=== PATIENT | female | born 1940 | race Caucasian/White ===

== ENCOUNTER → 2016-10-24 | Outpatient (CLI) | payer OTHER ==
[~2016-10-24] MED LIST: AMIO200T4 PO; CEPH500C2 PO; CIPR1TAB11 PO; CLBPO15 TOP; CLOP1TAB15 PO; ENOX30IN4 SQ; FURO-85 PO; GARL400T4 PO; HMLI7525 SC; LABE100T23 PO; LABE300T PO; LEVO50TA6 PO; MAGN400T6 PO; MULT-506 PO; OMEG10007 PO; POTA20TA16 PO; SNTONWC TOP; TRMO115 TOP; VITA400C15 PO; VNTHFA/IN INH; XRL10 PO; ZNTT/150 PO
[2016-10-24 10:42] LABS: BASO % 0.7 %; BASO ABS # 0.05 K/uL (0-0.2); COMPLETE YES; HEMATOCRIT 42.2 % (37-47); IG% 0.1 %; LYMPH % 25.4 %; LYMPH ABS # 1.91 K/uL (1.2-3.4); MEAN CELL VOLUME 96.6 fL (80-100); MEAN CORPUSCULAR HEMOGLOBIN 32.3 pg (25-34); MEAN CORPUSCULAR HGB CONC 33.4 g/dl (32-36); MONO % 7.3 %; NEUT % 61.5 %; PLATELET COUNT 238 K/uL (130-400); RED BLOOD COUNT 4.37 M/uL (4.2-5.4); WHITE BLOOD COUNT 7.53 K/uL (4.8-10.8)
[2016-10-24 10:55] LABS: ALT/SGPT 28 U/L (12-78); BLOOD UREA NITROGEN 26 mg/dl (7-18); BUN/CREATININE RATIO 16.5 (10-20); CALCIUM 8.8 mg/dl (8.5-10.1); CARBON DIOXIDE 30 mmol/L (21-32); CHLORIDE 104 mmol/L (98-107); GLUCOSE 153 mg/dl (70-99); POTASSIUM 4.5 mmol/L (3.5-5.1); SODIUM 140 mmol/L (136-145)
[2016-10-24 11:06] LABS: ALB/GLOB RATIO 1.1 (0.9-2); ALKALINE PHOSPHATASE 112 U/L (45-117); AST/SGOT 10 U/L (15-37); CHOLESTEROL 354 mg/dl (0-200); CHOLESTEROL/HDL RATIO 5.3; HDL CHOLESTEROL 67 mg/dl; LDL CHOLESTEROL CALCULATED 257 mg/dl; TRIGLYCERIDES 148 mg/dl (0-150); VERY LOW DENSITY LIPOPROT CALC 30 mg/dl
[2016-10-24 11:38] LABS: ESTIMATED AVERAGE GLUCOSE 146 mg/dl; HA1C FLAG Normal (Normal)
== END | disposition home or self-care (01) ==
LOC: C.LAB1850 09:40
PROVIDERS: ATTEND Internal Medicine
DX: Z00.00 Encounter for general adult medical examination without abnormal findings (principal); I10 Essential (primary) hypertension; E11.9 Type 2 diabetes mellitus without complications; E78.5 Hyperlipidemia, unspecified; E03.9 Hypothyroidism, unspecified; I42.9 Cardiomyopathy, unspecified; R00.1 Bradycardia, unspecified

== ENCOUNTER → 2017-05-08 | Outpatient (CLI) | payer OTHER ==
[2017-05-08 12:58] LABS: ALT/SGPT 25 U/L (12-78); AST/SGOT 14 U/L (15-37); BLOOD UREA NITROGEN 30 mg/dl (7-18); BUN/CREATININE RATIO 17.6 (10-20); CALCIUM 8.9 mg/dl (8.5-10.1); CARBON DIOXIDE 28 mmol/L (21-32); CHLORIDE 108 mmol/L (98-107); GLUCOSE 95 mg/dl (70-99); POTASSIUM 4.4 mmol/L (3.5-5.1); SODIUM 143 mmol/L (136-145)
[2017-05-08 13:06] LABS: ESTIMATED AVERAGE GLUCOSE 157 mg/dl; HA1C FLAG Normal (Normal)
[2017-05-08 13:09] LABS: ALB/GLOB RATIO 0.9 (0.9-2); ALKALINE PHOSPHATASE 97 U/L (45-117); CHOLESTEROL 297 mg/dl (0-200); CHOLESTEROL/HDL RATIO 6.2; HDL CHOLESTEROL 48 mg/dl; LDL CHOLESTEROL CALCULATED 214 mg/dl; TRIGLYCERIDES 176 mg/dl (0-150); VERY LOW DENSITY LIPOPROT CALC 35 mg/dl
[2017-05-08 13:11] LABS: BASO % 0.4 %; BASO ABS # 0.03 K/uL (0-0.2); COMPLETE YES; EOS % 3.5 %; HEMATOCRIT 41.5 % (37-47); IG% 0.1 %; LYMPH % 24.9 %; LYMPH ABS # 1.87 K/uL (1.2-3.4); MEAN CELL VOLUME 99.8 fL (80-100); MEAN CORPUSCULAR HEMOGLOBIN 32.2 pg (25-34); MEAN CORPUSCULAR HGB CONC 32.3 g/dl (32-36); MEAN PLATELET VOLUME 10.9 fL (7.4-10.4); MONO % 7.4 %; NEUT % 63.7 %; PLATELET COUNT 261 K/uL (130-400); RED BLOOD COUNT 4.16 M/uL (4.2-5.4); WHITE BLOOD COUNT 7.52 K/uL (4.8-10.8)
== END | disposition home or self-care (01) ==
LOC: C.LABPBG 07:44
PROVIDERS: ATTEND Internal Medicine
DX: E78.5 Hyperlipidemia, unspecified (principal); I42.9 Cardiomyopathy, unspecified; E03.9 Hypothyroidism, unspecified; N18.2 Chronic kidney disease, stage 2 (mild); E11.9 Type 2 diabetes mellitus without complications

== ENCOUNTER → 2017-05-19 | Day surgery (SDC) | payer OTHER ==
[2017-05-17 08:17] VITALS: BMI 41.0
[~2017-05-19] VITALS: Ht 162.6 cm; Wt 109.1 kg
[2017-05-19] VITALS (8 sets, daily range): BP systolic 107–158; BP diastolic 64–88; PULSE 68–84; TEMP 36.5–37.4; O2SAT 92–97; Ht 162.6 cm; Wt 109.1 kg
[~2017-05-19] MED LIST changes: +CEFAZOLIN 2000 MG/60 ML D5W 60 ML IV SCH; -ENOX30IN4 SQ; +FENTANYL CITRATE INJ 50 MCG/1 ML 2 ML VIAL ONE; +HEPARIN SOD (PORCINE) 1000 UNIT/ML 10 ML VIAL ONE; +IODIXANOL (VISIPAQUE) 270 MG/ML 150ML FLUSH ONE; -LABE300T PO; +LIDOCAINE HCL 1% 20 ML VIAL INJ ONE; +MIDAZOLAM HCL 1 MG/ML 2ML VIAL ONE; +SODIUM BICARBONATE IV SCH; +SODIUM CHLORIDE 0.9% 1000ML 1,000 ML IV SCH; +WATER IV SCH; +[UNRECOGNIZED DRUG - OTHER] IV SCH
--- NOTE | 2017-05-19 07:14 | History and Physical ---
History & Physical Date of Service May 19, 2017. History & Physical CC: Severe right lower extremity claudication HPI: Mrs. Barry states that while ambulating, she develops a very tight sensation in her right calf, which causes her to be unable to take another step. She states that this occurs after walking approximately 1 aisle at the grocery store and that it occurred walking into my office from the parking lot. She says she is unable to walk even an entire block before having to stop and rest her leg. She denies any tissue loss or rest pain. She denies any symptoms in her left leg. Additionally, when using her left arm above her head , such as to style her hair, she has noticed a severe tiredness which comes on in her left arm. If her arm is down and she is utilizing it, it does not appear to be as significant of a problem; but the patient is right-handed, which means that she uses her left arm for very few things. She denies any symptoms of cerebrovascular insufficiency. She also denies any symptoms of transient ischemic attack, including unilateral vision changes or transient blindness. She also denies any unilateral weakness, numbness or tingling in her extremities. She denies any facial droop or difficulty or inability to speak or swallow. She denies any history of previous stroke and denies any history of vascular surgery in the past. She does admit to some bilateral lower extremity edema and vein problems as well. She had undergone bilateral CEA's earlier this year Imaging performed prior to today's appointment at the [facility] did demonstrate a significant stenosis of her right distal SFA with a right RYLIE of 0.58 in comparison to her left leg, which was 0.84. Patient denies headaches, fevers, chills, dizziness, chest pain, shortness of breath, abdominal pain, nausea, vomiting, diarrhea, constipation, dysuria, hematuria, rest pain or ulceration. HER ALLERGIES INCLUDE DIABETIC TABS, LIPITOR AND MORPHINE. Her home medications are reconciled in the chart and include the following: Amiodarone, fish oil, garlic, Humalog, labetalol, magnesium oxide, multivitamins , Plavix, potassium chloride, vitamin E and Xarelto. Her past medical history is positive for diabetes mellitus, hypercholesterolemia , coronary artery disease, superficial thrombophlebitis, atrial flutter, peripheral vascular disease, aortic valve disorder, cardiomyopathy, chronic kidney disease stage II, peripheral neuropathy, gastroesophageal reflux, hypertension, low-back pain, mitral regurgitation, PVCs, congestive heart failure. Her past surgical history is positive for appendectomy, cataract surgery, section, cholecystectomy, hysterectomy, oophorectomy bilateral, and cardiac catheterization as well as electrical cardioversion. Her family history is positive for diabetes and heart disease in her mother and rectal cancer in her brother. Her social history is negative for tobacco, alcohol or drug use. Her review of systems is negative for fatigue, fever, sweats, weight loss. She does admit exercise intolerance due to her right leg discomfort. She denies vision changes or photophobia, ear pain, sinus problems or sore throat, cough, shortness of breath, hemoptysis, chest pain, palpitations or syncope. She does admit mild bilateral lower extremity edema. She denies abdominal pain, nausea, vomiting, diarrhea or constipation, muscle weakness, headaches, dizziness, numbness or seizures. On physical examination, her vital signs today were as follows: A blood pressure of 104/78 in the left arm, 142/68 in the right arm, heart rate of 60, oxygen saturation of 98% on room air. Patient is 66 inches tall and weighs 105 kg. Constitutional: A healthy-appearing, well-nourished, well-developed elderly female in no acute distress. She ambulates without assistance and is active, alert and oriented x4 with normal recent and remote memory. Her head is normocephalic and atraumatic. EOMI. ENMT: No hearing loss, rhinorrhea or pharyngeal erythema. Her neck is supple and nontender with a midline trachea without masses or crepitus. Her lung exam demonstrates no dyspnea. Lungs are clear to auscultation bilaterally, although are somewhat decreased throughout. Her cardiovascular exam demonstrates a nondisplaced apical impulse with a regular rate and rhythm with a systolic ejection murmur. Her peripheral pulses are full and equal in all extremities unless otherwise noted. Specifically, they are normal in her right brachial, radial, ulnar and her bilateral femoral. Her left brachial is +1. Her left radial is +1 and her ulnar is nonpalpable on the left. She does have brisk capillary refill in her upper extremities, full, equal strength and no sign of distal ischemia. Her lower extremities demonstrate nonpalpable DP pulses. She has a faint +1 PT on the right and a +2 PT on the left. She has brisk capillary refill to both feet and no sign of distal ischemia at this time. Her abdomen is soft and nontender with normoactive bowel sounds in all 4 quadrants without guarding or rebound. There is no flank or CVA tenderness. I am unable to appreciate any pulsatile mass. Patient does demonstrate bilateral carotid bruits with no abdominal or femoral bruits noted. Musculoskeletal exam demonstrates normal tone and strength for age. Her bilateral upper extremities demonstrate no cyanosis, edema, clubbing, varicosities or ulcers. Her bilateral lower extremities do demonstrate +1 edema. She has multiple varicosities. There is no erythema from her cord or warmth noted. There are no ulcerations. Neurologically, she has briskly intact cranial nerves and grossly intact sensation. ASSESSMENT: 1. Peripheral arterial disease with claudication of the right leg. 2. 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 PLAN: Patient is admitted for a right lower extremity arteriogram with possible intervention. I have discussed the risks options and benefits of the procedure with the patient. The patient understands the risks options and benefits and agrees to the procedure.
--- NOTE | 2017-05-19 07:15 | Procedure Note ---
Pre-Mod Sedation Assessment General Date of Moderate Sedation: May 19, 2017. Pre-Sedation Airway Assessment Oral Cavity: Dentures Smoking Status: Never Smoker Mallampati Classification: Class I ASA Classification: Class III Notes The planned sedation has been discussed with the patient and consent obtained. I have identified the patient, determined the appropriateness of sedation and have assessed the patient immediately prior to the procedure. All medicine(s) and interventions are by my order.
--- NOTE | 2017-05-19 08:38 | [facility] Post Operative Brief Note ---
Immediate Operative Summary Operative Date May 19, 2017. Pre-Operative Diagnosis Malfunctioning right upper arm fistula Post-Operative Diagnosis Same Procedure(s) Performed Right upper arm fistulogram SENIOR SCRUM MASTER peripheral venous Moderate conscious sedation (5887 - 5684) Surgeon Bhavana House Mother Surgeon(s) none Estimated Blood Loss 3cc Findings Good thrill, no residual stenosis Specimens none Anesthesia Local with sedation Complication(s) None Disposition
[2017-05-19 08:44] LABS: BUN/CREATININE RATIO 14.6 (10-20); CREATININE 1.6 mg/dl (0.60-1.20)
--- NOTE | 2017-05-19 10:14 | [facility] Post Operative Brief Note ---
Immediate Operative Summary Operative Date May 19, 2017. Pre-Operative Diagnosis Malfunctioning right upper arm fistula Post-Operative Diagnosis Same Procedure(s) Performed Right upper arm fistulogram MOTORIZED [place] peripheral venous Moderate conscious sedation (5607 - 5841) Surgeon Bhavana Chip Tester Surgeon(s) none Estimated Blood Loss 3cc Findings ant tib artery occluded on right Specimens none Anesthesia Local Complication(s) None Disposition
--- NOTE | 2017-05-19 10:17 | Discharge Instructions ---
Discharge Instructions Date of Service May 19, 2017. Visit Reason for Visit: Rle Peripheral Artery Disease W/Claudication Discharge Discharge Diagnosis / Problem: Severe right leg claudication Discharge Goals Goal(s): Diagnostic testing Activity Recommendations Activity Limitations: per Instructions/Follow-up section Anesthesia . Post Anesthesia Instructions: If you have had General Anesthesia or IV Sedation: * Do not drive today. * Resume driving when surgeon permits. * Do not make important decisions or sign legal documents today. * Call surgeon for: 1. Temperature elevations greater than 101 degrees F. 2. Uncontrollable pain. 3. Excessive bleeding. 4. Persistent nausea and vomiting. 5. Medication intolerance (nausea, vomiting or rash). * For nausea and vomiting use only clear liquids such as: tea, soda, bouillon until nausea subsides, then gradually increase diet as tolerated. * If you have any concerns or questions, call your surgeon's office. If physician is unavailable and it is an emergency, call 911 or go to the nearest emergency room. . Instructions / Follow-Up Instructions / Follow-Up Call [phone] to schedule a follow up appointment if one not already scheduled. SPECIAL CARE INSTRUCTIONS: Medications: * Continue to take your medications as directed. If you have been given a prescription for Plavix, please fill it immediately and take as directed. Incision Care: * Your puncture site may have some bruising and minor swelling for about one week. * You will have a small dressing covering your puncture site. You may remove the dressing after 24 hours and shower. You may let the warm soapy water run over it, but be sure to dry the puncture site well and keep it dry. * DO NOT IMMERSE THE INCISION IN A TUB/POOL/etc. UNTIL HEALED. * Puncture sites should be kept covered with a band-aid until it begins to heal. Restrictions: * Depending on whether you leg or arm was punctured to access the arteries, you will be required to lay flat, hold your arm still, or both, for about 4 hours after the procedure to prevent bleeding. * Limit your activity for the first 48 hours. You may walk and go up and down steps. Avoid excessive bending or movement at the puncture site. Possible Complications: * Excessive Swelling - after blood flow is improved you may notice increased swelling in the lower legs. This is a normal response. This usually depends on the amount of blockages in the leg, how long they have been there prior to your procedure and how much blood flow was restored. Elevating your legs will help to improve this. Please notify our office ([phone] ) if the swelling does not go away after lying in bed overnight. * Infection/Drainage/Bleeding - Drainage or bleeding from the puncture site should be minimal. If you have excessive bleeding or drainage, call our office ([phone]) right away. * Pain - You may experience some mild pain or soreness at your puncture site. If your pain does not improve, please contact our office ([phone]). Call your doctor and seek emergent treatment if you develop: * Temperature above 101 degrees * Any fever or chills * Any redness or purulent drainage from the puncture site * Any new dusky/blue colored toes or feet with coolness or sharp or aching pain. SKIN IRRITATION: * You may experience some redness and/or swelling in the area where radiation was administered. If any skin irritation occurs, please contact your family physician. FOLLOW UP VISIT: Keep any scheduled doctor appointments. Diet Recommendations Recommended Home Diet: resume previous diet Procedures Procedures Performed: Right Lower Extremity Angiogram, Mechanical Closure Left Femoral Artery Pending Studies Studies pending at discharge: no Medical Emergencies . Who to Call and When: Medical Emergencies: If at any time you feel your situation is an emergency, please call 911 immediately. . Non-Emergent Contact Non-Emergency issues call your: Surgeon . . "Provider Documentation" section prepared by Anthony Bateman. .
--- NOTE | 2017-05-19 10:28 | [facility] Operative Report ---
Operative Report Operative Date May 19, 2017. Pre-Operative Diagnosis right lower extremity claudication Post-Operative Diagnosis same Procedure(s) Performed Right Lower Extremity Angiogram, Mechanical Closure Left Femoral Artery Surgeon Dr. Bateman Database Specialist Surgeon(s) none Estimated Blood Loss 5 ml Findings right ant tibial artery occlusion Specimens none Anesthesia Local Complication(s) None Disposition Indications This is a 76-year-old white female who has significant claudication of her right lower extremity at 100 feet. She had noninvasive testing which showed indices of 0.58 of the right lower extremity. Arteriography and possible intervention was recommended. She understood the risks options and benefits and agreed to go ahead with this procedure. Description of Procedure The patient was taken to the angiogram suite and placed n the supine position. The groins were then prepped and draped in a sterile manner. Local anesthetic was administered to the left groin. A percutaneous puncture was made of the left common femoral artery. An 035 wire was inserted followed by a 5 [place] sheath. Using a rim catheter and an .035 Glidewire the right iliac system was cannulated from left side. The rim catheter was passed down to the external iliac artery origin. Hand injections were then performed of the right lower extremity. These showed the external iliac, common femoral, profunda femoral, and superficial femoral arteries to be patent. There is very mild atherosclerotic changes throughout with no significant narrowing. The superficial femoral artery and popliteal artery were patent in their entirety again with some mild atherosclerotic changes but no significant narrowing. 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 The peroneal and posterior tibial arteries were patent with the posterior tibial artery filling the foot directly and the peroneal artery filling the foot via collaterals. I cannot see any reconstitution of the anterior tibial artery on the right side. No significant lesions were noted to undergo any intervention at this time. The rim catheter was then pulled back and advanced into the aorta. Aortogram and an iliac angio was performed. This showed again the aorta and bilateral common iliac arteries to be patent with mild atherosclerotic changes. The catheter was then removed. Hand injection was done through the sheath on the left side showing the puncture to be anterior on the common femoral artery. A star closure device was then used to close the puncture site on the left side. Adequate hemostasis was noted. Sterile dressings were applied and the puncture and the patient left the angiogram suite in good condition and tolerated the procedure well. I attest to the content of the Intraoperative Record and any orders documented therein. Any exceptions are noted below.
== END | disposition home or self-care (01) ==
LOC: C.ACU 07:03
PROVIDERS: ATTEND Surgery Vascular Surgery
DX: I73.9 Peripheral vascular disease, unspecified (principal); I13.0 Hypertensive heart and chronic kidney disease with heart failure and stage 1 through stage 4 chronic kidney disease, or unspecified chronic kidney disease; E11.9 Type 2 diabetes mellitus without complications; E78.00 Pure hypercholesterolemia, unspecified; I25.10 Atherosclerotic heart disease of native coronary artery without angina pectoris; E11.51 Type 2 diabetes mellitus with diabetic peripheral angiopathy without gangrene; N18.2 Chronic kidney disease, stage 2 (mild); I12.9 Hypertensive chronic kidney disease with stage 1 through stage 4 chronic kidney disease, or unspecified chronic kidney disease; K21.9 Gastro-esophageal reflux disease without esophagitis; I50.9 Heart failure, unspecified; Z79.899 Other long term (current) drug therapy; Z79.4 Long term (current) use of insulin; Z79.02 Long term (current) use of antithrombotics/antiplatelets

== ENCOUNTER 2017-10-10 02:56 | Inpatient (IN) | payer OTHER ==
[~2017-10-10] VITALS: Ht 165.1 cm; Wt 110.1 kg
[2017-10-10] VITALS (7 sets, daily range): BP systolic 110–172; BP diastolic 72–100; PULSE 68–82; TEMP 36.5–37.2; O2SAT 94–97; Ht 165.1 cm; Wt 110.1 kg
[~2017-10-10 02:56] MED LIST changes: -CEFAZOLIN 2000 MG/60 ML D5W 60 ML IV SCH; -CLBPO15 TOP; -FENTANYL CITRATE INJ 50 MCG/1 ML 2 ML VIAL ONE; -HEPARIN SOD (PORCINE) 1000 UNIT/ML 10 ML VIAL ONE; -HMLI7525 SC; -IODIXANOL (VISIPAQUE) 270 MG/ML 150ML FLUSH ONE; -LABE100T23 PO; +LABE100T3 PO; -LEVO50TA6 PO; -LIDOCAINE HCL 1% 20 ML VIAL INJ ONE; -MAGN400T6 PO; -MIDAZOLAM HCL 1 MG/ML 2ML VIAL ONE; -MULT-506 PO; -OMEG10007 PO; -POTA20TA16 PO; -SNTONWC TOP; -SODIUM BICARBONATE IV SCH; -SODIUM CHLORIDE 0.9% 1000ML 1,000 ML IV SCH; -TRMO115 TOP; -VNTHFA/IN INH; -WATER IV SCH; -ZNTT/150 PO; -[UNRECOGNIZED DRUG - OTHER] IV SCH
[2017-10-10] MEDS ORDERED: FUROSEMIDE 40 MG/4 ML VIAL IV STA (03:16)
--- NOTE | 2017-10-10 03:16 | EMERGENCY ROOM VISIT NOTE ---
History Report prepared by Liliam: Santhosh Chacon Under the Supervision of: Dr. Dorina Lacey D.O. First contact with patient: 02:58 Chief Complaint: CHEST PAIN Stated Complaint: CHEST PAIN History of Present Illness The patient is a 77 year old female who presents to the Emergency Room with complaints of sharp chest pain that began 3 hours ago. She rates her pain an 8/ 10 in severity. She has a past medical history of bronchitis that occurred a couple weeks ago and resolved. The patient went to sleep last night about 6 hours ago. She suddenly began to have this chest pain with shortness of breath. Her pain is radiating down her left arm. She is not normally on oxygen at home and she was hypoxic on arrival on room air at 80% per nursing staff. On 4L of oxygen, her saturation kaiser to the 90's. She notes that she was completely at baseline prior to going to bed. She is on Lasix and Xarelto and has been taking them normally without missing any doses. She denies any abnormal swelling to her extremities. Source of History: patient Onset: 3 hours ago Position: chest Symptom Intensity: 8/10 Quality: sharp Timing: constant Associated Symptoms: + SOB Note: Her pain is radiating down her left arm. She denies any abnormal swelling in her extremities. Review of Systems See HPI for pertinent positives & negatives. A total of 10 systems reviewed and were otherwise negative. Past Medical & Surgical Medical Problems: (1) Acute kidney failure (2) Atrial flutter (3) Carotid stenosis, bilateral (4) Carotid stenosis, right (5) Cellulitis (6) Congestive heart failure (7) Coronary artery disease (8) Diabetes (9) H/O acute myocardial infarction (10) HTN (hypertension) (11) L1 vertebral fracture Family History FH: myocardial infarction MOTHER Social History Smoking Status: Never Smoker Alcohol Use: none Drug Use: none Marital Status: Housing Status: lives alone Occupation Status: retired Current/Historical Medications Scheduled Amiodarone HCl (Amiodarone HCl), 200 MG PO QPM Clopidogrel Bisulfate (Clopidogrel), 75 MG PO QPM Collagenase (Santyl), 1 APPLN TOP UD Fish Oil ([place]-3), 1 CAP PO QPM Furosemide (Furosemide), 20 MG PO QAM Garlic (Garlic), 1,000 MG PO QAM Insulin Lispro 75/25 (Humalog Mix 75/25), 1 DOSE SC AMPM Labetalol HCl (Labetalol HCl), 75 MG PO QPM Levothyroxine Sodium (Levothyroxine Sodium), 50 MCG PO QAM Magnesium Oxide (Mag-Ox), 400 MG PO QPM Potassium Ext Rel (Klor-Con), 20 MEQ PO QAM Rivaroxaban (Xarelto), 15 MG PO QAM Vitamin E (Vitamin E 400 Iu), 400 INTER.UNIT PO QAM Scheduled PRN Albuterol Hfa (Ventolin Hfa), 2 PUFFS INH Q6H PRN for Bronchitis Episodes Ranitidine (Zantac), 150 MG PO BID PRN for Heartburn Triamcinolone Acet (Triamcinolone Acetonide), 1 APPLN TOP BID PRN for Rash Allergies Coded Allergies: Adhesives (Verified Allergy, Unknown, REDNESS AND IRRITATION FROM PAIN PATCH, TAPE, 05/19/17) Latex (Verified Allergy, Unknown, SEE COMMENT, 05/19/17) PT QUESTIONS ALLERGY TO LATEX DUE TO ADHESIVES ALLERGY Morphine (Verified Allergy, Unknown, swelling nausea vomiting, 05/19/17) Olmesartan (Verified Allergy, Unknown, UNKNOWN, 05/19/17) Aspirin (Verified Adverse Reaction, Mild, GI SYMPTOMS, 05/19/17) HX BLEEDING ULCER-STOMACH IRRITATION WITH ASPIRIN Ezetimibe (Verified Adverse Reaction, Mild, MUSCLE ACHES, 05/19/17) PER PATIENT Lisinopril (Verified Adverse Reaction, Unknown, LIGHTHEADED AND DIZZY, 05/19) Pioglitazone (Verified Adverse Reaction, Unknown, DIARRHEA NAUSEA, 05/19/17) Statins (Verified Adverse Reaction, Unknown, myalgias and weakness, 05/19/17 ) Physical Exam Vital Signs Date Time Temp Pulse Resp B/P (MAP) Pulse Ox O2 Delivery O2 Flow Rate FiO2 10/10/17 04:35 88 18 147/71 93 Nasal Cannula 4.0 10/10/17 03:32 75 20 196/88 95 Nasal Cannula 4.0 10/10/17 03:15 86 10/10/17 03:06 93 Nasal Cannula 4.0 10/10/17 03:06 93 Nasal Cannula 4.0 10/10/17 03:06 36.8 100 24 196/88 93 Nasal Cannula 4.0 Physical Exam General: Appears to be in respiratory distress with audible rales. HEENT: Head - normocephalic and atraumatic Pupils are equal, round, and reactive to light. Extraocular eye muscles are intact, and sclera are anicteric. Nose - moist nasal mucosa without discharge. Mouth - moist buccal mucosa. Oropharynx is nonerythematous and there is no tonsillar exudate or edema noted. Neck: Supple; no JVD, nuchal rigidity, cervical lymphadenopathy. Heart: Regular rate and rhythm. There is a normal S1 and S2 with no murmurs, clicks, or gallops appreciated. Lungs: Rales and wheezing throughout all lung humphries. Abdomen: Soft, completely nontender, nondistended, with good bowel sounds. There are no palpable pulsatile masses or hepatosplenomegaly. There is no guarding, rigidity, or rebound noted. Extremities: No evidence of cyanosis or clubbing. Trace pedal edema bilaterally. There are easily palpable peripheral pulses. Skin: warm and dry with good turgor and no rashes. Medical Decision & Procedures ER Provider Diagnostic Interpretation: Radiology results as stated below per me: CHEST X-RAY 1 VIEW: Moderate pulmonary edema, cardiomegaly, no infiltrates Laboratory Results 10/10/17 02:50 Red Blood Count 4.25, Mean Corpuscular Volume 99.1, Mean Corpuscular Hemoglobin 33.4, Mean Corpuscular Hemoglobin Concent 33.7, Mean Platelet Volume 11.4, Neutrophils (%) (Auto) 55.3, Lymphocytes (%) (Auto) 31.0, Monocytes (%) (Auto) 8.9, Eosinophils (%) (Auto) 4.1, Basophils (%) (Auto) 0.4, Neutrophils # (Auto) 6.14, Lymphocytes # (Auto) 3.43, Monocytes # (Auto) 0.99, Eosinophils # (Auto) 0.45, Basophils # (Auto) 0.04 10/10/17 02:50 Test 10/10/17 02:50 White Blood Count 11.08 K/uL (4.8-10.8) Red Blood Count 4.25 M/uL (4.2-5.4) Hemoglobin 14.2 g/dL (12.0-16.0) Hematocrit 42.1 % (37-47) Mean Corpuscular Volume 99.1 fL (80-100) Mean Corpuscular Hemoglobin 33.4 pg (25-34) Mean Corpuscular Hemoglobin Concent 33.7 g/dl (32-36) Platelet Count 261 K/uL (130-400) Mean Platelet Volume 11.4 fL (7.4-10.4) Neutrophils (%) (Auto) 55.3 % Lymphocytes (%) (Auto) 31.0 % Monocytes (%) (Auto) 8.9 % Eosinophils (%) (Auto) 4.1 % Basophils (%) (Auto) 0.4 % Neutrophils # (Auto) 6.14 K/uL (1.4-6.5) Lymphocytes # (Auto) 3.43 K/uL (1.2-3.4) Monocytes # (Auto) 0.99 K/uL (0.11-0.59) Eosinophils # (Auto) 0.45 K/uL (0-0.5) Basophils # (Auto) 0.04 K/uL (0-0.2) RDW Standard Deviation 46.3 fL (36.4-46.3) RDW Coefficient of Variation 12.8 % (11.5-14.5) Immature Granulocyte % (Auto) 0.3 % Immature Granulocyte # (Auto) 0.03 K/uL (0.00-0.02) Anion Gap 6.0 mmol/L (3-11) Est Creatinine Clear Calc Drug Dose 33.7 ml/min Estimated GFR () 35.1 Estimated GFR (Non- 30.3 BUN/Creatinine Ratio 18.7 (10-20) Calcium Level 8.7 mg/dl (8.5-10.1) Total Bilirubin 0.2 mg/dl (0.2-1) Aspartate Amino Transf (AST/SGOT) 16 U/L (15-37) Alanine Aminotransferase (ALT/SGPT) 26 U/L (12-78) Alkaline Phosphatase 115 U/L (45-117) Total Creatine Kinase 138 U/L (26-192) Creatine Kinase MB 2.4 ng/ml (0.5-3.6) Creatine Kinase MB Ratio 1.7 (0-3.0) Pro-B-Type Natriuretic Peptide 726 pg/ml (0-1800) Total Protein 7.4 gm/dl (6.4-8.2) Albumin 3.2 gm/dl (3.4-5.0) Globulin 4.2 gm/dl (2.5-4.0) Albumin/Globulin Ratio 0.8 (0.9-2) Thyroid Stimulating Hormone (TSH) 8.430 uIu/ml (0.300-4.500) Chemistry Specimen Hemolysis Laboratory results per my review. Medications Administered Medications (Trade) Dose Ordered Sig/Sedrick Route Start Time Stop Time Status Last Admin Dose Admin Furosemide (Lasix Inj) 40 mg NOW STAT IV 10/10/17 03:16 10/10/17 03:17 DC 10/10/17 03:26 40 MG Procedure Furosemide 40 mg IV ECG Indication: chest pain Rate (beats per minute): 96 Rhythm: normal sinus Findings: LBBB, T-wave inversion (Deep in I and aVL), no ectopy Comparison ECG Date: 17 Aug 2016 Change: T-wave inversions are new compared to old. ED Course 0258: Past medical records reviewed. The patient was evaluated in room B9. A complete history and physical exam was performed. The patient was hypoxic upon arrival here in the emergency department. She was placed on supplemental oxygen. A twelve-lead EKG was obtained as described above. Laboratory studies were drawn. A portable chest x-ray was obtained. 0316: Ordered Lasix Inj 40 mg IV 0328: The patient's chest pain is now gone and she is feeling better. 0438: Upon reevaluation, I discussed findings and results with the patient. She verbalized agreement of the treatment plan. I spoke with Dr. Harmon with Dr. Dan of the [facility]. The patient will be evaluated for further management and care. 0509: The patient informed the hospitalist that she is now having back pain. We will get a CT of her chest to rule out an aortic dissection. Medical Decision The patient is a 77 year old female who presents to the ED with chest pain. Differential diagnosis includes CHF, bronchitis, flash pulmonary edema, pneumonia, aortic dissection, and cardiac ischemia. Laboratory Results: White blood cell count 11, normal H&H, BUN 30, creatinine 1.6 which is baseline , glucose 204, LFTs normal, BNP 726, negative cardiac enzymes This is a 77-year-old female patient who presents to the emergency department after a sudden onset of shortness of breath with audible rales. The patient then developed chest discomfort. EMS was called. Upon their arrival, the patient O2 saturations in the 80s. She was placed on supplemental oxygen. The patient remained hypoxic here in the emergency department. On physical exam, she had significant Rales and chest x-ray confirmed pulmonary edema. Patient was given IV Lasix. I suggested that we place topical nitroglycerin but the patient described severe side effects from previous episodes of using nitroglycerin and declined this med. The patient's vitals remained stable. I discussed the case with the [facility] hospitalist group and they will evaluate for further management. Medication Reconcilliation Current Medication List: was personally reviewed by me Blood Pressure Screening Patient's blood pressure: Elevated blood pressure Addressed as an inpatient Consults Time Called: [phone] Consulting Physician: Dr. Harmon with Dr. Sy CANSECO Returned Call: [phone] Discussed the patient's case. The patient will be evaluated for further management. Impression Primary Impression: Pulmonary edema Additional Impressions: Hypoxia Chest pain Critical Care I have personally spent greater than 30 minutes of critical care time in the direct management of this patient. This includes bedside care, interpretation of diagnostic studies, and testing, discussion with consultants, patient, and family members, and other required patient management activities. This 30 minutes is in excess of all separately billable procedures. Scribe Attestation The scribe's documentation has been prepared under my direction and personally reviewed by me in its entirety. I confirm that the note above accurately reflects all work, treatment, procedures, and medical decision making performed by me. Departure Information Dispostion Being Evaluated By Hospitalist Referrals Boby Reddy M.D. (PCP) Patient Instructions My [facility] Problem Qualifiers Primary Impression: Pulmonary edema Chronicity: acute Qualified Codes: J81.0 - Acute pulmonary edema Additional Impressions: Chest pain Chest pain type: precordial pain Qualified Codes: R07.2 - Precordial pain
[2017-10-10 03:17] LABS: BASO % 0.4 %; BASO ABS # 0.04 K/uL (0-0.2); EOS % 4.1 %; EOS ABS # 0.45 K/uL (0-0.5); HEMATOCRIT 42.1 % (37-47); HEMOGLOBIN 14.2 g/dL (12.0-16.0); IG# 0.03 K/uL (0.00-0.02); LYMPH ABS # 3.43 K/uL (1.2-3.4); MEAN CELL VOLUME 99.1 fL (80-100); MEAN CORPUSCULAR HEMOGLOBIN 33.4 pg (25-34); MEAN CORPUSCULAR HGB CONC 33.7 g/dl (32-36); MEAN PLATELET VOLUME 11.4 fL (7.4-10.4); MONO % 8.9 %; MONO ABS # 0.99 K/uL (0.11-0.59); NEUT % 55.3 %; NEUT ABS # 6.14 K/uL (1.4-6.5); PLATELET COUNT 261 K/uL (130-400); RED CELL DISTRIBUTION WIDTH CV 12.8 % (11.5-14.5); RED CELL DISTRIBUTION WIDTH SD 46.3 fL (36.4-46.3); WHITE BLOOD COUNT 11.08 K/uL (4.8-10.8)
[2017-10-10] MEDS ORDERED: CRD200 PO (03:23)
[2017-10-10] MEDS ORDERED: XRL15 PO (03:23)
[2017-10-10] MEDS ORDERED: LBT300 PO (03:23)
[2017-10-10] MEDS ORDERED: LSX20 PO (03:23)
[2017-10-10] MEDS ORDERED: PLV75 PO (03:23)
[2017-10-10] MEDS ORDERED: GARL10007 PO (03:30)
[2017-10-10] MEDS ORDERED: VITA400C3 PO (03:30)
[2017-10-10 03:39] LABS: ALBUMIN 3.2 gm/dl (3.4-5.0); ALKALINE PHOSPHATASE 115 U/L (45-117); ALT/SGPT 26 U/L (12-78); AST/SGOT 16 U/L (15-37); BLOOD UREA NITROGEN 30 mg/dl (7-18); CALCIUM 8.7 mg/dl (8.5-10.1); CARBON DIOXIDE 24 mmol/L (21-32); CKMB 2.4 ng/ml (0.5-3.6); CREATININE 1.61 mg/dl (0.60-1.20); GLUCOSE 204 mg/dl (70-99); POTASSIUM 3.9 mmol/L (3.5-5.1); SODIUM 137 mmol/L (136-145); TOTAL PROTEIN 7.4 gm/dl (6.4-8.2)
[2017-10-10] MEDS ORDERED: ALBUTEROL HFA 8 GM INHALER INH PRN (05:00)
[2017-10-10] MEDS ORDERED: POLYETHYLENE (MIRALAX) 17 GM PACK PO PRN (05:00)
[2017-10-10] MEDS ORDERED: MAGNESIUM HYDROXIDE SUSP 30 ML UDC PO PRN (05:00)
[2017-10-10] MEDS ORDERED: ACETAMINOPHEN 325 MG TAB PO PRN (05:00)
[2017-10-10] MEDS ORDERED: ALUMINUM/MAGNESIUM/SIMETH (MAALOX MAX) 30 ML UDC PO PRN (05:00)
[2017-10-10] MEDS ORDERED: ONDANSETRON INJ 2 MG/ML 2 ML VIAL IV PRN (05:00)
[2017-10-10] MEDS ORDERED: NITROGLYCERIN 0.4 MG SL PER TAB CHARGE SL PRN (05:00)
[2017-10-10] MEDS ORDERED: RANITIDINE HCL 150 MG TAB PO PRN (05:00)
[2017-10-10] MEDS ORDERED: OPTIRAY 320 IV PRN (05:15)
[2017-10-10] MEDS ORDERED: HMLI7525 SC (05:23)
--- NOTE | 2017-10-10 05:42 | History and Physical ---
History & Physical Date & Time of Service: Oct 10, 2017 at 05:15 Chief Complaint: Chest Pain Primary Care Physician: Boby Reddy M.D. History of Present Illness Source: patient, hospital records The patient is a 77 y/o F who presents with sharp left sided chest pain that began a few hours ago. She says she was trying to use the rest room and felt this pain. She characterizes the pain as sharp and rates it as an 8/10. She was able to sleep for a while and then woke up with sudden shortness of breath. She reports that her pain now radiates under her left shoulder blade. She does not use oxygen at home but was hypoxic when als arrived at about 80%. The pain has improved since being in the ED She reports having a leaky aortic valve Has a history of PAF, for which she is on Xarelto Denies calf tenderness. Denies smoking/ alcohol. Past Medical/Surgical History Medical Problems: (1) Acute kidney failure Status: Resolved (2) Congestive heart failure Status: Resolved (3) Coronary artery disease Status: Chronic (4) Diabetes Status: Chronic (5) H/O acute myocardial infarction Status: Resolved (6) HTN (hypertension) Status: Chronic (7) L1 vertebral fracture Status: Resolved Family History FH: myocardial infarction MOTHER Social History Smoking Status: Never Smoker Smokeless Tobacco Use: No Alcohol Use: none Drug Use: none Marital Status: Occupational Status: retired Immunizations History of Influenza Vaccine: Unknown History of Tetanus Vaccine?: Unknown History of Pneumococcal: Unknown History of Hepatitis B Vaccine: Unknown Multi-Drug Resistant Organisms History of MDRO: No Allergies Coded Allergies: Adhesives (Verified Allergy, Unknown, REDNESS AND IRRITATION FROM PAIN PATCH, TAPE, 05/19/17) Latex (Verified Allergy, Unknown, SEE COMMENT, 05/19/17) PT QUESTIONS ALLERGY TO LATEX DUE TO ADHESIVES ALLERGY Morphine (Verified Allergy, Unknown, swelling nausea vomiting, 05/19/17) Olmesartan (Verified Allergy, Unknown, UNKNOWN, 05/19/17) Aspirin (Verified Adverse Reaction, Mild, GI SYMPTOMS, 05/19/17) HX BLEEDING ULCER-STOMACH IRRITATION WITH ASPIRIN Ezetimibe (Verified Adverse Reaction, Mild, MUSCLE ACHES, 05/19/17) PER PATIENT Lisinopril (Verified Adverse Reaction, Unknown, LIGHTHEADED AND DIZZY, 05/19) Pioglitazone (Verified Adverse Reaction, Unknown, DIARRHEA NAUSEA, 05/19/17) Statins (Verified Adverse Reaction, Unknown, myalgias and weakness, 05/19/17 ) Home Medications Scheduled Amiodarone HCl (Amiodarone HCl), 200 MG PO QPM Clopidogrel Bisulfate (Clopidogrel), 75 MG PO QPM Collagenase (Santyl), 1 APPLN TOP UD Fish Oil ([place]-3), 1 CAP PO QPM Furosemide (Furosemide), 20 MG PO QAM Garlic (Garlic), 1,000 MG PO QAM Insulin Lispro 75/25 (Humalog Mix 75/25), 1 DOSE SC AMPM Labetalol HCl (Labetalol HCl), 75 MG PO QPM Levothyroxine Sodium (Levothyroxine Sodium), 50 MCG PO QAM Magnesium Oxide (Mag-Ox), 400 MG PO QPM Potassium Ext Rel (Klor-Con), 20 MEQ PO QAM Rivaroxaban (Xarelto), 15 MG PO QAM Vitamin E (Vitamin E 400 Iu), 400 INTER.UNIT PO QAM Scheduled PRN Albuterol Hfa (Ventolin Hfa), 2 PUFFS INH Q6H PRN for Bronchitis Episodes Ranitidine (Zantac), 150 MG PO BID PRN for Heartburn Triamcinolone Acet (Triamcinolone Acetonide), 1 APPLN TOP BID PRN for Rash Review of Systems Constitutional: No fever, No chills Eyes: No worsening of vision ENT: No hearing loss Respiratory: + shortness of breath, + dyspnea on exertion, + dyspnea at rest Cardiovascular: + chest pain, No edema, No palpitations Abdomen: No pain, No nausea, No vomiting Genitourinary - Female: No dysuria, No urinary frequency, No urinary urgency Physical Exam Vital Signs Date Time Temp Pulse Resp B/P (MAP) Pulse Ox O2 Delivery O2 Flow Rate FiO2 10/10/17 04:35 88 18 147/71 93 Nasal Cannula 4.0 10/10/17 03:32 75 20 196/88 95 Nasal Cannula 4.0 10/10/17 03:15 86 10/10/17 03:06 93 Nasal Cannula 4.0 10/10/17 03:06 93 Nasal Cannula 4.0 10/10/17 03:06 36.8 100 24 196/88 93 Nasal Cannula 4.0 General Appearance: no apparent distress Eyes: PERRL, EOMI ENT: hearing grossly normal Neck: supple Respiratory/Chest: no accessory muscle use, + decreased breath sounds, + rales Cardiovascular: regular rate, rhythm, no edema Abdomen/GI: normal bowel sounds, non tender, soft Extremities/Musculoskelatal: no pedal edema Neurologic/Psych: respiratory therapy instructor II-XII nml as tested, no motor/sensory deficits, alert, oriented x 3 Diagnostics Laboratory Results Results Past 24 Hours Test 10/10/17 02:50 Range/Units White Blood Count 11.08 4.8-10.8 K/uL Red Blood Count 4.25 4.2-5.4 M/uL Hemoglobin 14.2 12.0-16.0 g/dL Hematocrit 42.1 37-47 % Mean Corpuscular Volume 99.1 80-100 fL Mean Corpuscular Hemoglobin 33.4 25-34 pg Mean Corpuscular Hemoglobin Concent 33.7 32-36 g/dl Platelet Count 261 130-400 K/uL Mean Platelet Volume 11.4 7.4-10.4 fL Neutrophils (%) (Auto) 55.3 % Lymphocytes (%) (Auto) 31.0 % Monocytes (%) (Auto) 8.9 % Eosinophils (%) (Auto) 4.1 % Basophils (%) (Auto) 0.4 % Neutrophils # (Auto) 6.14 1.4-6.5 K/uL Lymphocytes # (Auto) 3.43 1.2-3.4 K/uL Monocytes # (Auto) 0.99 0.11-0.59 K/uL Eosinophils # (Auto) 0.45 0-0.5 K/uL Basophils # (Auto) 0.04 0-0.2 K/uL RDW Standard Deviation 46.3 36.4-46.3 fL RDW Coefficient of Variation 12.8 11.5-14.5 % Immature Granulocyte % (Auto) 0.3 % Immature Granulocyte # (Auto) 0.03 0.00-0.02 K/uL Sodium Level 137 136-145 mmol/L Potassium Level 3.9 3.5-5.1 mmol/L Chloride Level 107 98-107 mmol/L Carbon Dioxide Level 24 21-32 mmol/L Anion Gap 6.0 3-11 mmol/L Blood Urea Nitrogen 30 7-18 mg/dl Creatinine 1.61 0.60-1.20 mg/dl Est Creatinine Clear Calc Drug Dose 33.7 ml/min Estimated GFR () 35.1 Estimated GFR (Non- 30.3 BUN/Creatinine Ratio 18.7 10-20 Random Glucose 204 70-99 mg/dl Calcium Level 8.7 8.5-10.1 mg/dl Total Bilirubin 0.2 0.2-1 mg/dl Aspartate Amino Transf (AST/SGOT) 16 15-37 U/L Alanine Aminotransferase (ALT/SGPT) 26 12-78 U/L Alkaline Phosphatase 115 45-117 U/L Total Creatine Kinase 138 26-192 U/L Creatine Kinase MB 2.4 0.5-3.6 ng/ml Creatine Kinase MB Ratio 1.7 0-3.0 Troponin I < 0.015 0-0.045 ng/ml Pro-B-Type Natriuretic Peptide 726 0-1800 pg/ml Total Protein 7.4 6.4-8.2 gm/dl Albumin 3.2 3.4-5.0 gm/dl Globulin 4.2 2.5-4.0 gm/dl Albumin/Globulin Ratio 0.8 0.9-2 Chemistry Specimen Hemolysis Impression Assessment and Plan This is a 77 y/o F who presents with Chest pain, shortness of breath likely 2/2 CHF exacerbation CHF exacerbation/ Chest pain Echo Lasix 40 mg iv daily AM daily weights I/O Cardio consult Serial Troponin CT chest - due to radiating pain to the back h/o CAD- continue Plavix PAF Continue amiodarone, Xarelto DM 2 Lantus 15 units ISS Accuchecks Hypothyroidism Continue Levothyroxine Check TSH 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 Assessment and Plan: Precordial chest pain/CHF exacerbation/CAD/paroxysmal atrial fibrillation-- The patient will be admitted to telemetry for serial cardiac enzymes, cardiac rhythm monitoring and a 2-D echocardiogram with Dopplers. Already given Lasix in the ED, and will continue Lasix 40 mg IV every morning. Order CT of chest for now without contrast, due to resolution of anterior chest pain but persistence of back pain Continue Plavix, Xarelto, labetalol, potassium and mag oxide Diabetes mellitus-- Continue Humalog mix 75/[address] on Accu-Cheks before meals and at bedtime with NovoLog coverage per scale Hypothyroidism-- Continue levothyroxine sodium 50 g every morning Level of Care Telemetry Advanced Directives Existing Advance Directive: No Existing Living Will: No Existing Power of Charging Crane Operator: No Resuscitation Status FULL RESUSCITATION VTE Prophylaxis VTE Risk Assessment Done? Y/N: Yes Risk Level: Moderate Given or contraindicated: SCD's Social Service Consult None Apply
--- NOTE | 2017-10-10 06:10 | NUR ---
A: PT RECEIVED INTO ROOM S244. PT AMBULATED FROM LITER TO BED WITH MINIMAL ASSISTANCE. GOWN CHANGED, MONITOR APPLIED, VITAL SIGNS OBTAINED. ADMISSION PACKET, CODE WORD, AND FALL AGREEMENT COMPLETED. PT ORIENTED TO ROOM, CALL WRIGHT SYSTEM, HOSPITAL ENVIRONMENT AND UNIT. PT VERBALIZES UNDERSTANDING. CALL WRIGHT WITHIN REACH, CARE CONTINUED BY PRIMARY RN. FAMILY AT BEDSIDE.
[2017-10-10] MEDS ORDERED: GLUCOSE 40% GEL 15 GM TUBE PO PRN (06:30)
[2017-10-10] MEDS ORDERED: GLUCOSE 10 TABS/TUBE PO PRN (06:30)
[2017-10-10] MEDS ORDERED: GLUCAGON FOR INJ 1 MG VIAL SQ PRN (06:30)
[2017-10-10] MEDS ORDERED: DEXTROSE 50% 50 ML SYR IV PRN (06:30)
--- NOTE | 2017-10-10 06:47 | DIAGNOSTIC IMAGING REPORT ---
CHEST ONE VIEW PORTABLE CLINICAL HISTORY: hypoxia dyspnea COMPARISON STUDY: 07/22/2016 FINDINGS: Prominent pulmonary vasculature. Mild cardiomegaly. Diaphragms smooth. IMPRESSION: Congestive heart failure. The above report was generated using voice recognition software. It may contain grammatical, syntax or spelling errors. Electronically signed by: Kyle Villarreal M.D. 10/10/2017 6:46 AM Dictated Date/Time: 10/10/2017 6:45 AM
[2017-10-10] MEDS: LEVOTHYROXINE 50 MCG TAB PO SCH (07:06)
--- NOTE | 2017-10-10 07:22 | DIAGNOSTIC IMAGING REPORT ---
(CHEST) THORAX WITHOUT CT DOSE: 526.67 mGy.cm HISTORY: Atypical chest pain radiating to back TECHNIQUE: Multiaxial CT images of the chest were performed without contrast. A dose lowering technique was utilized adhering to the principles of ALARA. COMPARISON: Chest CT 04/04/2016. FINDINGS: Normal caliber thoracic aorta. Evaluation for an aortic dissection is essentially nondiagnostic due to the lack of intravenous contrast. No pericardial effusion. The heart is borderline enlarged. Small pleural effusions. Subcentimeter mediastinal and hilar lymph nodes do not meet CT criteria for pathologic involvement. Cholecystectomy. The visualized unenhanced liver, spleen, and adrenal glands are unremarkable. No fractures within the visualized osseous structures. No pneumothorax. The central airways are patent. Diffuse interlobular septal thickening with groundglass airspace opacities. IMPRESSION: 1. Diffuse interlobular septal thickening, scattered groundglass airspace opacities, and small bilateral pleural effusions. This is consistent with pulmonary edema. 2. Normal caliber thoracic aorta. 3. Cholecystectomy. Electronically signed by: Sid Rodriguez M.D. 10/10/2017 7:21 AM Dictated Date/Time: 10/10/2017 7:16 AM
[2017-10-10] MEDS ORDERED: SNTONWC TOP (08:08)
[2017-10-10] MEDS ORDERED: TRMO115 TOP (08:08)
[2017-10-10] MEDS ORDERED: VNTHFA/IN INH (08:08)
[2017-10-10] MEDS ORDERED: NURSING VERBAL MED ORDER ONE ×2 (08:45→17:15)
[2017-10-10] MEDS ORDERED: HYDROmorphone INJ 0.5 MG/0.5 ML SYR ONE (08:48)
[2017-10-10] MEDS ORDERED: RIVAROXABAN TAB 15 MG TAB PO SCH (09:00)
--- NOTE | 2017-10-10 09:00 | NUR ---
C/o 4-5 left sided chest pain without radiation. child monitor without ectopy. EKG obtained. Pt declined Nitroglycerine tablet at this time and states "I thought the top of my head would blow off last time". Spoke with Dr Ren regarding pain medication. Order received for IV Dilaudid.
[2017-10-10] MEDS: POTASSIUM CHLORIDE 20 MEQ TABCR PO SCH (09:06)
[2017-10-10] MEDS: INSULIN ASPART 100 UNITS/ML 3 ML PEN SC SCH ×4 (09:10→20:24)
[2017-10-10] MEDS: INSULIN GLARGINE SOLOSTAR 100 UNITS/ML 3 ML PEN SC SCH (09:11)
--- NOTE | 2017-10-10 09:30 | NUR ---
Pt states some relief of chest pain and now rates 3/10 on scale. Declines further pain mediation at this time.
[2017-10-10] MEDS ORDERED: RANI150T85 PO (10:31)
[2017-10-10] MEDS ORDERED: POTA-639 PO (10:31)
--- NOTE | 2017-10-10 11:25 | CARDIOLOGY CONSULTATION ---
DATE OF CONSULTATION: 10/10/2017 DATE OF CONSULTATION: 10/10/2017 CONSULTATION REQUESTED BY: Dr. Ren. REASON FOR CONSULTATION: Heart failure, chest pain. PRIMARY TOPSTITCHER ZIGZAG: Dr. Irizarry. HISTORY OF PRESENT ILLNESS: Mrs. Barry is a very pleasant 77-year-old woman with a complex past medical history including moderate to severe coronary artery disease, moderate nonsevere valvular heart disease, atrial flutter on amiodarone anticoagulation and peripheral artery disease who was admitted last night in the setting of acute onset of chest pain and shortness of breath. The patient is followed by Dr. Irizarry in the outpatient setting. She was last seen by him back in May of this year. The patient states that over the last several months she has noticed a gradual decline and her exercise tolerance due to shortness of breath. Now can walk only around her home before becomes short of breath. However, was in her usual state of health until approximately 3 days prior to admission when he developed what she thought was the flu. She endorsed generalized fatigue with some upper respiratory symptoms. With this she reported decreased appetite. She states she ate only minimal food for the and then last night while in bed approximately around midnight was awoken up with acute shortness of breath while lying flat. Following shortness of breath symptoms progressed to include substernal chest pain as well as some symptoms radiating down her left arm. Symptoms persisted until she received pain medications in the Emergency Department. She was noted on presentation to have pulmonary edema on chest x-ray and received one dose of IV Lasix with adequate diuresis of more than 1300 out since Lasix. She has had continued intermittent chest pain for which she has required continued pain medication since. Her initial troponin was negative. Her EKG showed a previously noted left bundle branch block with sinus tachycardia. PAST MEDICAL HISTORY: 1. Coronary artery disease -- prior heart catheterization in 2014 showed 50-75% ostial RCA stenosis, 50% ostial circumflex stenosis and mild LAD disease. 2. Valvular heart disease, moderate mitral regurgitation, status post SHAUNA in 2014. Also underwent right heart catheterization in April 2015, which showed mild to moderate pulmonary hypertension with PA pressure of 40/20, mean of 32, wedge of 18 and preserved cardiac output/index. 3. Mild presumed nonischemic LV dysfunction. LVEF 45%. 4. Chronic left bundle branch block. 5. Atrial flutter status post prior admission requiring cardioversion in January of 2016. 6. Cerebral vascular disease status post bilateral carotid endarterectomy, most recently right carotid in August 2016. 7. Lower extremity peripheral artery disease followed by Dr. Bateman status post lower extremity angiogram in May 2017 showing mild to moderate SFA/popliteal disease on the right with an occluded anterior tibial and 2-vessel distal runoff. 8. Hypertension. 9. Dyslipidemia. 10. Hypothyroidism. 11. Chronic kidney disease. 12. History of left lower extremity venous ulceration. 13. History of superficial thrombophlebitis. FAMILY HISTORY: No family history of premature coronary disease or sudden cardiac . SOCIAL HISTORY: She lives alone. She is . Denies any active tobacco or significant alcohol use. MEDICATIONS: Include albuterol inhaler, amiodarone 200 mg daily, Plavix 75 mg daily, fish oil, furosemide 20 mg daily, insulin lispro 75/25, labetalol 75 mg q.p.m., levothyroxine, magnesium oxide, potassium, ranitidine, Xarelto 15 mg, triamcinolone cream and vitamin D. REVIEW OF SYSTEMS: A 10-point review of systems completed and otherwise negative unless stated in HPI. PHYSICAL EXAMINATION: VITAL SIGNS: Temperature 36.6, pulse 82, blood pressure 113/75. She is satting 96% on 4 liters. GENERAL: The patient appears comfortable in no acute distress. HEAD, EYES, EARS, NOSE, AND THROAT: Sclera anicteric. Oropharynx is clear. Mucous membranes are moist. NECK: Supple. She has JV extension up to approximately 8 or 9. LUNGS: Have decreased breath sounds at the bases bilaterally. CARDIAC: She is regular. She has a 2-3/6 systolic ejection murmur heard best at the right upper sternal border. ABDOMEN: Soft, nontender, obese. Positive bowel sounds. EXTREMITIES: Warm. She has trace lower extremity edema. She has varicosities and signs of chronic venous insufficiency. She has diminished DP pulses bilaterally. She has 2+ radial pulses bilaterally. NEUROLOGIC: Nonfocal. PSYCHIATRIC: Alert and appropriate. LABORATORY DATA: White blood cell count 11, hemoglobin 14.2, platelets of 261. Sodium 137, potassium of 3.9, BUN 30, creatinine 1.6, random glucose of 204. Initial troponin was negative at 0.015, CK-MB negative at 2.4. ProBNP borderline elevated at 726. Her TSH was elevated at 8.43. EKG showed sinus rhythm with old left bundle branch block. Telemetry reviewed showed no arrhythmias. IMAGING: Chest x-ray showed prominent pulmonary vasculature with mild cardiomegaly consistent with heart failure. Chest CT showed intralobar septal thickening, scattered ground-glass opacities and bilateral small effusions consistent with pulmonary edema. IMPRESSION AND PLAN: 1. Acute decompensated heart failure. 2. Chest pain. 3. History of mild left ventricular dysfunction. 4. Nonsevere valvular heart disease with moderate mitral regurgitation, mild to moderate aortic stenosis and mild to moderate pulmonary hypertension. 5. Atrial flutter on anticoagulation and amiodarone 6. Peripheral artery disease status post bilateral carotid endarterectomies. 7. Hypertension. 8. Chronic kidney disease. 9. Diabetes. 10. Hypothyroidism. Mrs. Barry is here with acute onset of shortness of breath followed by intermittent chest pain starting last night. Her initial cardiac enzymes and EKG have been negative for ischemia. She had pulmonary congestion on initial imaging and new oxygen requirment consistent with acute decompensated heart failure. Etiology of acute exacerbation unclear at this time. She did endorse some initial viral symptoms recently and possible increased recent salt intake. However, with patient's known significant vascular disease, will continue to rule out worsened CAD and/or progression of her valvular heart disease. GOING FORWARD: -- Plan to continue to monitor on telemetry. Cycle cardiac enzymes. -- Repeat transthoracic echocardiogram today. -- May need further ischemic evaluation at some point. -- Continue IV diuresis. Would give additional 40 mg of Lasix today. -- Continue home amiodarone and labetalol. -- Has already received her Xarelto today. May hold pending further evaluation today. -- Continue home clopidogrel. Please contact with any questions. FRANCISCA
[2017-10-10] MEDS ORDERED: MAGN400T6 PO (11:30)
[2017-10-10] MEDS ORDERED: LEVO50TA6 PO (11:39)
[2017-10-10 11:55] LABS: HEMOGLOBIN A1C 7.3 % (4.5-5.6)
[2017-10-10] MEDS: HYDROmorphone INJ 0.5 MG/0.5 ML SYR IV PRN ×2 (12:05→15:00)
--- NOTE | 2017-10-10 12:05 | NUR ---
Pt continues to c/o chest pain to left side of chest and now states it is around to back. Dilaudid dose given. Oxygen saturation 95% on 2L.
--- NOTE | 2017-10-10 12:30 | NUR ---
Reassessment of pt. Continues to c/o chest pain now 5/10 and left hand is numb. Pt declined further pain medication at this time. radiation monitor continues to show NSR with 1st deg heart block. VS stable.
[2017-10-10] MEDS ORDERED: OMEG10007 PO (13:35)
--- NOTE | 2017-10-10 13:50 | NUR ---
Dr Ren in to see pt at bedside. IV Fentanyl given. Repeat EKG complete. Pt resting in bed.
[2017-10-10] MEDS: FENTANYL CITRATE INJ 50 MCG/1 ML 2 ML VIAL IV PRN ×4 (13:52→23:28)
--- NOTE | 2017-10-10 14:01 | Hospitalist Progress Note ---
Hospitalist Progress Note Date of Service Oct 10, 2017. Subjective Pt evaluation today including: conversation w/ patient, conversation w/ solutions delivery consultant (Plastics Scientist) Pt has persisted with CP since it started last night at midnight. Waxing and waning today with pain meds. Fentanyl brought it down to a 3/10, then it came back. Dilaudid here helped a little but then she developed worsening chest pain and left hand numbness after lunch, wonders if it is from the Dilaudid. No SOB, no abd pain. Has some occasional stabbing pains in right side of head. Chest pressure is substernal, wraps around her rib cage, with some radiation to left shoulder and with left hand numbness. Discussed case with Cardiology. Will attempt to get her CP-free and if cannot, will take her to can labeler today. All Other Systems: Reviewed and Negative Objective Vital Signs Date Time Temp Pulse Resp B/P (MAP) Pulse Ox O2 Delivery O2 Flow Rate FiO2 10/10/17 12:05 95 Nasal Cannula 2.0 10/10/17 12:00 Nasal Cannula 4.0 10/10/17 11:44 36.5 68 19 110/72 (85) 97 Nasal Cannula 4.0 10/10/17 08:00 Nasal Cannula 4.0 10/10/17 07:26 36.6 82 19 113/75 (88) 96 Nasal Cannula 4.0 10/10/17 06:10 36.5 78 18 172/100 96 Room Air 10/10/17 04:35 88 18 147/71 93 Nasal Cannula 4.0 10/10/17 03:32 75 20 196/88 95 Nasal Cannula 4.0 10/10/17 03:15 86 10/10/17 03:06 93 Nasal Cannula 4.0 10/10/17 03:06 93 Nasal Cannula 4.0 10/10/17 03:06 36.8 100 24 196/88 93 Nasal Cannula 4.0 Physical Exam General Appearance: WD/WN, no apparent distress Eyes: normal inspection, sclerae normal ENT: hearing grossly normal Neck: trachea midline Respiratory/Chest: no respiratory distress, no accessory muscle use, + crackles (mild at bases bilat) Cardiovascular: regular rate, rhythm, no edema, + systolic murmur (2/6 at left sternal border) Abdomen: normal bowel sounds, non tender, soft, no organomegaly, no pulsatile mass Extremities: non-tender, normal inspection, no pedal edema, no calf tenderness Neurologic/Psychiatric: alert, normal mood/affect, oriented x 3 Skin: normal color, warm/dry, no rash Laboratory Results Last 24 Hours Test 10/10/17 02:50 10/10/17 09:03 10/10/17 10:31 10/10/17 11:14 White Blood Count 11.08 K/uL Red Blood Count 4.25 M/uL Hemoglobin 14.2 g/dL Hematocrit 42.1 % Mean Corpuscular Volume 99.1 fL Mean Corpuscular Hemoglobin 33.4 pg Mean Corpuscular Hemoglobin Concent 33.7 g/dl Platelet Count 261 K/uL Mean Platelet Volume 11.4 fL Neutrophils (%) (Auto) 55.3 % Lymphocytes (%) (Auto) 31.0 % Monocytes (%) (Auto) 8.9 % Eosinophils (%) (Auto) 4.1 % Basophils (%) (Auto) 0.4 % Neutrophils # (Auto) 6.14 K/uL Lymphocytes # (Auto) 3.43 K/uL Monocytes # (Auto) 0.99 K/uL Eosinophils # (Auto) 0.45 K/uL Basophils # (Auto) 0.04 K/uL RDW Standard Deviation 46.3 fL RDW Coefficient of Variation 12.8 % Immature Granulocyte % (Auto) 0.3 % Immature Granulocyte # (Auto) 0.03 K/uL Sodium Level 137 mmol/L Potassium Level 3.9 mmol/L Chloride Level 107 mmol/L Carbon Dioxide Level 24 mmol/L Anion Gap 6.0 mmol/L Blood Urea Nitrogen 30 mg/dl Creatinine 1.61 mg/dl Est Creatinine Clear Calc Drug Dose 33.7 ml/min Estimated GFR () 35.1 Estimated GFR (Non- 30.3 BUN/Creatinine Ratio 18.7 Random Glucose 204 mg/dl Calcium Level 8.7 mg/dl Total Bilirubin 0.2 mg/dl Aspartate Amino Transf (AST/SGOT) 16 U/L Alanine Aminotransferase (ALT/SGPT) 26 U/L Alkaline Phosphatase 115 U/L Total Creatine Kinase 138 U/L Creatine Kinase MB 2.4 ng/ml Creatine Kinase MB Ratio 1.7 Troponin I < 0.015 ng/ml 0.119 ng/ml Pro-B-Type Natriuretic Peptide 726 pg/ml Total Protein 7.4 gm/dl Albumin 3.2 gm/dl Globulin 4.2 gm/dl Albumin/Globulin Ratio 0.8 Thyroid Stimulating Hormone (TSH) 8.430 uIu/ml Chemistry Specimen Hemolysis Bedside Glucose 245 mg/dl 132 mg/dl Estimated Average Glucose 163 mg/dl Hemoglobin A1c 7.3 % Assessment and Plan This is a 77 y/o female with a h/o CAD, Chronic systolic CHF and ischemic CM, Pulm HTN, LISBETH, chronic LBBB, PAF, PAD, DMII, hypothyroidism, CKD stage III, who presents with Chest pain, shortness of breath secondary to acute on chronic systolic CHF. Chest Pain/CAD/Chronic systolic CHF and ischemic CM/Pulm HTN/LISBETH/Chronic LBBB/ PAD- with ongoing CP. Troponin now elevated on second set to 0.119. Has known underlying CAD. Cannot tolerate NTG and declines, morphine makes her sick. Dilaudid not helping. SOB improving with IV lasix/diuresis. CT Chest noncontrast without obvious cause but not good for dissection study. BPs stable -Will try Fentanyl now -check Echo-called for it to be done now -continue Lasix 40 mg iv daily AM -continue Palvix-is not on ASA due to h/o PUD -continue labetalol -is intolerant to statins -daily weights, I/O -Cardio consult appreciated -f/u Serial Troponin -if CP not improving, will take to can labeler today, keep NPO PAF-resolved after DCCV in 2016. 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
--- NOTE | 2017-10-10 14:30 | NUR ---
Pt states chest pain unrelieved after IV Fentanyl but declined need for further pain medication. States "I just don't want to take too much". Remains NSR with 1st deg heart block.
--- NOTE | 2017-10-10 15:00 | NUR ---
Dr Bateman in to see pt. IV dilaudid given. Pt states chest pain is not as bad but continues to rate pain 7/10 and radiates around to back. Pt NPO for possible clinical laboratory science professor today. Awaiting ECHO to be done.
--- NOTE | 2017-10-10 15:30 | NUR ---
ECHO at bedside.
--- NOTE | 2017-10-10 16:45 | NUR ---
Dr Bateman in to see pt and family at bedside. Plan for cath tomorrow. Will hold Xarelto in am. Pt to be NPO after midnight.
--- NOTE | 2017-10-10 16:51 | ECHOCARDIOGRAM REPORT ---
*NOTICE TO RECEIVING REPUBLICAN AGENCY This information is strictly Confidential and protected under [place] law. [place] law prohibits you from making any further disclosure of this information unless further disclosure is expressly permitted by the written consent of the person to whom it pertains or is authorized by law. A general authorization for the release of medical or other information is not sufficient for this purpose. Hospital accepts no responsibility if the information is made available to any other person, INCLUDING THE PATIENT. Interpretation Summary * Name: ERIC ROLDAN Study Date: 10/10/2017 03:06 PM BP: 110/72 mmHg * Patient Location: C.2T\S\S244\S\1 HR: 68 * : 1940 (M/d/) Gender: Female Height: 65 in * Age: 77 yrs Ethnicity: CA Weight: 239 lb * Ordering Physician: Ivy Harmon * Referring Physician: Self, Referred * Performed By: Farzaneh Darling RDCS * * Reason For Study: Chest pain * BSA: 2.1 m2 * -- Conclusions -- * 1. Normal LV size and wall thickness. * 2. Mild to moderate LV dsyfunction. LVEF 40-45%. Moderate inferolateral, inferior hypokinesis. Abnormal septal motion consistent with conduction abnormality. * 3. Normal RV size and function. * 4. Grade II diastolic dysfunction. * 5. Moderate mitral regurgitation. * 6. Mild to moderate aortic stenosis (PV 2.9, MG 21) * 7. Borderline PH. Est PASP 35-40 mmHg. Est RA 3 mmHg. * 8. Compared with prior study on 02/04/2016: No significant changes. Procedure Details * A complete two-dimensional transthoracic echocardiogram was performed (2D, M-mode, Doppler and color flow Doppler). Left Ventricle * The left ventricle is grossly normal size. * There is normal left ventricular wall thickness. * Ejection Fraction = 40-45%. * Moderate inferolateral, inferior hypokinesis. Abnormal septal motion consistent with conduction abnormality. Right Ventricle * The right ventricle is grossly normal size. * The right ventricular systolic function is normal as assessed by tricuspid annular plane systolic excursion (TAPSE) (normal >1.5 cm). Atria * Borderline left atrial enlargement. * Right atrial size is normal. * No ASD detected; PFO is not assessed. Mitral Valve * The mitral valve is grossly normal. * There is no mitral valve stenosis. * There is moderate mitral regurgitation. Tricuspid Valve * There is mild tricuspid regurgitation. Aortic Valve * Mild to moderate valvular aortic stenosis. * There is no significant aortic regurgitation. Pulmonic Valve * The pulmonary valve is inadequately visualized, but the Doppler data is adequate for interpretation. * Pulmonic stenosis is absent. * There is no significant pulmonary regurgitation. Great Vessels * The aortic root and proximal ascending aorta are normal sized. * Normal inferior vena cava size and collapsability with sniff indicates a normal right atrial pressure of 3 mmHg Left Ventricular Diastolic Function * Diastolic dysfunction, Grade II (pseudonormalization pattern). MMode 2D Measurements and Calculations IVSd 0.82 cm LVIDd 5.4 cm LVIDs 4.3 cm LVPWd 0.86 cm IVS/LVPW 0.96 FS 20.9 % EDV(Teich) 143.2 ml ESV(Teich) 83.0 ml EF(Teich) 42.0 % EDV(cubed) 160.1 ml ESV(cubed) 79.4 ml EF(cubed) 50.4 % LV mass(C)d 166.8 grams LV mass(C)dI 78.2 grams/m\S\2 SV(Teich) 60.2 ml SI(Teich) 28.2 ml/m\S\2 SV(cubed) 80.7 ml SI(cubed) 37.8 ml/m\S\2 Ao root diam 2.6 cm Ao root area 5.2 cm\S\2 LA dimension 3.9 cm asc Aorta Diam 3.0 cm LA/Ao 1.5 LVOT diam 1.9 cm LVOT area 2.7 cm\S\2 LVAd ap4 29.0 cm\S\2 LVLd ap4 8.2 cm EDV(MOD-sp4) 84.3 ml EDV(sp4-el) 87.4 ml LVAs ap4 22.0 cm\S\2 LVLs ap4 7.9 cm ESV(MOD-sp4) 51.4 ml ESV(sp4-el) 52.1 ml EF(MOD-sp4) 39.0 % EF(sp4-el) 40.4 % LVAd ap2 28.2 cm\S\2 LVLd ap2 8.9 cm EDV(MOD-sp2) 74.9 ml EDV(sp2-el) 76.0 ml LVAs ap2 20.1 cm\S\2 LVLs ap2 8.1 cm ESV(MOD-sp2) 43.4 ml ESV(sp2-el) 42.0 ml EF(MOD-sp2) 42.0 % EF(sp2-el) 44.7 % LVLd %diff 8.0 % EDV(MOD-bp) 82.8 ml LVLs %diff 3.2 % ESV(MOD-bp) 47.1 ml EF(MOD-bp) 43.2 % SV(MOD-sp4) 32.9 ml SI(MOD-sp4) 15.4 ml/m\S\2 SV(MOD-sp2) 31.5 ml SI(MOD-sp2) 14.7 ml/m\S\2 SV(MOD-bp) 35.8 ml SI(MOD-bp) 16.8 ml/m\S\2 SV(sp4-el) 35.3 ml SI(sp4-el) 16.5 ml/m\S\2 SV(sp2-el) 34.0 ml SI(sp2-el) 15.9 ml/m\S\2 Doppler Measurements and Calculations MV E max chanel 135.8 cm/sec MV A max chanel 95.1 cm/sec MV E/A 1.4 MV dec time 0.24 sec Ao V2 max 281.0 cm/sec Ao max PG 31.6 mmHg Ao max PG (full) 26.9 mmHg Ao V2 mean 205.3 cm/sec Ao mean PG 19.0 mmHg Ao V2 VTI 61.1 cm DESIRE(V,A) 1.1 cm\S\2 DESIRE(V,D) 1.1 cm\S\2 LV V1 max PG 4.8 mmHg LV V1 max 109.1 cm/sec MR max chanel 537.2 cm/sec MR max PG 115.5 mmHg MR mean chanel 426.8 cm/sec MR mean PG 81.6 mmHg MR VTI 199.9 cm SV(Ao) 316.6 ml SI(Ao) 148.4 ml/m\S\2 PA V2 max 95.0 cm/sec PA max PG 3.6 mmHg PA acc slope 911.8 cm/sec\S\2 PA acc time 0.07 sec TR max chanel 302.9 cm/sec PA pr(Accel) 45.7 mmHg
[2017-10-10] MEDS: AMIODARONE 200 MG TAB PO SCH (20:25)
--- NOTE | 2017-10-10 20:25 | NUR ---
A: Patient awake and resting in bed - still complaining of 5/10 left sided chest pain but states "it's not that bad." Requesting to go in bathroom and get washed up. States she does get short of breath with exertion. Aware she is for a catheterization tomorrow and verbalized understanding. SR 70 - 80s on tele. Call strong within reach. Will frequently monitor patient.
[2017-10-10] MEDS: LABETALOL HCL 300 MG TAB PO SCH (20:26)
[2017-10-10] MEDS: MAGNESIUM OXIDE 400 MG TAB PO SCH (20:26)
[2017-10-10] MEDS: CLOPIDOGREL BISULFATE 75 MG TAB PO SCH (20:26)
--- NOTE | 2017-10-10 23:25 | NUR ---
A: Patient awake and resting in bed - still has left sided chest pain radiating to shoulder blade, rates it a 6/10. Lab recently here and giovanny troponin. EKG obtained. Updated Dr Harmon. See EMAR. Aware she is NPO after midnight. Call strong within reach. Will monitor patient.
--- NOTE | 2017-10-10 23:45 | NUR ---
Troponin 0.0963 - Dr Harmon notified. No new orders, will monitor patient.
[2017-10-11] VITALS (16 sets, daily range): BP systolic 90–136; BP diastolic 55–77; PULSE 64–98; TEMP 36.5–37.1; O2SAT 91–97
--- NOTE | 2017-10-11 04:00 | NUR ---
A: Patient assisted to and from bathroom. Rates her chest pain at 3/10 and is refusing any medication at this time. NPO for cardiac cath today. SR 60s on tele. Call strong within reach. Will monitor patient.
[2017-10-11 05:08] LABS: CALCIUM 8.5 mg/dl (8.5-10.1); CREATININE 1.53 mg/dl (0.60-1.20); POTASSIUM 4.4 mmol/L (3.5-5.1)
[2017-10-11] MEDS: LEVOTHYROXINE 50 MCG TAB PO SCH (05:29)
[2017-10-11] MEDS: INSULIN ASPART 100 UNITS/ML 3 ML PEN SC SCH ×4 (07:00→21:00)
--- NOTE | 2017-10-11 08:16 | Cardiology Follow-Up ---
Subjective Subjective Date of Service: Oct 11, 2017. Pt evaluation today including: conversation w/ patient, physical exam, chart review, lab review, review of studies, review of inpatient medication list Additional Details: Still with intermittent pain overnight requiring fentanyl. Somewhat less pain this AM. Denies dyspnea. Negative 2.2 L yesterday. Tele reviewed -- no events Problem List Medical Problems: (1) Atrial flutter with rapid ventricular response Status: Acute (2) Cardiac ischemia Status: Acute (3) Chest pain Status: Acute (4) Chest pain Status: Acute (5) Failure of outpatient treatment Status: Acute (6) Hypoxia Status: Acute (7) Pneumonia Status: Acute (8) Pulmonary edema Status: Acute Review of Systems Constitutional: No fever Eyes: No worsening of vision ENT: No hearing loss Respiratory: + shortness of breath, No cough Cardiac: + chest pain Abdomen: No pain, No nausea Psychiatric: No depression symptoms Heme: No abnormal bleeding/bruising Endo: + fatigue Skin: No rash Objective Vital Signs Last Vital Signs Documentation Date Time Temp Pulse Resp B/P (MAP) Pulse Ox O2 Delivery O2 Flow Rate FiO2 10/11/17 04:00 Nasal Cannula 2.0 10/11/17 03:44 36.5 70 19 120/70 (87) 96 Physical Exam: General Appearance: no apparent distress ENT: hearing grossly normal Neck: trachea midline Respiratory/Chest: no respiratory distress, no accessory muscle use, + decreased breath sounds (at bases bilaterally) Cardiovascular: regular rate, rhythm, no edema, + systolic murmur (2/6 at right sternal border) Abdomen: normal bowel sounds, non tender, soft Extremities: no pedal edema, no calf tenderness Neurologic/Psychiatric: alert, normal mood/affect, oriented x 3 Skin: normal color, warm/dry, no rash Assessment and Plan 1. NSTEMI 2. Prior known moderate multivessel CAD 3. Acute heart failure 4. Atrial flutter 5. Chronic LBBB 6. PAD 7. CKD 8. DM 9. Mod MR/Mild to moderate Still with intermittent chest pain overnight but minimal troponin elevation has peaked and LV function not significantly changed on Echo. On exam today well perfused, with minimal residual congestion. -- Plan for coronary angiography via right radial artery later today. -- Keep NPO, xarelto and lasix held this AM. -- Continue current clopidogrel -- Further recommendations pending findings of cardiac cath. Medications: Current Inpatient Medications Medications (Trade) Dose Ordered Sig/Sedrick Route Start Time Stop Time Status Last Admin Dose Admin Acetaminophen (Tylenol Tab) 650 mg Q4H PRN PO 10/10/17 05:00 11/09/17 04:59 Al Hydrox/Mg Hydrox/Simethicone (Maalox Max Susp) 15 ml Q4H PRN PO 10/10/17 05:00 11/09/17 04:59 Magnesium Hydroxide (Milk Of Magnesia Susp) 30 ml Q12H PRN PO 10/10/17 05:00 11/09/17 04:59 Ondansetron HCl (Zofran Inj) 4 mg Q6H PRN IV 10/10/17 05:00 11/09/17 04:59 Nitroglycerin (Nitrostat Tab) 0.4 mg UD PRN SL 10/10/17 05:00 11/09/17 04:59 Polyethylene (Miralax Powder Packet) 17 gm DAILY PRN PO 10/10/17 05:00 11/09/17 04:59 Albuterol (Ventolin Hfa Inhaler) 2 puffs Q6H PRN INH 10/10/17 05:00 11/09/17 04:59 Amiodarone HCl (Cordarone Tab) 200 mg QPM PO 10/10/17 21:00 11/09/17 20:59 10/10/17 20:25 200 MG Clopidogrel Bisulfate (plAVix TAB) 75 mg QPM PO 10/10/17 21:00 11/09/17 20:59 10/10/17 20:26 75 MG Labetalol HCl (Normodyne Tab) 75 mg QPM PO 10/10/17 21:00 11/09/17 20:59 10/10/17 20:26 75 MG Levothyroxine Sodium (Synthroid Tab) 50 mcg DAILYBB PO 10/10/17 06:00 11/09/17 05:59 10/10/17 07:06 50 MCG Magnesium Oxide (Mag-Ox Tab) 400 mg QPM PO 10/10/17 21:00 11/09/17 20:59 10/10/17 20:26 400 MG Potassium Chloride (Klor-Con Tab) 20 meq QAM PO 10/10/17 09:00 11/09/17 08:59 10/10/17 09:06 20 MEQ Ranitidine HCl (zANTac TAB) 150 mg BID PRN PO 10/10/17 05:00 11/09/17 04:59 Insulin Aspart (novoLOG ASPART) SLIDING SCALE G... ACHS SC 10/10/17 07:00 11/09/17 06:59 10/10/17 09:10 4 UNITS Insulin Glargine (Lantus Solostar Pen) 15 units QAM SC 10/10/17 09:00 11/09/17 08:59 10/10/17 09:11 15 UNITS Ioversol (Optiray 320) 100 ml UD PRN IV 10/10/17 05:15 10/14/17 05:14 Glucose (Glucose 40% Gel) 15-30 GRAMS 15 GRAMS... UD PRN PO 10/10/17 06:30 11/09/17 06:29 Glucose (Glucose Chew Tab) 4-8 Tablets 4 Tabl... UD PRN PO 10/10/17 06:30 11/09/17 06:29 Dextrose (Dextrose 50% 50ML Syringe) 25-50ML OF 50% DW IV FOR... UD PRN IV 10/10/17 06:30 11/09/17 06:29 Glucagon (Glucagon Inj) 1 mg UD PRN SQ 10/10/17 06:30 11/09/17 06:29 Hydromorphone HCl (Dilaudid Inj) 0.25 mg Q30M PRN IV 10/10/17 09:15 10/24/17 09:14 10/10/17 15:00 0.25 MG Fentanyl Citrate (Fentanyl Inj) 25 mcg Q2H PRN IV 10/10/17 13:45 10/24/17 13:44 10/10/17 23:28 25 MCG Lab Results: 10/11/17 04:34 Test 10/10/17 10:31 10/11/17 04:34 10/11/17 06:13 Estimated Average Glucose 163 mg/dl Hemoglobin A1c 7.3 % (4.5-5.6) Anion Gap 4.0 mmol/L (3-11) Est Creatinine Clear Calc Drug Dose 37.1 ml/min Estimated GFR () 37.4 Estimated GFR (Non- 32.2 BUN/Creatinine Ratio 16.8 (10-20) Calcium Level 8.5 mg/dl (8.5-10.1) Troponin I 0.076 ng/ml (0-0.045) Bedside Glucose 135 mg/dl (70-90)
[2017-10-11] MEDS: FENTANYL CITRATE INJ 50 MCG/1 ML 2 ML VIAL IV PRN (08:29)
--- NOTE | 2017-10-11 08:30 | NUR ---
A: Pt alert and oriented x4. Vss. Complaints of midsternal chest pain, given prn fentanyl, relief stated. Pt stated that when she woke up pain was okay, after MD left her pain increased. Normal sinus with first degree block and IVCD on monitor. Denies shortness of breath or radiation of pain. Up with minimal assist. Saline locked. Call strong within reach. Encouraged to ring for assistance. Will continue to monitor.
[2017-10-11] MEDS ORDERED: NURSING VERBAL MED ORDER ONE (08:45)
[2017-10-11] MEDS: POTASSIUM CHLORIDE 20 MEQ TABCR PO SCH (09:00)
[2017-10-11] MEDS ORDERED: FUROSEMIDE INJ 40 MG in SYRINGE 0 ML IV SCH (09:00)
[2017-10-11] MEDS ORDERED: INSULIN GLARGINE SOLOSTAR 100 UNITS/ML 3 ML PEN SC ONE (09:00)
--- NOTE | 2017-10-11 10:00 | NUR ---
Case management note. Social service consult for discharge planning. Spoke with pt. Pt a&o. Pt lives alone. Pt lives in a 1 story house. Pt does not use any assistive devices. Pt does not have home oxygen. Pt is independent with adl's. Pt does not have home health. Pt drives. Explained role of child welfare caseworker. Pt denies any discharge needs. Pt plans to return home at discharge. Recommend PT/OT evals to ensure pt is at baseline level of functioning prior to discharge. Case management to follow with pt.
--- NOTE | 2017-10-11 12:15 | NUR ---
A: Pt resting in bed. Family at bedside. Pt for cardiac cath this afternoon. No complaints at this time. Remains normal sinus with first degree block and IVCD on monitor. Call strong within reach. Encouraged to ring for assistance. Will continue to monitor.
--- NOTE | 2017-10-11 13:10 | NUR ---
A: Pt rang, requested to have blood sugar checked, stated she felt like it was low. BSG 117. At this time concrete plant laborer staff in room to take patient.
[2017-10-11] MEDS ORDERED: NITROGLYCERIN/D5W 100MCG/ML 20ML SYR ONE (13:26)
[2017-10-11] MEDS ORDERED: HEPARIN SOD (PORCINE) 1000 UNIT/ML 10 ML VIAL ONE (13:26)
[2017-10-11] MEDS ORDERED: NiCARDipine HCL INJ 2.5 MG/ML 10 ML AMP ONE (13:26)
[2017-10-11] MEDS ORDERED: MIDAZOLAM HCL 1 MG/ML 2ML VIAL ONE (13:26)
--- NOTE | 2017-10-11 14:30 | NUR ---
A: Pt arrived back to room at this time. Family at bedside. No complaints. TR band to right wrist, no bleeding noted. May start removing air at 1500 per labor relations teacher staff.
[2017-10-11] MEDS ORDERED: SODIUM CHLORIDE 0.9% 1000ML 1,000 ML IV SCH (15:00)
--- NOTE | 2017-10-11 15:03 | Post Sedation Assessment ---
Post Sedation Assessment General Date of Sedation Oct 11, 2017. Vital Signs: Vital Signs Past 12 Hours Date Time Temp Pulse Resp B/P (MAP) Pulse Ox O2 Delivery O2 Flow Rate FiO2 10/11/17 14:30 71 18 100/59 (73) 91 Nasal Cannula 2.0 10/11/17 14:25 85 16 125/70 (88) 98 Room Air 10/11/17 14:10 85 16 145/75 (98) 98 Room Air 10/11/17 12:15 Nasal Cannula 2.0 10/11/17 10:46 36.7 66 20 136/77 (96) 95 Nasal Cannula 2.0 10/11/17 08:30 Nasal Cannula 2.0 10/11/17 07:12 37.1 71 20 107/68 (81) 97 Nasal Cannula 2.5 10/11/17 04:00 Nasal Cannula 2.0 10/11/17 03:44 36.5 70 19 120/70 (87) 96 Nasal Cannula 3.0 Post Procedure Recovery Score Activity: (2) Moves 4 extremities * Respiration: (2) Deep breath/cough Circulation: (2) +/-20% PreAnes Value Consciousness: (2) Fully Awake Oxygen Saturation: (2) > 92% On Room Air Post Anesthesia Score: 10 Discharge Sedation Level of Care: Fast Track Phase II Post Sedation Plan On clinical assessment, the patient appears to have tolerated the sedation without complications. Patient is recovering as anticipated. Patient will continue to be monitored by nursing and may be discharged when sedation discharge criteria are met per below protocol. Upon Completions of procedure and additional 15 minutes continue every 5 minute vital signs and the P.A.R. score; then discharge to a Phase I or Fast Track to Phase II per the following guidelines: * Discharge Patient to appropriate Phase II area if PAR is 8 or greater or return to pre- procedure baseline. The post - procedure orders will be as directed. * If PAR score is less than 8 or not return to pre-procedure baseline then patient will follow Phase I monitoring till PAR is reached for Phase II. The Phase I may be done in procedure room or may call to secure a Phase I area. * If naloxone or flumazenil are used for reversal, hold in Phase I for an additional 60 -120 minutes before discharge to Phase II. Please call the Sedation Physician to re-evaluate and complete post-note for discharge to Phase II area. Do NOT discharge from procedure sedation or Phase 1 until post- sedation evaluation note is complete by procedure /sedation MD Sedation Discharge Instructions to be given to the patient at discharge to home.
--- NOTE | 2017-10-11 15:03 | Pre Sedation Assessment ---
Pre Sedation Assessment General Date of Sedation: Oct 11, 2017. Vital Signs Past 12 Hours Date Time Temp Pulse Resp B/P (MAP) Pulse Ox O2 Delivery O2 Flow Rate FiO2 10/11/17 14:30 71 18 100/59 (73) 91 Nasal Cannula 2.0 10/11/17 14:25 85 16 125/70 (88) 98 Room Air 10/11/17 14:10 85 16 145/75 (98) 98 Room Air 10/11/17 12:15 Nasal Cannula 2.0 10/11/17 10:46 36.7 66 20 136/77 (96) 95 Nasal Cannula 2.0 10/11/17 08:30 Nasal Cannula 2.0 10/11/17 07:12 37.1 71 20 107/68 (81) 97 Nasal Cannula 2.5 10/11/17 04:00 Nasal Cannula 2.0 10/11/17 03:44 36.5 70 19 120/70 (87) 96 Nasal Cannula 3.0 Review Cardiovascular: regular rate, rhythm, no edema Lungs: chest non-tender, lungs clear Pre-Sedation Airway Assessment Smoking Status: Never Smoker Hx of Sleep Apnea: No Hx of difficult intubation: No Short Thick Neck: No Thyro-mental Distance: > 3 Finger Breadths Oral Cavity: Dentures Mallampati Classification: Class II ASA Classification: Class II NPO Status Date of Last Intake of Fluids: Oct 10, 2017 Time of Last Intake of Fluids: 1899 Date of Last Intake of Solids: Oct 10, 2017 Time of Last Intake of Solids: 1899 Procedure Planning Contraindications for Sedation: None Current Medications Reviewed: Yes Notes The planned sedation has been discussed with the patient. Informed Consent was obtained. I have identified the patient, determined the appropriateness of sedation and have assessed the patient immediately prior to the procedure. All medicine(s) and interventions are by my order.
--- NOTE | 2017-10-11 15:43 | Cardiac Catheterization ---
Procedure Note Procedure Date Oct 11, 2017. 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 Small 2nd diagonal with 99% proximal stenosis. Circumflex - Ostial 30-40% stenosis, diffuse 20% proximal disease. High OM1 20 % ostial stenosis. RCA - Dominant, 40-50% calcified ostium; 20% distal disease; Luminal irregularities in R-PDA, PLB. LVEDP - 17 Arterial Closure: TR Band Summary: 1. Moderate to severe multivessel coronary artery disease - Sequential 60-70% mid LAD lesions; Small 2nd diagonal with 99% proximal stenosis (likely culprit; too small for intervention) - 40-50% ostial RCA - 30-40% ostial circumflex 2. Mildly elevated intracardiac filling pressures Recommendations: Suspect small 2nd diagonal likely culprit for patients mild troponin elevation - -> vessel to small for intervention and recommend medical management. Moderate to severe LAD disease potentially flow limiting -- for now recommend optimizing antianginal regimen. If limiting exertional symptoms going forward will consider FFR +/- PCI Continued diuresis Continued ASCVD risk factor modification Hemodynamics Rest Ao: 133/59/89 Final Ao: 148/57/89 LV: 175/17 Recommendations Medical therapy and/or Counseling Specimens None Radiation Exposure (mGy) 1007 Contrast (mls) 65 Fluids (cc crystalloids) 40 Drains None Anesthesia Moderate Procedural Complication(s) None Disposition Lottery Sales Clerk Holding/Recovery ACC Data Cardiac Status Clinical evaluation leading to the procedure CAD Presntation: Non STEMI Anginal Classification: CCS III Heart Failure: Yes, NYHA Class: CCS IV Cardiogenic Shock w/in 24Hrs: No Cardiac Arrest w/in 24Hrs: No Imaging studies past 6 months: Yes Stress studies past 6 months: No Closure Device Percutaneous Entry Location: Radial Closure Device: Radial Band Recommendations: Medical therapy and/or Counseling Intraprocedure Events Significant Dissection: No Perforation: No
--- NOTE | 2017-10-11 16:00 | NUR ---
A; A&O x4, bilateral clear lungs on 2L NC, denied pain, IV infusing, NSR with 1-degree block, right wrist TR band intact with no weeping
--- NOTE | 2017-10-11 20:00 | NUR ---
A; assessment completed refer to EMR
[2017-10-11] MEDS: LABETALOL HCL 300 MG TAB PO SCH (21:00)
--- NOTE | 2017-10-11 21:04 | Hospitalist Progress Note ---
Hospitalist Progress Note Date of Service Oct 11, 2017. Subjective Pt evaluation today including: conversation w/ patient, conversation w/ hematology oncology consultant (cardiology) Patient continues to have mild substernal chest pain that is improved with fentanyl. She went for cardiac catheterization later today and after that I discussed the case with cake puncher. She did have some significant disease in a small diagonal that he thinks was the culprit of her pain. She will have medical management at this point with attempts to lessen her anginal symptoms. Patient otherwise has no complaints today. All Other Systems: Reviewed and Negative Objective Vital Signs Date Time Temp Pulse Resp B/P (MAP) Pulse Ox O2 Delivery O2 Flow Rate FiO2 10/11/17 20:15 68 105/61 (76) 97 Humidified Oxygen 2.0 10/11/17 19:15 98 93/55 (68) 10/11/17 18:15 73 93/55 (68) 10/11/17 17:15 67 95/56 (69) 10/11/17 16:15 67 95/56 (69) 10/11/17 16:00 91 Nasal Cannula 2.0 Humidified Oxygen 10/11/17 15:45 64 98/59 (72) 10/11/17 15:15 76 107/66 (80) 10/11/17 15:00 65 95/59 (71) 10/11/17 14:30 71 18 100/59 (73) 91 Nasal Cannula 2.0 10/11/17 14:25 85 16 125/70 (88) 98 Room Air 10/11/17 14:10 85 16 145/75 (98) 98 Room Air 10/11/17 12:15 Nasal Cannula 2.0 10/11/17 10:46 36.7 66 20 136/77 (96) 95 Nasal Cannula 2.0 10/11/17 08:30 Nasal Cannula 2.0 10/11/17 07:12 37.1 71 20 107/68 (81) 97 Nasal Cannula 2.5 10/11/17 04:00 Nasal Cannula 2.0 10/11/17 03:44 36.5 70 19 120/70 (87) 96 Nasal Cannula 3.0 10/10/17 23:42 37.2 75 18 148/77 (100) 95 Room Air 10/10/17 23:25 Nasal Cannula 2.0 Physical Exam General Appearance: WD/WN, no apparent distress Eyes: normal inspection, sclerae normal ENT: hearing grossly normal Neck: trachea midline Respiratory/Chest: lungs clear, normal breath sounds, no respiratory distress, no accessory muscle use Cardiovascular: regular rate, rhythm, no edema, no gallop, no murmur Abdomen: normal bowel sounds, non tender, soft Extremities: non-tender, normal inspection, no pedal edema, no calf tenderness Neurologic/Psychiatric: alert, normal mood/affect, oriented x 3 Skin: normal color, warm/dry, no rash Laboratory Results Last 24 Hours Test 10/10/17 22:50 10/11/17 04:34 10/11/17 06:13 10/11/17 11:51 Troponin I 0.093 ng/ml 0.076 ng/ml Sodium Level 138 mmol/L Potassium Level 4.4 mmol/L Chloride Level 105 mmol/L Carbon Dioxide Level 29 mmol/L Anion Gap 4.0 mmol/L Blood Urea Nitrogen 26 mg/dl Creatinine 1.53 mg/dl Est Creatinine Clear Calc Drug Dose 37.1 ml/min Estimated GFR () 37.4 Estimated GFR (Non- 32.2 BUN/Creatinine Ratio 16.8 Random Glucose 132 mg/dl Calcium Level 8.5 mg/dl Bedside Glucose 135 mg/dl 136 mg/dl Test 10/11/17 13:13 10/11/17 16:33 Bedside Glucose 117 mg/dl 147 mg/dl Assessment and Plan This is a 77 y/o female with a h/o CAD, Chronic systolic CHF and ischemic CM, Pulm HTN, LISBETH, chronic LBBB, PAF, PAD, DMII, hypothyroidism, CKD stage III, who presents with Chest pain, shortness of breath secondary to acute on chronic systolic CHF. Chest Pain/CAD/acute on Chronic combined systolic and diastolic CHF/ischemic CM/ Pulm HTN/LISBETH/Chronic LBBB/PAD//MR- with persistent CP. Troponin became elevated on second set to 0.119 and then trended downward to 0.076 today. Has known underlying CAD. Cannot tolerate NTG and declines, morphine makes her sick. Dilaudid not helping. Fentanyl helped somewhat but the pain never went away. SOB improving with IV lasix/diuresis. CT Chest noncontrast without obvious cause but not good for dissection study. BPs stable ECHO: * 1. Normal LV size and wall thickness. * 2. Mild to moderate LV dsyfunction. LVEF 40-45%. Moderate inferolateral, inferior hypokinesis. Abnormal septal motion consistent with conduction abnormality. * 3. Normal RV size and function. * 4. Grade II diastolic dysfunction. * 5. Moderate mitral regurgitation. * 6. Mild to moderate aortic stenosis (PV 2.9, MG 21) * 7. Borderline PH. Est PASP 35-40 mmHg. Est RA 3 mmHg. * 8. Compared with prior study on 02/04/2016: No significant changes Cardiac catheterization on 10/11 showed: "Summary: 1. Moderate to severe multivessel coronary artery disease - Sequential 60-70% mid LAD lesions; Small 2nd diagonal with 99% proximal stenosis (likely culprit; too small for intervention) - 40-50% ostial RCA - 30-40% ostial circumflex 2. Mildly elevated intracardiac filling pressures Recommendations: Suspect small 2nd diagonal likely culprit for patients mild troponin elevation - -> vessel to small for intervention and recommend medical management. Moderate to severe LAD disease potentially flow limiting -- for now recommend optimizing antianginal regimen. If limiting exertional symptoms going forward will consider FFR +/- PCI Continued diuresis Continued ASCVD risk factor modification" -Receiving small amount of fluid now status post catheterization, but then cardiology recommends to continue Lasix by mouth in the morning -start amlodipine for antianginal effect-low dose due to low blood pressures and can titrate up as needed -continue Plavix-is not on ASA due to h/o PUD -continue labetalol -is intolerant to statins -daily weights, I/O -Cardio consult appreciated -Okay to restart Xarelto tomorrow PAF-resolved after DCCV in 2015. 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
[2017-10-11] MEDS: AMIODARONE 200 MG TAB PO SCH (21:06)
[2017-10-11] MEDS: MAGNESIUM OXIDE 400 MG TAB PO SCH (21:06)
[2017-10-11] MEDS: CLOPIDOGREL BISULFATE 75 MG TAB PO SCH (21:06)
--- NOTE | 2017-10-12 | NUR ---
A. Patient assessed, resting in bed. She is AAOx4, pleasant and cooperative. She is denying any new or changing chest pain, SOB or dizziness. Refusing any pain medication. NSR with HR in 60s. BP 90/58, lower while sleeping. She reports this is baseline for her and it is normal for her to drop in 80s systolic while resting. She was reminded not to get up on own and to notify staff of any dizziness. Vitals otherwise stable. Tolerating diet. Voiding in toilet with supervision. IV intact and patent. Right wrist cath site WNL. Call strong within reach.
--- NOTE | 2017-10-12 04:00 | NUR ---
A. Patient reassessed, resting in bed. No changes at this time. She states she has been sleeping well throughout the night. VSS. NSR with HR in 60s. Repositioning on own. Ambulated to toilet. IV intact. She was reminded to use call strong if needing anything.
[2017-10-12 04:41] VITALS: BP 110/64; PULSE 76; TEMP 36.4; O2SAT 92
[2017-10-12] MEDS: LEVOTHYROXINE 50 MCG TAB PO SCH (06:08)
[2017-10-12 07:20] VITALS: BP 95/56; PULSE 74; TEMP 36.6; O2SAT 92
[2017-10-12] MEDS: INSULIN ASPART 100 UNITS/ML 3 ML PEN SC SCH ×3 (07:36→16:15)
[2017-10-12 08:08] LABS: BASO % 0.2 %; BASO ABS # 0.02 K/uL (0-0.2); EOS % 3.3 %; HEMATOCRIT 38.3 % (37-47); HEMOGLOBIN 12.5 g/dL (12.0-16.0); IG# 0.02 K/uL (0.00-0.02); LYMPH % 17.6 %; LYMPH ABS # 1.61 K/uL (1.2-3.4); MEAN CELL VOLUME 99.2 fL (80-100); MEAN CORPUSCULAR HEMOGLOBIN 32.4 pg (25-34); MEAN CORPUSCULAR HGB CONC 32.6 g/dl (32-36); MEAN PLATELET VOLUME 10.4 fL (7.4-10.4); MONO % 8.1 %; MONO ABS # 0.74 K/uL (0.11-0.59); NEUT % 70.6 %; NEUT ABS # 6.45 K/uL (1.4-6.5); PLATELET COUNT 215 K/uL (130-400); RED CELL DISTRIBUTION WIDTH CV 12.9 % (11.5-14.5); RED CELL DISTRIBUTION WIDTH SD 46.3 fL (36.4-46.3); WHITE BLOOD COUNT 9.14 K/uL (4.8-10.8)
--- NOTE | 2017-10-12 08:30 | NUR ---
A: Pt resting in bed upon assess. States she is having chest pain but it is "not as bad as it has been". Is comfortable with pain rating and denies need for medication. Normal sinus with first degree block and IVCD on monitor. Saline locked. Minimal assist. Call strong within reach. Encouraged to ring for assistance. Will continue to monitor.
[2017-10-12 08:37] LABS: CALCIUM 8.5 mg/dl (8.5-10.1); CREATININE 1.11 mg/dl (0.60-1.20); POTASSIUM 4.2 mmol/L (3.5-5.1)
--- NOTE | 2017-10-12 08:38 | NUR ---
OT screen received and completed this date. EMR and nursing notes reviewed. Case management requesting OT/PT evaluations when medically stable
[2017-10-12] MEDS ORDERED: RIVAROXABAN TAB 15 MG TAB PO SCH (09:00)
[2017-10-12] MEDS ORDERED: FUROSEMIDE 20 MG TAB PO SCH (09:00)
[2017-10-12] MEDS ORDERED: AMLODIPINE BESYLATE 5 MG TAB PO SCH (09:00)
[2017-10-12] MEDS: POTASSIUM CHLORIDE 20 MEQ TABCR PO SCH (09:01)
[2017-10-12 09:02] VITALS: BP 112/69; PULSE 80
--- NOTE | 2017-10-12 09:02 | NUR ---
PT screen requested, EMR reviewed. According to case management notes, Pt lives alone. Pt lives in a 1 story house. Pt does not use any assistive devices. Pt does not have home oxygen. Pt is independent with ADLs at baseline. Pt drives. Pt plans to return home at discharge. Recommend PT eval to ensure pt is at baseline level of functioning prior to discharge
[2017-10-12] MEDS: INSULIN GLARGINE SOLOSTAR 100 UNITS/ML 3 ML PEN SC SCH (09:05)
--- NOTE | 2017-10-12 09:23 | Cardiology Follow-Up ---
Subjective Subjective Date of Service: Oct 12, 2017. Pt evaluation today including: conversation w/ patient, physical exam, chart review, lab review, review of studies, review of inpatient medication list Additional Details: Feeling well. "I am ready to go home." Minimal residual chest pain. Still with some shortness of breath with walking around her room. Telemetry reviewed--no events Problem List Medical Problems: (1) Atrial flutter with rapid ventricular response Status: Acute (2) Cardiac ischemia Status: Acute (3) Chest pain Status: Acute (4) Chest pain Status: Acute (5) Failure of outpatient treatment Status: Acute (6) Hypoxia Status: Acute (7) Pneumonia Status: Acute (8) Pulmonary edema Status: Acute Review of Systems Constitutional: No fever Eyes: No worsening of vision ENT: No hearing loss Respiratory: + shortness of breath, No cough Cardiac: + chest pain Abdomen: No pain, No nausea Psychiatric: No depression symptoms Heme: No abnormal bleeding/bruising Endo: + fatigue Skin: No rash Objective Vital Signs Last Vital Signs Documentation Date Time Temp Pulse Resp B/P (MAP) Pulse Ox O2 Delivery O2 Flow Rate FiO2 10/12/17 09:02 80 112/69 (83) 10/12/17 08:30 Room Air 10/12/17 07:20 36.6 20 92 10/11/17 20:39 2.0 Physical Exam: General Appearance: no apparent distress ENT: hearing grossly normal Neck: no JVD, trachea midline Respiratory/Chest: lungs clear, normal breath sounds, no respiratory distress Cardiovascular: regular rate, rhythm, no edema, no gallop, + systolic murmur (2 /6 systolic ejection murmur at right upper sternal border) Abdomen: normal bowel sounds, non tender, soft Extremities: non-tender, normal inspection, no calf tenderness, + pertinent finding (Trace bilateral lower extremity edema) Neurologic/Psychiatric: alert, normal mood/affect, oriented x 3 Skin: normal color, warm/dry, no rash, + pertinent finding (Right radial artery access site-pulse intact, no ecchymosis/hematoma, distal sensation intact ) Assessment and Plan 1. NSTEMI 2. Moderate to severe multivessel coronary artery disease 3. Acute heart failure 4. Atrial flutter 5. Chronic LBBB 6. PAD 7. CKD 8. DM 9. Mod MR/Mild to moderate Post cardiac catheterization yesterday--culprit for mild troponin elevation likely very small 2nd diagonal--vessel too small for intervention Also found to have moderate to severe diffuse mid LAD disease--for now plan to medically manage Based on anatomy, fact that troponin has peaked do not feel that patient's minimal residual rest chest pain is secondary to ongoing coronary ischemia. --from a cardiac standpoint okay for discharge today --can resume prior Xarelto; continue current amiodarone --continue home beta-estephania --continue current clopidogrel --on discharge increase Lasix from 20-40 mg daily--repeat BMP in 1 week --will attempt to optimize antianginal regimen--borderline blood pressure today- -will consider adding low-dose amlodipine versus Ranexa as an outpatient. --if persistent exertional symptoms as an outpatient will consider repeat cardiac catheterization with FFR and possible PCI to LAD --follow-up with Cardiology, Dr. Irizarry in 2-3 weeks. Medications: Current Inpatient Medications Medications (Trade) Dose Ordered Sig/Sedrick Route Start Time Stop Time Status Last Admin Dose Admin Acetaminophen (Tylenol Tab) 650 mg Q4H PRN PO 10/10/17 05:00 11/09/17 04:59 10/11/17 21:24 650 MG Al Hydrox/Mg Hydrox/Simethicone (Maalox Max Susp) 15 ml Q4H PRN PO 10/10/17 05:00 11/09/17 04:59 Magnesium Hydroxide (Milk Of Magnesia Susp) 30 ml Q12H PRN PO 10/10/17 05:00 11/09/17 04:59 Ondansetron HCl (Zofran Inj) 4 mg Q6H PRN IV 10/10/17 05:00 11/09/17 04:59 Nitroglycerin (Nitrostat Tab) 0.4 mg UD PRN SL 10/10/17 05:00 11/09/17 04:59 Polyethylene (Miralax Powder Packet) 17 gm DAILY PRN PO 10/10/17 05:00 11/09/17 04:59 Albuterol (Ventolin Hfa Inhaler) 2 puffs Q6H PRN INH 10/10/17 05:00 11/09/17 04:59 Amiodarone HCl (Cordarone Tab) 200 mg QPM PO 10/10/17 21:00 11/09/17 20:59 10/11/17 21:06 200 MG Clopidogrel Bisulfate (plAVix TAB) 75 mg QPM PO 10/10/17 21:00 11/09/17 20:59 10/11/17 21:06 75 MG Labetalol HCl (Normodyne Tab) 75 mg QPM PO 10/10/17 21:00 11/09/17 20:59 10/10/17 20:26 75 MG Levothyroxine Sodium (Synthroid Tab) 50 mcg DAILYBB PO 10/10/17 06:00 11/09/17 05:59 10/12/17 06:08 50 MCG Magnesium Oxide (Mag-Ox Tab) 400 mg QPM PO 10/10/17 21:00 11/09/17 20:59 10/11/17 21:06 400 MG Potassium Chloride (Klor-Con Tab) 20 meq QAM PO 10/10/17 09:00 11/09/17 08:59 10/12/17 09:01 20 MEQ Ranitidine HCl (zANTac TAB) 150 mg BID PRN PO 10/10/17 05:00 11/09/17 04:59 Insulin Aspart (novoLOG ASPART) SLIDING SCALE G... ACHS SC 10/10/17 07:00 11/09/17 06:59 10/10/17 09:10 4 UNITS Insulin Glargine (Lantus Solostar Pen) 15 units QAM SC 10/10/17 09:00 11/09/17 08:59 Future hold 10/12/17 09:05 15 UNITS Ioversol (Optiray 320) 100 ml UD PRN IV 10/10/17 05:15 10/14/17 05:14 Glucose (Glucose 40% Gel) 15-30 GRAMS 15 GRAMS... UD PRN PO 10/10/17 06:30 11/09/17 06:29 Glucose (Glucose Chew Tab) 4-8 Tablets 4 Tabl... UD PRN PO 10/10/17 06:30 11/09/17 06:29 Dextrose (Dextrose 50% 50ML Syringe) 25-50ML OF 50% DW IV FOR... UD PRN IV 10/10/17 06:30 11/09/17 06:29 Glucagon (Glucagon Inj) 1 mg UD PRN SQ 10/10/17 06:30 11/09/17 06:29 Hydromorphone HCl (Dilaudid Inj) 0.25 mg Q30M PRN IV 10/10/17 09:15 10/24/17 09:14 10/10/17 15:00 0.25 MG Fentanyl Citrate (Fentanyl Inj) 25 mcg Q2H PRN IV 10/10/17 13:45 10/24/17 13:44 10/11/17 08:29 25 MCG Amlodipine Besylate (Norvasc Tab) 2.5 mg QAM PO 10/12/17 09:00 11/11/17 08:59 10/12/17 09:01 2.5 MG Rivaroxaban (Xarelto Tab) 15 mg DAILY PO 10/12/17 09:00 11/11/17 08:59 10/12/17 09:01 15 MG Furosemide (Lasix Tab) 20 mg QAM PO 10/12/17 09:00 11/11/17 08:59 10/12/17 09:01 20 MG Lab Results: 10/12/17 07:53 Red Blood Count 3.86, Mean Corpuscular Volume 99.2, Mean Corpuscular Hemoglobin 32.4, Mean Corpuscular Hemoglobin Concent 32.6, Mean Platelet Volume 10.4, Neutrophils (%) (Auto) 70.6, Lymphocytes (%) (Auto) 17.6, Monocytes (%) (Auto) 8.1, Eosinophils (%) (Auto) 3.3, Basophils (%) (Auto) 0.2, Neutrophils # (Auto) 6.45, Lymphocytes # (Auto) 1.61, Monocytes # (Auto) 0.74, Eosinophils # (Auto) 0.30, Basophils # (Auto) 0.02 10/12/17 07:53 Test 10/12/17 06:50 10/12/17 07:53 Bedside Glucose 138 mg/dl (70-90) White Blood Count 9.14 K/uL (4.8-10.8) Red Blood Count 3.86 M/uL (4.2-5.4) Hemoglobin 12.5 g/dL (12.0-16.0) Hematocrit 38.3 % (37-47) Mean Corpuscular Volume 99.2 fL (80-100) Mean Corpuscular Hemoglobin 32.4 pg (25-34) Mean Corpuscular Hemoglobin Concent 32.6 g/dl (32-36) Platelet Count 215 K/uL (130-400) Mean Platelet Volume 10.4 fL (7.4-10.4) Neutrophils (%) (Auto) 70.6 % Lymphocytes (%) (Auto) 17.6 % Monocytes (%) (Auto) 8.1 % Eosinophils (%) (Auto) 3.3 % Basophils (%) (Auto) 0.2 % Neutrophils # (Auto) 6.45 K/uL (1.4-6.5) Lymphocytes # (Auto) 1.61 K/uL (1.2-3.4) Monocytes # (Auto) 0.74 K/uL (0.11-0.59) Eosinophils # (Auto) 0.30 K/uL (0-0.5) Basophils # (Auto) 0.02 K/uL (0-0.2) RDW Standard Deviation 46.3 fL (36.4-46.3) RDW Coefficient of Variation 12.9 % (11.5-14.5) Immature Granulocyte % (Auto) 0.2 % Immature Granulocyte # (Auto) 0.02 K/uL (0.00-0.02) Anion Gap 6.0 mmol/L (3-11) Est Creatinine Clear Calc Drug Dose 51.6 ml/min Estimated GFR () 55.1 Estimated GFR (Non- 47.5 BUN/Creatinine Ratio 19.0 (10-20) Calcium Level 8.5 mg/dl (8.5-10.1) Magnesium Level 2.3 mg/dl (1.8-2.4)
[2017-10-12 10:53] VITALS: BP 107/66; PULSE 70; TEMP 36.6; O2SAT 92
--- NOTE | 2017-10-12 12:20 | NUR ---
A: Pt sitting at edge of bed eating lunch. Denies complaints. No changes to assessment. Call strong within reach. Encouraged to ring for assistance. Will continue to monitor.
[2017-10-12] MEDS ORDERED: AMLO2.5T PO (15:20)
[2017-10-12] MEDS ORDERED: FRS/40 PO (15:20)
--- NOTE | 2017-10-12 15:25 | Discharge Instructions ---
Discharge Instructions Date of Service Oct 12, 2017. Admission Reason for Admission: Chest Pain, Hypoxia, Pulmonary Edema Discharge Discharge Diagnosis / Problem: NSTEMI,Acute on chronic CHF Discharge Goals Goal(s): Improve disease control, Diagnostic testing, Therapeutic intervention Activity Recommendations Activity Limitations: as noted below Exercise/Sports Limitations: rest today, until after follow-up appointment Shower/Bathe: no limitations . Instructions / Follow-Up Instructions / Follow-Up You were admitted with chest pain and found to have a mild heart attack. You had a cardiac catheterization which showed some blockages of the coronary arteries that at this time were not amenable to being fixed with a procedure. Dr. Bateman of Cardiology would like to medically manage you with medications for your chest pain. You were started on a new medication called amlodipine that helps with chest pain, but also lowers blood pressure. You were also increased on your lasix from 20mg to 40mg once daily. Please follow up with Dr. Irizarry in 2-3 weeks. Please also follow up with your family doctor in 1-2 weeks. Home Care: * Take your medications exactly as directed. Don't skip doses. * Remember that recovery after a heart attack takes time. Plan to rest for at lease 4-8 weeks while you recover. Then return to normal activity when your doctor says it's okay. * Ask your doctor about joining a heart rehabilitation program. * Tell your doctor if you are feeling depressed. Feelings of sadness are common after a heart attack, but it is important that you speak to someone if you are feeling overwhelmed by these feelings. * If you are having chest pain, call 911 for an ambulance. Do NOT drive yourself to the hospital. * Ask your family members to learn CPR. * Learn to take your own blood pressure and pulse. Keep a record of your results. Ask your doctor when you should seek emergency medical attention. He or she will tell you which blood pressure reading is dangerous. Lifestyle Changes: * Maintain a healthy weight. Get help to lose any extra pounds. * Cut back on salt. * Limit canned, dried, packaged, and fast foods. * Don't add salt to your food. * Season foods with herbs instead of salt when you cook. * Break the smoking habit. Enroll in a stop-smoking program to improve your chances of success. * Limit fatty foods. * Ask your doctor about having your lipid levels checked regularly. * Build up your activity according to your doctor's recommendation. * Ask your doctor when it's okay to resume sexual activity. * Try to manage stress. Follow Up: It is important for you to keep your follow up appointments with your medical provider. Current Hospital Diet Patient's current hospital diet: AHA Diet (Heart Healthy) Discharge Diet Recommended Diet: AHA Diet (Heart Healthy), Diabetes Type 2 Diet Fluid Restriction: 1800 ml (7 cups) Procedures Procedures Performed: Cardiac catheterization ECHO Chest xray Chest CT Pending Studies Studies pending at discharge: no Laboratory Results Last 24 Hours Test 10/11/17 16:33 10/11/17 21:01 10/12/17 06:50 10/12/17 07:53 Bedside Glucose 147 mg/dl 142 mg/dl 138 mg/dl White Blood Count 9.14 K/uL Red Blood Count 3.86 M/uL Hemoglobin 12.5 g/dL Hematocrit 38.3 % Mean Corpuscular Volume 99.2 fL Mean Corpuscular Hemoglobin 32.4 pg Mean Corpuscular Hemoglobin Concent 32.6 g/dl Platelet Count 215 K/uL Mean Platelet Volume 10.4 fL Neutrophils (%) (Auto) 70.6 % Lymphocytes (%) (Auto) 17.6 % Monocytes (%) (Auto) 8.1 % Eosinophils (%) (Auto) 3.3 % Basophils (%) (Auto) 0.2 % Neutrophils # (Auto) 6.45 K/uL Lymphocytes # (Auto) 1.61 K/uL Monocytes # (Auto) 0.74 K/uL Eosinophils # (Auto) 0.30 K/uL Basophils # (Auto) 0.02 K/uL RDW Standard Deviation 46.3 fL RDW Coefficient of Variation 12.9 % Immature Granulocyte % (Auto) 0.2 % Immature Granulocyte # (Auto) 0.02 K/uL Sodium Level 138 mmol/L Potassium Level 4.2 mmol/L Chloride Level 106 mmol/L Carbon Dioxide Level 26 mmol/L Anion Gap 6.0 mmol/L Blood Urea Nitrogen 21 mg/dl Creatinine 1.11 mg/dl Est Creatinine Clear Calc Drug Dose 51.6 ml/min Estimated GFR () 55.1 Estimated GFR (Non- 47.5 BUN/Creatinine Ratio 19.0 Random Glucose 138 mg/dl Calcium Level 8.5 mg/dl Magnesium Level 2.3 mg/dl Test 10/12/17 11:18 10/12/17 11:19 Bedside Glucose 250 mg/dl 265 mg/dl Hemoglobin A1c Test 10/10/17 10:31 Range/Units Estimated Average Glucose 163 mg/dl Hemoglobin A1c 7.3 H 4.5-5.6 % Medical Emergencies . Who to Call and When: Medical Emergencies: If at any time you feel your situation is an emergency, please call 911 immediately. Call 911 immediately or go to your nearest Emergency Room if you experience any of the following: Warning Signs and Symptoms of a Heart Attack * Chest pain that is not relieved by medication * Shortness of breath . Non-Emergent Contact Non-Emergency issues call your: Primary Care Provider, Teacher Instrumental Call Non-Emergent contact if: your pain is not controlled, your pain is worsening, your pain is unusual for you, your pain is concerning you, you have any medication questions . . "Provider Documentation" section prepared by Deanna Ren. . AMI Core Measures Reason no ASA as I/P: Drug Allergy Reason no ASA at D/C: Drug Allergy Reason no statin as I/P: Drug intolerance Reason no statin at D/C: Drug intolerance VTE Core Measure Inpt VTE Proph given/why not?: Other Anticoagulation (Xarelto), SCD's
[2017-10-12 15:57] VITALS: BP 107/66; PULSE 70; TEMP 36.6; O2SAT 92
--- NOTE | 2017-10-12 16:45 | NUR ---
A: Discharge instructions reviewed with patient, she verbalized an understanding and had no further questions, saline lock removed with catheter tip intact, cardiac rn removed, patient dressed self, ate her supper, volunteer to lobby via wheelchair
--- NOTE | 2017-10-13 08:27 | Discharge Summary ---
Discharge Summary Date of Service Oct 12, 2017. 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 Pulm HTN LISBETH Chronic LBBB PAF PAD DMII, controlled, on long-term insulin Hypothyroidism CKD stage III Mild to moderate Moderate MR Long-term anticoagulation Immunizations: Have You Had Influenza Vaccine: Unknown History of Tetanus Vaccine?: Unknown History of Pneumococcal: Unknown History of Hepatitis B Vaccine: Unknown Procedures: Cardiac catheterization: Summary of Findings Indication: NSTEMI Access: 6Fr slender right radial artery Catheters: [place] Findings: LM - Calcified distally with 20% stenosis LAD - Moderate caliber vessel, calcified proximally with 20-30% diffuse disease ; 2 sequential mid segment 60-70% lesions; distal luminal irregularities as wraps around apex. Small 2nd diagonal with 99% proximal stenosis. Circumflex - Ostial 30-40% stenosis, diffuse 20% proximal disease. High OM1 20 % ostial stenosis. RCA - Dominant, 40-50% calcified ostium; 20% distal disease; Luminal irregularities in R-PDA, PLB. LVEDP - 17 Arterial Closure: TR Band Summary: 1. Moderate to severe multivessel coronary artery disease - Sequential 60-70% mid LAD lesions; Small 2nd diagonal with 99% proximal stenosis (likely culprit; too small for intervention) - 40-50% ostial RCA - 30-40% ostial circumflex 2. Mildly elevated intracardiac filling pressures Chest xray Chest CT ECHO Consultations: Cardiology Medication Reconciliation New Medications: Furosemide (Lasix) 40 Mg Tab 40 MG PO QAM for 30 Days, #30 TAB Amlodipine Besylate (Norvasc) 2.5 Mg Tab 1 TAB PO DAILY for 30 Days, #30 TAB 0 Refills Continued Medications: Albuterol Hfa (Ventolin Hfa) 200 Puffs/94570 Mcg Aers 2 PUFFS INH Q6H PRN for Bronchitis Episodes, INHALER Amiodarone HCl (Amiodarone HCl) 200 Mg Tab 200 MG PO QPM Clopidogrel Bisulfate (Clopidogrel) 75 Mg Tab 75 MG PO QPM Collagenase (Santyl) 250 Unit/Gm Oin 1 APPLN TOP UD APPLY DIRECTED TO ULCER ON LEFT LEG Fish Oil ([place]-3) 1 Ea Cap 1 CAP PO QPM, CAP Garlic (Garlic) 1,000 Mg Cap 1000 MG PO QAM Insulin Lispro 75/25 (Humalog Mix 75/25) 100 Units/ Inj 1 DOSE SC AMPM, VIAL COVERAGE DIRECTED BY SLIDING SCALE, ADMINISTER BEFORE BREAKFAST AND EVENING MEALS Labetalol HCl (Labetalol HCl) 300 Mg Tab 75 MG PO QPM TAKE 1/4 TABLET (75 MG) DIRECTED Levothyroxine Sodium (Levothyroxine Sodium) 50 Mcg Tab 50 MCG PO QAM, TAB Magnesium Oxide (Mag-Ox) 400 Mg Tab 400 MG PO QPM Potassium Ext Rel (Klor-Con) 20 Meq Tabcr 20 MEQ PO QAM, TAB Ranitidine (Zantac) 150 Mg Tab 150 MG PO BID PRN for Heartburn, TAB Rivaroxaban (Xarelto) 15 Mg Tab 15 MG PO QAM Triamcinolone Acet (Triamcinolone Acetonide) Unknown Strength Oint 1 APPLN TOP BID PRN for Rash, TUBE APPLY AND RUB IN A SMALL FILM TO AFFECTED AREA(S) DIRECTED Vitamin E (Vitamin E 400 Iu) 400 Unit Cap 400 INTER.UNIT PO QAM, CAP Discontinued Medications: Furosemide (Furosemide) 20 Mg Tab 20 MG PO QAM Discharge Exam Pt reports still having some mild substernal CP but not like before. Some mild GOMEZ but no SOB at rest. Discussed case with Cardiology caren. Tele showed some sinus pauses, not second degree AV block as tele monitor thought. Physical Exam General Appearance: WD/WN, no apparent distress Eyes: normal inspection, sclerae normal ENT: hearing grossly normal Neck: trachea midline Respiratory/Chest: lungs clear, normal breath sounds, no respiratory distress, no accessory muscle use Cardiovascular: regular rate, rhythm, no edema, no gallop, 2/6 BARRY at RUSB Abdomen: normal bowel sounds, non tender, soft Extremities: non-tender, normal inspection, no pedal edema, no calf tenderness Neurologic/Psychiatric: alert, normal mood/affect, oriented x 3 Skin: normal color, warm/dry, no rash Review of Systems: Constitutional: No fever Eyes: No problem reported ENT: No problem reported Respiratory: + dyspnea on exertion Cardiovascular: + chest pain Abdomen: No pain, No nausea Musculoskeletal: No problem reported Genitourinary - Female: No problem reported Neurologic: No problem reported Psychiatric: No problem reported Endocrine: No problem reported Hematologic / Lymphatic: No problem reported Integumentary: No problem reported Hospital Course This is a 77 y/o female with a h/o CAD, Chronic systolic CHF and ischemic CM, Pulm HTN, LISBETH, chronic LBBB, PAF, PAD, DMII, hypothyroidism, CKD stage III, who presents with Chest pain, shortness of breath secondary to acute on chronic systolic CHF. Chest Pain/CAD/acute on Chronic combined systolic and diastolic CHF/ischemic CM/ Pulm HTN/LISBETH/Chronic LBBB/PAD//MR- with persistent CP. Troponin became elevated on second set to 0.119 and then trended downward to 0.076 today. Has known underlying CAD. Cannot tolerate NTG and declines, morphine makes her sick. Dilaudid not helping. Fentanyl helped somewhat but the pain never went away. Chest pain improved on the day of discharge but still mildly present SOB improving with IV lasix/diuresis. CT Chest noncontrast without obvious cause but not good for dissection study. BPs stable ECHO: * 1. Normal LV size and wall thickness. * 2. Mild to moderate LV dsyfunction. LVEF 40-45%. Moderate inferolateral, inferior hypokinesis. Abnormal septal motion consistent with conduction abnormality. * 3. Normal RV size and function. * 4. Grade II diastolic dysfunction. * 5. Moderate mitral regurgitation. * 6. Mild to moderate aortic stenosis (PV 2.9, MG 21) * 7. Borderline PH. Est PASP 35-40 mmHg. Est RA 3 mmHg. * 8. Compared with prior study on 02/04/2016: No significant changes Cardiac catheterization on 10/11 showed: "Summary: 1. Moderate to severe multivessel coronary artery disease - Sequential 60-70% mid LAD lesions; Small 2nd diagonal with 99% proximal stenosis (likely culprit; too small for intervention) - 40-50% ostial RCA - 30-40% ostial circumflex 2. Mildly elevated intracardiac filling pressures Recommendations: Suspect small 2nd diagonal likely culprit for patients mild troponin elevation - -> vessel to small for intervention and recommend medical management. Moderate to severe LAD disease potentially flow limiting -- for now recommend optimizing antianginal regimen. If limiting exertional symptoms going forward will consider FFR +/- PCI Continued diuresis Continued ASCVD risk factor modification" -started amlodipine for antianginal effect-low dose due to low blood pressures and can titrate up as needed -continue Plavix-is not on ASA due to h/o PUD -continue labetalol -is intolerant to statins -Cardio consult appreciated -Okay to restart Xarelto -Consider adding on Ranexa as an outpatient -Increasing Lasix to 40 mg daily on discharge -May need repeat cardiac cath with intervention of the LAD if pain persists -Follow up with cardiology in 1-2 weeks PAF-resolved after DCCV in 2016. 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 NSTEMI 2. Moderate to severe multivessel coronary artery disease 3. Acute heart failure 4. Atrial flutter 5. Chronic LBBB 6. PAD 7. CKD 8. DM 9. Mod MR/Mild to moderate Total Time Spent: Greater than 30 minutes This includes examination of the patient, discharge planning, medication reconciliation, and communication with other providers. Discharge Instructions Please refer to the electronic Patient Visit Report (Discharge Instructions) for additional information. Follow-Up With cardiology in 1-2 weeks PCP within 1-2 weeks Additional Copies To Petey Bateman MD; Pro,Boby Montague M.D.
[2017-11-04] MEDS ORDERED: ASPI-320 PO (10:41)
[2017-11-04] MEDS ORDERED: APIX1TAB3 PO (10:41)
[2017-11-04] MEDS ORDERED: NTRSLP4 SL (10:41)
[2017-11-04] MEDS ORDERED: NRV5 PO (10:41)
[2018-01-19] MEDS ORDERED: LEVO75TA5 PO (10:35)
[2018-01-19] MEDS ORDERED: FRS/40 PO (10:35)
[2018-01-19] MEDS ORDERED: APIX1TAB3 PO (10:35)
[2018-01-19] MEDS ORDERED: VITA400C3 PO (10:35)
[2018-01-19] MEDS ORDERED: AMIO200T4 PO (10:35)
[2018-01-19] MEDS ORDERED: LABETALOL PO (10:35)
[2018-01-19] MEDS ORDERED: CLOP1TAB15 PO (10:35)
[2018-01-19] MEDS ORDERED: GARLTAB3 PO (10:35)
[2018-01-19] MEDS ORDERED: MULT-506 PO (10:35)
[2018-01-19] MEDS ORDERED: NVLG SC (10:35)
[2018-01-19] MEDS ORDERED: AMLO5TAB3 PO (10:35)
[2018-01-19] MEDS ORDERED: VNTHFA/IN INH (10:35)
[2018-01-19] MEDS ORDERED: RANI150T85 PO (10:40)
== END 2017-10-12 17:07 | disposition home or self-care (01) | DRG 280 ==
LOC: EDBD 02:56 → C.EDB 02:57 → C.2T 05:02 → ENRESERV 05:33
PROVIDERS: ADMIT Hospitalist; ATTEND Family Medicine
PROC: B211YZZ Fluoroscopy of Multiple Coronary Arteries using Other Contrast (ICD-10-PCS; principal; 2017-10-11 13:30)
PROC: 4A023N7 Measurement of Cardiac Sampling and Pressure, Left Heart, Percutaneous Approach (ICD-10-PCS; principal; 2017-10-11 13:30)
DX: I21.4 Non-ST elevation (NSTEMI) myocardial infarction (principal); I50.43 Acute on chronic combined systolic (congestive) and diastolic (congestive) heart failure; I48.92 Unspecified atrial flutter; I48.0 Paroxysmal atrial fibrillation; N18.3 Chronic kidney disease, stage 3 (moderate); E11.22 Type 2 diabetes mellitus with diabetic chronic kidney disease; E03.9 Hypothyroidism, unspecified; I44.7 Left bundle-branch block, unspecified; Z79.01 Long term (current) use of anticoagulants; Z79.4 Long term (current) use of insulin; Z79.899 Other long term (current) drug therapy; Z88.6 Allergy status to analgesic agent; Z91.040 Latex allergy status

== ENCOUNTER → 2017-10-31 | Outpatient (CLI) | payer OTHER ==
[~2017-10-31] MED LIST changes: -AMIO200T4 PO; +AMLO2.5T PO; -CEPH500C2 PO; -CIPR1TAB11 PO; -CLOP1TAB15 PO; +CRD200 PO; +FRS/40 PO; -FURO-85 PO; +GARL10007 PO; -GARL400T4 PO; +HMLI7525 SC; -LABE100T3 PO; +LBT300 PO; +LEVO50TA6 PO; +MAGN400T6 PO; +OMEG10007 PO; +PLV75 PO; +POTA20TA16 PO; +SNTONWC TOP; +TRMO115 TOP; -VITA400C15 PO; +VITA400C3 PO; +VNTHFA/IN INH; -XRL10 PO; +XRL15 PO; +ZNTT/150 PO
[2017-10-31 14:52] LABS: INR 1.2 (0.9-1.1); PTT PATIENT 32.7 SECONDS (21.0-31.0)
[2017-10-31 15:02] LABS: BLOOD UREA NITROGEN 24 mg/dl (7-18); CALCIUM 9.2 mg/dl (8.5-10.1); CARBON DIOXIDE 31 mmol/L (21-32); CREATININE 1.55 mg/dl (0.60-1.20); GLUCOSE 112 mg/dl (70-99); POTASSIUM 4.4 mmol/L (3.5-5.1); SODIUM 138 mmol/L (136-145)
== END | disposition home or self-care (01) ==
LOC: C.LAB1850 13:11
PROVIDERS: ATTEND Physician Assistant
DX: E78.5 Hyperlipidemia, unspecified (principal); R06.00 Dyspnea, unspecified; I48.92 Unspecified atrial flutter; I42.9 Cardiomyopathy, unspecified; I35.9 Nonrheumatic aortic valve disorder, unspecified; I65.29 Occlusion and stenosis of unspecified carotid artery; R00.1 Bradycardia, unspecified; I25.119 Atherosclerotic heart disease of native coronary artery with unspecified angina pectoris

== ENCOUNTER 2017-11-03 06:51 | Observation (INO) | payer OTHER ==
[~2017-11-03] VITALS: Ht 165.1 cm; Wt 111.7 kg
[2017-11-03] VITALS (25 sets, daily range): BP systolic 53–129; BP diastolic 44–75; PULSE 61–74; TEMP 36.5–36.8; O2SAT 87–97; Ht 165.1 cm; Wt 111.7 kg
[2017-11-03] MEDS ORDERED: MIDAZOLAM HCL 1 MG/ML 2ML VIAL ONE ×2 (07:46→09:29)
[2017-11-03] MEDS ORDERED: HEPARIN SOD (PORCINE) 1000 UNIT/ML 10 ML VIAL ONE ×2 (07:47→09:25)
[2017-11-03] MEDS ORDERED: NITROGLYCERIN/D5W 100MCG/ML 20ML SYR ONE (07:47)
[2017-11-03] MEDS ORDERED: FENTANYL CITRATE INJ 50 MCG/1 ML 2 ML VIAL ONE (07:47)
[2017-11-03] MEDS ORDERED: NiCARDipine HCL INJ 2.5 MG/ML 10 ML AMP ONE (07:47)
--- NOTE | 2017-11-03 08:07 | History & Physical Bridge Note ---
H&P Re-Evaluation Bridge Note: I have examined the patient, reviewed the History & Physical and in the interval since the performance of the History & Physical I have noted the following changes of clinical significance: No changes noted
--- NOTE | 2017-11-03 08:08 | Pre Sedation Assessment ---
Pre Sedation Assessment General Date of Sedation: Nov 03, 2017. Vital Signs Past 12 Hours Date Time Temp Pulse Resp B/P (MAP) Pulse Ox O2 Delivery O2 Flow Rate FiO2 11/03/17 07:13 36.5 72 18 129/75 (93) 95 Room Air Review Cardiovascular: regular rate, rhythm, no edema Lungs: chest non-tender, lungs clear Pre-Sedation Airway Assessment Smoking Status: Never Smoker Hx of Sleep Apnea: No Hx of difficult intubation: No Short Thick Neck: No Thyro-mental Distance: > 3 Finger Breadths Oral Cavity: Dentures Mallampati Classification: Class III ASA Classification: Class III NPO Status Date of Last Intake of Fluids: Nov 02, 2017 Date of Last Intake of Solids: Nov 02, 2017 Procedure Planning Contraindications for Sedation: None Current Medications Reviewed: Yes Notes The planned sedation has been discussed with the patient. Informed Consent was obtained. I have identified the patient, determined the appropriateness of sedation and have assessed the patient immediately prior to the procedure. All medicine(s) and interventions are by my order.
[2017-11-03] MEDS: CLOPIDOGREL BISULFATE 300 MG TAB PO ONE ×2 (09:50→09:55)
[2017-11-03] MEDS ORDERED: GLUCOSE 40% GEL 15 GM TUBE PO PRN (10:00)
[2017-11-03] MEDS ORDERED: ACETAMINOPHEN 325 MG TAB PO PRN (10:00)
[2017-11-03] MEDS ORDERED: NITROGLYCERIN 0.4 MG SL PER TAB CHARGE SL PRN (10:00)
[2017-11-03] MEDS ORDERED: ONDANSETRON INJ 2 MG/ML 2 ML VIAL IV PRN (10:00)
[2017-11-03] MEDS ORDERED: DEXTROSE 50% 50 ML SYR IV PRN (10:00)
[2017-11-03] MEDS ORDERED: GLUCAGON FOR INJ 1 MG VIAL SQ PRN (10:00)
[2017-11-03] MEDS ORDERED: ALBUTEROL HFA 8 GM INHALER INH PRN (10:00)
[2017-11-03] MEDS ORDERED: RANITIDINE HCL 150 MG TAB PO PRN (10:00)
[2017-11-03] MEDS ORDERED: SODIUM CHLORIDE 0.9% 1000ML 1,000 ML IV SCH (10:00)
[2017-11-03] MEDS ORDERED: GLUCOSE 10 TABS/TUBE PO PRN (10:00)
--- NOTE | 2017-11-03 10:12 | Post Sedation Assessment ---
Post Sedation Assessment General Date of Sedation Nov 03, 2017. Vital Signs: Vital Signs Past 12 Hours Date Time Temp Pulse Resp B/P (MAP) Pulse Ox O2 Delivery O2 Flow Rate FiO2 11/03/17 07:13 36.5 72 18 129/75 (93) 95 Room Air Post Procedure Recovery Score Activity: (2) Moves 4 extremities * Respiration: (2) Deep breath/cough Circulation: (2) +/-20% PreAnes Value Consciousness: (2) Fully Awake Oxygen Saturation: (1) O2 needed for >90% Post Anesthesia Score: 9 Discharge Sedation Level of Care: Fast Track Phase II Post Sedation Plan On clinical assessment, the patient appears to have tolerated the sedation without complications. Patient is recovering as anticipated. Patient will continue to be monitored by nursing and may be discharged when sedation discharge criteria are met per below protocol. Upon Completions of procedure and additional 15 minutes continue every 5 minute vital signs and the P.A.R. score; then discharge to a Phase I or Fast Track to Phase II per the following guidelines: * Discharge Patient to appropriate Phase II area if PAR is 8 or greater or return to pre- procedure baseline. The post - procedure orders will be as directed. * If PAR score is less than 8 or not return to pre-procedure baseline then patient will follow Phase I monitoring till PAR is reached for Phase II. The Phase I may be done in procedure room or may call to secure a Phase I area. * If naloxone or flumazenil are used for reversal, hold in Phase I for an additional 60 -120 minutes before discharge to Phase II. Please call the Sedation Physician to re-evaluate and complete post-note for discharge to Phase II area. Do NOT discharge from procedure sedation or Phase 1 until post- sedation evaluation note is complete by procedure /sedation MD Sedation Discharge Instructions to be given to the patient at discharge to home.
[2017-11-03] MEDS ORDERED: IV FLUIDS COMPLETED PRN (10:45)
--- NOTE | 2017-11-03 12:18 | Cardiac Catheterization ---
Procedure Note Procedure Date Nov 03, 2017. Pre-Procedure Diagnosis Angina AUC Score 7 Post-Procedure Diagnosis Severe CAD, Successful PCI Procedure(s) Performed Coronary Angiography, Drug Eluting Stent, Fractional Flow [place] Tool Analyst Fransico Can Carrier(s) Hans Estimated Blood Loss 15 Medication(s) Fentanyl, Heparin, Nicardipine, Nitroglycerin, Versed, Lidocaine 1% Summary of Findings Indication: CCS class III symptoms on maximal medical therapy. Access: 6Fr slender right radial artery Catheters: JR4 guide; EBU 3.5 guide Findings: LM - 20% ostial stenosis with intermittent catheter dampening. Distal segment calcified with 20% stenosis at bifurcation. LAD - Moderate caliber vessel, 40-50% ostial stenosis, calcified proximally with 30% diffuse disease; 2 sequential mid segment 70% lesions; distal luminal irregularities as wraps around apex. Small 2nd diagonal with 99% proximal stenosis. Circumflex - Ostial 40-50% stenosis, diffuse 20% proximal disease. High OM1 30- 40% ostial stenosis. RCA - Dominant, 40-50% calcified ostium; 20% distal disease; Luminal irregularities in R-PDA, PLB. FFR Ostial RCA - JR4 guide; FFR wire placed into mid RCA -- 0.93 FFR Ostial circumflex - EBU 3.5 guide; FFR wire placed into mid circumflex -- 0.89 FFR mid LAD - EBU 3.5 guide; FFR wire placed distal LAD -- 0.59 -- PCI LAD-- Antithrombotic therapy: Heparin, Clopidogrel Procedure: LM cannulated with EBU 3.5 guide BMW wire placed into 2nd diagonal Prowater wire placed across mid LAD lesions into distal LAD Proximal 2nd diagonal lesion gently dilated with 2.0 compliant balloon Mid LAD predilated with 2.0 compliant balloon Dilated lesion stented with 3.0 x 26 Shahid NATY Stent post-dilated with 3.0 noncompliant balloon IC vasodilators administered for spasm Post procedure VIJAYA 3 flow, stent well expanded with minimal residual stenosis and no apparent cardiac complications. Arterial Closure: TR Band Summary: 1. Severe single vessel coronary artery disease - Sequential mid LAD 70% lesions --> iFR 0.59 2. Moderate to severe multivessel disease - 40-50% ostial RCA (iFR 0.93) - 40-50% ostial circumflex (iFR 0.89) - 40-50% ostial LAD 3. 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 Consult cardiac Rehab If refractory angina in the future consider CABG with borderline ostial circumflex/LAD disease and moderate valvular heart disease Hemodynamics Rest Ao: 168/63/105 Final Ao: 159/48/93 LV: -- Recommendations PCI without planned CABG Specimens None Radiation Exposure (mGy) 4858 Contrast (mls) 210 Visi Fluids (cc crystalloids) 280 NSS Drains None Anesthesia Moderate Procedural Complication(s) None Disposition PCU ACC Data Cardiac Status Clinical evaluation leading to the procedure CAD Presntation: Stable angina Anginal Classification: CCS III Heart Failure: No, NYHA Class: CCS I Cardiogenic Shock w/in 24Hrs: No Cardiac Arrest w/in 24Hrs: No Imaging studies past 6 months: Yes Stress studies past 6 months: No Diagnostic Status: Elective Closure Device Percutaneous Entry Location: Radial Closure Device: Radial Band Recommendations: PCI without planned CABG PCI Indication: Angina despite med therapy Lesion Segment Name: mid LAD Culprit Artery: Yes Stenosis Prior to Rx (%): 70 Chronic Total Occlusion: No IVUS: No FFR: Yes (iFR 0.59) Pre-Procedure VIJAYA Flow: 3 Previously Treated Lesion: No Lesion Complexity: Non-High/Non-C Lesion Length (mm): 20 Thrombus Present: No Bifurcation Lesion: No Guidewire Across Lesion: Yes Guidewire: Stenosis Post-Procedure (%): 0 Post-Procedure VIJAYA Flow: 3 Device(s) Deployed: Yes Intraprocedure Events Significant Dissection: No Perforation: No
[2017-11-03] MEDS: INSULIN ASPART 100 UNITS/ML 3 ML PEN SC SCH ×2 (17:29→21:00)
[2017-11-03] MEDS: INSULIN LISPRO 75% / 25% SC SCH (17:30)
[2017-11-03] MEDS ORDERED: AMIODARONE 200 MG TAB PO SCH (21:00)
[2017-11-03] MEDS ORDERED: LABETALOL HCL 100 MG TAB PO SCH (21:00)
[2017-11-03] MEDS ORDERED: MAGNESIUM OXIDE 400 MG TAB PO SCH (21:00)
[2017-11-04 04:00] VITALS: BP 121/60; PULSE 77; TEMP 36.6; O2SAT 96
[2017-11-04 05:54] LABS: BASO % 0.4 %; BASO ABS # 0.03 K/uL (0-0.2); EOS % 3.8 %; EOS ABS # 0.32 K/uL (0-0.5); HEMATOCRIT 38.7 % (37-47); HEMOGLOBIN 12.8 g/dL (12.0-16.0); IG# 0.02 K/uL (0.00-0.02); LYMPH % 23.7 %; LYMPH ABS # 2.02 K/uL (1.2-3.4); MEAN CELL VOLUME 99.5 fL (80-100); MEAN CORPUSCULAR HEMOGLOBIN 32.9 pg (25-34); MEAN CORPUSCULAR HGB CONC 33.1 g/dl (32-36); MEAN PLATELET VOLUME 11.3 fL (7.4-10.4); MONO % 9.6 %; MONO ABS # 0.82 K/uL (0.11-0.59); NEUT % 62.3 %; NEUT ABS # 5.32 K/uL (1.4-6.5); PLATELET COUNT 221 K/uL (130-400); RED CELL DISTRIBUTION WIDTH CV 12.9 % (11.5-14.5); RED CELL DISTRIBUTION WIDTH SD 46.7 fL (36.4-46.3); WHITE BLOOD COUNT 8.53 K/uL (4.8-10.8)
[2017-11-04 06:37] LABS: CALCIUM 8.8 mg/dl (8.5-10.1); CREATININE 1.23 mg/dl (0.60-1.20); POTASSIUM 4.2 mmol/L (3.5-5.1)
[2017-11-04 07:50] VITALS: PULSE 70
[2017-11-04 08:00] VITALS: BP_SYST 144; BP_SYST 84; BP_DIAS 46; BP_DIAS 63; PULSE 77; TEMP 36.6; O2SAT 94
[2017-11-04] MEDS: INSULIN ASPART 100 UNITS/ML 3 ML PEN SC SCH ×2 (08:01→11:00)
[2017-11-04] MEDS: INSULIN LISPRO 75% / 25% SC SCH (08:02)
[2017-11-04] MEDS ORDERED: APIXABAN 2.5 MG TAB PO SCH (09:00)
[2017-11-04] MEDS ORDERED: FUROSEMIDE 40 MG TAB PO SCH (09:00)
[2017-11-04] MEDS ORDERED: AMLODIPINE BESYLATE 5 MG TAB PO SCH ×2 (09:00)
[2017-11-04] MEDS ORDERED: LEVOTHYROXINE 50 MCG TAB PO SCH (09:00)
[2017-11-04] MEDS ORDERED: NTRSLP4 SL (10:41)
[2017-11-04] MEDS ORDERED: NRV5 PO (10:41)
[2017-11-04] MEDS ORDERED: ASPEC81 PO (10:41)
[2017-11-04] MEDS ORDERED: APIX1TAB3 PO (10:41)
--- NOTE | 2017-11-04 10:44 | Discharge Instructions ---
Discharge Instructions Procedure Procedure Date: Nov 04, 2017. Reason for Visit: Coronary Artery Disease, Status Post Coronary... Discharge Discharge Date: Nov 04, 2017. Discharge Diagnosis: Coronary artery disease post coronary stenting Last Recorded Wt (Kilograms): 111.700 Anesthesia Post Anesthesia Instructions: Instructions Activity Recommendations: limitations as noted below Recommended Home Diet: low sodium, low cholesterol Allergies: Coded Allergies: Adhesives (Verified Allergy, Unknown, REDNESS AND IRRITATION FROM PAIN PATCH, TAPE, 05/19/17) Latex (Verified Allergy, Unknown, SEE COMMENT, 05/19/17) PT QUESTIONS ALLERGY TO LATEX DUE TO ADHESIVES ALLERGY Morphine (Verified Allergy, Unknown, swelling nausea vomiting, 05/19/17) Olmesartan (Verified Allergy, Unknown, UNKNOWN, 05/19/17) Aspirin (Verified Adverse Reaction, Mild, GI SYMPTOMS, 05/19/17) HX BLEEDING ULCER-STOMACH IRRITATION WITH ASPIRIN Ezetimibe (Verified Adverse Reaction, Mild, MUSCLE ACHES, 05/19/17) PER PATIENT Lisinopril (Verified Adverse Reaction, Unknown, LIGHTHEADED AND DIZZY, 05/19) Pioglitazone (Verified Adverse Reaction, Unknown, DIARRHEA NAUSEA, 05/19/17) Statins (Verified Adverse Reaction, Unknown, myalgias and weakness, 05/19/17 ) Follow Up Additional Instructions: ACTIVITY RECOMMENDATIONS: Excess manipulation of the wrist should be avoided for the next 24-48 hours. * No lifting over 2 pounds (approximately a 1/2 gallon of milk) with the utilized arm for 24 hours. * No strenuous activity such as bowling or tennis for 3 days. * Keep the site of the procedure covered with a bandage for 24 hours. *You may shower the day after the procedure. Do not take a tub bath or submerge the puncture site in water for the next 3 days. *Do not operate any motorized equipment for 3 days. SPECIAL CARE INSTRUCTIONS: The site may be slightly bruised and sore following your procedure. Should any of the following occur, contact the Dr. who performed your procedure. 1. Redness/inflammation, swelling, chills, or fever, or colored drainage at procedure site within 3-7 days after your procedure. 2. Coldness, discoloration, ongoing numbness, severe pain, or swelling. Expect mild tingling of hand and tenderness at the puncture site for up to three days. If this persists beyond three days, or other symptoms develop, notify the Dr. who performed your procedure. BLEEDING: If the procedure site on your wrist begins to bleed, do not panic 1. Place 1 or 2 fingers firmly just slightly above the insertion site to stop the bleeding. You may be able to feel your pulse as you hold pressure. 2. Lift your finger after 5 minutes to see if the bleeding has stopped. 3. Once the bleeding has stopped, gently wipe the wrist area clean with a bandage. * If the bleeding from your wrist does not stop after 10 minutes, or if there is a large amount of bleeding or spurting, call 911 (do not drive yourself to the hospital). SKIN IRRITATION: * You may experience some redness and/or swelling in the area where radiation was administered. If any skin irritation occurs, please contact your family physician. FOLLOW UP VISIT: Keep any scheduled doctor appointments. Follow-up with: Dr. Irizarry 11/17/2017 1:15 pm Quyen Norman Recommendations: Call your doctor if: * Temperature above 101 degrees * Pain not relieved by pain medicine ordered * There is increased drainage or redness from any incision * You have any unanswered questions or concerns. Your Doctors Instructions noted above were prepared by provider Pascual Bateman. Patient Signature Section: Patient Instructions Signature Page Ban Barry Patient (or Guardian) Signature/Date: I have read and understand the instructions given to me by my caregivers. Caregiver/RN/Doctor Signature/Date: The above-named patient and/or guardian has received patient instructions on this date. + Original Patient Signature Page (only) stays with chart. Please make copy for patient.
--- NOTE | 2017-11-04 11:01 | Discharge Summary ---
Discharge Summary Date of Service Nov 04, 2017. Discharge Summary Admission Date: Nov 03, 2017 at 10:11 Discharge Date: Nov 04, 2017 Discharge Disposition: Home Principal Diagnosis: Coronary Artery Disease Immunizations: Have You Had Influenza Vaccine: Unknown History of Tetanus Vaccine?: Unknown History of Pneumococcal: Unknown History of Hepatitis B Vaccine: Unknown Procedures: 1. Cardiac catheterization via right radial artery 2. iFR of ostial circumflex, ostial RCA, mid LAD 3. PCI with drug-eluting stent to mid LAD Medication Reconciliation New Medications: Aspirin (Aspirin EC Low Dose) 81 Mg Ectab 1 TAB PO DAILY for 30 Days, #30 TAB 1 Refill Amlodipine Besylate (Amlodipine Besylate) 5 Mg Tab 5 MG PO DAILY for 30 Days, #30 TAB 3 Refills Apixaban (Eliquis) 5 Mg Tab 5 MG PO BID for 30 Days, #60 TAB Nitroglycerin (Nitrostat) 0.4 Mg/1 Tab Subl 0.4 MG SL UD PRN for Chest Pain for 30 Days, #30 TAB 3 Refills Continued Medications: Albuterol Hfa (Ventolin Hfa) 200 Puffs/21837 Mcg Aers 2 PUFFS INH Q6H PRN for Bronchitis Episodes, INHALER Amiodarone HCl (Amiodarone HCl) 200 Mg Tab 200 MG PO QPM Clopidogrel Bisulfate (Clopidogrel) 75 Mg Tab 75 MG PO QPM Collagenase (Santyl) 250 Unit/Gm Oin 1 APPLN TOP UD APPLY DIRECTED TO ULCER ON LEFT LEG Fish Oil ([place]-3) 1 Ea Cap 1 CAP PO QPM, CAP Furosemide (Lasix) 40 Mg Tab 40 MG PO QAM for 30 Days, #30 TAB Garlic (Garlic) 1,000 Mg Cap 1000 MG PO QAM Insulin Lispro 75/25 (Humalog Mix 75/25) 100 Units/ Inj 1 DOSE SC AMPM, VIAL COVERAGE DIRECTED BY SLIDING SCALE, ADMINISTER BEFORE BREAKFAST AND EVENING MEALS Labetalol HCl (Labetalol HCl) 300 Mg Tab 75 MG PO QPM TAKE 1/4 TABLET (75 MG) DIRECTED Levothyroxine Sodium (Levothyroxine Sodium) 50 Mcg Tab 50 MCG PO QAM, TAB Magnesium Oxide (Mag-Ox) 400 Mg Tab 400 MG PO QPM Potassium Ext Rel (Klor-Con) 20 Meq Tabcr 20 MEQ PO QAM, TAB Ranitidine (Zantac) 150 Mg Tab 150 MG PO BID PRN for Heartburn, TAB Triamcinolone Acet (Triamcinolone Acetonide) Unknown Strength Oint 1 APPLN TOP BID PRN for Rash, TUBE APPLY AND RUB IN A SMALL FILM TO AFFECTED AREA(S) DIRECTED Vitamin E (Vitamin E 400 Iu) 400 Unit Cap 400 INTER.UNIT PO QAM, CAP Discontinued Medications: Amlodipine Besylate (Norvasc) 2.5 Mg Tab 1 TAB PO DAILY for 30 Days, #30 TAB 0 Refills Rivaroxaban (Xarelto) 15 Mg Tab 15 MG PO QAM Discharge Exam General: Comfortable, no acute distress Eyes: Sclerae anicteric, extraocular movements intact HENT: Oropharynx clear mucous membranes moist Neck: Supple, no lymphadenopathy, no thyromegaly. Lungs: Clear to auscultation bilaterally, no rhonchi or wheezes Cardiac: Regular rate and rhythm, 3/6 systolic ejection murmur heard best at the right upper sternal border. No JVD. No peripheral edema. Extremities well perfused. 40 mmHg blood pressure difference between right and left arm. Right radial artery since access site with no ecchymosis/hematoma, intact distal pulses and sensation Abdomen: Soft, nontender, nondistended positive bowel sounds. No hepatosplenomegaly Musculoskeletal: Normal gait. No joint deformities Skin: No rashes or lesions. Neuro: Cranial nerves 2-12 grossly intact, remainder exam nonfocal Psych: Alert orient x3, normal affect and mood Hospital Course Mrs. Barry this is a pleasant 77-year-old woman with a history of multivessel coronary artery disease, cardiomyopathy EF 40-45 percent, moderate mitral regurgitation, [id number] aortic stenosis, paroxysmal atrial fibrillation , peripheral arterial disease including carotid artery disease status post left CEA and type 2 diabetes who was admitted for observation after PCI to mid LAD. Patient's primary outpatient post exchange manager is Dr. Irizarry. She has had longstanding known moderate CAD. More recently last month she presented with acute onset of chest pain in the setting of NSTEMI. She underwent repeat cardiac catheterization which showed continued moderate disease involving the ostium of her RCA, circumflex and ostial/proximal LAD. She was also noted to have moderate to severe mid LAD disease and a small 2nd diagonal with a subtotal occlusion which was thought to be the likely culprit of her symptoms. She was discharged home on increased amlodipine and increased Lasix for elevated intracardiac filling pressures. She returned for follow-up this week and endorsed limiting chest discomfort, shortness of breath while walking across her home, CCS class 3 symptoms despite 2 antianginals. Decision was made to return to catheter finisher and inspector to assess LAD and moderate ostial RCA/circumflex disease. Repeat cardiac catheterization with IFR was remarkable for nonsignificant ostial RCA lesion (0.93), borderline ostial circumflex lesion (0.89) and hemodynamically significant mid LAD lesions (0.59). PCI of mid-LAD was undertaken with placement of a 3.0 x 26 millimeter Shahid NATY. Also had POBA to small 2nd diagonal. Procedure was uncomplicated and she was admitted to telemetry service post intervention for further monitoring. Overnight she was chest pain-free, still endorses some mild shortness of breath with exertion. Telemetry was remarkable for brief episodes of junctional bradycardia to the 40s but otherwise was electrically stable. Repeat a.m. labs unremarkable and no access site complications on hospital day discharge. Going forward patient to be continued on home apixaban, clopidogrel. Was started on aspirin 81 milligrams and will plan to continue triple therapy for the next month at which time we will drop aspirin. She was continued on current antianginal regimen with labetalol and amlodipine 5 milligrams. If in the future, if patient has refractory angina despite maximal medical therapy consideration would need to be given to possible bypass surgery in the setting of moderate to severe multivessel ostial disease. Patient will follow up with Dr. Irizarry in 2 weeks. Total Time Spent: Less than 30 minutes This includes examination of the patient, discharge planning, medication reconciliation, and communication with other providers. Discharge Instructions Please refer to the electronic Patient Visit Report (Discharge Instructions) for additional information. Follow-Up Dr. Irizarry in 2 weeks
[2017-11-04 12:00] VITALS: BP 108/58; PULSE 70; O2SAT 94
[2017-11-04 12:13] VITALS: BP 108/58; PULSE 70; TEMP 36.6; O2SAT 94
[2017-11-04] MEDS ORDERED: RIVAROXABAN TAB 15 MG TAB PO SCH (16:30)
[2017-11-04] MEDS ORDERED: CLOPIDOGREL BISULFATE 75 MG TAB PO SCH (21:00)
== END 2017-11-04 13:15 | disposition home or self-care (01) ==
LOC: C.CATH 06:51 → ENRESERV 09:53 → C.MSICU 10:11
PROVIDERS: ADMIT Internal Medicine Interventional Cardiology; ATTEND Internal Medicine Interventional Cardiology
DX: I25.119 Atherosclerotic heart disease of native coronary artery with unspecified angina pectoris (principal); I48.92 Unspecified atrial flutter; I34.0 Nonrheumatic mitral (valve) insufficiency; I50.20 Unspecified systolic (congestive) heart failure; I11.0 Hypertensive heart disease with heart failure; E78.5 Hyperlipidemia, unspecified; I35.9 Nonrheumatic aortic valve disorder, unspecified; Z79.82 Long term (current) use of aspirin; Z79.4 Long term (current) use of insulin; Z79.899 Other long term (current) drug therapy; Z79.01 Long term (current) use of anticoagulants

== ENCOUNTER → 2018-01-23 | Outpatient (CLI) | payer OTHER ==
[~2018-01-23] MED LIST changes: +AMIO200T4 PO; +AMLO-110 PO; -AMLO2.5T PO; +APIX1TAB3 PO; +CLOP1TAB15 PO; -CRD200 PO; -GARL10007 PO; +GARLTAB3 PO; -HMLI7525 SC; +LABETALOL PO; -LBT300 PO; -LEVO50TA6 PO; +LEVO75TA5 PO; +MULT-506 PO; +NVLG SC; -OMEG10007 PO; -PLV75 PO; +POTA-639 PO; -POTA20TA16 PO; +RANI150T85 PO; -SNTONWC TOP; -TRMO115 TOP; -XRL15 PO; -ZNTT/150 PO
[2018-01-23 12:59] LABS: HEMATOCRIT 41.4 % (37-47); HEMOGLOBIN 13.4 g/dL (12.0-16.0); MEAN CORPUSCULAR HEMOGLOBIN 32.1 pg (25-34); MEAN CORPUSCULAR HGB CONC 32.4 g/dl (32-36); MEAN PLATELET VOLUME 11.5 fL (7.4-10.4); PLATELET COUNT 263 K/uL (130-400); RED CELL DISTRIBUTION WIDTH CV 12.8 % (11.5-14.5); RED CELL DISTRIBUTION WIDTH SD 46.5 fL (36.4-46.3); WHITE BLOOD COUNT 7.37 K/uL (4.8-10.8)
[2018-01-23 13:20] LABS: HEMOGLOBIN A1C 6.7 % (4.5-5.6)
[2018-01-23 13:26] LABS: ALBUMIN 3.5 gm/dl (3.4-5.0); ALT/SGPT 25 U/L (12-78); AST/SGOT 17 U/L (15-37); BLOOD UREA NITROGEN 29 mg/dl (7-18); CALCIUM 8.6 mg/dl (8.5-10.1); CARBON DIOXIDE 28 mmol/L (21-32); CREATININE 1.69 mg/dl (0.60-1.20); GLUCOSE 145 mg/dl (70-99); POTASSIUM 4.1 mmol/L (3.5-5.1); SODIUM 140 mmol/L (136-145)
[2018-01-23 13:36] LABS: ALKALINE PHOSPHATASE 109 U/L (45-117)
== END | disposition home or self-care (01) ==
LOC: C.LABPBG 08:07
PROVIDERS: ATTEND Internal Medicine
DX: E11.9 Type 2 diabetes mellitus without complications (principal); I48.92 Unspecified atrial flutter; N18.2 Chronic kidney disease, stage 2 (mild)

== ENCOUNTER → 2018-01-24 | Day surgery (SDC) | payer OTHER ==
[2018-01-19 10:36] VITALS: Ht 165.1 cm; Wt 109.1 kg
[~2018-01-24] VITALS: Ht 165.1 cm; Wt 109.1 kg
[~2018-01-24] MED LIST changes: +BUPIVACAINE 0.25% 2.5MG/ML PF 10 ML VIAL ONE; +IOPAMIDOL INJ 61% 15 ML VIAL ONE; +LIDOCAINE HCL 1% MPF 5 ML VIAL ONE
--- NOTE | 2018-01-24 14:51 | [facility] Post Operative Brief Note ---
Immediate Operative Summary Operative Date Jan 24, 2018. Pre-Operative Diagnosis Low back pain Post-Operative Diagnosis Right sacroilitis Procedure(s) Performed Right sacroiliac joint injection Surgeon Dr. Zazueta [employer] Surgeon(s) NA Estimated Blood Loss None Findings Consistent with Post-Op Diagnosis Specimens NA Drains None Complication(s) none Disposition Disposition:
--- NOTE | 2018-01-24 14:52 | Discharge Instructions ---
Discharge Instructions Date of Service Jan 24, 2018. Visit Reason for Visit: Sacroiliitis Discharge Discharge Diagnosis / Problem: low back pain Discharge Goals Goal(s): Decrease discomfort, Improve function Activity Recommendations Activity Limitations: resume your previous activity Anesthesia . Post Anesthesia Instructions: If you have had General Anesthesia or IV Sedation: * Do not drive today. * Resume driving when surgeon permits. * Do not make important decisions or sign legal documents today. * Call surgeon for: 1. Temperature elevations greater than 101 degrees F. 2. Uncontrollable pain. 3. Excessive bleeding. 4. Persistent nausea and vomiting. 5. Medication intolerance (nausea, vomiting or rash). * For nausea and vomiting use only clear liquids such as: tea, soda, bouillon until nausea subsides, then gradually increase diet as tolerated. * If you have any concerns or questions, call your surgeon's office. If physician is unavailable and it is an emergency, call 911 or go to the nearest emergency room. . Diet Recommendations Recommended Home Diet: resume previous diet Procedures Procedures Performed: Right sacroiliac joint injection Pending Studies Studies pending at discharge: no Medical Emergencies . Who to Call and When: Medical Emergencies: If at any time you feel your situation is an emergency, please call 911 immediately. . Non-Emergent Contact Non-Emergency issues call your: Specialist . . "Provider Documentation" section prepared by Gregory Zazueta. .
[2018-01-24 14:53] VITALS: TEMP 37.4
[2018-01-24 15:16] VITALS: BP 123/82; PULSE 66; O2SAT 95
--- NOTE | 2018-01-24 15:49 | OPERATIVE REPORT ---
DATE OF OPERATION: 01/24/2018 PREOPERATIVE DIAGNOSIS: Right sacroiliitis. POSTOPERATIVE DIAGNOSIS: Right sacroiliitis. PROCEDURE: Right sacroiliac joint injection under fluoroscopic guidance. INDICATIONS: Patient is a 77-year-old white female who was evaluated recently in the office. She is known to have a L1 vertebral fracture, but she has localizing pain in the right sacroiliac joint. This was uncomfortable related to the trauma she sustained. She presents today for an SI joint injection to provide her with relief. PHYSICAL EXAMINATION: Pleasant female seated comfortably. She is point tender to palpation of her right SI joint, sciatic notch was nontender. She had no issues with extension but gets some discomfort in a partially flexed position, moving back towards neutral. She has a positive Nallely maneuver and positive sacral compression maneuver on the right. CONSENT: Verbal and written consent was obtained from the patient. Risks and benefits were reviewed. Risks include but are not limited to abscess and allergic reaction. Patient wishes to proceed. DESCRIPTION OF PROCEDURE: Patient was taken back to the special procedures room of [facility]. She was maintained in a prone position. Backside was cleansed with Betadine x3 and a dry sterile dressing was applied. Fluoroscope was used to identify the right sacroiliac joint. The overlying skin was anesthetized with 4 mL of lidocaine 1% with a 25-gauge 1-1/2 inch needle. A 25-gauge 3-1/2 inch spinal needle was then directed down towards the SI joint under fluoroscopic guidance and it showed to be entering the joint. Isovue-300 contrast confirmed intraarticular placement. She then underwent injection after negative aspiration of 40 mg of Depo-Medrol, 1.5 mL of bupivacaine 0.25%, 40 mg of Depo-Medrol. Injection was well tolerated. DISPOSITION: 1. Patient is taken out into the discharge recovery area where she will be discharged home once discharge criteria have been met. 2. Follow up in the [facility] office in 4 weeks' time. I attest to the content of the Intraoperative Record and any orders documented therein. Any exception s are noted below.
== END | disposition home or self-care (01) ==
LOC: X.SURG 13:33
PROVIDERS: ATTEND Physical Medicine & Rehabilitation
DX: M46.1 Sacroiliitis, not elsewhere classified (principal); E11.9 Type 2 diabetes mellitus without complications; N28.9 Disorder of kidney and ureter, unspecified; Z79.02 Long term (current) use of antithrombotics/antiplatelets; Z79.01 Long term (current) use of anticoagulants; Z79.899 Other long term (current) drug therapy; Z86.2 Personal history of diseases of the blood and blood-forming organs and certain disorders involving the immune mechanism; Z83.3 Family history of diabetes mellitus; Z82.49 Family history of ischemic heart disease and other diseases of the circulatory system; Z80.0 Family history of malignant neoplasm of digestive organs

== ENCOUNTER 2018-05-07 12:04 | Inpatient (IN) | payer OTHER ==
[~2018-05-07] VITALS: Ht 165.1 cm; Wt 105.1 kg
[~2018-05-07 12:04] MED LIST changes: -ASPI81TA28 PO; -GARL1TAB8 PO; -HYDR1OIN EXT; -ISOS30TA3 PO; -LABE100T3 PO; -SNTONWC TP; -TRMCR130WC TP; -VITA1TAB4 PO
[2018-05-07] MEDS ORDERED: ISOS30TA3 PO (12:53)
[2018-05-07] MEDS ORDERED: GARL1TAB8 PO (12:53)
[2018-05-07] MEDS ORDERED: TRMCR130WC TP (12:53)
[2018-05-07] MEDS ORDERED: VITA1TAB4 PO (12:53)
[2018-05-07] MEDS ORDERED: SNTONWC TP (12:53)
[2018-05-07] MEDS ORDERED: ASPI81TA28 PO (12:53)
[2018-05-07] MEDS ORDERED: LABE100T3 PO (12:53)
--- NOTE | 2018-05-07 13:16 | DIAGNOSTIC IMAGING REPORT ---
CHEST ONE VIEW PORTABLE CLINICAL HISTORY: Chest pain. Respiratory difficulty. COMPARISON STUDY: Chest radiograph and chest CT October 10, 2017. FINDINGS: There is no pneumothorax. Small bilateral pleural effusions are noted. Interstitial thickening favors pulmonary edema. There are mild hazy bibasilar opacities. Cardiomegaly is unchanged. IMPRESSION: Findings suggestive of mild interstitial pulmonary edema with small bilateral pleural effusions. Electronically signed by: Cali Jacobo M.D. 05/07/2018 1:15 PM Dictated Date/Time: 05/07/2018 1:14 PM
[2018-05-07 13:26] LABS: BASO % 0.3 %; BASO ABS # 0.03 K/uL (0-0.2); EOS % 2.3 %; EOS ABS # 0.21 K/uL (0-0.5); HEMATOCRIT 43.6 % (37-47); HEMOGLOBIN 14.1 g/dL (12.0-16.0); IG# 0.01 K/uL (0.00-0.02); LYMPH % 21.3 %; LYMPH ABS # 1.97 K/uL (1.2-3.4); MEAN CORPUSCULAR HEMOGLOBIN 32.3 pg (25-34); MEAN CORPUSCULAR HGB CONC 32.3 g/dl (32-36); MEAN PLATELET VOLUME 10.9 fL (7.4-10.4); MONO % 7.1 %; MONO ABS # 0.66 K/uL (0.11-0.59); NEUT % 68.9 %; NEUT ABS # 6.36 K/uL (1.4-6.5); PLATELET COUNT 253 K/uL (130-400); RED CELL DISTRIBUTION WIDTH SD 47.3 fL (36.4-46.3); WHITE BLOOD COUNT 9.24 K/uL (4.8-10.8)
[2018-05-07 13:47] LABS: BLOOD UREA NITROGEN 31 mg/dl (7-18); CALCIUM 8.9 mg/dl (8.5-10.1); CARBON DIOXIDE 25 mmol/L (21-32); CKMB 1.6 ng/ml (0.5-3.6); CREATININE 1.62 mg/dl (0.60-1.20); GLUCOSE 155 mg/dl (70-99); POTASSIUM 4.1 mmol/L (3.5-5.1); SODIUM 137 mmol/L (136-145)
[2018-05-07] MEDS ORDERED: FUROSEMIDE 40 MG/4 ML VIAL IV STA (15:01)
[2018-05-07] MEDS ORDERED: MAGNESIUM HYDROXIDE SUSP 30 ML UDC PO PRN (16:30)
[2018-05-07] MEDS ORDERED: RANITIDINE HCL 150 MG TAB PO PRN (16:30)
[2018-05-07] MEDS ORDERED: TRIAMCINOLONE ACET 0.1% CR 15 GM TUBE EXT PRN (16:30)
[2018-05-07] MEDS ORDERED: ONDANSETRON INJ 2 MG/ML 2 ML VIAL IV PRN (16:30)
[2018-05-07] MEDS ORDERED: ALBUTEROL HFA 8 GM INHALER INH PRN (16:30)
[2018-05-07] MEDS ORDERED: COLLAGENASE OINT 30 GM TUBE EXT PRN (16:30)
--- NOTE | 2018-05-07 16:54 | History and Physical ---
History & Physical Date & Time of Service: May 07, 2018 at 16:36 Chief Complaint: Breathing Problems Primary Care Physician: Boby Reddy M.D. History of Present Illness Source: patient 77 y/o F c/o worsening SOB. Pt states this has been going on for the last 2 weeks. She started with SOB with heavier exertion like stairs and it has progressed to issues with even short distances now. She states that when she first lies down for bed, she can fall asleep for about 1 hour, but then wakes SOB and has to move to the recliner. She does not have SOB sitting. She was being seen in radiology for an MRI for back pain assessment when she started to have SOB with lying for this. She was sent to PCP (Dr. Reddy), who sent her to the ED for further eval. Pt takes lasix 40mg QAM and denies missing any doses. Pt feels improved, but was still SOB ambulating to the bathroom. Pt lives alone. Pt states she does feel her aflutter from time to time and if it is prolonged, she gets very "wiped out". She does not feel that she has had more episodes of this over the last few weeks, but cannot say for sure. Pt notes that she had a large "goose egg" on her R knee s/p trauma recently. It caused some R LE swelling and pain, but it has mostly resolved. She does note some slight R LE swelling still at times, including today. She does not have ongoing pain to this region. Pt notes abd cramping that comes and goes for the last few months. She can eat without issue. No n/v/c/d. It is not tied with her SOB. Pt denies fever. Past Medical/Surgical History Medical Problems: (1) Acute kidney failure (2) Atrial flutter (3) Atrial flutter with rapid ventricular response (4) Bronchitis (5) Cardiac ischemia (6) Carotid stenosis, bilateral (7) Carotid stenosis, right (8) Cellulitis (9) Chest pain (10) Chest pain (11) CHF (congestive heart failure) (12) Congestive heart failure (13) Constipation (14) Coronary artery disease (15) Diabetes (16) Failure of outpatient treatment (17) H/O acute myocardial infarction (18) HTN (hypertension) (19) Hypoxia (20) L1 vertebral fracture (21) Pneumonia (22) Pulmonary edema Surgical Problems: (1) Status post coronary artery stent placement Hypothyroid PA 2000, 2016, s/p stent Family History Family history was reviewed; no changes noted. Mother: PA Daughter: hx of cardiac stent Social History Smoking Status: Never Smoker Alcohol Use: none Drug Use: none Marital Status: Housing status: lives alone Occupational Status: retired Immunizations History of Influenza Vaccine: Unknown History of Tetanus Vaccine?: Unknown History of Pneumococcal: Unknown History of Hepatitis B Vaccine: Unknown Allergies Coded Allergies: Adhesives (Verified Allergy, Unknown, REDNESS AND IRRITATION FROM PAIN PATCH, TAPE, 01/24/18) Latex (Verified Allergy, Unknown, ALLERGIC TO LATEX TAPE/RASH/ITCHING, 09/02) PT QUESTIONS ALLERGY TO LATEX DUE TO ADHESIVES ALLERGY Morphine (Verified Allergy, Unknown, swelling nausea vomiting, 01/24/18) Olmesartan (Verified Allergy, Unknown, UNKNOWN, 01/24/18) Aspirin (Verified Adverse Reaction, Mild, GI SYMPTOMS, 01/24/18) HX BLEEDING ULCER-STOMACH IRRITATION WITH ASPIRIN Ezetimibe (Verified Adverse Reaction, Mild, MUSCLE ACHES, 01/24/18) PER PATIENT Lisinopril (Verified Adverse Reaction, Unknown, LIGHTHEADED AND DIZZY, 09/02) Pioglitazone (Verified Adverse Reaction, Unknown, DIARRHEA NAUSEA, 01/24/18 ) Statins (Verified Adverse Reaction, Unknown, myalgias and weakness, ) Home Medications Scheduled Amiodarone Hcl (Cordarone), 200 MG PO QPM Amlodipine (Norvasc), 5 MG PO QAM Apixaban (Eliquis), 5 MG PO BID Aspirin (Aspirin Ec), 81 MG PO QPM Clopidogrel (Plavix), 75 MG PO QPM Furosemide (Lasix), 40 MG PO QAM Garlic (Garlic), 1 TAB PO DAILY Insulin Aspart (Novolog), 1 DOSE SC DIRECTED BID Isosorbide Mononitrate Ext Rel (Imdur Ext Rel), 30 MG PO QAM Labetalol Hcl (Labetalol Hcl), 75 MG PO QPM Levothyroxine Sodium (Levothyroxine Sodium), 1 TAB PO QAM Magnesium Oxide (Mag-Ox), 400 MG PO QPM Multivitamin (Multivitamin), 1 TAB PO QAM Potassium Ext Rel (Klor-Con), 20 MEQ PO QAM Vitamin E (Vitamin E), 400 UNITS PO QAM Scheduled PRN Albuterol Hfa (Ventolin Hfa), 2-4 PUFFS INH Q6H PRN for Shortness of Breath Collagenase (Santyl), 1 APPLN TP UD PRN for LEG ULCER Ranitidine (Zantac), 150 MG PO DAILY PRN for Indigestion Triamcinolone Acet (Aristocort 0.1%), 1 APPLN TP UD PRN for RASH Review of Systems Pertinent positives and negatives reviewed in HPI--all others negative Physical Exam Vital Signs Date Time Temp Pulse Resp B/P (MAP) Pulse Ox O2 Delivery O2 Flow Rate FiO2 05/07/18 15:45 89 20 161/107 96 05/07/18 14:38 76 05/07/18 14:25 69 24 144/93 92 Room Air 05/07/18 12:12 36.4 78 22 161/77 96 Room Air General Appearance: WD/WN, no apparent distress Head: normocephalic, atraumatic Eyes: normal inspection, sclerae normal Respiratory/Chest: no respiratory distress, + crackles (bases, scant) Cardiovascular: regular rate, rhythm, normal peripheral pulses Abdomen/GI: non tender, soft Extremities/Musculoskelatal: no calf tenderness, + pedal edema (R sided, 1+ pitting) Neurologic/Psych: alert, normal mood/affect, oriented x 3 Skin: normal color, warm/dry Diagnostics Laboratory Results Results Past 24 Hours Test 05/07/18 13:13 05/07/18 14:39 Range/Units White Blood Count 9.24 4.8-10.8 K/uL Red Blood Count 4.36 4.2-5.4 M/uL Hemoglobin 14.1 12.0-16.0 g/dL Hematocrit 43.6 37-47 % Mean Corpuscular Volume 100.0 80-100 fL Mean Corpuscular Hemoglobin 32.3 25-34 pg Mean Corpuscular Hemoglobin Concent 32.3 32-36 g/dl Platelet Count 253 130-400 K/uL Mean Platelet Volume 10.9 7.4-10.4 fL Neutrophils (%) (Auto) 68.9 % Lymphocytes (%) (Auto) 21.3 % Monocytes (%) (Auto) 7.1 % Eosinophils (%) (Auto) 2.3 % Basophils (%) (Auto) 0.3 % Neutrophils # (Auto) 6.36 1.4-6.5 K/uL Lymphocytes # (Auto) 1.97 1.2-3.4 K/uL Monocytes # (Auto) 0.66 0.11-0.59 K/uL Eosinophils # (Auto) 0.21 0-0.5 K/uL Basophils # (Auto) 0.03 0-0.2 K/uL RDW Standard Deviation 47.3 36.4-46.3 fL RDW Coefficient of Variation 13.0 11.5-14.5 % Immature Granulocyte % (Auto) 0.1 % Immature Granulocyte # (Auto) 0.01 0.00-0.02 K/uL Prothrombin Time 10.3 9.0-12.0 SECONDS Prothromb Time International Ratio 1.0 0.9-1.1 Sodium Level 137 136-145 mmol/L Potassium Level 4.1 3.5-5.1 mmol/L Chloride Level 104 98-107 mmol/L Carbon Dioxide Level 25 21-32 mmol/L Anion Gap 8.0 3-11 mmol/L Blood Urea Nitrogen 31 7-18 mg/dl Creatinine 1.62 0.60-1.20 mg/dl Est Creatinine Clear Calc Drug Dose 35.3 ml/min Estimated GFR () 34.9 Estimated GFR (Non- 30.1 BUN/Creatinine Ratio 19.4 10-20 Random Glucose 155 70-99 mg/dl Calcium Level 8.9 8.5-10.1 mg/dl Total Creatine Kinase 120 26-192 U/L Creatine Kinase MB 1.6 0.5-3.6 ng/ml Creatine Kinase MB Ratio 1.3 0-3.0 Troponin I < 0.015 0-0.045 ng/ml Pro-B-Type Natriuretic Peptide 1355 0-1800 pg/ml Bedside Glucose 134 70-90 mg/dl Diagnostic Radiology CXR: sm b/l pleural effusions EKG LBBB, seen prior Impression Assessment and Plan 77 y/o F who was admitted on 05/07 with CHF exacerbation CHF exacerbation: acute on chronic diastolic, uncertain as to exacerbating factor, compliant with home meds Seen by PCP today and sent to the ED for eval after becoming SOB with MRI CXR noted for pleural effusions, LE swelling noted ECHO 09/2017 with EF 40-45% and areas of hypokinesis, repeat pending Given lasix 40mg IV in the ED, will hold on further and reassess in AM given some improvement but with elevated cr Trop neg x1, serials pending BNP elevated EKG with LBBB, seen prior Follows with Dr. Bateman if needed ARF: baseline cr is 1.1-1.5 Monitor with increased lasix Aflutter: stable, monitor If worsening, could be reason for CHF exacerbation Continue eliquis Hx of PA: stent placed 10/2017 Was told to d/c aspirin due to GI issues Continue with plavix HTN: continue home meds DM: SSI PRN A1c pending Hypothyroid: continue home meds Other: Full code DM AHA diet Eliquis will cover for DVT proph Resuscitation Status VTE Prophylaxis Will order VTE Prophylaxis: Yes
--- NOTE | 2018-05-07 17:16 | EMERGENCY ROOM VISIT NOTE ---
History Report prepared by Liliam: Skylar Marshall Under the Supervision of: Dr. Yvan Hawthorne D.O. First contact with patient: 12:49 Chief Complaint: RESPIRATORY PROBLEMS Stated Complaint: BREATHING PROBLEMS Nursing Triage Summary: triage note; pt reports she has been short of breath x 1 week. pt reports shortness of breath increases with exertion. pt reports continued back pain and that she had an mri of her back today "dr subramanian ordered it and is supposed to take care of my back." History of Present Illness The patient is a 77 year old female who presents to the Emergency Room with complaints of worsening respiratory problems starting 2 weeks ago. The patient states that she has been getting exertional shortness of breath. She states that it is worse with lying flat. She reports that when she does she can hear her chest rattling. She states that she was here to have an MRI done and became short of breath so they told her to go to her PCP. She states that she went to Dr. Reddy's office and they sent her here. The patient complains of a dry cough. She notes that it started 3 days ago. The patient denies weight gain, chest pain , burning with urination, pain with urination, nausea, vomiting, diarrhea, and abdominal pain. She notes that she takes Plavix and Eliquis. Source of History: patient Onset: 2 weeks ago Quality: other (respiraotry problems) Timing: worsening Modifying Factors (Worsening): exertion, other (lying flat) Associated Symptoms: + cough, No chest pain, No nausea, No vomiting, No abdominal pain, No diarrhea, No urinary symptoms Note: The patient denies weight gain recently. Review of Systems See HPI for pertinent positives & negatives. A total of 10 systems reviewed and were otherwise negative. Past Medical & Surgical Medical Problems: (1) Acute kidney failure (2) Atrial flutter (3) Carotid stenosis, bilateral (4) Carotid stenosis, right (5) Cellulitis (6) CHF (congestive heart failure) (7) Congestive heart failure (8) Coronary artery disease (9) Diabetes (10) H/O acute myocardial infarction (11) HTN (hypertension) (12) L1 vertebral fracture Surgical Problems: (1) Status post coronary artery stent placement Family History FH: myocardial infarction MOTHER Social History Smoking Status: Never Smoker Alcohol Use: none Drug Use: none Marital Status: Housing Status: lives alone Occupation Status: retired Current/Historical Medications Scheduled Amiodarone Hcl (Cordarone), 200 MG PO QPM Amlodipine (Norvasc), 5 MG PO QAM Apixaban (Eliquis), 5 MG PO BID Aspirin (Aspirin Ec), 81 MG PO QPM Clopidogrel (Plavix), 75 MG PO QPM Furosemide (Lasix), 40 MG PO QAM Garlic (Garlic), 1 TAB PO DAILY Insulin Aspart (Novolog), 1 DOSE SC DIRECTED BID Isosorbide Mononitrate Ext Rel (Imdur Ext Rel), 30 MG PO QAM Labetalol Hcl (Labetalol Hcl), 75 MG PO QPM Levothyroxine Sodium (Levothyroxine Sodium), 1 TAB PO QAM Magnesium Oxide (Mag-Ox), 400 MG PO QPM Multivitamin (Multivitamin), 1 TAB PO QAM Potassium Ext Rel (Klor-Con), 20 MEQ PO QAM Vitamin E (Vitamin E), 400 UNITS PO QAM Scheduled PRN Albuterol Hfa (Ventolin Hfa), 2-4 PUFFS INH Q6H PRN for Shortness of Breath Collagenase (Santyl), 1 APPLN TP UD PRN for LEG ULCER Ranitidine (Zantac), 150 MG PO DAILY PRN for Indigestion Triamcinolone Acet (Aristocort 0.1%), 1 APPLN TP UD PRN for RASH Allergies Coded Allergies: Adhesives (Verified Allergy, Unknown, REDNESS AND IRRITATION FROM PAIN PATCH, TAPE, 01/24/18) Latex (Verified Allergy, Unknown, ALLERGIC TO LATEX TAPE/RASH/ITCHING, 09/02) PT QUESTIONS ALLERGY TO LATEX DUE TO ADHESIVES ALLERGY Morphine (Verified Allergy, Unknown, swelling nausea vomiting, 01/24/18) Olmesartan (Verified Allergy, Unknown, UNKNOWN, 01/24/18) Aspirin (Verified Adverse Reaction, Mild, GI SYMPTOMS, 01/24/18) HX BLEEDING ULCER-STOMACH IRRITATION WITH ASPIRIN Ezetimibe (Verified Adverse Reaction, Mild, MUSCLE ACHES, 01/24/18) PER PATIENT Lisinopril (Verified Adverse Reaction, Unknown, LIGHTHEADED AND DIZZY, 09/02) Pioglitazone (Verified Adverse Reaction, Unknown, DIARRHEA NAUSEA, 01/24/18 ) Statins (Verified Adverse Reaction, Unknown, myalgias and weakness, ) Physical Exam Vital Signs Date Time Temp Pulse Resp B/P (MAP) Pulse Ox O2 Delivery O2 Flow Rate FiO2 05/07/18 15:45 89 20 161/107 96 05/07/18 14:38 76 05/07/18 14:25 69 24 144/93 92 Room Air 05/07/18 12:12 36.4 78 22 161/77 96 Room Air Physical Exam GENERAL: Sitting up in bed, no acute distress, nontoxic, talking in full sentences EYE EXAM: normal conjunctiva. OROPHARYNX: no exudate, no erythema, lips, buccal mucosa, and tongue normal and mucous membranes are moist NECK: supple, no nuchal rigidity, no adenopathy, non-tender, positive JVD LUNGS: Crackles in bilateral lungs. Normal chest wall mechanics HEART: no murmurs, S1 normal and S2 normal ABDOMEN: abdomen soft, non-tender, normo-active bowel sounds, no masses, no rebound or guarding. BACK: Back is symmetrical on inspection and there is no deformity, no midline tenderness, no CVA tenderness. SKIN: no rashes and no bruising UPPER EXTREMITIES: upper extremities are grossly normal. LOWER EXTREMITIES: No pitting edema. NEURO EXAM: Normal sensorium, cranial nerves II-XII grossly intact, normal speech, no gross weakness of arms, no gross weakness of legs. Medical Decision & Procedures ER Provider Diagnostic Interpretation: Radiology results as stated below per my review and the radiologist's interpretation: CHEST ONE VIEW PORTABLE CLINICAL HISTORY: Chest pain. Respiratory difficulty. COMPARISON STUDY: Chest radiograph and chest CT October 10, 2017. FINDINGS: There is no pneumothorax. Small bilateral pleural effusions are noted. Interstitial thickening favors pulmonary edema. There are mild hazy bibasilar opacities. Cardiomegaly is unchanged. IMPRESSION: Findings suggestive of mild interstitial pulmonary edema with small bilateral pleural effusions. Electronically signed by: Cali Jacobo M.D. 05/07/2018 1:15 PM Dictated Date/Time: 05/07/2018 1:14 PM Laboratory Results 05/07/18 13:13 Red Blood Count 4.36, Mean Corpuscular Volume 100.0, Mean Corpuscular Hemoglobin 32.3, Mean Corpuscular Hemoglobin Concent 32.3, Mean Platelet Volume 10.9, Neutrophils (%) (Auto) 68.9, Lymphocytes (%) (Auto) 21.3, Monocytes (%) ( Auto) 7.1, Eosinophils (%) (Auto) 2.3, Basophils (%) (Auto) 0.3, Neutrophils # ( Auto) 6.36, Lymphocytes # (Auto) 1.97, Monocytes # (Auto) 0.66, Eosinophils # ( Auto) 0.21, Basophils # (Auto) 0.03 05/07/18 13:13 Test 05/07/18 13:13 05/07/18 14:39 White Blood Count 9.24 K/uL (4.8-10.8) Red Blood Count 4.36 M/uL (4.2-5.4) Hemoglobin 14.1 g/dL (12.0-16.0) Hematocrit 43.6 % (37-47) Mean Corpuscular Volume 100.0 fL (80-100) Mean Corpuscular Hemoglobin 32.3 pg (25-34) Mean Corpuscular Hemoglobin Concent 32.3 g/dl (32-36) Platelet Count 253 K/uL (130-400) Mean Platelet Volume 10.9 fL (7.4-10.4) Neutrophils (%) (Auto) 68.9 % Lymphocytes (%) (Auto) 21.3 % Monocytes (%) (Auto) 7.1 % Eosinophils (%) (Auto) 2.3 % Basophils (%) (Auto) 0.3 % Neutrophils # (Auto) 6.36 K/uL (1.4-6.5) Lymphocytes # (Auto) 1.97 K/uL (1.2-3.4) Monocytes # (Auto) 0.66 K/uL (0.11-0.59) Eosinophils # (Auto) 0.21 K/uL (0-0.5) Basophils # (Auto) 0.03 K/uL (0-0.2) RDW Standard Deviation 47.3 fL (36.4-46.3) RDW Coefficient of Variation 13.0 % (11.5-14.5) Immature Granulocyte % (Auto) 0.1 % Immature Granulocyte # (Auto) 0.01 K/uL (0.00-0.02) Prothrombin Time 10.3 SECONDS (9.0-12.0) Prothromb Time International Ratio 1.0 (0.9-1.1) Anion Gap 8.0 mmol/L (3-11) Est Creatinine Clear Calc Drug Dose 35.3 ml/min Estimated GFR () 34.9 Estimated GFR (Non- 30.1 BUN/Creatinine Ratio 19.4 (10-20) Calcium Level 8.9 mg/dl (8.5-10.1) Total Creatine Kinase 120 U/L (26-192) Creatine Kinase MB 1.6 ng/ml (0.5-3.6) Creatine Kinase MB Ratio 1.3 (0-3.0) Troponin I < 0.015 ng/ml (0-0.045) Pro-B-Type Natriuretic Peptide 1355 pg/ml (0-1800) Bedside Glucose 134 mg/dl (70-90) Laboratory results per my review. Medications Administered Medications (Trade) Dose Ordered Sig/Sedrick Route Start Time Stop Time Status Last Admin Dose Admin Furosemide (Lasix Inj) 40 mg NOW STAT IV 05/07/18 15:01 05/07/18 15:02 DC 05/07/18 15:40 40 MG ECG Per My Interpretation Indication: SOB/dyspnea Rate (beats per minute): 71 Rhythm: sinus rhythm Findings: LBBB, other (no PVCs) Comparison ECG Date: 11/03/2017 Change: no significant change ED Course ED COURSE: Vital signs were reviewed and showed situational hypertension. The patients medical record was reviewed The above diagnostic studies were performed and reviewed. ED treatments and interventions as stated above. 1254: The patient was evaluated in room B10. A complete history and physical examination was performed. 1259: I reviewed EMR records at this time. She had a cardiac catheterization on 11/03/2017. She had severe CAD, LAD 70% stenosis, RCA 50% stenosis, Circumflex 50 % stenosis, Osteo LAD 50% stenosis and had one stent placed. 1448: I reevaluated the patient and she is going to do an ambulatory trial. 1511: Upon reevaluation, the patient is resting comfortably. I discussed my findings with the patient and she understands and agrees with the treatment plan. Based on the patients age, coexisting illnesses, exam and lab findings the decision to treat as an inpatient was made. The patient remained stable while under my care. The patient will be evaluated for further management. 1501: Ordered Lasix Inj 40 mg IV. 1514: I reviewed the patient's case with Dr. Jax CANSECO Hospitalist. She will evaluate the patient for further management. Medical Decision Differential diagnoses includes but is not limited to pneumonia, bronchitis, COPD/Asthma exacerbation, pneumothorax, pulmonary embolism, congestive heart failure, acute coronary syndrome. Patient is a 69-year-old female who presents the ER with past medical history of severe CAD with stents and history of systolic CHF with an EF of 40% along with ischemic cardiomyopathy. Patient has 2 recent cath in the past 6 months. She is on 40 mg of Lasix daily. She has had a 10 pound weight gain in the past week. She has significant dyspnea on exertion. Vitals are stable. CBC along with BMP shows a creatinine 1.6. BSG was slightly elevated at 155. Troponin was negative. BNP was slightly elevated. Chest x-ray confirms bilateral pleural effusions. She does have JVD on exam. EKG shows no significant acute changes. I discussed my findings with cardiology and was going to have her follow-up as an outpatient. She did ambulate and was significantly dyspneic and unable to have a conversation. She does live alone and is really unable to move around. At this time he felt was prudent to observe her overnight. Discussed with internal medicine. She was given 40 mg IV Lasix. Medication Reconcilliation Current Medication List: was personally reviewed by me Blood Pressure Screening Patient's blood pressure: Elevated blood pressure Blood pressure disposition: Elevated BP felt to be situational Consults Time Called: 1511 Consulting Physician: Dr. Jax CANSECO Hospitalist Returned Call: 1514 I reviewed the patient's case with Dr. Jax CANSECO Hospitalist. She will evaluate the patient for further management. Impression Primary Impression: CHF (congestive heart failure) Additional Impressions: Dyspnea on exertion Pleural effusion Scribe Attestation The scribe's documentation has been prepared under my direction and personally reviewed by me in its entirety. I confirm that the note above accurately reflects all work, treatment, procedures, and medical decision making performed by me. Departure Information Dispostion Being Evaluated By Hospitalist Referrals Boby Reddy M.D. (PCP) Patient Instructions My [facility] Problem Qualifiers Primary Impression: CHF (congestive heart failure) Heart failure type: unspecified Heart failure chronicity: unspecified Qualified Codes: I50.9 - Heart failure, unspecified
[2018-05-07 18:19] VITALS: BP 174/93; PULSE 82; TEMP 36.5; O2SAT 93; Ht 165.1 cm; Wt 105.1 kg
[2018-05-07] MEDS ORDERED: DEXTROSE 50% 50 ML SYR IV PRN (18:30)
[2018-05-07] MEDS ORDERED: GLUCOSE 40% GEL 15 GM TUBE PO PRN (18:30)
[2018-05-07] MEDS ORDERED: GLUCOSE 10 TABS/TUBE PO PRN (18:30)
[2018-05-07] MEDS ORDERED: CARBOHYDRATES FOR HYPOGLYCEMIA PO PRN (18:30)
[2018-05-07] MEDS ORDERED: GLUCAGON FOR INJ 1 MG VIAL IM PRN (18:30)
[2018-05-07 20:15] VITALS: O2SAT 93
[2018-05-07] MEDS: CLOPIDOGREL BISULFATE 75 MG TAB PO SCH (20:33)
[2018-05-07] MEDS: LABETALOL HCL 100 MG TAB PO SCH (20:33)
[2018-05-07] MEDS: AMIODARONE 200 MG TAB PO SCH (20:34)
[2018-05-07] MEDS: ACETAMINOPHEN 325 MG TAB PO PRN (20:34)
[2018-05-07] MEDS: APIXABAN 5 MG TAB PO SCH (20:34)
[2018-05-07] MEDS: MAGNESIUM OXIDE 400 MG TAB PO SCH (20:34)
[2018-05-07] MEDS: INSULIN ASPART 100 UNITS/ML 3 ML PEN SC SCH (20:40)
[2018-05-07 23:19] VITALS: BP 158/84; PULSE 89; TEMP 36.8; O2SAT 94
[2018-05-07 23:28] VITALS: BP 112/56; PULSE 65; TEMP 36.4; O2SAT 98
[2018-05-08] VITALS (8 sets, daily range): BP systolic 96–141; BP diastolic 53–79; PULSE 65–72; TEMP 36.6–36.8; O2SAT 91–95
[2018-05-08 05:42] LABS: BLOOD UREA NITROGEN 32 mg/dl (7-18); CALCIUM 8.7 mg/dl (8.5-10.1); CARBON DIOXIDE 31 mmol/L (21-32); CHOLESTEROL 254 mg/dl (0-200); CREATININE 1.84 mg/dl (0.60-1.20); GLUCOSE 121 mg/dl (70-99); LDL CHOLESTEROL CALCULATED 171 mg/dl; POTASSIUM 4.4 mmol/L (3.5-5.1); SODIUM 140 mmol/L (136-145)
[2018-05-08] MEDS: LEVOTHYROXINE 75 MCG TAB PO SCH (06:13)
[2018-05-08 06:24] LABS: HEMOGLOBIN A1C 6.3 % (4.5-5.6)
[2018-05-08] MEDS: ISOSORBIDE MONONITRATE 30 MG TABCR PO SCH (07:56)
[2018-05-08] MEDS: MULTIVITAMIN TAB PO SCH (07:57)
[2018-05-08] MEDS: TOCOPHERYL, DL-ALPHA 400 INTER.UNIT CAP PO SCH (07:57)
[2018-05-08] MEDS: APIXABAN 5 MG TAB PO SCH ×2 (07:58→21:56)
[2018-05-08] MEDS: FUROSEMIDE 40 MG TAB PO SCH (07:58)
[2018-05-08] MEDS: AMLODIPINE BESYLATE 5 MG TAB PO SCH (07:58)
[2018-05-08] MEDS: POTASSIUM CHLORIDE 20 MEQ TABCR PO SCH (07:58)
[2018-05-08] MEDS: INSULIN ASPART 100 UNITS/ML 3 ML PEN SC SCH ×4 (08:01→20:52)
[2018-05-08] MEDS ORDERED: GARLIC PO SCH (09:00)
--- NOTE | 2018-05-08 10:04 | Clinical Documentation Query ---
QUERY 1 OF [address] STARK, In your clinical opinion is this patient being managed for: (x ) Chronic kidney disease, stage 3 ( ) Not Agree ( ) Other explanation of clinical findings (No explanation is considered a No Response) ( ) Unable to determine ( ) Need to Discuss (Phone CDS or qliq) (No discussion is considered a No Response) The medical record reflects the following clinical findings, treatment, and risk factors. Clinical Indicators: 77 yo female presenting with acute on chronic diastolic CHF and TRACY. Review of historical GFR revealed range of 30.3-42 Treatment: monitor PRP, treat comorbid conditions Risk Factors: age, HTN, chronic diastolic CHF, DM, A flutter QUERY 2 OF 2 In your clinical opinion is this patient being managed for: ( x ) Acute on chronic combined systolic and diastolic CHF ( ) Not Agree ( ) Other explanation of clinical findings (No explanation is considered a No Response) ( ) Unable to determine ( ) Need to Discuss (Phone CDS or qliq) (No discussion is considered a No Response) The medical record reflects the following clinical findings, treatment, and risk factors. Clinical Indicators: ECHO 09/2017 with EF 40-45% and grade II diastolic dysfunction. H/P indicates acute on chronic diastolic CHF. Treatment: repeat ECHO pending, chronic meds include cordarone, norvasc, lasix, imdur, labetalol Risk Factors: age, HTN, A flutter, DM, CAD Please clarify and document your clinical opinion in the progress notes and discharge summary. Terms such as "probable", "suspected", "likely", "questionable", "possible", or "still to be ruled out" are acceptable. IF IN AGREEMENT, YOU MUST DOCUMENT ABOVE DIAGNOSTIC STATEMENT IN DAILY PROGRESS NOTES AND DISCHARGE SUMMARY. This document is not part of the patient's record. Thank You, Lisa Bateman, RN [phone]
--- NOTE | 2018-05-08 11:15 | ECHOCARDIOGRAM REPORT ---
*NOTICE TO RECEIVING DEMOCRAT AGENCY This information is strictly Confidential and protected under [place] law. [place] law prohibits you from making any further disclosure of this information unless further disclosure is expressly permitted by the written consent of the person to whom it pertains or is authorized by law. A general authorization for the release of medical or other information is not sufficient for this purpose. Hospital accepts no responsibility if the information is made available to any other person, INCLUDING THE PATIENT. Interpretation Summary * Name: ERIC ROLDAN Study Date: 05/08/2018 09:00 AM BP: 116/53 mmHg * Patient Location: C.2T\S\S232\S\1 HR: 68 * : 1940 (M/d/yy) Gender: Female Height: 65 in * Age: 77 yrs Ethnicity: [place] Weight: 242 lb * Ordering Physician: Roz Ulrich * Referring Physician: Self, Referred * Performed By: Yadira Phillip RCS * * Reason For Study: CHF * BSA: 2.1 m2 * -- Conclusions -- * 1. Normal LV size, mild concentric LVH. * 2. LVEF 45-50%. Inferior wall hypokinesis. Abnormal septal motion consistent with conduction delay. * 3. Normal RV size and function. * 4. Mild to moderate mitral regurgitation. * 5. Mild aortic stenosis. * 6. Grade II diastolic dysfunction. * 7. Borderline pulmonary hypertension. Est PASP 35-40 mmHg. Normal CVP. * 8. Compared with prior study on 10/10/2017: No significant changes. Procedure Details * A complete two-dimensional transthoracic echocardiogram was performed (2D, M-mode, Doppler and color flow Doppler). Left Ventricle * The left ventricle is grossly normal size. * There is mild concentric left ventricular hypertrophy. * Ejection Fraction = 45-50%. * Septal motion is consistent with conduction abnormality. * There is severe inferior wall hypokinesis. Right Ventricle * The right ventricle is grossly normal size. * The right ventricular systolic function is normal as assessed by tricuspid annular plane systolic excursion (TAPSE) (normal >1.5 cm). Atria * The left atrium is mildly dilated. * Right atrium is small. Mitral Valve * The mitral valve is grossly normal. * No significant mitral valve stenosis. * There is mild to moderate mitral regurgitation. Tricuspid Valve * There is trace tricuspid regurgitation. * Right ventricular systolic pressure is elevated at 30-40mmHg. Aortic Valve * The aortic valve is trileaflet. * Mild valvular aortic stenosis. * There is no significant aortic regurgitation. Pulmonic Valve * The pulmonary valve is inadequately visualized, but the Doppler data is adequate for interpretation. * Pulmonic stenosis is absent. * There is no significant pulmonary regurgitation. Great Vessels * The aortic root and proximal ascending aorta are normal sized. Pericardium/Pleural * There is no pericardial effusion. Great Vessels * Normal inferior vena cava size and collapsability with sniff indicates a normal right atrial pressure of 3 mmHg * PASP 35-40mmHg. Left Ventricular Diastolic Function * Diastolic dysfunction, Grade II (pseudonormalization pattern). MMode 2D Measurements and Calculations IVSd 1.5 cm IVSs 1.6 cm LVIDd 4.3 cm LVIDs 3.7 cm LVPWd 1.2 cm LVPWs 1.5 cm IVS/LVPW 1.2 FS 12.7 % EDV(Teich) 81.9 ml ESV(Teich) 59.4 ml EF(Teich) 27.5 % EDV(cubed) 78.1 ml ESV(cubed) 52.0 ml EF(cubed) 33.4 % % IVS thick 7.6 % % LVPW thick 27.8 % LV mass(C)d 211.2 grams LV mass(C)dI 98.5 grams/m\S\2 LV mass(C)s 221.3 grams LV mass(C)sI 103.2 grams/m\S\2 SV(Teich) 22.5 ml SI(Teich) 10.5 ml/m\S\2 SV(cubed) 26.1 ml SI(cubed) 12.2 ml/m\S\2 Ao root diam 3.0 cm Ao root area 7.2 cm\S\2 LVOT diam 2.0 cm LVOT area 3.0 cm\S\2 LVAd ap4 36.3 cm\S\2 LVLd ap4 8.7 cm EDV(MOD-sp4) 120.6 ml EDV(sp4-el) 128.1 ml LVAs ap4 21.3 cm\S\2 LVLs ap4 7.0 cm ESV(MOD-sp4) 53.5 ml ESV(sp4-el) 54.7 ml EF(MOD-sp4) 55.6 % EF(sp4-el) 57.3 % LVAd ap2 39.8 cm\S\2 LVLd ap2 9.0 cm EDV(MOD-sp2) 143.9 ml EDV(sp2-el) 149.8 ml LVAs ap2 24.7 cm\S\2 LVLs ap2 7.7 cm ESV(MOD-sp2) 65.7 ml ESV(sp2-el) 67.7 ml EF(MOD-sp2) 54.3 % EF(sp2-el) 54.8 % LVLd %diff 2.9 % EDV(MOD-bp) 133.1 ml LVLs %diff 8.4 % ESV(MOD-bp) 62.0 ml EF(MOD-bp) 53.5 % SV(MOD-sp4) 67.1 ml SI(MOD-sp4) 31.3 ml/m\S\2 SV(MOD-sp2) 78.2 ml SI(MOD-sp2) 36.5 ml/m\S\2 SV(MOD-bp) 71.2 ml SI(MOD-bp) 33.2 ml/m\S\2 SV(sp4-el) 73.4 ml SI(sp4-el) 34.2 ml/m\S\2 SV(sp2-el) 82.0 ml SI(sp2-el) 38.2 ml/m\S\2 Doppler Measurements and Calculations MV E max chanel 107.8 cm/sec MV A max chanel 97.1 cm/sec MV E/A 1.1 MV P1/2t max chanel 134.6 cm/sec MV P1/2t 74.1 msec MVA(P1/2t) 3.0 cm\S\2 MV dec slope 532.0 cm/sec\S\2 MV dec time 0.18 sec Ao V2 max 183.2 cm/sec Ao max PG 15.2 mmHg Ao max PG (full) 11.1 mmHg Ao V2 mean 195.2 cm/sec Ao mean PG 16.5 mmHg Ao mean PG (full) 14.7 mmHg Ao V2 VTI 62.4 cm DESIRE(I,A) 0.97 cm\S\2 DESIRE(I,D) 0.97 cm\S\2 DESIRE(V,A) 1.6 cm\S\2 DESIRE(V,D) 1.6 cm\S\2 LV V1 max PG 4.1 mmHg LV V1 mean PG 1.8 mmHg LV V1 max 100.6 cm/sec LV V1 mean 63.7 cm/sec LV V1 VTI 20.4 cm MR max chanel 547.4 cm/sec MR max PG 119.9 mmHg SV(Ao) 447.0 ml SI(Ao) 208.4 ml/m\S\2 SV(LVOT) 60.8 ml SI(LVOT) 28.3 ml/m\S\2 PA V2 max 96.6 cm/sec PA max PG 3.7 mmHg TR max chanel 300.2 cm/sec
--- NOTE | 2018-05-08 14:44 | DIAGNOSTIC IMAGING REPORT ---
BILATERAL LOWER EXTREMITY VENOUS DOPPLER CLINICAL HISTORY: Varicose veins, h/o DVT, dyspnea; evaluate for acute DVT. COMPARISON STUDY: Bilateral lower extremity venous Doppler January 25, 2016. TECHNIQUE: Sonography of the deep venous system of the bilateral lower extremities was performed. Compression and augmentation were evaluated. FINDINGS: The bilateral common femoral, superficial femoral and popliteal veins were compressible. Augmentation was normal. Flow was shown within the deep calf vessels. IMPRESSION: No evidence of deep venous thrombus within the bilateral lower extremities. Electronically signed by: Cali Jacobo M.D. 05/08/2018 2:42 PM Dictated Date/Time: 05/08/2018 2:41 PM
--- NOTE | 2018-05-08 16:07 | CARDIOLOGY CONSULTATION ---
DATE OF CONSULTATION: 05/08/2018 PERTINENT HISTORY: Mrs. Barry is a 77-year-old white female admitted yesterday in mildly decompensated congestive failure. This consultation was ordered to assist in her management. Of note, the patient is typically followed by Dr. Irizarry in the outpatient setting. The patient claims she was in her usual state of health until approximately 2 weeks ago when she began to note progressive exertional dyspnea. Just prior to presentation, the patient explains that she could not even walk across her bedroom without becoming short of breath. She was also noting progressive orthopnea and had to sleep in a reclining chair for the last week. The patient went for an MRI of her lumbar spine on the day of presentation. She became short of breath when supine during that study. She was sent to the Emergency Room and noted to be in mildly decompensated congestive failure. She received intravenous Lasix and improved. The patient explains that she is still short of breath when walking across her hospital room. She does not experience exertional angina pectoris. She further denies syncope, presyncope, PND, orthopnea, palpitations, lower extremity edema, and claudication. The patient did have a cardiac catheterization performed in 09/2017 because of a chest pain syndrome. She was found to have a culprit 99% stenosis of a second diagonal branch which was too small for an intervention. She is also noted to have a 20% left main, 60% to 70% sequential stenoses in the mid LAD, 40% to 50% ostial RCA, and 35% ostial LCX stenosis. The patient had placement of a drug-eluting stent in the mid LAD in 10/2017 because of refractory angina. Currently, patient resting comfortably in bed without complaints. PAST MEDICAL HISTORY: 1. Coronary artery disease - see above. 2. Remote inferior NM - 2000. 3. Ischemic cardiomyopathy - 45% to 50%. 4. Chronic combined CHF. 5. Paroxysmal atrial flutter 6. Mild aortic stenosis. 7. Ccnw-qx-wewzvepp mitral regurgitation. 8. Chronic left bundle branch block. 9. Diabetes mellitus. 10. Chronic renal failure. 11. Hypothyroidism. 12. L1 vertebral fracture. 13. Bilateral carotid endarterectomies. 14. Peripheral vascular disease - [id number]-[id number] disease in the right SFA and a 100% right anterior tibial stenosis - 05/2017. MEDICATIONS: 1. Amiodarone 200 mg daily. 2. Norvasc 5 mg per day. 3. Lasix 40 mg per day. 4. Potassium 20 mEq per day. 5. Imdur 30 mg daily. 6. Eliquis 5 mg b.i.d. 7. Labetalol 75 mg daily. 8. Plavix 75 mg daily. 9. Magnesium oxide 400 mg daily. 10. Synthroid 0.075 mg daily. ALLERGIES: Please see list. SOCIAL HISTORY: The patient is a and lives alone. Does not use tobacco or alcohol. FAMILY HISTORY: No early coronary artery disease. REVIEW OF SYSTEMS: A 10-point review of systems was completed and negative except for that described above. PHYSICAL EXAMINATION: GENERAL: This is a mildly obese white female seated in the chair without complaints. VITAL SIGNS: Blood pressure is 100/60 with a regular pulse 72. Respiratory rate is 16. The patient is afebrile at 36.7 degrees Celsius. Saturations 93% on room air. HEENT: Negative. NECK: Supple with full carotid upstrokes. Quiet bruits noted bilaterally. Jugular venous pressure is flat at 90 degrees. A well-healed scar bilaterally. No thyromegaly. CARDIOVASCULAR: Reveals a regular rhythm with normal S1 and S2. A 2/6 basal systolic ejection murmur is noted. No S3. LUNGS: Clear without rales, rhonchi, or wheezes. ABDOMEN: Soft, nontender without bruits. EXTREMITIES: Reveal intact radial artery pulse bilaterally. Trace pretibial edema is noted. DATA: CBC notes hemoglobin 14.1, hematocrit 43.6, white count 9.24, platelet count 253,000. Electrolytes note a sodium of 140, potassium 4.4, chloride 104, bicarbonate 31, BUN 32, creatinine 1.84, glucose 121. Three separate troponin I levels are undetectable at less than 0.015. LDL cholesterol is elevated at 171 with an HDL of 50. BNP is 1355. Echocardiogram notes mildly depressed systolic function with ejection fraction 45% to 50%. There is an inferior wall motion abnormality and evidence of cgzj-uf-szrrccgl mitral regurgitation and mild aortic stenosis. EKG notes sinus rhythm with a complete left bundle branch block. Chest x-ray notes mild CHF. IMPRESSION: Mrs. Barry was admitted with mildly decompensated congestive failure. She seems improved at this time and not hypervolemic. Case was discussed in detail with Dr. Rodriguez. We have decided to proceed with an ischemic workup to rule out coronary disease as a cause of her profound exertional dyspnea. As she has a wall motion abnormality identified, we will proceed with nuclear stress testing. PLAN: 1. Continue usual cardiac medications. 2. Lexiscan stress test tomorrow. 3. Further recommendations pending other clinical course.
--- NOTE | 2018-05-08 17:04 | Progress Note ---
Subjective Date of Service: May 08, 2018. Subjective Pt evaluation today including: conversation w/ patient, physical exam, chart review, lab review, review of studies (echo, dopplers of legs), conversation w/ event management consultant (cardiology), review of inpatient medication list Pain: no chest pain, but has had lower costal chest tightness PO Intake: normal Voiding: no voiding problems tele with mild sinus pauses and ?junctional beats no sustained dysrhythmia patient's dyspnea is improved following diuresis overnight however she still is very short of breath with minimal activities including walking to the bathroom she has had these symptoms for 2+ weeks about 1 month ago she noted worsening fatigue the dyspnea reminds her of her NSTEMI in 09/2017 which led to heart cath and stent to the LAD denies recent travel or illness reports a remote h/o DVT 40 years ago and superficial phlebitis in the past as well denies any recent, significant weight gain Problem List Medical Problems: (1) Atrial flutter with rapid ventricular response Status: Acute (2) Cardiac ischemia Status: Acute (3) Chest pain Status: Acute (4) Chest pain Status: Acute (5) Dyspnea on exertion Status: Acute (6) Failure of outpatient treatment Status: Acute (7) Hypoxia Status: Acute (8) Pleural effusion Status: Acute (9) Pneumonia Status: Acute (10) Pulmonary edema Status: Acute Review of Systems Constitutional: No fever Respiratory: No cough Cardiac: + orthopnea, No chest pain, No edema Abdomen: No pain Objective Vital Signs Date Time Temp Pulse Resp B/P (MAP) Pulse Ox O2 Delivery O2 Flow Rate FiO2 05/08/18 12:00 36.7 72 16 96/68 (77) 93 Room Air 05/08/18 08:30 Room Air 05/08/18 06:34 36.7 67 18 141/71 (94) 93 Room Air 05/08/18 04:15 94 Room Air 05/08/18 04:10 36.8 69 20 116/53 (74) 95 Room Air 05/07/18 23:28 36.4 65 22 112/56 (74) 98 Room Air 05/07/18 20:15 93 Room Air 05/07/18 18:19 36.5 82 21 174/93 93 Room Air 05/07/18 17:48 74 20 142/95 96 05/07/18 17:43 74 20 142/95 96 Room Air 05/07/18 15:45 89 20 161/107 96 05/07/18 14:38 76 05/07/18 14:25 69 24 144/93 92 Room Air Physical Exam General Appearance: no apparent distress, + obese ENT: pharynx normal Neck: no JVD Respiratory/Chest: lungs clear, no respiratory distress, no accessory muscle use, + decreased breath sounds (scant, bases only) Cardiovascular: regular rate, rhythm, no gallop, + systolic murmur (2/6 RUSB) Abdomen: normal bowel sounds, non tender, soft, no organomegaly Extremities: no pedal edema, + pertinent finding (varicose veins especially left leg) Neurologic/Psychiatric: alert, oriented x 3 Laboratory Results Last 24 Hours Test 05/07/18 13:13 05/07/18 14:39 05/07/18 20:20 05/07/18 22:27 White Blood Count 9.24 K/uL Red Blood Count 4.36 M/uL Hemoglobin 14.1 g/dL Hematocrit 43.6 % Mean Corpuscular Volume 100.0 fL Mean Corpuscular Hemoglobin 32.3 pg Mean Corpuscular Hemoglobin Concent 32.3 g/dl Platelet Count 253 K/uL Mean Platelet Volume 10.9 fL Neutrophils (%) (Auto) 68.9 % Lymphocytes (%) (Auto) 21.3 % Monocytes (%) (Auto) 7.1 % Eosinophils (%) (Auto) 2.3 % Basophils (%) (Auto) 0.3 % Neutrophils # (Auto) 6.36 K/uL Lymphocytes # (Auto) 1.97 K/uL Monocytes # (Auto) 0.66 K/uL Eosinophils # (Auto) 0.21 K/uL Basophils # (Auto) 0.03 K/uL RDW Standard Deviation 47.3 fL RDW Coefficient of Variation 13.0 % Immature Granulocyte % (Auto) 0.1 % Immature Granulocyte # (Auto) 0.01 K/uL Prothrombin Time 10.3 SECONDS Prothromb Time International Ratio 1.0 Sodium Level 137 mmol/L Potassium Level 4.1 mmol/L Chloride Level 104 mmol/L Carbon Dioxide Level 25 mmol/L Anion Gap 8.0 mmol/L Blood Urea Nitrogen 31 mg/dl Creatinine 1.62 mg/dl Est Creatinine Clear Calc Drug Dose 35.3 ml/min Estimated GFR () 34.9 Estimated GFR (Non- 30.1 BUN/Creatinine Ratio 19.4 Random Glucose 155 mg/dl Calcium Level 8.9 mg/dl Total Creatine Kinase 120 U/L Creatine Kinase MB 1.6 ng/ml Creatine Kinase MB Ratio 1.3 Troponin I < 0.015 ng/ml < 0.015 ng/ml Pro-B-Type Natriuretic Peptide 1355 pg/ml Bedside Glucose 134 mg/dl 167 mg/dl Test 05/08/18 04:33 05/08/18 06:59 05/08/18 11:48 Sodium Level 140 mmol/L Potassium Level 4.4 mmol/L Chloride Level 104 mmol/L Carbon Dioxide Level 31 mmol/L Anion Gap 5.0 mmol/L Blood Urea Nitrogen 32 mg/dl Creatinine 1.84 mg/dl Est Creatinine Clear Calc Drug Dose 31.1 ml/min Estimated GFR () 29.9 Estimated GFR (Non- 25.8 BUN/Creatinine Ratio 17.2 Random Glucose 121 mg/dl Estimated Average Glucose 134 mg/dl Hemoglobin A1c 6.3 % Calcium Level 8.7 mg/dl Troponin I < 0.015 ng/ml Triglycerides Level 166 mg/dl Cholesterol Level 254 mg/dl HDL Cholesterol 50 mg/dl LDL Cholesterol, Calculated 171 mg/dl VLDL Cholesterol, Calculated 33 mg/dl Cholesterol/HDL Ratio 5.1 Bedside Glucose 142 mg/dl 95 mg/dl Assessment and Plan 77yo female - 1. severe dyspnea especially with exertion - no evidence of ACS/acute MD. Despite diuresis overnight for her acute/chronic CHF she remains dyspneic. I am concerned that some of her dyspnea could be ischemic in nature (she reports that during her 09/2017 NSTEMI she was quite dyspneic), due to VTE, or some other process. She does not appear volume overloaded today. I spoke with Dr. Benitez who will consult. Likely will need stress test tomorrow. In meantime will check dopplers of legs - r/o DVT. There have been cases of failed eliquis and development of VTE. Consider V/Q scan (renal function at this time too borderline for CTA). 2. acute/chronic systolic/diastolic CHF - improved clinically and appears euvolemic today. Creatinine kaiser overnight as well. No further IV lasix. Continue usual cardiac meds including PO lasix. 3. CKD stage 3 - baseline creatinine appears to be about 1.6. Minimal acute kidney injury from diuresis. BMP am. 4. CAD with prior stent to LAD 10/01 - cardiac cath report from [address] Benitez consulted and in light of symptoms, echo findings, etc will proceed with lexiscan nuclear stress test in am. NPO after MN for this. Cont BB, plavix, imdur. Not statin candidate - cannot tolerate them. 5. hypothyroidism - TSH 01/2018 wnl; continue synthroid as is. 6. h/o a. flutter - has remained in NSR during this stay thus far. Continue amiodarone. Continue eliquis. 7. morbid obesity with BMI 39 8. T2DM - controlled with novolog correction/carb coverage. 9. DVT proph - eliquis. 10. FEN - NPO after MN tonight; lyes stable; check bmp/mag in am. Continued [facility] stay due to: other (need for stress test) Discharge planning: home
[2018-05-08] MEDS: LABETALOL HCL 100 MG TAB PO SCH (21:56)
[2018-05-08] MEDS: AMIODARONE 200 MG TAB PO SCH (21:56)
[2018-05-08] MEDS: MAGNESIUM OXIDE 400 MG TAB PO SCH (21:57)
[2018-05-08] MEDS: CLOPIDOGREL BISULFATE 75 MG TAB PO SCH (21:58)
[2018-05-08] MEDS: ACETAMINOPHEN 325 MG TAB PO PRN (22:02)
[2018-05-09] VITALS (18 sets, daily range): BP systolic 92–122; BP diastolic 58–73; PULSE 63–78; TEMP 36.4–37; O2SAT 90–95
[2018-05-09] MEDS: LEVOTHYROXINE 75 MCG TAB PO SCH (06:02)
[2018-05-09 06:33] LABS: CALCIUM 8.4 mg/dl (8.5-10.1); CREATININE 1.91 mg/dl (0.60-1.20); POTASSIUM 4.7 mmol/L (3.5-5.1)
[2018-05-09] MEDS: INSULIN ASPART 100 UNITS/ML 3 ML PEN SC SCH ×4 (07:00→20:54)
[2018-05-09] MEDS: ISOSORBIDE MONONITRATE 30 MG TABCR PO SCH (07:26)
[2018-05-09] MEDS: AMLODIPINE BESYLATE 5 MG TAB PO SCH (07:27)
[2018-05-09] MEDS: FUROSEMIDE 40 MG TAB PO SCH (07:27)
[2018-05-09] MEDS: TOCOPHERYL, DL-ALPHA 400 INTER.UNIT CAP PO SCH (07:27)
[2018-05-09] MEDS: APIXABAN 5 MG TAB PO SCH ×2 (07:27→20:55)
[2018-05-09] MEDS: MULTIVITAMIN TAB PO SCH (07:27)
[2018-05-09] MEDS: POTASSIUM CHLORIDE 20 MEQ TABCR PO SCH (07:28)
[2018-05-09] MEDS ORDERED: REGADENOSON 0.4 MG/5 ML SYR ONE (11:31)
[2018-05-09] MEDS ORDERED: NITROGLYCERIN 0.4 MG SL PER TAB CHARGE ONE ×2 (13:20→13:28)
[2018-05-09] MEDS ORDERED: NITROGLYCERIN 2% OINTMENT 30GM TUBE EXT ONE (13:45)
[2018-05-09] MEDS ORDERED: NURSING VERBAL MED ORDER ONE (14:00)
[2018-05-09] MEDS ORDERED: FENTANYL CITRATE INJ 50 MCG/1 ML 2 ML VIAL ONE (15:10)
[2018-05-09] MEDS ORDERED: MIDAZOLAM HCL 1 MG/ML 2ML VIAL ONE (15:10)
[2018-05-09] MEDS ORDERED: NiCARDipine HCL INJ 2.5 MG/ML 10 ML AMP ONE (15:11)
[2018-05-09] MEDS ORDERED: HEPARIN SOD (PORCINE) 1000 UNIT/ML 10 ML VIAL ONE (15:11)
[2018-05-09] MEDS ORDERED: NITROGLYCERIN/D5W 100MCG/ML 20ML SYR ONE (15:13)
--- NOTE | 2018-05-09 15:29 | CARDIOLOGY PROGRESS NOTE ---
DATE: 05/09/2018 SUBJECTIVE: Mrs. Barry was seen immediately after her Lexiscan stress test. She was complaining of nausea and severe jaw discomfort. She received 2 sublingual nitroglycerin and 1 dose of intravenous metoprolol. For approximately 30 minutes, her symptoms resolved. We have discussed her abnormal Lexiscan study suggesting anterior wall ischemia and the need for cardiac catheterization. This was discussed with Dr. Bateman, who plans to proceed with a diagnostic cardiac catheterization later this afternoon. Patient is seen with Dr. Rodriguez. OBJECTIVE: VITAL SIGNS: Blood pressure 110/68, with a regular pulse of 76, respiratory rate is 18, the patient is afebrile at 36.5 degrees Celsius, saturation is 95% on room air. NECK: Supple, with full carotid upstrokes. No carotid bruits. Jugular venous pressure is flat at 90 degrees. There is no thyromegaly. CARDIOVASCULAR: Exam reveals a regular rhythm, with normal S1 and S2. A 2/6 crescendo-decrescendo systolic murmur heard loudest at the base. RESPIRATORY: Lungs are clear without rales, rhonchi, or wheezing. GASTROINTESTINAL: Abdomen is soft, nontender, without bruits. VASCULAR: Extremities reveal intact radial artery pulse bilaterally. Trace pretibial edema is noted. DATA: Electrolytes noted sodium 140, potassium 4.7, chloride 105, bicarbonate 31, BUN 37, creatinine 1.9, and a glucose of 125. EKG notes sinus rhythm, with complete left bundle-branch block. This is unchanged from a prior tracing. publications sales representative is benign. Lexiscan stress test notes anterior wall reversible defect consistent with ischemia. IMPRESSION AND PLAN: 1. Acute coronary syndrome, as above. Patient will be taken to the cardiac catheterization laboratory within the next hour by Dr. Bateman. She is now symptom free. 2. Known coronary artery disease. Patient had a mid LAD drug-eluting stent placed in October 2017. Cardiac catheterization in September 2018 noted a 20% left main, 40%-50% ostial right coronary, and 35% ostial left circumflex stenosis. 3. Remote inferior wall myocardial infarction in 2000. 4. Ischemic cardiomyopathy, ejection fraction of 45%-50%. 5. Chronic combined congestive heart failure, compensated at this time. 6. Paroxysmal atrial flutter, sinus rhythm on amiodarone. 7. Mild aortic stenosis. 8. Mild to moderate mitral regurgitation. 9. Chronic left bundle-branch block. 10. Diabetes mellitus. 11. Chronic renal failure. 12. Bilateral carotid endarterectomies. 13. Peripheral vascular disease.
[2018-05-09] MEDS ORDERED: ADENOSINE IV SOLN 3 MG/ML 20 ML VIAL ONE (15:49)
--- NOTE | 2018-05-09 16:50 | Pre Sedation Assessment ---
Pre Sedation Assessment General Date of Sedation: May 09, 2018. Vital Signs Past 12 Hours Date Time Temp Pulse Resp B/P (MAP) Pulse Ox O2 Delivery O2 Flow Rate FiO2 05/09/18 16:21 76 16 103/61 (75) 97 Room Air 05/09/18 16:18 76 16 115/68 (84) 96 Room Air 05/09/18 16:13 76 14 127/72 (90) 96 Room Air 05/09/18 14:10 37.0 76 18 122/64 (83) 95 Room Air 05/09/18 13:00 76 18 109/68 (82) 95 Room Air 05/09/18 08:00 94 Room Air 05/09/18 07:34 36.5 76 19 118/70 (86) 94 Room Air Review Cardiovascular: regular rate, rhythm, no edema Lungs: chest non-tender, lungs clear Pre-Sedation Airway Assessment Smoking Status: Never Smoker Hx of Sleep Apnea: No Short Thick Neck: No Oral Cavity: Dentures Mallampati Classification: Class II ASA Classification: Class I NPO Status Date of Last Intake of Fluids: May 09, 2018 Time of Last Intake of Fluids: 1200 Date of Last Intake of Solids: May 08, 2018 Time of Last Intake of Solids: 1700 Procedure Planning Contraindications for Sedation: None Current Medications Reviewed: Yes Notes The planned sedation has been discussed with the patient. Informed Consent was obtained. I have identified the patient, determined the appropriateness of sedation and have assessed the patient immediately prior to the procedure. All medicine(s) and interventions are by my order.
--- NOTE | 2018-05-09 16:51 | Post Sedation Assessment ---
Post Sedation Assessment General Date of Sedation May 09, 2018. Vital Signs: Vital Signs Past 12 Hours Date Time Temp Pulse Resp B/P (MAP) Pulse Ox O2 Delivery O2 Flow Rate FiO2 05/09/18 16:21 76 16 103/61 (75) 97 Room Air 05/09/18 16:18 76 16 115/68 (84) 96 Room Air 05/09/18 16:13 76 14 127/72 (90) 96 Room Air 05/09/18 14:10 37.0 76 18 122/64 (83) 95 Room Air 05/09/18 13:00 76 18 109/68 (82) 95 Room Air 05/09/18 08:00 94 Room Air 05/09/18 07:34 36.5 76 19 118/70 (86) 94 Room Air Post Procedure Recovery Score Activity: (2) Moves 4 extremities * Respiration: (2) Deep breath/cough Circulation: (2) +/-20% PreAnes Value Consciousness: (2) Fully Awake Oxygen Saturation: (2) > 92% On Room Air Post Anesthesia Score: 10 Discharge Sedation Level of Care: Fast Track Phase II Post Sedation Plan On clinical assessment, the patient appears to have tolerated the sedation without complications. Patient is recovering as anticipated. Patient will continue to be monitored by nursing and may be discharged when sedation discharge criteria are met per below protocol. Upon Completions of procedure and additional 15 minutes continue every 5 minute vital signs and the P.A.R. score; then discharge to a Phase I or Fast Track to Phase II per the following guidelines: * Discharge Patient to appropriate Phase II area if PAR is 8 or greater or return to pre- procedure baseline. The post - procedure orders will be as directed. * If PAR score is less than 8 or not return to pre-procedure baseline then patient will follow Phase I monitoring till PAR is reached for Phase II. The Phase I may be done in procedure room or may call to secure a Phase I area. * If naloxone or flumazenil are used for reversal, hold in Phase I for an additional 60 -120 minutes before discharge to Phase II. Please call the Sedation Physician to re-evaluate and complete post-note for discharge to Phase II area. Do NOT discharge from procedure sedation or Phase 1 until post- sedation evaluation note is complete by procedure /sedation MD Sedation Discharge Instructions to be given to the patient at discharge to home.
--- NOTE | 2018-05-09 17:06 | Cardiac Catheterization ---
Procedure Note Procedure Date May 09, 2018. Pre-Procedure Diagnosis Positive Stress Test AUC Score 7 Post-Procedure Diagnosis Moderate CAD Procedure(s) Performed Coronary Angiography, Left Heart Cath Food Products Tester [place] [facility] Specialist(s) [place] Estimated Blood Loss 10 Medication(s) Fentanyl, Heparin, Nicardipine, Nitroglycerin, Versed, Lidocaine 1% Summary of Findings Indication: Positive stress test; suspected ACS Access: 6Fr right radial artery Catheters: [place] Findings: LM - 20% ostial stenosis without catheter dampening. Distal segment calcified with 20% stenosis at bifurcation. LAD - Moderate caliber vessel, 40-50% ostial stenosis, calcified proximally with 30% diffuse disease; widely patent mid segment stent without significant ISR: -- Small 2nd diagonal sub-totally occluded proximally with TIMI1 flow Circumflex - Ostial 40-50% stenosis, diffuse 20% proximal disease. High OM1 40- 50% ostial stenosis. RCA - Dominant, 50-60% calcified ostium; 20% distal disease; Luminal irregularities in R-PDA, PLB. LVEDP - 22 Arterial Closure: TR Band Summary: 1. Moderate non-obstructive coronary artery disease in major epicardial vessels - Mid LAD stent widely patent - 2nd diagonal subtotally occluded -- worse from 10/2017 2. Elevated intracardiac filling pressure Recommendations: Maximize antianginal therapy. 2nd diagonal too small for intervention. Continued ASCVD risk factor modification Titrate antihypertensives, diuretics in setting of elevated LVEDP. Hemodynamics Rest Ao: 136/60/90 Final Ao: 147/58/90 LV: 171/22 Recommendations Medical therapy and/or Counseling Specimens None Radiation Exposure (mGy) 1262 Contrast (mls) 50 Visi Fluids (cc crystalloids) 45 NSS Drains none Anesthesia moderate Procedural Complication(s) None Disposition PCU [facility] Data Cardiac Status Clinical evaluation leading to the procedure CAD Presntation: Unstable angina, Positive Stress Test Anginal Classification: CCS IV Heart Failure: No, NYHA Class: CCS I Cardiogenic Shock w/in 24Hrs: No Cardiac Arrest w/in 24Hrs: No Imaging studies past 6 months: Yes Stress studies past 6 months: Yes Stress Testing w/SPECT MPI: Yes - Positive, Risk/Extent of Ischemia (High) Closure Device Percutaneous Entry Location: Radial Closure Device: Radial Band Recommendations: Medical therapy and/or Counseling Intraprocedure Events Significant Dissection: No Perforation: No
[2018-05-09] MEDS ORDERED: SODIUM CHLORIDE 0.9% 1000ML 1,000 ML IV SCH (17:15)
--- NOTE | 2018-05-09 19:58 | MYOCARDIAL PERFUSION SCAN ---
ONE-DAY NUCLEAR MEDICINE TECHNETIUM-99M CARDIOLITE MYOCARDIAL PERFUSION SCAN CLINICAL HISTORY: The patient has known coronary artery disease having a drug-eluting stent placed in the mid LAD back in October of this year. She presents with profound exertional dyspnea. COMPARISON: None. TECHNIQUE: For the stress portion of the study, 31.9 mCi of Technetium 99 m Cardiolite IV was injected at 11:35 a.m. on 05/09/2018. Thirty minutes following the injection, imaging of the heart was performed in multiple projection. For the rest portion of the study, 10.75 mCi of Technetium 99 m Cardiolite was injected IV at 9:40 a.m. One hour following the injection, imaging of the heart was performed in the same projections. For the stress portion of the study, 0.4 mg of Lexiscan was injected intravenously as per protocol. The patient did not experience chest pain, but did note some dyspnea with infusion. She was given 60 mg of intravenous caffeine with complete resolution of her symptoms. Baseline EKG notes sinus rhythm with a complete left bundle branch block pattern. No changes over this baseline abnormality. Following the study, the patient was hemodynamically stable without complaints. FINDINGS: The short axis, vertical long axis, and horizontal long axis images were reviewed in detail. There is a moderate-sized perfusion defect present at stress, which notes normal perfusion at rest involving the mid and distal anterior wall. All other amato demonstrate normal perfusion at both stress and rest. This is consistent with coronary ischemia in the anterior distribution. The left ventricle demonstrates mildly reduced systolic performance with an ejection fraction of 41%. There is a small area of hypokinesis involving the distal anterior wall. Other amato function normally. CONCLUSIONS: 1. Scintigraphic evidence of mid and distal anterior wall ischemia. 2. No Lexiscan-induced chest pain. 3. No Lexiscan-induced EKG changes over the baseline abnormality. 4. Mildly reduced left ventricular ejection fraction of 41% with an anterior wall motion abnormality.
[2018-05-09] MEDS: MAGNESIUM OXIDE 400 MG TAB PO SCH (20:55)
[2018-05-09] MEDS: LABETALOL HCL 100 MG TAB PO SCH (20:56)
[2018-05-09] MEDS: CLOPIDOGREL BISULFATE 75 MG TAB PO SCH (20:57)
[2018-05-09] MEDS: AMIODARONE 200 MG TAB PO SCH (20:58)
[2018-05-09] MEDS: ACETAMINOPHEN 325 MG TAB PO PRN (21:08)
[2018-05-10] VITALS (9 sets, daily range): BP systolic 106–138; BP diastolic 58–74; PULSE 63–71; TEMP 36.5–36.8; O2SAT 92–94
--- NOTE | 2018-05-10 05:16 | Progress Note ---
Subjective Date of Service: May 09, 2018. Subjective Pt evaluation today including: conversation w/ patient, conversation w/ family (son by phone), physical exam, chart review, lab review, review of studies ( stress test, EKG, cardiac cath), conversation w/ agriculture consultant (cardiology - multiple), review of inpatient medication list Pain: jaw pain, abd pain PO Intake: npo Voiding: no voiding problems I saw the patient post stress test Pt had reported that shortly after the stress test she developed fairly significant jaw pain, abdominal discomfort, nausea, headache, and "didn't feel right" repeat EKG was unchanged (chronic LBBB) I administered SL nitro x 1 with improvement in jaw pain another SL nitro was then administered w/ resolution of most of the symptoms Dr. Benitez from cardiology was informed of her symptoms He quickly assessed her at bedside and then obtained her stress test results which appeared to show an area of ischemia in the anterior wall Dr. Bateman was then asked to perform cardiac cath which subsequently occurred a short time later this showed LAD stent patency and moderate, nonobstructive CAD in her other major vessels an ostial lesion was worse than previous cath no stents were placed and medical management was recommended tele remained normal overnight and throughout the events of the afternoon Problem List Medical Problems: (1) Atrial flutter with rapid ventricular response Status: Acute (2) Cardiac ischemia Status: Acute (3) Chest pain Status: Acute (4) Chest pain Status: Acute (5) Dyspnea on exertion Status: Acute (6) Failure of outpatient treatment Status: Acute (7) Hypoxia Status: Acute (8) Pleural effusion Status: Acute (9) Pneumonia Status: Acute (10) Pulmonary edema Status: Acute Review of Systems Constitutional: No fever Respiratory: No cough Cardiac: No chest pain, No orthopnea, No PND, No edema Abdomen: + see HPI, + pain, + nausea, No vomiting Objective Vital Signs Date Time Temp Pulse Resp B/P (MAP) Pulse Ox O2 Delivery O2 Flow Rate FiO2 05/09/18 14:10 37.0 76 18 122/64 (83) 95 Room Air 05/09/18 13:00 76 18 109/68 (82) 95 Room Air 05/09/18 08:00 94 Room Air 05/09/18 07:34 36.5 76 19 118/70 (86) 94 Room Air 05/09/18 02:52 36.5 70 17 121/64 (83) 95 Room Air 05/09/18 00:01 Room Air 05/08/18 23:22 36.7 65 17 126/72 (90) 91 Room Air 05/08/18 19:58 36.6 70 16 130/70 (90) 92 Room Air 05/08/18 16:00 94 Room Air 05/08/18 15:35 36.7 72 20 126/79 (95) 94 Room Air Physical Exam General Appearance: + mild distress (very uncomfortable appearing) ENT: pharynx normal Neck: no JVD Respiratory/Chest: lungs clear, no respiratory distress, no accessory muscle use Cardiovascular: regular rate, rhythm, no gallop, no JVD, + systolic murmur (2/ 6 RUSB) Abdomen: normal bowel sounds, non tender, soft, no organomegaly Extremities: no pedal edema Neurologic/Psychiatric: alert, oriented x 3 Laboratory Results Last 24 Hours Test 05/08/18 16:12 05/08/18 20:00 05/09/18 05:38 05/09/18 07:21 Bedside Glucose 119 mg/dl 107 mg/dl 133 mg/dl Sodium Level 140 mmol/L Potassium Level 4.7 mmol/L Chloride Level 105 mmol/L Carbon Dioxide Level 31 mmol/L Anion Gap 4.0 mmol/L Blood Urea Nitrogen 37 mg/dl Creatinine 1.91 mg/dl Est Creatinine Clear Calc Drug Dose 29.5 ml/min Estimated GFR () 28.6 Estimated GFR (Non- 24.7 BUN/Creatinine Ratio 19.1 Random Glucose 125 mg/dl Calcium Level 8.4 mg/dl Magnesium Level 2.6 mg/dl Test 05/09/18 12:54 Bedside Glucose 227 mg/dl Assessment and Plan 77yo female - 1. severe exertional dyspnea - no evidence of ACS/acute CA given the negative serial troponins within the first 24 hrs of admission. From CHF standpoint she appears compensated and thus ongoing CHF unlikely the cause of her symptoms. Stress test was positive and she had numerous anginal-equivalent symptoms post- stress test today. Taken to confectionery laboratory manager by Dr. Bateman - see full report. No stents deployed; medical management recommended. Re-eval in am. 2. acute/chronic systolic/diastolic CHF - improved clinically and again appears euvolemic today. Continue BB Continue lasix 3. CKD stage 3 - baseline creatinine appears to be about 1.6. Mild acute kidney injury from diuresis. BMP am. 4. CAD with prior stent to LAD 11/02 - s/p cath today - see discussion above. Cont BB, plavix, imdur. Consider low-dose (5mg crestor) statin if she will consider. Lipids quite elevated. 5. hypothyroidism - TSH 01/2018 wnl; continue synthroid as is. 6. h/o a. flutter - has remained in NSR during this stay thus far. Continue amiodarone. Continue eliquis. 7. morbid obesity with BMI 39 8. T2DM - controlled with novolog correction/carb coverage. 9. DVT proph - eliquis. 10. FEN - resume diet post-cath, BMP in am. Continued [facility] stay due to: other (+stress test, cardiac cath, etc) Discharge planning: home
[2018-05-10] MEDS: LEVOTHYROXINE 75 MCG TAB PO SCH (05:18)
[2018-05-10 06:14] LABS: HEMATOCRIT 38.6 % (37-47); HEMOGLOBIN 12.9 g/dL (12.0-16.0); MEAN CELL VOLUME 99.2 fL (80-100); MEAN CORPUSCULAR HEMOGLOBIN 33.2 pg (25-34); MEAN CORPUSCULAR HGB CONC 33.4 g/dl (32-36); MEAN PLATELET VOLUME 10.8 fL (7.4-10.4); PLATELET COUNT 204 K/uL (130-400); RED CELL DISTRIBUTION WIDTH CV 12.9 % (11.5-14.5); RED CELL DISTRIBUTION WIDTH SD 46.5 fL (36.4-46.3)
[2018-05-10 06:41] LABS: CALCIUM 8.4 mg/dl (8.5-10.1); CREATININE 1.79 mg/dl (0.60-1.20)
[2018-05-10] MEDS: ISOSORBIDE MONONITRATE 30 MG TABCR PO SCH (08:04)
[2018-05-10] MEDS: MULTIVITAMIN TAB PO SCH (08:04)
[2018-05-10] MEDS: POTASSIUM CHLORIDE 20 MEQ TABCR PO SCH (08:05)
[2018-05-10] MEDS: AMLODIPINE BESYLATE 5 MG TAB PO SCH (08:05)
[2018-05-10] MEDS: APIXABAN 5 MG TAB PO SCH ×2 (08:06→21:36)
[2018-05-10] MEDS: FUROSEMIDE 40 MG TAB PO SCH (08:06)
[2018-05-10] MEDS: TOCOPHERYL, DL-ALPHA 400 INTER.UNIT CAP PO SCH (08:06)
[2018-05-10] MEDS: INSULIN ASPART 100 UNITS/ML 3 ML PEN SC SCH ×4 (08:12→21:00)
--- NOTE | 2018-05-10 09:34 | CARDIOLOGY PROGRESS NOTE ---
DATE: 05/10/2018 SUBJECTIVE: Mrs. Barry is resting comfortably at bedside chair without complaints of chest pain. Still notes dyspnea with minimal physical activity. Results of her cardiac catheterization reviewed in detail. OBJECTIVE: VITAL SIGNS: Blood pressure is 137/74, with a regular pulse of 63, respiratory rate is 20, the patient is afebrile at 36.5 degrees Celsius, saturation is 93% on room air. NECK: Supple, with full carotid upstrokes. A quiet transmitted murmur noted bilaterally. Jugular venous pressure is flat at 90 degrees. There is no thyromegaly. CARDIOVASCULAR: Exam reveals a regular rhythm, with normal S1 and S2. A 2/6 crescendo-decrescendo systolic murmur is heard loudest at the base. No S3. RESPIRATORY: Lungs are clear without rales, rhonchi, or wheezes. GASTROINTESTINAL: Abdomen is soft and nontender, without bruits. VASCULAR: Extremities reveal intact radial artery pulses bilaterally. There is no peripheral edema. LABORATORY DATA: CBC notes hemoglobin of 12.9, hematocrit 38.6, white count 5.9, platelet count 204,000. Electrolytes note sodium of 139, potassium 4.0, chloride 105, bicarbonate 28, BUN 36, creatinine 1.79, glucose 131. spring tacker is benign. IMPRESSION AND PLAN: 1. Exertional dyspnea. Fortunately, this is not related to coronary ischemia. It may be reasonable to consider more aggressive diuresis. 2. Coronary artery disease. Cardiac catheterization yesterday noted a widely patent left anterior descending stent. Moderate obstructive disease, unchanged from catheterization done in October. 3. Remote inferior wall myocardial infarction, 2000. 4. Ischemic cardiomyopathy, ejection fraction of 45%-50%. 5. Combined chronic congestive heart failure, as above, may consider more aggressive diuresis. 6. Paroxysmal atrial flutter, remains in sinus rhythm on amiodarone. 7. Mild aortic stenosis. 8. Mild to moderate mitral regurgitation. 9. Left bundle-branch block. 10. Diabetes mellitus. 11. Chronic renal failure. 12. Bilateral carotid endarterectomies. 13. Peripheral vascular disease. MTDD
[2018-05-10] MEDS ORDERED: FUROSEMIDE INJ 40 MG in SYRINGE 0 ML IV ONE (15:15)
[2018-05-10] MEDS: MAGNESIUM OXIDE 400 MG TAB PO SCH (21:36)
[2018-05-10] MEDS: LABETALOL HCL 100 MG TAB PO SCH (21:37)
[2018-05-10] MEDS: CLOPIDOGREL BISULFATE 75 MG TAB PO SCH (21:38)
[2018-05-10] MEDS: AMIODARONE 200 MG TAB PO SCH (21:38)
[2018-05-11 04:17] VITALS: BP 98/60; PULSE 65; TEMP 36.8; O2SAT 91
[2018-05-11] MEDS: LEVOTHYROXINE 75 MCG TAB PO SCH (06:28)
[2018-05-11 08:00] VITALS: BP 98/55; PULSE 69; TEMP 36.6; O2SAT 93
--- NOTE | 2018-05-11 08:03 | Progress Note ---
Subjective Date of Service: May 10, 2018. Subjective Pt evaluation today including: conversation w/ patient, physical exam, chart review, lab review, conversation w/ systems development consultant (cardiology - multiple discussions), review of inpatient medication list Pain: none PO Intake: normal Voiding: no voiding problems tele with sinus pauses and escape beats/escape rhythm this AM she had a run of pauses at about 0945 and patient was symptomatic from it she had palpitations and felt "off" still with marked GOMEZ albeit may be modestly better she is still 8 pounds above dry weight no chest pain also mentions she had a tick bite 5 weeks ago - it was engorged when she removed it; it was on for 24+ hours Problem List Medical Problems: (1) Atrial flutter with rapid ventricular response Status: Acute (2) Cardiac ischemia Status: Acute (3) Chest pain Status: Acute (4) Chest pain Status: Acute (5) Dyspnea on exertion Status: Acute (6) Failure of outpatient treatment Status: Acute (7) Hypoxia Status: Acute (8) Pleural effusion Status: Acute (9) Pneumonia Status: Acute (10) Pulmonary edema Status: Acute Review of Systems Constitutional: No fever Respiratory: No cough Cardiac: + orthopnea, No chest pain, No PND, No edema Abdomen: No pain Objective Vital Signs Date Time Temp Pulse Resp B/P (MAP) Pulse Ox O2 Delivery O2 Flow Rate FiO2 05/10/18 19:57 36.6 71 16 106/69 (81) 94 Room Air 05/10/18 16:00 94 Room Air 05/10/18 15:32 36.8 67 18 138/73 (94) 94 Room Air 05/10/18 12:11 93 Room Air 05/10/18 10:50 36.5 63 20 122/69 (86) 94 Room Air 05/10/18 08:19 93 Room Air 05/10/18 07:35 36.5 63 20 137/74 (95) 93 Room Air 05/10/18 04:18 36.7 66 18 137/73 (94) 92 Room Air 05/09/18 23:59 Room Air 05/09/18 23:28 36.5 68 18 109/58 (75) 92 Room Air 05/09/18 20:58 71 96/59 (71) 05/09/18 20:15 67 102/65 (77) Physical Exam General Appearance: no apparent distress, + obese ENT: pharynx normal Neck: no JVD Respiratory/Chest: lungs clear, no respiratory distress, no accessory muscle use Cardiovascular: regular rate, rhythm, no gallop, + systolic murmur (2/6 RUSB) Abdomen: normal bowel sounds, non tender, soft, no organomegaly Extremities: no pedal edema Neurologic/Psychiatric: alert, oriented x 3 Laboratory Results Last 24 Hours Test 05/09/18 20:16 05/10/18 05:42 05/10/18 07:33 05/10/18 10:48 Bedside Glucose 208 mg/dl 160 mg/dl 157 mg/dl White Blood Count 5.90 K/uL Red Blood Count 3.89 M/uL Hemoglobin 12.9 g/dL Hematocrit 38.6 % Mean Corpuscular Volume 99.2 fL Mean Corpuscular Hemoglobin 33.2 pg Mean Corpuscular Hemoglobin Concent 33.4 g/dl RDW Standard Deviation 46.5 fL RDW Coefficient of Variation 12.9 % Platelet Count 204 K/uL Mean Platelet Volume 10.8 fL Sodium Level 139 mmol/L Potassium Level 4.0 mmol/L Chloride Level 105 mmol/L Carbon Dioxide Level 28 mmol/L Anion Gap 7.0 mmol/L Blood Urea Nitrogen 36 mg/dl Creatinine 1.79 mg/dl Est Creatinine Clear Calc Drug Dose 31.4 ml/min Estimated GFR () 30.9 Estimated GFR (Non- 26.7 BUN/Creatinine Ratio 19.9 Random Glucose 131 mg/dl Calcium Level 8.4 mg/dl Test 05/10/18 15:42 05/10/18 16:31 Lyme Disease IgG Antibody NEG Lyme Disease IgM Antibody NEG Bedside Glucose 151 mg/dl Assessment and Plan 77yo female - 1. severe exertional dyspnea - no evidence of ACS/acute PR given the negative serial troponins within the first 24 hrs of admission. Stress test was positive and she had numerous anginal-equivalent symptoms post- stress test today. s/p cath by Dr. Bateman - No stents deployed; medical management recommended. Continues with significant exertional dyspnea - despite lack of lung findings to suggest edema and lack of JVD she reports she is 8 pounds above dry weight. Thus, her symptoms may be from ongoing CHF - see below. Could she have ILD from amiodarone?? Consider high res chest CT. 2. acute/chronic systolic/diastolic CHF - lasix 40mg IV x 1 this afternoon. Continue BB 3. CKD stage 3 - baseline creatinine appears to be about 1.6. Mild acute kidney injury from diuresis. Creatinine improved. Resume IV diuresis and continue until back to dry weight and symptoms are better. BMP am. 4. CAD with prior stent to LAD 11/02 - s/p cath - see discussion above. Cont BB, plavix, imdur. Consider low-dose (5mg crestor) statin if she will consider. Lipids quite elevated. 5. hypothyroidism - TSH 01/2018 wnl; continue synthroid as is. 6. h/o a. flutter - remains on amiodarone. Continue eliquis. Now having sinus pauses and escape beats/rhythm. EP to see. I discussed this issue with Dr. Benitez today. 7. morbid obesity with BMI 38.7 8. T2DM - controlled with novolog correction/carb coverage. 9. DVT proph - eliquis. 10. FEN - BMP/mag in am. Eating well. 11. tick bite - r/o lyme's - check lyme's titers. Continued [facility] stay due to: other (needs diuresis, sinus pauses/tele issues) Discharge planning: home
[2018-05-11] MEDS: INSULIN ASPART 100 UNITS/ML 3 ML PEN SC SCH ×4 (08:04→20:42)
[2018-05-11] MEDS: POTASSIUM CHLORIDE 20 MEQ TABCR PO SCH (08:06)
[2018-05-11] MEDS: MULTIVITAMIN TAB PO SCH (08:06)
[2018-05-11] MEDS: APIXABAN 5 MG TAB PO SCH (08:07)
[2018-05-11] MEDS: FUROSEMIDE 40 MG TAB PO SCH (08:07)
[2018-05-11] MEDS: AMLODIPINE BESYLATE 5 MG TAB PO SCH (08:07)
[2018-05-11] MEDS: ISOSORBIDE MONONITRATE 30 MG TABCR PO SCH (08:08)
[2018-05-11] MEDS: TOCOPHERYL, DL-ALPHA 400 INTER.UNIT CAP PO SCH (08:08)
[2018-05-11 10:13] LABS: CALCIUM 8.7 mg/dl (8.5-10.1); CREATININE 1.96 mg/dl (0.60-1.20); POTASSIUM 4.1 mmol/L (3.5-5.1)
--- NOTE | 2018-05-11 10:18 | DIAGNOSTIC IMAGING REPORT ---
(CHEST) THORAX WITHOUT CT DOSE: 485.76 mGy.cm HISTORY: Dyspnea severe GOMEZ; on chronic amiodarone; eval for ILD/pneumonitis TECHNIQUE: Multiaxial CT images of the chest were performed without contrast. A dose lowering technique was utilized adhering to the principles of ALARA. COMPARISON: 10/10/2017 FINDINGS: Small bilateral pleural effusions slightly increased in volume from the prior study on the right. It is stable on the left. Interstitial changes and peribronchial changes described previously are improved. Lungs at this time are considered generally clear. Minimal parenchymal prominence both lung bases although also improved from the prior study. Mild stable cardiomegaly. No significant mediastinal or hilar adenopathy. Moderate stable atherosclerotic change thoracic aorta. IMPRESSION: 1. Improved exam. 2. Improved bilateral parenchymal interstitial and peribronchial change of the lungs now essentially clear. 3. Small bilateral pleural effusions with the right effusion slightly increased in point from the prior study. The above report was generated using voice recognition software. It may contain grammatical, syntax or spelling errors. Electronically signed by: Kyle Villarreal M.D. 05/11/2018 10:16 AM Dictated Date/Time: 05/11/2018 10:02 AM
--- NOTE | 2018-05-11 11:31 | CARDIOLOGY PROGRESS NOTE ---
DATE: 05/11/2018 SUBJECTIVE: Ms. Barry is resting comfortably in the bedside chair without complaints of chest pain. Her dyspnea has dramatically improved since her diuretic dose was increased. We have reviewed the events of yesterday when she was presyncopal at the time of her profound bradycardia. OBJECTIVE: VITAL SIGNS: Blood pressure is 100/55 with a regular pulse of 70, respiratory rate is 18. The patient is afebrile at 36.6 degrees Celsius. Saturation is 93% on room air. NECK: Supple with full carotid upstrokes. A transmitted murmur is noted bilaterally. Jugular venous pressure is flat at 90 degrees. There is no thyromegaly. CARDIOVASCULAR: Reveals a regular rhythm with normal S1, S2. A 2/6 crescendo decrescendo systolic murmurs heard loudest at the base. S2 is audible at the apex. LUNGS: Clear without rales, rhonchi, or wheezes. ABDOMEN: Soft and nontender without bruits. EXTREMITIES: Reveal intact radial artery pulse bilaterally. Trace pretibial edema is noted. DATA: Electrolytes note a sodium of 136, potassium 4.1, chloride 102, bicarbonate 25, BUN 34, creatinine 1.96, and a glucose of 243. clinical services manager yesterday following my rounds noted an abrupt and profound junctional bradycardia. Reviewed in person with Dr. Alvarez. IMPRESSION AND PLAN: 1. Presumed sick sinus syndrome - case discussed with Dr. Alvarez. He will see her in consultation later today and decide whether permanent pacemaking is indicated. 2. Exertional dyspnea - dramatically improved since diuretic regimen increased. May leave on the elevated dose until seen in followup. 3. Coronary artery disease - cardiac catheterization revealed a patent stent and moderate obstructive disease, unchanged from 10/2017. 4. Remote inferior wall myocardia infraction - 2000. 5. Ischemic cardiomyopathy - ejection fraction of 45-50%. 6. Combined chronic congestive heart failure - improved on increased diuretics. 7. Paroxysmal atrial flutter - remains in sinus rhythm on amiodarone. 8. Mild aortic stenosis. 9. [id number] mitral regurgitation. 10. Left bundle branch block. 11. Diabetes mellitus.
[2018-05-11 11:59] VITALS: BP 98/61; PULSE 65; TEMP 36.7; O2SAT 94
[2018-05-11 15:32] VITALS: BP 92/58; PULSE 65; TEMP 36.5; O2SAT 93
--- NOTE | 2018-05-11 16:13 | Cardiology Consultation ---
Cardiology Consultation Date of Consultation: May 11, 2018. Requesting Physician: Dr. Benitez Reason for Consultation: Dramatic bradycardia Pt evaluation today including: conversation w/ patient, physical exam, lab review, review of studies, review of inpatient medication list, conversation w/ attending History of Present Illness This is a very pleasant 77-year-old woman who has a history of hyperlipidemia, moderate aortic stenosis, left ventricular dysfunction, coronary artery disease. Her coronary anatomy was evaluated in October 2017 when she had chest discomfort and she had an LAD stent. She did have disease in other vessels but nothing requiring intervention. She continued to have severe dyspnea on exertion (although no anginal chest discomfort which had occurred prior to the stent) and underwent a nuclear stress test on May 07, 2018. That suggested ischemia therefore catheterization was done on May 09, 2018, coronary anatomy however was stable and no intervention was indicated. Echocardiography on May 08, 2018 showed normal left ventricular size with mild left ventricular hypertrophy and a left ventricular ejection fraction 45-50%. The cause of her dyspnea on exertion was therefore not fully understood. She does have a history of atrial arrhythmias including presentation in atrial flutter with a rapid ventricular response on February 01, 2016 which required cardioversion. She was started on amiodarone at that time and anticoagulated with Xarelto, the Xarelto is been replaced with Eliquis and the amiodarone continues at 200 mg daily. This has controlled her atrial arrhythmia. She has however had a history of intermittent brief episodes of fatigue and near syncope but not syncope. Most of the time these are relatively brief but sometimes they can last minutes and she feels that she is "fading away". This had not been identified until this admission when it did correlate with a period of bradycardia. She does have long-standing left bundle branch block but is never had AV block identified. At the time of my evaluation she was feeling well, she was not having 1 of her spells although she did this morning. Chest discomfort but still has dyspnea on exertion with ambulation and stable. Past Medical/Surgical History (1) L1 vertebral fracture (2) Acute kidney failure (3) Diabetes (4) H/O acute myocardial infarction (5) Coronary artery disease (6) Status post coronary artery stent placement Family History FH: myocardial infarction MOTHER Social History Smoking Status: Never Smoker History of Alcohol Use: No Review of Systems Constitutional: No fever, No weight loss, No weakness Respiratory: No cough Cardiac: + see HPI, + problem reported (Pre-syncope), No chest pain, No PND, No edema Abdomen: No pain, No nausea, No vomiting, No diarrhea, No GI bleeding Female : No problem reported Neurologic: No paralysis, No weakness, No numbness/tingling, No balance problems Heme: No abnormal bleeding/bruising, No clotting problems Endo: No fatigue Skin: No problem reported All Other Systems: Reviewed and Negative Allergies Coded Allergies: Adhesives (Verified Allergy, Unknown, REDNESS AND IRRITATION FROM PAIN PATCH, TAPE, 01/24/18) Latex (Verified Allergy, Unknown, ALLERGIC TO LATEX TAPE/RASH/ITCHING, 09/02) PT QUESTIONS ALLERGY TO LATEX DUE TO ADHESIVES ALLERGY Morphine (Verified Allergy, Unknown, swelling nausea vomiting, 01/24/18) Olmesartan (Verified Allergy, Unknown, UNKNOWN, 01/24/18) Aspirin (Verified Adverse Reaction, Mild, GI SYMPTOMS, 01/24/18) HX BLEEDING ULCER-STOMACH IRRITATION WITH ASPIRIN Ezetimibe (Verified Adverse Reaction, Mild, MUSCLE ACHES, 01/24/18) PER PATIENT Lisinopril (Verified Adverse Reaction, Unknown, LIGHTHEADED AND DIZZY, 09/02) Pioglitazone (Verified Adverse Reaction, Unknown, DIARRHEA NAUSEA, 01/24/18 ) Statins (Verified Adverse Reaction, Unknown, myalgias and weakness, ) Medications Current Inpatient Medications Medications (Trade) Dose Ordered Sig/Sedrick Route Start Time Stop Time Status Last Admin Dose Admin Acetaminophen (Tylenol Tab) 650 mg Q4H PRN PO 05/07/18 16:30 06/06/18 16:29 05/09/18 21:08 650 MG Magnesium Hydroxide (Milk Of Magnesia Susp) 30 ml Q12H PRN PO 05/07/18 16:30 06/06/18 16:29 Ondansetron HCl (Zofran Inj) 4 mg Q6H PRN IV 05/07/18 16:30 06/06/18 16:29 Albuterol (Ventolin Hfa Inhaler) 2 puffs Q6H PRN INH 05/07/18 16:30 06/06/18 16:29 Amiodarone HCl (Cordarone Tab) 200 mg QPM PO 05/07/18 21:00 06/06/18 20:59 05/10/18 21:38 200 MG Amlodipine Besylate (Norvasc Tab) 5 mg QAM PO 05/08/18 09:00 06/07/18 08:59 05/11/18 08:07 5 MG Apixaban (Eliquis) 5 mg BID PO 05/07/18 21:00 06/06/18 20:59 05/11/18 08:07 5 MG Clopidogrel Bisulfate (plAVix TAB) 75 mg QPM PO 05/07/18 21:00 06/06/18 20:59 05/10/18 21:38 75 MG Collagenase (Santyl Oint) 1 appln DAILY PRN EXT 05/07/18 16:30 06/06/18 16:29 Furosemide (Lasix Tab) 40 mg QAM PO 05/08/18 09:00 06/07/18 08:59 05/11/18 08:07 40 MG Isosorbide Mononitrate (Imdur Ext Rel Tab) 30 mg QAM PO 05/08/18 09:00 06/07/18 08:59 05/11/18 08:08 30 MG Labetalol HCl (Normodyne Tab) 75 mg QPM PO 05/07/18 21:00 06/06/18 20:59 05/10/18 21:37 75 MG Levothyroxine Sodium (Synthroid Tab) 75 mcg DAILYBB PO 05/08/18 06:00 06/07/18 06:59 05/11/18 06:28 75 MCG Magnesium Oxide (Mag-Ox Tab) 400 mg QPM PO 05/07/18 21:00 06/06/18 20:59 05/10/18 21:36 400 MG Multivitamins (Multivitamin Tab) 1 tab QAM PO 05/08/18 09:00 06/07/18 08:59 05/11/18 08:06 1 TAB Potassium Chloride (Klor-Con Tab) 20 meq QAM PO 05/08/18 09:00 06/07/18 08:59 05/11/18 08:06 20 MEQ Ranitidine HCl (zANTac TAB) 150 mg DAILY PRN PO 05/07/18 16:30 06/06/18 16:29 Triamcinolone Acetonide (Kenalog 0.1% Cream) 1 appln UD PRN EXT 05/07/18 16:30 06/06/18 16:29 st-Ihfyo-Ehjutpvfav Acetate (Vitamin E Cap) 400 interunit QAM PO 05/08/18 09:00 06/07/18 08:59 05/11/18 08:08 400 INTERUNIT Insulin Aspart (novoLOG ASPART) SLIDING SCALE G... ACHS SC 05/07/18 21:00 06/06/18 20:59 05/11/18 12:11 5 UNITS Glucose (Glucose 40% Gel) 15-30 GRAMS 15 GRAMS... UD PRN PO 05/07/18 18:30 06/06/18 18:29 Glucose (Glucose Chew Tab) 4-8 Tablets 4 Tabl... UD PRN PO 05/07/18 18:30 06/06/18 18:29 Dextrose (Dextrose 50% 50ML Syringe) 25-50ML 25ML FOR ... UD PRN IV 05/07/18 18:30 06/06/18 18:29 Glucagon (Glucagon Inj) 1 mg UD PRN IM 05/07/18 18:30 06/06/18 18:29 Carbohydrates (Carbohydrates For Hypoglycemia) 15-30 GRAMS 15 grams if BSG 54-69... UD PRN PO 05/07/18 18:30 06/06/18 18:29 Physical Exam Vital Signs Past 12 Hours Date Time Temp Pulse Resp B/P (MAP) Pulse Ox O2 Delivery O2 Flow Rate FiO2 05/11/18 15:32 36.5 65 18 92/58 (69) 93 05/11/18 11:59 36.7 65 19 98/61 (73) 94 Room Air 05/11/18 08:00 Room Air 05/11/18 08:00 36.6 69 19 98/55 (69) 93 Room Air 05/11/18 04:17 36.8 65 18 98/60 (73) 91 Room Air Constitutional: General Apperance: heathly-appearing Level of Distress: NAD Psychiatric: Mental Status: active & alert Head: normocephalic Eyes: EOM: EOMI ENMT: normal ENT inspection, hearing grossly normal Neck: supple, no masses Lungs: Respiratory effort: no dyspnea, good air movement Auscultation: breath sounds normal, no wheezing Cardiovascular: Heart Auscultation: RRR, no murmurs, no rubs, no gallops Peripheral Pulses: Bruits: none appreciated Abdomen: Bowel Sounds: normal Inspection & Palpation: soft, no tenderness, guarding & rebound, no masses Musculoskeletal: normal strength (5/5 throughout) Extremities: no edema Neurologic: Cranial Nerves: grossly intact Sensation: grossly intact Data Laboratory Results: Last 24 Hours Test 05/10/18 15:42 05/10/18 16:31 05/10/18 20:44 05/11/18 07:18 Lyme Disease IgG Antibody NEG Lyme Disease IgM Antibody NEG Bedside Glucose 151 mg/dl 129 mg/dl 138 mg/dl Test 05/11/18 08:47 05/11/18 11:07 Sodium Level 136 mmol/L Potassium Level 4.1 mmol/L Chloride Level 102 mmol/L Carbon Dioxide Level 25 mmol/L Anion Gap 8.0 mmol/L Blood Urea Nitrogen 34 mg/dl Creatinine 1.96 mg/dl Est Creatinine Clear Calc Drug Dose 28.5 ml/min Estimated GFR () 27.7 Estimated GFR (Non- 23.9 BUN/Creatinine Ratio 17.4 Random Glucose 243 mg/dl Calcium Level 8.7 mg/dl Magnesium Level 2.4 mg/dl Bedside Glucose 139 mg/dl EKG: SR, LBBB Telemetry reviewed: SR with periods of junctional bradycardia Assessment & Plan 1. Presyncope: Her symptoms of presyncope correlate with periods of bradycardia which appears to be sinus arrest with a junctional escape rhythm and retrograde atrial activity. This is all consistent with sick sinus syndrome. 2. Junctional bradycardia: This seems to be an escape rhythm related to sudden sinus arrest, the sinus arrest may be due in part to amiodarone therapy but she had difficult to control atrial flutter which ultimately required cardioversion due to inability to control heart rate. That has not been a problem on amiodarone, but probably would be if amiodarone were discontinued. We are therefore planning on continuing amiodarone and therefore will need a pacemaker to control her rhythm. 3. Dyspnea on exertion: I do not think this is heart rate related, we would use a rate responsive pacemaker so it is conceivable that that would help but I would not expect so. 4. Ischemic heart disease: Coronary disease stable based on catheterization this admission. Her left ventricular ejection fraction is quite well preserved and she is not a candidate for an ICD. 5. Left bundle-branch block: She does have left bundle branch block, however without a low EF she is not a candidate for a biventricular device. She is interested in going home and having pacemaker placement as an outpatient. She would like to proceed. I will plan on pacemaker implantation Monday if possible, and we will hold her anticoagulant in the meantime. Thank you for allowing me to participate in her care.
[2018-05-11 19:32] VITALS: BP 110/71; PULSE 65; TEMP 36.6; O2SAT 95
[2018-05-11] MEDS: AMIODARONE 200 MG TAB PO SCH (20:39)
[2018-05-11] MEDS: CLOPIDOGREL BISULFATE 75 MG TAB PO SCH (20:40)
[2018-05-11] MEDS: MAGNESIUM OXIDE 400 MG TAB PO SCH (20:40)
--- NOTE | 2018-05-11 23:39 | Progress Note ---
Subjective Date of Service: May 11, 2018. Subjective Pt evaluation today including: conversation w/ patient, conversation w/ family (son at bedside), physical exam, chart review, lab review, review of studies ( CT chest), conversation w/ regional sales consultant (cardiology), review of inpatient medication list Pain: none PO Intake: normal Voiding: no voiding problems tele with transient bradycardia this am no symptoms with this she overall has less dyspnea walked the hallways - o2 sats stayed in the mid 90s no chest pain good energy Problem List Medical Problems: (1) Atrial flutter with rapid ventricular response Status: Acute (2) Cardiac ischemia Status: Acute (3) Chest pain Status: Acute (4) Chest pain Status: Acute (5) Dyspnea on exertion Status: Acute (6) Failure of outpatient treatment Status: Acute (7) Hypoxia Status: Acute (8) Pleural effusion Status: Acute (9) Pneumonia Status: Acute (10) Pulmonary edema Status: Acute Review of Systems Constitutional: No fever Respiratory: No cough, No sputum Cardiac: No chest pain, No orthopnea, No PND, No edema Abdomen: No pain Objective Vital Signs Date Time Temp Pulse Resp B/P (MAP) Pulse Ox O2 Delivery O2 Flow Rate FiO2 05/11/18 19:32 36.6 65 18 110/71 (84) 95 05/11/18 15:32 36.5 65 18 92/58 (69) 93 05/11/18 11:59 36.7 65 19 98/61 (73) 94 Room Air 05/11/18 08:00 Room Air 05/11/18 08:00 36.6 69 19 98/55 (69) 93 Room Air 05/11/18 04:17 36.8 65 18 98/60 (73) 91 Room Air 05/11/18 00:01 Room Air 05/10/18 23:55 36.8 70 18 108/58 (75) 94 Room Air Physical Exam General Appearance: no apparent distress, + obese ENT: pharynx normal Neck: no JVD Respiratory/Chest: lungs clear, no respiratory distress, no accessory muscle use Cardiovascular: regular rate, rhythm, no gallop, + systolic murmur (2/6 RUSB) Abdomen: normal bowel sounds, non tender, soft, no organomegaly Extremities: no pedal edema Neurologic/Psychiatric: alert, oriented x 3 Laboratory Results Last 24 Hours Test 05/11/18 07:18 05/11/18 08:47 05/11/18 11:07 05/11/18 16:00 Bedside Glucose 138 mg/dl 139 mg/dl 114 mg/dl Sodium Level 136 mmol/L Potassium Level 4.1 mmol/L Chloride Level 102 mmol/L Carbon Dioxide Level 25 mmol/L Anion Gap 8.0 mmol/L Blood Urea Nitrogen 34 mg/dl Creatinine 1.96 mg/dl Est Creatinine Clear Calc Drug Dose 28.5 ml/min Estimated GFR () 27.7 Estimated GFR (Non- 23.9 BUN/Creatinine Ratio 17.4 Random Glucose 243 mg/dl Calcium Level 8.7 mg/dl Magnesium Level 2.4 mg/dl Test 05/11/18 20:04 Bedside Glucose 158 mg/dl Assessment and Plan 77yo female - 1. severe exertional dyspnea - no evidence of ACS/acute ME this admission. Stress test was positive and she had numerous anginal-equivalent symptoms post- stress test. s/p cath by Dr. Bateman - No stents deployed; medical management recommended. See his report. CT chest w/o ILD from amiodarone. No pneumonia or other findings on CT. I am presuming that any residual dyspnea was likely due to #1. Her low-normal BP and rise in creatinine overnight would argue she is euvolemic or even dry. No further IV diuresis. 2. acute/chronic systolic/diastolic CHF - resolved. Continue BB and lasix. 3. CKD stage 3 - baseline creatinine appears to be about 1.6. Mild acute kidney injury from diuresis. No further IV lasix. BMP am. 4. CAD with prior stent to LAD 11/02 - s/p cath this admission - see discussion in #1 above. Cont BB, plavix, imdur. Consider low-dose (5mg crestor) statin if she will consider. Lipids quite elevated. 5. hypothyroidism - TSH 01/2018 wnl; continue synthroid as is. 6. h/o a. flutter - remains on amiodarone. Now having sinus pauses and escape beats/rhythm. She is symptomatic from these (she describes them as "spells"). Dr. Alvarez has seen and recommends pacemaker placement for sick sinus syndrome. HOLD labetalol. HOLD eliquis. 7. morbid obesity with BMI 38.7 8. T2DM - controlled with novolog correction/carb coverage. 9. DVT proph - holding eliquis in preparation for pacer placement on Monday. 10. FEN - eating fine, electrolytes wnl. BMP am. 11. tick bite - lyme's titers negative. 12. sick sinus syndrome - pacemaker placement on Monday. NPO after MN Monday evening. Hold eliquis. Hold beta estephania. Dr Alvarez and I were planning on d/c home today with pacemaker placement on Monday. However, in light of frequency of her spells (from the pauses, etc), her low- normal BP, and her creatinine rise I elected to hold off on d/c. son updated at bedside Continued [facility] stay due to: other (needs pacemaker on Monday) Discharge planning: home
[2018-05-12 00:07] VITALS: BP 112/67; PULSE 69; TEMP 36.6; O2SAT 95
[2018-05-12 03:02] VITALS: BP 111/54; PULSE 68; TEMP 36.9; O2SAT 92
[2018-05-12] MEDS: LEVOTHYROXINE 75 MCG TAB PO SCH (05:43)
[2018-05-12 06:49] LABS: CALCIUM 8.6 mg/dl (8.5-10.1); CREATININE 1.57 mg/dl (0.60-1.20); POTASSIUM 4.2 mmol/L (3.5-5.1)
[2018-05-12 08:00] VITALS: BP 111/77; PULSE 68; TEMP 36.6; O2SAT 92; O2SAT 93
[2018-05-12] MEDS: ISOSORBIDE MONONITRATE 30 MG TABCR PO SCH (08:14)
[2018-05-12] MEDS: FUROSEMIDE 40 MG TAB PO SCH (08:15)
[2018-05-12] MEDS: POTASSIUM CHLORIDE 20 MEQ TABCR PO SCH (08:15)
[2018-05-12] MEDS: AMLODIPINE BESYLATE 5 MG TAB PO SCH (08:15)
[2018-05-12] MEDS: MULTIVITAMIN TAB PO SCH (08:18)
[2018-05-12] MEDS: INSULIN ASPART 100 UNITS/ML 3 ML PEN SC SCH ×4 (08:18→20:47)
[2018-05-12] MEDS: TOCOPHERYL, DL-ALPHA 400 INTER.UNIT CAP PO SCH (08:19)
--- NOTE | 2018-05-12 09:39 | CARDIOLOGY PROGRESS NOTE ---
DATE: 05/12/2018 SUBJECTIVE: Mrs. Barry is resting comfortably in the bedside chair without complaints of chest pain, dyspnea, palpitations, or presyncope. The need for permanent pacemaker was again reviewed with the patient. OBJECTIVE: VITAL SIGNS: Blood pressure is 111/77 with a regular pulse of 68. Respiratory rate is 18. The patient is afebrile at 36.6 degrees Celsius. Saturations 92% on room air. NECK: Supple with full carotid upstrokes. A quiet transmitted murmur is noted bilaterally. No jugular venous distention. CARDIOVASCULAR: Reveals a regular rhythm with a 2/6 crescendo decrescendo systolic murmur heard loudest at the base. S2 is audible at the apex. LUNGS: Clear without rales, rhonchi, or wheeze. ABDOMEN: Obese without bruits. EXTREMITIES: Reveal intact radial artery pulses bilaterally. There is no peripheral edema. LABORATORY DATA: Electrolytes note a sodium of 140, potassium 4.2, chloride 106, bicarbonate 20, BUN 33, creatinine 1.57, glucose 126. bus monitor is benign. IMPRESSION AND PLAN: 1. Sick sinus syndrome - appreciate Dr. Alvarez's consultation. Will likely proceed with a permanent pacemaker on Monday. Melis currently on hold. 2. Acute on chronic combined congestive heart failure - the patient dramatically improved with increased diuretics. 3. Coronary artery disease - cardiac catheterization earlier in this hospitalization noted a patent LAD stent and moderate obstructive disease which was unchanged from a catheterization done in October 2017. 4. Remote inferior wall myocardial infarction - 2000. 5. Mild ischemic cardiomyopathy - ejection fraction of 45-50%. 6. Paroxysmal atrial flutter - remains in sinus rhythm on amiodarone. 7. Mild aortic stenosis. 8. Imel-le-dunqrmth mitral regurgitation. 9. Left bundle-branch block. 10. Diabetes mellitus.
[2018-05-12 12:08] VITALS: BP 113/71; PULSE 85; TEMP 36.6; O2SAT 92
--- NOTE | 2018-05-12 14:43 | Hospitalist Progress Note ---
Hospitalist Progress Note Date of Service May 12, 2018. Subjective Pt evaluation today including: conversation w/ patient Patient had an episode of feeling very lightheaded this morning while she was sitting in the chair and had asked RN to put her back in the bed. This correlated with her heart rate being in the 40s. Review of telemetry shows multiple episodes of bradycardia with the lowest at 32 where it appears to be sinus arrest with junctional bradycardia and retrograde atrial activity as per previous cardiology notations. She denies any chest pain. Denies shortness of breath. She says it took her about 45 minutes to recover from feeling fatigued after the episode this morning. She is tolerating p.o. without nausea or vomiting. She is moving her bowels and making urine. All Other Systems: Reviewed and Negative Objective Vital Signs Date Time Temp Pulse Resp B/P (MAP) Pulse Ox O2 Delivery O2 Flow Rate FiO2 05/12/18 12:08 36.6 85 18 113/71 (85) 92 Room Air 05/12/18 08:00 36.6 68 17 111/77 (88) 93 Room Air 05/12/18 08:00 92 Room Air 05/12/18 03:02 36.9 68 17 111/54 (73) 92 Room Air 05/12/18 00:07 36.6 69 18 112/67 (82) 95 Room Air 05/11/18 20:42 Room Air 05/11/18 19:32 36.6 65 18 110/71 (84) 95 05/11/18 15:32 36.5 65 18 92/58 (69) 93 Physical Exam General Appearance: WD/WN, no apparent distress, + obese Eyes: normal inspection, sclerae normal ENT: hearing grossly normal Neck: trachea midline Respiratory/Chest: normal breath sounds, no respiratory distress, no accessory muscle use, + decreased breath sounds (At the bases bilaterally) Cardiovascular: regular rate, rhythm, + systolic murmur (3/6 RUSB), + pertinent finding (Trace pitting edema the right leg) Abdomen: normal bowel sounds, non tender, soft Extremities: no calf tenderness Neurologic/Psychiatric: alert, normal mood/affect, oriented x 3 Skin: normal color, warm/dry, no rash Laboratory Results Last 24 Hours Test 05/11/18 16:00 05/11/18 20:04 05/12/18 05:40 05/12/18 07:42 Bedside Glucose 114 mg/dl 158 mg/dl 162 mg/dl Sodium Level 140 mmol/L Potassium Level 4.2 mmol/L Chloride Level 106 mmol/L Carbon Dioxide Level 28 mmol/L Anion Gap 7.0 mmol/L Blood Urea Nitrogen 33 mg/dl Creatinine 1.57 mg/dl Est Creatinine Clear Calc Drug Dose 35.6 ml/min Estimated GFR () 36.2 Estimated GFR (Non- 31.3 BUN/Creatinine Ratio 20.9 Random Glucose 126 mg/dl Calcium Level 8.6 mg/dl Test 05/12/18 11:17 Bedside Glucose 162 mg/dl Assessment and Plan This patient is a 77yo female here with- Severe exertional dyspnea/CAD-with no evidence of ACS/acute PA this admission. Nuclear stress test was positive and she had numerous anginal-equivalent symptoms post-stress test. s/p cath by Dr. Bateman -with moderate CAD with widely patent mid LAD stent but with second diagonal subtotally occluded and worse from 10/2017-no stents deployed; medical management recommended to include maximizing antianginal therapy and continued ASCVD risk factor modification, titrate antihypertensives and diuretics in the setting of elevated LVEDP. CT chest w/o ILD from amiodarone. No pneumonia or other findings on CT. Her low-normal BP and rise in creatinine with IV diuretics would argue she is euvolemic or even dry. No further IV diuresis and is now on p.o. Lasix. Sick sinus syndrome -with continued intermittent sinus arrest with junctional escape rhythm and retrograde atrial activity seen on telemetry, that correlates with her symptoms of lightheadedness and fatigue from which she takes her 45 minutes to recover. She had a tick bite about 5 weeks ago but Lyme titer here is negative. -Planning for permanent pacemaker placement on Monday. - NPO after MN Monday evening. -Continue to hold eliquis. -Continue to hold beta estephania. -Appreciate cardiology consultation -Continue amiodarone Acute/chronic combined systolic/diastolic CHF - resolved with IV diuresis. EF here is 45-50%, with grade 2 diastolic dysfunction Continue BB once pacer placed and continues on Lasix. -Is allergic to HERMELINDO inhibitors and ARB's CKD stage 3 - baseline creatinine appears to be about 1.6. Mild acute kidney injury from diuresis. Now resolved and creatinine back to baseline No further IV lasix. Follow BMP -Renally dose medications -Avoid nephrotoxins CAD with prior stent to LAD 11/02 - s/p cath this admission - see discussion above. -Cont BB once pacemaker placed, continue antianginal with amlodipine and Loza. -Continue Plavix as she is allergic to aspirin -Consider low-dose (5mg crestor) statin if she will consider. Lipids quite elevated. Hypothyroidism - TSH 01/2018 wnl; continue synthroid as is. H/o paroxysmal atrial flutter remains on amiodarone and has been presumably in a sinus rhythm since 2015 when she had a cardioversion. Now having sinus pauses and escape beats/rhythm. She is symptomatic from these (she describes them as "spells"). Dr. Alvarez has seen and recommends pacemaker placement for sick sinus syndrome. HOLD labetalol. HOLD eliquis for procedure on Monday. Morbid obesity with BMI 38.7-recommend weight loss T2DM - controlled with novolog correction/carb coverage. Hemoglobin A1c is 6.3 % and well-controlled DVT proph - holding eliquis in preparation for pacer placement on Monday. Disposition-remain on telemetry
[2018-05-12 19:18] VITALS: BP 94/60; PULSE 68; TEMP 36.6; O2SAT 94
[2018-05-12] MEDS: MAGNESIUM OXIDE 400 MG TAB PO SCH (20:50)
[2018-05-12] MEDS: AMIODARONE 200 MG TAB PO SCH (20:50)
[2018-05-12] MEDS ORDERED: HEPARIN IV LOW DOSE NO BOLUS STA (22:34)
[2018-05-12] MEDS ORDERED: HEPARIN 25,000 UNIT/500ML D5W 500 ML IV SCH (23:00)
[2018-05-12 23:33] LABS: BASO % 0.3 %; BASO ABS # 0.02 K/uL (0-0.2); EOS % 3.1 %; EOS ABS # 0.24 K/uL (0-0.5); HEMATOCRIT 38.3 % (37-47); HEMOGLOBIN 12.6 g/dL (12.0-16.0); IG# 0.01 K/uL (0.00-0.02); LYMPH % 27.9 %; LYMPH ABS # 2.18 K/uL (1.2-3.4); MEAN CELL VOLUME 99.5 fL (80-100); MEAN CORPUSCULAR HEMOGLOBIN 32.7 pg (25-34); MEAN PLATELET VOLUME 10.9 fL (7.4-10.4); MONO % 11.8 %; MONO ABS # 0.92 K/uL (0.11-0.59); NEUT % 56.8 %; NEUT ABS # 4.45 K/uL (1.4-6.5); PLATELET COUNT 208 K/uL (130-400); RED CELL DISTRIBUTION WIDTH CV 12.9 % (11.5-14.5); RED CELL DISTRIBUTION WIDTH SD 46.6 fL (36.4-46.3); WHITE BLOOD COUNT 7.82 K/uL (4.8-10.8)
[2018-05-13] VITALS (7 sets, daily range): BP systolic 93–110; BP diastolic 35–70; PULSE 20–70; TEMP 36.6–36.9; O2SAT 91–96
[2018-05-13] LABS: PTT PATIENT 25.7 SECONDS (21.0-31.0)
[2018-05-13 00:05] LABS: MEAN CORPUSCULAR HGB CONC 32.9 g/dl (32-36)
[2018-05-13] MEDS: LEVOTHYROXINE 75 MCG TAB PO SCH (06:08)
[2018-05-13 06:51] LABS: PTT PATIENT 35.6 SECONDS (21.0-31.0)
[2018-05-13 07:05] LABS: CALCIUM 8.6 mg/dl (8.5-10.1); CREATININE 1.66 mg/dl (0.60-1.20); POTASSIUM 4.1 mmol/L (3.5-5.1)
[2018-05-13 07:12] LABS: BASO % 0.5 %; BASO ABS # 0.03 K/uL (0-0.2); EOS % 3.7 %; EOS ABS # 0.24 K/uL (0-0.5); IG# 0.01 K/uL (0.00-0.02); LYMPH % 26.5 %; LYMPH ABS # 1.72 K/uL (1.2-3.4); MEAN CORPUSCULAR HEMOGLOBIN 32.5 pg (25-34); MEAN CORPUSCULAR HGB CONC 32.5 g/dl (32-36); MEAN PLATELET VOLUME 11.3 fL (7.4-10.4); MONO % 9.9 %; MONO ABS # 0.64 K/uL (0.11-0.59); NEUT % 59.2 %; NEUT ABS # 3.84 K/uL (1.4-6.5); PLATELET COUNT 236 K/uL (130-400); RED CELL DISTRIBUTION WIDTH CV 12.8 % (11.5-14.5); RED CELL DISTRIBUTION WIDTH SD 46.7 fL (36.4-46.3); WHITE BLOOD COUNT 6.48 K/uL (4.8-10.8)
[2018-05-13] MEDS: MULTIVITAMIN TAB PO SCH (07:47)
[2018-05-13] MEDS: ISOSORBIDE MONONITRATE 30 MG TABCR PO SCH (07:48)
[2018-05-13] MEDS: TOCOPHERYL, DL-ALPHA 400 INTER.UNIT CAP PO SCH (07:48)
[2018-05-13] MEDS: AMLODIPINE BESYLATE 5 MG TAB PO SCH (07:48)
[2018-05-13] MEDS: POTASSIUM CHLORIDE 20 MEQ TABCR PO SCH (07:48)
[2018-05-13] MEDS: FUROSEMIDE 40 MG TAB PO SCH (07:49)
[2018-05-13] MEDS: INSULIN ASPART 100 UNITS/ML 3 ML PEN SC SCH ×4 (07:53→20:38)
--- NOTE | 2018-05-13 09:54 | Hospitalist Progress Note ---
Hospitalist Progress Note Date of Service May 13, 2018. Subjective Pt evaluation today including: conversation w/ patient, conversation w/ art consultant (Cardiology) At the time I saw her, she is currently having an episode of her fuzziness feeling in the head, not lightheaded, but felt very fatigued-this corresponded with episodes of sinus arrest with junctional bradycardia on telemetry that were recurring. Denied chest pain. Otherwise doing well. All Other Systems: Reviewed and Negative Objective Vital Signs Date Time Temp Pulse Resp B/P (MAP) Pulse Ox O2 Delivery O2 Flow Rate FiO2 05/13/18 08:00 92 Room Air 05/13/18 04:01 36.8 59 16 110/64 (79) 92 Room Air 05/13/18 00:21 36.6 63 18 97/35 (55) 96 Room Air 05/12/18 19:55 Room Air 05/12/18 19:18 36.6 68 18 94/60 (71) 94 Room Air 05/12/18 12:08 36.6 85 18 113/71 (85) 92 Room Air Physical Exam General Appearance: WD/WN, no apparent distress Eyes: normal inspection, EOMI, sclerae normal ENT: hearing grossly normal Neck: trachea midline Respiratory/Chest: lungs clear, normal breath sounds, no respiratory distress, no accessory muscle use Cardiovascular: regular rate, rhythm, no edema, + systolic murmur Abdomen: normal bowel sounds, non tender, soft, no organomegaly Extremities: normal inspection, no pedal edema, no calf tenderness Neurologic/Psychiatric: alert, normal mood/affect, oriented x 3 Skin: normal color, warm/dry, no rash Laboratory Results Last 24 Hours Test 05/12/18 11:17 05/12/18 16:17 05/12/18 20:40 05/12/18 23:18 Bedside Glucose 162 mg/dl 138 mg/dl 134 mg/dl White Blood Count 7.82 K/uL Red Blood Count 3.85 M/uL Hemoglobin 12.6 g/dL Hematocrit 38.3 % Mean Corpuscular Volume 99.5 fL Mean Corpuscular Hemoglobin 32.7 pg Mean Corpuscular Hemoglobin Concent 32.9 g/dl Platelet Count 208 K/uL Mean Platelet Volume 10.9 fL Neutrophils (%) (Auto) 56.8 % Lymphocytes (%) (Auto) 27.9 % Monocytes (%) (Auto) 11.8 % Eosinophils (%) (Auto) 3.1 % Basophils (%) (Auto) 0.3 % Neutrophils # (Auto) 4.45 K/uL Lymphocytes # (Auto) 2.18 K/uL Monocytes # (Auto) 0.92 K/uL Eosinophils # (Auto) 0.24 K/uL Basophils # (Auto) 0.02 K/uL RDW Standard Deviation 46.6 fL RDW Coefficient of Variation 12.9 % Immature Granulocyte % (Auto) 0.1 % Immature Granulocyte # (Auto) 0.01 K/uL Prothrombin Time 10.7 SECONDS Prothromb Time International Ratio 1.0 Activated Partial Thromboplast Time 25.7 SECONDS Partial Thromboplastin Ratio 1.0 Test 05/13/18 06:01 05/13/18 07:23 White Blood Count 6.48 K/uL Red Blood Count 4.00 M/uL Hemoglobin 13.0 g/dL Hematocrit 40.0 % Mean Corpuscular Volume 100.0 fL Mean Corpuscular Hemoglobin 32.5 pg Mean Corpuscular Hemoglobin Concent 32.5 g/dl Platelet Count 236 K/uL Mean Platelet Volume 11.3 fL Neutrophils (%) (Auto) 59.2 % Lymphocytes (%) (Auto) 26.5 % Monocytes (%) (Auto) 9.9 % Eosinophils (%) (Auto) 3.7 % Basophils (%) (Auto) 0.5 % Neutrophils # (Auto) 3.84 K/uL Lymphocytes # (Auto) 1.72 K/uL Monocytes # (Auto) 0.64 K/uL Eosinophils # (Auto) 0.24 K/uL Basophils # (Auto) 0.03 K/uL RDW Standard Deviation 46.7 fL RDW Coefficient of Variation 12.8 % Immature Granulocyte % (Auto) 0.2 % Immature Granulocyte # (Auto) 0.01 K/uL Activated Partial Thromboplast Time 35.6 SECONDS Partial Thromboplastin Ratio 1.4 Sodium Level 141 mmol/L Potassium Level 4.1 mmol/L Chloride Level 104 mmol/L Carbon Dioxide Level 29 mmol/L Anion Gap 7.0 mmol/L Blood Urea Nitrogen 29 mg/dl Creatinine 1.66 mg/dl Est Creatinine Clear Calc Drug Dose 33.8 ml/min Estimated GFR () 33.9 Estimated GFR (Non- 29.2 BUN/Creatinine Ratio 17.6 Random Glucose 151 mg/dl Calcium Level 8.6 mg/dl Magnesium Level 2.5 mg/dl Bedside Glucose 149 mg/dl Assessment and Plan This patient is a 77yo female here with- Severe exertional dyspnea/CAD-with no evidence of ACS/acute ND this admission. Nuclear stress test was positive and she had numerous anginal-equivalent symptoms post-stress test. s/p cath by Dr. Bateman -with moderate CAD with widely patent mid LAD stent but with second diagonal subtotally occluded and worse from 10/2017-no stents deployed; medical management recommended to include maximizing antianginal therapy and continued ASCVD risk factor modification, titrate antihypertensives and diuretics in the setting of elevated LVEDP. CT chest w/o ILD from amiodarone. No pneumonia or other findings on CT. Her low-normal BP and rise in creatinine with IV diuretics would argue she is euvolemic or even dry. No further IV diuresis and is now on p.o. Lasix. Sick sinus syndrome -with continued intermittent sinus arrest with junctional escape rhythm and retrograde atrial activity seen on telemetry, that correlates with her symptoms of lightheadedness and fatigue from which she takes her 45 minutes to recover. She had a tick bite about 5 weeks ago but Lyme titer here is negative. -Planning for permanent pacemaker placement on Monday. - NPO after MN Monday evening. -Continue to hold eliquis. -Continue to hold beta estephania. -Hold Plavix -Appreciate cardiology consultation -Continue amiodarone Acute/chronic combined systolic/diastolic CHF - resolved with IV diuresis. EF here is 45-50%, with grade 2 diastolic dysfunction Continue BB once pacer placed and continues on Lasix. -Is allergic to HERMELINDO inhibitors and ARB's CKD stage 3 - baseline creatinine appears to be about 1.6. Mild acute kidney injury from diuresis. Now resolved and creatinine back to baseline at 1.66 No further IV lasix. Follow BMP -Renally dose medications -Avoid nephrotoxins CAD with prior stent to LAD 11/02 - s/p cath this admission - see discussion above. -Cont BB once pacemaker placed, continue antianginal with amlodipine and Imdur -Continue Plavix after procedure as she is allergic to aspirin -Consider low-dose (5mg crestor) statin if she will consider. Lipids quite elevated. Hypothyroidism - TSH 01/2018 wnl; continue synthroid as is. H/o paroxysmal atrial flutter remains on amiodarone and has been presumably in a sinus rhythm since 2016 when she had a cardioversion. Now having sinus pauses and escape beats/rhythm. She is symptomatic from these (she describes them as "spells"). Dr. Alvarez has seen and recommends pacemaker placement for sick sinus syndrome. HOLD labetalol. HOLD eliquis for procedure on Monday. Morbid obesity with BMI 38.7-recommend weight loss T2DM - controlled with novolog correction/carb coverage. Hemoglobin A1c is 6.3 % and well-controlled DVT proph - holding eliquis in preparation for pacer placement on Monday. Disposition-remain on telemetry
[2018-05-13] MEDS ORDERED: NURSING VERBAL MED ORDER ONE (10:00)
--- NOTE | 2018-05-13 10:48 | CARDIOLOGY PROGRESS NOTE ---
DATE: 05/13/2018 SUBJECTIVE: Mrs. Barry is resting comfortably in the bedside chair. She has had several episodes of her symptomatic junctional bradycardia. She had a 45-minute episode yesterday and a brief episode while being seen this morning. OBJECTIVE: VITAL SIGNS: Blood pressure is 110/64, with a regular pulse of 60, respiratory rate is 16, the patient is afebrile at 36.8 degrees Celsius, saturation is 92% on room air. NECK: Supple, with full carotid upstrokes. A transmitted murmur is noted bilaterally. Jugular venous pressure is flat at 90 degrees. There is no thyromegaly. CARDIOVASCULAR: Exam reveals a regular rhythm, with normal S1 and S2. A 2/6 crescendo-decrescendo systolic murmur is heard loudest at the base. S2 is audible at the apex. RESPIRATORY: Lungs are clear without rales, rhonchi, or wheezes. GASTROINTESTINAL: Abdomen is soft and nontender, without bruits. VASCULAR: Extremities reveal intact radial artery pulses bilaterally. There is no peripheral edema. LABORATORY DATA: CBC notes hemoglobin of 13.0, hematocrit 40.0, white count 6.4, platelet count 236,000. Electrolytes note a sodium of 141, potassium 4.1, chloride 104, bicarbonate 29, BUN 29, creatinine 1.66, glucose 151. teletypesetter monitor notes several episodes of her sinus bradycardia. No atrial fibrillation or flutter. IMPRESSION AND PLAN: 1. Sick sinus syndrome. Patient will have permanent pacemaker tomorrow. Plavix was held, and she was placed on heparin drip. Will discontinue heparin drip as she has demonstrated no atrial dysrhythmia. 2. Acute on chronic combined congestive heart failure. Patient now compensated. 3. Coronary artery disease. Cardiac catheterization last week noted patent left anterior descending stent and moderate obstructive disease, unchanged from the catheterization done in October 2017. 4. Remote inferior wall myocardial infarction, 2001. 5. Mild ischemic cardiomyopathy, ejection fraction of 45%-50%. 6. Paroxysmal atrial flutter, remains in sinus rhythm on amiodarone. Eliquis currently on hold. 7. Mild aortic stenosis. 8. Mild to moderate mitral regurgitation. 9. Left bundle-branch block. 10. Diabetes mellitus.
[2018-05-13] MEDS: MAGNESIUM OXIDE 400 MG TAB PO SCH (20:38)
[2018-05-13] MEDS: AMIODARONE 200 MG TAB PO SCH (20:38)
[2018-05-14 03:48] VITALS: BP 96/61; PULSE 68; TEMP 36.6; O2SAT 94
[2018-05-14] MEDS: LEVOTHYROXINE 75 MCG TAB PO SCH (05:44)
[2018-05-14 06:54] LABS: CALCIUM 8.7 mg/dl (8.5-10.1); CREATININE 1.76 mg/dl (0.60-1.20); POTASSIUM 4.3 mmol/L (3.5-5.1)
[2018-05-14 07:00] VITALS: BP 98/63; PULSE 65; TEMP 36.6; O2SAT 94
[2018-05-14] MEDS: INSULIN ASPART 100 UNITS/ML 3 ML PEN SC SCH ×4 (07:59→20:43)
[2018-05-14] MEDS: AMLODIPINE BESYLATE 5 MG TAB PO SCH (08:17)
[2018-05-14] MEDS: TOCOPHERYL, DL-ALPHA 400 INTER.UNIT CAP PO SCH (08:17)
[2018-05-14] MEDS: ISOSORBIDE MONONITRATE 30 MG TABCR PO SCH (08:17)
[2018-05-14] MEDS: POTASSIUM CHLORIDE 20 MEQ TABCR PO SCH (08:17)
[2018-05-14] MEDS: FUROSEMIDE 40 MG TAB PO SCH (08:18)
[2018-05-14] MEDS: MULTIVITAMIN TAB PO SCH (08:19)
[2018-05-14] MEDS ORDERED: LACTATED RINGER'S 1000ML 1,000 ML IV ONE (09:05)
--- NOTE | 2018-05-14 09:14 | Cardiology Follow-Up ---
Subjective Date of Service: May 14, 2018. Pt evaluation today including: conversation w/ patient, physical exam, lab review, review of studies, review of inpatient medication list History of Present Illness This is a very pleasant 77-year-old woman who has a history of hyperlipidemia, moderate aortic stenosis, left ventricular dysfunction, coronary artery disease. Her coronary anatomy was evaluated in October 2017 when she had chest discomfort and she had an LAD stent. She did have disease in other vessels but nothing requiring intervention. She continued to have severe dyspnea on exertion (although no anginal chest discomfort which had occurred prior to the stent) and underwent a nuclear stress test on May 07, 2018. That suggested ischemia therefore catheterization was done on May 09, 2018, coronary anatomy however was stable and no intervention was indicated. Echocardiography on May 08, 2018 showed normal left ventricular size with mild left ventricular hypertrophy and a left ventricular ejection fraction 45-50%. The cause of her dyspnea on exertion was therefore not fully understood. She does have a history of atrial arrhythmias including presentation in atrial flutter with a rapid ventricular response on February 01, 2016 which required cardioversion. She was started on amiodarone at that time and anticoagulated with Xarelto, the Xarelto is been replaced with Eliquis and the amiodarone continues at 200 mg daily. This has controlled her atrial arrhythmia. She has however had a history of intermittent brief episodes of fatigue and near syncope but not syncope. Most of the time these are relatively brief but sometimes they can last minutes and she feels that she is "fading away". This had not been identified until this admission when it did correlate with a period of bradycardia. She does have long-standing left bundle branch block but is never had AV block identified. At the time of my evaluation she was feeling well, she was not having 1 of her spells although she did this morning. Chest discomfort but still has dyspnea on exertion with ambulation and stable. Social History Smoking Status: Never Smoker History of Alcohol Use: No Review of Systems Respiratory: No cough Cardiac: + see HPI, + problem reported (Pre-syncope), No chest pain, No PND, No edema Medications Cardiovascular: Item Value Date Time Amlodipine 5 mg 05/08/18 0900 Besylate QAM/PO 05/14/18 0817 (Norvasc Tab) Furosemide 40 mg 05/08/18 0900 (Lasix Tab) QAM/PO 05/14/18 0818 Isosorbide 30 mg 05/08/18 0900 Mononitrate QAM/PO 05/14/18 0817 (Imdur Ext Rel Tab) Potassium Chloride 20 meq 05/08/18 0900 (Klor-Con Tab) QAM/PO 05/14/18 0817 Amiodarone HCl 200 mg 05/07/18 2100 (Cordarone Tab) QPM/PO 05/13/182037 Magnesium Oxide 400 mg 05/07/18 2100 (Mag-Ox Tab) QPM/PO 05/13/182037 Objective Vital Signs Past 12 Hours Date Time Temp Pulse Resp B/P (MAP) Pulse Ox O2 Delivery O2 Flow Rate FiO2 05/14/18 07:00 36.6 65 18 98/63 (75) 94 Room Air 05/14/18 03:48 36.6 68 18 96/61 (73) 94 Room Air 05/13/18 23:57 36.9 70 20 94/56 (69) 94 Room Air Last Recorded Weight-Kilograms: 105.700 Physical Exam Constitutional: General Apperance: heathly-appearing Level of Distress: NAD Lungs: Respiratory effort: no dyspnea, good air movement Auscultation: breath sounds normal, no wheezing Cardiovascular: Heart Auscultation: RRR, no murmurs, no rubs, no gallops Peripheral Pulses: Bruits: none appreciated Extremities: no edema Data Laboratory Results: Last 24 Hours Test 05/13/18 11:32 05/13/18 16:08 05/13/18 20:17 05/14/18 05:38 Bedside Glucose 176 mg/dl 101 mg/dl 114 mg/dl Sodium Level 139 mmol/L Potassium Level 4.3 mmol/L Chloride Level 105 mmol/L Carbon Dioxide Level 27 mmol/L Anion Gap 7.0 mmol/L Blood Urea Nitrogen 28 mg/dl Creatinine 1.76 mg/dl Est Creatinine Clear Calc Drug Dose 31.8 ml/min Estimated GFR () 31.6 Estimated GFR (Non- 27.2 BUN/Creatinine Ratio 15.7 Random Glucose 130 mg/dl Calcium Level 8.7 mg/dl Magnesium Level 2.5 mg/dl Test 05/14/18 07:16 Bedside Glucose 160 mg/dl Telemetry reviewed: Sinus rhythm with periods of junctional bradycardia Assessment and Plan 1. Presyncope: She has continued to have symptomatic bradycardia. Her symptoms of presyncope correlate with periods of bradycardia which appears to be sinus arrest with a junctional escape rhythm and retrograde atrial activity. This is all consistent with sick sinus syndrome. 2. Junctional bradycardia: This seems to be an escape rhythm related to sudden sinus arrest, the sinus arrest may be due in part to amiodarone therapy but she had difficult to control atrial flutter which ultimately required cardioversion due to inability to control heart rate. That has not been a problem on amiodarone, but probably would be if amiodarone were discontinued. We are therefore planning on continuing amiodarone and therefore will need a pacemaker to control her rhythm. 3. Dyspnea on exertion: I do not think this is heart rate related, we would use a rate responsive pacemaker so it is conceivable that that would help but I would not expect so. 4. Ischemic heart disease: Coronary disease stable based on catheterization this admission. Her left ventricular ejection fraction is quite well preserved and she is not a candidate for an ICD. 5. Left bundle-branch block: She does have left bundle branch block, however without a low EF she is not a candidate for a biventricular device. She is scheduled for pacemaker implantation this morning. I discussed the indications, procedure, risks and alternatives with her as well as the risks of sedation. She understands and agrees to proceed. Consent for pacemaker implantation and sedation obtained. Thank you for allowing me to participate in her care.
--- NOTE | 2018-05-14 09:16 | Pre Sedation Assessment ---
Pre Sedation Assessment General Date of Sedation: May 14, 2018. Vital Signs Past 12 Hours Date Time Temp Pulse Resp B/P (MAP) Pulse Ox O2 Delivery O2 Flow Rate FiO2 05/14/18 08:00 Room Air 05/14/18 07:00 36.6 65 18 98/63 (75) 94 Room Air 05/14/18 03:48 36.6 68 18 96/61 (73) 94 Room Air 05/13/18 23:57 36.9 70 20 94/56 (69) 94 Room Air Review Cardiovascular: regular rate, rhythm, no edema Lungs: chest non-tender, lungs clear Pre-Sedation Airway Assessment Smoking Status: Never Smoker Hx of Sleep Apnea: No Short Thick Neck: No Thyro-mental Distance: > 3 Finger Breadths Oral Cavity: Dentures Mallampati Classification: Class II ASA Classification: Class II NPO Status Date of Last Intake of Fluids: May 13, 2018 Time of Last Intake of Fluids: 1200 Date of Last Intake of Solids: May 13, 2018 Time of Last Intake of Solids: 1700 Procedure Planning Contraindications for Sedation: None Current Medications Reviewed: Yes Notes The planned sedation has been discussed with the patient. Informed Consent was obtained. I have identified the patient, determined the appropriateness of sedation and have assessed the patient immediately prior to the procedure. All medicine(s) and interventions are by my order.
[2018-05-14] MEDS ORDERED: CEFAZOLIN SOD 2000MG/15 ML IV PUSH IV SCH (09:30)
[2018-05-14] MEDS ORDERED: MIDAZOLAM HCL 5 MG/ML 1 ML VIAL ONE (09:48)
[2018-05-14] MEDS ORDERED: FENTANYL CITRATE INJ 50 MCG/1 ML 2 ML VIAL ONE (09:48)
[2018-05-14] MEDS ORDERED: CEFAZOLIN SOD 1 GM VIAL ONE (09:56)
--- NOTE | 2018-05-14 11:29 | [facility] Operative Report ---
Operative Report Operative Date May 14, 2018. Pre-Operative Diagnosis Symptomatic sinus bradycardia Post-Operative Diagnosis Same Procedure(s) Performed Dual-chamber pacemaker implantation Surgeon Dr. Alvarez Marker Assembler Surgeon(s) None Estimated Blood Loss 30 cc Findings Good lead position, good measurements Specimens None Anesthesia Local with sedation Complication(s) None Disposition PCU Description of Procedure After obtaining informed consent for the procedure, the patient was brought to the laboratory and prepped and draped in the standard sterile manner. The left prepectoral region was anesthetized with 1% lidocaine local anesthetic and left axillary venipuncture was performed by percutaneous technique and a guidewire placed through the left subclavian vein into the superior vena cava. The area was further infiltrated with 1% lidocaine local anesthetic and a 5 cm incision was made parallel to the left clavicle and 2 cm below it and carried down to the anterior pectoralis fascia. A pacemaker pocket was formed by blunt dissection anterior to the pectoralis fascia and a bacitracin-soaked sponge (50, 000 units in 50 cc normal saline solution) was placed in the pocket. A 9 [place] Med[employer]onic long lead introducer was placed over the guidewire into the left subclavian vein, the dilator and guidewire were removed and a bipolar active fixation steroid tipped ventricular lead was advanced through the introducer into the superior vena cava. A guidewire was placed through the introducer and the introducer was stripped from the lead and guidewire. An 8 [place] Med[employer]onic lead introducer was placed over the guidewire into the left subclavian vein, the dilator and guidewire were removed and a bipolar active fixation steroid tipped atrial lead was advanced through the introducer into the superior vena cava. A guidewire was placed back through the introducer and the introducer was stripped from the lead and guidewire. Using a curved stylette the ventricular lead was advanced through the right ventricular outflow tract into the pulmonary artery and then using a straight stylette was positioned in the right ventricular apex. The screw was extended fixing the lead in position. Pacing and sensing thresholds were evaluated in bipolar configuration and are recorded on the implant data sheet. Using a curved stylette the atrial lead was positioned in the region of the atrial appendage and the screw extended fixing the lead in position. Pacing and sensing thresholds were evaluated in bipolar configuration and are recorded on the implant data sheet. Once the leads were in position they were attached to the anterior pectoralis fascia using 2 sutures of 2-0 silk around each lead collar. The bacitracin- soaked sponge was removed from the pocket, hemostasis was obtained, the pacemaker was attached to the leads and placed in the pocket with the leads coiled beneath it. The incision was closed with a running double subcutaneous closure of 3-0 Vicryl absorbable suture, followed by running subcuticular skin closure of 4-0 Vicryl absorbable suture. Bacitracin ointment was placed on the incision and a pressure dressing applied. I attest to the content of the Intraoperative Record and any orders documented therein. Any exceptions are noted below.
--- NOTE | 2018-05-14 11:29 | Post Sedation Assessment ---
Post Sedation Assessment General Date of Sedation May 14, 2018. Vital Signs: Vital Signs Past 12 Hours Date Time Temp Pulse Resp B/P (MAP) Pulse Ox O2 Delivery O2 Flow Rate FiO2 05/14/18 11:12 66 16 103/66 (78) 98 Mask 10 05/14/18 08:00 Room Air 05/14/18 07:00 36.6 65 18 98/63 (75) 94 Room Air 05/14/18 03:48 36.6 68 18 96/61 (73) 94 Room Air 05/13/18 23:57 36.9 70 20 94/56 (69) 94 Room Air Post Procedure Recovery Score Activity: (2) Moves 4 extremities * Respiration: (2) Deep breath/cough Circulation: (2) +/-20% PreAnes Value Consciousness: (2) Fully Awake Oxygen Saturation: (2) > 92% On Room Air Post Anesthesia Score: 10 Discharge Sedation Level of Care: Fast Track Phase II Post Sedation Plan On clinical assessment, the patient appears to have tolerated the sedation without complications. Patient is recovering as anticipated. Patient will continue to be monitored by nursing and may be discharged when sedation discharge criteria are met per below protocol. Upon Completions of procedure and additional 15 minutes continue every 5 minute vital signs and the P.A.R. score; then discharge to a Phase I or Fast Track to Phase II per the following guidelines: * Discharge Patient to appropriate Phase II area if PAR is 8 or greater or return to pre- procedure baseline. The post - procedure orders will be as directed. * If PAR score is less than 8 or not return to pre-procedure baseline then patient will follow Phase I monitoring till PAR is reached for Phase II. The Phase I may be done in procedure room or may call to secure a Phase I area. * If naloxone or flumazenil are used for reversal, hold in Phase I for an additional 60 -120 minutes before discharge to Phase II. Please call the Sedation Physician to re-evaluate and complete post-note for discharge to Phase II area. Do NOT discharge from procedure sedation or Phase 1 until post- sedation evaluation note is complete by procedure /sedation MD Sedation Discharge Instructions to be given to the patient at discharge to home.
[2018-05-14] MEDS ORDERED: KETOROLAC TROMETHAMINE 10 MG TAB PO PRN (11:30)
[2018-05-14] MEDS ORDERED: ACETAMINOPHEN 325 MG TAB PO PRN (11:30)
[2018-05-14 12:00] VITALS: BP 108/62; PULSE 63; PULSE 65; TEMP 36.6; O2SAT 95
[2018-05-14 15:09] VITALS: BP 106/72; PULSE 70; TEMP 36.6; O2SAT 95
--- NOTE | 2018-05-14 18:24 | Hospitalist Progress Note ---
Hospitalist Progress Note Date of Service May 14, 2018. Subjective Pt evaluation today including: conversation w/ patient, conversation w/ otm consultant (Cardiology) Pt had PPM today, doing well. Tele with no bradycardia overnight. She has some soreness at the site of PPM. Also having redness and itching at right wrist cath site and other places on body where had adhesive tape. No SOB, no CP All Other Systems: Reviewed and Negative Objective Vital Signs Date Time Temp Pulse Resp B/P (MAP) Pulse Ox O2 Delivery O2 Flow Rate FiO2 05/14/18 15:09 36.6 70 20 106/72 (83) 95 Room Air 05/14/18 12:00 36.6 63 16 108/62 (77) 95 Room Air 65 05/14/18 11:27 63 16 108/62 (77) 95 Room Air 05/14/18 11:12 66 16 103/66 (78) 98 Mask 10 05/14/18 08:00 Room Air 05/14/18 07:00 36.6 65 18 98/63 (75) 94 Room Air 05/14/18 03:48 36.6 68 18 96/61 (73) 94 Room Air 05/13/18 23:57 36.9 70 20 94/56 (69) 94 Room Air 05/13/18 20:42 Room Air 05/13/18 19:31 36.8 68 20 97/59 (72) 91 Room Air Physical Exam General Appearance: WD/WN, no apparent distress Eyes: normal inspection, sclerae normal ENT: hearing grossly normal Neck: trachea midline Respiratory/Chest: lungs clear, normal breath sounds, no respiratory distress, no accessory muscle use Cardiovascular: regular rate, rhythm, no edema, + systolic murmur Abdomen: normal bowel sounds, non tender, soft Extremities: no pedal edema, no calf tenderness Neurologic/Psychiatric: alert, normal mood/affect, oriented x 3 Skin: normal color, warm/dry, no rash, + pertinent finding (left anterior chest wall with dressing in place and c/d/i; right ventral radial wrist with mild erythema and edema, no pulsating mass, some mild excoriation, erythema area about 3 cm in diameter; anterior chest wall with several areas of erythema in square patches where previous adhesive tape was) Laboratory Results Last 24 Hours Test 05/13/18 20:17 05/14/18 05:38 05/14/18 07:16 05/14/18 11:42 Bedside Glucose 114 mg/dl 160 mg/dl 152 mg/dl Sodium Level 139 mmol/L Potassium Level 4.3 mmol/L Chloride Level 105 mmol/L Carbon Dioxide Level 27 mmol/L Anion Gap 7.0 mmol/L Blood Urea Nitrogen 28 mg/dl Creatinine 1.76 mg/dl Est Creatinine Clear Calc Drug Dose 31.8 ml/min Estimated GFR () 31.6 Estimated GFR (Non- 27.2 BUN/Creatinine Ratio 15.7 Random Glucose 130 mg/dl Calcium Level 8.7 mg/dl Magnesium Level 2.5 mg/dl Test 05/14/18 16:23 Bedside Glucose 134 mg/dl Assessment and Plan This patient is a 77yo female here with- Severe exertional dyspnea/CAD-with no evidence of ACS/acute ME this admission. Nuclear stress test was positive and she had numerous anginal-equivalent symptoms post-stress test. s/p cath by Dr. Bateman -with moderate CAD with widely patent mid LAD stent but with second diagonal subtotally occluded and worse from 10/2017-no stents deployed; medical management recommended to include maximizing antianginal therapy and continued ASCVD risk factor modification, titrate antihypertensives and diuretics in the setting of elevated LVEDP. CT chest w/o ILD from amiodarone. No pneumonia or other findings on CT. No further IV diuresis and is now on p.o. Lasix. Remains euvolemic Sick sinus syndrome -with continued intermittent sinus arrest with junctional escape rhythm and retrograde atrial activity seen on telemetry, that correlates with her symptoms of lightheadedness and fatigue from which she takes her 45 minutes to recover. She had a tick bite about 5 weeks ago but Lyme titer here is negative. -had permanent pacemaker placement today -Continue to hold eliquis. -should restart beta estephania soon-but would recommend switching to Toprol XL given systolic CHF -restart Plavix -Appreciate cardiology consultation -Continue amiodarone to prevent Afib/flutter Acute/chronic combined systolic/diastolic CHF - resolved with IV diuresis. EF here is 45-50%, with grade 2 diastolic dysfunction Continue beta estephania possibly tomorrow now that pacer placed -continues on Lasix. -Is allergic to HERMELINDO inhibitors and ARB's Contact dermatitis-likely due to adhesives -benadryl and topical HC cream ordered CKD stage 3 - baseline creatinine appears to be about 1.6. Mild acute kidney injury from diuresis. Now resolved and creatinine back to around baseline at 1.76 No further IV lasix. Follow BMP -Renally dose medications -Avoid nephrotoxins CAD with prior stent to LAD 11/02 - s/p cath this admission - see discussion above. -restart beta estephania soon now that pacemaker placed, continue antianginal with amlodipine and Imdur -Continue Plavix as she is allergic to aspirin -Consider low-dose (5mg crestor) statin if she will consider. Lipids quite elevated. Hypothyroidism - TSH 01/2018 wnl; continue synthroid as is. H/o paroxysmal atrial flutter remains on amiodarone and has been presumably in a sinus rhythm since 2016 when she had a cardioversion. Was having frequent sinus pauses and escape beats/rhythm. She is symptomatic from these (she describes them as "spells"). Dr. Alvarez has seen and recommends pacemaker placement for sick sinus syndrome. -continue to hold Eliquis given recent pacer placement Morbid obesity with BMI 38.7-recommend weight loss T2DM - controlled with novolog correction/carb coverage. Hemoglobin A1c is 6.3 % and well-controlled DVT proph - holding eliquis , SCDs Disposition-remain on telemetry
[2018-05-14 18:49] VITALS: BP 93/57; PULSE 70; TEMP 36.7; O2SAT 95
[2018-05-14] MEDS: MAGNESIUM OXIDE 400 MG TAB PO SCH (20:36)
[2018-05-14] MEDS: AMIODARONE 200 MG TAB PO SCH (20:36)
[2018-05-14] MEDS ORDERED: NURSING VERBAL MED ORDER ONE (21:15)
[2018-05-14 23:50] VITALS: BP 111/68; PULSE 73; TEMP 36.8; O2SAT 93
[2018-05-15] MEDS: HYDROCORTISONE 1% CR 30 GM TUBE EXT SCH ×2 (00:32→08:48)
[2018-05-15 04:00] VITALS: BP 94/61; PULSE 73; TEMP 36.8; O2SAT 92
[2018-05-15] MEDS: LEVOTHYROXINE 75 MCG TAB PO SCH (05:40)
[2018-05-15 06:29] LABS: BASO % 0.2 %; BASO ABS # 0.02 K/uL (0-0.2); EOS % 4.2 %; EOS ABS # 0.34 K/uL (0-0.5); HEMATOCRIT 42.4 % (37-47); HEMOGLOBIN 13.9 g/dL (12.0-16.0); IG# 0.02 K/uL (0.00-0.02); LYMPH % 14.2 %; LYMPH ABS # 1.14 K/uL (1.2-3.4); MEAN CELL VOLUME 99.5 fL (80-100); MEAN CORPUSCULAR HEMOGLOBIN 32.6 pg (25-34); MEAN CORPUSCULAR HGB CONC 32.8 g/dl (32-36); MEAN PLATELET VOLUME 11.4 fL (7.4-10.4); MONO % 9.6 %; MONO ABS # 0.77 K/uL (0.11-0.59); NEUT % 71.6 %; NEUT ABS # 5.76 K/uL (1.4-6.5); PLATELET COUNT 210 K/uL (130-400); RED CELL DISTRIBUTION WIDTH CV 12.9 % (11.5-14.5); RED CELL DISTRIBUTION WIDTH SD 46.7 fL (36.4-46.3); WHITE BLOOD COUNT 8.05 K/uL (4.8-10.8)
--- NOTE | 2018-05-15 06:43 | DIAGNOSTIC IMAGING REPORT ---
CHEST 2 VIEWS ROUTINE CLINICAL HISTORY: EXACT TIME ORDERED Evaluate for pneumothorax and lead placement COMPARISON STUDY: 05/07/2018 FINDINGS: Bipolar cardiac pacemaker in good position. No evidence pneumothorax. Lungs are clear. IMPRESSION: Good pacemaker placement. No evidence of pneumothorax. The above report was generated using voice recognition software. It may contain grammatical, syntax or spelling errors. Electronically signed by: Kyle Villarreal M.D. 05/15/2018 6:41 AM Dictated Date/Time: 05/15/2018 6:38 AM
[2018-05-15 06:59] LABS: CALCIUM 8.4 mg/dl (8.5-10.1); CREATININE 1.76 mg/dl (0.60-1.20)
[2018-05-15 07:53] VITALS: BP 100/68; PULSE 73; TEMP 36.7; O2SAT 94
[2018-05-15] MEDS: AMLODIPINE BESYLATE 5 MG TAB PO SCH (08:49)
[2018-05-15] MEDS: POTASSIUM CHLORIDE 20 MEQ TABCR PO SCH (08:49)
[2018-05-15] MEDS: MULTIVITAMIN TAB PO SCH (08:49)
[2018-05-15] MEDS: TOCOPHERYL, DL-ALPHA 400 INTER.UNIT CAP PO SCH (08:49)
[2018-05-15] MEDS: FUROSEMIDE 40 MG TAB PO SCH (08:49)
[2018-05-15] MEDS: ISOSORBIDE MONONITRATE 30 MG TABCR PO SCH (08:49)
[2018-05-15] MEDS: INSULIN ASPART 100 UNITS/ML 3 ML PEN SC SCH ×2 (08:52→12:04)
[2018-05-15] MEDS ORDERED: CLOPIDOGREL BISULFATE 75 MG TAB PO SCH (09:00)
--- NOTE | 2018-05-15 09:18 | Cardiology Follow-Up ---
Subjective Date of Service: May 15, 2018. Pt evaluation today including: conversation w/ patient, physical exam, lab review, review of studies, review of inpatient medication list History of Present Illness This is a very pleasant 77-year-old woman who has a history of hyperlipidemia, moderate aortic stenosis, left ventricular dysfunction, coronary artery disease. Her coronary anatomy was evaluated in October 2017 when she had chest discomfort and she had an LAD stent. She did have disease in other vessels but nothing requiring intervention. She continued to have severe dyspnea on exertion (although no anginal chest discomfort which had occurred prior to the stent) and underwent a nuclear stress test on May 07, 2018. That suggested ischemia therefore catheterization was done on May 09, 2018, coronary anatomy however was stable and no intervention was indicated. Echocardiography on May 08, 2018 showed normal left ventricular size with mild left ventricular hypertrophy and a left ventricular ejection fraction 45-50%. The cause of her dyspnea on exertion was therefore not fully understood. She does have a history of atrial arrhythmias including presentation in atrial flutter with a rapid ventricular response on February 01, 2016 which required cardioversion. She was started on amiodarone at that time and anticoagulated with Xarelto, the Xarelto is been replaced with Eliquis and the amiodarone continues at 200 mg daily. This has controlled her atrial arrhythmia. She has however had a history of intermittent brief episodes of fatigue and near syncope but not syncope. Most of the time these are relatively brief but sometimes they can last minutes and she feels that she is "fading away". This had not been identified until this admission when it did correlate with a period of bradycardia. She does have long-standing left bundle branch block but is never had AV block identified. We therefore implanted a dual-chamber pacemaker yesterday. Today she feels well, she has no significant incisional discomfort although it is a little bit tender. She has had no further "fading away" episodes. Social History Smoking Status: Never Smoker History of Alcohol Use: No Review of Systems Respiratory: No cough Cardiac: + see HPI, No chest pain, No PND, No edema Medications Cardiovascular: Item Value Date Time Clopidogrel 75 mg 05/15/18 0900 Bisulfate QAM/PO 05/15/18 0850 (plAVix TAB) Amlodipine 5 mg 05/08/18 0900 Besylate QAM/PO 05/15/18 0849 (Norvasc Tab) Furosemide 40 mg 7/24/18 0900 (Lasix Tab) QAM/PO 05/15/18 0849 Isosorbide 30 mg 05/08/18 0900 Mononitrate QAM/PO 05/15/18 0849 (Imdur Ext Rel Tab) Potassium Chloride 20 meq 05/08/18 0900 (Klor-Con Tab) QAM/PO 05/15/18 0849 Amiodarone HCl 200 mg 05/07/18 2100 (Cordarone Tab) QPM/PO 05/14/182035 Objective Vital Signs Past 12 Hours Date Time Temp Pulse Resp B/P (MAP) Pulse Ox O2 Delivery O2 Flow Rate FiO2 05/15/18 07:53 36.7 73 16 100/68 (79) 94 Room Air 05/15/18 04:00 36.8 73 20 94/61 (72) 92 Room Air 05/14/18 23:50 36.8 73 18 111/68 (82) 93 Room Air Last Recorded Weight-Kilograms: 105.100 Physical Exam Constitutional: General Apperance: heathly-appearing Level of Distress: NAD Lungs: Respiratory effort: no dyspnea, good air movement Auscultation: breath sounds normal, no wheezing Cardiovascular: Heart Auscultation: RRR, no murmurs, no rubs, no gallops Peripheral Pulses: Bruits: none appreciated Extremities: no edema The incision is clean and dry, no significant bleeding Data Laboratory Results: Last 24 Hours Test 05/14/18 11:42 05/14/18 16:23 05/14/18 20:12 05/15/18 05:37 Bedside Glucose 152 mg/dl 134 mg/dl 121 mg/dl White Blood Count 8.05 K/uL Red Blood Count 4.26 M/uL Hemoglobin 13.9 g/dL Hematocrit 42.4 % Mean Corpuscular Volume 99.5 fL Mean Corpuscular Hemoglobin 32.6 pg Mean Corpuscular Hemoglobin Concent 32.8 g/dl Platelet Count 210 K/uL Mean Platelet Volume 11.4 fL Neutrophils (%) (Auto) 71.6 % Lymphocytes (%) (Auto) 14.2 % Monocytes (%) (Auto) 9.6 % Eosinophils (%) (Auto) 4.2 % Basophils (%) (Auto) 0.2 % Neutrophils # (Auto) 5.76 K/uL Lymphocytes # (Auto) 1.14 K/uL Monocytes # (Auto) 0.77 K/uL Eosinophils # (Auto) 0.34 K/uL Basophils # (Auto) 0.02 K/uL RDW Standard Deviation 46.7 fL RDW Coefficient of Variation 12.9 % Immature Granulocyte % (Auto) 0.2 % Immature Granulocyte # (Auto) 0.02 K/uL Sodium Level 138 mmol/L Potassium Level 4.0 mmol/L Chloride Level 104 mmol/L Carbon Dioxide Level 25 mmol/L Anion Gap 9.0 mmol/L Blood Urea Nitrogen 28 mg/dl Creatinine 1.76 mg/dl Est Creatinine Clear Calc Drug Dose 31.7 ml/min Estimated GFR () 31.6 Estimated GFR (Non- 27.2 BUN/Creatinine Ratio 15.6 Random Glucose 125 mg/dl Calcium Level 8.4 mg/dl Magnesium Level 2.3 mg/dl Test 05/15/18 07:19 Bedside Glucose 145 mg/dl Imaging: Chest x-ray shows good lead position, no pneumothorax EKG: Sinus rhythm with intermittent atrial pacing, left bundle branch block Telemetry reviewed: Normal dual-chamber pacemaker function Pacemaker: Excellent pacing and sensing characteristics. Assessment and Plan 1. Presyncope: This appears to be due to junctional bradycardia, following pacemaker implantation yesterday she has had no further episodes. 2. Junctional bradycardia: This seems to be an escape rhythm related to sudden sinus arrest, the sinus arrest may be due in part to amiodarone therapy but she had difficult to control atrial flutter which ultimately required cardioversion due to inability to control heart rate. That has not been a problem on amiodarone, but probably would be if amiodarone were discontinued. The pacemaker should control this rhythm. 3. Dyspnea on exertion: I do not think this is heart rate related, we would use a rate responsive pacemaker so it is conceivable that that would help but I would not expect so. 4. Ischemic heart disease: Coronary disease stable based on catheterization this admission. Her left ventricular ejection fraction is quite well preserved and she was not a candidate for an ICD. 5. Left bundle-branch block: She does have left bundle branch block, however without a low EF she is not a candidate for a biventricular device. She will pace the ventricle if needed, so far she has not. 6. Pacemaker: Her pacemaker is working very well, she has no significant discomfort and the site looks good. Her x-ray shows good lead position and no pneumothorax. She is stable for discharge. I will arrange follow-up in 2 days in our office. She has not had any further atrial fibrillation, we do need to restart Eliquis but I would recommend not starting it today, but starting her usual dose tomorrow morning. Thank you for allowing me to participate in her care.
--- NOTE | 2018-05-15 09:22 | Discharge Instructions ---
Discharge Instructions Date of Service May 15, 2018. Admission Reason for Admission: Junctional bradycardia Discharge Discharge Diagnosis / Problem: Pacemaker implantation Discharge Goals Goal(s): Improve disease control Activity Recommendations Activity Limitations: per Instructions/Follow-up section . Instructions / Follow-Up Instructions / Follow-Up ACTIVITY RECOMMENDATIONS: * Do not raise affected arm over head for 2 weeks. SPECIAL CARE INSTRUCTIONS: * If bleeding occurs, apply direct pressure to area for 5 minutes. * Call your doctor if you have severe pain, fever, drainage or bleeding at site. * Keep dressing on and dry for 48 hours then remove. * Keep any scheduled doctor's appointment. * Implant Card - hand held device with website information given. SKIN IRRITATION: * You may experience some redness and/or swelling in the area where radiation was administered. If any skin irritation occurs, please contact your family physician. FOLLOW UP VISIT: Dr. Alvarez Monday05/17/2018 1:45 PM. Current Hospital Diet Patient's current hospital diet: Diabetes Type 2 Diet Discharge Diet Recommended Diet: N/A Pending Studies Studies pending at discharge: no Laboratory Results Hemoglobin A1c Test 05/08/18 04:33 Range/Units Estimated Average Glucose 134 mg/dl Hemoglobin A1c 6.3 H 4.5-5.6 % Lipid Panel Test 05/08/18 04:33 Range/Units Triglycerides Level 166 H 0-150 mg/dl Cholesterol Level 254 H 0-200 mg/dl HDL Cholesterol 50 mg/dl Cholesterol/HDL Ratio 5.1 LDL Cholesterol, Calculated 171 mg/dl Medical Emergencies . Who to Call and When: Medical Emergencies: If at any time you feel your situation is an emergency, please call 911 immediately. . Non-Emergent Contact Non-Emergency issues call your: Primary Care Provider . . "Provider Documentation" section prepared by Davion Alvarez. .
[2018-05-15 11:51] VITALS: BP 96/68; PULSE 77; TEMP 36.7; O2SAT 95
[2018-05-15] MEDS ORDERED: HYDR1OIN EXT (12:20)
[2018-05-15] MEDS ORDERED: APIX1TAB3 PO (12:20)
--- NOTE | 2018-05-15 12:26 | Discharge Summary ---
Discharge Summary Date of Service May 15, 2018. Discharge Summary Admission Date: May 07, 2018 at 16:36 Discharge Date: May 15, 2018 Discharge Disposition: Home Principal Diagnosis: Dyspnea, severe CAD, acute/chronic combined systolic/ diastolic CHF,SSS Problems/Secondary Diagnoses: This patient is a 77yo female here with- Severe exertional dyspnea/CAD-with no evidence of ACS/acute SC this admission. Nuclear stress test was positive and she had numerous anginal-equivalent symptoms post-stress test. s/p cath by Dr. Bateman -with moderate CAD with widely patent mid LAD stent but with second diagonal subtotally occluded and worse from 10/2017-no stents deployed; medical management recommended to include maximizing antianginal therapy and continued ASCVD risk factor modification, titrate antihypertensives and diuretics in the setting of elevated LVEDP. CT chest w/o ILD from amiodarone. No pneumonia or other findings on CT. No further IV diuresis and is now on p.o. Lasix. Remains euvolemic Sick sinus syndrome -with continued intermittent sinus arrest with junctional escape rhythm and retrograde atrial activity seen on telemetry, that correlates with her symptoms of lightheadedness and fatigue from which she takes her 45 minutes to recover. She had a tick bite about 5 weeks ago but Lyme titer here is negative. -had permanent pacemaker placement today -Continue to hold eliquis. -should restart beta estephania soon-but would recommend switching to Toprol XL given systolic CHF -restart Plavix -Appreciate cardiology consultation -Continue amiodarone to prevent Afib/flutter Acute/chronic combined systolic/diastolic CHF - resolved with IV diuresis. EF here is 45-50%, with grade 2 diastolic dysfunction Continue beta estephania possibly tomorrow now that pacer placed -continues on Lasix. -Is allergic to HERMELINDO inhibitors and ARB's Contact dermatitis-likely due to adhesives -benadryl and topical HC cream ordered CKD stage 3 - baseline creatinine appears to be about 1.6. Mild acute kidney injury from diuresis. Now resolved and creatinine back to around baseline at 1.76 No further IV lasix. Follow BMP -Renally dose medications -Avoid nephrotoxins CAD with prior stent to LAD 11/02 - s/p cath this admission - see discussion above. -restart beta estephania soon now that pacemaker placed, continue antianginal with amlodipine and Imdur -Continue Plavix as she is allergic to aspirin -Consider low-dose (5mg crestor) statin if she will consider. Lipids quite elevated. Hypothyroidism - TSH 01/2018 wnl; continue synthroid as is. H/o paroxysmal atrial flutter remains on amiodarone and has been presumably in a sinus rhythm since 2015 when she had a cardioversion. Was having frequent sinus pauses and escape beats/rhythm. She is symptomatic from these (she describes them as "spells"). Dr. Alvarez has seen and recommends pacemaker placement for sick sinus syndrome. -continue to hold Eliquis given recent pacer placement Morbid obesity with BMI 38.7-recommend weight loss T2DM - controlled with novolog correction/carb coverage. Hemoglobin A1c is 6.3 % and well-controlled Contact dermatitis-secondary to adhesives DVT proph - holding eliquis , SCDs Disposition-remain on telemetry Immunizations: Have You Had Influenza Vaccine: Unknown History of Tetanus Vaccine?: Unknown History of Pneumococcal: Unknown History of Hepatitis B Vaccine: Unknown Procedures: Nuclear medicine cardiac stress test Cardiac catheterization Echocardiogram Permanent pacemaker placement CT chest Chest x-rays Venous Doppler lower extremities Consultations: Cardiology Medication Reconciliation New Medications: Hydrocortisone (Topical) (Hydrocortisone) 1 % Oin 1 APPLN EXT BID for 7 Days, #1 TUBE please give tube from hospital, apply to affected itchy areas of skin Changed Medications: Apixaban (Eliquis) 5 Mg Tab 5 MG PO BID for 30 Days (Medication details modified) DO NOT RESTART UNTIL THE MORNING OF 05/16/18 Continued Medications: Albuterol Hfa (Ventolin Hfa) 200 Puffs/48654 Mcg Aers 2-4 PUFFS INH Q6H PRN for Shortness of Breath, INHALER Amiodarone Hcl (Cordarone) 200 Mg Tab 200 MG PO QPM Amlodipine (Norvasc) 5 Mg Tab 5 MG PO QAM Aspirin (Aspirin Ec) 81 Mg Tab 81 MG PO QPM Clopidogrel (Plavix) 75 Mg Tab 75 MG PO QPM Collagenase (Santyl) 250 Unit/Gm Oin 1 APPLN TP UD PRN for LEG ULCER Furosemide (Lasix) 40 Mg Tab 40 MG PO QAM, TAB Garlic (Garlic) Unknown Strength Tab 1 TAB PO DAILY Insulin Aspart (Novolog) 100 Units/Ml Inj 1 DOSE SC DIRECTED BID PER SLIDING SCALE Labetalol Hcl (Labetalol Hcl) 100 Mg Tab 75 MG PO QPM Levothyroxine Sodium (Levothyroxine Sodium) 75 Mcg Tab 1 TAB PO QAM, TAB Magnesium Oxide (Mag-Ox) 400 Mg Tab 400 MG PO QPM Multivitamin (Multivitamin) Tab 1 TAB PO QAM, TAB Potassium Ext Rel (Klor-Con) 20 Meq Tabcr 20 MEQ PO QAM, TAB Ranitidine (Zantac) 150 Mg Tab 150 MG PO DAILY PRN for Indigestion, TAB Triamcinolone Acet (Aristocort 0.1%) 90 Appln/30 Gm Cr 1 APPLN TP UD PRN for RASH Vitamin E (Vitamin E) 400 Unit Tab 400 UNITS PO QAM Discontinued Medications: Isosorbide Mononitrate Ext Rel (Imdur Ext Rel) 30 Mg Ertab 30 MG PO QAM Discharge Exam Patient feeling very well. No further episodes of lightheadedness or foggy feeling in her head. Telemetry with normal sinus rhythm and first-degree AV block, bundle branch block, and occasional atrial pacing. Pacemaker is functioning normally as per cardiology. Denies shortness of breath. She is ambulating without difficulty. She has some minimal pain at the site of the pacemaker placement. She still has some residual itching at the site of her cardiac catheterization in the right wrist and on her chest where adhesive tape had been placed previously. She is ready for discharge to home. Physical Exam General Appearance: WD/WN, no apparent distress Eyes: normal inspection, sclerae normal ENT: hearing grossly normal Neck: trachea midline Respiratory/Chest: lungs clear, normal breath sounds, no respiratory distress, no accessory muscle use Cardiovascular: regular rate, rhythm, no edema, + systolic murmur Abdomen: normal bowel sounds, non tender, soft Extremities: no pedal edema, no calf tenderness Neurologic/Psychiatric: alert, normal mood/affect, oriented x 3 Skin: normal color, warm/dry, no rash, + pertinent finding (left anterior chest wall with dressing in place and c/d/i; right ventral radial wrist with mild erythema and edema, no pulsating mass, some mild excoriation, erythema area about 2 cm in diameter and decreased from previous; anterior chest wall with several areas of erythema in square patches where previous adhesive tape was) Review of Systems: Constitutional: No fever, No chills Eyes: No problem reported ENT: No problem reported Respiratory: No shortness of breath Cardiovascular: No chest pain Abdomen: No pain Musculoskeletal: No problem reported Genitourinary - Female: No problem reported Neurologic: No problem reported Psychiatric: No problem reported Endocrine: No problem reported Hematologic / Lymphatic: No problem reported Integumentary: No problem reported Hospital Course This patient is a 77yo female here with- Severe exertional dyspnea/CAD-with no evidence of ACS/acute SC this admission. Nuclear stress test was positive and she had numerous anginal-equivalent symptoms post-stress test. s/p cath by Dr. Bateman -with moderate CAD with widely patent mid LAD stent but with second diagonal subtotally occluded and worse from 10/2017-no stents deployed; medical management recommended to include maximizing antianginal therapy and continued ASCVD risk factor modification, titrate antihypertensives and diuretics in the setting of elevated LVEDP. CT chest w/o ILD from amiodarone. No pneumonia or other findings on CT. No further IV diuresis and is now on p.o. Lasix. Remains euvolemic Sick sinus syndrome -with continued intermittent sinus arrest with junctional escape rhythm and retrograde atrial activity seen on telemetry, that correlates with her symptoms of lightheadedness and fatigue from which she takes her 45 minutes to recover. She had a tick bite about 5 weeks ago but Lyme titer here is negative. -had permanent pacemaker placement today -Continue to hold eliquis. -should restart beta estephania soon-but would recommend switching to Toprol XL given systolic CHF -restart Plavix -Appreciate cardiology consultation -Continue amiodarone to prevent Afib/flutter Acute/chronic combined systolic/diastolic CHF - resolved with IV diuresis. EF here is 45-50%, with grade 2 diastolic dysfunction Continue beta estephania possibly tomorrow now that pacer placed -continues on Lasix. -Is allergic to HERMELINDO inhibitors and ARB's Contact dermatitis-likely due to adhesives -benadryl and topical HC cream ordered CKD stage 3 - baseline creatinine appears to be about 1.6. Mild acute kidney injury from diuresis. Now resolved and creatinine back to around baseline at 1.76 No further IV lasix. Follow BMP -Renally dose medications -Avoid nephrotoxins CAD with prior stent to LAD 11/02 - s/p cath this admission - see discussion above. -restart beta estephania soon now that pacemaker placed, continue antianginal with amlodipine and Imdur -Continue Plavix as she is allergic to aspirin -Consider low-dose (5mg crestor) statin if she will consider. Lipids quite elevated. Hypothyroidism - TSH 01/2018 wnl; continue synthroid as is. H/o paroxysmal atrial flutter remains on amiodarone and has been presumably in a sinus rhythm since 2016 when she had a cardioversion. Was having frequent sinus pauses and escape beats/rhythm. She is symptomatic from these (she describes them as "spells"). Dr. Alvarez has seen and recommends pacemaker placement for sick sinus syndrome. -continue to hold Eliquis given recent pacer placement Morbid obesity with BMI 38.7-recommend weight loss T2DM - controlled with novolog correction/carb coverage. Hemoglobin A1c is 6.3 % and well-controlled DVT proph - holding eliquis , SCDs Disposition-remain on telemetry Total Time Spent: Greater than 30 minutes This includes examination of the patient, discharge planning, medication reconciliation, and communication with other providers. Discharge Instructions Please refer to the electronic Patient Visit Report (Discharge Instructions) for additional information. Follow-Up With cardiology in 2 days With PCP within 1-2 weeks Additional Copies To Davion Alvarez M.D.; Boby Reddy M.D.; Lei Irizarry M.D.
[2018-05-15 12:50] VITALS: BP 96/68; PULSE 77; TEMP 36.7; O2SAT 95
== END 2018-05-15 13:15 | disposition home or self-care (01) | DRG 242 ==
LOC: C.EDB 12:05 → C.2T 16:36 → ENRESERV 16:45
PROVIDERS: ADMIT Family Medicine; ATTEND Family Medicine
PROC: 4A023N7 Measurement of Cardiac Sampling and Pressure, Left Heart, Percutaneous Approach (ICD-10-PCS; 2018-05-09)
PROC: B211YZZ Fluoroscopy of Multiple Coronary Arteries using Other Contrast (ICD-10-PCS; 2018-05-09)
PROC: 02HK3JZ Insertion of Pacemaker Lead into Right Ventricle, Percutaneous Approach (ICD-10-PCS; principal; 2018-05-14 10:00)
PROC: 0JH636Z Insertion of Pacemaker, Dual Chamber into Chest Subcutaneous Tissue and Fascia, Percutaneous Approach (ICD-10-PCS; principal; 2018-05-14 10:00)
PROC: 02H63JZ Insertion of Pacemaker Lead into Right Atrium, Percutaneous Approach (ICD-10-PCS; principal; 2018-05-14 10:00)
DX: I49.5 Sick sinus syndrome (principal); I50.43 Acute on chronic combined systolic (congestive) and diastolic (congestive) heart failure; I13.0 Hypertensive heart and chronic kidney disease with heart failure and stage 1 through stage 4 chronic kidney disease, or unspecified chronic kidney disease; N17.9 Acute kidney failure, unspecified; I48.92 Unspecified atrial flutter; Z68.41 Body mass index [BMI] 40.0-44.9, adult; E11.22 Type 2 diabetes mellitus with diabetic chronic kidney disease; E11.51 Type 2 diabetes mellitus with diabetic peripheral angiopathy without gangrene; N18.3 Chronic kidney disease, stage 3 (moderate); I25.5 Ischemic cardiomyopathy; I25.10 Atherosclerotic heart disease of native coronary artery without angina pectoris; I44.7 Left bundle-branch block, unspecified; L23.1 Allergic contact dermatitis due to adhesives; E03.9 Hypothyroidism, unspecified; E66.01 Morbid (severe) obesity due to excess calories; I25.2 Old myocardial infarction; Z95.5 Presence of coronary angioplasty implant and graft; Z79.01 Long term (current) use of anticoagulants; Z79.02 Long term (current) use of antithrombotics/antiplatelets; Z79.4 Long term (current) use of insulin; Z79.82 Long term (current) use of aspirin; Z79.899 Other long term (current) drug therapy; Z91.040 Latex allergy status; Z91.048 Other nonmedicinal substance allergy status; Z88.5 Allergy status to narcotic agent; Z88.6 Allergy status to analgesic agent; Z88.8 Allergy status to other drugs, medicaments and biological substances; Z82.49 Family history of ischemic heart disease and other diseases of the circulatory system

== ENCOUNTER → 2018-05-07 | Outpatient (CLI) | payer OTHER ==
[~2018-05-07] MED LIST changes: -AMLO-110 PO; +AMLO5TAB3 PO; +ASPI81TA28 PO; -BUPIVACAINE 0.25% 2.5MG/ML PF 10 ML VIAL ONE; +GARL1TAB8 PO; +HYDR1OIN EXT; -IOPAMIDOL INJ 61% 15 ML VIAL ONE; +ISOS30TA3 PO; +LABE100T3 PO; -LIDOCAINE HCL 1% MPF 5 ML VIAL ONE; +SNTONWC TP; +TRMCR130WC TP; +VITA1TAB4 PO
--- NOTE | 2018-05-07 12:39 | DIAGNOSTIC IMAGING REPORT ---
MRI OF THE LUMBAR SPINE WITHOUT CONTRAST CLINICAL HISTORY: Right L5 radiculopathy with foot drop. COMPARISON STUDY: Lumbar spine MRI April 20, [address] December 26, 2013. TECHNIQUE: Utilizing a 1.5 Joi magnet and dedicated coil, multiplanar, multiecho imaging of the lumbar spine was performed without IV contrast. FINDINGS: For purposes of numbering on this exam, the L5-S1 disc space is assigned to axial image 2729. There is an old moderate L1 compression fracture with 60% loss of vertebral body height anteriorly. There is no retropulsion at this level. Note is made of moderate marrow edema within the right inferior aspect of the T12 vertebral body with minimal prevertebral edema. There is no retropulsion. There is mild loss of height of the right aspect of T12. No intracanalicular mass or fluid collection is present. Conus terminates at the L1 level. Paravertebral soft tissues are unremarkable. Note is made of a tiny central disc protrusion at T12-L1. L1-2: The central canal and neural foramen are patent. L2-3: The central canal and neural foramen are patent. L3-4: Central canal and neural foramen are patent. There is moderate facet arthrosis. L4-5: Central canal and neural foramen are patent. There is moderate facet arthrosis. L5-S1: There is mild disc space narrowing with disc bulge and facet arthrosis. Central canal is patent. There is mild bilateral neural foraminal stenosis. IMPRESSION: 1. Moderate marrow edema with minimal prevertebral edema along the right aspect of the inferior endplate of T12 with mild loss of vertebral body height. This could reflect an acute compression fracture or acute Schmorl's nodes. No retropulsion. 2. Old moderate L1 compression fracture. 3. Mild multilevel degenerative disc disease. Patent central canal. 4. Moderate multilevel facet arthrosis. Mild bilateral neural foraminal stenosis at L5-S1. Electronically signed by: Cali Jacobo M.D. 05/07/2018 12:38 PM Dictated Date/Time: 05/07/2018 12:28 PM
== END | disposition home or self-care (01) ==
LOC: C.MRI 10:32
PROVIDERS: ATTEND Physical Medicine & Rehabilitation
DX: M79.604 Pain in right leg (principal); M21.371 Foot drop, right foot; M54.5 Low back pain

== ENCOUNTER → 2018-05-23 | Outpatient (CLI) | payer OTHER ==
[~2018-05-23] MED LIST changes: +ASPI81TA28 PO; +GARL1TAB8 PO; -GARLTAB3 PO; +HYDR1OIN EXT; +LABE100T3 PO; -LABETALOL PO; +SNTONWC TP; +TRMCR130WC TP; +VITA1TAB4 PO; -VITA400C3 PO
[2018-05-23 15:11] LABS: BLOOD UREA NITROGEN 30 mg/dl (7-18); CALCIUM 9.1 mg/dl (8.5-10.1); CARBON DIOXIDE 29 mmol/L (21-32); CREATININE 1.87 mg/dl (0.60-1.20); GLUCOSE 128 mg/dl (70-99); POTASSIUM 3.9 mmol/L (3.5-5.1); SODIUM 140 mmol/L (136-145)
== END | disposition home or self-care (01) ==
LOC: C.LAB1850 13:36
PROVIDERS: ATTEND Physician Assistant
DX: E03.9 Hypothyroidism, unspecified (principal)

== ENCOUNTER 2018-10-14 00:23 | Inpatient (IN) ==
[2018-10-14] MEDS ORDERED: fentaNYL citrate 100 MCG/2 ML VIAL IV STA (00:57)
[2018-10-14] MEDS ORDERED: ALBUMIN 25% 50 ML IV ONE (03:53)
--- NOTE | 2018-10-14 03:56 | History & Physical Report ---
Date of Service October 14, 2018 Assessment & Plan (1) Left sided chest pain: 78-year-old female was admitted on 14 October 2018 for chest pain. Chest pain: Patient notes CP at rest and additional SOB with exertion. PMH known multivessel CAD and s/p NATY to mid-LAD in October 2017. Here symptoms greatly improved with fentanyl (given due to intolerance to morphine and sublingual nitroglycerin). She took extra doses of her imdur yesterday as well. Afebrile, not tachycardic (though on multiple cardiac meds and PMH bradycardia & s/p pacemaker placement), and borderline hypotension without overt symptoms (e.g. dizziness, lightheadedness). pCXR without evidence of volume overload or acute infiltrate (formal rads read pending). Initial TnI negative. EKG NSR 94 with known LBBB. - Will trend EKG and TnI in near-term. - Due to concerns for developing NSTEMI, will start heparin bolus and drip. - Fentanyl PRN has been helping with chest pain, however unfortunately it cannot be given outside the ICU. --- Discussed the same with the patient. We will prescribe low-dose Dilaudid IV as a trial. If no noted hives/swelling, perhaps can be increased in dosage as needed for chest pain. - Will provide IVF and a single-dose of albumin for the relative hypotension. - Consulted cardiology. Chronic medical issues: - CAD: As discussed above as well. On home Plavix. Has allergy to ASA. - Systolic congestive heart failure / Cardiomyopathy: Echocardiogram in April 2018 noted EF 45-50%, inferior wall hypokinesis (see full report). At home is on Lasix 80 mg PO BID, imdur, labetalol. Held those acutely here due to hypotension. - Paroxysmal atrial flutter: Held home labetalol. On home amiodarone. Also on home KCl 20 mEq PO q AM as well as on mag oxide. --- Held home apixaban while on heparin. - CKD stage III: Admit Cr 2.03, similar to prior. - Diabetes type 2: Last HbA1c in Jul 2018 was 6.4. Will monitor glucose here. - Hypothyroidism: On home synthroid. - GERD: Rarely symptomatic per patient. On home ranitidine. - Hypertension: At home is on labetalol, imdur, amlodipine. Held those acutely here due to hypotension. - Hyperlipidemia: Has allergies to statins. - Moderate MR, mild-moderate . Code status: Full code. Did briefly discuss options so that she can clarify wishes in the future. Diet: DM2, heart healthy. DVT prophy: Heparin as noted above. PT/OT: Deferred. Disbo: Admit to telemetry. , lives home alone with family support nearby. (2) CAD (coronary artery disease): (3) Congestive heart failure: (4) Cardiomyopathy: (5) Atrial flutter: (6) CKD (chronic kidney disease), stage III: (7) DM II (diabetes mellitus, type II), controlled: (8) Hypothyroidism: (9) GERD (gastroesophageal reflux disease): (10) HTN (hypertension): (11) HLD (hyperlipidemia): History of Present Illness Primary Care Provider: Boby Reddy MD 78-year-old female presents via EMS for intermittent chest pain that began about 1 week ago. Initially she says the pain was in her left upper chest and would occur 1-2 times a day for 5-10-minute intervals, self resolving. However , in the past 2 days the severity and duration of pain has been progressively worsening. On day prior to admit (30Dec) she says she woke around 7 AM with the chest pain. She had some acute exacerbations around noon, 4 PM, and again around 10 PM which prompted her call for EMS. She describes it as an intense pain in her left mid chest that radiates into her jaw and left arm. She says she took three of her imdur pills (instead of just the one daily pill) which may have helped. She notes intolerance to morphine (hives) and nitroglycerin ( severe headache). She denies any baseline shortness of breath but does say it was worse with movement recently. She recalls issues with increased fluid retention but says this has resolved on her higher dose of Lasix 80 mg twice a day as well as her watching her salt intake. In the emergency room, patient says that her chest pain has nearly completely resolved after single dose of fentanyl. She denies any shortness of breath or other acute symptoms/concerns outside of some mild worrying about her heart. Allergies Allergy/AdvReac Type Severity Reaction Status Date / Time adhesive Allergy Unknown REDNESS Verified 10/14/18 02:01 AND IRRITATION FROM PAIN PATCH, TAPE latex Allergy Unknown ALLERGIC Verified 10/14/18 02:01 TO LATEX TAPE/RASH/ITCHING morphine Allergy Unknown swelling Verified 10/14/18 02:01 nausea vomiting olmesartan Allergy Unknown UNKNOWN Verified 10/14/18 02:01 exenatide [From [place]] Allergy Unknown Verified 10/14/18 02:01 glyburide Allergy Unknown Verified 10/14/18 02:01 metformin Allergy Unknown Verified 10/14/18 02:01 sitagliptin [From Januvia] Allergy Unknown Verified 10/14/18 02:01 aspirin AdvReac Mild GI SYMPTOMS Verified 10/14/18 02:01 ezetimibe AdvReac Mild MUSCLE Verified 10/14/18 02:01 ACHES lisinopril AdvReac Unknown LIGHTHEADED Verified 10/14/18 02:01 AND DIZZY pioglitazone AdvReac Unknown DIARRHEA Verified 10/14/18 02:01 NAUSEA [id number]-Gfm Reductase AdvReac Unknown myalgias Verified 10/14/18 02:01 Inhibitor and weakness Home Medications Home Medications Medication Instructions Recorded Confirmed Type amiodarone 200 mg PO QPM 06/17/18 10/14/18 History amlodipine 5 mg PO QAM 06/17/18 10/14/18 History apixaban [Eliquis] 5 mg PO BID 06/17/18 10/14/18 History clopidogrel [Plavix] 75 mg PO QPM 06/17/18 10/14/18 History garlic 1 tab PO QAM 06/17/18 10/14/18 History insulin asp prt-insulin aspart 0 units SUBCUT AMPM 06/17/18 10/14/18 History [Novolog Mix 70-30 U-100 Insuln] levothyroxine 75 mcg PO QAM 06/17/18 10/14/18 History magnesium oxide 400 mg PO QPM 06/17/18 10/14/18 History multivitamin [Multiple Vitamins] 1 tab PO DAILY 06/17/18 10/14/18 History potassium chloride 20 meq PO QAM 06/17/18 10/14/18 History ranitidine HCl 150 mg PO DAILY PRN 06/17/18 10/14/18 History triamcinolone acetonide 1 applic TOPICAL BID PRN 06/17/18 10/14/18 History vitamin E 400 unit PO QAM 06/17/18 10/14/18 History albuterol sulfate [Ventolin HFA] 2 puff INHALATION QID PRN 10/14/18 10/14/18 History furosemide 80 mg PO AMPM 10/14/18 10/14/18 History isosorbide mononitrate 30 mg PO QAM 10/14/18 10/14/18 History labetalol 75 mg PO QPM 10/14/18 10/14/18 History Past Med/Surg History Medical History Left bundle branch block Hypothyroid CKD (chronic kidney disease), stage III DM II (diabetes mellitus, type II), controlled Bilateral carotid artery stenosis Congestive heart failure 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 Atrial flutter Morbid obesity HLD (hyperlipidemia) HTN (hypertension) Surgical History Pacemaker Presence of stent in LAD coronary artery Family History Other Pacemaker Social History Current Living Situation: Alone Feels Safe at Home: Yes Smoking Status: Never smoker Second Hand Exposure: No Hx Alcohol Use: No Hx Substance Use: No Beliefs That Will Affect Care: None Preferred Language: Polish Review of Systems Constitutional: Denies fevers, chills, focal weakness Eyes: Denies any visual loss or diplopia ENT: Denies any ear/nose/throat pain or difficulty speaking or swallowing Respiratory: Denies any dyspnea, cough, hemoptysis Cardiovascular: See HPI. Gastrointestinal: Denies any abdominal pain, nausea/vomiting/diarrhea Musculoskeletal: Denies any acute extremity pains, myalgias, or focal weakness Skin: Denies any known acute rashes or lesions Neuro: Denies any headache, acute focal weakness or numbness, or difficulties with speech or swallow. Psych: Denies any recent depression or anxiety Physical Exam 2 Vital Signs (Past 24 Hours): Last Vital Signs Temp 36.6 C 10/14/18 00:32 Pulse 66 10/14/18 02:40 Resp 18 10/14/18 02:40 BP 93/51 L 10/14/18 02:40 Pulse Ox 94 10/14/18 02:40 Physical Exam: GENERAL: Awake, alert, well-appearing, in no distress HENT: Normocephalic, atraumatic. Oropharynx unremarkable. EYES: Normal conjunctiva. Sclera non-icteric. NECK: Inspection normal. Non-tender. Supple and full ROM. No nuchal rigidity. CARDIAC: +S1S2 RRR, 2/6 systolic murmurs. Left upper chest pacemaker in place. RESPIRATORY: Clear to auscultation. No wheezes or rales. Normal respiratory effort. GI: +BS, soft, non-distended. No tenderness to palpation. No rebound or guarding. No appreciable masses. EXTREMITIES: No pedal edema or calf tenderness. Moving all extremities naturally and easily. NEURO: No gross neuro deficits. Lines: PIV. Results & Data Laboratory Results 10/14/18 10/14/18 10/14/18 Range/Units 00:30 00:30 00:30 WBC 8.40 (4.8-10.8) K/uL RBC 3.77 L (4.2-5.4) M/uL Hgb 12.5 (12.0-16.0) g/dL Hct 38.0 (37-47) % MCV 100.8 H (80-100) fL MCH 33.2 (25-34) pg MCHC 32.9 (32-36) g/dL RDW Std Deviation 48.0 H (36.4-46.3) fL RDW Coeff of Manuela 13.3 (11.5-14.5) % Plt Count 270 (130-400) K/uL MPV 10.8 H (7.4-10.4) fL Immature Gran % (Auto) 0.1 % Neut % (Auto) 52.8 % Lymph % (Auto) 34.6 % [place] % (Auto) 9.9 % Eos % (Auto) 2.4 % Baso % (Auto) 0.2 % Immature Gran # (Auto) 0.01 (0.00-0.02) K/uL Neut # (Auto) 4.43 (1.4-6.5) K/uL Lymph # (Auto) 2.91 (1.2-3.4) K/uL [place] # (Auto) 0.83 H (0.11-0.59) K/uL Eos # (Auto) 0.20 (0-0.5) K/uL Baso # (Auto) 0.02 (0-0.2) K/uL PT 10.4 (9.0-12.0) Seconds INR 1.0 (0.9-1.1) APTT 26.7 (21.0-31.0) Seconds PTT Ratio 1.0 Sodium 139 (136-145) mmol/L Potassium 4.0 (3.5-5.1) mmol/L Chloride 100 (98-107) mmol/L Carbon Dioxide 32 (21-32) mmol/L Anion Gap 7.0 (3-11) BUN 34 H (7-18) mg/dl Creatinine 2.03 H (0.6-1.2) mg/dl Est Cr Clr Drug Dosing 26.5 ml/min Est GFR ( Amer) 26.4 Est GFR (Non-Af Amer) 22.7 BUN/Creatinine Ratio 16.8 (10-20) Glucose 128 H (70-99) mg/dl Calcium 8.7 (8.5-10.1) mg/dl Total Bilirubin 0.3 (0.1-1) mg/dl AST 16 (15-37) U/L ALT 27 (12-78) U/L Alkaline Phosphatase 104 (45-117) U/L Troponin I 0.036 (0-0.045) ng/ml Total Protein 7.2 (6.4-8.2) gm/dl Albumin 3.2 L (3.4-5.0) gm/dl Globulin 4.0 (2.5-4.0) gm/dl Albumin/Globulin Ratio 0.8 L (0.9-2) Code Status & VTE Plan Code Status Full code VTE Prophylaxis Plan VTE Prophylaxis will be ordered: Yes Supervising Physician Co-Signing Physician Notes Attending addendum: I have physically seen this patient, have supervised the medical residents activities, and agree with the H&P unless as otherwise noted. Assessment and Plan: Unstable angina/multivessel CAD/status post NATY to mid LAD lesion in October 2017/status post follow-up cardiac cath 04/2018/ atrial flutter/CHF-- The patient will be admitted to telemetry for serial cardiac enzymes, serial EKG's, cardiac rhythm monitoring and a 2-D echocardiogram with Dopplers. Continue clopidogrel 75 mg p.o. daily, amiodarone 200 mg daily, and amlodipine 5 mg p.o. every morning. For now, hold furosemide, potassium and magnesium until after any possible procedure. Gentle hydration with IV fluids to further optimize kidney function. Patient reports that she is unable to take nitroglycerin, however, she is on isosorbide mononitrate every morning, which for now will be held until clarified. Start heparin drip with bolus per protocol at 5:30AM, when her Eliquis dosing has worn off. Hold Eliquis. Of note, patient's blood pressure in the right arm is significantly higher than the left, and all blood pressure should be taken from the right arm. Remainder of orders and notations as noted. Resident Activity Tracking Resident Involvement: Resident Care Provided Care Provided: Adult Hospital Medicine
[2018-10-14] MEDS ORDERED: ALBUTEROL HFA 8 GM INHALER INH PRN (05:28)
[2018-10-14] MEDS ORDERED: HEPARIN IV BOLUS 3,000 UNITS in SYRINGE 0 ML IV ONE (05:44)
[2018-10-14] MEDS: HEPARIN STANDARD DEXTROSE 25,000 UNITS/500 ML IV SCH (06:02)
[2018-10-14] MEDS: SODIUM CHLORIDE 0.9% 1000ML 1,000 ML IV SCH ×2 (06:02→15:16)
--- NOTE | 2018-10-14 06:11 | XRay Report ---
XR chest 1V portable HISTORY: 78 years-old Female Chest Pain acute atypical chest pain COMPARISON: Chest radiographs 09/24/2018, CT chest 05/11/2018 TECHNIQUE: Portable AP view of the chest FINDINGS: Cardiac silhouette is mildly enlarged, unchanged. Left subclavian pacer appears stable. Trace right p leural effusion. Chronic interstitial coarsening of the mid and lower lung zones compatible with subp leural reticulation seen on comparison chest CT. No overt pulmonary edema. Calcification the thoracic aortic arch. No pneumothorax. Subsegmental basilar opacities. Degenerative changes of the shoulders and spine. IMPRESSION: 1. Mild cardiomegaly without overt pulmonary edema. 2. Trace right pleural effusion. 3. Chronic interstitial coarsening with subsegmental bibasilar atelectasis. The above report was generated using voice recognition software. It may contain grammatical, syntax o r spelling errors. Electronically signed by: Valentino Lerner M.D. 10/14/2018 6:10 AM
[2018-10-14] MEDS: HYDROmorphone INJ 0.5 MG/0.5 ML SYR IV PRN ×3 (06:23→19:10)
[2018-10-14] MEDS: LEVOTHYROXINE SODIUM 75 MCG TABLET PO SCH (06:38)
[2018-10-14] MEDS: AMLODIPINE BESYLATE 5 MG TAB PO SCH (07:44)
[2018-10-14] MEDS: MULTIVITAMIN TAB PO SCH (07:44)
[2018-10-14] MEDS: TOCOPHERYL, DL-ALPHA 400 UNITS CAP PO SCH (07:44)
[2018-10-14] MEDS: POTASSIUM CHLORIDE 20 MEQ TABCR PO SCH (07:44)
--- NOTE | 2018-10-14 08:01 | Emergency Department Note ---
Entered by Jaye Ansari acting as a scribe for History of Present Illness General Chief complaint: Chest Pain Time Seen by Provider: 10/14/18 00:33 Source: patient Mode of arrival: ambulatory Limitations: no limitations History of Present Illness Provider complaint: chest pain Onset (ago): day(s) (few) Location: chest Radiation: other (jaw, arm) Pain Consistency: + intermittent Maximum Pain Intensity: 8 Quality: + other (chest pain) Associated symptoms: + nausea/vomiting and + shortness of breath The patient is a 78 year old female who presents to the Emergency Room with complaints of intermittent chest pain beginning a few days ago. She reports when the chest pain began, she experienced the pain for about 10 minutes at a time, twice a day. The patient states her pain has been increasing in severity and duration over the past 2 days. She reports current chest pain beginning over an hour ago, which radiates into her arm and jaw. The patient reports she experiences shortness of breath and nausea with the chest pain. She notes her current symptoms do not feel similar to her two previous heart attacks. The patient reports a history of catheterization and stent placement 1 year ago, and states she had a pacemaker placed 6 months ago. The patient sees Dr. 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 Reddy as her PCP. Home Medications Home Medications Medication Instructions Recorded Confirmed Type amiodarone 200 mg PO QPM 06/17/18 10/14/18 History amlodipine 5 mg PO QAM 06/17/18 10/14/18 History apixaban [Eliquis] 5 mg PO BID 06/17/18 10/14/18 History clopidogrel [Plavix] 75 mg PO QPM 06/17/18 10/14/18 History garlic 1 tab PO QAM 06/17/18 10/14/18 History insulin asp prt-insulin aspart 0 units SUBCUT AMPM 06/17/18 10/14/18 History [Novolog Mix 70-30 U-100 Insuln] levothyroxine 75 mcg PO QAM 06/17/18 10/14/18 History magnesium oxide 400 mg PO QPM 06/17/18 10/14/18 History multivitamin [Multiple Vitamins] 1 tab PO DAILY 06/17/18 10/14/18 History potassium chloride 20 meq PO QAM 06/17/18 10/14/18 History ranitidine HCl 150 mg PO DAILY PRN 06/17/18 10/14/18 History triamcinolone acetonide 1 applic TOPICAL BID PRN 06/17/18 10/14/18 History vitamin E 400 unit PO QAM 06/17/18 10/14/18 History albuterol sulfate [Ventolin HFA] 2 puff INHALATION QID PRN 10/14/18 10/14/18 History furosemide 80 mg PO AMPM 10/14/18 10/14/18 History isosorbide mononitrate 30 mg PO QAM 10/14/18 10/14/18 History labetalol 75 mg PO QPM 10/14/18 10/14/18 History Allergies Allergy/AdvReac Type Severity Reaction Status Date / Time adhesive Allergy Unknown REDNESS Verified 10/14/18 02:01 AND IRRITATION FROM PAIN PATCH, TAPE latex Allergy Unknown ALLERGIC Verified 10/14/18 02:01 TO LATEX TAPE/RASH/ITCHING morphine Allergy Unknown swelling Verified 10/14/18 02:01 nausea vomiting olmesartan Allergy Unknown UNKNOWN Verified 10/14/18 02:01 exenatide [From [place]] Allergy Unknown Verified 10/14/18 02:01 glyburide Allergy Unknown Verified 10/14/18 02:01 metformin Allergy Unknown Verified 10/14/18 02:01 sitagliptin [From Januvia] Allergy Unknown Verified 10/14/18 02:01 aspirin AdvReac Mild GI SYMPTOMS Verified 10/14/18 02:01 ezetimibe AdvReac Mild MUSCLE Verified 10/14/18 02:01 ACHES lisinopril AdvReac Unknown LIGHTHEADED Verified 10/14/18 02:01 AND DIZZY pioglitazone AdvReac Unknown DIARRHEA Verified 10/14/18 02:01 NAUSEA [id number]-Tcs Reductase AdvReac Unknown myalgias Verified 10/14/18 02:01 Inhibitor and weakness Past Med/Surg History Medical History Left bundle branch block Hypothyroid CKD (chronic kidney disease), stage III DM II (diabetes mellitus, type II), controlled Bilateral carotid artery stenosis Congestive heart failure 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 and A total of 10 systems reviewed and were otherwise negative Physical Exam Vital Signs Vital Signs - 24 hr 10/14/18 00:32 10/14/18 01:00 10/14/18 01:08 Temperature 36.6 C Temperature Source Oral Sepsis Recent Fever Within 48 Hours No Sepsis Action Taken by Nursing No Action Required Pulse Rate 90 75 Pulse Rate [Right Finger] 74 Pulse Rhythm Regular Pulse Rhythm [Right Finger] Regular Pulse Strength [Right Finger] Normal Respiratory Rate 18 18 14 Respiratory Effort / Characteristics Non-Labored Non-Labored Respiratory Depth Normal Normal Respiratory Pattern Regular Regular Blood Pressure 111/78 Blood Pressure [Right Arm] 101/57 L Blood Pressure Mean 89 Blood Pressure Mean [Right Arm] 71 Blood Pressure Position Lying Blood Pressure Position [Right Arm] Lying Pulse Oximetry 98 96 99 Oxygen Delivery Method Room Air Nasal Cannula Nasal Cannula Oxygen Flow Rate 3 3 10/14/18 01:27 10/14/18 01:47 10/14/18 01:50 Temperature Temperature Source Sepsis Recent Fever Within 48 Hours Sepsis Action Taken by Nursing Pulse Rate Pulse Rate [Right Finger] 71 69 65 Pulse Rhythm Pulse Rhythm [Right Finger] Regular Regular Regular Pulse Strength [Right Finger] Normal Normal Respiratory Rate 95 H 16 Respiratory Effort / Characteristics Non-Labored Non-Labored Respiratory Depth Normal Normal Respiratory Pattern Regular Regular Blood Pressure Blood Pressure [Right Arm] 92/56 L 98/62 L Blood Pressure Mean Blood Pressure Mean [Right Arm] 68 74 Blood Pressure Position Blood Pressure Position [Right Arm] Lying Lying Pulse Oximetry 95 98 Oxygen Delivery Method Nasal Cannula Oxygen Flow Rate 3 10/14/18 02:40 10/14/18 03:40 10/14/18 04:32 Temperature Temperature Source Sepsis Recent Fever Within 48 Hours Sepsis Action Taken by Nursing Pulse Rate 65 Pulse Rate [Right Finger] 66 66 Pulse Rhythm Pulse Rhythm [Right Finger] Regular Regular Pulse Strength [Right Finger] Normal Normal Respiratory Rate 18 16 18 Respiratory Effort / Characteristics Non-Labored Non-Labored Respiratory Depth Normal Normal Respiratory Pattern Regular Regular Blood Pressure 145/79 H Blood Pressure [Right Arm] 93/51 L 144/66 H Blood Pressure Mean Blood Pressure Mean [Right Arm] 65 92 Blood Pressure Position Blood Pressure Position [Right Arm] Lying Lying Pulse Oximetry 94 97 97 Oxygen Delivery Method Nasal Cannula Nasal Cannula Nasal Cannula Oxygen Flow Rate 3 3 3 10/14/18 05:00 10/14/18 07:30 Temperature 36.5 C 36.7 C Temperature Source Oral Oral Sepsis Recent Fever Within 48 Hours Sepsis Action Taken by Nursing Pulse Rate Pulse Rate [Right Finger] 78 65 Pulse Rhythm Pulse Rhythm [Right Finger] Pulse Strength [Right Finger] Respiratory Rate 22 16 Respiratory Effort / Characteristics Non-Labored Spontaneous Respiratory Depth Normal Respiratory Pattern Regular Blood Pressure Blood Pressure [Right Arm] 154/81 H 146/72 H Blood Pressure Mean Blood Pressure Mean [Right Arm] 105 96 Blood Pressure Position Blood Pressure Position [Right Arm] Pulse Oximetry 98 96 Oxygen Delivery Method Nasal Cannula Nasal Cannula Oxygen Flow Rate 3 2 HEENT: Head - normocephalic and atraumatic Pupils are equal, round, and reactive to light. Extraocular eye muscles are intact, and sclera are anicteric. Nose - moist nasal mucosa without discharge. Mouth - moist buccal mucosa. Oropharynx is nonerythematous and there is no tonsillar exudate or edema noted. Neck: Supple; no JVD, nuchal rigidity, cervical lymphadenopathy, or auscultated bruits. Heart: Regular rate and rhythm. 5/6 systolic ejection murmur, heard best over the tricuspid valve. Lungs: Clear to auscultation bilaterally with no wheezes, rales, or rhonchi. Abdomen: Soft, completely nontender, nondistended, with good bowel sounds. There are no palpable pulsatile masses or hepatosplenomegaly. There is no guarding, rigidity, or rebound noted. Extremities: No evidence of cyanosis, clubbing, or edema. There are easily palpable peripheral pulses. Skin: warm and dry with good turgor and no rashes. Course 0040: Patient was evaluated in room A3. A complete history and physical examination was performed. IV lock was established. A 12-lead EKG was obtained as described above. A portable chest x-ray obtained. The patient was observed on the heating repair technician and pulse oximeter. 0056: I reviewed the patient�s cardiac catheterization report from 11/03/17, and she did receive Fentanyl. At that time the patient had stent placed in the LAD, and was noted to have moderate multi-vessel disease in the RCA and circumflex, 40-55%. 0058: Ordered Fentanyl Citrate 50 mcg IV. 0149: Upon reevaluation, the patient's pain has improved. I discussed test results. They verbalized agreement with the treatment plan. The patient states she also had a cardiac catheterization performed in April prior to her stent placement. 0154: I reviewed the patient�s cardiac catheterization report from 05/09/18, at that time the patient had worsening coronary artery disease compared to her October catheterization. 0206: I reviewed the patient's case with Dr. Dan, [facility] hospitalist. He will evaluate the patient for further management. Consultations Consultation #1: I reviewed the patient's case with Dr. Dan, [facility] hospitalist. He will evaluate the patient for further management. Time: 02:06 Administered Medications Amlodipine Besylate (Norvasc) 5 mg PO QAM [facility] Stop: 11/13/18 08:59 Last Admin: 10/14/18 07:44 Dose: 5 mg Hydromorphone HCl (Dilaudid) 0.5 mg IV Q4H PRN PRN Reason: Pain Stop: 10/28/18 03:52 Last Admin: 10/14/18 06:23 Dose: 0.5 mg Sodium Chloride (Nss 1000ml) 1,000 mls @ 100 mls/hr IV .Q10H ANDREW Stop: 11/13/18 03:59 Last Admin: 10/14/18 06:02 Dose: 100 mls/hr Heparin Sodium/Dextrose (Heparin Sodium/Dextrose) 25,000 units in 500 mls @ 26 mls/hr IV .[id number] [facility]; Protocol Stop: 11/13/18 05:45 Last Titration: 10/14/18 07:15 Dose: 1,300 units/hr, 26 mls/hr Admin: 10/14/18 06:02 Dose: 1,300 units/hr, 26 mls/hr Levothyroxine Sodium (Synthroid) 75 mcg PO DAILYBB [facility] Stop: 11/13/18 06:29 Last Admin: 10/14/18 06:38 Dose: 75 mcg Multivitamins (Multivitamin) 1 tab PO DAILY ANDREW Stop: 11/13/18 08:59 Last Admin: 10/14/18 07:44 Dose: 1 tab Potassium Chloride (Klor-Con M20) 20 meq PO QAM ANDREW Stop: 11/13/18 08:59 Last Admin: 10/14/18 07:44 Dose: 20 meq Vitamin E (Vitamin E) 400 units PO QAM ANDREW Stop: 11/13/18 08:59 Last Admin: 10/14/18 07:44 Dose: 400 units Discontinued Medications Fentanyl Citrate (Fentanyl Citrate) 50 mcg IV NOW STA Stop: 10/14/18 00:58 Last Admin: 10/14/18 01:07 Dose: 50 mcg Heparin Sodium/Dextrose () 1 ea N/A NOW STA; Protocol Stop: 10/14/18 03:59 Last Admin: 10/14/18 06:03 Dose: Not Given Albumin Human (Albumin 25%) 50 mls @ 50 mls/hr IV ONE ONE Stop: 10/14/18 04:52 Last Admin: 10/14/18 05:38 Dose: Not Given Heparin Sodium (Porcine) 3,000 (units/ Syringe) 3 mls @ 10 mls/min IV NOW ONE Stop: 10/14/18 05:45 Last Admin: 10/14/18 06:03 Dose: 10 mls/min Medical Decision Making Differential Diagnosis Etiologies considered include GERD, unstable angina, NSTEMI, aortic dissection. Medical Records Attestation: I reviewed the patient's medical records. Home Medications Current Medication List: was personally reviewed by me Laboratory Data Attestation: I reviewed the patient's lab results. Result diagrams: 10/14/18 00:30 10/14/18 00:30 Lab Results 10/14/18 10/14/18 10/14/18 Range/Units 00:30 00:30 00:30 WBC 8.40 (4.8-10.8) K/uL RBC 3.77 L (4.2-5.4) M/uL Hgb 12.5 (12.0-16.0) g/dL Hct 38.0 (37-47) % MCV 100.8 H (80-100) fL MCH 33.2 (25-34) pg MCHC 32.9 (32-36) g/dL RDW Std Deviation 48.0 H (36.4-46.3) fL RDW Coeff of Manuela 13.3 (11.5-14.5) % Plt Count 270 (130-400) K/uL MPV 10.8 H (7.4-10.4) fL Immature Gran % (Auto) 0.1 % Neut % (Auto) 52.8 % Lymph % (Auto) 34.6 % [place] % (Auto) 9.9 % Eos % (Auto) 2.4 % Baso % (Auto) 0.2 % Immature Gran # (Auto) 0.01 (0.00-0.02) K/uL Neut # (Auto) 4.43 (1.4-6.5) K/uL Lymph # (Auto) 2.91 (1.2-3.4) K/uL [place] # (Auto) 0.83 H (0.11-0.59) K/uL Eos # (Auto) 0.20 (0-0.5) K/uL Baso # (Auto) 0.02 (0-0.2) K/uL PT 10.4 (9.0-12.0) Seconds INR 1.0 (0.9-1.1) APTT 26.7 (21.0-31.0) Seconds PTT Ratio 1.0 Sodium 139 (136-145) mmol/L Potassium 4.0 (3.5-5.1) mmol/L Chloride 100 (98-107) mmol/L Carbon Dioxide 32 (21-32) mmol/L Anion Gap 7.0 (3-11) BUN 34 H (7-18) mg/dl Creatinine 2.03 H (0.6-1.2) mg/dl Est Cr Clr Drug Dosing 26.5 ml/min Est GFR ( Amer) 26.4 Est GFR (Non-Af Amer) 22.7 BUN/Creatinine Ratio 16.8 (10-20) Glucose 128 H (70-99) mg/dl Calcium 8.7 (8.5-10.1) mg/dl Magnesium (1.8-2.4) mg/dl Total Bilirubin 0.3 (0.1-1) mg/dl AST 16 (15-37) U/L ALT 27 (12-78) U/L Alkaline Phosphatase 104 (45-117) U/L Troponin I 0.036 (0-0.045) ng/ml Total Protein 7.2 (6.4-8.2) gm/dl Albumin 3.2 L (3.4-5.0) gm/dl Globulin 4.0 (2.5-4.0) gm/dl Albumin/Globulin Ratio 0.8 L (0.9-2) 10/14/18 Range/Units 04:14 WBC (4.8-10.8) K/uL RBC (4.2-5.4) M/uL Hgb (12.0-16.0) g/dL Hct (37-47) % MCV (80-100) fL MCH (25-34) pg MCHC (32-36) g/dL RDW Std Deviation (36.4-46.3) fL RDW Coeff of Manuela (11.5-14.5) % Plt Count (130-400) K/uL MPV (7.4-10.4) fL Immature Gran % (Auto) % Neut % (Auto) % Lymph % (Auto) % [place] % (Auto) % Eos % (Auto) % Baso % (Auto) % Immature Gran # (Auto) (0.00-0.02) K/uL Neut # (Auto) (1.4-6.5) K/uL Lymph # (Auto) (1.2-3.4) K/uL [place] # (Auto) (0.11-0.59) K/uL Eos # (Auto) (0-0.5) K/uL Baso # (Auto) (0-0.2) K/uL PT (9.0-12.0) Seconds INR (0.9-1.1) APTT (21.0-31.0) Seconds PTT Ratio Sodium (136-145) mmol/L Potassium (3.5-5.1) mmol/L Chloride (98-107) mmol/L Carbon Dioxide (21-32) mmol/L Anion Gap (3-11) BUN (7-18) mg/dl Creatinine (0.6-1.2) mg/dl Est Cr Clr Drug Dosing ml/min Est GFR ( Amer) Est GFR (Non-Af Amer) BUN/Creatinine Ratio (10-20) Glucose (70-99) mg/dl Calcium (8.5-10.1) mg/dl Magnesium 2.2 (1.8-2.4) mg/dl Total Bilirubin (0.1-1) mg/dl AST (15-37) U/L ALT (12-78) U/L Alkaline Phosphatase (45-117) U/L Troponin I 0.033 (0-0.045) ng/ml Total Protein (6.4-8.2) gm/dl Albumin (3.4-5.0) gm/dl Globulin (2.5-4.0) gm/dl Albumin/Globulin Ratio (0.9-2) ECG Data Attestation: I personally reviewed and interpreted this ECG as follows: Indication: chest pain Rate (beats per minute): 94 Rhythm: normal sinus Findings: + LBBB; no PAC, no PVC, no ST depression and no ST elevation Comparison ECG Date: from (06/17/18) Change: no significant change Blood Pressure Blood Pressure Findings: Low blood pressure Blood Pressure Disposition: further management by hospitalist MDM Narrative The patient is a 78 year old female who presents to the Emergency Room with complaints of intermittent chest pain beginning a few days ago. The patient's chest discomfort seems to radiate up into her left shoulder, jaw and left arm. It is exacerbated by exercise and relieved with rest. The patient has a known history of moderate coronary artery disease. I am concerned for cardiac ischemia. The patient's chest discomfort was relieved with fentanyl. She does not tolerate aspirin or nitroglycerin. I discussed the case with the [facility] Hospitalist and she will require further inpatient care and evaluation by cardiology. Impression & Plan Left sided chest pain Discharge Plan Visit Data *Final* Discharge Date/Time: 10/14/18 04:32 Chief Complaint: Chest Pain ED Provider: Dorina Lacey Discharge Problem: Left sided chest pain Patient Disposition: Being Evaluated by Hospitalist Discharge Instructions Interventions: ED Discharge Assessment Last Done: 10/14/18 04:32 The scribe's documentation has been prepared under my direction and personally reviewed by me in its entirety. I confirm that the note above accurately reflects all work, treatment, procedures, and medical decision making performed by me.
[2018-10-14] MEDS ORDERED: GARLIC PO SCH (09:00)
--- NOTE | 2018-10-14 10:41 | Cardiology Consultation ---
Date of Consultation October 14, 2018 Assessment & Plan (1) Chest pain: She describes chest pain which is very typical in its character, and in the setting of known coronary disease this is worrisome. On the other hand the duration with negative enzymes X4 makes it unlikely that the symptoms are due to coronary artery disease. She seems to respond better to pain medications then to heparin or nitroglycerin. (2) CAD (coronary artery disease): She has long-standing known coronary artery disease. She has had intervention at times, however she has had a number of catheterizations without obstructive disease. I think her symptoms have always been difficult to figure out and her chest discomfort (despite the typical character of it) may not be due to coronary artery disease. (3) Cardiomyopathy: She has a long-standing cardiomyopathy, presumably ischemic in etiology, with mild left ventricular dysfunction. That does not seem to have changed. Currently she does not seem to be on a beta-estephania, at home she is on labetalol. Her blood pressure is elevated currently but was low on admission. She probably should be on a beta-estephania over the long run, I am not sure why labetalol was used. (4) Congestive heart failure: She has a history of congestive heart failure, she has never had severe left ventricular dysfunction but has had a mild cardiomyopathy presumably ischemic in etiology. At the moment she does not appear to be in overt congestive heart failure, the chest x-ray does not suggested and her exam does not suggest it. I would not diurese with her creatinine where it is but I would not give her excess fluid either. (5) Pacemaker: Her pacemaker was implanted in April of this year, it was checked in the office in May but not since. She does have home monitoring set up so I do not suspect a problem, however we should interrogate at this visit. I will arrange that for tomorrow but there is no evidence of malfunction. History of Present Illness Reason for Consultation: Chest pain, pacemaker Attending Physician: Tesfaye Rodriguez History of Present Illness This is a 78-year-old woman who has a history of carotid disease as well as coronary artery disease dating back at least to identification 2000. At that time she did not have severe disease, and repeat catheterization 2004 did not show significant change. In 2009 she had ischemia identified and mildly reduced left ventricular function and she also had mild valvular aortic stenosis around that time and was well as moderate mitral regurgitation. Cardiac catheterization on April 22, 2015 showed left ventricular ejection fraction 45-50% with progressive disease but not to the point where intervention was required. Unfortunately she has been intolerant to statins which have been tried multiple times. She then presented on February 01, 2016 in atrial flutter with a rapid ventricular response and underwent urgent cardioversion on February 01. She was started on amiodarone and was maintained on Xarelto which she was already on for deep vein thrombosis. Xarelto has been replaced with Eliquis. She had progressive carotid disease as well as an occluded proximal left subclavian artery and therefore had left carotid endarterectomy on May 18, 2016. She did present to the hospital on October 10, 2017 with chest discomfort rating down her left arm and slight troponin elevation as well as CHF, with ongoing chest discomfort she did undergo catheterization October 11, 2017 where she had diffuse disease including a small second LAD diagonal with 99% proximal stenosis, however intervention was not performed. Her ejection fraction was 40-45% at the time by echocardiography. Her aortic valve area by echo was 1.1 cm�. She continued to have angina and was admitted November 03, 2017 for LAD intervention with stents placed in the mid LAD and the second diagonal. She presented again with congestive heart failure May 07, 2018 with no change in her ejection fraction. She had an abnormal stress test and therefore catheterization was performed again May 09, 2018 with diffuse nonobstructive coronary disease identified. She was treated medically. She developed intermittent fatigue and near syncope, the symptoms correlated with sinus bradycardia and therefore a dual-chamber pacemaker was implanted on May 14, 2018. She was seen in our office in May where her pacemaker is functioning well and her symptoms seem to have improved, however I do not believe she has been seen for pacemaker evaluation since. She now presents with intermittent chest discomfort for several days, it has been increasing in frequency and duration. The chest discomfort is in her chest with radiation to her left arm and jaw. She does get shortness of breath and nausea with the discomfort. She has left bundle branch block therefore her electrocardiogram cannot be evaluated for ischemia, her troponin is negative x3. She has chronic kidney disease, her creatinine is about the same now, around 2. Allergies Allergy/AdvReac Type Severity Reaction Status Date / Time adhesive Allergy Unknown REDNESS Verified 10/14/18 02:01 AND IRRITATION FROM PAIN PATCH, TAPE latex Allergy Unknown ALLERGIC Verified 10/14/18 02:01 TO LATEX TAPE/RASH/ITCHING morphine Allergy Unknown swelling Verified 10/14/18 02:01 nausea vomiting olmesartan Allergy Unknown UNKNOWN Verified 10/14/18 02:01 exenatide [From Byetta] Allergy Unknown Verified 10/14/18 02:01 glyburide Allergy Unknown Verified 10/14/18 02:01 metformin Allergy Unknown Verified 10/14/18 02:01 sitagliptin [From Januvia] Allergy Unknown Verified 10/14/18 02:01 aspirin AdvReac Mild GI SYMPTOMS Verified 10/14/18 02:01 ezetimibe AdvReac Mild MUSCLE Verified 10/14/18 02:01 ACHES lisinopril AdvReac Unknown LIGHTHEADED Verified 10/14/18 02:01 AND DIZZY pioglitazone AdvReac Unknown DIARRHEA Verified 10/14/18 02:01 NAUSEA Fosnsii-Kfa-Fxz Reductase AdvReac Unknown myalgias Verified 10/14/18 02:01 Inhibitor and weakness Home Medications Home Medications Medication Instructions Recorded Confirmed Type amiodarone 200 mg PO QPM 06/17/18 10/14/18 History amlodipine 5 mg PO QAM 06/17/18 10/14/18 History apixaban [Eliquis] 5 mg PO BID 06/17/18 10/14/18 History clopidogrel [Plavix] 75 mg PO QPM 06/17/18 10/14/18 History garlic 1 tab PO QAM 06/17/18 10/14/18 History insulin asp prt-insulin aspart 0 units SUBCUT AMPM 06/17/18 10/14/18 History [Novolog Mix 70-30 U-100 Insuln] levothyroxine 75 mcg PO QAM 06/17/18 10/14/18 History magnesium oxide 400 mg PO QPM 06/17/18 10/14/18 History multivitamin [Multiple Vitamins] 1 tab PO DAILY 06/17/18 10/14/18 History potassium chloride 20 meq PO QAM 06/17/18 10/14/18 History ranitidine HCl 150 mg PO DAILY PRN 06/17/18 10/14/18 History triamcinolone acetonide 1 applic TOPICAL BID PRN 06/17/18 10/14/18 History vitamin E 400 unit PO QAM 06/17/18 10/14/18 History albuterol sulfate [Ventolin HFA] 2 puff INHALATION QID PRN 10/14/18 10/14/18 History furosemide 80 mg PO AMPM 10/14/18 10/14/18 History isosorbide mononitrate 30 mg PO QAM 10/14/18 10/14/18 History labetalol 75 mg PO QPM 10/14/18 10/14/18 History Patient History Medical History Left bundle branch block Hypothyroid CKD (chronic kidney disease), stage III DM II (diabetes mellitus, type II), controlled Bilateral carotid artery stenosis Congestive heart failure 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 No clear exertional symptoms, no excessive dyspnea on exertion. No orthopnea or PND or peripheral edema. Nausea but no overt vomiting, no bleeding, no black bowel movements. No neurologic complaints such as TIA or stroke symptoms. Other systems negative. Physical Exam 2 Vital Signs (Past 24 Hours): Last Vital Signs Temp 36.7 C 10/14/18 07:30 Pulse 65 10/14/18 08:38 Resp 16 10/14/18 07:30 BP 146/72 H 10/14/18 07:30 Pulse Ox 96 10/14/18 07:30 Physical Exam: Constitutional: Alert, cooperative and in moderate distress. HEENT: Unremarkable Neck: No jugular venous distention, carotid pulses are normal and equal bilaterally without bruits. Pulmonary: Clear to auscultation bilaterally. Cardiac: Regular rhythm with a grade 2/6 crescendo decrescendo murmur at the base, no gallop or rub. Abdomen: Soft, nontender with normal bowel sounds. Extremities: No edema. Distal pulses intact. Neurologic: No focal findings. Gait was not tested. Skin: No rash, ecchymoses or petechiae. Results & Data Diagnostic Findings Electrocardiography: She has had several electrocardiograms which show sinus rhythm with left bundle branch block. Perhaps some minor ST-T abnormalities but this is not easily interpreted in view of left bundle branch block. Telemetry: Sinus rhythm, occasional atrial pacing. Echocardiography: Reviewed at bedside, full report to follow. Her ejection fraction appears to be about the same, she has wall motion abnormalities and an abnormal from her left bundle branch block so no wall motion abnormalities are called to discern but there is nothing obvious. Valve abnormalities also seems similar (aortic stenosis and mitral regurgitation).
--- NOTE | 2018-10-14 10:47 | Hospitalist Progress Note ---
Date of Service October 14, 2018 Assessment & Plan (1) Chest pain: Features of her pain description and history are concerning for ischemic pain. However, the pain has been present quite frequently for 2+ days and despite such her troponins are negative. urgent echo performed today showed stable findings relative to previous echo with no change in her wall motion. She had no response to GI cocktail but her symptoms didn't fit with a pure GI issue any way. She takes chronic eliquis making VTE unlikely. Many of her symptoms do not fit with with aortic dissection. Plan - continue heparin infusion, standard dose, for now. repeat troponin at 12noon, then again at 6pm. await official echo report. consider chest CT. give mucomyst 600mg BID x 4 doses and cont gentle hydration in the event she needs an urgent cath and in light of her CKD stage 3. I have d/w Dr. Alvarez on 2 occasions her plan of care and I appreciate his input. Present on Admission?: Yes (2) CAD (coronary artery disease): s/p cath in April 2018 with patent LAD stent and nonobstructive CAD otherwise. high-risk cath candidate due to elevated Creatinine/CKD. (3) Left bundle branch block: chronic. (4) Hypothyroidism: TSH 1 month ago was compensated. Cont synthroid as is. (5) CKD (chronic kidney disease), stage III: creatinine has been about 2 for the last 3 months. BMP in am. (6) DM II (diabetes mellitus, type II), controlled: check BSGs ac/hs. novolog sliding scale. low threshold for lantus. (7) Pacemaker: interrogation requested by Dr. Alvarez. (8) HTN (hypertension): controlled. cont home meds. (9) HLD (hyperlipidemia): she is statin intolerant. (10) Morbid obesity: BMI 36 (11) Atrial flutter: h/o / paroxysmal pacemaker in place takes eliquis chronically; now on heparin infusion (12) Chronic combined systolic and diastolic CHF (congestive heart failure): currently compensated. lasix was held overnight due to hypotension. receiving IV fluids cautiously in the event she needs heart cath. watch volume status carefully. cont BB not HERMELINDO/ARB candidate due to CKD (13) DVT prophylaxis: heparin infusion son updated at bedside Subjective patient continues to have episodes of chest discomfort. left-sided in location. describes it as a "burning" and stabbing sensation. at is peak it is 9/10; lowest pain intensity 6/10. some radiation of pain to the left scapula as well as left arm/left shoulder. occasional jaw pain. mild nausea at times and mild dyspnea at times. doesn't endorse frequent heartburn symptoms. denies abdominal pain. pain is different in some ways in comparison to prior heart attack pain. denies recent travel. denies noncompliance with eliquis at home. Constitutional: no fever and no chills Respiratory: no cough Cardiovascular: as per Subjective / HPI, + chest pain, + chest pain at rest, + radiating jaw, neck or arm pain and + dyspnea; no orthopnea, no paroxysmal nocturnal dyspnea and no palpitations Gastrointestinal: no abdominal pain Physical Exam 2 Vital Signs (Past 24 Hours): Last Vital Signs Temp 36.7 C 10/14/18 07:30 Pulse 65 10/14/18 08:38 Resp 16 10/14/18 07:30 BP 146/72 H 10/14/18 07:30 Pulse Ox 96 10/14/18 07:30 Constitutional: well developed, well nourished and + obese; no acute distress and not ill appearing ENMT: external ear and nose normal, oropharynx normal Respiratory: normal respiratory effort, lungs clear to auscultation Cardiovascular: Rate/Rhythm: regular rate and regular rhythm Heart Sounds: normal S1, normal S2 and + murmur (2/6 LLSB) Vessels: posterior tibial pulses present and dorsalis pedis pulses present; no JVD Extremities: no edema Gastrointestinal (Abdomen): Percussion/Palpation: + abdomen tender (high epigastric region to palpation; no chest wall tenderness to palpation ) Musculoskeletal: no cyanosis or clubbing, extremities motor strength 5/5 Psychiatric: A+Ox3, euthymic affect Results & Data Laboratory Results Laboratory Results - last 24 hr 10/14/18 10/14/18 10/14/18 00:30 00:30 00:30 WBC 8.40 RBC 3.77 L Hgb 12.5 Hct 38.0 MCV 100.8 H MCH 33.2 MCHC 32.9 RDW Std Deviation 48.0 H RDW Coeff of Manuela 13.3 Plt Count 270 MPV 10.8 H Immature Gran % (Auto) 0.1 Neut % (Auto) 52.8 Lymph % (Auto) 34.6 [place] % (Auto) 9.9 Eos % (Auto) 2.4 Baso % (Auto) 0.2 Immature Gran # (Auto) 0.01 Neut # (Auto) 4.43 Lymph # (Auto) 2.91 [place] # (Auto) 0.83 H Eos # (Auto) 0.20 Baso # (Auto) 0.02 PT 10.4 INR 1.0 APTT 26.7 PTT Ratio 1.0 Sodium 139 Potassium 4.0 Chloride 100 Carbon Dioxide 32 Anion Gap 7.0 BUN 34 H Creatinine 2.03 H Est Cr Clr Drug Dosing 26.5 Est GFR ( Amer) 26.4 Est GFR (Non-Af Amer) 22.7 BUN/Creatinine Ratio 16.8 Glucose 128 H Calcium 8.7 Magnesium Total Bilirubin 0.3 AST 16 ALT 27 Alkaline Phosphatase 104 Troponin I 0.036 Total Protein 7.2 Albumin 3.2 L Globulin 4.0 Albumin/Globulin Ratio 0.8 L 10/14/18 10/14/18 10/14/18 04:14 09:03 11:50 WBC RBC Hgb Hct MCV MCH MCHC RDW Std Deviation RDW Coeff of Manuela Plt Count MPV Immature Gran % (Auto) Neut % (Auto) Lymph % (Auto) [place] % (Auto) Eos % (Auto) Baso % (Auto) Immature Gran # (Auto) Neut # (Auto) Lymph # (Auto) [place] # (Auto) Eos # (Auto) Baso # (Auto) PT INR APTT 65.5 H* PTT Ratio 2.5 Sodium Potassium Chloride Carbon Dioxide Anion Gap BUN Creatinine Est Cr Clr Drug Dosing Est GFR ( Amer) Est GFR (Non-Af Amer) BUN/Creatinine Ratio Glucose Calcium Magnesium 2.2 Total Bilirubin AST ALT Alkaline Phosphatase Troponin I 0.033 0.037 Total Protein Albumin Globulin Albumin/Globulin Ratio 10/14/18 11:50 WBC RBC Hgb Hct MCV MCH MCHC RDW Std Deviation RDW Coeff of Manuela Plt Count MPV Immature Gran % (Auto) Neut % (Auto) Lymph % (Auto) [place] % (Auto) Eos % (Auto) Baso % (Auto) Immature Gran # (Auto) Neut # (Auto) Lymph # (Auto) [place] # (Auto) Eos # (Auto) Baso # (Auto) PT INR APTT PTT Ratio Sodium Potassium Chloride Carbon Dioxide Anion Gap BUN Creatinine Est Cr Clr Drug Dosing Est GFR ( Amer) Est GFR (Non-Af Amer) BUN/Creatinine Ratio Glucose Calcium Magnesium Total Bilirubin AST ALT Alkaline Phosphatase Troponin I 0.032 Total Protein Albumin Globulin Albumin/Globulin Ratio Diagnostic Findings EKG - LBBB _ (1) Chest pain Chest pain type: unspecified Qualified Code(s): R07.9 - Chest pain, unspecified (2) CAD (coronary artery disease) Coronary Disease-Associated Artery/Lesion type: [place] artery [place] vs. transplanted heart: [place] heart Associated angina: with unspecified angina Qualified Code(s): I25.119 - Atherosclerotic heart disease of [place] coronary artery with unspecified angina pectoris (3) Hypothyroidism Hypothyroidism type: acquired Qualified Code(s): E03.9 - Hypothyroidism, unspecified (4) DM II (diabetes mellitus, type II), controlled Diabetes mellitus structural designer insulin use: with structural designer use Diabetes mellitus complication detail: with nephropathy Diabetes mellitus complication status: with kidney complications Qualified Code(s): E11.21 - Type 2 diabetes mellitus with diabetic nephropathy; Z79.4 - retirement (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 (5) HTN (hypertension) Hypertension type: essential hypertension Qualified Code(s): I10 - Essential (primary) hypertension (6) HLD (hyperlipidemia) Hyperlipidemia type: mixed hyperlipidemia Qualified Code(s): E78.2 - Mixed hyperlipidemia (7) Atrial flutter Atrial flutter type: unspecified Qualified Code(s): I48.92 - Unspecified atrial flutter
[2018-10-14] MEDS ORDERED: ALUMINUM/MAGNESIUM SUSP 18 ML, LIDOCAINE HCL VISCOUS 2% 6 ML, BARCODE IDENTIFIER 1 EA PO ONE (11:04)
[2018-10-14] MEDS ORDERED: DEXTROSE 50% 50 ML SYRINGE IV PRN (13:43)
[2018-10-14] MEDS ORDERED: GLUCOSE 40% GEL 15 GM TUBE PO PRN (13:43)
[2018-10-14] MEDS ORDERED: CARBOHYDRATES FOR HYPOGLYCEMIA PO PRN (13:43)
[2018-10-14] MEDS ORDERED: GLUCOSE 10 TABS/TUBE PO PRN (13:43)
[2018-10-14] MEDS ORDERED: GLUCAGON FOR INJ 1 MG VIAL IM PRN (13:43)
[2018-10-14] MEDS: ACETYLCYSTEINE 600 MG CAP PO SCH ×2 (13:47→20:25)
--- NOTE | 2018-10-14 14:29 | CT Scan Report ---
CT chest wo con CT DOSE: 424.28 mGy.cm CLINICAL HISTORY: 78 years-old Female with ongoing chest pain, eval intrathoracic pathology. Acute c hest pain with shortness of breath TECHNIQUE: Multiaxial CT images of the chest were performed without contrast. A dose lowering techni que was utilized adhering to the principles of ALARA. COMPARISON: Chest radiograph of same day, CT chest 05/11/2018. FINDINGS: Heterogeneous appearance of the thyroid without dominant nodule. Mild multichamber cardiac enlargemen t without pericardial effusion. Coronary arterial calcifications are noted. No thoracic aortic aneury sm. Moderate calcification about the thoracic aortic arch. The main pulmonary artery measures 3.2 cm transversely. Left subclavian pacer is noted with leads overlying the right atrium and right ventricl e. No adenopathy identified. Small right and trace left pleural effusions. Subpleural reticulation, probably within the mid to low er lung zones redemonstrated. Scattered calcified granulomata of the lungs. No pneumothorax. Mild bilateral intralobular septal thickening. Minimal dependent subsegmental ground glass and consolidative opacities suggest atelectasis. Central airways appear patent. No significant bronchiectasis or any calming. Thickening of the bronchovascular bundles. Hyperattenuating focus noted about the distal esophageal lumen, 7 mm possibly reflecting a pill. Smal l sliding-type hiatal hernia. No acute process the imaged upper abdomen. Soft tissues are within norm al limits. Degenerative changes of the shoulders and spine. Multilevel spondylitic spurring. IMPRESSION: 1. Cardiomegaly with mild pulmonary edema, trace left and small right pleural effusions. 2. Dependent bibasilar consolidative and groundglass opacities suggest atelectasis. 3. Unchanged bilateral subpleural reticulation compatible with fibrosis. 4. Prior granulomatous disease. Electronically signed by: Valentino Lerner M.D. 10/14/2018 2:28 PM
[2018-10-14] MEDS ORDERED: FUROSEMIDE 40 MG TAB PO ONE (15:21)
--- NOTE | 2018-10-14 15:35 | History & Physical Bridge Note ---
Date of Service October 14, 2018 History & Physical Bridge Note Update from earlier today - echo (verbal report) with unchanged wall motion; official reading to be available tomorrow. troponin at noon again was negative. patient had no relief of symptoms with GI cocktail. CT chest with fibrosis and possible mild pulmonary edema but no large masses, pneumonia, etc. Incidental note of a pill in the distal esophagus during the CT. Patient had taken her mucomyst capsule about [address] (I would have anticipated that the pill would be in the stomach by the time of the CT, however, unless the pill was in the hiatal hernia). I spoke with Dr. Alvarez once more - no plans for "code heart alert" unless she had worsening symptoms or other objective findings to suggest acute coronary syndrome. I checked on the patient at ~315pm -- she reports ongoing chest discomfort but "not as bad." She had nausea/emesis after getting back from CT --- likely from the mucomyst. She is off fluids and off oxygen. Denies dyspnea. Like earlier in the day she appeared comfortable. I discussed with her the test results (echo, troponin, CT chest, etc). plan - recheck troponin (final check) at 1800 tonight. check sed rate/crp but doubt pericarditis. place on IV ppi in the event this is GI-related pain. NPO after mn tonight in the event she needs a procedure tomorrow. Consider GI consultation if cardiology feels this is not cardiac chest pain. As precautionary measure will keep her on the heparin infusion. I have ordered mucomyst x 4 doses in the event she needs a dye load in the next 24 hours for heart cath. family at bedside updated. Tesfaye Rodriguez MD
[2018-10-14] MEDS: PANTOprazole 40 MG in SYRINGE 0 ML IV SCH (15:48)
[2018-10-14] MEDS: INSULIN ASPART 100 UNITS/ML 3 ML PEN SC SCH ×2 (17:01→20:27)
[2018-10-14] MEDS: ONDANSETRON INJ 2 MG/ML 2 ML VIAL IV PRN (19:16)
[2018-10-14] MEDS: AMIODARONE 200 MG TAB PO SCH (20:25)
[2018-10-14] MEDS: MAGNESIUM OXIDE 400 MG TAB PO SCH (20:26)
[2018-10-14] MEDS: CLOPIDOGREL BISULFATE 75 MG TAB PO SCH (20:27)
[2018-10-15] MEDS ORDERED: Nursing to Pharmacy Communication ONE (00:38)
[2018-10-15] MEDS: HEPARIN STANDARD DEXTROSE 25,000 UNITS/500 ML IV SCH (02:00)
[2018-10-15] MEDS: LEVOTHYROXINE SODIUM 75 MCG TABLET PO SCH (05:43)
[2018-10-15] MEDS: INSULIN ASPART 100 UNITS/ML 3 ML PEN SC SCH ×3 (05:44→16:43)
[2018-10-15] MEDS: ONDANSETRON INJ 2 MG/ML 2 ML VIAL IV PRN (06:00)
[2018-10-15] MEDS: AMLODIPINE BESYLATE 5 MG TAB PO SCH (08:30)
[2018-10-15] MEDS: MULTIVITAMIN TAB PO SCH (08:30)
[2018-10-15] MEDS: TOCOPHERYL, DL-ALPHA 400 UNITS CAP PO SCH (08:30)
[2018-10-15] MEDS: POTASSIUM CHLORIDE 20 MEQ TABCR PO SCH (08:30)
[2018-10-15] MEDS: ACETYLCYSTEINE 600 MG CAP PO SCH ×2 (08:34→20:19)
[2018-10-15] MEDS: HYDROmorphone INJ 0.5 MG/0.5 ML SYR IV PRN (09:10)
--- NOTE | 2018-10-15 09:11 | Cardiology Progress Note ---
Date of Service October 15, 2018 Assessment & Plan (1) Chest pain: She describes chest pain which is very typical in its character, and in the setting of known coronary disease this is worrisome. On the other hand the duration with negative enzymes X5 makes it unlikely that the symptoms are due to coronary artery disease. She seems to respond better to pain medications then to heparin or nitroglycerin. As far as I am concerned her heparin could be stopped. (2) CAD (coronary artery disease): She has long-standing known coronary artery disease. She has had intervention at times, however she has had a number of catheterizations without obstructive disease. I think her symptoms have always been difficult to figure out and her chest discomfort (despite the typical character of it) does not appear to be due to coronary artery disease. (3) Cardiomyopathy: She has a long-standing cardiomyopathy, presumably ischemic in etiology, with mild left ventricular dysfunction. That does not seem to have changed. Currently she does not seem to be on a beta-estephania, at home she is on labetalol which is not typically used for cardiomyopathy. Her blood pressure is acceptable although sometimes high currently but was low on admission. She probably should be on a beta-estephania over the long run, I am not sure why labetalol was used. If there is no contraindication I would recommend using carvedilol over the long run. (4) Congestive heart failure: She has a history of congestive heart failure, she has never had severe left ventricular dysfunction but has had a mild cardiomyopathy presumably ischemic in etiology. At the moment she does not appear to be in overt congestive heart failure, the chest x-ray does not suggested and her exam does not suggest it. I would not diurese with her creatinine where it is but I would not give her additional fluid either. (5) Pacemaker: Her pacemaker was implanted in April of this year, it was checked here this morning and is working very well as noted above. Battery voltage is excellent, she is pacing most of the time. (6) Atrial flutter: She has a history of atrial flutter and was on Eliquis prior to admission for that (as well as her history of DVT), and should remain on it. Pacemaker interrogation shows only 20 minutes of atrial flutter with a controlled ventricular response is May of this year, that occurred on October 08. She is on amiodarone and that appears to be reasonably successful trolling her rhythm and rate and I would continue the current dose. Subjective She continued to have chest discomfort during the night, intermittently but for the most part it occurred throughout the night. She also had nausea and did vomit. No shortness of breath. Physical Exam 2 Vital Signs (Past 24 Hours): Last Vital Signs Temp 37.0 C 10/15/18 07:32 Pulse 63 10/15/18 07:32 Resp 20 10/15/18 07:32 BP 134/60 10/15/18 07:32 Pulse Ox 96 10/15/18 07:32 Physical Exam: Constitutional: Alert, cooperative and in no distress. Pulmonary: Clear to auscultation bilaterally. Cardiac: Regular rhythm with a grade 2/6 crescendo decrescendo murmur at the base, a grade 3/6 holosystolic murmur at the apex, no gallop or rub. Abdomen: Soft, nontender with normal bowel sounds. Extremities: No edema. Skin: No rash, ecchymoses or petechiae. Results & Data Diagnostic Findings Telemetry: Atrial pacing in sinus rhythm with intact AV conduction ECG this morning: Left bundle branch block, sinus rhythm this morning, no change from prior Pacemaker: Evaluation of her pacemaker this morning shows excellent pacing and sensing characteristics in both leads, predominantly atrial paced (68% of the time) with an appropriate heart rate distribution. Occasional atrial fibrillation, since last interrogation June 11, 2018 she has had only 20 minutes of atrial fibrillation (on October 08) with a controlled heart rate. Excellent battery voltage. _ (1) CAD (coronary artery disease) Associated angina: with unspecified angina Coronary Disease-Associated Artery /Lesion type: resighini artery [place] vs. transplanted heart: resighini heart Qualified Code(s): I25.119 - Atherosclerotic heart disease of resighini coronary artery with unspecified angina pectoris (2) Chest pain Chest pain type: unspecified Ischemic chest pain type: Qualified Code(s): R07.9 - Chest pain, unspecified
[2018-10-15] MEDS: PANTOprazole 40 MG in SYRINGE 0 ML IV SCH (10:05)
--- NOTE | 2018-10-15 13:28 | Gastrointestinal Consultation ---
Date of Consultation October 15, 2018 Assessment & Plan (1) Chest pain: non cardiac per cardiology. Continue PPI. Discussed with patient recommend EGD vs UGI. With holiday could do EGD today but not until Oct 17 as inpt and third option is outpt. Stopped Heparin just now so told patient the anticoagulation may limit therapeutics but ok to do diagnostic EGD since she has been NPO after MN. Explained procedure and risks which include but not limited to med reaction, bleeding, perforation, aspiration. She would like to proceed with EGD today. hx of GERD--EGD as above dysphagia---EGD as above. anticoagulation--Elliquis as outpt held, IV heparin currently. History of Present Illness Reason for Consultation: atypical chest pain Attending Physician: Bhanu Rueda History of Present Illness cc chest pain HPI Pt with hx of multivessel CAD s/p stenting, DVT and flutter on Elliquis presented to hospital with low chest vs epigastric pain and shortness of breath. Pain burning and sharp. Cardiology saw patient and thought pain was non cardiac. She takes Ranitidine prn for epigastric pain at home. She states current pain episode started about 10/09/18 and occurred for 5 minutes at a time then resolved but became more frequent and intense so came to ER and was admitted. CBC and LFTs were normal. CXR cardiomegaly, Chest CT pill in esophagus and small HH. She has occoasional dysphagia symtpoms. No scopes in EMR. Allergies Allergy/AdvReac Type Severity Reaction Status Date / Time adhesive Allergy Unknown REDNESS Verified 10/14/18 02:01 AND IRRITATION FROM PAIN PATCH, TAPE latex Allergy Unknown ALLERGIC Verified 10/14/18 02:01 TO LATEX TAPE/RASH/ITCHING morphine Allergy Unknown swelling Verified 10/14/18 02:01 nausea vomiting olmesartan Allergy Unknown UNKNOWN Verified 10/14/18 02:01 exenatide [From Byetta] Allergy Unknown Verified 10/14/18 02:01 glyburide Allergy Unknown Verified 10/14/18 02:01 metformin Allergy Unknown Verified 10/14/18 02:01 sitagliptin [From Januvia] Allergy Unknown Verified 10/14/18 02:01 aspirin AdvReac Mild GI SYMPTOMS Verified 10/14/18 02:01 ezetimibe AdvReac Mild MUSCLE Verified 10/14/18 02:01 ACHES lisinopril AdvReac Unknown LIGHTHEADED Verified 10/14/18 02:01 AND DIZZY pioglitazone AdvReac Unknown DIARRHEA Verified 10/14/18 02:01 NAUSEA Arsxsnq-Tyt-Jon Reductase AdvReac Unknown myalgias Verified 10/14/18 02:01 Inhibitor and weakness Home Medications Home Medications Medication Instructions Recorded Confirmed Type amiodarone 200 mg PO QPM 06/17/18 10/14/18 History amlodipine 5 mg PO QAM 06/17/18 10/14/18 History apixaban [Eliquis] 5 mg PO BID 06/17/18 10/14/18 History clopidogrel [Plavix] 75 mg PO QPM 06/17/18 10/14/18 History garlic 1 tab PO QAM 06/17/18 10/14/18 History insulin asp prt-insulin aspart 0 units SUBCUT AMPM 06/17/18 10/14/18 History [Novolog Mix 70-30 U-100 Insuln] levothyroxine 75 mcg PO QAM 06/17/18 10/14/18 History magnesium oxide 400 mg PO QPM 06/17/18 10/14/18 History multivitamin [Multiple Vitamins] 1 tab PO DAILY 06/17/18 10/14/18 History potassium chloride 20 meq PO QAM 06/17/18 10/14/18 History ranitidine HCl 150 mg PO DAILY PRN 06/17/18 10/14/18 History triamcinolone acetonide 1 applic TOPICAL BID PRN 06/17/18 10/14/18 History vitamin E 400 unit PO QAM 06/17/18 10/14/18 History albuterol sulfate [Ventolin HFA] 2 puff INHALATION QID PRN 10/14/18 10/14/18 History furosemide 80 mg PO AMPM 10/14/18 10/14/18 History isosorbide mononitrate 30 mg PO QAM 10/14/18 10/14/18 History labetalol 75 mg PO QPM 10/14/18 10/14/18 History Patient History Medical History Left bundle branch block Hypothyroid CKD (chronic kidney disease), stage III DM II (diabetes mellitus, type II), controlled Bilateral carotid artery stenosis Congestive heart failure 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 Physical Exam 2 Vital Signs (Past 24 Hours): Last Vital Signs Temp 36.7 C 10/15/18 11:02 Pulse 65 10/15/18 11:02 Resp 20 10/15/18 11:02 BP 114/68 10/15/18 11:02 Pulse Ox 94 10/15/18 11:02 Constitutional: WD/WN, vitals as above Eyes: PERRL, conjunctivae normal, anicteric sclerae ENMT: external ear and nose normal, oropharynx normal Neck: normal visual inspection and trachea midline Respiratory: normal respiratory effort, lungs clear to auscultation Cardiovascular: Heart Sounds: no murmur Gastrointestinal (Abdomen): normal bowel sounds, soft, nontender, no hepatosplenomegaly Skin: warm and dry Neurologic: PERRL, EOMI, accommodation nl, no face palsy, no dysarthria Psychiatric: A+Ox3, euthymic affect _ (1) Chest pain Chest pain type: unspecified Ischemic chest pain type: Qualified Code(s): R07.9 - Chest pain, unspecified
[2018-10-15] MEDS ORDERED: PROPOFOL IV EMULSION 10 MG/ML 20 ML VIAL IV ONE (13:35)
[2018-10-15] MEDS ORDERED: LIDOCAINE HCL 2% 2 ML VIAL/AMP(20MG/ML) INFIL ONE (13:35)
--- NOTE | 2018-10-15 13:49 | Anesthesiology Consultation ---
Date of Service October 15, 2018 Assessment & Plan (1) Encounter for pre-operative examination: Chart Review Chart Review: Acceptable Risk for Surgery and Patient NOT seen in Pre Admission Testing Consults Requested cardiac Cardiology eval 10/15/2018: (1) Chest pain: She describes chest pain which is very typical in its character, and in the setting of known coronary disease this is worrisome. On the other hand the duration with negative enzymes X5 makes it unlikely that the symptoms are due to coronary artery disease. She seems to respond better to pain medications then to heparin or nitroglycerin. As far as I am concerned her heparin could be stopped. (2) CAD (coronary artery disease): She has long-standing known coronary artery disease. She has had intervention at times, however she has had a number of catheterizations without obstructive disease. I think her symptoms have always been difficult to figure out and her chest discomfort (despite the typical character of it) does not appear to be due to coronary artery disease. (3) Cardiomyopathy: She has a long-standing cardiomyopathy, presumably ischemic in etiology, with mild left ventricular dysfunction. That does not seem to have changed. Currently she does not seem to be on a beta-venice, at home she is on labetalol which is not typically used for cardiomyopathy. Her blood pressure is acceptable although sometimes high currently but was low on admission. She probably should be on a beta-venice over the long run, I am not sure why labetalol was used. If there is no contraindication I would recommend using carvedilol over the long run. (4) Congestive heart failure: She has a history of congestive heart failure, she has never had severe left ventricular dysfunction but has had a mild cardiomyopathy presumably ischemic in etiology. At the moment she does not appear to be in overt congestive heart failure, the chest x-ray does not suggested and her exam does not suggest it. I would not diurese with her creatinine where it is but I would not give her additional fluid either. (5) Pacemaker: Her pacemaker was implanted in April of this year, it was checked here this morning and is working very well as noted above. Battery voltage is excellent, she is pacing most of the time. (6) Atrial flutter: She has a history of atrial flutter and was on Eliquis prior to admission for that (as well as her history of DVT), and should remain on it. Pacemaker interrogation shows only 20 minutes of atrial flutter with a controlled ventricular response is May of this year, that occurred on October 08. She is on amiodarone and that appears to be reasonably successful trolling her rhythm and rate and I would continue the current dose. History Surgery Operation Date: 10/15/18 08:25 Proposed Procedures p Esophagogastroduodenoscopy Dr Ennis - Aurelio Ennis Height/Weight Height: 5 ft 5 in Weight: 98.4 kg Allergies Allergy/AdvReac Type Severity Reaction Status Date / Time adhesive Allergy Unknown REDNESS Verified 10/14/18 02:01 AND IRRITATION FROM PAIN PATCH, TAPE latex Allergy Unknown ALLERGIC Verified 10/14/18 02:01 TO LATEX TAPE/RASH/ITCHING morphine Allergy Unknown swelling Verified 10/14/18 02:01 nausea vomiting olmesartan Allergy Unknown UNKNOWN Verified 10/14/18 02:01 exenatide [From Byetta] Allergy Unknown Verified 10/14/18 02:01 glyburide Allergy Unknown Verified 10/14/18 02:01 metformin Allergy Unknown Verified 10/14/18 02:01 sitagliptin [From Januvia] Allergy Unknown Verified 10/14/18 02:01 aspirin AdvReac Mild GI SYMPTOMS Verified 10/14/18 02:01 ezetimibe AdvReac Mild MUSCLE Verified 10/14/18 02:01 ACHES lisinopril AdvReac Unknown LIGHTHEADED Verified 10/14/18 02:01 AND DIZZY pioglitazone AdvReac Unknown DIARRHEA Verified 10/14/18 02:01 NAUSEA Ieyhftj-Yoo-Bna Reductase AdvReac Unknown myalgias Verified 10/14/18 02:01 Inhibitor and weakness Medications Home Medications Medication Instructions Recorded Confirmed Last Taken amiodarone 200 mg PO QPM 06/17/18 10/14/18 10/13/18 amlodipine 5 mg PO QAM 06/17/18 10/14/18 10/13/18 apixaban [Eliquis] 5 mg PO BID 06/17/18 10/14/18 10/13/18 clopidogrel [Plavix] 75 mg PO QPM 06/17/18 10/14/18 10/13/18 garlic 1 tab PO QAM 06/17/18 10/14/18 10/13/18 insulin asp prt-insulin aspart 0 units SUBCUT AMPM 06/17/18 10/14/18 Unknown [Novolog Mix 70-30 U-100 Insuln] levothyroxine 75 mcg PO QAM 06/17/18 10/14/18 10/13/18 magnesium oxide 400 mg PO QPM 06/17/18 10/14/18 10/13/18 multivitamin [Multiple Vitamins] 1 tab PO DAILY 06/17/18 10/14/18 10/13/18 potassium chloride 20 meq PO QAM 06/17/18 10/14/18 10/13/18 ranitidine HCl 150 mg PO DAILY PRN 06/17/18 10/14/18 Unknown triamcinolone acetonide 1 applic TOPICAL BID PRN 06/17/18 10/14/18 Unknown vitamin E 400 unit PO QAM 06/17/18 10/14/18 10/13/18 albuterol sulfate [Ventolin HFA] 2 puff INHALATION QID PRN 10/14/18 10/14/18 Unknown furosemide 80 mg PO AMPM 10/14/18 10/14/18 10/13/18 isosorbide mononitrate 30 mg PO QAM 10/14/18 10/14/18 10/13/18 labetalol 75 mg PO QPM 10/14/18 10/14/18 10/13/18 Active Medications Generic Name Dose Route Start Last Admin Trade Name Freq PRN Reason Stop Dose Admin Acetylcysteine 600 mg 10/14/18 13:05 10/15/18 08:34 Mucomyst PO 10/15/18 21:01 Not Given BID ANDREW Amiodarone HCl 200 mg 10/14/18 21:00 10/14/18 20:25 Cordarone PO 11/13/18 20:59 200 mg QPM ANDREW Administration Amlodipine Besylate 5 mg 10/14/18 09:00 10/15/18 08:30 Norvasc PO 11/13/18 08:59 5 mg QAM ANDREW Administration Clopidogrel Bisulfate 75 mg 10/14/18 21:00 10/14/18 20:27 Plavix PO 11/13/18 20:59 75 mg QPM ANDREW Administration Hydromorphone HCl 0.5 mg 10/14/18 03:53 10/15/18 09:10 Dilaudid IV 10/28/18 03:52 0.5 mg Q4H PRN Administration Pain Heparin Sodium/Dextrose 25,000 units in 500 mls @ 26 mls/hr 10/14/18 05:46 06:41 Heparin Sodium/Dextrose IV 11/13/18 05:45 1,300 units/hr .[id number] ANDREW 26 mls/hr Titration Protocol 1,300 UNITS/HR Pantoprazole Sodium 40 mg/ 10 mls @ 5 mls/min 10/14/18 15:25 10/15/18 10:05 Syringe IV 11/13/18 15:24 5 mls/min DAILY@1100 ANDREW Administration Insulin Aspart 0 units 10/15/18 06:00 10/15/18 11:59 Novolog Flexpen SC 11/14/18 05:59 1 units Q6 ANDREW Administration Levothyroxine Sodium 75 mcg 10/14/18 06:30 10/15/18 05:43 Synthroid PO 11/13/18 06:29 75 mcg DAILYBB ANDREW Administration Magnesium Oxide 400 mg 10/14/18 21:00 10/14/18 20:26 Mag-Ox PO 11/13/18 20:59 400 mg QPM ANDREW Administration Multivitamins 1 tab 10/14/18 09:00 10/15/18 08:30 Multivitamin PO 11/13/18 08:59 1 tab DAILY ANDREW Administration Ondansetron HCl 4 mg 10/14/18 03:53 10/15/18 06:00 Zofran IV 11/13/18 03:52 4 mg Q6H PRN Administration Nausea Potassium Chloride 20 meq 10/14/18 09:00 10/15/18 08:30 Klor-Con M20 PO 11/13/18 08:59 20 meq QAM ANDREW Administration Ranitidine HCl 150 mg 10/14/18 05:28 10/14/18 20:24 Zantac PO 11/13/18 05:27 150 mg DAILY PRN Administration Gi Upset Vitamin E 400 units 10/14/18 09:00 10/15/18 08:30 Vitamin E PO 11/13/18 08:59 400 units QAM ANDREW Administration Beta [place] Beta [place] Taken Within 24 Hours: Yes Past Medical History Medical History Left bundle branch block Hypothyroid CKD (chronic kidney disease), stage III DM II (diabetes mellitus, type II), controlled Bilateral carotid artery stenosis Congestive heart failure 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 Atrial flutter Morbid obesity HLD (hyperlipidemia) HTN (hypertension) Past Family History Family History Other Pacemaker Past Surgical History Surgical History Pacemaker Presence of stent in LAD coronary artery Past Anesthesia History No Hx of Anesthesia Complications History of PONV No Motion Sickness Screening History of Motion Sickness: No Social History Smoking Status: Never smoker Hx Alcohol Use: No Hx Substance Use: No Exercise / Class Metabolic Activity III < 4 Walking/Shop/Light housework Physical Exam Vital Signs Last Vital Signs Temp 36.7 C 10/15/18 11:02 Pulse 65 10/15/18 11:02 Resp 20 10/15/18 11:02 BP 114/68 10/15/18 11:02 Pulse Ox 94 10/15/18 11:02 Testing Electrocardiogram Date: 10/14/18 Findings: + NSR @ (76) Normal sinus rhythm Left bundle branch block Abnormal ECG When compared with ECG of 14-OCT-2018 12:19, (unconfirmed) Sinus rhythm has replaced Electronic ventricular pacemaker Confirmed by Petey Sanchez ([id number]) on 10/15/2018 11:41:17 AM Chest X-Ray Date: 10/14/18 FINDINGS: Cardiac silhouette is mildly enlarged, unchanged. Left subclavian pacer appears stable. Trace right pleural effusion. Chronic interstitial coarsening of the mid and lower lung zones compatible with subpleural reticulation seen on comparison chest CT. No overt pulmonary edema. Calcification the thoracic aortic arch. No pneumothorax. Subsegmental basilar opacities. Degenerative changes of the shoulders and spine. IMPRESSION: 1. Mild cardiomegaly without overt pulmonary edema. 2. Trace right pleural effusion. 3. Chronic interstitial coarsening with subsegmental bibasilar atelectasis. Echocardiogram Date: 10/15/18 EF: 40-45% positive RWMA. Mild . Laboratory Results 10/15/18 06:08 10/15/18 06:08 PT 10.4 Seconds (9.0-12.0) 10/14/18 00:30 INR 1.0 (0.9-1.1) 10/14/18 00:30 APTT 68.3 Seconds (21.0-31.0) H* 10/15/18 06:08 10/15/18 10/15/18 10/15/18 11:57 05:44 02:15 POC Glucose 181 H 108 H 126 H
--- NOTE | 2018-10-15 14:27 | Anesthesiology Progress Note ---
Date of Service October 15, 2018 Anesthesia Post Procedure Vital Signs Vital Signs: Temp Pulse Resp BP Pulse Ox 10/15/18 13:55 36.8 C 89 23 129/87 97 10/15/18 11:02 36.7 C 65 20 114/68 94 10/15/18 07:32 37.0 C 63 20 134/60 96 10/15/18 04:06 36.7 C 66 18 103/58 L 96 10/14/18 23:25 36.9 C 63 18 120/63 95 10/14/18 21:36 91 10/14/18 19:48 36.6 C 78 90 10/14/18 19:06 88 155/85 H 10/14/18 16:04 37.1 C 74 18 136/86 91 Pain Intensity Medial Chest: Pain Intensity: 7 Notes Mental Status: alert / awake / arousable and participated in evaluation Patient Amnestic to Procedure: Yes Nausea / Vomiting: adequately controlled Pain: adequately controlled Airway Patency, RR, SpO2: stable & adequate BP & HR: stable & adequate Hydration State: stable & adequate Anesthetic Complications: no major complications apparent and Pt Satisfied with anesthetic care Notes: Patient awake. Conversant. No issues or complications.
--- NOTE | 2018-10-15 14:34 | GI REPORT ---
Patient Name: Ban Barry Procedure Date: 10/15/2018 2:15 PM Date of : 1940 Admit Type: Inpatient Age: 78 Gender: Female Attending MD: Aurelio Ennis MD Procedure: Upper GI endoscopy Providers: Aurelio Ennis MD Referring MD: Bhanu Rueda M.d. Indications: Epigastric abdominal pain, Chest pain (non cardiac) Medicines: Monitored Anesthesia Care Complications: No immediate complications. Estimated blood loss: None. Estimated Blood Loss: Estimated blood loss: none. Procedure: Pre-Anesthesia Assessment: - Patient identification and proposed procedure were verified prior to the procedure by the physician, the nurse and the home attendant. The procedure was verified in the procedure room. After obtaining informed consent, the endoscope was passed under direct vision. Throughout the procedure, the patient's blood pressure, pulse, and oxygen saturations were monitored continuously. The Scope was introduced through the mouth, and advanced to the second part of duodenum. The upper GI endoscopy was accomplished without difficulty. The patient tolerated the procedure well. Procedure and risks explained to patient which include but not limited to medication reaction, bleeding, perforation, aspiration , and missed lesions. Judicious gas insufflation was used and gas removal done on the way out. The lumen was always visualized when advancing the scope. Prep was good. Washes and suctioning used as needed to get good visualization of the mucosa. Retroflexion to look at the fundus and cardia of the stomach and GE junction was done. Findings: The Z-line was irregular and was found 39 cm from the incisors. Abnormal motility was noted in the esophagus. There is spasticity of the esophageal body. A 1 cm hiatal hernia was present. Patchy moderate inflammation characterized by congestion (edema) and erythema was found in the entire examined stomach. The examined duodenum was normal. The exam was otherwise without abnormality. No path done because of IV heparin use. Impression: - Z-line irregular, 39 cm from the incisors. - Abnormal esophageal motility, suspicious for esophageal spasm. - 1 cm hiatal hernia. - Gastritis. - Normal examined duodenum. - The examination was otherwise normal. - No specimens collected. Recommendation: - Return patient to [facility] for ongoing care. - Esophageal spasm might be cause of chest pain but would do biliary workup starting with u/s RUQ. PPI bid for possible GERD induce spasm. Stool for H.pylori Ag. Aurelio Ennis M.D. Aurelio Ennis MD 10/15/2018 2:34:32 PM This report has been signed electronically. Note Initiated On: 10/15/2018 2:15 PM Number of Addenda: 0 I attest to the content of the Intraoperative Record and orders documented therein, exceptions below {[id number]}
--- NOTE | 2018-10-15 14:44 | Post Operative Brief Note ---
Immediate Post Op Note v1 Date of Surgery October 15, 2018 Pre & Post Diagnosis Operation Date: 10/15/18 08:25 Pre-Op Diagnosis: Atypical Chest Pain Post-Op Diagnosis: Gastritis Hiatal Hernia esophageal spasm Post op no complaints. Esophageal spasm may or may not explain chest pain. PPI bid in case of gerd induced spasm and to treat gastritis. Check stool for H.pylori. She is s/p pema but will check u/s of abdomen tomorrow to look for biliary pathology as sourc Procedure Operation Date: 10/15/18 08:25 Actual Procedures p Esophagogastroduodenoscopy - Aurelio Ennis Surgeon Aurelio Ennis [employer] Tee Perkins Estimated Blood Loss 0 Findings Consistent with Post-Op Diagnosis
[2018-10-15] MEDS: AMIODARONE 200 MG TAB PO SCH (20:17)
[2018-10-15] MEDS: APIXABAN 2.5 MG TAB PO SCH (20:17)
[2018-10-15] MEDS: CLOPIDOGREL BISULFATE 75 MG TAB PO SCH (20:19)
[2018-10-15] MEDS: PANTOprazole 40 MG TAB PO SCH (20:19)
[2018-10-15] MEDS: MAGNESIUM OXIDE 400 MG TAB PO SCH (20:20)
--- NOTE | 2018-10-15 23:36 | Hospitalist Progress Note ---
Date of Service October 15, 2018 Assessment & Plan (1) Chest pain: Patient continues to present with chest pain, she has H/O of RA. Her pain does appear to be ischemic, but her troponins are negative and repeat caths have been negative. Cardiology does not believe this to be cardiac in nature. Also doubts this to be pleuritc as she does not have typical features of pleurtic chest pain. Echo performed showed stable findings relative to previous echo with no change in her wall motion. Consulted GI for possible upper endoscopy given her likelihood that this may be esophageal spasm She takes chronic eliquis making VTE unlikely. Many of her symptoms do not fit with with aortic dissection. Plan - continue heparin infusion, standard dose, for now. But will hold for likely procedure D/W GI who will perform Upper GI today. Cardio does not believe patient warrrants a cath. (2) CAD (coronary artery disease): s/p cath in April 2018 with patent LAD stent and nonobstructive CAD otherwise. high-risk cath candidate due to elevated Creatinine/CKD. will monitor. Trops are negative (3) Left bundle branch block: chronic. (4) Hypothyroidism: TSH 1 month ago was compensated. Cont synthroid as is. (5) CKD (chronic kidney disease), stage III: creatinine has been about 2 for the last 3 months. BMP in am. (6) DM II (diabetes mellitus, type II), controlled: check BSGs ac/hs. novolog sliding scale. low threshold for lantus. (7) Pacemaker: interrogation requested by Dr. Alvarez. (8) HTN (hypertension): controlled. cont home meds. (9) HLD (hyperlipidemia): she is statin intolerant. (10) Morbid obesity: BMI 36 (11) Atrial flutter: h/o / paroxysmal pacemaker in place takes eliquis chronically; now on heparin infusion (12) Chronic combined systolic and diastolic CHF (congestive heart failure): currently compensated. watch volume status carefully. cont BB not HERMELINDO/ARB candidate due to CKD (13) DVT prophylaxis: heparin infusion Subjective Patient is a 78 yo female, she reports that she continues to have anterior, slightly to the left midsternum chest pain that is specific to the lower third OF THE CHEST. pATIENT CAN PINPOINT the pain. Patient reports that the pain is not pleuritic in nature, does not worsen with cough, or with change in position. She continues to reports feeling short of breath however.. denies recent travel. denies noncompliance with eliquis at home. Cardiovascular: as per Subjective / HPI, + chest pain, + chest pain at rest, + radiating jaw, neck or arm pain and + dyspnea; no orthopnea, no paroxysmal nocturnal dyspnea and no palpitations Physical Exam 2 Vital Signs (Past 24 Hours): Last Vital Signs Temp 36.7 C 10/15/18 19:15 Pulse 74 10/15/18 19:15 Resp 18 10/15/18 19:15 BP 135/70 10/15/18 19:15 Pulse Ox 95 10/15/18 19:15 Physical Exam: Constitutional: well developed, well nourished and + obese ; no acute distress and not ill appearing ENMT: external ear and nose normal, oropharynx normal Respiratory: normal respiratory effort, lungs clear to auscultation Cardiovascular: Rate/Rhythm: regular rate and regular rhythm Heart Sounds: normal S1, normal S2 and + murmur (2/6 LLSB) Vessels: posterior tibial pulses present and dorsalis pedis pulses present; no JVD Extremities: no edema Gastrointestinal (Abdomen): Percussion/Palpation: + abdomen tender (high epigastric region to palpation; no chest wall tenderness to palpation ) Musculoskeletal: no cyanosis or clubbing, extremities motor strength 5/5 Psychiatric: A+Ox3, euthymic affect _ (1) CAD (coronary artery disease) Associated angina: with unspecified angina Coronary Disease-Associated Artery /Lesion type: [place] artery [place] vs. transplanted heart: [place] heart Qualified Code(s): I25.119 - Atherosclerotic heart disease of [place] coronary artery with unspecified angina pectoris (2) Atrial flutter Atrial flutter type: unspecified Qualified Code(s): I48.92 - Unspecified atrial flutter (3) HLD (hyperlipidemia) Hyperlipidemia type: mixed hyperlipidemia Qualified Code(s): E78.2 - Mixed hyperlipidemia (4) Hypothyroidism Hypothyroidism type: acquired Qualified Code(s): E03.9 - Hypothyroidism, unspecified (5) DM II (diabetes mellitus, type II), controlled Chronic kidney disease stage: Diabetes mellitus complication detail: with nephropathy Diabetes mellitus complication status: with kidney complications 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
[2018-10-16] MEDS: INSULIN ASPART 100 UNITS/ML 3 ML PEN SC SCH ×5 (00:02→21:37)
[2018-10-16] MEDS: HYDROmorphone INJ 0.5 MG/0.5 ML SYR IV PRN ×2 (01:01→23:41)
[2018-10-16] MEDS: ONDANSETRON INJ 2 MG/ML 2 ML VIAL IV PRN ×2 (01:39→23:41)
[2018-10-16] MEDS: LEVOTHYROXINE SODIUM 75 MCG TABLET PO SCH (05:45)
--- NOTE | 2018-10-16 09:18 | Ultrasound Report ---
US abdomen complete CLINICAL HISTORY: Epigastric pain. COMPARISON STUDY: CT of the abdomen and pelvis December 26, 2013. FINDINGS: No hepatic lesions are identified although sensitivity is mildly diminished on this exam. T here is no biliary ductal dilatation status post cholecystectomy. The pancreatic body is normal. The head and tail are slightly obscured. Bilateral pleural effusions are incidentally noted. Size of the spleen is normal. Caliber of the abdominal aorta is normal. There is no hydronephrosis. Moderate keyana l cortical thinning is noted. IMPRESSION: 1. No significant abnormality within the abdomen by sonography. 2. Partially obscured pancreas. 3. Bilateral pleural effusions. Electronically signed by: Cali Jacobo M.D. 10/16/2018 9:17 AM
[2018-10-16] MEDS: AMLODIPINE BESYLATE 5 MG TAB PO SCH (09:47)
[2018-10-16] MEDS: POTASSIUM CHLORIDE 20 MEQ TABCR PO SCH (09:47)
[2018-10-16] MEDS: MULTIVITAMIN TAB PO SCH (09:47)
[2018-10-16] MEDS: PANTOprazole 40 MG TAB PO SCH ×2 (09:48→19:24)
[2018-10-16] MEDS: APIXABAN 2.5 MG TAB PO SCH ×2 (09:48→19:24)
[2018-10-16] MEDS: TOCOPHERYL, DL-ALPHA 400 UNITS CAP PO SCH (09:48)
[2018-10-16] MEDS ORDERED: ALUMINUM/MAGNESIUM SUSP 30 ML UDC PO PRN (16:08)
--- NOTE | 2018-10-16 16:08 | Gastroenterology Progress Note ---
Date of Service October 16, 2018 Assessment & Plan (1) Chest pain: non cardiac per cardiology. May be from esophageal spasm. U/S abdomen neg for biliary pathology esophageal spasm on EGD--continue PPI bid in case reflux causing it. When she has attack of pain I would like her to request antacids which I mentioned to her and will order it for prn. I want to see if pain improved with antacids. mild to mod gastritis--PPI as above. Stool for h.pylori Ag pending hx of GERD-- dysphagia---no evidence of stricture on EGD anticoagulation--Elliquis as outpt held, IV heparin currently. Subjective cc f/u chest pain HPI Pt states she vomited her supper last evening. She also had attack of chest pain last night at 0200 requiring pain meds.. She states tolerated breakfast and lunch and manageble chest discomfort today. Respiratory: no dyspnea Physical Exam 2 Vital Signs (Past 24 Hours): Last Vital Signs Temp 36.8 C 10/16/18 11:02 Pulse 69 10/16/18 11:02 Resp 18 10/16/18 11:02 BP 105/61 10/16/18 11:02 Pulse Ox 96 10/16/18 11:02 Constitutional: WD/WN, vitals as above Respiratory: normal respiratory effort, lungs clear to auscultation Cardiovascular: Heart Sounds: no murmur Gastrointestinal (Abdomen): normal bowel sounds, soft, nontender, no hepatosplenomegaly Psychiatric: A+Ox3, euthymic affect _ (1) Chest pain Chest pain type: unspecified Ischemic chest pain type: Qualified Code(s): R07.9 - Chest pain, unspecified
[2018-10-16] MEDS ORDERED: INSULIN ASPART 100 UNITS/ML 3 ML PEN SC SCH (16:30)
[2018-10-16] MEDS ORDERED: FUROSEMIDE 80 MG TAB PO SCH (17:00)
[2018-10-16] MEDS: CLOPIDOGREL BISULFATE 75 MG TAB PO SCH (19:24)
[2018-10-16] MEDS: AMIODARONE 200 MG TAB PO SCH (19:24)
[2018-10-16] MEDS: MAGNESIUM OXIDE 400 MG TAB PO SCH (19:25)
--- NOTE | 2018-10-16 21:35 | Hospitalist Progress Note ---
Date of Service October 16, 2018 Assessment & Plan (1) Chest pain: Patient continues to present with chest pain, she has H/O of RA. Her pain does appear to be ischemic, but her troponins are negative and repeat caths have been negative. Cardiology does not believe this to be cardiac in nature. Also doubts this to be pleuritc as she does not have typical features of pleurtic chest pain. Echo performed showed stable findings relative to previous echo with no change in her wall motion. On 10/15, consulted GI for possible upper endoscopy given her likelihood that this may be esophageal spasm. Showed signs of gastritis, which may explain possible esophageal spasm. She takes chronic eliquis making VTE unlikely. Many of her symptoms do not fit with with aortic dissection. Plan - Heparin was stopped for EGD. After EGD resumed eliquis, Cardio does not believe patient warrrants a cath at this time. Especially as patient is improving clinically. (2) CAD (coronary artery disease): s/p cath in April 2018 with patent LAD stent and nonobstructive CAD otherwise. high-risk cath candidate due to elevated Creatinine/CKD. will monitor. Trops are negative 5x negative. (3) Left bundle branch block: chronic. (4) Hypothyroidism: TSH 1 month ago was compensated. Cont synthroid as is. (5) CKD (chronic kidney disease), stage III: creatinine has been about 2 for the last 3 months. creatinine at 1.9 (6) DM II (diabetes mellitus, type II), controlled: check BSGs ac/hs. novolog sliding scale. low threshold for lantus. (7) Pacemaker: interrogation requested by Dr. Alvarez. This was completed on 10/17 (8) HTN (hypertension): controlled. cont home meds. (9) HLD (hyperlipidemia): she is statin intolerant. (10) Morbid obesity: BMI 36 (11) Atrial flutter: h/o / paroxysmal pacemaker in place takes eliquis chronically; resumed on 10/15 after EGD (12) Chronic combined systolic and diastolic CHF (congestive heart failure): currently compensated. watch volume status carefully. cont BB not HERMELINDO/ARB candidate due to CKD (13) DVT prophylaxis: Eliquis Subjective Patient is a 78 yo female, she reports that she continues to have anterior, slightly to the left midsternum chest pain that is specific to the lower third OF THE CHEST. Patient reports feeling better today. She states her pain has improved. It is not as severe as it was yesterday. denies recent travel. denies noncompliance with eliquis at home. Constitutional: no sweats and no malaise Eyes: no eye pain and no loss of peripheral vision Ear, Nose, Mouth, Throat: no ear pain and no tinnitus Respiratory: no pain on inspiration, no pain with cough, no stopping breathing during sleep and no wheezing Cardiovascular: as per Subjective / HPI, + chest pain, + chest pain at rest, + radiating jaw, neck or arm pain and + dyspnea; no orthopnea, no paroxysmal nocturnal dyspnea and no palpitations Gastrointestinal: no bloating, no nausea and no hematemesis Musculoskeletal: no radicular pain and no deformity Integumentary: no rash Neurologic: no falls and no paralysis Psychiatric: no hopelessness Endocrine: no polydipsia Physical Exam 2 Vital Signs (Past 24 Hours): Last Vital Signs Temp 37.1 C 10/16/18 20:00 Pulse 76 10/16/18 20:00 Resp 18 10/16/18 20:00 BP 117/69 10/16/18 20:00 Pulse Ox 92 10/16/18 20:00 Physical Exam: Constitutional: well developed, well nourished and + obese ; no acute distress and not ill appearing ENMT: external ear and nose normal, oropharynx normal Respiratory: normal respiratory effort, lungs clear to auscultation Cardiovascular: Rate/Rhythm: regular rate and regular rhythm Heart Sounds: normal S1, normal S2 and + murmur (2/6 LLSB) Vessels: posterior tibial pulses present and dorsalis pedis pulses present; no JVD Extremities: no edema Gastrointestinal (Abdomen): Percussion/Palpation: + abdomen tender (high epigastric region to palpation; no chest wall tenderness to palpation ) Musculoskeletal: no cyanosis or clubbing, extremities motor strength 5/5 Psychiatric: A+Ox3, euthymic affect _ (1) CAD (coronary artery disease) Associated angina: with unspecified angina Coronary Disease-Associated Artery /Lesion type: [place] artery [place] vs. transplanted heart: [place] heart Qualified Code(s): I25.119 - Atherosclerotic heart disease of [place] coronary artery with unspecified angina pectoris (2) Atrial flutter Atrial flutter type: unspecified Qualified Code(s): I48.92 - Unspecified atrial flutter (3) HLD (hyperlipidemia) Hyperlipidemia type: mixed hyperlipidemia Qualified Code(s): E78.2 - Mixed hyperlipidemia (4) Hypothyroidism Hypothyroidism type: acquired Qualified Code(s): E03.9 - Hypothyroidism, unspecified (5) DM II (diabetes mellitus, type II), controlled Chronic kidney disease stage: Diabetes mellitus complication detail: with nephropathy Diabetes mellitus complication status: with kidney complications Diabetes mellitus 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
--- NOTE | 2018-10-17 01:03 | Progress Note ---
Date of Service October 17, 2018 1:29 am Received text page at 1217 saying the patient has chest pain. Discussed the case further with patient's nurse.... - This evening, patient has received half a milligram of Dilaudid as well as Maalox without relief thus far. - EKG shows NSR with a known left bundle branch block. - Nurse says that although the patient was not complaining of shortness of breath, a check of her vitals noted a pulse ox of 75% on room air with good waveform. This improved to 94% on 4 L nasal cannula. Brief chart review: I recall admitting her on 14 October. Follow-up cardiology note mentions her extensive cardiac history but they do not believe her chest pain is related to cardiac disease. GI was consulted she underwent an EGD which was suggestive of esophageal spasm, however it does not seem that her pain is entirely related to spasm. Saw patient at bedside: She is complaining of left-sided crushing chest pain that is radiating down into her left arm. She denies any shortness of breath. Exam: Patient appears uncomfortable but not in overt distress. +S1S2 RRR, 2/6 BARRY. Clear to auscultation throughout. A/P: - Heart rate and blood pressure are stable. EKG is nondiagnostic given the known LBBB. - No apparent improvement with antacid or the dose of Dilaudid which helped yesterday. - The drop in room SpO2 along with acute pain is concerning for PE. Will obtain a CTA of the chest. - Her creatinine remains elevated at 1.9. Will provide a 1 L normal saline bolus following her CTA. - We will check another troponin now. - As for pain, will try a combination of another dose of Dilaudid as well as a single dose of sublingual nitroglycerin. - Discussed case with Dr. Wright who agrees with this above plan. Valentino Lagos MD PGY2 overnight call Physical Exam 2 Vital Signs (Past 24 Hours): Last Vital Signs Temp 37.1 C 10/16/18 23:13 Pulse 99 H 10/17/18 00:21 Resp 22 10/17/18 00:21 BP 153/87 H 10/17/18 00:21 Pulse Ox 94 10/17/18 00:32
[2018-10-17] MEDS ORDERED: HYDROmorphone INJ 0.5 MG/0.5 ML SYR IV STA ×2 (01:08→02:51)
[2018-10-17] MEDS ORDERED: NITROGLYCERIN SL 0.4 MG/TAB TAB SL STA (01:08)
[2018-10-17] MEDS ORDERED: NITROGLYCERIN SL 0.4 MG/TAB TAB ONE (01:10)
[2018-10-17] MEDS ORDERED: SODIUM CHLORIDE 0.9% 1000ML 1,000 ML IV SCH (01:15)
[2018-10-17] MEDS ORDERED: OPTIRAY 320 125ml IV PRN (01:54)
[2018-10-17] MEDS ORDERED: METOPROLOL TARTRATE 1 MG/ML VIAL IV PRN (02:47)
[2018-10-17] MEDS ORDERED: NITROGLYCERIN 2% OINTMENT 30GM TUBE EXT ONE (02:51)
[2018-10-17] MEDS ORDERED: METOPROLOL TARTRATE 1 MG/ML VIAL IV ONE (02:55)
[2018-10-17] MEDS ORDERED: NITROGLYCERIN 2% OINTMENT 30GM TUBE ONE (02:56)
[2018-10-17] MEDS ORDERED: ALUMINUM/MAGNESIUM SUSP 18 ML, LIDOCAINE HCL VISCOUS 2% 6 ML, BARCODE IDENTIFIER 1 EA PO ONE (03:30)
[2018-10-17] MEDS: NITROGLYCERIN/D5W 100MCG/ML 250 ML IV SCH ×2 (03:45→21:45)
[2018-10-17] MEDS ORDERED: FUROSEMIDE 40 MG in SYRINGE 0 ML IV ONE (03:45)
--- NOTE | 2018-10-17 04:45 | Cardiology Progress Note ---
Date of Service October 17, 2018 Assessment & Plan (1) Chest pain: By the patient's report the symptoms are similar but more severe than that which she experienced leading up to her admission. This is certainly concerning for cardiac ischemia especially in the setting of known coronary disease. She did have elevated biomarkers. This could be explained by an element of hypoxia which was documented at the time of her complaint. However, she could also have an acute coronary syndrome. Her left bundle branch block at baseline precludes use of the EKG for diagnostic purposes. She is also known to have regional wall motion abnormalities and an abnormal echocardiogram at baseline. Think we will need to base any additional evaluation on her symptoms. She does appear to have had relief of her symptoms currently with a nitroglycerin infusion. With continued elevation of her biomarkers, she will likely need some evaluation of her coronaries. I have asked him to hold her Eliquis which is due a couple of hours in order to facilitate angiography later today if necessary. We can start her on heparin infusion around that time. We will need to continue to monitor symptoms over the next few hours and with recurrence consider more urgent evaluation. (2) CAD (coronary artery disease): No elevation in her biomarkers at the time of her most recent catheterization in April of 2018. (3) Cardiomyopathy: She has a long-standing cardiomyopathy, presumably ischemic in etiology, with mild left ventricular dysfunction. That does not seem to have changed. Beta-estephania had been held leading up to her admission. She was administered some metoprolol this evening and should be started on scheduled carvedilol or metoprolol succinate.. (4) Congestive heart failure: She did not report overt dyspnea associated with her symptoms this evening. However, she was noted to be hypoxic and started on supplemental oxygen. She does have pleural effusions and is scheduled for pulmonary evaluation later this morning. She was given an extra dose of furosemide this evening and She will continue on her scheduled throw some I would (5) Pacemaker: Her pacemaker was implanted in April of this year, it was checked here this morning and is working very well as noted above. Battery voltage is excellent, she is pacing most of the time. (6) Atrial flutter: She has a history of atrial flutter and was on Eliquis prior to admission for that (as well as her history of DVT), and should remain on it. Pacemaker interrogation shows only 20 minutes of atrial flutter with a controlled ventricular response is May of this year, that occurred on October 08. She is on amiodarone and that appears to be reasonably successful trolling her rhythm and rate and I would continue the current dose. (7) Aortic stenosis, mild: She has a known history of aortic stenosis which has been variably characterizes mild or moderate. This is not appear to have changed appreciably on her current echocardiogram and is not responsible for her current symptoms. Present on Admission?: Yes Subjective I was called to evaluate this patient with persistent symptoms of chest and arm discomfort. Seems that the patient was initially admitted with similar symptoms at relatively intermittent in nature. Evaluation this hospital included serial cardiac biomarkers which were normal and a recent EGD suggestive of esophageal spasm. According to the patient, she began to experience symptoms of discomfort around 9 p.m.. She notified the nursing staff around midnight. At that time she was also noted to be hypoxic. Her symptoms involved a sense of fairly localized left pectoral discomfort which occasionally radiated to the left arm. She described this as an aching sensation. She also describes symptoms radiating up into the neck. She states the symptoms were similar to those she experienced prior to presentation, but this was more severe. She was initially administered some antacid and narcotic without relief. An EKG revealed her chronic left bundle branch block. Due to the persistent nature of her symptoms she was subsequently administered intravenous beta-estephania and topical nitroglycerin. She continued to have symptoms and was started on a nitroglycerin infusion. At the time my evaluation the patient states that her symptoms have resolved with the infusion. She appears to be feeling much better at this time. Physical Exam 2 Vital Signs (Past 24 Hours): Last Vital Signs Temp 36.5 C 10/17/18 02:47 Pulse 71 10/17/18 04:33 Resp 18 10/17/18 04:26 BP 112/71 10/17/18 04:33 Pulse Ox 90 10/17/18 04:33 Physical Exam: She is alert and oriented x3. She appeared comfortable. Mood affect appear normal. She answered all questions appropriately. HEENT: Sclerae are anicteric. Pupils are equal and reactive to light and accommodation. Extraocular movements were intact. Neuro: Cranial nerves intact Lungs: Apices were clear. No expiratory wheezing. Cardiac: The rhythm was regular. S1 and S2 were normal. Crescendo systolic murmur appreciated. Abdomen: The abdomen was soft and nontender. Extremities: Patient has bilateral radial pulses with the right being more prominent than the left. There is no evidence cyanosis or clubbing. There was no evidence of significant peripheral edema bilaterally. Results & Data Laboratory Results Abnormal Lab Results 10/16/18 10/16/18 10/16/18 05:41 08:47 08:47 WBC 8.24 RBC 3.79 L Hgb 12.8 Hct 38.9 MCV 102.6 H MCH 33.8 MCHC 32.9 RDW Std Deviation 51.3 H RDW Coeff of Manuela 13.8 Plt Count 264 MPV 10.6 H Immature Gran % (Auto) Neut % (Auto) Lymph % (Auto) [place] % (Auto) Eos % (Auto) Baso % (Auto) Immature Gran # (Auto) Neut # (Auto) Lymph # (Auto) [place] # (Auto) Eos # (Auto) Baso # (Auto) Sodium 138 Potassium 4.2 Chloride 102 Carbon Dioxide 31 Anion Gap 6.0 BUN 25 H Creatinine 1.94 H D Est Cr Clr Drug Dosing 27.2 Est GFR ( Amer) 27.8 Est GFR (Non-Af Amer) 24.0 BUN/Creatinine Ratio 12.6 Glucose 132 H POC Glucose 165 H Calcium 9.1 Total Bilirubin 0.6 AST 30 ALT 32 Alkaline Phosphatase 146 H Troponin I Total Protein 7.0 Albumin 3.0 L Globulin 4.0 Albumin/Globulin Ratio 0.8 L Specimen Hemolysis 10/16/18 10/16/18 10/16/18 10:21 16:27 21:08 WBC RBC Hgb Hct MCV MCH MCHC RDW Std Deviation RDW Coeff of Manuela Plt Count MPV Immature Gran % (Auto) Neut % (Auto) Lymph % (Auto) [place] % (Auto) Eos % (Auto) Baso % (Auto) Immature Gran # (Auto) Neut # (Auto) Lymph # (Auto) [place] # (Auto) Eos # (Auto) Baso # (Auto) Sodium Potassium Chloride Carbon Dioxide Anion Gap BUN Creatinine Est Cr Clr Drug Dosing Est GFR ( Amer) Est GFR (Non-Af Amer) BUN/Creatinine Ratio Glucose POC Glucose 121 H 135 H 172 H Calcium Total Bilirubin AST ALT Alkaline Phosphatase Troponin I Total Protein Albumin Globulin Albumin/Globulin Ratio Specimen Hemolysis 10/17/18 10/17/18 01:17 03:58 WBC 11.33 H RBC 3.75 L Hgb 12.5 Hct 38.5 MCV 102.7 H MCH 33.3 MCHC 32.5 RDW Std Deviation 51.4 H RDW Coeff of Manuela 13.7 Plt Count 277 MPV 10.8 H Immature Gran % (Auto) 0.3 Neut % (Auto) 79.8 Lymph % (Auto) 11.2 [place] % (Auto) 7.6 Eos % (Auto) 0.9 Baso % (Auto) 0.2 Immature Gran # (Auto) 0.03 H Neut # (Auto) 9.05 H Lymph # (Auto) 1.27 [place] # (Auto) 0.86 H Eos # (Auto) 0.10 Baso # (Auto) 0.02 Sodium Potassium Chloride Carbon Dioxide Anion Gap BUN Creatinine Est Cr Clr Drug Dosing Est GFR ( Amer) Est GFR (Non-Af Amer) BUN/Creatinine Ratio Glucose POC Glucose Calcium Total Bilirubin AST ALT Alkaline Phosphatase Troponin I 0.829 H* Total Protein Albumin Globulin Albumin/Globulin Ratio Specimen Hemolysis Diagnostic Findings Patient underwent CT pulmonary embolus protocol which did not demonstrate any evidence acute pulmonary embolus. She was noted to have bilateral pleural effusions. No evidence of aortic dissection on the images obtained. ECG Indication: chest pain Rhythm: normal sinus Findings: + LBBB Change: no significant change _ (1) Chest pain Chest pain type: unspecified Ischemic chest pain type: Qualified Code(s): R07.9 - Chest pain, unspecified (2) CAD (coronary artery disease) Coronary Disease-Associated Artery/Lesion type: [place] artery [place] vs. transplanted heart: [place] heart Associated angina: with unspecified angina Qualified Code(s): I25.119 - Atherosclerotic heart disease of [place] coronary artery with unspecified angina pectoris
[2018-10-17] MEDS ORDERED: ICU PROTOCOL FOR HYPERGLYCEMIA PRN (05:29)
[2018-10-17] MEDS ORDERED: HEPARIN STANDARD DEXTROSE 25,000 UNITS/500 ML IV SCH (06:22)
[2018-10-17] MEDS ORDERED: HEPARIN IV BOLUS 6,000 UNITS in SYRINGE 0 ML IV ONE (06:22)
[2018-10-17] MEDS ORDERED: ALBUMIN 25% 50 ML with FUROSEMIDE 40 MG IV ONE (06:30)
[2018-10-17] MEDS: LEVOTHYROXINE SODIUM 75 MCG TABLET PO SCH (06:44)
--- NOTE | 2018-10-17 06:58 | Critical Care Consultation ---
Date of Consultation October 17, 2018 Assessment & Plan (1) Admitted to intensive care unit: Reason Critically Ill: 78-year-old female with worsening chest pain concerning for anginal equivalent in the patient with previous history of coronary artery disease. Requiring nitroglycerin drip as well as heparin drip. Acute pulmonary edema with significant pleural effusions and compressive atelectasis. NEURO - * CAM ICU: NEGATIVE * Pain control: Fentanyl PRN CARDIAC/VASCULAR - * Actue STEMI w/ anginal equivalent: * Elevated troponin - will continue to trend. * Initially treated w/ BB, GI cocktail, and SL nitro. * Now requiring Nitro gtt. * Trop continues to climb --> agree with Heparin gtt. * Review of images shows c/o acute pulmonary edema w/ moderate bilateral pleural effusions: * Patient had apparently not been on her regularly scheduled Lasix (80mg BID) since admission on 10/13. * Received one 80mg dose last evening followed by one, 40mg dose this AM. * Will add an additional 40mg IV as well as dose of albumin. * Patient will likely benefit from thoracentesis. * Monitor on telemetry. RESPIRATORY - * Hypoxia: * Apparently this only started this evening. * No respiratory distress at this time. * CT consistent w/ moderate pulmonary edema w/ significant pleural effusions. * Will diurese. * Will add CPAP for slight PPV. * Patient would likely benefit from thoracentesis. GI/NUTRITION - * Keep NPO until decided on need for interventions today. * Heart healthy diet otherwise. * Prophylaxis: Protonix RENAL/LYTES - * CKDIII * Hold IVR at this point while volume overloaded. * Can tolerate PO intake after. - * Carlton in place - Strict I&Os. ENDO - * DMII: * BSGs per unit protocol. ISS --> gtt per unit policy. * Hypothyroidism: * Continue home Levothyroxine dosing. HEME - * Stable H&H: * Will trend on the patient on Eloquis/Plavix and now Heparin gtt. * Heparin gtt. ID - * No c/o infections at this point. LINES/IV ACCESS - * PIVs x2 * Carlton DVT PROPHYLAXIS - * Heparin gtt * SCDs I have personally spent 60 minutes of critical care time in the direct management of this patient. This is a life/limb threatening event. This includes time spent evaluating patient, direct bedside care, chart review, placing orders, interpretation of diagnostic studies, discussion with consultants, patient, and family members, as well as other required patient management activities. This time is exclusive of all separately billable procedures, and teaching time and separate from and in addition to any other critical care service time. Thank you for allowing us to participate in the care of this patient. Please refer to my attending physician's documentation for any further recommendations. The patient was seen, examined independently, agree with assessment and plan of my colleagues at [facility]. This is 78-year-old female with history of extensive cardiac disease, including CHF, coronary artery disease, status post stent placement a year ago, history of A. fib, has been maintained on Eliquis, history of a pacemaker in place, presented to the hospital with abdominal pain and chest pain, the patient was evaluated for esophageal spasm, the patient was started on PPI twice daily, the patient underwent upper GI which showed esophageal spasm. However the patient continued to have chest pain, and she did have also elevation in her troponin. The patient was admitted to the ICU for further management, was found to be in pulmonary edema, a chest CT was done for ruling out PE, the patient did have in fact bilateral pleural effusion as well as pulmonary vascular congestion. The patient was taken to the [facility] and underwent a PCI with Dr. Sanchez and Dr. Bateman, underwent NATY to LAD, the patient had a right radial approach. When I saw the patient, she did not like to stay on the BiPAP, we took her off the BiPAP and she stayed on the nasal cannula oxygen her O2 sat was 92% and she was much more comfortable. The patient did not have any chest pain at the moment, her symptoms resolved, no shortness of breath, no abdominal pain, no nausea or vomiting, no pain at her right wrist area. Her past medical history was reviewed extensively, the patient is non-smoker in the past, and her family history also significant for coronary artery disease in both parents. Her physical exam revealed elderly female does not appear to be in distress, S1- S2 regular rate and rhythm, she is not A. fib, lungs with distant breath sounds bilaterally, abdomen is benign, she has edema in the periphery. Right radial area with minimal blood tracing, there is no induration or hematoma. Her labs were reviewed as well which showed elevated troponin from earlier. The rest of her labs otherwise were unremarkable. CAT scan of the chest which I reviewed personally showed bilateral pleural effusion and groundglass opacities consistent with pulmonary vascular congestion and CHF. Impression: 1. Coronary artery disease status post PCI, with non-ST elevation LA NATY to the LAD. 2. CHF with bilateral pleural effusion and pulmonary vascular congestion responding to Lasix IV, her urine output was 2 L after the second dose of IV Lasix. 3. History of A. fib, pacemaker in place, has been maintained on Eliquis. 4. Diabetes. 5. History of CHF, ejection fraction is 45%. Plan: 1. Continue with diuresis with Lasix 80 mg IV every 12 hours. 2. Continue with antiplatelet therapy post PCI. 3. Appreciate Dr. Sanchez and Dr. Bateman input. 4. I will continue with PPI as part of her treatment for esophageal spasm. 5. The patient came off the nitro drip. 6. If the pleural fluid continue to persist and become refractory to diuresis, it can be tapped. 7. The patient is off the heparin drip and started on antiplatelet therapy. 8. I will discuss with cardiology to start Eliquis as well. 9. We will monitor in the ICU. 10. Oral intake. 11. We will use nasal cannula for oxygenation, we can use also OptiFlow if needed. Patient could not tolerate positive pressure ventilation. 12. Discussed with cardiology, with the staff at the bedside. Critical care time spent with the patient was 45 minutes. (2) NSTEMI (non-ST elevated myocardial infarction): (3) Anginal equivalent: (4) Aortic stenosis, mild: (5) Acute pulmonary edema with congestive heart failure: (6) CAD (coronary artery disease): (7) Left bundle branch block: (8) Hypothyroid: (9) CKD (chronic kidney disease), stage III: (10) Pleural effusion due to CHF (congestive heart failure): History of Present Illness Attending Physician: Bhanu Rueda Patient is a 78-year-old female with a significant past medical history of coronary artery disease status post PTCI with NATY x1 in October 2016. 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 The patient has a pacemaker for tachybradycardia syndrome as well. She was admitted to this facility on 10/13 for persistent LEFT-sided chest discomfort. Initially, her troponins have been negative. She had been evaluated from a GI standpoint and there was concern for esophageal spasm. She was placed on PPIs with minimal relief of symptoms. This evening, the patient reports a changing in her chest pain. She reports that it is more localized to the LEFT-sided chest with radiation to the left- sided arm. She reports the pain was unbearable earlier this evening. She did receive 1 sublingual nitroglycerin which she reports relieved her pain completely for a few minutes. She reports that since that time she has had continued pain which is not been relieved with other interventions. The patient was started on a nitroglycerin drip and it was felt best for transfer to the ICU for titration of nitroglycerin drip. On presentation to the ICU, the patient is awake, alert, and oriented. She complains of 3/10 chest discomfort to the left-sided chest. The pain is not reproducible. She reports that her pain is not pleuritic. She has no nausea or vomiting. She reports some difficulty with deep inspiration. She denies any shortness of breath, however. Patient denies any headaches, dizziness, lightheadedness, nausea, vomiting, abdominal discomfort, or peripheral edema. Allergies Allergy/AdvReac Type Severity Reaction Status Date / Time adhesive Allergy Unknown REDNESS Verified 10/14/18 02:01 AND IRRITATION FROM PAIN PATCH, TAPE latex Allergy Unknown ALLERGIC Verified 10/14/18 02:01 TO LATEX TAPE/RASH/ITCHING morphine Allergy Unknown swelling Verified 10/14/18 02:01 nausea vomiting olmesartan Allergy Unknown UNKNOWN Verified 10/14/18 02:01 exenatide [From Byetta] Allergy Unknown Verified 10/14/18 02:01 glyburide Allergy Unknown Verified 10/14/18 02:01 metformin Allergy Unknown Verified 10/14/18 02:01 sitagliptin [From Januvia] Allergy Unknown Verified 10/14/18 02:01 aspirin AdvReac Mild GI SYMPTOMS Verified 10/14/18 02:01 ezetimibe AdvReac Mild MUSCLE Verified 10/14/18 02:01 ACHES lisinopril AdvReac Unknown LIGHTHEADED Verified 10/14/18 02:01 AND DIZZY pioglitazone AdvReac Unknown DIARRHEA Verified 10/14/18 02:01 NAUSEA Niuzusr-Bqs-Ktr Reductase AdvReac Unknown myalgias Verified 10/14/18 02:01 Inhibitor and weakness Home Medications Home Medications Medication Instructions Recorded Confirmed Type amiodarone 200 mg PO QPM 06/17/18 10/14/18 History amlodipine 5 mg PO QAM 06/17/18 10/14/18 History apixaban [Eliquis] 5 mg PO BID 06/17/18 10/14/18 History clopidogrel [Plavix] 75 mg PO QPM 06/17/18 10/14/18 History garlic 1 tab PO QAM 06/17/18 10/14/18 History insulin asp prt-insulin aspart 0 units SUBCUT AMPM 06/17/18 10/14/18 History [Novolog Mix 70-30 U-100 Insuln] levothyroxine 75 mcg PO QAM 06/17/18 10/14/18 History magnesium oxide 400 mg PO QPM 06/17/18 10/14/18 History multivitamin [Multiple Vitamins] 1 tab PO DAILY 06/17/18 10/14/18 History potassium chloride 20 meq PO QAM 06/17/18 10/14/18 History ranitidine HCl 150 mg PO DAILY PRN 06/17/18 10/14/18 History triamcinolone acetonide 1 applic TOPICAL BID PRN 06/17/18 10/14/18 History vitamin E 400 unit PO QAM 06/17/18 10/14/18 History albuterol sulfate [Ventolin HFA] 2 puff INHALATION QID PRN 10/14/18 10/14/18 History furosemide 80 mg PO AMPM 10/14/18 10/14/18 History isosorbide mononitrate 30 mg PO QAM 10/14/18 10/14/18 History labetalol 75 mg PO QPM 10/14/18 10/14/18 History Patient History Medical History Left bundle branch block Hypothyroid CKD (chronic kidney disease), stage III DM II (diabetes mellitus, type II), controlled Bilateral carotid artery stenosis Congestive heart failure 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 Atrial flutter Morbid obesity HLD (hyperlipidemia) HTN (hypertension) Surgical History Pacemaker Presence of stent in LAD coronary artery Family History Other Pacemaker Social History Current Living Situation: Alone Other Information That Helps Us Care for You: No Feels Safe at Home: Yes Safety Concerns: Feels Safe At This Time Smoking Status: Never smoker Second Hand Exposure: No Hx Alcohol Use: No Hx Substance Use: No Beliefs That Will Affect Care: None Communication Ability: Effective Review of Systems A complete 10 point review of systems was reviewed with the patient with pertinent positives and negatives as per history of present illness. All else were negative. Physical Exam 2 Vital Signs (Past 24 Hours): Last Vital Signs Temp 36.6 C 10/17/18 05:00 Pulse 77 10/17/18 06:01 Resp 18 10/17/18 06:01 BP 125/69 10/17/18 06:01 Pulse Ox 93 10/17/18 06:01 Physical Exam: VITAL SIGNS - Vital signs and nursing notes were reviewed. GENERAL - 78-year-old female appearing her stated age who is in no acute distress. Communicates well with provider and answers questions appropriately. HEAD - NC/AT. EYES - PERRL with EOMI bilaterally. Sclera anicteric. Palpebral conjunctiva pink and moist with no injection noted. EARS - No deformities of external structures noted on gross examination bilaterally. NOSE - Midline and without cyanosis. No epistaxis or purulent drainage noted. Septum midline without deviation or septal hematoma noted. MOUTH/OROPHARYNX - Without perioral cyanosis. Buccal mucosa pink and moist and without leukoplakia. NECK - Neck with FROM. Supple to palpation. LUNGS - Chest wall symmetric without accessory muscle use, intercostals retractions, or central cyanosis. Normal vesicular breath sounds CTA B/L. Coarse breath sounds bilaterally. CARDIAC - RRR with S1/S2. No murmur, rubs, or gallops appreciated. No reproducible tenderness to palpation appreciated over the anterior chest wall. ABDOMEN - Abdominal contour obese without pulsations or visible masses. BS normoactive all four quadrants. No tenderness, palpable masses, hepatosplenomegaly, or ascites noted. EXTREMITIES - No clubbing or peripheral cyanosis. No pretibial edema present. +3 /5 radial and dorsalis pedis pulses palpated throughout. +5/5 strength noted in UE/LE bilaterally. NEUROLOGIC - Cranial nerves II through XII grossly intact. Sensory intact to light touch throughout. PSYCH - A&Ox3 and cooperates fully with examiner. Pt is very pleasant and interacts well with examiner. Results & Data Diagnostic Findings Radiology imaging and reports were reviewed by myself. Radiologist's interpretation per [facility] are as follows: CTA CHEST: Large right and moderate left pleural effusions with atelectasis. Interstital and alveolar pulmonary edema. Peribronchial thickening No PE. Reflux of contrast to the IVC and hepatic veins indicates right heart dysfunction. Cardiomegaly without pericardial effusion. _ (1) CAD (coronary artery disease) Associated angina: with unspecified angina Coronary Disease-Associated Artery /Lesion type: [place] artery [place] vs. transplanted heart: [place] heart Qualified Code(s): I25.119 - Atherosclerotic heart disease of [place] coronary artery with unspecified angina pectoris
--- NOTE | 2018-10-17 07:37 | CT Scan Report ---
CT angio chest PE protocol CLINICAL HISTORY: 78 years-old Female presenting with chest pain, clinical concern for pulmonary embo cary. TECHNIQUE: Multidetector CT angiography of the chest was performed after administration of intravenou s contrast. 3-D volumetric and/or maximum intensity projection (MIP) images were subsequently reconst ructed for review. IV contrast: 93 mL of Optiray 320. A dose lowering technique was used consistent w ith the principles of ALARA (as low as reasonably achievable). COMPARISON: Noncontrast CT chest from 10/14/2018. CT DOSE (mGy.cm): The estimated cumulative dose is 349.02 mGy.cm. FINDINGS: [facility] topogram: Left subclavian pacer with leads to the right atrium and right ventricular apex. Nume wang overlying external leads. Mild cardiomegaly with pulmonary vascular prominence. Cholecystectomy clips. Pulmonary vasculature: The study is adequate for assessment of the pulmonary vascular tree. No filling defect within the pul monary arteries to suggest embolus. Main pulmonary artery top normal in size. No flattening of the in terventricular septum. No intracardiac filling defect. Reflux of contrast into the IVC and hepatic ve ins. This likely indicates elevated right heart pressure. Remaining chest: On soft tissue windows, normal thyroid and thoracic inlet. No axillary, supraclavicular, hilar, or me diastinal lymphadenopathy. Atherosclerosis of the aorta. Multichamber enlargement of the heart. Coron [place] artery and aortic valve calcification. Moderate right and hyxvd-ao-migejrpo left pleural effusion s, which are simple appearing. Upper abdomen normal. On lung windows, no pneumothorax. Central airways patent. Extensive bronchial wall thickening. Pulmon [place] arteries are mildly enlarged relative to adjacent bronchi. Pronounced smooth interlobular septal thickening. Extensive volume loss and dependent consolidation in the lower lobes consistent with pass brian atelectasis. Additionally extensive diffuse patchy groundglass opacities most severe in the left lung but affecting all 5 lobes. On bone windows, degenerative changes of the spine. IMPRESSION: 1. No evidence of pulmonary embolus. 2. Findings consistent with significant interval worsening of pulmonary edema in the setting of card iomegaly and worsening bilateral pleural effusions. Electronically signed by: Kin Vail M.D. 10/17/2018 7:36 AM
--- NOTE | 2018-10-17 08:13 | Anesthesiology Progress Note ---
Date of Service October 17, 2018 Anesthesia Post Procedure Vital Signs Vital Signs: Temp Pulse Pulse Resp BP BP BP 10/17/18 06:01 77 18 125/69 10/17/18 05:00 36.6 C 69 18 143/74 H 10/17/18 04:46 66 120/69 10/17/18 04:41 62 124/70 10/17/18 04:33 71 112/71 10/17/18 04:26 69 18 109/67 10/17/18 04:22 78 124/68 10/17/18 04:14 80 16 124/68 10/17/18 04:09 74 17 128/60 10/17/18 04:06 72 117/69 10/17/18 04:00 73 18 121/71 10/17/18 03:57 72 128/75 10/17/18 03:55 71 17 132/79 10/17/18 03:53 75 132/67 10/17/18 03:51 132/76 10/17/18 03:29 139/86 10/17/18 03:21 77 20 144/81 H 10/17/18 03:18 132/78 10/17/18 03:14 75 146/78 H 10/17/18 03:08 146/78 H 10/17/18 03:02 89 158/87 H 10/17/18 02:47 36.5 C 100 H 24 173/96 H 10/17/18 00:32 10/17/18 00:21 99 H 22 153/87 H 10/16/18 23:13 37.1 C 84 18 134/71 10/16/18 20:00 37.1 C 76 18 117/69 10/16/18 15:40 36.9 C 71 20 112/60 10/16/18 11:02 36.8 C 69 18 105/61 Pulse Ox 10/17/18 06:01 93 10/17/18 05:00 95 10/17/18 04:46 90 10/17/18 04:41 10/17/18 04:33 90 10/17/18 04:26 91 10/17/18 04:22 10/17/18 04:14 91 10/17/18 04:09 90 10/17/18 04:06 10/17/18 04:00 10/17/18 03:57 10/17/18 03:55 91 10/17/18 03:53 10/17/18 03:51 10/17/18 03:29 10/17/18 03:21 91 10/17/18 03:18 91 10/17/18 03:14 10/17/18 03:08 10/17/18 03:02 91 10/17/18 02:47 90 10/17/18 00:32 94 10/17/18 00:21 75 L 10/16/18 23:13 90 10/16/18 20:00 92 10/16/18 15:40 91 10/16/18 11:02 96 Pain Intensity Medial Chest: Pain Intensity: 4 Notes Mental Status: alert / awake / arousable Patient Amnestic to Procedure: Yes Nausea / Vomiting: adequately controlled Pain: adequately controlled Airway Patency, RR, SpO2: stable & adequate BP & HR: stable & adequate Hydration State: stable & adequate Anesthetic Complications: no major complications apparent and Pt Satisfied with anesthetic care
[2018-10-17] MEDS: AMLODIPINE BESYLATE 5 MG TAB PO SCH (09:02)
[2018-10-17] MEDS: MULTIVITAMIN TAB PO SCH (09:02)
[2018-10-17] MEDS: TOCOPHERYL, DL-ALPHA 400 UNITS CAP PO SCH (09:02)
[2018-10-17] MEDS: INSULIN ASPART 100 UNITS/ML 3 ML PEN SC SCH ×4 (09:07→21:11)
[2018-10-17] MEDS: POTASSIUM CHLORIDE 20 MEQ TABCR PO SCH (09:07)
[2018-10-17] MEDS: PANTOprazole 40 MG TAB PO SCH ×2 (09:08→18:09)
[2018-10-17] MEDS: FUROSEMIDE 80 MG in SYRINGE 0 ML IV SCH ×2 (09:09→21:20)
--- NOTE | 2018-10-17 09:17 | Pre Anesthesia Assessment ---
Date of Service October 17, 2018 Pre Sedation Assessment Vital Signs Temp Pulse Pulse Resp BP BP BP 10/17/18 08:01 36.5 C 70 17 141/73 H 10/17/18 07:31 66 14 134/58 L 10/17/18 07:16 65 15 132/60 10/17/18 07:01 65 11 L 149/78 H 10/17/18 06:01 77 18 125/69 10/17/18 05:00 36.6 C 69 18 143/74 H 10/17/18 04:46 66 120/69 10/17/18 04:41 62 124/70 10/17/18 04:33 71 112/71 10/17/18 04:26 69 18 109/67 10/17/18 04:22 78 124/68 10/17/18 04:14 80 16 124/68 10/17/18 04:09 74 17 128/60 10/17/18 04:06 72 117/69 10/17/18 04:00 73 18 121/71 10/17/18 03:57 72 128/75 10/17/18 03:55 71 17 132/79 10/17/18 03:53 75 132/67 10/17/18 03:51 132/76 10/17/18 03:29 139/86 10/17/18 03:21 77 20 144/81 H 10/17/18 03:18 132/78 10/17/18 03:14 75 146/78 H 10/17/18 03:08 146/78 H 10/17/18 03:02 89 158/87 H 10/17/18 02:47 36.5 C 100 H 24 173/96 H 10/17/18 00:32 10/17/18 00:21 99 H 22 153/87 H 10/16/18 23:13 37.1 C 84 18 134/71 10/16/18 20:00 37.1 C 76 18 117/69 10/16/18 15:40 36.9 C 71 20 112/60 10/16/18 11:02 36.8 C 69 18 105/61 Pulse Ox 10/17/18 08:01 93 10/17/18 07:31 89 L 10/17/18 07:16 88 L 10/17/18 07:01 92 10/17/18 06:01 93 10/17/18 05:00 95 10/17/18 04:46 90 10/17/18 04:41 10/17/18 04:33 90 10/17/18 04:26 91 10/17/18 04:22 10/17/18 04:14 91 10/17/18 04:09 90 10/17/18 04:06 10/17/18 04:00 10/17/18 03:57 10/17/18 03:55 91 10/17/18 03:53 10/17/18 03:51 10/17/18 03:29 10/17/18 03:21 91 10/17/18 03:18 91 10/17/18 03:14 10/17/18 03:08 10/17/18 03:02 91 10/17/18 02:47 90 10/17/18 00:32 94 10/17/18 00:21 75 L 10/16/18 23:13 90 10/16/18 20:00 92 10/16/18 15:40 91 10/16/18 11:02 96 Cardiovascular + regular rate and + regular rhythm + murmur Respiratory + respiratory effort normal Pre-Sedation Airway Assessment Smoking Status: Never smoker Hx Sleep Apnea: No Hx Difficult Intubation: No Short, Thick Neck: No Thyromental Distance: < 3.5 Finger Breadths Mallampati Class: III ASA: ASA3 Procedure Planning Contraindications for Sedation: none Current Medications Reviewed: Yes Notes The planned sedation has been discussed with the patient. Informed Consent was obtained. I have identified the patient, determined the appropriateness of sedation and have assessed the patient immediately prior to the procedure. All medicine(s) and interventions are by my order.
[2018-10-17] MEDS ORDERED: MIDAZOLAM HCL 1 MG/ML 2ML VIAL ONE (10:15)
[2018-10-17] MEDS ORDERED: HEPARIN (PORCINE) 1000 UNIT/ML 10 ML (CATH LAB USE ONLY) ONE (10:15)
[2018-10-17] MEDS ORDERED: fentaNYL citrate 100 MCG/2 ML VIAL ONE (10:15)
[2018-10-17] MEDS ORDERED: NITROGLYCERIN/D5W 100MCG/ML 20ML SYR ONE (10:15)
[2018-10-17] MEDS ORDERED: NiCARDipine HCL INJ 2.5 MG/ML 10 ML AMP ONE (10:15)
--- NOTE | 2018-10-17 11:40 | Cardiac Catheterization ---
Date of Service October 17, 2018 Cardiac Cath Report Cardiac Cath Report Procedure performed: Left heart catheterization, selective coronary angiography Staff cloth classer: Petey Sanchez MD Indication: The patient is a 78-year-old woman with a history of coronary disease having previously undergone Mcneal intervention to the LAD. She presented not in any Medical Center with persistent symptoms of chest discomfort and elevated cardiac biomarkers. Procedure in detail: The patient was informed of the risks benefits and alternatives to the intended procedure, he understood such and wished to proceed. She was taken to the cardiac catheterization suite in a fasting state. Conscious sedation was administered per protocol and the patient was monitored electrocardiographically throughout today's procedure. The right wrist area was prepped and draped in usual sterile fashion. This area was anesthetized using subcutaneous administration of a lidocaine solution. The right radial artery was then accessed using Seldinger technique, and a arterial sheath was placed at this site over a guidewire. The sheath was used to facilitate passage of the cardiac catheter for coronary angiography and left heart catheterization. Coronary angiogram was then obtained in multiple orthogonal views prior to removal of the catheter. At the conclusion of the procedure the sheath was removed and hemostasis was achieved at the access site using manual pressure. The patient tolerated procedure well, there were no immediate complications. Equipment used: 5 [place] 4, 5 Spanish angled pigtail Findings: Opening aortic pressure: 120/45 mmHg Closing aortic pressure: 128/53 mmHg Left ventricular pressure: 141 over 12 mmHg Left ventricular end-diastolic pressure: 25 mmHg Coronary angiography: The left main was normal in size and caliber with some tapering at its distal portion. The estimated stenosis was 40%. It trifurcated into an LAD a small ramus intermedius and a circumflex branch Left anterior descending: Left anterior descending was a large transapical vessel. It had a subtotal occlusion in its proximal portion just before the previously stented area. The stent appeared widely patent. There was a single diagonal branch distal to the stent with proximal 40% ostial stenosis. Left circumflex: Left circumflex artery was a nondominant vessel. It he had some luminal irregularities in its proximal portion with an estimated 40% stenosis at maximum. It produced several obtuse marginal branches without obstructive disease Ramus intermedius: Ramus intermedius was a medium-sized vessel it had approximately 70% stenosis at its ostium Right coronary artery: The right coronary artery was a dominant vessel. It had approximately 50% ostial stenosis. There were luminal irregularities throughout the remainder of the vessel without discrete stenoses. Impression: Acute coronary syndrome involving the proximal left anterior descending Nonobstructive disease involving the left anterior descending, left circumflex and right coronary artery Unchanged stenosis involving the proximal ramus intermedius Mild aortic stenosis Elevated left ventricular end-diastolic pressure.
[2018-10-17] MEDS ORDERED: FUROSEMIDE 40 MG/4 ML VIAL IV ONE (11:41)
[2018-10-17] MEDS ORDERED: CLOPIDOGREL BISULFATE 300 MG TAB ONE (12:11)
--- NOTE | 2018-10-17 12:15 | Post Anesthesia Assessment ---
Date of Service October 17, 2018 Post Sedation Assessment Vital Signs Temp Pulse Pulse Resp BP BP BP 10/17/18 09:40 79 18 127/63 10/17/18 09:02 75 20 141/78 H 10/17/18 08:31 64 15 119/60 10/17/18 08:01 36.5 C 70 17 141/73 H 10/17/18 07:31 66 14 134/58 L 10/17/18 07:16 65 15 132/60 10/17/18 07:01 65 11 L 149/78 H 10/17/18 06:01 77 18 125/69 10/17/18 05:00 36.6 C 69 18 143/74 H 10/17/18 04:46 66 120/69 10/17/18 04:41 62 124/70 10/17/18 04:33 71 112/71 10/17/18 04:26 69 18 109/67 10/17/18 04:22 78 124/68 10/17/18 04:14 80 16 124/68 10/17/18 04:09 74 17 128/60 10/17/18 04:06 72 117/69 10/17/18 04:00 73 18 121/71 10/17/18 03:57 72 128/75 10/17/18 03:55 71 17 132/79 10/17/18 03:53 75 132/67 10/17/18 03:51 132/76 10/17/18 03:29 139/86 10/17/18 03:21 77 20 144/81 H 10/17/18 03:18 132/78 10/17/18 03:14 75 146/78 H 10/17/18 03:08 146/78 H 10/17/18 03:02 89 158/87 H 10/17/18 02:47 36.5 C 100 H 24 173/96 H 10/17/18 00:32 10/17/18 00:21 99 H 22 153/87 H 10/16/18 23:13 37.1 C 84 18 134/71 10/16/18 20:00 37.1 C 76 18 117/69 10/16/18 15:40 36.9 C 71 20 112/60 Pulse Ox 10/17/18 09:40 94 10/17/18 09:02 93 10/17/18 08:31 91 10/17/18 08:01 93 10/17/18 07:31 89 L 10/17/18 07:16 88 L 10/17/18 07:01 92 10/17/18 06:01 93 10/17/18 05:00 95 10/17/18 04:46 90 10/17/18 04:41 10/17/18 04:33 90 10/17/18 04:26 91 10/17/18 04:22 10/17/18 04:14 91 10/17/18 04:09 90 10/17/18 04:06 10/17/18 04:00 10/17/18 03:57 10/17/18 03:55 91 10/17/18 03:53 10/17/18 03:51 10/17/18 03:29 10/17/18 03:21 91 10/17/18 03:18 91 10/17/18 03:14 10/17/18 03:08 10/17/18 03:02 91 10/17/18 02:47 90 10/17/18 00:32 94 10/17/18 00:21 75 L 10/16/18 23:13 90 10/16/18 20:00 92 10/16/18 15:40 91 Recovery Score Activity: Moves 4 extremities Respiration: Deep Breath/Cough Circulation: +/-20% PreAnes Value Consciousness: Fully Awake Oxygen Saturation: O2 needed for >90% Post Anesthesia Score: 9 Discharge Sedation Level of Care: Fast Track Phase II Post Sedation Plan On clinical assessment, the patient appears to have tolerated the sedation without complications. Patient is recovering as anticipated. Patient will continue to be monitored by nursing and may be discharged when sedation discharge criteria are met per below protocol. Upon Completions of procedure and additional 15 minutes continue every 5 minute vital signs and the P.A.R. score; then discharge to a Phase I or Fast Track to Phase II per the following guidelines: * Discharge Patient to appropriate Phase II area if PAR is 8 or greater or return to pre- procedure baseline. The post - procedure orders will be as directed. * If PAR score is less than 8 or not return to pre-procedure baseline then patient will follow Phase I monitoring till PAR is reached for Phase II. The Phase I may be done in procedure room or may call to secure a Phase I area. * �If naloxone or flumazenil are used for reversal, hold in Phase I for continued monitoring from when last reversal dose was given for a minimum of 60 minutes or longer pending the nurse and/or physician discretion of patient condition before discharge to Phase II.� Please call the Sedation Physician to re-evaluate and complete post-note for discharge to Phase II area. Do NOT discharge from procedure sedation or Phase 1 until post- sedation evaluation note is complete by procedure /sedation MD Sedation Discharge Instructions to be given to the patient at discharge to home.
--- NOTE | 2018-10-17 12:27 | Cardiac Catheterization ---
Cardiac Cath Procedure Full Procedure Date October 17, 2018 Pre-Procedure Diagnosis Pre-Procedure Diagnosis: Non STEMI AUC Score AUC Score: 8 Post-Procedure Diagnosis Post-Procedure Diagnosis: Severe CAD and Successful PCI Procedure(s) Performed Procedure(s) Performed: Coronary Angiography, Drug Eluting Stent and IVUS Store Merchandiser Pascual Bateman MD Clinical Transplant Coordinator(s) Snehal Estimated Blood Loss Estimated Blood Loss: 15 Medication(s) Medication(s): Clopidogrel, Fentanyl, Heparin, Nitroglycerin and Versed Summary of Findings Indication: High risk NSTEMI Access: 6 [place] right radial artery Catheters: EBU 3.5 guide Findings: For full details of patient's coronary angiography please cath report dictated by Dr. Sanchez. Briefly, patient found to have multi vessel disease including a severe 80-90 % stenosis involving the mid LAD. Decision to proceed with PCI. LVEDP -23 -- PCI -- Antithrombotic therapy: Heparin, clopidogrel Procedure: Left main cannulated with EBU 3.5 Processing Specialist 50 wire passed across lesion into distal vessel Proximal to mid LAD lesion predilated with 2.0 compliant balloon IVUS revealed a moderate amount of thrombus in the proximal aspect of the stent with moderately calcified diffuse disease extending back almost to ostium Dilated lesion stented with 3.0 x 22 resolute drug-eluting stent IVUS confirmed well-expanded, well opposed stent with no edge dissection Stent post-dilated with 3.0 noncompliant balloon IC vasodilators administered for spasm Post procedure VIJAYA 3 flow, stent well expanded with minimal residual stenosis and no apparent cardiac complications. Procedure complicated by hypoxia with O2 sats down to 70s requiring nonrebreather and IV Lasix 40 mg x1 Arterial Closure: TR band Summary: 1. Successful PCI of proximal to mid LAD with single drug-eluting stent which overlapped the proximal aspect of prior mid LAD stent (3.0 x 22 mm resolute). 2. 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 Continue gentle diuresis Continue statin, and ASCVD risk factor modification Consult cardiac Rehab Hemodynamics Rest Ao:: 128/53/80 Final Ao: 119/52/79 LV: -- Recommendations Recommendations: PCI without planned CABG Specimens Specimens: None Radiation Exposure (mGy) 3213 Contrast (mls) 85 Fluids (cc crystalloids) Fluids (cc crystalloids): 100 Drains Drains: None Anesthesia Moderate Procedural Complication(s) None Disposition ICU ACC Data: Protocol Manager Cardiac Status Clinical evaluation leading to the procedure CAD Presenation: Non STEMI Anginal Classification: CCS IV Heart Failure: NYHA Class: CCS IV Cardiogenic Shock within 24 Hours: No Cardiac Arrest within 24 Hours: No Imaging Studies Past 6 Months: Yes Stress Studies Past 6 Months: No Diagnostic Physicians Name: Pascual Bateman MD Status: Elective Closure Device Percutaneous Entry Location: Radial Closure Device: Radial Band Recommendations: PCI without planned CABG PCI Indication: PCI for high risk Non-PILI Lesion Segment Name: Proximal to mid LAD Culprit Artery: Yes Stenosis Prior to Rx (%): 80-90 Chronic Total Occlusion: No IVUS: Yes FFR: No Pre-Procedure VIJAYA Flow: 3 Previously Treated Lesion: No Lesion Complexity: Non-High/Non-C Lesion Length (mm): 18 Thrombus Present: Yes Bifurcation Lesion: Yes Guidewire Across Lesion: Stenosis Post-Procedure (%): 0 Post-Procedure VIJAYA Flow : 3 Devices(s) Deployed: Yes Yes Intraprocedure Events Significant Disection: No Perforation: No
--- NOTE | 2018-10-17 14:50 | Gastroenterology Progress Note ---
Date of Service October 17, 2018 Assessment & Plan (1) Chest pain: may have been cardiac all along and not obvious, chest pain resolved post stenting. --further per cardiology esophageal spasm on EGD--continue PPI bid in case reflux causing it. mild to mod gastritis--PPI as above. Stool for h.pylori Ag pending hx of GERD-- dysphagia---no evidence of stricture on EGD elevated alk phos, AST--can be from passive congestion of liver--would recommend following Since chest pain seems cardiac at present will sign off. Please call for further question. Subjective cc f/u chest pain HPI Per nursing patient had a good day yesterday and was tolerating po well. Then last pm per nurse and patient crushing chest pain with radiation to left arm. Troponins elevated. She went to slab stripper today and had stent placed for high grade occulsion. Chest pain resolved post stent. Physical Exam 2 Vital Signs (Past 24 Hours): Last Vital Signs Temp 36.4 C L 10/17/18 12:32 Pulse 64 10/17/18 13:16 Resp 20 10/17/18 13:16 BP 97/43 L 10/17/18 13:16 Pulse Ox 91 10/17/18 13:16 Constitutional: WD/WN, vitals as above Respiratory: normal respiratory effort, lungs clear to auscultation Cardiovascular: Heart Sounds: no murmur Gastrointestinal (Abdomen): normal bowel sounds, soft, nontender, no hepatosplenomegaly Psychiatric: A+Ox3, euthymic affect _ (1) Chest pain Chest pain type: unspecified Ischemic chest pain type: Qualified Code(s): R07.9 - Chest pain, unspecified
[2018-10-17] MEDS: ONDANSETRON INJ 2 MG/ML 2 ML VIAL IV PRN (18:09)
[2018-10-17] MEDS: MAGNESIUM OXIDE 400 MG TAB PO SCH (21:20)
[2018-10-17] MEDS: CLOPIDOGREL BISULFATE 75 MG TAB PO SCH (21:20)
[2018-10-17] MEDS: AMIODARONE 200 MG TAB PO SCH (21:49)
--- NOTE | 2018-10-17 23:34 | Hospitalist Progress Note ---
Date of Service October 17, 2018 Assessment & Plan (1) Pleural effusion due to CHF (congestive heart failure): As noted below (2) Acute pulmonary edema with congestive heart failure: As noted below (3) NSTEMI (non-ST elevated myocardial infarction): Patient was diagnosed with a NSTEMI. Placed on NATY from cardio cath. Please refer to cath report. Patient was loaded with plavix. will cont. plavix 75 mg PO daily with apixaban, (4) Chest pain: Patient continues to present with chest pain, she has H/O of RA. Patient is now in ICU. Diagnosed with NSTEMI and treated with NATY. Please read above (5) CAD (coronary artery disease): s/p cath in April 2018 with patent LAD stent and nonobstructive CAD otherwise. high-risk cath candidate due to elevated Creatinine/CKD. will monitor. Trops are negative 5x negative. However, patient developed NSTEMI on evening of 10/16 going into 10/17. (6) Acute on chronic combined systolic and diastolic CHF (congestive heart failure): Patient was found to be in acute pulmonary edema with signifcant plueral effusion. Patient is currently receiving lasix IV Will monitor Is and Os (7) Left bundle branch block: chronic. (8) Hypothyroidism: TSH 1 month ago was compensated. Cont synthroid as is. (9) CKD (chronic kidney disease), stage III: creatinine has been about 2 for the last 3 months. creatinine at 1.79 on 10/17 (10) DM II (diabetes mellitus, type II), controlled: check BSGs ac/hs. novolog sliding scale. low threshold for lantus. (11) Pacemaker: interrogation requested by Dr. Alvarez. This was completed. (12) HTN (hypertension): controlled. cont home meds. (13) HLD (hyperlipidemia): she is statin intolerant. (14) Morbid obesity: BMI 36 (15) Atrial flutter: h/o / paroxysmal pacemaker in place takes eliquis chronically; resumed on 10/15 after EGD (16) Chronic combined systolic and diastolic CHF (congestive heart failure): currently compensated. watch volume status carefully. cont BB not HERMELINDO/ARB candidate due to CKD (17) DVT prophylaxis: Shruthi spent 35 minutes in management of patient. Subjective Patient is a 78 yo female is now in the ICU. Patient had an eventful day, overnight, her chest pain worsened. Troponin was repeated, which was elevated. Patient appeared to have a NSTEMI. Cardio was called, plan for cath was done. Patient underwent cath with NATY. At time of exam, patient reports feeling signifcantly better. Patient reports her chest pain has improved. Cardiovascular: as per Subjective / HPI, + chest pain, + chest pain at rest, + radiating jaw, neck or arm pain and + dyspnea; no orthopnea, no paroxysmal nocturnal dyspnea and no palpitations Physical Exam 2 Vital Signs (Past 24 Hours): Last Vital Signs Temp 36.8 C 10/17/18 16:02 Pulse 76 10/17/18 20:00 Resp 19 10/17/18 16:02 BP 92/57 L 10/17/18 16:02 Pulse Ox 95 10/17/18 16:02 Physical Exam: Constitutional: well developed, well nourished and + obese ; no acute distress. ENMT: external ear and nose normal, oropharynx normal Respiratory: normal respiratory effort, lungs clear to auscultation Cardiovascular: Rate/Rhythm: regular rate and regular rhythm Heart Sounds: normal S1, normal S2 and + murmur (2/6 LLSB) Vessels: posterior tibial pulses present and dorsalis pedis pulses present; no JVD Extremities: no edema Gastrointestinal (Abdomen): Percussion/Palpation: + abdomen tender (high epigastric region to palpation; no chest wall tenderness to palpation ) Musculoskeletal: no cyanosis or clubbing, extremities motor strength 5/5 Psychiatric: A+Ox3, euthymic affect _ (1) CAD (coronary artery disease) Associated angina: with unspecified angina Coronary Disease-Associated Artery /Lesion type: ione artery [place] vs. transplanted heart: ione heart Qualified Code(s): I25.119 - Atherosclerotic heart disease of ione coronary artery with unspecified angina pectoris (2) Atrial flutter Atrial flutter type: unspecified Qualified Code(s): I48.92 - Unspecified atrial flutter (3) HLD (hyperlipidemia) Hyperlipidemia type: mixed hyperlipidemia Qualified Code(s): E78.2 - Mixed hyperlipidemia (4) Hypothyroidism Hypothyroidism type: acquired Qualified Code(s): E03.9 - Hypothyroidism, unspecified (5) DM II (diabetes mellitus, type II), controlled Chronic kidney disease stage: Diabetes mellitus complication detail: with nephropathy Diabetes mellitus complication status: with kidney complications Diabetes mellitus retirement insulin use: with retirement use Diabetes mellitus macular edema: Diabetic retinopathy severity: Laterality: Proliferative retinopathy type: Qualified Code(s): E11.21 - Type 2 diabetes mellitus with diabetic nephropathy; Z79.4 - MCC (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 (6) Chest pain Chest pain type: unspecified Ischemic chest pain type: Qualified Code(s): R07.9 - Chest pain, unspecified (7) HTN (hypertension) Hypertension type: essential hypertension Qualified Code(s): I10 - Essential (primary) hypertension
[2018-10-18] MEDS: LEVOTHYROXINE SODIUM 75 MCG TABLET PO SCH (06:25)
[2018-10-18] MEDS: TOCOPHERYL, DL-ALPHA 400 UNITS CAP PO SCH (07:59)
[2018-10-18] MEDS: AMLODIPINE BESYLATE 5 MG TAB PO SCH (07:59)
[2018-10-18] MEDS: PANTOprazole 40 MG TAB PO SCH ×2 (07:59→20:51)
[2018-10-18] MEDS: INSULIN ASPART 100 UNITS/ML 3 ML PEN SC SCH ×4 (07:59→20:52)
[2018-10-18] MEDS: MULTIVITAMIN TAB PO SCH (07:59)
[2018-10-18] MEDS: FUROSEMIDE 80 MG in SYRINGE 0 ML IV SCH ×2 (08:01→20:50)
[2018-10-18] MEDS: POTASSIUM CHLORIDE 20 MEQ TABCR PO SCH (08:01)
--- NOTE | 2018-10-18 08:57 | XRay Report ---
XR chest 1V portable CLINICAL HISTORY: pleural effusion COMPARISON STUDY: Chest CT April 16, 2019. FINDINGS: Dual-lead left subclavian pacemaker is in place. Moderate cardiomegaly is noted. There is n o pneumothorax. Moderate right and small left pleural effusions persist. Pulmonary edema has slightly improved since CT of October 17, 2018. Bibasilar opacities are again noted. IMPRESSION: 1. Persistent moderate right and small left pleural effusions and associated bibasilar opacities. 2. Pulmonary edema, slightly improved since prior chest CT. Electronically signed by: Cali Jacobo M.D. 10/18/2018 8:55 AM
--- NOTE | 2018-10-18 10:03 | Cardiology Progress Note ---
Date of Service October 18, 2018 Assessment & Plan (1) NSTEMI (non-ST elevated myocardial infarction): At the time of her initial presentation she had typical sounding chest discomfort with a prolonged duration and negative cardiac enzymes. With continued symptoms over the last several days she had positive enzymes and an increasing pattern, including a higher level following catheterization and intervention (troponin 4.7 at 4:30 AM today). This is surprising elevated following intervention of a non-occluded vessel. Perhaps she has some small vessel disease causing her discomfort and now her enzyme rise although it is hard to put the whole picture together. It will be interesting to see what happens to her troponin now although it may not get us closer to a definitive answer. (2) Chest pain: Her chest pain was typical in character, we cannot read her electrocardiogram, therefore it was difficult to determine the cause. Her catheterization suggested significant LAD disease, although I am not sure that would explain rest angina although with the elevated enzymes it certainly had to be done and intervention appeared to be indicated. She did have some discomfort following the procedure, but this morning feels well. If she has no further chest discomfort we will have to attribute it to coronary artery disease despite the lack of enzymes initially. Other possibilities however include small vessel disease with a small infarction now with resolution of her discomfort, or esophageal spasm with improvement with therapy of her gastritis. (3) Chronic combined systolic and diastolic CHF (congestive heart failure): She appears to have developed an element of congestive heart failure with hypoxia, she seems to have had progressive bilateral pleural effusions this admission despite the fact that she has lost a significant amount of weight this admission. Her creatinine is elevated but is not higher now, she probably will need some diuresis although once again is difficult to understand how she developed congestive heart failure having lost about 3 kg over 4 days. Perhaps her initial weights are incorrect. (4) Left bundle branch block: She has a permanent left bundle branch block, that has not changed during her hospitalization and does interfere with interpretation of her electrocardiogram for ischemia. (5) Atrial flutter: She has had no significant atrial fibrillation or flutter recently, only about 20 minutes on and none since. Over the long run however she will need to remain on coagulation. (6) Anticoagulant long-term use: She does have a history of paroxysmal atrial fibrillation although recently she has not had a lot of it, but she should be on long-term anticoagulation. She is on Eliquis, her weight would suggest a 5 mg twice daily dose, her age of [age] years old is 1 year under a 2.5 mg twice daily dose and her creatinine would suggest a 2.5 mg twice daily dose. She is now on clopidogrel and will need to remain on that, she is not on aspirin. Serious consideration should be given to reducing her Eliquis to 2.5 mg twice a day since she has borderline indication for the higher dose and an increased risk of bleeding on her platelet inhibitor, although she was on that as an outpatient as well. Subjective Events of yesterday reviewed, she did undergo cardiac catheterization and had an 80-90% LAD stenosis which was successfully dilated and stented. She reports not having any chest discomfort this morning and feeling well. On closer questioning however she reports having discomfort after the procedure yesterday , and last evening, but none since then. She has not been active, she has remained in bed primarily. She has no other complaints such as shortness of breath, etc. Physical Exam 2 Vital Signs (Past 24 Hours): Last Vital Signs Temp 36.8 C 10/18/18 08:02 Pulse 80 10/18/18 08:02 Resp 16 10/18/18 08:02 BP 155/73 H 10/18/18 08:02 Pulse Ox 93 10/18/18 08:02 Physical Exam: Constitutional: Alert, cooperative and in no distress. Pulmonary: Clear to auscultation bilaterally. Cardiac: Regular rhythm with a grade 2/6 crescendo decrescendo murmur at the base, a grade 3/6 holosystolic murmur at the apex, no gallop or rub. Abdomen: Soft, nontender with normal bowel sounds. Extremities: No edema. Skin: No rash, ecchymoses or petechiae. The right wrist catheterization site is bandaged and not swollen. Results & Data Diagnostic Findings Telemetry monitoring shows sinus rhythm with intact AV conduction and an IVCD pattern. _ (1) Chest pain Chest pain type: unspecified Ischemic chest pain type: Qualified Code(s): R07.9 - Chest pain, unspecified (2) Atrial flutter Atrial flutter type: unspecified Qualified Code(s): I48.92 - Unspecified atrial flutter
--- NOTE | 2018-10-18 15:59 | XRay Report ---
XR chest 1V portable CLINICAL HISTORY: S/P B/L thoracentesis - R/O PNX dyspnea COMPARISON STUDY: 10/18/2018 8:35 AM FINDINGS: And diminished bilateral pleural effusions postthoracentesis. No evidence for postprocedura l pneumothorax. IMPRESSION: No evidence of pneumothorax post bilateral thoracentesis. The above report was generated using voice recognition software. It may contain grammatical, syntax or spelling errors. Electronically signed by: Kyle Villarreal M.D. 10/18/2018 3:57 PM
--- NOTE | 2018-10-18 19:18 | Critical Care Progress Note ---
Date of Service October 18, 2018 Assessment & Plan (1) Pleural effusion due to CHF (congestive heart failure): Impression: 1. Coronary artery disease status post PCI, NATY to LAD. 2. CHF with bilateral pleural effusion. Status post thoracentesis bilaterally. 3. A. fib, pacemaker in place, rate controlled. 4. Diabetes. 5. Cardiomyopathy with EF of 45%. 6. Esophageal spasm. Plan: 1. Continue with diuresis. 2. Antiplatelet therapy per cardiology. 3. Appreciate Dr. Mary Bateman input. 4. Thoracentesis was done bilaterally, 1150 mL removed from the right side and 650 mL removed from the left side, transudate. Most likely related to her CHF. 5. Continue PPI per GI. 6. Wean oxygen off, the patient felt better after thoracentesis. 7. Continue with Eliquis as she was on it before. 8. Oral intake. 9. Disposition plan per cardiology and principal team. Discussed with the staff on rounds and details, critical care time spent with the patient was 35 minutes excluding procedure time. Subjective The patient remains having shortness of breath, requiring 10 L of oxygen via facemask, she denies any cough, her O2 saturation seems like to drop off the oxygen significantly. The patient is not aware of it. She continues to have edema in the periphery, no abdominal pain no nausea or vomiting, tolerating oral intake, no melena or hematochezia Physical Exam 2 Vital Signs (Past 24 Hours): Last Vital Signs Temp 36.6 C 10/18/18 18:00 Pulse 78 10/18/18 18:00 Resp 25 H 10/18/18 18:00 BP 116/52 L 10/18/18 18:00 Pulse Ox 95 10/18/18 18:00 Physical Exam: Vital signs are stable, S1-S2 regular rate and rhythm, lungs are clear with damage breath sounds at the bases, abdomen is benign, she remains in A. fib, edema in the periphery noted. Results & Data Laboratory Results Her labs also were reviewed personally. Diagnostic Findings Chest x-ray and ultrasound was done at the bedside, the ultrasound showed bilateral pleural effusion.
--- NOTE | 2018-10-18 19:33 | Procedure Note ---
Procedure Note Date of Service October 18, 2018 Note Thoracentesis was done at the bedside, bilaterally, consent obtained from the patient, risk and benefit explained the details, the patient agreed to the procedure. Under ultrasound guidance, noted the pleural fluid on the right side, under strict sterile field, the skin was prepped with chlorhexidine, at the level of the eighth intercostal space posteriorly, the skin was injected with 10 mL of 1 % lidocaine, using scalpel and Seldinger technique, a catheter was inserted into the pleural cavity, total of 1150 mL of dark yellow fluid was removed. The catheter was removed and pressure was applied at the insertion site for 2 minutes. Covered that with Band-Aid. Ultrasound guidance was used also for the left pleural effusion, under strict sterile field, after changing all the gloves and all the dressing, at the level of the fifth intercostal space posteriorly, noted the pleural fluid, skin was prepped with chlorhexidine, and the skin was injected with 10 mL of 1% lidocaine , using a scalpel and the catheter, introduced to the left pleural cavity, total amount of 650 mL of dark yellow fluid was removed, the catheter after that was removed, pressure was applied at the insertion site, no immediate complication was noted. Chest x-ray was reviewed, reduction in the pleural effusion bilaterally, no pneumothorax. The patient tolerated the procedure very well, fluid analysis revealed transudate pleural effusion.
[2018-10-18] MEDS ORDERED: TRAMADOL HCL 50 MG TABLET PO PRN (20:09)
[2018-10-18] MEDS: AMIODARONE 200 MG TAB PO SCH (20:49)
[2018-10-18] MEDS: CLOPIDOGREL BISULFATE 75 MG TAB PO SCH (20:51)
--- NOTE | 2018-10-18 21:31 | Hospitalist Progress Note ---
Date of Service October 18, 2018 Assessment & Plan (1) Acute pulmonary edema with congestive heart failure: As noted below (2) Acute on chronic combined systolic and diastolic CHF (congestive heart failure): Patient was found to be in acute pulmonary edema with signifcant plueral effusion. Patient is currently receiving lasix IV Will monitor Is and Os Patient continues to require oxygen via nasal cannula. DW director export, will consider tapping fluid from lung. (3) NSTEMI (non-ST elevated myocardial infarction): Patient was diagnosed with a NSTEMI. Placed on NATY from cardio cath. Please refer to cath report. Patient was loaded with plavix. will cont. plavix 75 mg PO daily with apixaban, (4) Pleural effusion due to CHF (congestive heart failure): As noted above (5) Chest pain: Patient continues to present with chest pain, she has H/O of RA. Patient is now in ICU. Diagnosed with NSTEMI and treated with NATY. Please read below (6) CAD (coronary artery disease): s/p cath in April 2018 with patent LAD stent and nonobstructive CAD otherwise. Patient had intially 5x tropoinin negative, but with continued chest pain. Her chest pain worsened and her trop increased. However, patient developed NSTEMI on evening of 10/16 going into 10/17. Patient had cath with NATY. Patient will be on plavix and lowered dose of eliquis. Decreased eliquis to 2.5 mg PO BID, due to age, creatinine. (7) Left bundle branch block: chronic. (8) Hypothyroidism: TSH 1 month ago was compensated. Cont synthroid as is. (9) CKD (chronic kidney disease), stage III: creatinine has been about 2 for the last 3 months. creatinine at 1.75 on 10/18 (10) DM II (diabetes mellitus, type II), controlled: check BSGs ac/hs. novolog sliding scale. low threshold for lantus. (11) Pacemaker: interrogation requested by Dr. Alvarez. This was completed. (12) HTN (hypertension): controlled. cont home meds. (13) HLD (hyperlipidemia): she is statin intolerant. (14) Morbid obesity: BMI 36 (15) Atrial flutter: h/o / paroxysmal pacemaker in place takes eliquis chronically; resumed on 12/31 after EGD Now on lower dose after today / (16) Chronic combined systolic and diastolic CHF (congestive heart failure): currently compensated. watch volume status carefully. cont BB not HERMELINDO/ARB candidate due to CKD (17) DVT prophylaxis: Shruthi spent 35 minutes in management of patient. Subjective Patient is a 78 yo female reports having no pain today. Cardiovascular: as per Subjective / HPI, + chest pain, + chest pain at rest, + radiating jaw, neck or arm pain and + dyspnea; no orthopnea, no paroxysmal nocturnal dyspnea and no palpitations Physical Exam 2 Vital Signs (Past 24 Hours): Last Vital Signs Temp 36.6 C 10/18/18 18:00 Pulse 78 10/18/18 18:00 Resp 25 H 10/18/18 18:00 BP 116/52 L 10/18/18 18:00 Pulse Ox 95 10/18/18 18:00 Physical Exam: Constitutional: well developed, well nourished and + obese ; no acute distress. ENMT: external ear and nose normal, oropharynx normal Respiratory: normal respiratory effort, lungs clear to auscultation Cardiovascular: Rate/Rhythm: regular rate and regular rhythm Heart Sounds: normal S1, normal S2 and + murmur (2/6 LLSB) Vessels: posterior tibial pulses present and dorsalis pedis pulses present; no JVD Extremities: no edema Gastrointestinal (Abdomen): Percussion/Palpation: + abdomen tender (high epigastric region to palpation; no chest wall tenderness to palpation ) Musculoskeletal: no cyanosis or clubbing, extremities motor strength 5/5 Psychiatric: A+Ox3, euthymic affect _ (1) CAD (coronary artery disease) Associated angina: with unspecified angina Coronary Disease-Associated Artery /Lesion type: [place] artery [place] vs. transplanted heart: [place] heart Qualified Code(s): I25.119 - Atherosclerotic heart disease of [place] coronary artery with unspecified angina pectoris (2) Atrial flutter Atrial flutter type: unspecified Qualified Code(s): I48.92 - Unspecified atrial flutter (3) HLD (hyperlipidemia) Hyperlipidemia type: mixed hyperlipidemia Qualified Code(s): E78.2 - Mixed hyperlipidemia (4) Hypothyroidism Hypothyroidism type: acquired Qualified Code(s): E03.9 - Hypothyroidism, unspecified (5) DM II (diabetes mellitus, type II), controlled Chronic kidney disease stage: Diabetes mellitus complication detail: with nephropathy Diabetes mellitus complication status: with kidney complications Diabetes mellitus termite treater helper insulin use: with half-way use Diabetes mellitus macular edema: Diabetic retinopathy severity: Laterality: Proliferative retinopathy type: Qualified Code(s): E11.21 - Type 2 diabetes mellitus with diabetic nephropathy; Z79.4 - [facility] (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 (6) Chest pain Chest pain type: unspecified Ischemic chest pain type: Qualified Code(s): R07.9 - Chest pain, unspecified (7) HTN (hypertension) Hypertension type: essential hypertension Qualified Code(s): I10 - Essential (primary) hypertension
[2018-10-18] MEDS: MAGNESIUM OXIDE 400 MG TAB PO SCH (21:43)
[2018-10-19] MEDS: HYDROmorphone INJ 0.5 MG/0.5 ML SYR IV PRN (04:47)
[2018-10-19] MEDS: ONDANSETRON INJ 2 MG/ML 2 ML VIAL IV PRN (04:47)
[2018-10-19] MEDS ORDERED: ACETAMINOPHEN 325 MG TAB PO PRN (05:43)
[2018-10-19] MEDS: LEVOTHYROXINE SODIUM 75 MCG TABLET PO SCH (05:58)
[2018-10-19] MEDS: MULTIVITAMIN TAB PO SCH (07:54)
[2018-10-19] MEDS: POTASSIUM CHLORIDE 20 MEQ TABCR PO SCH (07:54)
[2018-10-19] MEDS: AMLODIPINE BESYLATE 5 MG TAB PO SCH (07:54)
[2018-10-19] MEDS: PANTOprazole 40 MG TAB PO SCH ×2 (07:54→21:03)
[2018-10-19] MEDS: TOCOPHERYL, DL-ALPHA 400 UNITS CAP PO SCH (07:54)
[2018-10-19] MEDS: FUROSEMIDE 80 MG in SYRINGE 0 ML IV SCH ×2 (07:54→21:00)
[2018-10-19] MEDS: INSULIN ASPART 100 UNITS/ML 3 ML PEN SC SCH ×4 (07:55→21:02)
[2018-10-19] MEDS: APIXABAN 2.5 MG TAB PO SCH ×2 (08:33→21:01)
--- NOTE | 2018-10-19 09:14 | XRay Report ---
XR chest 1V portable HISTORY: 78 years-old Female follow up chest pain acute atypical chest pain COMPARISON: Chest radiograph October 18, 2017, CTA chest October 17, 2017 TECHNIQUE: Portable AP view of the chest FINDINGS: Cardiac silhouette is enlarged, unchanged. Stable positioning of left subclavian pacer. Calcification the thoracic aortic arch. Mild pulmonary vascular congestion without pneumothorax. Small bilateral p leural effusions with bibasilar opacities, slightly increased from comparison. Degenerative changes o f the shoulders and spine. IMPRESSION: 1. Cardiomegaly with mild pulmonary vascular congestion. 2. Small pleural effusions with subsegmental bibasilar opacities suggestive of atelectasis. The above report was generated using voice recognition software. It may contain grammatical, syntax o r spelling errors. Electronically signed by: Valentino Lerner M.D. 10/19/2018 9:12 AM
[2018-10-19] MEDS: INSULIN GLARGINE SOLOSTAR 100 UNITS/ML 3 ML PEN SC SCH (09:48)
[2018-10-19] MEDS ORDERED: dilTIAZem HCl 5 MG/ML 5 ML VIAL IV STA (11:34)
--- NOTE | 2018-10-19 12:15 | Cardiology Progress Note ---
Date of Service October 19, 2018 Assessment & Plan (1) NSTEMI (non-ST elevated myocardial infarction): At the time of her initial presentation this admission she had typical sounding chest discomfort with a prolonged duration and negative cardiac enzymes. With continued symptoms over the last several days she had positive enzymes and an increasing pattern, including a higher level following catheterization and intervention (troponin 4.7 at 4:30 AM yesterday) which has been gradually decreasing. This is surprising elevated following intervention of a non-occluded vessel. Perhaps she has some small vessel disease causing her discomfort and now her enzyme rise although it is hard to put the whole picture together. Currently she is having no further chest discomfort. (2) Chest pain: Her chest pain was typical in character, we cannot read her electrocardiogram due to her conduction abnormality, therefore it was difficult to determine the cause. Her catheterization suggested significant LAD disease, although I am not sure that would explain rest angina on presentation and negative enzymes although with the elevated enzymes subsequently it certainly had to be done and intervention appeared to be indicated. She did have some discomfort following the procedure, but since shortly after intervention has felt well. If she has no further chest discomfort we will have to attribute it to coronary artery disease despite the lack of enzymes initially. Other possibilities however include small vessel disease with a small infarction now with resolution of her discomfort, or esophageal spasm with improvement with therapy of her gastritis. (3) Chronic combined systolic and diastolic CHF (congestive heart failure): She appears to have developed an element of congestive heart failure with hypoxia, she had progressive bilateral pleural effusions this admission despite the fact that she has lost a significant amount of weight this admission. She did have a long tap performed and feels better. Her creatinine is elevated but is not higher now, she probably will need some diuresis although once again is difficult to understand how she developed congestive heart failure having lost about 3 kg over 4 days. Perhaps her initial weights are incorrect. (4) Left bundle branch block: She has a permanent left bundle branch block, that has not changed during her hospitalization and does interfere with interpretation of her electrocardiogram for ischemia. (5) Atrial flutter: She has not had a lot of difficulty with atrial fibrillation or flutter recently, only about 20 minutes on day and now several episodes since yesterday, currently in what appears to be atrial flutter with 2-1 AV conduction. I am going to start her on diltiazem despite her blood pressure being borderline. Based on her history is likely she will convert spontaneously to sinus rhythm and I would continue amiodarone orally which she has been on. Over the long run she will need to remain on coagulation. (6) Anticoagulant long-term use: She does have a history of paroxysmal atrial fibrillation although recently she has not had a lot of it, but she should be on long-term anticoagulation. She is on Eliquis, her weight would suggest a 5 mg twice daily dose, her age of [age] years old is 1 year under a 2.5 mg twice daily dose and her creatinine would suggest a 2.5 mg twice daily dose. She is now on clopidogrel and will need to remain on that, she is not on aspirin. I agree with reducing her Eliquis to 2.5 mg twice a day since she has borderline indication for the higher dose and an increased risk of bleeding on her platelet inhibitor, although she was on that as an outpatient as well. Subjective Today she seems to be feeling better, she is not having any further chest discomfort, her breathing is improved following tapping her lung. She is aware of her rapid heart rate now which occurred during the night, but she does not have discomfort with it. Physical Exam 2 Vital Signs (Past 24 Hours): Last Vital Signs Temp 36.6 C 10/19/18 08:00 Pulse 113 H 10/19/18 10:01 Resp 22 10/19/18 10:01 BP 96/67 L 10/19/18 10:01 Pulse Ox 92 10/19/18 10:01 Physical Exam: Constitutional: Alert, cooperative and in no distress. Pulmonary: Clear to auscultation bilaterally. Cardiac: Regular rapid rhythm with no murmur, gallop or rub. Abdomen: Soft, nontender with normal bowel sounds. Extremities: No edema. Skin: No rash, ecchymoses or petechiae. Results & Data Diagnostic Findings Telemetry: Since yesterday she has had several episodes of rapid heart rate, currently she has been in tachycardia since during the night. It started out somewhat irregular and I suspect it is atrial flutter. Electrocardiogram: Her electrocardiogram today shows her intrinsic wide-complex rhythm at a rate of 115 bpm, this appears to be atrial flutter with 2-1 AV conduction. _ (1) Chest pain Chest pain type: unspecified Ischemic chest pain type: Qualified Code(s): R07.9 - Chest pain, unspecified (2) Atrial flutter Atrial flutter type: unspecified Qualified Code(s): I48.92 - Unspecified atrial flutter
[2018-10-19] MEDS: dilTIAZem HCl 125 MG in DEXTROSE 5% 100 ML IV SCH ×2 (12:29→22:09)
--- NOTE | 2018-10-19 17:58 | Critical Care Progress Note ---
Date of Service October 19, 2018 Assessment & Plan (1) Pleural effusion due to CHF (congestive heart failure): Impression: 1. Coronary artery disease status post PCI, NATY to LAD. 2. CHF with bilateral pleural effusion. Status post thoracentesis bilaterally. 3. A. fib, pacemaker in place, rate controlled. 4. Diabetes. 5. Cardiomyopathy with EF of 45%. 6. Esophageal spasm. Plan: 1. Continue with diuresis. 2. Antiplatelet therapy per cardiology. 3. Appreciate Dr. Mary Bateman input. 4. No need for additional thoracentesis, recurrence of pleural effusion was noted, still small. Patient O2 saturation has improved and she is on room air with 95%. 5. Continue PPI per GI. 6. Wean oxygen off, the patient felt better after thoracentesis. 7. Continue with Eliquis as she was on it before. Dose was adjusted to renal function. 8. Oral intake. 9. Ambulate the patient. 10. Discontinue aspirin as the patient has allergy listed to it. 11. Discussed with Dr. Zambrano, appreciate his input, patient will be started on diltiazem drip. 12. Disposition plan to telemetry, discussed with Dr. Miller, appreciate his acceptance. Discussed with the staff on rounds and details, critical care time spent with the patient was 35 minutes excluding procedure time. Subjective Improving clinically, no shortness of breath, chest pain has resolved, minimal headache in the morning. Otherwise she is asymptomatic. Ambulatory around the ICU. No shortness of breath. She has been on room air. Physical Exam 2 Vital Signs (Past 24 Hours): Last Vital Signs Temp 36.6 C 10/19/18 16:02 Pulse 118 H 10/19/18 16:09 Resp 21 10/19/18 16:09 BP 109/68 10/19/18 16:09 Pulse Ox 93 10/19/18 16:09 Physical Exam: The patient started to have tachycardia, thought to be related to a flutter, blood pressure has been maintained, O2 saturation 95% on room air. S1-S2 regular rate and rhythm, lungs are clear, abdomen is benign, edema in the periphery noted. Neurologically she is intact. Results & Data Laboratory Results Labs were reviewed, unremarkable. Diagnostic Findings Chest x-ray showed recurrence of bilateral pleural effusion, cardiomegaly. Pacemaker in place.
[2018-10-19] MEDS: AMIODARONE 200 MG TAB PO SCH (21:00)
[2018-10-19] MEDS: CLOPIDOGREL BISULFATE 75 MG TAB PO SCH (21:02)
[2018-10-19] MEDS: MAGNESIUM OXIDE 400 MG TAB PO SCH (21:10)
--- NOTE | 2018-10-19 22:54 | Hospitalist Progress Note ---
Date of Service October 19, 2018 Assessment & Plan (1) Acute pulmonary edema with congestive heart failure: As noted below (2) Acute on chronic combined systolic and diastolic CHF (congestive heart failure): Patient was found to be in acute pulmonary edema with signifcant plueral effusion. Patient had thoracocenthesis on 10/18. Total amount of 650 mL of dark yellow fluid was removed Patient is currently receiving lasix IV 80 mg IV BID. This began on 10/17 Will monitor Is and Os Patient continues to require oxygen via nasal cannula. 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 (3) NSTEMI (non-ST elevated myocardial infarction): Patient was diagnosed with a NSTEMI. Placed on NATY from cardio cath. Please refer to cath report. Patient was loaded with plavix. will cont. plavix 75 mg PO daily with apixaban, (4) Pleural effusion due to CHF (congestive heart failure): As noted above (5) Chest pain: Patient continues to present with chest pain, she has H/O of RA. Patient is now in ICU. Diagnosed with NSTEMI and treated with NATY. Please read below (6) CAD (coronary artery disease): s/p cath in April 2018 with patent LAD stent and nonobstructive CAD otherwise. Patient had intially 5x tropoinin negative, but with continued chest pain. Her chest pain worsened and her trop increased. However, patient developed NSTEMI on evening of 10/16 going into 10/17. Patient had cath with NATY. Patient will be on plavix and lowered dose of eliquis. Decreased eliquis to 2.5 mg PO BID, due to age, creatinine. (7) Left bundle branch block: chronic. (8) Hypothyroidism: TSH 1 month ago was compensated. Cont synthroid as is. (9) CKD (chronic kidney disease), stage III: creatinine has been about 2 for the last 3 months. creatinine at 1.8 on 10/19 (10) DM II (diabetes mellitus, type II), controlled: check BSGs ac/hs. novolog sliding scale. low threshold for lantus. (11) Pacemaker: interrogation requested by Dr. Alvarez. This was completed. (12) HTN (hypertension): controlled. cont home meds. (13) HLD (hyperlipidemia): she is statin intolerant. (14) Morbid obesity: BMI 36 (15) Atrial flutter: h/o / paroxysmal Patient is currently tachycardic. Placed patient cardizem drip. HR remains at 120. May consider DIG. Will continue to monitor pacemaker in place takes shruthi chronically; resumed on 10/15 after EGD (16) Chronic combined systolic and diastolic CHF (congestive heart failure): currently compensated. watch volume status carefully. cont BB not HERMELINDO/ARB candidate due to CKD (17) DVT prophylaxis: Shruthi spent 35 minutes in management of patient. Subjective Patient is a 78 yo female reports having no pain today. Her heart rate has been elavetd this afternoon as per nursing staff. She has been on cardizem drip. Despite elevated HR, she denies any sensation of palpitation. Cardiovascular: as per Subjective / HPI, + chest pain, + chest pain at rest, + radiating jaw, neck or arm pain and + dyspnea; no orthopnea, no paroxysmal nocturnal dyspnea and no palpitations Physical Exam 2 Vital Signs (Past 24 Hours): Last Vital Signs Temp 36.6 C 10/19/18 16:02 Pulse 121 H 10/19/18 20:01 Resp 18 10/19/18 20:01 BP 100/75 10/19/18 20:01 Pulse Ox 90 10/19/18 20:01 Physical Exam: Constitutional: well developed, well nourished and + obese ; no acute distress. ENMT: external ear and nose normal, oropharynx normal Respiratory: normal respiratory effort, lungs clear to auscultation Cardiovascular: tachycardic, Heart Sounds: normal S1, normal S2 and + murmur (2/6 LLSB) no JVD Extremities: no edema Gastrointestinal (Abdomen): Percussion/Palpation: + abdomen tender (high epigastric region to palpation; no chest wall tenderness to palpation ) Musculoskeletal: no cyanosis or clubbing, extremities motor strength 5/5 Psychiatric: A+Ox3, euthymic affect _ (1) Chest pain Chest pain type: unspecified Ischemic chest pain type: Qualified Code(s): R07.9 - Chest pain, unspecified (2) CAD (coronary artery disease) Coronary Disease-Associated Artery/Lesion type: [place] artery [place] vs. transplanted heart: [place] heart Associated angina: with unspecified angina Qualified Code(s): I25.119 - Atherosclerotic heart disease of [place] coronary artery with unspecified angina pectoris (3) Hypothyroidism Hypothyroidism type: acquired Qualified Code(s): E03.9 - Hypothyroidism, unspecified (4) DM II (diabetes mellitus, type II), controlled Diabetes mellitus manager terminal insulin use: with chcf use Diabetes mellitus complication status: with kidney complications Diabetes mellitus complication detail: with nephropathy Diabetic retinopathy severity: Proliferative retinopathy type: Diabetes mellitus macular edema: Laterality : Chronic kidney disease stage: Qualified Code(s): E11.21 - Type 2 diabetes mellitus with diabetic nephropathy; Z79.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
[2018-10-20] MEDS: LEVOTHYROXINE SODIUM 75 MCG TABLET PO SCH (06:12)
[2018-10-20] MEDS: MULTIVITAMIN TAB PO SCH (07:40)
[2018-10-20] MEDS: PANTOprazole 40 MG TAB PO SCH ×2 (07:40→19:56)
[2018-10-20] MEDS: APIXABAN 2.5 MG TAB PO SCH ×2 (07:41→19:55)
[2018-10-20] MEDS: TOCOPHERYL, DL-ALPHA 400 UNITS CAP PO SCH (07:41)
[2018-10-20] MEDS: INSULIN GLARGINE SOLOSTAR 100 UNITS/ML 3 ML PEN SC SCH (07:42)
[2018-10-20] MEDS: POTASSIUM CHLORIDE 20 MEQ TABCR PO SCH (07:44)
[2018-10-20] MEDS: INSULIN ASPART 100 UNITS/ML 3 ML PEN SC SCH ×4 (07:47→20:43)
[2018-10-20] MEDS: FUROSEMIDE 80 MG in SYRINGE 0 ML IV SCH ×2 (07:54→20:43)
[2018-10-20] MEDS: dilTIAZem HCl 125 MG in DEXTROSE 5% 100 ML IV SCH ×2 (10:37→19:34)
--- NOTE | 2018-10-20 11:30 | Cardiology Progress Note ---
Date of Service October 20, 2018 Assessment & Plan (1) Atrial flutter: She still demonstrates atrial flutter with 2-1 conduction despite intravenous diltiazem. Suggest the addition of intravenous followed by oral digoxin. (2) NSTEMI (non-ST elevated myocardial infarction): The patient underwent deployment of a drug-eluting stent in the mid LAD just distal to her prior stent which was widely patent. She also demonstrated 40% left main, 40% proximal LCX, 70% ramus intermedius, and a 50% ostial, dominant RCA stenosis. Continue medical management. (3) Chronic combined systolic and diastolic CHF (congestive heart failure): She appears compensated at this time, however, continues to developed pleural effusions. (4) Left bundle branch block: Stable. (5) Anticoagulant long-term use: She continues to tolerate low-dose Eliquis without difficulty. Subjective The patient is resting comfortably in bed without complaints of chest pain or dyspnea. She does note palpitations with her atrial flutter. Physical Exam 2 Vital Signs (Past 24 Hours): Last Vital Signs Temp 36.5 C 10/20/18 07:30 Pulse 123 H 10/20/18 11:01 Resp 12 10/20/18 11:01 BP 106/64 10/20/18 11:01 Pulse Ox 90 10/20/18 11:01 Physical Exam: In general this is a well-developed well-nourished white female no acute distress. HEENT exam is negative. Neck is supple with mildly delayed carotid upstrokes. No obvious bruits. Jugular venous pressure is flat at 90 degrees. No thyromegaly. Cardiovascular exam reveals an elevated heart rate with a 2/6 basal systolic ejection murmur. Lungs are clear without rales, rhonchi or wheezes. Abdomen is soft without bruits. Extremities reveal intact radial artery pulses bilaterally. Trace pretibial edema is noted. Results & Data Laboratory Results Laboratory Results - last 24 hr 10/19/18 10/19/18 10/20/18 16:10 20:58 04:37 WBC 9.19 RBC 3.78 L Hgb 12.4 Hct 37.6 MCV 99.5 MCH 32.8 MCHC 33.0 RDW Std Deviation 48.6 H RDW Coeff of Manuela 13.5 Plt Count 297 MPV 11.1 H Immature Gran % (Auto) 0.2 Neut % (Auto) 69.6 Lymph % (Auto) 16.4 [place] % (Auto) 10.2 Eos % (Auto) 3.4 Baso % (Auto) 0.2 Immature Gran # (Auto) 0.02 Neut # (Auto) 6.39 Lymph # (Auto) 1.51 [place] # (Auto) 0.94 H Eos # (Auto) 0.31 Baso # (Auto) 0.02 Sodium Potassium Chloride Carbon Dioxide Anion Gap BUN Creatinine Est Cr Clr Drug Dosing Est GFR ( Amer) Est GFR (Non-Af Amer) BUN/Creatinine Ratio Glucose POC Glucose 137 H 131 H Calcium Phosphorus Magnesium Total Bilirubin Direct Bilirubin AST ALT Alkaline Phosphatase Total Protein Albumin 10/20/18 10/20/18 10/20/18 04:37 07:17 11:13 WBC RBC Hgb Hct MCV MCH MCHC RDW Std Deviation RDW Coeff of Manuela Plt Count MPV Immature Gran % (Auto) Neut % (Auto) Lymph % (Auto) [place] % (Auto) Eos % (Auto) Baso % (Auto) Immature Gran # (Auto) Neut # (Auto) Lymph # (Auto) [place] # (Auto) Eos # (Auto) Baso # (Auto) Sodium 136 Potassium 3.4 L Chloride 98 Carbon Dioxide 32 Anion Gap 6.0 BUN 33 H Creatinine 1.90 H Est Cr Clr Drug Dosing 27.7 Est GFR ( Amer) 28.6 Est GFR (Non-Af Amer) 24.6 BUN/Creatinine Ratio 17.5 Glucose 133 H POC Glucose 151 H 142 H Calcium 8.6 Phosphorus 3.7 Magnesium 2.2 Total Bilirubin 0.3 Direct Bilirubin < 0.1 AST 17 ALT 25 Alkaline Phosphatase 112 Total Protein 6.6 Albumin 2.6 L Diagnostic Findings child monitor notes atrial flutter with 2-1 conduction. _ (1) Atrial flutter Atrial flutter type: unspecified Qualified Code(s): I48.92 - Unspecified atrial flutter
[2018-10-20] MEDS: DIGOXIN 250 MCG in SYRINGE 9 ML IV SCH ×2 (12:14→16:05)
--- NOTE | 2018-10-20 19:23 | Critical Care Progress Note ---
Date of Service October 20, 2018 Assessment & Plan (1) Pleural effusion due to CHF (congestive heart failure): Impression: 1. Coronary artery disease status post PCI, NATY to LAD. 2. CHF with bilateral pleural effusion. Status post thoracentesis bilaterally. 3. A. fib, pacemaker in place, rate controlled. 4. Diabetes. 5. Cardiomyopathy with EF of 45%. 6. Esophageal spasm. Plan: 1. Continue with diuresis. Lasix 80 mg IV every 12 hours. 2. Antiplatelet therapy per cardiology. 3. Discussed with Dr. Benitez, appreciate his input. 4. No need for additional thoracentesis, continue with diuresis, pleural fluid are transudate. 5. Continue PPI. 6. Oxygen supply as needed. 7. Eliquis 2.5 mg p.o. twice daily. 8. Oral intake. 9. Ambulate the patient. 10. Discontinue aspirin as the patient has allergy listed to it. 11. Discussed with the patient in details, all her questions been answered. 12. Disposition of the patient to telemetry floor. Discussed with the staff on rounds and details, critical care time spent with the patient was 35 minutes excluding procedure time. Subjective The patient started to have increasing shortness of breath again, she is concerned about the recurrence of her pleural effusion, she required oxygen early in the morning, her appetite remains borderline. Denies any chest pain at the moment. She did not require oxygen at sedentary position. Review of system otherwise was unremarkable. She continued to have leg edema. Her rate has been better controlled with Cardizem drip. She is in and out a flutter. Physical Exam 2 Vital Signs (Past 24 Hours): Last Vital Signs Temp 36.5 C 10/20/18 12:00 Pulse 86 10/20/18 18:02 Resp 28 H 10/20/18 18:02 BP 115/55 L 10/20/18 18:02 Pulse Ox 94 10/20/18 18:02 Physical Exam: Variable heart rate, up to 120, appears to be in a flutter. When she is bradycardic she is paced properly. No JVP, S1-S2 regular rate and rhythm, decreased breath sounds at the bases, abdomen is benign, edema in the periphery. Neurologically she is intact. Results & Data Laboratory Results Labs were reviewed and are acceptable. Diagnostic Findings Chest x-ray showed development of small bilateral pleural effusion, cardiomegaly , pacemaker wires are in place.
[2018-10-20] MEDS: AMIODARONE 200 MG TAB PO SCH (19:55)
[2018-10-20] MEDS: CLOPIDOGREL BISULFATE 75 MG TAB PO SCH (19:56)
[2018-10-20] MEDS: MAGNESIUM OXIDE 400 MG TAB PO SCH (20:43)
--- NOTE | 2018-10-20 21:36 | Hospitalist Progress Note ---
Date of Service October 20, 2018 Assessment & Plan (1) Acute pulmonary edema with congestive heart failure: As noted below (2) Acute on chronic combined systolic and diastolic CHF (congestive heart failure): Patient was found to be in acute pulmonary edema with signifcant plueral effusion. Patient had thoracocenthesis on 10/18. Total amount of 650 mL of dark yellow fluid was removed Patient is currently receiving lasix IV 80 mg IV BID. (10/20) This began on 10/17 Will monitor Is and Os Patient continues to require oxygen via nasal cannula. 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 (3) NSTEMI (non-ST elevated myocardial infarction): Patient was diagnosed with a NSTEMI. Placed on NATY from cardio cath. Please refer to cath report. Patient was loaded with plavix. will cont. plavix 75 mg PO daily with apixaban, (4) Pleural effusion due to CHF (congestive heart failure): As noted above (5) Chest pain: Patient continues to present with chest pain, she has H/O of RA. Patient is now in ICU. Diagnosed with NSTEMI and treated with NATY. Please read below (6) CAD (coronary artery disease): s/p cath in April 2018 with patent LAD stent and nonobstructive CAD otherwise. Patient had intially 5x tropoinin negative, but with continued chest pain. Her chest pain worsened and her trop increased. However, patient developed NSTEMI on evening of 10/16 going into 10/17. Patient had cath with NATY. Patient will be on plavix and lowered dose of eliquis. Decreased eliquis to 2.5 mg PO BID, due to age, creatinine. (7) Left bundle branch block: chronic. (8) Hypothyroidism: TSH 1 month ago was compensated. Cont synthroid as is. (9) CKD (chronic kidney disease), stage III: creatinine has been about 2 for the last 3 months. creatinine at 1.9 on 10/20 (10) DM II (diabetes mellitus, type II), controlled: check BSGs ac/hs. novolog sliding scale. low threshold for lantus. (11) Pacemaker: interrogation requested by Dr. Alvarez. This was completed. (12) HTN (hypertension): controlled. cont home meds. (13) HLD (hyperlipidemia): she is statin intolerant. (14) Morbid obesity: BMI 36 (15) Atrial flutter: h/o / paroxysmal Patient is currently tachycardic. Placed patient cardizem drip. HR is now better contorlled. May place on dig and wheen on drip in AM. Will continue to monitor pacemaker in place takes eliquis chronically; resumed on 10/15 after EGD (16) Chronic combined systolic and diastolic CHF (congestive heart failure): currently compensated. watch volume status carefully. cont BB not HERMELINDO/ARB candidate due to CKD (17) DVT prophylaxis: Jeanniemableclay spent 35 minutes in management of patient. Subjective Patient is a 78 yo female reports having no pain today. Patient denies any discomfort, chest pain, palpitations. Her HR has improved. Cardiovascular: as per Subjective / HPI, + chest pain, + chest pain at rest, + radiating jaw, neck or arm pain and + dyspnea; no orthopnea, no paroxysmal nocturnal dyspnea and no palpitations Physical Exam 2 Vital Signs (Past 24 Hours): Last Vital Signs Temp 36.5 C 10/20/18 12:00 Pulse 72 10/20/18 20:00 Resp 28 H 10/20/18 18:02 BP 115/55 L 10/20/18 18:02 Pulse Ox 94 10/20/18 18:02 Physical Exam: Constitutional: well developed, well nourished and + obese ; no acute distress. ENMT: external ear and nose normal, oropharynx normal Respiratory: normal respiratory effort, lungs clear to auscultation Cardiovascular: irregular, but rate controlled, Heart Sounds: normal S1, normal S2 and + murmur (2/6 LLSB) no JVD Extremities: no edema Gastrointestinal (Abdomen): Percussion/Palpation: + abdomen tender (high epigastric region to palpation; no chest wall tenderness to palpation ) Musculoskeletal: no cyanosis or clubbing, extremities motor strength 5/5 Psychiatric: A+Ox3, euthymic affect _ (1) CAD (coronary artery disease) Associated angina: with unspecified angina Coronary Disease-Associated Artery /Lesion type: [place] artery [place] vs. transplanted heart: [place] heart Qualified Code(s): I25.119 - Atherosclerotic heart disease of [place] coronary artery with unspecified angina pectoris (2) Atrial flutter Atrial flutter type: unspecified Qualified Code(s): I48.92 - Unspecified atrial flutter (3) HLD (hyperlipidemia) Hyperlipidemia type: mixed hyperlipidemia Qualified Code(s): E78.2 - Mixed hyperlipidemia (4) Hypothyroidism Hypothyroidism type: acquired Qualified Code(s): E03.9 - Hypothyroidism, unspecified (5) DM II (diabetes mellitus, type II), controlled Chronic kidney disease stage: Diabetes mellitus complication detail: with nephropathy Diabetes mellitus complication status: with kidney complications Diabetes mellitus open shank coverer insulin use: with open shank coverer use Diabetes mellitus macular edema: Diabetic retinopathy severity: Laterality: Proliferative retinopathy type: Qualified Code(s): E11.21 - Type 2 diabetes mellitus with diabetic nephropathy; Z79.4 - mailing clerk (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 (6) Chest pain Chest pain type: unspecified Ischemic chest pain type: Qualified Code(s): R07.9 - Chest pain, unspecified (7) HTN (hypertension) Hypertension type: essential hypertension Qualified Code(s): I10 - Essential (primary) hypertension
[2018-10-21] MEDS: dilTIAZem HCl 125 MG in DEXTROSE 5% 100 ML IV SCH ×3 (03:01→19:50)
[2018-10-21] MEDS ORDERED: DIGOXIN 125 MCG in SYRINGE 9.5 ML IV SCH (04:00)
[2018-10-21] MEDS: LEVOTHYROXINE SODIUM 75 MCG TABLET PO SCH (06:18)
[2018-10-21] MEDS: MULTIVITAMIN TAB PO SCH (07:50)
[2018-10-21] MEDS: APIXABAN 2.5 MG TAB PO SCH ×2 (07:50→20:09)
[2018-10-21] MEDS: PANTOprazole 40 MG TAB PO SCH ×2 (07:50→20:09)
[2018-10-21] MEDS: TOCOPHERYL, DL-ALPHA 400 UNITS CAP PO SCH (07:51)
[2018-10-21] MEDS: INSULIN GLARGINE SOLOSTAR 100 UNITS/ML 3 ML PEN SC SCH (07:52)
[2018-10-21] MEDS: INSULIN ASPART 100 UNITS/ML 3 ML PEN SC SCH ×4 (07:56→20:07)
[2018-10-21] MEDS: POTASSIUM CHLORIDE 20 MEQ TABCR PO SCH (08:00)
[2018-10-21] MEDS: FUROSEMIDE 80 MG in SYRINGE 0 ML IV SCH ×2 (09:46→20:08)
[2018-10-21] MEDS: POLYETHYLENE (MIRALAX) 17 GM PACK PO PRN (11:19)
--- NOTE | 2018-10-21 12:29 | Cardiology Progress Note ---
Date of Service October 21, 2018 Assessment & Plan (1) Atrial flutter: She still demonstrates atrial flutter but rate now well controlled with the addition of digoxin. Her diltiazem drip is being weaned today. Would place her on an oral preparation of diltiazem. (2) NSTEMI (non-ST elevated myocardial infarction): The patient underwent deployment of a drug-eluting stent in the mid LAD just distal to her prior stent (which was widely patent). She also demonstrated 40% left main, 40% proximal LCX, 70% ramus intermedius, and a 50% ostial, dominant RCA stenosis. Continue medical management. (3) Chronic combined systolic and diastolic CHF (congestive heart failure): She appears compensated at this time. (4) Left bundle branch block: Stable. (5) Anticoagulant long-term use: She continues to tolerate low-dose Eliquis without hemorrhagic side effects. Subjective The patient is resting comfortably in bed without complaints of chest pain, dyspnea, or palpitations. She has greatly improved over yesterday. Physical Exam 2 Vital Signs (Past 24 Hours): Last Vital Signs Temp 36.7 C 10/21/18 08:00 Pulse 61 10/21/18 08:02 Resp 16 10/21/18 08:02 BP 115/46 L 10/21/18 08:02 Pulse Ox 96 10/21/18 08:02 Physical Exam: In general is well-developed well-nourished elderly white female lying supine in bed without complaints. HEENT exam is negative. Neck is supple with full carotid upstrokes. No carotid bruits. Jugular venous pressure is flat at 90 degrees. There is no thyromegaly. Cardiovascular exam reveals a regular rhythm with a 1/6 basal systolic ejection murmur. No S3. Lungs are clear without rales, rhonchi, or wheezes.. Abdomen is soft without bruits. Extremities reveal intact radial pulses bilaterally. Trace pretibial edema is noted. Results & Data Laboratory Results Laboratory Results - last 24 hr 10/20/18 10/20/18 10/21/18 15:59 19:52 04:51 WBC RBC Hgb Hct MCV MCH MCHC RDW Std Deviation RDW Coeff of Manuela Plt Count MPV Immature Gran % (Auto) Neut % (Auto) Lymph % (Auto) [place] % (Auto) Eos % (Auto) Baso % (Auto) Immature Gran # (Auto) Neut # (Auto) Lymph # (Auto) [place] # (Auto) Eos # (Auto) Baso # (Auto) Sodium Potassium Chloride Carbon Dioxide Anion Gap BUN Creatinine Est Cr Clr Drug Dosing Est GFR ( Amer) Est GFR (Non-Af Amer) BUN/Creatinine Ratio Glucose POC Glucose 156 H 138 H Calcium Total Bilirubin 0.3 Direct Bilirubin < 0.1 AST 14 L ALT 22 Alkaline Phosphatase 108 Total Protein 6.2 L Albumin 2.5 L 10/21/18 10/21/18 10/21/18 07:25 09:21 09:21 WBC 8.33 RBC 3.41 L Hgb 11.3 L Hct 34.4 L MCV 100.9 H MCH 33.1 MCHC 32.8 RDW Std Deviation 49.0 H RDW Coeff of Manuela 13.4 Plt Count 300 MPV 10.9 H Immature Gran % (Auto) 0.2 Neut % (Auto) 74.0 Lymph % (Auto) 13.8 [place] % (Auto) 7.8 Eos % (Auto) 4.0 Baso % (Auto) 0.2 Immature Gran # (Auto) 0.02 Neut # (Auto) 6.16 Lymph # (Auto) 1.15 L [place] # (Auto) 0.65 H Eos # (Auto) 0.33 Baso # (Auto) 0.02 Sodium 136 Potassium 3.8 Chloride 98 Carbon Dioxide 31 Anion Gap 8.0 BUN 39 H Creatinine 2.31 H D Est Cr Clr Drug Dosing 22.9 Est GFR ( Amer) 22.6 Est GFR (Non-Af Amer) 19.5 BUN/Creatinine Ratio 17.0 Glucose 216 H POC Glucose 143 H Calcium 8.5 Total Bilirubin Direct Bilirubin AST ALT Alkaline Phosphatase Total Protein Albumin 10/21/18 11:16 WBC RBC Hgb Hct MCV MCH MCHC RDW Std Deviation RDW Coeff of Manuela Plt Count MPV Immature Gran % (Auto) Neut % (Auto) Lymph % (Auto) [place] % (Auto) Eos % (Auto) Baso % (Auto) Immature Gran # (Auto) Neut # (Auto) Lymph # (Auto) [place] # (Auto) Eos # (Auto) Baso # (Auto) Sodium Potassium Chloride Carbon Dioxide Anion Gap BUN Creatinine Est Cr Clr Drug Dosing Est GFR ( Amer) Est GFR (Non-Af Amer) BUN/Creatinine Ratio Glucose POC Glucose 137 H Calcium Total Bilirubin Direct Bilirubin AST ALT Alkaline Phosphatase Total Protein Albumin Diagnostic Findings case monitor notes atrial flutter with a controlled ventricular response. _ (1) Atrial flutter Atrial flutter type: unspecified Qualified Code(s): I48.92 - Unspecified atrial flutter
--- NOTE | 2018-10-21 12:35 | Pulmonology Progress Note ---
Date of Service October 21, 2018 Assessment & Plan (1) Pleural effusion due to CHF (congestive heart failure): Impression: 1. Coronary artery disease status post PCI, NATY to LAD. 2. CHF with bilateral pleural effusion. Status post thoracentesis bilaterally. 3. A. fib, pacemaker in place, rate controlled. 4. Diabetes. 5. Cardiomyopathy with EF of 45%. 6. Esophageal spasm. Plan: 1. Continue Lasix 80 mg IV every 12 hours. 2. Antiplatelet therapy per cardiology. 3. Transfer to telemetry once bed is available. 4. No need for additional thoracentesis. 5. Continue PPI. 6. Oxygen supply as needed. She may need it available at home as well. 7. Eliquis 2.5 mg p.o. twice daily. 8. Oral intake. 9. Ambulate the patient. 10. Discontinue aspirin as the patient has allergy listed to it. 11. Start diltiazem extended release 240 mg p.o. daily. 12. Wean Cardizem drip to off. Discussed with the staff on rounds and details, critical care time spent with the patient was 35 minutes excluding procedure time. We will follow as needed. Subjective The patient is feeling better, she did not have any events overnight, no shortness of breath, no chest pain, she is on 2 L of oxygen, her O2 sat has been maintained, heart rate is better controlled with digoxin, denies any increased swelling in her lower extremities, no abdominal pain, no change in bowel movements or urine habits. Tolerating her pills. Physical Exam 2 Vital Signs (Past 24 Hours): Last Vital Signs Temp 36.7 C 10/21/18 08:00 Pulse 61 10/21/18 08:02 Resp 16 10/21/18 08:02 BP 115/46 L 10/21/18 08:02 Pulse Ox 96 10/21/18 08:02 Physical Exam: Appears comfortable, vital signs are stable, heart rate 62, remains in a flutter, well controlled, blood pressure 93/62 with a map of 70, respiratory rate of 20, O2 saturation 94% on 2 L nasal cannula, no JVP, no stridor, S1-S2, regular rate and rhythm, pacemaker in place, lungs with minimal crackles and diminished breath sounds at the bases, abdomen is benign, trace edema in the periphery. Neurologically she is intact. Results & Data Laboratory Results Labs were reviewed personally. Diagnostic Findings Chest x-ray showed small recurrence of pleural effusion bilaterally, cardiomegaly, pacemaker in place.
[2018-10-21] MEDS: dilTIAZem HCL 180 MG CAPCR PO SCH (14:16)
[2018-10-21] MEDS: AMIODARONE 200 MG TAB PO SCH (20:09)
[2018-10-21] MEDS: CLOPIDOGREL BISULFATE 75 MG TAB PO SCH (20:09)
[2018-10-21] MEDS: MAGNESIUM OXIDE 400 MG TAB PO SCH (20:45)
--- NOTE | 2018-10-21 21:33 | Hospitalist Progress Note ---
Date of Service October 21, 2018 Assessment & Plan (1) Acute pulmonary edema with congestive heart failure: As noted below (2) Acute on chronic combined systolic and diastolic CHF (congestive heart failure): Patient was found to be in acute pulmonary edema with signifcant plueral effusion. Patient had thoracocenthesis on 10/18. Total amount of 650 mL of dark yellow fluid was removed Patient is currently receiving lasix IV 80 mg IV BID. 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 Will switch patient to PO lasix in AM. (3) NSTEMI (non-ST elevated myocardial infarction): Patient was diagnosed with a NSTEMI. Placed on NATY from cardio cath. Please refer to cath report. Patient was loaded with plavix. will cont. plavix 75 mg PO daily with apixaban, (4) Pleural effusion due to CHF (congestive heart failure): As noted above (5) Chest pain: Patient continues to present with chest pain, she has H/O of RA. Patient is now in ICU. Diagnosed with NSTEMI and treated with NATY. Please read below (6) CAD (coronary artery disease): s/p cath in April 2018 with patent LAD stent and nonobstructive CAD otherwise. Patient had intially 5x tropoinin negative, but with continued chest pain. Her chest pain worsened and her trop increased. However, patient developed NSTEMI on evening of 10/16 going into 10/17. Patient had cath with NATY. Patient will be on plavix and lowered dose of eliquis. Decreased eliquis to 2.5 mg PO BID, due to age, creatinine. (7) Left bundle branch block: chronic. (8) Hypothyroidism: TSH 1 month ago was compensated. Cont synthroid as is. (9) CKD (chronic kidney disease), stage III: creatinine has been about 2 for the last 3 months. creatinine at 2 on 10/21 (10) DM II (diabetes mellitus, type II), controlled: check BSGs ac/hs. novolog sliding scale. low threshold for lantus. (11) Pacemaker: interrogation requested by Dr. Alvarez. This was completed. (12) HTN (hypertension): controlled. cont home meds. (13) HLD (hyperlipidemia): she is statin intolerant. (14) Morbid obesity: BMI 36 (15) Atrial flutter: h/o / paroxysmal Patient is currently tachycardic. Patient being wheened off card drip today, and switch to PO. HR is now better contorlled. Added dig, rate is better controlled. Will continue to monitor pacemaker in place takes eliquis chronically; resumed on 10/15 after EGD (16) Chronic combined systolic and diastolic CHF (congestive heart failure): currently compensated. watch volume status carefully. cont BB not HERMELINDO/ARB candidate due to CKD (17) DVT prophylaxis: Melis spent 35 minutes in management of patient. Subjective Patient reports feeling well. No complaints Cardiovascular: as per Subjective / HPI, + chest pain, + chest pain at rest, + radiating jaw, neck or arm pain and + dyspnea; no orthopnea, no paroxysmal nocturnal dyspnea and no palpitations Physical Exam 2 Vital Signs (Past 24 Hours): Last Vital Signs Temp 36.8 C 10/21/18 16:01 Pulse 63 10/21/18 17:01 Resp 23 10/21/18 17:01 BP 115/56 L 10/21/18 17:01 Pulse Ox 92 10/21/18 17:01 Physical Exam: Constitutional: well developed, well nourished and + obese ; no acute distress. ENMT: external ear and nose normal, oropharynx normal Respiratory: normal respiratory effort, lungs clear to auscultation Cardiovascular: irregular, but rate controlled, Heart Sounds: normal S1, normal S2 and + murmur (2/6 LLSB) no JVD Extremities: no edema Gastrointestinal (Abdomen): Percussion/Palpation: + abdomen tender (high epigastric region to palpation; no chest wall tenderness to palpation ) Musculoskeletal: no cyanosis or clubbing, extremities motor strength 5/5 Psychiatric: A+Ox3, euthymic affect _ (1) Chest pain Chest pain type: unspecified Ischemic chest pain type: Qualified Code(s): R07.9 - Chest pain, unspecified (2) CAD (coronary artery disease) Coronary Disease-Associated Artery/Lesion type: [place] artery [place] vs. transplanted heart: [place] heart Associated angina: with unspecified angina Qualified Code(s): I25.119 - Atherosclerotic heart disease of [place] coronary artery with unspecified angina pectoris (3) Hypothyroidism Hypothyroidism type: acquired Qualified Code(s): E03.9 - Hypothyroidism, unspecified (4) DM II (diabetes mellitus, type II), controlled Diabetes mellitus termite helper insulin use: with custodial use Diabetes mellitus complication status: with kidney complications Diabetes mellitus complication detail: with nephropathy Diabetic retinopathy severity: Proliferative retinopathy type: Diabetes mellitus macular edema: Laterality : Chronic kidney disease stage: Qualified Code(s): E11.21 - Type 2 diabetes mellitus with diabetic nephropathy; Z79.4 - halfway (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 (5) HTN (hypertension) Hypertension type: essential hypertension Qualified Code(s): I10 - Essential (primary) hypertension (6) HLD (hyperlipidemia) Hyperlipidemia type: mixed hyperlipidemia Qualified Code(s): E78.2 - Mixed hyperlipidemia (7) Atrial flutter Atrial flutter type: unspecified Qualified Code(s): I48.92 - Unspecified atrial flutter
[2018-10-22] MEDS: LEVOTHYROXINE SODIUM 75 MCG TABLET PO SCH (06:33)
[2018-10-22] MEDS: INSULIN ASPART 100 UNITS/ML 3 ML PEN SC SCH ×4 (08:34→20:48)
[2018-10-22] MEDS: TOCOPHERYL, DL-ALPHA 400 UNITS CAP PO SCH (08:35)
[2018-10-22] MEDS: PANTOprazole 40 MG TAB PO SCH ×2 (08:35→20:47)
[2018-10-22] MEDS: MULTIVITAMIN TAB PO SCH (08:35)
[2018-10-22] MEDS: dilTIAZem HCL 180 MG CAPCR PO SCH (08:35)
[2018-10-22] MEDS: INSULIN GLARGINE SOLOSTAR 100 UNITS/ML 3 ML PEN SC SCH (08:36)
[2018-10-22] MEDS: APIXABAN 2.5 MG TAB PO SCH ×2 (08:36→20:47)
[2018-10-22] MEDS: dilTIAZem HCl 125 MG in DEXTROSE 5% 100 ML IV SCH (08:40)
[2018-10-22] MEDS: FUROSEMIDE 80 MG in SYRINGE 0 ML IV SCH (09:08)
[2018-10-22] MEDS: POTASSIUM CHLORIDE 20 MEQ TABCR PO SCH (09:09)
--- NOTE | 2018-10-22 12:44 | Hospitalist Progress Note ---
Date of Service October 22, 2018 Assessment & Plan (1) Acute on chronic combined systolic and diastolic CHF (congestive heart failure): Patient was found to be in acute pulmonary edema with signifcant plueral effusion. Patient had bilateral thoracenthesis on 10/18 with right side having 1.1L and left side having 650 mL of dark yellow fluid removed. Feeling much better. - Continue Lasix PO BID - PT/OT today (2) NSTEMI (non-ST elevated myocardial infarction): Patient had continual chest pain on admission. Initially had negative troponins, but then patient was diagnosed with a NSTEMI with peak trop 4.8 on . On 10/17, had a drug-eluting stent placed to the mid-LAD. - On Plavix 75mg PO daily. No aspirin due to allergy. - Continue apixaban 2.5mg PO BID (3) Pleural effusion due to CHF (congestive heart failure): As noted above (4) Left bundle branch block: Chronic. No inpatient needs. (5) Hypothyroidism: TSH 1 month ago was compensated. - Continued home Synthroid 75 mcg. (6) CKD (chronic kidney disease), stage III: Creatinine has been 1.8-1.9 for the last 3 months. - Up to 2.3 on 10/22 - Reduced Lasix as above (7) DM II (diabetes mellitus, type II), controlled: A1c was 6.4% in 07/2018. - Lantus and sliding scale per glycemic management (8) HTN (hypertension): BP well-controlled and stable on current medications. (~110-120/60). - Continue home meds (9) HLD (hyperlipidemia): She is statin intolerant. - Continue Plavix and apixiban as above for CAD (10) Atrial flutter: History of paroxysmal afib/flutter. Initially needed to be on diltiazem gtt. - Curently in normal rate - Continue current meds (11) DVT prophylaxis: Shruthi Subjective Reports feeling more "herself." Overall, doing well. Reports no fevers/chills, chest pain, shortness of breath, abdominal pain, nausea, or vomiting. Physical Exam 2 Vital Signs (Past 24 Hours): Last Vital Signs Temp 36.8 C 10/21/18 16:01 Pulse 61 10/22/18 04:01 Resp 16 10/22/18 04:01 BP 106/55 L 10/22/18 04:01 Pulse Ox 95 10/22/18 04:01 Constitutional: well developed, well nourished and + obese; no acute distress and not ill appearing ENMT: external ear and nose normal, oropharynx normal Respiratory: normal respiratory effort, lungs clear to auscultation Cardiovascular: Rate/Rhythm: regular rate and regular rhythm Heart Sounds: normal S1, normal S2 and + murmur (2/6 LLSB) Vessels: posterior tibial pulses present and dorsalis pedis pulses present; no JVD Extremities: no edema Gastrointestinal (Abdomen): normal bowel sounds, soft, nontender, no hepatosplenomegaly Musculoskeletal: no cyanosis or clubbing, extremities motor strength 5/5 Psychiatric: A+Ox3, euthymic affect _ (1) Hypothyroidism Hypothyroidism type: acquired Qualified Code(s): E03.9 - Hypothyroidism, unspecified (2) DM II (diabetes mellitus, type II), controlled Diabetes mellitus nursing home insulin use: with ad terminal makeup operator use Diabetes mellitus complication status: with kidney complications Diabetes mellitus complication detail: with nephropathy Diabetic retinopathy severity: Proliferative retinopathy type: Diabetes mellitus macular edema: Laterality : Chronic kidney disease stage: Qualified Code(s): E11.21 - Type 2 diabetes mellitus with diabetic nephropathy; Z79.4 - intermodal customer service (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 (4) HLD (hyperlipidemia) Hyperlipidemia type: mixed hyperlipidemia Qualified Code(s): E78.2 - Mixed hyperlipidemia (5) Atrial flutter Atrial flutter type: unspecified Qualified Code(s): I48.92 - Unspecified atrial flutter
[2018-10-22] MEDS ORDERED: Nursing to Pharmacy Communication ONE (14:28)
[2018-10-22] MEDS ORDERED: DIGOXIN 0.125 MG TAB PO SCH (16:00)
[2018-10-22] MEDS: FUROSEMIDE 40 MG TAB PO SCH (18:44)
[2018-10-22] MEDS: AMIODARONE 200 MG TAB PO SCH (20:46)
[2018-10-22] MEDS: CLOPIDOGREL BISULFATE 75 MG TAB PO SCH (20:47)
[2018-10-22] MEDS: MAGNESIUM OXIDE 400 MG TAB PO SCH (20:47)
[2018-10-22] MEDS: POLYETHYLENE (MIRALAX) 17 GM PACK PO PRN (21:35)
[2018-10-23] MEDS: LEVOTHYROXINE SODIUM 75 MCG TABLET PO SCH (06:11)
[2018-10-23] MEDS: PANTOprazole 40 MG TAB PO SCH (07:46)
[2018-10-23] MEDS: MULTIVITAMIN TAB PO SCH (08:35)
[2018-10-23] MEDS: FUROSEMIDE 40 MG TAB PO SCH (08:35)
[2018-10-23] MEDS: APIXABAN 2.5 MG TAB PO SCH (08:35)
[2018-10-23] MEDS: dilTIAZem HCL 180 MG CAPCR PO SCH (08:35)
[2018-10-23] MEDS: POTASSIUM CHLORIDE 20 MEQ TABCR PO SCH (08:35)
[2018-10-23] MEDS: TOCOPHERYL, DL-ALPHA 400 UNITS CAP PO SCH (08:35)
[2018-10-23] MEDS: INSULIN ASPART 100 UNITS/ML 3 ML PEN SC SCH (08:39)
[2018-10-23] MEDS: INSULIN GLARGINE SOLOSTAR 100 UNITS/ML 3 ML PEN SC SCH (08:40)
--- NOTE | 2018-10-23 15:05 | Discharge Summary ---
Date of Service October 23, 2018 Admission HPI Per Admitting Provider 78-year-old female presents via EMS for intermittent chest pain that began about 1 week ago. Initially she says the pain was in her left upper chest and would occur 1-2 times a day for 5-10-minute intervals, self resolving. However , in the past 2 days the severity and duration of pain has been progressively worsening. On day prior to admit (30Dec) she says she woke around 7 AM with the chest pain. She had some acute exacerbations around noon, 4 PM, and again around 10 PM which prompted her call for EMS. She describes it as an intense pain in her left mid chest that radiates into her jaw and left arm. She says she took three of her imdur pills (instead of just the one daily pill) which may have helped. She notes intolerance to morphine (hives) and nitroglycerin ( severe headache). She denies any baseline shortness of breath but does say it was worse with movement recently. She recalls issues with increased fluid retention but says this has resolved on her higher dose of Lasix 80 mg twice a day as well as her watching her salt intake. In the emergency room, patient says that her chest pain has nearly completely resolved after single dose of fentanyl. She denies any shortness of breath or other acute symptoms/concerns outside of some mild worrying about her heart. Principal Diagnosis NSTEMI Discharge Exam Constitutional well developed, well nourished and + obese; no acute distress and not ill appearing ENMT external ear and nose normal, oropharynx normal Respiratory normal respiratory effort, lungs clear to auscultation Cardiovascular Rate/Rhythm: regular rate and regular rhythm Heart Sounds: normal S1, normal S2 and + murmur (2/6 LLSB) Vessels: posterior tibial pulses present and dorsalis pedis pulses present; no JVD Extremities: no edema Gastrointestinal (Abdomen) normal bowel sounds, soft, nontender, no hepatosplenomegaly Musculoskeletal no cyanosis or clubbing, extremities motor strength 5/5 Psychiatric A+Ox3, euthymic affect Discharge Data Allergies Allergy/AdvReac Type Severity Reaction Status Date / Time adhesive Allergy Unknown REDNESS Verified 10/14/18 02:01 AND IRRITATION FROM PAIN PATCH, TAPE latex Allergy Unknown ALLERGIC Verified 10/14/18 02:01 TO LATEX TAPE/RASH/ITCHING morphine Allergy Unknown swelling Verified 10/14/18 02:01 nausea vomiting olmesartan Allergy Unknown UNKNOWN Verified 10/14/18 02:01 exenatide [From Byetta] Allergy Unknown Verified 10/14/18 02:01 glyburide Allergy Unknown Verified 10/14/18 02:01 metformin Allergy Unknown Verified 10/14/18 02:01 sitagliptin [From Januvia] Allergy Unknown Verified 10/14/18 02:01 aspirin AdvReac Mild GI SYMPTOMS Verified 10/14/18 02:01 ezetimibe AdvReac Mild MUSCLE Verified 10/14/18 02:01 ACHES lisinopril AdvReac Unknown LIGHTHEADED Verified 10/14/18 02:01 AND DIZZY pioglitazone AdvReac Unknown DIARRHEA Verified 10/14/18 02:01 NAUSEA [id number]-[id number] Reductase AdvReac Unknown myalgias Verified 10/14/18 02:01 Inhibitor and weakness Consultations 10/17/18 03:27 Consult Clean Rice Grader And Reel Tender Routine 10/17/18 05:29 Consult Case Management - Discharge Planning Routine 10/14/18 01:50 ED Decision to Admit Stat 10/14/18 05:28 Consult Cardiology Routine 10/15/18 09:51 Consult Gastroenterology Routine Procedures Performed Operation Date: 10/15/18 08:25 Actual Procedures p Esophagogastroduodenoscopy - Aurelio Ennis Operation Date: 10/17/18 09:30 Actual Procedures s Cineradiography w/Routine Exam(Not Applicable) - Pascual Bateman MD p Cath, Left with Cors and Vent(Not Applicable) - Pascual Sanchez MD s Drug Eluting Stent SGl Vessel(Not Applicable) - Pascual Bateman MD s IVUS Coronary Single Vessel - Pascual Bateman MD Ordered Studies 10/16/18 08:38 US abdomen complete Routine 10/17/18 01:08 CT angio chest PE protocol Urgent 10/17/18 09:01 CL Cath Imgs for PACS use only Routine 10/17/18 15:22 CL IVUS Coronary Single Vessel Routine 10/14/18 12:58 CT chest wo con Urgent Hospital Course (1) Acute on chronic combined systolic and diastolic CHF (congestive heart failure): Patient was found to be in acute pulmonary edema with signifcant plueral effusion. Patient had bilateral thoracenthesis on 10/18 with right side having 1.1L and left side having 650 mL of dark yellow fluid removed. Feeling much better. - Continued her Lasix PO BID - On discharge, she was doing well, walking around the room and doing her full toileting without assistance. Discharged home. (2) NSTEMI (non-ST elevated myocardial infarction): Patient had continual chest pain on admission. Initially had negative troponins, but then patient was diagnosed with a NSTEMI with peak trop 4.8 on . On 10/17, had a drug-eluting stent placed to the mid-LAD. - On Plavix 75mg PO daily. No aspirin due to allergy. - Continued apixaban 2.5mg PO BID - Will follow up with outpatient cardiology (3) Pleural effusion due to CHF (congestive heart failure): As noted above (4) Left bundle branch block: Chronic. No inpatient needs. (5) Hypothyroidism: TSH 1 month ago was compensated. - Continued home Synthroid 75 mcg. (6) CKD (chronic kidney disease), stage III: Creatinine has been 1.8-1.9 for the last 3 months. - Up to 2.3 on 10/22, but improved to 2.2 on 10/23. - Reduced Lasix as above - Will need BMP with PCP or cardiology office at next visit. (7) DM II (diabetes mellitus, type II), controlled: A1c was 6.4% in 07/2018. - Lantus and sliding scale per glycemic management (8) HTN (hypertension): BP well-controlled and stable on current medications. (~110-120/60). - Continued meds - Held amlodipine and labetalol in favor of diltiazem and digoxin (9) HLD (hyperlipidemia): She is statin intolerant. - Continue Plavix and apixiban as above for CAD (10) Atrial flutter: History of paroxysmal afib/flutter. Initially needed to be on diltiazem gtt. - Curently in normal rate - Continue current meds - diltiazem and dogoxin (11) Esophageal spasm: EGD done due to chest pain. Spasm noted on EGD on 10/15. Started on PPI in case spasm was related to GERD. Discharged on PPI. Total Time Total Time Spent Total Time Spent (In Minutes): 45 Total Time Includes: Examination of the Patient, Discharge Planning and Medication Reconciliation Discharge Plan Discharge Items Patient Disposition: Home - Self-Care Reason For Visit: ACS Discharge Diagnosis: Pulmonary edema and heart attack Discharge Goals: Decrease discomfort and Improve function Activity: Resume your previous activity Non-emergency contact: Primary Care Provider and Cruise Staff Member Call non-emergency contact if: you have any medication questions, your symptoms worsen and your pain is unusual for you Follow-up/Referrals: Teto Pena PA-C [Physician] - 11/05/18 2:30 pm (Please, follow up at [facility] Cardiology Office with Teto Pena PA-C on MondayNovember 05 at 2:30 pm. *This office is located in [address] of The [facility] - big building next to this hospital. If you need to change this appointment, call the office at [phone].) Boby Reddy MD [Primary Care Provider] - 10/29/18 10:00 am (Please, follow up at Dr. Reddy's office w/ his refinery operator assistant, Antonia Gerber PA-C, on MondayOctober 29 at 10:00 am. *If you need to change this appointment, call the office at [phone].) Diet: Heart Healthy Addtl Provider Instructions: Ms. Barry, You were admitted to the hospital with chest pain that was likely from a blockage in your heart. You had a stent done which improved your chest pain. We are keeping you on your Plavix to help keep the stent open. We also lowered your Eliquis to a half-dose to help prevent any bleeding. These will help keep your heart healthy. Your heart went into a rhythm called "atrial flutter" which can cause fast heart rates. We started you on two medications to prevent your heart rate from going very fast. One is called digoxin and one is called diltiazem. These are each once a day medications. Please stop taking your amlodipine and labetalol as they could make your blood pressure go too low with the new medications. The new medications have been sent to your pharmacy. Please come back to the hospital with any concerning symptoms such as further chest pain, shortness of breath, dizziness, lightheadedness, or any other concerns. Prescriptions: New diltiazem HCl 180 mg Capsule,Extended Release 24hr 180 mg PO QAM Qty: 30 RF: 0 pantoprazole 40 mg Tablet,Delayed Release (Dr/Ec) 40 mg PO DAILY Qty: 30 RF: 0 digoxin 125 mcg Tablet 0.125 mg PO DAILY@1600 Qty: 30 RF: 0 Continue amiodarone 200 mg Tablet 200 mg PO QPM RF: 0 clopidogrel [Plavix] 75 mg Tablet 75 mg PO QPM RF: 0 multivitamin [Multiple Vitamins] Tablet 1 tab PO DAILY RF: 0 levothyroxine 75 mcg Tablet 75 mcg PO QAM RF: 0 garlic Tablet 1 tab PO QAM RF: 0 potassium chloride 20 mEq Tablet Extended Release 20 meq PO QAM RF: 0 magnesium oxide 400 mg Capsule 400 mg PO QPM RF: 0 vitamin E 400 unit Capsule 400 unit PO QAM RF: 0 triamcinolone acetonide 0.1 % Cream 1 applic Topical BID PRN (Reason: Rash) RF: 0 insulin asp prt-insulin aspart [Novolog Mix 70-30 U-100 Insuln] 100 unit/mL ( 70-30) Solution subcut AMPM RF: 0 isosorbide mononitrate 30 mg tablet extended release 24 hr 30 mg PO QAM RF: 0 albuterol sulfate 90 mcg/actuation HFA aerosol inhaler 2 puff Inhalation QID PRN (Reason: Shortness Of Breath Or Wheezing) RF: 0 Changed furosemide 80 mg tablet 40 mg PO AMPM Qty: 0 RF: 0 apixaban [Eliquis] 5 mg Tablet 2.5 mg PO BID Qty: 0 RF: 0 Discontinued amlodipine 5 mg Tablet 5 mg PO QAM RF: 0 ranitidine HCl 150 mg Tablet 150 mg PO DAILY PRN (Reason: Gi Upset) RF: 0 labetalol 300 mg tablet 75 mg PO QPM RF: 0 Visit Report Forms: My [facility] Stand-Alone Forms: My [facility] Discharge Orders: Discharge Order (Routine); Ordered 10/23/18 Ordered By: Gabe Guzman Admission Data Admit Date/Time: 10/14/18 03:46 Attending Provider: Gabe Guzman Admit Provider: Valentino Lagos Primary Care Provider: Boby Reddy Other Providers: Fracisco Dan ; Davion Alvarez ; Mason Davidson ; Cullen Salazar Service: Medical Other Interventions: Discharge Summary Assessment (RN) Last Done: 10/23/18 12:07 DC Date/Time DO NOT enter until pt leaves facility: 10/23/18 12:59
== END 2018-10-23 12:59 | disposition home or self-care (01) | DRG 246 ==
LOC: ED 00:23 → 2S 03:46 → SUATTDRO 03:46 → 2S 04:32 → 1E 10-17 04:02 → 3N 10-22 17:04
DX: Z79.01 Long term (current) use of anticoagulants; I25.5 Ischemic cardiomyopathy; Z82.49 Family history of ischemic heart disease and other diseases of the circulatory system; I50.43 Acute on chronic combined systolic (congestive) and diastolic (congestive) heart failure; K22.4 Dyskinesia of esophagus; E66.01 Morbid (severe) obesity due to excess calories; E78.2 Mixed hyperlipidemia; Z88.5 Allergy status to narcotic agent; Z68.36 Body mass index [BMI] 36.0-36.9, adult; Z79.02 Long term (current) use of antithrombotics/antiplatelets; I13.0 Hypertensive heart and chronic kidney disease with heart failure and stage 1 through stage 4 chronic kidney disease, or unspecified chronic kidney disease; Z88.6 Allergy status to analgesic agent; E11.22 Type 2 diabetes mellitus with diabetic chronic kidney disease; E03.9 Hypothyroidism, unspecified; I48.0 Paroxysmal atrial fibrillation; I21.4 Non-ST elevation (NSTEMI) myocardial infarction; T82.855A Stenosis of coronary artery stent, initial encounter; I24.8 Other forms of acute ischemic heart disease; I48.92 Unspecified atrial flutter; N18.3 Chronic kidney disease, stage 3 (moderate); I27.20 Pulmonary hypertension, unspecified; Z79.899 Other long term (current) drug therapy; Z79.4 Long term (current) use of insulin; K21.9 Gastro-esophageal reflux disease without esophagitis; Z86.718 Personal history of other venous thrombosis and embolism; Z95.5 Presence of coronary angioplasty implant and graft; R74.8 Abnormal levels of other serum enzymes; Z95.0 Presence of cardiac pacemaker; Z88.8 Allergy status to other drugs, medicaments and biological substances; I95.9 Hypotension, unspecified; Z91.048 Other nonmedicinal substance allergy status; I08.0 Rheumatic disorders of both mitral and aortic valves; J96.01 Acute respiratory failure with hypoxia; I44.7 Left bundle-branch block, unspecified; K44.9 Diaphragmatic hernia without obstruction or gangrene; Z91.040 Latex allergy status; K29.70 Gastritis, unspecified, without bleeding

== ENCOUNTER 2018-11-14 06:10 | Inpatient (IN) ==
[2018-11-14] MEDS ORDERED: FUROSEMIDE 40 MG/4 ML VIAL IV STA ×2 (06:26→08:41)
--- NOTE | 2018-11-14 06:26 | Emergency Department Note ---
ED Provider Note Name: Ban Barry Age: 78 yr old Female Arrives Via: EMS Informant: EMS (pt too Short of Breath to give history) CC: Shortness of breath HPI: 78 female arrives for evaluation of shortness of breath. Patient with long history of CHF who arrives from home after worsening SHOB this evening. Assocaited with left chest pain. CP improving with CPAP en route. No other medications prior to arrival. Nothing makes better nor worse. Further information not obtained secondary to difficulty with patient breathing Per hospital chart patient with recent admission for CHF with NSTEMI. She has history of Afib. Is on Apixaban, plavix. Allergic to aspirin. She required diuresis and thoracentesis at that time. ROS: See above HPI for pertinent positives & negatives. Full ROS unable to obtain secondary to respiratory issue. Past Medical History: CHF, NSTEMI, Pleural effusions, Hypothyroid, LBBB, CKD, DMII, HTN, HLD, AFlutter Past Surgical History: Pacemaker Family History: Unable to obtain Social History: Unable to obtain Home Medications: Diltiazem, pantoprazole, digoxin, amiodarone, plavix, levothyroxine, Kchlor, garlic, magnesium, vit e, imdur, albuterol hfa, furosemid , apixaban Allergies Unknown due to shob Physical: Vitals: BP 141/128, P 107, R 26, T 36.5, O2 93% on BIPAP Exam: GENERAL: Patient is very unwell appearing and in severe distress. EYES: No scleral icterus, unremarkable pupils. ENT: Mucous membranes moist, no nasal congestion. NECK: No masses appreciated, no meningismus, trachea is midline. RESPIRATORY: Diffusely wet lung sounds with severe respitory distress CARDIOVASCULAR: Tachy. No murmurs, rubs, gallops appreciated. GASTROINTESTINAL: Abdomen soft, non-tender, no peritonitis. Bowel sounds positive. No masses appreciated. BACK: No midline tenderness, no CVA tenderness EXTREMITIES: Normal motion all extremities, no cyanosis, 2+ edema bilateral legs. NEUROLOGIC: Alert and oriented, no acute motor or sensory deficits, no focal weakness, cranial nerves grossly intact. SKIN: No rash, no jaundice, no diaphoresis. ED Course: Prior Medical Record, Triage/Nursing Notes, Medications, Allergies reviewed by Me Vital Signs: reviewed and remarkable for HTN, Tachy Labs: Reviewed and remarkable for [] Interventions: IV lock, Bipap, Lasix 40mg IV, Fentanyl 25mcg IV, Zofran 4mg IV Imaging: X ray results are stated below per my interpretation: Chest: 1 view: Diffuse pulm edema with bilateral effusions and pacer left upper chest. Unable to see old CXR for comparison EKG: Per My Interpretation: Sinus tach at 101 with 1st av block and no extopy nor ischemia. LBBB. EKG similar to 09/2018. Consults: Dr Rueda at 7:20a accepts for evaluation. Reassessments/Times: Multiple times from arrival to admission Blood pressure: [Elevated - Referred to Hospitalist - Ary to be Situation. Disposition: Admit to hospitalist Prescriptions: none Differentials: CHF, Pulm edema, acs, dissection, pneumothorax, renal failure, infection amongst other pathologies. Medical Decision Making: Unwell 78 yr old female arrives in acute respiratory failure with pulm edema by examination. Confirmed with CXR. Bipap started on arrival as CPAP by EMS. She was given early 40mg IV lasix. She was given small dose fentanyl as continued chest pain which in past has improved with fentanyl as well, along with dose of zofran for this. EKG with LBBB similar to previous EKGs. She is appearing much improved with BiPAP. Hospitalist consulted for further management. I do not feel this is PE given she is on anticoagulation and has other clear cause of symptoms. Impression: Pulmonary Edema Acute Respiratory Failure Critical Care Time: I have personally spent greater than 30 minutes of critical care time in the direct management of this patient. Pulmonary edema with acute respiratory failure on BiPAP. This was a life/limb threatening event. This includes time spent evaluating patient, direct bedside care, chart review, placing orders, interpretation of diagnostic studies, discussion with consultants, patient, and family members, as well as other required patient management activities. This 30 minutes is in excess of all separately billable procedures. 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 Atrial flutter Morbid obesity HLD (hyperlipidemia) HTN (hypertension) Surgical History Pacemaker Presence of stent in LAD coronary artery Family History Other Pacemaker Social History Current Living Situation: Alone Other Information That Helps Us Care for You: No Feels Safe at Home: Yes Safety Concerns: Feels Safe At This Time Smoking Status: Never smoker Second Hand Exposure: No Hx Alcohol Use: No Hx Substance Use: No Beliefs That Will Affect Care: None Preferred Language: German Communication Ability: Effective Results & Data Vital Signs Vital Signs - 24 hr 11/14/18 06:21 11/14/18 06:28 11/14/18 06:29 Temperature 35.9 C L Temperature Source Axillary Sepsis Recent Fever Within 48 Hours No Sepsis Action Taken by Nursing No Action Required Pulse Rate 99 H 107 H Pulse Rate [Apical] Pulse Rate [Bilateral Apical] Pulse Rhythm Irregular Pulse Rhythm [Bilateral Apical] Respiratory Rate 24 26 H Respiratory Effort / Characteristics Labored Respiratory Depth Deep Respiratory Pattern Rapid/Deep Blood Pressure 141/128 H Blood Pressure [Left Arm] Blood Pressure [Right Arm] Blood Pressure Mean 132 Blood Pressure Mean [Left Arm] Blood Pressure Mean [Right Arm] Blood Pressure Position [Left Arm] Blood Pressure Position [Right Arm] Pulse Oximetry 93 93 93 Oxygen Delivery Method BiPAP BiPAP BiPAP Oxygen Flow Rate Fraction of Inspired Oxygen 50 SaO2/FiO2 Ratio 11/14/18 06:31 11/14/18 06:49 11/14/18 06:51 Temperature 36.5 C Temperature Source Oral Sepsis Recent Fever Within 48 Hours Sepsis Action Taken by Nursing Pulse Rate 95 H Pulse Rate [Apical] Pulse Rate [Bilateral Apical] 92 H Pulse Rhythm Pulse Rhythm [Bilateral Apical] Regular Respiratory Rate 22 Respiratory Effort / Characteristics Labored Respiratory Depth Deep Respiratory Pattern Blood Pressure 93/87 L Blood Pressure [Left Arm] 93/87 L Blood Pressure [Right Arm] Blood Pressure Mean 89 Blood Pressure Mean [Left Arm] 89 Blood Pressure Mean [Right Arm] Blood Pressure Position [Left Arm] Blood Pressure Position [Right Arm] Pulse Oximetry 89 L 94 Oxygen Delivery Method BiPAP Oxygen Flow Rate Fraction of Inspired Oxygen SaO2/FiO2 Ratio 11/14/18 07:01 11/14/18 07:08 11/14/18 07:45 Temperature Temperature Source Sepsis Recent Fever Within 48 Hours Sepsis Action Taken by Nursing Pulse Rate 83 81 Pulse Rate [Apical] Pulse Rate [Bilateral Apical] 85 Pulse Rhythm Pulse Rhythm [Bilateral Apical] Respiratory Rate 22 Respiratory Effort / Characteristics Respiratory Depth Respiratory Pattern Blood Pressure Blood Pressure [Left Arm] 176/104 H Blood Pressure [Right Arm] Blood Pressure Mean 99 Blood Pressure Mean [Left Arm] 128 Blood Pressure Mean [Right Arm] Blood Pressure Position [Left Arm] Blood Pressure Position [Right Arm] Pulse Oximetry 94 92 95 Oxygen Delivery Method BiPAP Oxygen Flow Rate Fraction of Inspired Oxygen SaO2/FiO2 Ratio 11/14/18 08:05 11/14/18 08:32 11/14/18 08:46 Temperature Temperature Source Sepsis Recent Fever Within 48 Hours Sepsis Action Taken by Nursing Pulse Rate 76 82 Pulse Rate [Apical] Pulse Rate [Bilateral Apical] Pulse Rhythm Pulse Rhythm [Bilateral Apical] Respiratory Rate Respiratory Effort / Characteristics Short of Breath SOB on Exertion Respiratory Depth Deep Respiratory Pattern Blood Pressure 158/119 H 144/77 H Blood Pressure [Left Arm] Blood Pressure [Right Arm] Blood Pressure Mean 132 99 Blood Pressure Mean [Left Arm] Blood Pressure Mean [Right Arm] Blood Pressure Position [Left Arm] Blood Pressure Position [Right Arm] Pulse Oximetry 97 96 Oxygen Delivery Method BiPAP Oxygen Flow Rate Fraction of Inspired Oxygen SaO2/FiO2 Ratio 11/14/18 08:48 11/14/18 08:50 11/14/18 08:52 Temperature Temperature Source Sepsis Recent Fever Within 48 Hours Sepsis Action Taken by Nursing Pulse Rate 83 Pulse Rate [Apical] Pulse Rate [Bilateral Apical] 84 Pulse Rhythm Pulse Rhythm [Bilateral Apical] Respiratory Rate 16 Respiratory Effort / Characteristics Respiratory Depth Respiratory Pattern Blood Pressure 144/77 H Blood Pressure [Left Arm] 144/77 H Blood Pressure [Right Arm] Blood Pressure Mean 99 Blood Pressure Mean [Left Arm] 99 Blood Pressure Mean [Right Arm] Blood Pressure Position [Left Arm] Blood Pressure Position [Right Arm] Pulse Oximetry 93 93 96 Oxygen Delivery Method BiPAP Oxygen Flow Rate Fraction of Inspired Oxygen SaO2/FiO2 Ratio 11/14/18 09:30 11/14/18 10:05 11/14/18 10:20 Temperature 36.5 C Temperature Source Oral Sepsis Recent Fever Within 48 Hours Sepsis Action Taken by Nursing Pulse Rate 84 97 H 86 Pulse Rate [Apical] Pulse Rate [Bilateral Apical] 84 Pulse Rhythm Pulse Rhythm [Bilateral Apical] Irregular Respiratory Rate 18 14 22 Respiratory Effort / Characteristics Spontaneous Labored Labored Respiratory Depth Normal Shallow Respiratory Pattern Regular Regular Blood Pressure 143/95 H Blood Pressure [Left Arm] Blood Pressure [Right Arm] 118/90 Blood Pressure Mean Blood Pressure Mean [Left Arm] Blood Pressure Mean [Right Arm] 99 Blood Pressure Position [Left Arm] Blood Pressure Position [Right Arm] Sitting Pulse Oximetry 94 95 97 Oxygen Delivery Method BiPAP BiPAP Oxygen Flow Rate 12 Fraction of Inspired Oxygen 50 50 SaO2/FiO2 Ratio 194 11/14/18 11:00 11/14/18 12:00 11/14/18 13:00 Temperature 36.6 C Temperature Source Oral Sepsis Recent Fever Within 48 Hours Sepsis Action Taken by Nursing Pulse Rate Pulse Rate [Apical] 81 Pulse Rate [Bilateral Apical] 75 75 Pulse Rhythm Pulse Rhythm [Bilateral Apical] Respiratory Rate 20 22 Respiratory Effort / Characteristics Non-Labored Respiratory Depth Normal Respiratory Pattern Regular Blood Pressure Blood Pressure [Left Arm] 149/87 H Blood Pressure [Right Arm] 151/84 H 123/71 Blood Pressure Mean Blood Pressure Mean [Left Arm] 107 Blood Pressure Mean [Right Arm] 106 88 Blood Pressure Position [Left Arm] Sitting Blood Pressure Position [Right Arm] Pulse Oximetry 98 96 96 Oxygen Delivery Method BiPAP BiPAP BiPAP Oxygen Flow Rate Fraction of Inspired Oxygen 50 50 SaO2/FiO2 Ratio 196 192 11/14/18 14:00 11/14/18 15:00 Temperature 36.5 C Temperature Source Oral Sepsis Recent Fever Within 48 Hours Sepsis Action Taken by Nursing Pulse Rate Pulse Rate [Apical] 83 83 Pulse Rate [Bilateral Apical] Pulse Rhythm Pulse Rhythm [Bilateral Apical] Respiratory Rate 20 Respiratory Effort / Characteristics Non-Labored Respiratory Depth Normal Respiratory Pattern Regular Blood Pressure Blood Pressure [Left Arm] 148/89 H 139/83 Blood Pressure [Right Arm] Blood Pressure Mean Blood Pressure Mean [Left Arm] 108 101 Blood Pressure Mean [Right Arm] Blood Pressure Position [Left Arm] Lying Lying Blood Pressure Position [Right Arm] Pulse Oximetry 97 98 Oxygen Delivery Method BiPAP BiPAP Oxygen Flow Rate Fraction of Inspired Oxygen 50 SaO2/FiO2 Ratio 194 Laboratory Data Result diagrams: 11/14/18 06:25 11/14/18 06:25 Lab Results 11/14/18 11/14/18 11/14/18 Range/Units 06:25 06:25 06:25 WBC 13.91 H (4.8-10.8) K/uL RBC 4.03 L (4.2-5.4) M/uL Hgb 13.4 (12.0-16.0) g/dL Hct 41.3 (37-47) % MCV 102.5 H (80-100) fL MCH 33.3 (25-34) pg MCHC 32.4 (32-36) g/dL RDW Std Deviation 55.2 H (36.4-46.3) fL RDW Coeff of Manuela 14.9 H (11.5-14.5) % Plt Count 305 (130-400) K/uL MPV 11.2 H (7.4-10.4) fL Immature Gran % (Auto) 0.2 % Neut % (Auto) 63.1 % Lymph % (Auto) 25.5 % Ashley % (Auto) 8.5 % Eos % (Auto) 2.3 % Baso % (Auto) 0.4 % Immature Gran # (Auto) 0.03 H (0.00-0.02) K/uL Neut # (Auto) 8.78 H (1.4-6.5) K/uL Lymph # (Auto) 3.55 H (1.2-3.4) K/uL Ashley # (Auto) 1.18 H (0.11-0.59) K/uL Eos # (Auto) 0.32 (0-0.5) K/uL Baso # (Auto) 0.05 (0-0.2) K/uL PT 10.6 (9.0-12.0) Seconds INR 1.1 (0.9-1.1) ABG pH (7.35-7.45) ABG pCO2 (35-46) mmHg ABG pO2 (80-95) mm/Hg ABG HCO3 (19-24) mmol/L ABG O2 Saturation (90-95) % ABG Base Excess (-9-1.8) mEq/L Alexander Test (Pos) Barometric Pressure mm/Hg Oxygen Given Sodium 136 (136-145) mmol/L Potassium 3.7 (3.5-5.1) mmol/L Chloride 100 (98-107) mmol/L Carbon Dioxide 30 (21-32) mmol/L Anion Gap 6.0 (3-11) BUN 26 H (7-18) mg/dl Creatinine 2.16 H (0.6-1.2) mg/dl Est Cr Clr Drug Dosing 25.3 ml/min Est GFR ( Amer) 24.5 Est GFR (Non-Af Amer) 21.1 BUN/Creatinine Ratio 12.1 (10-20) Glucose 228 H (70-99) mg/dl POC Glucose (70-99) Lactate (0.4-2.0) mmol/L Calcium 9.1 (8.5-10.1) mg/dl Magnesium 2.7 H (1.8-2.4) mg/dl Total Bilirubin 0.6 (0.2-1) mg/dl Direct Bilirubin 0.1 (0-0.2) mg/dl AST 43 H (15-37) U/L ALT 50 (12-78) U/L Alkaline Phosphatase 168 H (45-117) U/L Troponin I 0.061 H* (0-0.045) ng/ml NT-Pro-B Natriuret Pep 2920 H (0-1800) pg/ml Total Protein 8.1 (6.4-8.2) gm/dl Albumin 3.8 (3.4-5.0) gm/dl Nasal Screen MRSA (PCR) (Negative) Digoxin (0.8-2.0) ng/ml 11/14/18 11/14/18 11/14/18 Range/Units 06:25 06:25 06:42 WBC (4.8-10.8) K/uL RBC (4.2-5.4) M/uL Hgb (12.0-16.0) g/dL Hct (37-47) % MCV (80-100) fL MCH (25-34) pg MCHC (32-36) g/dL RDW Std Deviation (36.4-46.3) fL RDW Coeff of Manuela (11.5-14.5) % Plt Count (130-400) K/uL MPV (7.4-10.4) fL Immature Gran % (Auto) % Neut % (Auto) % Lymph % (Auto) % Ashley % (Auto) % Eos % (Auto) % Baso % (Auto) % Immature Gran # (Auto) (0.00-0.02) K/uL Neut # (Auto) (1.4-6.5) K/uL Lymph # (Auto) (1.2-3.4) K/uL Ashley # (Auto) (0.11-0.59) K/uL Eos # (Auto) (0-0.5) K/uL Baso # (Auto) (0-0.2) K/uL PT (9.0-12.0) Seconds INR (0.9-1.1) ABG pH 7.39 (7.35-7.45) ABG pCO2 50 H (35-46) mmHg ABG pO2 62 L (80-95) mm/Hg ABG HCO3 30 H (19-24) mmol/L ABG O2 Saturation 90.7 (90-95) % ABG Base Excess 3.7 H (-9-1.8) mEq/L Alexander Test Pos (Pos) Barometric Pressure 726.3 mm/Hg Oxygen Given 50% Sodium (136-145) mmol/L Potassium (3.5-5.1) mmol/L Chloride (98-107) mmol/L Carbon Dioxide (21-32) mmol/L Anion Gap (3-11) BUN (7-18) mg/dl Creatinine (0.6-1.2) mg/dl Est Cr Clr Drug Dosing ml/min Est GFR ( Amer) Est GFR (Non-Af Amer) BUN/Creatinine Ratio (10-20) Glucose (70-99) mg/dl POC Glucose (70-99) Lactate 1.5 (0.4-2.0) mmol/L Calcium (8.5-10.1) mg/dl Magnesium (1.8-2.4) mg/dl Total Bilirubin (0.2-1) mg/dl Direct Bilirubin (0-0.2) mg/dl AST (15-37) U/L ALT (12-78) U/L Alkaline Phosphatase (45-117) U/L Troponin I (0-0.045) ng/ml NT-Pro-B Natriuret Pep (0-1800) pg/ml Total Protein (6.4-8.2) gm/dl Albumin (3.4-5.0) gm/dl Nasal Screen MRSA (PCR) (Negative) Digoxin 1.0 (0.8-2.0) ng/ml 11/14/18 11/14/18 Range/Units 10:00 12:08 WBC (4.8-10.8) K/uL RBC (4.2-5.4) M/uL Hgb (12.0-16.0) g/dL Hct (37-47) % MCV (80-100) fL MCH (25-34) pg MCHC (32-36) g/dL RDW Std Deviation (36.4-46.3) fL RDW Coeff of Manuela (11.5-14.5) % Plt Count (130-400) K/uL MPV (7.4-10.4) fL Immature Gran % (Auto) % Neut % (Auto) % Lymph % (Auto) % Ashley % (Auto) % Eos % (Auto) % Baso % (Auto) % Immature Gran # (Auto) (0.00-0.02) K/uL Neut # (Auto) (1.4-6.5) K/uL Lymph # (Auto) (1.2-3.4) K/uL Ashley # (Auto) (0.11-0.59) K/uL Eos # (Auto) (0-0.5) K/uL Baso # (Auto) (0-0.2) K/uL PT (9.0-12.0) Seconds INR (0.9-1.1) ABG pH (7.35-7.45) ABG pCO2 (35-46) mmHg ABG pO2 (80-95) mm/Hg ABG HCO3 (19-24) mmol/L ABG O2 Saturation (90-95) % ABG Base Excess (-9-1.8) mEq/L Alexander Test (Pos) Barometric Pressure mm/Hg Oxygen Given Sodium (136-145) mmol/L Potassium (3.5-5.1) mmol/L Chloride (98-107) mmol/L Carbon Dioxide (21-32) mmol/L Anion Gap (3-11) BUN (7-18) mg/dl Creatinine (0.6-1.2) mg/dl Est Cr Clr Drug Dosing ml/min Est GFR ( Amer) Est GFR (Non-Af Amer) BUN/Creatinine Ratio (10-20) Glucose (70-99) mg/dl POC Glucose 231 H (70-99) Lactate (0.4-2.0) mmol/L Calcium (8.5-10.1) mg/dl Magnesium (1.8-2.4) mg/dl Total Bilirubin (0.2-1) mg/dl Direct Bilirubin (0-0.2) mg/dl AST (15-37) U/L ALT (12-78) U/L Alkaline Phosphatase (45-117) U/L Troponin I (0-0.045) ng/ml NT-Pro-B Natriuret Pep (0-1800) pg/ml Total Protein (6.4-8.2) gm/dl Albumin (3.4-5.0) gm/dl Nasal Screen MRSA (PCR) Negative (Negative) Digoxin (0.8-2.0) ng/ml Administered Medications Apixaban (Eliquis) 5 mg PO BID [facility] Stop: 12/14/18 08:59 Last Admin: 11/14/18 10:37 Dose: 5 mg Pantoprazole Sodium 40 mg/ (Syringe) 10 mls @ 5 mls/min IV DAILY@1100 [facility] Stop: 12/14/18 10:59 Last Admin: 11/14/18 10:37 Dose: 5 mls/min Insulin Aspart (Novolog Flexpen) 0 units SC Q6 [facility] Stop: 12/14/18 11:59 Last Admin: 11/14/18 12:45 Dose: 3 units Discontinued Medications Apixaban (Eliquis) 2.5 mg PO BID [facility] Stop: 12/14/18 08:59 Last Admin: 11/14/18 10:50 Dose: Not Given Fentanyl Citrate (Fentanyl Citrate) 25 mcg IV NOW STA Stop: 11/14/18 06:37 Last Admin: 11/14/18 06:42 Dose: 25 mcg Furosemide (Lasix) 40 mg IV NOW STA Stop: 11/14/18 06:27 Last Admin: 11/14/18 06:31 Dose: 40 mg Furosemide (Lasix) 40 mg IV NOW STA Stop: 11/14/18 08:42 Last Admin: 11/14/18 12:45 Dose: 40 mg Hydromorphone HCl (Dilaudid) 0.5 mg IV NOW STA Stop: 11/14/18 15:15 Last Admin: 11/14/18 15:19 Dose: 0.5 mg Hydromorphone HCl (Dilaudid) Confirm Administered Dose 0.5 mg .ROUTE .STK-MED ONE Stop: 11/14/18 15:17 Last Admin: 11/14/18 15:18 Dose: Not Given Insulin Glargine (Lantus Solostar Pen) 10 units SC NOW ONE; Protocol Stop: 11/14/18 11:46 Last Admin: 11/14/18 12:21 Dose: 10 units Nitroglycerin (Nitrostat) Confirm Administered Dose 0.4 mg .ROUTE .STK-MED ONE Stop: 11/14/18 08:34 Last Admin: 11/14/18 08:34 Dose: 0.4 mg Ondansetron HCl (Zofran) 4 mg IV NOW STA Stop: 11/14/18 06:46 Last Admin: 11/14/18 06:48 Dose: 4 mg Ondansetron HCl (Zofran) Confirm Administered Dose 4 mg .ROUTE .STK-MED ONE Stop: 11/14/18 06:47 Last Admin: 11/14/18 06:48 Dose: Not Given Discharge Plan Visit Data *Final* Discharge Date/Time: 11/14/18 09:30 Chief Complaint: Respiratory Distress ED Provider: Darek Canales Discharge Problem: Pulmonary edema, Acute respiratory failure Patient Disposition: Admitted As Inpatient Discharge Instructions Interventions: ED Discharge Assessment Last Done: 11/14/18 09:30
[2018-11-14] MEDS ORDERED: fentaNYL citrate 100 MCG/2 ML VIAL IV STA (06:36)
[2018-11-14 06:44] LABS: Basophils # (auto) 0.05 K/uL (0-0.2); Basophils % (auto) 0.4 %; Eosinophils # (auto) 0.32 K/uL (0-0.5); Eosinophils % (auto) 2.3 %; Hematocrit (blood only) 41.3 % (37-47); Hemoglobin 13.4 g/dL (12.0-16.0); Immature Granulocytes # (auto) 0.03 K/uL (0.00-0.02); Immature Granulocytes % (auto) 0.2 %; Lymphocytes # (auto) 3.55 K/uL (1.2-3.4); Lymphocytes % (auto) 25.5 %; Mean Corpuscular Hgb Conc 32.4 g/dL (32-36); Mean Corpuscular Volume 102.5 fL (80-100); Mean Platelet Volume 11.2 fL (7.4-10.4); Monocytes # (auto) 1.18 K/uL (0.11-0.59); Monocytes % (auto) 8.5 %; Neutrophils # (auto) 8.78 K/uL (1.4-6.5); Neutrophils % (auto) 63.1 %; Platelet Count 305 K/uL (130-400); RDW Coefficient of Variation 14.9 % (11.5-14.5); RDW Standard Deviation 55.2 fL (36.4-46.3); Red Blood Count 4.03 M/uL (4.2-5.4); White Blood Count 13.91 K/uL (4.8-10.8)
[2018-11-14] MEDS ORDERED: ONDANSETRON INJ 2 MG/ML 2 ML VIAL IV STA (06:45)
[2018-11-14] MEDS ORDERED: ONDANSETRON INJ 2 MG/ML 2 ML VIAL ONE (06:46)
[2018-11-14 06:58] LABS: Albumin Level 3.8 gm/dl (3.4-5.0); BUN Creatinine Ratio 12.1 (10-20); Bilirubin Direct 0.1 mg/dl (0-0.2); Calcium 9.1 mg/dl (8.5-10.1); Creatinine Clr Calc Pharmacy 25.3 ml/min; Est GFR (African American) 24.5; Est GFR (Non-African American) 21.1; Magnesium 2.7 mg/dl (1.8-2.4); Potassium 3.7 mmol/L (3.5-5.1)
[2018-11-14 06:58] LABS: HCO3 ABG 30 mmol/L (19-24); Oxygen Saturation ABG 90.7 % (90-95); PCO2 ABG 50 mmHg (35-46); PO2 ABG 62 mm/Hg (80-95); pH ABG 7.39 (7.35-7.45)
--- NOTE | 2018-11-14 06:58 | XRay Report ---
XR chest 1V portable CLINICAL HISTORY: 78 years-old Female presenting with Resp Failure. TECHNIQUE: Portable upright AP view of the chest was obtained. COMPARISON: None. FINDINGS: Left subclavian pacer with leads to the right atrium and right ventricular apex. Atherosclerosis of t he aortic arch. Cardiac silhouette enlarged. Pulmonary vascular prominence. Bronchial wall thickening evident. Perihilar and bibasilar opacity with poor aeration of the right lung base. Moderate right a nd trace left pleural effusions. No pneumothorax. Degenerative changes of the thoracic spine. Upper a bdomen normal. IMPRESSION: 1. Cardiomegaly with volume overload/congestive change and moderate pulmonary edema. 2. Moderate right and trace left pleural effusions. Electronically signed by: Kin Vail M.D. 11/14/2018 6:56 AM
[2018-11-14 07:00] LABS: Allen Test Pos (Pos)
[2018-11-14 07:08] LABS: Bilirubin,Total 0.6 mg/dl (0.2-1); INR 1.1 (0.9-1.1); Prothrombin Time 10.6 Seconds (9.0-12.0); Total Protein 8.1 gm/dl (6.4-8.2); Troponin I 0.061 ng/ml (0-0.045)
[2018-11-14] MEDS ORDERED: NITROGLYCERIN SL 0.4 MG/TAB TAB ONE (08:33)
[2018-11-14] MEDS ORDERED: ICU PROTOCOL FOR HYPERGLYCEMIA PRN (08:46)
[2018-11-14] MEDS ORDERED: APIXABAN 5 MG TABLET PO SCH ×2 (09:00→21:00)
--- NOTE | 2018-11-14 09:20 | History & Physical Report ---
Date of Service November 14, 2018 Assessment & Plan (1) Acute respiratory failure with hypoxia: Patient is to be admitted to the Intensive care unit. Patient currently is in respiratory failure and requires continuous BiPAP. Ashlie recevied 40 mg of IV lasix int he ED. Will order an additional amount of IV lasix. Will hold beta estephania, dig and lacho inhibitor in this acute phase of her CHF. Patietnt also has pleural effusion Will see if patient improves with diuretics, if not may need tapped. 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 - CAD: On home Plavix. Has allergy to ASA. - Paroxysmal atrial flutter: Held betablocker On home amiodarone. --- Held home apixaban while on heparin. - CKD stage III: Admit Cr 2.03, similar to prior. - Diabetes type 2: Last HbA1c in Jul 2018 was 6.4. Will monitor glucose here. - Hypothyroidism: On home synthroid. - GERD: Rarely symptomatic per patient. On home ranitidine. - Hypertension: held meds due to acute systolic heart failure - Hyperlipidemia: Has allergies to statins. - Moderate MR, mild-moderate . Spent 40 minutes in critical care time. From 8:50 to 9:30 Spent 60 minutes in management of patient. (2) Pulmonary edema: (3) Acute on chronic combined systolic and diastolic CHF (congestive heart failure): (4) Pleural effusion due to CHF (congestive heart failure): (5) DM II (diabetes mellitus, type II), controlled: (6) CKD (chronic kidney disease), stage III: (7) HTN (hypertension): History of Present Illness Chief Complaint: SOB upon exertion Primary Care Provider: Boby Reddy MD 7Ms. Jhonny is a 78-year-old female with a past medical history significant for coronary artery disease s/p NATY to mid LAD 10/2017 and NATY prox to mid LAD 10/17, ischemic cardiomyopathy (EF 45-50%), chronic combined CHF, paroxysmal atrial flutter, mild aortic stenosis, mild to moderate mitral regurgitation, diabetes mellitus, CKD, hypothyroidism, carotid artery stenosis s/p bilateral carotid endarterectomies, peripheral arterial disease (mild-moderate disease in right SFA and 100% right anterior tibial stenosis in 05/2017), and symptomatic sinus bradycardia s/p dual-chamber pacemaker implantation 05/14/2018. On her previous admission, she presented to [facility] on 10/14/2018 with intermittent chest discomfort radiating to her left arm and jaw for several days. The discomfort was increasing in frequency and duration. Her initial troponins were negative. She was admitted for further evaluation, and had recurrent discomfort during her hospitalization requiring nitro infusion. Troponins bumped with a peak of 4.78. Cardiac catheterization on 10/17/2018 showed the following results: 1. Left main: Distal 40%. 2. Left anterior descending: Subtotal occlusion in its proximal portion just before the previously stented area. The stent appeared widely patent. Single diagonal branch distal to the stent with proximal 40% ostial stenosis. 3. Left circumflex: Proximal 40% stenosis at maximum. 4. Ramus intermedius: 70% stenosis at its ostium 5. Right coronary artery: 50% ostial stenosis. She underwent successful PCI of proximal to mid LAD with single drug-eluting stent which overlapped the proximal aspect of prior mid LAD stent (3.0 x 22 mm resolute). She was placed on Plavix in addition to Eliquis (she has ASA allergy) . Eliquis dose was reduced during admission given CKD. She developed atrial flutter with 2-1 AV conduction during admission requiring infusion of IV diltiazem and digoxin. The medications were converted to PO upon discharge and amlodipine as well as labetalol were stopped. Patient was also found to have acute pulmonary edema with significant pleural effusion and underwent bilateral thoracentesis during admission. She was deemed stable for discharge 10/23/2018. She was seen for hospital follow-up on 10/31/2018. At that time, she reported aching chest discomfort in association with palpitations since hospital discharge. She self-discontinued her Diltiazem, and her symptoms resolved. She was subsequently initiated on carvedilol 3.125 mg BID. Her Eliquis dose was increased back up to 5 mg BID given the fact that she is <80 years old and her weight is >60 kg. A digoxin level was also checked, which was elevated at 1.4, therefore, her dose was decreased to M/W/F dosing. [facility] where she complained of chest pain, shortness of breath, and palpitations. She states that she has noted a constant left sided chest discomfort and left forearm pain. Yesterday, the discomfort worsened, especially when she was up ambulating. She also began noting shortness of breath, which was present at rest and worsened with exertion. She always sleeps with the head of her bed elevated at night, but she noted that she would become short of breath throughout the night Patient also reports palpitations where she can feel her heart beating fast at times and then a pause. Her heart rate was elevated in the 110s when checking at home yesterday and BP was elevated in the 150s/100s. She reports that she has restarted her labetalol despite being on coreg. She reports some mild orthostatic lightheadedness, but she denies syncope or presyncope. He denies abnormal bleeding such as melena, hematochezia, or hematuria. She denies fevers. The Caridologist stated to continue her meds and started verapmil in hopes of controlling her symptoms and heart rate. She was to see DR. Irizarry this Monday but was advised to come to the hospital if her sympotms worsened, which they did. She states now that her SOB is at rest even when sitting up. Allergies Allergy/AdvReac Type Severity Reaction Status Date / Time adhesive Allergy Unknown REDNESS Verified 11/14/18 08:09 AND IRRITATION FROM PAIN PATCH, TAPE dulaglutide [From Trulicity] Allergy Unknown Unknown Verified 11/14/18 08:09 glipizide Allergy Unknown Unknown Verified 11/14/18 08:09 latex Allergy Unknown ALLERGIC Verified 11/14/18 08:09 TO LATEX TAPE/RASH/ITCHING morphine Allergy Unknown swelling Verified 11/14/18 08:09 nausea vomiting olmesartan Allergy Unknown UNKNOWN Verified 11/14/18 08:09 exenatide [From Byetta] Allergy Unknown Verified 11/14/18 08:09 glyburide Allergy Unknown Verified 11/14/18 08:09 metformin Allergy Unknown Verified 11/14/18 08:09 sitagliptin [From Januvia] Allergy Unknown Verified 11/14/18 08:09 aspirin AdvReac Mild GI SYMPTOMS Verified 11/14/18 08:09 ezetimibe AdvReac Mild MUSCLE Verified 11/14/18 08:09 ACHES lisinopril AdvReac Unknown LIGHTHEADED Verified 11/14/18 08:09 AND DIZZY pioglitazone AdvReac Unknown DIARRHEA Verified 11/14/18 08:09 NAUSEA Ewnnffk-Lhd-Oue Reductase AdvReac Unknown myalgias Verified 11/14/18 08:09 Inhibitor and weakness statins Allergy Unknown Unknown Uncoded 11/14/18 08:09 Home Medications Home Medications Medication Instructions Recorded Confirmed Type amiodarone 200 mg PO QPM 06/17/18 10/14/18 History clopidogrel [Plavix] 75 mg PO QPM 06/17/18 10/14/18 History garlic 1 tab PO QAM 06/17/18 10/14/18 History insulin asp prt-insulin aspart 0 units SUBCUT AMPM 06/17/18 10/14/18 History [Novolog Mix 70-30 U-100 Insuln] levothyroxine 75 mcg PO QAM 06/17/18 10/14/18 History magnesium oxide 400 mg PO QPM 06/17/18 10/14/18 History multivitamin [Multiple Vitamins] 1 tab PO DAILY 06/17/18 10/14/18 History potassium chloride 20 meq PO QAM 06/17/18 10/14/18 History triamcinolone acetonide 1 applic TOPICAL BID PRN 06/17/18 10/14/18 History vitamin E 400 unit PO QAM 06/17/18 10/14/18 History albuterol sulfate 2 puff INHALATION QID PRN 10/14/18 10/14/18 History isosorbide mononitrate 30 mg PO QAM 10/14/18 10/14/18 History apixaban [Eliquis] 2.5 mg PO BID #0 tab 10/23/18 10/14/18 Rx digoxin 0.125 mg PO DAILY@1600 #30 tab 10/23/18 Rx diltiazem HCl 180 mg PO QAM #30 cap 10/23/18 Rx furosemide 40 mg PO AMPM #0 tab 10/23/18 10/14/18 Rx pantoprazole 40 mg PO DAILY #30 tab 10/23/18 Rx albuterol sulfate 2 puff INHALATION Q6H PRN 11/14/18 11/14/18 History amiodarone 200 mg PO QPM 11/14/18 11/14/18 History apixaban [Eliquis] 5 mg PO BID 11/14/18 11/14/18 History carvedilol 3.125 mg PO BID 11/14/18 11/14/18 History clopidogrel [Plavix] 75 mg PO QPM 11/14/18 11/14/18 History collagenase clostridium histo. 1 applic TOPICAL DAILY PRN 11/14/18 11/14/18 History [Santyl] digoxin 0.125 mg PO 3XWK 11/14/18 11/14/18 History furosemide [Lasix] 40 mg PO BID 11/14/18 11/14/18 History garlic 1,000 mg PO QAM 11/14/18 11/14/18 History insulin asp prt-insulin aspart 1 sliding scale dose SUBCUT AMPM 11/14/18 History [Novolog Mix 70-30 U-100 Insuln] isosorbide mononitrate 30 mg PO QAM 11/14/18 11/14/18 History labetalol 75 mg PO QPM 11/14/18 11/14/18 History levothyroxine 75 mcg PO DAILY 11/14/18 11/14/18 History magnesium oxide 400 mg PO QPM 11/14/18 11/14/18 History multivitamin [Multiple Vitamins] 1 tab PO DAILY 11/14/18 11/14/18 History potassium chloride 20 meq PO DAILY 11/14/18 11/14/18 History triamcinolone acetonide 1 applic TOPICAL DAILY PRN 11/14/18 11/14/18 History verapamil 120 mg PO PM 11/14/18 11/14/18 History vitamin E 400 unit PO DAILY 11/14/18 11/14/18 History Past Med/Surg History Medical History GERD (gastroesophageal reflux disease) Hypothyroidism Left bundle branch block Hypothyroid CKD (chronic kidney disease), stage III DM II (diabetes mellitus, type II), controlled Bilateral carotid artery stenosis Congestive heart failure 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 Atrial flutter Morbid obesity HLD (hyperlipidemia) HTN (hypertension) Surgical History Pacemaker Presence of stent in LAD coronary artery Family History Other Pacemaker Social History Current Living Situation: Alone Other Information That Helps Us Care for You: No Feels Safe at Home: Yes Safety Concerns: Feels Safe At This Time Smoking Status: Never smoker Second Hand Exposure: No Hx Alcohol Use: No Hx Substance Use: No Beliefs That Will Affect Care: None Communication Ability: Effective Review of Systems Constitutional: no fever, no sweats and no body aches Eyes: no diplopia and no discharge Ear, Nose, Mouth, Throat: no ear pain and no tinnitus Respiratory: + cough, + chest congestion, + dyspnea on exertion and + wheezing Cardiovascular: + chest pain at rest, + dyspnea, + dyspnea at rest, + palpitations and + edema Musculoskeletal: no back pain Neurologic: no gait abnormality, no falls and no paralysis Psychiatric: no hopelessness Endocrine: + fatigue Hematologic / Lymphatic: no easy bleeding Physical Exam 2 Vital Signs (Past 24 Hours): Last Vital Signs Temp 36.5 C 11/14/18 06:31 Pulse 83 11/14/18 08:52 Resp 16 11/14/18 08:50 BP 144/77 H 11/14/18 08:50 Pulse Ox 96 11/14/18 08:52 Physical Exam: GENERAL: Awake, alert, well-appearing, in moderate distress on continuous BiPAP. HENT: Normocephalic, atraumatic. Oropharynx unremarkable. EYES: Normal conjunctiva. Sclera non-icteric. NECK: Inspection normal. Non-tender. Supple and full ROM. No nuchal rigidity. CARDIAC: +S1S2 RRR, 2/6 systolic murmurs. Left upper chest pacemaker in place. RESPIRATORY: decreased breath sounds with rales up to 2/3 of right lung and rales in lower third of left lung. GI: +BS, soft, non-distended. No tenderness to palpation. No rebound or guarding. No appreciable masses. EXTREMITIES: No pedal edema or calf tenderness. Moving all extremities naturally and easily. NEURO: No gross neuro deficits. Code Status & VTE Plan Code Status full code Critical Care Time 40 minutes Critical Care Time: Yes Total Critical Care Time: 40 _ (1) Pulmonary edema Chronicity: acute Qualified Code(s): J81.0 - Acute pulmonary edema (2) DM II (diabetes mellitus, type II), controlled Chronic kidney disease stage: Diabetes mellitus complication detail: with nephropathy Diabetes mellitus complication status: with kidney complications Diabetes mellitus snf insulin use: with paving contractor use Diabetes mellitus macular edema: Diabetic retinopathy severity: Laterality: Proliferative retinopathy type: Qualified Code(s): E11.21 - Type 2 diabetes mellitus with diabetic nephropathy; 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
[2018-11-14] MEDS ORDERED: PHARMACY GLYCEMIC MGMT CONSULT PRN (09:36)
[2018-11-14] MEDS: APIXABAN 5 MG TABLET PO SCH ×2 (10:37→21:25)
[2018-11-14] MEDS: PANTOprazole 40 MG in SYRINGE 0 ML IV SCH (10:37)
--- NOTE | 2018-11-14 11:37 | Cardiology Consultation ---
Date of Consultation November 14, 2018 Assessment & Plan (1) Acute respiratory failure with hypoxia: The patient presented with evidence of pulmonary edema. She has an effusion as well. Her weight is up and she has an element of renal dysfunction. She did respond to BiPAP. She did receive a dose of diuretic and her diuresis should continue in order to affect improvement in her symptoms and pulmonary congestion. Based on her response to therapy she may need to have her effusion drained. We will need to monitor her electrolytes and renal function closely. At the time of discharge will need to decide on a diuretic regimen. Perhaps she would do better with bumetanide or torsemide. The etiology of her decompensation is unclear. She was in atrial flutter since discharge. However, her ventricular rates appear to have been adequately controlled. She does not report dietary indiscretion. There was some changing of her medical therapy on an outpatient basis. It is unclear if that resulted in worsening LV function or edema. I do not believe she has had an intercede and acute coronary event. This is not supported by her serum studies. Present on Admission?: Yes (2) Aortic stenosis, mild: This appears to be stable. No significant change on her echocardiogram performed today. Not playing a role in her decompensation. Present on Admission?: Yes (3) Cardiomyopathy: This is felt to be of an ischemic etiology. Patient has been maintained on labetalol and was recently started on carvedilol. She will only require 1 agent moving forward. I think continuation of her carvedilol would be most beneficial. She is not on an Sudhir inhibitor ARB due to a history of intolerance and renal dysfunction. She is on isosorbide as an outpatient and we could entertain the possibility of adding hydralazine or an alpha antagonist. Present on Admission?: Yes (4) Left bundle branch block: Chronic. Her echocardiogram did suggest an element of dyssynchrony involving the septum which could be related to her conduction abnormality. For continued symptoms associated with her cardiomyopathy, an upgrade to a biventricular device could be considered. Present on Admission?: Yes (5) Atrial flutter: She is currently in a sinus rhythm. Most of the time she appeared to have been in atrial flutter. Overall ventricular rates appear to be adequately controlled. I did activate some of her device therapies today in the hopes that this would prevent additional episodes of atrial flutter. She is on amiodarone. She was recently started on verapamil in the hopes of achieving adequate rate control since she discontinued diltiazem on her own. She will continue anticoagulation with Eliquis. This appears to be dosed correctly. Present on Admission?: No (6) Pacemaker: Normally functioning dual-chamber permanent pacemaker. Atrial therapies activated today. Present on Admission?: Yes (7) Coronary artery disease: Patient recently underwent percutaneous intervention to the LAD. She has not had any recurrence of her index symptoms noticed at her last admission. However, she does have epigastric and precordial chest discomfort. This appears to be more pleuritic in nature. Certainly worse with deep inspiration and improved with leaning forward. I suppose it is possible that she has an element of pericarditis. Her biomarkers appear to be trending downward. She did have an elevation at the time of her last admission. Given the severe nature an extended duration of her symptoms last evening I would have expected some elevation in these markers currently if she had had recurrent coronary insufficiency. She will continue on Eliquis and Plavix. Also on beta- blockade. She has a known intolerance to statin therapy. (8) Valvular heart disease: She has what appears to be severe mitral regurgitation. Undoubtedly this compromises her overall cardiac function. However, given her degree of LV systolic dysfunction she does not appear to be a good candidate for an intervention. She has mild aortic stenosis which appears to be stable. History of Present Illness Reason for Consultation: CHF Requesting Physician: Marybeth Attending Physician: Bhanu Rueda History of Present Illness Patient is a 78-year-old woman with a history of an ischemic cardiomyopathy and associated coronary artery disease who was recently discharged from [facility] after an acute coronary syndrome and evidence of congestive heart failure. During that admission the patient is also noted to have atrial flutter. Since discharge the patient has been struggling with some element of dyspnea. This appeared to be fairly mild earlier in the week but over the past day became much more severe. Patient had difficulty performing even minor activity without becoming severely dyspneic. Last night she also experienced significant epigastric discomfort and eructation. This symptom was distinct from the discomfort she had during her prior admission. At that time she had more left upper chest and arm discomfort. This discomfort is more localized to the epigastric region but does generalize into the precordium. This chest discomfort appears to be less intense with leaning forward and more intense with deep inspiration. The patient could not lie flat to sleep. She presented to [facility] this morning was felt to have pulmonary edema and placed on BiPAP. She was given a diuretic dose and since admission has felt mildly better. Generally speaking the patient is able perform mild activity without dyspnea. For the past week she claims to have gained 4 pounds. She did not report any increase in her lower extremity edema. She has made several medication changes since discharge. She did discontinue diltiazem. She was started on carvedilol and may have continued her labetalol as well. She also increased her diuretic dose to Lasix 80 milligrams twice daily. Allergies Allergy/AdvReac Type Severity Reaction Status Date / Time adhesive Allergy Unknown REDNESS Verified 11/14/18 08:09 AND IRRITATION FROM PAIN PATCH, TAPE dulaglutide [From Trulicity] Allergy Unknown Unknown Verified 11/14/18 08:09 glipizide Allergy Unknown Unknown Verified 11/14/18 08:09 latex Allergy Unknown ALLERGIC Verified 11/14/18 08:09 TO LATEX TAPE/RASH/ITCHING morphine Allergy Unknown swelling Verified 11/14/18 08:09 nausea vomiting olmesartan Allergy Unknown UNKNOWN Verified 11/14/18 08:09 exenatide [From Byetta] Allergy Unknown Verified 11/14/18 08:09 glyburide Allergy Unknown Verified 11/14/18 08:09 metformin Allergy Unknown Verified 11/14/18 08:09 sitagliptin [From Januvia] Allergy Unknown Verified 11/14/18 08:09 aspirin AdvReac Mild GI SYMPTOMS Verified 11/14/18 08:09 ezetimibe AdvReac Mild MUSCLE Verified 11/14/18 08:09 ACHES lisinopril AdvReac Unknown LIGHTHEADED Verified 11/14/18 08:09 AND DIZZY pioglitazone AdvReac Unknown DIARRHEA Verified 11/14/18 08:09 NAUSEA T[place]zi-Okk-Wis Reductase AdvReac Unknown myalgias Verified 11/14/18 08:09 Inhibitor and weakness statins Allergy Unknown Unknown Uncoded 11/14/18 08:09 Home Medications Home Medications Medication Instructions Recorded Confirmed Type amiodarone 200 mg PO QPM 06/17/18 10/14/18 History clopidogrel [Plavix] 75 mg PO QPM 06/17/18 10/14/18 History garlic 1 tab PO QAM 06/17/18 10/14/18 History insulin asp prt-insulin aspart 0 units SUBCUT AMPM 06/17/18 10/14/18 History [Novolog Mix 70-30 U-100 Insuln] levothyroxine 75 mcg PO QAM 06/17/18 10/14/18 History magnesium oxide 400 mg PO QPM 06/17/18 10/14/18 History multivitamin [Multiple Vitamins] 1 tab PO DAILY 06/17/18 10/14/18 History potassium chloride 20 meq PO QAM 06/17/18 10/14/18 History triamcinolone acetonide 1 applic TOPICAL BID PRN 06/17/18 10/14/18 History vitamin E 400 unit PO QAM 06/17/18 10/14/18 History albuterol sulfate 2 puff INHALATION QID PRN 10/14/18 10/14/18 History isosorbide mononitrate 30 mg PO QAM 10/14/18 10/14/18 History apixaban [Eliquis] 2.5 mg PO BID #0 tab 10/23/18 10/14/18 Rx digoxin 0.125 mg PO DAILY@1600 #30 tab 10/23/18 Rx diltiazem HCl 180 mg PO QAM #30 cap 10/23/18 Rx furosemide 40 mg PO AMPM #0 tab 10/23/18 10/14/18 Rx pantoprazole 40 mg PO DAILY #30 tab 10/23/18 Rx albuterol sulfate 2 puff INHALATION Q6H PRN 11/14/18 11/14/18 History amiodarone 200 mg PO QPM 11/14/18 11/14/18 History apixaban [Eliquis] 5 mg PO BID 11/14/18 11/14/18 History carvedilol 3.125 mg PO BID 11/14/18 11/14/18 History clopidogrel [Plavix] 75 mg PO QPM 11/14/18 11/14/18 History collagenase clostridium histo. 1 applic TOPICAL DAILY PRN 11/14/18 11/14/18 History [Santyl] digoxin 0.125 mg PO 3XWK 11/14/18 11/14/18 History furosemide [Lasix] 40 mg PO BID 11/14/18 11/14/18 History garlic 1,000 mg PO QAM 11/14/18 11/14/18 History insulin asp prt-insulin aspart 1 sliding scale dose SUBCUT AMPM 11/14/18 History [Novolog Mix 70-30 U-100 Insuln] isosorbide mononitrate 30 mg PO QAM 11/14/18 11/14/18 History labetalol 75 mg PO QPM 11/14/18 11/14/18 History levothyroxine 75 mcg PO DAILY 11/14/18 11/14/18 History magnesium oxide 400 mg PO QPM 11/14/18 11/14/18 History multivitamin [Multiple Vitamins] 1 tab PO DAILY 11/14/18 11/14/18 History potassium chloride 20 meq PO DAILY 11/14/18 11/14/18 History triamcinolone acetonide 1 applic TOPICAL DAILY PRN 11/14/18 11/14/18 History verapamil 120 mg PO PM 11/14/18 11/14/18 History vitamin E 400 unit PO DAILY 11/14/18 11/14/18 History Patient History Medical History GERD (gastroesophageal reflux disease) Hypothyroidism Left bundle branch block Hypothyroid CKD (chronic kidney disease), stage III DM II (diabetes mellitus, type II), controlled Bilateral carotid artery stenosis Congestive heart failure 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 Pertinent positives known history present illness. Patient not report any subjective fevers or chills. No coughing. No lower extremity edema. No dietary indiscretion. She did have some mild dizziness when getting up rapidly. No presyncope or syncope. Physical Exam 2 Vital Signs (Past 24 Hours): Last Vital Signs Temp 36.5 C 11/14/18 10:20 Pulse 84 11/14/18 10:20 Resp 22 11/14/18 10:20 BP 118/90 11/14/18 10:20 Pulse Ox 97 11/14/18 10:20 Physical Exam: She is alert and oriented x3. Mood affect appear normal. She answered all questions appropriately. Using BiPAP. Speaking in full sentences. HEENT: Sclerae are anicteric. Pupils are equal and reactive to light and accommodation. Extraocular movements were intact. Neuro: Cranial nerves intact Neck: Examination of the submandibular region did not reveal any significant lymphadenopathy. Carotids are palpable bilaterally and free of bruits on auscultation. The thyroid was not enlarged. Lungs: Reduced excursion. Crackles throughout all lung humphries. No expiratory wheezing. Cardiac: The rhythm was regular. S1 and S2 were normal. There are no murmurs on examination. The PMI was not markedly displaced on palpation. Abdomen: The abdomen was soft and nontender. Extremities: Patient has bilateral radial pulses that are equal in intensity. There is no evidence cyanosis or clubbing. There was no evidence of significant peripheral edema bilaterally. Skin: There are no rashes noted on examination today. Results & Data Laboratory Results Abnormal Lab Results 11/14/18 11/14/18 11/14/18 06:25 06:25 06:25 WBC 13.91 H RBC 4.03 L Hgb 13.4 Hct 41.3 MCV 102.5 H MCH 33.3 MCHC 32.4 RDW Std Deviation 55.2 H RDW Coeff of Manuela 14.9 H Plt Count 305 MPV 11.2 H Immature Gran % (Auto) 0.2 Neut % (Auto) 63.1 Lymph % (Auto) 25.5 Sebastian % (Auto) 8.5 Eos % (Auto) 2.3 Baso % (Auto) 0.4 Immature Gran # (Auto) 0.03 H Neut # (Auto) 8.78 H Lymph # (Auto) 3.55 H Sebastian # (Auto) 1.18 H Eos # (Auto) 0.32 Baso # (Auto) 0.05 PT 10.6 INR 1.1 ABG pH ABG pCO2 ABG pO2 ABG HCO3 ABG O2 Saturation ABG Base Excess Alexander Test Barometric Pressure Oxygen Given Sodium 136 Potassium 3.7 Chloride 100 Carbon Dioxide 30 Anion Gap 6.0 BUN 26 H Creatinine 2.16 H Est Cr Clr Drug Dosing 25.3 Est GFR ( Amer) 24.5 Est GFR (Non-Af Amer) 21.1 BUN/Creatinine Ratio 12.1 Glucose 228 H Lactate Calcium 9.1 Magnesium 2.7 H Total Bilirubin 0.6 Direct Bilirubin 0.1 AST 43 H ALT 50 Alkaline Phosphatase 168 H Troponin I 0.061 H* NT-Pro-B Natriuret Pep 2920 H Total Protein 8.1 Albumin 3.8 Digoxin 11/14/18 11/14/18 11/14/18 06:25 06:25 06:42 WBC RBC Hgb Hct MCV MCH MCHC RDW Std Deviation RDW Coeff of Manuela Plt Count MPV Immature Gran % (Auto) Neut % (Auto) Lymph % (Auto) Sebastian % (Auto) Eos % (Auto) Baso % (Auto) Immature Gran # (Auto) Neut # (Auto) Lymph # (Auto) Sebastian # (Auto) Eos # (Auto) Baso # (Auto) PT INR ABG pH 7.39 ABG pCO2 50 H ABG pO2 62 L ABG HCO3 30 H ABG O2 Saturation 90.7 ABG Base Excess 3.7 H Alexander Test Pos Barometric Pressure 726.3 Oxygen Given 50% Sodium Potassium Chloride Carbon Dioxide Anion Gap BUN Creatinine Est Cr Clr Drug Dosing Est GFR ( Amer) Est GFR (Non-Af Amer) BUN/Creatinine Ratio Glucose Lactate 1.5 Calcium Magnesium Total Bilirubin Direct Bilirubin AST ALT Alkaline Phosphatase Troponin I NT-Pro-B Natriuret Pep Total Protein Albumin Digoxin 1.0 Diagnostic Findings Chest x-ray obtained at the time admission suggested pulmonary edema I performed a complete device interrogation of her dual-chamber [employer] pacemaker. Normal function. She appears to be mostly in atrial flutter but converted sometime last evening and is currently in a sinus rhythm. Overall rate control during atrial flutter appears to have been adequate. An echocardiogram performed this morning reveals moderate to severely reduced LV systolic function, slightly worse than that noted during her last admission. She has severe mitral regurgitation and mild aortic stenosis. ECG Additional Comments: Sinus rhythm with left bundle branch block _ (1) Atrial flutter Atrial flutter type: unspecified Qualified Code(s): I48.92 - Unspecified atrial flutter
[2018-11-14] MEDS ORDERED: INSULIN GLARGINE SOLOSTAR 100 UNITS/ML 3 ML PEN SC ONE ×3 (11:45→21:00)
[2018-11-14] MEDS: INSULIN ASPART 100 UNITS/ML 3 ML PEN SC SCH ×2 (12:45→16:56)
--- NOTE | 2018-11-14 14:26 | Pharmacy Report ---
Glycemic Control Consultation - Date of Service November 14, 2018 - Scope Scope: Glycemic Pharmacist consulted by Dr Rueda on 11/14 for glycemic control and to write orders per [facility] inpatient glycemic control protocol - Objective Weight: 103.873 kg Accuchecks BSG (last 24hrs): 11/14/18 11/14/18 06:25 12:08 Glucose 228 H POC Glucose 231 H Laboratory Data (last 24hrs): 11/14/18 06:25 Potassium 3.7 Carbon Dioxide 30 Anion Gap 6.0 Creatinine 2.16 H Est Cr Clr Drug Dosing 25.3 - Recent Pertinent Medications Outpatient Anti-diabetic Regimen: Novolog 70/30: 10-25 units BIDM * A1c = pending * 6.4% in 08/02 Risk Factors for Insulin Resistance: - Assessment & Plan Assessment & Plan: ASSESSMENT: * Patient is a 78 yo F with recent admission to the hospital at the beginning of October, presents today for CHF exacerbation * Patient's home regimen consists of a scale 70/30 varying between 10-25 units, typically like to avoid use of 70/30 due to risk of hypoglycemia, therefore will convert to lantus/novolog basal/bolus * Previously good control with 15 units in the AM, CF/CR of 30/10 at previous admission * Patient's BSG elevated on admission, 231- will give 10 units of lantus x 1- patient is NPO PLAN FOR INPATIENT GLYCEMIC CONTROL: * Basal insulin * Lantus 10 units x 1 * Scale for evening for additional 5 units if BSG >200 * Bolus insulin * NovoLog per scale ACHS or Q6hrs while NPO * Goal Range: Low 120 mg/dL - High 160 mg/dL * Correction Factor: 30 mg/dL/unit * Nutritional / Prandial insulin per carb ratio of 1 unit per 10 grams CHO consumed * Please note that the plan above was derived based on current level of insulin resistance and hospital stress. These recommendations are appropriate for inpatient admission only. Plan of care upon discharge will need to be reassessed to avoid potential outpatient hypo/hyperglycemia. Thank you.
[2018-11-14] MEDS ORDERED: HYDROmorphone INJ 0.5 MG/0.5 ML SYR IV STA (15:14)
[2018-11-14] MEDS ORDERED: HYDROmorphone INJ 0.5 MG/0.5 ML SYR ONE (15:16)
[2018-11-14] MEDS ORDERED: FUROSEMIDE 80 MG in SYRINGE 0 ML IV ONE (16:25)
[2018-11-14] MEDS ORDERED: FUROSEMIDE 100 MG in DEXTROSE 5% 90 ML IV SCH (16:30)
--- NOTE | 2018-11-14 17:20 | Critical Care Consultation ---
Date of Consultation November 14, 2018 Assessment & Plan (1) Pulmonary edema: 78-year-old female was admitted on 14 November 2018 for chest pain, shortness of breath, and palpitations. LEATHER LACER: CAM-ICU negative. No acute issues. Pulm: SOB and evidence of moderate pulmonary edema + moderate pleural effusions on CXR, symptomatically responding to BiPAP and two doses of lasix. CVS: Acute on chronic combined systolic and diastolic CHF. echo notes moderate-severe LV systolic function (slightly worse than echo), EF of 25-30%, and valvular disease. Has underlying ischemic cardiomyopathy and bradycardia (with pacemaker). See cardiology notes. Considering upgrade to biventricular device. May have been in atrial flutter (PMH same) on admit, though is presently in NSR, and is on amiodarone. Recently started on verapamil since patient stopped diltiazem on her own. As inpatient, on plavix. Question of some pericarditis given positional nature of symptoms. Admit TnI 0.061. Has chronic LBBB. PMH HTN and HLD as well. - Cards: May improve with bumetanide or torsemide. Should continue coreg. Avoiding HERMELINDO-I / ARB due to renal issues and intolerance. Consider adding hydralazine or alpha-antagonist. Consider continuing verapamil. Has known intolerance to statins. ID: Afebrile, WBC 14, lactate negative, nasal MRSA negative. BCx sent. Endo: PMH hypothyroidism, on Synthroid. PMH DM2. HbA1c was 6.4 in . On ICU hyperglycemic protocol. Renal/Lytes: PMH CKD stage III. Admit Cr 2.16, around her baseline. Electrolytes okay. GI: PMH esophageal spasm seen on 15Oct2018 EGD. On protonix. NPO on admit. Heme: Admit Hb 13.4. No known acute issues. DVT prophy: Eliquis for atrial flutter. Lines: PIV. Code status: Full code. PT/OT: Deferred. Disposition: Critically ill. Admitted to ICU. (2) Pleural effusion: (3) Acute on chronic combined systolic and diastolic CHF (congestive heart failure): (4) Valvular heart disease: (5) Atrial flutter: (6) Left bundle branch block: (7) HTN (hypertension): (8) HLD (hyperlipidemia): (9) Hypothyroid: (10) CKD (chronic kidney disease), stage III: (11) Esophageal spasm: Supervising Physician Co-Signing Physician Notes Dr. Lagos was resident physician during care of patient. I separately evaluated patient for [place] portions of the history and the exam. I was present during the critical portion of medical decision making, and I discussed the case with the resident. I generally agree with the findings and plan. Patient improved with noninvasive mechanical ventilation, aggressive diuresis. Patient was discussed on bedside rounds with multidisciplinary team. I have personally spent 35 minutes of critical care time in the direct management of this patient. This is a life/limb threatening event. This includes time spent evaluating patient, direct bedside care, chart review, placing orders, interpretation of diagnostic studies, discussion with consultants, patient, and/or family members regarding treatment decisions, as well as other required patient management activities. This time is exclusive of all separately billable procedures, and teaching time and separate from and in addition to any other critical care service time. History of Present Illness Attending Physician: Bhanu Rueda History of Present Illness 78-year-old female presents for chest pain, shortness of breath, and palpitations for about a week, worsening over the past 48-72 hours. Symptoms are primarily epigastric, not radiating into the chest or arm, and worsen with exertion. She thinks she is gained about four pounds in the past week despite self increasing her Lasix 40 mg twice daily to 80 mg twice daily. She says she feels a bit better after being on BiPAP and given a diuretic. No other acute concerns. Of note, the patient has known CAD and cardiomyopathy, undergoing a heart catheterization on with associated PCI and NATY that overlapped the previous stent (see related report). She has been on Coreg, Eliquis, and her digoxin was changed to MWF dosing. Patient took herself off of diltiazem. Allergies Allergy/AdvReac Type Severity Reaction Status Date / Time adhesive Allergy Unknown REDNESS Verified 11/14/18 08:09 AND IRRITATION FROM PAIN PATCH, TAPE dulaglutide [From Trulicity] Allergy Unknown Unknown Verified 11/14/18 08:09 glipizide Allergy Unknown Unknown Verified 11/14/18 08:09 latex Allergy Unknown ALLERGIC Verified 11/14/18 08:09 TO LATEX TAPE/RASH/ITCHING morphine Allergy Unknown swelling Verified 11/14/18 08:09 nausea vomiting olmesartan Allergy Unknown UNKNOWN Verified 11/14/18 08:09 exenatide [From Byetta] Allergy Unknown Verified 11/14/18 08:09 glyburide Allergy Unknown Verified 11/14/18 08:09 metformin Allergy Unknown Verified 11/14/18 08:09 sitagliptin [From Januvia] Allergy Unknown Verified 11/14/18 08:09 aspirin AdvReac Mild GI SYMPTOMS Verified 11/14/18 08:09 ezetimibe AdvReac Mild MUSCLE Verified 11/14/18 08:09 ACHES lisinopril AdvReac Unknown LIGHTHEADED Verified 11/14/18 08:09 AND DIZZY pioglitazone AdvReac Unknown DIARRHEA Verified 11/14/18 08:09 NAUSEA [id number] Reductase AdvReac Unknown myalgias Verified 11/14/18 08:09 Inhibitor and weakness statins Allergy Unknown Unknown Uncoded 11/14/18 08:09 Home Medications Home Medications Medication Instructions Recorded Confirmed Type amiodarone 200 mg PO QPM 06/17/18 10/14/18 History clopidogrel [Plavix] 75 mg PO QPM 06/17/18 10/14/18 History garlic 1 tab PO QAM 06/17/18 10/14/18 History insulin asp prt-insulin aspart 0 units SUBCUT AMPM 06/17/18 10/14/18 History [Novolog Mix 70-30 U-100 Insuln] levothyroxine 75 mcg PO QAM 06/17/18 10/14/18 History magnesium oxide 400 mg PO QPM 06/17/18 10/14/18 History multivitamin [Multiple Vitamins] 1 tab PO DAILY 06/17/18 10/14/18 History potassium chloride 20 meq PO QAM 06/17/18 10/14/18 History triamcinolone acetonide 1 applic TOPICAL BID PRN 06/17/18 10/14/18 History vitamin E 400 unit PO QAM 06/17/18 10/14/18 History albuterol sulfate 2 puff INHALATION QID PRN 10/14/18 10/14/18 History isosorbide mononitrate 30 mg PO QAM 10/14/18 10/14/18 History apixaban [Eliquis] 2.5 mg PO BID #0 tab 10/23/18 10/14/18 Rx digoxin 0.125 mg PO DAILY@1600 #30 tab 10/23/18 Rx diltiazem HCl 180 mg PO QAM #30 cap 10/23/18 Rx furosemide 40 mg PO AMPM #0 tab 10/23/18 10/14/18 Rx pantoprazole 40 mg PO DAILY #30 tab 10/23/18 Rx albuterol sulfate 2 puff INHALATION Q6H PRN 11/14/18 11/14/18 History amiodarone 200 mg PO QPM 11/14/18 11/14/18 History apixaban [Eliquis] 5 mg PO BID 11/14/18 11/14/18 History carvedilol 3.125 mg PO BID 11/14/18 11/14/18 History clopidogrel [Plavix] 75 mg PO QPM 11/14/18 11/14/18 History collagenase clostridium histo. 1 applic TOPICAL DAILY PRN 11/14/18 11/14/18 History [Santyl] digoxin 0.125 mg PO 3XWK 11/14/18 11/14/18 History furosemide [Lasix] 40 mg PO BID 11/14/18 11/14/18 History garlic 1,000 mg PO QAM 11/14/18 11/14/18 History insulin asp prt-insulin aspart 1 sliding scale dose SUBCUT AMPM 11/14/18 History [Novolog Mix 70-30 U-100 Insuln] isosorbide mononitrate 30 mg PO QAM 11/14/18 11/14/18 History labetalol 75 mg PO QPM 11/14/18 11/14/18 History levothyroxine 75 mcg PO DAILY 11/14/18 11/14/18 History magnesium oxide 400 mg PO QPM 11/14/18 11/14/18 History multivitamin [Multiple Vitamins] 1 tab PO DAILY 11/14/18 11/14/18 History potassium chloride 20 meq PO DAILY 11/14/18 11/14/18 History triamcinolone acetonide 1 applic TOPICAL DAILY PRN 11/14/18 11/14/18 History verapamil 120 mg PO PM 11/14/18 11/14/18 History vitamin E 400 unit PO DAILY 11/14/18 11/14/18 History Patient History Medical History GERD (gastroesophageal reflux disease) Hypothyroidism Left bundle branch block Hypothyroid CKD (chronic kidney disease), stage III DM II (diabetes mellitus, type II), controlled Bilateral carotid artery stenosis Congestive heart failure 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 Atrial flutter Morbid obesity HLD (hyperlipidemia) HTN (hypertension) Surgical History Pacemaker Presence of stent in LAD coronary artery Family History Other Pacemaker Social History Current Living Situation: Alone Other Information That Helps Us Care for You: No Feels Safe at Home: Yes Safety Concerns: Feels Safe At This Time Smoking Status: Never smoker Second Hand Exposure: No Hx Alcohol Use: No Hx Substance Use: No Beliefs That Will Affect Care: None Communication Ability: Effective Review of Systems Constitutional: Denies fevers, chills, focal weakness Eyes: Denies any visual loss or diplopia ENT: Denies any ear/nose/throat pain or difficulty speaking or swallowing Respiratory: See HPI Cardiovascular: See HPI Gastrointestinal: Denies any abdominal pain, nausea/vomiting/diarrhea Musculoskeletal: Denies any acute extremity pains, myalgias, or focal weakness Skin: Denies any known acute rashes or lesions Neuro: Denies any headache, acute focal weakness or numbness, or difficulties with speech or swallow. Psych: Denies any recent depression or anxiety Physical Exam 2 Vital Signs (Past 24 Hours): Last Vital Signs Temp 36.5 C 11/14/18 16:00 Pulse 79 11/14/18 16:40 Resp 20 11/14/18 16:40 BP 149/77 H 11/14/18 16:00 Pulse Ox 94 11/14/18 16:40 Physical Exam: General Appearance: Awake, alert & oriented, comfortable in general on BiPAP, NAD. CV: +S1S2 RRR, no murmur. Pulm: Minimal breath sounds at bilateral bases. On BiPAP. Abdomen: +BS, soft, non-tender, non-distended. Extremities: No pedal edema or calf tenderness. Moving all extremities naturally and easily. Neuro: No gross neuro deficits. Results & Data Laboratory Results 11/14/18 11/14/18 11/14/18 Range/Units 16:26 12:08 10:00 WBC (4.8-10.8) K/uL RBC (4.2-5.4) M/uL Hgb (12.0-16.0) g/dL Hct (37-47) % MCV (80-100) fL MCH (25-34) pg MCHC (32-36) g/dL RDW Std Deviation (36.4-46.3) fL RDW Coeff of Manuela (11.5-14.5) % Plt Count (130-400) K/uL MPV (7.4-10.4) fL Immature Gran % (Auto) % Neut % (Auto) % Lymph % (Auto) % Caswell % (Auto) % Eos % (Auto) % Baso % (Auto) % Immature Gran # (Auto) (0.00-0.02) K/uL Neut # (Auto) (1.4-6.5) K/uL Lymph # (Auto) (1.2-3.4) K/uL Caswell # (Auto) (0.11-0.59) K/uL Eos # (Auto) (0-0.5) K/uL Baso # (Auto) (0-0.2) K/uL PT (9.0-12.0) Seconds INR (0.9-1.1) ABG pH (7.35-7.45) ABG pCO2 (35-46) mmHg ABG pO2 (80-95) mm/Hg ABG HCO3 (19-24) mmol/L ABG O2 Saturation (90-95) % ABG Base Excess (-9-1.8) mEq/L Alexander Test (Pos) Barometric Pressure mm/Hg Oxygen Given Sodium (136-145) mmol/L Potassium (3.5-5.1) mmol/L Chloride (98-107) mmol/L Carbon Dioxide (21-32) mmol/L Anion Gap (3-11) BUN (7-18) mg/dl Creatinine (0.6-1.2) mg/dl Est Cr Clr Drug Dosing ml/min Est GFR ( Amer) Est GFR (Non-Af Amer) BUN/Creatinine Ratio (10-20) Glucose (70-99) mg/dl POC Glucose 148 H 231 H (70-99) Lactate (0.4-2.0) mmol/L Calcium (8.5-10.1) mg/dl Magnesium (1.8-2.4) mg/dl Total Bilirubin (0.2-1) mg/dl Direct Bilirubin (0-0.2) mg/dl AST (15-37) U/L ALT (12-78) U/L Alkaline Phosphatase (45-117) U/L Troponin I (0-0.045) ng/ml NT-Pro-B Natriuret Pep (0-1800) pg/ml Total Protein (6.4-8.2) gm/dl Albumin (3.4-5.0) gm/dl Nasal Screen MRSA (PCR) Negative (Negative) Digoxin (0.8-2.0) ng/ml 11/14/18 11/14/18 11/14/18 Range/Units 06:42 06:25 06:25 WBC (4.8-10.8) K/uL RBC (4.2-5.4) M/uL Hgb (12.0-16.0) g/dL Hct (37-47) % MCV (80-100) fL MCH (25-34) pg MCHC (32-36) g/dL RDW Std Deviation (36.4-46.3) fL RDW Coeff of Manuela (11.5-14.5) % Plt Count (130-400) K/uL MPV (7.4-10.4) fL Immature Gran % (Auto) % Neut % (Auto) % Lymph % (Auto) % [place] % (Auto) % Eos % (Auto) % Baso % (Auto) % Immature Gran # (Auto) (0.00-0.02) K/uL Neut # (Auto) (1.4-6.5) K/uL Lymph # (Auto) (1.2-3.4) K/uL Caswell # (Auto) (0.11-0.59) K/uL Eos # (Auto) (0-0.5) K/uL Baso # (Auto) (0-0.2) K/uL PT (9.0-12.0) Seconds INR (0.9-1.1) ABG pH 7.39 (7.35-7.45) ABG pCO2 50 H (35-46) mmHg ABG pO2 62 L (80-95) mm/Hg ABG HCO3 30 H (19-24) mmol/L ABG O2 Saturation 90.7 (90-95) % ABG Base Excess 3.7 H (-9-1.8) mEq/L Alexander Test Pos (Pos) Barometric Pressure 726.3 mm/Hg Oxygen Given 50% Sodium (136-145) mmol/L Potassium (3.5-5.1) mmol/L Chloride (98-107) mmol/L Carbon Dioxide (21-32) mmol/L Anion Gap (3-11) BUN (7-18) mg/dl Creatinine (0.6-1.2) mg/dl Est Cr Clr Drug Dosing ml/min Est GFR ( Amer) Est GFR (Non-Af Amer) BUN/Creatinine Ratio (10-20) Glucose (70-99) mg/dl POC Glucose (70-99) Lactate 1.5 (0.4-2.0) mmol/L Calcium (8.5-10.1) mg/dl Magnesium (1.8-2.4) mg/dl Total Bilirubin (0.2-1) mg/dl Direct Bilirubin (0-0.2) mg/dl AST (15-37) U/L ALT (12-78) U/L Alkaline Phosphatase (45-117) U/L Troponin I (0-0.045) ng/ml NT-Pro-B Natriuret Pep (0-1800) pg/ml Total Protein (6.4-8.2) gm/dl Albumin (3.4-5.0) gm/dl Nasal Screen MRSA (PCR) (Negative) Digoxin 1.0 (0.8-2.0) ng/ml 11/14/18 11/14/18 11/14/18 Range/Units 06:25 06:25 06:25 WBC 13.91 H (4.8-10.8) K/uL RBC 4.03 L (4.2-5.4) M/uL Hgb 13.4 (12.0-16.0) g/dL Hct 41.3 (37-47) % MCV 102.5 H (80-100) fL MCH 33.3 (25-34) pg MCHC 32.4 (32-36) g/dL RDW Std Deviation 55.2 H (36.4-46.3) fL RDW Coeff of Manuela 14.9 H (11.5-14.5) % Plt Count 305 (130-400) K/uL MPV 11.2 H (7.4-10.4) fL Immature Gran % (Auto) 0.2 % Neut % (Auto) 63.1 % Lymph % (Auto) 25.5 % [place] % (Auto) 8.5 % Eos % (Auto) 2.3 % Baso % (Auto) 0.4 % Immature Gran # (Auto) 0.03 H (0.00-0.02) K/uL Neut # (Auto) 8.78 H (1.4-6.5) K/uL Lymph # (Auto) 3.55 H (1.2-3.4) K/uL Caswell # (Auto) 1.18 H (0.11-0.59) K/uL Eos # (Auto) 0.32 (0-0.5) K/uL Baso # (Auto) 0.05 (0-0.2) K/uL PT 10.6 (9.0-12.0) Seconds INR 1.1 (0.9-1.1) ABG pH (7.35-7.45) ABG pCO2 (35-46) mmHg ABG pO2 (80-95) mm/Hg ABG HCO3 (19-24) mmol/L ABG O2 Saturation (90-95) % ABG Base Excess (-9-1.8) mEq/L Alexander Test (Pos) Barometric Pressure mm/Hg Oxygen Given Sodium 136 (136-145) mmol/L Potassium 3.7 (3.5-5.1) mmol/L Chloride 100 (98-107) mmol/L Carbon Dioxide 30 (21-32) mmol/L Anion Gap 6.0 (3-11) BUN 26 H (7-18) mg/dl Creatinine 2.16 H (0.6-1.2) mg/dl Est Cr Clr Drug Dosing 25.3 ml/min Est GFR ( Amer) 24.5 Est GFR (Non-Af Amer) 21.1 BUN/Creatinine Ratio 12.1 (10-20) Glucose 228 H (70-99) mg/dl POC Glucose (70-99) Lactate (0.4-2.0) mmol/L Calcium 9.1 (8.5-10.1) mg/dl Magnesium 2.7 H (1.8-2.4) mg/dl Total Bilirubin 0.6 (0.2-1) mg/dl Direct Bilirubin 0.1 (0-0.2) mg/dl AST 43 H (15-37) U/L ALT 50 (12-78) U/L Alkaline Phosphatase 168 H (45-117) U/L Troponin I 0.061 H* (0-0.045) ng/ml NT-Pro-B Natriuret Pep 2920 H (0-1800) pg/ml Total Protein 8.1 (6.4-8.2) gm/dl Albumin 3.8 (3.4-5.0) gm/dl Nasal Screen MRSA (PCR) (Negative) Digoxin (0.8-2.0) ng/ml Medications Administered Current Inpatient Medications Amiodarone HCl (Cordarone) 200 mg PO QPM ANDREW Stop: 12/14/18 20:59 Apixaban (Eliquis) 5 mg PO BID ANDREW Stop: 12/14/18 08:59 Last Admin: 11/14/18 10:37 Dose: 5 mg Clopidogrel Bisulfate (Plavix) 75 mg PO QPM ANDREW Stop: 12/14/18 20:59 Pantoprazole Sodium 40 mg/ (Syringe) 10 mls @ 5 mls/min IV DAILY@1100 ANDREW Stop: 12/14/18 10:59 Last Admin: 11/14/18 10:37 Dose: 5 mls/min Furosemide 100 mg/ Dextrose 100 mls @ 1 mls/hr IV .Q24H ANDREW Stop: 12/14/18 16:29 Last Admin: 11/14/18 16:23 Dose: 1 mg/hr, 1 mls/hr Insulin Aspart (Novolog Flexpen) 0 units SC Q6 ANDREW Stop: 12/14/18 11:59 Last Admin: 11/14/18 16:56 Dose: Not Given Insulin Glargine (Lantus Solostar Pen) 0 units SC HS ONE; Protocol Stop: 11/14/18 21:01 Levothyroxine Sodium (Synthroid) 75 mcg PO DAILYBB ANDREW Stop: 12/15/18 06:29 Miscellaneous ([facility] Protocol For Hyperglycemia) 1 ea N/A PRN PRN; Protocol PRN Reason: Hyperglycemia Protocol Stop: 11/16/18 08:45 Miscellaneous Information (Consult Glycemic Management Pharmacy) 1 ea N/A UD PRN PRN Reason: Consult Stop: 12/14/18 09:35 Nitroglycerin (Nitro-Bid 2%) 1 inch EXT Q6H [facility] Stop: 12/14/18 17:59 Resident Activity Tracking Resident Involvement: Resident Care Provided Care Provided: Adult [facility] Medicine _ (1) Atrial flutter Atrial flutter type: unspecified Qualified Code(s): I48.92 - Unspecified atrial flutter (2) HLD (hyperlipidemia) Hyperlipidemia type: mixed hyperlipidemia Qualified Code(s): E78.2 - Mixed hyperlipidemia (3) Pulmonary edema Chronicity: acute Qualified Code(s): J81.0 - Acute pulmonary edema
[2018-11-14] MEDS: NITROGLYCERIN 2% OINTMENT 30GM TUBE EXT SCH (17:34)
[2018-11-14] MEDS: AMIODARONE 200 MG TAB PO SCH (21:24)
[2018-11-14] MEDS: CLOPIDOGREL BISULFATE 75 MG TAB PO SCH (21:26)
[2018-11-14] MEDS: ONDANSETRON INJ 2 MG/ML 2 ML VIAL IV PRN (21:58)
[2018-11-15] MEDS: INSULIN ASPART 100 UNITS/ML 3 ML PEN SC SCH ×5 (01:50→21:12)
[2018-11-15] MEDS: NITROGLYCERIN 2% OINTMENT 30GM TUBE EXT SCH ×4 (01:55→18:14)
[2018-11-15] MEDS: ONDANSETRON INJ 2 MG/ML 2 ML VIAL IV PRN (03:06)
[2018-11-15 04:46] LABS: Basophils # (auto) 0.02 K/uL (0-0.2); Basophils % (auto) 0.2 %; Eosinophils # (auto) 0.17 K/uL (0-0.5); Eosinophils % (auto) 1.8 %; Hematocrit (blood only) 34.8 % (37-47); Hemoglobin 11.2 g/dL (12.0-16.0); Immature Granulocytes # (auto) 0.03 K/uL (0.00-0.02); Immature Granulocytes % (auto) 0.3 %; Lymphocytes # (auto) 1.68 K/uL (1.2-3.4); Lymphocytes % (auto) 17.6 %; Mean Corpuscular Hgb Conc 32.2 g/dL (32-36); Mean Platelet Volume 10.7 fL (7.4-10.4); Monocytes # (auto) 1.18 K/uL (0.11-0.59); Monocytes % (auto) 12.4 %; Neutrophils # (auto) 6.45 K/uL (1.4-6.5); Neutrophils % (auto) 67.7 %; Platelet Count 245 K/uL (130-400); RDW Coefficient of Variation 15.1 % (11.5-14.5); Red Blood Count 3.38 M/uL (4.2-5.4); White Blood Count 9.53 K/uL (4.8-10.8)
[2018-11-15 05:09] LABS: BUN Creatinine Ratio 15.8 (10-20); Calcium 8.6 mg/dl (8.5-10.1); Creatinine Clr Calc Pharmacy 28.3 ml/min; Est GFR (Non-African American) 24.2; Magnesium 2.6 mg/dl (1.8-2.4); Potassium 3.6 mmol/L (3.5-5.1)
[2018-11-15 05:21] LABS: Phosphorus 3.6 mg/dl (2.5-4.9); Troponin I 0.35 ng/ml (0-0.045)
[2018-11-15] MEDS: LEVOTHYROXINE SODIUM 75 MCG TABLET PO SCH (06:22)
--- NOTE | 2018-11-15 07:16 | XRay Report ---
XR chest 1V portable CLINICAL HISTORY: f/u dyspnea COMPARISON STUDY: 11/14/2018 FINDINGS: Small bilateral pleural effusions slightly increased in volume from the prior study. Improv ed prominence of pulmonary vasculature. Mild stable cardiomegaly. IMPRESSION: Mild congestive heart failure slightly improved from the prior exam. Small bilateral ple ural effusions slightly increased in volume. The above report was generated using voice recognition software. It may contain grammatical, syntax or spelling errors. Electronically signed by: Kyle Villarreal M.D. 11/15/2018 7:15 AM
--- NOTE | 2018-11-15 08:26 | Critical Care Progress Note ---
Date of Service November 15, 2018 Assessment & Plan (1) Pulmonary edema: 78-year-old female was admitted on 14 November 2018 for chest pain, shortness of breath, and palpitations. 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 No acute issues. Providing Tylenol IV as needed for mild pain. Pulm: SOB and evidence of moderate pulmonary edema + moderate pleural effusions on CXR, symptomatically responding to BiPAP and lasix. Small improvement on repeat CXR. Currently on NC oxygen with SpO2 in low 90s. CVS: Acute on chronic combined systolic and diastolic CHF. echo notes moderate-severe LV systolic function (slightly worse than echo), EF of 25-30%, and valvular disease. Has underlying ischemic cardiomyopathy and bradycardia (with pacemaker). See cardiology notes. Considering upgrade to biventricular device. May have been in atrial flutter (PMH same) on admit, though is presently in NSR, and is on amiodarone. Recently started on verapamil since patient stopped diltiazem on her own. As inpatient, on plavix. Question of some pericarditis given positional nature of symptoms. Admit TnI 0.061, up to 0.35. Has chronic LBBB. PMH HTN and HLD as well. - Increasing lasix drip to 3 mg/hr. Start imdur. ID: Afebrile, WBC normalized, lactate negative, nasal MRSA negative. BCx pending. Endo: PMH hypothyroidism, on Synthroid. PMH DM2. HbA1c was 6.4 in . On ICU hyperglycemic protocol. Renal/Lytes: PMH CKD stage III. Admit Cr 2.16, now 1.93, around her baseline. Electrolytes okay. Hard to assess her urine output as she misses the collection hat. - Starting scheduled KCl twice daily. GI: PMH esophageal spasm seen on [id number] EGD. On protonix. Has had some nausea. Abdomen remains soft and non-tender. -Started Compazine and Zofran. Starting her healthy diet. Heme: Admit Hb 13.4, down to 11.2. No known acute issues. DVT prophy: Eliquis for atrial flutter. Lines: PIV. Code status: Full code. PT/OT: Deferred. Disposition: Admitted to ICU. Possible downgrade to telemetry in the next 24 hours. (2) Pleural effusion: (3) Acute on chronic combined systolic and diastolic CHF (congestive heart failure): (4) Valvular heart disease: (5) Atrial flutter: (6) Left bundle branch block: (7) HTN (hypertension): (8) HLD (hyperlipidemia): (9) Hypothyroid: (10) CKD (chronic kidney disease), stage III: (11) Esophageal spasm: Supervising Physician Co-Signing Physician Notes Dr. Lagos was resident physician during care of patient. I separately evaluated patient for [place] portions of the history and the exam. I was present during the critical portion of medical decision making, and I discussed the case with the resident. I generally agree with the findings and plan. Continued aggressive diuresis. Increase Lasix infusion due to improving creatinine adding potassium supplementation. There has been difficulty of tracking I's and O's due to missing hat when urinating therefore will check BMP this afternoon Can progress diet. Possible downgrade to telemetry Patient was discussed on bedside rounds with multidisciplinary team. Subjective Found patient sitting in her bedside chair. She is noted some episodes of nausea overnight, somewhat improved with Zofran. She continues to note her epigastric pain over the past couple of days but says that it has not yet radiated into her chest or arm as on her previous admission. Otherwise she says her breathing feels a bit improved, including on nasal cannula oxygen. She denies any particular acute concerns. Physical Exam 2 Vital Signs (Past 24 Hours): Last Vital Signs Temp 37 C 11/14/18 22:00 Pulse 72 11/15/18 06:00 Resp 16 11/15/18 06:00 BP 146/86 H 11/15/18 06:00 Pulse Ox 95 11/15/18 06:00 Physical Exam: General Appearance: Awake, alert & oriented, comfortable in general, NAD. CV: +S1S2 RRR, no murmur. Pulm: Improved but decreased breath sounds at bilateral bases. On NC oxygen. Abdomen: +BS, soft, non-tender, non-distended. Extremities: No pedal edema or calf tenderness. Moving all extremities naturally and easily. Neuro: No gross neuro deficits. Results & Data Laboratory Results 11/15/18 11/15/18 11/15/18 Range/Units 06:18 04:20 04:20 WBC 9.53 (4.8-10.8) K/uL RBC 3.38 L (4.2-5.4) M/uL Hgb 11.2 L (12.0-16.0) g/dL Hct 34.8 L (37-47) % MCV 103.0 H (80-100) fL MCH 33.1 (25-34) pg MCHC 32.2 (32-36) g/dL RDW Std Deviation 57.0 H (36.4-46.3) fL RDW Coeff of Manuela 15.1 H (11.5-14.5) % Plt Count 245 (130-400) K/uL MPV 10.7 H (7.4-10.4) fL Immature Gran % (Auto) 0.3 % Neut % (Auto) 67.7 % Lymph % (Auto) 17.6 % Wells % (Auto) 12.4 % Eos % (Auto) 1.8 % Baso % (Auto) 0.2 % Immature Gran # (Auto) 0.03 H (0.00-0.02) K/uL Neut # (Auto) 6.45 (1.4-6.5) K/uL Lymph # (Auto) 1.68 (1.2-3.4) K/uL Wells # (Auto) 1.18 H (0.11-0.59) K/uL Eos # (Auto) 0.17 (0-0.5) K/uL Baso # (Auto) 0.02 (0-0.2) K/uL Sodium 137 (136-145) mmol/L Potassium 3.6 (3.5-5.1) mmol/L Chloride 99 (98-107) mmol/L Carbon Dioxide 32 (21-32) mmol/L Anion Gap 6.0 (3-11) BUN 31 H (7-18) mg/dl Creatinine 1.93 H (0.6-1.2) mg/dl Est Cr Clr Drug Dosing 28.3 ml/min Est GFR ( Amer) 28.0 Est GFR (Non-Af Amer) 24.2 BUN/Creatinine Ratio 15.8 (10-20) Glucose 159 H (70-99) mg/dl POC Glucose 148 H (70-99) Calcium 8.6 (8.5-10.1) mg/dl Phosphorus 3.6 (2.5-4.9) mg/dl Magnesium 2.6 H (1.8-2.4) mg/dl Troponin I 0.350 H* (0-0.045) ng/ml Nasal Screen MRSA (PCR) (Negative) 11/15/18 11/14/18 11/14/18 Range/Units 01:27 21:21 16:26 WBC (4.8-10.8) K/uL RBC (4.2-5.4) M/uL Hgb (12.0-16.0) g/dL Hct (37-47) % MCV (80-100) fL MCH (25-34) pg MCHC (32-36) g/dL RDW Std Deviation (36.4-46.3) fL RDW Coeff of Manuela (11.5-14.5) % Plt Count (130-400) K/uL MPV (7.4-10.4) fL Immature Gran % (Auto) % Neut % (Auto) % Lymph % (Auto) % Wells % (Auto) % Eos % (Auto) % Baso % (Auto) % Immature Gran # (Auto) (0.00-0.02) K/uL Neut # (Auto) (1.4-6.5) K/uL Lymph # (Auto) (1.2-3.4) K/uL Wells # (Auto) (0.11-0.59) K/uL Eos # (Auto) (0-0.5) K/uL Baso # (Auto) (0-0.2) K/uL Sodium (136-145) mmol/L Potassium (3.5-5.1) mmol/L Chloride (98-107) mmol/L Carbon Dioxide (21-32) mmol/L Anion Gap (3-11) BUN (7-18) mg/dl Creatinine (0.6-1.2) mg/dl Est Cr Clr Drug Dosing ml/min Est GFR ( Amer) Est GFR (Non-Af Amer) BUN/Creatinine Ratio (10-20) Glucose (70-99) mg/dl POC Glucose 143 H 160 H 148 H (70-99) Calcium (8.5-10.1) mg/dl Phosphorus (2.5-4.9) mg/dl Magnesium (1.8-2.4) mg/dl Troponin I (0-0.045) ng/ml Nasal Screen MRSA (PCR) (Negative) 11/14/18 11/14/18 Range/Units 12:08 10:00 WBC (4.8-10.8) K/uL RBC (4.2-5.4) M/uL Hgb (12.0-16.0) g/dL Hct (37-47) % MCV (80-100) fL MCH (25-34) pg MCHC (32-36) g/dL RDW Std Deviation (36.4-46.3) fL RDW Coeff of Manuela (11.5-14.5) % Plt Count (130-400) K/uL MPV (7.4-10.4) fL Immature Gran % (Auto) % Neut % (Auto) % Lymph % (Auto) % Wells % (Auto) % Eos % (Auto) % Baso % (Auto) % Immature Gran # (Auto) (0.00-0.02) K/uL Neut # (Auto) (1.4-6.5) K/uL Lymph # (Auto) (1.2-3.4) K/uL Wells # (Auto) (0.11-0.59) K/uL Eos # (Auto) (0-0.5) K/uL Baso # (Auto) (0-0.2) K/uL Sodium (136-145) mmol/L Potassium (3.5-5.1) mmol/L Chloride (98-107) mmol/L Carbon Dioxide (21-32) mmol/L Anion Gap (3-11) BUN (7-18) mg/dl Creatinine (0.6-1.2) mg/dl Est Cr Clr Drug Dosing ml/min Est GFR ( Amer) Est GFR (Non-Af Amer) BUN/Creatinine Ratio (10-20) Glucose (70-99) mg/dl POC Glucose 231 H (70-99) Calcium (8.5-10.1) mg/dl Phosphorus (2.5-4.9) mg/dl Magnesium (1.8-2.4) mg/dl Troponin I (0-0.045) ng/ml Nasal Screen MRSA (PCR) Negative (Negative) Medications Administered Current Inpatient Medications Amiodarone HCl (Cordarone) 200 mg PO QPM [facility] Stop: 12/14/18 20:59 Last Admin: 11/14/18 21:24 Dose: 200 mg Apixaban (Eliquis) 5 mg PO BID [facility] Stop: 12/14/18 08:59 Last Admin: 11/14/18 21:25 Dose: 5 mg Clopidogrel Bisulfate (Plavix) 75 mg PO QPM [facility] Stop: 12/14/18 20:59 Last Admin: 11/14/18 21:26 Dose: 75 mg Pantoprazole Sodium 40 mg/ (Syringe) 10 mls @ 5 mls/min IV DAILY@1100 [facility] Stop: 12/14/18 10:59 Last Admin: 11/14/18 10:37 Dose: 5 mls/min Furosemide 100 mg/ Dextrose 100 mls @ 4 mls/hr IV .Q24H [facility] Stop: 12/14/18 16:29 Last Admin: 11/14/18 16:23 Dose: 1 mg/hr, 1 mls/hr Acetaminophen (Ofirmev) 1,000 mg in 100 mls @ 400 mls/hr IV Q8H [facility] Stop: 12/15/18 08:29 Last Admin: 11/15/18 08:53 Dose: 400 mls/hr Prochlorperazine 10 mg/ (Syringe) 10 mls @ 5 mls/min IV Q6 PRN PRN Reason: Nausea And Vomiting Stop: 12/15/18 08:26 Last Admin: 11/15/18 09:17 Dose: 5 mls/min Insulin Aspart (Novolog Flexpen) 0 units SC Q6 [facility] Stop: 12/14/18 11:59 Last Admin: 11/15/18 06:21 Dose: Not Given Insulin Glargine (Lantus Solostar Pen) 5 units SC QAM [facility] Stop: 12/15/18 08:59 Isosorbide Mononitrate (Imdur Extended Rel) 30 mg PO QAM [facility] Stop: 12/15/18 08:59 Levothyroxine Sodium (Synthroid) 75 mcg PO DAILYBB [facility] Stop: 12/15/18 06:29 Last Admin: 11/15/18 06:22 Dose: 75 mcg Miscellaneous (Icu Protocol For Hyperglycemia) 1 ea N/A PRN PRN; Protocol PRN Reason: Hyperglycemia Protocol Stop: 11/16/18 08:45 Miscellaneous Information (Consult Glycemic Management Pharmacy) 1 ea N/A UD PRN PRN Reason: Consult Stop: 12/14/18 09:35 Nitroglycerin (Nitro-Bid 2%) 1 inch EXT Q6H [facility] Stop: 12/14/18 17:59 Last Admin: 11/15/18 06:21 Dose: 1 inch Ondansetron HCl (Zofran) 4 mg IV Q8H PRN PRN Reason: Nausea Stop: 12/14/18 21:22 Potassium Chloride (Klor-Con M20) 40 meq PO BID [facility] Stop: 12/15/18 08:59 Resident Activity Tracking Resident Involvement: Resident Care Provided Care Provided: Adult [facility] Medicine _ (1) Atrial flutter Atrial flutter type: unspecified Qualified Code(s): I48.92 - Unspecified atrial flutter (2) HLD (hyperlipidemia) Hyperlipidemia type: mixed hyperlipidemia Qualified Code(s): E78.2 - Mixed hyperlipidemia (3) Pulmonary edema Chronicity: acute Qualified Code(s): J81.0 - Acute pulmonary edema
[2018-11-15] MEDS ORDERED: ONDANSETRON INJ 2 MG/ML 2 ML VIAL IV PRN (08:30)
[2018-11-15] MEDS ORDERED: ACETAMINOPHEN 1,000 MG/100 ML VIAL IV SCH (08:30)
[2018-11-15] MEDS ORDERED: INSULIN GLARGINE SOLOSTAR 100 UNITS/ML 3 ML PEN SC SCH (09:00)
[2018-11-15] MEDS: PROCHLORPERAZINE 10 MG in SYRINGE 8 ML IV PRN (09:17)
[2018-11-15] MEDS ORDERED: ACETAMINOPHEN 1,000 MG/100 ML VIAL IV PRN (09:30)
[2018-11-15] MEDS: APIXABAN 5 MG TABLET PO SCH ×2 (09:43→21:07)
[2018-11-15] MEDS: ISOSORBIDE MONO EXTENDED REL 30 MG TABCR PO SCH (09:43)
[2018-11-15] MEDS: PANTOprazole 40 MG in SYRINGE 0 ML IV SCH (09:44)
[2018-11-15] MEDS: POTASSIUM CHLORIDE 20 MEQ TABCR PO SCH ×2 (09:44→21:11)
--- NOTE | 2018-11-15 14:09 | Pharmacy Report ---
Pharmacy Glycemic Short Note 2 - Date of Service November 15, 2018 - Glycemic Short BSG Results (Last 24 hours): 11/14/18 11/14/18 11/15/18 16:26 21:21 01:27 Glucose POC Glucose 148 H 160 H 143 H 11/15/18 11/15/18 11/15/18 04:20 06:18 11:26 Glucose 159 H POC Glucose 148 H 194 H OUTPATIENT ANTIDIABETIC REGIMEN: * Novolog 70-30 10-25 units BIDM ASSESSMENT: * Patient received 13 units of insulin yesterday- 10 units of lantus, 3 units of correctional * Patient ordered diet this AM but nauseous, uncertain of PO intake amount, will scale lantus for this evening PLAN FOR INPATIENT GLYCEMIC CONTROL: * Hold outpatient oral diabetes medications * Basal insulin * Lantus 5 units this AM, scale for PM * 5 units BSG <140 * 10 units BSG 140 or greater * Bolus insulin * NovoLog per scale ACHS or Q6hrs while NPO * Goal Range: Low 120 mg/dL - High 160 mg/dL * Correction Factor: 30 mg/dL/unit * Nutritional / Prandial insulin per carb ratio of 1 unit per 10 grams CHO consumed
[2018-11-15] MEDS ORDERED: TRAMADOL HCL 50 MG TABLET PO STA (14:49)
[2018-11-15 16:17] LABS: BUN Creatinine Ratio 16.1 (10-20); Calcium 8.3 mg/dl (8.5-10.1); Creatinine Clr Calc Pharmacy 27.4 ml/min; Est GFR (Non-African American) 23.3; Potassium 3.9 mmol/L (3.5-5.1)
[2018-11-15] MEDS: BUMETANIDE 2 MG in SYRINGE 0 ML IV SCH (16:36)
--- NOTE | 2018-11-15 17:15 | Cardiology Progress Note ---
Date of Service November 15, 2018 Assessment & Plan (1) Acute on chronic combined systolic and diastolic CHF (congestive heart failure): She presents now with congestive heart failure and a weight gain consistent with fluid retention. Whether this is simply dietary or whether it is related to worsening of her left ventricular function is not clear. In any case we should diurese and try to eliminate the excess fluid which should improve her respiratory status. (2) NSTEMI (non-ST elevated myocardial infarction): She did have slight troponin elevation on arrival which did increase somewhat but only to 0.35. This is more consistent with demand ischemia in the setting of renal insufficiency than an acute coronary event although I would draw at least one more troponin to follow the trend. (3) Cardiomyopathy: Her left ventricular function appears worse on the admission echocardiogram than on her last one which was felt to represent an ejection fraction about 45%. Now it is significant less than that. It may be due to her acute presentation, however we probably need to maximize her heart failure medications and we may want to consider upgrading her to a biventricular ICD if left ventricular dysfunction continues. I would not do that at this point however. (4) Left bundle branch block: She has left bundle branch block, that could contribute to dyssynchrony and contribute to left ventricular dysfunction however the decline has been quite recent and the left bundle branch block probably does not completely explain her presentation were left ventricular dysfunction. (5) Anticoagulant long-term use: She is on Eliquis, given her weight and age she should be on the 5 mg twice daily dose according to guidelines. I would continue her current dose. Subjective This is a 78-year-old woman with a complex medical history which includes coronary artery disease, a historically mild cardiomyopathy, mild aortic stenosis, mild to moderate mitral regurgitation, hypertension, chronic kidney disease, hyperlipidemia for which she is intolerant to statins, paroxysmal atrial flutter for which she is on amiodarone, peripheral vascular disease including carotid stenosis, diabetes mellitus and bradycardia for which she had a dual-chamber pacemaker implanted on May 15, 2018. She was hospitalized and required mid LAD stent placement on October 17, 2018, other vessels had disease but not severe disease. She was also noted to be in atrial flutter. She remained in atrial flutter after October 31, 2018 office visit, her Eliquis had been reduced during her prior hospitalization but based on guidelines since she should have been on the higher dose therefore it was increased to 5 mg twice daily at that time. Carvedilol was also added. She was seen acutely in the office on November 12, 2018 when she presented with complaints of chest discomfort and shortness of breath. She did have a rapid ventricular response to her atrial arrhythmia and it was decided to try to control her heart rate and wait until she is properly anticoagulated before performing cardioversion. She continued to have difficulty with shortness of breath and then presented to the emergency room with GI symptoms on November 14, 2018. She was found to have gained weight and appeared to be in pulmonary edema. Her troponin was slightly elevated on admission and increased somewhat on today's measurement, but only to 0.35. Her kidney function appears to be relatively stable with a creatinine of around 2. Today she is feeling somewhat better after diuresis. She is not sure why she has gained weight, she did notice that her weight was increasing and tried to cut back on her diet but continued to gain weight. Today she is not having chest discomfort. Physical Exam 2 Vital Signs (Past 24 Hours): Last Vital Signs Temp 36.5 C 11/15/18 16:00 Pulse 74 11/15/18 17:00 Resp 19 11/15/18 17:00 BP 128/54 L 11/15/18 17:00 Pulse Ox 92 11/15/18 17:00 Physical Exam: Constitutional: Alert, cooperative and in no distress. Pulmonary: Basilar crackles on auscultation bilaterally. Cardiac: Irregular rhythm with no murmur, gallop or rub. Abdomen: Soft, nontender with normal bowel sounds. Extremities: +1 bilateral pretibial edema. Skin: No rash, ecchymoses or petechiae. Results & Data Diagnostic Findings Telemetry: Atrial fibrillation/flutter with a relatively well-controlled heart rate Echocardiogram done yesterday suggests worsening left ventricular function with ejection fraction of 25-30%, mild aortic stenosis and severe mitral regurgitation. An electrocardiogram on arrival demonstrates underlying atrial flutter with left bundle branch block and a heart rate of 101 bpm
[2018-11-15] MEDS ORDERED: INSULIN GLARGINE SOLOSTAR 100 UNITS/ML 3 ML PEN SC ONE (21:00)
[2018-11-15] MEDS: AMIODARONE 200 MG TAB PO SCH (21:06)
[2018-11-15] MEDS: CLOPIDOGREL BISULFATE 75 MG TAB PO SCH (21:06)
--- NOTE | 2018-11-15 22:35 | Hospitalist Progress Note ---
Date of Service November 15, 2018 Assessment & Plan (1) Acute respiratory failure with hypoxia: Patient is to be admitted to the Intensive care unit. Will remain in the ICU for today Patient respiratory status has improved with diuretics. Will cotninue on diuretics. Patient no longer requires continuoius BIPAP. Patient is now tolerating nasal cannula. Patient will receive bumex. Will continue to holdcbeta estephania, dig and lacho inhibitor in this acute phase of her CHF. 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 - CAD: On home Plavix. Has allergy to ASA. - Paroxysmal atrial flutter: Held betablocker On home amiodarone. --- Held home apixaban while on heparin. - CKD stage III: Admit Cr improved from 2.16 to 1.9, will continue to monitor. - Diabetes type 2: Last HbA1c in Jul 2018 was 6.4. Will monitor glucose here. - Hypothyroidism: On home synthroid. - GERD: Rarely symptomatic per patient. On home ranitidine. - Hypertension: held meds due to acute systolic heart failure - Hyperlipidemia: Has allergies to statins. - Moderate MR, mild-moderate . Spent 35 minutes in management of patient. (2) Pulmonary edema: (3) Acute respiratory failure: Subjective Patient reports feeling improvement in regards to her breathing. Patient is now on nasal cannula. Patient reports she is tolerating nasal cannula at this time. She continues to have epigastric pain, she states that this is unrelated to her chest pain.She reports her chest pain has improved. Respiratory: + cough, + chest congestion, + dyspnea on exertion and + wheezing Cardiovascular: + chest pain at rest, + dyspnea, + dyspnea at rest, + palpitations and + edema Endocrine: + fatigue Physical Exam 2 Vital Signs (Past 24 Hours): Last Vital Signs Temp 36.5 C 11/15/18 16:00 Pulse 66 11/15/18 19:00 Resp 18 11/15/18 19:00 BP 134/57 L 11/15/18 19:00 Pulse Ox 90 11/15/18 19:00 Physical Exam: GENERAL: Awake, alert, well-appearing, now on nasal cannula HENT: Normocephalic, atraumatic. Oropharynx unremarkable. EYES: Normal conjunctiva. Sclera non-icteric. NECK: Inspection normal. Non-tender. Supple and full ROM. No nuchal rigidity. CARDIAC: +S1S2 RRR, 2/6 systolic murmurs. Left upper chest pacemaker in place. RESPIRATORY: decreased breath sounds decreased rales. GI: +BS, soft, non-distended. No tenderness to palpation. No rebound or guarding. No appreciable masses. EXTREMITIES: No pedal edema or calf tenderness. Moving all extremities naturally and easily. NEURO: No gross neuro deficits. _ (1) Pulmonary edema Chronicity: acute Qualified Code(s): J81.0 - Acute pulmonary edema (2) Acute respiratory failure Respiratory failure complication: hypoxia Qualified Code(s): J96.01 - Acute respiratory failure with hypoxia
[2018-11-16] MEDS: ACETAMINOPHEN 65 ML IV SCH ×2 (01:24→06:40)
[2018-11-16] MEDS: NITROGLYCERIN 2% OINTMENT 30GM TUBE EXT SCH ×2 (01:24→06:39)
[2018-11-16] MEDS: PROCHLORPERAZINE 10 MG in SYRINGE 8 ML IV PRN (02:45)
[2018-11-16] MEDS ORDERED: ALUMINUM/MAGNESIUM SUSP 72 ML, LIDOCAINE HCL VISCOUS 2% 24 ML, BARCODE IDENTIFIER 1 EA PO PRN (02:57)
[2018-11-16 06:12] LABS: Estimated Average Glucose 131 mg/dl; Hemoglobin A1C 6.2 % (4.5-5.6)
[2018-11-16] MEDS: LEVOTHYROXINE SODIUM 75 MCG TABLET PO SCH (06:40)
--- NOTE | 2018-11-16 06:46 | XRay Report ---
XR chest 1V portable CLINICAL HISTORY: Difficult chest pain COMPARISON STUDY: 11/15/2018 FINDINGS: The heart remains enlarged. There is a left subclavian dual-chamber central venous pacemake r present. There is radiographic evidence of congestive failure and interstitial pulmonary edema. The re are bilateral pleural effusions with associated basilar opacities likely representing compressive atelectasis.[ IMPRESSION: Congestive failure with mild interstitial edema. Cardiomegaly, bilateral pleural effusion s, and basilar opacities likely representing compressive atelectasis Electronically signed by: Dino Mcgee M.D. 11/16/2018 6:45 AM
[2018-11-16] MEDS: APIXABAN 5 MG TABLET PO SCH ×2 (08:12→21:29)
[2018-11-16] MEDS: ISOSORBIDE MONO EXTENDED REL 30 MG TABCR PO SCH (08:12)
[2018-11-16] MEDS: BUMETANIDE 2 MG in SYRINGE 0 ML IV SCH (08:13)
[2018-11-16] MEDS: INSULIN ASPART 100 UNITS/ML 3 ML PEN SC SCH ×4 (08:15→21:27)
--- NOTE | 2018-11-16 08:15 | Critical Care Progress Note ---
Date of Service November 16, 2018 Assessment & Plan (1) Acute on chronic combined systolic and diastolic CHF (congestive heart failure): 78-year-old female was admitted on 14 November 2018 for chest pain, shortness of breath, and palpitations. 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 No acute issues. Providing scheduled Tylenol IV for mild pain. Pulm: Mild interstitial pulmonary edema and bilateral pleural effusions, with slight improvement, on most recent CXR. Currently on NC oxygen with SpO2 in low 90s. CVS: Acute on chronic combined systolic and diastolic CHF. echo notes moderate-severe LV systolic function (slightly worse than echo), EF of 25-30%, and valvular disease. Has underlying ischemic cardiomyopathy and bradycardia (with pacemaker). See cardiology notes. Considering upgrade to biventricular device. Perhaps atrial flutter (PMH same) on admit, though presently in NSR, on amiodarone PO. On plavix. Admit TnI 0.061, trended to 0.122. Has chronic LBBB. PMH HTN and HLD as well. On imdur and scheduled bumex. - Stopping NTG paste. ID: Afebrile, WBC normalized, lactate negative, nasal MRSA negative. BCx NGTD. Endo: PMH hypothyroidism, on Synthroid. PMH DM2. HbA1c 6.2. On ICU hyperglycemic protocol. Renal/Lytes: PMH CKD stage III. Admit Cr 2.16, currently stable around her baseline. Electrolytes okay. - On KCl daily and bumex BID. GI: PMH esophageal spasm seen on [id number] EGD. On protonix. Has had some nausea. Abdomen remains soft and non-tender. Has Compazine and Zofran as needed. Heart healthy, DM diet. Heme: Admit Hb 13.4, stable around 11s. No known acute issues. DVT prophy: Eliquis for atrial flutter. Lines: PIV. Code status: Full code. PT/OT: Ordered. Disposition: Admitted to ICU. Possible downgrade to telemetry in the next 24 hours. (2) Pulmonary edema: (3) Pleural effusion: (4) Valvular heart disease: (5) Cardiomyopathy: (6) Pacemaker: (7) Atrial flutter: (8) Left bundle branch block: (9) HTN (hypertension): (10) HLD (hyperlipidemia): (11) Hypothyroidism: (12) DM II (diabetes mellitus, type II), controlled: (13) CKD (chronic kidney disease), stage III: (14) Esophageal spasm: (15) Anemia: Supervising Physician Co-Signing Physician Notes Dr. Lagos was resident physician during care of patient. I separately evaluated patient for [place] portions of the history and the exam. I was present during the critical portion of medical decision making, and I discussed the case with the resident. I generally agree with the findings and plan. Decreased Bumex to twice daily, once a day potassium supplementation Stable for downgrade to telemetry Patient was discussed on bedside rounds with multidisciplinary team. Subjective Patient says overnight she had a little bit of difficulty breathing. This is since improved. She says her epigastric discomfort is not yet resolved but also has improved since admission. Also says has a mild headache, possibly related to the NTG paste. Otherwise she denies any particular acute concerns. Physical Exam 2 Vital Signs (Past 24 Hours): Last Vital Signs Temp 36.4 C L 11/16/18 04:01 Pulse 69 11/16/18 07:01 Resp 22 11/16/18 07:01 BP 153/66 H 11/16/18 07:01 Pulse Ox 93 11/16/18 07:01 Physical Exam: General Appearance: Awake, alert & oriented, comfortable in general, NAD. CV: +S1S2 RRR, no murmur. Pulm: Improved but decreased breath sounds at bilateral bases. On NC oxygen. Abdomen: +BS, soft, non-tender, non-distended. Extremities: No pedal edema or calf tenderness. Moving all extremities naturally and easily. Neuro: No gross neuro deficits. Results & Data Laboratory Results 11/16/18 11/16/18 11/16/18 Range/Units 08:37 08:37 07:52 WBC 9.16 (4.8-10.8) K/uL RBC 3.37 L (4.2-5.4) M/uL Hgb 11.1 L (12.0-16.0) g/dL Hct 34.8 L (37-47) % MCV 103.3 H (80-100) fL MCH 32.9 (25-34) pg MCHC 31.9 L (32-36) g/dL RDW Std Deviation 56.2 H (36.4-46.3) fL RDW Coeff of Manuela 14.9 H (11.5-14.5) % Plt Count 237 (130-400) K/uL MPV 10.9 H (7.4-10.4) fL Immature Gran % (Auto) 0.2 % Neut % (Auto) 71.8 % Lymph % (Auto) 15.8 % [place] % (Auto) 9.7 % Eos % (Auto) 2.3 % Baso % (Auto) 0.2 % Immature Gran # (Auto) 0.02 (0.00-0.02) K/uL Neut # (Auto) 6.57 H (1.4-6.5) K/uL Lymph # (Auto) 1.45 (1.2-3.4) K/uL [place] # (Auto) 0.89 H (0.11-0.59) K/uL Eos # (Auto) 0.21 (0-0.5) K/uL Baso # (Auto) 0.02 (0-0.2) K/uL Sodium 137 (136-145) mmol/L Potassium 4.3 (3.5-5.1) mmol/L Chloride 100 (98-107) mmol/L Carbon Dioxide 31 (21-32) mmol/L Anion Gap 5.0 (3-11) BUN 33 H (7-18) mg/dl Creatinine 2.04 H (0.6-1.2) mg/dl Est Cr Clr Drug Dosing 26.7 ml/min Est GFR ( Amer) 26.2 Est GFR (Non-Af Amer) 22.6 BUN/Creatinine Ratio 16.4 (10-20) Glucose 180 H (70-99) mg/dl POC Glucose 166 H (70-99) Estimat Average Glucose mg/dl Hemoglobin A1c (4.5-5.6) % Calcium 8.6 (8.5-10.1) mg/dl Phosphorus 3.6 (2.5-4.9) mg/dl Magnesium 2.5 H (1.8-2.4) mg/dl Troponin I (0-0.045) ng/ml 11/16/18 11/16/18 11/15/18 Range/Units 04:07 04:07 20:38 WBC (4.8-10.8) K/uL RBC (4.2-5.4) M/uL Hgb (12.0-16.0) g/dL Hct (37-47) % MCV (80-100) fL MCH (25-34) pg MCHC (32-36) g/dL RDW Std Deviation (36.4-46.3) fL RDW Coeff of Manuela (11.5-14.5) % Plt Count (130-400) K/uL MPV (7.4-10.4) fL Immature Gran % (Auto) % Neut % (Auto) % Lymph % (Auto) % [place] % (Auto) % Eos % (Auto) % Baso % (Auto) % Immature Gran # (Auto) (0.00-0.02) K/uL Neut # (Auto) (1.4-6.5) K/uL Lymph # (Auto) (1.2-3.4) K/uL [place] # (Auto) (0.11-0.59) K/uL Eos # (Auto) (0-0.5) K/uL Baso # (Auto) (0-0.2) K/uL Sodium (136-145) mmol/L Potassium (3.5-5.1) mmol/L Chloride (98-107) mmol/L Carbon Dioxide (21-32) mmol/L Anion Gap (3-11) BUN (7-18) mg/dl Creatinine (0.6-1.2) mg/dl Est Cr Clr Drug Dosing ml/min Est GFR ( Amer) Est GFR (Non-Af Amer) BUN/Creatinine Ratio (10-20) Glucose (70-99) mg/dl POC Glucose 142 H (70-99) Estimat Average Glucose 131 mg/dl Hemoglobin A1c 6.2 H (4.5-5.6) % Calcium (8.5-10.1) mg/dl Phosphorus (2.5-4.9) mg/dl Magnesium (1.8-2.4) mg/dl Troponin I 0.122 H* (0-0.045) ng/ml 11/15/18 11/15/18 11/15/18 Range/Units 16:34 15:53 11:26 WBC (4.8-10.8) K/uL RBC (4.2-5.4) M/uL Hgb (12.0-16.0) g/dL Hct (37-47) % MCV (80-100) fL MCH (25-34) pg MCHC (32-36) g/dL RDW Std Deviation (36.4-46.3) fL RDW Coeff of Manuela (11.5-14.5) % Plt Count (130-400) K/uL MPV (7.4-10.4) fL Immature Gran % (Auto) % Neut % (Auto) % Lymph % (Auto) % [place] % (Auto) % Eos % (Auto) % Baso % (Auto) % Immature Gran # (Auto) (0.00-0.02) K/uL Neut # (Auto) (1.4-6.5) K/uL Lymph # (Auto) (1.2-3.4) K/uL [place] # (Auto) (0.11-0.59) K/uL Eos # (Auto) (0-0.5) K/uL Baso # (Auto) (0-0.2) K/uL Sodium 137 (136-145) mmol/L Potassium 3.9 (3.5-5.1) mmol/L Chloride 99 (98-107) mmol/L Carbon Dioxide 31 (21-32) mmol/L Anion Gap 7.0 (3-11) BUN 32 H (7-18) mg/dl Creatinine 1.99 H (0.6-1.2) mg/dl Est Cr Clr Drug Dosing 27.4 ml/min Est GFR ( Amer) 27.0 Est GFR (Non-Af Amer) 23.3 BUN/Creatinine Ratio 16.1 (10-20) Glucose 94 (70-99) mg/dl POC Glucose 95 194 H (70-99) Estimat Average Glucose mg/dl Hemoglobin A1c (4.5-5.6) % Calcium 8.3 L (8.5-10.1) mg/dl Phosphorus (2.5-4.9) mg/dl Magnesium (1.8-2.4) mg/dl Troponin I (0-0.045) ng/ml Medications Administered Current Inpatient Medications Amiodarone HCl (Cordarone) 200 mg PO QPM ANDREW Stop: 12/14/18 20:59 Last Admin: 11/15/18 21:06 Dose: 200 mg Apixaban (Eliquis) 5 mg PO BID [facility] Stop: 12/14/18 08:59 Last Admin: 11/16/18 08:12 Dose: 5 mg Clopidogrel Bisulfate (Plavix) 75 mg PO QPM [facility] Stop: 12/14/18 20:59 Last Admin: 11/15/18 21:06 Dose: 75 mg Pantoprazole Sodium 40 mg/ (Syringe) 10 mls @ 5 mls/min IV DAILY@1100 [facility] Stop: 12/14/18 10:59 Last Admin: 11/16/18 11:11 Dose: 5 mls/min Prochlorperazine 10 mg/ (Syringe) 10 mls @ 5 mls/min IV Q6 PRN PRN Reason: Nausea And Vomiting Stop: 12/15/18 08:26 Last Admin: 11/16/18 02:45 Dose: 5 mls/min Acetaminophen (Ofirmev) 65 mls @ 200 mls/hr IV Q6H [facility] Stop: 12/16/18 00:59 Last Infusion: 11/16/18 07:11 Dose: Infused Bumetanide 2 mg/ Syringe 8 mls @ 4 mls/min IV BID [facility] Stop: 12/16/18 16:59 Insulin Aspart (Novolog Flexpen) 0 units SC ACHS [facility] Stop: 12/14/18 11:59 Last Admin: 11/16/18 08:15 Dose: 4 units Insulin Glargine (Lantus Solostar Pen) 7 units SC QAM [facility] Stop: 12/16/18 08:59 Last Admin: 11/16/18 08:17 Dose: 7 units Isosorbide Mononitrate (Imdur Extended Rel) 30 mg PO QAM [facility] Stop: 12/15/18 08:59 Last Admin: 11/16/18 08:12 Dose: 30 mg Levothyroxine Sodium (Synthroid) 75 mcg PO DAILYBB [facility] Stop: 12/15/18 06:29 Last Admin: 11/16/18 06:40 Dose: 75 mcg Metolazone (Zaroxolyn) 5 mg PO ONCE [facility] Stop: 12/16/18 10:14 Miscellaneous Information (Consult Glycemic Management Pharmacy) 1 ea N/A UD PRN PRN Reason: Consult Stop: 12/14/18 09:35 Ondansetron HCl (Zofran) 4 mg IV Q8H PRN PRN Reason: Nausea Stop: 12/14/18 21:22 Potassium Chloride (Klor-Con M20) 40 meq PO QAM ANDREW Stop: 12/17/18 08:59 Resident Activity Tracking Resident Involvement: Resident Care Provided Care Provided: [facility] Medicine _ (1) Atrial flutter Atrial flutter type: unspecified Qualified Code(s): I48.92 - Unspecified atrial flutter (2) HLD (hyperlipidemia) Hyperlipidemia type: mixed hyperlipidemia Qualified Code(s): E78.2 - Mixed hyperlipidemia (3) Hypothyroidism Hypothyroidism type: acquired Qualified Code(s): E03.9 - Hypothyroidism, unspecified (4) Pulmonary edema Chronicity: acute Qualified Code(s): J81.0 - Acute pulmonary edema (5) DM II (diabetes mellitus, type II), controlled Chronic kidney disease stage: Diabetes mellitus complication detail: with nephropathy Diabetes mellitus complication status: with kidney complications 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
--- NOTE | 2018-11-16 08:44 | XRay Report ---
XR chest 1V portable CLINICAL HISTORY: hypoxia COMPARISON STUDY: 11/16/2018 FINDINGS: The heart remains enlarged. There is radiographic evidence of congestive failure/fluid over load. There are moderate bilateral pleural effusions. There are associated basilar airspace opacities , likely representing compressive atelectasis. There is a left subclavian dual-chamber central venous pacemaker.[ IMPRESSION: Congestive failure/fluid overload with slight improvement in the interstitial edema. Pers istent cardiomegaly, and moderate bilateral pleural effusions. Basilar opacities, likely representing compressive atelectasis Electronically signed by: Dino Mcgee M.D. 11/16/2018 8:43 AM
[2018-11-16 08:49] LABS: Basophils # (auto) 0.02 K/uL (0-0.2); Basophils % (auto) 0.2 %; Eosinophils # (auto) 0.21 K/uL (0-0.5); Eosinophils % (auto) 2.3 %; Hematocrit (blood only) 34.8 % (37-47); Hemoglobin 11.1 g/dL (12.0-16.0); Immature Granulocytes # (auto) 0.02 K/uL (0.00-0.02); Immature Granulocytes % (auto) 0.2 %; Lymphocytes # (auto) 1.45 K/uL (1.2-3.4); Lymphocytes % (auto) 15.8 %; Mean Corpuscular Volume 103.3 fL (80-100); Mean Platelet Volume 10.9 fL (7.4-10.4); Monocytes # (auto) 0.89 K/uL (0.11-0.59); Monocytes % (auto) 9.7 %; Neutrophils # (auto) 6.57 K/uL (1.4-6.5); Neutrophils % (auto) 71.8 %; Platelet Count 237 K/uL (130-400); RDW Coefficient of Variation 14.9 % (11.5-14.5); RDW Standard Deviation 56.2 fL (36.4-46.3); Red Blood Count 3.37 M/uL (4.2-5.4); White Blood Count 9.16 K/uL (4.8-10.8)
[2018-11-16 08:57] LABS: Mean Corpuscular Hgb Conc 31.9 g/dL (32-36)
[2018-11-16] MEDS ORDERED: INSULIN GLARGINE SOLOSTAR 100 UNITS/ML 3 ML PEN SC SCH (09:00)
[2018-11-16 09:05] LABS: BUN Creatinine Ratio 16.4 (10-20); Calcium 8.6 mg/dl (8.5-10.1); Creatinine Clr Calc Pharmacy 26.7 ml/min; Est GFR (African American) 26.2; Est GFR (Non-African American) 22.6; Magnesium 2.5 mg/dl (1.8-2.4); Phosphorus 3.6 mg/dl (2.5-4.9); Potassium 4.3 mmol/L (3.5-5.1)
--- NOTE | 2018-11-16 09:44 | Cardiology Progress Note ---
Date of Service November 16, 2018 Assessment & Plan (1) Acute on chronic combined systolic and diastolic CHF (congestive heart failure): She noted increased shortness of breath last evening, and continues to note mild shortness of breath sitting upright this morning. She has diuresed about 1.5 L thus far. Continue IV Bumex BID. Will give a dose of metolazone 5 mg 30 minutes prior to her afternoon Bumex dose for additional diuresis. Monitor I's and O's closely. Daily weights. Low sodium diet, <2,000 mg daily. (2) NSTEMI (non-ST elevated myocardial infarction): Her troponin was slightly elevated this admission with a peak of 0.35. It has since trended downward. The elevation is likely secondary to demand ischemia in the setting of renal insufficiency and acute CHF. Her presentation is not consistent with an ACS. (3) Cardiomyopathy: Her LV EF appears to have worsened compared to her last study in September 2018. Her LV EF is now 25-30%. Her heart failure medications will need to be optimized once she is stable from a CHF standpoint. IF her EF remains reduced, she may be a candidate for a biventricular device. (4) Atrial flutter: She is currently atrial-paced. Continue amiodarone. Continue Eliquis for thromboembolic prophylaxis. Her Eliquis is dosed appropriately. Patient was discussed with Dr. Sanchez. Supervising Physician Co-Signing Physician Notes Still having some dyspnea. Will attempt to increase diuresis. Still in sinus rhythm. Monitor renal function and electrolytes. Subjective The patient states that last evening, after getting up to use the restroom, she became acutely short of breath and noted chest tightness. Her oxygen was increased from 3 to 5 L. Repeat CXR and ECG were performed. The CXR showed congestive failure with slight improvement in interstitial edema, moderate bilateral pleural effusions, and basilar opacities. ECG showed atrial-paced rhythm with prolonged AV conduction and LBBB. She states that her breathing gradually improved, but she had to sleep in her chair the rest of the night so that she was sitting completely upright. She continues to feel mildly short of breath at this time with some slight chest tightness. She states that she has not been eating or drinking much. She denies palpitations. She notes some orthostatic lightheadedness. Physical Exam 2 Vital Signs (Past 24 Hours): Last Vital Signs Temp 36.6 C 11/16/18 08:00 Pulse 67 11/16/18 09:00 Resp 17 11/16/18 09:00 BP 125/59 L 11/16/18 09:00 Pulse Ox 92 11/16/18 09:00 Constitutional: Alert, oriented, in no acute distress HEENT: Head is atraumatic and normocephalic. EOMs intact. Sclera anicteric. Face is symmetric. No perioral cyanosis. Mucous membranes moist. Neck: Supple, JVD noted 1/[address] to the angle of the mandible at 90 degrees , +HJR Pulmonary: Normal respiratory effort, decreased breath sounds bilateral lower lung humphries with some crackles Cardiac: Regular rate and rhythm, normal S1 and S2, no gallops, no rubs, 3/6 basal systolic murmur, 2/6 apical holosystolic murmur Extremities: Trace pretibial edema bilaterally. No clubbing or cyanosis. Pulses intact Abdomen: Normal bowel sounds, soft, non-tender, no abdominal mass palpated Skin: Normal skin color, turgor, and pigmentation, no rash, no skin lesions Neurological: Oriented to person, place, and time Results & Data Laboratory Results Laboratory Results WBC 9.16 K/uL (4.8-10.8) 11/16/18 08:37 RBC 3.37 M/uL (4.2-5.4) L 11/16/18 08:37 Hgb 11.1 g/dL (12.0-16.0) L 11/16/18 08:37 Hct 34.8 % (37-47) L 11/16/18 08:37 MCV 103.3 fL (80-100) H 11/16/18 08:37 MCH 32.9 pg (25-34) 11/16/18 08:37 MCHC 31.9 g/dL (32-36) L 11/16/18 08:37 RDW Std Deviation 56.2 fL (36.4-46.3) H 11/16/18 08:37 RDW Coeff of Manuela 14.9 % (11.5-14.5) H 11/16/18 08:37 Plt Count 237 K/uL (130-400) 11/16/18 08:37 MPV 10.9 fL (7.4-10.4) H 11/16/18 08:37 Immature Gran % (Auto) 0.2 % 11/16/18 08:37 Neut % (Auto) 71.8 % 11/16/18 08:37 Lymph % (Auto) 15.8 % 11/16/18 08:37 [place] % (Auto) 9.7 % 11/16/18 08:37 Eos % (Auto) 2.3 % 11/16/18 08:37 Baso % (Auto) 0.2 % 11/16/18 08:37 Immature Gran # (Auto) 0.02 K/uL (0.00-0.02) 11/16/18 08:37 Neut # (Auto) 6.57 K/uL (1.4-6.5) H 11/16/18 08:37 Lymph # (Auto) 1.45 K/uL (1.2-3.4) 11/16/18 08:37 [place] # (Auto) 0.89 K/uL (0.11-0.59) H 11/16/18 08:37 Eos # (Auto) 0.21 K/uL (0-0.5) 11/16/18 08:37 Baso # (Auto) 0.02 K/uL (0-0.2) 11/16/18 08:37 PT 10.6 Seconds (9.0-12.0) 11/14/18 06:25 INR 1.1 (0.9-1.1) 11/14/18 06:25 ABG pH 7.39 (7.35-7.45) 11/14/18 06:42 ABG pCO2 50 mmHg (35-46) H 11/14/18 06:42 ABG pO2 62 mm/Hg (80-95) L 11/14/18 06:42 ABG HCO3 30 mmol/L (19-24) H 11/14/18 06:42 ABG O2 Saturation 90.7 % (90-95) 11/14/18 06:42 ABG Base Excess 3.7 mEq/L (-9-1.8) H 11/14/18 06:42 Alexander Test Pos (Pos) 11/14/18 06:42 Barometric Pressure 726.3 mm/Hg 11/14/18 06:42 Oxygen Given 50% 11/14/18 06:42 Sodium 137 mmol/L (136-145) 11/16/18 08:37 Potassium 4.3 mmol/L (3.5-5.1) 11/16/18 08:37 Chloride 100 mmol/L (98-107) 11/16/18 08:37 Carbon Dioxide 31 mmol/L (21-32) 11/16/18 08:37 Anion Gap 5.0 (3-11) 11/16/18 08:37 BUN 33 mg/dl (7-18) H 11/16/18 08:37 Creatinine 2.04 mg/dl (0.6-1.2) H 11/16/18 08:37 Est Cr Clr Drug Dosing 26.7 ml/min 11/16/18 08:37 Est GFR ( Amer) 26.2 11/16/18 08:37 Est GFR (Non-Af Amer) 22.6 11/16/18 08:37 BUN/Creatinine Ratio 16.4 (10-20) 11/16/18 08:37 Glucose 180 mg/dl (70-99) H 11/16/18 08:37 POC Glucose 166 (70-99) H 11/16/18 07:52 Estimat Average Glucose 131 mg/dl 11/16/18 04:07 Hemoglobin A1c 6.2 % (4.5-5.6) H 11/16/18 04:07 Lactate 1.5 mmol/L (0.4-2.0) 11/14/18 06:25 Calcium 8.6 mg/dl (8.5-10.1) 11/16/18 08:37 Phosphorus 3.6 mg/dl (2.5-4.9) 11/16/18 08:37 Magnesium 2.5 mg/dl (1.8-2.4) H 11/16/18 08:37 Total Bilirubin 0.6 mg/dl (0.2-1) 11/14/18 06:25 Direct Bilirubin 0.1 mg/dl (0-0.2) 11/14/18 06:25 AST 43 U/L (15-37) H 11/14/18 06:25 ALT 50 U/L (12-78) 11/14/18 06:25 Alkaline Phosphatase 168 U/L (45-117) H 11/14/18 06:25 Troponin I 0.122 ng/ml (0-0.045) H* 11/16/18 04:07 NT-Pro-B Natriuret Pep 2920 pg/ml (0-1800) H 11/14/18 06:25 Total Protein 8.1 gm/dl (6.4-8.2) 11/14/18 06:25 Albumin 3.8 gm/dl (3.4-5.0) 11/14/18 06:25 Nasal Screen MRSA (PCR) Negative (Negative) 11/14/18 10:00 Digoxin 1.0 ng/ml (0.8-2.0) 11/14/18 06:25 _ (1) Atrial flutter Atrial flutter type: unspecified Qualified Code(s): I48.92 - Unspecified atrial flutter
[2018-11-16] MEDS: PANTOprazole 40 MG in SYRINGE 0 ML IV SCH (11:11)
[2018-11-16] MEDS: POTASSIUM CHLORIDE 20 MEQ TABCR PO SCH (11:12)
[2018-11-16] MEDS ORDERED: ACETAMINOPHEN 65 ML IV PRN (11:51)
[2018-11-16] MEDS ORDERED: metOLazone 5 MG TABLET PO ONE (16:30)
[2018-11-16] MEDS ORDERED: BUMETANIDE 2 MG in SYRINGE 0 ML IV SCH (17:00)
[2018-11-16] MEDS: INSULIN GLARGINE SOLOSTAR 100 UNITS/ML 3 ML PEN SC SCH (21:29)
[2018-11-16] MEDS: AMIODARONE 200 MG TAB PO SCH (21:29)
[2018-11-16] MEDS: CLOPIDOGREL BISULFATE 75 MG TAB PO SCH (21:30)
[2018-11-17] MEDS ORDERED: ACETAMINOPHEN 325 MG TAB PO PRN (00:42)
[2018-11-17] MEDS ORDERED: ACETAMINOPHEN 325 MG TAB ONE (01:11)
[2018-11-17] MEDS: LEVOTHYROXINE SODIUM 75 MCG TABLET PO SCH ×2 (06:41→07:44)
[2018-11-17] MEDS: INSULIN ASPART 100 UNITS/ML 3 ML PEN SC SCH ×4 (08:50→21:38)
[2018-11-17] MEDS: APIXABAN 5 MG TABLET PO SCH ×2 (08:50→21:36)
[2018-11-17] MEDS: POTASSIUM CHLORIDE 20 MEQ TABCR PO SCH (08:51)
[2018-11-17] MEDS: ISOSORBIDE MONO EXTENDED REL 30 MG TABCR PO SCH (08:51)
[2018-11-17] MEDS: INSULIN GLARGINE SOLOSTAR 100 UNITS/ML 3 ML PEN SC SCH ×2 (08:51→21:37)
--- NOTE | 2018-11-17 08:54 | Cardiology Progress Note ---
Date of Service November 17, 2018 Assessment & Plan (1) Acute on chronic combined systolic and diastolic CHF (congestive heart failure): From a symptomatic standpoint, she has improved but still remains hypervolemic. Recommend increasing Bumex to 3 mg IV twice daily. Diuril 250 mg IV x1 now. Strict I&Os. Daily weights. Low-sodium diet. Would try to achieve at least 1 L negative fluid balance today. (2) Aortic stenosis, mild: Non severe. Continue to monitor. (3) Cardiomyopathy: LV systolic function was reported as significantly reduced. Would resume carvedilol at home dose and titrate as tolerated. Consideration for biventricular ICD. She follows with EP. She has not tolerated Sudhir inhibitors or ARBs. (4) Coronary artery disease: She has prior PCI within her LAD. No angina. Continue anti-platelet therapy. Resume home dose of beta-estephania. She has not tolerated statin therapy. (5) Atrial flutter: History of paroxysmal atrial flutter. On amiodarone. Pacemaker in place for symptomatic sinus bradycardia in the past. On anticoagulation therapy for stroke risk reduction. (6) Mitral regurgitation: Mitral regurgitation reported as severe. This could be secondary to hypervolemia but also, severe mitral regurgitation could contribute to her CHF and reduced LV systolic function as well as elevated pulmonary pressures. Would recommend repeating echo when euvolemic, to re-evaluate mitral regurgitation. (7) Pulmonary hypertension: Elevated RVSP may be secondary to her CHF exacerbation/left heart failure. Would recommend repeating echocardiogram once euvolemic, which could be done as an outpatient. If RVSP remains elevated and mitral regurgitation remains severe, could then consider addressing her mitral valve surgically. Disposition: Continue diuresis as above. Subjective Her breathing is better but not back to baseline. She still has orthopnea. She has dyspnea with exertion. She denies chest pain, syncope, near-syncope, palpitations, or bleeding. Review of systems: As above. Physical Exam 2 Vital Signs (Past 24 Hours): Last Vital Signs Temp 37.0 C 11/17/18 08:26 Pulse 88 11/17/18 08:26 Resp 18 11/17/18 08:26 BP 138/69 11/17/18 08:26 Pulse Ox 96 11/17/18 08:26 Intake & Output 11/15/18 11/16/18 11/17/18 11/18/18 06:59 06:59 06:59 06:59 Intake Total 0 / 0 1261.134 / 1261.13 4 1005 / 1005 Output Total 1600 / 1600 1425 / 1425 1050 / 1050 Balance -1600 / -1600 -163.866 / -163.86 6 -45 / -45 Weight 103.873 kg 99.9 kg Physical Exam: Gen.: No acute distress. Alert and oriented. HEENT: Anicteric sclera. Neck: JVD prison to the mandible with head elevated approximately 45. Cardiac: Regular. Normal S1-S2. 3/6 holosystolic murmur. No rubs, or gallops. Pulmonary: Decreased breath sounds at the bases but otherwise clear to auscultation bilaterally without wheezes, rales, or rhonchi. Abdomen: Soft, nontender, nondistended, with normoactive bowel sounds. No bruits noted. Extremities: Trace bilateral lower extremity pitting edema. No cyanosis. Psychiatric: Affect appears appropriate. Results & Data Laboratory Results Laboratory Results - last 24 hr 11/16/18 11/16/18 11/16/18 08:37 08:37 11:14 MCHC 31.9 L Sodium 137 Potassium 4.3 Chloride 100 Carbon Dioxide 31 Anion Gap 5.0 BUN 33 H Creatinine 2.04 H Est Cr Clr Drug Dosing 26.7 Est GFR ( Amer) 26.2 Est GFR (Non-Af Amer) 22.6 BUN/Creatinine Ratio 16.4 Glucose 180 H POC Glucose 141 H Calcium 8.6 Phosphorus 3.6 Magnesium 2.5 H 11/16/18 11/16/18 11/17/18 15:58 21:20 07:42 MCHC Sodium Potassium Chloride Carbon Dioxide Anion Gap BUN Creatinine Est Cr Clr Drug Dosing Est GFR ( Amer) Est GFR (Non-Af Amer) BUN/Creatinine Ratio Glucose POC Glucose 142 H 125 H 112 H Calcium Phosphorus Magnesium Diagnostic Findings Telemetry personally reviewed: Paced. Echo report reviewed: Echo 11/14/2018: Grossly normal LV size with severely reduced systolic function. EF 25-30%. Septal dyskinesis. Moderate anterior hypokinesis with mild global hypokinesis of the remaining segments. Mild LVH. Severe MR. Mild . RVSP greater than 60. Medications Administered Current Inpatient Medications Acetaminophen (Tylenol) 650 mg PO Q4H PRN PRN Reason: Pain or Fever Stop: 12/17/18 00:41 Amiodarone HCl (Cordarone) 200 mg PO QPM [facility] Stop: 12/14/18 20:59 Last Admin: 11/16/18 21:29 Dose: 200 mg Apixaban (Eliquis) 5 mg PO BID [facility] Stop: 12/14/18 08:59 Last Admin: 11/16/18 21:29 Dose: 5 mg Clopidogrel Bisulfate (Plavix) 75 mg PO QPM [facility] Stop: 12/14/18 20:59 Last Admin: 11/16/18 21:30 Dose: 75 mg Pantoprazole Sodium 40 mg/ (Syringe) 10 mls @ 5 mls/min IV DAILY@1100 [facility] Stop: 12/14/18 10:59 Last Admin: 11/16/18 11:11 Dose: 5 mls/min Prochlorperazine 10 mg/ (Syringe) 10 mls @ 5 mls/min IV Q6 PRN PRN Reason: Nausea And Vomiting Stop: 12/15/18 08:26 Last Admin: 11/16/18 02:45 Dose: 5 mls/min Acetaminophen (Ofirmev) 65 mls @ 200 mls/hr IV Q6H PRN PRN Reason: Pain Stop: 12/16/18 00:59 Chlorothiazide Sodium 250 mg/ (Dextrose) 59 mls @ 200 mls/hr IV NOW ONE Stop: 11/17/18 09:17 Bumetanide 3 mg/ Syringe 12 mls @ 4 mls/min IV BID@0900,1700 ON [facility] Stop: 12/17/18 09:29 Insulin Aspart (Novolog Flexpen) 0 units SC ACHS [facility] Stop: 12/14/18 11:59 Last Admin: 11/16/18 21:27 Dose: Not Given Insulin Glargine (Lantus Solostar Pen) 7 units SC BID [facility] Stop: 12/16/18 20:59 Last Admin: 11/16/18 21:29 Dose: 7 units Isosorbide Mononitrate (Imdur Extended Rel) 30 mg PO QAM [facility] Stop: 12/15/18 08:59 Last Admin: 11/16/18 08:12 Dose: 30 mg Levothyroxine Sodium (Synthroid) 75 mcg PO DAILYBB [facility] Stop: 12/15/18 06:29 Last Admin: 11/17/18 07:44 Dose: 75 mcg Miscellaneous Information (Consult Glycemic Management Pharmacy) 1 ea N/A UD PRN PRN Reason: Consult Stop: 12/14/18 09:35 Ondansetron HCl (Zofran) 4 mg IV Q8H PRN PRN Reason: Nausea Stop: 12/14/18 21:22 Potassium Chloride (Klor-Con M20) 40 meq PO QAM ANDREW Stop: 12/17/18 08:59 _ (1) Atrial flutter Atrial flutter type: unspecified Qualified Code(s): I48.92 - Unspecified atrial flutter
[2018-11-17] MEDS ORDERED: CHLOROTHIAZIDE SODIUM 250 MG in DEXTROSE 5% 50 ML IV ONE (09:00)
--- NOTE | 2018-11-17 09:15 | Pharmacy Report ---
Pharmacy Glycemic Short Note 2 - Date of Service November 17, 2018 - Glycemic Short BSG Results (Last 24 hours): 11/16/18 11/16/18 11/16/18 11:14 15:58 21:20 POC Glucose 141 H 142 H 125 H 11/17/18 07:42 POC Glucose 112 H OUTPATIENT ANTIDIABETIC REGIMEN: * Novolog 70-30 10-25 units BIDM * Outpatient regimen is premixed basal/prandial insulin * Pre-mixed insulin is difficult to titrate since it is already in a fixed distribution of basal:prandial insulin. Continuing pre-mixed insulin for admission typically lead to hypoglycemia d/t changing PO status but rapid acting insulin is unable to be held. * Home regimen will be held for admission per pharmacy consult. Will utilize recommended regimen of SQ basal bolus insulin regimen with Lantus + NovoLog (CF+ CR) ASSESSMENT: * Patient has been receiving ~25 units of insulin per day with adequate control * 14 units of basal insulin with Lantus * 10-11 units of prandial insulin with NovoLog * AM fasting BSG is in goal range at 112 mg/dl. Trending downwards from 166mg/ dl yesterday - basal dose decrease may be necessary if downward trend continues. However, current insulin dosing is significantly less than outpatient dosing. will re-evaluate this afternoon and titrate as needed. * Post-prandial BSGs in goal range. No changes needed to CF/CR PLAN FOR INPATIENT GLYCEMIC CONTROL: * Hold outpatient pre-mixed insulin * Basal insulin * Lantus 7 units SQ BID * Bolus insulin * NovoLog per scale ACHS or Q6hrs while NPO * Goal Range: Low 120 mg/dL - High 160 mg/dL * Correction Factor: 20 mg/dL/unit * Nutritional / Prandial insulin per carb ratio of 1 unit per 10 grams CHO consumed
[2018-11-17 09:35] LABS: Hematocrit (blood only) 36.3 % (37-47); Hemoglobin 11.8 g/dL (12.0-16.0); Mean Corpuscular Hgb Conc 32.5 g/dL (32-36); Mean Corpuscular Volume 102.3 fL (80-100); Mean Platelet Volume 10.8 fL (7.4-10.4); Platelet Count 268 K/uL (130-400); RDW Coefficient of Variation 14.5 % (11.5-14.5); Red Blood Count 3.55 M/uL (4.2-5.4); White Blood Count 8.22 K/uL (4.8-10.8)
[2018-11-17 10:04] LABS: BUN Creatinine Ratio 16.8 (10-20); Calcium 8.9 mg/dl (8.5-10.1); Creatinine Clr Calc Pharmacy 29.7 ml/min; Est GFR (African American) 30.5; Est GFR (Non-African American) 26.3; Magnesium 2.3 mg/dl (1.8-2.4); Phosphorus 3.8 mg/dl (2.5-4.9); Potassium 3.5 mmol/L (3.5-5.1)
[2018-11-17] MEDS: CARVEDILOL 3.125 MG TAB PO SCH ×2 (10:11→21:37)
[2018-11-17] MEDS: BUMETANIDE 3 MG in SYRINGE 0 ML IV SCH ×2 (11:48→16:30)
[2018-11-17] MEDS: PANTOprazole 40 MG in SYRINGE 0 ML IV SCH (11:48)
[2018-11-17] MEDS ORDERED: CARBOHYDRATES FOR HYPOGLYCEMIA PO PRN (15:24)
[2018-11-17] MEDS ORDERED: GLUCOSE 10 TABS/TUBE PO PRN (15:29)
[2018-11-17] MEDS ORDERED: GLUCOSE 40% GEL 15 GM TUBE PO PRN (15:29)
[2018-11-17] MEDS ORDERED: DEXTROSE 50% 50 ML SYRINGE IV PRN (15:29)
[2018-11-17] MEDS ORDERED: GLUCAGON FOR INJ 1 MG VIAL IM PRN (15:29)
--- NOTE | 2018-11-17 16:23 | Hospitalist Progress Note ---
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 Echo shows EF of 25%. May need implantable defibrillator. Patient was admitted to the Intensive care unit. As patient has continously improved, will transfer patient out of the ICU. Patient respiratory status has improved with diuretics. Will continue to diurese, patient remains on Bumex . Patient lost 1.7 liters over past 24 hours. Patient is still tolerating nasal cannula. Will continue to hold beta estephania, dig and lacho inhibitor in this acute phase of her CHF. D/W wincher. D/W learning consultant. - CAD: On home Plavix. Has allergy to ASA. - Paroxysmal atrial flutter: Held betablocker On home amiodarone. - CKD stage III: Admit Cr improved from 2.16 to 2.04 (slightly worse than yesterday:1.9), will continue to monitor. - Diabetes type 2: Last HbA1c in Jul 2018 was 6.4. Will monitor glucose here. - Hypothyroidism: On home synthroid. - GERD: Rarely symptomatic per patient. On home ranitidine. - Hypertension: held meds due to acute systolic heart failure - Hyperlipidemia: Has allergies to statins. - Moderate MR, mild-moderate . Spent 35 minutes in management. (2) Pulmonary edema: (3) Acute on chronic combined systolic and diastolic CHF (congestive heart failure): Subjective Patient reports feeling improvement in regards to her breathing. Patient continues to tolerate nasal canula. She denies any abdominal pain chest pain, nausea, vomiting today. Patient however reports that when she ambulated to the rest room she had shortness of breath on exertion accompanied by chest tightness. This subsided at rest. Respiratory: + cough, + chest congestion, + dyspnea on exertion and + wheezing Cardiovascular: + chest pain at rest, + dyspnea, + dyspnea at rest, + palpitations and + edema Endocrine: + fatigue Physical Exam 2 Vital Signs (Past 24 Hours): Last Vital Signs Temp 36.8 C 11/16/18 12:00 Pulse 67 11/16/18 12:00 Resp 19 11/16/18 12:00 BP 137/57 11/16/18 12:00 Pulse Ox 88 11/16/18 12:00 Physical Exam: GENERAL: Awake, alert, well-appearing, now on nasal cannula HEENT: Normocephalic, atraumatic. Oropharynx unremarkable. EYES: Normal conjunctiva. Sclera non-icteric. NECK: Inspection normal. Non-tender. Supple and full ROM. No nuchal rigidity. CARDIAC: +S1S2 RRR, 2/6 systolic murmurs. Left upper chest pacemaker in place. RESPIRATORY: decreased breath sounds decreased rales. GI: +BS, soft, non-distended. No tenderness to palpation. No rebound or guarding. No appreciable masses. EXTREMITIES: No pedal edema or calf tenderness. Moving all extremities naturally and easily. NEURO: No gross neuro deficits. _ (1) Pulmonary edema Chronicity: acute Qualified Code(s): J81.0 - Acute pulmonary edema
[2018-11-17] MEDS: CLOPIDOGREL BISULFATE 75 MG TAB PO SCH (21:36)
[2018-11-17] MEDS: AMIODARONE 200 MG TAB PO SCH (21:37)
[2018-11-18] MEDS: LEVOTHYROXINE SODIUM 75 MCG TABLET PO SCH (06:13)
[2018-11-18] MEDS: POTASSIUM CHLORIDE 20 MEQ TABCR PO SCH (08:22)
[2018-11-18] MEDS: CARVEDILOL 3.125 MG TAB PO SCH ×2 (08:22→21:42)
[2018-11-18] MEDS: ISOSORBIDE MONO EXTENDED REL 30 MG TABCR PO SCH (08:23)
[2018-11-18] MEDS: APIXABAN 5 MG TABLET PO SCH ×2 (08:23→21:42)
[2018-11-18] MEDS: INSULIN GLARGINE SOLOSTAR 100 UNITS/ML 3 ML PEN SC SCH ×2 (08:24→21:42)
[2018-11-18] MEDS: INSULIN ASPART 100 UNITS/ML 3 ML PEN SC SCH ×4 (08:26→21:43)
[2018-11-18] MEDS: BUMETANIDE 3 MG in SYRINGE 0 ML IV SCH ×2 (08:28→17:05)
--- NOTE | 2018-11-18 08:49 | Hospitalist Progress Note ---
Date of Service November 17, 2018 Assessment & Plan (1) Acute on chronic combined systolic and diastolic CHF (congestive heart failure): Echo shows EF of 25%. May need implantable defibrillator. Patient was admitted to the Intensive care unit. As patient has continously improved, transferred Patient respiratory status has improved with diuretics. Will continue to diurese, patient remains on Bumex. Will now be on 3mg BID. Patient is about 2 liters negative today. Patient is still tolerating nasal cannula. Patient on Imdur, beta estephania. Dig and lacho inhibitor are on hold for now. D/W orthopaedic surgeon. - CAD: On home Plavix. Has allergy to ASA. - Paroxysmal atrial flutter: Restarted betablocker. Rate controlled On home amiodarone. - CKD stage III: Admit Cr improved from 2.16 to 1.8 will continue to monitor. - Diabetes type 2: Last HbA1c in Jul 2018 was 6.4. Will monitor glucose here. - Hypothyroidism: On home synthroid. - GERD: Rarely symptomatic per patient. On home ranitidine. - Hypertension: held meds due to acute systolic heart failure - Hyperlipidemia: Has allergies to statins. - Severe MR, mild-moderate . Mitral regurgitation: Appreciate cardio input. Would recommend repeating echo when euvolemic, to re-evaluate mitral regurgitation. - Pulmonary hypertension: Appreciate input from cardio. Elevated RVSP may be secondary to her CHF exacerbation/left heart failure. Would recommend repeating echocardiogram once euvolemic, which could be done as an outpatient. If RVSP remains elevated and mitral regurgitation remains severe, could then consider addressing her mitral valve surgically. Spent 25 minutes in management. Present on Admission?: Yes Subjective Patient reports feeling improvement in regards to her breathing. Family is at bedside and are updated. Patient reports feeling better today. Patient reports no SOB at rest today. She did reports some SOB on exertion but it is better today. Respiratory: + cough, + chest congestion, + dyspnea on exertion and + wheezing Cardiovascular: + chest pain at rest, + dyspnea, + dyspnea at rest, + palpitations and + edema Endocrine: + fatigue Physical Exam 2 Vital Signs (Past 24 Hours): Last Vital Signs Temp 37 C 11/17/18 11:40 Pulse 88 11/17/18 11:40 Resp 20 11/17/18 11:40 BP 121/69 11/17/18 11:40 Pulse Ox 96 11/17/18 11:40 Physical Exam: GENERAL: Awake, alert, well-appearing, now on nasal cannula HEENT: Normocephalic, atraumatic. Oropharynx unremarkable. EYES: Normal conjunctiva. Sclera non-icteric. NECK: Inspection normal. Non-tender. Supple and full ROM. No nuchal rigidity. CARDIAC: +S1S2 RRR, 2/6 systolic murmurs. Left upper chest pacemaker in place. RESPIRATORY: decreased breath sounds decreased rales. GI: +BS, soft, non-distended. No tenderness to palpation. No rebound or guarding. No appreciable masses. EXTREMITIES: . Moving all extremities naturally and easily. NEURO: No gross neuro deficits.
--- NOTE | 2018-11-18 10:00 | Hospitalist Progress Note ---
Date of Service November 18, 2018 Assessment & Plan (1) Acute on chronic combined systolic and diastolic CHF (congestive heart failure): (1) Acute on chronic combined systolic and diastolic CHF (congestive heart failure): Echo shows EF of 25%. May need implantable defibrillator. Patient was admitted to the Intensive care unit. As patient has continously improved, transferred Patient respiratory status has improved with diuretics. Will continue to diurese, patient remains on Bumex. Will now be on 3mg BID. Patient is about 3 liters negative today. Patient is still tolerating nasal cannula. Patient on Imdur, beta estephania. Dig and lacho inhibitor are on hold for now. D/W parks and recreation worker. - CAD: On home Plavix. Has allergy to ASA. - Paroxysmal atrial flutter: Restarted betablocker. Rate controlled On home amiodarone. - CKD stage III: Admit Cr improved from 2.16 to 1.8. Stable for 2/3. will continue to monitor. - Diabetes type 2: Last HbA1c in Jul 2018 was 6.4. Will monitor glucose here. - Hypothyroidism: On home synthroid. - GERD: Rarely symptomatic per patient. On home ranitidine. - Hypertension: held meds due to acute systolic heart failure. now on imdur. and coreg - Hyperlipidemia: Has allergies to statins. - Severe MR, mild-moderate . Mitral regurgitation: Appreciate cardio input. Would recommend repeating echo when euvolemic, to re-evaluate mitral regurgitation. - Pulmonary hypertension: Appreciate input from cardio. Elevated RVSP may be secondary to her CHF exacerbation/left heart failure. Would recommend repeating echocardiogram once euvolemic, which could be done as an outpatient. If RVSP remains elevated and mitral regurgitation remains severe, could then consider addressing her mitral valve surgically. Spent 25 minutes in management. Subjective 78 yo female reports being off room air since overnight. Patient states she is no longer short of breath or having chest pain or abdominal pain. Patient reports her shortness of breath on exertion has also improved. She is able to ambulate 3 and a half laps from her bed to her bathroom without shortness of breath. By the end of the 4th lap, she developed SOB. Physical Exam 2 Vital Signs (Past 24 Hours): Last Vital Signs Temp 36.7 C 11/18/18 06:56 Pulse 63 11/18/18 06:56 Resp 19 11/18/18 06:56 BP 135/64 11/18/18 06:56 Pulse Ox 93 11/18/18 06:56 Physical Exam: GENERAL: Awake, alert, well-appearing, on room air. HEENT: Normocephalic, atraumatic. Oropharynx unremarkable. EYES: Normal conjunctiva. Sclera non-icteric. NECK: Inspection normal. Non-tender. Supple and full ROM. No nuchal rigidity. CARDIAC: +S1S2 RRR, 2/6 systolic murmurs. Left upper chest pacemaker in place. RESPIRATORY: clear breath sounds. GI: +BS, soft, non-distended. No tenderness to palpation. No rebound or guarding. No appreciable masses. EXTREMITIES: Mild pedal edema. Moving all extremities naturally and easily. NEURO: No gross neuro deficits.
--- NOTE | 2018-11-18 11:39 | Pharmacy Report ---
Pharmacy Glycemic Short Note 2 - Date of Service November 18, 2018 - Glycemic Short BSG Results (Last 24 hours): 11/17/18 11/17/18 11/17/18 11:22 15:21 15:41 POC Glucose 164 H 66 L* 86 11/17/18 11/17/18 11/18/18 20:07 23:18 07:36 POC Glucose 188 H 129 H 134 H OUTPATIENT ANTIDIABETIC REGIMEN: * Novolog 70-30 10-25 units BIDM * Outpatient regimen is premixed basal/prandial insulin * Pre-mixed insulin is difficult to titrate since it is already in a fixed distribution of basal:prandial insulin. Continuing pre-mixed insulin for admission typically lead to hypoglycemia d/t changing PO status but rapid acting insulin is unable to be held. * Home regimen will be held for admission per pharmacy consult. Will utilize recommended regimen of SQ basal bolus insulin regimen with Lantus + NovoLog (CF+ CR) ASSESSMENT: * Patient has been receiving ~25 units of insulin per day with near-adequate control * 14 units of basal insulin with Lantus * 10-11 units of prandial insulin with NovoLog * AM fasting BSG is in goal range at 134 mg/dl. No changes need to basal insulin * Pt with LOW BSG yesterday prior to dinner. Most likely secondary to too much CHO coverage. Will loosen CF/CR PLAN FOR INPATIENT GLYCEMIC CONTROL: * Hold outpatient pre-mixed insulin * Basal insulin * Lantus 7 units SQ BID * Bolus insulin: loosen parameters * NovoLog per scale ACHS or Q6hrs while NPO * Goal Range: Low 120 mg/dL - High 160 mg/dL * Correction Factor: 40 mg/dL/unit * Nutritional / Prandial insulin per carb ratio of 1 unit per 13 grams CHO consumed
[2018-11-18] MEDS: PANTOprazole 40 MG in SYRINGE 0 ML IV SCH (12:42)
[2018-11-18] MEDS: DOCUSATE SODIUM/SENNA 50/8.6MG TAB PO SCH (13:48)
--- NOTE | 2018-11-18 14:13 | Cardiology Progress Note ---
Date of Service November 18, 2018 Assessment & Plan (1) Acute on chronic combined systolic and diastolic CHF (congestive heart failure): She diuresed while yesterday with increased Bumex and a dose of Diuril. She admits that her diuresis has slowed down. Continue Bumex 3 mg IV twice daily. Given other dose of Diuril 250 mg IV today. She still appears euvolemic. Strict I&Os. Daily weights. Low-sodium diet. Would try to achieve at least 1 L negative fluid balance today. (2) Aortic stenosis, mild: Non severe. Continue to monitor. (3) Cardiomyopathy: LV systolic function was reported as significantly reduced. Continue carvedilol 3.125 mg twice daily which was restarted yesterday. Titrate over time. Consideration for biventricular ICD. She follows with EP. She has not tolerated Sudhir inhibitors or ARBs. (4) Coronary artery disease: She has prior PCI within her LAD. She continues to deny angina despite exertion. Continue anti-platelet therapy. Continue beta-estephania. She has not tolerated statin therapy. (5) Atrial flutter: History of paroxysmal atrial flutter. On amiodarone. Pacemaker in place for symptomatic sinus bradycardia in the past. On anticoagulation therapy for stroke risk reduction. (6) Mitral regurgitation: Mitral regurgitation reported as severe. This could be secondary to hypervolemia but also, severe mitral regurgitation could contribute to her CHF and reduced LV systolic function as well as elevated pulmonary pressures. Would recommend repeating echo when euvolemic, to re-evaluate mitral regurgitation, which can be done as an outpatient. (7) Pulmonary hypertension: Elevated RVSP may be secondary to her CHF exacerbation/left heart failure. Would recommend repeating echocardiogram once euvolemic, which could be done as an outpatient. If RVSP remains elevated and mitral regurgitation remains severe, could then consider addressing her mitral valve surgically. Disposition: Dr. Alvarez will resume her cardiology care tomorrow. Recommend heart failure transitional program upon discharge. Subjective Her breathing has improved. She has less shortness of breath but still remains orthoptic at night. She was able to ambulate around the nursing station in the hallway. She had to stop once due to dyspnea but admits that she has improved significantly. She denies chest pain, syncope, near-syncope, palpitations, or bleeding. She is constipated. Review of systems: As above. Physical Exam 2 Vital Signs (Past 24 Hours): Last Vital Signs Temp 36.9 C 11/18/18 11:55 Pulse 88 11/18/18 11:55 Resp 18 11/18/18 11:55 BP 118/60 11/18/18 11:55 Pulse Ox 96 11/18/18 11:55 Intake & Output 11/16/18 11/17/18 11/18/18 11/19/18 06:59 06:59 06:59 06:59 Intake Total 1261.134 / 1261.13 4 1005 / 1005 1159 / 1159 Output Total 1425 / 1425 1050 / 1050 3700 / 3700 Balance -163.866 / -163.86 6 -45 / -45 -2541 / -2541 Weight 99.9 kg 98.1 kg Physical Exam: Gen.: No acute distress. Alert and oriented. HEENT: Anicteric sclera. Neck: No appreciable JVD. Cardiac: Regular. Normal S1-S2. 3/6 holosystolic murmur. No rubs, or gallops. Pulmonary: Decreased breath sounds at the bases but otherwise clear to auscultation bilaterally without wheezes, rales, or rhonchi. Abdomen: Soft, nontender, nondistended, with normoactive bowel sounds. No bruits noted. Extremities: 1+ bilateral lower extremity edema. No cyanosis. Psychiatric: Affect appears appropriate. Results & Data Laboratory Results Laboratory Results - last 24 hr 11/17/18 11/17/18 11/17/18 15:21 15:41 20:07 POC Glucose 66 L* 86 188 H 11/17/18 11/18/18 23:18 07:36 POC Glucose 129 H 134 H Diagnostic Findings Telemetry personally reviewed: Atrial paced. Medications Administered Current Inpatient Medications Acetaminophen (Tylenol) 650 mg PO Q4H PRN PRN Reason: Pain or Fever Stop: 12/17/18 00:41 Amiodarone HCl (Cordarone) 200 mg PO QPM [facility] Stop: 12/14/18 20:59 Last Admin: 11/17/18 21:37 Dose: 200 mg Apixaban (Eliquis) 5 mg PO BID [facility] Stop: 12/14/18 08:59 Last Admin: 11/18/18 08:23 Dose: 5 mg Carvedilol (Coreg) 3.125 mg PO BID [facility] Stop: 12/17/18 09:29 Last Admin: 11/18/18 08:22 Dose: 3.125 mg Clopidogrel Bisulfate (Plavix) 75 mg PO QPM [facility] Stop: 12/14/18 20:59 Last Admin: 11/17/18 21:36 Dose: 75 mg Dextrose (Dextrose 50%) 25 - 50 ml IV UD PRN; Protocol PRN Reason: Hypoglycemia Protocol Stop: 12/17/18 15:28 Glucagon (Glucagen) 1 mg IM UD PRN; Protocol PRN Reason: Hypoglycemia Protocol Stop: 12/17/18 15:28 Glucose (Glucose 40%) 15 - 30 gm PO UD PRN; Protocol PRN Reason: Hypoglycemia Protocol Stop: 12/17/18 15:28 Glucose (Dex4 Glucose) 4 - 8 tabs PO UD PRN; Protocol PRN Reason: Hypoglycemia Protocol Stop: 12/17/18 15:28 Pantoprazole Sodium 40 mg/ (Syringe) 10 mls @ 5 mls/min IV DAILY@1100 [facility] Stop: 12/14/18 10:59 Last Admin: 11/18/18 12:42 Dose: 5 mls/min Prochlorperazine 10 mg/ (Syringe) 10 mls @ 5 mls/min IV Q6 PRN PRN Reason: Nausea And Vomiting Stop: 12/15/18 08:26 Last Admin: 11/16/18 02:45 Dose: 5 mls/min Acetaminophen (Ofirmev) 65 mls @ 200 mls/hr IV Q6H PRN PRN Reason: Pain Stop: 12/16/18 00:59 Bumetanide 3 mg/ Syringe 12 mls @ 4 mls/min IV BID@0900,1700 [facility] Stop: 12/17/18 09:29 Last Admin: 11/18/18 08:28 Dose: 4 mls/min Chlorothiazide Sodium 250 mg/ (Dextrose) 59 mls @ 200 mls/hr IV TODAY@1630 [facility] Stop: 11/18/18 16:47 Insulin Aspart (Novolog Flexpen) 0 units SC ACHS [facility] Stop: 12/14/18 11:59 Last Admin: 11/18/18 12:43 Dose: 5 units Insulin Glargine (Lantus Solostar Pen) 7 units SC BID [facility] Stop: 12/16/18 20:59 Last Admin: 11/18/18 08:24 Dose: 7 units Isosorbide Mononitrate (Imdur Extended Rel) 30 mg PO QAM [facility] Stop: 12/15/18 08:59 Last Admin: 11/18/18 08:23 Dose: 30 mg Levothyroxine Sodium (Synthroid) 75 mcg PO DAILYBB [facility] Stop: 12/15/18 06:29 Last Admin: 11/18/18 06:13 Dose: 75 mcg Miscellaneous (Carbohydrates For Hypoglycemia) 15 gm PO ONCE PRN PRN Reason: Hypoglycemia Treatment Stop: 12/17/18 15:23 Last Admin: 11/17/18 15:25 Dose: 15 gm Miscellaneous Information (Consult Glycemic Management Pharmacy) 1 ea N/A UD PRN PRN Reason: Consult Stop: 12/14/18 09:35 Ondansetron HCl (Zofran) 4 mg IV Q8H PRN PRN Reason: Nausea Stop: 12/14/18 21:22 Potassium Chloride (Klor-Con M20) 40 meq PO [facility] Stop: 12/17/18 08:59 Last Admin: 11/18/18 08:22 Dose: 40 meq Senna/Docusate Sodium (Senokot S) [facility] [place] Stop: 12/18/18 12:59 Last Admin: 11/18/18 13:48 Dose: 1 tab _ (1) Atrial flutter Atrial flutter type: unspecified Qualified Code(s): I48.92 - Unspecified atrial flutter
[2018-11-18 14:58] LABS: Calcium 8.9 mg/dl (8.5-10.1); Creatinine Clr Calc Pharmacy 28.4 ml/min; Est GFR (African American) 29.3; Est GFR (Non-African American) 25.3; Potassium 3.5 mmol/L (3.5-5.1)
[2018-11-18] MEDS ORDERED: CHLOROTHIAZIDE SODIUM 250 MG in DEXTROSE 5% 50 ML IV ONE (16:30)
[2018-11-18] MEDS: CLOPIDOGREL BISULFATE 75 MG TAB PO SCH (21:42)
[2018-11-18] MEDS: AMIODARONE 200 MG TAB PO SCH (21:42)
[2018-11-19] MEDS: LEVOTHYROXINE SODIUM 75 MCG TABLET PO SCH (06:26)
[2018-11-19 06:35] LABS: BUN Creatinine Ratio 18.1 (10-20); Calcium 8.8 mg/dl (8.5-10.1); Creatinine Clr Calc Pharmacy 28.7 ml/min; Est GFR (African American) 29.7; Est GFR (Non-African American) 25.6; Potassium 3.2 mmol/L (3.5-5.1)
[2018-11-19] MEDS: DOCUSATE SODIUM/SENNA 50/8.6MG TAB PO SCH (07:52)
[2018-11-19] MEDS: APIXABAN 5 MG TABLET PO SCH ×2 (07:53→21:00)
[2018-11-19] MEDS: POTASSIUM CHLORIDE 20 MEQ TABCR PO SCH ×2 (07:53→21:01)
[2018-11-19] MEDS: ISOSORBIDE MONO EXTENDED REL 30 MG TABCR PO SCH (07:58)
[2018-11-19] MEDS: CARVEDILOL 3.125 MG TAB PO SCH ×2 (07:59→21:00)
[2018-11-19] MEDS: BUMETANIDE 3 MG in SYRINGE 0 ML IV SCH ×2 (08:04→17:19)
[2018-11-19] MEDS: INSULIN GLARGINE SOLOSTAR 100 UNITS/ML 3 ML PEN SC SCH ×2 (08:07→20:58)
[2018-11-19] MEDS: INSULIN ASPART 100 UNITS/ML 3 ML PEN SC SCH ×4 (08:08→20:55)
[2018-11-19] MEDS: PANTOprazole 40 MG in SYRINGE 0 ML IV SCH (11:34)
--- NOTE | 2018-11-19 12:35 | Hospitalist Progress Note ---
Date of Service November 19, 2018 Assessment & Plan (1) Acute respiratory failure with hypoxia: due to acute heart failure resolved at this time, breathing well on room air (2) Acute on chronic combined systolic and diastolic CHF (congestive heart failure): diuresing very well on Bumex 3mg IV BID receiving Diuril over the weekend but not needed today maintaining a negative fluid balance, Cr holding at 1.8 will reassess tomorrow, likely ready for discharge tomorrow will have close follow up with the heart failure clinic, talked with PA today (3) Pulmonary edema: resolving quickly with aggressive diuresis (4) Pleural effusion: using Bumex for diuresis (5) Anemia: stable (6) GERD (gastroesophageal reflux disease): no current symptoms (7) Hypothyroidism: continue Synthroid (8) CKD (chronic kidney disease), stage III: cr stable at 1.8 on Bumex repeat tomorrow (9) DM II (diabetes mellitus, type II), controlled: diabetic diet, monitor for hypoglycemia, no episodes (10) Hypokalemia: K is 3.2, will increase oral supplementation Subjective patient feeling a lot better, breathing easier, not requiring oxygen still with some edema in legs and she is responding well to Bumex, urinating a lot today reviewed labs, Cr is stable at 1.8 and K is 3.4 appreciate notes from cardiology, reviewed labs since the time of admission discussed with patient that we want her to be euvolemic prior to discharge, she agrees negative 1.5 L fluid balance today, Bumex still working well Review of Systems All systems reviewed & are unremarkable except as noted in HPI & below Respiratory: + dyspnea on exertion Cardiovascular: + edema; no chest pain Gastrointestinal: + constipation Physical Exam 2 Vital Signs (Past 24 Hours): Last Vital Signs Temp 36.6 C 11/19/18 11:48 Pulse 71 11/19/18 11:48 Resp 19 11/19/18 11:48 BP 132/64 11/19/18 11:48 Pulse Ox 91 11/19/18 11:48 Constitutional: WD/WN, vitals as above Eyes: PERRL, conjunctivae normal, anicteric sclerae ENMT: external ear and nose normal, oropharynx normal Neck: trachea midline, no thyromegaly Respiratory: normal respiratory effort, lungs clear to auscultation Cardiovascular: Rate/Rhythm: regular rate and regular rhythm Heart Sounds: normal S1 and normal S2; no murmur Extremities: + edema (1+, some pitting) Gastrointestinal (Abdomen): normal bowel sounds, soft, nontender, no hepatosplenomegaly Musculoskeletal: no cyanosis or clubbing, extremities motor strength 5/5 Skin: no rashes, warm and dry Neurologic: patellar DTR's 2+ bilat, sensation intact and PERRL, EOMI, accommodation nl, no face palsy, no dysarthria Psychiatric: A+Ox3, euthymic affect Lymphatic: no cervical or axillary lymphadenopathy Results & Data Laboratory Results Laboratory Results - last 24 hr 11/18/18 11/18/18 11/18/18 11:25 14:30 16:25 Sodium 134 L Potassium 3.5 Chloride 97 L Carbon Dioxide 34 H Anion Gap 3.0 BUN 32 H Creatinine 1.86 H Est Cr Clr Drug Dosing 28.4 Est GFR ( Amer) 29.3 Est GFR (Non-Af Amer) 25.3 BUN/Creatinine Ratio 17.0 Glucose 215 H POC Glucose 205 H 198 H Calcium 8.9 11/18/18 11/19/18 11/19/18 20:20 05:29 07:33 Sodium 138 Potassium 3.2 L Chloride 98 Carbon Dioxide 37 H Anion Gap 3.0 BUN 33 H Creatinine 1.84 H Est Cr Clr Drug Dosing 28.7 Est GFR ( Amer) 29.7 Est GFR (Non-Af Amer) 25.6 BUN/Creatinine Ratio 18.1 Glucose 95 POC Glucose 153 H 128 H Calcium 8.8 11/19/18 11:08 Sodium Potassium Chloride Carbon Dioxide Anion Gap BUN Creatinine Est Cr Clr Drug Dosing Est GFR ( Amer) Est GFR (Non-Af Amer) BUN/Creatinine Ratio Glucose POC Glucose 120 H Calcium Medications Administered Current Inpatient Medications Acetaminophen (Tylenol) 650 mg PO Q4H PRN PRN Reason: Pain or Fever Stop: 12/17/18 00:41 Amiodarone HCl (Cordarone) 200 mg PO QPM [facility] Stop: 12/14/18 20:59 Last Admin: 11/18/18 21:42 Dose: 200 mg Apixaban (Eliquis) 5 mg PO BID [facility] Stop: 12/14/18 08:59 Last Admin: 11/19/18 07:53 Dose: 5 mg Carvedilol (Coreg) 3.125 mg PO BID [facility] Stop: 12/17/18 09:29 Last Admin: 11/19/18 07:59 Dose: 3.125 mg Clopidogrel Bisulfate (Plavix) 75 mg PO QPM [facility] Stop: 12/14/18 20:59 Last Admin: 11/18/18 21:42 Dose: 75 mg Dextrose (Dextrose 50%) 25 - 50 ml IV UD PRN; Protocol PRN Reason: Hypoglycemia Protocol Stop: 12/17/18 15:28 Glucagon (Glucagen) 1 mg IM UD PRN; Protocol PRN Reason: Hypoglycemia Protocol Stop: 12/17/18 15:28 Glucose (Glucose 40%) 15 - 30 gm PO UD PRN; Protocol PRN Reason: Hypoglycemia Protocol Stop: 12/17/18 15:28 Glucose (Dex4 Glucose) 4 - 8 tabs PO UD PRN; Protocol PRN Reason: Hypoglycemia Protocol Stop: 12/17/18 15:28 Pantoprazole Sodium 40 mg/ (Syringe) 10 mls @ 5 mls/min IV DAILY@1100 [facility] Stop: 12/14/18 10:59 Last Admin: 11/19/18 11:34 Dose: 5 mls/min Prochlorperazine 10 mg/ (Syringe) 10 mls @ 5 mls/min IV Q6 PRN PRN Reason: Nausea And Vomiting Stop: 12/15/18 08:26 Last Admin: 11/16/18 02:45 Dose: 5 mls/min Acetaminophen (Ofirmev) 65 mls @ 200 mls/hr IV Q6H PRN PRN Reason: Pain Stop: 12/16/18 00:59 Bumetanide 3 mg/ Syringe 12 mls @ 4 mls/min IV BID@0900,1700 [facility] Stop: 12/17/18 09:29 Last Admin: 11/19/18 08:04 Dose: 4 mls/min Insulin Aspart (Novolog Flexpen) 0 units SC ACHS [facility] Stop: 12/14/18 11:59 Last Admin: 11/19/18 12:08 Dose: 3 units Insulin Glargine (Lantus Solostar Pen) 6 units SC BID [facility] Stop: 12/19/18 08:59 Last Admin: 11/19/18 08:07 Dose: 6 units Isosorbide Mononitrate (Imdur Extended Rel) 30 mg PO QAM [facility] Stop: 12/15/18 08:59 Last Admin: 11/19/18 07:58 Dose: 30 mg Levothyroxine Sodium (Synthroid) 75 mcg PO DAILYBB [facility] Stop: 12/15/18 06:29 Last Admin: 11/19/18 06:26 Dose: 75 mcg Miscellaneous (Carbohydrates For Hypoglycemia) 15 gm PO ONCE PRN PRN Reason: Hypoglycemia Treatment Stop: 12/17/18 15:23 Last Admin: 11/17/18 15:25 Dose: 15 gm Miscellaneous Information (Consult Glycemic Management Pharmacy) 1 ea N/A UD PRN PRN Reason: Consult Stop: 12/14/18 09:35 Ondansetron HCl (Zofran) 4 mg IV Q8H PRN PRN Reason: Nausea Stop: 12/14/18 21:22 Potassium Chloride (Klor-Con M20) 40 meq PO BID [facility] Stop: 12/19/18 20:59 Senna/Docusate Sodium (Senokot S) 1 tab PO QAM [facility] Stop: 12/18/18 12:59 Last Admin: 11/19/18 07:52 Dose: 1 tab _ (1) Pulmonary edema Chronicity: acute Qualified Code(s): J81.0 - Acute pulmonary edema (2) Hypothyroidism Hypothyroidism type: acquired Qualified Code(s): E03.9 - Hypothyroidism, unspecified (3) DM II (diabetes mellitus, type II), controlled Diabetes mellitus buttermaker continuous churn insulin use: with usp use Diabetes mellitus complication status: with kidney complications Diabetes mellitus complication detail: with nephropathy Diabetic retinopathy severity: Proliferative retinopathy type: Diabetes mellitus macular edema: Laterality : Chronic kidney disease stage: Qualified Code(s): E11.21 - Type 2 diabetes mellitus with diabetic nephropathy; Z79.4 - terminal gauger (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
--- NOTE | 2018-11-19 16:43 | Cardiology Progress Note ---
Date of Service November 19, 2018 Assessment & Plan (1) Acute on chronic combined systolic and diastolic CHF (congestive heart failure): She has been diuresing well and has lost somewhere around 7 kilograms since admission. I believe she is approaching a you hydrated state but would continue to diurese at the moment watching for increasing creatinine. (2) Cardiomyopathy: Her left ventricular function this admission has declined, the cause is not clear. It may be due to her presentation with heart failure in which case it may reversed fairly quickly, if it is related to her left bundle branch block or ongoing cardiomyopathy we may need to consider biventricular ICD implantation. I would try to titrate her heart failure medications over time. Currently she is only on low-dose carvedilol but is not been able to tolerate HERMELINDO inhibition with her renal insufficiency. (3) CKD (chronic kidney disease), stage III: She has chronic kidney disease with a creatinine close to 2, her creatinine has not worsened with diuresis and I would continue diuresis until it trends upward slightly or at least plateaus. Physical Exam 2 Vital Signs (Past 24 Hours): Last Vital Signs Temp 36.6 C 11/19/18 15:18 Pulse 77 11/19/18 15:18 Resp 19 11/19/18 15:18 BP 135/65 11/19/18 15:18 Pulse Ox 90 11/19/18 15:18
[2018-11-19] MEDS: AMIODARONE 200 MG TAB PO SCH (20:59)
[2018-11-19] MEDS: CLOPIDOGREL BISULFATE 75 MG TAB PO SCH (21:01)
[2018-11-20] MEDS: LEVOTHYROXINE SODIUM 75 MCG TABLET PO SCH (05:23)
[2018-11-20 07:12] LABS: BUN Creatinine Ratio 16.8 (10-20); Calcium 8.6 mg/dl (8.5-10.1); Creatinine Clr Calc Pharmacy 26.8 ml/min; Est GFR (African American) 27.7; Est GFR (Non-African American) 23.9; Potassium 3.5 mmol/L (3.5-5.1)
[2018-11-20] MEDS: CARVEDILOL 3.125 MG TAB PO SCH ×2 (07:57→20:30)
[2018-11-20] MEDS: POTASSIUM CHLORIDE 20 MEQ TABCR PO SCH ×2 (07:57→20:31)
[2018-11-20] MEDS: DOCUSATE SODIUM/SENNA 50/8.6MG TAB PO SCH (07:57)
[2018-11-20] MEDS: ISOSORBIDE MONO EXTENDED REL 30 MG TABCR PO SCH (07:57)
[2018-11-20] MEDS: APIXABAN 5 MG TABLET PO SCH ×2 (07:57→20:30)
[2018-11-20] MEDS: BUMETANIDE 3 MG in SYRINGE 0 ML IV SCH (07:58)
[2018-11-20] MEDS: INSULIN ASPART 100 UNITS/ML 3 ML PEN SC SCH ×4 (07:59→20:32)
[2018-11-20] MEDS: INSULIN GLARGINE SOLOSTAR 100 UNITS/ML 3 ML PEN SC SCH ×2 (08:48→20:32)
--- NOTE | 2018-11-20 09:04 | Cardiology Progress Note ---
Date of Service November 20, 2018 Assessment & Plan (1) Acute on chronic combined systolic and diastolic CHF (congestive heart failure): She has been diuresing well and has lost somewhere around 7 kilograms since admission. Her creatinine has bumped up slightly today and I suspect she is euhydrated, I would not continue diuresis further. Although she is complaining of an increase in her shortness of breath her I's and O's have been negative as has her weight since yesterday. (2) Cardiomyopathy: Her left ventricular function this admission had declined, the cause is not clear. It may be due to her presentation with heart failure in which case it may reverse fairly quickly, if it is related to her left bundle branch block or ongoing cardiomyopathy we may need to consider biventricular ICD implantation. I would try to titrate her heart failure medications over time. Currently she is only on low-dose carvedilol but is not been able to tolerate HERMELINDO inhibition with her renal insufficiency. I would like to repeat her echocardiogram is a limited study to see whether her left ventricular function has improved now that her heart failure is under control. (3) CKD (chronic kidney disease), stage III: Her creatinine has been increasing with diuresis until this morning when it bumped up slightly, I suspect this indicates that she has no more fluid to lose. Subjective She tells me that she was feeling better yesterday in terms of walking, now today walking to the bathroom she felt a little more short of breath. Not have orthopnea or PND. Physical Exam Vital Signs (Past 24 Hours): Last Vital Signs Temp 36.9 C 11/20/18 07:29 Pulse 63 11/20/18 07:29 Resp 19 11/20/18 07:29 BP 133/62 11/20/18 07:29 Pulse Ox 92 11/20/18 07:29 Physical Exam: Constitutional: Alert, cooperative and in no distress. Pulmonary: Clear to auscultation bilaterally. Cardiac: Regular rhythm with grade 3/6 crescendo decrescendo murmur at the base, no gallop or rub. Abdomen: Soft, nontender with normal bowel sounds. Extremities: No edema. Skin: No rash, ecchymoses or petechiae. Results & Data Diagnostic Findings Telemetry:
--- NOTE | 2018-11-20 09:56 | Hospitalist Progress Note ---
Date of Service November 20, 2018 Assessment & Plan (1) Acute respiratory failure with hypoxia: (1) Acute respiratory failure with hypoxia: due to acute heart failure resolved at this time, breathing well on room air for a few days (2) Acute on chronic combined systolic and diastolic CHF (congestive heart failure): diuresed very well on Bumex 3mg IV BID, down 7kg received Diuril over the weekend but not needed any further maintaining a negative fluid balance, Cr up slightly at 1.9 will reassess tomorrow, likely ready for discharge tomorrow will have close follow up with the heart failure clinic, talked with PA today repeat limited echo today to assess LV function to see if it was a transient decline in function (3) Pulmonary edema: resolved quickly with aggressive diuresis (4) Pleural effusion: using Bumex for diuresis (5) Anemia: stable (6) GERD (gastroesophageal reflux disease): no current symptoms (7) Hypothyroidism: continue Synthroid 8) CKD (chronic kidney disease), stage III: cr stable at 1.8 on Bumex repeat tomorrow (9) DM II (diabetes mellitus, type II), controlled: diabetic diet, monitor for hypoglycemia, no episodes (10) Hypokalemia: K is 3.6, will continue oral supplementation transfer to medical floor today, likely home tomorrow AM, check labs in the AM Subjective patient feeling well, breathing improved, walking around the RN station Cr up slightly to 1.9 today, hold on further IV Bumex eating well no other complaints discussed going home tomorrow, she agrees discussed with Dr. Alvarez, he is going to check a limited echo to reassess her LV function Review of Systems All systems reviewed & are unremarkable except as noted in HPI & below Physical Exam 2 Vital Signs (Past 24 Hours): Last Vital Signs Temp 36.9 C 11/20/18 07:29 Pulse 112 H 11/20/18 08:00 Resp 19 11/20/18 07:29 BP 133/62 11/20/18 07:29 Pulse Ox 92 11/20/18 07:29 Constitutional: WD/WN, vitals as above Eyes: PERRL, conjunctivae normal, anicteric sclerae ENMT: external ear and nose normal, oropharynx normal Neck: trachea midline, no thyromegaly Respiratory: normal respiratory effort, lungs clear to auscultation Cardiovascular: Rate/Rhythm: regular rate and regular rhythm Heart Sounds: normal S1 and normal S2; no murmur Extremities: no edema Gastrointestinal (Abdomen): normal bowel sounds, soft, nontender, no hepatosplenomegaly Musculoskeletal: no cyanosis or clubbing, extremities motor strength 5/5 Skin: no rashes, warm and dry Neurologic: patellar DTR's 2+ bilat, sensation intact and PERRL, EOMI, accommodation nl, no face palsy, no dysarthria Psychiatric: A+Ox3, euthymic affect Lymphatic: no cervical or axillary lymphadenopathy Results & Data Laboratory Results Laboratory Results - last 24 hr 11/19/18 11/19/18 11/19/18 11:08 16:16 20:07 Sodium Potassium Chloride Carbon Dioxide Anion Gap BUN Creatinine Est Cr Clr Drug Dosing Est GFR ( Amer) Est GFR (Non-Af Amer) BUN/Creatinine Ratio Glucose POC Glucose 120 H 114 H 220 H Calcium 11/20/18 11/20/18 05:51 07:17 Sodium 140 Potassium 3.5 Chloride 99 Carbon Dioxide 33 H Anion Gap 8.0 BUN 33 H Creatinine 1.95 H Est Cr Clr Drug Dosing 26.8 Est GFR ( Amer) 27.7 Est GFR (Non-Af Amer) 23.9 BUN/Creatinine Ratio 16.8 Glucose 87 POC Glucose 95 Calcium 8.6 Medications Administered Current Inpatient Medications Acetaminophen (Tylenol) 650 mg PO Q4H PRN PRN Reason: Pain or Fever Stop: 12/17/18 00:41 Amiodarone HCl (Cordarone) 200 mg PO QPM [facility] Stop: 12/14/18 20:59 Last Admin: 11/19/18 20:59 Dose: 200 mg Apixaban (Eliquis) 5 mg PO BID [facility] Stop: 12/14/18 08:59 Last Admin: 11/20/18 07:57 Dose: 5 mg Carvedilol (Coreg) 3.125 mg PO BID [facility] Stop: 12/17/18 09:29 Last Admin: 11/20/18 07:57 Dose: 3.125 mg Clopidogrel Bisulfate (Plavix) 75 mg PO QPM [facility] Stop: 12/14/18 20:59 Last Admin: 11/19/18 21:01 Dose: 75 mg Dextrose (Dextrose 50%) 25 - 50 ml IV UD PRN; Protocol PRN Reason: Hypoglycemia Protocol Stop: 12/17/18 15:28 Glucagon (Glucagen) 1 mg IM UD PRN; Protocol PRN Reason: Hypoglycemia Protocol Stop: 12/17/18 15:28 Glucose (Glucose 40%) 15 - 30 gm PO UD PRN; Protocol PRN Reason: Hypoglycemia Protocol Stop: 12/17/18 15:28 Glucose (Dex4 Glucose) 4 - 8 tabs PO UD PRN; Protocol PRN Reason: Hypoglycemia Protocol Stop: 12/17/18 15:28 Pantoprazole Sodium 40 mg/ (Syringe) 10 mls @ 5 mls/min IV DAILY@1100 [facility] Stop: 12/14/18 10:59 Last Admin: 11/19/18 11:34 Dose: 5 mls/min Prochlorperazine 10 mg/ (Syringe) 10 mls @ 5 mls/min IV Q6 PRN PRN Reason: Nausea And Vomiting Stop: 12/15/18 08:26 Last Admin: 11/16/18 02:45 Dose: 5 mls/min Acetaminophen (Ofirmev) 65 mls @ 200 mls/hr IV Q6H PRN PRN Reason: Pain Stop: 12/16/18 00:59 Bumetanide 3 mg/ Syringe 12 mls @ 4 mls/min IV BID@0900,1700 [facility] Stop: 12/17/18 09:29 Last Admin: 11/20/18 07:58 Dose: 4 mls/min Insulin Aspart (Novolog Flexpen) 0 units SC ACHS [facility] Stop: 12/14/18 11:59 Last Admin: 11/20/18 07:59 Dose: 4 units Insulin Glargine (Lantus Solostar Pen) 6 units SC BID [facility] Stop: 12/19/18 08:59 Last Admin: 11/20/18 08:48 Dose: 6 units Isosorbide Mononitrate (Imdur Extended Rel) 30 mg PO QAM [facility] Stop: 12/15/18 08:59 Last Admin: 11/20/18 07:57 Dose: 30 mg Levothyroxine Sodium (Synthroid) 75 mcg PO DAILYBB [facility] Stop: 12/15/18 06:29 Last Admin: 11/20/18 05:23 Dose: 75 mcg Miscellaneous (Carbohydrates For Hypoglycemia) 15 gm PO ONCE PRN PRN Reason: Hypoglycemia Treatment Stop: 12/17/18 15:23 Last Admin: 11/17/18 15:25 Dose: 15 gm Miscellaneous Information (Consult Glycemic Management Pharmacy) 1 ea N/A UD PRN PRN Reason: Consult Stop: 12/14/18 09:35 Ondansetron HCl (Zofran) 4 mg IV Q8H PRN PRN Reason: Nausea Stop: 12/14/18 21:22 Potassium Chloride (Klor-Con M20) 40 meq PO BID [facility] Stop: 12/19/18 20:59 Last Admin: 11/20/18 07:57 Dose: 40 meq Senna/Docusate Sodium (Senokot S) 1 tab PO QAM [facility] Stop: 12/18/18 12:59 Last Admin: 11/20/18 07:57 Dose: 1 tab
[2018-11-20] MEDS: PANTOprazole 40 MG in SYRINGE 0 ML IV SCH (12:06)
--- NOTE | 2018-11-20 13:43 | Pharmacy Report ---
Glycemic Control Progress Note - Date of Service November 20, 2018 - Scope Glycemic Pharmacist consulted for glycemic control to write orders per [facility] inpatient glycemic control protocol. - Objective Accuchecks BSG(last 24 hours):: 11/19/18 11/19/18 11/20/18 16:16 20:07 05:51 Glucose 87 POC Glucose 114 H 220 H 11/20/18 11/20/18 07:17 11:45 Glucose POC Glucose 95 150 H HbA1c:: Hemoglobin A1c 6.2 % (4.5-5.6) H 11/16/18 04:07 - Recent Pertinent Medications The patient is currently receiving: * Basal insulin: Lantus 6 units every 12 hours * Correctional Insulin: Novolog Correction per scale ACHS Goal Range: Low 120 mg/dL - High 150 mg/dL Correction Factor: 40 mg/dL/unit * Prandial insulin: Per carb ratio of 1 unit per 12 grams CHO consumed * Oral Agents: - Outpatient Anti-Diabetic Meds Novolog 70/30 10-25 units BIDM - Assessment & Plan ASSESSMENT: * See progress note from 11/17/18 for more background info, in short: * Pt receiving SQ basal bolus insulin regimen for hyperglycemia secondary to baseline DM (outpatient regimen on hold). * Patient is currently receiving an average of 30 units of insulin per day * 12 units of basal insulin * 28 units of prandial/correctional insulin * BSGs ranging 114 - 220 mg/dl over the past 24hrs (only ONE blood sugar out of range yesterday- all except one below 130 mg/dL) * Changes needed to insulin regimen: * AM Fasting BSG = 95 mg/dl. This is slightly below goal range for patient based on inpatient targets and co-morbidities. This may be secondary to over- correction at night. Continue currently basal regimen as patient's blood sugar trendin up. * Post-prandial BSGs are in range therefore no changes needed to CF/CR. * Total daily dose = ~30 units. * Additional notes / comments: PLAN FOR INPATIENT GLYCEMIC CONTROL: * Continuing Lantus 6 units SQ BID * Continuing correction factor 40 mg/dl/unit * Continuing carb ratio of 1 unit per 12 grams CHO consumed * Continuing goal range to Low 120 mg/dL - High 150 mg/dL RECOMMENDATIONS FOR DISCHARGE: * Patient's HbA1C well controlled can continue home regimen as long as she does not have hypoglycemia. * Please note that the plan above was derived based on current level of insulin resistance and hospital stress. These recommendations are appropriate for inpatient admission only. Plan of care upon discharge will need to be reassessed to avoid potential outpatient hypo/hyperglycemia. Thank you.
[2018-11-20] MEDS: AMIODARONE 200 MG TAB PO SCH (20:31)
[2018-11-20] MEDS: CLOPIDOGREL BISULFATE 75 MG TAB PO SCH (21:23)
[2018-11-21] MEDS: LEVOTHYROXINE SODIUM 75 MCG TABLET PO SCH (06:05)
[2018-11-21 08:14] LABS: BUN Creatinine Ratio 18.2 (10-20); Creatinine Clr Calc Pharmacy 28.8 ml/min; Est GFR (African American) 30.1; Potassium 3.7 mmol/L (3.5-5.1)
[2018-11-21] MEDS: APIXABAN 5 MG TABLET PO SCH (08:41)
[2018-11-21] MEDS: ISOSORBIDE MONO EXTENDED REL 30 MG TABCR PO SCH (08:41)
[2018-11-21] MEDS: CARVEDILOL 3.125 MG TAB PO SCH (08:41)
[2018-11-21] MEDS: POTASSIUM CHLORIDE 20 MEQ TABCR PO SCH (08:42)
[2018-11-21] MEDS: DOCUSATE SODIUM/SENNA 50/8.6MG TAB PO SCH (08:43)
[2018-11-21] MEDS: INSULIN GLARGINE SOLOSTAR 100 UNITS/ML 3 ML PEN SC SCH (08:44)
[2018-11-21] MEDS: INSULIN ASPART 100 UNITS/ML 3 ML PEN SC SCH (08:45)
[2018-11-21] MEDS ORDERED: BUMETANIDE 1 MG TAB PO SCH (09:00)
--- NOTE | 2018-11-21 14:38 | Discharge Summary ---
Date of Service November 21, 2018 Admission HPI Per Admitting Provider 7Ms. Jhonny is a 78-year-old female with a past medical history significant for coronary artery disease s/p NATY to mid LAD 10/2017 and NATY prox to mid LAD 10/17, ischemic cardiomyopathy (EF 45-50%), chronic combined CHF, paroxysmal atrial flutter, mild aortic stenosis, mild to moderate mitral regurgitation, diabetes mellitus, CKD, hypothyroidism, carotid artery stenosis s/p bilateral carotid endarterectomies, peripheral arterial disease (mild-moderate disease in right SFA and 100% right anterior tibial stenosis in 05/2017), and symptomatic sinus bradycardia s/p dual-chamber pacemaker implantation 05/14/2018. On her previous admission, she presented to [facility] on 10/14/2018 with intermittent chest discomfort radiating to her left arm and jaw for several days. The discomfort was increasing in frequency and duration. Her initial troponins were negative. She was admitted for further evaluation, and had recurrent discomfort during her hospitalization requiring nitro infusion. Troponins bumped with a peak of 4.78. Cardiac catheterization on 10/17/2018 showed the following results: 1. Left main: Distal 40%. 2. Left anterior descending: Subtotal occlusion in its proximal portion just before the previously stented area. The stent appeared widely patent. Single diagonal branch distal to the stent with proximal 40% ostial stenosis. 3. Left circumflex: Proximal 40% stenosis at maximum. 4. Ramus intermedius: 70% stenosis at its ostium 5. Right coronary artery: 50% ostial stenosis. She underwent successful PCI of proximal to mid LAD with single drug-eluting stent which overlapped the proximal aspect of prior mid LAD stent (3.0 x 22 mm resolute). She was placed on Plavix in addition to Eliquis (she has ASA allergy) . Eliquis dose was reduced during admission given CKD. She developed atrial flutter with 2-1 AV conduction during admission requiring infusion of IV diltiazem and digoxin. The medications were converted to PO upon discharge and amlodipine as well as labetalol were stopped. Patient was also found to have acute pulmonary edema with significant pleural effusion and underwent bilateral thoracentesis during admission. She was deemed stable for discharge 10/23/2018. She was seen for hospital follow-up on 10/31/2018. At that time, she reported aching chest discomfort in association with palpitations since hospital discharge. She self-discontinued her Diltiazem, and her symptoms resolved. She was subsequently initiated on carvedilol 3.125 mg BID. Her Eliquis dose was increased back up to 5 mg BID given the fact that she is <80 years old and her weight is >60 kg. A digoxin level was also checked, which was elevated at 1.4, therefore, her dose was decreased to M/W/F dosing. Patient then presented on 11/12 to the [facility], where she complained of chest pain, shortness of breath, and palpitations. She states that she has noted a constant left sided chest discomfort and left forearm pain. Yesterday, the discomfort worsened, especially when she was up ambulating. She also began noting shortness of breath, which was present at rest and worsened with exertion. She always sleeps with the head of her bed elevated at night, but she noted that she would become short of breath throughout the night Patient also reports palpitations where she can feel her heart beating fast at times and then a pause. Her heart rate was elevated in the 110s when checking at home yesterday and BP was elevated in the 150s/100s. She reports that she has restarted her labetalol despite being on coreg. She reports some mild orthostatic lightheadedness, but she denies syncope or presyncope. He denies abnormal bleeding such as melena, hematochezia, or hematuria. She denies fevers. The Caridologist stated to continue her meds and started verapmil in hopes of controlling her symptoms and heart rate. She was to see DR. Irizarry this Monday but was advised to come to the hospital if her sympotms worsened, which they did. She states now that her SOB is at rest even when sitting up. Admission Exam Per Admitting Provider GENERAL: Awake, alert, well-appearing, in moderate distress on continuous BiPAP. HENT: Normocephalic, atraumatic. Oropharynx unremarkable. EYES: Normal conjunctiva. Sclera non-icteric. NECK: Inspection normal. Non-tender. Supple and full ROM. No nuchal rigidity. CARDIAC: +S1S2 RRR, 2/6 systolic murmurs. Left upper chest pacemaker in place. RESPIRATORY: decreased breath sounds with rales up to 2/3 of right lung and rales in lower third of left lung. GI: +BS, soft, non-distended. No tenderness to palpation. No rebound or guarding. No appreciable masses. EXTREMITIES: No pedal edema or calf tenderness. Moving all extremities naturally and easily. NEURO: No gross neuro deficits. Principal Diagnosis Acute on chronic systolic heart failure Discharge Exam Constitutional WD/WN, vitals as above Eyes PERRL, conjunctivae normal, anicteric sclerae ENMT external ear and nose normal, oropharynx normal Neck trachea midline, no thyromegaly Respiratory normal respiratory effort, lungs clear to auscultation Cardiovascular Rate/Rhythm: regular rate and regular rhythm Heart Sounds: normal S1 and normal S2; no murmur Extremities: no edema Gastrointestinal (Abdomen) normal bowel sounds, soft, nontender, no hepatosplenomegaly Musculoskeletal no cyanosis or clubbing, extremities motor strength 5/5 Skin no rashes, warm and dry Neurologic patellar DTR's 2+ bilat, sensation intact and PERRL, EOMI, accommodation nl, no face palsy, no dysarthria Psychiatric A+Ox3, euthymic affect Lymphatic no cervical or axillary lymphadenopathy Discharge Data Allergies Allergy/AdvReac Type Severity Reaction Status Date / Time adhesive Allergy Unknown REDNESS Verified 11/14/18 08:09 AND IRRITATION FROM PAIN PATCH, TAPE dulaglutide [From Trulicity] Allergy Unknown Unknown Verified 11/14/18 08:09 glipizide Allergy Unknown Unknown Verified 11/14/18 08:09 latex Allergy Unknown ALLERGIC Verified 11/14/18 08:09 TO LATEX TAPE/RASH/ITCHING morphine Allergy Unknown swelling Verified 11/14/18 08:09 nausea vomiting olmesartan Allergy Unknown UNKNOWN Verified 11/14/18 08:09 exenatide [From Byetta] Allergy Unknown Verified 11/14/18 08:09 glyburide Allergy Unknown Verified 11/14/18 08:09 metformin Allergy Unknown Verified 11/14/18 08:09 sitagliptin [From Januvia] Allergy Unknown Verified 11/14/18 08:09 aspirin AdvReac Mild GI SYMPTOMS Verified 11/14/18 08:09 ezetimibe AdvReac Mild MUSCLE Verified 11/14/18 08:09 ACHES lisinopril AdvReac Unknown LIGHTHEADED Verified 11/14/18 08:09 AND DIZZY pioglitazone AdvReac Unknown DIARRHEA Verified 11/14/18 08:09 NAUSEA Liaolgf-Xar-Enq Reductase AdvReac Unknown myalgias Verified 11/14/18 08:09 Inhibitor and weakness statins Allergy Unknown Unknown Uncoded 11/14/18 08:09 Consultations 11/14/18 07:22 ED Decision to Admit Stat 11/14/18 08:43 Consult Cardiology Stat 11/14/18 08:46 Consult Case Management - Discharge Planning Routine 11/14/18 08:47 Consult Spot Welder Routine Hospital Course (1) Acute on chronic combined systolic and diastolic CHF (congestive heart failure): (1) Acute respiratory failure with hypoxia: due to acute heart failure resolved at this time, breathing well on room air for a few days (2) Acute on chronic combined systolic and diastolic CHF (congestive heart failure): diuresed very well on Bumex 3mg IV BID, down 7kg, negative 6 liters for admission received Diuril over the weekend but not needed any further maintaining a negative fluid balance, Cr at baseline of 1.8 will have close follow up with the heart failure clinic, talked with PA today discharge on Bumex 1mg BID continue Coreg 3.125mg BID stop Verapamil and Labetalol, did not receive these medications the entire admission and HR and BP controlled repeat limited echo on 11/20 showed that EF returned to 45% (3) Pulmonary edema: resolved quickly with aggressive diuresis (4) Pleural effusion: using Bumex for diuresis (5) Anemia: stable (6) GERD (gastroesophageal reflux disease): no current symptoms (7) Hypothyroidism: continue Synthroid 8) CKD (chronic kidney disease), stage III: cr stable at 1.8 on Bumex (9) DM II (diabetes mellitus, type II), controlled: diabetic diet, monitor for hypoglycemia, no episodes (10) Hypokalemia: resolved with PO supplementation (11) Atrial fibrillation rates controlled on Amiodarone, Digoxin, Coreg anticoagulated on Eliquis (2) Acute respiratory failure: (3) Anemia: (4) Pulmonary hypertension: (5) Hypokalemia: (6) Pleural effusion: Total Time Total Time Spent Total Time Spent (In Minutes): 40 minutes Total Time Includes: Examination of the Patient, Discharge Planning, Medication Reconciliation and Communication With Other Providers (Dr. Alvarez) Discharge Plan Discharge Items Patient Disposition: Home - Self-Care Reason For Visit: ACUTE HEART FAILURE Discharge Diagnosis: Acute systolic heart failure Condition: Good Discharge Goals: Improve disease control and Improve function Activity: Resume your previous activity Non-emergency contact: Primary Care Provider and Hand Flesher Call non-emergency contact if: you have any medication questions, your symptoms worsen and you have a fever Follow-up/Referrals: Boby Reddy MD [Primary Care Provider] - 11/26/18 1:00 pm (Please, follow up at Dr. Reddy's office with his anesthesia assistant, Antonia Gerber PA-C, on MondayNovember 26 at 1:00 pm. *If you need to change this appointment, call the office at [phone].) Diet: Carb Consistent or DM2 and Heart Healthy Fluids: 2000ml (8 cups) Addtl Provider Instructions: Medications: - BUMEX: replaces the Lasix that your were taking, you will be on 1mg twice a day - POTASSSIUM: dose increased from 20mEq daily to twice a day - VERAPAMIL and LABETALOL: stop these medications you have not been receiving these medications your entire visit and your blood pressure and heart rate have been well controlled want to limit number of medications you are taking and there currently is not indication for these Acute systolic heart failure: treated with IV diuretics, removed 6 liters of fluid initial echocardiogram showed that the heart was weaker, EF down from previous echo however, repeat echocardiogram yesterday showed that EF was back to 45% will treat with Bumex, Coreg most important way to monitor treatment is to weigh yourself DAILY step on scale every morning, record weight, if it goes up by 2-3 lbs then contact wire setter or PCP follow a fluid restriction of 2000mL a day (this includes all fluids that you drink) follow a low salt diet follow up with the heart failure clinic within one week FOLLOW UP - Dr. Reddy on 11/26 - Heart Failure clinic within one week, they will contact you for appointment Call 911 and go to the Emergency Room if: * You have tightness or pain in your chest that does not go away with rest or Nitroglycerin * You are very short of breath even with rest Call your doctor if any of the following symptoms or problems start or get worse: * Shortness of breath or difficulty breathing * Wake up at night short of breath * Chest pain * Cough * Swelling of your hands, fee, or legs * More fatigued or tired with your normal activity * Palpitations - sudden fast heart beats WEIGHT * Weigh yourself every morning after using the bathroom. * Use the same scale. * Wear the same amount of clothing. * Write your weight down on your chart. * Call your doctor if you gain more than 2-3 pounds in 1-2 days. MEDICATIONS * Use this discharge instruction sheet for instructions. * Take your medications at the time your doctor ordered. * Do not skip a dose of your medicines. * If you miss a dose of medicine, take as soon as possible, but DO NOT DOUBLE A DOSE. * Read your medicine information when you get home. * Know all of the side effects of your medicine. * Call your doctor's office if you have any side effects. * Be sure all of your doctors know what medicine and herbs you take (including cold, flu, and herbal medicine). * Pain Medicine: If you do not get relief from your pain, please call your doctor for help. Take the following with you to your follow-up doctor appointments: * Weight Chart * Medication List * List of questions Do not drink excessive alcohol, beer or wine. Prescriptions: New bumetanide 1 mg Tablet 1 mg PO BID17 30 Days Qty: 60 RF: 2 Continue amiodarone 200 mg Tablet 200 mg PO QPM RF: 0 clopidogrel [Plavix] 75 mg Tablet 75 mg PO QPM RF: 0 digoxin 125 mcg Tablet 0.125 mg PO 3XWK RF: 0 albuterol sulfate 90 mcg/actuation Hfa Aerosol Inhaler 2 puff INHALATION Q6H PRN (Reason: Shortness Of Breath Or Wheezing) RF: 0 apixaban [Eliquis] 5 mg Tablet 5 mg PO BID RF: 0 multivitamin [Multiple Vitamins] Tablet 1 tab PO DAILY RF: 0 isosorbide mononitrate 30 mg Tablet Extended Release 24 Hr 30 mg PO QAM RF: 0 carvedilol 3.125 mg Tablet 3.125 mg PO BID RF: 0 levothyroxine 75 mcg Tablet 75 mcg PO DAILY RF: 0 garlic 1,000 mg Capsule 1,000 mg PO QAM RF: 0 vitamin E 400 unit Capsule 400 unit PO DAILY RF: 0 insulin asp prt-insulin aspart [Novolog Mix 70-30 U-100 Insuln] 100 unit/mL ( 70-30) Solution 1 sliding scale dose SUBCUT AMPM RF: 0 magnesium oxide 400 mg Capsule 400 mg PO QPM RF: 0 triamcinolone acetonide 0.1 % Cream 1 applic TOPICAL DAILY PRN (Reason: Skin Irritation) RF: 0 collagenase clostridium histo. [Santyl] 250 unit/gram Ointment 1 applic TOPICAL DAILY PRN (Reason: Unknown) RF: 0 Changed potassium chloride 20 mEq Tablet Extended Release 20 meq PO BID 30 Days Qty: 60 RF: 2 Discontinued verapamil 120 mg Tablet Extended Release 120 mg PO PM RF: 0 furosemide [Lasix] 40 mg Tablet 40 mg PO BID RF: 0 labetalol 75 mg PO QPM RF: 0 Stand-Alone Forms: [facility] Discharge Orders: Discharge Order (Routine); Ordered 11/21/18 Ordered By: Gato Lopez Admission Data Admit Date/Time: 11/14/18 08:47 Attending Provider: Gato Lopez Admit Provider: Bhanu Rueda Primary Care Provider: Boby Reddy Other Providers: Bhanu Rueda ; Pascual Sanchez ; Aurelio Easton Service: Medical Other Interventions: Discharge Summary Assessment (RN) Last Done: 11/21/18 10:38 DC Date/Time DO NOT enter until pt leaves facility: 11/21/18 11:47
== END 2018-11-21 11:47 | disposition home or self-care (01) | DRG 291 ==
LOC: EDSEX → MERGE 06:10 → ED 06:10 → SUATTDRO 08:47 → 1E 08:47 → 2S 11-16 18:54 → 4E 11-20 11:33

== ENCOUNTER 2019-06-12 08:17 | Observation (INO) ==
[2019-06-12] MEDS ORDERED: MIDAZOLAM HCL 1 MG/ML 2ML VIAL ONE (09:13)
[2019-06-12] MEDS ORDERED: NITROGLYCERIN/D5W 100MCG/ML 20ML SYR ONE (09:13)
[2019-06-12] MEDS ORDERED: HEPARIN (PORCINE) 1000 UNIT/ML 10 ML (CATH LAB USE ONLY) ONE (09:13)
[2019-06-12] MEDS ORDERED: fentaNYL citrate 100 MCG/2 ML VIAL ONE (09:13)
[2019-06-12] MEDS ORDERED: NiCARDipine HCL INJ 2.5 MG/ML 10 ML AMP ONE (09:13)
--- NOTE | 2019-06-12 09:19 | Pre Anesthesia Assessment ---
Date of Service June 12, 2019 Pre Sedation Assessment Vital Signs Temp Pulse Resp BP Pulse Ox 06/12/19 08:42 97.7 F 90 18 168/77 H 94 Cardiovascular RRR, no murmur, no edema Respiratory normal respiratory effort, lungs clear to auscultation Pre-Sedation Airway Assessment Smoking Status: Never smoker Hx Sleep Apnea: No Hx Difficult Intubation: No Short, Thick Neck: No Thyromental Distance: > or= 3.5 Finger Breadths Oral Cavity: + Dentures Mallampati Class: III ASA: ASA3 NPO Status Date of Last Intake of Fluids: 06/11/19 Time of Last Intake of Fluids: 20:00 Date of Last Intake of Solid Food: 06/11/19 Time of Last Intake of Solid Foods: 20:00 Procedure Planning Contraindications for Sedation: none Current Medications Reviewed: Yes Notes The planned sedation has been discussed with the patient. Informed Consent was obtained. I have identified the patient, determined the appropriateness of sedation and have assessed the patient immediately prior to the procedure. All medicine(s) and interventions are by my order.
--- NOTE | 2019-06-12 09:20 | History & Physical Bridge Note ---
Date of Service June 12, 2019 History & Physical Bridge Note I have examined the patient, reviewed the History & Physical and in the interval since the performance of the History & Physical I have noted the following changes of clinical significance: no changes noted
[2019-06-12] MEDS ORDERED: FUROSEMIDE 40 MG/4 ML VIAL IV ONE (10:19)
[2019-06-12] MEDS ORDERED: CLOPIDOGREL BISULFATE 300 MG TAB ONE (10:26)
[2019-06-12] MEDS ORDERED: NITROGLYCERIN 2% OINTMENT 30GM TUBE ONE (10:27)
--- NOTE | 2019-06-12 10:37 | Post Anesthesia Assessment ---
Date of Service June 12, 2019 Post Sedation Assessment Vital Signs Temp Pulse Resp BP Pulse Ox 06/12/19 08:42 97.7 F 90 18 168/77 H 94 Recovery Score Activity: Moves 4 extremities Respiration: Deep Breath/Cough Circulation: +/-20% PreAnes Value Consciousness: Fully Awake Oxygen Saturation: O2 needed for >90% Discharge Sedation Level of Care: Fast Track Phase II Post Sedation Plan On clinical assessment, the patient appears to have tolerated the sedation without complications. Patient is recovering as anticipated. Patient will continue to be monitored by nursing and may be discharged when sedation discharge criteria are met per below protocol. Upon Completions of procedure and additional 15 minutes continue every 5 minute vital signs and the P.A.R. score; then discharge to a Phase I or Fast Track to Phase II per the following guidelines: * Discharge Patient to appropriate Phase II area if PAR is 8 or greater or return to pre- procedure baseline. The post - procedure orders will be as directed. * If PAR score is less than 8 or not return to pre-procedure baseline then patient will follow Phase I monitoring till PAR is reached for Phase II. The Phase I may be done in procedure room or may call to secure a Phase I area. * If naloxone or flumazenil are used for reversal, hold in Phase I for continued monitoring from when last reversal dose was given for a minimum of 60 minutes or longer pending the nurse and/or physician discretion of patient condition before discharge to Phase II. Please call the Sedation Physician to re-evaluate and complete post-note for discharge to Phase II area. Do NOT discharge from procedure sedation or Phase 1 until post- sedation evaluation note is complete by procedure /sedation MD Sedation Discharge Instructions to be given to the patient at discharge to home.
--- NOTE | 2019-06-12 10:39 | Cardiac Catheterization ---
[facility] Data: Yardmaster Cardiac Status Clinical evaluation leading to the procedure CAD Presenation: Unstable angina Anginal Classification: CCS III Heart Failure: No Cardiogenic Shock within 24 Hours: No Cardiac Arrest within 24 Hours: No Imaging Studies Past 6 Months: No Stress Studies Past 6 Months: No Diagnostic Physicians Name: Petey Bateman MD Status: Elective Closure Device Percutaneous Entry Location: Radial Closure Device: Radial Band Recommendations: PCI without planned CABG PCI Indication: Unstable Angina Lesion Segment Name: mid circumflex Culprit Artery: Yes Stenosis Prior to Rx (%): 80-90 Chronic Total Occlusion: No IVUS: No FFR: No Pre-Procedure VIJAYA Flow: 3 Previously Treated Lesion: No Lesion Complexity: Non-High/Non-C Lesion Length (mm): 12 Thrombus Present: No Bifurcation Lesion: No Guidewire Across Lesion: Stenosis Post-Procedure (%): 0 Post-Procedure VIJAYA Flow: 3 Devices(s) Deployed: Yes Yes Intraprocedure Events Significant Disection: No Perforation: No Cardiac Cath Procedure Full Procedure Date June 12, 2019 Pre-Procedure Diagnosis Pre-Procedure Diagnosis: Angina AUC Score AUC Score: 8 Post-Procedure Diagnosis Post-Procedure Diagnosis: Severe CAD and Successful PCI Procedure(s) Performed Procedure(s) Performed: Coronary Angiography and Drug Eluting Stent Yardmaster Petey Bateman MD Global Project Manager(s) Snehal Estimated Blood Loss Estimated Blood Loss: 15 Medication(s) Medication(s): Clopidogrel, Fentanyl, Heparin, Lidocaine 1%, Nicardipine, Nitroglycerin and Versed Medication(s): furosemide Summary of Findings Indication: Accelerating angina Access: 6Fr right radial artery Catheters: [place], pigtail; EBU 3.5 guide Findings: LM - 30% ostial stenosis LAD - Moderate caliber vessel, widely patent proximal to mid LAD stents. Small 2nd diagonal subtotally occluded. Circumflex - 50% ostial stenosis, 20-30% diffuse proximal disease, 80-90% focal mid segment stenosis at take-off of small OM2. High OM1 40% proximal disease. RCA - Dominant, 50-60% calcified ostium, 20% distal disease. LVEDP 29 -- PCI mid circumflex -- LM cannulated with EBU 3.5 guide (mild waveform dampening with catheter engagemeent). Materials Specialist 50 wire navigated into distal circumflex. Mid circumflex dilated with 2.5 compliant balloon. Mid circumflex stented with 2.75 x 18 Shahid NATY Stent post-dilated with 2.75 NC balloon. IC vasodilators administered for spasm. Post procedure VIJAYA 3 flow in circumflex with no apparent edge dissection. Small OM2 with ostial disease but VIJAYA 3 flow Patient developed chest pain and shortness of breath towards end of procedure. Repeat LVEDP 30 Given IV lasix 40x1, nitropaste placed. Summary: 1. New severe mid circumflex 80% stenosis 2. Moderate multivessel non-obstructive CAD -30% ostial LM - 50% ostial circumflex - 50% ostial RCA - Widely patent LAD stents 3. Elevated LVEDP - 29. 4. Successful PCI of mid circumflex with single NATY (2.75 x 18 Shahid). Recommendations: Admit to PCU for observation Diuresis for elevated filling pressures Antianginal therapy for severe small vessel disease Reloaded with clopidogrel 300mg in cemetery laborer, continue DAPT with ASA/Clopidogrel indefinitely. Hemodynamics Rest Ao:: 146/57/89 Final Ao: 157/61/97 LV: 29 Recommendations Recommendations: PCI without planned CABG Specimens Specimens: None Radiation Exposure (mGy) 2912 Contrast (mls) 130 Fluids (cc crystalloids) Fluids (cc crystalloids): 100 Drains Drains: none Anesthesia moderate Procedural Complication(s) None Disposition PCU
[2019-06-12] MEDS ORDERED: ONDANSETRON INJ 2 MG/ML 2 ML VIAL IV PRN ×2 (11:05→11:07)
[2019-06-12] MEDS ORDERED: ACETAMINOPHEN 325 MG TAB PO PRN (11:05)
[2019-06-12] MEDS ORDERED: ONDANSETRON INJ 2 MG/ML 2 ML VIAL ONE (11:09)
[2019-06-12] MEDS ORDERED: ALBUTEROL HFA 8 GM INHALER INH PRN (11:09)
[2019-06-12] MEDS ORDERED: GLUCOSE 40% GEL 15 GM TUBE PO PRN (11:20)
[2019-06-12] MEDS ORDERED: DEXTROSE 50% 50 ML SYRINGE IV PRN (11:20)
[2019-06-12] MEDS ORDERED: CARBOHYDRATES FOR HYPOGLYCEMIA PO PRN (11:20)
[2019-06-12] MEDS ORDERED: GLUCAGON FOR INJ 1 MG VIAL SQ PRN (11:20)
[2019-06-12] MEDS ORDERED: GLUCOSE 10 TABS/TUBE PO PRN (11:20)
[2019-06-12] MEDS ORDERED: PHARMACY GLYCEMIC MGMT CONSULT SCH (11:55)
[2019-06-12] MEDS ORDERED: INSULIN GLARGINE SOLOSTAR 100 UNITS/ML 3 ML PEN SC ONE (12:00)
--- NOTE | 2019-06-12 12:01 | Pharmacy Report ---
Pharmacy Glycemic Short Note 2 - Date of Service June 12, 2019 - Glycemic Short BSG Results (Last 24 hours): 06/12/19 11:25 POC Glucose 186 H OUTPATIENT ANTIDIABETIC REGIMEN (per patient interview): * Novolog 70/30 mix per scale; 15-30 units with breakfast (usually 15 units) + 25-30 units with dinner * A1c = 6.6% 04/30/19 ASSESSMENT: * Reasonably well controlled type 2 diabetic admitted for unstable angina, now s/p CC with stenting of LCX * Patient uses ~40-50 units of insulin per day on average * Will utilize a basal / bolus SQ regimen today based upon her out-pt regimen. * Will give a single dose of Lantus at this time, as this will make it easier to transition to split mixed regimen tomorrow should she be ready for discharge. * Patient states she did not take any of her 70/30 insulin this AM as she was not permitted to eat and her BSG was in the 110's range PLAN FOR INPATIENT GLYCEMIC CONTROL: * Hold 70/30 insulin at this time * Basal insulin * Lantus 20 units SQ x 1 now * Bolus insulin * NovoLog per scale ACHS or Q6hrs while NPO * Goal Range: Low 110 mg/dL - High 140 mg/dL * Correction Factor: 30 mg/dL/unit * Nutritional / Prandial insulin per carb ratio of 1 unit per 10 grams CHO consumed PLAN FOR DISCHARGE: * resume home dosage of 70/30 insulin if she is not experiencing frequent hypoglycemia.
[2019-06-12] MEDS: INSULIN ASPART 100 UNITS/ML 3 ML PEN SC SCH ×3 (13:12→21:00)
[2019-06-12] MEDS: BUMETANIDE 1 MG TAB PO SCH (17:56)
[2019-06-12] MEDS: CARVEDILOL 6.25 MG TAB PO SCH (20:34)
[2019-06-12] MEDS ORDERED: CLOPIDOGREL BISULFATE 75 MG TAB PO SCH (21:00)
[2019-06-12] MEDS ORDERED: AMIODARONE 200 MG TAB PO SCH (21:00)
[2019-06-12] MEDS ORDERED: MAGNESIUM OXIDE 400 MG TAB PO SCH (21:00)
[2019-06-12] MEDS ORDERED: TRAZODONE HCL 50 MG TAB PO SCH (21:00)
[2019-06-13 06:20] LABS: Basophils # (auto) 0.03 K/uL (0-0.2); Basophils % (auto) 0.3 %; Eosinophils # (auto) 0.32 K/uL (0-0.5); Eosinophils % (auto) 3.4 %; Hematocrit (blood only) 38.6 % (37-47); Hemoglobin 12.7 g/dL (12.0-16.0); Immature Granulocytes # (auto) 0.02 K/uL (0.00-0.02); Immature Granulocytes % (auto) 0.2 %; Lymphocytes # (auto) 1.87 K/uL (1.2-3.4); Lymphocytes % (auto) 20.2 %; Mean Corpuscular Hgb Conc 32.9 g/dL (32-36); Mean Corpuscular Volume 100.3 fL (80-100); Mean Platelet Volume 10.9 fL (7.4-10.4); Monocytes # (auto) 0.82 K/uL (0.11-0.59); Monocytes % (auto) 8.8 %; Neutrophils # (auto) 6.22 K/uL (1.4-6.5); Neutrophils % (auto) 67.1 %; Platelet Count 218 K/uL (130-400); RDW Coefficient of Variation 13.2 % (11.5-14.5); RDW Standard Deviation 48.1 fL (36.4-46.3); Red Blood Count 3.85 M/uL (4.2-5.4); White Blood Count 9.28 K/uL (4.8-10.8)
[2019-06-13] MEDS ORDERED: LEVOTHYROXINE SODIUM 75 MCG TABLET PO SCH (06:30)
[2019-06-13 06:48] LABS: Creatinine Clr Calc Pharmacy 28.3 ml/min; Est GFR (African American) 29.5; Est GFR (Non-African American) 25.4
[2019-06-13] MEDS: BUMETANIDE 1 MG TAB PO SCH (08:02)
[2019-06-13] MEDS: CARVEDILOL 6.25 MG TAB PO SCH (08:02)
[2019-06-13] MEDS: INSULIN ASPART 100 UNITS/ML 3 ML PEN SC SCH (08:03)
[2019-06-13] MEDS ORDERED: ASPIRIN 81 MG ECTAB PO SCH (09:00)
[2019-06-13] MEDS ORDERED: ISOSORBIDE MONO EXTENDED REL 30 MG TABCR PO SCH (09:00)
[2019-06-13] MEDS ORDERED: MULTIVITAMIN TAB PO SCH (09:00)
[2019-06-13] MEDS ORDERED: APIXABAN 5 MG TABLET PO SCH (09:00)
[2019-06-13] MEDS ORDERED: PANTOprazole 40 MG TAB PO SCH (09:00)
[2019-06-14] MEDS ORDERED: DIGOXIN 0.125 MG TAB PO SCH (09:00)
--- NOTE | 2019-06-14 20:22 | Discharge Summary ---
Date of Service June 14, 2019 Admission HPI Per Admitting Provider Ms. Barry is a very pleasant 78 year old female with a history of CAD post prior multiple stents to her LAD most recently in 10/2018, chronic diastolic heart failure, sinus bradycardia post D-PPP, PAF who was referred for cardiac catheterization in the setting of progressive angina. Specialty Data Cardiology Cardiac catheterization/PCI: 1. New severe mid circumflex 80% stenosis 2. Moderate multivessel non-obstructive CAD -30% ostial LM - 50% ostial circumflex - 50% ostial RCA - Widely patent LAD stents 3. Elevated LVEDP - 29. 4. Successful PCI of mid circumflex with single NATY (2.75 x 18 Shahid). Discharge Data Consultations 06/12/19 11:08 Consult Cardiac Rehabilitation Routine Procedures Performed Operation Date: 06/12/19 09:30 Actual Procedures p Cath, Left with Cors and Vent - Pascual Bateman MD s Cineradiography w/Routine Exam - Pascual Bateman MD s Drug Eluting Stent SGl Vessel - Pascual Bateman MD Hospital Course (1) Coronary artery disease: Cardiac catheterization revealed new severe mid circumflex disease treated with a single drug-eluting stent. Procedure complicated by chest pain, dyspnea/hypoxia. LVEDP post procedure 30 mmHg and responded to topical nitrates and IV lasix. Admitted for observation post procedure. Negative 1500 over h ospitalization. Telemetry unremarkable. Stable post procedure labs. No access site complication. No recurrent chest pain. Breathing comfortably on RA at discharge. Discharged on triple therapy with aspirin, clopidogrel and eliquis. Plan to stop ASA in 1 week. Continue home bumex 1 mg BID. Follow-up with Dr. Irizarry in 2 weeks. Discharge Instructions Home Medications digoxin 0.125 mg PO 3XWK 11/14/18 [History Confirmed 06/12/19] amiodarone 200 mg tablet 200 mg PO QPM #90 tab 04/01/19 [Rx Confirmed 06/12/19] apixaban 5 mg tablet 5 mg PO BID #120 tab 04/01/19 [Rx Confirmed 06/12/19] garlic 1,000 mg capsule 1,000 mg PO QAM #30 cap 04/01/19 [Rx Confirmed 06/12/19] magnesium 400 mg (as magnesium oxide) capsule 400 mg PO QPM #90 cap 04/01/19 [Rx Confirmed 06/12/19] vitamin E 400 unit capsule 400 unit PO DAILY #90 cap 04/01/19 [Rx Confirmed 06/12/19] pantoprazole 40 mg tablet,delayed release 40 mg PO DAILY #30 tab 05/10/19 [Rx Confirmed 06/12/19] blood sugar diagnostic strips 1 strip MISCELLANEOUS TID #100 ea 05/13/19 [Rx Confirmed 06/11/19] bumetanide 1 mg tablet 1 mg PO BID #90 tab 05/19/19 [History Confirmed 06/12/19] multivitamin tablet 1 tab PO DAILY 05/19/19 [History Confirmed 06/12/19] potassium chloride ER 20 mEq tablet,extended release 20 meq PO BID tab 05/19/19 [History Confirmed 06/12/19] clopidogrel 75 mg tablet 75 mg PO QPM #90 tab 05/21/19 [Rx Confirmed 06/12/19] levothyroxine 75 mcg tablet 75 mcg PO DAILY #90 tab 05/21/19 [Rx Confirmed 06/12/19] insulin aspar prt-insulin aspart 100 unit/mL (70-30) subcutaneous soln 50 units SUBCUT AMPM #30 ml 06/05/19 [Rx Confirmed 06/12/19] carvedilol 6.25 mg tablet 6.25 mg PO BID #60 tab 06/06/19 [History Confirmed 06/12/19] cholecalciferol (vitamin D3) 1,000 unit capsule 1,000 units PO DAILY 06/06/19 [History Confirmed 06/12/19] isosorbide mononitrate ER 30 mg tablet,extended release 24 hr 30 mg PO QAM #10 tab 06/06/19 [Rx Confirmed 06/12/19] trazodone 50 mg tablet 50 mg PO DAILY 06/06/19 [History Confirmed 06/12/19] albuterol sulfate HFA 90 mcg/actuation aerosol inhaler 2 puff INHALATION Q6H PRN #8 gm 06/11/19 [Rx Confirmed 06/12/19] aspirin [Ecotrin Low Strength] 81 mg PO QAM #30 tab 06/13/19 [Rx]
== END 2019-06-13 12:41 | disposition home or self-care (01) ==
LOC: 2S 08:17 → CC 08:17
DX: I25.5 Ischemic cardiomyopathy; I25.110 Atherosclerotic heart disease of native coronary artery with unstable angina pectoris; Z79.4 Long term (current) use of insulin; Z79.899 Other long term (current) drug therapy; Z91.040 Latex allergy status; Z79.82 Long term (current) use of aspirin; Z88.8 Allergy status to other drugs, medicaments and biological substances; Z88.5 Allergy status to narcotic agent; I50.42 Chronic combined systolic (congestive) and diastolic (congestive) heart failure; I48.0 Paroxysmal atrial fibrillation

== ENCOUNTER 2019-10-03 08:41 | Inpatient (IN) ==
[2019-10-03] MEDS ORDERED: NITROGLYCERIN 2% OINTMENT 30GM TUBE EXT STA (09:21)
[2019-10-03] MEDS ORDERED: ASPIRIN CHEW 324 MG PO STA (09:22)
[2019-10-03] MEDS ORDERED: NITROGLYCERIN 2% OINTMENT 30GM TUBE ONE (09:23)
--- NOTE | 2019-10-03 09:44 | XRay Report ---
XR chest 1V portable CLINICAL HISTORY: Shortness of breath. COMPARISON STUDY: Chest radiograph June 05, 2019. FINDINGS: A left subclavian pacemaker is in place. There is no pneumothorax. Small right and trace le ft pleural effusions are noted. Pulmonary edema has developed since prior exam. There are bibasilar o pacities. Widening of the right paratracheal stripe is unchanged and due to normal vessels. IMPRESSION: 1. Interval development of pulmonary edema. 2. Small right and trace left pleural effusions with bibasilar opacities. ACT 112: Negative or not required by law. Electronically signed by: Cali Jacobo M.D. 10/03/2019 9:43 AM
[2019-10-03] MEDS ORDERED: BUMETANIDE 1 MG in SYRINGE 0 ML IV STA (09:45)
[2019-10-03] MEDS ORDERED: HYDROmorphone INJ 0.5 MG/0.5 ML SYR IV STA (09:55)
[2019-10-03] MEDS ORDERED: ONDANSETRON INJ 2 MG/ML 2 ML VIAL IV STA (09:55)
[2019-10-03 10:00] LABS: Basophils # (auto) 0.04 K/uL (0-0.2); Basophils % (auto) 0.4 %; Eosinophils # (auto) 0.25 K/uL (0-0.5); Eosinophils % (auto) 2.3 %; Hematocrit (blood only) 43.3 % (37-47); Hemoglobin 14.3 g/dL (12.0-16.0); Immature Granulocytes # (auto) 0.02 K/uL (0.00-0.02); Immature Granulocytes % (auto) 0.2 %; Lymphocytes # (auto) 1.44 K/uL (1.2-3.4); Mean Corpuscular Hemoglobin 33.7 pg (25-34); Mean Corpuscular Volume 102.1 fL (80-100); Mean Platelet Volume 10.4 fL (7.4-10.4); Monocytes # (auto) 0.72 K/uL (0.11-0.59); Monocytes % (auto) 6.5 %; Neutrophils # (auto) 8.64 K/uL (1.4-6.5); Neutrophils % (auto) 77.6 %; Platelet Count 319 K/uL (130-400); RDW Coefficient of Variation 13.5 % (11.5-14.5); RDW Standard Deviation 50.4 fL (36.4-46.3); Red Blood Count 4.24 M/uL (4.2-5.4); White Blood Count 11.11 K/uL (4.8-10.8)
[2019-10-03 10:17] LABS: Partial Thromboplastin Ratio 0.9; Partial Thromboplastin Time 24.8 Seconds (21.0-31.0); Prothrombin Time 10.5 Seconds (9.0-12.0)
[2019-10-03 10:23] LABS: Alanine Aminotransferase 27 U/L (12-78); Albumin Level 3.3 gm/dl (3.4-5.0); Aspartate Aminotransferase 22 U/L (15-37); BUN Creatinine Ratio 15.5 (10-20); Blood Urea Nitrogen 29 mg/dl (7-18); Calcium 8.8 mg/dl (8.5-10.1); Carbon Dioxide 27 mmol/L (21-32); Chloride 103 mmol/L (98-107); Creatinine Clr Calc Pharmacy 27.6 ml/min; Est GFR (African American) 29.1; Est GFR (Non-African American) 25.1; Glucose 231 mg/dl (70-99); Magnesium 2.2 mg/dl (1.8-2.4); Potassium 4.2 mmol/L (3.5-5.1); Sodium 135 mmol/L (136-145)
[2019-10-03 10:28] LABS: Albumin Globulin Ratio 0.7 (0.9-2); Alkaline Phosphatase 121 U/L (45-117); Bilirubin,Total 0.5 mg/dl (0.2-1); Globulin 4.4 gm/dl (2.5-4.0); NT Pro B Type Natriuretic Pept 3048 pg/ml (0-1800); Total Protein 7.7 gm/dl (6.4-8.2); Troponin I < 0.015 ng/ml (0-0.045)
[2019-10-03] MEDS ORDERED: HydrALAZINE HCL 20 MG/ML VIAL IV STA (10:41)
[2019-10-03] MEDS ORDERED: NITROGLYCERIN SL 0.4 MG/TAB TAB SL PRN (11:09)
[2019-10-03] MEDS ORDERED: GLUCOSE 40% GEL 15 GM TUBE PO PRN (11:09)
[2019-10-03] MEDS ORDERED: CARBOHYDRATES FOR HYPOGLYCEMIA PO PRN (11:09)
[2019-10-03] MEDS ORDERED: GLUCAGON FOR INJ 1 MG VIAL SQ PRN (11:09)
[2019-10-03] MEDS ORDERED: DEXTROSE 50% 50 ML SYRINGE IV PRN (11:09)
[2019-10-03] MEDS ORDERED: MAGNESIUM HYDROXIDE SUSP 30 ML UDC PO PRN (11:09)
[2019-10-03] MEDS ORDERED: ALUMINUM/MAGNESIUM SUSP 30 ML UDC PO PRN (11:09)
[2019-10-03] MEDS ORDERED: ACETAMINOPHEN 325 MG TAB PO PRN (11:09)
[2019-10-03] MEDS ORDERED: POLYETHYLENE (MIRALAX) 17 GM PACK PO PRN (11:09)
[2019-10-03] MEDS ORDERED: ONDANSETRON INJ 2 MG/ML 2 ML VIAL IV PRN (11:09)
[2019-10-03] MEDS ORDERED: MoRPHine SULFATE 2 MG/ML CARP IV PRN (11:09)
[2019-10-03] MEDS ORDERED: GLUCOSE 10 TABS/TUBE PO PRN (11:09)
[2019-10-03] MEDS ORDERED: PHARMACY GLYCEMIC MGMT CONSULT PRN (11:22)
--- NOTE | 2019-10-03 11:57 | History & Physical Report ---
Date of Service October 03, 2019 Assessment & Plan (1) Acute congestive heart failure: Admit to PCU on telemetry Vital signs every 4 hours Strict in and out Daily weight Continue Bumex 1 mg IV BID Monitor BNP(part of BNP elevation is due to poor clearance related to CKD stage III) Monitor chest pain-unstable angina Troponin every 6 hours x3 with EKG Continue Nitropaste for chest pain and hypertension. Continue home medicine; amiodarone 200 mg p.o. every afternoon, apixaban 2.5 mg p.o. twice daily carvedilol 9.375 mg twice daily, clopidogrel 75 mg p.o. every afternoon, digoxin 0.125 mg 3 times a week, garlic 1000 mg capsule p.o. every morning, magnesium oxide 400 mg p.o. every afternoon, multivitamins p.o. daily, ranolazine 1000 mg p.o. twice daily. Daily labs, and replenish electrolytes. Consult cardiology DVT prophylaxis the apixaban for atrial flutter as well for DVTs Patient is full code Present on Admission?: Yes (2) Acute respiratory failure: Likely due to volume overload and pulmonary edema. Patient is now on BiPAP, responding very well, her O2 sats are 95% and flow rate of 30 L/min Continue BiPAP/CPAP per protocol as needed. Patient is not on oxygen at home per history. Present on Admission?: Yes (3) Unstable angina: Consult cardiology. Will discuss further on. Patient had recent TTE on September 12, 2019 which showed left atrium moderately dilated, moderate to severe valvular aortic stenosis, moderate to severe left ventricular systolic dysfunction. Borderline left ventricular dilatation, moderate left atrial dilatation, moderate to severe aortic stenosis. Trace aortic regurgitation. Moderate mitral regurgitation. Moderate tricuspid regurgitation. Moderately elevated right ventricular systolic pressures pressure. Patient has diastolic congestive heart failure. Continue nitroglycerin paste as needed for chest pain. Monitor blood pressure every 4 hours Present on Admission?: Yes (4) GERD (gastroesophageal reflux disease): Continue home dose of pantoprazole 40 mg p.o. daily as needed. Hold if worsening kidney function. Present on Admission?: Yes (5) Hypothyroidism: TSH pending. Continue for now levothyroxine 75 MCG's p.o. daily. Present on Admission?: Yes (6) CKD (chronic kidney disease), stage III: Appears to worsening .patient creatinine is in the range of 1.63-1.86 with a GFR of 18.2-15.5. Plan to consult nephrology. Will be that patient would benefit from temporary hemodialysis. Probably her symptoms of uncontrolled blood pressure , failing kidneys volume overload resulted as unstable angina Present on Admission?: Yes (7) DM II (diabetes mellitus, type II), controlled: Readjust home dose insulin to two thirds of what patient takes at home. Otherwise glycemic control per pharmacy. Accu-Cheks before meals and at bedtime. Last hemoglobin A1c was 6.4 on August 27. Repeat A1c and lipid panel. Present on Admission?: Yes (8) Atrial flutter: As already discussed Present on Admission?: Yes (9) Morbid obesity: Patient advised to try to reduce her weight at least 10 pounds. Recommended healthy lifestyle and proper diet. Present on Admission?: Yes (10) HLD (hyperlipidemia): Lipid panel pending. Patient has a lots of allergies among other things is statins and ezetimibe. Will defer to cardiology. Possibly they can order Repatha. Present on Admission?: Yes (11) HTN (hypertension): As already discussed continue home medicine. Hydralazine 10 mg IV as needed for blood pressure elevated above 160/90 Present on Admission?: Yes (12) CAD (coronary artery disease): Continue home medicine: Amiodarone 200 mg p.o. every afternoon, carvedilol 9.375 p.o. twice daily, clopidogrel 75 mg p.o. every afternoon, digoxin 0.125 mg p.o. 3 times a week, magnesium 400 mg p.o. every afternoon, potassium chloride 20 mg p.o. twice daily, ranolazine 1000 mg p.o. twice daily, consider Repatha if patient has elevated lipid panel. 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 Patient denies fever, chills, abdominal pain, syncope, near syncope, hematemesis, hematuria, melena, nausea, vomiting. Patient has a longstanding history of cardiac ischemia in 2009 with mildly reduced left ventricular function and also mild valvular aortic disease as well moderate mitral regurgitation. Patient had cardiac catheterization on April 22, 2015 showing a left ventricular ejection fraction of 45 to 50% with progressive disease but no other intervention was required at that time. In January 2016 patient underwent urgent cardioversion for atrial flutter with RVR and she was started on amiodarone and continued on Xarelto for which she was placed for DVT. Later his Xarelto was replaced with Eliquis. Patient has unstable angina and in October 2017 she has intervention for ALD and stents placed in the mid LAD. Patient was also admitted for acute congestive heart failure in April 2018 and stress test was done and abnormal and catheterization thereafter showed diffuse nonobstructive coronary disease. Patient was continued to be treated medically. Patient has a dual-chamber pacemaker implanted on April 2018 and she has longstanding left bundle branch block for the past 4 years but she did not meet criteria for a biventricular pacing nor ICD implantation. In the ER patient was started on 3 inch Nitropaste and given hydralazine 10 mg IV x2 for elevated blood pressure. Bumex was given 1 mg x 1 IV. For shortness of breath patient was placed BiPAP. Labs are reviewed: WBC is 11.11, hemoglobin 14.3, hematocrit 43.3 platelets 319, PT 10.5, INR 1, APTT 24.8, sodium 135, potassium 4.2, BUN 29, creatinine 1.86, GFR 25.1, glucose 231, hemoglobin A1c 6.4 dated August 27, 2019, troponin -0 0.015, BNP 3048, TSH pending. Chest x-ray is reviewed and showed small right and trace left pleural effusion with bibasilar opacities. Pacemaker is in place. There is no pneumothorax. Pulmonary edema has developed since prior exam. Widening of the right paratracheal stripe is unchanged due to normal vessels. EKG significant for atrial paced rhythm and longstanding left bundle branch block QT 416. Decision was made to admit patient to [facility] on telemetry for evaluation of the chest pain/unstable angina and acute congestive heart failure with volume overload. Allergies Allergy/AdvReac Type Severity Reaction Status Date / Time adhesive Allergy Unknown REDNESS Verified 10/03/19 10:54 AND IRRITATION FROM PAIN PATCH, TAPE dulaglutide [From Trulicity] Allergy Unknown Unknown Verified 10/03/19 10:54 glipizide Allergy Unknown Unknown Verified 10/03/19 10:54 latex Allergy Unknown ALLERGIC Verified 10/03/19 10:54 TO LATEX TAPE/RASH/ITCHING morphine Allergy Unknown swelling Verified 10/03/19 10:54 nausea vomiting olmesartan Allergy Unknown UNKNOWN Verified 10/03/19 10:54 exenatide [From Byetta] Allergy Unknown Verified 10/03/19 10:54 glyburide Allergy Unknown Verified 10/03/19 10:54 metformin Allergy Unknown Verified 10/03/19 10:54 sitagliptin [From Januvia] Allergy Unknown Verified 10/03/19 10:54 aspirin AdvReac Mild GI SYMPTOMS Verified 09/27/19 10:04 ezetimibe AdvReac Mild MUSCLE Verified 09/27/19 10:04 ACHES lisinopril AdvReac Unknown LIGHTHEADED Verified 10/03/19 10:54 AND DIZZY pioglitazone AdvReac Unknown DIARRHEA Verified 10/03/19 10:54 NAUSEA Zkkeupx-Yey-Tgc Reductase AdvReac Unknown myalgias Verified 10/03/19 10:54 Inhibitor and weakness benzonatate AdvReac confusion Verified 09/27/19 10:04 [From Giovanni Brennan] statins Allergy Unknown Unknown Uncoded 10/03/19 10:54 Home Medications Home Medications Medication Instructions Recorded Confirmed Type digoxin 0.125 mg PO 3XWK 11/14/18 10/03/19 History amiodarone 200 mg tablet 200 mg PO QPM #90 tab 04/01/19 10/03/19 Rx garlic 1,000 mg capsule 1,000 mg PO QAM #30 cap 04/01/19 10/03/19 Rx magnesium oxide 400 mg (as 400 mg PO QPM #90 cap 04/01/19 10/03/19 Rx magnesium oxide) capsule vitamin E 400 unit capsule 400 unit PO DAILY #90 cap 04/01/19 10/03/19 Rx multivitamin 1 tab PO DAILY 05/19/19 10/03/19 History potassium chloride 20 mEq 20 meq PO BID tab 05/19/19 10/03/19 History tablet,extended release levothyroxine 75 mcg tablet 75 mcg PO DAILY #90 tab 05/21/19 10/03/19 Rx cholecalciferol (vitamin D3) 25 1,000 units PO DAILY 06/06/19 10/03/19 History mcg (1,000 unit) capsule trazodone 50 mg tablet 50 mg PO DAILY 06/06/19 10/03/19 History albuterol sulfate 90 mcg/actuation 2 puff INHALATION Q6H PRN #8 gm 06/11/19 10/03/19 Rx aerosol inhaler clopidogrel 75 mg tablet 75 mg PO QPM #90 tab 06/20/19 10/03/19 Rx apixaban 2.5 mg tablet 2.5 mg PO BID 08/26/19 10/03/19 History carvedilol 6.25 mg tablet 9.375 mg PO BID #90 tab 08/26/19 10/03/19 Rx bumetanide 1 mg tablet 1 mg PO BID #90 tab 09/09/19 10/03/19 Rx ranolazine 1,000 mg 1,000 mg PO BID #180 tab 09/27/19 10/03/19 Rx tablet,extended release,12 hr blood sugar diagnostic 1 strip MISCELLANEOUS TID #100 ea 09/30/19 Rx insulin aspar prt-insulin aspart 50 units SUBCUT AMPM #30 ml 09/30/19 10/03/19 Rx 100 unit/mL (70-30) subcutaneous soln insulin syringe-needle U-100 0.3 See Rx Instructions .ROUTE 09/30/19 Rx mL 31 gauge x 02/28" .COMPLEX #100 unspecified pantoprazole 40 mg PO DAILY PRN 10/03/19 10/03/19 History Past Med/Surg History Medical History Angina pectoris (Acute) Atrial flutter Bilateral carotid artery stenosis CKD (chronic kidney disease), stage III DM II (diabetes mellitus, type II), controlled GERD (gastroesophageal reflux disease) HLD (hyperlipidemia) HTN (hypertension) Hypothyroid Hypothyroidism Left bundle branch block Morbid obesity Occlusion and stenosis of unspecified carotid artery (Acute) PAD (peripheral artery disease) (Acute) Postmenopausal status (Acute) Spondylosis (Acute) Surgical History Pacemaker Presence of stent in LAD coronary artery Family History Daughter Coronary heart disease Mother Diabetes Family history of hypercholesterolemia Brother Colorectal cancer Other Pacemaker Social History Preferred Language: Malian Communication Ability: Effective 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 Beliefs That Will Affect Care: None Current Living Situation: Alone Other Information That Helps Us Care for You: No Feels Safe at Home: Yes Safety Concerns: Feels Safe At This Time Smoking Status: Never smoker Do You Dip or Chew Tobacco: No ; Second Hand Exposure: No ; Tobacco Cessation Education Requested by Patient: No Hx Alcohol Use: No Hx Substance Use: No Seatbelt Use: always Review of Systems Review of Systems: All systems reviewed & are unremarkable except as noted in HPI & below Physical Exam Constitutional: WD/WN, vitals as above well developed, + acute distress, + ill appearing and + morbidly obese Eyes: PERRL, conjunctivae normal, anicteric sclerae ENMT: external ear and nose normal, oropharynx normal Neck: trachea midline, no thyromegaly Respiratory: + respiratory distress and + labored breathing Auscultation: + crackles and + wheezes Cardiovascular: Rate/Rhythm: + irregularly irregular Heart Sounds: normal S1 and normal S2 Palpation: normal PMI, + palpable S3 and + palpable S4 Vessels: + JVD and dorsalis pedis pulses present Extremities: normal capillary refill, + pedal edema and + edema Gastrointestinal (Abdomen): normal bowel sounds, soft, nontender, no hepatosplenomegaly Musculoskeletal: no cyanosis or clubbing, extremities motor strength 5/5 Skin: no rashes, warm and dry Neurologic: patellar DTR's 2+ bilat, sensation intact Psychiatric: A+Ox3, euthymic affect Lymphatic: no cervical or axillary lymphadenopathy Results & Data Vital Signs (Past 12 Hours) Vital Signs Temp Pulse Resp BP Pulse Ox 10/03/19 10:00 71 25 H 204/101 H 98 10/03/19 09:49 71 21 196/112 H 97 10/03/19 09:31 78 29 H 194/113 H 97 10/03/19 09:16 82 20 194/112 H 97 10/03/19 09:06 98 10/03/19 09:01 81 26 H 210/125 H 98 10/03/19 08:58 36.7 C 84 26 H 238/135 H 98 10/03/19 08:52 85 25 H 238/135 H 97 10/03/19 08:44 84 24 98 Code Status & VTE Plan Code Status Full code discussed with patient VTE Prophylaxis Plan VTE Prophylaxis will be ordered: Yes PG Care Time/CCT Total # of Minutes Spent Total Time Spent with Patient: Total time spent is greater than 50% in coordination of care (as documented) at patient's floor/unit and/or counseling patient: (1) Acute respiratory failure Respiratory failure complication: hypoxia Qualified Code(s): J96.01 - Acute respiratory failure with hypoxia (2) Hypothyroidism Hypothyroidism type: acquired Qualified Code(s): E03.9 - Hypothyroidism, unspecified (3) DM II (diabetes mellitus, type II), controlled Diabetes mellitus penitentiary insulin use: with penitentiary use Diabetes mellitus complication status: with kidney complications Diabetes mellitus complication detail: with nephropathy Qualified Code(s): E11.21 - Type 2 diabetes mellitus with diabetic nephropathy; 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
[2019-10-03] MEDS ORDERED: ALBUT/IPRATROP 3MG/0.5MG NEB 3 ML VIAL NEB PRN (12:46)
[2019-10-03] MEDS ORDERED: HydrALAZINE HCL 20 MG/ML VIAL IV PRN (12:46)
[2019-10-03] MEDS ORDERED: ALBUTEROL HFA 8 GM INHALER INH PRN (12:46)
[2019-10-03] MEDS: INSULIN ASPART 100 UNITS/ML 3 ML PEN SC SCH ×3 (13:35→21:23)
--- NOTE | 2019-10-03 14:46 | Emergency Department Note ---
Entered by Jose Segovia acting as a scribe for History of Present Illness General Chief complaint: Shortness of Breath/Dyspnea Time Seen by Provider: 10/03/19 09:11 Source: patient History of Present Illness Provider complaint: Shortness of breath Onset (ago): week(s) 1 Location: chest Severity: similar to prior episodes Pain Consistency: + constant and + other (Worsening) Maximum Pain Intensity: 5 Current Pain Intensity: 5 Relieved By: + none Associated symptoms: + chest pain and + shortness of breath; no fever/chills The patient is an 79 year old female who presents to the Emergency Room with complaints of constant shortness of breath that started slightly over a week ago but became acutely worse in the past 24 hours. The patient also has chest pain that she rates a 5/10, per the nurse. The patient states that she was supposed to have a cardiac cath done yesterday but it was cancelled due to insurance reasons. The patient reports that the cath was scheduled by Dr. Iriazrry after the patient had an echo done with him that showed a potential blockage. The patient was put on CPAP by EMS and received 1 inch of Nitro paste with only minimal relief. The patient states she took a double dose of her diuretic this morning because she has noticed a recent weight gain but she has not taken her blood p ressure medication. Home Medications Home Medications Medication Instructions Recorded Confirmed Type digoxin 0.125 mg PO 3XWK 11/14/18 10/03/19 History amiodarone 200 mg tablet 200 mg PO QPM #90 tab 04/01/19 10/03/19 Rx garlic 1,000 mg capsule 1,000 mg PO QAM #30 cap 04/01/19 10/03/19 Rx magnesium oxide 400 mg (as 400 mg PO QPM #90 cap 04/01/19 10/03/19 Rx magnesium oxide) capsule vitamin E 400 unit capsule 400 unit PO DAILY #90 cap 04/01/19 10/03/19 Rx multivitamin 1 tab PO DAILY 05/19/19 10/03/19 History potassium chloride 20 mEq 20 meq PO BID tab 05/19/19 10/03/19 History tablet,extended release levothyroxine 75 mcg tablet 75 mcg PO DAILY #90 tab 05/21/19 10/03/19 Rx cholecalciferol (vitamin D3) 25 1,000 units PO DAILY 06/06/19 10/03/19 History mcg (1,000 unit) capsule trazodone 50 mg tablet 50 mg PO DAILY 06/06/19 10/03/19 History albuterol sulfate 90 mcg/actuation 2 puff INHALATION Q6H PRN #8 gm 06/11/19 10/03/19 Rx aerosol inhaler clopidogrel 75 mg tablet 75 mg PO QPM #90 tab 06/20/19 10/03/19 Rx apixaban 2.5 mg tablet 2.5 mg PO BID 08/26/19 10/03/19 History carvedilol 6.25 mg tablet 9.375 mg PO BID #90 tab 08/26/19 10/03/19 Rx bumetanide 1 mg tablet 1 mg PO BID #90 tab 09/09/19 10/03/19 Rx ranolazine 1,000 mg 1,000 mg PO BID #180 tab 09/27/19 10/03/19 Rx tablet,extended release,12 hr blood sugar diagnostic 1 strip MISCELLANEOUS TID #100 ea 09/30/19 Rx insulin aspar prt-insulin aspart 50 units SUBCUT AMPM #30 ml 09/30/19 10/03/19 Rx 100 unit/mL (70-30) subcutaneous soln insulin syringe-needle U-100 0.3 See Rx Instructions .ROUTE 09/30/19 Rx mL 31 gauge x 02/28" .COMPLEX #100 unspecified pantoprazole 40 mg PO DAILY PRN 10/03/19 10/03/19 History Allergies Allergy/AdvReac Type Severity Reaction Status Date / Time adhesive Allergy Unknown REDNESS Verified 10/03/19 10:54 AND IRRITATION FROM PAIN PATCH, TAPE dulaglutide [From Trulicity] Allergy Unknown Unknown Verified 10/03/19 10:54 glipizide Allergy Unknown Unknown Verified 10/03/19 10:54 latex Allergy Unknown ALLERGIC Verified 10/03/19 10:54 TO LATEX TAPE/RASH/ITCHING morphine Allergy Unknown swelling Verified 10/03/19 10:54 nausea vomiting olmesartan Allergy Unknown UNKNOWN Verified 10/03/19 10:54 exenatide [From Byetta] Allergy Unknown Verified 10/03/19 10:54 glyburide Allergy Unknown Verified 10/03/19 10:54 metformin Allergy Unknown Verified 10/03/19 10:54 sitagliptin [From Januvia] Allergy Unknown Verified 10/03/19 10:54 aspirin AdvReac Mild GI SYMPTOMS Verified 09/27/19 10:04 ezetimibe AdvReac Mild MUSCLE Verified 09/27/19 10:04 ACHES lisinopril AdvReac Unknown LIGHTHEADED Verified 10/03/19 10:54 AND DIZZY pioglitazone AdvReac Unknown DIARRHEA Verified 10/03/19 10:54 NAUSEA Mumrjkj-Jqt-Zkj Reductase AdvReac Unknown myalgias Verified 10/03/19 10:54 Inhibitor and weakness benzonatate AdvReac confusion Verified 09/27/19 10:04 [From Giovanni Brennan] statins Allergy Unknown Unknown Uncoded 10/03/19 10:54 Past Med/Surg History Medical History Angina pectoris (Acute) Atrial flutter Bilateral carotid artery stenosis CKD (chronic kidney disease), stage III DM II (diabetes mellitus, type II), controlled GERD (gastroesophageal reflux disease) HLD (hyperlipidemia) HTN (hypertension) Hypothyroid Hypothyroidism Left bundle branch block Morbid obesity Occlusion and stenosis of unspecified carotid artery (Acute) PAD (peripheral artery disease) (Acute) Postmenopausal status (Acute) Spondylosis (Acute) Surgical History Pacemaker Presence of stent in LAD coronary artery Family History Daughter Coronary heart disease Mother Diabetes Family history of hypercholesterolemia Brother Colorectal cancer Other Pacemaker Social History Preferred Language: Sami Communication Ability: Effective Waste Minimization Technician Required: No Beliefs That Will Affect Care: None Current Living Situation: Alone Feels Safe at Home: Yes Smoking Status: Never smoker Second Hand Exposure: No ; Hx Alcohol Use: No Hx Substance Use: No Seatbelt Use: always Review of Systems See HPI for pertinent positives & negatives. and A total of 10 systems reviewed and were otherwise negative Physical Exam Vital Signs Vital Signs - 24 hr 10/03/19 08:44 10/03/19 08:52 10/03/19 08:58 Temperature 36.7 C Temperature Source Oral Pulse Rate 84 85 84 Pulse Rate from SpO2 Sensor 85 Pulse Rhythm Regular Pulse Strength Normal Respiratory Rate 24 25 H 26 H Respiratory Effort / Characteristics Spontaneous Short of Breath Respiratory Depth Shallow Respiratory Pattern Tachypnea Blood Pressure 238/135 H 238/135 H Blood Pressure Mean 143 169 Blood Pressure Position Sitting Pulse Oximetry 98 97 98 Oxygen Delivery Method Nasal CPAP Nasal CPAP Oxygen Flow Rate 30 30 Fraction of Inspired Oxygen 30 Sepsis Recent Fever Within 48 Hours No Sepsis Action Taken by Nursing No Action Required 10/03/19 09:01 10/03/19 09:06 10/03/19 09:16 Temperature Temperature Source Pulse Rate 81 82 Pulse Rate from SpO2 Sensor 81 82 Pulse Rhythm Pulse Strength Respiratory Rate 26 H 20 Respiratory Effort / Characteristics Respiratory Depth Respiratory Pattern Blood Pressure 210/125 H 194/112 H Blood Pressure Mean 156 117 Blood Pressure Position Pulse Oximetry 98 98 97 Oxygen Delivery Method Nasal CPAP Oxygen Flow Rate 30 30 Fraction of Inspired Oxygen Sepsis Recent Fever Within 48 Hours Sepsis Action Taken by Nursing 10/03/19 09:31 10/03/19 09:49 10/03/19 10:00 Temperature Temperature Source Pulse Rate 78 71 71 Pulse Rate from SpO2 Sensor 78 71 71 Pulse Rhythm Pulse Strength Respiratory Rate 29 H 21 25 H Respiratory Effort / Characteristics Respiratory Depth Respiratory Pattern Blood Pressure 194/113 H 196/112 H 204/101 H Blood Pressure Mean 145 120 153 Blood Pressure Position Pulse Oximetry 97 97 98 Oxygen Delivery Method CPAP CPAP Oxygen Flow Rate 30 30 30 Fraction of Inspired Oxygen Sepsis Recent Fever Within 48 Hours Sepsis Action Taken by Nursing 10/03/19 10:15 10/03/19 10:16 10/03/19 10:30 Temperature Temperature Source Pulse Rate 82 78 70 Pulse Rate from SpO2 Sensor 85 78 70 Pulse Rhythm Pulse Strength Respiratory Rate 24 22 19 Respiratory Effort / Characteristics Respiratory Depth Respiratory Pattern Blood Pressure 175/119 H Blood Pressure Mean 128 Blood Pressure Position Pulse Oximetry 90 96 Oxygen Delivery Method Oxygen Flow Rate Fraction of Inspired Oxygen Sepsis Recent Fever Within 48 Hours Sepsis Action Taken by Nursing 10/03/19 10:31 10/03/19 10:45 10/03/19 10:46 Temperature Temperature Source Pulse Rate 73 68 70 Pulse Rate from SpO2 Sensor 72 73 69 Pulse Rhythm Pulse Strength Respiratory Rate 18 23 21 Respiratory Effort / Characteristics Respiratory Depth Respiratory Pattern Blood Pressure 198/113 H 181/119 H Blood Pressure Mean 131 127 Blood Pressure Position Pulse Oximetry 96 95 96 Oxygen Delivery Method Oxygen Flow Rate Fraction of Inspired Oxygen Sepsis Recent Fever Within 48 Hours Sepsis Action Taken by Nursing 10/03/19 11:00 10/03/19 11:01 Temperature Temperature Source Pulse Rate 67 67 Pulse Rate from SpO2 Sensor 67 68 Pulse Rhythm Pulse Strength Respiratory Rate 17 16 Respiratory Effort / Characteristics Respiratory Depth Respiratory Pattern Blood Pressure 189/132 H Blood Pressure Mean 148 Blood Pressure Position Pulse Oximetry 94 95 Oxygen Delivery Method Oxygen Flow Rate Fraction of Inspired Oxygen Sepsis Recent Fever Within 48 Hours Sepsis Action Taken by Nursing GENERAL: Patient is in mild distress on BiPAP. HEENT: No acute trauma, normocephalic atraumatic, mucous membranes moist, no nasal congestion, no scleral icterus. NECK: No stridor, no adenopathy, no meningismus, trachea is midline. LUNGS: Crackles at the bilateral bases. No wheezing. No significant respiratory distress. Breath sounds equal. HEART: Unable to hear cardiac tones secondary to the BiPAP machine. ABDOMEN: Soft, nontender, bowel sounds positive, no hernias, no peritonitis. EXTREMITIES: No cyanosis, full range of motion of all the joints without pain or difficulty, no signs for acute trauma. NEUROLOGIC: Oriented x 3, no acute motor or sensory deficits, no focal weakness. SKIN: No rash, no jaundice, no diaphoresis. Course Course 0916: Past medical records reviewed. The patient was evaluated in room B02, and a complete history and physical examination were performed. 0955: I reevaluated the patient and she is complaining of more chest pain that is reproducible upon reexamination. I ordered a repeat EKG and cardiology has been paged. 1011: I spoke to Dr. Kim Barron Cardiology about the patient's case. He is going to come evaluated the patient. He also stated that he is not in favor of sending the patient to the [facility] unless it is an acute NH given. 1046: I reevaluated the patient and she is resting comfortably. I also updated her on test results. 1050: I spoke to Dr. Silke Barron [facility] Hospitalist about the patient's case. She agreed to accept the patient for further evaluation. 1135: I updated Dr. Alvarez on the patient's case and discussed her plan further. Consultations Consultation #1: I spoke to Dr. Kim Barron Cardiology about the patient's case. He is going to come evaluated the patient. He also stated that he is not in favor of sending the patient to the [facility] unless it is an acute NH. Time: 10:11 Consultation #2: I spoke to [facility]. [facility] about the patient's case. She agreed to accept the patient for further evaluation. Time: 10:50 Administered Medications Insulin Aspart (Novolog Flexpen) 0 units [facility]; Protocol Stop: 11/02/19 12:44 Last Admin: 10/03/19 13:35 Dose: 2 units Documented by: [id number] Cosigned by: [id number] Discontinued Medications Aspirin (Aspirin) 324 mg PO NOW STA Stop: 10/03/19 09:23 Last Admin: 10/03/19 09:40 Dose: Not Given Documented by: [id number] Hydralazine HCl (Hydralazine Hcl) 10 mg IV NOW STA Stop: 10/03/19 10:42 Last Admin: 10/03/19 10:47 Dose: 10 mg Documented by: [id number] Hydromorphone HCl (Dilaudid) 0.5 mg IV NOW STA Stop: 10/03/19 09:56 Last Admin: 10/03/19 10:01 Dose: 0.5 mg Documented by: [id number] Bumetanide 1 mg/ Syringe 4 mls @ 4 mls/min IV NOW STA Stop: 10/03/19 09:46 Last Admin: 10/03/19 10:22 Dose: 4 mls/min Documented by: [id number] Nitroglycerin (Nitro-Bid 2%) 3 inch EXT NOW STA Stop: 10/03/19 09:22 Last Admin: 10/03/19 09:28 Dose: Not Given Documented by: [id number] Nitroglycerin (Nitro-Bid 2%) Confirm Administered Dose 54 inch .ROUTE .STK-MED ONE Stop: 10/03/19 09:24 Last Admin: 10/03/19 09:27 Dose: 3 inch Documented by: [id number] Ondansetron HCl (Zofran) 4 mg IV NOW STA Stop: 10/03/19 09:56 Last Admin: 10/03/19 10:01 Dose: 4 mg Documented by: [id number] Critical Care Time Critical Care Time: Yes Total Critical Care Time: 38 I have personally spent greater than 38 minutes of critical care time in the direct management of this patient. This includes bedside care, interpretation of diagnostic studies, and testing, discussion with consultants, patient, and family members, and other required patient management activities. This 38 minutes is in excess of all separately billable procedures. Medical Decision Making Differential Diagnosis Differential Diagnosis includes: CHF, NH, cardiac ischemia, anemia, pneumonia, e lectrolyte imbalance, renal failure, and bronchitis, amongst others. Medical Records Attestation: I reviewed the patient's medical records. Home Medications Current Medication List: was personally reviewed by me Laboratory Data Attestation: I reviewed the patient's lab results. Result diagrams: 10/03/19 09:34 10/03/19 09:34 Lab Results 10/03/19 10/03/19 10/03/19 Range/Units 09:34 09:34 09:34 WBC 11.11 H (4.8-10.8) K/uL RBC 4.24 (4.2-5.4) M/uL Hgb 14.3 (12.0-16.0) g/dL Hct 43.3 (37-47) % MCV 102.1 H (80-100) fL MCH 33.7 (25-34) pg MCHC 33.0 (32-36) g/dL RDW Std Deviation 50.4 H (36.4-46.3) fL RDW Coeff of Maunela 13.5 (11.5-14.5) % Plt Count 319 (130-400) K/uL MPV 10.4 (7.4-10.4) fL Immature Gran % (Auto) 0.2 % Neut % (Auto) 77.6 % Lymph % (Auto) 13.0 % Sumner % (Auto) 6.5 % Eos % (Auto) 2.3 % Baso % (Auto) 0.4 % Immature Gran # (Auto) 0.02 (0.00-0.02) K/uL Neut # (Auto) 8.64 H (1.4-6.5) K/uL Lymph # (Auto) 1.44 (1.2-3.4) K/uL Sumner # (Auto) 0.72 H (0.11-0.59) K/uL Eos # (Auto) 0.25 (0-0.5) K/uL Baso # (Auto) 0.04 (0-0.2) K/uL PT 10.5 (9.0-12.0) Seconds INR 1.0 (0.9-1.1) APTT 24.8 (21.0-31.0) Seconds PTT Ratio 0.9 Sodium 135 L (136-145) mmol/L Potassium 4.2 (3.5-5.1) mmol/L Chloride 103 (98-107) mmol/L Carbon Dioxide 27 (21-32) mmol/L Anion Gap 5.0 (3-11) BUN 29 H (7-18) mg/dl Creatinine 1.86 H (0.6-1.2) mg/dl Est Cr Clr Drug Dosing 27.6 ml/min Est GFR ( Amer) 29.1 Est GFR (Non-Af Amer) 25.1 BUN/Creatinine Ratio 15.5 (10-20) Glucose 231 H (70-99) mg/dl Calcium 8.8 (8.5-10.1) mg/dl Magnesium 2.2 (1.8-2.4) mg/dl Total Bilirubin 0.5 (0.2-1) mg/dl AST 22 (15-37) U/L ALT 27 (12-78) U/L Alkaline Phosphatase 121 H (45-117) U/L Troponin I < 0.015 (0-0.045) ng/ml NT-Pro-B Natriuret Pep 3048 H (0-1800) pg/ml Total Protein 7.7 (6.4-8.2) gm/dl Albumin 3.3 L (3.4-5.0) gm/dl Globulin 4.4 H (2.5-4.0) gm/dl Albumin/Globulin Ratio 0.7 L (0.9-2) Digoxin (0.8-2.0) ng/ml 10/03/19 Range/Units 09:34 WBC (4.8-10.8) K/uL RBC (4.2-5.4) M/uL Hgb (12.0-16.0) g/dL Hct (37-47) % MCV (80-100) fL MCH (25-34) pg MCHC (32-36) g/dL RDW Std Deviation (36.4-46.3) fL RDW Coeff of Manuela (11.5-14.5) % Plt Count (130-400) K/uL MPV (7.4-10.4) fL Immature Gran % (Auto) % Neut % (Auto) % Lymph % (Auto) % Sumner % (Auto) % Eos % (Auto) % Baso % (Auto) % Immature Gran # (Auto) (0.00-0.02) K/uL Neut # (Auto) (1.4-6.5) K/uL Lymph # (Auto) (1.2-3.4) K/uL Sumner # (Auto) (0.11-0.59) K/uL Eos # (Auto) (0-0.5) K/uL Baso # (Auto) (0-0.2) K/uL PT (9.0-12.0) Seconds INR (0.9-1.1) APTT (21.0-31.0) Seconds PTT Ratio Sodium (136-145) mmol/L Potassium (3.5-5.1) mmol/L Chloride (98-107) mmol/L Carbon Dioxide (21-32) mmol/L Anion Gap (3-11) BUN (7-18) mg/dl Creatinine (0.6-1.2) mg/dl Est Cr Clr Drug Dosing ml/min Est GFR ( Amer) Est GFR (Non-Af Amer) BUN/Creatinine Ratio (10-20) Glucose (70-99) mg/dl Calcium (8.5-10.1) mg/dl Magnesium (1.8-2.4) mg/dl Total Bilirubin (0.2-1) mg/dl AST (15-37) U/L ALT (12-78) U/L Alkaline Phosphatase (45-117) U/L Troponin I (0-0.045) ng/ml NT-Pro-B Natriuret Pep (0-1800) pg/ml Total Protein (6.4-8.2) gm/dl Albumin (3.4-5.0) gm/dl Globulin (2.5-4.0) gm/dl Albumin/Globulin Ratio (0.9-2) Digoxin 1.2 (0.8-2.0) ng/ml Imaging Data Radiologist's Impression: Radiology results as stated below per my review and the radiologist's interpretation: XR chest 1V portable CLINICAL HISTORY: Shortness of breath. COMPARISON STUDY: Chest radiograph June 05, 2019. FINDINGS: A left subclavian pacemaker is in place. There is no pneumothorax. Small right and trace left pleural effusions are noted. Pulmonary edema has developed since prior exam. There are bibasilar opacities. Widening of the right paratracheal stripe is unchanged and due to normal vessels. IMPRESSION: 1. Interval development of pulmonary edema. 2. Small right and trace left pleural effusions with bibasilar opacities. ACT 112: Negative or not required by law. Electronically signed by: Cali Jacobo M.D. 10/03/2019 9:43 AM ECG Data Attestation: I personally reviewed and interpreted this ECG as follows: Indication: + SOB/dyspnea Rate (beats per minute): 86 Rhythm: + other (Atrial paced) ECG Intervals/blocks: + Left bundle branch block ECG Findings: + Other (QTC of 497); no PVCs Comparison ECG Date: from (June 12, 2019) Change: no significant change Additional Comments: REPEAT EKG Atrial Paced rhythm, rate of 71bpm, LBBB noted, no concerning ST elevation, no PVCs, QTC of 465. Blood Pressure Blood Pressure Findings: Elevated blood pressure Blood Pressure Disposition: further management by hospitalist [facility] Narrative There is a mild leukocytosis, this could be consistent with infection or the stress of her presentation. No worrisome anemia. No coagulopathy. Renal panel testing shows a creatinine of 1.86, this is about baseline for the patient. No worrisome liver enzyme elevation. BNP is elevated consistent with fluid overload. Chest film does show CHF, no pneumonia. EKG shows an atrial pacemaker with a left bundle branch block, no evidence for acute NH. Cardiac enzyme testing x1 is not consistent with acute cardiac injury. Digoxin level is therapeutic at 1.2. The patient was maintained on BiPAP given the heart failure and dyspnea. She did well with this machine. She was given a dose of IV Bumex, 1 mg. She was given 3 inches of nitroglycerin paste. She received a dose of 10 mg of IV hydralazine. She received IV Dilaudid for pain, IV Zofran for nausea. She was ordered for aspirin but refused this medication as it causes GI upset. I did speak with cardiology. They did not feel the patient required an emergent cardiac catheterization. The patient is to be hospitalized and diuresed. I did speak to case management, I talked to the patient at length. The on-call hospitalist has been consulted. Of note, the patient had a few EKGs while here in the ED, the EKGs remained unchanged during her stay. No acute ischemic findings by EKG. Impression & Plan CHF (congestive heart failure), Hypertension, SOB (shortness of breath), Chest pain, precordial Discharge Plan Visit Data *Final* Discharge Date/Time: 10/03/19 11:54 Chief Complaint: Shortness of Breath/Dyspnea ED Provider: Marcus Huerta Discharge Problem: CHF (congestive heart failure), Hypertension, SOB (shortness of breath), Chest pain, precordial Patient Disposition: Admitted As Inpatient Discharge Instructions Interventions: ED Discharge Assessment Last Done: 10/03/19 11:54 Discharge Problem: CHF (congestive heart failure) Qualifiers: Heart failure type: unspecified Heart failure chronicity: acute Qualified Code(s): I50.9 - Heart failure, unspecified Hypertension Qualifiers: Hypertension type: unspecified Qualified Code(s): I10 - Essential (primary) hypertension The scribe's documentation has been prepared under my direction and personally reviewed by me in its entirety. I confirm that the note above accurately reflects all work, treatment, procedures, and medical decision making performed by me.
--- NOTE | 2019-10-03 15:37 | Pharmacy Report ---
Pharmacy Glycemic Short Note 2 - Date of Service October 03, 2019 - Glycemic Short BSG Results (Last 24 hours): 10/03/19 10/03/19 09:34 13:34 Glucose 231 H POC Glucose 182 H OUTPATIENT ANTIDIABETIC REGIMEN: * 70/30 20 units AM, 30 units PM * A1c 6.4% 08/27/19 ASSESSMENT: * Patient admitted with acute CHF + chest pain * Patient did not have her morning dose of 70/30, BSG was 231 on admission, but down to 182 at lunch * Will utilize NPH + novolog for inpatient regimen, NPH scale with dinner * Novolog parameters based on outpatient dose and weight based are the same CF/CR /, however on past admission patient did well with looser CR- therefore will start with 09/08 * NPH dose scaled up to ~70% of home dose PLAN FOR INPATIENT GLYCEMIC CONTROL: * Hold outpatient oral diabetes medications * Basal insulin * NPH 10 units BSG <140, 15 units BSG 140 mg/dL or greater * Bolus insulin * NovoLog per scale ACHS or Q6hrs while NPO * Goal Range: Low 110 mg/dL - High 150 mg/dL * Correction Factor: 25 mg/dL/unit * Nutritional / Prandial insulin per carb ratio of 1 unit per 10 grams CHO consumed
[2019-10-03] MEDS: BUMETANIDE 1 MG in SYRINGE 0 ML IV SCH (17:52)
[2019-10-03] MEDS: HumuLIN N 10 ML VIAL SC SCH (17:55)
--- NOTE | 2019-10-03 18:47 | Nephrology Consultation ---
Date of Consultation October 03, 2019 Assessment & Plan (1) Acute on chronic combined systolic and diastolic CHF (congestive heart failure): Ongoing evaluation for acute coronary syndrome. Tolerating allergy consultation reviewed. Symptoms improving. Accelerated hypertension responding to current therapy. Presentation complicated by notable valvular heart disease including moderate to severe aortic stenosis. She appears to have adequate urine output in response to IV Bumex 1 milligram which was provided in the emergency department. Input and output would be accurately documented. Daily weights will be monitored. Patient's medications are appropriate for kidney dyfunction (2) CKD (chronic kidney disease), stage III: Creatinine appears to be relatively stable at baseline. This will be closely monitored. She has not had significant proteinuria by history. Her electrolytes are acceptable. She is nonoliguric. The staging classification of chronic kidney disease was reviewed. We discussed acute kidney injury. We discussed appropriate risk factor modification. We discussed the risks associated with acute kidney injury. Patient expressed understanding. There is certainly no indication for renal replacement therapies at this time. Close perspective monitoring will be provided. History of Present Illness Reason for Consultation: CKD Requesting Physician: Ariel Edouard MD Attending Physician: Ariel Edouard MD History of Present Illness Ban Barry is an 79-year-old female with CKD III. Ban states that she has never been previously evaluated by a hospice admitting clerk. Baseline creatinine has been approximately 1.6-1.8 mg/dL. Urine sediment benign. Prior renal imaging includes a renal artery duplex obtained in 2018. There is no evidence of renal artery stenosis. There was moderate left cortical scarring present. The left kidney measured 7.6 centimeters in the right kidney 9.8 centimeters. The patient's medical history is notable for extensive coronary artery disease, paroxysmal atrial flutter anticoagulated with apixaban, morbid obesity, hyperlipidemia, hypertension, chronic systolic congestive heart failure, mitral regurgitation, moderate to severe aortic stenosis, and diabetes mellitus type 2. She presented to the ER today with dyspnea and chest pain. Evaluation notable for acute on chronic congestive heart failure. The patient had accelerated hypertension on admission. She was told that coronary angiography will be planned for tomorrow. Blood pressure is improving. She is non-oliguric and symptoms of chest pain has resolved at this time. Allergies Allergy/AdvReac Type Severity Reaction Status Date / Time adhesive Allergy Unknown REDNESS Verified 10/03/19 10:54 AND IRRITATION FROM PAIN PATCH, TAPE dulaglutide [From Trulicity] Allergy Unknown Unknown Verified 10/03/19 10:54 glipizide Allergy Unknown Unknown Verified 10/03/19 10:54 latex Allergy Unknown ALLERGIC Verified 10/03/19 10:54 TO LATEX TAPE/RASH/ITCHING morphine Allergy Unknown swelling Verified 10/03/19 10:54 nausea vomiting olmesartan Allergy Unknown UNKNOWN Verified 10/03/19 10:54 exenatide [From Byetta] Allergy Unknown Verified 10/03/19 10:54 glyburide Allergy Unknown Verified 10/03/19 10:54 metformin Allergy Unknown Verified 10/03/19 10:54 sitagliptin [From Januvia] Allergy Unknown Verified 10/03/19 10:54 aspirin AdvReac Mild GI SYMPTOMS Verified 09/27/19 10:04 ezetimibe AdvReac Mild MUSCLE Verified 09/27/19 10:04 ACHES lisinopril AdvReac Unknown LIGHTHEADED Verified 10/03/19 10:54 AND DIZZY pioglitazone AdvReac Unknown DIARRHEA Verified 10/03/19 10:54 NAUSEA Vytbubc-Tjn-Ecc Reductase AdvReac Unknown myalgias Verified 10/03/19 10:54 Inhibitor and weakness benzonatate AdvReac confusion Verified 09/27/19 10:04 [From Giovanni Brennan] statins Allergy Unknown Unknown Uncoded 10/03/19 10:54 Home Medications Home Medications Medication Instructions Recorded Confirmed Type digoxin 0.125 mg PO [id number] 11/14/18 10/03/19 History amiodarone 200 mg tablet 200 mg PO QPM #90 tab 04/01/19 10/03/19 Rx garlic 1,000 mg capsule 1,000 mg PO QAM #30 cap 04/01/19 10/03/19 Rx magnesium oxide 400 mg (as 400 mg PO QPM #90 cap 04/01/19 10/03/19 Rx magnesium oxide) capsule vitamin E 400 unit capsule 400 unit PO DAILY #90 cap 04/01/19 10/03/19 Rx multivitamin 1 tab PO DAILY 05/19/19 10/03/19 History potassium chloride 20 mEq 20 meq PO BID tab 05/19/19 10/03/19 History tablet,extended release levothyroxine 75 mcg tablet 75 mcg PO DAILY #90 tab 05/21/19 10/03/19 Rx cholecalciferol (vitamin D3) 25 1,000 units PO DAILY 06/06/19 10/03/19 History mcg (1,000 unit) capsule trazodone 50 mg tablet 50 mg PO DAILY 06/06/19 10/03/19 History albuterol sulfate 90 mcg/actuation 2 puff INHALATION Q6H PRN #8 gm 06/11/19 10/03/19 Rx aerosol inhaler clopidogrel 75 mg tablet 75 mg PO QPM #90 tab 06/20/19 10/03/19 Rx apixaban 2.5 mg tablet 2.5 mg PO BID 08/26/19 10/03/19 History carvedilol 6.25 mg tablet 9.375 mg PO BID #90 tab 08/26/19 10/03/19 Rx bumetanide 1 mg tablet 1 mg PO BID #90 tab 09/09/19 10/03/19 Rx ranolazine 1,000 mg 1,000 mg PO BID #180 tab 09/27/19 10/03/19 Rx tablet,extended release,12 hr blood sugar diagnostic 1 strip MISCELLANEOUS TID #100 ea 09/30/19 Rx insulin aspar prt-insulin aspart 50 units SUBCUT AMPM #30 ml 09/30/19 10/03/19 Rx 100 unit/mL (70-30) subcutaneous soln insulin syringe-needle U-100 0.3 See Rx Instructions .ROUTE 09/30/19 Rx mL 31 gauge x 02/28" .COMPLEX #100 unspecified pantoprazole 40 mg PO DAILY PRN 10/03/19 10/03/19 History Patient History Medical History Angina pectoris (Acute) Atrial flutter Bilateral carotid artery stenosis CKD (chronic kidney disease), stage III DM II (diabetes mellitus, type II), controlled GERD (gastroesophageal reflux disease) HLD (hyperlipidemia) HTN (hypertension) Hypothyroid Hypothyroidism Left bundle branch block Morbid obesity Occlusion and stenosis of unspecified carotid artery (Acute) PAD (peripheral artery disease) (Acute) Postmenopausal status (Acute) Spondylosis (Acute) Surgical History Pacemaker Presence of stent in LAD coronary artery Family History Daughter Coronary heart disease Mother Diabetes Family history of hypercholesterolemia Brother Colorectal cancer Other Pacemaker Social History Preferred Language: Croatian Communication Ability: Effective Medical Aide Required: No Beliefs That Will Affect Care: None Current Living Situation: Alone Feels Safe at Home: Yes Smoking Status: Never smoker Second Hand Exposure: No ; Hx Alcohol Use: No Hx Substance Use: No Seatbelt Use: always Review of Systems Review of Systems: All systems reviewed & are unremarkable except as noted in HPI & below Physical Exam Constitutional: + obese and + frail appearing; no acute distress Eyes: + anicteric sclerae; no corneal abnormality ENMT: Mouth: no oral mucosal abnormality and oral mucous membranes not dry Neck: normal visual inspection and trachea midline Respiratory: normal respiratory effort Auscultation: lungs clear to auscultation bilaterally and + rales Cardiovascular: Rate/Rhythm: regular rate Heart Sounds: normal S1 and normal S2 Vessels: + JVD Extremities: + edema Gastrointestinal (Abdomen): Percussion/Palpation: abdomen soft; abdomen nontender Musculoskeletal: Extremities: no cyanosis and no clubbing Skin: normal turgor; no lesions Neurologic: Motor/Sensory: no tremor and no asterixis Psychiatric: Orientation: alert and oriented x 3 Results & Data Vital Signs (Past 12 Hours) Vital Signs Temp Pulse Pulse Resp BP BP Pulse Ox 10/03/19 15:55 36.6 C 66 18 152/86 H 95 10/03/19 15:49 36.5 C 66 20 162/89 H 94 10/03/19 12:07 36.6 C 69 20 165/84 H 96 10/03/19 12:06 81 22 95 10/03/19 11:46 64 17 188/83 H 95 10/03/19 11:34 66 20 96 10/03/19 11:30 63 16 169/93 H 93 10/03/19 11:15 66 23 164/103 H 95 10/03/19 11:01 67 16 95 10/03/19 11:00 67 17 189/132 H 94 10/03/19 10:46 70 21 96 10/03/19 10:45 68 23 181/119 H 95 10/03/19 10:31 73 18 198/113 H 96 10/03/19 10:30 70 19 10/03/19 10:16 78 22 175/119 H 96 10/03/19 10:15 82 24 90 10/03/19 10:00 71 25 H 204/101 H 98 10/03/19 09:49 71 21 196/112 H 97 10/03/19 09:31 78 29 H 194/113 H 97 10/03/19 09:16 82 20 194/112 H 97 10/03/19 09:06 98 10/03/19 09:01 81 26 H 210/125 H 98 10/03/19 08:58 36.7 C 84 26 H 238/135 H 98 10/03/19 08:52 85 25 H 238/135 H 97 10/03/19 08:44 84 24 98 Laboratory Results Laboratory Results - last 24 hr 10/03/19 10/03/19 10/03/19 09:34 09:34 09:34 WBC 11.11 H RBC 4.24 Hgb 14.3 Hct 43.3 MCV 102.1 H MCH 33.7 MCHC 33.0 RDW Std Deviation 50.4 H RDW Coeff of Manuela 13.5 Plt Count 319 MPV 10.4 Immature Gran % (Auto) 0.2 Neut % (Auto) 77.6 Lymph % (Auto) 13.0 Scott % (Auto) 6.5 Eos % (Auto) 2.3 Baso % (Auto) 0.4 Immature Gran # (Auto) 0.02 Neut # (Auto) 8.64 H Lymph # (Auto) 1.44 Scott # (Auto) 0.72 H Eos # (Auto) 0.25 Baso # (Auto) 0.04 PT 10.5 INR 1.0 APTT 24.8 PTT Ratio 0.9 Sodium 135 L Potassium 4.2 Chloride 103 Carbon Dioxide 27 Anion Gap 5.0 BUN 29 H Creatinine 1.86 H Est Cr Clr Drug Dosing 27.6 Est GFR ( Amer) 29.1 Est GFR (Non-Af Amer) 25.1 BUN/Creatinine Ratio 15.5 Glucose 231 H POC Glucose Calcium 8.8 Magnesium 2.2 Total Bilirubin 0.5 AST 22 ALT 27 Alkaline Phosphatase 121 H Troponin I < 0.015 NT-Pro-B Natriuret Pep 3048 H Total Protein 7.7 Albumin 3.3 L Globulin 4.4 H Albumin/Globulin Ratio 0.7 L Procalcitonin Digoxin 10/03/19 10/03/19 10/03/19 09:34 13:34 14:16 WBC RBC Hgb Hct MCV MCH MCHC RDW Std Deviation RDW Coeff of Manuela Plt Count MPV Immature Gran % (Auto) Neut % (Auto) Lymph % (Auto) [place] % (Auto) Eos % (Auto) Baso % (Auto) Immature Gran # (Auto) Neut # (Auto) Lymph # (Auto) [place] # (Auto) Eos # (Auto) Baso # (Auto) PT INR APTT PTT Ratio Sodium Potassium Chloride Carbon Dioxide Anion Gap BUN Creatinine Est Cr Clr Drug Dosing Est GFR ( Amer) Est GFR (Non-Af Amer) BUN/Creatinine Ratio Glucose POC Glucose 182 H Calcium Magnesium Total Bilirubin AST ALT Alkaline Phosphatase Troponin I NT-Pro-B Natriuret Pep Total Protein Albumin Globulin Albumin/Globulin Ratio Procalcitonin < 0.05 Digoxin 1.2 10/03/19 10/03/19 16:20 16:34 WBC RBC Hgb Hct MCV MCH MCHC RDW Std Deviation RDW Coeff of Manuela Plt Count MPV Immature Gran % (Auto) Neut % (Auto) Lymph % (Auto) [place] % (Auto) Eos % (Auto) Baso % (Auto) Immature Gran # (Auto) Neut # (Auto) Lymph # (Auto) [place] # (Auto) Eos # (Auto) Baso # (Auto) PT INR APTT PTT Ratio Sodium Potassium Chloride Carbon Dioxide Anion Gap BUN Creatinine Est Cr Clr Drug Dosing Est GFR ( Amer) Est GFR (Non-Af Amer) BUN/Creatinine Ratio Glucose POC Glucose 157 H Calcium Magnesium Total Bilirubin AST ALT Alkaline Phosphatase Troponin I 0.055 H* NT-Pro-B Natriuret Pep Total Protein Albumin Globulin Albumin/Globulin Ratio Procalcitonin Digoxin PG Care Time/CCT Total # of Minutes Spent Total Time Spent with Patient: Total time spent is greater than 50% in coordination of care (as documented) at patient's floor/unit and/or counseling patient:
[2019-10-03] MEDS ORDERED: TRAZODONE HCL 50 MG TAB PO SCH (21:00)
[2019-10-03] MEDS ORDERED: CLOPIDOGREL BISULFATE 75 MG TAB PO SCH (21:00)
[2019-10-03] MEDS ORDERED: MAGNESIUM OXIDE 400 MG TAB PO SCH (21:00)
[2019-10-03] MEDS ORDERED: AMIODARONE 200 MG TAB PO SCH (21:00)
[2019-10-03] MEDS: RANOLAZINE 500 MG ER TAB PO SCH (21:16)
[2019-10-03] MEDS: POTASSIUM CHLORIDE 20 MEQ TABCR PO SCH (21:16)
[2019-10-03] MEDS: carvediloL 6.25 MG TAB PO SCH (21:17)
[2019-10-03] MEDS: APIXABAN 2.5 MG TAB PO SCH (21:18)
[2019-10-04] MEDS ORDERED: LEVOTHYROXINE SODIUM 75 MCG TABLET PO SCH (06:30)
[2019-10-04] MEDS: APIXABAN 2.5 MG TAB PO SCH ×2 (06:51→11:31)
[2019-10-04 07:13] LABS: Basophils # (auto) 0.03 K/uL (0-0.2); Basophils % (auto) 0.4 %; Eosinophils # (auto) 0.21 K/uL (0-0.5); Eosinophils % (auto) 2.6 %; Hemoglobin 12.6 g/dL (12.0-16.0); Immature Granulocytes # (auto) 0.01 K/uL (0.00-0.02); Immature Granulocytes % (auto) 0.1 %; Lymphocytes % (auto) 20.2 %; Mean Corpuscular Hemoglobin 33.1 pg (25-34); Mean Corpuscular Hgb Conc 32.3 g/dL (32-36); Mean Corpuscular Volume 102.4 fL (80-100); Mean Platelet Volume 10.2 fL (7.4-10.4); Monocytes # (auto) 0.83 K/uL (0.11-0.59); Monocytes % (auto) 10.5 %; Neutrophils # (auto) 5.26 K/uL (1.4-6.5); Neutrophils % (auto) 66.2 %; Platelet Count 249 K/uL (130-400); RDW Coefficient of Variation 13.5 % (11.5-14.5); RDW Standard Deviation 50.6 fL (36.4-46.3); Red Blood Count 3.81 M/uL (4.2-5.4); White Blood Count 7.94 K/uL (4.8-10.8)
[2019-10-04 07:22] LABS: Estimated Average Glucose 143 mg/dl; Hemoglobin A1C 6.6 % (4.5-5.6)
[2019-10-04] MEDS: carvediloL 6.25 MG TAB PO SCH (07:25)
[2019-10-04] MEDS: POTASSIUM CHLORIDE 20 MEQ TABCR PO SCH (07:27)
[2019-10-04] MEDS: RANOLAZINE 500 MG ER TAB PO SCH (07:27)
[2019-10-04] MEDS: HumuLIN N 10 ML VIAL SC SCH ×2 (07:30→18:18)
[2019-10-04] MEDS: BUMETANIDE 1 MG in SYRINGE 0 ML IV SCH ×2 (07:30→16:58)
[2019-10-04] MEDS: INSULIN ASPART 100 UNITS/ML 3 ML PEN SC SCH ×3 (07:33→18:16)
[2019-10-04 07:45] LABS: Albumin Level 2.8 gm/dl (3.4-5.0); BUN Creatinine Ratio 17.5 (10-20); Calcium 8.8 mg/dl (8.5-10.1); Creatinine Clr Calc Pharmacy 31.2 ml/min; Est GFR (African American) 34.4; Est GFR (Non-African American) 29.7; Potassium 3.9 mmol/L (3.5-5.1)
--- NOTE | 2019-10-04 07:55 | Pharmacy Report ---
Pharmacy Glycemic Short Note 2 - Date of Service October 04, 2019 - Glycemic Short BSG Results (Last 24 hours): 10/03/19 10/03/19 10/03/19 09:34 13:34 16:20 Glucose 231 H POC Glucose 182 H 157 H 10/03/19 10/04/19 21:22 06:52 Glucose 80 POC Glucose 158 H OUTPATIENT ANTIDIABETIC REGIMEN: * 70/30 20 units AM, 30 units PM * A1c 6.4% 08/27/19 ASSESSMENT: 10/04 * Fasting BSG 80-110 this AM with 15 units NPH on board * Pt is NPO this AM; will greatly scale back NPH dose this AM and reevaluate needs this afternoon if diet resumes * Current Novolog CF and CR are reasonable starting doses, but will scale back correction factor dose based upon prior admission data where it appeared she was prone to overcorrection 10/03 * Patient admitted with acute CHF + chest pain * Patient did not have her morning dose of 70/30, BSG was 231 on admission, but down to 182 at lunch * Will utilize NPH + novolog for inpatient regimen, NPH scale with dinner * Novolog parameters based on outpatient dose and weight based are the same CF/CR /, however on past admission patient did well with looser CR- therefore will start with / * NPH dose scaled up to ~70% of home dose PLAN FOR INPATIENT GLYCEMIC CONTROL: * Hold outpatient oral diabetes medications * Basal insulin * NPH 3 units BSG <140, 6 units BSG 140 mg/dL or greater ---> reevaluate this afternoon * Bolus insulin * NovoLog per scale ACHS or Q6hrs while NPO * Goal Range: Low 110 mg/dL - High 150 mg/dL * Correction Factor: 40 mg/dL/unit * Nutritional / Prandial insulin per carb ratio of 1 unit per 10 grams CHO consumed
[2019-10-04 07:58] LABS: Albumin Globulin Ratio 0.8 (0.9-2); Bilirubin,Total 0.4 mg/dl (0.2-1); Globulin 3.6 gm/dl (2.5-4.0); Thyroid Stimulating Hormone 3.68 uIu/ml (0.300-4.500); Total Protein 6.4 gm/dl (6.4-8.2)
[2019-10-04] MEDS ORDERED: NON-FORMULARY MEDICATION (Garlic 1,000 MG) PO SCH (09:00)
[2019-10-04] MEDS ORDERED: PANTOprazole 40 MG TAB PO SCH (09:00)
[2019-10-04] MEDS ORDERED: CHOLECALCIFEROL 1,000 UNITS TAB PO SCH (09:00)
[2019-10-04] MEDS ORDERED: MULTIVITAMIN TAB PO SCH (09:00)
[2019-10-04] MEDS ORDERED: TRAZODONE HCL 50 MG TAB PO SCH (09:00)
[2019-10-04] MEDS ORDERED: TOCOPHERYL, DL-ALPHA 400 UNITS CAP PO SCH (09:00)
--- NOTE | 2019-10-04 10:18 | Nephrology Progress Note ---
Date of Service October 04, 2019 Assessment & Plan (1) Acute on chronic combined systolic and diastolic CHF (congestive heart failure): Good urine output in response to IV Bumex yesterday. Remains on Bumex 1 mg IV BID. Continue to document I/O's as well as daily weight. (2) CKD (chronic kidney disease), stage III: Creatinine stable. Electrolytes normal. Volume status improving. BP acceptable. Good urine output. Medications are appropriate for kidney function. Repeat metabolic profile tomorrow AM. Subjective No acute events overnight. Ban feels reasonably well this morning. GOMEZ persists. She denies significant orthopnea. No chest pain this AM. No fever or chills. Review of Systems Review of Systems: All systems reviewed & are unremarkable except as noted in HPI & below Physical Exam Constitutional: + obese and + frail appearing; no acute distress Eyes: + anicteric sclerae; no corneal abnormality ENMT: Mouth: no oral mucosal abnormality and oral mucous membranes not dry Neck: normal visual inspection and trachea midline Respiratory: normal respiratory effort Auscultation: lungs clear to auscultation bilaterally and + rales Cardiovascular: Rate/Rhythm: regular rate Heart Sounds: normal S1 and normal S2 Vessels: + JVD Extremities: + edema Gastrointestinal (Abdomen): Percussion/Palpation: abdomen soft; abdomen nontender Musculoskeletal: Extremities: no cyanosis and no clubbing Skin: normal turgor; no lesions Neurologic: Motor/Sensory: no tremor and no asterixis Psychiatric: Orientation: alert and oriented x 3 Results & Data Vital Signs (Past 12 Hours) Vital Signs Temp Pulse Resp BP Pulse Ox Pulse Ox 10/04/19 08:54 95 10/04/19 07:45 36.8 C 76 16 129/63 95 10/04/19 03:32 36.7 C 61 16 119/65 93 10/03/19 23:09 37.0 C 64 16 127/72 94 Laboratory Results Laboratory Results - last 24 hr 10/03/19 10/03/19 10/03/19 09:34 09:34 13:34 WBC RBC Hgb Hct MCV MCH MCHC RDW Std Deviation RDW Coeff of Manuela Plt Count MPV Immature Gran % (Auto) Neut % (Auto) Lymph % (Auto) [place] % (Auto) Eos % (Auto) Baso % (Auto) Immature Gran # (Auto) Neut # (Auto) Lymph # (Auto) [place] # (Auto) Eos # (Auto) Baso # (Auto) Sodium 135 L Potassium 4.2 Chloride 103 Carbon Dioxide 27 Anion Gap 5.0 BUN 29 H Creatinine 1.86 H Est Cr Clr Drug Dosing 27.6 Est GFR ( Amer) 29.1 Est GFR (Non-Af Amer) 25.1 BUN/Creatinine Ratio 15.5 Glucose 231 H POC Glucose 182 H Estimat Average Glucose Hemoglobin A1c Calcium 8.8 Magnesium 2.2 Total Bilirubin 0.5 AST 22 ALT 27 Alkaline Phosphatase 121 H Troponin I < 0.015 NT-Pro-B Natriuret Pep 3048 H Total Protein 7.7 Albumin 3.3 L Globulin 4.4 H Albumin/Globulin Ratio 0.7 L Triglycerides Cholesterol LDL Cholesterol, Calc VLDL Cholesterol, Calc HDL Cholesterol Cholesterol/HDL Ratio Procalcitonin TSH Digoxin 1.2 10/03/19 10/03/19 10/03/19 14:16 16:20 16:34 WBC RBC Hgb Hct MCV MCH MCHC RDW Std Deviation RDW Coeff of Manuela Plt Count MPV Immature Gran % (Auto) Neut % (Auto) Lymph % (Auto) [place] % (Auto) Eos % (Auto) Baso % (Auto) Immature Gran # (Auto) Neut # (Auto) Lymph # (Auto) [place] # (Auto) Eos # (Auto) Baso # (Auto) Sodium Potassium Chloride Carbon Dioxide Anion Gap BUN Creatinine Est Cr Clr Drug Dosing Est GFR ( Amer) Est GFR (Non-Af Amer) BUN/Creatinine Ratio Glucose POC Glucose 157 H Estimat Average Glucose Hemoglobin A1c Calcium Magnesium Total Bilirubin AST ALT Alkaline Phosphatase Troponin I 0.055 H* NT-Pro-B Natriuret Pep Total Protein Albumin Globulin Albumin/Globulin Ratio Triglycerides Cholesterol LDL Cholesterol, Calc VLDL Cholesterol, Calc HDL Cholesterol Cholesterol/HDL Ratio Procalcitonin < 0.05 TSH Digoxin 10/03/19 10/04/19 10/04/19 21:22 06:52 06:52 WBC 7.94 RBC 3.81 L Hgb 12.6 Hct 39.0 MCV 102.4 H MCH 33.1 MCHC 32.3 RDW Std Deviation 50.6 H RDW Coeff of Manuela 13.5 Plt Count 249 MPV 10.2 Immature Gran % (Auto) 0.1 Neut % (Auto) 66.2 Lymph % (Auto) 20.2 [place] % (Auto) 10.5 Eos % (Auto) 2.6 Baso % (Auto) 0.4 Immature Gran # (Auto) 0.01 Neut # (Auto) 5.26 Lymph # (Auto) 1.60 [place] # (Auto) 0.83 H Eos # (Auto) 0.21 Baso # (Auto) 0.03 Sodium 139 Potassium 3.9 Chloride 103 Carbon Dioxide 34 H Anion Gap 2.0 L BUN 28 H Creatinine 1.62 H Est Cr Clr Drug Dosing 31.2 Est GFR ( Amer) 34.4 Est GFR (Non-Af Amer) 29.7 BUN/Creatinine Ratio 17.5 Glucose 80 POC Glucose 158 H Estimat Average Glucose Hemoglobin A1c Calcium 8.8 Magnesium Total Bilirubin 0.4 AST 16 ALT 24 Alkaline Phosphatase 112 Troponin I NT-Pro-B Natriuret Pep 4459 H Total Protein 6.4 Albumin 2.8 L Globulin 3.6 Albumin/Globulin Ratio 0.8 L Triglycerides 154 H Cholesterol 290 H LDL Cholesterol, Calc 210 VLDL Cholesterol, Calc 31 HDL Cholesterol 49 Cholesterol/HDL Ratio 6 Procalcitonin TSH 3.680 Digoxin 10/04/19 06:52 WBC RBC Hgb Hct MCV MCH MCHC RDW Std Deviation RDW Coeff of Manuela Plt Count MPV Immature Gran % (Auto) Neut % (Auto) Lymph % (Auto) [place] % (Auto) Eos % (Auto) Baso % (Auto) Immature Gran # (Auto) Neut # (Auto) Lymph # (Auto) [place] # (Auto) Eos # (Auto) Baso # (Auto) Sodium Potassium Chloride Carbon Dioxide Anion Gap BUN Creatinine Est Cr Clr Drug Dosing Est GFR ( Amer) Est GFR (Non-Af Amer) BUN/Creatinine Ratio Glucose POC Glucose Estimat Average Glucose 143 Hemoglobin A1c 6.6 H Calcium Magnesium Total Bilirubin AST ALT Alkaline Phosphatase Troponin I NT-Pro-B Natriuret Pep Total Protein Albumin Globulin Albumin/Globulin Ratio Triglycerides Cholesterol LDL Cholesterol, Calc VLDL Cholesterol, Calc HDL Cholesterol Cholesterol/HDL Ratio Procalcitonin TSH Digoxin PG Care Time/CCT Total # of Minutes Spent Total Time Spent with Patient: Total time spent is greater than 50% in traffic coordinator rdination of care (as documented) at patient's floor/unit and/or counseling patient:
--- NOTE | 2019-10-04 10:41 | Cardiology Progress Note ---
Date of Service October 04, 2019 Assessment & Plan (1) CHF (congestive heart failure): Her congestive heart failure is improved, I believe she can lay supine for the catheterization today. She has diuresed reasonably well and her kidney function has improved. (2) Chest pain, precordial: She still has had some of her chest discomfort, currently she is not having any but last evening she did. The cause remains unclear, catheterization is planned for today. (3) Cardiomyopathy: She continues to have a cardiomyopathy, on limited echo today her ejection fraction is interpreted as 40 to 45%, similar to a year ago but more than what we obtained in the office recently. It does not seem that worsening ejection fraction has contributed to her current presentation. Subjective She is feeling better today, she has not been very active but has been out of bed somewhat such as to get weighed and has not been very short of breath. She can lay supine in bed. Physical Exam Physical Exam: Constitutional: Alert, cooperative and in mild to moderate distress. HEENT: Unremarkable Neck: No jugular venous distention, carotid pulses are normal and equal bilaterally without bruits. Pulmonary: Decreased breath sounds and rales bilaterally at the bases on auscultation. Cardiac: Regular rhythm with a grade 2/6 crescendo decrescendo murmur at the base, a soft holosystolic murmur at the apex, no gallop or rub. Abdomen: Soft, nontender with normal bowel sounds. Extremities: No edema. Distal pulses intact. Neurologic: No focal findings. Gait was not tested. Skin: No rash, ecchymoses or petechiae. Results & Data Vital Signs (Past 12 Hours) Vital Signs Temp Pulse Resp BP Pulse Ox Pulse Ox 10/04/19 08:54 95 10/04/19 07:45 36.8 C 76 16 129/63 95 10/04/19 03:32 36.7 C 61 16 119/65 93 10/03/19 23:09 37.0 C 64 16 127/72 94 PG Care Time/CCT Total # of Minutes Spent Total Time Spent with Patient: Total time spent is greater than 50% in coordination of care (as documented) at patient's floor/unit and/or counseling patient: (1) CHF (congestive heart failure) Heart failure chronicity: acute Heart failure type: unspecified Qualified Code(s): I50.9 - Heart failure, unspecified
[2019-10-04] MEDS ORDERED: HEPARIN (PORCINE) 1000 UNIT/ML 10 ML (CATH LAB USE ONLY) ONE (11:35)
[2019-10-04] MEDS ORDERED: NiCARDipine HCL INJ 2.5 MG/ML 10 ML AMP ONE (11:35)
[2019-10-04] MEDS ORDERED: fentaNYL citrate 100 MCG/2 ML VIAL ONE (11:36)
[2019-10-04] MEDS ORDERED: MIDAZOLAM HCL 1 MG/ML 2ML VIAL ONE (11:37)
[2019-10-04] MEDS ORDERED: NITROGLYCERIN/D5W 100MCG/ML 20ML SYR ONE (11:37)
[2019-10-04 13:10] LABS: iSTAT Venous Carbon Dioxide 35 mEq/l (24-31)
[2019-10-04 13:10] LABS: iSTAT Arterial Blood Gas HCO3 32 meg/L (19-24); iSTAT Arterial Blood Gas pCO2 50 mmHg (35-46); iSTAT Arterial Blood Gas pH 7.41 (7.35-7.45); iSTAT Arterial Blood Gas pO2 52 mmHg (80-95); iSTAT Carbon Dioxide 33 mEq/l (24-31)
--- NOTE | 2019-10-04 13:45 | Post Anesthesia Assessment ---
Date of Service October 04, 2019 Post Sedation Assessment Vital Signs Temp Pulse Resp BP Pulse Ox Pulse Ox 10/04/19 13:40 60 18 111/67 98 10/04/19 12:00 98.6 F 70 20 110/62 96 10/04/19 08:54 95 10/04/19 07:45 98.2 F 76 16 129/63 95 10/04/19 03:32 98.1 F 61 16 119/65 93 10/03/19 23:09 98.6 F 64 16 127/72 94 10/03/19 19:26 98.6 F 63 20 152/67 H 95 10/03/19 15:55 97.9 F 66 18 152/86 H 95 10/03/19 15:49 97.7 F 66 20 162/89 H 94 Recovery Score Activity: Moves 4 extremities Respiration: Deep Breath/Cough Circulation: +/-20% PreAnes Value Consciousness: Fully Awake Oxygen Saturation: O2 needed for >90% Discharge Sedation Level of Care: Fast Track Phase II Post Sedation Plan On clinical assessment, the patient appears to have tolerated the sedation without complications. Patient is recovering as anticipated. Patient will continue to be monitored by nursing and may be discharged when sedation discharge criteria are met per below protocol. Upon Completions of procedure up to 15 minutes continue every 5 minute vital signs and the P.A.R. score; then discharge to a Phase I or Fast Track to Phase II per the following guidelines: * Discharge Patient to appropriate Phase II area if PAR is 8 or greater or return to pre- procedure baseline. The post - procedure orders will be as directed. * If PAR score is less than 8 or not return to pre-procedure baseline then patient will follow Phase I monitoring till PAR is reached for Phase II. The Phase I may be done in procedure room or may call to secure a Phase I area. * If naloxone or flumazenil are used for reversal, hold in Phase I for continued monitoring from when last reversal dose was given for a minimum of 60 minutes or longer pending the nurse and/or physician discretion of patient condition before discharge to Phase II. Please call the Sedation Physician to re-evaluate and complete post-note for discharge to Phase II area. Do NOT discharge from procedure sedation or Phase 1 until post- sedation evaluation note is complete by procedure /sedation MD Sedation Discharge Instructions to be given to the patient at discharge to home.
--- NOTE | 2019-10-04 13:45 | Pre Anesthesia Assessment ---
Date of Service October 04, 2019 Pre Sedation Assessment Vital Signs Temp Pulse Resp BP Pulse Ox Pulse Ox 10/04/19 13:40 60 18 111/67 98 10/04/19 12:00 98.6 F 70 20 110/62 96 10/04/19 08:54 95 10/04/19 07:45 98.2 F 76 16 129/63 95 10/04/19 03:32 98.1 F 61 16 119/65 93 10/03/19 23:09 98.6 F 64 16 127/72 94 10/03/19 19:26 98.6 F 63 20 152/67 H 95 10/03/19 15:55 97.9 F 66 18 152/86 H 95 10/03/19 15:49 97.7 F 66 20 162/89 H 94 Cardiovascular RRR, no murmur, no edema Respiratory normal respiratory effort, lungs clear to auscultation Pre-Sedation Airway Assessment Smoking Status: Never smoker Hx Sleep Apnea: No Hx Difficult Intubation: No Short, Thick Neck: No Thyromental Distance: > or= 3.5 Finger Breadths Oral Cavity: + Dentures Mallampati Class: II ASA: ASA3 NPO Status Date of Last Intake of Fluids: 10/03/19 Time of Last Intake of Fluids: 20:00 Date of Last Intake of Solid Food: 10/03/19 Time of Last Intake of Solid Foods: 20:00 Procedure Planning Contraindications for Sedation: none Current Medications Reviewed: Yes Notes The planned sedation has been discussed with the patient. Informed Consent was obtained. I have identified the patient, determined the appropriateness of sedation and have assessed the patient immediately prior to the procedure. All medicine(s) and interventions are by my order.
--- NOTE | 2019-10-04 14:02 | Cardiac Catheterization ---
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 Cardiac Status Clinical evaluation leading to the procedure CAD Presenation: Non STEMI and Unstable angina Anginal Classification: CCS IV Heart Failure: No Cardiogenic Shock within 24 Hours: No Cardiac Arrest within 24 Hours: No Imaging Studies Past 6 Months: Yes Stress Studies Past 6 Months: No Diagnostic Physicians Name: Petey Bateman MD Status: Elective Closure Device Percutaneous Entry Location: Radial Closure Device: Radial Band Recommendations: CABG and Valve Replacement Intraprocedure Events Significant Disection: No Perforation: No Cardiac Cath Procedure Full Procedure Date October 04, 2019 Pre-Procedure Diagnosis Pre-Procedure Diagnosis: Non STEMI, CHF and Cardiomyopathy AUC Score AUC Score: 8 Post-Procedure Diagnosis Post-Procedure Diagnosis: Severe CAD, Elevated Intracardiac Pressures and Cardiothoracic Finding (Moderate to severe aortic stenosis) Procedure(s) Performed Procedure(s) Performed: Coronary Angiography, Left Heart Cath, Right Heart Cath and IVUS Sales Operations Analyst Petey Bateman MD Church Warden(s) Rajni Estimated Blood Loss Estimated Blood Loss: 15 Medication(s) Medication(s): Fentanyl, Heparin, Lidocaine 1%, Nicardipine, Nitroglycerin and Versed Summary of Findings Indication: Heart failure, accelerating angina, mildly elevated troponin Access: 6 Fr slender right radial artery, 7 Fr right common femoral vein Catheters: [place], [place], IKari 3.5 guide, 7 Fr [place] Findings: LM -50 to 60% ostial stenosis with waveform dampening with catheter engagement. 30% distal at bifurcation LAD -30% proximal disease prior to mid LAD stents which are widely patent with minimal in-stent restenosis. Distal luminal irregularities as wraps around apex Circumflex -medium caliber, 70 to 80% proximal stenosis just after takeoff of high OM1, mid segment stent widely patent and OM 2 without significant disease. OM1 with 60-70 % proximal disease RCA -dominant, medium caliber, 70 to 80% ostial stenosis (waveform dampening with guide engagement), 30 to 40% proximal disease, mid to distal luminal regularities RA 6 RV 53/9 PA 58/19 (35) PAWP 22 LV 26 PaSat 57% AoSat 86% Thermo CO/CI 4.2/2.1 Aortic valve mean gradient 25.7 Aortic valve area 0.97 cm, index 0.49 IVUS of left main, ostial RCA -- Left main cannulated with Ikari 3.5 guide (waveform dampening with catheter engagement). BMW wire placed into mid LAD [place] IVUS pullback revealed patent mid LAD stent, severe ostial stenosis of left main (MLA 5.4 mm). Catheter, wire removed and no apparent coronary complications RCA cannulated with Ikari 3.5 guide (waveform dampening with catheter engagement). BMW wire placed into mid RCA [place] IVUS pullback revealed moderate proximal RCA disease with severe ostial disease (MLA 2.8 mm). No apparent coronary complications following catheter, wire removal Arterial Closure: TR band, Mynx 2 7 Fr right common femoral vein Summary: 1. Severe multivessel coronary artery disease -50 to 60% ostial left main (waveform dampening with engagement, MLA 5.4 mm by IVUS) 70 to 80% ostial RCA (MLA 2.8 mm2 by IVUS). 80% proximal circumflex at bifurcation with OM1 with a 60 to 70% proximal stenosis 2. Moderate to severe aortic stenosis (mean gradient 25 mmHg, DESIRE 0.97) 3. Elevated left and right-sided filling pressures 4. Moderate pulmonary hypertension Recommendations: Further evaluation for CABG and AVR Continue diuresis. Hemodynamics Rest Ao:: 136/50/85 Final Ao: 157/56/95 LV: 171/20 Recommendations Recommendations: CABG and Valve Replacement Specimens Specimens: None Radiation Exposure (mGy) 3076 Contrast (mls) 100 Drains Drains: None Anesthesia Moderate Procedural Complication(s) None Disposition PCU I attest to the content of the Intraoperative Record and any orders documented therein. Any exceptions are noted below. [facility] Card Cath Procedure Codes Cardiac Catheterization Procedure 1: Cardiovascular Cath Procedures: 59231 Coronaries & LHC (+/-LV) & RHC Therapeutic Services & Ancillary Proc Procedure 1: Cardiovascular Tx and Anc Procedures: 31047 IV Ultrasound (Coronary or Graft) Procedure 2: Cardiovascular Tx and Anc Procedures: 03147 IV Ultrasound Ea addl vessel Moderate Sedation Procedure 1: Sedation/Anesthesia: 65962 Mod Sedation by the same physician;Init15 Min Child Age 5 & Up Procedure 2: Sedation/Anesthesia: 79838 Mod Sedation by the same physician; Ea [id number] Minutes PG Care Time/CCT Total # of Minutes Spent Total Time Spent with Patient: Total time spent is greater than 50% in coordination of care (as documented) at patient's floor/unit and/or counseling patient:
[2019-10-04] MEDS ORDERED: DIGOXIN 0.125 MG TAB PO SCH (16:00)
[2019-10-04] MEDS ORDERED: Heparin IV Low Dose *NO* Bolus IV SCH (17:32)
[2019-10-04] MEDS ORDERED: HEPARIN SODIUM/DEXTROSE 25,000 UNITS/500 ML BAG IV SCH (17:45)
--- NOTE | 2019-10-08 07:30 | Discharge Summary ---
Date of Service October 04, 2019 Admission HPI Per Admitting Provider Patient is a 79 years old female with past medical history of paroxysmal atrial flutter on apixaban, coronary artery disease, morbid obesity, hyperlipidemia, hypertension, with pacemaker placed by Dr. 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 Patient denies fever, chills, abdominal pain, syncope, near syncope, hematemesis, hematuria, melena, nausea, vomiting. Patient has a longstanding history of cardiac ischemia in 2009 with mildly reduced left ventricular function and also mild valvular aortic disease as well moderate mitral regurgitation. Patient had cardiac catheterization on April 22, 2015 showing a left ventricular ejection fraction of 45 to 50% with progressive disease but no other intervention was required at that time. In January 2016 patient underwent urgent cardioversion for atrial flutter with RVR and she was started on amiodarone and continued on Xarelto for which she was placed for DVT. Later his Xarelto was replaced with Eliquis. Patient has unstable angina and in October 2017 she has intervention for ALD and stents placed in the mid LAD. Patient was also admitted for acute congestive heart failure in April 2018 and stress test was done and abnormal and catheterization thereafter showed diffuse nonobstructive coronary disease. Patient was continued to be treated medically. Patient has a dual-chamber pacemaker implanted on April 2018 and she has longstanding left bundle branch block for the past 4 years but she did not meet criteria for a biventricular pacing nor ICD implantation. In the ER patient was started on 3 inch Nitropaste and given hydralazine 10 mg IV x2 for elevated bl ood pressure. Bumex was given 1 mg x 1 IV. For shortness of breath patient was placed BiPAP. Labs are reviewed: WBC is 11.11, hemoglobin 14.3, hematocrit 43.3 platelets 319, PT 10.5, INR 1, APTT 24.8, sodium 135, potassium 4.2, BUN 29, creatinine 1.86, GFR 25.1, glucose 231, hemoglobin A1c 6.4 dated August 27, 2019, troponin -0 0.015, BNP 3048, TSH pending. Chest x-ray is reviewed and showed small right and trace left pleural effusion with bibasilar opacities. Pacemaker is in place. There is no pneumothorax. Pulmonary edema has developed since prior exam. Widening of the right paratracheal stripe is unchanged due to normal vessels. EKG significant for atrial paced rhythm and longstanding left bundle branch block QT 416. Decision was made to admit patient to PCU on telemetry for evaluation of the chest pain/unstable angina and acute congestive heart failure with volume overload. Principal Diagnosis Severe multivessel coronary artery disease Discharge Exam Constitutional: WD/WN, vitals as above well developed, + acute distress, + ill appearing and + morbidly obese Eyes: PERRL, conjunctivae normal, anicteric sclerae ENMT: external ear and nose normal, oropharynx normal Neck: trachea midline, no thyromegaly Respiratory: + respiratory distress and + labored breathing Auscultation: + crackles and + wheezes Cardiovascular: Rate/Rhythm: + irregularly irregular Heart Sounds: normal S1 and normal S2 Palpation: normal PMI, + palpable S3 and + palpable S4 Vessels: + JVD and dorsalis pedis pulses present Extremities: normal capillary refill, + pedal edema and + edema Gastrointestinal (Abdomen): normal bowel sounds, soft, nontender, no hepatosplenomegaly Musculoskeletal: no cyanosis or clubbing, extremities motor strength 5/5 Skin: no rashes, warm and dry Neurologic: patellar DTR's 2+ bilat, sensation intact Psychiatric: A+Ox3, euthymic affect Lymphatic: no cervical or axillary lymphadenopathy Discharge Data Allergies Allergy/AdvReac Type Severity Reaction Status Date / Time adhesive Allergy Unknown REDNESS Verified 10/03/19 10:54 AND IRRITATION FROM PAIN PATCH, TAPE dulaglutide [From Trulicity] Allergy Unknown Unknown Verified 10/03/19 10:54 glipizide Allergy Unknown Unknown Verified 10/03/19 10:54 latex Allergy Unknown ALLERGIC Verified 10/03/19 10:54 TO LATEX TAPE/RASH/ITCHING morphine Allergy Unknown swelling Verified 10/03/19 10:54 nausea vomiting olmesartan Allergy Unknown UNKNOWN Verified 10/03/19 10:54 exenatide [From [place]etta] Allergy Unknown Verified 10/03/19 10:54 glyburide Allergy Unknown Verified 10/03/19 10:54 metformin Allergy Unknown Verified 10/03/19 10:54 sitagliptin [From Januvia] Allergy Unknown Verified 10/03/19 10:54 aspirin AdvReac Mild GI SYMPTOMS Verified 09/27/19 10:04 ezetimibe AdvReac Mild MUSCLE Verified 09/27/19 10:04 ACHES lisinopril AdvReac Unknown LIGHTHEADED Verified 10/03/19 10:54 AND DIZZY pioglitazone AdvReac Unknown DIARRHEA Verified 10/03/19 10:54 NAUSEA Cyljiuc-Uoi-Qml Reductase AdvReac Unknown myalgias Verified 10/03/19 10:54 Inhibitor and weakness benzonatate AdvReac confusion Verified 09/27/19 10:04 [From Giovanni Brennan] statins Allergy Unknown Unknown Uncoded 10/03/19 10:54 Consultations 10/03/19 10:49 ED Decision to Admit Stat 10/03/19 11:09 Consult Cardiology Routine 10/03/19 11:13 Consult Case Management - Discharge Planning Routine 10/03/19 13:32 Consult Nephrology Routine Procedures Performed Operation Date: 10/04/19 12:00 Actual Procedures s Cineradiography w/Routine Exam - Pascual Bateman MD p Cath, Right and Left Heart - Pascual Bateman MD s IVUS Coronary Single Vessel - Pascual Bateman MD s IVUS Coronary each ADDL Vessel - Pascual Bateman MD Ordered Studies 10/04/19 11:54 CL Cath Imgs for PACS use only Routine 10/04/19 15:05 CL IVUS Coronary Single Vessel Stat Hospital Course (1) Acute congestive heart failure: Admitted to PCU on telemetry Vital signs every 4 hours Strict in and out Daily weight Continue Bumex 1 mg IV BID Monitor BNP(part of BNP elevation is due to poor clearance related to CKD stage III) Monitor chest pain-unstable angina Troponin every 6 hours x3 with EKG Continue Nitropaste for chest pain and hypertension. Continue home medicine; amiodarone 200 mg p.o. every afternoon, apixaban 2.5 mg p.o. twice daily carvedilol 9.375 mg twice daily, clopidogrel 75 mg p.o. every afternoon, digoxin 0.125 mg 3 times a week, garlic 1000 mg capsule p.o. every morning, magnesium oxide 400 mg p.o. every afternoon, multivitamins p.o. daily, ranolazine 1000 mg p.o. twice daily. Daily labs, and replenish electrolytes. Consult cardiology On day 2: patient had severe multivessel disease on cardiac cath. Patient will be transferred to [facility] for possible CABG and AVR.. Report below is in Bold. Family and patient were updated. DVT prophylaxis the apixaban for atrial flutter as well for DVTs Patient is full code (2) Acute respiratory failure: Likely due to volume overload and pulmonary edema. Patient is now on BiPAP, responding very well, her O2 sats are 95% and flow rate of 30 L/min Continue BiPAP/CPAP per protocol as needed. Patient is not on oxygen at home per history. (3) Unstable angina: Consult cardiology. Patient had recent TTE on September 12, 2019 which showed left atrium moderately dilated, moderate to severe valvular aortic stenosis, moderate to severe left ventricular systolic dysfunction. Borderline left ventricular dilatation, moderate left atrial dilatation, moderate to severe aortic stenosis. Trace aortic regurgitation. Moderate mitral regurgitation. Moderate tricuspid regurgitation. Moderately elevated right ventricular systolic pressures pressure. Patient has diastolic congestive heart failure. Continue nitroglycerin paste as needed for chest pain. Monitor blood pressure every 4 hours On day 2 of hospital stay: Summary: 1. Severe multivessel coronary artery disease -50 to 60% ostial left main (waveform dampening with engagement, MLA 5.4 mm by IVUS) 70 to 80% ostial RCA (MLA 2.8 mm2 by IVUS). 80% proximal circumflex at bifurcation with OM1 with a 60 to 70% proximal stenosis 2. Moderate to severe aortic stenosis (mean gradient 25 mmHg, DESIRE 0.97) 3. Elevated left and right-sided filling pressures 4. Moderate pulmonary hypertension (4) GERD (gastroesophageal reflux disease): Continue home dose of pantoprazole 40 mg p.o. daily as needed. Hold if worsening kidney function. (5) Hypothyroidism: TSH pending. Continue for now levothyroxine 75 MCG's p.o. daily. (6) CKD (chronic kidney disease), stage III: Appears to worsening .patient creatinine is in the range of 1.63-1.86 with a GFR of 18.2-15.5. Plan to consult nephrology. Will be that patient would benefit from temporary hemodialysis. Probably her symptoms of uncontrolled blood pressure , failing kidneys volume overload resulted as unstable angina (7) DM II (diabetes mellitus, type II), controlled: Readjust home dose insulin to two thirds of what patient takes at home. Otherwise glycemic control per pharmacy. Accu-Cheks before meals and at bedtime. Last hemoglobin A1c was 6.4 on August 27. Repeat A1c and lipid panel. (8) Atrial flutter: As already discussed (9) Morbid obesity: Patient advised to try to reduce her weight at least 10 pounds. Recommended healthy lifestyle and proper diet. (10) HLD (hyperlipidemia): Lipid panel pending. Patient has a lots of allergies among other things is statins and ezetimibe. Will defer to cardiology. Possibly they can order Repatha. (11) HTN (hypertension): As already discussed continue home medicine. Hydralazine 10 mg IV as needed for blood pressure elevated above 160/90 (12) CAD (coronary artery disease): Continue home medicine: Amiodarone 200 mg p.o. every afternoon, carvedilol 9.375 p.o. twice daily, clopidogrel 75 mg p.o. every afternoon, digoxin 0.125 mg p.o. 3 times a week, magnesium 400 mg p.o. every afternoon, potassium chloride 20 mg p.o. twice daily, ranolazine 1000 mg p.o. twice daily, consider Repatha if patient has elevated lipid panel. Total Time Total Time Spent Total Time Spent (In Minutes): 32 Total Time Includes: Examination of the Patient, Discharge Planning and Medication Reconciliation Discharge Plan Discharge Items Patient Disposition: Transfer Acute Care Hospital Reason For Visit: SOB Discharge Diagnosis: Ruy multi-vessel coronary artery disease Activity: Resume your previous activity Non-emergency contact: Primary Care Provider Call non-emergency contact if: you have any medication questions Follow-up/Referrals: ProBoby MD [Primary Care Provider] - Diet: Carb Consistent or DM2 and Heart Healthy Addtl Attending Provider Instructions: You radu be transferred to tertiary center for CABG. Pending Studies at Discharge: No Stand-Alone Forms: My [facility] Skilled Items Patient informed of condition?: Yes DNR: No Discharge Level of Care: Other Communicable Disease: No Discharge Prognosis: Stable Lines: Peripheral IV Urinary Catheter: No Medications and DC Order Prescriptions: New digoxin 125 mcg (0.125 mg) Tablet 0.125 mg PO MoTuFr@1600 Qty: 0 RF: 0 Continued bumetanide 1 mg tablet 1 mg PO BID Qty: 90 RF: 3 insulin syringe-needle U-100 0.3 mL 31 gauge x 5/16" syringe See Rx Instructions .ROUTE .COMPLEX Qty: 100 RF: 9 Novolog Mix 70-30 U-100 Insuln 100 unit/mL (70-30) solution 50 units SUBCUT AMPM Qty: 30 RF: 5 OneTouch Verio strip 1 strip miscellaneous TID Qty: 100 RF: 3 amiodarone 200 mg tablet 200 mg PO QPM Qty: 90 RF: 0 garlic 1,000 mg capsule 1,000 mg PO QAM Qty: 30 RF: 0 magnesium oxide 400 mg magnesium capsule 400 mg PO QPM Qty: 90 RF: 0 vitamin E 400 unit capsule 400 unit PO DAILY Qty: 90 RF: 0 albuterol sulfate 90 mcg/actuation HFA aerosol inhaler 2 puff INHALATION Q6H PRN (Reason: Shortness Of Breath Or Wheezing) Qty: 8 RF: 1 clopidogrel [Plavix] 75 mg tablet 75 mg PO QPM Qty: 90 RF: 3 Eliquis 2.5 mg tablet 2.5 mg PO BID RF: 0 carvedilol 6.25 mg tablet 9.375 mg PO BID Qty: 90 RF: 11 potassium chloride 20 mEq tablet extended release 20 meq PO BID RF: 0 levothyroxine 75 mcg tablet 75 mcg PO DAILY Qty: 90 RF: 3 trazodone 50 mg tablet 50 mg PO DAILY RF: 0 cholecalciferol (vitamin D3) 1,000 unit capsule 1,000 units PO DAILY RF: 0 ranolazine 1,000 mg tablet extended release 12 hr 1,000 mg PO BID Qty: 180 RF: 3 multivitamin [Multiple Vitamins] tablet 1 tab PO DAILY RF: 0 pantoprazole 40 mg tablet,delayed release (DR/EC) 40 mg PO DAILY PRN (Reason: Stomach Upset) RF: 0 Discontinued digoxin 125 mcg Tablet 0.125 mg PO 3XWK RF: 0 Discharge Orders: Discharge Order (Routine); Ordered 10/04/19 Ordered By: Bhanu Rueda Admission Data Admit Date/Time: 10/03/19 11:09 Attending Provider: Bhanu Rueda Admit Provider: Ariel Edouard Primary Care Provider: Boby Reddy Other Providers: Ariel Edouard ; Davion Alvarez ; Yao Atkins Other Interventions: Discharge Summary Assessment (RN) Last Done: 10/04/19 18:06 DC Date/Time DO NOT enter until pt leaves facility: 10/04/19 19:31
== END 2019-10-04 19:31 | disposition short-term general hospital (02) | DRG 286 ==
LOC: ED 08:41 → 2S 11:09 → SUATTDRO 11:09 → 2S 11:54

== ENCOUNTER 2019-12-18 07:53 | Observation (INO) ==
[2019-12-18] MEDS ORDERED: HEPARIN (PORCINE) 1000 UNIT/ML 10 ML (CATH LAB USE ONLY) ONE (08:43)
[2019-12-18] MEDS ORDERED: MIDAZOLAM HCL 1 MG/ML 2ML VIAL ONE ×2 (08:43→11:17)
[2019-12-18] MEDS ORDERED: fentaNYL citrate 100 MCG/2 ML VIAL ONE (08:43)
[2019-12-18] MEDS ORDERED: NiCARDipine HCL INJ 2.5 MG/ML 10 ML AMP ONE (08:43)
[2019-12-18] MEDS ORDERED: NITROGLYCERIN/D5W 100MCG/ML 20ML SYR ONE (08:44)
--- NOTE | 2019-12-18 09:39 | History & Physical Bridge Note ---
Date of Service December 18, 2019 History & Physical Bridge Note I have examined the patient, reviewed the History & Physical and in the interval since the performance of the History & Physical I have noted the following changes of clinical significance: no changes noted
--- NOTE | 2019-12-18 09:40 | Pre Anesthesia Assessment ---
Date of Service December 18, 2019 Pre Sedation Assessment Vital Signs Temp Pulse Resp BP Pulse Ox 12/18/19 08:35 97.9 F 72 20 137/78 97 Cardiovascular RRR, no murmur, no edema Respiratory normal respiratory effort, lungs clear to auscultation Pre-Sedation Airway Assessment Smoking Status: Never smoker Hx Sleep Apnea: No Hx Difficult Intubation: No Short, Thick Neck: No Thyromental Distance: > or= 3.5 Finger Breadths Oral Cavity: + WNL Mallampati Class: III ASA: ASA2 NPO Status Date of Last Intake of Fluids: 12/18/19 Time of Last Intake of Fluids: 05:00 Date of Last Intake of Solid Food: 12/17/19 Time of Last Intake of Solid Foods: 21:00 Procedure Planning Contraindications for Sedation: none Current Medications Reviewed: Yes Notes The planned sedation has been discussed with the patient. Informed Consent was obtained. I have identified the patient, determined the appropriateness of sedation and have assessed the patient immediately prior to the procedure. All medicine(s) and interventions are by my order.
[2019-12-18] MEDS ORDERED: ATROPINE SULFATE 0.1 MG/ML 10ML SYR IV ONE (11:16)
[2019-12-18] MEDS ORDERED: TICAGRELOR 90 MG TAB PO ONE ×2 (12:03→12:04)
[2019-12-18] MEDS ORDERED: NITROGLYCERIN SL 0.4 MG/TAB TAB SL PRN (12:29)
[2019-12-18] MEDS ORDERED: ONDANSETRON INJ 2 MG/ML 2 ML VIAL IV PRN (12:29)
[2019-12-18] MEDS ORDERED: ACETAMINOPHEN 325 MG TAB PO PRN (12:29)
--- NOTE | 2019-12-18 12:29 | Post Anesthesia Assessment ---
Date of Service December 18, 2019 Post Sedation Assessment Vital Signs Temp Pulse Resp BP Pulse Ox 12/18/19 12:20 63 20 138/70 98 12/18/19 12:15 63 20 144/83 H 98 12/18/19 08:35 97.9 F 72 20 137/78 97 Recovery Score Activity: Moves 4 extremities Respiration: Deep Breath/Cough Circulation: +/-20% PreAnes Value Consciousness: Fully Awake Oxygen Saturation: > 92% On Room Air Post Anesthesia Score: 10 Discharge Sedation Level of Care: Fast Track Phase II Post Sedation Plan On clinical assessment, the patient appears to have tolerated the sedation without complications. Patient is recovering as anticipated. Patient will continue to be monitored by nursing and may be discharged when sedation discharge criteria are met per below protocol. Upon Completions of procedure up to 15 minutes continue every 5 minute vital signs and the P.A.R. score; then discharge to a Phase I or Fast Track to Phase II per the following guidelines: * Discharge Patient to appropriate Phase II area if PAR is 8 or greater or return to pre- procedure baseline. The post - procedure orders will be as directed. * If PAR score is less than 8 or not return to pre-procedure baseline then patient will follow Phase I monitoring till PAR is reached for Phase II. The Phase I may be done in procedure room or may call to secure a Phase I area. * If naloxone or flumazenil are used for reversal, hold in Phase I for continued monitoring from when last reversal dose was given for a minimum of 60 minutes or longer pending the nurse and/or physician discretion of patient condition before discharge to Phase II. Please call the Sedation Physician to re-evaluate and complete post-note for discharge to Phase II area. Do NOT discharge from procedure sedation or Phase 1 until post- sedation evalua tion note is complete by procedure /sedation MD Sedation Discharge Instructions to be given to the patient at discharge to home.
[2019-12-18] MEDS ORDERED: PANTOprazole 40 MG TAB PO PRN (12:31)
[2019-12-18] MEDS ORDERED: TRAZODONE HCL 50 MG TAB PO PRN (12:31)
[2019-12-18] MEDS ORDERED: ALBUTEROL HFA 8 GM INHALER INH PRN (12:31)
[2019-12-18] MEDS ORDERED: CARBOHYDRATES FOR HYPOGLYCEMIA PO PRN (12:38)
[2019-12-18] MEDS ORDERED: GLUCOSE 40% GEL 15 GM TUBE PO PRN (12:38)
[2019-12-18] MEDS ORDERED: GLUCAGON FOR INJ 1 MG VIAL SQ PRN (12:38)
[2019-12-18] MEDS ORDERED: DEXTROSE 50% 50 ML SYRINGE IV PRN (12:38)
[2019-12-18] MEDS ORDERED: GLUCOSE 10 TABS/TUBE PO PRN (12:38)
[2019-12-18] MEDS ORDERED: INSULIN 70% ASPART PROTAMINE/30% ASPART SQ SCH (12:45)
--- NOTE | 2019-12-18 12:49 | Cardiac Catheterization ---
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 Cardiac Status Clinical evaluation leading to the procedure CAD Presenation: Unstable angina Anginal Classification: CCS III Heart Failure: No Cardiogenic Shock within 24 Hours: No Cardiac Arrest within 24 Hours: No Imaging Studies Past 6 Months: Yes Stress Studies Past 6 Months: No Diagnostic Physicians Name: Petey Bateman MD Status: Elective Closure Device Percutaneous Entry Location: Ulnar Closure Device: Radial Band Recommendations: PCI without planned CABG PCI Indication: Unstable Angina Lesion Segment Name: Ostial RCA Culprit Artery: Yes Stenosis Prior to Rx (%): 70-80 Chronic Total Occlusion: No IVUS: No FFR: No Pre-Procedure VIJAYA Flow: 3 Previously Treated Lesion: No Lesion Complexity: Non-High/Non-C Lesion Length (mm): 12 Thrombus Present: No Bifurcation Lesion: Yes Guidewire Across Lesion: Stenosis Post-Procedure (%): 0 Post-Procedure VIJAYA Flow: 3 Devices(s) Deployed: Yes Yes Intraprocedure Events Significant Disection: No Perforation: No Cardiac Cath Procedure Full Procedure Date December 18, 2019 Pre-Procedure Diagnosis Pre-Procedure Diagnosis: Angina AUC Score AUC Score: 8 Post-Procedure Diagnosis Post-Procedure Diagnosis: Severe CAD and Successful PCI Procedure(s) Performed Procedure(s) Performed: Coronary Angiography, Ultrasound Guided Vascular Access and IVUS Service Girl Petey Bateman MD Tobacco Prizer(s) Naseem Estimated Blood Loss Estimated Blood Loss: 15 Medication(s) Medication(s): Fentanyl, Heparin, Lidocaine 1%, Nicardipine and Nitroglycerin Summary of Findings Indication: Accelerating angina Access: 6 Fr slender right ulnar artery under ultrasound guidance Catheters: Diagnostic JL 3.5, JR4. 5 Fr JR4 guide, 6 Fr JL 3.5 guide Findings: LM -50 to 60% ostial stenosis with waveform dampening with catheter engagement. 20-30% distal at bifurcation LAD -30% proximal disease prior to mid LAD stents which are widely patent with minimal in-stent restenosis. Distal luminal irregularities as wraps around apex Circumflex -medium caliber, ostial stent hazy and narrowed compared to mid segment stent, mid segment stent widely patent and OM 2 without significant disease. OM1 with 60-70 % proximal disease RCA -dominant, medium caliber, 70 to 80% ostial stenosis (waveform dampening with guide engagement), 30 to 40% proximal disease, mid to distal luminal regularities PCI RCA cannulated with 5 Fr JR4 guide BMW wire placed into distal RCA Ostial/proximal RCA dilated with 2.5 balloon Ostial to proximal RCA stented with 3.0 x 15 mm Xience Jewell drug-eluting stent Stent postdilated with 3.0 NC balloon to high atmospheres Post procedure stent well expanded with no apparent coronary complications. IVUS of left main/circumflex stents Left main cannulated with 6 Fr JL 3.5 guide BMW wire placed into distal circumflex IVUS pullback from mid circumflex through left main. Mid circumflex stent well apposed and well-expanded. Proximal circumflex stent extends back to ostium, appears underexpanded with circumferential calcium, no intraluminal stenosis. Minimal mid/distal left main disease. Severe stenosis limited to ostium. Summary: 1. Severe multivessel coronary artery disease 70 to 80% ostial RCA 50% ostial left main Patent proximal/mid circumflex stents (proximal circumflex stent underexpanded). 2. Successful PCI of ostial RCA with single drug-eluting stent (3.0 x 15 mm Xience Jewell). Recommendations: Continue dual therapy with ticagrelor, Eliquis Maximize antianginal therapy Reconsult cardiac rehab If recurrent anginal symptoms in the future consider higher risk intervention to ostial left main, ostial circumflex. Hemodynamics Rest Ao:: 174/68/100 Final Ao: 188/72/117 LV: Recommendations Recommendations: PCI without planned CABG Specimens Specimens: None Radiation Exposure (mGy) 3436 Contrast (mls) 100 Fluids (cc crystalloids) Fluids (cc crystalloids): 125 Drains Drains: None Anesthesia Moderate Procedural Complication(s) None Disposition PCU I attest to the content of the Intraoperative Record and any orders documented therein. Any exceptions are noted below. [employer] Card Cath Procedure Codes Cardiac Catheterization Procedure 1: Cardiovascular Cath Procedures: 31336 Coronaries Therapeutic Services & Ancillary Proc Procedure 1: Cardiovascular Tx and Anc Procedures: 20726 IV Ultrasound (Coronary or Graft) Moderate Sedation Procedure 1: Sedation/Anesthesia: 46888 Mod Sedation by the same physician;Init15 Min Child Age 5 & Up Procedure 2: Sedation/Anesthesia: 09627 Mod Sedation by the same physician; Ea [id number] Minutes Stenting Procedure 1: Cardiovascular Stent Procedures: 84696 Perc transcatheter placement of intracoronary stent(s), with ang PG Care Time/CCT Total # of Minutes Spent Total Time Spent with Patient: Total time spent is greater than 50% in coordination of care (as documented) at patient's floor/unit and/or counseling patient:
[2019-12-18] MEDS ORDERED: PHARMACY GLYCEMIC MGMT CONSULT PRN (14:01)
[2019-12-18] MEDS ORDERED: SODIUM CHLORIDE 0.9% 1000ML 1,000 ML IV SCH (15:00)
[2019-12-18] MEDS: ASPIRIN 81 MG ECTAB PO SCH (15:48)
[2019-12-18] MEDS ORDERED: INSULIN HUMAN NPH SC ONE (16:30)
[2019-12-18] MEDS: INSULIN ASPART 100 UNITS/ML 3 ML PEN SC SCH ×2 (17:17→20:30)
[2019-12-18] MEDS: BUMETANIDE 1 MG TAB PO SCH (17:21)
[2019-12-18] MEDS: RANOLAZINE 500 MG ER TAB PO SCH (20:36)
[2019-12-18] MEDS ORDERED: MAGNESIUM OXIDE 400 MG TAB PO SCH (21:00)
[2019-12-18] MEDS ORDERED: AMIODARONE 200 MG TAB PO SCH (21:00)
[2019-12-18] MEDS: carvediloL 6.25 MG TAB PO SCH (21:10)
[2019-12-18] MEDS: TICAGRELOR 90 MG TAB PO SCH (21:37)
[2019-12-19 06:27] LABS: Basophils # (auto) 0.04 K/uL (0-0.2); Basophils % (auto) 0.5 %; Eosinophils # (auto) 0.28 K/uL (0-0.5); Eosinophils % (auto) 3.8 %; Hematocrit (blood only) 34.1 % (37-47); Hemoglobin 10.9 g/dL (12.0-16.0); Immature Granulocytes # (auto) 0.01 K/uL (0.00-0.02); Immature Granulocytes % (auto) 0.1 %; Lymphocytes # (auto) 1.65 K/uL (1.2-3.4); Lymphocytes % (auto) 22.5 %; Mean Corpuscular Hemoglobin 32.7 pg (25-34); Mean Corpuscular Volume 102.4 fL (80-100); Mean Platelet Volume 10.4 fL (7.4-10.4); Monocytes # (auto) 0.86 K/uL (0.11-0.59); Monocytes % (auto) 11.7 %; Neutrophils # (auto) 4.49 K/uL (1.4-6.5); Neutrophils % (auto) 61.4 %; Platelet Count 259 K/uL (130-400); RDW Standard Deviation 49.1 fL (36.4-46.3); Red Blood Count 3.33 M/uL (4.2-5.4); White Blood Count 7.33 K/uL (4.8-10.8)
[2019-12-19 06:29] LABS: Estimated Average Glucose 134 mg/dl; Hemoglobin A1C 6.3 % (4.5-5.6)
[2019-12-19] MEDS ORDERED: LEVOTHYROXINE SODIUM 75 MCG TABLET PO SCH (06:30)
[2019-12-19 06:53] LABS: BUN Creatinine Ratio 14.9 (10-20); Calcium 8.8 mg/dl (8.5-10.1); Creatinine Clr Calc Pharmacy 29.2 ml/min; Est GFR (African American) 34.6; Est GFR (Non-African American) 29.9; Potassium 4.3 mmol/L (3.5-5.1)
[2019-12-19] MEDS ORDERED: INSULIN HUMAN NPH SC ONE (08:00)
[2019-12-19] MEDS: TICAGRELOR 90 MG TAB PO SCH (08:12)
[2019-12-19] MEDS: RANOLAZINE 500 MG ER TAB PO SCH (08:12)
[2019-12-19] MEDS: ASPIRIN 81 MG ECTAB PO SCH (08:12)
[2019-12-19] MEDS: carvediloL 6.25 MG TAB PO SCH (08:13)
[2019-12-19] MEDS: INSULIN ASPART 100 UNITS/ML 3 ML PEN SC SCH ×2 (08:16→11:55)
--- NOTE | 2019-12-19 08:57 | Discharge Summary ---
Date of Service December 19, 2019 Admission HPI Per Admitting Provider Ms. Barry is a very pleasant 79-year-old woman with a history of multivessel coronary artery disease post PCI with stenting to LAD and circumflex, severe aortic stenosis post TAVR, ischemic cardiomyopathy/chronic systolic heart failure, paroxysmal atrial fibrillation, peripheral arterial disease, hypertension, dyslipidemia referred for cardiac catheterization in the setting of progressive accelerating angina. Specialty Data Cardiology 1. Severe multivessel coronary artery disease 70 to 80% ostial RCA 50% ostial left main Patent proximal/mid circumflex stents (proximal circumflex stent underexpanded). 2. Successful PCI of ostial RCA with single drug-eluting stent (3.0 x 15 mm Xience Jewell). Discharge Data Consultations 12/18/19 12:31 Consult Cardiac Rehabilitation Routine Procedures Performed Operation Date: 12/18/19 09:30 Actual Procedures s Cineradiography w/Routine Exam - Pascual Bateman MD p Drug Eluting Stent SGl Vessel - Pascual Bateman MD s IVUS Coronary Single Vessel - Pascual Bateman MD s Cath, Left with Cors and Vent - Pascual Bateman MD Hospital Course (1) CAD (coronary artery disease): Patient underwent cardiac catheterization via right ulnar artery. Was again noted to have severe ostial RCA stenosis with waveform dampening with ca theter engagement. Also noted to have ostial left main disease. Previously noted ostial circumflex disease stented in the interim. Stent appeared undersized, hazy but showed no significant intraluminal stenosis on IVUS. Underwent PCI of ostial RCA with a single drug-eluting stent. Post procedure developed access site hematoma requiring prolonged compression. Admitted to telemetry service for overnight observation. No arrhythmia noted on monitor. Post procedure labs stable. Had no recurrent chest pain and states was able to walk the halls without prior chest pain although still with some shortness of breath. Endorsed mild numbness in her first and second digits on her right hand slowly improving overnight. Patient discharged home on hospital day 2. She will follow-up with cardiology in 2 weeks. Continue dual therapy with Eliquis, ticagrelor. Recommend cardiac rehab. If persistent anginal symptoms would consider intervention to ostial left main, undersized circumflex stent. In the setting of severe LV dysfunction, dyssynchrony may also be a candidate for NIGHT WORKER-D. Discharge Instructions Home Medications garlic 1,000 mg capsule 1,000 mg PO QAM #30 cap 04/01/19 [Rx Confirmed 12/18/19] magnesium oxide 400 mg PO QPM #90 cap 04/01/19 [Rx Confirmed 12/18/19] vitamin E 400 unit capsule 400 unit PO DAILY #90 cap 04/01/19 [Rx Confirmed 12/18/19] multivitamin 1 tab PO DAILY 05/19/19 [History Confirmed 12/18/19] potassium chloride 20 mEq tablet,extended release 20 meq PO BID tab 05/19/19 [History Confirmed 12/18/19] cholecalciferol (vitamin D3) 25 mcg (1,000 unit) capsule 1,000 units PO DAILY 06/06/19 [History Confirmed 12/18/19] trazodone 50 mg tablet 50 mg PO DAILY 06/06/19 [History Confirmed 12/18/19] albuterol sulfate 90 mcg/actuation aerosol inhaler 2 puff INHALATION Q6H PRN #8 gm 06/11/19 [Rx Confirmed 12/18/19] bumetanide 1 mg tablet 1 mg PO BID #90 tab 09/09/19 [Rx Confirmed 12/18/19] ranolazine 1,000 mg tablet,extended release,12 hr 1,000 mg PO BID #180 tab 09/27/19 [Rx Confirmed 12/18/19] insulin aspar prt-insulin aspart 100 unit/mL (70-30) subcutaneous soln 50 units SUBCUT AMPM #30 ml 09/30/19 [Rx Confirmed 12/18/19] insulin syringe-needle U-100 0.3 mL 31 gauge x 02/28" See Rx Instructions .ROUTE .COMPLEX #100 unspecified 09/30/19 [Rx Confirmed 12/18/19] pantoprazole 40 mg PO DAILY PRN 10/03/19 [History Confirmed 12/18/19] digoxin 0.125 mg PO MoTuFr@1600 #0 tab 10/04/19 [Rx Confirmed 12/18/19] apixaban 2.5 mg tablet 2.5 mg PO BID #60 tab 10/18/19 [Rx Confirmed 12/18/19] blood sugar diagnostic 1 strip MISCELLANEOUS TID #100 ea 11/06/19 [Rx Confirmed 12/13/19] levothyroxine 75 mcg tablet 75 mcg PO DAILY #90 tab 12/09/19 [Rx Confirmed 12/18/19] ticagrelor 90 mg tablet 90 mg PO BID 12/11/19 [History Confirmed 12/18/19] carvedilol 12.5 mg tablet 12.5 mg PO QPM tab 12/13/19 [History Confirmed 12/18/19] carvedilol 6.25 mg tablet 9.375 mg PO BID #90 tab 12/13/19 [Rx Confirmed 12/18/19] ondansetron HCl 8 mg tablet 8 mg PO Q8H #30 tab 12/13/19 [Rx Confirmed 12/18/19] amiodarone 200 mg tablet 200 mg PO QPM #90 tab 12/16/19 [Rx Confirmed 12/18/19] Coding Level of Care Code 91344 OBS Care - Discharge Diagnoses CAD (coronary artery disease) I25.10
[2019-12-19] MEDS ORDERED: APIXABAN 2.5 MG TAB PO SCH (09:00)
[2019-12-19] MEDS ORDERED: MULTIVITAMIN TAB PO SCH (09:00)
[2019-12-19] MEDS ORDERED: TOCOPHERYL, DL-ALPHA 400 UNITS CAP PO SCH (09:00)
[2019-12-19] MEDS ORDERED: CHOLECALCIFEROL 1,000 UNITS 25 MCG TAB PO SCH (09:00)
[2019-12-19] MEDS: BUMETANIDE 1 MG TAB PO SCH (09:24)
--- NOTE | 2019-12-19 17:31 | Electrocardiogram Report ---
Test Reason : Blood Pressure : / mmHG Vent. Rate : 065 BPM Atrial Rate : 065 BPM P-R Int : 248 ms QRS Dur : 156 ms QT Int : 452 ms P-R-T Axes : 000 012 159 degrees QTc Int : 470 ms Atrial-paced rhythm with prolonged AV conduction Left bundle branch block Abnormal ECG When compared with ECG of 04-OCT-2019 07:46, T wave inversion no longer evident in Lateral leads Confirmed by Donnell Deleon ([id number]) on 12/19/2019 5:30:59 PM Referred By: Zuri Marshall Confirmed By:Donnell Deleon
[2019-12-20] MEDS ORDERED: DIGOXIN 0.125 MG TAB PO SCH (16:00)
== END 2019-12-19 15:24 | disposition home or self-care (01) ==
LOC: CC 07:53 → 2S 07:53
PROC: CLB.CCO (2019-12-18 09:30)

== ENCOUNTER 2020-01-10 06:49 | Observation (INO) ==
[2020-01-10] MEDS ORDERED: MIDAZOLAM HCL 1 MG/ML 2ML VIAL ONE ×2 (07:49→08:57)
[2020-01-10] MEDS ORDERED: HEPARIN (PORCINE) 1000 UNIT/ML 10 ML (CATH LAB USE ONLY) ONE (07:49)
[2020-01-10] MEDS ORDERED: fentaNYL citrate 100 MCG/2 ML VIAL ONE ×2 (07:49→09:20)
[2020-01-10] MEDS ORDERED: NiCARDipine HCL INJ 2.5 MG/ML 10 ML AMP ONE (07:49)
[2020-01-10] MEDS ORDERED: NITROGLYCERIN/D5W 100MCG/ML 20ML SYR ONE (07:50)
[2020-01-10] MEDS ORDERED: TICAGRELOR 90 MG TAB PO ONE (07:56)
--- NOTE | 2020-01-10 08:06 | History & Physical Bridge Note ---
Date of Service January 10, 2020 History & Physical Bridge Note I have examined the patient, reviewed the History & Physical and in the interval since the performance of the History & Physical I have noted the following changes of clinical significance: no changes noted
--- NOTE | 2020-01-10 08:06 | Pre Anesthesia Assessment ---
Date of Service January 10, 2020 Pre Sedation Assessment Vital Signs Temp Pulse Resp BP Pulse Ox 01/10/20 07:06 98.1 F 91 H 18 149/81 H 94 Cardiovascular RRR, no murmur, no edema Respiratory normal respiratory effort, lungs clear to auscultation Pre-Sedation Airway Assessment Smoking Status: Never smoker Hx Sleep Apnea: No Hx Difficult Intubation: No Short, Thick Neck: No Thyromental Distance: > or= 3.5 Finger Breadths Oral Cavity: + Dentures Mallampati Class: III ASA: ASA3 NPO Status Date of Last Intake of Fluids: 01/09/20 Time of Last Intake of Fluids: 18:30 Date of Last Intake of Solid Food: 01/09/20 Time of Last Intake of Solid Foods: 18:30 Procedure Planning Contraindications for Sedation: none Current Medications Reviewed: Yes Notes The planned sedation has been discussed with the patient. Informed Consent was obtained. I have identified the patient, determined the appropriateness of sedation and have assessed the patient immediately prior to the procedure. All medicine(s) and interventions are by my order.
[2020-01-10] MEDS ORDERED: NOREPINEPHRINE BITARTRATE 1 MG/ML 4 ML VIAL (CATH LAB USE ONLY) ONE (09:06)
[2020-01-10] MEDS ORDERED: HydrALAZINE HCL 20 MG/ML VIAL ONE (09:51)
[2020-01-10] MEDS ORDERED: FUROSEMIDE 40 MG/4 ML VIAL IV ONE (10:18)
[2020-01-10] MEDS ORDERED: ACETAMINOPHEN 325 MG TAB PO PRN (10:46)
[2020-01-10] MEDS ORDERED: ONDANSETRON INJ 2 MG/ML 2 ML VIAL IV PRN (10:46)
[2020-01-10] MEDS ORDERED: INSULIN 70% ASPART PROTAMINE/30% ASPART SQ SCH (11:00)
[2020-01-10] MEDS ORDERED: PANTOprazole 40 MG TAB PO PRN (11:00)
[2020-01-10] MEDS ORDERED: ALBUTEROL HFA 8 GM INHALER INH PRN (11:00)
[2020-01-10] MEDS ORDERED: TRAZODONE HCL 50 MG TAB PO PRN (11:00)
[2020-01-10] MEDS ORDERED: CARBOHYDRATES FOR HYPOGLYCEMIA PO PRN (11:02)
[2020-01-10] MEDS ORDERED: DEXTROSE 50% 50 ML SYRINGE IV PRN (11:02)
[2020-01-10] MEDS ORDERED: GLUCOSE 10 TABS/TUBE PO PRN (11:02)
[2020-01-10] MEDS ORDERED: GLUCOSE 40% GEL 15 GM TUBE PO PRN (11:02)
[2020-01-10] MEDS ORDERED: GLUCAGON FOR INJ 1 MG VIAL SQ PRN (11:02)
--- NOTE | 2020-01-10 11:07 | Post Anesthesia Assessment ---
Date of Service January 10, 2020 Post Sedation Assessment Vital Signs Temp Pulse Resp BP Pulse Ox 01/10/20 10:55 65 20 142/61 H 96 01/10/20 10:40 67 22 152/59 H 95 01/10/20 10:25 68 22 155/53 H 94 01/10/20 10:10 69 22 156/86 H 93 01/10/20 07:06 98.1 F 91 H 18 149/81 H 94 Recovery Score Activity: Moves 4 extremities Respiration: Deep Breath/Cough Circulation: +/-20% PreAnes Value Consciousness: Fully Awake Oxygen Saturation: O2 needed for >90% Post Anesthesia Score: 9 Discharge Sedation Level of Care: Fast Track Phase II Post Sedation Plan On clinical assessment, the patient appears to have tolerated the sedation without complications. Patient is recovering as anticipated. Patient will continue to be monitored by nursing and may be discharged when sed ation discharge criteria are met per below protocol. Upon Completions of procedure up to 15 minutes continue every 5 minute vital signs and the P.A.R. score; then discharge to a Phase I or Fast Track to Phase II per the following guidelines: * Discharge Patient to appropriate Phase II area if PAR is 8 or greater or return to pre- procedure baseline. The post - procedure orders will be as directed. * If PAR score is less than 8 or not return to pre-procedure baseline then patient will follow Phase I monitoring till PAR is reached for Phase II. The Phase I may be done in procedure room or may call to secure a Phase I area. * If naloxone or flumazenil are used for reversal, hold in Phase I for continued monitoring from when last reversal dose was given for a minimum of 60 minutes or longer pending the nurse and/or physician discretion of patient condition before discharge to Phase II. Please call the Sedation Physician to re-evaluate and complete post-note for discharge to Phase II area. Do NOT discharge from procedure sedation or Phase 1 until post- sedation evaluation note is complete by procedure /sedation MD Sedation Discharge Instructions to be given to the patient at discharge to home.
--- NOTE | 2020-01-10 11:08 | Cardiac Catheterization ---
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: Educational Administrator Cardiac Status Clinical evaluation leading to the procedure CAD Presenation: Unstable angina Anginal Classification: CCS IV Heart Failure: No Cardiogenic Shock within 24 Hours: No Cardiac Arrest within 24 Hours: No Imaging Studies Past 6 Months: Yes Stress Studies Past 6 Months: No Diagnostic Physicians Name: Petey Bateman MD Status: Elective Closure Device Percutaneous Entry Location: Femoral Closure Device: StarClose Recommendations: PCI without planned CABG PCI Indication: Angina despite med therapy and Unstable Angina Lesion Segment Name: Ostial left main Culprit Artery: Yes Stenosis Prior to Rx (%): 70 Chronic Total Occlusion: No IVUS: Yes FFR: No Pre-Procedure VIJAYA Flow: 3 Previously Treated Lesion: No Lesion Complexity: High/C Lesion Length (mm): 8 Thrombus Present: No Bifurcation Lesion: Yes Guidewire Across Lesion: Stenosis Post-Procedure (%): 0 Post-Procedure VIJAYA Flow: 3 Devices(s) Deployed: Yes Yes Intraprocedure Events Significant Disection: No Perforation: No Cardiac Cath Procedure Full Procedure Date January 10, 2020 Pre-Procedure Diagnosis Pre-Procedure Diagnosis: Acute Coronary Syndrome AUC Score AUC Score: 8 Post-Procedure Diagnosis Post-Procedure Diagnosis: Severe CAD and Successful PCI Procedure(s) Performed Procedure(s) Performed: Coronary Angiography, Drug Eluting Stent, Ultrasound Guided Vascular Access and IVUS Insurance Agency Manager Petey Bateman MD Provider Network Mgr(s) Naseem Estimated Blood Loss Estimated Blood Loss: 15 Medication(s) Medication(s): Fentanyl, Heparin, Lidocaine 1%, Nicardipine, Nitroglycerin and Versed Medication(s): Ticagrelor Summary of Findings Indication: Accelerating angina Access: 6 Fr slender left ulnar artery, 6 Fr left common femoral artery Catheters: Diagnostic JR4, JL 3.5 guide Findings: LM -70 % ostial stenosis with waveform dampening with catheter engagement. 20- 30% distal at bifurcation LAD -30% proximal disease prior to mid LAD stents which are widely patent with minimal in-stent restenosis. Distal luminal irregularities as wraps around apex Circumflex -medium caliber, ostial stent hazy and narrowed compared to mid segment stent, mid segment stent widely patent and OM 2 without significant disease. OM1 with 60-70 % proximal disease RCA -dominant, medium caliber, ostial stent widely patent, mid to distal luminal regularities -- PCI -- Antithrombotic therapy: Heparin, ticagrelor Procedure: Left main cannulated with JL 3.5 guide. Catheter waveform dampening with engagement. BMW wire placed into distal circumflex Pro-water wire wire passed into distal LAD [employer] Product Consultant 50 wire placed into high OM1 Proximal circumflex stent postdilated with 3.25 NC Ostium of OM1 through stent struts dilated with 2.5 balloon Ostial left main dilated with 2.5 balloon Dilated left main lesion stented with 4.0 x 12 mm Xience Jewell drug-eluting stent Stent post-dilated with 4.0 noncompliant balloon Post stenting IVUS assessment showed mild residual stenosis at ostium of circumflex. Left main stent well apposed, well-expanded with only minimal residual stenosis at ostium. No catheter waveform dampening with engagement Post procedure angiography revealed VIJAYA 3 flow, stents well expanded with minimal residual stenosis and no apparent cardiac complications. Arterial Closure: TR band to left ulnar artery, Star close to left common femoral artery Summary: 1. Severe ostial left main stenosis 2. Moderate residual ostial circumflex, OM1 disease 3. Widely patent ostial RCA, LAD and mid circumflex stents 4. Successful PCI of ostial left main with single drug-eluting stent (4.0 x 12 mm Xience Jewell). 5. Post dilation of proximal circumflex stent with 3.25 NC 6. Angioplasty of ostial OM1 through stent struts with 2.5 balloon Recommendations: To PCU for continued monitoring Triple therapy with aspirin, ticagrelor, Eliquis for 1 week. Then dual therapy with ticagrelor, Eliquis likely indefinitely. Continue statin, and ASCVD risk factor modification Hemodynamics Rest Ao:: 165/61/100 Final Ao: 177/70/114 LV: -- Recommendations Recommendations: PCI without planned CABG Specimens Specimens: None Radiation Exposure (mGy) 3081 Contrast (mls) 125 Fluids (cc crystalloids) Fluids (cc crystalloids): 380 Drains Drains: None Anesthesia Moderate Procedural Complication(s) None Disposition PCU I attest to the content of the Intraoperative Record and any orders documented therein. Any exceptions are noted below. [employer] Card Cath Procedure Codes Cardiac Catheterization Procedure 1: Cardiovascular Cath Procedures: 83114 Coronaries Therapeutic Services & Ancillary Proc Procedure 1: Cardiovascular Tx and Anc Procedures: 86221 IV Ultrasound (Coronary or Graft) Procedure 2: Cardiovascular Tx and Anc Procedures: 92488 Ultrasonic Guidance Vascular Access Procedure 3: Cardiovascular Tx and Anc Procedures: 70726 Ultrasonic Guidance Vascular Access Moderate Sedation Procedure 1: Sedation/Anesthesia: 76049 Mod Sedation by the same physician;Init15 Min Child Age 5 & Up Procedure 2: Sedation/Anesthesia: 23381 Mod Sedation by the same physician; Ea [id number] Minutes Angioplasty Procedure 1: Cardiovascular Angioplasty Procedures: 17266 PTCA; ea addl branch of a major cor art RC LC LD Stenting Procedure 1: Cardiovascular Stent Procedures: 12287 Perc transcatheter placement of intracoronary stent(s), with ang PG Care Time/CCT Total # of Minutes Spent Total Time Spent with Patient: Total time spent is greater than 50% in coordination of care (as documented) at patient's floor/unit and/or counseling patient:
[2020-01-10] MEDS ORDERED: ONDANSETRON INJ 2 MG/ML 2 ML VIAL ONE (11:54)
[2020-01-10] MEDS ORDERED: PHARMACY GLYCEMIC MGMT CONSULT SCH (12:02)
--- NOTE | 2020-01-10 14:06 | Pharmacy Report ---
Glycemic Control Consultation - Date of Service January 10, 2020 - Scope Scope: Glycemic Pharmacist consulted for glycemic control and to write orders per [facility] inpatient glycemic control protocol. - Objective Weight: 88.904 kg Accuchecks BSG (last 24hrs): 01/10/20 11:56 POC Glucose 187 H - Recent Pertinent Medications Outpatient Anti-diabetic Regimen: * Novolog 70/30: 20 units SQ AM + 30 units SQ PM * A1c = 6.3% on 12/19/2019 Risk Factors for Insulin Resistance: * Recent Surgery: * POD #0 s/p cardiac catheterization * Diet: * Heart Healthy - Assessment & Plan Assessment & Plan: ASSESSMENT: * 79 yo F admitted for cardiac catheterization today * Patient is well known to pharmacy glycemic service, will consider previous admission data to determine insulin regimen * A1c earlier this month shows good control of T2DM as outpatient * Given that patient uses Novolog 70/30 BID as outpatient, will use NPH BID inpatient to allow for easier transition upon discharge PLAN FOR INPATIENT GLYCEMIC CONTROL: * ADA & AACE recommend a goal blood sugar range 140-180 mg/dl for the majority of critically ill & non-critically ill patients. However, more stringent targets may be selected in individual cases. Will utilize more stringent goal of 120 - 150 mg/dl based on patient age & comorbidities. * Basal insulin * NPH 10 units SQ BIDM * Bolus insulin * NovoLog per scale ACHS or Q6hrs while NPO * Goal Range: Low 120 mg/dL - High 150 mg/dL * Correction Factor: 30 mg/dL/unit * Nutritional / Prandial insulin per carb ratio of 1 unit per 10 grams CHO consumed * Please note that the plan above was derived based on current level of insulin resistance and hospital stress. These recommendations are appropriate for inpatient admission only. Plan of care upon discharge will need to be reassessed to avoid potential outpatient hypo/hyperglycemia. Thank you.
[2020-01-10] MEDS ORDERED: DIGOXIN 0.125 MG TAB PO SCH (16:00)
--- NOTE | 2020-01-10 16:01 | Electrocardiogram Report ---
Test Reason : Blood Pressure : / mmHG Vent. Rate : 063 BPM Atrial Rate : 063 BPM P-R Int : 244 ms QRS Dur : 154 ms QT Int : 462 ms P-R-T Axes : 000 016 185 degrees QTc Int : 472 ms Atrial-paced rhythm with prolonged AV conduction Left bundle branch block Abnormal ECG When compared with ECG of 18-DEC-2019 16:11, No significant change was found Confirmed by Petey Sanchez ([id number]) on 01/10/2020 4:01:05 PM Referred By: Pascual Bateman Confirmed By:Jr Sanchez
[2020-01-10] MEDS: INSULIN ASPART 100 UNITS/ML 3 ML PEN SC SCH ×2 (16:50→21:12)
[2020-01-10] MEDS: INSULIN HUMAN NPH SC SCH (16:51)
[2020-01-10] MEDS ORDERED: MAGNESIUM OXIDE 400 MG TAB PO SCH (21:00)
[2020-01-10] MEDS ORDERED: carvediloL 6.25 MG TAB PO SCH (21:00)
[2020-01-10] MEDS ORDERED: AMIODARONE 200 MG TAB PO SCH (21:00)
[2020-01-10] MEDS: carvediloL 3.125 MG TAB PO SCH (21:10)
[2020-01-10] MEDS: BUMETANIDE 1 MG TAB PO SCH (21:11)
[2020-01-10] MEDS: RANOLAZINE 500 MG ER TAB PO SCH (21:11)
[2020-01-10] MEDS: TICAGRELOR 90 MG TAB PO SCH (21:12)
[2020-01-11] MEDS ORDERED: LEVOTHYROXINE SODIUM 75 MCG TABLET PO SCH (06:30)
[2020-01-11 06:36] LABS: Basophils # (auto) 0.04 K/uL (0-0.2); Basophils % (auto) 0.5 %; Eosinophils # (auto) 0.11 K/uL (0-0.5); Eosinophils % (auto) 1.5 %; Hematocrit (blood only) 34.8 % (37-47); Hemoglobin 10.9 g/dL (12.0-16.0); Immature Granulocytes # (auto) 0.02 K/uL (0.00-0.02); Immature Granulocytes % (auto) 0.3 %; Lymphocytes # (auto) 1.77 K/uL (1.2-3.4); Lymphocytes % (auto) 23.4 %; Mean Corpuscular Hemoglobin 31.7 pg (25-34); Mean Corpuscular Hgb Conc 31.3 g/dL (32-36); Mean Corpuscular Volume 101.2 fL (80-100); Mean Platelet Volume 10.8 fL (7.4-10.4); Monocytes # (auto) 0.92 K/uL (0.11-0.59); Monocytes % (auto) 12.2 %; Neutrophils % (auto) 62.1 %; Platelet Count 258 K/uL (130-400); RDW Coefficient of Variation 13.1 % (11.5-14.5); Red Blood Count 3.44 M/uL (4.2-5.4); White Blood Count 7.56 K/uL (4.8-10.8)
[2020-01-11 07:00] LABS: BUN Creatinine Ratio 14.5 (10-20); Calcium 8.8 mg/dl (8.5-10.1); Creatinine Clr Calc Pharmacy 23.6 ml/min; Est GFR (African American) 25.9; Est GFR (Non-African American) 22.3
[2020-01-11] MEDS: TICAGRELOR 90 MG TAB PO SCH (07:55)
[2020-01-11] MEDS: RANOLAZINE 500 MG ER TAB PO SCH (07:55)
[2020-01-11] MEDS: BUMETANIDE 1 MG TAB PO SCH (07:56)
[2020-01-11] MEDS: carvediloL 3.125 MG TAB PO SCH (07:57)
[2020-01-11] MEDS: INSULIN ASPART 100 UNITS/ML 3 ML PEN SC SCH (07:57)
[2020-01-11] MEDS: INSULIN HUMAN NPH SC SCH (07:57)
[2020-01-11] MEDS ORDERED: APIXABAN 2.5 MG TAB PO SCH (09:00)
[2020-01-11] MEDS ORDERED: ASPIRIN 81 MG ECTAB PO SCH (09:00)
[2020-01-11] MEDS ORDERED: MULTIVITAMIN TAB PO SCH (09:00)
--- NOTE | 2020-01-11 10:00 | Pharmacy Report ---
Glycemic Control Progress Note - Date of Service January 11, 2020 - Scope Glycemic Pharmacist consulted for glycemic control to write orders per [facility] inpatient glycemic control protocol. - Objective Accuchecks BSG(last 24 hours):: 01/10/20 01/10/20 01/10/20 11:56 16:24 20:46 Glucose POC Glucose 187 H 167 H 112 H 01/11/20 01/11/20 01/11/20 03:25 05:46 07:29 Glucose 126 H POC Glucose 107 H 114 H - Recent Pertinent Medications The patient is currently receiving: * Basal insulin: NPH 10 units BIDM * Correctional Insulin: Novolog Correction per scale ACHS Goal Range: Low 120 mg/dL - High 150 mg/dL Correction Factor: 30 mg/dL/unit * Prandial insulin: Per carb ratio of 1 unit per 10 grams CHO consumed - Outpatient Anti-Diabetic Meds Novolog 70/30 - 20 units in the morning and 30 units in the evening - Assessment & Plan ASSESSMENT: * See progress note from 01/10/2020 for more background info, in short: * Pt receiving SQ basal bolus insulin regimen for hyperglycemia secondary to baseline DM (outpatient regimen on hold). * Patient is currently receiving an average of 13 units of insulin per day * 10 units of basal insulin * 3 units of prandial/correctional insulin * BSGs ranging 112 - 187 mg/dl over the past 24hrs * Changes needed to insulin regimen: * AM Fasting BSG = 114 mg/dl. This is in goal range for patient based on inpatient targets and co-morbidities. Based upon previous data, the patient ends up requiring around 20-25 units/day. Will reduce basal insulin. * Post-prandial BSGs are in range therefore no changes needed to CF/CR. * Total daily dose = ~25 units. Decreased basal appropriately. PLAN FOR INPATIENT GLYCEMIC CONTROL: * Decreasing NPH to 5 units SQ BIDM (10 units if BSG > 160 mg/dL) * Continuing correction factor to 30 mg/dl/unit * Continuing carb ratio of 1 unit per 10 grams CHO consumed * Continuing goal range of Low 120 mg/dL - High 150 mg/dL * Please note that the plan above was derived based on current level of insulin resistance and hospital stress. These recommendations are appropriate for inpatient admission only. Plan of care upon discharge will need to be reassessed to avoid potential outpatient hypo/hyperglycemia. Thank you.
[2020-01-11] MEDS ORDERED: ENOXAPARIN INJ 40 MG/0.4 ML SYR SQ SCH (10:45)
[2020-01-11] MEDS ORDERED: INSULIN HUMAN NPH SC SCH (17:00)
--- NOTE | 2020-01-11 19:22 | Discharge Summary ---
Date of Service January 11, 2020 Admission HPI Per Admitting Provider Mrs. Barry is an 79 year old female with complex medical history including coronary artery disease post numerous PCI most recently with NATY to ostial RCA 12/18/2019, ischemic cardiomyopathy, chronic systolic CHF, paroxysmal atrial flutter, diabetes mellitus, CKD, hypothyroidism, carotid artery stenosis s/p bilateral carotid endarterectomies, LE peripheral arterial disease, symptomatic sinus bradycardia s/p dual-chamber pacemaker implantation and severe aortic stenosis post Marlee 3 TAVR 10/2019. She represented for planned PCI of her ostial left main in the setting of accelerating angina. Specialty Data Cardiology Cardiac catheterization/PCI 01/10/2020: 1. Severe ostial left main stenosis 2. Moderate residual ostial circumflex, OM1 disease 3. Widely patent ostial RCA, LAD and mid circumflex stents 4. Successful PCI of ostial left main with single drug-eluting stent (4.0 x 12 mm Xience Jewell). 5. Post dilation of proximal circumflex stent with 3.25 NC 6. Angioplasty of ostial OM1 through stent struts with 2.5 balloon Discharge Data Procedures Performed Operation Date: 01/10/20 08:00 Actual Procedures p Drug Eluting Stent SGl Vessel - Pascual Bateman MD s Cath, Left w/Cors Vent Grafts - Pascual Bateman MD s IVUS Coronary Single Vessel - Pascual Bateman MD Hospital Course (1) CAD (coronary artery disease): Procedure initially attempted via left ulnar artery but unable to reach heart due to left proximal subclavian artery occlusion. Remainder procedure via left common femoral artery. Diagnostic angiography revealed widely patent ostial RCA stent as well as patent LAD and circumflex stents. Ostial/proximal circumflex stent noted to have a moderate stenosis. Ostium of left main with severe 70% stenosis. Patient underwent repeat PCI with angioplasty to her prior proximal circumflex stent and first obtuse marginal. Then a drug-eluting stent was placed to the ostium of her left main. Immediate post procedure course complicated by mild dyspnea/pulmonary edema which responded to IV Lasix. Developed a hematoma at left ulnar artery access site requiring prolonged compression. She was admitted to telemetry service for observation. She remained chest pain- free. Breathing symptoms improved. She had no significant arrhythmia on telemetry. On hospital day 2 she had a residual hematoma at her left ulnar access site but distal perfusion/sensation intact. On post procedure labs creatinine up from 1.6-2.05. Hemoglobin stable. She was discharged home on hospital day 2. Plan for repeat BMP in 3 days. Telehealth visit in 2 weeks. Home on triple therapy with aspirin, ticagrelor, Eliquis for 1 week. Then discontinue aspirin and continue on prior ticagrelor, Eliquis. Discharge Instructions Home Medications garlic 1,000 mg capsule 1,000 mg PO QAM #30 cap 04/01/19 [Rx Confirmed 01/10/20] magnesium oxide 400 mg PO QPM #90 cap 04/01/19 [Rx Confirmed 01/10/20] vitamin E 400 unit capsule 400 unit PO DAILY #90 cap 04/01/19 [Rx Confirmed 01/10/20] multivitamin 1 tab PO DAILY 05/19/19 [History Confirmed 01/10/20] potassium chloride 20 mEq tablet,extended release 20 meq PO BID tab 05/19/19 [History Confirmed 01/10/20] cholecalciferol (vitamin D3) 25 mcg (1,000 unit) capsule 1,000 units PO DAILY 06/06/19 [History Confirmed 01/10/20] albuterol sulfate 90 mcg/actuation aerosol inhaler 2 puff INHALATION Q6H PRN #8 gm 06/11/19 [Rx Confirmed 01/10/20] bumetanide 1 mg tablet 1 mg PO BID #90 tab 09/09/19 [Rx Confirmed 01/10/20] ranolazine 1,000 mg tablet,extended release,12 hr 1,000 mg PO BID #180 tab 09/27/19 [Rx Confirmed 01/10/20] insulin syringe-needle U-100 0.3 mL 31 gauge x 02/28" See Rx Instructions .ROUTE .COMPLEX #100 unspecified 09/30/19 [Rx Confirmed 01/10/20] pantoprazole 40 mg PO DAILY PRN 10/03/19 [History Confirmed 01/10/20] digoxin 0.125 mg PO MoTuFr@1600 #0 tab 10/04/19 [Rx Confirmed 01/10/20] apixaban 2.5 mg tablet 2.5 mg PO BID #60 tab 10/18/19 [Rx Confirmed 01/10/20] blood sugar diagnostic 1 strip MISCELLANEOUS TID #100 ea 01/22/20 [Rx Confirmed 01/10/20] levothyroxine 75 mcg tablet 75 mcg PO DAILY #90 tab 12/09/19 [Rx Confirmed 01/10/20] ticagrelor 90 mg tablet 90 mg PO BID 12/11/19 [History Confirmed 01/10/20] carvedilol 6.25 mg tablet 9.375 mg PO BID #90 tab 12/13/19 [Rx Confirmed 01/10/20] ondansetron HCl 8 mg tablet 8 mg PO Q8H #30 tab 12/13/19 [Rx Confirmed 01/10/20] amiodarone 200 mg tablet 200 mg PO QPM #90 tab 12/16/19 [Rx Confirmed 01/10/20] trazodone 50 mg tablet 50 mg PO DAILY #30 tab 01/02/20 [Rx Confirmed 01/10/20] aspirin 81 mg PO QAM 7 Days #7 tab 01/11/20 [Rx] insulin asp prt-insulin aspart [Novolog Mix 70-30 U-100 Insuln] 50 units SUBCUT AMPM #30 ml 01/11/20 [Rx Confirmed 01/10/20] Coding Level of Care Code 95192 OBS Care - Discharge Diagnoses CAD (coronary artery disease) I25.10
== END 2020-01-11 12:52 | disposition home or self-care (01) ==
LOC: 2S 06:49 → CC 06:49

== ENCOUNTER 2020-03-29 01:29 | Inpatient (IN) ==
--- NOTE | 2020-03-29 01:59 | Emergency Department Note ---
Impression & Plan Hypoxia, CHF (congestive heart failure), UTI (urinary tract infection), Vomiting ED Provider Note NAME: ERIC ROLDAN AGE: 79 SEX: F ARRIVES VIA: Ambulance INFORMANT: Patient ED PROVIDER(S): Dorina Lacey DO CHIEF COMPLAINT: Shortness of breath and vomiting PLAN: Disposition: Evaluated for admission by the [facility] hospitalist group Condition: Stable MEDICAL DECISION MAKING: This is a an 79-year-old female patient presents emergency department with worsening shortness of breath over the past 24 hours. The patient had a chest x-ray performed on Monday which showed evidence of fluid in the base of both of her lungs. The patient had suffered some trauma to her right lower extremity for which she had an ultrasound to rule out DVT. This was negative. She was also diagnosed with a UTI at that time and started on Bactrim. The patient has been taking the antibiotic but does not think that it agrees with her as she has been having some vomiting. Over the past 12 hours, the patient has had sign ificant increased shortness of breath especially with exertion. EMS was called and found her to have O2 saturations in the mid to high 80s. They started her on supplemental O2 which did seem to improve her symptoms. The patient admits that she does have episodes of congestive heart failure every 2 to 3 months. The patient's right calf is much larger than the left calf. However, she did undergo ultrasound to rule out DVT just 2 days ago. The patient had no further episodes of vomiting while here in the emergency department. She felt much better on the supplemental oxygen. Because of her hypoxia, I felt she would require admission to the hospital for diuresis. She was very comfortable on a nasal cannula. The patient did have an elevated troponin but an EKG that was unchanged. Triage Nursing notes reviewed and agree them. Prior medical records reviewed Vital Signs: reviewed and remarkable for hypertension and tachypnea Differential diagnosis: Pleural effusions, hypoxia, CHF, STEMI, medication side effects, sepsis Diagnostics interpreted by me: ECG: Atrial paced rhythm at 85 with a left bundle branch block. This was compared to an EKG from December 2019 and is unchanged Cardiac Monitoring: Atrial paced rhythm at 66 Laboratory studies: See below Imaging studies: As per my interpretation Chest [id number] in place; moderate bilateral pleural effusions with the right that is greater than the left. This is in comparison to a chest x-ray from the and it seems to be slightly worse. HPI: 79/F arrives for evaluation of shortness of breath. The patient has had worsening shortness of breath over the past 12 hours. EMS was called and found her to have O2 saturations in the mid to high 80s. They started her on supplemental oxygen which did seem to give her some improvement. The patient admits that she has episodes of congestive heart failure every 2 to 3 months. The patient suffered a fall earlier in the week which caused abrasions and contusions to the right mid tib-fib region of her right lower extremity. She had moderate edema to that leg. They did an ultrasound of the leg on Monday which revealed no evidence of a DVT. During her visit on Monday, the patient gave a urine specimen was found to have a UTI. They started her on Bactrim. She has developed some nausea and vomiting and believes this may be secondary to the Bactrim. ROS: See above HPI for pertinent positives & negatives. A total of 10 systems reviewed and were otherwise negative. PAST MEDICAL HISTORY:See Below PAST SURGICAL HISTORY:See Below FAMILY HISTORY:See Below SOCIAL HISTORY:See Below HOME MEDICATIONS:See list ALLERGIES:See list VITALS:See Below PHYSICAL EXAMINATION: HEENT: Head - normocephalic and atraumatic Pupils are equal, round, and reactive to light. Extraocular eye muscles are intact, and sclera are anicteric. Nose - moist nasal mucosa without discharge. Mouth - moist buccal mucosa. Oropharynx is nonerythematous and there is no tonsillar exudate or rama a noted. Neck: Supple; no JVD, nuchal rigidity, cervical lymphadenopathy, or auscultated bruits. Heart: Regular rate and rhythm. There is a normal S1 and S2 with no murmurs, clicks, or gallops appreciated. Lungs: Diminished breath sounds in all lung humphries. Abdomen: Soft, completely nontender, nondistended, with good bowel sounds. There are no palpable pulsatile masses or hepatosplenomegaly. There is no guarding, rigidity, or rebound noted. Extremities: Right lower extremity: Patient has significant hematoma and ecchymosis of the right tib-fib region with a small area of abrasion to the ant erior aspect of the mid tib-fib. There is some slight redness and warmth to that area as well. The overall diameter of the right calf is much larger than the left calf. Skin: warm and dry with good turgor and no rashes. ED COURSE: Times/Reassessments: 0135: The patient was evaluated in room C 12. A complete history and physical was performed. Previous electronic medical records from Monday were reviewed. An IV lock was initiated and labs were drawn as above. A twelve-lead EKG was obtained as described above. An order was placed for continuous cardiac monitoring. The patient remained in atrial paced rhythm at a rate of 85. 0315: I reevaluated the patient. She was resting comfortably. O2 saturations were 94% on supplemental oxygen. I reviewed the results of the chest x-ray and laboratory studies. I explained to the patient that she was having other episode of congestive heart failure and that the chest x-ray seem to be slightly worse than Monday's x-ray. Because of the hypoxia, I explained that she would require admission into the hospital. The [facility] hospitalist group would evaluate the patient. I have personally spent greater than 30 minutes of critical care time in the direct management of this patient. This includes bedside care, interpretation of diagnostic studies, and testing, discussion with consultants, patient, and family members, and other required patient management activities. This 30 minutes is in excess of all separately billable procedures. 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 Seatbelt Use: always Sunscreen Use: No Allergies Allergies Allergy/AdvReac Type Severity Reaction Status Date / Time adhesive Allergy Unknown REDNESS Verified 03/27/20 10:20 AND IRRITATION FROM PAIN PATCH, TAPE dulaglutide [From Hernandez] Allergy Unknown Unknown Verified 03/27/20 10:20 exenatide [From Byetta] Allergy Unknown Unknown Verified 03/27/20 10:20 glipizide Allergy Unknown Unknown Verified 03/27/20 10:20 glyburide Allergy Unknown Unknown Verified 03/27/20 10:20 latex Allergy Unknown ALLERGIC Verified 03/27/20 10:20 TO LATEX TAPE/RASH/ITCHING metformin Allergy Unknown Unknown Verified 03/27/20 10:20 morphine Allergy Unknown swelling Verified 03/27/20 10:20 nausea vomiting olmesartan Allergy Unknown UNKNOWN Verified 03/27/20 10:20 sitagliptin [From Januvia] Allergy Unknown Unknown Verified 03/27/20 10:20 aspirin AdvReac Mild GI SYMPTOMS Verified 03/27/20 10:20 ezetimibe AdvReac Mild MUSCLE Verified 03/27/20 10:20 ACHES lisinopril AdvReac Unknown LIGHTHEADED Verified 03/27/20 10:20 AND DIZZY pioglitazone AdvReac Unknown DIARRHEA Verified 03/27/20 10:20 NAUSEA [id number] Reductase AdvReac Unknown myalgias Verified 03/27/20 10:20 Inhibitor and weakness benzonatate AdvReac confusion Verified 03/27/20 10:20 [From Giovanni Brennan] Home Meds Home Medications Medication Instructions Recorded Confirmed multivitamin 1 tab PO QAM 05/19/19 03/29/20 potassium chloride 20 mEq 20 meq PO QAM tab 05/19/19 03/29/20 tablet,extended release cholecalciferol (vitamin D3) 25 1,000 units PO QAM 06/06/19 03/29/20 mcg (1,000 unit) capsule ondansetron HCl [Zofran] 8 mg PO Q8H PRN 03/29/20 03/29/20 polyethylene glycol 3350 [Miralax] 17 g PO HS 03/29/20 03/29/20 ranolazine 500 mg PO BID 03/29/20 03/29/20 sulfamethoxazole-trimethoprim 1 tab PO BID 03/29/20 03/29/20 trazodone 50 mg PO HS 03/29/20 03/29/20 vitamin E 400 unit PO QAM 03/29/20 03/29/20 Previous Rx's Medication Instructions Recorded garlic 1,000 mg capsule 1,000 mg PO QAM #30 cap 04/01/19 magnesium oxide 400 mg PO QPM #90 cap 04/01/19 albuterol sulfate 90 mcg/actuation 2 puff INHALATION Q6H PRN #8 gm 06/11/19 aerosol inhaler insulin syringe-needle U-100 0.3 See Rx Instructions .ROUTE 09/30/19 mL 31 gauge x 02/28" .COMPLEX #100 unspecified apixaban 2.5 mg tablet 2.5 mg PO BID #60 tab 10/18/19 blood sugar diagnostic 1 strip MISCELLANEOUS TID #100 ea 11/06/19 levothyroxine 75 mcg tablet 75 mcg PO DAILY #90 tab 12/09/19 amiodarone 200 mg tablet 200 mg PO QPM #90 tab 12/16/19 insulin asp prt-insulin aspart 50 units SUBCUT AMPM #30 ml 01/11/20 [Novolog Mix 70-30 U-100 Insuln] carvedilol 3.125 mg tablet 3.125 mg PO BID #90 tab 01/28/20 carvedilol 6.25 mg tablet 6.25 mg PO BID #135 tab 01/28/20 digoxin 125 mcg (0.125 mg) tablet 125 mcg PO .COMPLEX #36 tab 02/24/20 pantoprazole 40 mg tablet,delayed 40 mg PO DAILY PRN #90 tab 02/24/20 release bumetanide 1 mg tablet 1 mg PO BID #180 tab 03/16/20 ticagrelor 90 mg tablet 90 mg PO BID #180 tab 03/16/20 Results & Data (ED) Vital Signs Vital Signs - 24 hr 03/29/20 01:38 03/29/20 01:45 03/29/20 01:52 Temperature 36.8 C Temperature Source Oral Pulse Rate 85 Pulse Rate [Finger] Pulse Rate from SpO2 Sensor 80 Respiratory Rate 22 Respiratory Effort / Characteristics Non-Labored Spontaneous Blood Pressure 162/72 H 162/72 H Blood Pressure [Left Arm] Blood Pressure Mean 120 102 Blood Pressure Mean [Left Arm] Blood Pressure Position Sitting Pulse Oximetry 93 88 L Oxygen Delivery Method Nasal Cannula Room Air Nasal Cannula Oxygen Flow Rate 2 2 Sepsis Recent Fever Within 48 Hours No Sepsis Action Taken by Nursing No Action Required 03/29/20 02:00 03/29/20 02:33 03/29/20 03:00 Temperature Temperature Source Pulse Rate 70 78 66 Pulse Rate [Finger] Pulse Rate from SpO2 Sensor 71 78 65 Respiratory Rate 21 23 22 Respiratory Effort / Characteristics Blood Pressure 180/81 H 170/81 H 166/78 H Blood Pressure [Left Arm] Blood Pressure Mean 110 121 110 Blood Pressure Mean [Left Arm] Blood Pressure Position Pulse Oximetry 94 95 96 Oxygen Delivery Method Nasal Cannula Nasal Cannula Nasal Cannula Oxygen Flow Rate 2 2 2 Sepsis Recent Fever Within 48 Hours Sepsis Action Taken by Nursing 03/29/20 04:35 03/29/20 04:41 Temperature Temperature Source Pulse Rate Pulse Rate [Finger] 65 Pulse Rate from SpO2 Sensor Respiratory Rate 25 H 25 H Respiratory Effort / Characteristics Blood Pressure Blood Pressure [Left Arm] 178/96 H Blood Pressure Mean Blood Pressure Mean [Left Arm] 123 Blood Pressure Position Pulse Oximetry 95 95 Oxygen Delivery Method Nasal Cannula Nasal Cannula Oxygen Flow Rate 2 2 Sepsis Recent Fever Within 48 Hours Sepsis Action Taken by Nursing Laboratory Data Result diagrams: 03/29/20 01:50 03/29/20 01:50 Lab Results 03/29/20 03/29/20 03/29/20 Range/Units 01:50 01:50 01:50 WBC 11.58 H (4.8-10.8) K/uL RBC 3.68 L (4.2-5.4) M/uL Hgb 11.4 L (12.0-16.0) g/dL Hct 36.5 L (37-47) % MCV 99.2 (80-100) fL MCH 31.0 (25-34) pg MCHC 31.2 L (32-36) g/dL RDW Std Deviation 52.9 H (36.4-46.3) fL RDW Coeff of Manuela 14.7 H (11.5-14.5) % Plt Count 310 (130-400) K/uL MPV 10.6 H (7.4-10.4) fL Immature Gran % (Auto) 0.3 % Neut % (Auto) 81.5 % Lymph % (Auto) 8.3 % Dade % (Auto) 9.2 % Eos % (Auto) 0.5 % Baso % (Auto) 0.2 % Immature Gran # (Auto) 0.03 H (0.00-0.02) K/uL Neut # (Auto) 9.44 H (1.4-6.5) K/uL Lymph # (Auto) 0.96 L (1.2-3.4) K/uL Dade # (Auto) 1.07 H (0.11-0.59) K/uL Eos # (Auto) 0.06 (0-0.5) K/uL Baso # (Auto) 0.02 (0-0.2) K/uL PT 11.5 (9.0-12.0) Seconds INR 1.1 (0.9-1.1) APTT 30.9 (21.0-31.0) Seconds PTT Ratio 1.1 Sodium 136 (136-145) mmol/L Potassium 4.3 (3.5-5.1) mmol/L Chloride 100 (98-107) mmol/L Carbon Dioxide 28 (21-32) mmol/L Anion Gap 8.0 (3-11) BUN 37 H (7-18) mg/dl Creatinine 2.02 H (0.6-1.2) mg/dl Est Cr Clr Drug Dosing 24.9 ml/min Est GFR ( Amer) 26.3 Est GFR (Non-Af Amer) 22.7 BUN/Creatinine Ratio 18.2 (10-20) Glucose 145 H (70-99) mg/dl POC Glucose (70-99) mg/dl Calcium 8.8 (8.5-10.1) mg/dl Total Bilirubin 0.4 (0.2-1) mg/dl AST 18 (15-37) U/L ALT 31 (12-78) U/L Alkaline Phosphatase 137 H (45-117) U/L Troponin I 0.151 H* (0-0.045) ng/ml Total Protein 8.0 (6.4-8.2) gm/dl Albumin 3.1 L (3.4-5.0) gm/dl Globulin 4.9 H (2.5-4.0) gm/dl Albumin/Globulin Ratio 0.6 L (0.9-2) TSH 2.540 (0.300-4.500) uIu/ml Digoxin (0.8-2.0) ng/ml 03/29/20 03/29/20 Range/Units 01:50 02:32 WBC (4.8-10.8) K/uL RBC (4.2-5.4) M/uL Hgb (12.0-16.0) g/dL Hct (37-47) % MCV (80-100) fL MCH (25-34) pg MCHC (32-36) g/dL RDW Std Deviation (36.4-46.3) fL RDW Coeff of Manuela (11.5-14.5) % Plt Count (130-400) K/uL MPV (7.4-10.4) fL Immature Gran % (Auto) % Neut % (Auto) % Lymph % (Auto) % Dade % (Auto) % Eos % (Auto) % Baso % (Auto) % Immature Gran # (Auto) (0.00-0.02) K/uL Neut # (Auto) (1.4-6.5) K/uL Lymph # (Auto) (1.2-3.4) K/uL Dade # (Auto) (0.11-0.59) K/uL Eos # (Auto) (0-0.5) K/uL Baso # (Auto) (0-0.2) K/uL PT (9.0-12.0) Seconds INR (0.9-1.1) APTT (21.0-31.0) Seconds PTT Ratio Sodium (136-145) mmol/L Potassium (3.5-5.1) mmol/L Chloride (98-107) mmol/L Carbon Dioxide (21-32) mmol/L Anion Gap (3-11) BUN (7-18) mg/dl Creatinine (0.6-1.2) mg/dl Est Cr Clr Drug Dosing ml/min Est GFR ( Amer) Est GFR (Non-Af Amer) BUN/Creatinine Ratio (10-20) Glucose (70-99) mg/dl POC Glucose 183 H (70-99) mg/dl Calcium (8.5-10.1) mg/dl Total Bilirubin (0.2-1) mg/dl AST (15-37) U/L ALT (12-78) U/L Alkaline Phosphatase (45-117) U/L Troponin I (0-0.045) ng/ml Total Protein (6.4-8.2) gm/dl Albumin (3.4-5.0) gm/dl Globulin (2.5-4.0) gm/dl Albumin/Globulin Ratio (0.9-2) TSH (0.300-4.500) uIu/ml Digoxin 1.3 (0.8-2.0) ng/ml Administered Medications Discontinued Medications Furosemide (Lasix) 40 mg IV NOW STA Stop: 03/29/20 04:14 Last Admin: 03/29/20 04:29 Dose: 40 mg Documented by: [id number] Discharge Plan Visit Data Chief Complaint: Shortness of Breath/Dyspnea Stated Complaint: SHORT OF BREATH/UTI SYMPTOMS Other Complaint: Urinary Symptoms ED Provider: Dorina Lacey Discharge Problem: Hypoxia, CHF (congestive heart failure), UTI (urinary tract infection), Vo miting Discharge Instructions Interventions: ED Discharge Assessment Last Done: 03/29/20 04:41 Forms Stand Alone Forms: [employer] [place] [employer] Prescriptions Prescriptions: No Action insulin syringe-needle U-100 0.3 mL 31 gauge x 5/16" syringe See Rx Instructions .ROUTE .COMPLEX Qty: 100 RF: 9 Eliquis 2.5 mg tablet 2.5 mg PO BID Qty: 60 RF: 11 OneTouch Verio test strips Strip 1 strip miscellaneous TID Qty: 100 RF: 3 levothyroxine 75 mcg tablet 75 mcg PO DAILY Qty: 90 RF: 3 amiodarone 200 mg tablet 200 mg PO QPM Qty: 90 RF: 3 carvedilol 3.125 mg tablet 3.125 mg PO BID Qty: 90 RF: 3 carvedilol 6.25 mg tablet 6.25 mg PO BID Qty: 135 RF: 3 pantoprazole 40 mg tablet,delayed release (DR/EC) 40 mg PO DAILY PRN (Reason: Stomach Upset) Qty: 90 RF: 3 digoxin 125 mcg (0.125 mg) tablet 125 mcg PO .COMPLEX Qty: 36 RF: 3 garlic 1,000 mg capsule 1,000 mg PO QAM Qty: 30 RF: 0 magnesium oxide 400 mg magnesium capsule 400 mg PO QPM Qty: 90 RF: 0 albuterol sulfate 90 mcg/actuation HFA aerosol inhaler 2 puff INHALATION Q6H PRN (Reason: Shortness Of Breath Or Wheezing) Qty: 8 RF: 1 potassium chloride 20 mEq tablet extended release 20 meq PO QAM RF: 0 cholecalciferol (vitamin D3) 1,000 unit capsule 1,000 units PO QAM RF: 0 bumetanide 1 mg tablet 1 mg PO BID Qty: 180 RF: 3 Brilinta 90 mg tablet 90 mg PO BID Qty: 180 RF: 1 multivitamin [Multiple Vitamins] tablet 1 tab PO QAM RF: 0 ondansetron HCl [Zofran] 8 mg tablet 8 mg PO Q8H PRN (Reason: Nausea) RF: 0 ranolazine 500 mg tablet extended release 12 hr 500 mg PO BID RF: 0 trazodone 50 mg tablet 50 mg PO HS RF: 0 vitamin E 400 unit capsule 400 unit PO QAM RF: 0 sulfamethoxazole-trimethoprim 400-80 mg tablet 1 tab PO BID RF: 0 polyethylene glycol 3350 [Miralax] 17 gram/dose Powder 17 g PO HS RF: 0 insulin asp prt-insulin aspart [Novolog Mix 70-30 U-100 Insuln] 100 unit/mL (70-30) solution 50 units SUBCUT AMPM Qty: 30 RF: 5 Referrals Referrals: Boby Reddy MD [Primary Care Provider] - Discharge Problem: CHF (congestive heart failure) Qualifiers: Heart failure type: unspecified Heart failure chronicity: acute on chronic Qualified Code(s): I50.9 - Heart failure, unspecified UTI (urinary tract infection) Qualifiers: Urinary tract infection type: site unspecified Hematuria presence: without hematuria Qualified Code(s): N39.0 - Urinary tract infection, site not specified Vomiting Qualifiers: Vomiting type: unspecified Vomiting Intractability: non-intractable Nausea presence: with nausea Qualified Code(s): R11.2 - Nausea with vomiting, unspecified
[2020-03-29 02:22] LABS: Basophils # (auto) 0.02 K/uL (0-0.2); Basophils % (auto) 0.2 %; Eosinophils # (auto) 0.06 K/uL (0-0.5); Eosinophils % (auto) 0.5 %; Hematocrit (blood only) 36.5 % (37-47); Hemoglobin 11.4 g/dL (12.0-16.0); Immature Granulocytes # (auto) 0.03 K/uL (0.00-0.02); Immature Granulocytes % (auto) 0.3 %; Lymphocytes # (auto) 0.96 K/uL (1.2-3.4); Lymphocytes % (auto) 8.3 %; Mean Corpuscular Hgb Conc 31.2 g/dL (32-36); Mean Corpuscular Volume 99.2 fL (80-100); Mean Platelet Volume 10.6 fL (7.4-10.4); Monocytes # (auto) 1.07 K/uL (0.11-0.59); Monocytes % (auto) 9.2 %; Neutrophils # (auto) 9.44 K/uL (1.4-6.5); Neutrophils % (auto) 81.5 %; Platelet Count 310 K/uL (130-400); RDW Coefficient of Variation 14.7 % (11.5-14.5); RDW Standard Deviation 52.9 fL (36.4-46.3); Red Blood Count 3.68 M/uL (4.2-5.4); White Blood Count 11.58 K/uL (4.8-10.8)
[2020-03-29 02:34] LABS: INR 1.1 (0.9-1.1); Partial Thromboplastin Ratio 1.1; Partial Thromboplastin Time 30.9 Seconds (21.0-31.0); Prothrombin Time 11.5 Seconds (9.0-12.0)
[2020-03-29 02:49] LABS: Albumin Level 3.1 gm/dl (3.4-5.0); BUN Creatinine Ratio 18.2 (10-20); Calcium 8.8 mg/dl (8.5-10.1); Creatinine Clr Calc Pharmacy 24.9 ml/min; Est GFR (African American) 26.3; Est GFR (Non-African American) 22.7; Potassium 4.3 mmol/L (3.5-5.1)
[2020-03-29 03:04] LABS: Albumin Globulin Ratio 0.6 (0.9-2); Bilirubin,Total 0.4 mg/dl (0.2-1); Globulin 4.9 gm/dl (2.5-4.0); Troponin I 0.151 ng/ml (0-0.045)
[2020-03-29 03:43] LABS: Thyroid Stimulating Hormone 2.54 uIu/ml (0.300-4.500)
[2020-03-29] MEDS ORDERED: MAGNESIUM HYDROXIDE SUSP 30 ML UDC PO PRN (04:10)
[2020-03-29] MEDS ORDERED: ONDANSETRON INJ 2 MG/ML 2 ML VIAL IV PRN (04:10)
[2020-03-29] MEDS ORDERED: FUROSEMIDE 40 MG/4 ML VIAL IV STA (04:13)
--- NOTE | 2020-03-29 04:24 | History & Physical Report ---
Date of Service March 29, 2020 Assessment & Plan (1) CHF (congestive heart failure): Ms. Barry is an 79yo with a PMHx of CAD s/p [place] with stent placement, severe aortic stenosis s/p TAVR, ischemic cardiomyopathy with EF 25-30%, biventricular CHF, pacer for Hx of sinus bradycardia, CKD, atrial fibrillation and atrial flutter, prior DVT, ?COPD/asthma, peripheral artery disease, GERD, DMII, HLD and HTN who presents with CHF exacerbation. Acute on Chronic Congestive Heart Failure -Pt with SOB requiring 2L oxygen supplementation -Does not use oxygen at baseline -chest XR with progression of pulm congestion, cephalization of vessels from March 27 -Echo 11/2019 with EF 25-30%, Grade II diastolic dysfunction, and septal abnormality. -repeat echo ordered to determine whether any acute changes -IV Lasix 40mgx 1 on admission -continue with IV Bumex 1mg BID- consider limiting use given Cr function. Holding home PO Bumex. -consider tapping/possible thoracentesis for further benefit -scheduled duonebs for wheezing, hold home albuterol Elevated Troponins -elevated to 0.151 on admission -Likely due to demand ischemia -has chronic trop elevation -will continue with q6h trend UTI -pt with UTI diagnosed by PCP on March 27 -Urine Cx growing E. coli, sensitivities pending -first dose of Bactrim prescribed by PCP was night of March 27 but caused N/V -will hold Bactrim and start on Rocephin RLE Trauma -Pt with Hx of fall and significant bruising on RLE -US/soft tissue biopsy showed a hematoma -of note pt on Eliquis for Hx of atrial fibrillation/flutter and Brilinta for Hx of stent placements (see below) -continue Eliquis and Brilinta Atrial Fibrillation/Atrial Flutter -continue with home amiodarone 200mg, digoxin 125mcg and carvedilol 9.375mg -continue home Eliquis 2.5mg BID CAD s/p stent placement -continue home Brilinta 90mg Hx of Angina -cont home ranolazine 500mg BID Hypothyroidism -continue home levothyroxine 75mcg DMII -hgbA1c of 6.4 in 03/2020 -hold home insulin -ISS while hospitalized CKD -baseline Cr of ~1.61 in December 2019 -currently elevated to 2.02 Insomnia -continue home trazodone 50mg HS Constipation -continue home Miralax as needed GERD -continue home pantoprazole 40mg daily HTN -continue carvedilol 9.375mg as above HLD -not currently on a statin FEN/GI: Low sodium, DMII diet DVT prophylaxis: continue home Eliquis CODE STATUS: Full Dispo: Med/Surg with tele History of Present Illness Primary Care Provider: Boby Reddy MD Ms. Barry is an 79yo with a PMHx of CAD s/p VT with stent placement, severe aortic stenosis s/p TAVR, ischemic cardiomyopathy with EF 25-30%, biventricular CHF, pacer for Hx of sinus bradycardia, CKD, atrial fibrillation and atrial flutter, prior DVT, ?COPD/asthma, peripheral artery disease, GERD, DMII, HLD and HTN who presents with CHF exacerbation. She states that her symptom of SOB has been persistent for at least he last week, but became intolerable recently which was why she presented to the ED. Does not use oxygen at baseline but requiring 2L here. States this is an ongoing problem for her. Allergies Allergy/AdvReac Type Severity Reaction Status Date / Time adhesive Allergy Unknown REDNESS Verified 03/27/20 10:20 AND IRRITATION FROM PAIN PATCH, TAPE dulaglutide [From Trulicity] Allergy Unknown Unknown Verified 03/27/20 10:20 exenatide [From Byetta] Allergy Unknown Unknown Verified 03/27/20 10:20 glipizide Allergy Unknown Unknown Verified 03/27/20 10:20 glyburide Allergy Unknown Unknown Verified 03/27/20 10:20 latex Allergy Unknown ALLERGIC Verified 03/27/20 10:20 TO LATEX TAPE/RASH/ITCHING metformin Allergy Unknown Unknown Verified 03/27/20 10:20 morphine Allergy Unknown swelling Verified 03/27/20 10:20 nausea vomiting olmesartan Allergy Unknown UNKNOWN Verified 03/27/20 10:20 sitagliptin [From Januvia] Allergy Unknown Unknown Verified 03/27/20 10:20 aspirin AdvReac Mild GI SYMPTOMS Verified 03/27/20 10:20 ezetimibe AdvReac Mild MUSCLE Verified 03/27/20 10:20 ACHES lisinopril AdvReac Unknown LIGHTHEADED Verified 03/27/20 10:20 AND DIZZY pioglitazone AdvReac Unknown DIARRHEA Verified 03/27/20 10:20 NAUSEA Bjzrzzu-Mat-Goi Reductase AdvReac Unknown myalgias Verified 03/27/20 10:20 Inhibitor and weakness benzonatate AdvReac confusion Verified 03/27/20 10:20 [From Giovanni Brennan] Home Medications Home Medications Medication Instructions Recorded Confirmed Type garlic 1,000 mg capsule 1,000 mg PO QAM #30 cap 04/01/19 03/29/20 Rx magnesium oxide 400 mg PO QPM #90 cap 04/01/19 03/29/20 Rx multivitamin 1 tab PO QAM 05/19/19 03/29/20 History potassium chloride 20 mEq 20 meq PO QAM tab 05/19/19 03/29/20 History tablet,extended release cholecalciferol (vitamin D3) 25 1,000 units PO QAM 06/06/19 03/29/20 History mcg (1,000 unit) capsule albuterol sulfate 90 mcg/actuation 2 puff INHALATION Q6H PRN #8 gm 06/11/19 03/29/20 Rx aerosol inhaler insulin syringe-needle U-100 0.3 See Rx Instructions .ROUTE 09/30/19 03/29/20 Rx mL 31 gauge x 02/28" .COMPLEX #100 unspecified apixaban 2.5 mg tablet 2.5 mg PO BID #60 tab 10/18/19 03/29/20 Rx blood sugar diagnostic 1 strip MISCELLANEOUS TID #100 ea 11/06/19 03/29/20 Rx levothyroxine 75 mcg tablet 75 mcg PO DAILY #90 tab 12/09/19 03/29/20 Rx amiodarone 200 mg tablet 200 mg PO QPM #90 tab 12/16/19 03/29/20 Rx insulin asp prt-insulin aspart 50 units SUBCUT AMPM #30 ml 01/11/20 03/29/20 Rx [Novolog Mix 70-30 U-100 Insuln] carvedilol 3.125 mg tablet 3.125 mg PO BID #90 tab 01/28/20 03/29/20 Rx carvedilol 6.25 mg tablet 6.25 mg PO BID #135 tab 01/28/20 03/29/20 Rx digoxin 125 mcg (0.125 mg) tablet 125 mcg PO .COMPLEX #36 tab 02/24/20 03/29/20 Rx pantoprazole 40 mg tablet,delayed 40 mg PO DAILY PRN #90 tab 02/24/20 03/29/20 Rx release bumetanide 1 mg tablet 1 mg PO BID #180 tab 03/16/20 03/29/20 Rx ticagrelor 90 mg tablet 90 mg PO BID #180 tab 03/16/20 03/29/20 Rx ondansetron HCl [Zofran] 8 mg PO Q8H PRN 03/29/20 03/29/20 History polyethylene glycol 3350 [Miralax] 17 g PO HS 03/29/20 03/29/20 History ranolazine 500 mg PO BID 03/29/20 03/29/20 History sulfamethoxazole-trimethoprim 1 tab PO BID 03/29/20 03/29/20 History trazodone 50 mg PO HS 03/29/20 03/29/20 History vitamin E 400 unit PO QAM 03/29/20 03/29/20 History Past Med/Surg History Social History Preferred Language: Bulgarian Communication Ability: Effective Visual Impairment: No Limitations Hearing Ability: Normal 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 Seatbelt Use: always Sunscreen Use: No Review of Systems Constitutional: + fatigue; no fever, no chills and no sweats Eyes: no worsening vision Ear, Nose, Mouth, Throat: no nasal congestion and no sore throat Respiratory: + dyspnea, + dyspnea on exertion and + wheezing; no cough Cardiovascular: + palpitations and + calf pain (on right due to trauma); no chest pain, no lightheadedness and no edema Gastrointestinal: no abdominal pain, no nausea, no vomiting, no constipation and no diarrhea/loose stools Genitourinary: + dysuria; no hematuria Musculoskeletal: no body aches Integumentary: + wounds (RLE redness ) Neurologic: + falls; no tingling, no numbness, no headache(s) and no confusion Psychiatric: no confusion Endocrine: no fatigue Physical Exam Physical Exam: General: Alert, oriented. In visible distress Skin: RLE extremity with redness and bruising Psych: Appropriate mood and affect Neuro: No gross deficits HEENT: NC/AT, neck retractions Chest: Nontender to palpation. CV: RRR, Blowing murmur appreciated Resp: Breath sounds with wheezing bilaterally, an increased effort of breathing. Crackles appreciated at bases bilaterally. Abdomen: Soft, nontender, nondistended. No guarding. No organomegaly appreciated. Extremities: No edema in lower extremities bilaterally. RLE with redness an bruising Results & Data Results & Data ([facility]) Vital Signs (Past 12 Hours) Vital Signs Temp Pulse Resp BP Pulse Ox 03/29/20 03:00 66 22 166/78 H 96 03/29/20 02:33 78 23 170/81 H 95 03/29/20 02:00 70 21 180/81 H 94 03/29/20 01:45 36.8 C 85 22 162/72 H 88 L 03/29/20 01:38 162/72 H 93 Code Status & VTE Plan VTE Prophylaxis Plan VTE Prophylaxis will be ordered: Yes Supervising Physician Co-Signing Physician Notes Attending addendum: I have physically seen this patient, have supervised the medical residents activities, and agree with the H&P unless as otherwise noted. Assessment and Plan: Acute on chronic systolic and diastolic CHF/right pleural effusion/status post pacer- The patient will be admitted to telemetry for serial cardiac enzymes, serial EKG's, cardiac rhythm monitoring and complete echo EF 25 to 30% on 12/05 Given Lasix 40 mg IV x1 in the ED. Convert oral Bumex 1 mg IV twice daily starting in the a.m. Has history of left paracentesis, may need to consider right paracentesis now. Troponin has been chronically elevated, at this point today is 0.151, follow was noted. UTI- E. coli with sensitivities pending from March 27. Placed on ceftriaxone 1 g IV daily. Remainder of orders and notations as noted. Resident Activity Tracking Resident Involvement: Resident Care Provided Care Provided: Adult Hospital Medicine (1) CHF (congestive heart failure) Heart failure chronicity: acute on chronic Heart failure type: unspecified Qualified Code(s): I50.9 - Heart failure, unspecified
[2020-03-29] MEDS ORDERED: GLUCOSE 10 TABS/TUBE PO PRN (05:06)
[2020-03-29] MEDS ORDERED: DEXTROSE 50% 50 ML SYRINGE IV PRN (05:06)
[2020-03-29] MEDS ORDERED: GLUCAGON FOR INJ 1 MG VIAL SQ PRN (05:06)
[2020-03-29] MEDS ORDERED: ALBUTEROL HFA 8 GM INHALER INH PRN (05:06)
[2020-03-29] MEDS ORDERED: PANTOprazole 40 MG TAB PO PRN (05:06)
[2020-03-29] MEDS ORDERED: GLUCOSE 40% GEL 15 GM TUBE PO PRN (05:06)
[2020-03-29] MEDS ORDERED: CARBOHYDRATES FOR HYPOGLYCEMIA PO PRN (05:06)
[2020-03-29] MEDS: LEVOTHYROXINE SODIUM 75 MCG TABLET PO SCH (05:47)
[2020-03-29] MEDS: cefTRIAXone SODIUM 2,000 MG in DEXTROSE 5% 50 ML IV SCH (05:48)
[2020-03-29] MEDS: ALBUT/IPRATROP 3MG/0.5MG NEB 3 ML VIAL NEB SCH ×2 (07:16→11:09)
--- NOTE | 2020-03-29 08:33 | XRay Report ---
XR chest 2V PA/lateral HISTORY: 79 years-old Female Dyspnea acute shortness of breath with cough COMPARISON: Chest radiographs 03/27/2020 TECHNIQUE: Portable AP view of the chest FINDINGS: Cardiac silhouette is enlarged. Coronary arterial stent grafts. Aortic endograft. Calcified plaque th e thoracic aortic arch. Left subclavian pacer. Emphysema. No pneumothorax. Right greater left pleural effusions with bibasilar opacities. Pulmonary vascular congestion with interstitial coarsening, slig htly progressed. Degenerative changes of the shoulders and spine. Widening of the right paratracheal tissues redemonstrated. IMPRESSION: 1. Cardiomegaly with pulmonary vascular congestion and mildly worsened interstitial coarsening sugges tive of pulmonary edema. 2. Unchanged right greater than left pleural effusions. 3. Bibasilar opacities suggest atelectasis versus pneumonitis. ACT 112: Negative or not required by law. The above report was generated using voice recognition software. It may contain grammatical, syntax o r spelling errors. Electronically signed by: Valentino Lerner M.D. 03/29/2020 8:31 AM
[2020-03-29] MEDS: APIXABAN 2.5 MG TAB PO SCH ×2 (08:36→21:30)
[2020-03-29] MEDS: POTASSIUM CHLORIDE 20 MEQ TABCR PO SCH (08:36)
[2020-03-29] MEDS: carvediloL 6.25 MG TAB PO SCH ×2 (08:36→17:10)
[2020-03-29] MEDS: RANOLAZINE 500 MG ER TAB PO SCH ×2 (08:36→21:30)
[2020-03-29] MEDS: carvediloL 3.125 MG TAB PO SCH ×2 (08:36→17:10)
[2020-03-29] MEDS: CHOLECALCIFEROL 1,000 UNITS 25 MCG TAB PO SCH (08:37)
[2020-03-29] MEDS: TICAGRELOR 90 MG TAB PO SCH ×2 (08:38→21:31)
[2020-03-29] MEDS: INSULIN ASPART 100 UNITS/ML 3 ML PEN SC SCH ×4 (08:39→21:31)
[2020-03-29] MEDS: MULTIVITAMIN TAB PO SCH (08:42)
[2020-03-29] MEDS: BUMETANIDE 1 MG in SYRINGE 0 ML IV SCH ×2 (09:23→17:09)
--- NOTE | 2020-03-29 10:38 | Electrocardiogram Report ---
Test Reason : Blood Pressure : / mmHG Vent. Rate : 085 BPM Atrial Rate : 085 BPM P-R Int : 260 ms QRS Dur : 156 ms QT Int : 408 ms P-R-T Axes : 000 010 149 degrees QTc Int : 485 ms Atrial-paced rhythm with prolonged AV conduction Left bundle branch block Abnormal ECG When compared with ECG of 10-JAN-2020 13:39, No significant change was found Confirmed by Sheng Mitchell ([id number]) on 03/29/2020 10:38:07 AM Referred By: REFERRED SELF Confirmed By:Sheng Mitchell
--- NOTE | 2020-03-29 14:14 | History & Physical Bridge Note ---
Date of Service March 29, 2020 History & Physical Bridge Note Patient seen and examined today by me. Feeling better. Less shortness of breath. Minimal swelling and scattered crackles at bases of lungs. - Continue Bumex 1mg IV BID - Monitor weights and I&Os - Consult HF PA (Urmila Mcmanus) who knows her well. - Troponin downtrending; likely simple demand ischemia (not Type 2 NH) - Continue ceftriaxone for UTI
[2020-03-29] MEDS ORDERED: ALBUT/IPRATROP 3MG/0.5MG NEB 3 ML VIAL NEB PRN (14:23)
[2020-03-29] MEDS: ALUMINUM/MAGNESIUM SUSP 30 ML UDC PO PRN (15:50)
--- NOTE | 2020-03-29 19:19 | Billing Data ---
Date of Service March 29, 2020 Coding Level of Care Code 23038 Initial Inpt Care Lvl 3
[2020-03-29] MEDS: MAGNESIUM OXIDE 400 MG TAB PO SCH (21:30)
[2020-03-29] MEDS: TRAZODONE HCL 50 MG TAB PO SCH (21:30)
[2020-03-29] MEDS: AMIODARONE 200 MG TAB PO SCH (21:31)
[2020-03-30] MEDS: ALUMINUM/MAGNESIUM SUSP 30 ML UDC PO PRN ×2 (02:48→21:09)
[2020-03-30 06:39] LABS: Basophils # (auto) 0.01 K/uL (0-0.2); Basophils % (auto) 0.1 %; Eosinophils # (auto) 0.03 K/uL (0-0.5); Eosinophils % (auto) 0.3 %; Hematocrit (blood only) 32.9 % (37-47); Hemoglobin 10.5 g/dL (12.0-16.0); Immature Granulocytes # (auto) 0.03 K/uL (0.00-0.02); Immature Granulocytes % (auto) 0.3 %; Lymphocytes # (auto) 0.87 K/uL (1.2-3.4); Lymphocytes % (auto) 8.5 %; Mean Corpuscular Hemoglobin 31.2 pg (25-34); Mean Corpuscular Hgb Conc 31.9 g/dL (32-36); Mean Corpuscular Volume 97.6 fL (80-100); Mean Platelet Volume 10.6 fL (7.4-10.4); Monocytes # (auto) 0.89 K/uL (0.11-0.59); Monocytes % (auto) 8.6 %; Neutrophils # (auto) 8.46 K/uL (1.4-6.5); Neutrophils % (auto) 82.2 %; Platelet Count 265 K/uL (130-400); RDW Standard Deviation 53.5 fL (36.4-46.3); Red Blood Count 3.37 M/uL (4.2-5.4); White Blood Count 10.29 K/uL (4.8-10.8)
[2020-03-30] MEDS: cefTRIAXone SODIUM 2,000 MG in DEXTROSE 5% 50 ML IV SCH (06:39)
[2020-03-30] MEDS: LEVOTHYROXINE SODIUM 75 MCG TABLET PO SCH (06:41)
[2020-03-30 07:18] LABS: BUN Creatinine Ratio 19.3 (10-20); Calcium 8.8 mg/dl (8.5-10.1); Creatinine Clr Calc Pharmacy 25.8 ml/min; Est GFR (African American) 28.4; Est GFR (Non-African American) 24.5; Magnesium 2.2 mg/dl (1.8-2.4); Phosphorus 3.1 mg/dl (2.5-4.9); Potassium 4.4 mmol/L (3.5-5.1)
[2020-03-30] MEDS: CHOLECALCIFEROL 1,000 UNITS 25 MCG TAB PO SCH (08:16)
[2020-03-30] MEDS: TICAGRELOR 90 MG TAB PO SCH ×2 (08:16→21:12)
[2020-03-30] MEDS: APIXABAN 2.5 MG TAB PO SCH ×2 (08:17→21:14)
[2020-03-30] MEDS: RANOLAZINE 500 MG ER TAB PO SCH ×2 (08:17→21:14)
[2020-03-30] MEDS: carvediloL 3.125 MG TAB PO SCH ×2 (08:17→16:32)
[2020-03-30] MEDS: POTASSIUM CHLORIDE 20 MEQ TABCR PO SCH (08:17)
[2020-03-30] MEDS: carvediloL 6.25 MG TAB PO SCH ×2 (08:17→16:32)
[2020-03-30] MEDS: INSULIN ASPART 100 UNITS/ML 3 ML PEN SC SCH ×4 (08:19→21:16)
[2020-03-30] MEDS: MULTIVITAMIN TAB PO SCH (08:25)
[2020-03-30] MEDS: BUMETANIDE 1 MG in SYRINGE 0 ML IV SCH ×2 (08:40→16:32)
[2020-03-30] MEDS: ACETAMINOPHEN 325 MG TAB PO PRN (14:32)
[2020-03-30] MEDS: DIGOXIN 0.125 MG TAB PO SCH (16:31)
[2020-03-30 17:31] LABS: Oxygen Saturation VBG 80.3 %; pH VBG 7.44 (7.36-7.41)
--- NOTE | 2020-03-30 18:23 | XRay Report ---
SINGLE VIEW CHEST CLINICAL HISTORY: Dyspnea. FINDINGS: An AP, portable, upright chest radiograph is compared to study dated 03/29/2020. The examina tion is degraded by portable technique and patient rotation. A 2-lead cardiac pacemaker is unchanged in position. There is evidence of previous cardiac valve surgery. The heart is enlarged noting athero sclerotic calcification of the thoracic aorta. Pulmonary vascular congestion persists. There are laye ring pleural effusions with bibasilar consolidation. No pneumothorax is seen. The skeletal structures are osteopenic. The bony thorax is grossly intact. IMPRESSION: 1. Cardiomegaly and cardiac pacemaker evidence of congestive failure. This is similar to yesterday. 2. Layering pleural effusions with bibasilar consolidation. ACT 112: Negative or not required by law. Electronically signed by: Marcus East M.D. 03/30/2020 6:22 PM
[2020-03-30] MEDS: POLYETHYLENE (MIRALAX) 17 GM PACK PO PRN (21:10)
[2020-03-30] MEDS: AMIODARONE 200 MG TAB PO SCH (21:13)
[2020-03-30] MEDS: MAGNESIUM OXIDE 400 MG TAB PO SCH (21:14)
[2020-03-30] MEDS: TRAZODONE HCL 50 MG TAB PO SCH (21:19)
--- NOTE | 2020-03-30 22:21 | Hospitalist Progress Note ---
Date of Service March 30, 2020 Assessment & Plan (1) CHF (congestive heart failure): Ms. Barry is an 79yo with a PMHx of CAD s/p [place] with stent placement, severe aortic stenosis s/p TAVR, ischemic cardiomyopathy with EF 25-30%, biventricular CHF, pacer for Hx of sinus bradycardia, CKD, atrial fibrillation and atrial flutter, prior DVT, ?COPD/asthma, peripheral artery disease, GERD, DMII, HLD and HTN who presents with CHF exacerbation. Acute on Chronic Congestive Heart Failure -Pt with SOB requiring 2L oxygen supplementation -WILL PLACE ON BIPAP overnight. -will continue to diurese. -Does not use oxygen at baseline -chest XR with progression of pulm congestion, cephalization of vessels from March 27 -Echo 11/2019 with EF 25-30%, Grade II diastolic dysfunction, and septal abnormality. -repeat echo ordered to determine whether any acute changes -IV Lasix 40mgx 1 on admission -continue with IV Bumex 1mg BID- consider limiting use given Cr function. Holding home PO Bumex. -may consider tapping/possible thoracentesis in AM for further benefit -scheduled duonebs for wheezing, hold home albuterol Elevated Troponins -elevated to 0.1 on admission -Likely due to demand ischemia -has chronic trop elevation -trending down UTI -pt with UTI diagnosed by PCP on March 27 -Urine Cx growing E. coli, sensitivities pending -first dose of Bactrim prescribed by PCP was night of March 27 but caused N/V -will hold Bactrim and start on Rocephin RLE Trauma -Pt with Hx of fall and significant bruising on RLE -will consult ortho if further procedures are required -US/soft tissue biopsy showed a hematoma -of note pt on Eliquis for Hx of atrial fibrillation/flutter and Brilinta for Hx of stent placements (see below) -continue Eliquis and Brilinta Atrial Fibrillation/Atrial Flutter -continue with home amiodarone 200mg, digoxin 125mcg and carvedilol 9.375mg -continue home Eliquis 2.5mg BID CAD s/p stent placement -continue home Brilinta 90mg Hx of Angina -cont home ranolazine 500mg BID Hypothyroidism -continue home levothyroxine 75mcg DMII -hgbA1c of 6.4 in 03/2020 -hold home insulin -ISS while hospitalized CKD -baseline Cr of ~1.61 in December 2019 -currently elevated to 2.02 Insomnia -continue home trazodone 50mg HS Constipation -continue home Miralax as needed GERD -continue home pantoprazole 40mg daily HTN -continue carvedilol 9.375mg as above HLD -not currently on a statin FEN/GI: Low sodium, DMII diet DVT prophylaxis: continue home Eliquis CODE STATUS: Full Admission and Anticipated Discharge Date Admission Date: March 29, 2020 Subjective Patient continues to reports feeling SOB. Her right leg continues to be painful as well. She states normally that her SOB improves when she sits up but this is not the case today. Review of Systems Review of Systems: All systems reviewed & are unremarkable except as noted in HPI & below Physical Exam Physical Exam: General: Alert, oriented. continue TO APPEAR IN DISTRESS. Skin: RLE extremity with redness and bruising Psych: Appropriate mood and affect Neuro: No gross deficits HEENT: NC/AT, neck retractions Chest: Nontender to palpation. CV: RRR, Blowing murmur appreciated Resp: Breath sounds with wheezing bilaterally, an increased effort of breathing. Crackles appreciated at bases bilaterally. Abdomen: Soft, nontender, nondistended. No guarding. No organomegaly apprec iated. Extremities: No edema in lower extremities bilaterally. RLE with redness an bruising Results & Data Results & [facility] ([facility]) Vital Signs (Past 12 Hours) Vital Signs Temp Pulse Pulse Resp BP Pulse Ox 03/30/20 19:51 36.6 C 65 22 147/70 H 94 03/30/20 16:31 67 03/30/20 15:58 62 03/30/20 15:22 36.7 C 66 22 156/77 H 97 03/30/20 11:21 36.7 C 64 18 153/83 H 96 PG Care Time/CCT Total # of Minutes Spent Total Time Spent with Patient: Total time spent is greater than 50% in coordination of care (as documented) at patient's floor/unit and/or counseling patient: Coding Level of Care Code 79857 Subseq Hosp Care Lvl 3 Diagnoses CHF (congestive heart failure) I50.9 Heart failure chronicity: acute on chronic Heart failure type: unspecified (1) CHF (congestive heart failure) Heart failure chronicity: acute on chronic Heart failure type: unspecified Qualified Code(s): I50.9 - Heart failure, unspecified
[2020-03-31] MEDS: cefTRIAXone SODIUM 2,000 MG in DEXTROSE 5% 50 ML IV SCH (06:06)
[2020-03-31] MEDS: LEVOTHYROXINE SODIUM 75 MCG TABLET PO SCH (06:07)
[2020-03-31 07:25] LABS: Basophils # (auto) 0.02 K/uL (0-0.2); Basophils % (auto) 0.2 %; Eosinophils % (auto) 1.2 %; Hematocrit (blood only) 33.5 % (37-47); Immature Granulocytes # (auto) 0.03 K/uL (0.00-0.02); Immature Granulocytes % (auto) 0.4 %; Lymphocytes # (auto) 1.18 K/uL (1.2-3.4); Lymphocytes % (auto) 14.1 %; Mean Corpuscular Hemoglobin 32.6 pg (25-34); Mean Corpuscular Hgb Conc 32.8 g/dL (32-36); Mean Corpuscular Volume 99.4 fL (80-100); Mean Platelet Volume 10.7 fL (7.4-10.4); Monocytes # (auto) 1.26 K/uL (0.11-0.59); Neutrophils % (auto) 69.1 %; Platelet Count 270 K/uL (130-400); RDW Standard Deviation 53.6 fL (36.4-46.3); Red Blood Count 3.37 M/uL (4.2-5.4); White Blood Count 8.39 K/uL (4.8-10.8)
[2020-03-31 08:03] LABS: BUN Creatinine Ratio 19.2 (10-20); Calcium 9.1 mg/dl (8.5-10.1); Creatinine Clr Calc Pharmacy 26.9 ml/min; Est GFR (African American) 29.9; Est GFR (Non-African American) 25.8; Potassium 4.2 mmol/L (3.5-5.1)
[2020-03-31] MEDS: MULTIVITAMIN TAB PO SCH (08:22)
[2020-03-31] MEDS: carvediloL 6.25 MG TAB PO SCH ×2 (08:22→17:31)
[2020-03-31] MEDS: RANOLAZINE 500 MG ER TAB PO SCH ×2 (08:22→22:02)
[2020-03-31] MEDS: POTASSIUM CHLORIDE 20 MEQ TABCR PO SCH (08:22)
[2020-03-31] MEDS: APIXABAN 2.5 MG TAB PO SCH (08:22)
[2020-03-31] MEDS: CHOLECALCIFEROL 1,000 UNITS 25 MCG TAB PO SCH (08:22)
[2020-03-31] MEDS: TICAGRELOR 90 MG TAB PO SCH ×2 (08:23→22:02)
[2020-03-31] MEDS: carvediloL 3.125 MG TAB PO SCH ×2 (08:23→17:30)
[2020-03-31] MEDS: INSULIN ASPART 100 UNITS/ML 3 ML PEN SC SCH ×4 (08:25→22:32)
[2020-03-31] MEDS: BUMETANIDE 1 MG in SYRINGE 0 ML IV SCH ×2 (08:28→17:31)
--- NOTE | 2020-03-31 11:40 | Pulmonary Consultation ---
Date of Consultation March 31, 2020 Assessment & Plan (1) Acute respiratory failure with hypoxia: --Bilateral pleural effusion This has been chronic likely from underlying systolic and diastolic CHF Patient had thoracentesis done on the left side more than 3 years ago when she was complaining of shortness of breath As per the patient it helped her breathe better. I explained the risk and benefits of thoracentesis with the patient in depth including higher risk of bleeding as the patient is on Brilinta. Patient understand and is willing to go ahead with the procedure -- Acute hypoxic respiratory failure Secondary to CHF exacerbation with EF 20-25% and stage III diastolic, Continue diuresis as tolerated BiPAP nightly and PRN shortness of breath --A. fib On apixaban at home Plan: Patient needs to be off novel anticoagulants for at least 48 hours since the last dose to decrease the risk of bleeding. Given the patient got apixaban 2.5 mg in the morning today, will plan to do thoracentesis on in the afternoon. Continue with diuretics (2) CHF (congestive heart failure): Heart failure chronicity: acute on chronic Heart failure type: unspecified Qualified Code(s): I50.9 - Heart failure, unspecified (3) Stented coronary artery: History of Present Illness Attending Physician: Bhanu Rueda History of Present Illness 79-year-old female with multiple comorbidities, ischemic cardiomyopathy with EF 25%, severe aortic stenosis status post TAVR, history of sick sinus syndrome status post biventricular pacemaker, A. fib on apixaban, GERD was admitted to the hospital because of worsening shortness of breath which has been going on for a week. Pulmonary was consulted because of bilateral pleural effusion that she has. At the time of examination patient states that the shortness of breath is exertional but sometimes even when she is laying down she has this feeling of retrosternal tightness at that time it gets difficult for her to breathe and it is better after she burps. Patient denies any chest pain, dizziness, blurry vision, nausea or vomiting at that time. No diarrhea. Patient has history of thoracentesis in the past. She had a done on the left side approximately 3 years ago as per the patient she felt better after the procedure. Patient denies any personal or family history of asthma. social Hx: Non smoker, no etoh, no illicit drug use. 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 No exposure to any fumes or chemicals Pets: None. No poultry or birds nearby. Allergies Allergy/AdvReac Type Severity Reaction Status Date / Time adhesive Allergy Unknown REDNESS Verified 03/27/20 10:20 AND IRRITATION FROM PAIN PATCH, TAPE dulaglutide [From Trulicity] Allergy Unknown Unknown Verified 03/27/20 10:20 exenatide [From Byetta] Allergy Unknown Unknown Verified 03/27/20 10:20 glipizide Allergy Unknown Unknown Verified 03/27/20 10:20 glyburide Allergy Unknown Unknown Verified 03/27/20 10:20 latex Allergy Unknown ALLERGIC Verified 03/27/20 10:20 TO LATEX TAPE/RASH/ITCHING metformin Allergy Unknown Unknown Verified 03/27/20 10:20 morphine Allergy Unknown swelling Verified 03/27/20 10:20 nausea vomiting olmesartan Allergy Unknown UNKNOWN Verified 03/27/20 10:20 sitagliptin [From Januvia] Allergy Unknown Unknown Verified 03/27/20 10:20 aspirin AdvReac Mild GI SYMPTOMS Verified 03/27/20 10:20 ezetimibe AdvReac Mild MUSCLE Verified 03/27/20 10:20 ACHES lisinopril AdvReac Unknown LIGHTHEADED Verified 03/27/20 10:20 AND DIZZY pioglitazone AdvReac Unknown DIARRHEA Verified 03/27/20 10:20 NAUSEA Thkyvaw-Nej-Prv Reductase AdvReac Unknown myalgias Verified 03/27/20 10:20 Inhibitor and weakness benzonatate AdvReac confusion Verified 03/27/20 10:20 [From Giovanni Brennan] Home Medications Home Medications Medication Instructions Recorded Confirmed Type garlic 1,000 mg capsule 1,000 mg PO QAM #30 cap 04/01/19 03/29/20 Rx magnesium oxide 400 mg PO QPM #90 cap 04/01/19 03/29/20 Rx multivitamin 1 tab PO QAM 05/19/19 03/29/20 History potassium chloride 20 mEq 20 meq PO QAM tab 05/19/19 03/29/20 History tablet,extended release cholecalciferol (vitamin D3) 25 1,000 units PO QAM 06/06/19 03/29/20 History mcg (1,000 unit) capsule albuterol sulfate 90 mcg/actuation 2 puff INHALATION Q6H PRN #8 gm 06/11/19 03/29/20 Rx aerosol inhaler insulin syringe-needle U-100 0.3 See Rx Instructions .ROUTE 09/30/19 03/29/20 Rx mL 31 gauge x 02/28" .COMPLEX #100 unspecified apixaban 2.5 mg tablet 2.5 mg PO BID #60 tab 10/18/19 03/29/20 Rx blood sugar diagnostic 1 strip MISCELLANEOUS TID #100 ea 11/06/19 03/29/20 Rx levothyroxine 75 mcg tablet 75 mcg PO DAILY #90 tab 12/09/19 03/29/20 Rx amiodarone 200 mg tablet 200 mg PO QPM #90 tab 12/16/19 03/29/20 Rx insulin asp prt-insulin aspart 50 units SUBCUT AMPM #30 ml 01/11/20 03/29/20 Rx [Novolog Mix 70-30 U-100 Insuln] carvedilol 3.125 mg tablet 3.125 mg PO BID #90 tab 01/28/20 03/29/20 Rx carvedilol 6.25 mg tablet 6.25 mg PO BID #135 tab 01/28/20 03/29/20 Rx digoxin 125 mcg (0.125 mg) tablet 125 mcg PO .COMPLEX #36 tab 02/24/20 03/29/20 Rx pantoprazole 40 mg tablet,delayed 40 mg PO DAILY PRN #90 tab 02/24/20 03/29/20 Rx release bumetanide 1 mg tablet 1 mg PO BID #180 tab 03/16/20 03/29/20 Rx ticagrelor 90 mg tablet 90 mg PO BID #180 tab 03/16/20 03/29/20 Rx ondansetron HCl [Zofran] 8 mg PO Q8H PRN 03/29/20 03/29/20 History polyethylene glycol 3350 [Miralax] 17 g PO HS 03/29/20 03/29/20 History ranolazine 500 mg PO BID 03/29/20 03/29/20 History sulfamethoxazole-trimethoprim 1 tab PO BID 03/29/20 03/29/20 History trazodone 50 mg PO HS 03/29/20 03/29/20 History vitamin E 400 unit PO QAM 03/29/20 03/29/20 History Patient History Social History Preferred Language: Divehi Communication Ability: Effective Visual Impairment: No Limitations Hearing Ability: Normal Rug Designer Required: No Beliefs That Will Affect Care: None marital status: / Current Living Situation: Alone Current Living Situation Comment: Lives at home alone current occupational status: retired Other Information That Helps Us Care for You: No Feels Safe at Home: Yes Safety Concerns: Feels Safe At This Time Smoking Status: Never smoker Second Hand Exposure: No ; Hx Alcohol Use: No Hx Substance Use: No Childhood Exposure to Second-Hand Smoke: No Dental Care, Regularly: Yes Physical Activity Frequency: Other Physical Activity Frequency Comment: Currently does not, but wants to walk daily again. Seatbelt Use: always Sunscreen Use: No Review of Systems Review of Systems: All systems reviewed & are unremarkable except as noted in HPI & below Physical Exam Physical Exam: Constitutional: No acute distress HEENT: EOMI, PERRLA Respiratory system: Decreased air entry bilaterally, no wheeze, no rhonchi, positive crackles bilateral lower lobes CVS: S1-S2 positive, positive 2 out of 6 systolic murmur murmur appreciated best at the aorta Abdomen: Soft, nontender, nondistended, positive bowel sounds x4 Extremities: +2 pulses bilaterally radialis, no cyanosis, right lower extremity bruising appreciated with +1 edema. Neuro: Awake alert oriented x3 Psych: Normal mood and affect G/U: No [place] Skin: Trauma: + contusion Lymphatic: no cervical or axillary lymphadenopathy Results & Data Results & Data ([facility]) Vital Signs (Past 12 Hours) Vital Signs Temp Pulse Pulse Resp BP Pulse Ox 03/31/20 11:06 36.7 C 56 L 18 135/65 93 03/31/20 07:29 63 03/31/20 07:11 36.6 C 65 20 147/75 H 95 03/31/20 04:32 37.1 C 65 18 126/66 92 03/31/20 00:21 37.3 C 62 20 129/53 L 92 03/31/20 07:04 03/31/20 07:04 PG Care Time/CCT Total # of Minutes Spent Total Time Spent with Patient: Total time spent is greater than 50% in coordination of care (as documented) at patient's floor/unit and/or counseling patient: [place] [address] Initial Inpt Care Lvl 3 Patient Type New Diagnoses Acute respiratory failure with hypoxia J96.01 CHF (congestive heart failure) I50.9 Heart failure chronicity: acute on chronic Heart failure type: unspecified Stented coronary artery Z95.5
[2020-03-31] MEDS: ACETAMINOPHEN 325 MG TAB PO PRN ×2 (13:10→21:56)
--- NOTE | 2020-03-31 15:33 | Orthopedic Consultation ---
Date of Consultation March 31, 2020 Assessment & Plan (1) Hematoma of right lower leg: She was seen and examined by Dr. Morel today as well. She does have a hematoma of her lower leg involving mostly the anterior compartment. Her compartments are soft and she does not have compartment syndrome. We recommend continued conservative management without surgical intervention. We discussed aspiration of the hematoma but will hold off on this time as she feels it is improved over the past few days. We recommend a compression stocking or Sudhir wrap around the lower leg however she declined this as she does not want any pressure superficially. She can continue weightbearing as tolerated. Present on Admission?: Yes (2) Right rotator cuff tear: We did not recommend any further intervention for her shoulder at this time. Certainly she has some degree of injury to her rotator cuff. We recommend just observation at this point in this acute phase and see if it improves for her. Present on Admission?: Yes History of Present Illness Reason for Consultation: Right leg hematoma Attending Physician: Bhanu Rueda History of Present Illness 79-year-old female admitted with CHF. Orthopedics was consulted for evaluation hematoma right lower extremity. She states that she had a fall 1 week ago today hit her leg against some concrete and developed some swelling in the right leg. She is on Eliquis. She has been able to walk but she has been using a walker at home. She has occasional groin pain and is also had some shoulder pain. The shoulder was also bothering her though before this fall. She was seen the day of her fall in the [facility] and had an x-ray which was negative for fracture and she also had an ultrasound showing hematoma. She feels the swelling in her leg has improved over the past few days. Allergies Allergy/AdvReac Type Severity Reaction Status Date / Time adhesive Allergy Unknown REDNESS Verified 03/27/20 10:20 AND IRRITATION FROM PAIN PATCH, TAPE dulaglutide [From Trulicity] Allergy Unknown Unknown Verified 03/27/20 10:20 exenatide [From Byetta] Allergy Unknown Unknown Verified 03/27/20 10:20 glipizide Allergy Unknown Unknown Verified 03/27/20 10:20 glyburide Allergy Unknown Unknown Verified 03/27/20 10:20 latex Allergy Unknown ALLERGIC Verified 03/27/20 10:20 TO LATEX TAPE/RASH/ITCHING metformin Allergy Unknown Unknown Verified 06/12/20 10:20 morphine Allergy Unknown swelling Verified 03/27/20 10:20 nausea vomiting olmesartan Allergy Unknown UNKNOWN Verified 03/27/20 10:20 sitagliptin [From Ravinuvluís] Allergy Unknown Unknown Verified 03/27/20 10:20 aspirin AdvReac Mild GI SYMPTOMS Verified 03/27/20 10:20 ezetimibe AdvReac Mild MUSCLE Verified 03/27/20 10:20 ACHES lisinopril AdvReac Unknown LIGHTHEADED Verified 03/27/20 10:20 AND DIZZY pioglitazone AdvReac Unknown DIARRHEA Verified 03/27/20 10:20 NAUSEA Wflscrr-Ryi-Bcm Reductase AdvReac Unknown myalgias Verified 03/27/20 10:20 Inhibitor and weakness benzonatate AdvReac confusion Verified 03/27/20 10:20 [From Giovanni Brennan] Home Medications Home Medications Medication Instructions Recorded Confirmed Type garlic 1,000 mg capsule 1,000 mg PO QAM #30 cap 04/01/19 03/29/20 Rx magnesium oxide 400 mg PO QPM #90 cap 04/01/19 03/29/20 Rx multivitamin 1 tab PO QAM 05/19/19 03/29/20 History potassium chloride 20 mEq 20 meq PO QAM tab 05/19/19 03/29/20 History tablet,extended release cholecalciferol (vitamin D3) 25 1,000 units PO QAM 06/06/19 03/29/20 History mcg (1,000 unit) capsule albuterol sulfate 90 mcg/actuation 2 puff INHALATION Q6H PRN #8 gm 06/11/19 03/29/20 Rx aerosol inhaler insulin syringe-needle U-100 0.3 See Rx Instructions .ROUTE 09/30/19 03/29/20 Rx mL 31 gauge x 02/28" .COMPLEX #100 unspecified apixaban 2.5 mg tablet 2.5 mg PO BID #60 tab 10/18/19 03/29/20 Rx blood sugar diagnostic 1 strip MISCELLANEOUS TID #100 ea 11/06/19 03/29/20 Rx levothyroxine 75 mcg tablet 75 mcg PO DAILY #90 tab 12/09/19 03/29/20 Rx amiodarone 200 mg tablet 200 mg PO QPM #90 tab 12/16/19 03/29/20 Rx insulin asp prt-insulin aspart 50 units SUBCUT AMPM #30 ml 01/11/20 03/29/20 Rx [Novolog Mix 70-30 U-100 Insuln] carvedilol 3.125 mg tablet 3.125 mg PO BID #90 tab 01/28/20 03/29/20 Rx carvedilol 6.25 mg tablet 6.25 mg PO BID #135 tab 01/28/20 03/29/20 Rx digoxin 125 mcg (0.125 mg) tablet 125 mcg PO .COMPLEX #36 tab 02/24/20 03/29/20 Rx pantoprazole 40 mg tablet,delayed 40 mg PO DAILY PRN #90 tab 02/24/20 03/29/20 Rx release bumetanide 1 mg tablet 1 mg PO BID #180 tab 03/16/20 03/29/20 Rx ticagrelor 90 mg tablet 90 mg PO BID #180 tab 03/16/20 03/29/20 Rx ondansetron HCl [Zofran] 8 mg PO Q8H PRN 03/29/20 03/29/20 History polyethylene glycol 3350 [Miralax] 17 g PO HS 03/29/20 03/29/20 History ranolazine 500 mg PO BID 03/29/20 03/29/20 History sulfamethoxazole-trimethoprim 1 tab PO BID 03/29/20 03/29/20 History trazodone 50 mg PO HS 03/29/20 03/29/20 History vitamin E 400 unit PO QAM 03/29/20 03/29/20 History Patient History Medical History Angina pectoris (Acute) Arthralgia of multiple sites Atrial flutter Bilateral carotid artery stenosis Chronic obstructive pulmonary disease, unspecified CKD (chronic kidney disease), stage III DM II (diabetes mellitus, type II), controlled GERD (gastroesophageal reflux disease) HLD (hyperlipidemia) HTN (hypertension) Hypothyroidism Left bundle branch block Morbid obesity Occlusion and stenosis of unspecified carotid artery (Acute) PAD (peripheral artery disease) (Acute) Pleural effusion due to CHF (congestive heart failure) Postmenopausal status (Acute) Spondylosis (Acute) Surgical History H/O: section History of appendectomy History of cataract surgery History of cholecystectomy History of hysterectomy History of oophorectomy Pacemaker Presence of stent in LAD coronary artery Family History Daughter Coronary heart disease Mother Diabetes Family history of hypercholesterolemia Myocardial infarction Brother Colorectal cancer Other Pacemaker Denies family history of Ovarian cancer Prostate cancer Breast cancer Social History Preferred Language: Khmer Communication Ability: Effective Visual Impairment: No Limitations Hearing Ability: Normal Manager Environmental Affairs Required: No Beliefs That Will Affect Care: None marital status: / Current Living Situation: Alone Current Living Situation Comment: Lives at home alone current occupational status: retired Other Information That Helps Us Care for You: No Feels Safe at Home: Yes Safety Concerns: Feels Safe At This Time Smoking Status: Never smoker Second Hand Exposure: No ; Hx Alcohol Use: No Hx Substance Use: No Childhood Exposure to Second-Hand Smoke: No Dental Care, Regularly: Yes Physical Activity Frequency: Other Physical Activity Frequency Comment: Currently does not, but wants to walk daily again. Seatbelt Use: always Sunscreen Use: No Review of Systems Musculoskeletal: as per Subjective / HPI Neurologic: no tingling and no numbness Physical Exam Physical Exam: She is alert and oriented. She is in no distress. On exam of her right shoulder she is able to actively raise her arm slightly overhead. She has a some pain with range of motion of the shoulder today. She has no ecchymosis or swelling around the shoulder or upper arm. She has no pain with range of motion of her right hip today. She does have some obvious swelling and ecchymosis of the lower leg. She is tender to palpation in the lower leg seems to be maximally tender and swollen in the anterior compartment. She is able to dorsiflex and plantar flex and move her toes appropriately. She is neurovascularly intact. She does have some difficulty with dorsiflexion but is able to do it. She has no pain with active or passive motion of her toes. Compartments of her lower leg are soft. She does have some wrinkling of her skin as well. There is a small abrasion anteriorly. Results & Data ([facility]) Vital Signs (Past 12 Hours) Vital Signs Temp Pulse Pulse Resp BP Pulse Ox 06/16/20 15:08 60 03/31/20 15:05 36.7 C 61 19 106/54 L 92 03/31/20 11:06 36.7 C 56 L 18 135/65 93 03/31/20 07:29 63 03/31/20 07:11 36.6 C 65 20 147/75 H 95 03/31/20 04:32 37.1 C 65 18 126/66 92 Diagnostic Findings X-ray report from 03/24/2020 from [facility] was reviewed and was negative for fracture per the report. We do not see these x-rays in the [facility] any system. She had ultrasound which showed a hematoma of the right lower leg in the anterior aspect. PG Care Time/CCT Total # of Minutes Spent Total Time Spent with Patient: Total time spent is greater than 50% in coordination of care (as documented) at patient's floor/unit and/or counseling patient: Coding Level of Care Code 36138 Initial Inpt Care Lvl 3 Diagnoses Hematoma of right lower leg S80.11XA Right rotator cuff tear M75.101
[2020-03-31] MEDS: ALUMINUM/MAGNESIUM SUSP 30 ML UDC PO PRN (21:56)
[2020-03-31] MEDS: POLYETHYLENE (MIRALAX) 17 GM PACK PO PRN (21:57)
[2020-03-31] MEDS: AMIODARONE 200 MG TAB PO SCH (22:03)
[2020-03-31] MEDS: MAGNESIUM OXIDE 400 MG TAB PO SCH (22:03)
[2020-03-31] MEDS: TRAZODONE HCL 50 MG TAB PO SCH (22:08)
--- NOTE | 2020-03-31 22:09 | Hospitalist Progress Note ---
Date of Service March 31, 2020 Assessment & Plan (1) CHF (congestive heart failure): Ms. Barry is an 79yo with a PMHx of CAD s/p LA with stent placement, severe aortic stenosis s/p TAVR, ischemic cardiomyopathy with EF 25-30%, biventricular CHF, pacer for Hx of sinus bradycardia, CKD, atrial fibrillation and atrial flutter, prior DVT, ?COPD/asthma, peripheral artery disease, GERD, DMII, HLD and HTN who presents with CHF exacerbation. Acute on Chronic Congestive Heart Failure -Pt continues to require 2l NC. -will continue to diurese. -Does not use oxygen at baseline. -chest XR with progression of pulm congestion, cephalization of vessels from March 27 -Echo 11/2019 with EF 25-30%, Grade II diastolic dysfunction, and septal abnormality. -repeat echo ordered to determine whether any acute changes -continue with IV Bumex 1mg BID- consider limiting use given Cr function. Holding home PO Bumex. -may consider tapping/possible thoracentesis in AM for further benefit -scheduled duonebs for wheezing, hold home albuterol -will consult pulmonary for thoracocenthesis. Elevated Troponins -elevated to 0.1 on admission -Likely due to demand ischemia -has chronic trop elevation -trending down UTI -pt with UTI diagnosed by PCP on March 27 -Urine Cx growing E. coli, sensitivities pending -first dose of Bactrim prescribed by PCP was night of March 27 but caused N/V -will hold Bactrim and start on Rocephin: concern over possible resistance as carbapenem resistant. -However, patient is improving in regards to her symptoms. RLE Trauma -Pt with Hx of fall and significant bruising on RLE -will consult ortho if further procedures are required -US/soft tissue biopsy showed a hematoma -of note pt on Eliquis for Hx of atrial fibrillation/flutter and Brilinta for Hx of stent placements (see below) -continue Eliquis and Brilinta Atrial Fibrillation/Atrial Flutter -continue with home amiodarone 200mg, digoxin 125mcg and carvedilol 9.375mg -continue home Eliquis 2.5mg BID CAD s/p stent placement -continue home Brilinta 90mg Hx of Angina -cont home ranolazine 500mg BID Hypothyroidism -continue home levothyroxine 75mcg DMII -hgbA1c of 6.4 in 03/2020 -hold home insulin -ISS while hospitalized Chronic kidney disease, stage 4 -baseline Cr of ~1.61 in December 2019 -currently elevated to 2.02 Insomnia -continue home trazodone 50mg HS Constipation -continue home Miralax as needed GERD -continue home pantoprazole 40mg daily HTN -continue carvedilol 9.375mg as above HLD -not currently on a statin FEN/GI: Low sodium, DMII diet DVT prophylaxis: continue home Eliquis CODE STATUS: Full Admission and Anticipated Discharge Date Admission Date: March 29, 2020 Subjective Patient reports having same amount of pain this morning. Review of Systems Review of Systems: All systems reviewed & are unremarkable except as noted in HPI & below Physical Exam Physical Exam: General: Alert, oriented No longer appears in distress. Skin: RLE extremity with redness and bruising Psych: Appropriate mood and affect Neuro: No gross deficits HEENT: NC/AT, neck retractions Chest: Nontender to palpation. CV: RRR, Blowing murmur appreciated Resp: Breath sounds with decreased wheezing and crackles. Abdomen: Soft, nontender, nondistended. No guarding. No organomegaly appreciated. Extremities: No edema in lower extremities bilaterally. RLE with redness an bruising Results & Data Results & Data ([facility]) Vital Signs (Past 12 Hours) Vital Signs Temp Pulse Pulse Resp BP Pulse Ox 03/31/20 19:59 36.5 C 66 24 150/80 H 96 03/31/20 17:37 63 136/75 03/31/20 15:08 60 03/31/20 15:05 36.7 C 61 19 106/54 L 92 03/31/20 11:06 36.7 C 56 L 18 135/65 93 PG Care Time/CCT Total # of Minutes Spent Total Time Spent with Patient: Total time spent is greater than 50% in coordination of care (as documented) at patient's floor/unit and/or counseling patient: Coding Level of Care Code 69525 Subseq Hosp Care Lvl 3 Diagnoses CHF (congestive heart failure) I50.9 Heart failure chronicity: acute on chronic Heart failure type: unspecified Time Spent (min) 35 (1) CHF (congestive heart failure) Heart failure chronicity: acute on chronic Heart failure type: unspecified Qualified Code(s): I50.9 - Heart failure, unspecified
[2020-04-01] MEDS: LEVOTHYROXINE SODIUM 75 MCG TABLET PO SCH (06:00)
[2020-04-01] MEDS: cefTRIAXone SODIUM 2,000 MG in DEXTROSE 5% 50 ML IV SCH (06:00)
[2020-04-01 07:32] LABS: Basophils # (auto) 0.01 K/uL (0-0.2); Basophils % (auto) 0.1 %; Eosinophils # (auto) 0.16 K/uL (0-0.5); Eosinophils % (auto) 2.3 %; Hemoglobin 10.1 g/dL (12.0-16.0); Immature Granulocytes # (auto) 0.02 K/uL (0.00-0.02); Immature Granulocytes % (auto) 0.3 %; Lymphocytes # (auto) 0.94 K/uL (1.2-3.4); Lymphocytes % (auto) 13.4 %; Mean Corpuscular Hemoglobin 31.1 pg (25-34); Mean Corpuscular Hgb Conc 31.6 g/dL (32-36); Mean Corpuscular Volume 98.5 fL (80-100); Mean Platelet Volume 10.8 fL (7.4-10.4); Monocytes # (auto) 0.95 K/uL (0.11-0.59); Monocytes % (auto) 13.6 %; Neutrophils # (auto) 4.91 K/uL (1.4-6.5); Neutrophils % (auto) 70.3 %; Platelet Count 248 K/uL (130-400); RDW Coefficient of Variation 14.8 % (11.5-14.5); Red Blood Count 3.25 M/uL (4.2-5.4); White Blood Count 6.99 K/uL (4.8-10.8)
[2020-04-01 07:56] LABS: BUN Creatinine Ratio 20.5 (10-20); Calcium 8.6 mg/dl (8.5-10.1); Creatinine Clr Calc Pharmacy 27.2 ml/min; Est GFR (African American) 30.5; Est GFR (Non-African American) 26.3; Potassium 4.7 mmol/L (3.5-5.1)
[2020-04-01] MEDS: INSULIN ASPART 100 UNITS/ML 3 ML PEN SC SCH ×4 (08:14→21:01)
[2020-04-01] MEDS: carvediloL 6.25 MG TAB PO SCH ×2 (08:15→16:42)
[2020-04-01] MEDS: CHOLECALCIFEROL 1,000 UNITS 25 MCG TAB PO SCH (08:15)
[2020-04-01] MEDS: MULTIVITAMIN TAB PO SCH (08:15)
[2020-04-01] MEDS: POTASSIUM CHLORIDE 20 MEQ TABCR PO SCH (08:15)
[2020-04-01] MEDS: carvediloL 3.125 MG TAB PO SCH ×2 (08:15→16:42)
[2020-04-01] MEDS: TICAGRELOR 90 MG TAB PO SCH ×2 (08:15→20:59)
[2020-04-01] MEDS: RANOLAZINE 500 MG ER TAB PO SCH ×2 (08:16→21:00)
[2020-04-01] MEDS: BUMETANIDE 1 MG in SYRINGE 0 ML IV SCH ×2 (08:22→16:42)
[2020-04-01 10:01] LABS: Appearance Urine Clear (Clear); Bacteria Urine Automated Negative (Negative); Bilirubin Urine Negative (Negative); Blood Urine Negative (Negative); Color Urine Yellow; Epithelial Cell Urine Auto 20-30 /lpf (0-5); Glucose Urine UA Trace (Negative); Ketones Urine Negative (Negative); Leukocyte Esterase Urine Trace (Negative); Nitrite Urine Negative (Negative); Protein Urine Negative (Negative); RBC Urine Automated 0-4 /hpf (0-4); Specific Gravity Urine 1.014 (1.000-1.030); Urobilinogen Urine Negative (Negative)
--- NOTE | 2020-04-01 13:25 | Pulmonology Progress Note ---
Date of Service April 01, 2020 Assessment & Plan (1) Acute respiratory failure with hypoxia: --Bilateral pleural effusion This has been chronic likely from underlying systolic and diastolic CHF Patient had thoracentesis done on the left side more than 3 years ago when she was complaining of shortness of breath As per the patient it helped her breathe better. I explained the risk and benefits of thoracentesis with the patient in depth including higher risk of bleeding as the patient is on Brilinta. Patient understand and is willing to go ahead with the procedure -- Acute hypoxic respiratory failure Secondary to CHF exacerbation with EF 20-25% and stage III diastolic, Continue diuresis as tolerated BiPAP nightly and PRN shortness of breath --A. fib On apixaban at home Plan: Patient needs to be off novel anticoagulants for at least 48 hours since the last dose to decrease the risk of bleeding. Given the patient got apixaban 2.5 mg in the morning 03/31/20, will plan to do thoracentesis tomorrow in the afternoon. Continue with diuretics (2) CHF (congestive heart failure): Heart failure chronicity: acute on chronic Heart failure type: unspecified Qualified Code(s): I50.9 - Heart failure, unspecified (3) Stented coronary artery: Admission and Anticipated Discharge Date Admission Date: March 29, 2020 Subjective Patient seen and examined at bedside. No acute distress, no adverse events overnight. Shortness of breath is improved. Denies any chest pain, no headache, no dizziness. Urinating well. Still complaining of right leg discomfort but states that it is better than before. Review of Systems Review of Systems: All systems reviewed & are unremarkable except as noted in HPI & below Physical Exam Physical Exam: Constitutional: No acute distress HEENT: EOMI, PERRLA Respiratory system: Decreased air entry bilaterally, no wheeze, no rhonchi, positive crackles bilateral lower lobes CVS: S1-S2 positive, positive 2 out of 6 systolic murmur murmur appreciated best at the aorta Abdomen: Soft, nontender, nondistended, positive bowel sounds x4 Extremities: +2 pulses bilaterally radialis, no cyanosis, right lower extremity bruising appreciated with +1 edema. Neuro: Awake alert oriented x3 Psych: Normal mood and affect G/U: No Carlton Skin: Trauma: + contusion Lymphatic: no cervical or axillary lymphadenopathy Results & Data Results & Data ([place]) Vital Signs (Past 12 Hours) Vital Signs Temp Pulse Pulse Resp BP Pulse Ox 04/01/20 11:01 36.4 C L 65 18 143/73 H 96 04/01/20 08:18 61 04/01/20 07:29 36.4 C L 86 18 147/78 H 95 04/01/20 03:45 36.4 C L 70 20 135/74 94 04/01/20 06:57 04/01/20 06:57 PG Care Time/CCT Total # of Minutes Spent Total Time Spent with Patient: Total time spent is greater than 50% in coordination of care (as documented) at patient's floor/unit and/or counseling patient: Coding Level of Care Code 85706 Subseq Hosp Care Lvl 2 Diagnoses Acute respiratory failure with hypoxia J96.01 CHF (congestive heart failure) I50.9 Heart failure chronicity: acute on chronic Heart failure type: unspecified Stented coronary artery Z95.5
[2020-04-01] MEDS: DIGOXIN 0.125 MG TAB PO SCH (16:40)
[2020-04-01] MEDS: AMIODARONE 200 MG TAB PO SCH (20:59)
[2020-04-01] MEDS: MAGNESIUM OXIDE 400 MG TAB PO SCH (21:00)
[2020-04-01] MEDS: ALUMINUM/MAGNESIUM SUSP 30 ML UDC PO PRN (21:07)
[2020-04-01] MEDS: TRAZODONE HCL 50 MG TAB PO SCH (21:07)
--- NOTE | 2020-04-01 23:16 | Hospitalist Progress Note ---
Date of Service April 01, 2020 Assessment & Plan (1) CHF (congestive heart failure): Ms. Barry is an 79yo with a PMHx of CAD s/p [place] with stent placement, severe aortic stenosis s/p TAVR, ischemic cardiomyopathy with EF 25-30%, biventricular CHF, pacer for Hx of sinus bradycardia, CKD, atrial fibrillation and atrial flutter, prior DVT, ?COPD/asthma, peripheral artery disease, GERD, DMII, HLD and HTN who presents with CHF exacerbation. Acute on Chronic Congestive Heart Failure -Pt continues to require 2l NC. -will continue to diurese. -Does not use oxygen at baseline. -chest XR with progression of pulm congestion, cephalization of vessels from March 27 -Echo 11/2019 with EF 25-30%, Grade II diastolic dysfunction, and septal abnormality. -continue with IV Bumex 1mg BID- consider limiting use given Cr function. Holding home PO Bumex. -thoracocenthesis shceduled for tomorrow. -scheduled duonebs for wheezing, hold home albuterol Elevated Troponins -elevated to 0.1 on admission -Likely due to demand ischemia -has chronic trop elevation -trending down UTI -pt with UTI diagnosed by PCP on March 27 -Urine Cx growing E. coli, sensitivities pending -first dose of Bactrim prescribed by PCP was night of March 27 but caused N/V -will hold Bactrim and start on Rocephin: concern over possible resistance as carbapenem resistant. -However, patient is improving in regards to her symptoms. RLE Trauma -Pt with Hx of fall and significant bruising on RLE -will consult ortho if further procedures are required -US/soft tissue biopsy showed a hematoma -of note pt on Eliquis for Hx of atrial fibrillation/flutter and Brilinta for Hx of stent placements (see below) -continue Eliquis and Brilinta Atrial Fibrillation/Atrial Flutter -continue with home amiodarone 200mg, digoxin 125mcg and carvedilol 9.375mg -continue home Eliquis 2.5mg BID CAD s/p stent placement -continue home Brilinta 90mg Hx of Angina -cont home ranolazine 500mg BID Hypothyroidism -continue home levothyroxine 75mcg DMII -hgbA1c of 6.4 in 03/2020 -hold home insulin -ISS while hospitalized Chronic kidney disease, stage 4 -baseline Cr of ~1.61 in December 2019 -currently elevated to 2.02 Insomnia -continue home trazodone 50mg HS Constipation -continue home Miralax as needed GERD -continue home pantoprazole 40mg daily HTN -continue carvedilol 9.375mg as above HLD -not currently on a statin FEN/GI: Low sodium, DMII diet DVT prophylaxis: continue home Eliquis CODE STATUS: Full Admission and Anticipated Discharge Date Admission Date: March 29, 2020 Subjective 79 yo female reports no new symptoms. She states she is breathing better. Her pain in her affected leg is also improved. Review of Systems Review of Systems: All systems reviewed & are unremarkable except as noted in HPI & below Physical Exam Physical Exam: General: Alert, oriented No longer appears in distress. Skin: RLE extremity with redness and bruising Psych: Appropriate mood and affect Neuro: No gross deficits HEENT: NC/AT, neck retractions Chest: Nontender to palpation. CV: RRR, Blowing murmur appreciated Resp: Breath sounds with decreased crackles. No wheezing Abdomen: Soft, nontender, nondistended. No guarding. No organomegaly appreciated. Extremities: No edema in lower extremities bilaterally. RLE with redness an bruising Results & Data Results & Data ([facility]) Vital Signs (Past 12 Hours) Vital Signs Temp Pulse Pulse Resp BP Pulse Ox 04/01/20 18:40 36.4 C L 67 24 137/74 95 04/01/20 16:43 62 138/72 04/01/20 16:40 60 04/01/20 15:15 36.6 C 70 18 134/77 97 04/01/20 15:08 60 PG Care Time/CCT Total # of Minutes Spent Total Time Spent with Patient: Total time spent is greater than 50% in coordination of care (as documented) at patient's floor/unit and/or counseling patient: Coding Level of Care Code 93435 Subseq Hosp Care Lvl 3 Diagnoses CHF (congestive heart failure) I50.9 Heart failure chronicity: acute on chronic Heart failure type: unspecified Time Spent (min) 35 (1) CHF (congestive heart failure) Heart failure chronicity: acute on chronic Heart failure type: unspecified Qualified Code(s): I50.9 - Heart failure, unspecified
[2020-04-01] MEDS: ACETAMINOPHEN 325 MG TAB PO PRN (23:53)
[2020-04-02 05:54] LABS: Basophils # (auto) 0.02 K/uL (0-0.2); Basophils % (auto) 0.3 %; Eosinophils # (auto) 0.18 K/uL (0-0.5); Eosinophils % (auto) 2.6 %; Hematocrit (blood only) 31.2 % (37-47); Immature Granulocytes # (auto) 0.02 K/uL (0.00-0.02); Immature Granulocytes % (auto) 0.3 %; Lymphocytes # (auto) 1.68 K/uL (1.2-3.4); Mean Corpuscular Hemoglobin 31.5 pg (25-34); Mean Corpuscular Hgb Conc 32.1 g/dL (32-36); Mean Corpuscular Volume 98.4 fL (80-100); Mean Platelet Volume 10.6 fL (7.4-10.4); Monocytes # (auto) 0.81 K/uL (0.11-0.59); Monocytes % (auto) 11.6 %; Neutrophils # (auto) 4.28 K/uL (1.4-6.5); Neutrophils % (auto) 61.2 %; Platelet Count 264 K/uL (130-400); RDW Coefficient of Variation 14.7 % (11.5-14.5); RDW Standard Deviation 52.8 fL (36.4-46.3); Red Blood Count 3.17 M/uL (4.2-5.4); White Blood Count 6.99 K/uL (4.8-10.8)
[2020-04-02 06:23] LABS: BUN Creatinine Ratio 19.1 (10-20); Calcium 8.6 mg/dl (8.5-10.1); Creatinine Clr Calc Pharmacy 27.5 ml/min; Est GFR (African American) 30.9; Est GFR (Non-African American) 26.7; Potassium 4.2 mmol/L (3.5-5.1)
[2020-04-02] MEDS: LEVOTHYROXINE SODIUM 75 MCG TABLET PO SCH (07:24)
[2020-04-02] MEDS: CIPROFLOXACIN 250 MG TAB PO SCH ×2 (08:03→18:57)
[2020-04-02] MEDS: BUMETANIDE 1 MG in SYRINGE 0 ML IV SCH ×2 (08:03→17:47)
[2020-04-02] MEDS: carvediloL 6.25 MG TAB PO SCH ×2 (08:03→17:47)
[2020-04-02] MEDS: TICAGRELOR 90 MG TAB PO SCH ×2 (08:03→20:55)
[2020-04-02] MEDS: CHOLECALCIFEROL 1,000 UNITS 25 MCG TAB PO SCH (08:03)
[2020-04-02] MEDS: RANOLAZINE 500 MG ER TAB PO SCH ×2 (08:04→20:56)
[2020-04-02] MEDS: carvediloL 3.125 MG TAB PO SCH ×2 (08:04→17:48)
[2020-04-02] MEDS: MULTIVITAMIN TAB PO SCH (08:04)
[2020-04-02] MEDS: INSULIN ASPART 100 UNITS/ML 3 ML PEN SC SCH ×4 (08:08→20:56)
--- NOTE | 2020-04-02 08:55 | Hospitalist Progress Note ---
Date of Service April 02, 2020 Assessment & Plan (1) CHF (congestive heart failure): Ms. Barry is an 79yo with a PMHx of CAD s/p [place] with stent placement, severe aortic stenosis s/p TAVR, ischemic cardiomyopathy with EF 25-30%, biventricular CHF, pacer for Hx of sinus bradycardia, CKD, atrial fibrillation and atrial flutter, prior DVT, ?COPD/asthma, peripheral artery disease, GERD, DMII, HLD and HTN who presents with CHF exacerbation. Acute on Chronic Systolic and Diastolic Congestive Heart Failure -Pt continues to require 2l NC. -will continue to diurese. negative about 3 liters -clinically appears to be improving. -Does not use oxygen at baseline. -chest XR with progression of pulm congestion, cephalization of vessels from March 27 -Echo 11/2019 with EF 25-30%, Grade II diastolic dysfunction, and septal abnormality. -continue with IV Bumex 1mg BID- consider limiting use given Cr function. Holding home PO Bumex. -thoracocenthesis completed today. -scheduled duonebs for wheezing, hold home albuterol Elevated Troponins -elevated to 0.1 on admission -Likely due to demand ischemia -has chronic trop elevation -trending down UTI -pt with UTI diagnosed by PCP on March 27 -Urine Cx growing E. coli, sensitivities pending: -first dose of Bactrim prescribed by PCP was night of March 27 but caused N/V -will hold Bactrim and was on Rocephin. -Due to concern over possible resistance as carbapenem resistant, will switch to cipro. -Patient is improving in regards to her symptoms. RLE Trauma -Pt with Hx of fall and significant bruising on RLE -will consult ortho if further procedures are required -US/soft tissue biopsy showed a hematoma -of note pt on Eliquis for Hx of atrial fibrillation/flutter and Brilinta for Hx of stent placements (see below) -continue Eliquis and Brilinta-No signs of compartment syndrome. Atrial Fibrillation/Atrial Flutter -continue with home amiodarone 200mg, digoxin 125mcg and carvedilol 9.375mg -continue home Eliquis 2.5mg BID CAD s/p stent placement -continue home Brilinta 90mg Hx of Angina -cont home ranolazine 500mg BID Hypothyroidism -continue home levothyroxine 75mcg DMII -hgbA1c of 6.4 in 03/2020 -hold home insulin -ISS while hospitalized Chronic kidney disease, stage 4 -baseline Cr of ~1.61 in December 2019 -currently elevated to 2.02 Insomnia -continue home trazodone 50mg HS Constipation -continue home Miralax as needed GERD -continue home pantoprazole 40mg daily HTN -continue carvedilol 9.375mg as above HLD -not currently on a statin FEN/GI: Low sodium, DMII diet DVT prophylaxis: continue home Eliquis CODE STATUS: Full Admission and Anticipated Discharge Date Admission Date: March 29, 2020 Subjective Patient reports feeling better after thoracocenthesis. She reports that she is breathing better today. Review of Systems Review of Systems: All systems reviewed & are unremarkable except as noted in HPI & below Physical Exam Physical Exam: General: Alert, oriented No longer appears in distress. Skin: RLE extremity with bruising Psych: Appropriate mood and affect Neuro: No gross deficits HEENT: NC/AT, neck retractions Chest: Nontender to palpation. rales. CV: RRR, Blowing murmur appreciated Resp: Breath sounds with decreased crackles. No wheezing Abdomen: Soft, nontender, nondistended. No guarding. No organomegaly appreciated. Extremities: No edema in lower extremities bilaterally. RLE with redness an bruising Results & Data Results & Data ([facility]) Vital Signs (Past 12 Hours) Vital Signs Temp Pulse Pulse Resp BP Pulse Ox 04/02/20 07:53 36.3 C L 80 20 144/81 H 96 04/02/20 04:05 36.4 C L 61 20 148/72 H 96 04/02/20 02:47 60 04/02/20 00:00 37.0 C 61 20 137/62 92 PG Care Time/CCT Total # of Minutes Spent Total Time Spent with Patient: Total time spent is greater than 50% in coordination of care (as documented) at patient's floor/unit and/or counseling patient: Coding Level of Care Code 51349 Subseq Hosp Care Lvl 3 Diagnoses CHF (congestive heart failure) I50.9 Heart failure chronicity: acute on chronic Heart failure type: unspecified Time Spent (min) 35 (1) CHF (congestive heart failure) Heart failure chronicity: acute on chronic Heart failure type: unspecified Qualified Code(s): I50.9 - Heart failure, unspecified
--- NOTE | 2020-04-02 09:07 | Pulmonology Progress Note ---
Date of Service April 02, 2020 Assessment & Plan (1) Acute respiratory failure with hypoxia: --Bilateral pleural effusion This has been chronic likely from underlying systolic and diastolic CHF Patient had thoracentesis done on the left side more than 3 years ago when she was complaining of shortness of breath As per the patient it helped her breathe better. I explained the risk and benefits of thoracentesis with the patient in depth including higher risk of bleeding as the patient is on Brilinta. Patient understand and is willing to go ahead with the procedure -- Acute hypoxic respiratory failure Secondary to CHF exacerbation with EF 20-25% and stage III diastolic, Continue diuresis as tolerated BiPAP nightly and PRN shortness of breath --A. fib On apixaban at home Plan: Patient needs to be off novel anticoagulants for at least 48 hours since the last dose to decrease the risk of bleeding. Given the patient got apixaban 2.5 mg in the morning 03/31/20, plan for thoracentesis to be done today. Continue with diuretics (2) CHF (congestive heart failure): Heart failure chronicity: acute on chronic Heart failure type: unspecified Qualified Code(s): I50.9 - Heart failure, unspecified (3) Stented coronary artery: Admission and Anticipated Discharge Date Admission Date: March 29, 2020 Subjective Patient seen and examined at bedside. No acute distress, no adverse events overnight. Shortness of breath is getting better. Denies any chest pain, no dizziness. No cough, no fever or chills. Good appetite. Review of Systems Review of Systems: All systems reviewed & are unremarkable except as noted in HPI & below Physical Exam Physical Exam: Constitutional: No acute distress HEENT: EOMI, PERRLA Respiratory system: Decreased air entry bilaterally, no wheeze, no rhonchi, positive crackles bilateral lower lobes CVS: S1-S2 positive, positive 2 out of 6 systolic murmur murmur appreciated best at the aorta Abdomen: Soft, nontender, nondistended, positive bowel sounds x4 Extremities: +2 pulses bilaterally radialis, no cyanosis, right lower extremity bruising appreciated with +1 edema. Neuro: Awake alert oriented x3 Psych: Normal mood and affect G/U: No Carl[place] Skin: Trauma: + contusion Lymphatic: no cervical or axillary lymphadenopathy Results & Data Results & Data ([facility]) Vital Signs (Past 12 Hours) Vital Signs Temp Pulse Pulse Resp BP Pulse Ox 04/02/20 07:53 36.3 C L 80 20 144/81 H 96 04/02/20 04:05 36.4 C L 61 20 148/72 H 96 04/02/20 02:47 60 04/02/20 00:00 37.0 C 61 20 137/62 92 04/02/20 05:16 04/02/20 05:16 PG Care Time/CCT Total # of Minutes Spent Total Time Spent with Patient: Total time spent is greater than 50% in coordination of care (as documented) at patient's floor/unit and/or counseling patient: Coding Level of Care Code 09384 Subseq Hosp Care Lvl 3 Diagnoses Acute respiratory failure with hypoxia J96.01 CHF (congestive heart failure) I50.9 Heart failure chronicity: acute on chronic Heart failure type: unspecified Stented coronary artery Z95.5
--- NOTE | 2020-04-02 15:53 | Procedure Note ---
Procedure Note Date of Service April 02, 2020 Procedure: Diagnostic therapeutic ultrasound-guided catheter thoracentesis Dipping Machine Operator: Dr. Kisha Baxter Indication: Pleural effusion Consent: Signed by patient and verified with timeout prior to procedure Anesthesia: 1% lidocaine without epinephrine local. Procedure: Consent was verified and timeout performed. Appropriate imaging studies were reviewed prior to the procedure. Patient was placed in a seated position and limited thoracic ultrasound was performed of the right chest. See separate imaging. Appropriate site above the diaphragm for thoracentesis was selected. The skin was prepped and draped in normal sterile fashion. Lidocaine was used for local analgesia. Fluid was aspirated via the finder needle. A small skin adelaida was made with the scalpel and the catheter over the needle apparatus was advanced over the rib into the pleural space. Using the syringe one-way valve system, a total of 1700 mL's of serous fluid was removed. The catheter was removed and observed to be intact. A sterile dressing was applied. Post procedure chest x-ray was ordered. Good lung sliding was appreciated postprocedure. Fluid was sent for labs, culture and cytology. Blood loss: Less than 3 cc Complications: None Coding CPT Codes Pulmonary/Thoracic - Pulmonary and Thoracic: 51972 Thoracentesis w imaging ([id number]) [facility] Procedure Codes (Charges) Pulmonary/Thoracic Procedure 1: Pulmonary and Thoracic: 01246 Thoracentesis w imaging
[2020-04-02 16:20] LABS: Bilirubin,Total 0.4 mg/dl (0.2-1); Total Protein 7.7 gm/dl (6.4-8.2)
[2020-04-02 16:49] LABS: Glucose Pleural Fluid 186 mg/dl
--- NOTE | 2020-04-02 16:59 | XRay Report ---
XR chest 1V portable CLINICAL HISTORY: S/P Thoracentesis post procedure COMPARISON STUDY: 03/30/2020 FINDINGS: Interval reduction in volume of a right pleural effusion postthoracentesis. No evidence for postprocedural pneumothorax. Left pleural effusion is again noted. The heart remains moderately enlarged. IMPRESSION: No evidence for pneumothorax post thoracentesis. ACT 112: Negative or not required by law. The above report was generated using voice recognition software. It may contain grammatical, syntax or spelling errors. Electronically signed by: Kyle Villarreal M.D. 04/02/2020 4:57 PM
[2020-04-02 17:03] LABS: Amylase Pleural Fluid 14 U/L; LDH Pleural Fluid 59 U/L
[2020-04-02 18:08] LABS: Appearance Pleural Fluid CLEAR; Basophils, Fluid 0 %; Color Pleural Fluid YELLOW; Eosinophils, Fluid 0 %; Lymphocytes, Fluid 39 %; Mono,Macrophage,Mesothelial 40 %; Neutrophils, Fluid 21 %; RBC Pleural Fluid (A) < 3000 /uL; Source Pleural Fluid RIGHT LUNG; WBC Pleural Fluid (A) 179 /uL
[2020-04-02] MEDS: AMIODARONE 200 MG TAB PO SCH (20:56)
[2020-04-02] MEDS: MAGNESIUM OXIDE 400 MG TAB PO SCH (20:56)
[2020-04-02] MEDS: TRAZODONE HCL 50 MG TAB PO SCH (21:02)
[2020-04-02] MEDS: ACETAMINOPHEN 325 MG TAB PO PRN (21:02)
[2020-04-03] MEDS: CIPROFLOXACIN 250 MG TAB PO SCH (05:49)
[2020-04-03] MEDS: LEVOTHYROXINE SODIUM 75 MCG TABLET PO SCH (05:49)
[2020-04-03] MEDS: CHOLECALCIFEROL 1,000 UNITS 25 MCG TAB PO SCH (09:08)
[2020-04-03] MEDS: TICAGRELOR 90 MG TAB PO SCH ×2 (09:08→21:10)
[2020-04-03] MEDS: MULTIVITAMIN TAB PO SCH (09:08)
[2020-04-03] MEDS: carvediloL 6.25 MG TAB PO SCH ×2 (09:09→17:04)
[2020-04-03] MEDS: RANOLAZINE 500 MG ER TAB PO SCH ×2 (09:09→21:10)
[2020-04-03] MEDS: carvediloL 3.125 MG TAB PO SCH ×2 (09:09→17:04)
[2020-04-03] MEDS: INSULIN ASPART 100 UNITS/ML 3 ML PEN SC SCH ×4 (09:10→21:14)
[2020-04-03] MEDS: BUMETANIDE 1 MG in SYRINGE 0 ML IV SCH ×2 (09:15→17:05)
--- NOTE | 2020-04-03 10:05 | Pulmonology Progress Note ---
Date of Service April 03, 2020 Assessment & Plan (1) Acute respiratory failure with hypoxia: --Bilateral pleural effusion This has been chronic likely from underlying systolic and diastolic CHF Patient had thoracentesis done on the left side more than 3 years ago when she was complaining of shortness of breath As per the patient it helped her breathe better. S/p thoracentesis right-sided 04/02/2020, 1700 mL removed, serous, transudative as per lights criteria. -- Acute hypoxic respiratory failure Secondary to CHF exacerbation with EF 20-25% and stage III diastolic, Continue diuresis as tolerated BiPAP nightly and PRN shortness of breath --A. fib On apixaban at home Plan: Status post right-sided thoracentesis 04/02/2020. Patient is still off apixaban. She willing to have left-sided thoracentesis done as well. We will do left-sided thoracentesis today. (2) CHF (congestive heart failure): Heart failure chronicity: acute on chronic Heart failure type: unspecified Qualified Code(s): I50.9 - Heart failure, unspecified (3) Stented coronary artery: Admission and Anticipated Discharge Date Admission Date: March 29, 2020 Subjective Patient seen and examined at bedside. No acute distress, no adverse events overnight. Patient said the shortness of breath is improved after taking the fluid out from the right side. Denies any chest pain, no headache, no nausea, no vomiting. Good appetite. Review of Systems Review of Systems: All systems reviewed & are unremarkable except as noted in HPI & below Physical Exam Physical Exam: Constitutional: No acute distress HEENT: EOMI, PERRLA Respiratory system: Decreased air entry on the left no wheeze, no rhonchi, positive crackles bilateral lower lobes CVS: S1-S2 positive, positive 2 out of 6 systolic murmur murmur appreciated best at the aorta Abdomen: Soft, nontender, nondistended, positive bowel sounds x4 Extremities: +2 pulses bilaterally radialis, no cyanosis, right lower extremity bruising appreciated with +1 edema. Neuro: Awake alert oriented x3 Psych: Normal mood and affect G/U: No Carlton Skin: Trauma: + contusion Lymphatic: no cervical or axillary lymphadenopathy Results & Data Results & Data ([facility]) Vital Signs (Past 12 Hours) Vital Signs Temp Pulse Resp BP Pulse Ox 04/03/20 07:00 36.6 C 69 18 100/51 L 94 04/03/20 02:59 36.9 C 62 18 108/51 L 91 04/02/20 23:52 36.8 C 68 18 93/56 L 95 04/02/20 05:16 04/02/20 05:16 PG Care Time/CCT Total # of Minutes Spent Total Time Spent with Patient: Total time spent is greater than 50% in coordination of care (as documented) at patient's floor/unit and/or counseling patient: Coding Level of Care Code 77134 Subseq Hosp Care Lvl 3 Diagnoses Acute respiratory failure with hypoxia J96.01 CHF (congestive heart failure) I50.9 Heart failure chronicity: acute on chronic Heart failure type: unspecified Stented coronary artery Z95.5
--- NOTE | 2020-04-03 11:14 | Procedure Note ---
Procedure Note Date of Service April 03, 2020 Procedure: Diagnostic therapeutic ultrasound-guided catheter thoracentesis Rehabilitation Engineer: Dr. Kisha Baxter Indication: Pleural effusion Consent: Signed by patient and verified with timeout prior to procedure Anesthesia: 1% lidocaine without epinephrine local. Procedure: Consent was verified and timeout performed. Appropriate imaging studies were reviewed prior to the procedure. Patient was placed in a seated position and limited thoracic ultrasound was performed of the left chest. See separate imaging. Appropriate site above the diaphragm for thoracentesis was selected. The skin was prepped and draped in normal sterile fashion. Lidocaine was used for local analgesia. Fluid was aspirated via the finder needle. A small skin adelaida was made with the scalpel and the catheter over the needle apparatus was advanced over the rib into the pleural space. Using the syringe one-way valve system, a total of 850 mL's of serosanguineous, cloudy looking fluid was removed. The catheter was removed and observed to be intact. A sterile dressing was applied. Post procedure chest x-ray was ordered. Good lung sliding on the ultrasound appreciated postprocedure. Fluid was sent for labs, culture and cytology. Blood loss: Less than 2 cc Complication: None Coding CPT Codes Pulmonary/Thoracic - Pulmonary and Thoracic: 78226 Thoracentesis w imaging ([id number]) [facility] Procedure Codes (Charges) Pulmonary/Thoracic Procedure 2: Pulmonary and Thoracic: 22072 Thoracentesis w imaging
[2020-04-03 11:34] LABS: BUN Creatinine Ratio 16.3 (10-20); Calcium 9.2 mg/dl (8.5-10.1); Creatinine Clr Calc Pharmacy 24.3 ml/min; Est GFR (African American) 27.1; Est GFR (Non-African American) 23.4; Potassium 4.3 mmol/L (3.5-5.1)
[2020-04-03 12:02] LABS: Total Protein Pleural Fluid 3.2 g/dl
[2020-04-03 12:21] LABS: Appearance Pleural Fluid CLEAR; Basophils, Fluid 0 %; Color Pleural Fluid AMBER; Eosinophils, Fluid 0 %; Lymphocytes, Fluid 44 %; Mono,Macrophage,Mesothelial 31 %; Neutrophils, Fluid 22 %; RBC Pleural Fluid (A) 4000 /uL; Source Pleural Fluid LEFT LUNG; WBC Pleural Fluid (A) 703 /uL
--- NOTE | 2020-04-03 13:24 | XRay Report ---
XR chest 1V portable HISTORY: 79 years-old Female s/p thoracentesis follow-up study in a patient with pleural effusions. Status post thoracentesis COMPARISON: Chest radiograph 04/02/2020 TECHNIQUE: Portable AP view of the chest FINDINGS: Cardiac silhouette is enlarged. Aortic valvular endograft with coronary arterial stent grafts. Calcif ied plaque of the thoracic aortic arch. Left subclavian pacer. Small right and trace left pleural eff usions. The left pleural effusion has decreased in size from comparison. No postprocedural pneumothor ax. Persistent right basilar opacities. There is improved aeration of the left lung base. Degenerativ e changes of the shoulders and spine. IMPRESSION: Decreased size of the left pleural effusion status post thoracentesis. No postprocedural pneumothorax identified. ACT 112: Negative or not required by law. The above report was generated using voice recognition software. It may contain grammatical, syntax o r spelling errors. Electronically signed by: Valentino Lerner M.D. 04/03/2020 1:23 PM
[2020-04-03] MEDS: ALUMINUM/MAGNESIUM SUSP 30 ML UDC PO PRN (17:03)
[2020-04-03] MEDS: DIGOXIN 0.125 MG TAB PO SCH (17:03)
[2020-04-03] MEDS ORDERED: MECLIZINE 12.5 MG TAB PO STA (20:58)
[2020-04-03] MEDS: AMIODARONE 200 MG TAB PO SCH (21:10)
[2020-04-03] MEDS: MAGNESIUM OXIDE 400 MG TAB PO SCH (21:10)
[2020-04-03] MEDS: TRAZODONE HCL 50 MG TAB PO SCH (21:41)
--- NOTE | 2020-04-03 22:40 | Hospitalist Progress Note ---
Date of Service April 03, 2020 Assessment & Plan (1) CHF (congestive heart failure): Ms. Barry is an 79yo with a PMHx of CAD s/p SD with stent placement, severe aortic stenosis s/p TAVR, ischemic cardiomyopathy with EF 25-30%, biventricular CHF, pacer for Hx of sinus bradycardia, CKD, atrial fibrillation and atrial flutter, prior DVT, ?COPD/asthma, peripheral artery disease, GERD, DMII, HLD and HTN who presents with CHF exacerbation. Acute on Chronic Systolic and Diastolic Congestive Heart Failure Acute respiratory failure with hypoxia -Patient continues ro require supplement oxygen. -will continue to diurese. -clinically appears to be improving. -Does not use oxygen at baseline. -chest XR with progression of pulm congestion, cephalization of vessels from March 27 -Echo 11/2019 with EF 25-30%, Grade II diastolic dysfunction, and septal abnormality. -continue with IV Bumex 1mg BID- consider limiting use given Cr function. Holding home PO Bumex. -thoracocenthesis x2 bilaterally. -scheduled duonebs for wheezing, hold home albuterol Elevated Troponins -elevated to 0.1 on admission -Likely due to demand ischemia -has chronic trop elevation -trending down UTI -pt with UTI diagnosed by PCP on March 27 -Urine Cx growing E. coli, sensitivities pending: -first dose of Bactrim prescribed by PCP was night of March 27 but caused N/V -will hold Bactrim and was on Rocephin. -Due to concern over possible resistance as carbapenem resistant, will switch to cipro. -Patient is improving in regards to her symptoms. RLE Trauma -Pt with Hx of fall and significant bruising on RLE -will consult ortho if further procedures are required -US/soft tissue biopsy showed a hematoma -of note pt on Eliquis for Hx of atrial fibrillation/flutter and Brilinta for Hx of stent placements (see below) -continue Eliquis and Brilinta-No signs of compartment syndrome. Atrial Fibrillation/Atrial Flutter -continue with home amiodarone 200mg, digoxin 125mcg and carvedilol 9.375mg -continue home Eliquis 2.5mg BID CAD s/p stent placement -continue home Brilinta 90mg Hx of Angina -cont home ranolazine 500mg BID Hypothyroidism -continue home levothyroxine 75mcg DMII -hgbA1c of 6.4 in 03/2020 -hold home insulin -ISS while hospitalized Chronic kidney disease, stage 4 -baseline Cr of ~1.61 in December 2019 -currently elevated to 1.97 Insomnia -continue home trazodone 50mg HS Constipation -continue home Miralax as needed GERD -continue home pantoprazole 40mg daily HTN -continue carvedilol 9.375mg as above HLD -not currently on a statin FEN/GI: Low sodium, DMII diet DVT prophylaxis: continue home Eliquis CODE STATUS: Full Admission and Anticipated Discharge Date Admission Date: March 29, 2020 Subjective 79 yo female reports feeling better, BUT STILL NOT AT BASELINE. She has no new complaints. Review of Systems Review of Systems: All systems reviewed & are unremarkable except as noted in HPI & below Physical Exam Physical Exam: General: Alert, oriented No longer appears in distress. Skin: RLE extremity with bruising Psych: Appropriate mood and affect Neuro: No gross deficits HEENT: NC/AT, neck retractions Chest: Nontender to palpation. rales. CV: RRR, Blowing murmur appreciated Resp: Breath sounds with decreased crackles. No wheezing Abdomen: Soft, nontender, nondistended. No guarding. No organomegaly appreciated. Extremities: No edema in lower extremities bilaterally. RLE with redness an bruising Results & Data Results & Data ([facility]) Vital Signs (Past 12 Hours) Vital Signs Temp Pulse Pulse Resp BP Pulse Ox 04/03/20 19:28 36.8 C 63 18 138/74 91 04/03/20 17:03 64 04/03/20 15:25 36.7 C 63 18 135/61 94 04/03/20 15:12 60 PG Care Time/CCT Total # of Minutes Spent Total Time Spent with Patient: Total time spent is greater than 50% in coordination of care (as documented) at patient's floor/unit and/or counseling patient: Coding Level of Care Code 91704 Subseq Hosp Care Lvl 2 Diagnoses CHF (congestive heart failure) I50.9 Heart failure chronicity: acute on chronic Heart failure type: unspecified Time Spent (min) 25 (1) CHF (congestive heart failure) Heart failure chronicity: acute on chronic Heart failure type: unspecified Qualified Code(s): I50.9 - Heart failure, unspecified
[2020-04-04 00:24] LABS: Appearance Urine Clear (Clear); Bacteria Urine Automated Negative (Negative); Bilirubin Urine Negative (Negative); Blood Urine Negative (Negative); Color Urine Yellow; Epithelial Cell Urine Auto >30 /lpf (0-5); Glucose Urine UA Negative (Negative); Ketones Urine Negative (Negative); Leukocyte Esterase Urine Trace (Negative); Nitrite Urine Negative (Negative); Protein Urine Negative (Negative); RBC Urine Automated 0-4 /hpf (0-4); Specific Gravity Urine 1.015 (1.000-1.030); Urobilinogen Urine Negative (Negative); pH Urine 5.5 (4.5-7.5)
[2020-04-04] MEDS: CIPROFLOXACIN 250 MG TAB PO SCH ×2 (01:37→17:22)
[2020-04-04] MEDS: LEVOTHYROXINE SODIUM 75 MCG TABLET PO SCH (06:04)
[2020-04-04] MEDS: INSULIN ASPART 100 UNITS/ML 3 ML PEN SC SCH ×4 (08:15→21:42)
[2020-04-04] MEDS: CHOLECALCIFEROL 1,000 UNITS 25 MCG TAB PO SCH (08:16)
[2020-04-04] MEDS: carvediloL 6.25 MG TAB PO SCH ×2 (08:16→17:22)
[2020-04-04] MEDS: MULTIVITAMIN TAB PO SCH (08:16)
[2020-04-04] MEDS: carvediloL 3.125 MG TAB PO SCH ×2 (08:16→17:23)
[2020-04-04] MEDS: RANOLAZINE 500 MG ER TAB PO SCH ×2 (08:16→21:41)
[2020-04-04] MEDS: TICAGRELOR 90 MG TAB PO SCH ×2 (08:16→21:40)
[2020-04-04 09:38] LABS: Calcium 8.9 mg/dl (8.5-10.1); Creatinine Clr Calc Pharmacy 24.6 ml/min; Est GFR (African American) 27.5; Est GFR (Non-African American) 23.7
--- NOTE | 2020-04-04 11:09 | Pulmonology Progress Note ---
Date of Service April 04, 2020 Assessment & Plan (1) Acute respiratory failure with hypoxia: --Bilateral pleural effusion This has been chronic likely from underlying systolic and diastolic CHF Patient had thoracentesis done on the left side more than 3 years ago when she was complaining of shortness of breath As per the patient it helped her breathe better. Status post thoracentesis right-sided 04/02/2020, 1700 mL removed, serous, transudative as per lights criteria. Status post thoracentesis left-sided 04/03/2020, 850 mL removed, exudative looking at LDH as per lights criteria. Please follow-up cytology for it. -- Acute hypoxic respiratory failure Secondary to CHF exacerbation with EF 20-25% and stage III diastolic, Continue diuresis as tolerated BiPAP nightly and PRN shortness of breath --A. fib On apixaban at home Plan: From pulmonary perspective patient is doing much better with her shortness of breath. A right-sided pleural effusion was transudative but the left-sided pleural effusion was exudative looking at LDH. Would recommend to follow-up on the cytology on the left-sided pleural effusion. No further recommendations from pulmonary perspective. Will sign off please recall if needed. (2) CHF (congestive heart failure): Heart failure chronicity: acute on chronic Heart failure type: unspecified Qualified Code(s): I50.9 - Heart failure, unspecified (3) Stented coronary artery: Admission and Anticipated Discharge Date Admission Date: March 29, 2020 Subjective Patient seen and examined at bedside. No acute distress, no adverse events overnight. States that the shortness of breath is significantly improved since coming to the hospital. Thoracentesis had helped her a lot. She does complain of dizziness/being wobbly on walking. Denies any palpitations. Good appetite, no nausea or vomiting. Review of Systems Review of Systems: All systems reviewed & are unremarkable except as noted in HPI & below Physical Exam Physical Exam: Constitutional: No acute distress HEENT: EOMI, PERRLA Respiratory system: Decreased air entry on the left no wheeze, no rhonchi, posi tive crackles bilateral lower lobes CVS: S1-S2 positive, positive 2 out of 6 systolic murmur murmur appreciated best at the aorta Abdomen: Soft, nontender, nondistended, positive bowel sounds x4 Extremities: +2 pulses bilaterally radialis, no cyanosis, right lower extremity bruising appreciated with +1 edema. Neuro: Awake alert oriented x3 Psych: Normal mood and affect G/U: No [place] Skin: Trauma: + contusion Lymphatic: no cervical or axillary lymphadenopathy Results & Data Results & Data ([facility]) Vital Signs (Past 12 Hours) Vital Signs Temp Pulse Pulse Resp BP Pulse Ox 04/04/20 06:42 36.4 C L 69 16 135/72 92 04/04/20 04:01 36.6 C 69 18 128/74 93 04/04/20 02:18 60 04/03/20 23:28 36.9 C 59 L 18 133/74 92 04/02/20 05:16 04/04/20 08:52 PG Care Time/CCT Total # of Minutes Spent Total Time Spent with Patient: Total time spent is greater than 50% in coordination of care (as documented) at patient's floor/unit and/or counseling patient: Coding Level of Care Code 62064 Subseq Hosp Care Lvl 3 Diagnoses Acute respiratory failure with hypoxia J96.01 CHF (congestive heart failure) I50.9 Heart failure chronicity: acute on chronic Heart failure type: unspecified Stented coronary artery Z95.5
[2020-04-04 15:16] LABS: Creatine Kinase 46 U/L (26-192); NT Pro B Type Natriuretic Pept 2788 pg/ml (0-1800)
[2020-04-04] MEDS: AMIODARONE 200 MG TAB PO SCH (21:40)
[2020-04-04] MEDS: TRAZODONE HCL 50 MG TAB PO SCH (21:40)
[2020-04-04] MEDS: APIXABAN 2.5 MG TAB PO SCH (21:41)
[2020-04-04] MEDS: MAGNESIUM OXIDE 400 MG TAB PO SCH (21:41)
--- NOTE | 2020-04-04 22:56 | Hospitalist Progress Note ---
Date of Service April 04, 2020 Assessment & Plan (1) CHF (congestive heart failure): Ms. Barry is an 79yo with a PMHx of CAD s/p NM with stent placement, severe aortic stenosis s/p TAVR, ischemic cardiomyopathy with EF 25-30%, biventricular CHF, pacer for Hx of sinus bradycardia, CKD, atrial fibrillation and atrial flutter, prior DVT, ?COPD/asthma, peripheral artery disease, GERD, DMII, HLD and HTN who presents with CHF exacerbation. Acute on Chronic Systolic and Diastolic Congestive Heart Failure Acute respiratory failure with hypoxia -Patient continues ro require supplement oxygen. -will continue to diurese. -clinically appears to be improving. -Does not use oxygen at baseline. -chest XR with progression of pulm congestion, cephalization of vessels from March 27 -Echo 11/2019 with EF 25-30%, Grade II diastolic dysfunction, and septal abnormality. -Patient appears to be euvolemic, however will hold off PO Bumex. -thoracocenthesis x2 bilaterally. -scheduled duonebs for wheezing, hold home albuterol Elevated Troponins -elevated to 0.1 on admission -Likely due to demand ischemia -has chronic trop elevation -trending down UTI -pt with UTI diagnosed by PCP on March 27 -Urine Cx growing E. coli, sensitivities pending: -first dose of Bactrim prescribed by PCP was night of March 27 but caused N/V -will hold Bactrim and was on Rocephin. -Due to concern over possible resistance as carbapenem resistant, will switch to cipro. -Patient is improving in regards to her symptoms. RLE Trauma -Pt with Hx of fall and significant bruising on RLE -will consult ortho if further procedures are required -US/soft tissue biopsy showed a hematoma -of note pt on Eliquis for Hx of atrial fibrillation/flutter and Brilinta for Hx of stent placements (see below) -continue Eliquis and Brilinta-No signs of compartment syndrome. Atrial Fibrillation/Atrial Flutter -continue with home amiodarone 200mg, digoxin 125mcg and carvedilol 9.375mg -continue home Eliquis 2.5mg BID CAD s/p stent placement -continue home Brilinta 90mg Hx of Angina -cont home ranolazine 500mg BID Hypothyroidism -continue home levothyroxine 75mcg DMII -hgbA1c of 6.4 in 03/2020 -hold home insulin -ISS while hospitalized Chronic kidney disease, stage 4 -baseline Cr of ~1.61 in December 2019 -currently elevated to 1.97 Insomnia -continue home trazodone 50mg HS Constipation -continue home Miralax as needed GERD -continue home pantoprazole 40mg daily HTN -continue carvedilol 9.375mg as above HLD -not currently on a statin FEN/GI: Low sodium, DMII diet DVT prophylaxis: continue home Eliquis CODE STATUS: Full If orthostasis improves, will discharge in AM. Admission and Anticipated Discharge Date Admission Date: March 29, 2020 Subjective 79 yo female reports having orthostatic symptoms. She gets dizzy when she ambulates. Review of Systems Review of Systems: All systems reviewed & are unremarkable except as noted in HPI & below Physical Exam Physical Exam: General: Alert, oriented No longer appears in distress. Skin: RLE extremity with bruising Psych: Appropriate mood and affect Neuro: No gross deficits HEENT: NC/AT, neck retractions Chest: Nontender to palpation. rales. CV: RRR, Blowing murmur appreciated Resp: Breath sounds with decreased crackles. No wheezing Abdomen: Soft, nontender, nondistended. No guarding. No organomegaly appreciated. Extremities: No edema in lower extremities bilaterally. RLE with redness an bruising Results & Data Results & Data ([facility]) Vital Signs (Past 12 Hours) Vital Signs Temp Pulse Pulse Resp BP BP Pulse Ox 04/04/20 20:04 36.4 C L 71 18 118/53 L 97 04/04/20 17:15 73 123/55 L 04/04/20 14:38 96 04/04/20 14:20 60 04/04/20 11:00 36.7 C 60 18 129/68 96 PG Care Time/CCT Total # of Minutes Spent Total Time Spent with Patient: Total time spent is greater than 50% in coordination of care (as documented) at patient's floor/unit and/or counseling patient: Coding Level of Care Code 75264 Subseq Hosp Care Lvl 3 Diagnoses CHF (congestive heart failure) I50.9 Heart failure chronicity: acute on chronic Heart failure type: unspecified Time Spent (min) 35 (1) CHF (congestive heart failure) Heart failure chronicity: acute on chronic Heart failure type: unspecified Qualified Code(s): I50.9 - Heart failure, unspecified
[2020-04-05] MEDS: LEVOTHYROXINE SODIUM 75 MCG TABLET PO SCH (06:42)
[2020-04-05] MEDS: RANOLAZINE 500 MG ER TAB PO SCH (07:50)
[2020-04-05] MEDS: TICAGRELOR 90 MG TAB PO SCH (07:50)
[2020-04-05] MEDS: carvediloL 6.25 MG TAB PO SCH (07:50)
[2020-04-05] MEDS: CHOLECALCIFEROL 1,000 UNITS 25 MCG TAB PO SCH (07:50)
[2020-04-05] MEDS: MULTIVITAMIN TAB PO SCH (07:50)
[2020-04-05] MEDS: APIXABAN 2.5 MG TAB PO SCH (07:50)
[2020-04-05] MEDS: carvediloL 3.125 MG TAB PO SCH (07:50)
[2020-04-05] MEDS: INSULIN ASPART 100 UNITS/ML 3 ML PEN SC SCH ×2 (08:37→12:28)
[2020-04-05] MEDS ORDERED: BUMETANIDE 1 MG TAB PO SCH (09:00)
[2020-04-05 09:08] LABS: Hematocrit (blood only) 33.6 % (37-47); Hemoglobin 10.5 g/dL (12.0-16.0); Mean Corpuscular Hemoglobin 31.2 pg (25-34); Mean Corpuscular Hgb Conc 31.3 g/dL (32-36); Mean Corpuscular Volume 99.7 fL (80-100); Mean Platelet Volume 10.6 fL (7.4-10.4); Platelet Count 317 K/uL (130-400); RDW Coefficient of Variation 14.7 % (11.5-14.5); RDW Standard Deviation 53.2 fL (36.4-46.3); Red Blood Count 3.37 M/uL (4.2-5.4); White Blood Count 7.72 K/uL (4.8-10.8)
[2020-04-05 09:32] LABS: BUN Creatinine Ratio 17.9 (10-20); Calcium 8.8 mg/dl (8.5-10.1); Creatinine Clr Calc Pharmacy 25.4 ml/min; Est GFR (African American) 28.5; Est GFR (Non-African American) 24.6; Potassium 4.3 mmol/L (3.5-5.1)
[2020-04-05] MEDS: CIPROFLOXACIN 250 MG TAB PO SCH (11:36)
--- NOTE | 2020-04-12 09:14 | Discharge Summary ---
Date of Service April 05, 2020 Admission HPI Per Admitting Provider Ms. Barry is an 79yo with a PMHx of CAD s/p CT with stent placement, severe aortic stenosis s/p TAVR, ischemic cardiomyopathy with EF 25-30%, biventricular CHF, pacer for Hx of sinus bradycardia, CKD, atrial fibrillation and atrial flutter, prior DVT, ?COPD/asthma, peripheral artery disease, GERD, DMII, HLD and HTN who presents with CHF exacerbation. She states that her symptom of SOB has been persistent for at least he last week, but became intolerable recently which was why she presented to the ED. Does not use oxygen at baseline but requiring 2L here. States this is an ongoing problem for her. Principal Diagnosis Acute on chronic systolic and diastolic Congestive Heart Failure Discharge Exam General: Alert, oriented No longer appears in distress. Skin: RLE extremity with bruising Psych: Appropriate mood and affect Neuro: No gross deficits HEENT: NC/AT, neck retractions Chest: Nontender to palpation. rales. CV: RRR, Blowing murmur appreciated Resp: Breath sounds with decreased crackles. No wheezing Abdomen: Soft, nontender, nondistended. No guarding. No organomegaly appreciated. Extremities: No edema in lower extremities bilaterally. RLE with redness an bruising Discharge Data Allergies Allergy/AdvReac Type Severity Reaction Status Date / Time adhesive Allergy Unknown REDNESS Verified 04/09/20 13:58 AND IRRITATION FROM PAIN PATCH, TAPE dulaglutide [From Trulicity] Allergy Unknown Unknown Verified 04/09/20 13:58 exenatide [From Byetta] Allergy Unknown Unknown Verified 04/09/20 13:58 glipizide Allergy Unknown Unknown Verified 04/09/20 13:58 glyburide Allergy Unknown Unknown Verified 04/09/20 13:58 latex Allergy Unknown ALLERGIC Verified 04/09/20 13:58 TO LATEX TAPE/RASH/ITCHING metformin Allergy Unknown Unknown Verified 04/09/20 13:58 morphine Allergy Unknown swelling Verified 04/09/20 13:58 nausea vomiting olmesartan Allergy Unknown UNKNOWN Verified 04/09/20 13:58 sitagliptin [From Januvia] Allergy Unknown Unknown Verified 04/09/20 13:58 aspirin AdvReac Mild GI SYMPTOMS Verified 04/09/20 13:58 ezetimibe AdvReac Mild MUSCLE Verified 04/09/20 13:58 ACHES lisinopril AdvReac Unknown LIGHTHEADED Verified 04/09/20 13:58 AND DIZZY pioglitazone AdvReac Unknown DIARRHEA Verified 04/09/20 13:58 NAUSEA [id number]-Lbb-Rph Reductase AdvReac Unknown myalgias Verified 04/09/20 13:58 Inhibitor and weakness benzonatate AdvReac confusion Verified 04/09/20 13:58 [From Giovanni Brennan] Consultations 03/29/20 03:21 ED Decision to Admit Stat 03/29/20 04:14 Consult Case Management - Discharge Planning Routine 03/29/20 14:15 [facility] CHF Program Referral Routine 03/30/20 16:23 Consult Orthopedic Surgery Routine 03/31/20 10:26 Consult Pulmonology Routine Ordered Studies 04/02/20 09:06 US point of care ultrasound Urgent 04/03/20 10:04 US point of care ultrasound Urgent Hospital Course (1) CHF (congestive heart failure): Ms. Barry is an 79yo with a PMHx of CAD s/p CT with stent placement, severe aortic stenosis s/p TAVR, ischemic cardiomyopathy with EF 25-30%, biventricular CHF, pacer for Hx of sinus bradycardia, CKD, atrial fibrillation and atrial flutter, prior DVT, ?COPD/asthma, peripheral artery disease, GERD, DMII, HLD and HTN who presents with CHF exacerbation. Acute on Chronic Systolic and Diastolic Congestive Heart Failure Acute respiratory failure with hypoxia -Patient continues ro require supplement oxygen. -improved afterdiuresing 4.5 liters. -clinically appears to be improving. -Does not use oxygen at baseline. -chest XR with progression of pulm congestion, cephalization of vessels from March 27 -Echo 11/2019 with EF 25-30%, Grade II diastolic dysfunction, and septal abnormality. -Patient appears to be euvolemic. -Patient was orthostatic the day prior to discharge, held the Bumex for a day and she improved. -S/P thoracocenthesis x2 (one on each side). -scheduled duonebs for wheezing, hold home albuterol Elevated Troponins -elevated to 0.1 on admission -Likely due to demand ischemia -has chronic trop elevation -trending down UTI -pt with UTI diagnosed by PCP on March 27 -Urine Cx growing E. coli, sensitivities pending: -first dose of Bactrim prescribed by PCP was night of March 27 but caused N/V -will hold Bactrim and was on Rocephin. -Due to concern over possible resistance as carbapenem resistant, will switch to cipro. -Patient is improving in regards to her symptoms. -Completed 3 days of cipro RLE Trauma -Pt with Hx of fall and significant bruising on RLE -will consult ortho: ststae no compression syndrome, graudaly improving with each day. -US/soft tissue biopsy showed a hematoma -of note pt on Eliquis for Hx of atrial fibrillation/flutter and Brilinta for Hx of stent placements (see below) -continue Eliquis and Brilinta-No signs of compartment syndrome. Atrial Fibrillation/Atrial Flutter -continue with home amiodarone 200mg, digoxin 125mcg and carvedilol 9.375mg -continue home Eliquis 2.5mg BID CAD s/p stent placement -continue home Brilinta 90mg Hx of Angina -cont home ranolazine 500mg BID Hypothyroidism -continue home levothyroxine 75mcg DMII -hgbA1c of 6.4 in 03/2020 -hold home insulin -ISS while hospitalized Chronic kidney disease, stage 4 -baseline Cr of ~1.61 in December 2019 -currently elevated to 1.97 Insomnia -continue home trazodone 50mg HS Constipation -continue home Miralax as needed GERD -continue home pantoprazole 40mg daily HTN -continue carvedilol 9.375mg as above HLD -not currently on a statin Total Time Total Time Spent Total Time Spent (In Minutes): 32 Discharge Plan Discharge Items Patient Disposition: Home - Self-Care Reason For Visit: CHF EXACERBATION Discharge Diagnosis: Acute CHF exacerbation Activity: Resume your previous activity Non-emergency contact: Primary Care Provider Call non-emergency contact if: you have any medication questions Follow-up/Referrals: Dr. Latrice Oliveira [Other] - 04/14/20 10:00 am (Please, follow up at [facility] [place] Office with Dr. Oliveira on MondayApril 14 at 10:00 am. *If you need to change this appointment, call the office at [phone].) Latrice Mcmanus PA-C [Physician Statistical Financial Analyst] - 06/25/20 2:00 pm (Please, follow up at [facility] Cardiology Office / CHF Clinic with Urmila Mcmanus PA-C on April 09 at 2:00 pm. *The office is located in [address] of [facility], next to this hospital. If you need to change this appointment, call the office at [phone].) Diet: Heart Healthy and Low Sodium (2gm) Addtl Attending Provider Instructions: You have been hospitalized for an acute medical problem. During your stay at [facility], we have made an effort to correct the problem that brought you to the hospWe recommend a compression stocking or Sudhir wrap around the lower leg however she declined this as she does not want any pressure superficially. She can continue weightbearing as tolerated.ital while keeping you as comfortable as possible. Medications were used to bring your condition under control and your discharge instructions will include directions for any medications you should take after leaving the hospital. Please make sure you see your Primary Care Provider as part of your follow up plan. Call your Primary Care doctor if any of the following symptoms or problems start or get worse: * Shortness of breath or difficulty breathing * Wake up at night short of breath * Chest pain * Cough * Swelling of your hands, feet, or legs * More fatigued or tired with your normal activity * Palpitations - sudden fast heart beats WEIGHT * Weigh yourself every morning after using the bathroom. * Use the same scale. * Wear the same amount of clothing. * Write your weight down on a chart. * Call your Primary Care doctor if you gain more than 2-3 pounds in 1-2 days. MEDICATIONS * Use this discharge instruction sheet for medication instructions. * Take your medications at the time your doctor ordered. * Do not skip a dose of your medicines. * If you miss a dose of medicine, take it as soon as possible, but DO NOT DOUBLE A DOSE. * Read your medicine information when you get home. * Know all of the side effects of your medicine. If in doubt, ask your pharmacist * Call your Primary Care doctor's office if you have any side effects. * Be sure all of your doctors know what medicine and herbs you take (including cold, flu, and herbal medicine). Take the following with you to your follow-up doctor appointments: * Weight Chart * Medication List * List of questions Do not drink excessive alcohol, beer or wine. ''You were found to have fluid in your chest which required more Diuretics. You improved with this. You also had a bilateral thoracocenthesis. You were seen by ortho who recommended a compression stocking or Sudhir wrap around the lower leg You can continue weightbearing as tolerated. Pending Studies at Discharge: No Stand-Alone Forms: My [facility], Smoking Cessation Medications and DC Order Prescriptions: Continued insulin syringe-needle U-100 0.3 mL 31 gauge x 5/16" syringe See Rx Instructions .ROUTE .COMPLEX Qty: 100 RF: 9 Eliquis 2.5 mg tablet 2.5 mg PO BID Qty: 60 RF: 11 OneTouch Verio test strips Strip 1 strip miscellaneous TID Qty: 100 RF: 3 levothyroxine 75 mcg tablet 75 mcg PO DAILY Qty: 90 RF: 3 amiodarone 200 mg tablet 200 mg PO QPM Qty: 90 RF: 3 carvedilol 3.125 mg tablet 3.125 mg PO BID Qty: 90 RF: 3 carvedilol 6.25 mg tablet 6.25 mg PO BID Qty: 135 RF: 3 pantoprazole 40 mg tablet,delayed release (DR/EC) 40 mg PO DAILY PRN (Reason: Stomach Upset) Qty: 90 RF: 3 digoxin 125 mcg (0.125 mg) tablet 125 mcg PO .COMPLEX Qty: 36 RF: 3 garlic 1,000 mg capsule 1,000 mg PO QAM Qty: 30 RF: 0 magnesium oxide 400 mg magnesium capsule 400 mg PO QPM Qty: 90 RF: 0 albuterol sulfate 90 mcg/actuation HFA aerosol inhaler 2 puff INHALATION Q6H PRN (Reason: Shortness Of Breath Or Wheezing) Qty: 8 RF: 1 potassium chloride 20 mEq tablet extended release 20 meq PO QAM RF: 0 cholecalciferol (vitamin D3) 1,000 unit capsule 1,000 units PO QAM RF: 0 bumetanide 1 mg tablet 1 mg PO BID Qty: 180 RF: 3 Brilinta 90 mg tablet 90 mg PO BID Qty: 180 RF: 1 multivitamin [Multiple Vitamins] tablet 1 tab PO QAM RF: 0 ondansetron HCl [Zofran] 8 mg tablet 8 mg PO Q8H PRN (Reason: Nausea) RF: 0 ranolazine 500 mg tablet extended release 12 hr 500 mg PO BID RF: 0 trazodone 50 mg tablet 50 mg PO HS RF: 0 vitamin E 400 unit capsule 400 unit PO QAM RF: 0 polyethylene glycol 3350 [Miralax] 17 gram/dose Powder 17 g PO HS RF: 0 insulin asp prt-insulin aspart [Novolog Mix 70-30 U-100 Insuln] 100 unit/mL (70-30) solution 50 units SUBCUT AMPM Qty: 30 RF: 5 Discontinued sulfamethoxazole-trimethoprim 400-80 mg tablet 1 tab PO BID RF: 0 No Action doxycycline monohydrate 100 mg capsule 100 mg PO BID 10 Days Qty: 20 RF: 0 Discharge Orders: Discharge Order (Routine); Ordered 04/05/20 Ordered By: Bhanu Rueda Admission Data Admit Date/Time: 03/29/20 04:11 Attending Provider: Bhanu Rueda Admit Provider: Ree Borrego Primary Care Provider: Boby Reddy Other Providers: Gabe Guzman ; Latrice Mcmanus ; Anabella Killian ; Yao Pak ; Po Mehta ; Cordell Mares ; Papito Cade ; Sury Kiran ; João Morel ; Garry Dawn ; Aurelio Mejia ; Ovidio Schulte ; Aurelio Rizvi ; Kin Benedict V ; Atnonietta De La Vega ; Kisha Baxter Other Interventions: Discharge Summary Assessment (RN) Last Done: 04/05/20 12:07 DC Date/Time DO NOT enter until pt leaves facility: 04/05/20 13:00 Coding Level of Care Code D/C Day Management >30 mins Diagnoses CHF (congestive heart failure) I50.9 Heart failure chronicity: acute on chronic Heart failure type: unspecified Time Spent (min) 32
== END 2020-04-05 13:00 | disposition home or self-care (01) | DRG 291 ==
LOC: ED 01:29 → SUATTDRO 04:11 → 2W 04:11 → 2N 19:43

== ENCOUNTER 2020-04-30 06:53 | Inpatient (IN) ==
[2020-04-30] MEDS ORDERED: MIDAZOLAM HCL 5 MG/ML 1 ML VIAL ONE (07:24)
[2020-04-30] MEDS ORDERED: LIDOCAINE HCL 1% 20 ML VIAL ONE (07:24)
[2020-04-30] MEDS ORDERED: BACITRACIN OINT 0.9 GM PKT ONE (07:25)
[2020-04-30] MEDS ORDERED: BACITRACIN INJ 50,000 UNIT VIAL ONE (07:25)
[2020-04-30] MEDS ORDERED: CEFAZOLIN 250 MG/ML 1 GM VIAL ONE (07:25)
[2020-04-30] MEDS ORDERED: fentaNYL citrate 100 MCG/2 ML VIAL ONE (07:25)
--- NOTE | 2020-04-30 07:59 | History & Physical Bridge Note ---
Date of Service April 30, 2020 History & Physical Bridge Note I have examined the patient, reviewed the History & Physical and in the interval since the performance of the History & Physical I have noted the following changes of clinical significance: no changes noted. I reviewed the indications, procedure, risks and alternatives with her and she understands and agrees to proceed. I reviewed sedation as well and she agrees. Consent for the procedure and sedation obtained.
--- NOTE | 2020-04-30 08:00 | Pre Anesthesia Assessment ---
Date of Service April 30, 2020 Pre Sedation Assessment Vital Signs Temp Pulse Resp BP Pulse Ox 04/30/20 07:04 36.7 C 71 24 175/90 H 95 Cardiovascular RRR, no murmur, no edema Respiratory normal respiratory effort, lungs clear to auscultation Pre-Sedation Airway Assessment Smoking Status: Never smoker Hx Sleep Apnea: No Hx Difficult Intubation: No Short, Thick Neck: No Thyromental Distance: > or= 3.5 Finger Breadths Oral Cavity: + Dentures Mallampati Class: III ASA: ASA3 NPO Status Date of Last Intake of Fluids: 04/29/20 Time of Last Intake of Fluids: 21:00 Date of Last Intake of Solid Food: 04/29/20 Time of Last Intake of Solid Foods: 21:00 Procedure Planning Contraindications for Sedation: none Current Medications Reviewed: Yes Notes The planned sedation has been discussed with the patient. Informed Consent was obtained. I have identified the patient, determined the appropriateness of sedation and have assessed the patient immediately prior to the procedure. All medicine(s) and interventions are by my order.
[2020-04-30] MEDS ORDERED: ONDANSETRON INJ 2 MG/ML 2 ML VIAL ONE (08:13)
[2020-04-30] MEDS ORDERED: METOPROLOL TARTRATE 1 MG/ML VIAL IV ONE (09:53)
[2020-04-30] MEDS ORDERED: ACETAMINOPHEN W/CODEINE #3 1 TAB PO PRN (10:12)
[2020-04-30] MEDS ORDERED: ACETAMINOPHEN 325 MG TAB PO PRN (10:12)
--- NOTE | 2020-04-30 10:12 | Electrophysiology Report ---
Date of Service April 30, 2020 Electrophysiology Procedure Electrophysiology Procedure Report Preoperative diagnosis: Cardiomyopathy Dual-chamber pacemaker Postoperative diagnosis: Same Procedure: Left subclavian venogram ICD lead implantation Coronary sinus angiogram Left ventricular lead implantation Dual-chamber pacemaker explantation Biventricular ICD implantation Surgeon: Davion Alvarez MD Estimated blood loss: 30 cc Complications: None Disposition: Conference Services Coordinator recovery Procedure details: Dye was injected the left arm IV site to opacify the left subclavian vein. The subclavian vein was identified and found to be free of ob struction. Left axillary venipuncture was performed and a guidewire placed through left subclavian vein into the right atrium. A 2 cm incision was made through the old implant scar and carried down to the pectoralis fascia. A 10- 1/2 Micronesian Medtronic lead introducer was placed over the guidewire into the left subclavian vein. The dilator and guidewire removed and a bipolar active fixation dual coil defibrillator lead was advanced through the introducer. Access to the right atrium could not be obtained therefore the sheath was exchanged for a long 10-1/2 Micronesian sheath and the defibrillator lead was successfully placed in the right atrium. Using a curved stylette the lead was advanced through the right record outflow tract into the pulmonary artery and then using a straight stylette was positioned in the right ventricular apex. The screw was extended fixing the lead in position. Pacing and sensing was evaluated as noted on the implant data sheet. This lead was attached to the ant erior pectoral fascia using 1 suture of 2-0 silk around the lead collar. A Kent coronary sinus sheath was advanced to position in the right atrium. It was positioned near the coronary sinus, dye was injected to opacify the office of the coronary sinus and a guidewire was advanced into the coronary sinus. The sheath system was advanced into the coronary sinus. Dye was injected in the coronary sinus in various projections to identify the venous branches. A good branch was identified and a 0.014 inch guidewire was advanced into the branch. A left ventricular lead was advanced over the guidewire into good position. The pacing threshold was evaluated in this position as noted on the implant data sheet. The sheath system was then removed from the lead and the lead was attached to the anterior pectoral fascia using 2 sutures of 2-0 silk around the lead collar. Another suture of 2-0 silk was placed around the ventricular lead collar. The pacemaker pocket was opened by further anesthetizing along the original implant site and incision was made through the scar and carried down to the pacemaker generator. The generator and pacemaker leads were dissected free of tissue and the pacemaker explanted. The leads were disconnected from the generator and a new biventricular ICD was attached to these leads as well as the coronary sinus lead. The ventricular pacemaker lead was capped. The ICD was placed in the pocket with the leads coiled beneath it and enclosed in a Tyrx pouch. The incision was closed with a running double subcutaneous closure of 3-0 Vicryl followed by running subcuticular skin closure of 4-0 Vicryl. Bacitracin ointment was placed on incision and a dressing applied. [facility] [place] Electrophysiology codes Indication for Procedure (1) Cardiomyopathy: (2) Left bundle branch block: (3) CHF (congestive heart failure): Pacing Procedure 1: Pacin BiV electrode w/Pacer / ICD implant, add on code Procedure 2: Pacin Removal Pacer genererator ICD Procedure 1: ICD: 70837 Insert single or dual ICD system Miscellaneous Procedures Procedure 1: EP Miscellaneous: 49469 Contrast injection for venography Procedure 2: EP Miscellaneous: 09006-57 Vengraphy, extremity Procedure 3: EP Miscellaneous: 49541-19 Venography, CS supevsion/interp PG Moderate Sedation Codes Moderate Sedation Codes Procedure 1: Sedation/Anesthesia: 28294 Mod Sedation by the same physician;Init15 Min Child Age 5 & Up Procedure 2: Sedation/Anesthesia: 42325 Mod Sedation by the same physician; Ea [id number] Minutes
[2020-04-30] MEDS ORDERED: ONDANSETRON 4 MG OD TAB PO PRN (10:14)
[2020-04-30] MEDS ORDERED: PANTOprazole 40 MG TAB PO PRN (10:14)
[2020-04-30] MEDS ORDERED: DEXTROSE 50% 50 ML SYRINGE IV PRN (11:45)
[2020-04-30] MEDS ORDERED: GLUCOSE 10 TABS/TUBE PO PRN (11:45)
[2020-04-30] MEDS ORDERED: GLUCOSE 40% GEL 15 GM TUBE PO PRN (11:45)
[2020-04-30] MEDS ORDERED: GLUCAGON FOR INJ 1 MG VIAL IM PRN (11:45)
[2020-04-30] MEDS ORDERED: CARBOHYDRATES FOR HYPOGLYCEMIA PO PRN (11:45)
[2020-04-30] MEDS: INSULIN 70% ASPART PROTAMINE/30% ASPART SQ SCH (17:12)
--- NOTE | 2020-04-30 19:08 | Electrocardiogram Report ---
Test Reason : Blood Pressure : / mmHG Vent. Rate : 065 BPM Atrial Rate : 065 BPM P-R Int : 134 ms QRS Dur : 160 ms QT Int : 490 ms P-R-T Axes : 037 -84 087 degrees QTc Int : 509 ms AV dual-paced rhythm Biventricular pacemaker detected Abnormal ECG When compared with ECG of 29-MAR-2020 01:38, Electronic ventricular pacemaker has replaced Electronic atrial pacemaker Confirmed by Petey Sanchez ([id number]) on 04/30/2020 7:08:21 PM Referred By: Davion Alvarez Confirmed By:Jr Sanchez
[2020-04-30] MEDS: BUMETANIDE 1 MG TAB PO SCH (20:57)
[2020-04-30] MEDS: RANOLAZINE 500 MG ER TAB PO SCH (20:59)
[2020-04-30] MEDS: carvediloL 6.25 MG TAB PO SCH (20:59)
[2020-04-30] MEDS ORDERED: TRAZODONE HCL 50 MG TAB PO SCH (21:00)
[2020-04-30] MEDS ORDERED: AMIODARONE 200 MG TAB PO SCH (21:00)
[2020-04-30] MEDS: carvediloL 3.125 MG TAB PO SCH ×2 (21:00→21:13)
[2020-04-30] MEDS ORDERED: POLYETHYLENE (MIRALAX) 17 GM PACK PO SCH (21:00)
[2020-04-30] MEDS ORDERED: MAGNESIUM OXIDE 400 MG TAB PO SCH (21:00)
[2020-04-30] MEDS: TICAGRELOR 90 MG TAB PO SCH (21:27)
[2020-05-01] MEDS ORDERED: LEVOTHYROXINE SODIUM 75 MCG TABLET PO SCH (06:30)
--- NOTE | 2020-05-01 07:00 | XRay Report ---
XR chest 2V PA/lateral CLINICAL HISTORY: EXACT TIME ORDERED Evaluate for pneumothorax and l COMPARISON STUDY: 04/09/2020 FINDINGS: Interval replacement/revision of the patient's cardiac pacemaker. Current pacemaker leads a re in good position. There is a contained defibrillator component. There is right pleural effusion. There is trace amount pleural fluid left base. No evidence for pneum othorax. IMPRESSION: Pacemaker replacement/revision. Leads are in good position. No evidence for pneumothorax . ACT 112: Negative or not required by law. The above report was generated using voice recognition software. It may contain grammatical, syntax or spelling errors. Electronically signed by: Kyle Villarreal M.D. 05/01/2020 6:58 AM
[2020-05-01 07:41] VITALS: TEMP 97.9
[2020-05-01] MEDS: carvediloL 3.125 MG TAB PO SCH (08:19)
[2020-05-01] MEDS: INSULIN 70% ASPART PROTAMINE/30% ASPART SQ SCH (08:19)
[2020-05-01] MEDS: BUMETANIDE 1 MG TAB PO SCH (08:19)
[2020-05-01] MEDS: RANOLAZINE 500 MG ER TAB PO SCH (08:19)
--- NOTE | 2020-05-01 08:32 | Cardiology Progress Note ---
Date of Service May 01, 2020 Assessment & Plan (1) S/P ICD (internal cardiac defibrillator) procedure: She is doing very well post upgrade from her pacemaker to a biventricular ICD. She feels well, the x-ray looks good, the site looks good and measurements are excellent. She is stable for discharge. Admission and Anticipated Discharge Date Admission Date: April 30, 2020 Subjective She is feeling well, she feels better today even just overnight with biventricular pacing. No significant incisional discomfort. Physical Exam Physical Exam: Her incision is clean and dry, no significant bleeding or swelling. No significant ecchymosis. Lungs are clear Cardiac rhythm is regular with no murmur and no rub Results & Data ([facility]) Vital Signs (Past 12 Hours) Vital Signs Temp Pulse Resp BP Pulse Ox 05/01/20 07:40 36.6 C 63 20 112/65 92 05/01/20 03:49 36.5 C 68 18 105/54 L 93 04/30/20 23:44 36.7 C 63 16 149/68 H 91 04/30/20 20:27 36.5 C 67 20 122/73 91 Diagnostic Findings Postop ECG: Appropriate biventricular pacing, QRS still wide but appropriate morphology Telemetry: Normal pacing ICD evaluation: Excellent pacing and sensing characteristics Chest x-ray: Good lead position, no pneumothorax PG Care Time/CCT Total # of Minutes Spent Total Time Spent with Patient: Total time spent is greater than 50% in coordination of care (as documented) at patient's floor/unit and/or counseling patient: Coding Level of Care Code 03443 Post Operative Follow-Up Diagnoses S/P ICD (internal cardiac defibrillator) procedure Z95.810 CPT Codes Implantable Defib Multi lead programming - 05417 ([id number])
--- NOTE | 2020-05-01 08:38 | Post Anesthesia Assessment ---
Date of Service May 01, 2020 Post Sedation Assessment Vital Signs Temp Pulse Pulse Resp BP BP BP 05/01/20 07:40 36.6 C 63 20 112/65 05/01/20 03:49 36.5 C 68 18 105/54 L 04/30/20 23:44 36.7 C 63 16 149/68 H 04/30/20 20:27 36.5 C 67 20 122/73 04/30/20 16:06 36.4 C L 63 17 132/78 04/30/20 16:00 63 04/30/20 12:53 36.4 C L 63 18 159/72 H 04/30/20 10:45 60 20 150/70 H 04/30/20 10:30 61 20 140/74 04/30/20 10:15 36.7 C 60 20 165/84 H 04/30/20 10:08 70 200/89 H 04/30/20 10:02 36.7 C 62 20 171/85 H Pulse Ox 05/01/20 07:40 92 05/01/20 03:49 93 04/30/20 23:44 91 04/30/20 20:27 91 04/30/20 16:06 91 04/30/20 16:00 04/30/20 12:53 90 04/30/20 10:45 92 04/30/20 10:30 90 04/30/20 10:15 92 04/30/20 10:08 04/30/20 10:02 92 Recovery Score Activity: Moves 4 extremities Respiration: Deep Breath/Cough Circulation: +/-20% PreAnes Value Consciousness: Fully Awake Oxygen Saturation: > 92% On Room Air Post Anesthesia Score: 10 Discharge Sedation Level of Care: Fast Track Phase II Post Sedation Plan On clinical assessment, the patient appears to have tolerated the sedation without complications. Patient is recovering as anticipated. Patient will continue to be monitored by nursing and may be discharged when sedation discharge criteria are met per below protocol. Upon Completions of procedure up to 15 minutes continue every 5 minute vital signs and the P.A.R. score; then discharge to a Phase I or Fast Track to Phase II per the following guidelines: * Discharge Patient to appropriate Phase II area if PAR is 8 or greater or return to pre- procedure baseline. The post - procedure orders will be as directed. * If PAR score is less than 8 or not return to pre-procedure baseline then patient will follow Phase I monitoring till PAR is reached for Phase II. The Phase I may be done in procedure room or may call to secure a Phase I area. * If naloxone or flumazenil are used for reversal, hold in Phase I for continued monitoring from when last reversal dose was given for a minimum of 60 minutes or longer pending the nurse and/or physician discretion of patient condition before discharge to Phase II. Please call the Sedation Physician to re-evaluate and complete post-note for discharge to Phase II area. Do NOT discharge from procedure sedation or Phase 1 until post- sedation evaluation note is complete by procedure /sedation MD Sedation Discharge Instructions to be given to the patient at discharge to home.
[2020-05-01] MEDS ORDERED: POTASSIUM CHLORIDE 20 MEQ TABCR PO SCH (09:00)
[2020-05-01] MEDS ORDERED: TOCOPHERYL, DL-ALPHA 400 UNITS CAP PO SCH (09:00)
[2020-05-01] MEDS ORDERED: MULTIVITAMIN TAB PO SCH (09:00)
[2020-05-01] MEDS ORDERED: CHOLECALCIFEROL 1,000 UNITS 25 MCG TAB PO SCH (09:00)
[2020-05-01] MEDS: TICAGRELOR 90 MG TAB PO SCH (10:24)
[2020-05-01] MEDS: carvediloL 6.25 MG TAB PO SCH (10:24)
[2020-05-01 12:06] VITALS: BP 117/60; PULSE 61; O2SAT 91
[2020-05-01] MEDS ORDERED: DIGOXIN 0.125 MG TAB PO SCH (16:00)
--- NOTE | 2020-05-04 09:16 | Discharge Summary ---
Date of Service May 04, 2020 Admission HPI Per Admitting Provider This is an 79-year-old woman who has a history of carotid disease as well as coronary artery disease dating back at least to identification in 2000. At that time she did not have severe disease, and repeat catheterization 2004 did not show significant change. In 2009 she had ischemia identified and mildly reduced left ventricular function and she also had mild valvular aortic stenosis around that time and was well as moderate mitral regurgitation. Cardiac catheterization on April 22, 2015 showed left ventricular ejection fraction 45-50% with progressive disease but not to the point where intervention was required. Unfortunately she has been intolerant to statins which have been tried multiple times. She then presented on February 01, 2016 in atrial flutter with a rapid ventricular response and underwent urgent cardioversion on February 02, 2016. She was started on amiodarone and was maintained on Xarelto which she was already on for deep vein thrombosis. Xarelto has been replaced with Eliquis. She had progressive carotid disease as well as an occluded proximal left subclavian artery and therefore had left carotid endarterectomy on May 18, 2016. She did present to the hospital on October 10, 2017 with chest discomfort rating down her left arm and slight troponin elevation as well as CHF, with ongoing chest discomfort she did undergo catheterization October 11, 2017 where she had diffuse disease including a small second LAD diagonal with 99% proximal stenosis, however intervention was not performed. Her ejection fraction was 40- 45% at the time by echocardiography. Her aortic valve area by echo was 1.1 cm. She continued to have angina and was admitted November 03, 2017 for LAD intervention with stents placed in the mid LAD and the second diagonal. She presented again with congestive heart failure May 07, 2018 with no change in her ejection fraction. She had an abnormal stress test and therefore catheterization was performed again May 09, 2018 with diffuse nonobstructive coronary disease identified. She was treated medically. She developed intermittent fatigue and near syncope, the symptoms correlated with sinus bradycardia and therefore a dual-chamber pacemaker was implanted on May 14, 2018. She developed recurrent exertional symptoms and catheterization May 2019 showed circumflex stenosis which was stented. Her aortic stenosis worsened and she underwent TAVR at [facility] on November 14, 2019. She also required a right common femoral artery endarterectomy and patch angioplasty. By December 11, 2019 her left ventricular function was measured at 25 to 30%. She had a catheterization on December 18, 2019 where she required intervention of the right coronary artery. She also had other disease. She continued to have difficulty with exertion and on January 10, 2020 had intervention of left main with placement of a drug-eluting stent. She also had angioplasty of her ostial obtuse marginal 1. She continued to have difficulty with exertion, we were unable to titrate her to goal doses due to kidney disease and hypotension. Her intrinsic conduction on her twelve-lead electrocardiogram is extremely wide with a left bundle branch block pattern and a QRS duration of over 150 ms. Her fluid status has not been a problem. A repeat echocardiogram on March 29, 2020 showed normal left ventricular size with ejection fraction of 20 to 25%, moderate mitral regurgitation and a properly functioning bioprosthetic valve She is admitted now for consideration of an upgrade to a biventricular pacemaker in hopes that that will help her symptoms and her left ventricular function. She continues to have difficulty with shortness of breath, she does not have lightheadedness or dizziness and does not have palpitations. She has not noticed significant fluid retention. Admission Exam Per Admitting Provider Constitutional: Alert, cooperative and in no distress. HEENT: Unremarkable Neck: No jugular venous distention, carotid pulses are normal and equal bilaterally without bruits. Pulmonary: Decreased breath sounds bilaterally at the bases on auscultation. Cardiac: Regular rhythm with a grade 2/6 crescendo decrescendo murmur at the base, a soft holosystolic murmur at the apex, no gallop or rub. Abdomen: Soft, nontender with normal bowel sounds. Extremities: No edema. Distal pulses intact. Neurologic: No focal findings. Gait was slow but steady with the use of a cane. Skin: No rash, ecchymoses or petechiae. The pacemaker site on the left is well- healed without erythema, swelling or tenderness. Principal Diagnosis Acute on chronic systolic and diastolic Congestive Heart Failure Discharge Exam Her incision is clean and dry, no significant bleeding or swelling. No significant ecchymosis. Lungs are clear Cardiac rhythm is regular with no murmur and no rub Discharge Data Allergies Allergy/AdvReac Type Severity Reaction Status Date / Time adhesive Allergy Unknown REDNESS Verified 04/14/20 09:57 AND IRRITATION FROM PAIN PATCH, TAPE [facility] Allergy Unknown Unknown Verified 04/14/20 09:57 exenatide [From [place]] Allergy Unknown Unknown Verified 04/14/20 09:57 glipizide Allergy Unknown Unknown Verified 04/14/20 09:57 glyburide Allergy Unknown Unknown Verified 04/14/20 09:57 latex Allergy Unknown ALLERGIC Verified 04/14/20 09:57 TO LATEX TAPE/RASH/ITCHING metformin Allergy Unknown Unknown Verified 04/14/20 09:57 morphine Allergy Unknown swelling Verified 04/14/20 09:57 nausea vomiting olmesartan Allergy Unknown UNKNOWN Verified 04/14/20 09:57 sitagliptin [From Januvia] Allergy Unknown Unknown Verified 04/14/20 09:57 aspirin AdvReac Mild GI SYMPTOMS Verified 04/14/20 09:57 ezetimibe AdvReac Mild MUSCLE Verified 04/14/20 09:57 ACHES lisinopril AdvReac Unknown LIGHTHEADED Verified 04/14/20 09:57 AND DIZZY pioglitazone AdvReac Unknown DIARRHEA Verified 04/14/20 09:57 NAUSEA Knrlplv-Iib-Jmq Reductase AdvReac Unknown myalgias Verified 04/14/20 09:57 Inhibitor and weakness benzonatate AdvReac confusion Verified 04/14/20 09:57 [From Giovanni Brennan] Procedures Performed Operation Date: 04/30/20 08:00 Actual Procedures p Upgrade of any system to BIV - Davion Alvarez MD Ordered Studies 04/30/20 07:00 EP Lab Images for PACS ONCE Hospital Course (1) S/P ICD (internal cardiac defibrillator) procedure: She underwent successful upgrade from a dual-chamber pacemaker to a biventricular ICD on April 30, 2020 without difficulty. Postoperatively she did well, she feels better and is stable for discharge. Total Time Total Time Spent Total Time Spent (In Minutes): 15 Total Time Includes: Examination of the Patient, Discharge Planning and Medication Reconciliation Discharge Plan Discharge Items Patient Disposition: Home - Self-Care Reason For Visit: CHF and cardiomyopathy Discharge Diagnosis: Post ICD implantation Activity: Per Instructions section Bathing: Keep incision dry Non-emergency contact: Primary Care Provider Call non-emergency contact if: you have any medication questions Follow-up/Referrals: Davion Alvarez MD [Physician] - 05/04/20 11:00 am Boby Reddy MD [Primary Care Provider] - 07/20/20 9:45 am (APPT @ DR. REDDY'S OFFICE WITH HIS PA BEL OLGUIN) Diet: Heart Healthy Addtl Attending Provider Instructions: ACTIVITY RECOMMENDATIONS: * Do not raise affected arm over head for 2 weeks. SPECIAL CARE INSTRUCTIONS: * If bleeding occurs, apply direct pressure to area for 5 minutes. * Call your doctor if you have severe pain, fever, drainage or bleeding at site. * Keep dressing on and dry for 48 hours then remove. * Keep any scheduled doctor's appointment. * Implant Card - hand held device with website information given. SKIN IRRITATION: * You may experience some redness and/or swelling in the area where radiation was administered. If any skin irritation occurs, please contact your family physician. FOLLOW UP VISIT: Keep any scheduled doctor appointments. Pending Studies at Discharge: No Stand-Alone Forms: My [facility] Medications and DC Order Prescriptions: Continued insulin syringe-needle U-100 0.3 mL 31 gauge x 5/16" syringe See Rx Instructions .ROUTE .COMPLEX Qty: 100 RF: 9 Eliquis 2.5 mg tablet 2.5 mg PO BID Qty: 60 RF: 11 OneTouch Verio test strips Strip 1 strip miscellaneous TID Qty: 100 RF: 3 levothyroxine 75 mcg tablet 75 mcg PO DAILY Qty: 90 RF: 3 amiodarone 200 mg tablet 200 mg PO QPM Qty: 90 RF: 3 carvedilol 6.25 mg tablet 6.25 mg PO BID Qty: 135 RF: 3 pantoprazole 40 mg tablet,delayed release (DR/EC) 40 mg PO DAILY PRN (Reason: Stomach Upset) Qty: 90 RF: 3 digoxin 125 mcg (0.125 mg) tablet 125 mcg PO .COMPLEX Qty: 36 RF: 3 garlic 1,000 mg capsule 1,000 mg PO QAM Qty: 30 RF: 0 magnesium oxide 400 mg magnesium capsule 400 mg PO QPM Qty: 90 RF: 0 albuterol sulfate 90 mcg/actuation HFA aerosol inhaler 2 puff INHALATION Q6H PRN (Reason: Shortness Of Breath Or Wheezing) Qty: 8 RF: 1 potassium chloride 20 mEq tablet extended release 20 meq PO QAM RF: 0 cholecalciferol (vitamin D3) 1,000 unit capsule 1,000 units PO QAM RF: 0 bumetanide 1 mg tablet 1 mg PO BID Qty: 180 RF: 3 Brilinta 90 mg tablet 90 mg PO BID Qty: 180 RF: 1 multivitamin [Multiple Vitamins] tablet 1 tab PO QAM RF: 0 ondansetron HCl [Zofran] 8 mg tablet 8 mg PO Q8H PRN (Reason: Nausea) RF: 0 ranolazine 500 mg tablet extended release 12 hr 500 mg PO BID RF: 0 trazodone 50 mg tablet 50 mg PO HS RF: 0 vitamin E 400 unit capsule 400 unit PO QAM RF: 0 polyethylene glycol 3350 [Miralax] 17 gram/dose Powder 17 g PO HS RF: 0 insulin asp prt-insulin aspart [Novolog Mix 70-30 U-100 Insuln] 100 unit/mL (70-30) solution 50 units SUBCUT AMPM Qty: 30 RF: 5 Discharge Orders: Discharge Order (Routine); Ordered 05/01/20 Ordered By: Davion Alvarez Admission Data Admit Date/Time: 04/30/20 09:07 Attending Provider: Davion Alvarez Admit Provider: Davion Alvarez Primary Care Provider: Boby Reddy Other Interventions: Discharge Summary Assessment (RN) Last Done: 05/01/20 08:44 DC Date/Time DO NOT enter until pt leaves facility: 05/01/20 14:38 Coding Level of Care Code D/C Day Management <30 mins Diagnoses S/P ICD (internal cardiac defibrillator) procedure Z95.810
== END 2020-05-01 14:38 | disposition home or self-care (01) | DRG 226 ==
LOC: EP 06:53 → 2S 09:07

== ENCOUNTER 2021-09-17 07:27 | Observation (INO) ==
--- NOTE | 2021-09-16 09:02 | Anesthesiology Consultation ---
Date of Service September 16, 2021 Assessment & Plan (1) Encounter for pre-operative examination: Chart Review Chart Review: Acceptable Risk for Surgery (pending anesthesia evaluation DOS) and Patient NOT seen in Pre Admission Testing Pt initially scheduled breast surgery 09/15/21- pt only held blood thinners for 3 days- surgeon requesting five days- patient rescheduled to 09/17/21 -Dr. Ross is aware of case- pt can proceed as scheduled. Did discuss ICD/pacer with Dr. Harper- pacemaker rep not needed DOS- can use magnet - Check BSG AM DOS Per vascular communication note 09/14/21= "This is an 81yo female who had both carotid endarterectomies in 2014. She has now developed a 50-59% narrowing of her right carotid and >90% stenosis of her left carotid endarterectomy site. 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 Her stroke risk from having her cancer treated first is only mildly elevated. Her group home benefit is more dependent on treating her cancer at this time than treating her carotid. Would recommend keeping her systolic pressure above 120 during surgery and post op...would recommend restarting her anticoagulation as soon as possible post op." Per nursing assessment 09/07/2021, pt resides in [facility]. Mostly stays home. Wears mask when required in stores. No known Covid positive contacts or Covid related symptoms. No known Covid infection in the past 90 days. Pt is fully vaccinated for Covid.Preop Covid testing 09/13/21= negative. DOS preop Jasso test done 09/15/21= negative Patient seen by cardiology 08/04/2021= Patient presents for preoperative car diovascular evaluation prior to Redo of left carotid endarterectomy. The patient has a very complex past medical history, and her functional status is limited. She is at least a moderate risk for cardiovascular complications with surgery of this nature. It is therefore recommended that her primary intelligence manager, Dr. Irizarry, give his recommendations prior to her undergoing the surgery as he knows her the best." Per addendum to note 08/09/21="Patient was discussed with Dr. Irizarry today.She is at least a moderate to high risk for surgery given her multiple comorbidities, but she is optimized from a cardiovascular standpoint. She is experiencing no anginal symptoms and she appeared euvolemic during her office visit on 08/04/21. No additional cardiovascular testing or intervention is recommended prior to patient's carotid surgery." Cardio made aware that patient would be getting breast surgery 09/15/21- per cardio response 09/06/21= "She does not need a new appointment as long as she continues to be asymptomatic." Cardio did inquire if patient could continue low dose ASA (needs some form of antiplatelet therapy secondary to history of intracoronary stenting)(Per surgeon's office 09/14/21- patient self d/c'ed Elimableis and Brillinta on or before 09/13/21- pt will continue with ASA 81mg) Pt seen by PCP 09/08/21= seen for preoperative clearance for upcoming right mastectomy surgical intervention."After a careful review of her chart, evaluation of her medical file, and a thorough physical examination, I have found that she is an acceptable but guarded risk surgical candidate given her cardiac, pulmonary, Infectious and functional capacity. At this time, patient is medically cleared." Patient will be bridged with [employer] History Surgery Operation Date: 09/17/21 11:00 Proposed Procedures p Right Breast Partial Mastectomy with [employer] Communications Marketing Intern, Right Axillary [place] Lymph Node Biopsy - Hua Acosta, DO Height/Weight Height: 5 ft 4 in Weight: 92.986 kg Allergies Allergy/AdvReac Type Severity Reaction Status Date / Time adhesive Allergy Unknown REDNESS Verified 09/15/21 07:50 AND IRRITATION FROM PAIN PATCH, TAPE latex Allergy Unknown ALLERGIC Verified 09/15/21 07:50 TO LATEX TAPE/RASH/ITCHING morphine Allergy Unknown swelling Verified 09/15/21 07:50 nausea vomiting olmesartan Allergy Unknown UNKNOWN Verified 09/15/21 07:50 aspirin AdvReac Mild GI SYMPTOMS Verified 09/15/21 07:50 ezetimibe AdvReac Mild MUSCLE Verified 09/15/21 07:50 ACHES benzonatate AdvReac Unknown confusion Verified 09/15/21 07:50 [From Tessalon Perles] dulaglutide [From Trulicity] AdvReac Unknown AFFECTS Verified 09/15/21 07:50 MUSCLES exenatide [From Byetta] AdvReac Unknown Diarrhea Verified 09/15/21 07:50 glipizide AdvReac Unknown Diarrhea Verified 09/15/21 07:50 glyburide AdvReac Unknown Diarrhea Verified 09/15/21 07:50 lisinopril AdvReac Unknown LIGHTHEADED Verified 09/15/21 07:50 AND DIZZY losartan AdvReac Unknown dizziness Verified 09/15/21 07:50 metformin AdvReac Unknown Diarrhea Verified 09/15/21 07:50 pioglitazone AdvReac Unknown DIARRHEA Verified 09/15/21 07:50 NAUSEA sitagliptin [From ] AdvReac Unknown Diarrhea Verified 09/15/21 07:50 Rprzlan-FPA-DhX Reductase AdvReac Unknown myalgias Verified 09/15/21 07:50 Inhibitor and [Qweekma-Tib-Oad Reductase weakness Inhibitor] Medications Home Medications Medication Instructions Recorded Confirmed Last Taken magnesium oxide 400 mg PO QPM #90 cap 04/01/19 09/15/21 09/14/21 18:00 multivitamin (Multiple Vitamins) 1 tab PO QA 05/19/19 09/15/21 09/07/21 08:00 albuterol sulfate 90 mcg/actuation 2 puff INHALATION Q6H PRN #8 gm 06/11/19 09/15/21 Unknown aerosol inhaler blood sugar diagnostic (OneTouch 1 strip MISCELLANEOUS TID #100 ea 11/06/19 09/15/21 03/28/20 Verio test strips) polyethylene glycol 3350 17 17 g PO 03/29/20 09/15/21 09/13/21 18:00 gram/dose oral powder (Miralax) vitamin E 400 unit capsule 400 unit PO [facility] 03/29/20 09/15/21 09/07/21 08:00 ferrous sulfate 325 mg (65 mg 325 mg PO [facility] 10/27/20 09/15/21 09/14/21 08:00 iron) tablet (Feosol) apixaban 2.5 mg tablet (Eliquis) 2.5 mg PO BID #180 tab 03/16/21 09/15/21 09/12/21 18:00 carvedilol 6.25 mg tablet (Coreg) 6.25 mg PO 04/02/21 09/15/21 09/14/21 18:00 digoxin 125 mcg (0.125 mg) tablet 125 mcg PO 3XWK #36 tab 05/06/21 09/15/21 09/13/21 08:00 cholecalciferol (vitamin D3) 25 1,000 unit PO QAM cap 05/17/21 09/15/21 09/14/21 08:00 mcg (1,000 unit) capsule amiodarone 200 mg tablet 200 mg PO QPM #90 tab 06/10/21 09/15/21 09/14/21 18:00 insulin syringe-needle U-100 0.3 See Rx Instructions .ROUTE 06/28/21 09/15/21 Unknown mL 31 gauge x 5/16" .COMPLEX #100 unspecified ticagrelor 90 mg tablet (Brilinta) 90 mg PO BID #180 tab 06/28/21 09/15/21 09/12/21 18:00 carvedilol 3.125 mg tablet (Coreg) 3.125 mg PO QAM tab 07/02/21 09/15/21 09/15/21 06:00 potassium gluconate 595 mg (99 mg) 595 mg PO QAM 07/02/21 09/15/21 09/14/21 08:00 tablet bumetanide 1 mg tablet 1 mg PO BID #180 tab 07/12/21 09/15/21 09/14/21 18:00 insulin aspar prt-insulin aspart 15 - 30 unit SUBCUT AMPM 07/29/21 09/15/21 09/14/21 18:00 100 unit/mL (70-30) subcutaneous soln (Novolog Mix 70-30 U-100 Insuln) calcitriol 0.25 mcg capsule 0.25 mcg PO 3XWK #12 cap 08/24/21 09/15/21 08/17/21 08:00 (Rocaltrol) pantoprazole 40 mg tablet,delayed 40 mg PO DAILY PRN #90 tab 09/03/21 09/15/21 09/14/21 18:00 release (Protonix) trazodone 50 mg tablet 50 mg PO HS PRN #90 tab 09/03/21 09/15/21 Unknown garlic 1,000 mg capsule 1,000 mg PO QPM 09/07/21 09/15/21 09/07/21 08:00 levothyroxine 75 mcg tablet 75 mcg PO QAM #90 tab 09/13/21 09/15/21 09/15/21 06:00 aspirin 81 mg chewable tablet 81 mg PO DAILY 09/15/21 09/15/21 09/15/21 06:00 omega-3 fatty acids 1,000 mg PO DAILY 09/15/21 09/15/21 09/07/21 08:00 Past Medical History Medical History Anemia due to chronic kidney disease Aortic stenosis, severe S/p TAVR 10/2019 Atrial flutter On Eliquis Bilateral carotid artery stenosis H/o bilateral CEAs in 2016 Per 07/2021 vascular note- carotid ultrasound from office visit showed patent right CEA with velocities suggesting 50-59% stenosis restenosis Patent left CEA with velocities suggesting 99% restenosis Biventricular ICD (implantable cardioverter-defibrillator) in place (04/30/20) Medtronic implanted 04/30/2020. Capped right ventricular pacing lead Last check 03/22/21 Breast cancer, right Newly diagnosed- reason for procedure CAD (coronary artery disease) F/U DR IRIZARRY S/p NATY x 1 to Cx in 2018; NATY to ostial LM 01/10/20 Chronic combined systolic and diastolic CHF (congestive heart failure) EF 40-45% per 10/2020 ECHO Chronic kidney disease STAGE IV-F/U DR SALINAS Chronic obstructive pulmonary disease, unspecified Breathing stable Depression HX Diabetes mellitus, type 2 Glucose fluctuates DVT (deep venous thrombosis) LOWER LEG 2019 GERD (gastroesophageal reflux disease) Well controlled and stable HLD (hyperlipidemia) HTN (hypertension) Hypothyroidism Insomnia Ischemic cardiomyopathy Left bundle branch block NSTEMI (non-ST elevated myocardial infarction) Most recent 12/2019 (mild per patient) PAD (peripheral artery disease) S/p BRICK POINTER and stenting of right SFA, and BRICK POINTER of left SFA and common femoral artery Pulmonary hypertension RVSP 40-45mmHg on 10/2020 ECHO Rheumatoid arthritis No medications Followed with rheum in the past- no recent issues Secondary hyperparathyroidism of renal origin SOB (shortness of breath) on exertion Spondylosis Subclavian artery stenosis Past Family History Family History Daughter Coronary heart disease Mother Diabetes Family history of hypercholesterolemia Myocardial infarction Hypertension Stroke Brother Colorectal cancer Aunt No problems noted. Father Diabetes Hypertension Other Pacemaker Denies family history of Ovarian cancer Prostate cancer Breast cancer Past Surgical History Surgical History H/O: section History of appendectomy History of cardiac cath TOTAL 6? STENTS- 2018 and 2019 History of cataract surgery History of cholecystectomy History of colonoscopy History of hysterectomy History of oophorectomy S/P angioplasty (02/03/21) BRICK POINTER L SFA S/P carotid endarterectomy B/l 2016 S/P coronary artery stent placement (10/2017) NATY to mid LAD S/P coronary artery stent placement (10/2018) NATY prox mid LAD 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) S/P thoracentesis (03/2020) b/l d/t CHF Social History Smoking Status: Never smoker Hx Alcohol Use: No Hx Substance Use: No substance use type: does not use Lab Results Anesthesia Preop Results Results Anesthesia Widget: WBC 8.08 K/uL (4.8-10.8) 08/05/21 Hgb 13.6 g/dL (12.0-16.0) 08/05/21 Hct 40.7 % (37-47) 08/05/21 Plt 246 K/uL (130-400) 08/05/21 Na 138 mmol/L (136-145) 08/05/21 K 4.1 mmol/L (3.5-5.1) 08/05/21 Cl 103 mmol/L (98-107) 08/05/21 CO2 29 mmol/L (21-32) 08/05/21 BUN 34 mg/dl (7-18) H 08/05/21 Creat 2.02 mg/dl (0.6-1.2) H 08/05/21 Glucose Level 210 mg/dl (70-99) H 08/05/21 PT 10.2 Seconds (9.0-12.0) 08/05/21 PTT 26.0 Seconds (21.0-31.0) 08/05/21 INR 1.0 (0.9-1.1) 08/05/21 HA1c 6.7 % (4.5-5.6) H 08/05/21 SARS-CoV-2, RNA, NAAT NEGATIVE (NEGATIVE) 09/15/21 Blood Type A Positive 08/05/21 Antibody Screen NEGATIVE 08/05/21 Testing Electrocardiogram Date: 08/05/21 AV dual-paced rhythm at 60 bpm. Biventricular pacemaker detected. Chest X-Ray Date: 08/05/21 Findings: + NAD Redemonstration of a small right pleural effusion with right basilar opacity which likely reflects atelectasis. No acute cardiopulmonary findings. Left subclavian biventricular pacer/AICD and prosthetic cardiac valve are noted. Echocardiogram Date: 10/22/20 EF: 40-45% LV Function: dysfunctional Other Findings: no LVH Mild LV dilation and systolic dysfunction. Basal posterior HK. Other LV segments are mildly HK. No thrombus. Lipomatous hypertrophy of interatrial septum is noted. Moderate left atrial dilation. Properly functioning TAVR. Moderate TR/MR. Mildly elevated estimated RVSP= 40-45mmHg. Compared to 12/11/19 ECHO- LV EF and systolic function have improved. RVSP has decreased Cardiac Catheterization Date: 01/10/20 LM= 70% ostial stenosis LAD= 30% proximal disease, mid LAD stents widely patent with minimal in-stent restenosis. Cx=mid segment stent widely patent , 60-70% OM1 proximal disease RCA= mid to distal luminal irregularities Impression: Severe ostial left main stenosis. Moderate residual ostial circumflex, OM1 disease. Widely patent ostial RCA, LAD and mid circumflex stents. Successful PCI of ostial left main with single drug-eluting stent (4.0 x 12 mm Xience Jewell). Pulmonary Function Test Date: 04/22/20 Moderate restrictive physiology with significant bronchodilator response. Pt unable to perform DLCO. Clinical correlation recommended Cervical Spine Date: 08/05/21 Osteopenia and degenerative change. No acute bony abnormality is identified on these lateral projections. There is no inducible bony subluxation on the flexion/extension views. Other Testing Pacemaker check 03/22/21= Medtronic pacemaker. Implanted 04/30/20. Atrial paced 99.4%, RV paced 99.8%, LV paced 99.8%. Mode DDDR. Known atrial flutter- pt on Eliquis. VT episodes= 0.
[~2021-09-17 07:27] MED LIST changes: -AMIO200T4 PO; -AMLO5TAB3 PO; -APIX1TAB3 PO; -ASPI81TA28 PO; -CLOP1TAB15 PO; -FRS/40 PO; -GARL1TAB8 PO; -HYDR1OIN EXT; -LABE100T3 PO; +LACTATED RINGER'S 1,000 ML IV SCH; -LEVO75TA5 PO; -MAGN400T6 PO; -MULT-506 PO; -NVLG SC; -POTA-639 PO; -RANI150T85 PO; -SNTONWC TP; +SODIUM CHLORIDE 0.9% 1000ML IV SCH; -TRMCR130WC TP; -VITA1TAB4 PO; -VNTHFA/IN INH; +ceFAZolin 2000MG 2,000 MG/15 ML SYR IV SCH
--- NOTE | 2021-09-17 08:33 | Nuclear Medicine Report ---
RIGHT BREAST LYMPHOSCINTIGRAPHY CLINICAL HISTORY: right axillary sentinel node bx COMPARISON STUDY: Mammogram September 14, 2021. PROCEDURE: The procedure, risks and benefits were discussed with the patient and informed consent was obtained. The procedure was performed by Dr. Jacobo following a timeout. Right breast was prepped in typical fashion. At this time, a total of 522 uCi of Lymphoseek was injected in 5 intradermal ali quots at 8:10 AM on September 17, 2021 within a periareolar distribution. The patient tolerated the pro cedure well and no immediate complications were evident. No imaging was requested at this time. IMPRESSION: Right breast lymphoscintigraphy. ACT 112: Negative or not required by law. Electronically signed by: Cali Jacobo M.D. 09/17/2021 8:31 AM
--- NOTE | 2021-09-17 09:59 | History & Physical Bridge Note ---
Date of Service September 17, 2021 History & Physical Bridge Note I have examined the patient, reviewed the History & Physical and in the interval since the performance of the History & Physical I have noted the following changes of clinical significance: no changes noted
[2021-09-17] MEDS ORDERED: fentaNYL citrate 100 MCG/2 ML VIAL ONE ×2 (11:02→14:12)
[2021-09-17] MEDS ORDERED: ISOSULFAN BLUE 10 MG/ML VIAL 5 ML ONE (11:52)
[2021-09-17] MEDS ORDERED: BUPIVACAINE 0.25% 30 ML VIAL ONE (12:31)
[2021-09-17] MEDS ORDERED: LIDOCAINE 2% 2 ML VIAL/AMP(20MG/ML) INFIL ONE (12:53)
[2021-09-17] MEDS ORDERED: PHENYLEPHRINE HCL 10 MG/ML VIAL ONE (12:53)
[2021-09-17] MEDS ORDERED: PROPOFOL IV EMULSION 10 MG/ML 20 ML VIAL IV ONE (12:53)
[2021-09-17] MEDS ORDERED: DEXAMETHASONE SOD INJ 4 MG/ML VIAL ONE (12:53)
[2021-09-17] MEDS ORDERED: ONDANSETRON INJ 2 MG/ML 2 ML VIAL ONE ×2 (12:53→14:12)
[2021-09-17] MEDS ORDERED: ONDANSETRON INJ 2 MG/ML 2 ML VIAL IV PRN ×2 (14:02→15:37)
[2021-09-17] MEDS ORDERED: PROMETHAZINE HCL 12.5 MG in SODIUM CHLORIDE 0.9% 50 ML IV PRN (14:02)
[2021-09-17] MEDS ORDERED: ePHEDrine sulfate 50 MG/ML AMP IV PRN (14:02)
[2021-09-17] MEDS ORDERED: LABETALOL HCL IV 5 MG/ML 20ML IV PRN (14:02)
[2021-09-17] MEDS ORDERED: ATROPINE SULFATE 0.1 MG/ML 10ML SYR IV PRN (14:02)
[2021-09-17] MEDS ORDERED: NALOXONE HCL 0.4 MG/1 ML VIAL/CARP IV PRN (14:02)
--- NOTE | 2021-09-17 14:03 | Post Operative Brief Note ---
PG Immediate Post Op with CF Date of Surgery September 17, 2021 Pre & Post Diagnosis Operation Date: 09/17/21 11:00 Pre-Op Diagnosis: Invasive Mucinous Carcinoma Right Breast Post-Op Diagnosis: Invasive Mucinous Carcinoma Right Breast I identified the patient and participated in the time-out.: Yes Procedure Operation Date: 09/17/21 11:00 Actual Procedures p Right Breast Partial Mastectomy with [employer] Band Straightener localization, Right Axillary [place] Lymph Node Biopsy(Right) - Hua Acosta DO Surgeon Hua Acosta DO Auger Supervisor Carolin Campbell PA-C Estimated Blood Loss 10 Findings See Below Blue and hot node (500) [employer] Band Straightener and Biopsy clip in surgical specimen upon radiography Specimens Specimen Description: A) Caldwell lymph node #1 blue, hot, 500 count B) Right Breast Mass (Fresh) Out of body at 1338 Short Stitch= Superior Long Stitch= Lateral Anesthesia Type General Complications none Disposition Disposition: Recovery Room
--- NOTE | 2021-09-17 14:06 | Operative Report ---
PG Post Operative Report Pre & Post Diagnosis Operation Date: 09/17/21 11:00 Pre-Op Diagnosis: Invasive Mucinous Carcinoma Right Breast Post-Op Diagnosis: Invasive Mucinous Carcinoma Right Breast I identified the patient and participated in the time-out.: Yes Procedure Operation Date: 09/17/21 11:00 Actual Procedures p Right Breast Partial Mastectomy with [employer] Log[employer] Support Localization, Right Axillary Nancy Lymph Node Biopsy(Right) - Hua Acosta DO Surgeon Hua Acosta DO Dealer Development Manager Carolin Campbell PA-C Estimated Blood Loss 10 Findings See Below Blue and hot node (500) Q[employer]a shirt folding machine operator and biopsy clip present in surgical specimen upon radiography Specimens Nancy lymph node, blue and hot (500) Right breast mass, short stitch superior, long stitch lateral Drains None Anesthesia Type General Complications none Disposition Disposition: Recovery Room Indications 81 yo female with invasive mucinous carcinoma of right breast Description of Procedure Patient was brought to the operating room placed in supine position with both arms abducted. At this time she underwent general LMA anesthesia without any problem. She was given appropriate preoperative antibiotics. At this time her right breast and axilla were prepped and draped in the normal sterile fashion. A timeout was called the procedure was verified as RIGHT breast partial mastectomy with preoperative localization, RIGHT axillary sentinel lymph node biopsy. Surgical, anesthesia, nursing teams agreed and the procedure was begun. After injection of local anesthetic with quarter percent Marcaine with epinephrine a transverse incision was made at the inferior edge of the hair- bearing area of the axilla using a #15 blade scalpel. This was carried down through subcutaneous tissue to the axillary fascia with electrocautery. The axillary fascia was then incised with electrocautery. At this time the neoprobe was inserted to the axilla and a blue and hot node with a count of 500 was found and dissected free of the tissue and removed. This was sent as sentinel lymph node blue and hot with a count of 500. At this point the neoprobe was placed in the axilla and remaining count was less than 50. The incision was irrigated until clear. Hemostasis was achieved using electrocautery. Hemostasis was complete. At this time the axillary fascia and deep dermis of the skin were closed using 3-0 Vicryl in a simple interrupted fashion. The skin was then closed using 4-0 Monocryl in a running subcuticular fashion. We then turned our attention to performing the partial mastectomy. Using the [employer]a shirt folding machine operator probe a curvilinear incision in the superior portion of the breast was made over the site of maximal intensity of the [employer] shirt folding machine operator probe using a #15 blade scalpel. Skin flaps were then raised in all directions. Using the [employer] shirt folding machine operator probe partial mastectomy was completed excising the mass using electrocautery. Once the mass was delivered into the wound it was taken off of the posterior portion of the chest wall using electrocautery. Once the specimen was out of the breast [employer] Log[employer] Support probe was placed on the specimen confirming the [employer] shirt folding machine operator in the specimen. At this time the specimen underwent radiography which confirmed both the [employer] shirt folding machine operator marker and biopsy clip within the specimen. At this time the incision was then irrigated until clear. Hemostasis was achieved using electrocautery. Hemostasis was complete. Incision was then closed using 3-0 Vicryl in the deep dermis and 4-0 Monocryl in a running motley bcuticular fashion the skin. Surgical glue was then placed on both incisions. Needle and sponge counts were correct x2. At this time the patient was awakened from anesthesia having remained stable throughout the entire case and transported to PACU. The physician cafeteria assistant was present and scrubbed throughout the entire case. She was essential in positioning prepping and draping the patient, retraction and exposure, closure of the incisions and placement of the dressings. I attest to the content of the Intraoperative Record and any orders documented therein. Any exceptions are noted below.
[2021-09-17] MEDS: fentaNYL citrate 100 MCG/2 ML VIAL IV PRN ×4 (14:12→15:33)
[2021-09-17] MEDS ORDERED: PROMETHAZINE HCL INJ 25 MG/ML 1 ML VIAL ONE (14:40)
[2021-09-17] MEDS ORDERED: SODIUM CHLORIDE 0.9% 50 ML BAG ONE (14:40)
--- NOTE | 2021-09-17 15:18 | Anesthesiology Progress Note ---
Date of Service September 17, 2021 Anesthesia Post Procedure Vital Signs Vital Signs: Temp Pulse Pulse Resp BP Pulse Ox 09/17/21 15:15 60 19 137/73 95 09/17/21 15:05 60 16 117/65 94 09/17/21 14:55 36.7 C 60 12 135/72 94 09/17/21 14:45 60 20 125/72 96 09/17/21 14:35 60 18 130/75 94 09/17/21 14:25 60 12 135/68 94 09/17/21 14:15 60 12 134/77 95 09/17/21 14:08 36.1 C L 61 16 138/76 95 09/17/21 09:06 36.5 C 65 20 122/78 95 Pain Intensity Right Breast: Pain Intensity: 5 Transfer of Care Handoff Completed per policy Notes Mental Status: alert / awake / arousable Patient Amnestic to Procedure: Yes Nausea / Vomiting: adequately controlled Pain: adequately controlled Airway Patency, RR, SpO2: stable & adequate BP & HR: stable & adequate Hydration State: stable & adequate Anesthetic Complications: no major complications apparent
[2021-09-17] MEDS ORDERED: oxyCODONE HCL IR 5 MG TAB (IMMEDIATE RELEASE) PO PRN ×2 (15:37)
[2021-09-17] MEDS ORDERED: ACETAMINOPHEN 325 MG TAB PO PRN (15:37)
[2021-09-17] MEDS ORDERED: traZODone HCL 50 MG TAB PO PRN (15:37)
[2021-09-17] MEDS ORDERED: PHARMACY GLYCEMIC MGMT CONSULT PRN (15:37)
[2021-09-17] MEDS ORDERED: ALBUTEROL HFA 8 GM INHALER INH PRN (15:37)
[2021-09-17] MEDS ORDERED: PANTOprazole 40 MG TAB PO PRN (15:37)
[2021-09-17] MEDS: LACTATED RINGER'S 1,000 ML IV SCH (18:55)
[2021-09-17] MEDS ORDERED: GLUCOSE 10 TABS/TUBE PO PRN (19:15)
[2021-09-17] MEDS ORDERED: GLUCAGON FOR INJ 1 MG VIAL IM PRN (19:15)
[2021-09-17] MEDS ORDERED: CARBOHYDRATES FOR HYPOGLYCEMIA PO PRN (19:15)
[2021-09-17] MEDS ORDERED: DEXTROSE 50% 50 ML SYRINGE IV PRN (19:15)
[2021-09-17] MEDS ORDERED: GLUCOSE 40% GEL 15 GM TUBE PO PRN (19:15)
[2021-09-17] MEDS ORDERED: carvediloL 6.25 MG TAB PO SCH (21:00)
[2021-09-17] MEDS: INSULIN HUMAN NPH SC SCH (21:02)
[2021-09-17] MEDS: AMIODARONE 200 MG TAB PO SCH (21:03)
[2021-09-17] MEDS: BUMETANIDE 1 MG TAB PO SCH (21:03)
[2021-09-17] MEDS: INSULIN ASPART 100 UNITS/ML 3 ML PEN SC SCH (21:04)
[2021-09-17] MEDS: RANOLAZINE 500 MG ER TAB PO SCH (21:05)
[2021-09-17] MEDS: POLYETHYLENE (MIRALAX) 17 GM PACK PO SCH (21:05)
[2021-09-18] MEDS ORDERED: INSULIN ASPART 100 UNITS/ML 3 ML PEN SC SCH (04:20)
[2021-09-18] MEDS: LEVOTHYROXINE SODIUM 75 MCG TABLET PO SCH (06:23)
[2021-09-18] MEDS ORDERED: carvediloL 3.125 MG TAB PO SCH (07:30)
[2021-09-18] MEDS: ASPIRIN 81 MG CHEW PO SCH (08:34)
[2021-09-18] MEDS: BUMETANIDE 1 MG TAB PO SCH (08:35)
[2021-09-18] MEDS: RANOLAZINE 500 MG ER TAB PO SCH (08:35)
[2021-09-18] MEDS: FERROUS SULFATE 325 MG TAB PO SCH (08:35)
[2021-09-18] MEDS: CHOLECALCIFEROL 1,000 UNITS 25 MCG TAB PO SCH (08:35)
--- NOTE | 2021-09-18 08:42 | Consultation ---
Date of Consultation September 18, 2021 Assessment & Plan (1) Breast cancer, right: Patient is doing well postoperatively Pain management and wound care as directed by general surgery (2) DM II (diabetes mellitus, type II), controlled: Patient is currently tolerating solid food. Maintain the patient on her home regimen of insulin Outpatient follow-up with her primary care physician for long-term management of this condition (3) Occlusion and stenosis of unspecified carotid artery: Patient does not have any noted neurologic deficits postoperatively Patient has been resumed on antiplatelet therapy postoperatively in the form of aspirin 81 mg daily which should continue Resume Eliquis when felt to be safe from surgical perspective (4) CKD (chronic kidney disease) stage 4, GFR 15-29 ml/min: Avoid nephrotoxins (5) Chronic combined systolic and diastolic CHF (congestive heart failure): Patient is well compensated at the present time Avoid fluid overload (6) Ischemic cardiomyopathy: Clinically stable at this time Would recommend maintaining the patient on her home regimen of medications including aspirin 81 mg daily, Coreg 3.125 mg daily in the morning and 6.25 mg in the evening, digoxin 0.125 mg daily, and Ranexa 500 mg twice daily Supervising Physician Co-Signing Physician Notes Attending note: patient seen and examined with Usman HARRISON, I agree with his assessment and plan, examination, ROS, history. I reviewed the imaging and lab work. patient noticed right hand numbness this morning, mostly in the fingers. 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 she says she never had this before. I reviewed outpatient records, she has known left carotid stenosis of > 90%, Dr. Bateman planning on operating on 09/28 per patient. He recommended that blood pressure stay > 120 systolic, resume antiplatelets and Eliquis when okay with surgery after mastectomy. on examination, hazardous waste remover strength is 4/5 on right and 5/5 on left, finger abduction is a little weaker on right, she has clumsy movement of the right hand with poor finger to nose testing and rapid alternating movements, no pronator drift, no visual changes, no speech changes, no other areas of weakness found. discussed with her that she likely had a small stroke/TIA in the post operative period, this could have been from very small emboli from carotid plaque or it could be from hypoperfusion and SBP has been < 120 CT head normal tried to get MRI brain, her pacemaker/defibrillator is compatible but one of the leads is not capped, thus her myocardium could get burned with an MRI, cannot get MRI brain - Stroke like symtpoms, suspect very small stroke vs TIA, either from hypoperfusion or very small carotid emboli from plaque on her Aspirin, would like to resume Brilinta and Eliquis as soon as possible, once okay with general surgery hold Bumex and Coreg, give her NSS 500cc at 80cc/hr for one bag, allow BP to be > 120 for better perfusion can likely go home tomorrow needs to get carotid arterectomy as outpatient History of Present Illness Reason for Consultation: Postoperative medical management Attending Physician: Hua Acosta, DO History of Present Illness This is an 81-year-old female who underwent a right breast partial mastectomy by Dr. Hua Acosta on 09/17/2021. We are asked to see the patient for medical management. Patient has numerous medical problems including diabetes for which she utilizes insulin. She also has peripheral vascular disease as well as ischemic cardiomyopathy. Patient notes that she has been doing well since her surgery. Initially postoperatively she did have some nausea which has resolved. She denies any chest pain or shortness of breath. She denies any fevers, shakes, chills. Since her surgery she is has ambulated to the restroom and notes that she feels steady on her feet without any lightheadedness or dizziness. She notes that she is voiding without difficulty. She offers no other complaints and adds that her postoperative pain is well controlled. Allergies Allergy/AdvReac Type Severity Reaction Status Date / Time adhesive Allergy Unknown REDNESS Verified 09/17/21 08:40 AND IRRITATION FROM PAIN PATCH, TAPE latex Allergy Unknown ALLERGIC Verified 09/17/21 08:40 TO LATEX TAPE/RASH/ITCHING morphine Allergy Unknown swelling Verified 09/17/21 08:40 nausea vomiting olmesartan Allergy Unknown UNKNOWN Verified 09/17/21 08:40 aspirin AdvReac Mild GI SYMPTOMS Verified 09/17/21 08:40 ezetimibe AdvReac Mild MUSCLE Verified 09/17/21 08:40 ACHES benzonatate AdvReac Unknown confusion Verified 09/17/21 08:40 [From Tessalon Perles] dulaglutide [From Trulicity] AdvReac Unknown AFFECTS Verified 09/17/21 08:40 MUSCLES exenatide [From Byetta] AdvReac Unknown Diarrhea Verified 09/17/21 08:40 glipizide AdvReac Unknown Diarrhea Verified 09/17/21 08:40 glyburide AdvReac Unknown Diarrhea Verified 09/17/21 08:40 lisinopril AdvReac Unknown LIGHTHEADED Verified 09/17/21 08:40 AND DIZZY losartan AdvReac Unknown dizziness Verified 09/17/21 08:40 metformin AdvReac Unknown Diarrhea Verified 09/17/21 08:40 pioglitazone AdvReac Unknown DIARRHEA Verified 09/17/21 08:40 NAUSEA sitagliptin [From Octuvia] AdvReac Unknown Diarrhea Verified 09/17/21 08:40 Imvdhsa-HCA-UxP Reductase AdvReac Unknown myalgias Verified 09/17/21 08:40 Inhibitor and [Rlxiucl-Gro-Crf Reductase weakness Inhibitor] Home Medications Medication Instructions Recorded Confirmed Type magnesium oxide 400 mg PO QPM #90 cap 04/01/19 09/17/21 Rx multivitamin (Multiple Vitamins) 1 tab PO QAM 05/19/19 09/17/21 History albuterol sulfate 90 mcg/actuation 2 puff INHALATION Q6H PRN #8 gm 06/11/19 09/16/21 Rx aerosol inhaler blood sugar diagnostic (OneTouch 1 strip MISCELLANEOUS TID #100 ea 11/06/19 09/17/21 Rx Verio test strips) polyethylene glycol 3350 17 17 g PO HS 03/29/20 09/17/21 History gram/dose oral powder (Miralax) vitamin E 400 unit capsule 400 unit PO QAM 03/29/20 09/17/21 History ferrous sulfate 325 mg (65 mg 325 mg PO QAM 10/27/20 09/17/21 History iron) tablet (Feosol) carvedilol 6.25 mg tablet (Coreg) 6.25 mg PO HS 04/02/21 09/17/21 History digoxin 125 mcg (0.125 mg) tablet 125 mcg PO 3XWK #36 tab 05/06/21 09/17/21 Rx cholecalciferol (vitamin D3) 25 1,000 unit PO QAM cap 05/17/21 09/17/21 History mcg (1,000 unit) capsule amiodarone 200 mg tablet 200 mg PO QPM #90 tab 06/10/21 09/17/21 Rx insulin syringe-needle U-100 0.3 See Rx Instructions .ROUTE 06/28/21 09/17/21 Rx mL 31 gauge x 02/28" .COMPLEX #100 unspecified carvedilol 3.125 mg tablet (Coreg) 3.125 mg PO QAM tab 07/02/21 09/17/21 History potassium gluconate 595 mg (99 mg) 595 mg PO QAM 07/02/21 09/17/21 History tablet bumetanide 1 mg tablet 1 mg PO BID #180 tab 07/12/21 09/17/21 Rx insulin aspar prt-insulin aspart 15 - 30 unit SUBCUT AMPM 07/29/21 09/17/21 History 100 unit/mL (70-30) subcutaneous soln (Novolog Mix 70-30 U-100 Insuln) calcitriol 0.25 mcg capsule 0.25 mcg PO 3XWK #12 cap 08/24/21 09/17/21 Rx (Rocaltrol) pantoprazole 40 mg tablet,delayed 40 mg PO DAILY PRN #90 tab 09/03/21 09/17/21 Rx release (Protonix) trazodone 50 mg tablet 50 mg PO HS PRN #90 tab 09/03/21 09/17/21 Rx garlic 1,000 mg capsule 1,000 mg PO QPM 09/07/21 09/17/21 History levothyroxine 75 mcg tablet 75 mcg PO QAM #90 tab 09/13/21 09/17/21 Rx aspirin 81 mg chewable tablet 81 mg PO QAM 09/15/21 09/17/21 History omega-3 fatty acids 1,000 mg PO DAILY 09/15/21 09/17/21 History ranolazine 500 mg tablet,extended 500 mg PO BID 09/16/21 09/17/21 History release,12 hr oxycodone 5 mg tablet 5 - 10 mg PO .[id number] PRN #12 tab 09/17/21 Rx Patient History Medical History Anemia due to chronic kidney disease Aortic stenosis, severe S/p TAVR 10/2019 Atrial flutter On Eliquis Bilateral carotid artery stenosis H/o bilateral CEAs in 2016 Per 07/2021 vascular note- carotid ultrasound from office visit showed patent right CEA with velocities suggesting 50-59% stenosis restenosis Patent left CEA with velocities suggesting 99% restenosis Biventricular ICD (implantable cardioverter-defibrillator) in place (04/30/20) [employer] implanted 04/30/2020. Capped right ventricular pacing lead Last check 03/22/21 Breast cancer, right Newly diagnosed- reason for procedure CAD (coronary artery disease) F/U DR CUEVA S/p NATY x 1 to Cx in 2018; NATY to ostial LM 01/10/20 Chronic combined systolic and diastolic CHF (congestive heart failure) EF 40-45% per 10/2020 ECHO Chronic kidney disease STAGE IV-F/U DR SALINAS Chronic obstructive pulmonary disease, unspecified Breathing stable Depression HX Diabetes mellitus, type 2 Glucose fluctuates DVT (deep venous thrombosis) LOWER LEG 2019 GERD (gastroesophageal reflux disease) Well controlled and stable HLD (hyperlipidemia) HTN (hypertension) Hypothyroidism Insomnia Ischemic cardiomyopathy Left bundle branch block NSTEMI (non-ST elevated myocardial infarction) Most recent 12/2019 (mild per patient) PAD (peripheral artery disease) S/p BIODIESEL PLANT OPERATIONS ENGINEER and stenting of right SFA, and BIODIESEL PLANT OPERATIONS ENGINEER of left SFA and common femoral artery Pulmonary hypertension RVSP 40-45mmHg on 10/2020 ECHO Rheumatoid arthritis No medications Followed with rheum in the past- no recent issues Secondary hyperparathyroidism of renal origin SOB (shortness of breath) on exertion Spondylosis Subclavian artery stenosis Surgical History H/O: section History of appendectomy History of cardiac cath TOTAL 6? 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 Father Diabetes Hypertension Other Pacemaker Denies family history of Ovarian cancer Prostate cancer Breast cancer Social History Smoking Status: Never smoker Second Hand Exposure: No; Do You Dip or Chew Tobacco: No; Tobacco Cessation Education Requested by Patient: No Hx Alcohol Use: No Hx Substance Use: No Preferred Language: Nepali Communication Ability: Effective Visual Impairment: Limited Hearing Ability: Use of Hearing Aid Hotel General Manager Required: No Beliefs That Will Affect Care: None marital status: / marital status details: passed 2000 Current Living Situation: Alone current occupational status: retired current occupation: How many Children do You have: 2 Other Information That Helps Us Care for You: No Feels Safe at Home: Yes Safety Concerns: Feels Safe At This Time Childhood Exposure to Second-Hand Smoke: Yes caffeine: Yes Dental Care, Regularly: Yes Physical Activity Frequency: Does not Exercise Seatbelt Use: always Sunscreen Use: No Assistive Devices: Cane and Walker Review of Systems Constitutional: no fever and no chills Eyes: no blind spots Ear, Nose, Mouth, Throat: no ear pain and no sore throat Respiratory: no cough and no dyspnea Cardiovascular: no chest pain Gastrointestinal: + nausea (Resolved); no abdominal pain Genitourinary: no dysuria and no urinary hesitancy Musculoskeletal: no back pain Integumentary: no rash Neurologic: no localized weakness Physical Exam Constitutional: well developed and well nourished; no acute distress Eyes: PERRL, conjunctivae normal, anicteric sclerae ENMT: Ears: no hearing impairment Neck: trachea midline Respiratory: normal respiratory effort, lungs clear to auscultation Cardiovascular: Rate/Rhythm: regular rate and regular rhythm Gastrointestinal (Abdomen): Abdomen is soft, nondistended, and nontender to palpation Musculoskeletal: No calf tenderness Skin: no rashes Neurologic: moves all extremities Psychiatric: A+Ox3, euthymic affect Results & Data ([facility]) Vital Signs (Past 12 Hours) Vital Signs Temp Pulse Pulse Resp BP Pulse Ox 09/18/21 07:32 36.6 C 65 18 102/64 95 09/18/21 03:30 36.6 C 71 16 113/70 91 09/17/21 23:44 36.6 C 66 17 114/69 94 09/17/21 21:54 36.7 C 60 18 106/65 94 09/17/21 20:45 36.7 C 59 L 18 110/68 95 PG Care Time/CCT Total # of Minutes Spent Total Time Spent with Patient: Total time spent is greater than 50% in coordination of care (as documented) at patient's floor/unit and/or counseling patient: Coding Level of Care Code 22676 Inpt Consult Level 5 Diagnoses Breast cancer, right C50.911 DM II (diabetes mellitus, type II), controlled E11.21; Z79.4 Diabetes mellitus complication detail: with nephropathy Diabetes mellitus complication status: with kidney complications Diabetes mellitus intermodal customer service insulin use: with intermodal customer service use Occlusion and stenosis of unspecified carotid artery I65.29 CKD (chronic kidney disease) stage 4, GFR 15-29 ml/min N18.4 Chronic combined systolic and diastolic CHF (congestive heart failure) I50.42 Ischemic cardiomyopathy I25.5 (1) DM II (diabetes mellitus, type II), controlled Diabetes mellitus complication detail: with nephropathy Diabetes mellitus complication status: with kidney complications Diabetes mellitus assisted insulin use: with intermodal customer service use Qualified Code(s): E11.21 - Type 2 diabetes mellitus with diabetic nephropathy; Z79.4 - FPC (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
[2021-09-18] MEDS: INSULIN HUMAN NPH SC SCH ×2 (09:42→17:35)
[2021-09-18] MEDS: INSULIN ASPART 100 UNITS/ML 3 ML PEN SC SCH ×4 (09:43→22:00)
--- NOTE | 2021-09-18 10:38 | Surgery Progress Note ---
Date of Service September 18, 2021 Assessment & Plan (1) Breast cancer, right: Plan: s/p right lumpectomy and sln biopsy. Surgical sites doing well. 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 Discussed with Usman Dixon who is going to evaluate. Discussed doing arm strengthening exercises. OK to discharge from surgical standpoint if cleared by medicine. Admission and Anticipated Discharge Date Admission Date: September 17, 2021 Subjective Overall feels well. 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 Arm motion is OK, no other areas of weakness of her right arm. No pain but is slightly sore in the axilla. 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
--- NOTE | 2021-09-18 12:07 | CT Scan Report ---
CT OF THE HEAD WITHOUT CONTRAST CLINICAL HISTORY: left hand weakness, ? cva, hx. of carotid stenosis COMPARISON STUDY: Head CT and CTA of the head April 04, 2016. CT DOSE: 537.48 mGy.cm TECHNIQUE: Helical axial images of the head were obtained without IV contrast. Automated exposure con trol was utilized for the study. A dose lowering technique was utilized adhering to the principles o f ALARA. FINDINGS: No acute intracranial hemorrhage, midline shift or mass effect is present. The ventricular system is unremarkable. The basal cisterns are patent. Subtle white matter hypodensities are similar to prior CT. No extra-axial collections are present. There are no findings to suggest acute dural sin us thrombosis or acute territorial infarct. No significant calvarial abnormalities are present. Visua lized portions of the sinuses and mastoid air cells are clear. IMPRESSION: No acute intracranial findings. ACT 112: Negative or not required by law. Electronically signed by: Cali Jacobo M.D. 09/18/2021 12:05 PM
--- NOTE | 2021-09-18 14:19 | Pharmacy Report ---
Pharmacy Glycemic Short Note 2 - Date of Service September 18, 2021 - Glycemic Short BSG Results (Last 24 hours): 09/17/21 09/17/21 09/17/21 20:27 20:29 20:30 POC Glucose 307 H* 285 H 299 H 09/18/21 09/18/21 08:22 12:22 POC Glucose 199 H 128 H OUTPATIENT ANTIDIABETIC REGIMEN: * Novolog 70/30 insulin 15-30 units BID ASSESSMENT: * 81 F admitted for R breast partial mastectomy. Pt with history of Type 2 diabetes managed on Novolog 70/30 insulin at home. * While admitted patient will be managed on basal NPH insulin and bolus Novolog. * Yesterday, BSG [facility] to 307 mg/dl at HS. This is most likely caused by IV Dexamethasone 4 mg that pt received earlier yesterday. NPH 10 units ordered at HS and with breakfast today. * Fasting BSG today was 199 mg/dl this AM. Continued NPH BID. * Pre-lunch BSG trended down to 128 mg/dl. Will continue with current Novolog parameters. PLAN FOR INPATIENT GLYCEMIC CONTROL: * Basal insulin * NPH 10 units SQ BID with meals. * Bolus insulin * NovoLog per scale ACHS or Q6hrs while NPO * Goal Range: Low 110 mg/dL - High 140 mg/dL * Correction Factor: 30 mg/dL/unit * Nutritional / Prandial insulin per carb ratio of 1 unit per 10 grams CHO consumed PLAN FOR DISCHARGE: * TBD
[2021-09-18] MEDS: LACTATED RINGER'S 1,000 ML IV SCH (17:20)
[2021-09-18] MEDS ORDERED: SODIUM CHLORIDE 0.9% 500 ML IV SCH (20:15)
[2021-09-18] MEDS: POLYETHYLENE (MIRALAX) 17 GM PACK PO SCH (22:08)
[2021-09-18 23:09] LABS: Hematocrit (blood only) 35.9 % (37-47); Hemoglobin 11.5 g/dL (12.0-16.0)
[2021-09-18 23:29] LABS: Albumin Level 2.7 gm/dl (3.4-5.0); BUN Creatinine Ratio 23.4 (10-20); Calcium 8.7 mg/dl (8.5-10.1); Creatinine Clr Calc Pharmacy 25.4 ml/min; Est GFR (African American) 28.3 ml/min; Est GFR (Non-African American) 24.4 ml/min; Potassium 3.9 mmol/L (3.5-5.1)
[2021-09-18 23:32] LABS: Albumin Globulin Ratio 0.7 (0.9-2); Bilirubin,Total 0.2 mg/dl (0.2-1); Globulin 3.8 gm/dl (2.5-4.0); Total Protein 6.5 gm/dl (6.4-8.2)
[2021-09-19] MEDS: AMIODARONE 200 MG TAB PO SCH (00:23)
[2021-09-19] MEDS: RANOLAZINE 500 MG ER TAB PO SCH ×2 (01:10→09:01)
[2021-09-19] MEDS: LEVOTHYROXINE SODIUM 75 MCG TABLET PO SCH (04:18)
[2021-09-19 07:03] LABS: Hematocrit (blood only) 38.3 % (37-47); Hemoglobin 12.3 g/dL (12.0-16.0); Mean Corpuscular Hemoglobin 34.5 pg (25-34); Mean Corpuscular Hgb Conc 32.1 g/dL (32-36); Mean Corpuscular Volume 107.3 fL (80-100); Mean Platelet Volume 10.9 fL (7.4-10.4); Platelet Count 206 K/uL (130-400); RDW Coefficient of Variation 13.1 % (11.5-14.5); RDW Standard Deviation 51.4 fL (36.4-46.3); Red Blood Count 3.57 M/uL (4.2-5.4); White Blood Count 9.39 K/uL (4.8-10.8)
[2021-09-19 07:32] LABS: BUN Creatinine Ratio 23.1 (10-20); Creatinine Clr Calc Pharmacy 28.1 ml/min; Est GFR (Non-African American) 27.6 ml/min
[2021-09-19] MEDS: ASPIRIN 81 MG CHEW PO SCH (09:00)
[2021-09-19] MEDS: CHOLECALCIFEROL 1,000 UNITS 25 MCG TAB PO SCH (09:00)
[2021-09-19] MEDS: INSULIN HUMAN NPH SC SCH (09:01)
[2021-09-19] MEDS: FERROUS SULFATE 325 MG TAB PO SCH (09:01)
[2021-09-19] MEDS: INSULIN ASPART 100 UNITS/ML 3 ML PEN SC SCH ×2 (09:05→13:14)
--- NOTE | 2021-09-19 11:12 | Surgery Progress Note ---
Date of Service September 19, 2021 Assessment & Plan (1) Breast cancer, right: Plan: s/p right lumpectomy and sln biopsy. Surgical sites doing well. 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 Head CT negative. Unable to do MRI. OK to discharge but will resume her eliquis/ brillanta today (as opposed to tomorrow) Admission and Anticipated Discharge Date Admission Date: September 17, [address] negative yesterday. Unable to do MRI scan. 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 Numbness has receded to just the tips of the fingers. Feels well enough to go home. Notes BP is always about 20 points lower on the left arm. 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
--- NOTE | 2021-09-19 13:05 | Electrocardiogram Report ---
Test Reason : Blood Pressure : / mmHG Vent. Rate : 073 BPM Atrial Rate : 073 BPM P-R Int : 134 ms QRS Dur : 174 ms QT Int : 490 ms P-R-T Axes : 000 -77 100 degrees QTc Int : 539 ms AV dual-paced rhythm with occasional ventricular-paced complexes Biventricular pacemaker detected Abnormal ECG When compared with ECG of 05-AUG-2021 12:04, Vent. rate has increased BY 13 BPM Confirmed by Boby Benitez ([id number]) on 09/19/2021 1:04:56 PM Referred By: Hua Acosta Confirmed By:Boby Benitez
--- NOTE | 2021-09-20 15:04 | Mammography Report ---
SPECIMEN RIGHT BREAST: 09/17/2021 CLINICAL HISTORY: Status post right breast surgical excision. COMPARISON: Comparison is made to exams dated: 09/14/2021 localization, 08/25/2021 mammogram, 021 ultrasound biopsy, 08/17/2021 ultrasound, and 08/17/2021 mammogram - [facility]. Findings: A radiograph was performed of the right breast surgical specimen. The localized mass with a ssociated ribbon-shaped biopsy clip and [employer] fashion consultant sales reflector are located centrally within the specime n. Results were discussed with the surgeon over the telephone. IMPRESSION: SPECIMEN The imaged specimen contains the preoperatively localized abnormality as well as the [employer] fashion consultant sales refle ctor. Frannie Tobias M.D. /:09/17/2021 14:25:16 Windows Mobile Developer: OR Technologist, [facility]
--- NOTE | 2021-09-21 07:57 | Discharge Summary ---
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 Discharge Data Allergies Allergy/AdvReac Type Severity Reaction Status Date / Time adhesive Allergy Unknown REDNESS Verified 09/17/21 08:40 AND IRRITATION FROM PAIN PATCH, TAPE latex Allergy Unknown ALLERGIC Verified 09/17/21 08:40 TO LATEX TAPE/RASH/ITCHING morphine Allergy Unknown swelling Verified 09/17/21 08:40 nausea vomiting olmesartan Allergy Unknown UNKNOWN Verified 09/17/21 08:40 aspirin AdvReac Mild GI SYMPTOMS Verified 09/17/21 08:40 ezetimibe AdvReac Mild MUSCLE Verified 09/17/21 08:40 ACHES benzonatate AdvReac Unknown confusion Verified 09/17/21 08:40 [From Tessalon Perles] dulaglutide [From Trulicity] AdvReac Unknown AFFECTS Verified 09/17/21 08:40 MUSCLES exenatide [From Byetta] AdvReac Unknown Diarrhea Verified 09/17/21 08:40 glipizide AdvReac Unknown Diarrhea Verified 09/17/21 08:40 glyburide AdvReac Unknown Diarrhea Verified 09/17/21 08:40 lisinopril AdvReac Unknown LIGHTHEADED Verified 09/17/21 08:40 AND DIZZY losartan AdvReac Unknown dizziness Verified 09/17/21 08:40 metformin AdvReac Unknown Diarrhea Verified 09/17/21 08:40 pioglitazone AdvReac Unknown DIARRHEA Verified 09/17/21 08:40 NAUSEA sitagliptin [From Januvia] AdvReac Unknown Diarrhea Verified 09/17/21 08:40 Ngnsgiy-UDV-HiI Reductase AdvReac Unknown myalgias Verified 09/17/21 08:40 Inhibitor and [Txyuaqu-Mxp-Jha Reductase weakness Inhibitor] Consultations 09/17/21 15:37 Consult Hospitalist Routine Procedures Performed Operation Date: 09/17/21 11:00 Actual Procedures p Right Breast Partial Mastectomy with [employer] Unit Receptionist, Right Axillary [place] Lymph Node Biopsy(Right) - Hua Acosta DO Ordered Studies 09/17/21 05:00 US - OR guided needle placemen Routine 09/18/21 10:59 CT head/brain wo con Stat Hospital Course (1) Breast cancer, right: This is an 80y F with a history of newly diagnosed breast cancer found on mammogram who was admitted to the [facility] on 09/17/21 for surgical management. On 09/17/21 she underwent a right partial breast mastectomy and right sentinel lymph node biopsy with Dr. Acosta. The patient tolerated the procedure well, see op note for full details. The patient recovered in the PACU and was transferred to the nursing floor in stable condition for post op monitoring. The patient has many medical issues including carotid artery disease s/p bilateral CEA's in 2014 who developed re-stenosis of the L side >90%. While admitted the hospitalists were consulted for management of her medical issues and meds. Post op patient did report some right sided weakness of her upper extremity. A head CT was ordered that was negative for any acute abnormalities. They patient remained admitted for ongoing monitoring. During this time she was on a regular diet and pain controlled with prn pain meds. 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 It was decided patient should resume her eliquis and plavix on this day. She was deemed stable for discharge to home with plans for close follow up with Dr. Acosta (surgeon) for post op f/u and Dr. Bateman (vascular surgeon) for scheduling of carotid endarterectomy in the future. Her wounds were c/d/i, pain well controlled, and diet tolerated. Patient was discharged on 09/19/21. Total Time Total Time Spent Total Time Spent (In Minutes): 15 Discharge Plan Discharge Items Patient Disposition: Home - Self-Care Reason For Visit: Invasive Carcinoma Right Breast Discharge Diagnosis: right breast partial mastectomy right sentinel lymph node biopsy Activity: Per Instructions section Lifting: No more than 25 pounds Bathing Comment: may shower starting 09/18/21; no soaking in tubs/pools Exercise/Sports: Wait until after follow-up appointment Non-emergency contact: Surgeon Call non-emergency contact if: you have any medication questions, your symptoms worsen, your pain is not controlled, your pain is worsening, you have a fever, your temperature is above 101.5, your wound has increased redness, your wound has increased drainage and your wound pain has increased Follow-up/Referrals: Ebony Alvarenga DO [Primary Care Provider] - Hua Acosta DO [Physician] - 10/07/21 9:00 am (Please call to schedule follow up in clinic within 2 weeks) Diet: Regular Addtl Attending Provider Instructions: You may purchase Tylenol over the counter if needed for additional pain control You may resume your Brilinta and Eliquis on Monday09/20/21 Addtl Shift Supervisor Rn Provider Instructions: hold your Coreg today and tomorrow, okay to resume on Monday morning this is to improve perfusion to the brain please contact Dr. Bateman regarding stroke like symptoms you experienced, should not change your scheduled surgery but he needs to be aware I will send a message to his physician assistant manager/embalmer - Dr Lopez, Hospitalists Pending Studies at Discharge: Yes Studies:: surgical pathology Stand-Alone Forms: My [facility] [employer] Opioid Pain Management, Smoking Cessation Medications and DC Order Prescriptions: New oxycodone 5 mg tablet 5 - 10 mg PO .[id number] PRN (Reason: pain, for initial therapy, max 6 tabs per day) Qty: 12 RF: 0 Brilinta 90 mg tablet 90 mg PO BID Qty: 60 RF: 2 Continued OneTouch Verio test strips Strip 1 strip miscellaneous TID Qty: 100 RF: 3 digoxin 125 mcg (0.125 mg) tablet 125 mcg PO 3XWK Qty: 36 RF: 1 cholecalciferol (vitamin D3) 25 mcg (1,000 unit) capsule 1,000 unit PO QAM RF: 0 amiodarone 200 mg tablet 200 mg PO QPM Qty: 90 RF: 3 insulin syringe-needle U-100 0.3 mL 31 gauge x 5/16" syringe See Rx Instructions .ROUTE .COMPLEX Qty: 100 RF: 9 bumetanide 1 mg tablet 1 mg PO BID Qty: 180 RF: 3 calcitriol [Rocaltrol] 0.25 mcg capsule 0.25 mcg PO 3XWK Qty: 12 RF: 1 trazodone 50 mg tablet 50 mg PO HS PRN (Reason: insomnia) Qty: 90 RF: 1 pantoprazole [Protonix] 40 mg tablet,delayed release (DR/EC) 40 mg PO DAILY PRN (Reason: Stomach Upset) Qty: 90 RF: 3 levothyroxine 75 mcg tablet 75 mcg PO QAM Qty: 90 RF: 1 magnesium oxide 400 mg magnesium capsule 400 mg PO QPM Qty: 90 RF: 0 albuterol sulfate 90 mcg/actuation HFA aerosol inhaler 2 puff INHALATION Q6H PRN (Reason: Shortness Of Breath Or Wheezing) Qty: 8 RF: 1 ferrous sulfate [Feosol] 325 mg (65 mg iron) tablet 325 mg PO QAM RF: 0 potassium gluconate 595 mg (99 mg) tablet 595 mg PO QAM RF: 0 multivitamin [Multiple Vitamins] tablet 1 tab PO QAM RF: 0 vitamin E 400 unit capsule 400 unit PO QAM RF: 0 polyethylene glycol 3350 [Miralax] 17 gram/dose Powder 17 g PO HS RF: 0 carvedilol [Coreg] 6.25 mg Tablet 6.25 mg PO HS RF: 0 carvedilol [Coreg] 3.125 mg tablet 3.125 mg PO QAM RF: 0 insulin asp prt-insulin aspart [Novolog Mix 70-30 U-100 Insuln] 100 unit/mL (70-30) solution 15 - 30 unit SUBCUT AMPM RF: 0 garlic 1,000 mg capsule 1,000 mg PO QPM RF: 0 aspirin 81 mg Tablet,Chewable 81 mg PO QAM RF: 0 omega-3 fatty acids Capsule 1,000 mg PO DAILY RF: 0 ranolazine 500 mg tablet extended release 12 hr 500 mg PO BID RF: 0 Discontinued Eliquis 2.5 mg tablet 2.5 mg PO BID Qty: 180 RF: 3 Brilinta 90 mg tablet 90 mg PO BID Qty: 180 RF: 1 No Action Eliquis 2.5 mg tablet 2.5 mg PO BID Qty: 60 RF: 11 Discharge Orders: Discharge Order (Routine); Ordered 09/19/21 Ordered By: Lois Varghese/Other Patient Handouts: Managing Type 2 Diabetes, ED Diet: Diabetes Admission Data Admit Date/Time: 09/17/21 14:15 Attending Provider: Hua Acosta Admit Provider: Hua Acosta Primary Care Provider: Ebony Alvarenga Other Providers: Arcelia Durham ; Tesfaye Rodriguez ; Jose Forde ; John Downing ; Yvan Brown ; Gato Lopez ; Mracus Alcantara ; Deanna Ren ; Lisha Rolon ; Sammy Wright ; Latrice Oliveira ; Zahra Morel ; Gabe Guzman ; Papito Sultana ; Aníbal Madsen ; Arcelia Bryant ; João Romero ; Anaid Boucher ; Pascual Lundberg ; Tesfaye Husain ; Aurelio Lehman ; Corinne Kumari ; Krysta Garnett ; Bhanu Rueda ; Latrice Pak ; Kin Lopez ; Sergio Prakash ; Beth Mendoza Other Interventions: Discharge Summary Assessment (RN) Last Done: 09/19/21 11:35 Coding Level of Care Code D/C DAY MANAGEMENT <30 MINS Diagnoses Breast cancer, right C50.911
== END 2021-09-19 15:24 | disposition home or self-care (01) ==
LOC: ASU 07:27 → 3E 07:27

== ENCOUNTER 2021-09-27 05:55 | Inpatient (IN) ==
--- NOTE | 2021-09-14 13:10 | Communication Note ---
Date of Service: September 14, 2021 This is an 81yo female who had both carotid endarterectomies in 2015. She has now developed a 50-59% narrowing of her right carotid and >90% stenosis of her left carotid endarterectomy site. 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 Her stroke risk from having her cancer treated first is only mildly elevated. Her assisted benefit is more dependent on treating her cancer at this time than treating her carotid. Would recommend keeping her systolic pressure above 120 during surgery and post op i would recommend restarting her anticoagulation as soon as possible post op.
--- NOTE | 2021-09-20 08:41 | Anesthesiology Consultation ---
Date of Service September 20, 2021 Assessment & Plan (1) Encounter for pre-operative examination: Chart Review Chart Review: Acceptable Risk for Surgery (pending preop Covid testing results and anesthesia evaluation DOS ) and Patient NOT seen in Pre Admission Testing - Check BSG AM DOS - Discussed with Dr. Marquez- will get pacer rep present for DOS (pt for left CEA- had left sided ICD/pacer) (marked on OR sheet and also made OR aware verbally via phone) Per nursing assessment 09/07/21, pt denies any recent travel. Resides in [facility]. Wears mask when requried in stores but usually stays home. No known Covid positive contacts or Covid related symptoms. No known Covid infection in the past 90 days. Pt is fully vaccinated for Covid. Preop Covid testing scheduled 09/24/21= will await results Per surgical progress note 09/19/21= surgical sites doing well. 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 Head CT negative. Unable to do MRI. Okay to discharge but will resume Eliquis and Brillinta today. (Dr. Bateman's office was made aware- Dr Bateman and office plans to follow up with patient later this week- will leave to surgeon's discretion on how to proceed. Did discuss with Dr. Linn- agrees with plan.) Right breast partial mastectomy with [employer] Senior Grants Officer Localization, Right axillary sentinel lymph node biopsy 09/17/21 = Done under [place] with LMA #4. Atraumatic LMA insertion. Magnet placed secondary to pacemaker. Patient seen by cardiology 08/04/2021= Patient presents for preoperative cardiovascular evaluation prior to Redo of left carotid endarterectomy. The patient has a very complex past medical history, and her functional status is limited. She is at least a moderate risk for cardiovascular complications with surgery of this nature. It is therefore recommended that her primary hand buffer, Dr. Irizarry, give his recommendations prior to her undergoing the surgery as he knows her the best." Per addendum to note 08/09/21="Patient was discussed with Dr. Irizarry today.She is at least a moderate to high risk for surgery given her multiple comorbidities, but she is optimized from a cardiovascular standpoint. She is experiencing no anginal symptoms and she appeared euvolemic during her office visit on 08/04/21. No additional cardiovascular testing or intervention is recommended prior to patient's carotid surgery." (Pt was also deemed optimized for 09/17/21 breast surgery per cardio p juno note on 09/06/21) Pt seen by PCP 09/08/21 (prior to 09/17/21 breast surgery) = seen for preoperative clearance for upcoming right mastectomy surgical intervention. "After a careful review of her chart, evaluation of her medical file, and a thorough physical examination, I have found that she is an acceptable but guarded risk surgical candidate given her cardiac, pulmonary, Infectious and functional capacity. At this time, patient is medically cleared." Patient will be bridged with Lovenox History Surgery Operation Date: 08/24/21 10:50 Proposed Procedures p Left Carotid Endarterectomy - Anthony Bateman MD Operation Date: 09/28/21 11:40 Proposed Procedures p Left Carotid Endarterectomy REDO - Anthony Bateman MD Height/Weight Height: 5 ft 4 in Weight: 92.986 kg Allergies Allergy/AdvReac Type Severity Reaction Status Date / Time adhesive Allergy Unknown REDNESS Verified 09/17/21 08:40 AND IRRITATION FROM PAIN PATCH, TAPE latex Allergy Unknown ALLERGIC Verified 09/17/21 08:40 TO LATEX TAPE/RASH/ITCHING morphine Allergy Unknown swelling Verified 09/17/21 08:40 nausea vomiting olmesartan Allergy Unknown UNKNOWN Verified 09/17/21 08:40 aspirin AdvReac Mild GI SYMPTOMS Verified 09/17/21 08:40 ezetimibe AdvReac Mild MUSCLE Verified 09/17/21 08:40 ACHES benzonatate AdvReac Unknown confusion Verified 09/17/21 08:40 [From Tessalon Perles] dulaglutide [From Trulicity] AdvReac Unknown AFFECTS Verified 09/17/21 08:40 MUSCLES exenatide [From Byetta] AdvReac Unknown Diarrhea Verified 09/17/21 08:40 glipizide AdvReac Unknown Diarrhea Verified 09/17/21 08:40 glyburide AdvReac Unknown Diarrhea Verified 09/17/21 08:40 lisinopril AdvReac Unknown LIGHTHEADED Verified 09/17/21 08:40 AND DIZZY losartan AdvReac Unknown dizziness Verified 09/17/21 08:40 metformin AdvReac Unknown Diarrhea Verified 09/17/21 08:40 pioglitazone AdvReac Unknown DIARRHEA Verified 09/17/21 08:40 NAUSEA sitagliptin [From Octuvia] AdvReac Unknown Diarrhea Verified 09/17/21 08:40 Zvaahsc-EIK-QrO Reductase AdvReac Unknown myalgias Verified 09/17/21 08:40 Inhibitor and [Beoniuc-Qjy-Xpl Reductase weakness Inhibitor] Medications Home Medications Medication Instructions Recorded Confirmed Last Taken magnesium oxide 400 mg PO QPM #90 cap 04/01/19 09/17/21 09/16/21 multivitamin (Multiple Vitamins) 1 tab PO QAM 05/19/19 09/17/21 09/07/21 08:00 albuterol sulfate 90 mcg/actuation 2 puff INHALATION Q6H PRN #8 gm 06/11/19 09/16/21 Unknown aerosol inhaler blood sugar diagnostic (OneTouch 1 strip MISCELLANEOUS TID #100 ea 11/06/19 09/17/21 09/16/21 Verio test strips) polyethylene glycol 3350 17 17 g PO HS 03/29/20 09/17/21 09/16/21 20:00 gram/dose oral powder (Miralax) vitamin E 400 unit capsule 400 unit PO QAM 03/29/20 09/17/21 09/10/21 ferrous sulfate 325 mg (65 mg 325 mg PO QAM 10/27/20 09/17/21 09/14/21 08:00 iron) tablet (Feosol) carvedilol 6.25 mg tablet (Coreg) 6.25 mg PO HS 04/02/21 09/17/21 09/16/21 digoxin 125 mcg (0.125 mg) tablet 125 mcg PO 3XWK #36 tab 05/06/21 09/17/21 09/16/21 cholecalciferol (vitamin D3) 25 1,000 unit PO QAM cap 05/17/21 09/17/21 09/16/21 mcg (1,000 unit) capsule amiodarone 200 mg tablet 200 mg PO QPM #90 tab 06/10/21 09/17/21 09/16/21 insulin syringe-needle U-100 0.3 See Rx Instructions .ROUTE 06/28/21 09/17/21 Unknown mL 31 gauge x 5/16" .COMPLEX #100 unspecified carvedilol 3.125 mg tablet (Coreg) 3.125 mg PO QAM tab 07/02/21 09/17/2121 potassium gluconate 595 mg (99 mg) 595 mg PO QAM 07/02/21 09/17/21 09/16/21 tablet bumetanide 1 mg tablet 1 mg PO BID #180 tab 07/12/21 09/17/21 09/16/21 insulin aspar prt-insulin aspart 15 - 30 unit SUBCUT AMPM 07/29/21 09/17/21 09/17/21 06:00 100 unit/mL (70-30) subcutaneous 10 soln (Novolog Mix 70-30 U-100 Insuln) calcitriol 0.25 mcg capsule 0.25 mcg PO 3XWK #12 cap 08/24/21 09/17/21 09/16/21 (Rocaltrol) pantoprazole 40 mg tablet,delayed 40 mg PO DAILY PRN #90 tab 09/03/21 09/17/21 09/15/21 release (Protonix) trazodone 50 mg tablet 50 mg PO HS PRN #90 tab 09/03/21 09/17/21 08/17/21 garlic 1,000 mg capsule 1,000 mg PO QPM 09/07/21 09/17/21 09/07/21 08:00 levothyroxine 75 mcg tablet 75 mcg PO QAM #90 tab 09/13/21 09/17/21 09/17/21 06:00 aspirin 81 mg chewable tablet 81 mg PO QAM 09/15/21 09/17/21 09/17/21 06:00 omega-3 fatty acids 1,000 mg PO DAILY 09/15/21 09/17/21 09/07/21 08:00 ranolazine 500 mg tablet,extended 500 mg PO BID 09/16/21 09/17/21 09/16/21 release,12 hr oxycodone 5 mg tablet 5 - 10 mg PO .[id number] PRN #12 tab 09/17/21 Unknown apixaban 2.5 mg tablet (Eliquis) 2.5 mg PO BID #60 tab 09/19/21 Unknown ticagrelor 90 mg tablet (Brilinta) 90 mg PO BID #60 tab 09/19/21 Unknown Past Medical History Medical History Anemia due to chronic kidney disease Aortic stenosis, severe S/p TAVR 10/2019 Atrial flutter On Eliquis Bilateral carotid artery stenosis H/o bilateral CEAs in 2016 Per 07/2021 vascular note- carotid ultrasound from office visit showed patent right CEA with velocities suggesting 50-59% stenosis restenosis Patent left CEA with velocities suggesting 99% restenosis Biventricular ICD (implantable cardioverter-defibrillator) in place (04/30/20) Medtronic implanted 04/30/2020. Capped right ventricular pacing lead Last check 03/22/21 Breast cancer, right Right breast mastectomy 09/17/21 at [facility] CAD (coronary artery disease) F/U DR IRIZARRY S/p NATY x 1 to Cx in 2019; NATY to ostial LM 01/10/20 Chronic combined systolic and diastolic CHF (congestive heart failure) EF 40-45% per 10/2020 ECHO Chronic kidney disease STAGE IV-F/U DR SALINAS Chronic obstructive pulmonary disease, unspecified Breathing stable Depression HX Diabetes mellitus, type 2 Glucose fluctuates DVT (deep venous thrombosis) LOWER LEG 2019 GERD (gastroesophageal reflux disease) Well controlled and stable HLD (hyperlipidemia) HTN (hypertension) Hypothyroidism Insomnia Ischemic cardiomyopathy Left bundle branch block NSTEMI (non-ST elevated myocardial infarction) Most recent 12/2019 (mild per patient) PAD (peripheral artery disease) S/p BUSINESS SUPPORT SPECIALIST and stenting of right SFA, and BUSINESS SUPPORT SPECIALIST of left SFA and common femoral ar dolores Pulmonary hypertension RVSP 40-45mmHg on 10/2020 ECHO Rheumatoid arthritis No medications Followed with rheum in the past- no recent issues Secondary hyperparathyroidism of renal origin SOB (shortness of breath) on exertion Spondylosis Subclavian artery stenosis Past Family History Family History Daughter Coronary heart disease Mother Diabetes Family history of hypercholesterolemia Myocardial infarction Hypertension Stroke Brother Colorectal cancer Aunt No problems noted. Father Diabetes Hypertension Other Pacemaker Denies family history of Ovarian cancer Prostate cancer Breast cancer Past Surgical History Surgical History H/O: section History of appendectomy History of cardiac cath TOTAL 6? STENTS- 2018 and 2019 History of cataract surgery right and left History of cholecystectomy History of colonoscopy History of hysterectomy History of oophorectomy S/P angioplasty (02/03/21) BUSINESS SUPPORT SPECIALIST L SFA S/P carotid endarterectomy B/l 2016 S/P coronary artery stent placement (10/2017) NATY to mid LAD S/P coronary artery stent placement (10/2018) NATY prox mid LAD 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) S/P thoracentesis (03/2020) b/l d/t CHF Status post partial mastectomy of right breast 09/17/21 - Done under GA with LMA #4. Atraumatic LMA insertion. Magnet placed secondary to pacemaker. Social History Smoking Status: Never smoker Do You Dip or Chew Tobacco: No Hx Alcohol Use: No Hx Substance Use: No substance use type: does not use Lab Results Anesthesia Preop Results Results Anesthesia Widget: WBC 9.39 K/uL (4.8-10.8) 09/19/21 Hgb 12.3 g/dL (12.0-16.0) 09/19/21 Hct 38.3 % (37-47) 09/19/21 Plt 206 K/uL (130-400) 09/19/21 Na 141 mmol/L (136-145) 09/19/21 K 4.0 mmol/L (3.5-5.1) 09/19/21 Cl 107 mmol/L (98-107) 09/19/21 CO2 27 mmol/L (21-32) 09/19/21 BUN 39 mg/dl (7-18) H 09/19/21 Creat 1.70 mg/dl (0.6-1.2) H 09/19/21 POC Glucose 124 mg/dl (70-99) H 09/19/21 PT 10.2 Seconds (9.0-12.0) 08/05/21 PTT 26.0 Seconds (21.0-31.0) 08/05/21 INR 1.0 (0.9-1.1) 08/05/21 HA1c 6.7 % (4.5-5.6) H 08/05/21 Blood Type A Positive 08/05/21 Antibody Screen NEGATIVE 08/05/21 Lab Comments: Elevated creatine chronic and stable Testing Electrocardiogram Date: 09/18/21 AV dual-paced rhythm with occ ventricular paced complexes at 73bpm. Biventricular pacemaker detected. Chest X-Ray Date: 08/05/21 Findings: + NAD Redemonstration of a small right pleural effusion with right basilar opacity which likely reflects atelectasis. No acute cardiopulmonary findings. Left subclavian biventricular pacer/AICD and prosthetic cardiac valve are noted. Echocardiogram Date: 10/22/20 EF: 40-45% LV Function: dysfunctional Other Findings: no LVH Mild LV dilation and systolic dysfunction. Basal posterior HK. Other LV segments are mildly HK. No thrombus. Lipomatous hypertrophy of interatrial septum is noted. Moderate left atrial dilation. Properly functioning TAVR. Moderate TR/MR. Mildly elevated estimated RVSP= 40-45mmHg. Compared to 12/11/19 ECHO- LV EF and systolic function have improved. RVSP has decreased Cardiac Catheterization Date: 01/10/20 LM= 70% ostial stenosis LAD= 30% proximal disease, mid LAD stents widely patent with minimal in-stent restenosis. Cx=mid segment stent widely patent , 60-70% OM1 proximal disease RCA= mid to distal luminal irregularities Impression: Severe ostial left main stenosis. Moderate residual ostial circumflex, OM1 disease. Widely patent ostial RCA, LAD and mid circumflex stents. Successful PCI of ostial left main with single drug-eluting stent (4.0 x 12 mm Xience Jewell). Pulmonary Function Test Date: 04/22/20 Moderate restrictive physiology with significant bronchodilator response. Pt unable to perform DLCO. Clinical correlation recommended Cervical Spine Date: 08/05/21 Osteopenia and degenerative change. No acute bony abnormality is identified on these lateral projections. There is no inducible bony subluxation on the flexion/extension views. Other Testing Head CT 09/18/21= no acute intracranial findings Pacemaker check 03/22/21= Medtronic pacemaker. Implanted 04/30/20. Atrial paced 99.4%, RV paced 99.8%, LV paced 99.8%. Mode DDDR. Known atrial flutter- pt on Eliquis. VT episodes= 0.
[2021-09-27] MEDS ORDERED: SODIUM CHLORIDE 0.9% 1000ML IV SCH (06:00)
[2021-09-27] MEDS ORDERED: ceFAZolin 2000MG 2,000 MG/15 ML SYR IV SCH (06:00)
[2021-09-27] MEDS ORDERED: PHENYLEPHRINE HCL 10 MG/ML VIAL ONE ×2 (06:56→10:27)
[2021-09-27] MEDS ORDERED: PROPOFOL IV EMULSION 10 MG/ML 20 ML VIAL IV ONE ×2 (06:56→09:59)
[2021-09-27] MEDS ORDERED: DEXAMETHASONE SOD INJ 4 MG/ML VIAL ONE (06:56)
[2021-09-27] MEDS ORDERED: ONDANSETRON INJ 2 MG/ML 2 ML VIAL ONE (06:56)
[2021-09-27] MEDS ORDERED: LIDOCAINE 2% 20 MG/ML 5 ML SYR IV ONE (06:56)
[2021-09-27] MEDS ORDERED: ROCURONIUM BROMIDE 10 MG/ML 5 ML VIAL IV ONE ×3 (06:56→11:56)
[2021-09-27] MEDS ORDERED: fentaNYL citrate 100 MCG/2 ML VIAL ONE (06:56)
[2021-09-27] MEDS ORDERED: REMIFENTANIL HCL 1 MG VIAL ONE (07:01)
[2021-09-27 07:06] LABS: BUN Creatinine Ratio 17.8 (10-20); Calcium 9.4 mg/dl (8.5-10.1); Creatinine Clr Calc Pharmacy 23.3 ml/min; Est GFR (African American) 25.4 ml/min; Est GFR (Non-African American) 21.9 ml/min
[2021-09-27] MEDS ORDERED: ePHEDrine sulfate 50 MG/ML AMP IV PRN (07:20)
[2021-09-27] MEDS ORDERED: ATROPINE SULFATE 0.1 MG/ML 10ML SYR IV PRN (07:20)
[2021-09-27] MEDS ORDERED: ONDANSETRON INJ 2 MG/ML 2 ML VIAL IV PRN ×2 (07:20→21:49)
[2021-09-27] MEDS ORDERED: HYDROmorphone INJ 2 MG/ML SYR/VIAL IV PRN (07:20)
[2021-09-27] MEDS ORDERED: fentaNYL citrate 100 MCG/2 ML VIAL IV PRN (07:20)
--- NOTE | 2021-09-27 07:22 | History & Physical Report ---
Date of Service September 27, 2021 Assessment & Plan (1) Stenosis of left internal carotid artery: Plan: Patient is for a redo left CEA for pre occlusive stenosis. I have discussed the risks options and benefits of the procedure with the patient. The patient understands the risks options and benefits and agrees to the procedure. History of Present Illness Chief Complaint: Restenosis of left internal carotid artery Primary Care Provider: Ebony Alvarenga DO Mrs. Barry is an elderly female who has previously undergone bilateral carotid endarterectomies back in 2016, and more recently underwent bilateral lower extremity angiography with intervention with CIRCUIT JUDGE and stenting of the right SFA, and CIRCUIT JUDGE of her left SFA and common femoral artery. Patient states that she is feeling better than she has in quite a while. She denies any complaints or concerns related to her legs aside from feeling stiff after she has been sitting for a while. She denies any claudication symptoms, rest pain, nonhealing wounds or ulcers, other new complaints. Patient does state to having severe black floaters develop in her left eye, for which she saw her dicer machine operator who did not feel that it was anything significant at the time. This was about 4 to 6 months ago. She states that her floaters have mostly resolved, but she still has a few. She did have a TIA after her breast surgery leaving her with slight left hand weakness. She denies any symptoms of cerebrovascular insufficiency including amaurosis, extremity weakness numbness or tingling, difficulty speaking or swallowing, facial droop, headache, dizziness, other complaints. Her bilateral lower extremity arterial ultrasound demonstrates occlusion of her mid to distal right SFA with reperfusion via collaterals, 50% stenosis of her popliteal artery and occlusion of her posterior tibial and anterior tibial arteries with a right leg RYLIE of 0.42. Her left leg demonstrates 75% stenosis of her distal left external iliac, 50% stenosis of her SFA 50% stenosis of her popliteal and occlusion of her posterior tibial artery. Her left RYLIE is 0.6. Her carotid ultrasound performed prior to today's demonstrates a patent right carotid endarterectomy site with mildly increased velocities indicating a 50 to 59% restenosis, patent left carotid endarterectomy site with elevated velocities suggesting 99% restenosis, normal antegrade flow in her right vertebral, retrograde flow in the left vertebral and a 60 point differential and brachial systolic pressures with the right being greater than the left due to her subclavian stenosis. In comparison to her previous carotid ultrasound performed 6 months ago, the left carotid restenosis is significantly worse. Allergies Allergy/AdvReac Type Severity Reaction Status Date / Time adhesive Allergy Unknown REDNESS Verified 09/27/21 06:34 AND IRRITATION FROM PAIN PATCH, TAPE latex Allergy Unknown ALLERGIC Verified 09/27/21 06:34 TO LATEX TAPE/RASH/ITCHING morphine Allergy Unknown swelling Verified 09/27/21 06:34 nausea vomiting olmesartan Allergy Unknown UNKNOWN Verified 09/27/21 06:34 aspirin AdvReac Mild GI SYMPTOMS Verified 09/27/21 06:34 ezetimibe AdvReac Mild MUSCLE Verified 09/27/21 06:34 ACHES benzonatate AdvReac Unknown confusion Verified 09/27/21 06:34 [From Tessalon Perles] dulaglutide [From Trulicity] AdvReac Unknown AFFECTS Verified 09/27/21 06:34 MUSCLES exenatide [From Byetta] AdvReac Unknown Diarrhea Verified 09/27/21 06:34 glipizide AdvReac Unknown Diarrhea Verified 09/27/21 06:34 glyburide AdvReac Unknown Diarrhea Verified 09/27/21 06:34 lisinopril AdvReac Unknown LIGHTHEADED Verified 09/27/21 06:34 AND DIZZY losartan AdvReac Unknown dizziness Verified 09/27/21 06:34 metformin AdvReac Unknown Diarrhea Verified 09/27/21 06:34 pioglitazone AdvReac Unknown DIARRHEA Verified 09/27/21 06:34 NAUSEA sitagliptin [From Januvia] AdvReac Unknown Diarrhea Verified 09/27/21 06:34 [id number]-[id number]-CyY Reductase AdvReac Unknown myalgias Verified 09/27/21 06:34 Inhibitor and [Vckmhsf-Aia-Ngi Reductase weakness Inhibitor] Home Medications Medication Instructions Recorded Confirmed Type magnesium oxide 400 mg PO QPM #90 cap 04/01/19 09/27/21 Rx multivitamin (Multiple Vitamins) 1 tab PO QAM 05/19/19 09/27/21 History albuterol sulfate 90 mcg/actuation 2 puff INHALATION Q6H PRN #8 gm 06/11/19 09/27/21 Rx aerosol inhaler blood sugar diagnostic (OneTouch 1 strip MISCELLANEOUS TID #100 ea 11/06/19 09/27/21 Rx Verio test strips) polyethylene glycol 3350 17 17 g PO HS 03/29/20 09/27/21 History gram/dose oral powder (Miralax) vitamin E 400 unit capsule 400 unit PO QAM 03/29/20 09/27/21 History ferrous sulfate 325 mg (65 mg 325 mg PO QAM 10/27/20 09/27/21 History iron) tablet (Feosol) carvedilol 6.25 mg tablet (Coreg) 6.25 mg PO HS 04/02/21 09/27/21 History digoxin 125 mcg (0.125 mg) tablet 125 mcg PO 3XWK #36 tab 05/06/21 09/27/21 Rx cholecalciferol (vitamin D3) 25 1,000 unit PO QAM cap 05/17/21 09/27/21 History mcg (1,000 unit) capsule insulin syringe-needle U-100 0.3 See Rx Instructions .ROUTE 06/28/21 09/27/21 Rx mL 31 gauge x 5/16" .COMPLEX #100 unspecified carvedilol 3.125 mg tablet (Coreg) 3.125 mg PO QAM tab 07/02/21 09/27/21 History potassium gluconate 595 mg (99 mg) 595 mg PO QAM 07/02/21 09/27/21 History tablet bumetanide 1 mg tablet 1 mg PO BID #180 tab 07/12/21 09/27/21 Rx insulin aspar prt-insulin aspart 15 - 30 unit SUBCUT AMPM 07/29/21 09/27/21 History 100 unit/mL (70-30) subcutaneous soln (Novolog Mix 70-30 U-100 Insuln) calcitriol 0.25 mcg capsule 0.25 mcg PO 3XWK #12 cap 08/24/21 09/27/21 Rx (Rocaltrol) pantoprazole 40 mg tablet,delayed 40 mg PO DAILY PRN #90 tab 09/03/21 09/27/21 Rx release (Protonix) trazodone 50 mg tablet 50 mg PO HS PRN #90 tab 09/03/21 09/27/21 Rx garlic 1,000 mg capsule 1,000 mg PO QPM 09/07/21 09/27/21 History levothyroxine 75 mcg tablet 75 mcg PO QAM #90 tab 09/13/21 09/27/21 Rx aspirin 81 mg chewable tablet 81 mg PO QAM 09/15/21 09/27/21 History omega-3 fatty acids 1,000 mg PO DAILY 09/15/21 09/27/21 History ranolazine 500 mg tablet,extended 500 mg PO BID 09/16/21 09/27/21 History release,12 hr (Ranexa) oxycodone 5 mg tablet 5 - 10 mg PO .[id number] PRN #12 tab 09/17/21 09/27/21 Rx ticagrelor 90 mg tablet (Brilinta) 90 mg PO BID #60 tab 09/19/21 09/27/21 Rx apixaban 2.5 mg tablet (Eliquis) 2.5 mg PO BID #60 tab 09/20/21 09/27/21 Rx amiodarone 200 mg tablet (Pacerone) 200 mg PO QPM 09/27/21 09/27/21 History Past Med/Surg History Medical History Anemia due to chronic kidney disease Aortic stenosis, severe S/p TAVR 10/2019 Atrial flutter On Eliquis Bilateral carotid artery stenosis H/o bilateral CEAs in 2016 Per 07/2021 vascular note- carotid ultrasound from office visit showed patent right CEA with velocities suggesting 50-59% stenosis restenosis Patent left CEA with velocities suggesting 99% restenosis Biventricular ICD (implantable cardioverter-defibrillator) in place (04/30/20) Medtr[employer] implanted 04/30/2020. Capped right ventricular pacing lead Last check 03/22/21 Breast cancer, right Right breast mastectomy 09/17/21 at [facility] CAD (coronary artery disease) F/U DR CUEVA S/p NATY x 1 to Cx in 2018; NATY to ostial LM 01/10/20 Chronic combined systolic and diastolic CHF (congestive heart failure) EF 40-45% per 10/2020 ECHO Chronic kidney disease STAGE IV-F/U DR SALINAS Chronic obstructive pulmonary disease, unspecified Breathing stable Diabetes mellitus, type 2 Glucose fluctuates DVT (deep venous thrombosis) LOWER LEG 2019 GERD (gastroesophageal reflux disease) Well controlled and stable History of CVA (cerebrovascular accident) 09/23/21. numbness and weakness in right arm HLD (hyperlipidemia) HTN (hypertension) Hypothyroidism Insomnia Ischemic cardiomyopathy Left bundle branch block NSTEMI (non-ST elevated myocardial infarction) Most recent 12/2019 (mild per patient) PAD (peripheral artery disease) S/p CIRCUIT JUDGE and stenting of right SFA, and CIRCUIT JUDGE of left SFA and common femoral artery Pulmonary hypertension RVSP 40-45mmHg on 10/2020 ECHO Rheumatoid arthritis No medications Followed with rheum in the past- no recent issues Secondary hyperparathyroidism of renal origin SOB (shortness of breath) on exertion Spondylosis Subclavian artery stenosis Surgical History H/O: section History of appendectomy History of cardiac cath TOTAL 6? STENTS- 2018 and 2019 History of cataract surgery right and left History of cholecystectomy History of colonoscopy History of hysterectomy History of oophorectomy S/P angioplasty (02/03/21) CIRCUIT JUDGE L SFA S/P carotid endarterectomy B/l 2015 S/P coronary artery stent placement (10/2017) NATY to mid LAD S/P coronary artery stent placement (10/2018) NATY prox mid LAD 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) S/P thoracentesis (03/2020) b/l d/t CHF Status post partial mastectomy of right breast 09/17/21 - Done under [facility] with LMA #4. Atraumatic LMA insertion. Magnet placed secondary to pacemaker. Right Breast Partial Mastectomy with [place] Coordinator Localization, Right Axillary [place] Lymph Node Biopsy(Right) - Hua Acosta, DO Family History Daughter Coronary heart disease Mother Diabetes Family history of hypercholesterolemia Myocardial infarction Hypertension Stroke Brother Colorectal cancer Aunt No problems noted. Father Diabetes Hypertension Other Pacemaker Denies family history of Ovarian cancer Prostate cancer Breast cancer Social History Smoking Status: Never smoker Second Hand Exposure: No; Do You Dip or Chew Tobacco: No; Hx Alcohol Use: No Hx Substance Use: No Preferred Language: Ukrainian Communication Ability: Effective Visual Impairment: Limited Hearing Ability: Use of Hearing Aid Opening Machine Cleaner Required: No Beliefs That Will Affect Care: None marital status: / marital status details: passed 2000 Current Living Situation: Alone current occupational status: retired current occupation: How many Children do You have: 2 Other Information That Helps Us Care for You: No Feels Safe at Home: Yes Safety Concerns: Feels Safe At This Time Childhood Exposure to Second-Hand Smoke: Yes caffeine: Yes Dental Care, Regularly: Yes Physical Activity Frequency: Does not Exercise Seatbelt Use: always Sunscreen Use: No Assistive Devices: None Assistive Devices Comment: CNE PRN Review of Systems All systems reviewed & are unremarkable except as noted in HPI & below Physical Exam Constitutional: WD/WN, vitals as above Neck: trachea midline, no thyromegaly Respiratory: normal respiratory effort, lungs clear to auscultation Cardiovascular: RRR, no murmur, no edema Gastrointestinal (Abdomen): normal bowel sounds, soft, nontender, no hepatosplenomegaly Musculoskeletal: no cyanosis or clubbing, extremities motor strength 5/5 Neurologic: CN's II-XI intact bilaterally and moves all extremities Psychiatric: Orientation: alert and oriented x 3 Results & Data ([facility]) Vital Signs (Past 12 Hours) Vital Signs Temp Pulse Resp BP Pulse Ox 09/27/21 06:51 36.4 C L 74 18 104/57 L 99
[2021-09-27] MEDS ORDERED: HEPARIN (PORCINE) 1000 UNIT/ML 10 ML (CATH LAB USE ONLY) ONE (07:24)
[2021-09-27] MEDS ORDERED: EPINEPHrine INJ 1 MG/ML AMP ONE (07:24)
[2021-09-27] MEDS ORDERED: BUPIVACAINE 0.5 % 5 MG/1 ML MPF 30ML VIAL ONE (07:25)
[2021-09-27] MEDS ORDERED: GELATIN SPONGE SZ 100 ONE ×2 (07:25→10:27)
[2021-09-27] MEDS ORDERED: THROMBIN FOR SOLN 20000 UNIT KIT ONE ×2 (07:25→11:09)
[2021-09-27] MEDS ORDERED: LIDOCAINE 1% LOCAL 20 ML VIAL ONE (07:25)
--- NOTE | 2021-09-27 08:41 | Communication Note ---
Date of Service: September 27, 2021 pt has an occluded left subclavian making monitoring with nina inaccurate. D/w Dr perze and pt that the nina needs to be placed on the right side despite limb restriction. the nina was placed using sterile technique and ultrasound. 2 attempts made in right wrist. successful attempt made in right ac.
[2021-09-27] MEDS ORDERED: NITROGLYCERIN 5 MG/ML 10 ML VIAL ONE (09:03)
[2021-09-27] MEDS ORDERED: SURGICEL ABSORB HEMOSTAT 2IN X 14IN TOP ONE (10:33)
[2021-09-27] MEDS ORDERED: GLYCOPYRROLATE 0.2 MG/ML VIAL ONE (11:44)
[2021-09-27] MEDS ORDERED: NEOSTIGMINE METHYLSULFATE 1 MG/ML 10ML VIAL ONE (11:44)
--- NOTE | 2021-09-27 12:08 | Operative Report ---
Post Operative Report Pre & Post Diagnosis Operation Date: 08/24/21 10:50 <No data on this case meets the specified criteria> Operation Date: 09/27/21 07:30 Pre-Op Diagnosis: Left Internal Carotid Artery Stenosis Post-Op Diagnosis: Left Internal Carotid Artery Stenosis I identified the patient and participated in the time-out.: Yes Procedure Operation Date: 08/24/21 10:50 <No data on this case meets the specified criteria> Operation Date: 09/27/21 07:30 Actual Procedures p Left Carotid Endarterectomy REDO with Interpositioning graft(Left) - Anthony Bateman MD Surgeon Anthony Bateman MD Optometry Assistant Emily,PAC Estimated Blood Loss 400 Findings Consistent with Post-Op Diagnosis Specimens plaque Anesthesia Type General Complications none Disposition Accompanied Patient To Recovery: No Disposition: Recovery Room Indications Patient is an 86yo female with preocclusive left internal carotid restenosis with a recent TIA. Endarterectomy was recommended. I have discussed the risks options and benefits of the procedure with the patient. The patient understands the risks options and benefits and agrees to the procedure. Description of Procedure The patient was taken to the operating room and placed in supine position. After general anesthesia was accomplished the left side of the neck was prepped and draped in a sterile manner. The patient was identified and a timeout performed. A longitudinal neck incision was then made coursing along the medial border of the sternocleidomastoid muscle. The incision was taken down through the platysmal layer. The common carotid artery was then seen. It was dissected free down to the omohyoid muscle. The dissection was carried upward until the external carotid artery and superior thyroid artery was seen. The external carotid was slung with a red rubber vessel loop. Next the dissection was carried up along the internal carotid artery. This was carried upward to beyond the area of narrowing. The hypoglossal nerve was not seen during the dissection. It was most likely located higher than our operative field. The patient was heparinized. After adequate heparinization was accomplished, the internal, external, and common carotid arteries were clamped. A longitudinal arteriotomy was started on the common carotid artery and extended upward along the internal carotid artery to a point beyond the area of narrowing. There was calcified plaque of the internal carotid artery origin causing a near occlusion. There was subacute clot within the plaque. There was good back bleeding seen from the internal carotid artery. The endarterectomy was then started in the appropriate plane on the common carotid artery. This was carried upward and the external carotid was everted and endarterectomized. The endarterectomy was then carried up along the internal carotid artery but this resulted in a very thin proximal internal cartotid artery with exposed muscle figers. It was decided to replace this segment of artery. A Sundt shunt was then placed in the internal, followed by the common carotid artery and held in place with Terrell clamps. A 6mm propaten graft was placed over the shunt. An end to end anastomosis was then done using 6-0 Prolene suture. This was done in the usual vascular fashion. Prior to completing the closure, the shunt was removed and the internal and common carotid arteries were reclamped. Backbleeding and forward bleeding was allowed to occur. The flow surface was irrigated with heparinized saline. The final few sutures were then placed and securely tied. Clamps were then removed off the external and common carotid arteries. The clamp was then removed the internal carotid artery. Good distal flow was seen. After a few single sutures were placed, adequate hemostasis was seen of the graft. The wound was inspected and adequate hemostasis was obtained. The wound was irrigated with antibiotic solution. It was then closed with a running 3-0 Vicryl suture for the platysmal layer and a 4-0 subcuticular Vicryl suture for the skin edges. Dermabond was used for dressing. The patient left the operation room in satisfactory condition and tolerated the procedure well. All needle and sponge counts were correct at the end of the procedure. Heide Orellana Pac assisted due to lack of resident availability and was necessary for prepping, draping, retraction, wound closure defects, subQ and skin closure and was necessary for the case. I attest to the content of the Intraoperative Record and any orders documented therein. Any exceptions are noted below.
--- NOTE | 2021-09-27 13:35 | Anesthesiology Progress Note ---
Date of Service September 27, 2021 Anesthesia Post Procedure Vital Signs Vital Signs: Temp Pulse Pulse Resp BP BP Pulse Ox 09/27/21 13:15 36.2 C L 90 19 85/65 L 120/60 95 09/27/21 13:05 36.2 C L 90 18 82/62 L 122/50 L 96 09/27/21 12:55 90 16 85/59 L 121/49 L 95 09/27/21 12:45 90 22 86/54 L 113/47 L 98 09/27/21 12:35 90 13 86/72 L 127/55 L 98 09/27/21 12:25 36.2 C L 95 H 16 132/53 L 98 09/27/21 06:51 36.4 C L 74 18 104/57 L 99 Transfer of Care Handoff Completed per policy Notes Mental Status: alert / awake / arousable and participated in evaluation Patient Amnestic to Procedure: Yes Nausea / Vomiting: adequately controlled Pain: adequately controlled Airway Patency, RR, SpO2: stable & adequate BP & HR: stable & adequate Hydration State: stable & adequate Anesthetic Complications: no major complications apparent and Pt Satisfied with anesthetic care Notes: moving all extremities
[2021-09-27] MEDS ORDERED: PANTOprazole 40 MG TAB PO PRN (13:47)
[2021-09-27] MEDS ORDERED: oxyCODONE/ACETAMINOPHEN 5mg/325mg TAB PO PRN (13:47)
[2021-09-27] MEDS ORDERED: traZODone HCL 50 MG TAB PO PRN (13:47)
[2021-09-27] MEDS ORDERED: ALBUTEROL HFA 8 GM INHALER INH PRN (13:47)
[2021-09-27] MEDS ORDERED: NON-FORMULARY MEDICATION (Blood Sugar Diagnostic [Onetouch Verio Test Strips] strip) MS SCH (14:00)
[2021-09-27] MEDS: LACTATED RINGER'S 1,000 ML IV SCH ×3 (14:10→22:44)
[2021-09-27] MEDS ORDERED: GLUCOSE 40% GEL 15 GM TUBE PO PRN (14:15)
[2021-09-27] MEDS ORDERED: DEXTROSE 50% 50 ML SYRINGE IV PRN (14:15)
[2021-09-27] MEDS ORDERED: GLUCAGON FOR INJ 1 MG VIAL IM PRN (14:15)
[2021-09-27] MEDS ORDERED: CARBOHYDRATES FOR HYPOGLYCEMIA PO PRN (14:15)
[2021-09-27] MEDS ORDERED: GLUCOSE 10 TABS/TUBE PO PRN (14:15)
--- NOTE | 2021-09-27 14:23 | Critical Care Consultation ---
Date of Consultation September 27, 2021 Assessment & Plan (1) Stenosis of left internal carotid artery: (2) DM II (diabetes mellitus, type II), controlled: Impression: 81-year-old female with history of peripheral vascular disease status post redo of left carotid endarterectomy due to restenosis. She is being monitored in the ICU. Recommendations: 1. Post carotid endarterectomy: Management per vascular surgery. 2. Hypertension: Continue blood pressure control per vascular surgery guide lines. 3. Mild anemia: No indication for transfusion currently. Continue to follow. 4. Severe headache: Vascular surgery aware. Trying narcotics and steroids. 5. Chronic kidney disease: Creatinine 2.06 today, slightly increased from her baseline which appears to be 1.9-2. We will continue to follow. Avoid nephrotoxic agents. Electrolytes and acid-base status are stable. 6. Diabetes: Glycemic control per ICU protocol. 7. DVT and GI prophylaxis per vascular surgery. Patient appears to be doing relatively well clinically. We will continue to follow in the ICU per protocol. History of Present Illness Attending Physician: Anthony Bateman MD History of Present Illness Asked by vascular surgery to assist with critical care management this patient status post carotid endarterectomy. History is obtained from discussion with the patient as well as review of electronic medical record. The patient is an 81-year-old female who has a prior history of carotid endarterectomy in 2016. She had noted eye floaters in her left eye and had a carotid ultrasound performed revealing a patent right with 99% restenosis on the left. She was taken to the OR today for carotid endarterectomy and returns to the ICU for monitoring. She is complaining of right-sided headache but is not having any vision changes. No weakness numbness or tingling. She is slightly hypertensive. She just received some Percocet and has steroids ordered in the event that her cephalgia is not improved. She denies any chest pain palpitations nausea vomiting or diarrhea. Allergies Allergy/AdvReac Type Severity Reaction Status Date / Time adhesive Allergy Unknown REDNESS Verified 09/27/21 06:34 AND IRRITATION FROM PAIN PATCH, TAPE latex Allergy Unknown ALLERGIC Verified 09/27/21 06:34 TO LATEX TAPE/RASH/ITCHING morphine Allergy Unknown swelling Verified 09/27/21 06:34 nausea vomiting olmesartan Allergy Unknown UNKNOWN Verified 09/27/21 06:34 aspirin AdvReac Mild GI SYMPTOMS Verified 09/27/21 06:34 ezetimibe AdvReac Mild MUSCLE Verified 09/27/21 06:34 ACHES benzonatate AdvReac Unknown confusion Verified 09/27/21 06:34 [From Giovanni Brennan] dulaglutide [From Trulicity] AdvReac Unknown AFFECTS Verified 09/27/21 06:34 MUSCLES exenatide [From Byetta] AdvReac Unknown Diarrhea Verified 09/27/21 06:34 glipizide AdvReac Unknown Diarrhea Verified 09/27/21 06:34 glyburide AdvReac Unknown Diarrhea Verified 09/27/21 06:34 lisinopril AdvReac Unknown LIGHTHEADED Verified 09/27/21 06:34 AND DIZZY losartan AdvReac Unknown dizziness Verified 09/27/21 06:34 metformin AdvReac Unknown Diarrhea Verified 09/27/21 06:34 pioglitazone AdvReac Unknown DIARRHEA Verified 09/27/21 06:34 NAUSEA sitagliptin [From Januvia] AdvReac Unknown Diarrhea Verified 09/27/21 06:34 Jlwfwcx-HPA-VjR Reductase AdvReac Unknown myalgias Verified 09/27/21 06:34 Inhibitor and [Rdeonwz-Hla-Qvn Reductase weakness Inhibitor] Home Medications Medication Instructions Recorded Confirmed Type magnesium oxide 400 mg PO QPM #90 cap 04/01/19 09/27/21 Rx multivitamin (Multiple Vitamins) 1 tab PO QAM 05/19/19 09/27/21 History albuterol sulfate 90 mcg/actuation 2 puff INHALATION Q6H PRN #8 gm 06/11/19 09/27/21 Rx aerosol inhaler blood sugar diagnostic (OneTouch 1 strip MISCELLANEOUS TID #100 ea 11/06/19 09/27/21 Rx Verio test strips) polyethylene glycol 3350 17 17 g PO HS 03/29/20 09/27/21 History gram/dose oral powder (Miralax) vitamin E 400 unit capsule 400 unit PO QAM 03/29/20 09/27/21 History ferrous sulfate 325 mg (65 mg 325 mg PO QAM 10/27/20 09/27/21 History iron) tablet (Feosol) carvedilol 6.25 mg tablet (Coreg) 6.25 mg PO HS 04/02/21 09/27/21 History digoxin 125 mcg (0.125 mg) tablet 125 mcg PO 3XWK #36 tab 05/06/21 09/27/21 Rx cholecalciferol (vitamin D3) 25 1,000 unit PO QAM cap 05/17/21 09/27/21 History mcg (1,000 unit) capsule insulin syringe-needle U-100 0.3 See Rx Instructions .ROUTE 06/28/21 09/27/21 Rx mL 31 gauge x 5/16" .COMPLEX #100 unspecified carvedilol 3.125 mg tablet (Coreg) 3.125 mg PO QAM tab 07/02/21 09/27/21 History potassium gluconate 595 mg (99 mg) 595 mg PO QAM 07/02/21 09/27/21 History tablet bumetanide 1 mg tablet 1 mg PO BID #180 tab 07/12/21 09/27/21 Rx insulin aspar prt-insulin aspart 15 - 30 unit SUBCUT AMPM 07/29/21 09/27/21 History 100 unit/mL (70-30) subcutaneous soln (Novolog Mix 70-30 U-100 Insuln) calcitriol 0.25 mcg capsule 0.25 mcg PO 3XWK #12 cap 08/24/21 09/27/21 Rx (Rocaltrol) pantoprazole 40 mg tablet,delayed 40 mg PO DAILY PRN #90 tab 09/03/21 09/27/21 Rx release (Protonix) trazodone 50 mg tablet 50 mg PO HS PRN #90 tab 09/03/21 09/27/21 Rx garlic 1,000 mg capsule 1,000 mg PO QPM 09/07/21 09/27/21 History levothyroxine 75 mcg tablet 75 mcg PO QAM #90 tab 09/13/21 09/27/21 Rx aspirin 81 mg chewable tablet 81 mg PO QAM 09/15/21 09/27/21 History omega-3 fatty acids 1,000 mg PO DAILY 09/15/21 09/27/21 History ranolazine 500 mg tablet,extended 500 mg PO BID 09/16/21 09/27/21 History release,12 hr (Ranexa) oxycodone 5 mg tablet 5 - 10 mg PO .[id number] PRN #12 tab 09/17/21 09/27/21 Rx ticagrelor 90 mg tablet (Brilinta) 90 mg PO BID #60 tab 09/19/21 09/27/21 Rx apixaban 2.5 mg tablet (Eliquis) 2.5 mg PO BID #60 tab 09/20/21 09/27/21 Rx amiodarone 200 mg tablet (Pacerone) 200 mg PO QPM 09/27/21 09/27/21 History Patient History Medical History Anemia due to chronic kidney disease Aortic stenosis, severe S/p TAVR 10/2019 Atrial flutter On Eliquis Bilateral carotid artery stenosis H/o bilateral CEAs in 2016 Per 07/2021 vascular note- carotid ultrasound from office visit showed patent right CEA with velocities suggesting 50-59% stenosis restenosis Patent left CEA with velocities suggesting 99% restenosis Biventricular ICD (implantable cardioverter-defibrillator) in place (04/30/20) Medtronic implanted 04/30/2020. Capped right ventricular pacing lead Last check 03/22/21 Breast cancer, right Right breast mastectomy 09/17/21 at [facility] CAD (coronary artery disease) F/U DR CUEVA S/p NATY x 1 to Cx in 2018; NATY to ostial LM 01/10/20 Chronic combined systolic and diastolic CHF (congestive heart failure) EF 40-45% per 10/2020 ECHO Chronic kidney disease STAGE IV-F/U DR SALINAS Chronic obstructive pulmonary disease, unspecified Breathing stable Diabetes mellitus, type 2 Glucose fluctuates DVT (deep venous thrombosis) LOWER LEG 2019 GERD (gastroesophageal reflux disease) Well controlled and stable History of CVA (cerebrovascular accident) 09/23/21. numbness and weakness in right arm HLD (hyperlipidemia) HTN (hypertension) Hypothyroidism Insomnia Ischemic cardiomyopathy Left bundle branch block NSTEMI (non-ST elevated myocardial infarction) Most recent 12/2019 (mild per patient) PAD (peripheral artery disease) S/p SOCIAL MEDIA MARKETING MANAGER and stenting of right SFA, and SOCIAL MEDIA MARKETING MANAGER of left SFA and common femoral artery Pulmonary hypertension RVSP 40-45mmHg on 10/2020 ECHO Rheumatoid arthritis No medications Followed with rheum in the past- no recent issues Secondary hyperparathyroidism of renal origin SOB (shortness of breath) on exertion Spondylosis Subclavian artery stenosis Surgical History H/O: section History of appendectomy History of cardiac cath TOTAL 6? STENTS- 2019 and 2019 History of cataract surgery right and left History of cholecystectomy History of colonoscopy History of hysterectomy History of oophorectomy S/P angioplasty (02/03/21) SOCIAL MEDIA MARKETING MANAGER L SFA S/P carotid endarterectomy B/l 2016 S/P coronary artery stent placement (10/2017) NATY to mid LAD S/P coronary artery stent placement (10/2018) NATY prox mid LAD 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) S/P thoracentesis (03/2020) b/l d/t CHF Status post partial mastectomy of right breast 09/17/21 - Done under [facility] with LMA #4. Atraumatic LMA insertion. Magnet placed secondary to pacemaker. Right Breast Partial Mastectomy with [place] [employer] Local[employer], Right Axillary [place] Lymph Node Biopsy(Right) - Hua Acosta, DO Family History Daughter Coronary heart disease Mother Diabetes Family history of hypercholesterolemia Myocardial infarction Hypertension Stroke Brother Colorectal cancer Aunt No problems noted. Father Diabetes Hypertension Other Pacemaker Denies family history of Ovarian cancer Prostate cancer Breast cancer Social History Smoking Status: Never smoker Second Hand Exposure: No; Do You Dip or Chew Tobacco: No; Hx Alcohol Use: No Hx Substance Use: No Preferred Language: Irish Communication Ability: Effective Visual Impairment: Limited Hearing Ability: Use of Hearing Aid Vertical Punch Operator Required: No Beliefs That Will Affect Care: None marital status: / marital status details: passed 2000 Current Living Situation: Alone current occupational status: retired current occupation: How many Children do You have: 2 Other Information That Helps Us Care for You: No Feels Safe at Home: Yes Safety Concerns: Feels Safe At This Time Childhood Exposure to Second-Hand Smoke: Yes caffeine: Yes Dental Care, Regularly: Yes Physical Activity Frequency: Does not Exercise Seatbelt Use: always Sunscreen Use: No Assistive Devices: None Assistive Devices Comment: CNE PRN Review of Systems Review of Systems: All systems reviewed & are unremarkable except as noted in Subjective Physical Exam Constitutional: WD/WN, vitals as above Neck: trachea midline, no thyromegaly Incision clean dry intact without evidence of hematoma formation Respiratory: normal respiratory effort, lungs clear to auscultation Cardiovascular: RRR, no murmur, no edema Gastrointestinal (Abdomen): normal bowel sounds, soft, nontender, no hepatosplenomegaly Musculoskeletal: Extremities: extremities normal to inspection Skin: no rashes, warm and dry Neurologic: Cranial nerves intact. No tongue deviation. No visual field defects. Motor and sensory upper extremities and lower extremities are normal Lymphatic: no cervical lymphadenopathy Results & Data Results & Data ([facility]) Vital Signs (Past 12 Hours) Vital Signs Temp Pulse Pulse Resp BP BP Pulse Ox 09/27/21 13:15 36.2 C L 90 19 85/65 L 120/60 95 09/27/21 13:05 36.2 C L 90 18 82/62 L 122/50 L 96 09/27/21 12:55 90 16 85/59 L 121/49 L 95 09/27/21 12:45 90 22 86/54 L 113/47 L 98 09/27/21 12:35 90 13 86/72 L 127/55 L 98 09/27/21 12:25 36.2 C L 95 H 16 132/53 L 98 09/27/21 06:51 36.4 C L 74 18 104/57 L 99 Critical Care Results & Data Vital Signs (Past 12 Hours) Vital Signs Temp Pulse Pulse Resp BP BP Pulse Ox 09/27/21 13:15 36.2 C L 90 19 85/65 L 120/60 95 09/27/21 13:05 36.2 C L 90 18 82/62 L 122/50 L 96 09/27/21 12:55 90 16 85/59 L 121/49 L 95 09/27/21 12:45 90 22 86/54 L 113/47 L 98 09/27/21 12:35 90 13 86/72 L 127/55 L 98 09/27/21 12:25 36.2 C L 95 H 16 132/53 L 98 09/27/21 06:51 36.4 C L 74 18 104/57 L 99 Lab & Micro Results (Past 24 Hours) No Data to Display Na 137 mmol/L (136-145) 09/27/21 K 4.0 mmol/L (3.5-5.1) 09/27/21 Cl 102 mmol/L (98-107) 09/27/21 CO2 29 mmol/L (21-32) 09/27/21 Anion Gap 6.0 (3-11) 09/27/21 BUN 37 mg/dl (7-18) H 09/27/21 Creatinine 2.06 mg/dl (0.6-1.2) H 09/27/21 Estimated GFR ( Amer) 25.4 ml/min 09/27/21 Estimated GFR (Non-Af Amer) 21.9 ml/min 09/27/21 BUN/Creatinine Ratio 17.8 (10-20) 09/27/21 Glu 132 mg/dl (70-99) H 09/27/21 Ca 9.4 mg/dl (8.5-10.1) 09/27/21 Calcium Level 9.4 mg/dl (8.5-10.1) 09/27/21 06:24 09/27/21 I & O Totals 24 Hours 09/26/21 09/27/21 09/28/21 06:59 06:59 06:59 Intake Total 1600 / 1600 Output Total 400 / 400 Balance 1200 / 1200 Cumulative 08/19/21 09:44 thru 09/27/21 12:25 Intake Total 1600 Output Total 400 Balance 1200 RT Ventilator Mngmt (Last Documented) Ventilator Ordered Settings Respiratory Rate 19 09/27/21 13:15 Ventilator - PT Measurements Respiratory Rate 19 Coding Level of Care Code 39411 Inpt Consult Level 3 Diagnoses Stenosis of left internal carotid artery I65.22 DM II (diabetes mellitus, type II), controlled E11.21; Z79.4 Diabetes mellitus long term care administrator insulin use: with long term care administrator use Diabetes mellitus complication status: with kidney complications Diabetes mellitus complication detail: with nephropathy (1) DM II (diabetes mellitus, type II), controlled Diabetes mellitus long term care administrator insulin use: with long term care administrator use Diabetes mellitus complication status: with kidney complications Diabetes mellitus complication detail: with nephropathy Qualified Code(s): E11.21 - Type 2 diabetes mellitus with diabetic nephropathy; Z79.4 - alf (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
[2021-09-27 14:24] LABS: Basophils # (auto) 0.02 K/uL (0-0.2); Basophils % (auto) 0.2 %; Eosinophils # (auto) 0.04 K/uL (0-0.5); Eosinophils % (auto) 0.4 %; Hemoglobin 11.6 g/dL (12.0-16.0); Immature Granulocytes # (auto) 0.04 K/uL (0.00-0.02); Immature Granulocytes % (auto) 0.4 %; Lymphocytes # (auto) 0.61 K/uL (1.2-3.4); Lymphocytes % (auto) 6.4 %; Mean Corpuscular Hemoglobin 33.6 pg (25-34); Mean Corpuscular Hgb Conc 32.2 g/dL (32-36); Mean Corpuscular Volume 104.3 fL (80-100); Mean Platelet Volume 11.4 fL (7.4-10.4); Monocytes # (auto) 0.08 K/uL (0.11-0.59); Monocytes % (auto) 0.8 %; Neutrophils # (auto) 8.68 K/uL (1.4-6.5); Neutrophils % (auto) 91.8 %; Platelet Count 220 K/uL (130-400); RDW Standard Deviation 49.3 fL (36.4-46.3); Red Blood Count 3.45 M/uL (4.2-5.4); White Blood Count 9.47 K/uL (4.8-10.8)
[2021-09-27] MEDS ORDERED: HYDROmorphone INJ 0.5 MG/0.5 ML SYR IV PRN (14:49)
[2021-09-27] MEDS ORDERED: DIGOXIN 0.125 MG TAB PO SCH (16:00)
[2021-09-27] MEDS: INSULIN ASPART PER UNIT SC SCH ×2 (17:10→21:27)
[2021-09-27] MEDS: INSULIN HUMAN NPH SC SCH (17:11)
[2021-09-27] MEDS ORDERED: MAGNESIUM OXIDE 400 MG TAB PO SCH (21:00)
[2021-09-27] MEDS ORDERED: AMIODARONE 200 MG TAB PO SCH (21:00)
[2021-09-27] MEDS ORDERED: POLYETHYLENE (MIRALAX) 17 GM PACK PO SCH (21:00)
[2021-09-27] MEDS ORDERED: carvediloL 6.25 MG TAB PO SCH (21:00)
[2021-09-27] MEDS ORDERED: NON-FORMULARY MEDICATION (Garlic 1,000 mg capsule) PO SCH (21:00)
[2021-09-27] MEDS: BUMETANIDE 1 MG TAB PO SCH (21:28)
[2021-09-27] MEDS: RANOLAZINE 500 MG ER TAB PO SCH (21:30)
[2021-09-27] MEDS: ceFAZolin 2000MG 2,000 MG/15 ML SYR IV SCH (21:41)
[2021-09-27] MEDS ORDERED: ACETAMINOPHEN 1,000 MG/100 ML VIAL IV STA (21:58)
--- NOTE | 2021-09-27 22:01 | Communication Note ---
Date of Service: September 27, 20211929: Patient assessed at bedside on routine unit rounding. Complaining of LEFT frontal headache at this time. Has been present since post op. Denies any associated blurry vision, double vision, nausea, vomiting, slurred speech, facial droop, numbness/tingling to the extremities, weakness to the extremities. She has received pain Rx and steroids post-op. Exam is otherwise unremarkable. 2144: Notified by nursing staff that the patient is now nauseated and has vomiting. Assessed at bedside again. Neuro exam performed. VITAL SIGNS - Vital signs and nursing notes were reviewed. Remains slightly hypertensive. NEUROLOGIC - Cranial nerves II through XII grossly intact. Sensory intact to light touch throughout. Patellar reflexes +2/4, Achilles reflexes present. Patient able to perform rapid alternating movements appropriately. Negative Romberg and Pronator Drift. PSYCH - A&Ox3 and cooperates fully with examiner. Pt is very pleasant and interacts well with examiner. In discussion with patient, she reports no h/o similar headaches in the past. She describes pressure and a "stabbing" sensation behind her LEFT forehead and eye. She feels as though the pain is making her nauseated. Explained to her that her exam is otherwise unremarkable, but with newness in symptomatology and recent anticoagulation and surgery, will proceed with noncontrast CT of the head/brain for sake of completeness. She does inform me that she had a recent head CT which had found prior h/o strokes. When we discussed medications including Zofran and Acetaminophen, she declines to take PO acetaminophen 2/2 to nausea. She is agreeable to IV acetaminophen. Patient to be mediated with Zofran/acetaminophen and will be taken for CT head/brain. Thankfully, she is without concerning neurological exam findings otherwise. CT Head/brain demonstrates no acute findings otherwise. Patient profided updated. I have personally spent 35 minutes of critical care time in the direct management of this patient. This is a life/limb threatening event. This includes time spent evaluating patient, direct bedside care, chart review, placing orders, interpretation of diagnostic studies, discussion with consultants, patient, and family members, as well as other required patient management activities. This time is exclusive of all separately billable procedures, and teaching time and separate from and in addition to any other critical care service time. Coding Level of Care Code Critical Care ea addt'l 30 min Time Spent (min) 35
[2021-09-28] MEDS: ceFAZolin 2000MG 2,000 MG/15 ML SYR IV SCH (03:58)
[2021-09-28 05:05] LABS: Basophils # (auto) 0.01 K/uL (0-0.2); Basophils % (auto) 0.1 %; Hematocrit (blood only) 34.2 % (37-47); Immature Granulocytes # (auto) 0.03 K/uL (0.00-0.02); Immature Granulocytes % (auto) 0.2 %; Lymphocytes # (auto) 1.34 K/uL (1.2-3.4); Lymphocytes % (auto) 10.9 %; Mean Corpuscular Hemoglobin 33.6 pg (25-34); Mean Corpuscular Hgb Conc 32.2 g/dL (32-36); Mean Corpuscular Volume 104.6 fL (80-100); Mean Platelet Volume 11.3 fL (7.4-10.4); Monocytes # (auto) 0.82 K/uL (0.11-0.59); Monocytes % (auto) 6.7 %; Neutrophils # (auto) 10.07 K/uL (1.4-6.5); Neutrophils % (auto) 82.1 %; Platelet Count 228 K/uL (130-400); RDW Standard Deviation 49.4 fL (36.4-46.3); Red Blood Count 3.27 M/uL (4.2-5.4); White Blood Count 12.27 K/uL (4.8-10.8)
[2021-09-28 05:45] LABS: BUN Creatinine Ratio 18.8 (10-20); Calcium 8.3 mg/dl (8.5-10.1); Creatinine Clr Calc Pharmacy 26.9 ml/min; Est GFR (African American) 29.7 ml/min; Est GFR (Non-African American) 25.6 ml/min; Phosphorus 3.8 mg/dl (2.5-4.9); Potassium 4.9 mmol/L (3.5-5.1)
[2021-09-28 05:51] LABS: Magnesium 2.2 mg/dl (1.8-2.4)
[2021-09-28] MEDS: LACTATED RINGER'S 1,000 ML IV SCH (06:03)
[2021-09-28] MEDS ORDERED: LEVOTHYROXINE SODIUM 75 MCG TABLET PO SCH (06:30)
--- NOTE | 2021-09-28 07:19 | CT Scan Report ---
CT head/brain wo con CLINICAL HISTORY: LEFT Frontal headache Technique: Contiguous axial CT images of the head were acquired from the base of the skull to the armin laurita without intravenous contrast administration. Images were viewed in brain, subdural and [facility]. Automated dose lowering techniques and/or adjustment according to patient size were utilized for this exam. Comparison: Comparison is made to CT head 04/04/2016 Findings: The ventricles, basal cisterns, and cerebral sulci are normal. There is no acute intracranial hemorrh age or evidence of acute territorial infarction. Neither mass effect, shift of the midline structures , nor abnormal extra-axial fluid collections are shown. Imaged portions of the paranasal sinuses and mastoid air cells are clear. The orbits appear normal. There are no acute fractures of the calvaria or scalp swelling. Impression: No acute intracranial hemorrhage, no evidence of acute territorial infarction or other acute intracra nial disease process. ACT 112: Negative or not required by law. Electronically signed by: Gato Nagel M.D. 09/28/2021 7:17 AM
[2021-09-28] MEDS ORDERED: carvediloL 3.125 MG TAB PO SCH (07:30)
[2021-09-28] MEDS: RANOLAZINE 500 MG ER TAB PO SCH (07:34)
[2021-09-28] MEDS: BUMETANIDE 1 MG TAB PO SCH (07:35)
[2021-09-28] MEDS: INSULIN HUMAN NPH SC SCH (07:38)
[2021-09-28] MEDS: INSULIN ASPART PER UNIT SC SCH ×2 (07:49→12:26)
[2021-09-28] MEDS ORDERED: ACETAMINOPHEN 500 MG TAB PO PRN (08:02)
--- NOTE | 2021-09-28 08:17 | Critical Care Progress Note ---
Date of Service September 28, 2021 Assessment & Plan (1) Stenosis of left internal carotid artery: (2) DM II (diabetes mellitus, type II), controlled: Plan: Impression: 81-year-old female with history of peripheral vascular disease status postop day 1 redo of left carotid endarterectomy due to restenosis. She had a mild headache overnight but feels better this morning and her neurological exam is unrevealing. Follow-up CT scan demonstrated no acute intracranial abnormality. Recommendations: 1. Post carotid endarterectomy: Management per vascular surgery. 2. Hypertension: Continue blood pressure control per vascular surgery guidelines. 3. Mild anemia: No indication for transfusion currently. Continue to follow. 4. Severe headache: Query reperfusion. Vascular deciding on whether or not to start seizure prophylaxis. 5. Chronic kidney disease: Creatinine back to baseline today 6. Diabetes: Glycemic control per ICU protocol. 7. DVT and GI prophylaxis per vascular surgery. Disposition per vascular surgery. Her critical care issues appear to have resolved. We will sign off. Feel free to contact us with questions or concerns Admission and Anticipated Discharge Date Admission Date: September 27, 2021 Subjective Patient seen and examined. Discussed with vascular surgery and critical care MIKY from overnight. She is doing well this morning. She has a slight headache on the left side but it is much better than it was last evening. She had a CT scan of the head performed last evening demonstrated no acute intracranial abnormality. Her neurological exam is unchanged. She is slightly hypertensive this morning but is pending administration of her oral medications. No nausea vomiting diarrhea or other abdominal complaints. No chest pain palpitations or shortness of breath. She overall feels well. She is not complaining of any pain at her incision sites. Review of Systems Review of Systems: All systems reviewed & are unremarkable except as noted in Subjective Physical Exam Constitutional: WD/WN, vitals as above Neck: trachea midline, no thyromegaly Respiratory: normal respiratory effort, lungs clear to auscultation Cardiovascular: RRR, no murmur, no edema Gastrointestinal (Abdomen): normal bowel sounds, soft, nontender, no hep atosplenomegaly Musculoskeletal: Extremities: extremities normal to inspection Skin: no rashes, warm and dry Lymphatic: no cervical lymphadenopathy Results & Data Results & Data ([facility]) Vital Signs (Past 12 Hours) Vital Signs Pulse Resp Pulse Ox 09/28/21 07:00 78 16 98 09/28/21 06:45 72 98 09/27/21 22:00 13 93 09/27/21 21:00 65 18 95 Critical Care Results & Data Vital Signs (Past 12 Hours) Vital Signs Pulse Resp Pulse Ox 09/28/21 07:00 78 16 98 09/28/21 06:45 72 98 09/27/21 22:00 13 93 09/27/21 21:00 65 18 95 Lab & Micro Results (Past 24 Hours) RBC 3.27 M/uL (4.2-5.4) L 09/28/21 WBC 12.27 K/uL (4.8-10.8) H 09/28/21 Hgb 11.0 g/dL (12.0-16.0) L 09/28/21 Hct 34.2 % (37-47) L 09/28/21 MCV 104.6 fL (80-100) H 09/28/21 MCH 33.6 pg (25-34) 09/28/21 MCHC 32.2 g/dL (32-36) 09/28/21 RDW Standard Deviation 49.4 fL (36.4-46.3) H 09/28/21 RDW Coefficient of Variation 13.0 % (11.5-14.5) 09/28/21 Plt Count 228 K/uL (130-400) 09/28/21 MPV 11.3 fL (7.4-10.4) H 09/28/21 Neutrophils (%) (Auto) 82.1 % 09/28/21 Lymphocytes (%) (Auto) 10.9 % 09/28/21 Monocytes # (Auto) 0.82 K/uL (0.11-0.59) H 09/28/21 Eosinophils # (Auto) 0.00 K/uL (0-0.5) 09/28/21 Immature Granulocyte % (Auto) 0.2 % 09/28/21 Neutrophils # (Auto) 10.07 K/uL (1.4-6.5) H 09/28/21 Lymphocytes # (Auto) 1.34 K/uL (1.2-3.4) 09/28/21 Monocytes # (Auto) 0.82 K/uL (0.11-0.59) H 09/28/21 Eosinophils # (Auto) 0.00 K/uL (0-0.5) 09/28/21 Basophils # (Auto) 0.01 K/uL (0-0.2) 09/28/21 Immature Granulocyte # (Auto) 0.03 K/uL (0.00-0.02) H 09/28/21 Na 136 mmol/L (136-145) 09/28/21 K 4.9 mmol/L (3.5-5.1) 09/28/21 Cl 106 mmol/L (98-107) 09/28/21 CO2 24 mmol/L (21-32) 09/28/21 Anion Gap 6.0 (3-11) 09/28/21 BUN 34 mg/dl (7-18) H 09/28/21 Creatinine 1.81 mg/dl (0.6-1.2) H 09/28/21 Estimated GFR ( Amer) 29.7 ml/min 09/28/21 Estimated GFR (Non-Af Amer) 25.6 ml/min 09/28/21 BUN/Creatinine Ratio 18.8 (10-20) 09/28/21 Glu 206 mg/dl (70-99) H 09/28/21 Ca 8.3 mg/dl (8.5-10.1) L 09/28/21 Phosphorus Level 3.8 mg/dl (2.5-4.9) 09/28/21 Mg 2.2 mg/dl (1.8-2.4) 09/28/21 04:43 09/28/21 Calcium Level 8.3 mg/dl (8.5-10.1) L 09/28/21 04:43 09/28/21 Diagnostic Findings (Past 24 Hours) Head CT 09/27/21 21:58 CT head/brain wo con CLINICAL HISTORY: LEFT Frontal headache Technique: Contiguous axial CT images of the head were acquired from the base of the skull to the vertex without intravenous contrast administration. Images were viewed in brain, subdural and bone windows. Automated dose lowering techniques and/or adjustment according to patient size were utilized for this exam. Comparison: Comparison is made to CT head 04/04/2016 Findings: The ventricles, basal cisterns, and cerebral sulci are normal. There is no acute intracranial hemorrhage or evidence of acute territorial infarction. Neither mass effect, shift of the midline structures, nor abnormal extra-axial fluid collections are shown. Imaged portions of the paranasal sinuses and mastoid air cells are clear. The orbits appear normal. There are no acute fractures of the calvaria or scalp swelling. Impression: No acute intracranial hemorrhage, no evidence of acute territorial infarction or other acute intracranial disease process. ACT 112: Negative or not required by law. Electronically signed by: Gato Nagel M.D. 09/28/2021 7:17 AM I & O Totals 24 Hours 09/27/21 09/28/21 09/29/21 06:59 06:59 06:59 Intake Total 3974.583 / 3974.583 268 / 268 Output Total 1100 / 1100 Balance 2874.583 / 2874.583 268 / 268 Cumulative 08/19/21 09:44 thru 09/28/21 08:12 Intake Total 4242.583 Output Total 1100 Balance 3142.583 RT Ventilator Mngmt (Last Documented) Ventilator Ordered Settings Respiratory Rate 16 09/28/21 07:00 Ventilator - PT Measurements Respiratory Rate 16 Coding Level of Care Code 41237 Subseq Hosp Care Lvl 2 Diagnoses Stenosis of left internal carotid artery I65.22 DM II (diabetes mellitus, type II), controlled E11.21; Z79.4 Diabetes mellitus residential insulin use: with salvage determiner use Diabetes mellitus complication status: with kidney complications Diabetes mellitus complication detail: with nephropathy (1) DM II (diabetes mellitus, type II), controlled Diabetes mellitus residential insulin use: with salvage determiner use Diabetes mellitus complication status: with kidney complications Diabetes mellitus complication detail: with nephropathy Qualified Code(s): E11.21 - Type 2 diabetes mellitus with diabetic nephropathy; Z79.4 - skilled nursing (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
--- NOTE | 2021-09-28 08:17 | Surgery Progress Note ---
Date of Service September 28, 2021 Assessment & Plan (1) S/P carotid endarterectomy: Plan: Patient doing extremely well after redo left CEA. Will D/C today. Admission and Anticipated Discharge Date Admission Date: September 27, 2021 Subjective Patient with no complaints. She claims her left sided headache is improved from last pm. Controlled with tylenol. Physical Exam Constitutional: WD/WN, vitals as above Neck: trachea midline minimal incisional swelling Respiratory: normal respiratory effort; no respiratory distress Cardiovascular: Rate/Rhythm: regular rate and regular rhythm Gastrointestinal (Abdomen): Inspection/Auscultation: abdomen normal to inspection; abdomen not distended Percussion/Palpation: abdomen soft Musculoskeletal: no cyanosis or clubbing, extremities motor strength 5/5 Skin: + incision (dry and clean) Neurologic: normal touch/pain/proprioception, CN's II-XI intact bilaterally and moves all extremities; no focal motor deficits Speech / Cognition: normal speech Cranial Nerves: tongue midline no problems swallowing. Results & Data ([facility]) Vital Signs (Past 12 Hours) Vital Signs Pulse Resp Pulse Ox 09/28/21 07:00 78 16 98 09/28/21 06:45 72 98 09/27/21 22:00 13 93 09/27/21 21:00 65 18 95
[2021-09-28] MEDS ORDERED: CALCITRIOL 0.25 MCG CAPSULE PO SCH (09:00)
[2021-09-28] MEDS ORDERED: OMEGA-3 (PURIFIED FISH OIL) 1 GM CAP PO SCH (09:00)
[2021-09-28] MEDS ORDERED: FERROUS SULFATE 325 MG TAB PO SCH (09:00)
[2021-09-28] MEDS ORDERED: APIXABAN 2.5 MG TAB PO SCH (09:00)
[2021-09-28] MEDS ORDERED: TOCOPHERYL, DL-ALPHA 400 UNITS 180 MG CAP PO SCH (09:00)
[2021-09-28] MEDS ORDERED: MULTIVITAMIN TAB PO SCH (09:00)
[2021-09-28] MEDS ORDERED: TICAGRELOR 90 MG TAB PO SCH (09:00)
[2021-09-28] MEDS ORDERED: NON-FORMULARY MEDICATION (Potassium Gluconate 595 mg (99 mg) tablet) PO SCH (09:00)
[2021-09-28] MEDS ORDERED: ASPIRIN 81 MG ECTAB PO SCH (09:00)
[2021-09-28] MEDS ORDERED: CHOLECALCIFEROL 1,000 UNITS 25 MCG TAB PO SCH (09:00)
--- NOTE | 2021-09-30 09:04 | Discharge Summary ---
Date of Service September 30, 2021 Admission HPI Per Admitting Provider Mrs. Barry is an elderly female who has previously undergone bilateral carotid endarterectomies back in 2016, and more recently underwent bilateral lower extremity angiography with intervention with UX LEAD and stenting of the right SFA, and UX LEAD of her left SFA and common femoral artery. Patient states that she is feeling better than she has in quite a while. She denies any complaints or concerns related to her legs aside from feeling stiff after she has been sitting for a while. She denies any claudication symptoms, rest pain, nonhealing wounds or ulcers, other new complaints. Patient does state to having severe black floaters develop in her left eye, for which she saw her customer insight analyst who did not feel that it was anything significant at the time. This was about 4 to 6 months ago. She states that her floaters have mostly resolved, but she still has a few. She did have a TIA after her breast surgery leaving her with slight left hand weakness. She denies any symptoms of cerebrovascular insufficiency including amaurosis, extremity weakness numbness or tingling, difficulty speaking or swallowing, facial droop, headache, dizziness, other complaints. Her bilateral lower extremity arterial ultrasound demonstrates occlusion of her mid to distal right SFA with reperfusion via collaterals, 50% stenosis of her popliteal artery and occlusion of her posterior tibial and anterior tibial arteries with a right leg RYLIE of 0.42. Her left leg demonstrates 75% stenosis of her distal left external iliac, 50% stenosis of her SFA 50% stenosis of her popliteal and occlusion of her posterior tibial artery. Her left RYLIE is 0.6. Her carotid ultrasound performed prior to today's demonstrates a patent right carotid endarterectomy site with mildly increased velocities indicating a 50 to 59% restenosis, patent left carotid endarterectomy site with elevated velocities suggesting 99% restenosis, normal antegrade flow in her right vertebral, retrograde flow in the left vertebral and a 60 point differential and brachial systolic pressures with the right being greater than the left due to her subclavian stenosis. In comparison to her previous carotid ultrasound performed 6 months ago, the left carotid restenosis is significantly worse. Admission Exam Per Admitting Provider Constitutional: WD/WN, vitals as above Neck: trachea midline, no thyromegaly Respiratory: normal respiratory effort, lungs clear to auscultation Cardiovascular: RRR, no murmur, no edema Gastrointestinal (Abdomen): normal bowel sounds, soft, nontender, no hepatosplenomegaly Musculoskeletal: no cyanosis or clubbing, extremities motor strength 5/5 Neurologic: CN's II-XI intact bilaterally and moves all extremities Psychiatric: Orientation: alert and oriented x 3 Principal Diagnosis 1. s/p L CEA redo with interposition graft 2. L ICA restenosis with TIA Discharge Exam Constitutional WD/WN, vitals as above Neck trachea midline, no thyromegaly trachea midline Respiratory normal respiratory effort, lungs clear to auscultation normal respiratory effort; no respiratory distress Cardiovascular RRR, no murmur, no edema Rate/Rhythm: regular rate and regular rhythm Gastrointestinal (Abdomen) normal bowel sounds, soft, nontender, no hepatosplenomegaly Inspection/Auscultation: abdomen normal to inspection; abdomen not distended Percussion/Palpation: abdomen soft Musculoskeletal no cyanosis or clubbing, extremities motor strength 5/5 Skin + incision (dry and clean) Neurologic normal touch/pain/proprioception, CN's II-XI intact bilaterally and moves all extremities; no focal motor deficits Speech / Cognition: normal speech Cranial Nerves: tongue midline Psychiatric Orientation: alert and oriented x 3 Discharge Data Allergies Allergy/AdvReac Type Severity Reaction Status Date / Time adhesive Allergy Unknown REDNESS Verified 09/27/21 06:34 AND IRRITATION FROM PAIN PATCH, TAPE latex Allergy Unknown ALLERGIC Verified 09/27/21 06:34 TO LATEX TAPE/RASH/ITCHING morphine Allergy Unknown swelling Verified 09/27/21 06:34 nausea vomiting olmesartan Allergy Unknown UNKNOWN Verified 09/27/21 06:34 aspirin AdvReac Mild GI SYMPTOMS Verified 09/27/21 06:34 ezetimibe AdvReac Mild MUSCLE Verified 09/27/21 06:34 ACHES benzonatate AdvReac Unknown confusion Verified 09/27/21 06:34 [From Tessalon Perles] dulaglutide [From Trulicity] AdvReac Unknown AFFECTS Verified 09/27/21 06:34 MUSCLES exenatide [From Byetta] AdvReac Unknown Diarrhea Verified 09/27/21 06:34 glipizide AdvReac Unknown Diarrhea Verified 09/27/21 06:34 glyburide AdvReac Unknown Diarrhea Verified 09/27/21 06:34 lisinopril AdvReac Unknown LIGHTHEADED Verified 09/27/21 06:34 AND DIZZY losartan AdvReac Unknown dizziness Verified 09/27/21 06:34 metformin AdvReac Unknown Diarrhea Verified 09/27/21 06:34 pioglitazone AdvReac Unknown DIARRHEA Verified 09/27/21 06:34 NAUSEA sitagliptin [From Januvia] AdvReac Unknown Diarrhea Verified 09/27/21 06:34 Rfhmfna-JMZ-EtG Reductase AdvReac Unknown myalgias Verified 09/27/21 06:34 Inhibitor and [Zipoant-Brw-Bxy Reductase weakness Inhibitor] Consultations 09/27/21 07:22 Consult Windmill Technician Routine Procedures Performed Operation Date: 08/24/21 10:50 <No data on this case meets the specified criteria> Operation Date: 09/27/21 07:30 Actual Procedures p Left Carotid Endarterectomy REDO with Interpositioning graft(Left) - Anthony Bateman MD Ordered Studies 09/27/21 21:58 CT head/brain wo con Urgent Hospital Course (1) S/P carotid endarterectomy: Patient doing extremely well after redo left CEA POD #1. She did develop a L sided IRVIN post operatively which resolved with tylenol. Will D/C home today. Total Time Total Time Spent Total Time Spent (In Minutes): 0 Discharge Plan Discharge Items Patient Disposition: Home - Self-Care Reason For Visit: Left Internal Carotid Artery Stenosis Discharge Diagnosis: Restenosis of left internal carotid artery Bathing Comment: may shower in 24 hours Exercise/Sports: Gradually increase as tolerated Non-emergency contact: Surgeon Call non-emergency contact if: your temperature is above 101.5, your wound has increased redness, your wound has increased drainage and your wound pain has increased Follow-up/Referrals: Ebony Alvarenga, [Primary Care Provider] - Diet: Carb Consistent or DM2 and Heart Healthy Addtl Attending Provider Instructions: SPECIAL CARE INSTRUCTIONS: Medications: * Tylenol for pain 500mg every 6 hours as needed Incision Care: * You may shower, but do not rub incision. You may let the warm soapy water run over it. Be sure to dry the incision well after bathing. * Do not shave directly over the incision until it is healed. * DO NOT IMMERSE THE INCISION IN A TUB/POOL/etc. UNTIL HEALED. Restrictions: * Do not drive for at least one week or if you are still taking any narcotic pain medication. * Do not lift anything heavier than a gallon of milk for one week after going h ome. Possible Complications: * Numbness - It is normal to have some numbness around the incision. Numbness can extend beyond the incision to areas of the neck, ear and face. The numbness is due to bruising of nerves during the surgery and will gradually improve over a period of months. * Hoarseness/Difficulty Speaking and Swallowing - The bruising of nerves in the neck can also cause a hoarse voice, difficulty speaking or swallowing. This may improve over time, HOWEVER, if it continues for more than a few days please contact our office ([phone]). * Excessive Swelling - There will be some swelling immediately after surgery which usually resolves within one week. If you notice that the swelling is getting worse, notify your surgeon ([phone]). * Drainage/Bleeding - If there is any drainage or bleeding, it should be a very small amount (less than a teaspoon per day). If you have excessive bleeding or drainage from the incision, call your surgeon ([phone]) right away. ACTIVATION OF EMERGENCY MEDICAL SYSTEM: Call 911, immediately, if you experience any of the following: Warning Signs and Symptoms of Stroke: * Sudden numbness or weakness of the face, arm or leg, especially on one side of the body * Sudden confusion, trouble speaking or understanding * Sudden trouble seeing in one or both eyes * Sudden trouble walking, dizziness, loss of balance or coordination * Sudden severe headache with no cause Do not delay calling 911 if you experience any warning signs or symptoms of a stroke. Delay in seeking medical attention may affect what treatments can be given to you. Risk Factors for Stroke: You can reduce your chances of stroke by working with your medical provider to adopt a healthy lifestyle. Some specific ways to lower your chance of stroke are: * If you are a smoker, now is the time to stop smoking cigarettes * If you are diabetic, improve the control of your blood sugars * Avoid excessive amounts of alcohol * Control high blood pressure * Lose weight if you are overweight * Be sure to lead an active lifestyle * Eat a healthy diet low in salt, cholesterol and fat You should know about other risk factors for stroke that you are unable to control. These include: * Age 55 years or older * Male gender * Certain racial groups: , or / * Family History of Stroke, Mini stroke or Heart Attack * Sickle Cell Disease You will be receiving a call from the Vascular Surgery Nurse after you are discharged. FOLLOW UP VISIT: It is important for you to keep your follow up appointments with your medical provider. Keep any scheduled doctor appointments. Call [phone] to schedule a follow up appointment if one not already scheduled. Pending Studies at Discharge: No Stand-Alone Forms: [facility], Smoking Cessation Medications and DC Order Prescriptions: Continued OneTouch Verio test strips Strip 1 strip miscellaneous TID Qty: 100 RF: 3 digoxin 125 mcg (0.125 mg) tablet 125 mcg PO 3XWK Qty: 36 RF: 1 cholecalciferol (vitamin D3) 25 mcg (1,000 unit) capsule 1,000 unit PO QAM RF: 0 insulin syringe-needle U-100 0.3 mL 31 gauge x 5/16" syringe See Rx Instructions .ROUTE .COMPLEX Qty: 100 RF: 9 bumetanide 1 mg tablet 1 mg PO BID Qty: 180 RF: 3 calcitriol [Rocaltrol] 0.25 mcg capsule 0.25 mcg PO 3XWK Qty: 12 RF: 1 trazodone 50 mg tablet 50 mg PO HS PRN (Reason: insomnia) Qty: 90 RF: 1 pantoprazole [Protonix] 40 mg tablet,delayed release (DR/EC) 40 mg PO DAILY PRN (Reason: Stomach Upset) Qty: 90 RF: 3 levothyroxine 75 mcg tablet 75 mcg PO QAM Qty: 90 RF: 1 Eliquis 2.5 mg tablet 2.5 mg PO BID Qty: 60 RF: 11 magnesium oxide 400 mg magnesium capsule 400 mg PO QPM Qty: 90 RF: 0 albuterol sulfate 90 mcg/actuation HFA aerosol inhaler 2 puff INHALATION Q6H PRN (Reason: Shortness Of Breath Or Wheezing) Qty: 8 RF: 1 ferrous sulfate [Feosol] 325 mg (65 mg iron) tablet 325 mg PO QAM RF: 0 potassium gluconate 595 mg (99 mg) tablet 595 mg PO QAM RF: 0 multivitamin [Multiple Vitamins] tablet 1 tab PO QAM RF: 0 vitamin E 400 unit capsule 400 unit PO QAM RF: 0 polyethylene glycol 3350 [Miralax] 17 gram/dose Powder 17 g PO HS RF: 0 carvedilol [Coreg] 6.25 mg Tablet 6.25 mg PO HS RF: 0 carvedilol [Coreg] 3.125 mg tablet 3.125 mg PO QAM RF: 0 insulin asp prt-insulin aspart [Novolog Mix 70-30 U-100 Insuln] 100 unit/mL (70-30) solution 15 - 30 unit SUBCUT AMPM RF: 0 amiodarone [Pacerone] 200 mg tablet 200 mg PO QPM RF: 0 garlic 1,000 mg capsule 1,000 mg PO QPM RF: 0 aspirin 81 mg Tablet,Chewable 81 mg PO QAM RF: 0 omega-3 fatty acids Capsule 1,000 mg PO DAILY RF: 0 ranolazine [Ranexa] 500 mg tablet extended release 12 hr 500 mg PO BID RF: 0 oxycodone 5 mg tablet 5 - 10 mg PO .[id number]-h4c PRN (Reason: pain, for initial therapy, max 6 tabs per day) Qty: 12 RF: 0 Brilinta 90 mg tablet 90 mg PO BID Qty: 60 RF: 2 No Action ondansetron HCl [Zofran] 4 mg tablet 4 mg PO Q8H PRN (Reason: nausea and vomiting) Qty: 30 RF: 0 Discharge Orders: Discharge Order (Routine); Ordered 09/28/21 Ordered By: Anthony Bateman Admission Data Admit Date/Time: 09/27/21 07:22 Attending Provider: Anthony Bateman Admit Provider: Anthony Bateman Primary Care Provider: Ebony Alvarenga Other Providers: Marcus Alcantara ; Aurelio Easton ; Yemi Olvera ; Dane Whalen Chase B. ; Gregory Bonilla ; Kisha Batxer ; Papito Sultana Other Interventions: Discharge Summary Assessment (RN) Last Done: 09/28/21 17:10
== END 2021-09-28 16:45 | disposition home or self-care (01) | DRG 38 ==
LOC: ASU 05:55 → 1E 07:22

== ENCOUNTER 2021-10-15 18:02 | Inpatient (IN) ==
--- NOTE | 2021-10-15 18:42 | Emergency Department Note ---
History of Present Illness General Chief complaint: Shortness of Breath/Dyspnea Stated complaint: psble blood clot in lung, refr'd by [facility] Time Seen by Provider: 10/15/21 18:21 Source: patient Mode of arrival: ambulatory Limitations: no limitations History of Present Illness This patient is an 81-year-old female who has had dyspnea on exertion for last couple days she said she walked up her steps this evening and felt very short of breath she went to urgent care and they sent her here to rule out a blood clot. She does have a history of DVTs in her legs as well as CHF she is on Eliquis and Brilinta. She also had surgery on her carotid on the left on the done by Dr. Bateman also breast surgery for cancer recently she was off for anticoagulants/antiplatelets briefly but is back on. Denies chest pain. no fever or chills. no lower extremity pain or swelling. No fever or chills she is felt slightly nauseated since the surgery no focal numbness weakness. No fall or trauma. Home Medications Medication Instructions Recorded Confirmed Type magnesium oxide 400 mg PO QPM #90 cap 04/01/19 10/15/21 Rx multivitamin (Multiple Vitamins) 1 tab PO QAM 05/19/19 10/15/21 History albuterol sulfate 90 mcg/actuation 2 puff INHALATION Q6H PRN #8 gm 06/11/19 10/15/21 Rx aerosol inhaler polyethylene glycol 3350 17 17 g PO HS 03/29/20 10/15/21 History gram/dose oral powder (Miralax) vitamin E 400 unit capsule 400 unit PO QAM 03/29/20 10/15/21 History ferrous sulfate 325 mg (65 mg 325 mg PO QAM 10/27/20 10/15/21 History iron) tablet (Feosol) carvedilol 6.25 mg tablet (Coreg) 6.25 mg PO HS 04/02/21 10/15/21 History digoxin 125 mcg (0.125 mg) tablet 125 mcg PO 3XWK #36 tab 05/06/21 10/15/21 Rx cholecalciferol (vitamin D3) 25 1,000 unit PO QAM cap 05/17/21 10/15/21 History mcg (1,000 unit) capsule carvedilol 3.125 mg tablet (Coreg) 3.125 mg PO QAM tab 07/02/21 10/15/21 History potassium gluconate 595 mg (99 mg) 595 mg PO QAM 07/02/21 10/15/21 History tablet bumetanide 1 mg tablet 1 mg PO BID #180 tab 07/12/21 10/15/21 Rx calcitriol 0.25 mcg capsule 0.25 mcg PO 3XWK #12 cap 08/24/21 10/15/21 Rx (Rocaltrol) pantoprazole 40 mg tablet,delayed 40 mg PO DAILY PRN #90 tab 09/03/21 10/15/21 Rx release (Protonix) trazodone 50 mg tablet 50 mg PO HS PRN #90 tab 09/03/21 10/15/21 Rx garlic 1,000 mg capsule 1,000 mg PO QPM 09/07/21 10/15/21 History levothyroxine 75 mcg tablet 75 mcg PO QAM #90 tab 09/13/21 10/15/21 Rx aspirin 81 mg chewable tablet 81 mg PO QAM 09/15/21 10/15/21 History ranolazine 500 mg tablet,extended 500 mg PO BID 09/16/21 10/15/21 History release,12 hr (Ranexa) oxycodone 5 mg tablet 5 - 10 mg PO .[id number] PRN #12 tab 09/17/21 10/15/21 Rx ticagrelor 90 mg tablet (Brilinta) 90 mg PO BID #60 tab 09/19/21 10/15/21 Rx apixaban 2.5 mg tablet (Eliquis) 2.5 mg PO BID #60 tab 09/20/21 10/15/21 Rx amiodarone 200 mg tablet (Pacerone) 200 mg PO QPM 09/27/21 10/15/21 History ondansetron HCl 4 mg tablet 4 mg PO Q8H PRN #30 tab 09/29/21 10/15/21 Rx (Zofran) insulin aspar prt-insulin aspart 15 - 30 unit SUBCUT AMPM #10 ml 10/01/21 10/15/21 Rx 100 unit/mL (70-30) subcutaneous soln (Novolog Mix 70-30 U-100 Insuln) omega-3 fatty acids 1,000 mg 1,000 mg PO DAILY 10/15/21 10/15/21 History capsule Allergies Allergy/AdvReac Type Severity Reaction Status Date / Time adhesive Allergy Intermediate REDNESS Verified 10/15/21 18:57 AND IRRITATION FROM PAIN PATCH, TAPE latex Allergy Intermediate ALLERGIC Verified 10/15/21 18:57 TO LATEX TAPE/RASH/ITCHING morphine Allergy Intermediate swelling Verified 10/15/21 18:57 nausea vomiting olmesartan Allergy Unknown UNKNOWN Verified 10/05/21 09:45 benzonatate AdvReac Intermediate confusion Verified 10/15/21 18:57 [From Tessalon Perles] dulaglutide [From Trulicity] AdvReac Intermediate AFFECTS Verified 10/15/21 18:57 MUSCLES exenatide [From Byetta] AdvReac Intermediate Diarrhea Verified 10/15/21 18:57 ezetimibe AdvReac Intermediate MUSCLE Verified 10/15/21 18:57 ACHES glipizide AdvReac Intermediate Diarrhea Verified 10/15/21 18:57 glyburide AdvReac Intermediate Diarrhea Verified 10/15/21 18:57 lisinopril AdvReac Intermediate LIGHTHEADED Verified 10/15/21 18:57 AND DIZZY losartan AdvReac Intermediate dizziness Verified 10/15/21 18:57 metformin AdvReac Intermediate Diarrhea Verified 10/15/21 18:57 pioglitazone AdvReac Intermediate DIARRHEA Verified 10/15/21 18:57 NAUSEA sitagliptin [From Januvia] AdvReac Intermediate Diarrhea Verified 10/15/21 18:57 Qoiotwq-ZXN-LeG Reductase AdvReac Intermediate myalgias Verified 10/15/21 18:57 Inhibitor and [Xnzvrbj-Ghf-Vue Reductase weakness Inhibitor] aspirin AdvReac Mild GI SYMPTOMS Verified 10/15/21 18:57 Past Med/Surg History Medical History Anemia due to chronic kidney disease Aortic stenosis, severe S/p TAVR 10/2019 Atrial flutter On Eliquis Bilateral carotid artery stenosis H/o bilateral CEAs in 2016 Per 07/2021 vascular note- carotid ultrasound from office visit showed patent right CEA with velocities suggesting 50-59% stenosis restenosis Patent left CEA with velocities suggesting 99% restenosis Biventricular ICD (implantable cardioverter-defibrillator) in place (04/30/20) Medtronic implanted 04/30/2020. Capped right ventricular pacing lead Last check 03/22/21 Breast cancer, right Right breast mastectomy 09/17/21 at [facility] CAD (coronary artery disease) F/U DR CUEVA S/p NATY x 1 to Cx in 2019; NATY to ostial LM 01/10/20 Chronic combined systolic and diastolic CHF (congestive heart failure) EF 40-45% per 10/2020 ECHO Chronic kidney disease STAGE IV-F/U DR SALINAS Chronic obstructive pulmonary disease, unspecified Breathing stable Diabetes mellitus, type 2 Glucose fluctuates DVT (deep venous thrombosis) LOWER LEG 2019 GERD (gastroesophageal reflux disease) Well controlled and stable History of CVA (cerebrovascular accident) 09/23/21. numbness and weakness in right arm HLD (hyperlipidemia) HTN (hypertension) Hypothyroidism Insomnia Ischemic cardiomyopathy Left bundle branch block NSTEMI (non-ST elevated myocardial infarction) Most recent 12/2019 (mild per patient) PAD (peripheral artery disease) S/p [employer] and stenting of right SFA, and [employer] of left SFA and common femoral artery Pulmonary hypertension RVSP 40-45mmHg on 10/2020 ECHO Rheumatoid arthritis No medications Followed with rheum in the past- no recent issues Secondary hyperparathyroidism of renal origin SOB (shortness of breath) on exertion Spondylosis Subclavian artery stenosis Surgical History H/O: section History of appendectomy History of cardiac cath TOTAL 6? STENTS- 2018 and 2019 History of cataract surgery right and left History of cholecystectomy History of colonoscopy History of hysterectomy History of oophorectomy S/P angioplasty (02/03/21) [employer] L SFA S/P carotid endarterectomy B/l 2016 S/P coronary artery stent placement (10/2017) NATY to mid LAD S/P coronary artery stent placement (10/2018) NATY prox mid LAD 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) S/P thoracentesis (03/2020) b/l d/t CHF Status post partial mastectomy of right breast 09/17/21 - Done under [facility] with LMA #4. Atraumatic LMA insertion. Magnet placed secondary to pacemaker. Right Breast Partial Mastectomy with [employer] Localization, Right Axillary [place] Lymph Node Biopsy(Right) - Hua Acosta DO Family History Daughter Coronary heart disease Mother Diabetes Family history of hypercholesterolemia Myocardial infarction Hypertension Stroke Brother Colorectal cancer Aunt No problems noted. Father Diabetes Hypertension Other Pacemaker Denies family history of Ovarian cancer Prostate cancer Breast cancer Social History Smoking Status: Never smoker Second Hand Exposure: No; Hx Alcohol Use: No Hx Substance Use: No Preferred Language: Kinyarwanda Communication Ability: Effective Visual Impairment: Limited Hearing Ability: Use of Hearing Aid Coil Tester Required: No Beliefs That Will Affect Care: None marital status: / marital status details: passed 2000 Current Living Situation: Alone current occupational status: retired current occupation: How many Children do You have: 2 Feels Safe at Home: Yes Childhood Exposure to Second-Hand Smoke: Yes caffeine: Yes Dental Care, Regularly: Yes Physical Activity Frequency: Does not Exercise Seatbelt Use: always Sunscreen Use: No Assistive Devices: Cane Review of Systems A total of 10 systems reviewed and were otherwise negative Physical Exam Vital Signs Vital Signs - 24 hr 10/15/21 18:16 10/15/21 18:55 10/15/21 18:56 Temperature 36.7 C Temperature Source Skin Pulse Rate 97 H Pulse Rate [Left] Pulse Rhythm [Left] Pulse Strength [Left] Respiratory Rate 20 Respiratory Effort / Characteristics Non-Labored Spontaneous Non-Labored Respiratory Depth Normal Normal Respiratory Pattern Regular Regular Blood Pressure 150/85 H Blood Pressure [Right Arm] Blood Pressure Mean 106 Blood Pressure Mean [Right Arm] Blood Pressure Position [Right Arm] Pulse Oximetry 93 94 Oxygen Delivery Method Room Air Room Air Sepsis Recent Fever Within 48 Hours No Sepsis New/Unexplained Change in Mental Status N/A Sepsis Action Taken by Nursing No Action Required 10/15/21 18:58 10/15/21 20:15 Temperature Temperature Source Pulse Rate Pulse Rate [Left] 96 H 88 Pulse Rhythm [Left] Regular Regular Pulse Strength [Left] Normal Normal Respiratory Rate 20 20 Respiratory Effort / Characteristics Non-Labored Non-Labored Respiratory Depth Normal Normal Respiratory Pattern Blood Pressure Blood Pressure [Right Arm] 155/93 H 174/91 H Blood Pressure Mean Blood Pressure Mean [Right Arm] 113 118 Blood Pressure Position [Right Arm] Lying Sitting Pulse Oximetry 94 93 Oxygen Delivery Method Room Air Room Air Sepsis Recent Fever Within 48 Hours Sepsis New/Unexplained Change in Mental Status Sepsis Action Taken by Nursing General: Well developed well nourished not ill-appearing older female who appears in no acute distress, breathing comfortably on room air. Normal speech HEENT: Normal cephalic atraumatic. Pupils are equal round and reactive to light . Extraocular movements are intact. Oropharynx is pink with moist mucous membranes. No swelling of the mouth lips or tongue. Neck: Supple with a midline trachea. No meningeal signs or stiffness, no JVD or bruits. No Stridor. No healing's incision site on the left without redness or drainage Chest: Clear to auscultation bilaterally. No wheezes or rhonchi. No increased work of breathing. Heart: Regular rate and rhythm without murmurs or gallops. Abdomen: Soft nontender, nondistended without rebound guarding or rigidity. Extremities: No cyanosis clubbing or edema. No calf tenderness or assymetry Spine/Back. Non tender to palpation. No CVA tenderness Skin: Good turgor without rashes. Neurologic exam: Cranial nerves two through 12 are intact. Motor and sensation are intact and symmetrical throughout. Course Administered Medications Discontinued Medications Bumetanide 1 mg/ Syringe 4 mls @ 4 mls/min IV ONE ONE Stop: 10/15/21 20:46 Last Admin: 10/15/21 21:57 Dose: 4 mls/min Documented by: [id number] Medical Decision Making Differential Diagnosis Pulmonary embolism, CHF, acute coronary syndrome, Covid, pneumonia, pneumothorax, pleural effusion, electrolyte or metabolic abnormality Medical Records Attestation: I reviewed the patient's medical records. Home Medications Current Medication List: was personally reviewed by me Laboratory Data Attestation: I reviewed the patient's lab results. Result diagrams: 10/15/21 18:50 10/15/21 18:50 Lab Results 10/15/21 10/15/21 10/15/21 Range/Units 18:50 18:50 18:50 WBC 10.69 (4.8-10.8) K/uL RBC 3.45 L (4.2-5.4) M/uL Hgb 11.7 L (12.0-16.0) g/dL Hct 37.1 (37-47) % MCV 107.5 H (80-100) fL MCH 33.9 (25-34) pg MCHC 31.5 L (32-36) g/dL RDW Std Deviation 53.5 H (36.4-46.3) fL RDW Coeff of Manuela 13.6 (11.5-14.5) % Plt Count 324 (130-400) K/uL MPV 10.3 (7.4-10.4) fL Immature Gran % (Auto) 0.2 % Neut % (Auto) 64.7 % Lymph % (Auto) 23.3 % [place] % (Auto) 8.0 % Eos % (Auto) 3.6 % Baso % (Auto) 0.2 % Neut # (Auto) 6.92 H (1.4-6.5) K/uL Lymph # (Auto) 2.49 (1.2-3.4) K/uL [place] # (Auto) 0.86 H (0.11-0.59) K/uL Eos # (Auto) 0.38 (0-0.5) K/uL Baso # (Auto) 0.02 (0-0.2) K/uL Immature Gran # (Auto) 0.02 (0.00-0.02) K/uL PT 10.3 (9.0-12.0) Seconds INR 1.0 (0.9-1.1) APTT 29.3 (21.0-31.0) Seconds PTT Ratio 1.1 Sodium 134 L (136-145) mmol/L Potassium 4.2 (3.5-5.1) mmol/L Chloride 97 L (98-107) mmol/L Carbon Dioxide 31 (21-32) mmol/L Anion Gap 6.0 (3-11) BUN 35 H (7-18) mg/dl Creatinine 2.21 H (0.6-1.2) mg/dl Est Cr Clr Drug Dosing 22.0 ml/min Est GFR ( Amer) 23.3 ml/min Est GFR (Non-Af Amer) 20.1 ml/min BUN/Creatinine Ratio 15.9 (10-20) Glucose 201 H (70-99) mg/dl Calcium 9.3 (8.5-10.1) mg/dl Total Bilirubin 0.4 (0.2-1) mg/dl AST 19 (15-37) U/L ALT 27 (12-78) Alkaline Phosphatase 165 H (45-117) U/L Troponin I < 0.015 (0-0.045) ng/ml NT-Pro-B Natriuret Pep 5971 H (0-1800) pg/ml Total Protein 7.8 (6.4-8.2) gm/dl Albumin 3.3 L (3.4-5.0) gm/dl Globulin 4.5 H (2.5-4.0) gm/dl Albumin/Globulin Ratio 0.7 L (0.9-2) Lipase 85 (73-393) U/L Digoxin (0.8-2.0) ng/ml SARS-CoV-2, RNA, NAAT (NEGATIVE) 10/15/21 10/15/21 Range/Units 18:50 18:50 WBC (4.8-10.8) K/uL RBC (4.2-5.4) M/uL Hgb (12.0-16.0) g/dL Hct (37-47) % MCV (80-100) fL MCH (25-34) pg MCHC (32-36) g/dL RDW Std Deviation (36.4-46.3) fL RDW Coeff of Manuela (11.5-14.5) % Plt Count (130-400) K/uL MPV (7.4-10.4) fL Immature Gran % (Auto) % Neut % (Auto) % Lymph % (Auto) % [place] % (Auto) % Eos % (Auto) % Baso % (Auto) % Neut # (Auto) (1.4-6.5) K/uL Lymph # (Auto) (1.2-3.4) K/uL [place] # (Auto) (0.11-0.59) K/uL Eos # (Auto) (0-0.5) K/uL Baso # (Auto) (0-0.2) K/uL Immature Gran # (Auto) (0.00-0.02) K/uL PT (9.0-12.0) Seconds INR (0.9-1.1) APTT (21.0-31.0) Seconds PTT Ratio Sodium (136-145) mmol/L Potassium (3.5-5.1) mmol/L Chloride (98-107) mmol/L Carbon Dioxide (21-32) mmol/L Anion Gap (3-11) BUN (7-18) mg/dl Creatinine (0.6-1.2) mg/dl Est Cr Clr Drug Dosing ml/min Est GFR ( Amer) ml/min Est GFR (Non-Af Amer) ml/min BUN/Creatinine Ratio (10-20) Glucose (70-99) mg/dl Calcium (8.5-10.1) mg/dl Total Bilirubin (0.2-1) mg/dl AST (15-37) U/L ALT (12-78) Alkaline Phosphatase (45-117) U/L Troponin I (0-0.045) ng/ml NT-Pro-B Natriuret Pep (0-1800) pg/ml Total Protein (6.4-8.2) gm/dl Albumin (3.4-5.0) gm/dl Globulin (2.5-4.0) gm/dl Albumin/Globulin Ratio (0.9-2) Lipase (73-393) U/L Digoxin 1.3 (0.8-2.0) ng/ml SARS-CoV-2, RNA, NAAT NEGATIVE (NEGATIVE) Imaging Data Attestation: I personally reviewed and interpreted this imaging study as follows: My Impression: Chest x-raypacemaker in place. Cardiomegaly with some congestive changes. There is some haziness in the right greater than left base likely consistent with with pleural effusions Radiologist's Impression: Chest X-Ray 10/15/21 18:31 SINGLE VIEW CHEST CLINICAL HISTORY: Atypical chest pain FINDINGS: An AP, portable, upright chest radiograph is compared to study dated 08/05/2021. Correlation is made with chest CT dated 10/17/2018. A cardiac AICD is unchanged in position and partially obscures the left lower chest. There is evidence of previous cardiac valve surgery. The heart is enlarged noting atherosclerotic calcification of the thoracic aorta. There is pulmonary vascular congestion. There are right larger than left pleural effusions with bibasilar consolidation. No pneumothorax is seen. The skeletal structures are osteopenic. The bony thorax is grossly intact. IMPRESSION: 1. Cardiomegaly and AICD with pulmonary vascular congestion. 2. Right larger left pleural effusions with bibasilar consolidation ACT 112: Negative or not required by law. Electronically signed by: Marcus East M.D. 10/15/2021 7:02 PM Venous Doppler Study 10/15/21 19:35 ULTRASOUND BILATERAL LOWER EXTREMITY VENOUS CLINICAL HISTORY: Dyspnea. Clinical concern for deep venous thrombosis. COMPARISON STUDY: Bilateral lower extremity venous ultrasound dated 05/08/2018. TECHNIQUE: Real-time, grayscale, and color Doppler sonography of the deep veins of the right and left lower extremity was performed from the inguinal crease to the calf. Compression and augmentation were utilized. FINDINGS: There is no sonographic evidence of deep venous thrombosis identified in the right or left lower extremity. The common femoral, superficial femoral, and popliteal veins are patent and normally compressible bilaterally. The greater saphenous vein and the profunda femoris vein at the junction with the common femoral vein are clear in both legs. The visualized calf veins are patent bilaterally. IMPRESSION: There is no sonographic evidence of deep venous thrombosis identified in the right or left lower extremity. ACT 112: Negative or not required by law. Electronically signed by: Marcus East M.D. 10/15/2021 9:57 PM ECG Data Attestation: I personally reviewed and interpreted this ECG as follows: Indication: + SOB/dyspnea Rate (beats per minute): 98 Rhythm: + other (Atrial paced rhythm) ECG [place]: + Normal ECG ST segments: + Nonspecific ST abnormalities ECG Findings: no PACs or no PVCs Comparison ECG Date: from (09/18/21) Change: the following changes noted (Atrial paced rhythm has replaced biventricular paced rhythm) MDM Narrative This patient comes in as described above she has had some dyspnea on exertion. Based on her history there is concern for PE or CHF among other potential etiologies also did Covid swab her. IV access was established. EKG and multiple blood testing was obtained. Chest x-ray was obtained and shows findings consistent with pleural effusions and CHF. Her EKG does show a paced rhythm. Troponin is not elevated. Her creatinine is elevated compared to baseline at 2.2. Given this I do not think we should do a CTA of her chest but did order ultrasound to further evaluate for DVT/PE. I think her findings are more likely consistent with CHF. I also added a BNP. I do think she needs to be admitted for further treatment and evaluation. She may ultimately do a VQ scan or CTA if her kidney function improved as well. I have consulted Dr. Wilkes and the [facility] team for further evaluation. Her BNP is elevated which further supports CHF. Her ultrasounds of her legs were negative for DVT which makes PE more unlikely as well. Continuous cardiac monitoring: Orders placed in EMR for continuous compliance monitor. Upon my interpretation the patient was noted to be a paced rhythm with a rate of 85 Impression & Plan CHF (congestive heart failure), CKD (chronic kidney disease) stage 4, GFR 15-29 ml/min, Pleural effusion, SOB (shortness of breath), Pacemaker, Lab test negative for COVID-19 virus Discharge Plan Visit Data Chief Complaint: Shortness of Breath/Dyspnea Stated Complaint: psble blood clot in lung, refr'd by [facility] ED Provider: Aurelio Reddy Discharge Problem: CHF (congestive heart failure), CKD (chronic kidney disease) stage 4, GFR 15-29 ml/min, Pleural effusion, SOB (shortness of breath), Pacemaker, Lab test negative for COVID-19 virus Discharge Instructions Interventions: ED Discharge Assessment Last Done: 10/15/21 23:00 Discharge Problem: CHF (congestive heart failure) Qualifiers: Heart failure type: unspecified Heart failure chronicity: acute on chronic Qualified Code(s): I50.9 - Heart failure, unspecified
[2021-10-15 19:01] LABS: Basophils # (auto) 0.02 K/uL (0-0.2); Basophils % (auto) 0.2 %; Eosinophils # (auto) 0.38 K/uL (0-0.5); Eosinophils % (auto) 3.6 %; Hematocrit (blood only) 37.1 % (37-47); Hemoglobin 11.7 g/dL (12.0-16.0); Immature Granulocytes # (auto) 0.02 K/uL (0.00-0.02); Immature Granulocytes % (auto) 0.2 %; Lymphocytes # (auto) 2.49 K/uL (1.2-3.4); Lymphocytes % (auto) 23.3 %; Mean Corpuscular Hemoglobin 33.9 pg (25-34); Mean Corpuscular Hgb Conc 31.5 g/dL (32-36); Mean Corpuscular Volume 107.5 fL (80-100); Mean Platelet Volume 10.3 fL (7.4-10.4); Monocytes # (auto) 0.86 K/uL (0.11-0.59); Neutrophils # (auto) 6.92 K/uL (1.4-6.5); Neutrophils % (auto) 64.7 %; Platelet Count 324 K/uL (130-400); RDW Coefficient of Variation 13.6 % (11.5-14.5); RDW Standard Deviation 53.5 fL (36.4-46.3); Red Blood Count 3.45 M/uL (4.2-5.4); White Blood Count 10.69 K/uL (4.8-10.8)
--- NOTE | 2021-10-15 19:04 | XRay Report ---
SINGLE VIEW CHEST CLINICAL HISTORY: Atypical chest pain FINDINGS: An AP, portable, upright chest radiograph is compared to study dated 08/05/2021. Correlatio n is made with chest CT dated 10/17/2018. A cardiac AICD is unchanged in position and partially obscure s the left lower chest. There is evidence of previous cardiac valve surgery. The heart is enlarged no ting atherosclerotic calcification of the thoracic aorta. There is pulmonary vascular congestion. The re are right larger than left pleural effusions with bibasilar consolidation. No pneumothorax is seen . The skeletal structures are osteopenic. The bony thorax is grossly intact. IMPRESSION: 1. Cardiomegaly and AICD with pulmonary vascular congestion. 2. Right larger left pleural effusions with bibasilar consolidation ACT 112: Negative or not required by law. Electronically signed by: Marcus East M.D. 10/15/2021 7:02 PM
[2021-10-15 19:13] LABS: Partial Thromboplastin Ratio 1.1; Partial Thromboplastin Time 29.3 Seconds (21.0-31.0); Prothrombin Time 10.3 Seconds (9.0-12.0)
[2021-10-15 19:18] LABS: Alanine Aminotransferase 27 (12-78); Albumin Level 3.3 gm/dl (3.4-5.0); Aspartate Aminotransferase 19 U/L (15-37); BUN Creatinine Ratio 15.9 (10-20); Blood Urea Nitrogen 35 mg/dl (7-18); Calcium 9.3 mg/dl (8.5-10.1); Carbon Dioxide 31 mmol/L (21-32); Chloride 97 mmol/L (98-107); Est GFR (African American) 23.3 ml/min; Est GFR (Non-African American) 20.1 ml/min; Glucose 201 mg/dl (70-99); Lipase 85 U/L (73-393); Potassium 4.2 mmol/L (3.5-5.1); Sodium 134 mmol/L (136-145)
[2021-10-15 19:23] LABS: Albumin Globulin Ratio 0.7 (0.9-2); Alkaline Phosphatase 165 U/L (45-117); Bilirubin,Total 0.4 mg/dl (0.2-1); Globulin 4.5 gm/dl (2.5-4.0); Total Protein 7.8 gm/dl (6.4-8.2); Troponin I < 0.015 ng/ml (0-0.045)
[2021-10-15 20:08] LABS: NT Pro B Type Natriuretic Pept 5971 pg/ml (0-1800)
--- NOTE | 2021-10-15 20:32 | History & Physical Report ---
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 Suspected CHF exacerbation on chronic Combined Systolic and Diastolic CHF -With crackles on exam, elevated BNP 5971, Pulmonary congestion on CXR -Will give 1mg IV Bumex at this time and monitor output, may require increase as renal function at this time mildly reduced from baseline with Cr 2.21 (base 1.8- 2) -Place fregoso catheter for I/O's -Daily Weights -Repeat CXR in AM -Fluid restrict 1800ml and HH Low Na diet -Resume home Bumex 1mg BID PO in AM, monitor for need for further IV bumex -Echo 10/22/20 with EF 40-45%, repeat in AM -Not currently on HERMELINDO/ARBs due to CKD -Continue Carvedilol 3.125mg qAM and 6.25mg qHS -S/P Biventricular device - notes she has not received any shocks to this date -With concern for SOB secondary to PE -Venous dopplers pending -Consider V/Q scan if no improvement with diuresis as patient's renal function is reduced R and L Pleural Effusions -R > L pleural effusion noted on CXR -Patient notes history of requiring Thoracentesis -At this time do not feel that the effusion is the main cause of her SOB on exertion and believe it is secondary to CHF exacerbation -Will diurese as above, if no improvement consider Pulmonology consult for tap -Repeat CXR in AM Hx Atrial Flutter/Fibrillation, Hx DVT -Continue Amiodarone -Continue Digoxin -Continue Carvedilol -Continue Eliquis 2.5mg BID -May have to consider treatment with Lovenox as patient has current hx of breast cancer, though with renal function at this time reduced, will continue on home Eliquis S/P L Internal Carotid Endarterectomy -Redone on 09/27/21 -Continue Brilinta -Continue Eliquis 2.5mg BID -Hold ASA as patient had not tolerated and has been holding on her own since 09/30/21 CAD -s/p NATY to mid LAD 10/2017 and NATY prox to mid LAD 10/17/2018 circumflex PCI 09/2019, mid circumflex 05/2019, ostial circumflex 12/2019 -Continue Eliquis 2.5mg BID -ASA on hold as above due to intolerance (GI upset), patient on Brilinta daily -Continue home Ranexa 500mg PO BID R breast Invasive Mucinous Carcinoma -S/P partial mastectomy 09/17/21 -Has follow up with Heme-Onc mid October 2021 for discussion of radiation treatment Hypothyroidism -Continue home Levothyroxine -TSH in AM GERD -Continue home protonix -Will increase to daily instead of PRN for GI bleed prophylaxis DM2 -SSI and Basal bolus Dispo: Med/Surg Telemetry FEN: HH, Low Na diet, fluid restrict 1800ml DVT: Eliquis 2.5mg BID (may consider Lovenox if renal function improves) Code: DNR/DNI, per patient's Living Will as well she WOULD NOT want Dialysis (2) CKD (chronic kidney disease) stage 4, GFR 15-29 ml/min: (3) Pleural effusion: (4) Chronic combined systolic and diastolic CHF (congestive heart failure): (5) Breast cancer, right: History of Present Illness Chief Complaint: SOB on Exertion Primary Care Provider: Ebony Alvarenga DO Patient is a pleasant, medically complex, 81F with PMHx Aortic stenosis s/p TAVR 2019, Atrial Flutter, Carotid Artery stenosis s/p endarterectomy b/l, s/p ICD placement, Breast cancer, CAD s/p multiple stents, 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 Patient of note had recent R breast partial mastectomy on 09/17/21 and a L carotid endarterectomy on 09/27/21 at which times her ASA, Eliquis, and Brilinta were held for 4 days prior and 3 days prior respectively. Some concern was noted for possible DVT/PE due to patient's history, current cancer status, and recent holding of her blood thinners. Patient notes that since her surgery on 09/27 she has had some SOB with exertion at baseline, though has felt that it acutely worsened around the holidays 6 days ago and then worsened again 3 days ago. She notes that she did have some ham around [place] and that her diet has not been as "good" as it normally would be. She did take an extra dose of Bumex as she had gained 3 lbs after and noted reduction of 2 lbs after the following day. She notes that 3 days ago as her SOB on exertion was worsening she took an extra dose of Bumex then as well, but felt she did not urinate as much as she normally would. She has continued her regular diuretic regiment otherwise the past 2 days with minimal improvement in her SOB. Currently patient notes that at rest she feels well and not short of breath, though even getting out of bed to use the bathroom makes her feel as though she can't catch her breath. She denies any fever, chills, chest pain, chest pressure, abdominal pain, headache, dysuria, NVD. 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%, COPD, DM2, DVT, GERD, CVA, HLD, HTN, Peripheral Artery Disease, Pulmonary Hypertension, Rheumatoid Arthritis Surg Hx: Appendectomy, Section, Hysterectomy with oophorectomy, B/L Cataract, Cholecystectomy, Angioplasty RLE, TAVER, R breast partial mastectomy, B/L Carotid endarterectomy Soc Hx: Denies tobacco, alcohol, illicit drug use Allergies Allergy/AdvReac Type Severity Reaction Status Date / Time adhesive Allergy Intermediate REDNESS Verified 10/15/21 18:57 AND IRRITATION FROM PAIN PATCH, TAPE latex Allergy Intermediate ALLERGIC Verified 10/15/21 18:57 TO LATEX TAPE/RASH/ITCHING morphine Allergy Intermediate swelling Verified 10/15/21 18:57 nausea vomiting olmesartan Allergy Unknown UNKNOWN Verified 10/05/21 09:45 benzonatate AdvReac Intermediate confusion Verified 10/15/21 18:57 [From Tessalon Perles] dulaglutide [From Trulicity] AdvReac Intermediate AFFECTS Verified 10/15/21 18:57 MUSCLES exenatide [From Byetta] AdvReac Intermediate Diarrhea Verified 10/15/21 18:57 ezetimibe AdvReac Intermediate MUSCLE Verified 10/15/21 18:57 ACHES glipizide AdvReac Intermediate Diarrhea Verified 10/15/21 18:57 glyburide AdvReac Intermediate Diarrhea Verified 10/15/21 18:57 lisinopril AdvReac Intermediate LIGHTHEADED Verified 10/15/21 18:57 AND DIZZY losartan AdvReac Intermediate dizziness Verified 10/15/21 18:57 metformin AdvReac Intermediate Diarrhea Verified 10/15/21 18:57 pioglitazone AdvReac Intermediate DIARRHEA Verified 10/15/21 18:57 NAUSEA sitagliptin [From Januvia] AdvReac Intermediate Diarrhea Verified 10/15/21 18:57 Lnlriun-FBR-YaA Reductase AdvReac Intermediate myalgias Verified 10/15/21 18:57 Inhibitor and [Fqwdftv-Hxc-Qnb Reductase weakness Inhibitor] aspirin AdvReac Mild GI SYMPTOMS Verified 10/15/21 18:57 Home Medications Medication Instructions Recorded Confirmed Type magnesium oxide 400 mg PO QPM #90 cap 04/01/19 10/15/21 Rx multivitamin (Multiple Vitamins) 1 tab PO QAM 05/19/19 10/15/21 History albuterol sulfate 90 mcg/actuation 2 puff INHALATION Q6H PRN #8 gm 06/11/19 10/15/21 Rx aerosol inhaler polyethylene glycol 3350 17 17 g PO HS 03/29/20 10/15/21 History gram/dose oral powder (Miralax) vitamin E 400 unit capsule 400 unit PO QAM 03/29/20 10/15/21 History ferrous sulfate 325 mg (65 mg 325 mg PO QAM 10/27/20 10/15/21 History iron) tablet (Feosol) carvedilol 6.25 mg tablet (Coreg) 6.25 mg PO HS 04/02/21 10/15/21 History digoxin 125 mcg (0.125 mg) tablet 125 mcg PO 3XWK #36 tab 05/06/21 10/15/21 Rx cholecalciferol (vitamin D3) 25 1,000 unit PO QAM cap 05/17/21 10/15/21 History mcg (1,000 unit) capsule carvedilol 3.125 mg tablet (Coreg) 3.125 mg PO QAM tab 07/02/21 10/15/21 History potassium gluconate 595 mg (99 mg) 595 mg PO QAM 07/02/21 10/15/21 History tablet bumetanide 1 mg tablet 1 mg PO BID #180 tab 07/12/21 10/15/21 Rx calcitriol 0.25 mcg capsule 0.25 mcg PO 3XWK #12 cap 08/24/21 10/15/21 Rx (Rocaltrol) pantoprazole 40 mg tablet,delayed 40 mg PO DAILY PRN #90 tab 09/03/21 10/15/21 Rx release (Protonix) trazodone 50 mg tablet 50 mg PO HS PRN #90 tab 09/03/21 10/15/21 Rx garlic 1,000 mg capsule 1,000 mg PO QPM 09/07/21 10/15/21 History levothyroxine 75 mcg tablet 75 mcg PO QAM #90 tab 09/13/21 10/15/21 Rx aspirin 81 mg chewable tablet 81 mg PO QAM 09/15/21 10/15/21 History ranolazine 500 mg tablet,extended 500 mg PO BID 09/16/21 10/15/21 History release,12 hr (Ranexa) oxycodone 5 mg tablet 5 - 10 mg PO .[id number] PRN #12 tab 09/17/21 10/15/21 Rx ticagrelor 90 mg tablet (Brilinta) 90 mg PO BID #60 tab 09/19/21 10/15/21 Rx apixaban 2.5 mg tablet (Eliquis) 2.5 mg PO BID #60 tab 09/20/21 10/15/21 Rx amiodarone 200 mg tablet (Pacerone) 200 mg PO QPM 09/27/21 10/15/21 History ondansetron HCl 4 mg tablet 4 mg PO Q8H PRN #30 tab 09/29/21 10/15/21 Rx (Zofran) insulin aspar prt-insulin aspart 15 - 30 unit SUBCUT AMPM #10 ml 10/01/21 10/15/21 Rx 100 unit/mL (70-30) subcutaneous soln (Novolog Mix 70-30 U-100 Insuln) omega-3 fatty acids 1,000 mg 1,000 mg PO DAILY 10/15/21 10/15/21 History capsule Past Med/Surg History Medical History Anemia due to chronic kidney disease Aortic stenosis, severe S/p TAVR 10/2019 Atrial flutter On Eliquis Bilateral carotid artery stenosis H/o bilateral CEAs in 2016 Per 07/2021 vascular note- carotid ultrasound from office visit showed patent right CEA with velocities suggesting 50-59% stenosis restenosis Patent left CEA with velocities suggesting 99% restenosis Biventricular ICD (implantable cardioverter-defibrillator) in place (04/30/20) Med[employer] implanted 04/30/2020. Capped right ventricular pacing lead Last check 03/22/21 Breast cancer, right Right breast mastectomy 09/17/21 at [facility] CAD (coronary artery disease) F/U DR CUEVA S/p NATY x 1 to Cx in 2018; NATY to ostial LM 01/10/20 Chronic combined systolic and diastolic CHF (congestive heart failure) EF 40-45% per 10/2020 ECHO Chronic kidney disease STAGE IV-F/U DR SALINAS Chronic obstructive pulmonary disease, unspecified Breathing stable Diabetes mellitus, type 2 Glucose fluctuates DVT (deep venous thrombosis) LOWER LEG 2019 GERD (gastroesophageal reflux disease) Well controlled and stable History of CVA (cerebrovascular accident) 09/23/21. numbness and weakness in right arm HLD (hyperlipidemia) HTN (hypertension) Hypothyroidism Insomnia Ischemic cardiomyopathy Left bundle branch block NSTEMI (non-ST elevated myocardial infarction) Most recent 12/2019 (mild per patient) PAD (peripheral artery disease) S/p INTELLIGENCE SPECIALIST and stenting of right SFA, and INTELLIGENCE SPECIALIST of left SFA and common femoral artery Pulmonary hypertension RVSP 40-45mmHg on 10/2020 ECHO Rheumatoid arthritis No medications Followed with rheum in the past- no recent issues Secondary hyperparathyroidism of renal origin SOB (shortness of breath) on exertion Spondylosis Subclavian artery stenosis Surgical History H/O: section History of appendectomy History of cardiac cath TOTAL 6? STENTS- 2018 and 2019 History of cataract surgery right and left History of cholecystectomy History of colonoscopy History of hysterectomy History of oophorectomy S/P angioplasty (04/21/21) INTELLIGENCE SPECIALIST L SFA S/P carotid endarterectomy B/l 2016 S/P coronary artery stent placement (10/2017) NATY to mid LAD S/P coronary artery stent placement (10/2018) NATY prox mid LAD 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) S/P thoracentesis (03/2020) b/l d/t CHF Status post partial mastectomy of right breast 09/17/21 - Done under [facility] with LMA #4. Atraumatic LMA insertion. Magnet placed secondary to pacemaker. Right Breast Partial Mastectomy with [employer] Supervisor Localization, Right Axillary [place] Lymph Node Biopsy(Right) - Hua Acosta DO Family History Daughter Coronary heart disease Mother Diabetes Family history of hypercholesterolemia Myocardial infarction Hypertension Stroke Brother Colorectal cancer Aunt No problems noted. Father Diabetes Hypertension Other Pacemaker Denies family history of Ovarian cancer Prostate cancer Breast cancer Social History Smoking Status: Never smoker Second Hand Exposure: No; Hx Alcohol Use: No Hx Substance Use: No Preferred Language: Persian Communication Ability: Effective Visual Impairment: Limited Hearing Ability: Use of Hearing Aid Account General Manager Required: No Beliefs That Will Affect Care: None marital status: / marital status details: passed 2000 Current Living Situation: Alone current occupational status: retired current occupation: How many Children do You have: 2 Other Information That Helps Us Care for You: No Feels Safe at Home: Yes Safety Concerns: Feels Safe At This Time Childhood Exposure to Second-Hand Smoke: Yes caffeine: Yes Dental Care, Regularly: Yes Physical Activity Frequency: Does not Exercise Seatbelt Use: always Sunscreen Use: No Assistive Devices: Oxygen - Continuous Review of Systems Review of Systems: All systems reviewed & are unremarkable except as noted in Subjective Physical Exam Constitutional: well developed, well nourished and cooperative; no acute distress Eyes: PERRL, conjunctivae normal, anicteric sclerae ENMT: external ear and nose normal, oropharynx normal Neck: trachea midline, no thyromegaly Well healed incision on L from previous endarterectomy Respiratory: no respiratory distress (at rest ), no audible wheezes, no grunting, no nasal flaring, no pursed lip breathing and no stridor Auscultation: + diminished lung sounds (RLL) and + crackles; no wheezes Cardiovascular: Rate/Rhythm: regular rate (paced ) and regular rhythm Heart Sounds: + murmur (2/6 BARRY ) Vessels: no JVD Extremities: + edema (trace b/l, worse on R than L); no calf tenderness Chest (Breasts): Chest: + pacemaker (ICD ) Gastrointestinal (Abdomen): normal bowel sounds, soft, nontender, no hepatosplenomegaly Musculoskeletal: no cyanosis or clubbing, extremities motor strength 5/5 Skin: no rashes, warm and dry Neurologic: PERRL, EOMI, accommodation nl, no face palsy, no dysarthria Psychiatric: A+Ox3, euthymic affect Results & Data Results & Data ([facility]) Vital Signs (Past 12 Hours) Vital Signs Temp Pulse Pulse Resp BP BP Pulse Ox 10/15/21 20:15 88 20 174/91 H 93 10/15/21 18:58 96 H 20 155/93 H 94 10/15/21 18:56 94 10/15/21 18:16 36.7 C 97 H 20 150/85 H 93 Supervising Physician Co-Signing Physician Notes Attending addendum: I have physically seen this patient, have supervised the medical residents activities, and agree with the H&P unless as otherwise noted. Assessment and Plan: Combined systolic/diastolic CHF exacerbation/pacemaker/valvular heart disease/chronic anticoagulation/ischemic cardiomyopathy/coronary artery stent placement/status post TAVR/atrial flutter/fibrillation the patient will be admitted to telemetry for serial cardiac enzymes, serial EKG's, cardiac rhythm monitoring and a 2-D echocardiogram with Dopplers. trial Bumex 1 mg IV, and if not sufficient response, will increase dosage continue amiodarone, apixaban, aspirin, Brilinta, carvedilol, digoxin and ranolazine follow serial BMP and magnesium levels if inadequate response to IV Bumex, patient may require thoracentesis for pleural effusions, as has occurred in the past remaining orders and notations as noted Resident Activity Tracking Resident Involvement: Resident Care Provided Care Provided: Adult [facility]
[2021-10-15] MEDS ORDERED: BUMETANIDE 1 MG in SYRINGE 0 ML IV ONE (20:45)
--- NOTE | 2021-10-15 21:58 | Ultrasound Report ---
ULTRASOUND BILATERAL LOWER EXTREMITY VENOUS CLINICAL HISTORY: Dyspnea. Clinical concern for deep venous thrombosis. COMPARISON STUDY: Bilateral lower extremity venous ultrasound dated 05/08/2018. TECHNIQUE: Real-time, grayscale, and color Doppler sonography of the deep veins of the right and left lower extremity was performed from the inguinal crease to the calf. Compression and augmentation wer e utilized. FINDINGS: There is no sonographic evidence of deep venous thrombosis identified in the right or left lower extremity. The common femoral, superficial femoral, and popliteal veins are patent and normally compressible bilaterally. The greater saphenous vein and the profunda femoris vein at the junction w ith the common femoral vein are clear in both legs. The visualized calf veins are patent bilaterally. IMPRESSION: There is no sonographic evidence of deep venous thrombosis identified in the right or lef t lower extremity. ACT 112: Negative or not required by law. Electronically signed by: Marcus East M.D. 10/15/2021 9:57 PM
[2021-10-15] MEDS ORDERED: GLUCAGON FOR INJ 1 MG VIAL SQ PRN (23:54)
[2021-10-15] MEDS ORDERED: DEXTROSE 50% 50 ML SYRINGE IV PRN (23:54)
[2021-10-15] MEDS ORDERED: traZODone HCL 50 MG TAB PO PRN (23:54)
[2021-10-15] MEDS ORDERED: GLUCOSE 10 TABS/TUBE PO PRN (23:54)
[2021-10-15] MEDS ORDERED: CARBOHYDRATES FOR HYPOGLYCEMIA PO PRN (23:54)
[2021-10-15] MEDS ORDERED: ALBUTEROL HFA 8 GM INHALER INH PRN (23:54)
[2021-10-15] MEDS ORDERED: POLYETHYLENE (MIRALAX) 17 GM PACK PO PRN (23:54)
[2021-10-15] MEDS ORDERED: GLUCOSE 40% GEL 15 GM TUBE PO PRN (23:54)
[2021-10-16] MEDS: ONDANSETRON INJ 2 MG/ML 2 ML VIAL IV PRN (01:01)
[2021-10-16] MEDS: INSULIN ASPART PER UNIT SC SCH ×5 (01:07→21:16)
[2021-10-16] MEDS: carvediloL 6.25 MG TAB PO SCH ×2 (02:08→21:11)
[2021-10-16] MEDS: APIXABAN 2.5 MG TAB PO SCH ×3 (02:08→21:11)
[2021-10-16] MEDS: AMIODARONE 200 MG TAB PO SCH ×2 (02:08→21:10)
[2021-10-16] MEDS: TICAGRELOR 90 MG TAB PO SCH ×3 (02:09→21:10)
[2021-10-16] MEDS: RANOLAZINE 500 MG ER TAB PO SCH ×3 (02:09→21:10)
[2021-10-16] MEDS: CALCIUM CARBONATE 500 MG CHEWABLE TAB PO PRN ×2 (04:22→13:33)
[2021-10-16] MEDS: LEVOTHYROXINE SODIUM 75 MCG TABLET PO SCH (06:15)
[2021-10-16 06:57] LABS: Basophils # (auto) 0.02 K/uL (0-0.2); Basophils % (auto) 0.2 %; Eosinophils # (auto) 0.14 K/uL (0-0.5); Eosinophils % (auto) 1.2 %; Hematocrit (blood only) 39.1 % (37-47); Hemoglobin 12.1 g/dL (12.0-16.0); Immature Granulocytes # (auto) 0.03 K/uL (0.00-0.02); Immature Granulocytes % (auto) 0.3 %; Lymphocytes # (auto) 1.24 K/uL (1.2-3.4); Lymphocytes % (auto) 10.4 %; Mean Corpuscular Hemoglobin 33.2 pg (25-34); Mean Corpuscular Hgb Conc 30.9 g/dL (32-36); Mean Corpuscular Volume 107.4 fL (80-100); Mean Platelet Volume 10.8 fL (7.4-10.4); Monocytes # (auto) 1.31 K/uL (0.11-0.59); Neutrophils # (auto) 9.19 K/uL (1.4-6.5); Neutrophils % (auto) 76.9 %; Platelet Count 329 K/uL (130-400); RDW Coefficient of Variation 13.6 % (11.5-14.5); RDW Standard Deviation 53.1 fL (36.4-46.3); Red Blood Count 3.64 M/uL (4.2-5.4); White Blood Count 11.93 K/uL (4.8-10.8)
[2021-10-16 07:27] LABS: Albumin Level 3.1 gm/dl (3.4-5.0); BUN Creatinine Ratio 15.7 (10-20); Calcium 9.1 mg/dl (8.5-10.1); Creatinine Clr Calc Pharmacy 23.5 ml/min; Est GFR (African American) 25.2 ml/min; Est GFR (Non-African American) 21.8 ml/min; Magnesium 2.4 mg/dl (1.8-2.4); Potassium 4.3 mmol/L (3.5-5.1)
--- NOTE | 2021-10-16 07:31 | XRay Report ---
XR chest 1V portable HISTORY: 81 years-old Female SOB acute shortness of breath COMPARISON: Chest radiograph 10/15/2021 TECHNIQUE: Portable AP view of the chest FINDINGS: Cardiac silhouette is enlarged. Aortic endograft. Calcified plaque the thoracic aorta. Left subclavia n pacer/AICD. There are persistent layering pleural effusions with bibasilar predominant consolidatio n which is not significantly changed. Pulmonary vascular congestion with interstitial coarsening. No pneumothorax. Degenerative changes of the shoulders and spine. IMPRESSION: 1. Cardiomegaly with unchanged pulmonary vascular congestion. 2. Layering pleural effusions with bibasilar consolidation redemonstrated. ACT 112: Negative or not required by law. The above report was generated using voice recognition software. It may contain grammatical, syntax o r spelling errors. Electronically signed by: Irving Lerner M.D. 10/16/2021 7:30 AM
[2021-10-16 07:38] LABS: Albumin Globulin Ratio 0.7 (0.9-2); Bilirubin,Total 0.5 mg/dl (0.2-1); Globulin 4.4 gm/dl (2.5-4.0); Thyroid Stimulating Hormone 2.14 uIu/ml (0.300-4.500); Total Protein 7.5 gm/dl (6.4-8.2)
[2021-10-16] MEDS ORDERED: ALUMINUM/MAGNESIUM/SIMETH (MAALOX MAX) 30 ML UDC PO STA (08:28)
[2021-10-16] MEDS: BUMETANIDE 1 MG TAB PO SCH ×2 (09:01→17:06)
[2021-10-16] MEDS: carvediloL 3.125 MG TAB PO SCH (09:01)
[2021-10-16] MEDS: PANTOprazole 40 MG TAB PO SCH (09:01)
[2021-10-16] MEDS: INSULIN GLARGINE SOLOSTAR 100 UNITS/ML 3 ML PEN SC SCH (09:01)
--- NOTE | 2021-10-16 12:02 | XCELERA ---
[id number]
[2021-10-16] MEDS ORDERED: FAMOTIDINE 20 MG in SYRINGE 3 ML IV ONE (13:58)
[2021-10-16] MEDS ORDERED: FAMOTIDINE 20 MG in SYRINGE 3 ML IV SCH (14:00)
[2021-10-16] MEDS: SIMETHICONE 80 MG CHEW PO PRN (14:55)
[2021-10-16 15:02] LABS: Appearance Urine Clear (Clear); Bacteria Urine Automated Negative (Negative); Bilirubin Urine Negative (Negative); Blood Urine Trace (Negative); Color Urine Yellow; Glucose Urine UA Negative (Negative); Ketones Urine Negative (Negative); Leukocyte Esterase Urine Trace (Negative); Nitrite Urine Negative (Negative); Protein Urine Negative (Negative); RBC Urine Automated 0-4 /hpf (0-4); Urobilinogen Urine Negative (Negative)
--- NOTE | 2021-10-16 19:14 | Hospitalist Progress Note ---
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 Suspected CHF exacerbation on chronic Combined Systolic and Diastolic CHF -With crackles on exam, elevated BNP 5971, Pulmonary congestion on CXR -Will give 1mg IV Bumex at this time and monitor output, may require increase as renal function at this time mildly reduced from baseline with Cr 2.21 (base 1.8- 2) -Place fregoso catheter for I/O's -Daily Weights -Repeat CXR in AM -Fluid restrict 1800ml and HH Low Na diet -Resume home Bumex 1mg BID PO in AM, monitor for need for further IV bumex -Echo 10/22/20 with EF 40-45%, repeat in AM -Not currently on HERMELINDO/ARBs due to CKD -Continue Carvedilol 3.125mg qAM and 6.25mg qHS -S/P Biventricular device - notes she has not received any shocks to this date R and L Pleural Effusions -R > L pleural effusion noted on CXR -Patient notes history of requiring Thoracentesis -At this time do not feel that the effusion is the main cause of her SOB on exer tion and believe it is secondary to CHF exacerbation -Will diurese as above, if no improvement consider Pulmonology consult for tap -Repeat CXR in AM: Redemonstration of effusionno significant change from previous x-ray. Abdominal discomfort/belching -Symptoms present on admission -Symptoms refractory to Mylanta, initial IV push famotidine 20 mg. -Now on IV famotidine 20 mg every 12, plus simethicone. Reassess in the morning. -Ordered urinalysis. Results unclear, reflex to culture. Continue to monitor. Hx Atrial Flutter/Fibrillation, Hx DVT -Continue Amiodarone -Continue Digoxin -Continue Carvedilol -Continue Eliquis 2.5mg BID -May have to consider treatment with Lovenox as patient has current hx of breast cancer, though with renal function at this time reduced, will continue on home Eliquis S/P L Internal Carotid Endarterectomy -Redone on 09/27/21 -Continue Brilinta -Continue Eliquis 2.5mg BID -Hold ASA as patient had not tolerated and has been holding on her own since 09/30/21 CAD -s/p NATY to mid LAD 10/2017 and NATY prox to mid LAD 10/17/2018 circumflex PCI 09/2019, mid circumflex 05/2019, ostial circumflex 12/2019 -Continue Eliquis 2.5mg BID -ASA on hold as above due to intolerance (GI upset), patient on Brilinta daily -Continue home Ranexa 500mg PO BID 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 GERD -Continue home protonix -Increased to 40 mg p.o. daily. DM2 -SSI and Basal bolus Dispo: Med/Surg Telemetry FEN: HH, Low Na diet, fluid restrict 1800ml DVT: Eliquis 2.5mg BID (may consider Lovenox if renal function improves) Code: DNR/DNI, per patient's Living Will as well she WOULD NOT want Dialysis (2) CKD (chronic kidney disease) stage 4, GFR 15-29 ml/min: (3) Pleural effusion: (4) Chronic combined systolic and diastolic CHF (congestive heart failure): (5) Breast cancer, right: Admission and Anticipated Discharge Date Admission Date: October 15, 2021 Supervising Physician Co-Signing Physician Notes Attending attestation Pt seen and examined in concert with Dr. Gaspar. In agreement with the documented findings as noted in the resident documentation with any exceptions or additions as noted here. Patient resting in bed sitting up to relieve abdominal pain. Signfiicant improvement in SOB after previous diuresis. On examination, S1/S2 nl RRR no MCG. CTAB. Abd TTP epigastrically and b/l LQ/ND BS+ve HFrEF - continue IV diuresis daily and monitor fluids/I/O TRACY - downtrending Cr, avoid other nephrotoxic interventions, trend BMP daily Abdominal pain, subacute - add famotidine, gas-x, monitor and consider further evaluation vs. outpatient GI based on response Else see resident documentation as noted. 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 Per nursing, she had no acute events overnight. This morning, she is seated upright at her bedside. She is complaining of abdominal pressure and chronic belching that she has had since September 27. She has no other complaints at this time. Review of Systems Review of Systems: All systems reviewed & are unremarkable except as noted in HPI & below Physical Exam Constitutional: WD/WN, vitals as above Respiratory: normal respiratory effort, lungs clear to auscultation Cardiovascular: RRR, no murmur, no edema Gastrointestinal (Abdomen): Inspection/Auscultation: normal bowel sounds Percussion/Palpation: + abdomen tender (At substernal midepigastrium; right lower quadrant and left lower quadrant) and abdomen soft; no guarding Results & Data Results & Data ([facility]) Vital Signs (Past 12 Hours) Vital Signs Temp Pulse Resp BP BP Pulse Ox 10/16/21 16:30 36.7 C 99 H 19 88/55 L 175/83 H 94 10/16/21 11:35 36.7 C 100 H 14 118/98 98 10/16/21 10:34 98 H 18 107/84 96 Resident Activity Tracking Resident Involvement: Resident Care Provided Care Provided: Adult Hospital Medicine
--- NOTE | 2021-10-16 20:52 | Electrocardiogram Report ---
Test Reason : Blood Pressure : / mmHG Vent. Rate : 096 BPM Atrial Rate : 096 BPM P-R Int : 206 ms QRS Dur : 142 ms QT Int : 388 ms P-R-T Axes : 000 012 163 degrees QTc Int : 490 ms Atrial flutter with 2 to 1 block Left bundle branch block Abnormal ECG When compared with ECG of 18-SEP-2021 22:52, Vent. rate has increased BY 23 BPM Atrial flutter is now Present Confirmed by Davion Alvarez ([id number]) on 10/16/2021 8:51:38 PM Referred By: REFERRED SELF Confirmed By:Davion Alvarez
[2021-10-16] MEDS: FAMOTIDINE 20 MG in SYRINGE 3 ML IV SCH (21:09)
--- NOTE | 2021-10-16 22:25 | Billing Data ---
Date of Service October 16, 2021 Coding Level of Care Code 00810 Initial Inpt Care Lvl 3
[2021-10-17] MEDS: ONDANSETRON INJ 2 MG/ML 2 ML VIAL IV PRN (01:25)
[2021-10-17] MEDS: LEVOTHYROXINE SODIUM 75 MCG TABLET PO SCH (06:31)
--- NOTE | 2021-10-17 07:27 | Hospitalist Progress Note ---
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 Suspected CHF exacerbation on chronic Combined Systolic and Diastolic CHF -With crackles on exam, elevated BNP 5971, Pulmonary congestion on CXR -Will give 1mg IV Bumex at this time and monitor output, may require increase as renal function at this time mildly reduced from baseline with Cr 2.21 (base 1.8- 2) -Place fregoso catheter for I/O's -Daily Weights -Repeat CXR in AM -Fluid restrict 1800ml and HH Low Na diet -Resume home Bumex 1mg BID PO in AM, monitor for need for further IV bumex -Echo 10/22/20 with EF 40-45%, repeat in AM -Not currently on HERMELINDO/ARBs due to CKD -Continue Carvedilol 3.125mg qAM and 6.25mg qHS -S/P Biventricular device - notes she has not received any shocks to this date -Patient complaining of difficulty breathing while saturating at 98% on 2 L of nasal cannula: Administered additional IV Lasix 20 mg x 2 today. -Trend a.m. creatinine, reassess patient in the morning for improvement in her breathing. R and L Pleural Effusions -R > L pleural effusion noted on CXR -Patient notes history of requiring Thoracentesis -At this time do not feel that the effusion is the main cause of her SOB on exertion and believe it is secondary to CHF exacerbation -Will diurese as above, if no improvement consider Pulmonology consult for tap -Repeat CXR 10/16/2021: Re-demonstration of effusionno significant change from previous x-ray. -Received IV Lasix 20 mg x 2 today (see above). Abdominal discomfort/belching -Symptoms present on admission; potentially related to patient's longstanding GERD. -Symptoms refractory to Mylanta, initial IV push famotidine 20 mg. -Now on IV famotidine 20 mg every 12, plus simethicone. Reassess in the morning. -Ordered urinalysis. Results unclear, reflex to culture. Continue to monitor. -Stopped IV famotidine, simethicone. Changed patient's pantoprazole to 40 mg twice daily. Added as needed Zofran for nausea. Hx Atrial Flutter/Fibrillation, Hx DVT -Continue Amiodarone -Continue Digoxin -Continue Carvedilol -Continue Eliquis 2.5mg BID -May have to consider treatment with Lovenox as patient has current hx of breast cancer, though with renal function at this time reduced, will continue on home Eliquis S/P L Internal Carotid Endarterectomy -Redone on 09/27/21 -Continue Brilinta -Continue Eliquis 2.5mg BID -Hold ASA as patient had not tolerated and has been holding on her own since 09/30/21 CAD -s/p NATY to mid LAD 10/2017 and NATY prox to mid LAD 10/17/2018 circumflex PCI 09/2019, mid circumflex 05/2019, ostial circumflex 12/2019 -Continue Eliquis 2.5mg BID -ASA on hold as above due to intolerance (GI upset), patient on Brilinta daily -Continue home Ranexa 500mg PO BID 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 GERD -Continue home protonix -Increased to 40 mg p.o. daily. DM2 -SSI and Basal bolus Dispo: Med/Surg Telemetry FEN: HH, Low Na diet, fluid restrict 1800ml DVT: Eliquis 2.5mg BID (may consider Lovenox if renal function improves) Code: DNR/DNI, per patient's Living Will as well she WOULD NOT want Dialysis (2) CKD (chronic kidney disease) stage 4, GFR 15-29 ml/min: (3) Pleural effusion: (4) Chronic combined systolic and diastolic CHF (congestive heart failure): (5) Breast cancer, right: Admission and Anticipated Discharge Date Admission Date: October 15, 2021 Supervising Physician Co-Signing Physician Notes Attending attestation Pt seen and examined in concert with . In agreement with the documented findings as noted in the resident documentation with any exceptions or additions as noted here. Patient resting in bed sitting up to relieve abdominal pain which is postprandial and improved following famotidine (though also had ?nausea with it, so patient prefers PPI). Continued improvement in SOB. On examination, S1/S2 nl RRR no MCG. CTAB. Abd TTP epigastrically and b/l LQ/ND BS+ve HFrEF - continue IV diuresis daily and monitor fluids/I/O TRACY - downtrending Cr, avoid other nephrotoxic interventions, trend BMP daily Abdominal pain, subacute - d/c famotidine, add extra PPI dose this PM and consider further evaluation vs. outpatient GI based on response Else see resident documentation as noted. Subjective Per telemetry: Patient paced and in A. fib with rates in the 90s. Patient is resting in bed. She complains of persistent abdominal discomfort and belching. She also complains of increased nausea after taking the famotidine. She reports having some difficulty breathing as well. Review of Systems Review of Systems: All systems reviewed & are unremarkable except as noted in HPI & below Physical Exam Constitutional: WD/WN, vitals as above Respiratory: normal respiratory effort, lungs clear to auscultation Cardiovascular: RRR, no murmur, no edema Gastrointestinal (Abdomen): Inspection/Auscultation: normal bowel sounds Percussion/Palpation: + abdomen tender (At substernal midepigastrium; right lower quadrant and left lower quadrant) and abdomen soft; no guarding Results & Data Results & Data ([facility]) Vital Signs (Past 12 Hours) Vital Signs Temp Pulse Pulse Resp BP BP Pulse Ox 10/17/21 04:00 36.6 C 96 H 98 H 20 151/83 H 95 10/17/21 02:40 36.7 C 98 H 23 101/69 97 10/16/21 22:43 102 H 20 127/83 96 Resident Activity Tracking Resident Involvement: Resident Care Provided Care Provided: Adult Hospital Medicine
[2021-10-17 08:57] LABS: Basophils # (auto) 0.02 K/uL (0-0.2); Basophils % (auto) 0.2 %; Eosinophils # (auto) 0.08 K/uL (0-0.5); Eosinophils % (auto) 0.9 %; Hematocrit (blood only) 35.3 % (37-47); Hemoglobin 11.1 g/dL (12.0-16.0); Immature Granulocytes # (auto) 0.02 K/uL (0.00-0.02); Immature Granulocytes % (auto) 0.2 %; Lymphocytes # (auto) 1.29 K/uL (1.2-3.4); Lymphocytes % (auto) 13.7 %; Mean Corpuscular Hemoglobin 33.5 pg (25-34); Mean Corpuscular Hgb Conc 31.4 g/dL (32-36); Mean Corpuscular Volume 106.6 fL (80-100); Mean Platelet Volume 10.7 fL (7.4-10.4); Monocytes # (auto) 1.05 K/uL (0.11-0.59); Monocytes % (auto) 11.2 %; Neutrophils # (auto) 6.93 K/uL (1.4-6.5); Neutrophils % (auto) 73.8 %; Platelet Count 283 K/uL (130-400); RDW Coefficient of Variation 13.8 % (11.5-14.5); RDW Standard Deviation 53.2 fL (36.4-46.3); Red Blood Count 3.31 M/uL (4.2-5.4); White Blood Count 9.39 K/uL (4.8-10.8)
[2021-10-17] MEDS: RANOLAZINE 500 MG ER TAB PO SCH ×2 (09:05→21:55)
[2021-10-17] MEDS: carvediloL 3.125 MG TAB PO SCH (09:06)
[2021-10-17] MEDS: BUMETANIDE 1 MG TAB PO SCH ×2 (09:06→17:40)
[2021-10-17] MEDS: TICAGRELOR 90 MG TAB PO SCH ×2 (09:06→22:04)
[2021-10-17] MEDS: APIXABAN 2.5 MG TAB PO SCH ×2 (09:06→21:56)
[2021-10-17] MEDS: SIMETHICONE 80 MG CHEW PO PRN (09:07)
[2021-10-17] MEDS: PANTOprazole 40 MG TAB PO SCH ×2 (09:07→15:14)
[2021-10-17] MEDS: FAMOTIDINE 20 MG in SYRINGE 3 ML IV SCH (09:07)
[2021-10-17] MEDS: INSULIN GLARGINE SOLOSTAR 100 UNITS/ML 3 ML PEN SC SCH (09:08)
[2021-10-17] MEDS: INSULIN ASPART PER UNIT SC SCH ×4 (09:13→21:59)
[2021-10-17 09:33] LABS: BUN Creatinine Ratio 16.1 (10-20); Calcium 8.7 mg/dl (8.5-10.1); Creatinine Clr Calc Pharmacy 23.9 ml/min; Est GFR (African American) 25.8 ml/min; Est GFR (Non-African American) 22.3 ml/min; Potassium 4.4 mmol/L (3.5-5.1)
[2021-10-17] MEDS ORDERED: ONDANSETRON INJ 2 MG/ML 2 ML VIAL IV PRN (12:55)
[2021-10-17] MEDS ORDERED: FUROSEMIDE INJ 20 MG/2 ML VIAL IV ONE ×2 (14:13→20:44)
[2021-10-17] MEDS: carvediloL 6.25 MG TAB PO SCH (21:55)
[2021-10-17] MEDS: AMIODARONE 200 MG TAB PO SCH (21:55)
[2021-10-18] MEDS: LEVOTHYROXINE SODIUM 75 MCG TABLET PO SCH (05:29)
[2021-10-18 07:38] LABS: Basophils # (auto) 0.02 K/uL (0-0.2); Basophils % (auto) 0.3 %; Eosinophils # (auto) 0.24 K/uL (0-0.5); Eosinophils % (auto) 3.7 %; Hematocrit (blood only) 34.4 % (37-47); Hemoglobin 10.7 g/dL (12.0-16.0); Immature Granulocytes # (auto) 0.02 K/uL (0.00-0.02); Immature Granulocytes % (auto) 0.3 %; Lymphocytes # (auto) 1.46 K/uL (1.2-3.4); Lymphocytes % (auto) 22.6 %; Mean Corpuscular Hemoglobin 33.1 pg (25-34); Mean Corpuscular Hgb Conc 31.1 g/dL (32-36); Mean Corpuscular Volume 106.5 fL (80-100); Mean Platelet Volume 10.7 fL (7.4-10.4); Monocytes % (auto) 12.4 %; Neutrophils # (auto) 3.92 K/uL (1.4-6.5); Neutrophils % (auto) 60.7 %; Platelet Count 253 K/uL (130-400); RDW Coefficient of Variation 13.8 % (11.5-14.5); RDW Standard Deviation 53.4 fL (36.4-46.3); Red Blood Count 3.23 M/uL (4.2-5.4); White Blood Count 6.46 K/uL (4.8-10.8)
--- NOTE | 2021-10-18 08:00 | Hospitalist Progress Note ---
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 Suspected CHF exacerbation on chronic Combined Systolic and Diastolic CHF -Elevated BNP 5971, Pulmonary congestion on CXR -Placed fregoso catheter for I/O's. Last night 1350cc output. -Daily Weights -Fluid restrict 1800ml and HH Low Na diet -Resume home Bumex 1mg BID PO in AM, monitor for need for further IV bumex -Echo 10/16/21 with EF 40-45% -Not currently on HERMELINDO/ARBs due to CKD -Continue Carvedilol 3.125mg qAM and 6.25mg qHS -S/P Biventricular device - notes she has not received any shocks to this date -Received 40mg IV total Lasix yesterday. Administered additional IV Lasix 20 mg today. Continue to monitor output. -Trend a.m. creatinine, reassess patient in the morning for improvement in her breathing. If not improved may give another dose of Lasix 20mg IV. R and L Pleural Effusions -R > L pleural effusion noted on CXR -Patient notes history of requiring Thoracentesis -At this time do not feel that the effusion is the main cause of her SOB on exertion and believe it is secondary to CHF exacerbation -Will diurese as above, if no improvement consider Pulmonology consult for tap -Repeat CXR 10/16/2021: Re-demonstration of effusionno significant change from previous x-ray. -Received IV Lasix 20 mg today (see above). Abdominal discomfort/belching -Symptoms present on admission; potentially related to patient's longstanding GERD. -Symptoms refractory to Mylanta, initial IV push famotidine 20 mg. -Urinalysis unremarkable. Continue to monitor. -Stopped IV famotidine, simethicone. Changed patient's pantoprazole to 40 mg twice daily. Added as needed Zofran for nausea. Hx Atrial Flutter/Fibrillation, Hx DVT -Continue Amiodarone -Continue Digoxin -Continue Carvedilol -Continue Eliquis 2.5mg BID -May have to consider treatment with Lovenox as patient has current hx of breast cancer, though with renal function at this time reduced, will continue on home Eliquis S/P L Internal Carotid Endarterectomy -Redone on 09/27/21 -Continue Brilinta -Continue Eliquis 2.5mg BID -Hold ASA as patient had not tolerated and has been holding on her own since 09/30/21 CAD -s/p NATY to mid LAD 10/2017 and NATY prox to mid LAD 10/17/2018 circumflex PCI 09/2019, mid circumflex 05/2019, ostial circumflex 12/2019 -Continue Eliquis 2.5mg BID -ASA on hold as above due to intolerance (GI upset), patient on Brilinta daily -Continue home Ranexa 500mg PO BID 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 GERD -Continue home protonix -Increased to 40 mg p.o. daily. DM2 -SSI and Basal bolus Dispo: Med/Surg Telemetry FEN: HH, Low Na diet, fluid restrict 1800ml DVT: Eliquis 2.5mg BID (may consider Lovenox if renal function improves) Code: DNR/DNI, per patient's Living Will as well she WOULD NOT want Dialysis (2) CKD (chronic kidney disease) stage 4, GFR 15-29 ml/min: (3) Pleural effusion: (4) Chronic combined systolic and diastolic CHF (congestive heart failure): (5) Breast cancer, right: Admission and Anticipated Discharge Date Admission Date: October 15, 2021 Supervising Physician Co-Signing Physician Notes Attending attestation Pt seen and examined in concert with Dr. Beckwith . In agreement with the documented findings as noted in the resident documentation with any exceptions or additions as noted here. Patient resting in bed sitting up to relieve abdominal pain which is postprandial and improved following famotidine (though also had ?nausea with it, so patient prefers PPI). Continued improvement in SOB. On examination, S1/S2 nl RRR no MCG. CTAB. Abd TTP epigastrically and b/l LQ/ND BS+ve HFrEF - continue IV diuresis daily and monitor fluids/I/O. give IV 40 mg of lasix on 10/18 TRACY - downtrending Cr, avoid other nephrotoxic interventions, trend BMP daily Abdominal pain, subacute - d/c famotidine, add extra PPI dose this PM and consider further evaluation vs. outpatient GI based on response Else see resident documentation as noted. Subjective Patient seen at bedside this morning. Patient feels she is not short of breath at rest but experiences shortness of breath still with exertion when walking to and from the bathroom. Denies fevers, chills, chest pain, nausea, vomiting. Contacted by heart failure clinic. According to them patient's most recent dry weight 205lbs, weight in hospital around 213lbs. Review of Systems Review of Systems: All systems reviewed & are unremarkable except as noted in HPI & below Physical Exam Constitutional: WD/WN, vitals as above Eyes: PERRL, conjunctivae normal, anicteric sclerae Respiratory: normal respiratory effort, lungs clear to auscultation Cardiovascular: RRR, no murmur, no edema Skin: No swelling or pitting edema appreciated at lower extremities. Results & Data Results & Data ([facility]) Vital Signs (Past 12 Hours) Vital Signs Temp Pulse Pulse Resp BP BP Pulse Ox 10/18/21 07:44 36.4 C L 89 20 123/69 98 10/18/21 05:10 92 H 10/18/21 03:31 36.6 C 68 16 107/51 L 92 10/17/21 23:58 36.7 C 98 H 20 102/69 97 Resident Activity Tracking Resident Involvement: Resident Care Provided Care Provided: Adult Hospital Medicine
[2021-10-18] MEDS: carvediloL 3.125 MG TAB PO SCH (08:31)
[2021-10-18] MEDS: RANOLAZINE 500 MG ER TAB PO SCH ×2 (08:31→20:46)
[2021-10-18] MEDS: APIXABAN 2.5 MG TAB PO SCH ×2 (08:31→20:46)
[2021-10-18] MEDS: INSULIN GLARGINE SOLOSTAR 100 UNITS/ML 3 ML PEN SC SCH (08:32)
[2021-10-18] MEDS: PANTOprazole 40 MG TAB PO SCH ×2 (08:32→20:45)
[2021-10-18] MEDS: TICAGRELOR 90 MG TAB PO SCH ×2 (08:32→20:45)
[2021-10-18] MEDS: INSULIN ASPART PER UNIT SC SCH ×4 (08:32→20:44)
[2021-10-18] MEDS: BUMETANIDE 1 MG TAB PO SCH ×2 (08:32→16:49)
[2021-10-18 09:15] LABS: BUN Creatinine Ratio 17.2 (10-20); Calcium 8.7 mg/dl (8.5-10.1); Creatinine Clr Calc Pharmacy 24.6 ml/min; Est GFR (African American) 26.4 ml/min; Est GFR (Non-African American) 22.8 ml/min; Potassium 3.8 mmol/L (3.5-5.1)
--- NOTE | 2021-10-18 14:14 | Electrocardiogram Report ---
Test Reason : Blood Pressure : / mmHG Vent. Rate : 095 BPM Atrial Rate : 095 BPM P-R Int : 242 ms QRS Dur : 146 ms QT Int : 400 ms P-R-T Axes : 000 003 145 degrees QTc Int : 502 ms Atrial flutter with 2 to 1 block Abnormal ECG When compared with ECG of 15-OCT-2021 18:44, No significant change Confirmed by Boby Benitez ([id number]) on 10/18/2021 2:14:01 PM Referred By: REFERRED SELF Confirmed By:Boby Benitez
[2021-10-18] MEDS ORDERED: DIGOXIN 0.125 MG TAB PO SCH (16:00)
[2021-10-18] MEDS ORDERED: FUROSEMIDE INJ 20 MG/2 ML VIAL IV ONE ×2 (18:18→20:47)
[2021-10-18] MEDS: AMIODARONE 200 MG TAB PO SCH (20:44)
[2021-10-18] MEDS: CALCIUM CARBONATE 500 MG CHEWABLE TAB PO PRN (20:44)
[2021-10-18] MEDS: carvediloL 6.25 MG TAB PO SCH (20:46)
--- NOTE | 2021-10-18 20:49 | Billing Data ---
Date of Service October 18, 2021 Coding Level of Care Code 73460 Subseq Hosp Care Lvl 2
[2021-10-19] MEDS: LEVOTHYROXINE SODIUM 75 MCG TABLET PO SCH (06:06)
--- NOTE | 2021-10-19 07:16 | Hospitalist Progress Note ---
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 Suspected CHF exacerbation on chronic Combined Systolic and Diastolic CHF -Admission BNP 5971, decreased to 4264. -Placed fregoso catheter for I/O's. -Daily standing weights. Last one today 93kg. -Fluid restrict 1800ml and HH Low Na diet -Resume home Bumex 1mg BID PO in AM, monitor for need for further IV bumex -Echo 10/16/21 with EF 40-45% -Not currently on HERMELINDO/ARBs due to CKD -Continue Carvedilol 3.125mg qAM and 6.25mg qHS -S/P Biventricular device - notes she has not received any shocks to this date -Received 20mg IV total Lasix yesterday. Administered additional IV Lasix 40 mg today. Continue to monitor output. -Trend a.m. creatinine, reassess patient in the morning for improvement in her breathing. R and L Pleural Effusions -R > L pleural effusion noted on CXR -Patient notes history of requiring Thoracentesis -At this time do not feel that the effusion is the main cause of her SOB on exertion and believe it is secondary to CHF exacerbation -Will diurese as above, if no improvement consider Pulmonology consult for tap -Repeat CXR 10/16/2021: Re-demonstration of effusionno significant change from previous x-ray. -Received IV Lasix 20 mg yesterday (see above). Abdominal discomfort/belching -Symptoms present on admission; potentially related to patient's longstanding GERD. -Symptoms refractory to Mylanta, initial IV push famotidine 20 mg. -Urinalysis unremarkable. Continue to monitor. -Stopped IV famotidine, simethicone. Changed patient's pantoprazole to 40 mg twice daily. Added as needed Zofran for nausea. Hx Atrial Flutter/Fibrillation, Hx DVT -Continue Amiodarone -Continue Digoxin -Continue Carvedilol -Continue Eliquis 2.5mg BID -May have to consider treatment with Lovenox as patient has current hx of breast cancer, though with renal function at this time reduced, will continue on home Eliquis S/P L Internal Carotid Endarterectomy -Redone on 09/27/21 -Continue Brilinta -Continue Eliquis 2.5mg BID -Hold ASA as patient had not tolerated and has been holding on her own since 09/30/21 CAD -s/p NATY to mid LAD 10/2017 and NATY prox to mid LAD 10/17/2018 circumflex PCI 09/2019, mid circumflex 05/2019, ostial circumflex 12/2019 -Continue Eliquis 2.5mg BID -ASA on hold as above due to intolerance (GI upset), patient on Brilinta daily -Continue home Ranexa 500mg PO BID 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 GERD -Continue home protonix -Increased to 40 mg p.o. daily. DM2 -SSI and Basal bolus Dispo: Med/Surg Telemetry FEN: HH, Low Na diet, fluid restrict 1800ml DVT: Eliquis 2.5mg BID (may consider Lovenox if renal function improves) Code: DNR/DNI, per patient's Living Will as well she WOULD NOT want Dialysis (2) CKD (chronic kidney disease) stage 4, GFR 15-29 ml/min: (3) Pleural effusion: (4) Chronic combined systolic and diastolic CHF (congestive heart failure): (5) Breast cancer, right: Admission and Anticipated Discharge Date Admission Date: October 15, 2021 Supervising Physician Co-Signing Physician Notes Attending attestation Pt seen and examined in concert with Dr. Gillis . In agreement with the documented findings as noted in the resident documentation with any exceptions or additions as noted here. Patient resting in bed sitting up to relieve abdominal pain which is postprandial and improved following famotidine (though also had ?nausea with it, so patient prefers PPI). Continued improvement in SOB. Weight close to dry weight. On examination, S1/S2 nl RRR no MCG. CTAB. Abd TTP epigastrically and b/l LQ/ND BS+ve HFrEF - continue IV diuresis daily and monitor fluids/I/O. give IV 40 mg of lasix on 14 on PM. hold bumex today. TRACY - uptrending Cr but at baseline, avoid other nephrotoxic interventions, trend BMP daily Abdominal pain, subacute - d/c famotidine, add extra PPI dose this PM and consider further evaluation vs. outpatient GI based on response Else see resident documentation as noted. Subjective Patient seen at the bedside this morning. Patient states she is not short of breath at rest without the oxygen. She is still mildly short of breath when walking around. Denies chest pain, fevers, chills, nausea, vomiting. Review of Systems Review of Systems: All systems reviewed & are unremarkable except as noted in HPI & below Physical Exam Constitutional: WD/WN, vitals as above Eyes: PERRL, conjunctivae normal, anicteric sclerae Respiratory: normal respiratory effort, lungs clear to auscultation Cardiovascular: RRR, no murmur, no edema Results & Data Results & Data ([facility]) Vital Signs (Past 12 Hours) Vital Signs Temp Pulse Pulse Resp BP Pulse Ox 10/19/21 04:11 36.6 C 93 H 18 120/71 95 10/19/21 00:00 96 H 10/18/21 23:35 36.9 C 97 H 18 117/69 93 10/18/21 19:15 36.7 C 87 18 134/69 93 Resident Activity Tracking Resident Involvement: Resident Care Provided Care Provided: Adult Hospital Medicine
[2021-10-19] MEDS: INSULIN GLARGINE SOLOSTAR 100 UNITS/ML 3 ML PEN SC SCH (08:15)
[2021-10-19] MEDS: INSULIN ASPART PER UNIT SC SCH ×4 (08:15→20:31)
[2021-10-19 08:32] LABS: Basophils # (auto) 0.02 K/uL (0-0.2); Basophils % (auto) 0.2 %; Eosinophils # (auto) 0.28 K/uL (0-0.5); Eosinophils % (auto) 3.4 %; Hematocrit (blood only) 37.9 % (37-47); Hemoglobin 11.9 g/dL (12.0-16.0); Immature Granulocytes # (auto) 0.01 K/uL (0.00-0.02); Immature Granulocytes % (auto) 0.1 %; Lymphocytes # (auto) 1.96 K/uL (1.2-3.4); Mean Corpuscular Hemoglobin 33.7 pg (25-34); Mean Corpuscular Hgb Conc 31.4 g/dL (32-36); Mean Corpuscular Volume 107.4 fL (80-100); Monocytes # (auto) 0.85 K/uL (0.11-0.59); Monocytes % (auto) 10.4 %; Neutrophils # (auto) 5.04 K/uL (1.4-6.5); Neutrophils % (auto) 61.9 %; Platelet Count 309 K/uL (130-400); RDW Standard Deviation 54.6 fL (36.4-46.3); Red Blood Count 3.53 M/uL (4.2-5.4); White Blood Count 8.16 K/uL (4.8-10.8)
[2021-10-19 08:49] LABS: BUN Creatinine Ratio 18.2 (10-20); Calcium 9.1 mg/dl (8.5-10.1); Creatinine Clr Calc Pharmacy 23.1 ml/min; Est GFR (African American) 24.6 ml/min; Est GFR (Non-African American) 21.3 ml/min; Potassium 3.8 mmol/L (3.5-5.1)
[2021-10-19] MEDS: BUMETANIDE 1 MG TAB PO SCH (08:56)
[2021-10-19] MEDS: APIXABAN 2.5 MG TAB PO SCH ×2 (08:56→20:35)
[2021-10-19] MEDS: TICAGRELOR 90 MG TAB PO SCH ×2 (08:56→20:35)
[2021-10-19] MEDS: PANTOprazole 40 MG TAB PO SCH ×2 (08:56→21:35)
[2021-10-19] MEDS: RANOLAZINE 500 MG ER TAB PO SCH ×2 (08:56→20:34)
[2021-10-19] MEDS: carvediloL 3.125 MG TAB PO SCH (08:56)
--- NOTE | 2021-10-19 11:55 | Electrocardiogram Report ---
Test Reason : Blood Pressure : / mmHG Vent. Rate : 094 BPM Atrial Rate : 094 BPM P-R Int : 224 ms QRS Dur : 146 ms QT Int : 394 ms P-R-T Axes : 100 -03 137 degrees QTc Int : 492 ms Atrial flutter with 2 to 1 block Abnormal ECG When compared with ECG of 18-OCT-2021 08:51, No significant change Confirmed by Boby Benitez ([id number]) on 10/19/2021 11:54:47 AM Referred By: REFERRED SELF Confirmed By:Boby Benitez
[2021-10-19] MEDS ORDERED: FUROSEMIDE 40 MG/4 ML VIAL IV ONE (19:18)
[2021-10-19] MEDS: AMIODARONE 200 MG TAB PO SCH (20:34)
[2021-10-19] MEDS: carvediloL 6.25 MG TAB PO SCH (20:34)
--- NOTE | 2021-10-19 21:04 | Billing Data ---
Date of Service October 19, 2021 Coding Level of Care Code 52240 Subseq Hosp Care Lvl 2
[2021-10-20 06:00] LABS: Basophils # (auto) 0.02 K/uL (0-0.2); Basophils % (auto) 0.3 %; Eosinophils # (auto) 0.29 K/uL (0-0.5); Eosinophils % (auto) 3.9 %; Hematocrit (blood only) 36.1 % (37-47); Hemoglobin 11.3 g/dL (12.0-16.0); Immature Granulocytes # (auto) 0.01 K/uL (0.00-0.02); Immature Granulocytes % (auto) 0.1 %; Lymphocytes # (auto) 1.85 K/uL (1.2-3.4); Lymphocytes % (auto) 25.1 %; Mean Corpuscular Hemoglobin 33.3 pg (25-34); Mean Corpuscular Hgb Conc 31.3 g/dL (32-36); Mean Corpuscular Volume 106.5 fL (80-100); Mean Platelet Volume 10.9 fL (7.4-10.4); Monocytes # (auto) 0.84 K/uL (0.11-0.59); Monocytes % (auto) 11.4 %; Neutrophils # (auto) 4.36 K/uL (1.4-6.5); Neutrophils % (auto) 59.2 %; Platelet Count 268 K/uL (130-400); RDW Coefficient of Variation 13.8 % (11.5-14.5); RDW Standard Deviation 53.5 fL (36.4-46.3); Red Blood Count 3.39 M/uL (4.2-5.4); White Blood Count 7.37 K/uL (4.8-10.8)
[2021-10-20] MEDS: LEVOTHYROXINE SODIUM 75 MCG TABLET PO SCH (06:27)
[2021-10-20 06:29] LABS: BUN Creatinine Ratio 18.3 (10-20); Calcium 9.1 mg/dl (8.5-10.1); Creatinine Clr Calc Pharmacy 24.4 ml/min; Est GFR (African American) 26.6 ml/min; Potassium 3.5 mmol/L (3.5-5.1)
--- NOTE | 2021-10-20 07:10 | Hospitalist Progress Note ---
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 Suspected CHF exacerbation on chronic Combined Systolic and Diastolic CHF -Admission BNP 5971, decreased to 4264. -Placed fregoso catheter for I/O's. -Daily standing weights. Last one today 93kg. -Fluid restrict 1800ml and HH Low Na diet -Resume home Bumex 1mg BID PO in AM, monitor for need for further IV bumex -Echo 10/16/21 with EF 40-45% -Not currently on HERMELINDO/ARBs due to CKD -Continue Carvedilol 3.125mg qAM and 6.25mg qHS -S/P Biventricular device - notes she has not received any shocks to this date -Received 20mg IV total Lasix yesterday. Administered additional IV Lasix 40 mg today. Continue to monitor output. -Trend a.m. creatinine, reassess patient in the morning for improvement in her breathing. R and L Pleural Effusions -R > L pleural effusion noted on CXR -Patient notes history of requiring Thoracentesis -At this time do not feel that the effusion is the main cause of her SOB on exertion and believe it is secondary to CHF exacerbation -Will diurese as above, if no improvement consider Pulmonology consult for tap -Repeat CXR 10/16/2021: Re-demonstration of effusionno significant change from previous x-ray. -Received IV Lasix 20 mg yesterday (see above). Abdominal discomfort/belching -Symptoms present on admission; potentially related to patient's longstanding GERD. -Symptoms refractory to Mylanta, initial IV push famotidine 20 mg. -Urinalysis unremarkable. Continue to monitor. -Stopped IV famotidine, simethicone. Changed patient's pantoprazole to 40 mg twice daily. Added as needed Zofran for nausea. Hx Atrial Flutter/Fibrillation, Hx DVT -Continue Amiodarone -Continue Digoxin -Continue Carvedilol -Continue Eliquis 2.5mg BID -May have to consider treatment with Lovenox as patient has current hx of breast cancer, though with renal function at this time reduced, will continue on home Eliquis S/P L Internal Carotid Endarterectomy -Redone on 09/27/21 -Continue Brilinta -Continue Eliquis 2.5mg BID -Hold ASA as patient had not tolerated and has been holding on her own since 09/30/21 CAD -s/p NATY to mid LAD 10/2017 and NATY prox to mid LAD 10/17/2018 circumflex PCI 09/2019, mid circumflex 05/2019, ostial circumflex 12/2019 -Continue Eliquis 2.5mg BID -ASA on hold as above due to intolerance (GI upset), patient on Brilinta daily -Continue home Ranexa 500mg PO BID 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 GERD -Continue home protonix -Increased to 40 mg p.o. daily. DM2 -SSI and Basal bolus Dispo: Med/Surg Telemetry FEN: HH, Low Na diet, fluid restrict 1800ml DVT: Eliquis 2.5mg BID (may consider Lovenox if renal function improves) Code: DNR/DNI, per patient's Living Will as well she WOULD NOT want Dialysis (2) CKD (chronic kidney disease) stage 4, GFR 15-29 ml/min: (3) Pleural effusion: (4) Chronic combined systolic and diastolic CHF (congestive heart failure): (5) Breast cancer, right: Admission and Anticipated Discharge Date Admission Date: October 15, 2021 Subjective Patient seen at the bedside this morning. Physical Exam Constitutional: WD/WN, vitals as above Respiratory: normal respiratory effort, lungs clear to auscultation Cardiovascular: RRR, no murmur, no edema Results & Data Results & Data ([facility]) Vital Signs (Past 12 Hours) Vital Signs Temp Pulse Pulse Resp BP BP Pulse Ox 10/20/21 06:53 36.6 C 76 18 122/65 94 01/05/22 03:18 36.4 C L 85 15 106/62 95 10/20/21 00:00 80 10/19/21 23:11 36.6 C 75 18 129/71 93 10/19/21 19:44 36.6 C 97 H 18 130/79 97
[2021-10-20] MEDS: APIXABAN 2.5 MG TAB PO SCH (07:54)
[2021-10-20] MEDS: PANTOprazole 40 MG TAB PO SCH (07:54)
[2021-10-20] MEDS: TICAGRELOR 90 MG TAB PO SCH (07:54)
[2021-10-20] MEDS: carvediloL 3.125 MG TAB PO SCH (07:54)
[2021-10-20] MEDS: RANOLAZINE 500 MG ER TAB PO SCH (07:54)
[2021-10-20] MEDS: INSULIN GLARGINE SOLOSTAR 100 UNITS/ML 3 ML PEN SC SCH (07:55)
[2021-10-20] MEDS: INSULIN ASPART PER UNIT SC SCH ×2 (07:56→12:24)
[2021-10-20] MEDS ORDERED: BUMETANIDE 1 MG TAB PO SCH (10:45)
--- NOTE | 2021-10-20 20:08 | Discharge Summary ---
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 Patient of note had recent R breast partial mastectomy on 09/17/21 and a L carotid endarterectomy on 09/27/21 at which times her ASA, Eliquis, and Brilinta were held for 4 days prior and 3 days prior respectively. Some concern was noted for possible DVT/PE due to patient's history, current cancer status, and recent holding of her blood thinners. Patient notes that since her surgery on 09/27 she has had some SOB with exertion at baseline, though has felt that it acutely worsened around the holidays 6 days ago and then worsened again 3 days ago. She notes that she did have some ham around [place] and that her diet has not been as "good" as it normally would be. She did take an extra dose of Bumex as she had gained 3 lbs after and noted reduction of 2 lbs after the following day. She notes that 3 days ago as her SOB on exertion was worsening she took an extra dose of Bumex then as well, but felt she did not urinate as much as she normally would. She has continued her regular diuretic regiment otherwise the past 2 days with minimal improvement in her SOB. Currently patient notes that at rest she feels well and not short of breath, though even getting out of bed to use the bathroom makes her feel as though she can't catch her breath. She denies any fever, chills, chest pain, chest pressure, abdominal pain, headache, dysuria, NVD. 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%, COPD, DM2, DVT, GERD, CVA, HLD, HTN, Peripheral Artery Disease, Pulmonary Hypertension, Rheumatoid Arthritis Surg Hx: Appendectomy, Section, Hysterectomy with oophorectomy, B/L Cataract, Cholecystectomy, Angioplasty RLE, TAVER, R breast partial mastectomy, B/L Carotid endarterectomy Soc Hx: Denies tobacco, alcohol, illicit drug use Principal Diagnosis CHF Exacerbation Discharge Exam Constitutional WD/WN, vitals as above Eyes PERRL, conjunctivae normal, anicteric sclerae Respiratory normal respiratory effort, lungs clear to auscultation Cardiovascular RRR, no murmur, no edema Gastrointestinal (Abdomen) normal bowel sounds, soft, nontender, no hepatosplenomegaly Discharge Data Allergies Allergy/AdvReac Type Severity Reaction Status Date / Time adhesive Allergy Intermediate REDNESS Verified 10/22/21 10:06 AND IRRITATION FROM PAIN PATCH, TAPE latex Allergy Intermediate ALLERGIC Verified 10/22/21 10:06 TO LATEX TAPE/RASH/ITCHING morphine Allergy Intermediate swelling Verified 10/22/21 10:06 nausea vomiting olmesartan Allergy Unknown UNKNOWN Verified 10/22/21 10:06 benzonatate AdvReac Intermediate confusion Verified 10/22/21 10:06 [From Tessalchemo Perlluis fernando] dulaglutide [From Trulicity] AdvReac Intermediate AFFECTS Verified 10/22/21 10:06 MUSCLES exenatide [From Byetta] AdvReac Intermediate Diarrhea Verified 10/22/21 10:06 ezetimibe AdvReac Intermediate MUSCLE Verified 10/22/21 10:06 ACHES glipizide AdvReac Intermediate Diarrhea Verified 10/22/21 10:06 glyburide AdvReac Intermediate Diarrhea Verified 10/22/21 10:06 lisinopril AdvReac Intermediate LIGHTHEADED Verified 10/22/21 10:06 AND DIZZY losartan AdvReac Intermediate dizziness Verified 10/22/21 10:06 metformin AdvReac Intermediate Diarrhea Verified 10/22/21 10:06 pioglitazone AdvReac Intermediate DIARRHEA Verified 10/22/21 10:06 NAUSEA sitagliptin [From Januvia] AdvReac Intermediate Diarrhea Verified 10/22/21 10:06 [id number] Reductase AdvReac Intermediate myalgias Verified 10/22/21 10:06 Inhibitor and [Hxxxzjy-Dwl-Pdp Reductase weakness Inhibitor] aspirin AdvReac Mild GI SYMPTOMS Verified 10/22/21 10:06 Consultations 10/15/21 19:40 ED Decision to Admit Stat Ordered Studies 10/15/21 19:35 US venous doppler [facility] Stat Hospital Course (1) SOB (shortness of breath): Patient is a pleasant, medically complex, 81F with PMHx Aortic stenosis s/p TAVR 2019, Atrial Flutter, Carotid Artery stenosis s/p endarterectomy b/l, s/p ICD placement, Breast cancer, CAD s/p multiple stents, 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 Suspected CHF exacerbation on chronic Combined Systolic and Diastolic CHF -Admission BNP 5971, decreased to 4264. -Daily standing weights. Last one today 93kg. -Echo 10/16/21 with EF 40-45% -Received Lasix 20-40mg IV most days. -S/P Biventricular device - notes she has not received any shocks to this date -Around 7.5L output throughout stay ~1.8L intake. -Patient felt 90% back to baseline and ready to go home day of discharge. Told patient to follow up with cardiology within 7 days and heart failure clinic. R and L Pleural Effusions -R > L pleural effusion noted on CXR -Patient notes history of requiring Thoracentesis -At this time do not feel that the effusion is the main cause of her SOB on exertion and believe it is secondary to CHF exacerbation -Repeat CXR 10/16/2021: Re-demonstration of effusionno significant change from previous x-ray. Abdominal discomfort/belching -Symptoms present on admission; potentially related to patient's longstanding GERD. -Symptoms refractory to Mylanta, initial IV push famotidine 20 mg. -Urinalysis unremarkable. -Stopped IV famotidine, simethicone. Changed patient's pantoprazole to 40 mg twice daily. Added as needed Zofran for nausea. Hx Atrial Flutter/Fibrillation, Hx DVT -Patient within normal limits for heart rate during stay (<100 bpm) on tele. (2) CKD (chronic kidney disease) stage 4, GFR 15-29 ml/min: (3) Pleural effusion: (4) Chronic combined systolic and diastolic CHF (congestive heart failure): (5) Breast cancer, right: Total Time Total Time Spent Total Time Spent (In Minutes): Please see attending attestation. Discharge Plan Discharge Items Patient Disposition: Home - Self-Care Reason For Visit: SOB, CHF EXACERBATION Discharge Diagnosis: CHF Exacerbation Activity: Per Instructions section Non-emergency contact: Primary Care Provider and Director Of Retail Marketing Call non-emergency contact if: your symptoms worsen, your pain is worsening and your temperature is above 101 Follow-up/Referrals: Zane Browning CRNP [Nurse Practitioner] - 11/03/21 8:20 am (Dr. Alvarenga is unavailable. Please follow up with SKYLAR Felton on Monday11/03/21 at 8:20 am. Please arrive to the office at 8:05 am for your appointment. If you are unable to keep this appointment, please call the office to reschedule at [phone]. ) Lei Irizarry Jr, MD, [facility] [Physician] - 10/28/21 11:30 am Ebony Alvarenga DO [Primary Care Provider] - (Dr. Alvarenga is unavailable. Follow up appointment scheduled with SKYLAR Felton.) Petey Sanchez MD [Physician] - 10/25/21 1:00 pm Latrice Mcmanus PA-C [Physician Supervisor Molding] - 11/11/21 10:30 am Diet: Heart Healthy Addtl Attending Provider Instructions: A discharge summary will be sent to your primary care physician to ensure continuity of care. You came in to the hospital for an exacerbation of your heart failure. This was caused by fluid overload to your heart. In the hospital you were kept on close monitor for your fluid in and out. After treatment with diuretics and monitoring your fluid, your shortness of breath improved. The most important action to prevent this from occuring again is to continue monitoring and limiting your salt intake and following up with your design printer balloon. If you find you are getting short of breath please contact the heart failure clinic you go to so that they may evaluate you and try any intervention necessary. Follow-up: * You should be seen by your primary physician within the next week. * You should bee seen by your design printer balloon within the next 7 days. You have an appointment scheduled for 10/28/2021. Medications: Your medication list has been reviewed and reconciled upon discharge to ensure accuracy and continuity of care. An updated list of all your medications is included with your hospital discharge paperwork. Please review this list closely, and make note of any changes. Take your medications as instructed; do not skip a dose of your medicines. Make sure all of your doctors know every medicine you are taking (including [id number]-[id number] medicines, vitamins, and supplements). let your primary care provider know before taking any new medicines because some of these may interact with your current medications, or may make your symptoms worse. CONTACT YOUR PRIMARY CARE PROVIDER if you experience any of the following: * Fevers or shaking chills * Shortness of breath not relieved by inhalers, fainting * Sudden abdominal distension not relieved by catheterization. * Difficulty following your treatment plan, or difficulty taking medications CALL 911 OR GO TO THE EMERGENCY DEPARTMENT if you experience any of the following: * Sudden, severe abdominal pain or nausea/vomiting * Severe chest pain, or chest pain that radiates (moves) to your jaw or arm * Sudden, severe shortness of breath or difficulty breathing It was was our pleasure taking care of you here at [facility] . Thank you for allowing us to participate in your care. Pending Studies at Discharge: No Stand-Alone Forms: My [facility], Smoking Cessation Medications and DC Order Prescriptions: Continued digoxin 125 mcg (0.125 mg) tablet 125 mcg PO 3XWK Qty: 36 RF: 1 cholecalciferol (vitamin D3) 25 mcg (1,000 unit) capsule 1,000 unit PO QAM RF: 0 bumetanide 1 mg tablet 1 mg PO BID Qty: 180 RF: 3 calcitriol [Rocaltrol] 0.25 mcg capsule 0.25 mcg PO 3XWK Qty: 12 RF: 1 trazodone 50 mg tablet 50 mg PO HS PRN (Reason: insomnia) Qty: 90 RF: 1 levothyroxine 75 mcg tablet 75 mcg PO QAM Qty: 90 RF: 1 Eliquis 2.5 mg tablet 2.5 mg PO BID Qty: 60 RF: 11 magnesium oxide 400 mg magnesium capsule 400 mg PO QPM Qty: 90 RF: 0 albuterol sulfate 90 mcg/actuation HFA aerosol inhaler 2 puff INHALATION Q6H PRN (Reason: Shortness Of Breath Or Wheezing) Qty: 8 RF : 1 ferrous sulfate [Feosol] 325 mg (65 mg iron) tablet 325 mg PO QAM RF: 0 potassium gluconate 595 mg (99 mg) tablet 595 mg PO QAM RF: 0 multivitamin [Multiple Vitamins] tablet 1 tab PO QAM RF: 0 vitamin E 400 unit capsule 400 unit PO QAM RF: 0 polyethylene glycol 3350 [Miralax] 17 gram/dose Powder 17 g PO HS RF: 0 carvedilol [Coreg] 6.25 mg Tablet 6.25 mg PO HS RF: 0 carvedilol [Coreg] 3.125 mg tablet 3.125 mg PO QAM RF: 0 amiodarone [Pacerone] 200 mg tablet 200 mg PO QPM RF: 0 garlic 1,000 mg capsule 1,000 mg PO QPM RF: 0 omega-3 fatty acids 1,000 mg Capsule 1,000 mg PO DAILY RF: 0 ranolazine [Ranexa] 500 mg tablet extended release 12 hr 500 mg PO BID RF: 0 Brilinta 90 mg tablet 90 mg PO BID Qty: 60 RF: 2 No Action pantoprazole [Protonix] 40 mg tablet,delayed release (DR/EC) 40 mg PO BID Qty: 180 RF: 1 insulin asp prt-insulin aspart [Novolog Mix 70-30 U-100 Insuln] 100 unit/mL (70-30) solution 15 - 30 unit SUBCUT AMPM Qty: 30 RF: 1 Discharge Orders: Discharge Order (Routine); Ordered 10/20/21 Ordered By: Brayden Gillis Admission Data Admit Date/Time: 10/15/21 20:52 Attending Provider: Bhanu Rueda Admit Provider: John Mg Primary Care Provider: Ebony Alvarenga Other Providers: Fracisco Dan Other Interventions: Discharge Summary Assessment (RN) Last Done: 10/20/21 12:05 Supervising Physician Co-Signing Physician Notes Pt seen and examined in concert with Dr. Gillis . In agreement with the documented findings as noted in the resident documentation with any exceptions or additions as noted here. Patient resting in bed sitting up to relieve abdominal pain which is postprandial and improved following famotidine (though also had ?nausea with it, so patient prefers PPI). Continued improvement in SOB. Weight close to dry weight. On examination, S1/S2 nl RRR no MCG. CTAB. Abd TTP epigastrically and b/l LQ/ND BS+ve HFrEF - net negative. Improved with IV diuretics. TRACY - at baseline, avoid other nephrotoxic interventions Abdominal pain, subacute - d/c famotidine, add extra PPI dose this PM and consider further evaluation vs. outpatient GI based on response Else see resident documentation as noted. Resident Activity Tracking Resident Involvement: Resident Care Provided Care Provided: Adult Hospital Medicine
--- NOTE | 2021-10-24 15:47 | Billing Data ---
Date of Service October 20, 2021 Coding Level of Care Code D/C DAY MANAGEMENT >30 MINS Time Spent (min) 32
--- NOTE | 2021-11-08 11:47 | Coding Query ---
CONGESTIVE HEART FAILURE To Promote full compliance with coding requirements relating to patient care, physician participation is requested in all cases of oil lease buyer uncertainty. Please assist us with the following questions. A diagnosis of Congestive Heart Failure Exacerbation is documented in the patient's medical record. There is documentation of Combined Systolic and Diastolic CHF and then supervising physician documentation of HFrEF (Systolic CHF). Due to conflicting documentation and to accurately code this diagnosis and to compare patient severity, we ask that you specify the type of heart failure exacerbation by placing an X within the parenthesis (x). ( ) SYSTOLIC HEART FAILURE - HFrEF ( ) DIASTOLIC HEART FAILURE - HFpEF (x ) COMBINED SYSTOLIC AND DIASTOLIC HEART FAILURE - HFrEF and HFpEF Thank you Jana ESPINOSA
== END 2021-10-20 13:29 | disposition home or self-care (01) | DRG 291 ==
LOC: ED 18:02 → EDINP 20:52 → SUATTDRO 20:52 → EDINP 23:00 → 2S 10-17 04:48

== ENCOUNTER 2021-11-24 07:45 | Inpatient (IN) ==
[2021-11-24 08:57] LABS: Basophils # (auto) 0.01 K/uL (0-0.2); Basophils % (auto) 0.1 %; Eosinophils # (auto) 0.09 K/uL (0-0.5); Hematocrit (blood only) 35.5 % (37-47); Hemoglobin 11.2 g/dL (12.0-16.0); Immature Granulocytes # (auto) 0.01 K/uL (0.00-0.02); Immature Granulocytes % (auto) 0.1 %; Lymphocytes # (auto) 1.41 K/uL (1.2-3.4); Lymphocytes % (auto) 16.4 %; Mean Corpuscular Hemoglobin 32.1 pg (25-34); Mean Corpuscular Hgb Conc 31.5 g/dL (32-36); Mean Corpuscular Volume 101.7 fL (80-100); Mean Platelet Volume 11.1 fL (7.4-10.4); Monocytes # (auto) 0.73 K/uL (0.11-0.59); Monocytes % (auto) 8.5 %; Neutrophils # (auto) 6.34 K/uL (1.4-6.5); Neutrophils % (auto) 73.9 %; Platelet Count 208 K/uL (130-400); RDW Coefficient of Variation 14.6 % (11.5-14.5); RDW Standard Deviation 54.6 fL (36.4-46.3); Red Blood Count 3.49 M/uL (4.2-5.4); White Blood Count 8.59 K/uL (4.8-10.8)
--- NOTE | 2021-11-24 09:03 | XRay Report ---
XR chest 1V portable CLINICAL HISTORY: weakness TECHNIQUE: Single frontal radiograph of the chest was obtained. Comparison: Comparison is made to chest 2 views 11/15/2021 FINDINGS: Stable implanted pacemaker defibrillator. Cardiomegaly is noted. Right lower lung airspace opacity is seen. Small bilateral pleural effusions are seen, right greater than left. IMPRESSION: Bilateral pleural effusions are seen. Right lower lung airspace opacity may represent atelectasis, as piration, and/or pneumonia. ACT 112: Negative or not required by law. Electronically signed by: Gato Nagel M.D. 11/24/2021 9:01 AM
[2021-11-24 09:21] LABS: Alanine Aminotransferase 24 U/L (7-52); Albumin Globulin Ratio 1.1 (0.9-2); Albumin Level 3.5 gm/dl (3.4-5.0); Alkaline Phosphatase 111 U/L (34-104); Anion Gap 8 (3-11); Aspartate Aminotransferase 24 U/L (13-39); BUN Creatinine Ratio 18.9 (10-20); Bilirubin,Total 0.6 mg/dl (0.2-1.0); Blood Urea Nitrogen 39 mg/dl (6-23); Calcium 8.8 mg/dl (8.5-10.1); Carbon Dioxide 31 mmol/L (21-32); Chloride 97 mmol/L (98-107); Est GFR (African American) 25.4 ml/min; Est GFR (Non-African American) 21.9 ml/min; Globulin 3.1 gm/dl (2.5-4.0); Glucose 70 mg/dl (70-99(Fasting)); Potassium 3.6 mmol/L (3.5-5.1); Sodium 136 mmol/L (136-145); Total Protein 6.6 gm/dl (6.0-8.3)
--- NOTE | 2021-11-24 09:22 | Emergency Department Note ---
History of Present Illness General Chief complaint: Fall Stated complaint: FALLS Time Seen by Provider: 11/24/21 07:55 History of Present Illness Maximum Pain Intensity: 4 81-year-old female presents to the ED with a chief complaint of bilateral knee pain. The patient states that she fell on Monday evening. She states that she was able to get up with a walker but by Monday morning she was having more difficulty and finally yesterday she was having even more difficulty getting up and getting around. Today her daughter brought her in for a cardioversion for atrial flutter. The patient had significant difficulty getting to the hospital today. She is having significant bilateral knee pain and swelling related to her fall. She has bruising and ecchymosis to her knees and some swelling. They did not feel comfortable doing the cardioversion today and recommended that she be seen in the ED. The patient feels like she cannot go home because of her pain and difficulty walking. Did not complain of any head pain or striking her head. No loss of consciousness. No chest pains or shortness of breath. She states that her arms are not strong enough to hold her up using the walker because her legs want to give out. Her original fall occurred when she was getting off the chair and her left leg slid out from under her going 1 direction and the other leg went the opposite direction. Home Medications Medication Instructions Recorded Confirmed Type magnesium oxide 400 mg PO QPM #90 cap 04/01/19 11/19/21 Rx multivitamin (Multiple Vitamins) 1 tab PO QAM 05/19/19 11/19/21 History polyethylene glycol 3350 17 17 g PO HS 03/29/20 11/19/21 History gram/dose oral powder (Miralax) vitamin E 400 unit capsule 400 unit PO QAM 03/29/20 11/19/21 History ferrous sulfate 325 mg (65 mg 325 mg PO 3XWK 10/27/20 11/19/21 History iron) tablet (Feosol) carvedilol 6.25 mg tablet (Coreg) 6.25 mg PO HS 04/02/21 11/19/21 History cholecalciferol (vitamin D3) 25 1,000 unit PO QAM cap 05/17/21 11/19/21 History mcg (1,000 unit) capsule carvedilol 3.125 mg tablet (Coreg) 3.125 mg PO QAM tab 07/02/21 11/19/21 History potassium gluconate 595 mg (99 mg) 595 mg PO QAM 07/02/21 11/19/21 History tablet trazodone 50 mg tablet 50 mg PO HS PRN #90 tab 09/03/21 11/19/21 Rx garlic 1,000 mg capsule 1,000 mg PO QPM 09/07/21 11/19/21 History levothyroxine 75 mcg tablet 75 mcg PO QAM #90 tab 09/13/21 11/19/21 Rx ranolazine 500 mg tablet,extended 500 mg PO BID 09/16/21 11/19/21 History release,12 hr (Ranexa) ticagrelor 90 mg tablet (Brilinta) 90 mg PO BID #60 tab 09/19/21 11/19/21 Rx apixaban 2.5 mg tablet (Eliquis) 2.5 mg PO BID #60 tab 09/20/21 11/19/21 Rx amiodarone 200 mg tablet (Pacerone) 200 mg PO QPM 09/27/21 11/19/21 History omega-3 fatty acids 1,000 mg 1,000 mg PO QPM 10/15/21 11/19/21 History capsule pantoprazole 40 mg tablet,delayed 40 mg PO BID #180 tab 10/22/21 11/19/21 Rx release (Protonix) calcitriol 0.25 mcg capsule 0.25 mcg PO 3XWK #12 cap 10/25/21 11/19/21 Rx (Rocaltrol) digoxin 125 mcg (0.125 mg) tablet 125 mcg PO 3XWK #36 tab 10/25/21 11/19/21 Rx bumetanide 1 mg tablet 1 mg PO BID tab 10/27/21 11/19/21 History insulin aspar prt-insulin aspart 15 - 30 unit SUBCUT AMPM ml 10/27/21 11/19/21 History 100 unit/mL (70-30) subcutaneous soln (Novolog Mix 70-30 U-100 Insuln) anastrozole 1 mg tablet (Arimidex) 1 mg PO QAM 11/11/21 11/19/21 History ondansetron HCl 4 mg tablet 4 mg PO Q8H PRN #30 tab 11/16/21 11/19/21 Rx amiodarone 200 mg tablet mg 11/24/21 History Allergies Allergy/AdvReac Type Severity Reaction Status Date / Time adhesive Allergy Intermediate REDNESS Verified 11/19/21 10:08 AND IRRITATION FROM PAIN PATCH, TAPE latex Allergy Intermediate ALLERGIC Verified 11/19/21 10:08 TO LATEX TAPE/RASH/ITCHING morphine Allergy Intermediate swelling Verified 11/19/21 10:08 nausea vomiting olmesartan Allergy Unknown UNKNOWN Verified 11/19/21 10:08 benzonatate AdvReac Intermediate confusion Verified 11/19/21 10:08 [From Tessalon Perles] dulaglutide [From Trulicity] AdvReac Intermediate AFFECTS Verified 11/19/21 10:08 MUSCLES exenatide [From Byetta] AdvReac Intermediate Diarrhea Verified 11/19/21 10:08 ezetimibe AdvReac Intermediate MUSCLE Verified 11/19/21 10:08 ACHES glipizide AdvReac Intermediate Diarrhea Verified 11/19/21 10:08 glyburide AdvReac Intermediate Diarrhea Verified 11/19/21 10:08 lisinopril AdvReac Intermediate LIGHTHEADED Verified 11/19/21 10:08 AND DIZZY losartan AdvReac Intermediate dizziness Verified 11/19/21 10:08 metformin AdvReac Intermediate Diarrhea Verified 11/19/21 10:08 pioglitazone AdvReac Intermediate DIARRHEA Verified 11/19/21 10:08 NAUSEA sitagliptin [From Januvia] AdvReac Intermediate Diarrhea Verified 11/19/21 10:08 Yfacsst-SFS-NsT Reductase AdvReac Intermediate myalgias Verified 11/19/21 10:08 Inhibitor and [Khrtavp-Tuc-Sxi Reductase weakness Inhibitor] aspirin AdvReac Mild GI SYMPTOMS Verified 11/19/21 10:08 Past Med/Surg History Medical History Anemia due to chronic kidney disease Antiplatelet or antithrombotic long-term use Aortic stenosis, severe S/p TAVR 10/2019 Atrial flutter On Eliquis Bilateral carotid artery stenosis H/o bilateral CEAs in 2016 Per 07/2021 vascular note- carotid ultrasound from office visit showed patent right CEA with velocities suggesting 50-59% stenosis restenosis Patent left CEA with velocities suggesting 99% restenosis - had re-do of left CEA 09/27/21 Biventricular ICD (implantable cardioverter-defibrillator) in place (04/30/20) Med[employer] implanted 04/30/2020. Capped right ventricular pacing lead Last check 09/2021 Breast cancer, right Right breast mastectomy 09/17/21 at [facility] CAD (coronary artery disease) F/U DR CUEVA S/p NATY x 1 to Cx in 2019; NATY to ostial LM 01/10/20 Chronic combined systolic and diastolic CHF (congestive heart failure) EF 40% per 10/16/21 ECHO Chronic kidney disease STAGE IV-F/U DR SALINAS Chronic obstructive pulmonary disease, unspecified Breathing stable Depression Diabetes mellitus, type 2 Glucose fluctuates DVT (deep venous thrombosis) LOWER LEG 2019 GERD (gastroesophageal reflux disease) History of CVA (cerebrovascular accident) Had RUE weakness and numbness after 09/17/21 breast surgery- CT scan of head negative; unable to do MRI due to ICD Per PCP records 10/22/21= "[place] her post op RUE sx related to possible small stroke/TIA" HLD (hyperlipidemia) HTN (hypertension) Hypothyroidism Insomnia Ischemic cardiomyopathy Left bundle branch block Nausea and vomiting after administration of anesthetic agent severe PONV s/p Left carotid surgery 09/27/21 at [facility] NSTEMI (non-ST elevated myocardial infarction) Most recent 12/2019 (mild per patient) PAD (peripheral artery disease) S/p STEAM HAND and stenting of right SFA, and STEAM HAND of left SFA and common femoral artery PAF (paroxysmal atrial fibrillation) Pulmonary hypertension RVSP 40-45mmHg on 10/2020 ECHO Rheumatoid arthritis No medications Followed with rheum in the past- no recent issues Right knee pain Secondary hyperparathyroidism of renal origin SOB (shortness of breath) on exertion Spondylosis Subclavian artery stenosis Surgical History H/O colonoscopy H/O heart artery stent H/O: section History of appendectomy History of cardiac cath TOTAL 6? STENTS- 2018 and 2019 History of cataract surgery right and left History of cholecystectomy History of hysterectomy History of left-sided carotid endarterectomy (09/27/21) redo L CEA, Dr Bateman History of oophorectomy S/P angioplasty (02/03/21) STEAM HAND L SFA S/P carotid endarterectomy B/l 2016 S/P coronary artery stent placement (10/2017) NATY to mid LAD S/P coronary artery stent placement (10/2018) NATY prox mid LAD 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) S/P thoracentesis (03/2020) b/l d/t CHF Status post partial mastectomy of right breast (09/17/21) 09/17/21 - Done under [facility] with LMA #4. Atraumatic LMA insertion. Magnet placed secondary to pacemaker. Right Breast Partial Mastectomy with [place] [employer] Localization, Right Axillary [place] Lymph Node Biopsy(Right) - Hua Acosta DO Family History Daughter Coronary heart disease Diabetes Mother Diabetes Family history of hypercholesterolemia Myocardial infarction Hypertension Stroke Brother Colorectal cancer Father Accident Brother Diabetes Family/Other Myocardial infarction Son Coronary heart disease Hypertension Other Pacemaker Denies family history of Ovarian cancer Prostate cancer Breast cancer Social History Smoking Status: Never smoker Second Hand Exposure: Yes (spouse smoked); Hx Alcohol Use: No Hx Substance Use: No Preferred Language: Irish Communication Ability: Effective Visual Impairment: Limited Hearing Ability: Use of Hearing Aid [employer]ent [employer] Sourcer Required: No Beliefs That Will Affect Care: None marital status: / marital status details: passed 2000 Current Living Situation: Alone current occupational status: retired 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 How many Children do You have: 2 Feels Safe at Home: Yes caffeine: Yes (1 cup/day) during the past year weight has: remained stable Seatbelt Use: always Assistive Devices: Cane, Denture - Upper, Denture - Lower, Glasses and Hearing Aid - Bilateral Review of Systems A total of 10 systems reviewed and were otherwise negative Physical Exam Vital Signs Vital Signs - 24 hr 11/24/21 07:58 11/24/21 08:00 11/24/21 08:01 Temperature Temperature Source Pulse Rate 67 68 64 Pulse Rate from SpO2 Sensor 66 67 66 Pulse Rhythm Pulse Strength Respiratory Rate 17 18 16 Respiratory Effort / Characteristics Respiratory Depth Respiratory Pattern Blood Pressure 153/88 H Blood Pressure Mean 109 Blood Pressure Position Pulse Oximetry 97 97 97 Oxygen Delivery Method Sepsis Recent Fever Within 48 Hours Sepsis New/Unexplained Change in Mental Status Sepsis Action Taken by Nursing 11/24/21 08:30 11/24/21 08:31 11/24/21 08:45 Temperature 36.8 C Temperature Source Oral Pulse Rate 66 61 67 Pulse Rate from SpO2 Sensor 67 62 Pulse Rhythm Regular Pulse Strength Normal Respiratory Rate 17 14 20 Respiratory Effort / Characteristics Non-Labored Spontaneous Respiratory Depth Normal Respiratory Pattern Regular Blood Pressure 177/76 H Blood Pressure Mean 151 109 Blood Pressure Position Sitting Pulse Oximetry 96 93 94 Oxygen Delivery Method Room Air Sepsis Recent Fever Within 48 Hours No Sepsis New/Unexplained Change in Mental Status N/A Sepsis Action Taken by Nursing No Action Required 11/24/21 09:00 11/24/21 09:30 11/24/21 10:00 Temperature Temperature Source Pulse Rate 63 69 69 Pulse Rate from SpO2 Sensor 62 70 69 Pulse Rhythm Pulse Strength Respiratory Rate 18 16 17 Respiratory Effort / Characteristics Respiratory Depth Respiratory Pattern Blood Pressure Blood Pressure Mean Blood Pressure Position Pulse Oximetry 95 96 Oxygen Delivery Method Sepsis Recent Fever Within 48 Hours Sepsis New/Unexplained Change in Mental Status Sepsis Action Taken by Nursing CONSTITUTIONAL/VITAL SIGNS: Reviewed / noted above. GENERAL: Non-toxic in appearance. INTEGUMENTARY: Warm, dry, and [place]. HEAD: Normocephalic. EYES: without scleral icterus or trauma. ENT/OROPHARYNX: clear and moist. RESPIRATORY: Clear to auscultation bilaterally. No increased work of breathing. CARDIOVASCULAR: Regular rate and rhythm. GI/ABDOMEN: Soft and nontender. No organomegaly or pulsatile mass. EXTREMITIES: Warm and well perfused. The patient has bilateral knee ecchymosis and swelling. She has limited range of motion due to pain. BACK: No CVA tenderness. NEUROLOGICAL: Intact without focal deficits. PSYCHIATRIC: normal affect. MUSCULOSKELETAL: Normally developed with good muscle tone. TRIAGE NURSING DOCUMENTATION REVIEWED. Medical Decision Making Differential Diagnosis Differential includes close head injury, intracranial bleed, facial trauma, cervical spine trauma, chest and thoracic trauma, abdominal and intra-abdominal trauma, spine neurologic trauma, extremity trauma. Medical Records Attestation: I reviewed the patient's medical records. Home Medications Current Medication List: was personally reviewed by me Laboratory Data Attestation: I reviewed the patient's lab results. Result diagrams: 11/24/21 08:42 11/24/21 08:42 Lab Results 11/24/21 11/24/21 11/24/21 Range/Units 08:42 08:42 08:42 WBC 8.59 (4.8-10.8) K/uL RBC 3.49 L (4.2-5.4) M/uL Hgb 11.2 L (12.0-16.0) g/dL Hct 35.5 L (37-47) % MCV 101.7 H (80-100) fL MCH 32.1 (25-34) pg MCHC 31.5 L (32-36) g/dL RDW Std Deviation 54.6 H (36.4-46.3) fL RDW Coeff of Manuela 14.6 H (11.5-14.5) % Plt Count 208 (130-400) K/uL MPV 11.1 H (7.4-10.4) fL Immature Gran % (Auto) 0.1 % Neut % (Auto) 73.9 % Lymph % (Auto) 16.4 % [place] % (Auto) 8.5 % Eos % (Auto) 1.0 % Baso % (Auto) 0.1 % Neut # (Auto) 6.34 (1.4-6.5) K/uL Lymph # (Auto) 1.41 (1.2-3.4) K/uL [place] # (Auto) 0.73 H (0.11-0.59) K/uL Eos # (Auto) 0.09 (0-0.5) K/uL Baso # (Auto) 0.01 (0-0.2) K/uL Immature Gran # (Auto) 0.01 (0.00-0.02) K/uL Sodium 136 (136-145) mmol/L Potassium 3.6 (3.5-5.1) mmol/L Chloride 97 L (98-107) mmol/L Carbon Dioxide 31 (21-32) mmol/L Anion Gap 8 (3-11) BUN 39 H (6-23) mg/dl Creatinine 2.06 H (0.6-1.2) mg/dl Est Cr Clr Drug Dosing Not Reportable Est GFR ( Amer) 25.4 ml/min Est GFR (Non-Af Amer) 21.9 ml/min BUN/Creatinine Ratio 18.9 (10-20) Glucose 70 (70-99(Fasting)) mg/dl Calcium 8.8 (8.5-10.1) mg/dl Total Bilirubin 0.6 (0.2-1.0) mg/dl AST 24 (13-39) U/L ALT 24 (7-52) U/L Alkaline Phosphatase 111 H (34-104) U/L Total Protein 6.6 (6.0-8.3) gm/dl Albumin 3.5 (3.4-5.0) gm/dl Globulin 3.1 (2.5-4.0) gm/dl Albumin/Globulin Ratio 1.1 (0.9-2) TSH 2.340 (0.300-4.500) uIu/ml Imaging Data Radiologist's Impression: Knee CT 11/24/21 08:15 CT knee LT wo con, CT knee RT wo con CLINICAL HISTORY: fall, pain TECHNIQUE: Multidetector row helical CT of the bilateral knees was performed without intravenous contrast. Coronal and sagittal reformations were obtained. Automated dose lowering techniques and/or adjustment according to patient size were utilized for this examination. Comparison: None available at the time of this dictation. FINDINGS: The osseous structures are without fracture or dislocation. Degenerative changes are seen in the bilateral knee joints most prominent in the medial compartments. Calcifications are noted in the right PCL. No joint effusion is seen. The soft tissues are unremarkable. IMPRESSION: No evidence of acute fracture or dislocation. Degenerative changes as above. ACT 112: Negative or not required by law. Electronically signed by: Gato Nagel M.D. 11/24/2021 9:[address] 11/24/21 08:15 CT knee LT wo con, CT knee RT wo con CLINICAL HISTORY: fall, pain TECHNIQUE: Multidetector row helical CT of the bilateral knees was performed without intravenous contrast. Coronal and sagittal reformations were obtained. Automated dose lowering techniques and/or adjustment according to patient size were utilized for this examination. Comparison: None available at the time of this dictation. FINDINGS: The osseous structures are without fracture or dislocation. Degenerative changes are seen in the bilateral knee joints most prominent in the medial compartments. Calcifications are noted in the right PCL. No joint effusion is seen. The soft tissues are unremarkable. IMPRESSION: No evidence of acute fracture or dislocation. Degenerative changes as above. ACT 112: Negative or not required by law. Electronically signed by: Gato Nagel M.D. 11/24/2021 9:26 AM Chest X-Ray 11/24/21 08:19 XR chest 1V portable CLINICAL HISTORY: weakness TECHNIQUE: Single frontal radiograph of the chest was obtained. Comparison: Comparison is made to chest 2 views 11/15/2021 FINDINGS: Stable implanted pacemaker defibrillator. Cardiomegaly is noted. Right lower lung airspace opacity is seen. Small bilateral pleural effusions are seen, right greater than left. IMPRESSION: Bilateral pleural effusions are seen. Right lower lung airspace opacity may represent atelectasis, aspiration, and/or pneumonia. ACT 112: Negative or not required by law. Electronically signed by: Gato Nagel M.D. 11/24/2021 9:01 AM ECG Data Additional Comments: Twelve-lead EKG: Per my interpretation there is a ventricular paced rhythm at a rate of 65. No ST elevation. Normal QTC. No PVCs. MDM Narrative 81-year-old female presents to the ED with a chief complaint of bilateral knee pain that is progressively worsened since her fall 3 days ago. She is unable to get around or walk. She has bilateral knee pain on exam with ecchymosis and some swelling. CBC was unremarkable. Chemistry panel shows chronic renal insufficiency otherwise nothing acute. Chest x-ray shows bilateral pleural effusions, right lower lung airspace opacity may represent atelectasis, aspiration and/or pneumonia. Clinically this is probably atelectasis and not pneumonia or aspiration. CT scan of the bilateral knees shows degenerative changes but no acute fractures. The patient's knee pain is likely related to contusions and possibly ligamentous strain based on the mechanism of her injury which was a leg split the cause of the fall. Because the patient lives alone and has significant difficulty with not only ambulation but just moving her legs, she will be seen by the hospitalist for further evaluation and care. Impression & Plan Contusion of knee, left, Contusion of knee, right, Knee strain, Ambulatory dysfunction Discharge Plan Visit Data Chief Complaint: Fall Stated Complaint: FALLS ED Provider: Yao Fields Discharge Problem: Contusion of knee, left, Contusion of knee, right, Knee strain, Ambulatory dysfunction Patient Disposition: Being Evaluated by Hospitalist Forms Stand Alone Forms: My [facility] Prescriptions Prescriptions: No Action bumetanide 1 mg tablet 1 mg PO BID RF: 0 insulin asp prt-insulin aspart [Novolog Mix 70-30 U-100 Insuln] 100 unit/mL (70-30) solution 15 - 30 unit SUBCUT AMPM RF: 0 cholecalciferol (vitamin D3) 25 mcg (1,000 unit) capsule 1,000 unit PO QAM RF: 0 trazodone 50 mg tablet 50 mg PO HS PRN (Reason: insomnia) Qty: 90 RF: 1 levothyroxine 75 mcg tablet 75 mcg PO QAM Qty: 90 RF: 1 Eliquis 2.5 mg tablet 2.5 mg PO BID Qty: 60 RF: 11 digoxin 125 mcg (0.125 mg) tablet 125 mcg PO 3XWK Qty: 36 RF: 1 calcitriol [Rocaltrol] 0.25 mcg capsule 0.25 mcg PO 3XWK Qty: 12 RF: 1 magnesium oxide 400 mg magnesium capsule 400 mg PO QPM Qty: 90 RF: 0 ferrous sulfate [Feosol] 325 mg (65 mg iron) tablet 325 mg PO 3XWK RF: 0 anastrozole [Arimidex] 1 mg tablet 1 mg PO QAM RF: 0 potassium gluconate 595 mg (99 mg) tablet 595 mg PO QAM RF: 0 ondansetron HCl 4 mg tablet 4 mg PO Q8H PRN (Reason: nausea and vomiting) Qty: 30 RF: 0 pantoprazole [Protonix] 40 mg tablet,delayed release (DR/EC) 40 mg PO BID Qty: 180 RF: 1 multivitamin [Multiple Vitamins] tablet 1 tab PO QAM RF: 0 vitamin E 400 unit capsule 400 unit PO QAM RF: 0 polyethylene glycol 3350 [Miralax] 17 gram/dose Powder 17 g PO HS RF: 0 carvedilol [Coreg] 6.25 mg Tablet 6.25 mg PO HS RF: 0 carvedilol [Coreg] 3.125 mg tablet 3.125 mg PO QAM RF: 0 amiodarone [Pacerone] 200 mg tablet 200 mg PO QPM RF: 0 garlic 1,000 mg capsule 1,000 mg PO QPM RF: 0 omega-3 fatty acids 1,000 mg Capsule 1,000 mg PO QPM RF: 0 amiodarone 200 mg tablet RF: 0 ranolazine [Ranexa] 500 mg tablet extended release 12 hr 500 mg PO BID RF: 0 Brilinta 90 mg tablet 90 mg PO BID Qty: 60 RF: 2 Referrals Referrals: Ebony Alvarenga DO [Primary Care Provider] -
--- NOTE | 2021-11-24 09:28 | CT Scan Report ---
CT knee LT wo con, CT knee RT wo con CLINICAL HISTORY: fall, pain TECHNIQUE: Multidetector row helical CT of the bilateral knees was performed without intravenous cont rast. Coronal and sagittal reformations were obtained. Automated dose lowering techniques and/or adju stment according to patient size were utilized for this examination. Comparison: None available at the time of this dictation. FINDINGS: The osseous structures are without fracture or dislocation. Degenerative changes are seen in the bila teral knee joints most prominent in the medial compartments. Calcifications are noted in the right PC L. No joint effusion is seen. The soft tissues are unremarkable. IMPRESSION: No evidence of acute fracture or dislocation. Degenerative changes as above. ACT 112: Negative or not required by law. Electronically signed by: Gato Nagel M.D. 11/24/2021 9:26 AM
--- NOTE | 2021-11-24 10:26 | History & Physical Report ---
Date of Service November 24, 2021 Assessment & Plan (1) Ambulatory dysfunction: Plan: Patient had a fall at home now cannot walk bilateral knees were evaluated ER with CT scan of both knees showing no fractures will need pain control orthopedic evaluation and ED OT evaluation. (2) HFrEF (heart failure with reduced ejection fraction): Plan: Patient has a history of both systolic and diastolic heart failure last ejection fraction was 85% patient is maintained on diuretics beta-blockers. There is some concern that her atrial flutter may be contributing and she was attempted to be cardioverted today however with her ambulatory dysfunction she had a cardioversion canceled and was sent to the ER for evaluation. Patient is maintained on Bumex Brilinta apixaban carvedilol and Ranexa for her atrial flutter rhythm she is on amiodarone and digoxin in addition to pacemaker (3) DM II (diabetes mellitus, type II), controlled: Plan: Diabetic diet continue insulin therapy (4) CKD (chronic kidney disease) stage 4, GFR 15-29 ml/min: Plan: Follow creatinine, reduce Bumex to once a day following volume status with her heart failure Patient continues on vitamin D3 Calcitrol iron (5) Malignant neoplasm of central portion of right breast in female, estrogen receptor positive: Plan: Continue anastrozole (6) Pulmonary hypertension: Plan: Patient maintained on diuretics (7) S/P TAVR (transcatheter aortic valve replacement): Plan: Maintains anticoagulation with apixaban (8) Chronic obstructive pulmonary disease, unspecified: (9) Hypothyroidism: Plan: Remains on Synthroid TSH taken on admission on 11/24/2021 is appropriate at 2.3 (10) DVT prophylaxis: Plan: Apixaban renal dose adjusted for DVT prevention History of Present Illness Primary Care Provider: Ebony Alvarenga DO 81-year-old female presents to the ED referrd from the [employer] with a chief complaint of bilateral knee pain. The patient states that she fell on Monday evening. She states that she was able to get up with a walker but by Monday morning she was having more difficulty and finally yesterday she was having even more difficulty getting up and getting around. Today her daughter brought her in for a cardioversion for atrial flutter. The patient had significant difficulty getting to the hospital today. She is having significant bilateral knee pain and swelling related to her fall. She has bruising and ecchymosis to her knees and some swelling. They did not feel comfortable doing the cardioversion today and recommended that she be seen in the ED. The patient feels like she cannot go home because of her pain and difficulty walking. Did not complain of any head pain or striking her head. No loss of consciousness. No chest pains or shortness of breath. She states that her arms are not strong enough to hold her up using the walker because her legs want to give out. Her original fall occurred when she was getting off the chair and her left leg slid out from under her going 1 direction and the other leg went the opposite dir ection. In the ER CT of bilateral knees show intact anatomy and no fractures, she does examine with painful knees covid negative 11/22/21, 11/24/21 is negative Allergies Allergy/AdvReac Type Severity Reaction Status Date / Time adhesive Allergy Intermediate REDNESS Verified 11/19/21 10:08 AND IRRITATION FROM PAIN PATCH, TAPE latex Allergy Intermediate ALLERGIC Verified 11/19/21 10:08 TO LATEX TAPE/RASH/ITCHING morphine Allergy Intermediate swelling Verified 11/19/21 10:08 nausea vomiting olmesartan Allergy Unknown UNKNOWN Verified 11/19/21 10:08 benzonatate AdvReac Intermediate confusion Verified 11/19/21 10:08 [From Tessalon Perles] dulaglutide [From Trulicity] AdvReac Intermediate AFFECTS Verified 11/19/21 10:08 MUSCLES exenatide [From Byetta] AdvReac Intermediate Diarrhea Verified 11/19/21 10:08 ezetimibe AdvReac Intermediate MUSCLE Verified 11/19/21 10:08 ACHES glipizide AdvReac Intermediate Diarrhea Verified 11/19/21 10:08 glyburide AdvReac Intermediate Diarrhea Verified 11/19/21 10:08 lisinopril AdvReac Intermediate LIGHTHEADED Verified 11/19/21 10:08 AND DIZZY losartan AdvReac Intermediate dizziness Verified 11/19/21 10:08 metformin AdvReac Intermediate Diarrhea Verified 11/19/21 10:08 pioglitazone AdvReac Intermediate DIARRHEA Verified 11/19/21 10:08 NAUSEA sitagliptin [From Januvia] AdvReac Intermediate Diarrhea Verified 11/19/21 10:08 Yspyllo-JTO-EfA Reductase AdvReac Intermediate myalgias Verified 11/19/21 10:08 Inhibitor and [Qqrvvjg-Oiz-Uwj Reductase weakness Inhibitor] aspirin AdvReac Mild GI SYMPTOMS Verified 11/19/21 10:08 Home Medications Medication Instructions Recorded Confirmed Type magnesium oxide 400 mg PO QPM #90 cap 04/01/19 11/19/21 Rx multivitamin (Multiple Vitamins) 1 tab PO QAM 05/19/19 11/19/21 History polyethylene glycol 3350 17 17 g PO HS 03/29/20 11/19/21 History gram/dose oral powder (Miralax) vitamin E 400 unit capsule 400 unit PO QAM 03/29/20 11/19/21 History ferrous sulfate 325 mg (65 mg 325 mg PO 3XWK 10/27/20 11/19/21 History iron) tablet (Feosol) carvedilol 6.25 mg tablet (Coreg) 6.25 mg PO HS 04/02/21 11/19/21 History cholecalciferol (vitamin D3) 25 1,000 unit PO QAM cap 05/17/21 11/19/21 History mcg (1,000 unit) capsule carvedilol 3.125 mg tablet (Coreg) 3.125 mg PO QAM tab 07/02/21 11/19/21 History potassium gluconate 595 mg (99 mg) 595 mg PO QAM 07/02/21 11/19/21 History tablet trazodone 50 mg tablet 50 mg PO HS PRN #90 tab 09/03/21 11/19/21 Rx garlic 1,000 mg capsule 1,000 mg PO QPM 09/07/21 11/19/21 History levothyroxine 75 mcg tablet 75 mcg PO QAM #90 tab 09/13/21 11/19/21 Rx ranolazine 500 mg tablet,extended 500 mg PO BID 09/16/21 11/19/21 History release,12 hr (Ranexa) ticagrelor 90 mg tablet (Brilinta) 90 mg PO BID #60 tab 09/19/21 11/19/21 Rx apixaban 2.5 mg tablet (Eliquis) 2.5 mg PO BID #60 tab 09/20/21 11/19/21 Rx amiodarone 200 mg tablet (Pacerone) 200 mg PO QPM 09/27/21 11/19/21 History omega-3 fatty acids 1,000 mg 1,000 mg PO QPM 10/15/21 11/19/21 History capsule pantoprazole 40 mg tablet,delayed 40 mg PO BID #180 tab 10/22/21 11/19/21 Rx release (Protonix) calcitriol 0.25 mcg capsule 0.25 mcg PO 3XWK #12 cap 10/25/21 11/19/21 Rx (Rocaltrol) digoxin 125 mcg (0.125 mg) tablet 125 mcg PO 3XWK #36 tab 10/25/21 11/19/21 Rx bumetanide 1 mg tablet 1 mg PO BID tab 10/27/21 11/19/21 History insulin aspar prt-insulin aspart 15 - 30 unit SUBCUT AMPM ml 10/27/21 11/19/21 History 100 unit/mL (70-30) subcutaneous soln (Novolog Mix 70-30 U-100 Insuln) anastrozole 1 mg tablet (Arimidex) 1 mg PO QAM 11/11/21 11/19/21 History ondansetron HCl 4 mg tablet 4 mg PO Q8H PRN #30 tab 11/16/21 11/19/21 Rx amiodarone 200 mg tablet mg 11/24/21 History Past Med/Surg History Medical History Anemia due to chronic kidney disease Antiplatelet or antithrombotic long-term use Aortic stenosis, severe S/p TAVR 10/2019 Atrial flutter On Eliquis Bilateral carotid artery stenosis H/o bilateral CEAs in 2016 Per 07/2021 vascular note- carotid ultrasound from office visit showed patent right CEA with velocities suggesting 50-59% stenosis restenosis Patent left CEA with velocities suggesting 99% restenosis - had re-do of left CEA 09/27/21 Biventricular ICD (implantable cardioverter-defibrillator) in place (04/30/20) Med[employer] implanted 04/30/2020. Capped right ventricular pacing lead Last check 09/2021 Breast cancer, right Right breast mastectomy 09/17/21 at [facility] CAD (coronary artery disease) F/U DR CUEVA S/p NATY x 1 to Cx in 2019; NATY to ostial LM 01/10/20 Chronic combined systolic and diastolic CHF (congestive heart failure) EF 40% per 10/16/21 ECHO Chronic kidney disease STAGE IV-F/U DR SALINAS Chronic obstructive pulmonary disease, unspecified Breathing stable Depression Diabetes mellitus, type 2 Glucose fluctuates DVT (deep venous thrombosis) LOWER LEG 2019 GERD (gastroesophageal reflux disease) History of CVA (cerebrovascular accident) Had RUE weakness and numbness after 09/17/21 breast surgery- CT scan of head negative; unable to do MRI due to ICD Per PCP records 10/22/21= "[place] her post op RUE sx related to possible small stroke/TIA" HLD (hyperlipidemia) HTN (hypertension) Hypothyroidism Insomnia Ischemic cardiomyopathy Left bundle branch block Nausea and vomiting after administration of anesthetic agent severe PONV s/p Left carotid surgery 09/27/21 at [facility] NSTEMI (non-ST elevated myocardial infarction) Most recent 12/2019 (mild per patient) PAD (peripheral artery disease) S/p OFFICE COPY SELECTOR and stenting of right SFA, and OFFICE COPY SELECTOR of left SFA and common femoral artery PAF (paroxysmal atrial fibrillation) Pulmonary hypertension RVSP 40-45mmHg on 10/2020 ECHO Rheumatoid arthritis No medications Followed with rheum in the past- no recent issues Right knee pain Secondary hyperparathyroidism of renal origin SOB (shortness of breath) on exertion Spondylosis Subclavian artery stenosis Surgical History H/O colonoscopy H/O heart artery stent H/O: section History of appendectomy History of cardiac cath TOTAL 6? STENTS- 2018 and 2019 History of cataract surgery right and left History of cholecystectomy History of hysterectomy History of left-sided carotid endarterectomy (09/27/21) redo L CEA, Dr Bateman History of oophorectomy S/P angioplasty (02/03/21) OFFICE COPY SELECTOR L SFA S/P carotid endarterectomy B/l 2016 S/P coronary artery stent placement (10/2017) NATY to mid LAD S/P coronary artery stent placement (10/2018) NATY prox mid LAD 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) S/P thoracentesis (03/2020) b/l d/t CHF Status post partial mastectomy of right breast (09/17/21) 09/17/21 - Done under [place] with LMA #4. Atraumatic LMA insertion. Magnet placed secondary to pacemaker. Right Breast Partial Mastectomy with [employer] Representative Localization, Right Axillary [place] Lymph Node Biopsy(Right) - Hua Acosta DO Family History Daughter Coronary heart disease Diabetes Mother Diabetes Family history of hypercholesterolemia Myocardial infarction Hypertension Stroke Brother Colorectal cancer Father Accident Brother Diabetes Family/Other Myocardial infarction Son Coronary heart disease Hypertension Other Pacemaker Denies family history of Ovarian cancer Prostate cancer Breast cancer Social History Smoking Status: Never smoker Second Hand Exposure: Yes (spouse smoked); Hx Alcohol Use: No Hx Substance Use: No Preferred Language: Kinyarwanda Communication Ability: Effective Visual Impairment: Limited Hearing Ability: Use of Hearing Aid Inspector [employer] Required: No Beliefs That Will Affect Care: None marital status: / marital status details: passed 2000 Current Living Situation: Alone current occupational status: retired 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 How many Children do You have: 2 Feels Safe at Home: Yes caffeine: Yes (1 cup/day) during the past year weight has: remained stable Seatbelt Use: always Assistive Devices: Cane, Denture - Upper, Denture - Lower, Glasses and Hearing Aid - Bilateral Review of Systems Review of Systems: Mild distress and fatigue, tender knees to exam no headache, no visual changes no speech or swallowing issues no chest pain, pressure or palpitations no shortness of breath, cough or wheezes no abdominal pain, nausea or vomiting, diarrhea or constipation no dysuria, hematuria or frequency Bilateral knee pain possibly some swelling no back pain, CVA tenderness or radicular pain no bruising, bleeding or rashes no focal signs of weakness or numbness or altered sensation no complaints of anxiety or depression.. Physical Exam Physical Exam: The patient appeared well nourished and normally developed. Vital signs as documented. Head exam is normocephalic atraumatic Neck is without JVD, thyromegaly, or carotid bruits. Lungs are clear to auscultation, no focal loss of breath sounds Cardiac exam, Rhythm is regular.. No murmurs, rubs or gallops. Abdominal exam reveals normal bowel sounds, soft non tender, no masses Extremities are nonedematous and both pedal pulses are present Neurologic exam is alert and oriented, no focal loss of strength or sensation Skin is with some bruising to lower legs Psychologically is without concerns for anxiety or depression.. Results & Data Results & Data ([facility]) Vital Signs (Past 12 Hours) Vital Signs Temp Pulse Resp BP Pulse Ox 11/24/21 08:45 98.2 F 67 20 177/76 H 94 PG Care Time/CCT Total # of Minutes Spent Total Time Spent with Patient: Total time spent is greater than 50% in coordination of care (as documented) at patient's floor/unit and/or counseling patient: Coding Level of Care Code 95753 Initial Inpt Care Lvl 2 Diagnoses Ambulatory dysfunction R26.2 DM II (diabetes mellitus, type II), controlled E11.21; Z79.4 Diabetes mellitus complication detail: with nephropathy Diabetes mellitus complication status: with kidney complications Diabetes mellitus terminal worker insulin use: with jail use CKD (chronic kidney disease) stage 4, GFR 15-29 ml/min N18.4 Malignant neoplasm of central portion of right breast in female, estrogen receptor positive C50.111; Z17.0 Pulmonary hypertension I27.20 S/P TAVR (transcatheter aortic valve replacement) Z95.2 Chronic obstructive pulmonary disease, unspecified J44.9 HFrEF (heart failure with reduced ejection fraction) I50.20 Hypothyroidism E03.9 DVT prophylaxis Z29.9 (1) DM II (diabetes mellitus, type II), controlled Diabetes mellitus complication detail: with nephropathy Diabetes mellitus complication status: with kidney complications Diabetes mellitus jail insulin use: with terminal worker use Qualified Code(s): E11.21 - Type 2 diabetes mellitus with diabetic nephropathy; Z79.4 - detention (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
[2021-11-24] MEDS ORDERED: AMIODARONE 200 MG TAB PO SCH ×2 (10:39→21:00)
[2021-11-24] MEDS ORDERED: ALUMINUM/MAGNESIUM SUSP 30 ML UDC PO PRN (13:04)
[2021-11-24] MEDS ORDERED: ONDANSETRON INJ 2 MG/ML 2 ML VIAL IV PRN (13:04)
[2021-11-24] MEDS ORDERED: ONDANSETRON 4 MG OD TAB PO PRN (13:24)
[2021-11-24] MEDS: ACETAMINOPHEN 325 MG TAB PO PRN (15:39)
[2021-11-24] MEDS: FERROUS SULFATE 325 MG TAB PO SCH (15:40)
[2021-11-24] MEDS: CALCITRIOL 0.25 MCG CAPSULE PO SCH (15:40)
[2021-11-24] MEDS: DIGOXIN 0.125 MG TAB PO SCH (16:58)
--- NOTE | 2021-11-24 17:19 | XRay Report ---
XR knee RT 3V, XR knee LT 3V CLINICAL HISTORY: knee pain TECHNIQUE: 3 views of the bilateral knees were obtained. Comparison: None available at the time of this dictation. FINDINGS: There is irregularity in the medial aspect of the proximal right fibular metaphysis. Otherwise no vladimir dence of fracture. The alignment is anatomic. Joint spaces are well-preserved. No joint effusion is s een. No soft tissue abnormality is seen. IMPRESSION: Irregularity in the cortex of the proximal right fibular metaphysis. Correlation with physical exam i s recommended. ACT 112: Negative or not required by law. Electronically signed by: Gato Nagel M.D. 11/24/2021 5:18 PM
--- NOTE | 2021-11-24 18:48 | Orthopedic Consultation ---
Date of Service November 24, 2021 Assessment & Plan (1) Contusion of knee, left: She was seen and examined by Dr Morel. Images were reviewed. She was reassured there were no fractures. She has some mild arthritis and soft tissue contusions. We recommend PT and she can weight bear as tolerated. Follow up with orthopedics as needed. (2) Contusion of knee, right: History of Present Illness Reason for Consultation: . Requesting Physician: . Attending Physician: John Downing MD . 81 year old patient admitted today for ambulatory dysfunction. She states that she had a fall on Monday, sort of landing on her buttock area. She was not able to initially get up, was able to crawl some and eventually get up with assistance and a walker. She then had another similar fall yesterday. Denies landing on her knees. Denies any hip or groin pain. She denies any surgical history with her knees. She describes sort of generalized pain around her knees. No other complaints at this time. Allergies Allergy/AdvReac Type Severity Reaction Status Date / Time adhesive Allergy Intermediate REDNESS Verified 11/19/21 10:08 AND IRRITATION FROM PAIN PATCH, TAPE latex Allergy Intermediate ALLERGIC Verified 11/19/21 10:08 TO LATEX TAPE/RASH/ITCHING morphine Allergy Intermediate swelling Verified 11/19/21 10:08 nausea vomiting olmesartan Allergy Unknown UNKNOWN Verified 11/19/21 10:08 benzonatate AdvReac Intermediate confusion Verified 11/19/21 10:08 [From Tessalon Perles] dulaglutide [From Trulicity] AdvReac Intermediate AFFECTS Verified 11/19/21 10:08 MUSCLES exenatide [From Byetta] AdvReac Intermediate Diarrhea Verified 11/19/21 10:08 ezetimibe AdvReac Intermediate MUSCLE Verified 11/19/21 10:08 ACHES glipizide AdvReac Intermediate Diarrhea Verified 11/19/21 10:08 glyburide AdvReac Intermediate Diarrhea Verified 11/19/21 10:08 lisinopril AdvReac Intermediate LIGHTHEADED Verified 11/19/21 10:08 AND DIZZY losartan AdvReac Intermediate dizziness Verified 11/19/21 10:08 metformin AdvReac Intermediate Diarrhea Verified 11/19/21 10:08 pioglitazone AdvReac Intermediate DIARRHEA Verified 11/19/21 10:08 NAUSEA sitagliptin [From Januvia] AdvReac Intermediate Diarrhea Verified 11/19/21 10:08 [id number]-XSX-ZgU Reductase AdvReac Intermediate myalgias Verified 11/19/21 10:08 Inhibitor and [Riyyqrc-Viu-Pgw Reductase weakness Inhibitor] aspirin AdvReac Mild GI SYMPTOMS Verified 11/19/21 10:08 Home Medications Medication Instructions Recorded Confirmed Type magnesium oxide 400 mg PO QPM #90 cap 04/01/19 11/19/21 Rx multivitamin (Multiple Vitamins) 1 tab PO QAM 05/19/19 11/19/21 History polyethylene glycol 3350 17 17 g PO HS 03/29/20 11/19/21 History gram/dose oral powder (Miralax) vitamin E 400 unit capsule 400 unit PO QAM 03/29/20 11/19/21 History ferrous sulfate 325 mg (65 mg 325 mg PO 3XWK 10/27/20 11/19/21 History iron) tablet (Feosol) carvedilol 6.25 mg tablet (Coreg) 6.25 mg PO HS 04/02/21 11/19/21 History cholecalciferol (vitamin D3) 25 1,000 unit PO QAM cap 05/17/21 11/19/21 History mcg (1,000 unit) capsule carvedilol 3.125 mg tablet (Coreg) 3.125 mg PO QAM tab 07/02/21 11/19/21 History potassium gluconate 595 mg (99 mg) 595 mg PO QAM 07/02/21 11/19/21 History tablet trazodone 50 mg tablet 50 mg PO HS PRN #90 tab 09/03/21 11/19/21 Rx garlic 1,000 mg capsule 1,000 mg PO QPM 09/07/21 11/19/21 History levothyroxine 75 mcg tablet 75 mcg PO QAM #90 tab 09/13/21 11/19/21 Rx ranolazine 500 mg tablet,extended 500 mg PO BID 09/16/21 11/19/21 History release,12 hr (Ranexa) ticagrelor 90 mg tablet (Brilinta) 90 mg PO BID #60 tab 09/19/21 11/19/21 Rx apixaban 2.5 mg tablet (Eliquis) 2.5 mg PO BID #60 tab 09/20/21 11/19/21 Rx amiodarone 200 mg tablet (Pacerone) 200 mg PO QPM 09/27/21 11/19/21 History omega-3 fatty acids 1,000 mg 1,000 mg PO QPM 10/15/21 11/19/21 History capsule pantoprazole 40 mg tablet,delayed 40 mg PO BID #180 tab 10/22/21 11/19/21 Rx release (Protonix) calcitriol 0.25 mcg capsule 0.25 mcg PO 3XWK #12 cap 10/25/21 11/19/21 Rx (Rocaltrol) digoxin 125 mcg (0.125 mg) tablet 125 mcg PO 3XWK #36 tab 10/25/21 11/19/21 Rx bumetanide 1 mg tablet 1 mg PO BID tab 10/27/21 11/19/21 History insulin aspar prt-insulin aspart 15 - 30 unit SUBCUT AMPM ml 10/27/21 11/19/21 History 100 unit/mL (70-30) subcutaneous soln (Novolog Mix 70-30 U-100 Insuln) anastrozole 1 mg tablet (Arimidex) 1 mg PO QAM 11/11/21 11/19/21 History ondansetron HCl 4 mg tablet 4 mg PO Q8H PRN #30 tab 11/16/21 11/19/21 Rx amiodarone 200 mg tablet mg 11/24/21 History Past Med/Surg History Medical History Anemia due to chronic kidney disease Antiplatelet or antithrombotic long-term use Aortic stenosis, severe S/p TAVR 10/2019 Bilateral carotid artery stenosis H/o bilateral CEAs in 2016 Per 07/2021 vascular note- carotid ultrasound from office visit showed patent right CEA with velocities suggesting 50-59% stenosis restenosis Patent left CEA with velocities suggesting 99% restenosis - had re-do of left CEA 09/27/21 Biventricular ICD (implantable cardioverter-defibrillator) in place (04/30/20) [employer] implanted 04/30/2020. Capped right ventricular pacing lead Last check 09/2021 Breast cancer, right Right breast mastectomy 09/17/21 at [facility] CAD (coronary artery disease) F/U DR CUEVA S/p NATY x 1 to Cx in 2019; NATY to ostial LM 3/27/20 Chronic combined systolic and diastolic CHF (congestive heart failure) EF 40% per 10/16/21 ECHO Chronic kidney disease STAGE IV-F/U DR SALINAS Chronic obstructive pulmonary disease, unspecified Breathing stable Depression Diabetes mellitus, type 2 Glucose fluctuates DVT (deep venous thrombosis) LOWER LEG 2019 GERD (gastroesophageal reflux disease) History of CVA (cerebrovascular accident) Had RUE weakness and numbness after 09/17/21 breast surgery- CT scan of head negative; unable to do MRI due to ICD Per PCP records 10/22/21= "[place] her post op RUE sx related to possible small stroke/TIA" Hypothyroidism Insomnia Ischemic cardiomyopathy Left bundle branch block Nausea and vomiting after administration of anesthetic agent severe PONV s/p Left carotid surgery 09/27/21 at [facility] NSTEMI (non-ST elevated myocardial infarction) Most recent 12/2019 (mild per patient) PAD (peripheral artery disease) S/p PRINTED CIRCUIT BOARDS INSPECTOR and stenting of right SFA, and PRINTED CIRCUIT BOARDS INSPECTOR of left SFA and common femoral artery PAF (paroxysmal atrial fibrillation) Pulmonary hypertension RVSP 40-45mmHg on 10/2020 ECHO Rheumatoid arthritis No medications Followed with rheum in the past- no recent issues Right knee pain Secondary hyperparathyroidism of renal origin SOB (shortness of breath) on exertion Spondylosis Subclavian artery stenosis Surgical History H/O colonoscopy H/O heart artery stent H/O: section History of appendectomy History of cardiac cath TOTAL 6? STENTS- 2018 and 2019 History of cataract surgery right and left History of cholecystectomy History of hysterectomy History of left-sided carotid endarterectomy (09/27/21) redo L CEA, Dr Bateman History of oophorectomy S/P angioplasty (02/03/21) PRINTED CIRCUIT BOARDS INSPECTOR L SFA S/P carotid endarterectomy B/l 2016 S/P coronary artery stent placement (10/2017) NATY to mid LAD S/P coronary artery stent placement (10/2018) NATY prox mid LAD 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) S/P thoracentesis (03/2020) b/l d/t CHF Status post partial mastectomy of right breast (09/17/21) 09/17/21 - Done under [place] with LMA #4. Atraumatic LMA insertion. Magnet placed secondary to pacemaker. Right Breast Partial Mastectomy with [place] Vice President Of Instruction Localization, Right Axillary [place] Lymph Node Biopsy(Right) - Hua Acosta, Family History Daughter Coronary heart disease Cardiac stent Diabetes Mother , 83yo Diabetes Family history of hypercholesterolemia Myocardial infarction Hypertension Stroke Brother Colorectal cancer 1/2 brother Father , Accident in war Brother Diabetes 1/2 brother;Complications of DM Family/Other Myocardial infarction 1/2 sister Son Coronary heart disease Cardiac stent Hypertension Other Pacemaker Denies family history of Ovarian cancer Prostate cancer Breast cancer Social History Smoking Status: Never smoker Second Hand Exposure: Yes (spouse smoked); Hx Alcohol Use: No Hx Substance Use: No Preferred Language: Yoruba Communication Ability: Effective Visual Impairment: Limited Hearing Ability: Use of Hearing Aid Assistant Press Operator Offset Required: No Beliefs That Will Affect Care: None marital status: / marital status details: passed 2000 Current Living Situation: Alone current occupational status: retired 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 Physical Exam .alert and oriented. NAD. She has some ecchymosis around both of her knees. Skin is intact. She has pain doing a straight leg raise but is able to do it. Her motion is limited today. No instability of her knees. Good hip ROM. She reports pain with generalized palpation around her lower extremities. Results & Data Results & Data Laboratory Results . Diagnostic Findings .xrays and ct scan were reviewed and show no fractures. She has some mild knee arthritis. PG Care Time/CCT Total # of Minutes Spent Total Time Spent with Patient: Total time spent is greater than 50% in coordination of care (as documented) at patient's floor/unit and/or counseling patient: Coding Level of Care Code 28831 Inpt Consult Level 3 Diagnoses Contusion of knee, left S80.02XA Contusion of knee, right S80.01XA
[2021-11-24] MEDS: POLYETHYLENE (MIRALAX) 17 GM PACK PO SCH (22:54)
[2021-11-24] MEDS: AMIODARONE 200 MG TAB PO SCH (22:54)
[2021-11-24] MEDS: RANOLAZINE 500 MG ER TAB PO SCH (22:54)
[2021-11-24] MEDS: MAGNESIUM OXIDE 400 MG TAB PO SCH (22:54)
[2021-11-24] MEDS: OMEGA-3 (PURIFIED FISH OIL) 1 GM CAP PO SCH (22:54)
[2021-11-24] MEDS: PANTOprazole 40 MG TAB PO SCH (22:54)
[2021-11-24] MEDS: APIXABAN 2.5 MG TAB PO SCH (22:54)
[2021-11-24] MEDS: TICAGRELOR 90 MG TAB PO SCH (22:55)
[2021-11-25] MEDS: ACETAMINOPHEN 325 MG TAB PO PRN (00:58)
[2021-11-25 06:24] LABS: BUN Creatinine Ratio 19.2 (10-20); Calcium 8.4 mg/dl (8.5-10.1); Creatinine Clr Calc Pharmacy 27.2 ml/min; Est GFR (African American) 29.5 ml/min; Est GFR (Non-African American) 25.4 ml/min; Magnesium 2.2 mg/dl (1.7-2.4); Potassium 4.1 mmol/L (3.5-5.1)
--- NOTE | 2021-11-25 06:42 | Electrocardiogram Report ---
Test Reason : Blood Pressure : / mmHG Vent. Rate : 065 BPM Atrial Rate : 085 BPM P-R Int : 000 ms QRS Dur : 150 ms QT Int : 452 ms P-R-T Axes : 000 047 248 degrees QTc Int : 470 ms Ventricular-paced rhythm Abnormal ECG When compared with ECG of 19-OCT-2021 07:04, Ventricular pacing is now present Confirmed by Donnell Deleon ([id number]) on 11/25/2021 6:42:23 AM Referred By: REFERRED SELF Confirmed By:Donnell Deleon
[2021-11-25] MEDS: LEVOTHYROXINE SODIUM 75 MCG TABLET PO SCH (06:43)
[2021-11-25] MEDS ORDERED: HYDROmorphone INJ 0.5 MG/0.5 ML SYR IV PRN (07:59)
[2021-11-25] MEDS ORDERED: NON-FORMULARY MEDICATION (Potassium Gluconate 595 mg (99 mg) tablet) PO SCH (09:00)
[2021-11-25] MEDS: BUMETANIDE 1 MG TAB PO SCH (09:10)
[2021-11-25] MEDS: TICAGRELOR 90 MG TAB PO SCH ×2 (09:10→20:35)
[2021-11-25] MEDS: ACETAMINOPHEN 500 MG TAB PO SCH ×3 (09:10→20:35)
[2021-11-25] MEDS: CHOLECALCIFEROL 1,000 UNITS 25 MCG TAB PO SCH (09:10)
[2021-11-25] MEDS: APIXABAN 2.5 MG TAB PO SCH ×2 (09:10→20:35)
[2021-11-25] MEDS: PANTOprazole 40 MG TAB PO SCH ×2 (09:11→20:35)
[2021-11-25] MEDS: MULTIVITAMIN TAB PO SCH (09:11)
[2021-11-25] MEDS: ANASTROZOLE 1 MG TAB PO SCH (09:11)
[2021-11-25] MEDS: RANOLAZINE 500 MG ER TAB PO SCH ×2 (09:11→20:35)
[2021-11-25] MEDS: TOCOPHERYL, DL-ALPHA 400 UNITS 180 MG CAP PO SCH (09:11)
[2021-11-25] MEDS: AMIODARONE 200 MG TAB PO SCH ×2 (09:11→20:35)
[2021-11-25] MEDS: DICLOFENAC SOD 1% GEL 100 GM TUBE EXT SCH ×2 (10:26→20:35)
--- NOTE | 2021-11-25 11:57 | CT Scan Report ---
LUMBAR SPINE CT CT DOSE: 601.10 mGycm HISTORY: Fall. Back pain. Lower extremity weakness. eval for neural compromise TECHNIQUE: Multiaxial CT images of the lumbar spine were performed and reformatted in the sagittal an d coronal plane without the use of contrast. A dose lowering technique was utilized adhering to the principles of ALARA. COMPARISON: Lumbar spine CT 12/26/2013. FINDINGS: Bilateral pleural effusions are partially visualized. Paravertebral soft tissues are unrema rkable. There is moderate anterior wedge-shaped compression deformity at L1. Remaining vertebral bodi es are maintained. No acute fracture or subluxation. Moderate facet degenerative changes throughout t he lumbar spine. Mild disc space narrowing at L5-S1 with associated vacuum phenomenon. The visualized sacrum is intact. Mild central canal narrowing at L3-L4 due to a small broad-based posterior disc bu lge and ligamentum flavum and facet hypertrophy. There is mild to moderate bilateral neural foraminal narrowing at L5-S1. Mild subcutaneous edema within the lumbar region. IMPRESSION: 1. No acute fractures within the lumbar spine. 2. There is an old moderate anterior wedge-shaped compression deformity at L1. 3. Mild degenerative changes as described above. 4. Bilateral pleural effusions are partially visualized. ACT 112: Negative or not required by law. Electronically signed by: Sid Rodriguez M.D. 11/25/2021 11:55 AM
[2021-11-25] MEDS: carvediloL 3.125 MG TAB PO SCH ×3 (12:13→17:27)
[2021-11-25] MEDS ORDERED: GLUCOSE 10 TABS/TUBE PO PRN (13:12)
[2021-11-25] MEDS ORDERED: GLUCOSE 40% GEL 15 GM TUBE PO PRN (13:12)
[2021-11-25] MEDS ORDERED: DEXTROSE 50% 50 ML SYRINGE IV PRN (13:12)
[2021-11-25] MEDS ORDERED: CARBOHYDRATES FOR HYPOGLYCEMIA PO PRN (13:12)
[2021-11-25] MEDS ORDERED: GLUCAGON FOR INJ 1 MG VIAL SQ PRN (13:12)
[2021-11-25] MEDS ORDERED: INSULIN ASPART PER UNIT SC ONE (13:30)
--- NOTE | 2021-11-25 15:47 | Hospitalist Progress Note ---
Date of Service November 25, 2021 Assessment & Plan (1) Ambulatory dysfunction: Plan: Patient had a fall at home now cannot walk bilateral knees were evaluated ER with CT scan of both knees showing no fractures orthopedic evaluation recommends symptoms control and PT/OT (2) HFrEF (heart failure with reduced ejection fraction): Plan: Patient has a history of both systolic and diastolic heart failure last ejection fraction was 85% patient is maintained on diuretics beta-blockers. There is some concern that her atrial flutter may be contributing and she will be attempted to be cardioverted during this hospital stay Patient is maintained on Bumex Brilinta apixaban carvedilol and Ranexa for her atrial flutter rhythm she is on amiodarone and digoxin in addition to pacemaker (3) DM II (diabetes mellitus, type II), controlled: Plan: Diabetic diet continue insulin therapy (4) CKD (chronic kidney disease) stage 4, GFR 15-29 ml/min: Plan: Follow creatinine, reduce Bumex to once a day following volume status with her heart failure Patient continues on vitamin D3 Calcitrol iron (5) Malignant neoplasm of central portion of right breast in female, estrogen receptor positive: Plan: Continue anastrozole (6) Pulmonary hypertension: Plan: Patient maintained on diuretics (7) S/P TAVR (transcatheter aortic valve replacement): Plan: Maintains anticoagulation with apixaban (8) Chronic obstructive pulmonary disease, unspecified: (9) Hypothyroidism: Plan: Remains on Synthroid TSH taken on admission on 11/24/2021 is appropriate at 2.3 (10) DVT prophylaxis: Plan: Apixaban renal dose adjusted for DVT prevention Admission and Anticipated Discharge Date Admission Date: November 24, 2021 Subjective this pt is still considerably painful and cannot walk, she has some persistent back pain, but not radicular signs Review of Systems Review of Systems: Mild distress and fatigue no headache, no visual changes no speech or swallowing issues no chest pain, pressure or palpitations no shortness of breath, cough or wheezes no abdominal pain, nausea or vomiting, diarrhea or constipation no dysuria, hematuria or frequency Bilateral knee pain to touch tenderness and movement of the standing and bearing weight no back pain, CVA tenderness or radicular pain Some bruising on the patient's thighs and the no focal signs of weakness or numbness or altered sensation no complaints of anxiety or depression.. Physical Exam Physical Exam: The patient appeared well nourished and normally developed. Vital signs as documented. Head exam is normocephalic atraumatic Neck is without JVD, thyromegaly, or carotid bruits. Lungs are clear to auscultation, no focal loss of breath sounds Cardiac exam, Rhythm is regular. paced and systolic murmur Abdominal exam reveals normal bowel sounds, soft non tender, no masses Extremity, bilateral knee pain and brusing Neurologic exam is alert and oriented, no focal loss of strength or sensation Skin is without bruises or rashes Psychologically is without concerns for anxiety or depression.. Results & Data Results & Data ([facility]) Vital Signs (Past 12 Hours) Vital Signs Temp Pulse Resp BP Pulse Ox Pulse Ox 11/25/21 14:00 64 16 141/78 H 93 11/25/21 13:04 92 11/25/21 11:31 71 16 168/65 H 91 11/25/21 07:29 98.1 F 72 18 161/86 H 98 11/25/21 04:00 66 16 141/83 H 97 PG Care Time/CCT Total # of Minutes Spent Total Time Spent with Patient: Total time spent is greater than 50% in coordination of care (as documented) at patient's floor/unit and/or counseling patient: Coding Level of Care Code 59069 Subseq Hosp Care Lvl 2 Diagnoses Ambulatory dysfunction R26.2 HFrEF (heart failure with reduced ejection fraction) I50.20 DM II (diabetes mellitus, type II), controlled E11.21; Z79.4 Diabetes mellitus complication detail: with nephropathy Diabetes mellitus complication status: with kidney complications Diabetes mellitus terminal operations manager insulin use: with terminal operations manager use CKD (chronic kidney disease) stage 4, GFR 15-29 ml/min N18.4 Malignant neoplasm of central portion of right breast in female, estrogen receptor positive C50.111; Z17.0 Pulmonary hypertension I27.20 S/P TAVR (transcatheter aortic valve replacement) Z95.2 Chronic obstructive pulmonary disease, unspecified J44.9 Hypothyroidism E03.9 DVT prophylaxis Z29.9 (1) DM II (diabetes mellitus, type II), controlled Diabetes mellitus complication detail: with nephropathy Diabetes mellitus complication status: with kidney complications Diabetes mellitus terminal operations manager insulin use: with detention use Qualified Code(s): E11.21 - Type 2 diabetes mellitus with diabetic nephropathy; Z79.4 - terminal makeup operator (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
[2021-11-25] MEDS: INSULIN ASPART PER UNIT SC SCH ×2 (18:16→20:49)
[2021-11-25] MEDS: MAGNESIUM OXIDE 400 MG TAB PO SCH (20:35)
[2021-11-25] MEDS: OMEGA-3 (PURIFIED FISH OIL) 1 GM CAP PO SCH (20:35)
[2021-11-25] MEDS: POLYETHYLENE (MIRALAX) 17 GM PACK PO SCH (20:36)
[2021-11-26 05:38] LABS: Hematocrit (blood only) 36.8 % (37-47); Hemoglobin 11.4 g/dL (12.0-16.0); Mean Corpuscular Hemoglobin 32.1 pg (25-34); Mean Corpuscular Volume 103.7 fL (80-100); Mean Platelet Volume 10.8 fL (7.4-10.4); Platelet Count 232 K/uL (130-400); RDW Coefficient of Variation 14.7 % (11.5-14.5); RDW Standard Deviation 55.5 fL (36.4-46.3); Red Blood Count 3.55 M/uL (4.2-5.4); White Blood Count 7.12 K/uL (4.8-10.8)
[2021-11-26 05:52] LABS: BUN Creatinine Ratio 18.8 (10-20); Calcium 8.6 mg/dl (8.5-10.1); Creatinine Clr Calc Pharmacy 25.8 ml/min; Est GFR (African American) 27.6 ml/min; Est GFR (Non-African American) 23.8 ml/min; Potassium 4.3 mmol/L (3.5-5.1)
[2021-11-26] MEDS: LEVOTHYROXINE SODIUM 75 MCG TABLET PO SCH (06:29)
[2021-11-26 07:57] LABS: Estimated Average Glucose 137 mg/dl; Hemoglobin A1C 6.4 % (4.5-5.6)
[2021-11-26] MEDS: INSULIN ASPART PER UNIT SC SCH ×4 (10:05→20:45)
[2021-11-26] MEDS: AMIODARONE 200 MG TAB PO SCH ×2 (10:07→20:31)
[2021-11-26] MEDS: BUMETANIDE 1 MG TAB PO SCH ×2 (10:08→10:14)
[2021-11-26] MEDS: APIXABAN 2.5 MG TAB PO SCH ×2 (10:08→20:33)
[2021-11-26] MEDS: carvediloL 3.125 MG TAB PO SCH ×2 (10:08→17:27)
[2021-11-26] MEDS: CHOLECALCIFEROL 1,000 UNITS 25 MCG TAB PO SCH (10:09)
[2021-11-26] MEDS: ACETAMINOPHEN 500 MG TAB PO SCH ×3 (10:09→20:39)
[2021-11-26] MEDS: TICAGRELOR 90 MG TAB PO SCH ×2 (10:10→20:33)
[2021-11-26] MEDS: DICLOFENAC SOD 1% GEL 100 GM TUBE EXT SCH ×2 (10:10→23:34)
[2021-11-26] MEDS: TOCOPHERYL, DL-ALPHA 400 UNITS 180 MG CAP PO SCH (10:11)
[2021-11-26] MEDS: MULTIVITAMIN TAB PO SCH (10:11)
[2021-11-26] MEDS: RANOLAZINE 500 MG ER TAB PO SCH ×2 (10:11→20:34)
[2021-11-26] MEDS: PANTOprazole 40 MG TAB PO SCH ×2 (10:11→20:33)
[2021-11-26] MEDS: ANASTROZOLE 1 MG TAB PO SCH (10:23)
--- NOTE | 2021-11-26 10:45 | Anesthesiology Consultation ---
Date of Service November 26, 2021 Assessment & Plan (1) Encounter for pre-operative examination: Chart Review Chart Review: Acceptable Risk for Surgery History Surgery Operation Date: 11/26/21 11:15 Proposed Procedures p Cardioversion Theology Professor w/Anesthesia - Petey Sanchez MD Height/Weight Height: 5 ft 4 in Weight: 99 kg Allergies Allergy/AdvReac Type Severity Reaction Status Date / Time adhesive Allergy Intermediate REDNESS Verified 11/25/21 09:45 AND IRRITATION FROM PAIN PATCH, TAPE latex Allergy Intermediate ALLERGIC Verified 11/25/21 09:45 TO LATEX TAPE/RASH/ITCHING morphine Allergy Intermediate swelling Verified 11/25/21 09:45 nausea vomiting olmesartan Allergy Unknown UNKNOWN Verified 11/25/21 09:45 benzonatate AdvReac Intermediate confusion Verified 11/25/21 09:45 [From Tessalon Perles] dulaglutide [From Trulicity] AdvReac Intermediate AFFECTS Verified 11/25/21 09:45 MUSCLES exenatide [From Byetta] AdvReac Intermediate Diarrhea Verified 11/25/21 09:45 ezetimibe AdvReac Intermediate MUSCLE Verified 11/25/21 09:45 ACHES glipizide AdvReac Intermediate Diarrhea Verified 11/25/21 09:45 glyburide AdvReac Intermediate Diarrhea Verified 11/25/21 09:45 lisinopril AdvReac Intermediate LIGHTHEADED Verified 11/25/21 09:45 AND DIZZY losartan AdvReac Intermediate dizziness Verified 11/25/21 09:45 metformin AdvReac Intermediate Diarrhea Verified 11/25/21 09:45 pioglitazone AdvReac Intermediate DIARRHEA Verified 11/25/21 09:45 NAUSEA sitagliptin [From Januvia] AdvReac Intermediate Diarrhea Verified 11/25/21 09:45 Urgubbs-XMF-ByD Reductase AdvReac Intermediate myalgias Verified 11/25/21 09:45 Inhibitor and [Vmawkhd-Ctm-Aeq Reductase weakness Inhibitor] aspirin AdvReac Mild GI SYMPTOMS Verified 11/25/21 09:45 Medications Home Medications Medication Instructions Recorded Confirmed Last Taken magnesium oxide 400 mg PO QPM #90 cap 04/01/19 11/25/21 10/14/21 multivitamin (Multiple Vitamins) 1 tab PO QAM 05/19/19 11/25/21 10/15/21 polyethylene glycol 3350 17 17 g PO HS 03/29/20 11/25/2121 gram/dose oral powder (Miralax) vitamin E 400 unit capsule 400 unit PO QAM 03/29/20 11/25/21 10/15/21 ferrous sulfate 325 mg (65 mg 325 mg PO 3XWK 10/27/20 11/25/21 10/15/21 iron) tablet (Feosol) carvedilol 6.25 mg tablet (Coreg) 6.25 mg PO HS 04/02/21 11/25/21 10/14/21 cholecalciferol (vitamin D3) 25 1,000 unit PO QAM cap 05/17/21 11/25/21 10/15/21 mcg (1,000 unit) capsule carvedilol 3.125 mg tablet (Coreg) 3.125 mg PO QAM tab 07/02/21 11/25/21 10/15/21 potassium gluconate 595 mg (99 mg) 595 mg PO QAM 07/02/21 11/25/21 10/15/21 tablet trazodone 50 mg tablet 50 mg PO HS PRN #90 tab 09/03/21 11/25/21 09/20/21 garlic 1,000 mg capsule 1,000 mg PO QPM 09/07/21 11/25/21 10/14/21 levothyroxine 75 mcg tablet 75 mcg PO QAM #90 tab 09/13/21 11/25/21 10/15/21 ranolazine 500 mg tablet,extended 500 mg PO BID 09/16/21 11/25/21 10/15/21 08:00 release,12 hr (Ranexa) ticagrelor 90 mg tablet (Brilinta) 90 mg PO BID #60 tab 09/19/21 11/25/21 10/15/21 08:00 apixaban 2.5 mg tablet (Eliquis) 2.5 mg PO BID #60 tab 09/20/21 11/25/21 10/15/21 08:00 amiodarone 200 mg tablet (Pacerone) 200 mg PO QPM 09/27/21 11/25/21 10/14/21 omega-3 fatty acids 1,000 mg 1,000 mg PO QPM 10/15/21 11/25/21 10/15/21 capsule pantoprazole 40 mg tablet,delayed 40 mg PO BID #180 tab 10/22/21 11/25/21 Unknown release (Protonix) calcitriol 0.25 mcg capsule 0.25 mcg PO 3XWK #12 cap 10/25/21 11/25/21 Unknown (Rocaltrol) digoxin 125 mcg (0.125 mg) tablet 125 mcg PO 3XWK #36 tab 10/25/21 11/25/21 Unknown bumetanide 1 mg tablet 1 mg PO BID tab 10/27/21 11/25/21 Unknown insulin aspar prt-insulin aspart 15 - 30 unit SUBCUT AMPM ml 10/27/21 11/25/21 Unknown 100 unit/mL (70-30) subcutaneous soln (Novolog Mix 70-30 U-100 Insuln) anastrozole 1 mg tablet (Arimidex) 1 mg PO QAM 11/11/21 11/25/21 Unknown ondansetron HCl 4 mg tablet 4 mg PO Q8H PRN #30 tab 11/16/21 11/25/21 Unknown Active Medications Generic Name Dose Route Start Last Admin Trade Name Freq PRN Reason Stop Dose Admin Acetaminophen 650 mg 11/24/21 13:04 11/25/21 00:58 Acetaminophen 325 Mg Tab PO 12/24/21 13:03 650 mg Q4H PRN Administration Pain or Fever Acetaminophen 1,000 mg 11/25/21 09:00 11/26/21 10:09 Acetaminophen 500 Mg Tab PO 12/25/21 08:59 Not Given TID ANDREW Amiodarone HCl 200 mg 11/24/21 21:00 11/26/21 10:07 Amiodarone 200 Mg Tab PO 12/24/21 20:59 200 mg BID ANDREW Administration Anastrozole 1 mg 11/25/21 09:00 11/26/21 10:23 Anastrozole 1 Mg Tab PO 12/25/21 08:59 1 mg QAM ANDREW Administration Apixaban 2.5 mg 11/24/21 21:00 11/26/21 10:08 Apixaban 2.5 Mg Tab PO 12/24/21 20:59 2.5 mg BID ANDREW Administration Bumetanide 1 mg 11/25/21 09:00 11/26/21 10:14 Bumetanide 1 Mg Tab PO 12/25/21 08:59 1 mg DAILY ANDREW Administration Calcitriol 0.25 mcg 11/24/21 13:45 11/24/21 15:40 Calcitriol 0.25 Mcg Capsule PO 12/24/21 13:44 0.25 mcg MoWeFr ANDREW Administration Carvedilol 3.125 mg 11/24/21 17:00 11/26/21 10:08 Carvedilol 3.125 Mg Tab PO 12/24/21 16:59 Not Given BIDM ANDREW Diclofenac Sodium 2 gm 11/25/21 10:00 11/26/21 10:10 Diclofenac Sod 1% Gel 100 Gm Tube EXT 12/25/21 09:59 2 gm BID ANDREW Administration Digoxin 0.125 mg 11/24/21 16:00 11/24/21 16:58 Digoxin 0.125 Mg Tab PO 12/24/21 15:59 0.125 mg MoWeFr@1600 ANDREW Administration Ferrous Sulfate 325 mg 11/24/21 14:00 11/24/21 15:40 Ferrous Sulfate 325 Mg Tab PO 12/24/21 13:59 325 mg MoWeFr ANDREW Administration Fish Oil 1 gm 11/24/21 21:00 11/25/21 20:35 Prosser-3 (Purified Fish Oil) 1 Gm Cap PO 12/24/21 20:59 1 gm QPM ANDREW Administration Insulin Aspart 0 units 11/25/21 16:30 11/26/21 10:05 Insulin Aspart Per Unit SC 12/25/21 16:29 4 units ACHS ANDREW Administration Levothyroxine Sodium 75 mcg 11/25/21 06:30 11/26/21 06:29 Levothyroxine Sodium 75 Mcg Tablet PO 12/25/21 06:29 75 mcg DAILYBB ANDREW Administration Magnesium Oxide 400 mg 11/24/21 21:00 11/25/21 20:35 Magnesium Oxide 400 Mg Tab PO 12/24/21 20:59 400 mg QPM ANDREW Administration Multivitamins 1 tab 11/25/21 09:00 11/26/21 10:11 Multivitamin Tab PO 12/25/21 08:59 Not Given QAM [facility] Ondansetron HCl 4 mg 11/24/21 13:24 11/25/21 12:12 Ondansetron 4 Mg Od Tab PO 12/24/21 13:23 4 mg Q8H PRN Administration nausea and vomiting Pantoprazole Sodium 40 mg 11/24/21 21:00 11/26/21 10:11 Pantoprazole 40 Mg Tab PO 12/24/21 20:59 40 mg BID ANDREW Administration Polyethylene Glycol 17 gm 11/24/21 21:00 11/25/21 20:36 Polyethylene (Miralax) 17 Gm Pack PO 12/24/21 20:59 Not Given HS ANDREW Ranolazine 500 mg 11/24/21 21:00 11/26/21 10:11 Ranolazine 500 Mg Er Tab PO 12/24/21 20:59 500 mg BID ANDREW Administration Ticagrelor 90 mg 11/24/21 21:00 11/26/21 10:10 Ticagrelor 90 Mg Tab PO 12/24/21 20:59 90 mg BID ANDREW Administration Vitamin D 1,000 units 11/25/21 09:00 11/26/21 10:09 Cholecalciferol 1,000 Units 25 Mcg Tab PO 12/25/21 08:59 Not Given QAM ANDREW Vitamin E 400 units 11/25/21 09:00 11/26/21 10:11 Tocopheryl, Dl-Alpha 400 Units 180 Mg Cap PO 12/25/21 08:59 Not Given QAM ANDREW Past Medical History Medical History Anemia due to chronic kidney disease Antiplatelet or antithrombotic long-term use Aortic stenosis, severe S/p TAVR 10/2019 Bilateral carotid artery stenosis H/o bilateral CEAs in 2016 Per 07/2021 vascular note- carotid ultrasound from office visit showed patent right CEA with velocities suggesting 50-59% stenosis restenosis Patent left CEA with velocities suggesting 99% restenosis - had re-do of left CEA 09/27/21 Biventricular ICD (implantable cardioverter-defibrillator) in place (04/30/20) [employer] implanted 04/30/2020. Capped right ventricular pacing lead Last check 09/2021 Breast cancer, right Right breast mastectomy 09/17/21 at [facility] CAD (coronary artery disease) F/U DR CUEVA S/p NATY x 1 to Cx in 2019; NATY to ostial LM 01/10/20 Chronic combined systolic and diastolic CHF (congestive heart failure) EF 40% per 10/16/21 ECHO Chronic kidney disease STAGE IV-F/U DR SALINSA Chronic obstructive pulmonary disease, unspecified Breathing stable Depression Diabetes mellitus, type 2 Glucose fluctuates DVT (deep venous thrombosis) LOWER LEG 2019 GERD (gastroesophageal reflux disease) History of CVA (cerebrovascular accident) Had RUE weakness and numbness after 09/17/21 breast surgery- CT scan of head negative; unable to do MRI due to ICD Per PCP records 10/22/21= "[place] her post op RUE sx related to possible small stroke/TIA" Hypothyroidism Insomnia Ischemic cardiomyopathy Left bundle branch block Nausea and vomiting after administration of anesthetic agent severe PONV s/p Left carotid surgery 09/27/21 at [facility] NSTEMI (non-ST elevated myocardial infarction) Most recent 12/2019 (mild per patient) PAD (peripheral artery disease) S/p TOOL AND DIE MAKER LEVEL FIVE and stenting of right SFA, and TOOL AND [employer]KER LEVEL FIVE of left SFA and common femoral artery PAF (paroxysmal atrial fibrillation) Pulmonary hypertension RVSP 40-45mmHg on 10/2020 ECHO Rheumatoid arthritis No medications Followed with rheum in the past- no recent issues Right knee pain Secondary hyperparathyroidism of renal origin SOB (shortness of breath) on exertion Spondylosis Subclavian artery stenosis Past Family History Family History Daughter Coronary heart disease Cardiac stent Diabetes Mother , 83yo Diabetes Family history of hypercholesterolemia Myocardial infarction Hypertension Stroke Brother Colorectal cancer 1/2 brother Father , Accident in war Brother Diabetes 1/2 brother;Complications of DM Family/Other Myocardial infarction 1/2 sister Son Coronary heart disease Cardiac stent Hypertension Other Pacemaker Denies family history of Ovarian cancer Prostate cancer Breast cancer Past Surgical History Surgical History H/O colonoscopy H/O heart artery stent H/O: section History of appendectomy History of cardiac cath TOTAL 6? STENTS- 2018 and 2019 History of cataract surgery right and left History of cholecystectomy History of hysterectomy History of left-sided carotid endarterectomy (09/27/21) redo L CEA, Dr Bateman History of oophorectomy S/P angioplasty (02/03/21) TOOL AND DIE MAKER LEVEL FIVE L SFA S/P carotid endarterectomy B/l 2016 S/P coronary artery stent placement (10/2017) NATY to mid LAD S/P coronary artery stent placement (10/2018) NATY prox mid LAD 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) S/P thoracentesis (03/2020) b/l d/t CHF Status post partial mastectomy of right breast (09/17/21) 09/17/21 - Done under [facility] with LMA #4. Atraumatic LMA insertion. Magnet placed secondary to pacemaker. Right Breast Partial Mastectomy with [place] Supervisor Matrix Localization, Right Axillary [place] Lymph Node Biopsy(Right) - Hua Acosta DO Social History Smoking Status: Never smoker Hx Alcohol Use: No Hx Substance Use: No substance use type: does not use Physical Exam Vital Signs Last Vital Signs Temp 36.7 C 11/25/21 07:29 Pulse 68 11/26/21 02:12 Resp 18 11/26/21 02:12 BP 140/74 11/26/21 02:12 Pulse Ox 98 11/26/21 02:12 Testing Laboratory Results 11/26/21 05:13 11/26/21 05:13 Hemoglobin A1c 6.4 % (4.5-5.6) H 11/26/21 05:13 11/26/21 09:24 POC Glucose 215 H Electrocardiogram Date: 11/24/21 ventricular pacing rate 62 Chest X-Ray Date: 11/24/21 right lower lung atelectasis vs consolidation Echocardiogram Date: 11/16/21 EF: 40% Valvular Disease: + MR (moderate) moderate TR properly functioning aortic valve replacement
[2021-11-26] MEDS ORDERED: PROPOFOL IV EMULSION 10 MG/ML 20 ML VIAL IV ONE (11:33)
--- NOTE | 2021-11-26 11:45 | Cardioversion ---
Date of Service November 26, 2021 PG Electrical Cardioversion Rp Electrical Cardioversion Report Procedure performed: Cardioversion Indication: Atrial Fibrillation Staff game trapper: Petey Sanchez MD Procedure in detail: The patient was informed of the risks benefits and alternatives to the intended procedure. He understood such which proceed. He was taken to the cardiac catheterization suite holding area. A general anesthetic was administered by the Anesthesiology Service. Once appropriately anesthetized, the patient was cardioverted using 360 joules delivered in a biphasic fashion. This returned the patient to sinus rhythm. The patient tolerated procedure well, there were no immediate complications. Patient was neurologically intact subsequent to the procedure. Impression: Successful cardioversion from atrial fibrillation to normal sinus rhythm Coding Level of Care Code Cardioversion, elective Additional Codes Electrical Cardioversion Report ([id number])
--- NOTE | 2021-11-26 12:45 | Hospitalist Progress Note ---
Date of Service November 26, 2021 Assessment & Plan (1) Ambulatory dysfunction: Plan: -Patient had a fall at home now cannot walk bilateral knees were evaluated ER with CT scan of both knees showing no fractures -orthopedic evaluation recommends symptoms control and PT/OT (2) HFrEF (heart failure with reduced ejection fraction): Plan: -Patient has a history of both systolic and diastolic heart failure last ejection fraction was 85% patient is maintained on diuretics beta-blockers. -There is some concern that her atrial flutter may be contributing and she was taken for cardioversion today 11/[address] Sanchez -Patient is maintained on Bumex, Brilinta, apixaban, carvedilol, and Ranexa -for her atrial flutter rhythm she is on amiodarone and digoxin in addition to pacemaker (3) DM II (diabetes mellitus, type II), controlled: Plan: -Diabetic diet, continue insulin mealtime coverage, accuchecks AC and HS -Blood sugars variable, A1c 6.4% (4) CKD (chronic kidney disease) stage 4, GFR 15-29 ml/min: Plan: -Follow creatinine (appears baseline ~2.0) reduce Bumex to once a day -Continue following volume status with her heart failure -Patient continues on vitamin D3, Calcitrol, iron (5) Malignant neoplasm of central portion of right breast in female, estrogen receptor positive: Plan: -Continue anastrozole (6) Pulmonary hypertension: Plan: -Patient maintained on diuretics (7) S/P TAVR (transcatheter aortic valve replacement): Plan: -Maintains anticoagulation with apixaban (8) Chronic obstructive pulmonary disease, unspecified: Plan: -No inhalers -oxygenating well on room air (9) Hypothyroidism: Plan: -Remains on Synthroid TSH taken on admission on 11/24/2021 is appropriate at 2.3 (10) DVT prophylaxis: Plan: -Apixaban (renal dose adjusted) which she takes chronically provides DVT prevention Plan: As above Continue PT/OT Case management consult for d/c planning -- will need acute rehab Admission and Anticipated Discharge Date Admission Date: November 24, 2021 Subjective Patient seen on rounds this morning. She reports that her knees still hurt but she does feel that her pain is improving. Denies dyspnea at rest. No cough, c hest pain, n/v/d. Review of Systems Review of Systems: CONSTITUTIONAL: +fatigue. Denies weight loss/gain, fever and chills, malaise, generalized weakness. HEENT: Denies changes in vision and hearing. RESPIRATORY: Denies SOB, cough, wheezing. CV: +orthopnea and LE edema. Denies palpitations, CP, PND. GI: Denies abdominal pain, nausea, vomiting and diarrhea. : Denies dysuria and urinary frequency, urgency, hesitancy. MUSCULOSKELETAL: +b/l knee pain, worse w/ movement. SKIN: Denies rash and pruritus. NEUROLOGICAL: Denies headache, syncope, focal weakness, numbness, tingling. PSYCHIATRIC: Denies recent changes in mood. Denies anxiety and depression. Physical Exam Physical Exam: GENERAL: 81 yo well-developed, well-nourished elderly WF. NAD. LUNGS: Clear to auscultation bilaterally. No W/R/R. CARDIOVASCULAR: Irregularly irregular w/ 2-3/6 BARRY. No JVD. ABDOMEN: Soft, non-tender and non-distended. BS normal x 4 quad. EXTREMITIES: Trace to 1+ edema b/l LE. Tenderness over both knees. Peripheral pulses +2/4. NEUROLOGIC: A&O x3. PSYCHIATRIC: Cooperative. Appropriate mood and affect. SKIN: Warm, dry, intact. No rashes or lesions. Ecchymosis overtop both knees. Results & Data Results & Data ([facility]) Vital Signs (Past 12 Hours) Vital Signs Pulse Resp BP Pulse Ox 11/26/21 11:54 65 18 111/66 95 11/26/21 11:45 62 18 111/59 L 95 11/26/21 11:30 77 18 103/58 L 95 11/26/21 10:50 70 18 173/93 H 100 11/26/21 08:00 68 18 158/70 H 94 11/26/21 02:12 68 18 140/74 98 Laboratory Results 11/26/21 05:13 11/26/21 05:13 PG Care Time/CCT Total # of Minutes Spent Total Time Spent with Patient: Total time spent is greater than 50% in coordination of care (as documented) at patient's floor/unit and/or counseling patient: Coding Level of Care Code 28803 Subseq Hosp Care Lvl 2 Diagnoses Ambulatory dysfunction R26.2 HFrEF (heart failure with reduced ejection fraction) I50.20 DM II (diabetes mellitus, type II), controlled E11.21; Z79.4 Diabetes mellitus skilled nursing insulin use: with skilled nursing use Diabetes mellitus complication status: with kidney complications Diabetes mellitus complication detail: with nephropathy CKD (chronic kidney disease) stage 4, GFR 15-29 ml/min N18.4 Malignant neoplasm of central portion of right breast in female, estrogen receptor positive C50.111; Z17.0 Pulmonary hypertension I27.20 S/P TAVR (transcatheter aortic valve replacement) Z95.2 Chronic obstructive pulmonary disease, unspecified J44.9 Hypothyroidism E03.9 DVT prophylaxis Z29.9 (1) DM II (diabetes mellitus, type II), controlled Diabetes mellitus supervisor intermediates insulin use: with supervisor intermediates use Diabetes mellitus complication status: with kidney complications Diabetes mellitus complication detail: with nephropathy Qualified Code(s): E11.21 - Type 2 diabetes mellitus with diabetic nephropathy; Z79.4 - terminal computer operator (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
--- NOTE | 2021-11-26 12:51 | Anesthesiology Progress Note ---
Date of Service November 26, 2021 Anesthesia Post Procedure Vital Signs Vital Signs: Pulse Resp BP Pulse Ox Pulse Ox 11/26/21 11:54 65 18 111/66 95 11/26/21 11:45 62 18 111/59 L 95 11/26/21 11:30 77 18 103/58 L 95 11/26/21 10:50 70 18 173/93 H 100 11/26/21 08:00 68 18 158/70 H 94 11/26/21 02:12 68 18 140/74 98 11/25/21 19:43 67 18 125/70 96 11/25/21 17:30 72 16 139/90 94 11/25/21 14:00 64 16 141/78 H 93 11/25/21 13:04 92 Transfer of Care Handoff Completed per policy Notes Mental Status: alert / awake / arousable Patient Amnestic to Procedure: Yes Nausea / Vomiting: adequately controlled Pain: adequately controlled Airway Patency, RR, SpO2: stable & adequate BP & HR: stable & adequate Hydration State: stable & adequate Anesthetic Complications: no major complications apparent
[2021-11-26] MEDS: FERROUS SULFATE 325 MG TAB PO SCH (14:06)
[2021-11-26] MEDS: CALCITRIOL 0.25 MCG CAPSULE PO SCH (14:06)
[2021-11-26] MEDS: DIGOXIN 0.125 MG TAB PO SCH (16:02)
[2021-11-26] MEDS: OMEGA-3 (PURIFIED FISH OIL) 1 GM CAP PO SCH (20:33)
[2021-11-26] MEDS: MAGNESIUM OXIDE 400 MG TAB PO SCH (20:34)
[2021-11-26] MEDS: POLYETHYLENE (MIRALAX) 17 GM PACK PO SCH (20:34)
[2021-11-26] MEDS: oxyCODONE HCL IR 5 MG TAB (IMMEDIATE RELEASE) PO PRN (23:33)
[2021-11-27] MEDS: LEVOTHYROXINE SODIUM 75 MCG TABLET PO SCH (06:16)
[2021-11-27] MEDS: INSULIN ASPART PER UNIT SC SCH ×4 (08:38→20:56)
[2021-11-27] MEDS: MULTIVITAMIN TAB PO SCH (08:39)
[2021-11-27] MEDS: RANOLAZINE 500 MG ER TAB PO SCH ×2 (08:39→21:04)
[2021-11-27] MEDS: BUMETANIDE 1 MG TAB PO SCH ×2 (08:39→16:51)
[2021-11-27] MEDS: APIXABAN 2.5 MG TAB PO SCH ×2 (08:39→21:00)
[2021-11-27] MEDS: carvediloL 3.125 MG TAB PO SCH ×2 (08:39→16:51)
[2021-11-27] MEDS: CHOLECALCIFEROL 1,000 UNITS 25 MCG TAB PO SCH (08:39)
[2021-11-27] MEDS: AMIODARONE 200 MG TAB PO SCH ×2 (08:39→20:58)
[2021-11-27] MEDS: TICAGRELOR 90 MG TAB PO SCH ×2 (08:39→21:04)
[2021-11-27] MEDS: ANASTROZOLE 1 MG TAB PO SCH (08:39)
[2021-11-27] MEDS: PANTOprazole 40 MG TAB PO SCH ×2 (08:39→21:02)
[2021-11-27] MEDS: TOCOPHERYL, DL-ALPHA 400 UNITS 180 MG CAP PO SCH (08:39)
[2021-11-27] MEDS: ACETAMINOPHEN 500 MG TAB PO SCH ×3 (08:40→20:59)
[2021-11-27] MEDS: DICLOFENAC SOD 1% GEL 100 GM TUBE EXT SCH ×2 (08:40→21:00)
[2021-11-27 09:17] LABS: BUN Creatinine Ratio 20.7 (10-20); Calcium 8.9 mg/dl (8.5-10.1); Est GFR (African American) 27.4 ml/min; Est GFR (Non-African American) 23.7 ml/min; Potassium 4.4 mmol/L (3.5-5.1)
[2021-11-27] MEDS: oxyCODONE HCL IR 5 MG TAB (IMMEDIATE RELEASE) PO PRN ×2 (11:31→21:00)
--- NOTE | 2021-11-27 12:48 | Hospitalist Progress Note ---
Date of Service November 27, 2021 Assessment & Plan (1) Ambulatory dysfunction: Plan: -Patient had a fall at home now cannot walk bilateral knees were evaluated ER with CT scan of both knees showing no fractures -orthopedic evaluation recommends symptoms control and PT/OT -awaiting rehab placement at this time. (2) HFrEF (heart failure with reduced ejection fraction): Plan: -Patient has a history of both systolic and diastolic heart failure last ejection fraction was 85% patient is maintained on diuretics beta-blockers. -There is some concern that her atrial flutter may be contributing and she was taken for cardioversion 11/[address] Sanchez -Patient is maintained on Bumex, Brilinta, apixaban, carvedilol, and Ranexa -for her atrial flutter rhythm she is on amiodarone and digoxin in addition to pacemaker (3) DM II (diabetes mellitus, type II), controlled: Plan: -Diabetic diet, continue insulin mealtime coverage, accuchecks AC and HS -Blood sugars variable, A1c 6.4% (4) CKD (chronic kidney disease) stage 4, GFR 15-29 ml/min: Plan: -Follow creatinine (appears baseline ~2.0) -Continue following volume status with her heart failure -Patient continues on vitamin D3, Calcitrol, iron -Continue on her usual twice a day dose of Bumex to maintain euvolemic state (5) Malignant neoplasm of central portion of right breast in female, estrogen receptor positive: Plan: -Continue anastrozole (6) Pulmonary hypertension: Plan: -Patient maintained on diuretics (7) S/P TAVR (transcatheter aortic valve replacement): Plan: -Maintains anticoagulation with apixaban (8) Chronic obstructive pulmonary disease, unspecified: Plan: -No inhalers -oxygenating well on room air (9) Hypothyroidism: Plan: -Remains on Synthroid TSH taken on admission on 11/24/2021 is appropriate at 2.3 (10) DVT prophylaxis: Plan: -Apixaban (renal dose adjusted) which she takes chronically provides DVT prevention Plan: As above Continue PT/OT Case management consult for d/c planning -- will need acute rehab Admission and Anticipated Discharge Date Admission Date: November 24, 2021 Subjective Reports her breathing is at baseline. Awaiting rehab placement at this time. Remains in normal sinus rhythm after cardioversion yesterday. No significant change in knee pain previously evaluated by orthopedics. Review of Systems Review of Systems: All systems reviewed & are unremarkable except as noted in Subjective Physical Exam Constitutional: WD/WN, vitals as above Respiratory: normal respiratory effort Auscultation: lungs clear to auscultation bilaterally Cardiovascular: Rate/Rhythm: regular rate and regular rhythm Heart Sounds: + murmur (systolic) Extremities: + pedal edema (1+ pretibial b/l equal) Gastrointestinal (Abdomen): Percussion/Palpation: abdomen soft; abdomen nontender Skin: no rashes, warm and dry Psychiatric: A+Ox3, euthymic affect Results & Data Results & Data ([facility]) Vital Signs (Past 12 Hours) Vital Signs Temp Pulse Pulse Resp BP BP Pulse Ox 11/27/21 12:11 36.5 C 61 20 142/84 H 95 11/27/21 11:10 59 L 11/27/21 08:05 36.4 C L 63 20 144/76 H 92 11/27/21 03:40 36.7 C 60 18 146/66 H 90 PG Care Time/CCT Total # of Minutes Spent Total Time Spent with Patient: Total time spent is greater than 50% in coordination of care (as documented) at patient's floor/unit and/or counseling patient: Coding Level of Care Code 83638 Subseq Hosp Care Lvl 1 Diagnoses Ambulatory dysfunction R26.2 HFrEF (heart failure with reduced ejection fraction) I50.20 DM II (diabetes mellitus, type II), controlled E11.21; Z79.4 Diabetes mellitus complication detail: with nephropathy Diabetes mellitus complication status: with kidney complications Diabetes mellitus fdc insulin use: with area intelligence technician use CKD (chronic kidney disease) stage 4, GFR 15-29 ml/min N18.4 Malignant neoplasm of central portion of right breast in female, estrogen receptor positive C50.111; Z17.0 Pulmonary hypertension I27.20 S/P TAVR (transcatheter aortic valve replacement) Z95.2 Chronic obstructive pulmonary disease, unspecified J44.9 Hypothyroidism E03.9 DVT prophylaxis Z29.9 (1) DM II (diabetes mellitus, type II), controlled Diabetes mellitus complication detail: with nephropathy Diabetes mellitus complication status: with kidney complications Diabetes mellitus fdc insulin use: with fdc use Qualified Code(s): E11.21 - Type 2 diabetes mellitus with diabetic nephropathy; Z79.4 - custodial (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
[2021-11-27] MEDS: OMEGA-3 (PURIFIED FISH OIL) 1 GM CAP PO SCH (21:01)
[2021-11-27] MEDS: MAGNESIUM OXIDE 400 MG TAB PO SCH (21:02)
[2021-11-27] MEDS: POLYETHYLENE (MIRALAX) 17 GM PACK PO SCH (21:03)
[2021-11-28] MEDS: LEVOTHYROXINE SODIUM 75 MCG TABLET PO SCH (06:09)
[2021-11-28] MEDS: ACETAMINOPHEN 500 MG TAB PO SCH ×3 (08:16→20:52)
[2021-11-28] MEDS: PANTOprazole 40 MG TAB PO SCH ×2 (08:17→20:55)
[2021-11-28] MEDS: INSULIN ASPART PER UNIT SC SCH ×4 (08:17→20:56)
[2021-11-28] MEDS: CHOLECALCIFEROL 1,000 UNITS 25 MCG TAB PO SCH (08:17)
[2021-11-28] MEDS: BUMETANIDE 1 MG TAB PO SCH ×2 (08:17→17:29)
[2021-11-28] MEDS: TOCOPHERYL, DL-ALPHA 400 UNITS 180 MG CAP PO SCH (08:18)
[2021-11-28] MEDS: RANOLAZINE 500 MG ER TAB PO SCH ×2 (08:18→20:56)
[2021-11-28] MEDS: carvediloL 3.125 MG TAB PO SCH ×2 (08:18→17:30)
[2021-11-28] MEDS: APIXABAN 2.5 MG TAB PO SCH ×2 (08:18→20:55)
[2021-11-28] MEDS: AMIODARONE 200 MG TAB PO SCH ×2 (08:18→20:53)
[2021-11-28] MEDS: MULTIVITAMIN TAB PO SCH (08:18)
[2021-11-28] MEDS: TICAGRELOR 90 MG TAB PO SCH ×2 (08:18→20:56)
[2021-11-28] MEDS: ANASTROZOLE 1 MG TAB PO SCH (08:18)
[2021-11-28] MEDS: DICLOFENAC SOD 1% GEL 100 GM TUBE EXT SCH ×2 (08:19→20:57)
[2021-11-28 09:01] LABS: Hematocrit (blood only) 37.3 % (37-47); Hemoglobin 11.6 g/dL (12.0-16.0); Mean Corpuscular Hemoglobin 32.3 pg (25-34); Mean Corpuscular Hgb Conc 31.1 g/dL (32-36); Mean Corpuscular Volume 103.9 fL (80-100); Mean Platelet Volume 11.1 fL (7.4-10.4); Platelet Count 270 K/uL (130-400); RDW Coefficient of Variation 14.9 % (11.5-14.5); RDW Standard Deviation 56.2 fL (36.4-46.3); Red Blood Count 3.59 M/uL (4.2-5.4); White Blood Count 7.63 K/uL (4.8-10.8)
[2021-11-28 09:20] LABS: BUN Creatinine Ratio 20.1 (10-20); Creatinine Clr Calc Pharmacy 25.7 ml/min; Est GFR (African American) 28.1 ml/min; Est GFR (Non-African American) 24.3 ml/min; Potassium 4.3 mmol/L (3.5-5.1)
[2021-11-28] MEDS: oxyCODONE HCL IR 5 MG TAB (IMMEDIATE RELEASE) PO PRN ×2 (12:23→20:52)
--- NOTE | 2021-11-28 13:01 | Hospitalist Progress Note ---
Date of Service November 28, 2021 Assessment & Plan (1) Ambulatory dysfunction: Plan: -Patient had a fall at home now cannot walk bilateral knees were evaluated ER with CT scan of both knees showing no fractures. US venous doppler today due to continued calf pain negative for DVT - suspect just from contusion. -orthopedic evaluation recommends symptoms control and PT/OT -awaiting rehab placement at this time. (2) HFrEF (heart failure with reduced ejection fraction): Plan: -Patient has a history of both systolic and diastolic heart failure last ejection fraction was 85% patient is maintained on diuretics beta-blockers. -There is some concern that her atrial flutter may be contributing and she was taken for cardioversion 11/[address] Sanchez -Patient is maintained on Bumex, Brilinta, apixaban, carvedilol, and Ranexa -for her atrial flutter rhythm she is on amiodarone and digoxin in addition to pacemaker (3) DM II (diabetes mellitus, type II), controlled: Plan: -Diabetic diet, continue insulin mealtime coverage, accuchecks AC and HS -Blood sugars variable, A1c 6.4% (4) CKD (chronic kidney disease) stage 4, GFR 15-29 ml/min: Plan: -Follow creatinine (appears baseline ~2.0) -Continue following volume status with her heart failure -Patient continues on vitamin D3, Calcitrol, iron -Continue on her usual twice a day dose of Bumex to maintain euvolemic state (5) Malignant neoplasm of central portion of right breast in female, estrogen receptor positive: Plan: -Continue anastrozole (6) Pulmonary hypertension: Plan: -Patient maintained on diuretics (7) S/P TAVR (transcatheter aortic valve replacement): Plan: -Maintains anticoagulation with apixaban (8) Chronic obstructive pulmonary disease, unspecified: Plan: -No inhalers -oxygenating well on room air (9) Hypothyroidism: Plan: -Remains on Synthroid TSH taken on admission on 11/24/2021 is appropriate at 2.3 (10) DVT prophylaxis: Plan: -Apixaban (renal dose adjusted) which she takes chronically provides DVT prevention Plan: As above Continue PT/OT Case management consult for d/c planning -- medically stable pending rehab placement at this time Admission and Anticipated Discharge Date Admission Date: November 27, 2021 Subjective Reports her breathing is at baseline. Awaiting rehab placement at this time due to continued knee pain from contusion. After exacerbating it 2 days ago she reports her right calf/knee is still painful but improving. Remains in paced rhythm after cardioversion. No significant change in knee pain since previously evaluated by orthopedics. Review of Systems Review of Systems: All systems reviewed & are unremarkable except as noted in Subjective Physical Exam Constitutional: WD/WN, vitals as above Respiratory: normal respiratory effort Auscultation: lungs clear to auscultation bilaterally Cardiovascular: Rate/Rhythm: regular rate and regular rhythm Heart Sounds: + murmur (systolic) Extremities: + pedal edema (1+ pretibial b/l R > L) Gastrointestinal (Abdomen): Percussion/Palpation: abdomen soft; abdomen nontender Skin: no rashes, warm and dry Psychiatric: A+Ox3, euthymic affect Results & Data Results & Data ([facility]) Vital Signs (Past 12 Hours) Vital Signs Temp Pulse Pulse Resp BP Pulse Ox 11/28/21 12:22 36.5 C 60 20 161/57 H 94 11/28/21 10:02 73 11/28/21 07:00 36.6 C 62 20 183/76 H 91 11/28/21 04:00 36.6 C 61 20 149/71 H 93 PG Care Time/CCT Total # of Minutes Spent Total Time Spent with Patient: Total time spent is greater than 50% in coordination of care (as documented) at patient's floor/unit and/or counseling patient: Coding Level of Care Code 45201 Subseq Hosp Care Lvl 1 Diagnoses Ambulatory dysfunction R26.2 HFrEF (heart failure with reduced ejection fraction) I50.20 DM II (diabetes mellitus, type II), controlled E11.21; Z79.4 Diabetes mellitus complication detail: with nephropathy Diabetes mellitus complication status: with kidney complications Diabetes mellitus handbag stitcher insulin use: with usp use CKD (chronic kidney disease) stage 4, GFR 15-29 ml/min N18.4 Malignant neoplasm of central portion of right breast in female, estrogen receptor positive C50.111; Z17.0 Pulmonary hypertension I27.20 S/P TAVR (transcatheter aortic valve replacement) Z95.2 Chronic obstructive pulmonary disease, unspecified J44.9 Hypothyroidism E03.9 DVT prophylaxis Z29.9 (1) DM II (diabetes mellitus, type II), controlled Diabetes mellitus complication detail: with nephropathy Diabetes mellitus complication status: with kidney complications Diabetes mellitus usp insulin use: with usp use Qualified Code(s): E11.21 - Type 2 diabetes mellitus with diabetic nephropathy; Z79.4 - case worker (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
--- NOTE | 2021-11-28 15:02 | Ultrasound Report ---
US venous doppler LE RT CLINICAL HISTORY: r/o DVT, swollen right painful calf COMPARISON: None available at the time of this dictation. TECHNIQUE: Right lower extremity real-time compression venous ultrasound with Color Doppler imaging. Utilizing real-time ultrasonic imaging multiple real time high-resolution ultrasonic images with comp ression and noncompression maneuvers of the deep venous system in addition to color doppler imaging w ere performed from the common femoral vein through the proximal calf veins. FINDINGS: Currently there is normal compressibility of the deep venous system from the common femoral vein thro ugh the proximal calf veins. No current evidence of acute thrombosis is identified. Impression: No evidence of deep venous thrombus. ACT 112: Negative or not required by law. Electronically signed by: Gato Nagel M.D. 11/28/2021 3:01 PM
[2021-11-28] MEDS: MAGNESIUM OXIDE 400 MG TAB PO SCH (20:53)
[2021-11-28] MEDS: OMEGA-3 (PURIFIED FISH OIL) 1 GM CAP PO SCH (20:55)
[2021-11-28] MEDS: POLYETHYLENE (MIRALAX) 17 GM PACK PO SCH (20:56)
[2021-11-29] MEDS: LEVOTHYROXINE SODIUM 75 MCG TABLET PO SCH (06:19)
[2021-11-29] MEDS: TOCOPHERYL, DL-ALPHA 400 UNITS 180 MG CAP PO SCH (08:28)
[2021-11-29] MEDS: ANASTROZOLE 1 MG TAB PO SCH (08:29)
[2021-11-29] MEDS: BUMETANIDE 1 MG TAB PO SCH ×2 (08:29→17:28)
[2021-11-29] MEDS: CHOLECALCIFEROL 1,000 UNITS 25 MCG TAB PO SCH (08:29)
[2021-11-29] MEDS: RANOLAZINE 500 MG ER TAB PO SCH ×2 (08:29→20:03)
[2021-11-29] MEDS: APIXABAN 2.5 MG TAB PO SCH ×2 (08:29→20:02)
[2021-11-29] MEDS: AMIODARONE 200 MG TAB PO SCH ×2 (08:29→20:02)
[2021-11-29] MEDS: MULTIVITAMIN TAB PO SCH (08:29)
[2021-11-29] MEDS: TICAGRELOR 90 MG TAB PO SCH ×2 (08:30→20:03)
[2021-11-29] MEDS: carvediloL 3.125 MG TAB PO SCH ×2 (08:30→17:28)
[2021-11-29] MEDS: DICLOFENAC SOD 1% GEL 100 GM TUBE EXT SCH ×2 (08:30→20:02)
[2021-11-29] MEDS: PANTOprazole 40 MG TAB PO SCH ×2 (08:30→20:03)
[2021-11-29] MEDS: ACETAMINOPHEN 500 MG TAB PO SCH ×3 (08:35→20:13)
[2021-11-29] MEDS: INSULIN ASPART PER UNIT SC SCH ×4 (08:35→20:20)
[2021-11-29] MEDS: CALCITRIOL 0.25 MCG CAPSULE PO SCH (12:20)
[2021-11-29] MEDS: FERROUS SULFATE 325 MG TAB PO SCH (12:21)
[2021-11-29] MEDS: DIGOXIN 0.125 MG TAB PO SCH (17:28)
[2021-11-29] MEDS: MAGNESIUM OXIDE 400 MG TAB PO SCH (20:02)
[2021-11-29] MEDS: OMEGA-3 (PURIFIED FISH OIL) 1 GM CAP PO SCH (20:02)
[2021-11-29] MEDS: POLYETHYLENE (MIRALAX) 17 GM PACK PO SCH (20:04)
--- NOTE | 2021-11-29 20:13 | Hospitalist Progress Note ---
Date of Service November 29, 2021 Assessment & Plan (1) Ambulatory dysfunction: Plan: -Patient had a fall at home now cannot walk bilateral knees were evaluated ER with CT scan of both knees showing no fractures. US venous doppler today due to continued calf pain negative for DVT - suspect just from contusion. -orthopedic evaluation recommends symptoms control and PT/OT -awaiting rehab placement at this time. (2) HFrEF (heart failure with reduced ejection fraction): Plan: -Patient has a history of both systolic and diastolic heart failure last ejection fraction was 85% patient is maintained on diuretics beta-blockers. -There is some concern that her atrial flutter may be contributing and she was taken for cardioversion 11/[address] Sanchez -Patient is maintained on Bumex, Brilinta, apixaban, carvedilol, and Ranexa -for her atrial flutter rhythm she is on amiodarone and digoxin in addition to pacemaker (3) DM II (diabetes mellitus, type II), controlled: Plan: -Diabetic diet, continue insulin mealtime coverage, accuchecks AC and HS -Blood sugars variable, A1c 6.4% (4) CKD (chronic kidney disease) stage 4, GFR 15-29 ml/min: Plan: -Follow creatinine (appears baseline ~2.0) -Continue following volume status with her heart failure -Patient continues on vitamin D3, Calcitrol, iron -Continue on her usual twice a day dose of Bumex to maintain euvolemic state (5) Malignant neoplasm of central portion of right breast in female, estrogen receptor positive: Plan: -Continue anastrozole (6) Pulmonary hypertension: Plan: -Patient maintained on diuretics (7) S/P TAVR (transcatheter aortic valve replacement): Plan: -Maintains anticoagulation with apixaban (8) Chronic obstructive pulmonary disease, unspecified: Plan: -No inhalers -oxygenating well on room air (9) Hypothyroidism: Plan: -Remains on Synthroid TSH taken on admission on 11/24/2021 is appropriate at 2.3 (10) DVT prophylaxis: Plan: -Apixaban (renal dose adjusted) which she takes chronically provides DVT prevention Plan: As above Continue PT/OT Case management consult for d/c planning -- remains medically stable pending rehab placement at this time Admission and Anticipated Discharge Date Admission Date: November 27, 2021 Subjective No acute concerns or questions. Medically stable awaiting rehab placement at this time. Review of Systems Review of Systems: All systems reviewed & are unremarkable except as noted in Subjective Physical Exam Constitutional: WD/WN, vitals as above Respiratory: normal respiratory effort Auscultation: lungs clear to auscultation bilaterally Cardiovascular: Rate/Rhythm: regular rate and regular rhythm Heart Sounds: + murmur (systolic) Extremities: + pedal edema (1+ pretibial b/l R > L) Gastrointestinal (Abdomen): Percussion/Palpation: abdomen soft; abdomen nontender Skin: no rashes, warm and dry Psychiatric: A+Ox3, euthymic affect Results & Data Results & Data ([facility]) Vital Signs (Past 12 Hours) Vital Signs Temp Pulse Pulse Resp BP BP Pulse Ox 11/29/21 19:00 36.6 C 62 18 113/65 95 11/29/21 17:28 62 11/29/21 15:18 36.5 C 61 18 178/84 H 93 11/29/21 11:14 36.5 C 62 18 151/66 H 94 11/29/21 08:36 96/60 L 178/69 H PG Care Time/CCT Total # of Minutes Spent Total Time Spent with Patient: Total time spent is greater than 50% in coordination of care (as documented) at patient's floor/unit and/or counseling patient: Coding Level of Care Code 28075 Subseq Hosp Care Lvl 1 Diagnoses Ambulatory dysfunction R26.2 HFrEF (heart failure with reduced ejection fraction) I50.20 DM II (diabetes mellitus, type II), controlled E11.21; Z79.4 Diabetes mellitus complication detail: with nephropathy Diabetes mellitus complication status: with kidney complications Diabetes mellitus iron carrier insulin use: with alf use CKD (chronic kidney disease) stage 4, GFR 15-29 ml/min N18.4 Malignant neoplasm of central portion of right breast in female, estrogen receptor positive C50.111; Z17.0 Pulmonary hypertension I27.20 S/P TAVR (transcatheter aortic valve replacement) Z95.2 Chronic obstructive pulmonary disease, unspecified J44.9 Hypothyroidism E03.9 DVT prophylaxis Z29.9 (1) DM II (diabetes mellitus, type II), controlled Diabetes mellitus complication detail: with nephropathy Diabetes mellitus complication status: with kidney complications Diabetes mellitus alf insulin use: with alf use Qualified Code(s): E11.21 - Type 2 diabetes mellitus with diabetic nephropathy; Z79.4 - guardian family member (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
[2021-11-30] MEDS: LEVOTHYROXINE SODIUM 75 MCG TABLET PO SCH (06:30)
[2021-11-30 07:51] LABS: Hematocrit (blood only) 36.6 % (37-47); Hemoglobin 11.3 g/dL (12.0-16.0); Mean Corpuscular Hemoglobin 31.8 pg (25-34); Mean Corpuscular Hgb Conc 30.9 g/dL (32-36); Mean Corpuscular Volume 103.1 fL (80-100); Mean Platelet Volume 10.8 fL (7.4-10.4); Platelet Count 249 K/uL (130-400); RDW Standard Deviation 56.3 fL (36.4-46.3); Red Blood Count 3.55 M/uL (4.2-5.4); White Blood Count 6.88 K/uL (4.8-10.8)
[2021-11-30] MEDS: RANOLAZINE 500 MG ER TAB PO SCH ×2 (08:46→21:52)
[2021-11-30] MEDS: PANTOprazole 40 MG TAB PO SCH ×2 (08:46→21:51)
[2021-11-30] MEDS: AMIODARONE 200 MG TAB PO SCH ×2 (08:46→21:48)
[2021-11-30] MEDS: TICAGRELOR 90 MG TAB PO SCH ×2 (08:46→21:52)
[2021-11-30] MEDS: MULTIVITAMIN TAB PO SCH (08:46)
[2021-11-30] MEDS: DICLOFENAC SOD 1% GEL 100 GM TUBE EXT SCH ×2 (08:46→21:49)
[2021-11-30] MEDS: BUMETANIDE 1 MG TAB PO SCH ×2 (08:46→18:04)
[2021-11-30] MEDS: TOCOPHERYL, DL-ALPHA 400 UNITS 180 MG CAP PO SCH (08:46)
[2021-11-30] MEDS: CHOLECALCIFEROL 1,000 UNITS 25 MCG TAB PO SCH (08:46)
[2021-11-30] MEDS: ANASTROZOLE 1 MG TAB PO SCH (08:46)
[2021-11-30] MEDS: carvediloL 3.125 MG TAB PO SCH ×3 (08:47→18:07)
[2021-11-30] MEDS: APIXABAN 2.5 MG TAB PO SCH ×2 (08:47→21:48)
[2021-11-30] MEDS: INSULIN ASPART PER UNIT SC SCH ×4 (08:47→21:50)
[2021-11-30] MEDS: ACETAMINOPHEN 500 MG TAB PO SCH ×3 (08:48→21:54)
--- NOTE | 2021-11-30 17:09 | Hospitalist Progress Note ---
Date of Service November 30, 2021 Assessment & Plan (1) Ambulatory dysfunction: Plan: - Patient had a fall at home now cannot walk bilateral knees were evaluated ER with CT scan of both knees showing no fractures. US venous doppler negative for DVT - orthopedic evaluation recommends symptoms control and PT/OT - awaiting rehab placement at this time. (2) HFrEF (heart failure with reduced ejection fraction): Plan: -Patient has a history of both systolic and diastolic heart failure last ejection fraction was 85% patient is maintained on diuretics beta-blockers. -There is some concern that her atrial flutter may be contributing and she was taken for cardioversion 11/[address] Sanchez -Patient is maintained on Bumex, Brilinta, apixaban, carvedilol, and Ranexa -for her atrial flutter rhythm she is on amiodarone and digoxin in addition to pacemaker (3) DM II (diabetes mellitus, type II), controlled: Plan: -Diabetic diet, continue insulin mealtime coverage, accuchecks AC and HS -Blood sugars variable, A1c 6.4% Novolog: Goal BSG Range: Low 110 mg/dL, High 140 mg/dL Correction Factor: 25 mg/dL/unit Carbohydrate ratio = 12 g/unit BSGs ACHS if eating, q6h if npo Add Lantus 10 units daily (4) CKD (chronic kidney disease) stage 4, GFR 15-29 ml/min: Plan: -Follow creatinine (appears baseline ~2.0) -Continue following volume status with her heart failure -Patient continues on vitamin D3, Calcitrol, iron -Continue on her usual twice a day dose of Bumex to maintain euvolemic state (5) Malignant neoplasm of central portion of right breast in female, estrogen receptor positive: Plan: -Continue anastrozole (6) Pulmonary hypertension: Plan: -Patient maintained on diuretics (7) S/P TAVR (transcatheter aortic valve replacement): Plan: -Maintains anticoagulation with apixaban (8) Chronic obstructive pulmonary disease, unspecified: Plan: -No inhalers -oxygenating well on room air (9) Hypothyroidism: Plan: -Remains on Synthroid TSH taken on admission on 11/24/2021 is appropriate at 2.3 (10) DVT prophylaxis: Plan: -Apixaban (renal dose adjusted) which she takes chronically provides DVT prevention Plan: As above Continue PT/OT Case management consult for d/c planning -- remains medically stable pending rehab placement at this time, given stable rhythm on telemetry ca transfer to med/surg off the vehicle monitor technician Admission and Anticipated Discharge Date Admission Date: November 27, 2021 Subjective No acute concerns or questions. Medically stable awaiting rehab placement at this time. Review of Systems Review of Systems: All systems reviewed & are unremarkable except as noted in Subjective Physical Exam Constitutional: WD/WN, vitals as above Respiratory: normal respiratory effort Skin: no rashes, warm and dry Psychiatric: A+Ox3, euthymic affect Results & Data Results & Data ([facility]) Vital Signs (Past 12 Hours) Vital Signs Temp Pulse Pulse Resp BP Pulse Ox 11/30/21 16:00 36.7 C 60 18 94/54 L 91 11/30/21 11:00 36.4 C L 60 18 134/77 95 11/30/21 07:00 36.6 C 59 L 18 107/72 91 PG Care Time/CCT Total # of Minutes Spent Total Time Spent with Patient: Total time spent is greater than 50% in coordination of care (as documented) at patient's floor/unit and/or counseling patient: Coding Level of Care Code 29506 Subseq Hosp Care Lvl 1 Diagnoses Ambulatory dysfunction R26.2 HFrEF (heart failure with reduced ejection fraction) I50.20 DM II (diabetes mellitus, type II), controlled E11.21; Z79.4 Diabetes mellitus complication detail: with nephropathy Diabetes mellitus complication status: with kidney complications Diabetes mellitus senior living insulin use: with terminal worker use CKD (chronic kidney disease) stage 4, GFR 15-29 ml/min N18.4 Malignant neoplasm of central portion of right breast in female, estrogen receptor positive C50.111; Z17.0 Pulmonary hypertension I27.20 S/P TAVR (transcatheter aortic valve replacement) Z95.2 Chronic obstructive pulmonary disease, unspecified J44.9 Hypothyroidism E03.9 DVT prophylaxis Z29.9 (1) DM II (diabetes mellitus, type II), controlled Diabetes mellitus complication detail: with nephropathy Diabetes mellitus complication status: with kidney complications Diabetes mellitus senior living insulin use: with terminal worker use Qualified Code(s): E11.21 - Type 2 diabetes mellitus with diabetic nephropathy; Z79.4 - terminal worker (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
[2021-11-30] MEDS: OMEGA-3 (PURIFIED FISH OIL) 1 GM CAP PO SCH (21:49)
[2021-11-30] MEDS: MAGNESIUM OXIDE 400 MG TAB PO SCH (21:50)
[2021-11-30] MEDS: POLYETHYLENE (MIRALAX) 17 GM PACK PO SCH (21:55)
[2021-12-01] MEDS: LEVOTHYROXINE SODIUM 75 MCG TABLET PO SCH (05:37)
[2021-12-01] MEDS: APIXABAN 2.5 MG TAB PO SCH ×2 (07:41→20:06)
[2021-12-01] MEDS: AMIODARONE 200 MG TAB PO SCH ×2 (07:41→20:07)
[2021-12-01] MEDS: PANTOprazole 40 MG TAB PO SCH ×2 (07:41→20:06)
[2021-12-01] MEDS: MULTIVITAMIN TAB PO SCH (07:42)
[2021-12-01] MEDS: CHOLECALCIFEROL 1,000 UNITS 25 MCG TAB PO SCH (07:42)
[2021-12-01] MEDS: TICAGRELOR 90 MG TAB PO SCH ×2 (07:42→20:10)
[2021-12-01] MEDS: TOCOPHERYL, DL-ALPHA 400 UNITS 180 MG CAP PO SCH (07:42)
[2021-12-01] MEDS: BUMETANIDE 1 MG TAB PO SCH ×2 (07:42→16:58)
[2021-12-01] MEDS: DICLOFENAC SOD 1% GEL 100 GM TUBE EXT SCH ×2 (07:43→20:08)
[2021-12-01] MEDS: RANOLAZINE 500 MG ER TAB PO SCH ×2 (07:43→20:09)
[2021-12-01] MEDS: ACETAMINOPHEN 500 MG TAB PO SCH ×3 (07:48→20:04)
[2021-12-01] MEDS: carvediloL 3.125 MG TAB PO SCH ×2 (07:48→16:59)
[2021-12-01] MEDS: ANASTROZOLE 1 MG TAB PO SCH (07:51)
[2021-12-01] MEDS: INSULIN ASPART PER UNIT SC SCH ×4 (07:51→20:09)
[2021-12-01] MEDS: CALCITRIOL 0.25 MCG CAPSULE PO SCH (14:07)
[2021-12-01] MEDS: FERROUS SULFATE 325 MG TAB PO SCH (14:07)
[2021-12-01] MEDS: DIGOXIN 0.125 MG TAB PO SCH (16:58)
[2021-12-01] MEDS: MAGNESIUM OXIDE 400 MG TAB PO SCH (20:05)
[2021-12-01] MEDS: OMEGA-3 (PURIFIED FISH OIL) 1 GM CAP PO SCH (20:08)
[2021-12-01] MEDS: POLYETHYLENE (MIRALAX) 17 GM PACK PO SCH (20:09)
[2021-12-02] MEDS: LEVOTHYROXINE SODIUM 75 MCG TABLET PO SCH (05:54)
[2021-12-02 06:31] LABS: BUN Creatinine Ratio 17.7 (10-20); Calcium 8.9 mg/dl (8.5-10.1); Creatinine Clr Calc Pharmacy 25.9 ml/min; Est GFR (African American) 28.7 ml/min; Est GFR (Non-African American) 24.8 ml/min; Potassium 4.2 mmol/L (3.5-5.1)
[2021-12-02] MEDS: carvediloL 3.125 MG TAB PO SCH (08:08)
[2021-12-02] MEDS: BUMETANIDE 1 MG TAB PO SCH (08:08)
[2021-12-02] MEDS: AMIODARONE 200 MG TAB PO SCH (08:08)
[2021-12-02] MEDS: DICLOFENAC SOD 1% GEL 100 GM TUBE EXT SCH (08:08)
[2021-12-02] MEDS: CHOLECALCIFEROL 1,000 UNITS 25 MCG TAB PO SCH (08:09)
[2021-12-02] MEDS: MULTIVITAMIN TAB PO SCH (08:09)
[2021-12-02] MEDS: APIXABAN 2.5 MG TAB PO SCH (08:09)
[2021-12-02] MEDS: PANTOprazole 40 MG TAB PO SCH (08:09)
[2021-12-02] MEDS: RANOLAZINE 500 MG ER TAB PO SCH (08:09)
[2021-12-02] MEDS: ANASTROZOLE 1 MG TAB PO SCH (08:09)
[2021-12-02] MEDS: TOCOPHERYL, DL-ALPHA 400 UNITS 180 MG CAP PO SCH (08:09)
[2021-12-02] MEDS: TICAGRELOR 90 MG TAB PO SCH (08:09)
[2021-12-02] MEDS: ACETAMINOPHEN 500 MG TAB PO SCH ×2 (08:16→12:24)
[2021-12-02] MEDS: INSULIN ASPART PER UNIT SC SCH ×2 (08:16→12:24)
[2021-12-02] MEDS ORDERED: INSULIN GLARGINE SOLOSTAR 100 UNITS/ML 3 ML PEN SC SCH (09:00)
--- NOTE | 2021-12-02 15:41 | Discharge Summary ---
Date of Service December 02, 2021 Admission HPI Per Admitting Provider 81-year-old female presents to the ED referrd from the slab tripper with a chief complaint of bilateral knee pain. The patient states that she fell on Monday evening. She states that she was able to get up with a walker but by Monday morning she was having more difficulty and finally yesterday she was having even more difficulty getting up and getting around. Today her daughter brought her in for a cardioversion for atrial flutter. The patient had significant difficulty getting to the hospital today. She is having significant bilateral knee pain and swelling related to her fall. She has bruising and ecchymosis to her knees and some swelling. They did not feel comfortable doing the cardioversion today and recommended that she be seen in the ED. The patient feels like she cannot go home because of her pain and difficulty walking. Did not complain of any head pain or striking her head. No loss of consciousness. No chest pains or shortness of breath. She states that her arms are not strong enough to hold her up using the walker because her legs want to give out. Her original fall occurred when she was getting off the chair and her left leg slid out from under her going 1 direction and the other leg went the opposite direction. In the ER CT of bilateral knees show intact anatomy and no fractures, she does examine with painful knees covid negative 11/22/21, 11/24/21 is negative Discharge Exam Constitutional WD/WN, vitals as above Respiratory normal respiratory effort Auscultation: lungs clear to auscultation bilaterally Cardiovascular Rate/Rhythm: regular rate and regular rhythm Heart Sounds: + murmur (systolic) Extremities: + pedal edema (1+ pretibial b/l R > L) Gastrointestinal (Abdomen) Percussion/Palpation: abdomen soft; abdomen nontender Skin no rashes, warm and dry Psychiatric A+Ox3, euthymic affect Discharge Data Allergies Allergy/AdvReac Type Severity Reaction Status Date / Time adhesive Allergy Intermediate REDNESS Verified 11/25/21 09:45 AND IRRITATION FROM PAIN PATCH, TAPE latex Allergy Intermediate ALLERGIC Verified 11/25/21 09:45 TO LATEX TAPE/RASH/ITCHING morphine Allergy Intermediate swelling Verified 11/25/21 09:45 nausea vomiting olmesartan Allergy Unknown UNKNOWN Verified 11/25/21 09:45 benzonatate AdvReac Intermediate confusion Verified 11/25/21 09:45 [From Giovanni Brennan] dulaglutide [From Trulicity] AdvReac Intermediate AFFECTS Verified 11/25/21 09:45 MUSCLES exenatide [From Byetta] AdvReac Intermediate Diarrhea Verified 11/25/21 09:45 ezetimibe AdvReac Intermediate MUSCLE Verified 11/25/21 09:45 ACHES glipizide AdvReac Intermediate Diarrhea Verified 11/25/21 09:45 glyburide AdvReac Intermediate Diarrhea Verified 11/25/21 09:45 lisinopril AdvReac Intermediate LIGHTHEADED Verified 11/25/21 09:45 AND DIZZY losartan AdvReac Intermediate dizziness Verified 11/25/21 09:45 metformin AdvReac Intermediate Diarrhea Verified 11/25/21 09:45 pioglitazone AdvReac Intermediate DIARRHEA Verified 11/25/21 09:45 NAUSEA sitagliptin [From Januvia] AdvReac Intermediate Diarrhea Verified 11/25/21 09:45 Tmeqkqu-IVR-PxF Reductase AdvReac Intermediate myalgias Verified 11/25/21 09:45 Inhibitor and [Fpkomab-Dys-Zxk Reductase weakness Inhibitor] aspirin AdvReac Mild GI SYMPTOMS Verified 11/25/21 09:45 Consultations 11/24/21 10:22 ED Decision to Admit Stat 11/24/21 10:39 Consult Orthopedic Surgery Stat Procedures Performed Operation Date: 11/26/21 11:15 Actual Procedures p Cardioversion - Petey Sanchez MD Ordered Studies 11/24/21 08:15 CT knee LT wo con Stat CT knee RT wo con Stat 11/25/21 09:53 CT lumbar spine wo con Routine 11/28/21 11:20 US venous doppler LE RT Routine Hospital Course (1) Ambulatory dysfunction: - Patient had a fall at home now cannot walk bilateral knees were evaluated ER with CT scan of both knees showing no fractures. US venous doppler negative for DVT - orthopedic evaluation recommends symptoms control and PT/OT - awaiting rehab placement at this time. (2) HFrEF (heart failure with reduced ejection fraction): -Patient has a history of both systolic and diastolic heart failure last ejection fraction was 85% patient is maintained on diuretics beta-blockers. -There is some concern that her atrial flutter may be contributing and she was taken for cardioversion 11/[address] Sanchez -Patient is maintained on Bumex, Brilinta, apixaban, carvedilol, and Ranexa -for her atrial flutter rhythm she is on amiodarone and digoxin in addition to pacemaker (3) DM II (diabetes mellitus, type II), controlled: -Diabetic diet, continue insulin mealtime coverage, accuchecks AC and HS -Blood sugars variable, A1c 6.4% Novolog: Goal BSG Range: Low 110 mg/dL, High 140 mg/dL Correction Factor: 25 mg/dL/unit Carbohydrate ratio = 12 g/unit BSGs ACHS if eating, q6h if npo Add Lantus 10 units daily (4) CKD (chronic kidney disease) stage 4, GFR 15-29 ml/min: -Follow creatinine (appears baseline ~2.0) -Continue following volume status with her heart failure -Patient continues on vitamin D3, Calcitrol, iron -Continue on her usual twice a day dose of Bumex to maintain euvolemic state (5) Malignant neoplasm of central portion of right breast in female, estrogen receptor positive: -Continue anastrozole (6) Pulmonary hypertension: -Patient maintained on diuretics (7) S/P TAVR (transcatheter aortic valve replacement): -Maintains anticoagulation with apixaban (8) Chronic obstructive pulmonary disease, unspecified: -No inhalers -oxygenating well on room air (9) Hypothyroidism: -Remains on Synthroid TSH taken on admission on 11/24/2021 is appropriate at 2.3 (10) DVT prophylaxis: -Apixaban (renal dose adjusted) which she takes chronically provides DVT prevention As above Continue PT/OT Case management consult for d/c planning -- remains medically stable pending rehab placement at this time, given stable rhythm on telemetry ca transfer to med/surg off the pvc monitor Discharge Plan Discharge Items Patient Disposition: Home - Home Health Services Reason For Visit: B/L LEG WEAKNESS Discharge Diagnosis: Bilateral knee contusions following falls Atrial fibrillation s/p cardioversion Activity: Resume your previous activity Non-emergency contact: Primary Care Provider Call non-emergency contact if: you have any medication questions and your symptoms worsen Follow-up/Referrals: Ebony Alvarenga DO [Primary Care Provider] - Diet: Carb Consistent or DM2 and Heart Healthy Addtl Attending Provider Instructions: You were admitted to [facility] from November 24 - 2021 due to bilateral knee contusion after a fall and atrial fibrillation. You have now been in a paced rhythm since your cardioversion on November 26. With physical therapy you have improved enough to now be discharged home with home health. Kind regards, Dr Tesfaye Husain Pending Studies at Discharge: No Stand-Alone Forms: My [facility], Smoking Cessation Medications and DC Order Prescriptions: Continued bumetanide 1 mg tablet 1 mg PO BID RF: 0 insulin asp prt-insulin aspart [Novolog Mix 70-30 U-100 Insuln] 100 unit/mL (70-30) solution 15 - 30 unit SUBCUT AMPM RF: 0 cholecalciferol (vitamin D3) 25 mcg (1,000 unit) capsule 1,000 unit PO QAM RF: 0 trazodone 50 mg tablet 50 mg PO HS PRN (Reason: insomnia) Qty: 90 RF: 1 levothyroxine 75 mcg tablet 75 mcg PO QAM Qty: 90 RF: 1 Eliquis 2.5 mg tablet 2.5 mg PO BID Qty: 60 RF: 11 digoxin 125 mcg (0.125 mg) tablet 125 mcg PO 3XWK Qty: 36 RF: 1 calcitriol [Rocaltrol] 0.25 mcg capsule 0.25 mcg PO 3XWK Qty: 12 RF: 1 magnesium oxide 400 mg magnesium capsule 400 mg PO QPM Qty: 90 RF: 0 ferrous sulfate [Feosol] 325 mg (65 mg iron) tablet 325 mg PO 3XWK RF: 0 anastrozole [Arimidex] 1 mg tablet 1 mg PO QAM RF: 0 potassium gluconate 595 mg (99 mg) tablet 595 mg PO QAM RF: 0 ondansetron HCl 4 mg tablet 4 mg PO Q8H PRN (Reason: nausea and vomiting) Qty: 30 RF: 0 pantoprazole [Protonix] 40 mg tablet,delayed release (DR/EC) 40 mg PO BID Qty: 180 RF: 1 multivitamin [Multiple Vitamins] tablet 1 tab PO QAM RF: 0 vitamin E 400 unit capsule 400 unit PO QAM RF: 0 polyethylene glycol 3350 [Miralax] 17 gram/dose Powder 17 g PO HS RF: 0 carvedilol [Coreg] 6.25 mg Tablet 6.25 mg PO HS RF: 0 carvedilol [Coreg] 3.125 mg tablet 3.125 mg PO QAM RF: 0 amiodarone [Pacerone] 200 mg tablet 200 mg PO QPM RF: 0 garlic 1,000 mg capsule 1,000 mg PO QPM RF: 0 omega-3 fatty acids 1,000 mg Capsule 1,000 mg PO QPM RF: 0 ranolazine [Ranexa] 500 mg tablet extended release 12 hr 500 mg PO BID RF: 0 Brilinta 90 mg tablet 90 mg PO BID Qty: 60 RF: 2 Discharge Orders: Discharge Order (Routine); Ordered 12/02/21 Ordered By: Tesfaye Varghese/Other Patient Handouts: Managing Type 2 Diabetes Admission Data Admit Date/Time: 11/27/21 18:43 Attending Provider: Tesfaye Husain Admit Provider: John Downing Primary Care Provider: Ebony Alvarenga Other Providers: [facility] ; [facility] ; [facility] ; John Downing ; João Morel Coding Diagnoses Ambulatory dysfunction R26.2 HFrEF (heart failure with reduced ejection fraction) I50.20 DM II (diabetes mellitus, type II), controlled E11.21; Z79.4 Diabetes mellitus complication detail: with nephropathy Diabetes mellitus complication status: with kidney complications Diabetes mellitus prison insulin use: with prison use CKD (chronic kidney disease) stage 4, GFR 15-29 ml/min N18.4 Malignant neoplasm of central portion of right breast in female, estrogen receptor positive C50.111; Z17.0 Pulmonary hypertension I27.20 S/P TAVR (transcatheter aortic valve replacement) Z95.2 Chronic obstructive pulmonary disease, unspecified J44.9 Hypothyroidism E03.9 DVT prophylaxis Z29.9 Home Health Attestation I certify that this patient is under my care and that I, or a physicians assistant director working with me, had a face to-face encounter that meets the home health [id number] encounter requirements with this patient. The encounter with the patient was in whole, or in part, for the following medical condition, which is the primary reason for home health care (list medical condition): CHF I certify that, based on my findings, the following services are medically necessary home health services: My clinical findings support the need for the above services because: OT Assess ADL Status and Restore Function w ADLs PT Assessment for Endurance / Balance / Strength PT Eval for Safety and Mobility PT Eval for Safety, Gait Training, Assistive Devices PT Gait and Balance Training, Strengthening and Safety Skilled Nsg Assessment Skilled Nsg Assess Pt Illness, Disease and Sx Monitoring Further, I certify that my clinical findings support that this patient is homebound (i.e. absences from home require considerable and taxing effort and are for medical reasons or orthodox services or infrequently or of short duration when for other reasons) because: Transportation Assistance/Unable to Leave Home Unassisted Certification for Home Health Services: Based on the above findings, I certify that this patient is confined to the home and needs intermittent correction care, physical therapy and/or speech therapy or continues to need occupational therapy. The patient is under my care, and I have initiated the establishment of the plan of care. This patient will be followed by a physician who will periodically review the plan of care.
== END 2021-12-02 17:31 | disposition home health service (06) | DRG 92 ==
LOC: EDINP 07:45 → ED 07:45 → SUATTDRO 10:39 → 2W 13:03

== ENCOUNTER 2022-06-10 12:51 | Inpatient (IN) ==
[2022-06-10 13:39] LABS: Basophils # (auto) 0.05 K/uL (0-0.2); Basophils % (auto) 0.6 %; Eosinophils # (auto) 0.22 K/uL (0-0.50); Eosinophils % (auto) 2.7 %; Hematocrit (blood only) 40.6 % (34.1-44.9); Immature Granulocytes # (auto) 0.02 K/uL (0.00-0.02); Immature Granulocytes % (auto) 0.2 %; Lymphocytes % (auto) 18.6 %; Mean Corpuscular Hemoglobin 33.4 pg (25.0-34.0); Mean Corpuscular Volume 104.4 fL (80.0-100.0); Monocytes # (auto) 0.68 K/uL (0.24-0.82); Monocytes % (auto) 8.4 %; Neutrophils % (auto) 69.5 %; Platelet Count 206 K/uL (130-400); RDW Coefficient of Variation 13.1 % (11.5-14.5); RDW Standard Deviation 49.9 fL (36.4-46.3); Red Blood Count 3.89 M/uL (3.93-5.22); White Blood Count 8.07 K/ul (4.8-10.8)
[2022-06-10 13:51] LABS: Partial Thromboplastin Time 28.2 Seconds (21.0-31.0); Prothrombin Time 10.9 Seconds (9.0-12.0)
[2022-06-10 14:04] LABS: Troponin I High Sensitivity 27.7 pg/ml (0-14)
[2022-06-10 14:07] LABS: Albumin Globulin Ratio 1.1 (0.9-2); Albumin Level 3.9 gm/dl (3.4-5.0); Bilirubin,Total 0.5 mg/dl (0.2-1.0); Calcium 9.4 mg/dl (8.5-10.1); Creatinine Clr Calc Pharmacy 21.5 ml/min; Est GFR (Non-African American) 19.9 ml/min; Globulin 3.7 gm/dl (2.5-4.0); Magnesium 2.2 mg/dl (1.7-2.4); Potassium 4.4 mmol/L (3.5-5.1); Total Protein 7.6 gm/dl (6.0-8.3)
--- NOTE | 2022-06-10 14:24 | XRay Report ---
SINGLE VIEW CHEST CLINICAL HISTORY: Dyspnea. Weakness. FINDINGS: An AP, portable, upright chest radiograph is compared to study dated 11/24/2021. Correlation is made with chest CT dated 10/17/2018. A 3-lead cardiac AICD is unchanged in position and partially ob scures the left mid chest. There is evidence of previous cardiac valve surgery. The heart is enlarged noting atherosclerotic calcification of the thoracic aorta. There is mild pulmonary vascular congest ion. There are right larger than left pleural effusions with dependent consolidation. No pneumothorax is seen. The skeletal structures are osteopenic. The bony thorax is grossly intact. IMPRESSION: 1. Cardiomegaly and AICD with evidence of mild congestive failure. 2. Right larger than left pleural effusions with dependent consolidation. ACT 112: Negative or not required by law. Electronically signed by: Marcus East M.D. 06/10/2022 2:23 PM
[2022-06-10] MEDS ORDERED: BUMETANIDE 1 MG in SYRINGE 0 ML IV ONE (14:58)
--- NOTE | 2022-06-10 15:13 | Emergency Department Note ---
History of Present Illness General Chief Complaint: Respiratory Problems Stated Complaint: TROUBLE BREATHING Time Seen by Provider: 06/10/22 14:05 History of Present Illness Provider Complaint: shortness of breath Onset (ago): week(s) (1) Severity: moderate Consistency/Duration: + constant Maximum Pain Intensity: 4 Relieved By: + upright position Exacerbated By: + lying flat, + exertion and + coughing Known history of: congestive heart failure Associated symptoms: + orthopnea; no chest pain, no pain with inspiration, no fever, no cough, no wheezing, no sputum production, no lower extremity pain, no polyuria, no paresthesias, no palpitations, no hemoptysis, no diaphoresis, no nausea/vomiting, no syncope, no abdominal pain or no rash Treatment prior to arrival: other (Patient increased her dose of Bumex but it does not seem to have helped) HPI Narrative: Patient reports a 5 pound increase in weight in the last 5 days. Home Medications Medication Instructions Recorded Confirmed Type magnesium oxide 400 mg PO QPM #90 caps 04/01/19 05/30/22 Rx multivitamin (Multiple Vitamins 1 tab PO QAM 05/19/19 05/30/22 History tablet) polyethylene glycol 3350 17 17 g PO HS 03/29/20 05/30/22 History gram/dose oral powder (Miralax) vitamin E 268 mg (400 unit) capsule 400 unit PO QAM 03/29/20 05/30/22 History ferrous sulfate 325 mg (65 mg 325 mg PO 3XWK 10/27/20 05/30/22 History iron) tablet (Feosol) cholecalciferol (vitamin D3) 25 1,000 unit PO QAM 05/17/21 05/30/22 History mcg (1,000 unit) capsule potassium gluconate 595 mg (99 mg) 595 mg PO QAM 07/02/21 05/30/22 History tablet trazodone 50 mg tablet 50 mg PO HS PRN insomnia #90 tabs 09/03/21 05/30/22 Rx garlic 1,000 mg capsule 1,000 mg PO QPM 09/07/21 05/30/22 History omega-3 fatty acids 1,000 mg 1,000 mg PO QPM 10/15/21 05/30/22 History capsule anastrozole 1 mg tablet (Arimidex) 1 mg PO QAM 11/11/21 05/30/22 History amiodarone 200 mg tablet (Pacerone) 200 mg PO QPM #90 tabs 12/27/21 05/30/22 Rx carvedilol 6.25 mg tablet (Coreg) 6.25 mg PO HS 12/29/21 05/30/22 History carvedilol 3.125 mg tablet 3.125 mg PO QAM #90 tabs 01/03/22 05/30/22 Rx ticagrelor 90 mg tablet (Brilinta) 90 mg PO BID #180 tabs 01/24/22 05/30/22 Rx insulin syringe-needle U-100 0.3 #100 ea 01/25/22 05/30/22 Rx mL 31 gauge x 5/16" (BD SafetyGlide Insulin Syringe) fluticasone propionate 50 2 spray intranasal DAILY #16 grams 02/24/22 05/30/22 Rx mcg/actuation nasal spray,suspension (Flonase Allergy Relief) triamcinolone acetonide 0.5 % 1 applic topical BID PRN skin 02/24/22 05/30/22 Rx topical cream irritation #60 grams ranolazine 500 mg tablet,extended 500 mg PO BID #180 tabs 03/21/22 05/30/22 Rx release,12 hr (Ranexa) levothyroxine 75 mcg tablet 75 mcg PO QAM #90 tabs 03/24/22 05/30/22 Rx Xeroform #30 ea 03/29/22 05/30/22 Rx bumetanide 1 mg tablet 1 mg PO BID #180 tabs 03/29/22 05/30/22 Rx hydrofera blue Ready Foam Dressing #30 ea 03/29/22 05/30/22 Rx apixaban 2.5 mg tablet (Eliquis) 2.5 mg PO BID #60 tabs 04/06/22 05/30/22 Rx digoxin 125 mcg (0.125 mg) tablet 125 mcg PO 3XWK #36 tabs 04/13/22 05/30/22 Rx insulin aspar prt-insulin aspart 15 - 30 unit (0.15 - 0.3 mL) 04/29/22 05/30/22 Rx 100 unit/mL (70-30) subcutaneous subcut AMPM #30 mL soln (Novolog Mix 70-30 U-100 Insuln) calcitriol 0.25 mcg capsule 0.25 mcg PO 3XWK #12 caps 05/09/22 05/30/22 Rx (Rocaltrol) ondansetron HCl 4 mg tablet 4 mg PO Q8H PRN nausea and 05/17/22 05/30/22 Rx vomiting #30 tabs hydrocodone 5 mg-acetaminophen 325 1 tab PO Q8H 05/30/22 05/30/22 History mg tablet miconazole nitrate 2 % topical 1 applic topical DAILY #42.5 grams 05/30/22 05/30/22 Rx cream sertraline 25 mg tablet 25 mg PO DAILY #30 tabs 05/30/22 05/30/22 Rx pantoprazole 40 mg tablet,delayed 40 mg PO BID Stomach Upset #180 06/07/22 Rx release (Protonix) tabs Allergies Allergy/AdvReac Type Severity Reaction Status Date / Time adhesive Allergy Intermediate REDNESS Verified 05/20/22 13:05 AND IRRITATION FROM PAIN PATCH, TAPE latex Allergy Intermediate ALLERGIC Verified 05/20/22 13:05 TO LATEX TAPE/RASH/ITCHING morphine Allergy Intermediate swelling Verified 05/20/22 13:05 nausea vomiting olmesartan Allergy Unknown UNKNOWN Verified 05/20/22 13:05 benzonatate AdvReac Intermediate confusion Verified 05/20/22 13:05 [From Giovanni Brennan] dulaglutide [From Trulicity] AdvReac Intermediate AFFECTS Verified 05/20/22 13:05 MUSCLES exenatide [From Byetta] AdvReac Intermediate Diarrhea Verified 05/20/22 13:05 ezetimibe AdvReac Intermediate MUSCLE Verified 05/20/22 13:05 ACHES glipizide AdvReac Intermediate Diarrhea Verified 05/20/22 13:05 glyburide AdvReac Intermediate Diarrhea Verified 05/20/22 13:05 lisinopril AdvReac Intermediate LIGHTHEADED Verified 05/20/22 13:05 AND DIZZY losartan AdvReac Intermediate dizziness Verified 05/20/22 13:05 metformin AdvReac Intermediate Diarrhea Verified 05/20/22 13:05 pioglitazone AdvReac Intermediate DIARRHEA Verified 05/20/22 13:05 NAUSEA sitagliptin [From Januvia] AdvReac Intermediate Diarrhea Verified 05/20/22 13:05 Sxzdbzl-CJO-RcB Reductase AdvReac Intermediate myalgias Verified 05/20/22 13:05 Inhibitor and [Oqlwrqv-Nvr-Uwv Reductase weakness Inhibitor] aspirin AdvReac Mild GI SYMPTOMS Verified 05/20/22 13:05 Past Med/Surg History Medical History Anemia due to chronic kidney disease Antiplatelet or antithrombotic long-term use Aortic stenosis, severe S/p TAVR 10/2019 Bilateral carotid artery stenosis H/o bilateral CEAs in 2016 Per 07/2021 vascular note- carotid ultrasound from office visit showed patent right CEA with velocities suggesting 50-59% stenosis restenosis Patent left CEA with velocities suggesting 99% restenosis - had re-do of left CEA 09/27/21 Biventricular ICD (implantable cardioverter-defibrillator) in place (04/30/20) Medtr[employer] implanted 04/30/2020. Capped right ventricular pacing lead Last check 09/2021 Breast cancer, right Right breast mastectomy 09/17/21 at [facility] CAD (coronary artery disease) F/U DR CUEVA S/p NATY x 1 to Cx in 2019; NATY to ostial LM 01/10/20 Chronic combined systolic and diastolic CHF (congestive heart failure) EF 40% per 10/16/21 ECHO Chronic kidney disease STAGE IV-F/U DR SALINAS Chronic obstructive pulmonary disease, unspecified Breathing stable Depression Depression Diabetes mellitus, type 2 Glucose fluctuates DVT (deep venous thrombosis) LOWER LEG 2019 GERD (gastroesophageal reflux disease) History of CVA (cerebrovascular accident) Had RUE weakness and numbness after 09/17/21 breast surgery- CT scan of head negative; unable to do MRI due to ICD Per PCP records 10/22/21= "[place] her post op RUE sx related to possible small stroke/TIA" Hypothyroidism Insomnia Ischemic cardiomyopathy Left bundle branch block Nausea and vomiting after administration of anesthetic agent severe PONV s/p Left carotid surgery 09/27/21 at [facility] NSTEMI (non-ST elevated myocardial infarction) Most recent 12/2019 (mild per patient) PAD (peripheral artery disease) S/p IT RISK ADVISOR and stenting of right SFA, and IT RISK ADVISOR of left SFA and common femoral artery PAF (paroxysmal atrial fibrillation) Pulmonary hypertension RVSP 40-45mmHg on 10/2020 ECHO Rheumatoid arthritis No medications Followed with rheum in the past- no recent issues Secondary hyperparathyroidism of renal origin SOB (shortness of breath) on exertion Spondylosis Subclavian artery stenosis Surgical History H/O colonoscopy H/O heart artery stent H/O: section History of appendectomy History of cardiac cath TOTAL 6? STENTS- 2018 and 2019 History of cataract surgery right and left History of cholecystectomy History of hysterectomy History of left-sided carotid endarterectomy (09/27/21) redo L CEA, Dr Bateman History of oophorectomy S/P angioplasty (02/03/21) IT RISK ADVISOR L SFA S/P carotid endarterectomy B/l 2016 S/P coronary artery stent placement (10/2017) NATY to mid LAD S/P coronary artery stent placement (10/2018) NATY prox mid LAD 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) S/P thoracentesis (03/2020) b/l d/t CHF Status post partial mastectomy of right breast (09/17/21) 09/17/21 - Done under [facility] with LMA #4. Atraumatic LMA insertion. Magnet placed secondary to pacemaker. Right Breast Partial Mastectomy with [place] Evaluation Assistant Localization, Right Axillary [place] Lymph Node Biopsy(Right) - Hua Acosta, Family History Daughter Coronary heart disease Cardiac stent Diabetes Mother , 83yo Diabetes Family history of hypercholesterolemia Myocardial infarction Hypertension Stroke Brother Colorectal cancer 1/2 brother Father , Accident in war Brother Diabetes 1/2 brother;Complications of DM Family/Other Myocardial infarction 1/2 sister Son Coronary heart disease Cardiac stent Hypertension Other Pacemaker Denies family history of Ovarian cancer Prostate cancer Breast cancer Social History Smoking Status: Never smoker Second Hand Exposure: Yes (spouse smoked); Hx Alcohol Use: No Hx Substance Use: No Preferred Language: Tristanian Communication Ability: Effective Visual Impairment: No Limitations Hearing Ability: Hard of Hearing Entry Level Sales Representative Required: No Beliefs That Will Affect Care: None marital status: / marital status details: passed 2000 Current Living Situation: Alone current occupational status: retired 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 How many Children do You have: 2 Feels Safe at Home: Yes caffeine: Yes (1 cup/day) during the past year weight has: remained stable Seatbelt Use: always Assistive Devices: Walker Review of Systems A total of 10 systems reviewed and were otherwise negative Physical Exam Vital Signs: Vital Signs - 24 hr 06/10/22 13:08 06/10/22 14:03 06/10/22 14:03 Temperature 36.9 C Temperature Source Temporal Artery Sc an Pulse Rate 78 Pulse Rate [Apical ] 82 Pulse Rhythm Regular Pulse Strength Normal Respiratory Rate 22 20 Respiratory Effort / Characteristics Non-Labored Sponta neous Non-Labored Respiratory Depth Normal Normal Respiratory Patter n Regular Blood Pressure 151/85 H Blood Pressure [Ri ght Arm] 167/96 H Blood Pressure Annita n 107 Blood Pressure Annita n [Right Arm] 119 Blood Pressure Pos ition Sitting Blood Pressure Pos ition [Right Arm] Lying Pulse Oximetry 94 96 96 Oxygen Delivery Me thod Room Air Room Air Room Air Sepsis Recent Feve r Within 48 Hours No Sepsis New/Unexpla ined Change in Men sukhdev Status No Sepsis Action Take n by Nursing No Action Required 06/10/22 14:03 06/10/22 14:03 Temperature Temperature Source Pulse Rate Pulse Rate [Apical ] Pulse Rhythm Pulse Strength Respiratory Rate 20 Respiratory Effort / Characteristics Non-Labored Sponta neous Respiratory Depth Respiratory Patter n Blood Pressure Blood Pressure [Ri ght Arm] Blood Pressure Annita n Blood Pressure Annita n [Right Arm] Blood Pressure Pos ition Blood Pressure Pos ition [Right Arm] Pulse Oximetry 96 96 Oxygen Delivery Me thod Room Air Room Air Sepsis Recent Feve r Within 48 Hours Sepsis New/Unexpla ined Change in Men sukhdev Status Sepsis Action Take n by Nursing Physical Exam: Physical Exam GENERAL: She is oriented to person, place, and time. She appears well-developed and well-nourished. She does not appear distressed. HENT: Exam performed. -Head: Normocephalic and atraumatic. -Right Ear: External ear normal. No mastoid tenderness. -Left Ear: External ear normal. No mastoid tenderness. -Mouth/Throat: The oropharynx is clear and moist. No trismus in the jaw. No dental abscesses or uvula swelling. No oropharyngeal exudate or tonsillar abscesses. EYES: Conjunctivae and EOM are normal. Pupils are equal, round, and reactive to light. Right eye exhibits no discharge. Left eye exhibits no discharge. No s cleral icterus. NECK: Normal range of motion. Neck supple. No JVD present. No spinous process tenderness present. No carotid bruit present. No rigidity. No tracheal deviation and normal range of motion present. No Brudzinski's sign and no Kernig's sign noted. CV: Normal rate, regular rhythm, normal heart sounds and intact distal pulses. Palpable radial pulses bue. PULM/CHEST: Inspiratory rales at the bases bilaterally. ABD: The abdomen is soft. Bowel sounds are normal. She has no distension. No mass is present. There is no tenderness. There is no rebound, no guarding, no Cerda's sign and no tenderness at McBurney's point. Rovsig negative MUSC/SKEL: Normal range of motion 2+ pitting edema of the bilateral lower extremities. No tenderness or deformity. LYMPH: No cervical adenopathy. NEURO: She is alert and oriented to person, place, and time. She has normal strength. No cranial nerve deficit or sensory deficit. Coordination and gait normal. GCS eye subscore is 4. GCS verbal subscore is 5. GCS motor subscore is 6. Cerebellar tests wnl. SKIN: Skin is warm and dry. She is not diaphoretic. PSYCH: She has a normal mood and affect. Behavior is normal. Judgment and thought content normal. Course Course 1405: The patient was evaluated in room C1. A complete history and physical exam was performed Cardiac monitoring: An order was placed for continuous cardiac monitoring. The monitor shows a rate of 80 with sinus rhythm 1459: Vital signs stable. Labs show an elevated troponin and fluid overload on chest x-ray. Patient will be treated with IV Bumex. [facility] will be [facility]. Administered Medications Bumetanide 1 mg/ Syringe 4 mls @ 4 mls/min IV ONE ONE Stop: 06/10/22 14:59 Last Admin: 06/10/22 15:53 Dose: 4 mls/min Documented By: KANIKA Medical Decision Making Laboratory Data Result diagrams: 06/10/22 13:25 06/10/22 13:25 Lab Results 06/10/22 06/10/22 06/10/22 Range/Units 13:25 13:25 13:25 WBC 8.07 (4.8-10.8) K/ul RBC 3.89 L (3.93-5.22) M/uL Hgb 13.0 (12.0-16.0) g/dl Hct 40.6 (34.1-44.9) % MCV 104.4 H (80.0-100.0) fL MCH 33.4 (25.0-34.0) pg MCHC 32.0 (32.0-36.0) g/dL RDW Std Deviation 49.9 H (36.4-46.3) fL RDW Coeff of Manuela 13.1 (11.5-14.5) % Plt Count 206 (130-400) K/uL MPV 11.0 (9.4-12.3) fL Immature Gran % (Auto) 0.2 % Neut % (Auto) 69.5 % Lymph % (Auto) 18.6 % [place] % (Auto) 8.4 % Eos % (Auto) 2.7 % Baso % (Auto) 0.6 % Neut # (Auto) 5.60 (1.4-6.5) K/uL Lymph # (Auto) 1.50 (1.2-3.4) K/uL [place] # (Auto) 0.68 (0.24-0.82) K/uL Eos # (Auto) 0.22 (0-0.50) K/uL Baso # (Auto) 0.05 (0-0.2) K/uL Immature Gran # (Auto) 0.02 (0.00-0.02) K/uL PT 10.9 (9.0-12.0) Seconds INR 1.0 (0.9-1.1) APTT 28.2 (21.0-31.0) Seconds PTT Ratio 1.0 Sodium 137 (136-145) mmol/L Potassium 4.4 (3.5-5.1) mmol/L Chloride 97 L (98-107) mmol/L Carbon Dioxide 31 (21-32) mmol/L Anion Gap 9 (3-11) BUN 38 H (6-23) mg/dl Creatinine 2.23 H (0.6-1.2) mg/dl Est Cr Clr Drug Dosing 21.5 ml/min Est GFR ( Amer) 23.0 ml/min Est GFR (Non-Af Amer) 19.9 ml/min BUN/Creatinine Ratio 17.0 (10-20) Glucose 167 H (70-99(Fasting)) mg/dl Calcium 9.4 (8.5-10.1) mg/dl Magnesium 2.2 (1.7-2.4) mg/dl Total Bilirubin 0.5 (0.2-1.0) mg/dl AST 32 (13-39) U/L ALT 30 (7-52) U/L Alkaline Phosphatase 177 H (34-104) U/L Troponin I High Sens 27.7 H (0-14) pg/ml B-Natriuretic Peptide (0-100) pg/ml Total Protein 7.6 (6.0-8.3) gm/dl Albumin 3.9 (3.4-5.0) gm/dl Globulin 3.7 (2.5-4.0) gm/dl Albumin/Globulin Ratio 1.1 (0.9-2) SARS-CoV-2, RNA, NAAT (NEGATIVE) 06/10/22 06/10/22 Range/Units 14:12 14:40 WBC (4.8-10.8) K/ul RBC (3.93-5.22) M/uL Hgb (12.0-16.0) g/dl Hct (34.1-44.9) % MCV (80.0-100.0) fL MCH (25.0-34.0) pg MCHC (32.0-36.0) g/dL RDW Std Deviation (36.4-46.3) fL RDW Coeff of Manuela (11.5-14.5) % Plt Count (130-400) K/uL MPV (9.4-12.3) fL Immature Gran % (Auto) % Neut % (Auto) % Lymph % (Auto) % [place] % (Auto) % Eos % (Auto) % Baso % (Auto) % Neut # (Auto) (1.4-6.5) K/uL Lymph # (Auto) (1.2-3.4) K/uL [place] # (Auto) (0.24-0.82) K/uL Eos # (Auto) (0-0.50) K/uL Baso # (Auto) (0-0.2) K/uL Immature Gran # (Auto) (0.00-0.02) K/uL PT (9.0-12.0) Seconds INR (0.9-1.1) APTT (21.0-31.0) Seconds PTT Ratio Sodium (136-145) mmol/L Potassium (3.5-5.1) mmol/L Chloride (98-107) mmol/L Carbon Dioxide (21-32) mmol/L Anion Gap (3-11) BUN (6-23) mg/dl Creatinine (0.6-1.2) mg/dl Est Cr Clr Drug Dosing ml/min Est GFR ( Amer) ml/min Est GFR (Non-Af Amer) ml/min BUN/Creatinine Ratio (10-20) Glucose (70-99(Fasting)) mg/dl Calcium (8.5-10.1) mg/dl Magnesium (1.7-2.4) mg/dl Total Bilirubin (0.2-1.0) mg/dl AST (13-39) U/L ALT (7-52) U/L Alkaline Phosphatase (34-104) U/L Troponin I High Sens (0-14) pg/ml B-Natriuretic Peptide 483 H (0-100) pg/ml Total Protein (6.0-8.3) gm/dl Albumin (3.4-5.0) gm/dl Globulin (2.5-4.0) gm/dl Albumin/Globulin Ratio (0.9-2) SARS-CoV-2, RNA, NAAT NEGATIVE (NEGATIVE) Imaging Data Radiologist's Impression: Chest X-Ray 06/10/22 13:13 SINGLE VIEW CHEST CLINICAL HISTORY: Dyspnea. Weakness. FINDINGS: An AP, portable, upright chest radiograph is compared to study dated 11/24/2021. Correlation is made with chest CT dated 10/17/2018. A 3-lead cardiac AICD is unchanged in position and partially obscures the left mid chest. There is evidence of previous cardiac valve surgery. The heart is enlarged noting atherosclerotic calcification of the thoracic aorta. There is mild pulmonary vascular congestion. There are right larger than left pleural effusions with dependent consolidation. No pneumothorax is seen. The skeletal structures are osteopenic. The bony thorax is grossly intact. IMPRESSION: 1. Cardiomegaly and AICD with evidence of mild congestive failure. 2. Right larger than left pleural effusions with dependent consolidation. ACT 112: Negative or not required by law. Electronically signed by: Marcus East M.D. 06/10/2022 2:23 PM ECG Data Interpretation: Paced rhythm with rate of 63. QRS 164 QTC 485. No ectopy. MDM Narrative Vital signs stable. Labs show an elevated troponin and fluid overload on chest x-ray. Patient will be treated with IV Bumex. Patient will be admitted to the [facility] hospitalist team Dr. Guzman team will be notified. Impression & Plan Congestive heart failure Discharge Plan Visit Data Chief Complaint: Respiratory Problems Stated Complaint: TROUBLE BREATHING ED Provider: Get Cano Discharge Problem: Congestive heart failure Patient Disposition: Being Evaluated by Hospitalist Forms Stand Alone Forms: My [facility] Prescriptions Prescriptions: No Action cholecalciferol (vitamin D3) 25 mcg (1,000 unit) capsule 1,000 unit PO QAM trazodone 50 mg tablet 50 mg PO HS PRN (Reason: insomnia) Qty: 90 1RF amiodarone [Pacerone] 200 mg tablet 200 mg PO QPM Qty: 90 3RF carvedilol 3.125 mg tablet 3.125 mg PO QAM Qty: 90 3RF Rx Instructions: must administer with a meal/food Brilinta 90 mg tablet 90 mg PO BID Qty: 180 3RF (DME) insulin syringe-needle U-100 [BD SafetyGlide Insulin Syringe] 0.3 mL 31 gauge x 5/16" syringe See Rx Instructions .Route Qty: 100 3RF Rx Instructions: test three times daily ranolazine [Ranexa] 500 mg tablet extended release 12 hr 500 mg PO BID Qty: 180 3RF levothyroxine 75 mcg tablet 75 mcg PO QAM Qty: 90 1RF bumetanide 1 mg tablet 1 mg PO BID Qty: 180 3RF Rx Instructions: May increase to 2 mg BID for edema, swelling, weight gain. Eliquis 2.5 mg tablet 2.5 mg PO BID Qty: 60 11RF digoxin 125 mcg (0.125 mg) tablet 125 mcg PO 3XWK Qty: 36 1RF Rx Instructions: Monday, Monday, Monday insulin asp prt-insulin aspart [Novolog Mix 70-30 U-100 Insuln] 100 unit/mL (70-30) solution 15 - 30 unit SUBCUT AMPM Qty: 30 1RF Rx Instructions: Per home sliding scale calcitriol [Rocaltrol] 0.25 mcg capsule 0.25 mcg PO 3XWK Qty: 12 1RF Rx Instructions: MONDAY, MONDAY, MONDAY. ondansetron HCl 4 mg tablet 4 mg PO Q8H PRN (Reason: nausea and vomiting) Qty: 30 0RF pantoprazole [Protonix] 40 mg tablet,delayed release (DR/EC) 40 mg PO BID Qty: 180 1RF magnesium oxide 400 mg magnesium capsule 400 mg PO QPM Qty: 90 0RF ferrous sulfate [Feosol] 325 mg (65 mg iron) tablet 325 mg PO 3XWK anastrozole [Arimidex] 1 mg tablet 1 mg PO QAM (DME) Xeroform See Rx Instructions .Route .MEDSUPPLY Qty: 30 5RF Rx Instructions: Apply to open area daily; (DME) hydrofera blue Ready Foam Dressing See Rx Instructions .Route .MEDSUPPLY Qty: 30 0RF Rx Instructions: As directed triamcinolone acetonide 0.5 % cream 1 applic topical BID PRN (Reason: skin irritation) Qty: 60 1RF Rx Instructions: apply to LLE fluticasone propionate [Flonase Allergy Relief] 50 mcg/actuation spray,suspension 2 spray intranasal DAILY Qty: 16 3RF Rx Instructions: administer into each nostril hydrocodone-acetaminophen 5-325 mg tablet 1 tab PO Q8H sertraline 25 mg tablet 25 mg PO DAILY Qty: 30 2RF miconazole nitrate 2 % cream 1 applic topical DAILY Qty: 42.5 5RF potassium gluconate 595 mg (99 mg) tablet 595 mg PO QAM carvedilol [Coreg] 6.25 mg tablet 6.25 mg PO HS multivitamin [Multiple Vitamins] tablet 1 tab PO QAM vitamin E 400 unit capsule 400 unit PO QAM polyethylene glycol 3350 [Miralax] 17 gram/dose Powder 17 g PO HS garlic 1,000 mg capsule 1,000 mg PO QPM omega-3 fatty acids 1,000 mg Capsule 1,000 mg PO QPM Referrals Referrals: Ebony Alvarenga DO [Primary Care Provider] - : Congestive heart failure Qualifiers: Heart failure type: unspecified Heart failure chronicity: acute on chronic Qualified Code(s): I50.9 - Heart failure, unspecified
--- NOTE | 2022-06-10 15:58 | Electrocardiogram Report ---
Test Reason : Blood Pressure : / mmHG Vent. Rate : 063 BPM Atrial Rate : 066 BPM P-R Int : 000 ms QRS Dur : 164 ms QT Int : 474 ms P-R-T Axes : 000 -60 094 degrees QTc Int : 485 ms Ventricular-paced rhythm Abnormal ECG When compared with ECG of 24-NOV-2021 07:56, Vent. rate has decreased BY 2 BPM Confirmed by Miller Rice ([id number]) on 06/10/2022 3:58:04 PM Referred By: Confirmed By:Miller Rice
--- NOTE | 2022-06-10 16:04 | History & Physical Report ---
Date of Service June 10, 2022 Assessment & Plan (1) Congestive heart failure: Plan: Patient reports home dry weight as 199 lbs and now up to 206 lbs on home scale. Reports some LE edema, though very mild to me. JVD present. - Bumex 2 mg IV BID (doubling of what she was taking at home) - I&Os, daily weights - Will get 2vCXR to better look at right pleural effusion. Patient reports prior thoracentesis improved her breathing more than Bumex. Could consider padilla montano for this. (2) PAF (paroxysmal atrial fibrillation): Plan: In paced rhythm on telemetry. - Continue amiodarone, apixaban, beta-estephania, & digoxin (3) Chronic combined systolic and diastolic CHF (congestive heart failure): Plan: As above (4) S/P coronary artery stent placement: Plan: No chest pain. Troponin not concerning. EKG hard to interpret given largely paced rhythm, but looks similar to EKG from 11/2021 and was reviewed as similar by the multi skilled operator. - Contine home ASA, beta-estephania (5) Hypothyroidism: Plan: - Continue home levothyroxine - TSH in the AM (6) DM II (diabetes mellitus, type II), controlled: Plan: Last A1c was 6.4%. Generally uses 70/30 with last dose this morning. Usually 15 units - 30 units depending on her blood sugar. - Sliding scale insulin - Repeat A1c Plan Conditional code - Patient does not want intubation/ventilation. Ok with 1 round of CPR. BiPap ok. No hemodialysis in the event of kidney failure. History of Present Illness Primary Care Provider: Ebony Alvarenga, 81yo F w/ hx of systolic & diastolic heart failure who presents with CHF exacerbation. For last several days has been having more LE swelling and predominantly orthopnea, similar to prior episodes. Has tried to double her home Bumex, without improvement. Last night, was unable to sleep as every time she lay down, she became short of breath. Ended up sleeping in the recliner. Decided to come to the ER. Allergies Allergy/AdvReac Type Severity Reaction Status Date / Time adhesive Allergy Intermediate REDNESS Verified 05/20/22 13:05 AND IRRITATION FROM PAIN PATCH, TAPE latex Allergy Intermediate ALLERGIC Verified 05/20/22 13:05 TO LATEX TAPE/RASH/ITCHING morphine Allergy Intermediate swelling Verified 05/20/22 13:05 nausea vomiting olmesartan Allergy Unknown UNKNOWN Verified 05/20/22 13:05 benzonatate AdvReac Intermediate confusion Verified 05/20/22 13:05 [From Giovanni Brennan] dulaglutide [From Trulicity] AdvReac Intermediate AFFECTS Verified 05/20/22 13:05 MUSCLES exenatide [From Byetta] AdvReac Intermediate Diarrhea Verified 05/20/22 13:05 ezetimibe AdvReac Intermediate MUSCLE Verified 05/20/22 13:05 ACHES glipizide AdvReac Intermediate Diarrhea Verified 05/20/22 13:05 glyburide AdvReac Intermediate Diarrhea Verified 05/20/22 13:05 lisinopril AdvReac Intermediate LIGHTHEADED Verified 05/20/22 13:05 AND DIZZY losartan AdvReac Intermediate dizziness Verified 05/20/22 13:05 metformin AdvReac Intermediate Diarrhea Verified 05/20/22 13:05 pioglitazone AdvReac Intermediate DIARRHEA Verified 05/20/22 13:05 NAUSEA sitagliptin [From Januvia] AdvReac Intermediate Diarrhea Verified 05/20/22 13:05 Yjzcvul-ECZ-BmC Reductase AdvReac Intermediate myalgias Verified 05/20/22 13:05 Inhibitor and [Bpjushp-Usr-Nzh Reductase weakness Inhibitor] aspirin AdvReac Mild GI SYMPTOMS Verified 05/20/22 13:05 Home Medications Medication Instructions Recorded Confirmed Type magnesium oxide 400 mg PO QPM #90 caps 04/01/19 05/30/22 Rx multivitamin (Multiple Vitamins 1 tab PO QAM 05/19/19 05/30/22 History tablet) polyethylene glycol 3350 17 17 g PO HS 03/29/20 05/30/22 History gram/dose oral powder (Miralax) vitamin E 268 mg (400 unit) capsule 400 unit PO QAM 03/29/20 05/30/22 History ferrous sulfate 325 mg (65 mg 325 mg PO 3XWK 10/27/20 05/30/22 History iron) tablet (Feosol) cholecalciferol (vitamin D3) 25 1,000 unit PO QAM 05/17/21 05/30/22 History mcg (1,000 unit) capsule potassium gluconate 595 mg (99 mg) 595 mg PO QAM 07/02/21 05/30/22 History tablet trazodone 50 mg tablet 50 mg PO HS PRN insomnia #90 tabs 09/03/21 05/30/22 Rx garlic 1,000 mg capsule 1,000 mg PO QPM 09/07/21 05/30/22 History omega-3 fatty acids 1,000 mg 1,000 mg PO QPM 10/15/21 05/30/22 History capsule anastrozole 1 mg tablet (Arimidex) 1 mg PO QAM 11/11/21 05/30/22 History amiodarone 200 mg tablet (Pacerone) 200 mg PO QPM #90 tabs 12/27/21 05/30/22 Rx carvedilol 6.25 mg tablet (Coreg) 6.25 mg PO HS 12/29/21 05/30/22 History carvedilol 3.125 mg tablet 3.125 mg PO QAM #90 tabs 01/03/22 05/30/22 Rx ticagrelor 90 mg tablet (Brilinta) 90 mg PO BID #180 tabs 01/24/22 05/30/22 Rx insulin syringe-needle U-100 0.3 #100 ea 01/25/22 05/30/22 Rx mL 31 gauge x 5/16" (BD SafetyGlide Insulin Syringe) fluticasone propionate 50 2 spray intranasal DAILY #16 grams 02/24/22 05/30/22 Rx mcg/actuation nasal spray,suspension (Flonase Allergy Relief) triamcinolone acetonide 0.5 % 1 applic topical BID PRN skin 02/24/22 05/30/22 Rx topical cream irritation #60 grams ranolazine 500 mg tablet,extended 500 mg PO BID #180 tabs 03/21/22 05/30/22 Rx release,12 hr (Ranexa) levothyroxine 75 mcg tablet 75 mcg PO QAM #90 tabs 03/24/22 05/30/22 Rx Xeroform #30 ea 03/29/22 05/30/22 Rx bumetanide 1 mg tablet 1 mg PO BID #180 tabs 03/29/22 05/30/22 Rx hydrofera blue Ready Foam Dressing #30 ea 03/29/22 05/30/22 Rx apixaban 2.5 mg tablet (Eliquis) 2.5 mg PO BID #60 tabs 04/06/22 05/30/22 Rx digoxin 125 mcg (0.125 mg) tablet 125 mcg PO 3XWK #36 tabs 04/13/22 05/30/22 Rx insulin aspar prt-insulin aspart 15 - 30 unit (0.15 - 0.3 mL) 04/29/22 05/30/22 Rx 100 unit/mL (70-30) subcutaneous subcut AMPM #30 mL soln (Novolog Mix 70-30 U-100 Insuln) calcitriol 0.25 mcg capsule 0.25 mcg PO 3XWK #12 caps 05/09/22 05/30/22 Rx (Rocaltrol) ondansetron HCl 4 mg tablet 4 mg PO Q8H PRN nausea and 05/17/22 05/30/22 Rx vomiting #30 tabs hydrocodone 5 mg-acetaminophen 325 1 tab PO Q8H 05/30/22 05/30/22 History mg tablet miconazole nitrate 2 % topical 1 applic topical DAILY #42.5 grams 05/30/22 05/30/22 Rx cream sertraline 25 mg tablet 25 mg PO DAILY #30 tabs 05/30/22 05/30/22 Rx pantoprazole 40 mg tablet,delayed 40 mg PO BID Stomach Upset #180 06/07/22 Rx release (Protonix) tabs Past Med/Surg History Medical History Anemia due to chronic kidney disease Antiplatelet or antithrombotic long-term use Aortic stenosis, severe S/p TAVR 10/2019 Bilateral carotid artery stenosis H/o bilateral CEAs in 2016 Per 07/2021 vascular note- carotid ultrasound from office visit showed patent right CEA with velocities suggesting 50-59% stenosis restenosis Patent left CEA with velocities suggesting 99% restenosis - had re-do of left CEA 09/27/21 Biventricular ICD (implantable cardioverter-defibrillator) in place (04/30/20) Medtr[employer] implanted 04/30/2020. Capped right ventricular pacing lead Last check 09/2021 Breast cancer, right Right breast mastectomy 09/17/21 at [facility] CAD (coronary artery disease) F/U DR CUEVA S/p NATY x 1 to Cx in 2019; NATY to ostial LM 01/10/20 Chronic combined systolic and diastolic CHF (congestive heart failure) EF 40% per 10/16/21 ECHO Chronic kidney disease STAGE IV-F/U DR SALINAS Chronic obstructive pulmonary disease, unspecified Breathing stable Depression Depression Diabetes mellitus, type 2 Glucose fluctuates DVT (deep venous thrombosis) LOWER LEG 2019 GERD (gastroesophageal reflux disease) History of CVA (cerebrovascular accident) Had RUE weakness and numbness after 09/17/21 breast surgery- CT scan of head negative; unable to do MRI due to ICD Per PCP records 10/22/21= "[place] her post op RUE sx related to possible small stroke/TIA" Hypothyroidism Insomnia Ischemic cardiomyopathy Left bundle branch block Nausea and vomiting after administration of anesthetic agent severe PONV s/p Left carotid surgery 09/27/21 at [facility] NSTEMI (non-ST elevated myocardial infarction) Most recent 12/2019 (mild per patient) PAD (peripheral artery disease) S/p CATALOGUE ILLUSTRATOR and stenting of right SFA, and CATALOGUE ILLUSTRATOR of left SFA and common femoral artery PAF (paroxysmal atrial fibrillation) Pulmonary hypertension RVSP 40-45mmHg on 10/2020 ECHO Rheumatoid arthritis No medications Followed with rheum in the past- no recent issues Secondary hyperparathyroidism of renal origin SOB (shortness of breath) on exertion Spondylosis Subclavian artery stenosis Surgical History H/O colonoscopy H/O heart artery stent H/O: section History of appendectomy History of cardiac cath TOTAL 6? STENTS- 2018 and 2019 History of cataract surgery right and left History of cholecystectomy History of hysterectomy History of left-sided carotid endarterectomy (09/27/21) redo L CEA, Dr Bateman History of oophorectomy S/P angioplasty (02/03/21) CATALOGUE ILLUSTRATOR L SFA S/P carotid endarterectomy B/l 2016 S/P coronary artery stent placement (10/2017) NATY to mid LAD S/P coronary artery stent placement (10/2018) NATY prox mid LAD 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) S/P thoracentesis (03/2020) b/l d/t CHF Status post partial mastectomy of right breast (09/17/21) 09/17/21 - Done under [facility] with LMA #4. Atraumatic LMA insertion. Magnet placed secondary to pacemaker. Right Breast Partial Mastectomy with [place] Vice Investigator Localization, Right Axillary [place] Lymph Node Biopsy(Right) - Hua Acosta, DO Family History Daughter Coronary heart disease Cardiac stent Diabetes Mother , 83yo Diabetes Family history of hypercholesterolemia Myocardial infarction Hypertension Stroke Brother Colorectal cancer 1/2 brother Father , Accident in war Brother Diabetes 1/2 brother;Complications of DM Family/Other Myocardial infarction 1/2 sister Son Coronary heart disease Cardiac stent Hypertension Other Pacemaker Denies family history of Ovarian cancer Prostate cancer Breast cancer Social History Smoking Status: Never smoker Second Hand Exposure: Yes (spouse smoked); Hx Alcohol Use: No Hx Substance Use: No Preferred Language: Botswanan Communication Ability: Effective Visual Impairment: No Limitations Hearing Ability: Hard of Hearing Skidder Driver Required: No Beliefs That Will Affect Care: None marital status: / marital status details: passed 2000 Current Living Situation: Alone current occupational status: retired 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 How many Children do You have: 2 Feels Safe at Home: Yes caffeine: Yes (1 cup/day) during the past year weight has: remained stable Seatbelt Use: always Assistive Devices: Walker Review of Systems Review of Systems: All systems reviewed & are unremarkable except as noted in HPI & below Physical Exam Constitutional: WD/WN, vitals as above Eyes: EOM intact bilaterally; no conjunctival abnormality ENMT: external ear and nose normal, oropharynx normal Neck: trachea midline, no thyromegaly normal visual inspection Respiratory: normal respiratory effort, lungs clear to auscultation no respiratory distress Cardiovascular: Rate/Rhythm: regular rate and + irregularly irregular Vessels: + JVD Extremities: + edema (Very trace) Gastrointestinal (Abdomen): Inspection/Auscultation: abdomen normal to inspection; abdomen not distended Musculoskeletal: no cyanosis or clubbing, extremities motor strength 5/5 Skin: no rashes, warm and dry Neurologic: moves all extremities and awake Psychiatric: Orientation: alert, oriented to person and cooperative Results & Data Results & Data ([place]) Vital Signs (Past 12 Hours) Vital Signs Temp Pulse Pulse Resp BP BP Pulse Ox 06/10/22 14:03 96 06/10/22 14:03 20 96 06/10/22 14:03 82 20 167/96 H 96 06/10/22 14:03 96 06/10/22 13:08 36.9 C 78 22 151/85 H 94 O2 Del Method 06/10/22 14:03 Room Air 06/10/22 14:03 Room Air 06/10/22 14:03 Room Air 06/10/22 14:03 Room Air 06/10/22 13:08 Room Air Code Status & VTE Plan VTE Prophylaxis Plan VTE Prophylaxis will be ordered: Yes PG Care Time/CCT Total # of Minutes Spent Total Time Spent with Patient: Total time spent is greater than 50% in coordination of care (as documented) at patient's floor/unit and/or counseling patient: Coding Level of Care Code 23626 Initial Inpt Care Lvl 3 Diagnoses Congestive heart failure I50.9 Heart failure chronicity: acute on chronic Heart failure type: unspecified PAF (paroxysmal atrial fibrillation) I48.0 Chronic combined systolic and diastolic CHF (congestive heart failure) I50.42 S/P coronary artery stent placement Z95.5 Hypothyroidism E03.9 Hypothyroidism type: acquired DM II (diabetes mellitus, type II), controlled E11.21; Z79.4 Diabetes mellitus manager long term care insulin use: with senior living use Diabetes mellitus complication status: with kidney complications Diabetes mellitus complication detail: with nephropathy (1) Congestive heart failure Heart failure chronicity: acute on chronic Heart failure type: unspecified Qualified Code(s): I50.9 - Heart failure, unspecified (2) Hypothyroidism Hypothyroidism type: acquired Qualified Code(s): E03.9 - Hypothyroidism, unspecified (3) DM II (diabetes mellitus, type II), controlled Diabetes mellitus senior living insulin use: with senior living use Diabetes mellitus complication status: with kidney complications Diabetes mellitus complication detail: with nephropathy Qualified Code(s): E11.21 - Type 2 diabetes mellitus with diabetic nephropathy; Z79.4 - lobsterman (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
--- NOTE | 2022-06-10 17:32 | XRay Report ---
XR chest 2V PA/lateral CLINICAL HISTORY: Better review pleural effusion COMPARISON STUDY: Chest radiograph June 10, 2022 at 2:11 PM. FINDINGS: Left subclavian biventricular pacer/AICD is in place. There is a prosthetic aortic valve. C ardiomegaly is noted. No pneumothorax. Moderate right and trace left pleural effusions are present. M ild interstitial pulmonary edema is noted. Cardiomediastinal silhouette is stable. IMPRESSION: 1. Moderate right and trace left pleural effusions. 2. Mild interstitial pulmonary edema. ACT 112: Negative or not required by law. Electronically signed by: Cali Jacobo M.D. 06/10/2022 5:31 PM
[2022-06-10] MEDS ORDERED: DEXTROSE 50% 50 ML SYRINGE IV PRN (18:37)
[2022-06-10] MEDS ORDERED: CARBOHYDRATES FOR HYPOGLYCEMIA PO PRN (18:37)
[2022-06-10] MEDS ORDERED: GLUCOSE 40% GEL 15 GM TUBE PO PRN (18:37)
[2022-06-10] MEDS ORDERED: GLUCOSE 10 TAB/TUBE PO PRN (18:37)
[2022-06-10] MEDS ORDERED: GLUCAGON FOR INJ 1 MG VIAL SQ PRN (18:37)
[2022-06-10] MEDS: INSULIN ASPART PER UNIT SC SCH ×2 (19:18→22:56)
[2022-06-10] MEDS: BUMETANIDE 2 MG in SYRINGE 0 ML IV SCH (20:17)
[2022-06-10] MEDS: HYDROCODONE/ACETAMOPHEN 5/325MG TAB PO SCH (21:28)
[2022-06-10] MEDS: carvediloL 6.25 MG TAB PO SCH (21:29)
[2022-06-10] MEDS: RANOLAZINE 500 MG ER TAB PO SCH (21:29)
[2022-06-10] MEDS: TICAGRELOR 90 MG TAB PO SCH (21:29)
[2022-06-10] MEDS: PANTOprazole 40 MG TAB PO SCH (21:30)
[2022-06-10] MEDS: APIXABAN 2.5 MG TAB PO SCH (21:30)
[2022-06-10] MEDS: AMIODARONE 200 MG TAB PO SCH (21:31)
[2022-06-10] MEDS: POLYETHYLENE (MIRALAX) 17 GM PACK PO SCH (21:33)
[2022-06-11] MEDS: ACETAMINOPHEN 325 MG TAB PO PRN (02:02)
[2022-06-11] MEDS: HYDROCODONE/ACETAMOPHEN 5/325MG TAB PO SCH ×3 (02:41→20:00)
[2022-06-11] MEDS: LEVOTHYROXINE SODIUM 75 MCG TABLET PO SCH (05:53)
[2022-06-11 08:32] LABS: Hematocrit (blood only) 40.5 % (34.1-44.9); Hemoglobin 13.2 g/dl (12.0-16.0); Mean Corpuscular Hemoglobin 33.3 pg (25.0-34.0); Mean Corpuscular Hgb Conc 32.6 g/dL (32.0-36.0); Mean Corpuscular Volume 102.3 fL (80.0-100.0); Mean Platelet Volume 10.7 fL (9.4-12.3); Platelet Count 209 K/uL (130-400); RDW Standard Deviation 48.5 fL (36.4-46.3); Red Blood Count 3.96 M/uL (3.93-5.22); White Blood Count 7.44 K/ul (4.8-10.8)
[2022-06-11] MEDS: ANASTROZOLE 1 MG TAB PO SCH (09:12)
[2022-06-11] MEDS: APIXABAN 2.5 MG TAB PO SCH ×2 (09:12→20:00)
[2022-06-11] MEDS: RANOLAZINE 500 MG ER TAB PO SCH ×2 (09:12→20:00)
[2022-06-11] MEDS: SERTRALINE HCL 50 MG TABLET PO SCH (09:12)
[2022-06-11] MEDS: TICAGRELOR 90 MG TAB PO SCH ×2 (09:13→20:00)
[2022-06-11] MEDS: carvediloL 3.125 MG TAB PO SCH (09:13)
[2022-06-11] MEDS: PANTOprazole 40 MG TAB PO SCH ×2 (09:13→20:00)
[2022-06-11] MEDS: BUMETANIDE 2 MG in SYRINGE 0 ML IV SCH ×2 (09:14→17:26)
[2022-06-11] MEDS: INSULIN ASPART PER UNIT SC SCH ×4 (09:16→20:52)
[2022-06-11 09:17] LABS: BUN Creatinine Ratio 14.9 (10-20); Calcium 9.3 mg/dl (8.5-10.1); Creatinine Clr Calc Pharmacy 21.5 ml/min; Est GFR (African American) 23.3 ml/min; Est GFR (Non-African American) 20.1 ml/min; Magnesium 2.1 mg/dl (1.7-2.4); Potassium 4.1 mmol/L (3.5-5.1)
[2022-06-11 10:13] LABS: Estimated Average Glucose 154 mg/dl
--- NOTE | 2022-06-11 10:47 | XCELERA ---
[id number] \\[id number]_[id number]
[2022-06-11] MEDS: AMIODARONE 200 MG TAB PO SCH (20:00)
[2022-06-11] MEDS: carvediloL 6.25 MG TAB PO SCH (20:00)
[2022-06-11] MEDS: POLYETHYLENE (MIRALAX) 17 GM PACK PO SCH (20:01)
--- NOTE | 2022-06-11 22:01 | Hospitalist Progress Note ---
Date of Service June 11, 2022 Assessment & Plan (1) Congestive heart failure: Plan: Patient reports home dry weight as 199 lbs and now up to 206 lbs on home scale. Reports some LE edema, though very mild to me. JVD present. - Bumex 2 mg IV BID (doubling of what she was taking at home) - I&Os, daily weights - Will get 2vCXR to better look at right pleural effusion. Patient reports prior thoracentesis improved her breathing more than Bumex. Could consider padilla montano for this. On 06/11, she is tolerating the diuretic. Feeling better. (2) PAF (paroxysmal atrial fibrillation): Plan: In paced rhythm on telemetry. - Continue amiodarone, apixaban, beta-estephania, & digoxin (3) Chronic combined systolic and diastolic CHF (congestive heart failure): Plan: As above (4) S/P coronary artery stent placement: Plan: No chest pain. Troponin not concerning. EKG hard to interpret given largely paced rhythm, but looks similar to EKG from 11/2021 and was reviewed as similar by the homeland security program specialist. - Contine home ASA, beta-estephania (5) Hypothyroidism: Plan: - Continue home levothyroxine - TSH in the AM (6) DM II (diabetes mellitus, type II), controlled: Plan: Last A1c was 6.4%. Generally uses 70/30 with last dose this morning. Usually 15 units - 30 units depending on her blood sugar. - Sliding scale insulin - Repeat A1c Plan Conditional code - Patient does not want intubation/ventilation. Ok with 1 round of CPR. BiPap ok. No hemodialysis in the event of kidney failure. Admission and Anticipated Discharge Date Admission Date: June 10, 2022 Subjective 81 yo female reports feeling better. She has no new complaints. Review of Systems Review of Systems: All systems reviewed & are unremarkable except as noted in HPI & below Physical Exam Constitutional: WD/WN, vitals as above Eyes: EOM intact bilaterally; no conjunctival abnormality ENMT: external ear and nose normal, oropharynx normal Neck: trachea midline, no thyromegaly normal visual inspection Respiratory: normal respiratory effort, lungs clear to auscultation no respiratory distress Cardiovascular: Rate/Rhythm: regular rate and + irregularly irregular Vessels: + JVD Extremities: + edema (Very trace) Gastrointestinal (Abdomen): Inspection/Auscultation: abdomen normal to inspection; abdomen not distended Musculoskeletal: no cyanosis or clubbing, extremities motor strength 5/5 Skin: no rashes, warm and dry Neurologic: moves all extremities and awake Psychiatric: Orientation: alert, oriented to person and cooperative Results & Data Results & Data ([facility]) Vital Signs (Past 12 Hours) Vital Signs Temp Pulse Resp BP Pulse Ox O2 Del Method 06/11/22 20:08 36.6 C 72 20 135/74 92 Room Air 06/11/22 19:37 Room Air 06/11/22 15:11 36.5 C 67 20 143/67 H 92 Room Air 06/11/22 11:16 36.4 C L 64 18 166/76 H 93 Room Air PG Care Time/CCT Total # of Minutes Spent Total Time Spent with Patient: Total time spent is greater than 50% in coordination of care (as documented) at patient's floor/unit and/or counseling patient: Coding Level of Care Code 62705 Subseq Hosp Care Lvl 2 Diagnoses Congestive heart failure I50.9 Heart failure chronicity: acute on chronic Heart failure type: unspecified PAF (paroxysmal atrial fibrillation) I48.0 Chronic combined systolic and diastolic CHF (congestive heart failure) I50.42 S/P coronary artery stent placement Z95.5 Hypothyroidism E03.9 Hypothyroidism type: acquired DM II (diabetes mellitus, type II), controlled E11.21; Z79.4 Diabetes mellitus complication detail: with nephropathy Diabetes mellitus complication status: with kidney complications Diabetes mellitus [facility] insulin use: with [facility] use (1) Congestive heart failure Heart failure chronicity: acute on chronic Heart failure type: unspecified Qualified Code(s): I50.9 - Heart failure, unspecified (2) Hypothyroidism Hypothyroidism type: acquired Qualified Code(s): E03.9 - Hypothyroidism, unspecified (3) DM II (diabetes mellitus, type II), controlled Diabetes mellitus complication detail: with nephropathy Diabetes mellitus complication status: with kidney complications Diabetes mellitus intermediate accountant insulin use: with [facility] use Qualified Code(s): E11.21 - Type 2 diabetes mellitus with diabetic nephropathy; Z79.4 - [facility] (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
[2022-06-12] MEDS: HYDROCODONE/ACETAMOPHEN 5/325MG TAB PO SCH ×3 (02:23→19:29)
[2022-06-12] MEDS: ONDANSETRON INJ 2 MG/ML 2 ML VIAL IV PRN ×3 (05:40→21:00)
[2022-06-12] MEDS: LEVOTHYROXINE SODIUM 75 MCG TABLET PO SCH (05:40)
[2022-06-12 07:47] LABS: Hematocrit (blood only) 38.1 % (34.1-44.9); Hemoglobin 12.3 g/dl (12.0-16.0); Mean Corpuscular Hemoglobin 33.7 pg (25.0-34.0); Mean Corpuscular Hgb Conc 32.3 g/dL (32.0-36.0); Mean Corpuscular Volume 104.4 fL (80.0-100.0); Mean Platelet Volume 10.9 fL (9.4-12.3); Platelet Count 192 K/uL (130-400); RDW Coefficient of Variation 13.1 % (11.5-14.5); RDW Standard Deviation 49.4 fL (36.4-46.3); Red Blood Count 3.65 M/uL (3.93-5.22); White Blood Count 8.09 K/ul (4.8-10.8)
[2022-06-12 08:11] LABS: BUN Creatinine Ratio 16.7 (10-20); Calcium 9.1 mg/dl (8.5-10.1); Creatinine Clr Calc Pharmacy 22.6 ml/min; Est GFR (African American) 24.8 ml/min; Est GFR (Non-African American) 21.4 ml/min; Potassium 4.2 mmol/L (3.5-5.1)
[2022-06-12] MEDS: TICAGRELOR 90 MG TAB PO SCH ×2 (08:44→20:02)
[2022-06-12] MEDS: PANTOprazole 40 MG TAB PO SCH ×2 (08:45→20:00)
[2022-06-12] MEDS: ANASTROZOLE 1 MG TAB PO SCH (08:45)
[2022-06-12] MEDS: APIXABAN 2.5 MG TAB PO SCH ×2 (08:45→20:02)
[2022-06-12] MEDS: SERTRALINE HCL 50 MG TABLET PO SCH (08:45)
[2022-06-12] MEDS: RANOLAZINE 500 MG ER TAB PO SCH ×2 (08:45→20:00)
[2022-06-12] MEDS: carvediloL 3.125 MG TAB PO SCH (08:46)
[2022-06-12] MEDS: CALCITRIOL 0.25 MCG CAPSULE PO SCH (08:46)
[2022-06-12] MEDS: BUMETANIDE 2 MG in SYRINGE 0 ML IV SCH ×2 (08:46→18:16)
[2022-06-12] MEDS: INSULIN ASPART PER UNIT SC SCH ×4 (08:46→20:59)
[2022-06-12] MEDS ORDERED: HYDROCODONE/ACETAMOPHEN 5/325MG TAB PO PRN (19:16)
[2022-06-12] MEDS ORDERED: FAMOTIDINE 40 MG TABLET PO ONE (20:00)
[2022-06-12] MEDS: POLYETHYLENE (MIRALAX) 17 GM PACK PO SCH (20:00)
[2022-06-12] MEDS: AMIODARONE 200 MG TAB PO SCH (20:01)
[2022-06-12] MEDS: carvediloL 6.25 MG TAB PO SCH (20:02)
[2022-06-12 20:06] LABS: BUN Creatinine Ratio 16.7 (10-20); Calcium 9.2 mg/dl (8.5-10.1); Creatinine Clr Calc Pharmacy 21.4 ml/min; Est GFR (African American) 23.3 ml/min; Est GFR (Non-African American) 20.1 ml/min; Potassium 4.5 mmol/L (3.5-5.1)
[2022-06-12 20:10] LABS: Troponin I High Sensitivity 31.2 pg/ml (0-14)
--- NOTE | 2022-06-12 21:29 | Hospitalist Progress Note ---
Date of Service June 12, 2022 Assessment & Plan (1) Congestive heart failure: Plan: Patient reports home dry weight as 199 lbs and now up to 206 lbs on home scale. Reports some LE edema, though very mild to me. JVD present. - Bumex 2 mg IV BID (doubling of what she was taking at home) - I&Os, daily weights - Will get 2vCXR to better look at right pleural effusion. Patient reports prior thoracentesis improved her breathing more than Bumex. Could consider padilla montano for this. On 06/11, she is tolerating the diuretic. Feeling better. On 06/12 Patient now complaining of abdominal pain. Ordered some pepcid, switched her pain medicine to PRN. May be side effect of her pain meds. will recheck her BMP. may hold diuretic in AM. (2) PAF (paroxysmal atrial fibrillation): Plan: In paced rhythm on telemetry. - Continue amiodarone, apixaban, beta-estephania, & digoxin (3) Chronic combined systolic and diastolic CHF (congestive heart failure): Plan: As above (4) S/P coronary artery stent placement: Plan: No chest pain. Troponin not concerning. EKG hard to interpret given largely paced rhythm, but looks similar to EKG from 11/2021 and was reviewed as similar by the executive staff assistant. - Contine home ASA, beta-estephania (5) Hypothyroidism: Plan: - Continue home levothyroxine - TSH in the AM (6) DM II (diabetes mellitus, type II), controlled: Plan: Last A1c was 6.4%. Generally uses 70/30 with last dose this morning. Usually 15 units - 30 units depending on her blood sugar. - Sliding scale insulin - Repeat A1c Plan Conditional code - Patient does not want intubation/ventilation. Ok with 1 round of CPR. BiPap ok. No hemodialysis in the event of kidney failure. Admission and Anticipated Discharge Date Admission Date: June 10, 2022 Subjective 81 yo female reports having nausea and abdominal pain in her epigastric region. Review of Systems Review of Systems: All systems reviewed & are unremarkable except as noted in HPI & below Physical Exam Constitutional: WD/WN, vitals as above Eyes: EOM intact bilaterally; no conjunctival abnormality ENMT: external ear and nose normal, oropharynx normal Neck: trachea midline, no thyromegaly normal visual inspection Respiratory: normal respiratory effort, lungs clear to auscultation no respiratory distress Cardiovascular: Rate/Rhythm: regular rate and + irregularly irregular Vessels: + JVD Extremities: + edema (Very trace) Gastrointestinal (Abdomen): Inspection/Auscultation: abdomen normal to inspection; abdomen not distended Musculoskeletal: no cyanosis or clubbing, extremities motor strength 5/5 Skin: no rashes, warm and dry Neurologic: moves all extremities and awake Psychiatric: Orientation: alert, oriented to person and cooperative Results & Data Results & Data ([facility]) Vital Signs (Past 12 Hours) Vital Signs Temp Pulse Resp BP Pulse Ox O2 Del Method 06/12/22 20:00 36.7 C 84 20 179/108 H 93 Room Air 06/12/22 16:38 36.6 C 65 17 168/82 H 92 Room Air 06/12/22 11:54 36.1 C L 70 18 142/71 H 90 Room Air PG Care Time/CCT Total # of Minutes Spent Total Time Spent with Patient: Total time spent is greater than 50% in coordination of care (as documented) at patient's floor/unit and/or counseling patient: Coding Level of Care Code 08254 Subseq Hosp Care Lvl 2 Diagnoses Congestive heart failure I50.9 Heart failure chronicity: acute on chronic Heart failure type: unspecified PAF (paroxysmal atrial fibrillation) I48.0 Chronic combined systolic and diastolic CHF (congestive heart failure) I50.42 S/P coronary artery stent placement Z95.5 Hypothyroidism E03.9 Hypothyroidism type: acquired DM II (diabetes mellitus, type II), controlled E11.21; Z79.4 Diabetes mellitus complication detail: with nephropathy Diabetes mellitus complication status: with kidney complications Diabetes mellitus intermediate insulin use: with middle or intermediate school principal use (1) Congestive heart failure Heart failure chronicity: acute on chronic Heart failure type: unspecified Qualified Code(s): I50.9 - Heart failure, unspecified (2) Hypothyroidism Hypothyroidism type: acquired Qualified Code(s): E03.9 - Hypothyroidism, unspecified (3) DM II (diabetes mellitus, type II), controlled Diabetes mellitus complication detail: with nephropathy Diabetes mellitus complication status: with kidney complications Diabetes mellitus intermediate insulin use: with intermediate use Qualified Code(s): E11.21 - Type 2 diabetes mellitus with diabetic nephropathy; Z79.4 - middle or intermediate school principal (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
[2022-06-12] MEDS: traZODone HCL 50 MG TAB PO PRN (22:40)
[2022-06-12] MEDS ORDERED: METOCLOPRAMIDE HCL INJ 5 MG/ML 2 ML VIAL IV STA (22:48)
[2022-06-13] MEDS: LEVOTHYROXINE SODIUM 75 MCG TABLET PO SCH (05:54)
[2022-06-13] MEDS: INSULIN ASPART PER UNIT SC SCH ×4 (08:48→20:15)
[2022-06-13] MEDS: APIXABAN 2.5 MG TAB PO SCH ×2 (08:49→20:14)
[2022-06-13] MEDS: TICAGRELOR 90 MG TAB PO SCH ×2 (08:49→20:14)
[2022-06-13] MEDS: carvediloL 3.125 MG TAB PO SCH (08:50)
[2022-06-13] MEDS: PANTOprazole 40 MG TAB PO SCH ×2 (08:50→20:15)
[2022-06-13] MEDS: SERTRALINE HCL 50 MG TABLET PO SCH (08:50)
[2022-06-13] MEDS: RANOLAZINE 500 MG ER TAB PO SCH ×2 (08:50→20:14)
[2022-06-13] MEDS: ANASTROZOLE 1 MG TAB PO SCH (08:51)
[2022-06-13 09:28] LABS: Hematocrit (blood only) 38.5 % (34.1-44.9); Hemoglobin 12.5 g/dl (12.0-16.0); Mean Corpuscular Hemoglobin 33.2 pg (25.0-34.0); Mean Corpuscular Hgb Conc 32.5 g/dL (32.0-36.0); Mean Corpuscular Volume 102.1 fL (80.0-100.0); Mean Platelet Volume 11.1 fL (9.4-12.3); Platelet Count 209 K/uL (130-400); RDW Coefficient of Variation 13.1 % (11.5-14.5); Red Blood Count 3.77 M/uL (3.93-5.22); White Blood Count 8.32 K/ul (4.8-10.8)
[2022-06-13 09:54] LABS: BUN Creatinine Ratio 17.4 (10-20); Creatinine Clr Calc Pharmacy 21.7 ml/min; Est GFR (African American) 23.7 ml/min; Est GFR (Non-African American) 20.4 ml/min; Potassium 4.1 mmol/L (3.5-5.1)
[2022-06-13] MEDS: DIGOXIN 0.125 MG TAB PO SCH (15:43)
[2022-06-13] MEDS: LANTUS PER UNIT CHARGE SQ SCH (17:17)
--- NOTE | 2022-06-13 17:52 | XRay Report ---
XR chest 2V PA/lateral CLINICAL HISTORY: Congestive heart failure. COMPARISON STUDY: Chest radiograph June 10, 2022. FINDINGS: Left subclavian biventricular pacer/AICD and prosthetic aortic valve are noted. Cardiomegal y is unchanged. There is no pneumothorax. Moderate right and trace left pleural effusions are similar to prior exam. Mild interstitial pulmonary edema persists. No consolidation is identified to suggest pneumonia. Appearance of the chest is unchanged. There are cholecystectomy clips. IMPRESSION: No change in appearance of the chest. Mild interstitial pulmonary edema with moderate ri ght and trace left pleural effusions. ACT 112: Negative or not required by law. Electronically signed by: Cali Jacobo M.D. 06/13/2022 5:51 PM
[2022-06-13] MEDS: carvediloL 6.25 MG TAB PO SCH (20:14)
[2022-06-13] MEDS: POLYETHYLENE (MIRALAX) 17 GM PACK PO SCH (20:15)
[2022-06-13] MEDS: AMIODARONE 200 MG TAB PO SCH (20:15)
--- NOTE | 2022-06-13 21:17 | Hospitalist Progress Note ---
Date of Service June 13, 2022 Assessment & Plan (1) Congestive heart failure: Plan: Patient reports home dry weight as 199 lbs and now up to 206 lbs on home scale. Reports some LE edema, though very mild to me. JVD present. - Bumex 2 mg IV BID (doubling of what she was taking at home) - I&Os, daily weights - Will get 2vCXR to better look at right pleural effusion. Patient reports prior thoracentesis improved her breathing more than Bumex. Could consider padilla montano for this. On 06/11, she is tolerating the diuretic. Feeling better. On 06/12 Patient now complaining of abdominal pain. Ordered some pepcid, switched her pain medicine to PRN. May be side effect of her pain meds. will recheck her BMP. may hold diuretic in AM. 06/13 continue diuretic after holding am dose. repeat blood work consult chf clinic check labs and xray (2) PAF (paroxysmal atrial fibrillation): Plan: In paced rhythm on telemetry. - Continue amiodarone, apixaban, beta-estephania, & digoxin (3) Chronic combined systolic and diastolic CHF (congestive heart failure): Plan: As above (4) S/P coronary artery stent placement: Plan: No chest pain. Troponin not concerning. EKG hard to interpret given largely paced rhythm, but looks similar to EKG from 11/2021 and was reviewed as similar by the corn press operator. - Contine home ASA, beta-estephania (5) Hypothyroidism: Plan: - Continue home levothyroxine - TSH in the AM (6) DM II (diabetes mellitus, type II), controlled: Plan: Last A1c was 6.4%. Generally uses 70/30 with last dose this morning. Usually 15 units - 30 units depending on her blood sugar. - Sliding scale insulin - Repeat A1c Plan Conditional code - Patient does not want intubation/ventilation. Ok with 1 round of CPR. BiPap ok. No hemodialysis in the event of kidney failure. Admission and Anticipated Discharge Date Admission Date: June 10, 2022 Subjective Patient reports mild improvement in her abdomen today. She is having SOB when she ambulates the phipps, but it is difficult to obtain if this is her baseline, as she does not ambulate much at home. Patient is requesting a consult with Erinn adorno Review of Systems Review of Systems: All systems reviewed & are unremarkable except as noted in HPI & below Physical Exam Constitutional: WD/WN, vitals as above Eyes: EOM intact bilaterally; no conjunctival abnormality ENMT: external ear and nose normal, oropharynx normal Neck: trachea midline, no thyromegaly normal visual inspection Respiratory: normal respiratory effort, lungs clear to auscultation no respiratory distress Cardiovascular: Rate/Rhythm: regular rate and + irregularly irregular Vessels: + JVD Extremities: + edema (Very trace) Gastrointestinal (Abdomen): Inspection/Auscultation: abdomen normal to inspection; abdomen not distended Musculoskeletal: no cyanosis or clubbing, extremities motor strength 5/5 Skin: no rashes, warm and dry Neurologic: moves all extremities and awake Psychiatric: Orientation: alert, oriented to person and cooperative Results & Data Results & Data ([facility]) Vital Signs (Past 12 Hours) Vital Signs Temp Pulse Pulse Resp BP Pulse Ox Pulse Ox 06/13/22 19:57 06/13/22 18:47 36.7 C 72 19 134/69 96 06/13/22 16:07 36.6 C 85 20 125/66 91 06/13/22 15:43 68 06/13/22 14:23 61 06/13/22 11:33 36.4 C L 76 18 147/76 H 92 06/13/22 10:14 92 Pulse Ox O2 Del Method O2 Flow Rate O2 Flow Rate 06/13/22 19:57 Room Air 06/13/22 18:47 Room Air 06/13/22 16:07 Room Air 06/13/22 15:43 06/13/22 14:23 06/13/22 11:33 Room Air 06/13/22 10:14 88 L 0 0 PG Care Time/CCT Total # of Minutes Spent Total Time Spent with Patient: Total time spent is greater than 50% in coordination of care (as documented) at patient's floor/unit and/or counseling patient: Coding Level of Care Code 47106 Subseq Hosp Care Lvl 2 Diagnoses Congestive heart failure I50.9 Heart failure chronicity: acute on chronic Heart failure type: unspecified PAF (paroxysmal atrial fibrillation) I48.0 Chronic combined systolic and diastolic CHF (congestive heart failure) I50.42 S/P coronary artery stent placement Z95.5 Hypothyroidism E03.9 Hypothyroidism type: acquired DM II (diabetes mellitus, type II), controlled E11.21; Z79.4 Diabetes mellitus complication detail: with nephropathy Diabetes mellitus complication status: with kidney complications Diabetes mellitus long term care pharmacist insulin use: with alf use (1) Congestive heart failure Heart failure chronicity: acute on chronic Heart failure type: unspecified Qualified Code(s): I50.9 - Heart failure, unspecified (2) Hypothyroidism Hypothyroidism type: acquired Qualified Code(s): E03.9 - Hypothyroidism, unspecified (3) DM II (diabetes mellitus, type II), controlled Diabetes mellitus complication detail: with nephropathy Diabetes mellitus complication status: with kidney complications Diabetes mellitus long term care pharmacist insulin use: with alf use Qualified Code(s): E11.21 - Type 2 diabetes mellitus with diabetic nephropathy; Z79.4 - FPC (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
[2022-06-13] MEDS: traZODone HCL 50 MG TAB PO PRN (21:47)
[2022-06-14] MEDS: LEVOTHYROXINE SODIUM 75 MCG TABLET PO SCH (05:43)
[2022-06-14 07:15] LABS: Hematocrit (blood only) 35.1 % (34.1-44.9); Hemoglobin 11.6 g/dl (12.0-16.0); Mean Corpuscular Hemoglobin 33.1 pg (25.0-34.0); Mean Corpuscular Volume 100.3 fL (80.0-100.0); Mean Platelet Volume 10.6 fL (9.4-12.3); Platelet Count 183 K/uL (130-400); RDW Standard Deviation 47.8 fL (36.4-46.3); White Blood Count 6.54 K/ul (4.8-10.8)
[2022-06-14 07:37] LABS: BUN Creatinine Ratio 18.3 (10-20); Calcium 8.8 mg/dl (8.5-10.1); Creatinine Clr Calc Pharmacy 21.7 ml/min; Est GFR (African American) 23.7 ml/min; Est GFR (Non-African American) 20.4 ml/min; Potassium 4.1 mmol/L (3.5-5.1)
[2022-06-14] MEDS: PANTOprazole 40 MG TAB PO SCH ×2 (08:15→20:48)
[2022-06-14] MEDS: carvediloL 3.125 MG TAB PO SCH ×2 (08:15→20:49)
[2022-06-14] MEDS: APIXABAN 2.5 MG TAB PO SCH ×2 (08:15→20:49)
[2022-06-14] MEDS: ANASTROZOLE 1 MG TAB PO SCH (08:15)
[2022-06-14] MEDS: SERTRALINE HCL 50 MG TABLET PO SCH (08:15)
[2022-06-14] MEDS: TICAGRELOR 90 MG TAB PO SCH ×2 (08:15→20:47)
[2022-06-14] MEDS: CALCITRIOL 0.25 MCG CAPSULE PO SCH (08:16)
[2022-06-14] MEDS: BUMETANIDE 2 MG in SYRINGE 0 ML IV SCH ×2 (08:16→17:53)
[2022-06-14] MEDS: RANOLAZINE 500 MG ER TAB PO SCH ×2 (08:16→20:47)
[2022-06-14] MEDS: LANTUS PER UNIT CHARGE SQ SCH (08:16)
[2022-06-14] MEDS: INSULIN ASPART PER UNIT SC SCH ×4 (08:16→20:35)
--- NOTE | 2022-06-14 10:32 | Heart Failure Consultation ---
Date of Consultation June 14, 2022 Assessment & Plan (1) HFrEF (heart failure with reduced ejection fraction): (2) Mitral regurgitation: (3) Pulmonary hypertension: (4) S/P coronary artery stent placement: (5) Ischemic cardiomyopathy: (6) Biventricular ICD (implantable cardioverter-defibrillator) in place: (7) S/P TAVR (transcatheter aortic valve replacement): (8) CAD (coronary artery disease): (9) PAD (peripheral artery disease): (10) Bilateral carotid artery stenosis: Plan 1. Acute on chronic HFrEF: She remains hypervolemic on exam. Her weight is at baseline. Kidney function is stable. Would continue to optimize her volume status. Continue Bumex 2 mg IV BID. Encourage strict documentation of I&Os with a goal of at least 1 L negative per day. Continue to monitor kidney function and electrolytes. She should continue daily standing weights. Dry weight 199 lb. Low-sodium diet was recommended, less than 2000 mg. 2. Ischemic Cardiomyopathy: LV ejection fraction 30-35%. She has documented intolerance to HERMELINDO/ARBs due to chronic kidney disease. Continue Carvedilol. She had symptomatic hypotension with higher doses in the past. Losartan has been discontinued due to orthostatic symptoms. She still continues to have intermittent lightheadedness but improved from previous.Continue medical therapy. She was upgraded to a biventricular device. 3. Hypokalemia: Continue monitoring and current medical therapy. 4. Paroxysmal Atrial fibrillation/flutter: Continue rate control with Amiodarone, Digoxin, and Carvedilol. Continue Eliquis for stroke risk reduction. She was cardioverted during her hospitalization. Patient is asymptomatic. 5. Hypertension: Well controlled. Continue current regimen. 7. Aortic stenosis- s/p TAVR 8. CAD: No current anginal symptoms. Continue Brillinta, beta estephania, and Eliquis per Dr. Bateman. Patient self decreased her Ranexa 9. Pleural effusion: Chronic. Not requiring O2 at this time. Had thoracentesis in March 2020 with clinical improvement. Pulm recommended 1 year follow up with PFTs at that time. Would continue to optimize her diuretics as above and re- assess her clinical response. Could consider pulm consult/repeat thoracentesis if not improving. 10. Mitral regurgitation: Moderate to severe. May be contributing factor. Also in the setting of volume overload. Would consider repeat echo once optimized to reassess. 11. Goals of care: She does have a living will and the details have been communicated this with her family. Her children are her POAs. She wants to be able to complete her ADLs and run errands. Disposition: Follow-up with the heart failure program within 7 days of discharge. History of Present Illness Attending Physician: Bhanu Rueda History of Present Illness Ms. Barry is an 81-year-old female with a past medical history significant for coronary artery disease s/p multivessel PCI, ischemic cardiomyopathy, chronic combined CHF, paroxysmal atrial flutter, aortic stenosis sp TAVR 10/2019, moderate MR/TR, diabetes mellitus, CKD, hypothyroidism, carotid artery stenosis s/p bilateral carotid endarterectomies, peripheral arterial disease s/p left common femoral artery ROAD CUTTER and right SFA ROAD CUTTER and stenting, and symptomatic sinus bradycardia s/p dual-chamber pacemaker implantation 05/14/2018 with upgrade to a biventricular ICD on 04/30/2020. Dr. Irizarry is her primary cold header. She had the following studies: 1. 11/14/18 Echo- Left atrium is mildly dilated. Mild . Severe MR. RVSP is >60mmHg. Mild concentric LVH. LV systolic function is moderately to severely reduced, EF 25-30%. 2. 11/20/18 Echo- Limited views. LV systolic function midly reduced. EF 40-45%. 3. 03/19/19 Echo- borderline LV dilation. Moderate LV systolic dysfunction with EF 40-45%. Type 1 left ventricular diastolic dysfunction. Mild left atrial dilation. Moderate calcific aortic stenosis. Mild mitral regurgitation. Mild tricuspid regurgitation. Mildly elevated RVSP. Compared to 2017, aortic stenosis has worsened. 4. 09/04/19 Echo- Moderate to severe left ventricular systolic dysfunction, EF 30-35%. Moderate-severe aortic stenosis. Trace AR, Moderate MR, Moderate TR, Moderately elevated RVSP. 5. 05/2019 Cath- New severe mid circumflex 80% stenosis. Moderate multivessel non-obstructive CAD-30% ostial LM- 50% ostial circumflex- 50% ostial RCA- Widely patent LAD stents. Elevated LVEDP - 29. Successful PCI of mid circumflex with single NATY (2.75 x 18 Shahid). 6. 12/11/19 Echo: Mildly dilated LV with normal thickness. LVEF 25-30% with wall motion abnormalities. s/p TAVR with expected gradients. Moderate MR. Grade II diastolic dysfunction. Moderate pulm HTN, PASP 55-60 mmHg. Trace pericardial effusion. 6. 01/10/20 Cath- Severe left ostial main stenosis, moderate ostial circumflex, OM1 disease. Widely patent ostial RCA, LAD, and mid circumflex stents. 7. 03/30/20 Echo: LV normal size. EF 20-25%. Mild concentric LVH. Grade III diastolic dysfunction. Moderate MR. Large left pleural effusion. Well seated aortic valve. 8. 10/24/20 Echo: Mild dilation of LV and systolic dysfunction. EF 40-45%. TAVR. Moderate TR/MR. Mildly elevated RVSP. . 10/16/21 Echo: LV systolic function mildly reduced. Global hypokinesis of the LV. EF 40%. Prosthetic aortic valve is well-seated with normal gradient. Moderate MR/TR. 10. 11/26/21 Cardioversion 11. 06/11/22 Echo: LV systolic function moderately reduced. EF 30-35%. Left atrium moderately dilated. Bioprosthetic aortic valve. Mildly elevated transaortic gradient. Moderate to severe MR. RVSP elevated at 40-50 mmHg. Patient was admitted on 06/10/22 with increasing dyspnea on exertion and 5 lb weight gain. CXR with evidence of volume overload. She was treated with IV Bumex with good response. This was held yesterday. She feels somewhat improved but is still having significant dyspnea on exertion even walking to the bathroom. Her lower extremity edema is improving. She slept comfortably with her head slightly elevated. Kidney function and electrolytes stable. BNP 369 today. CXR remains similiar with pulmonary edema and moderate pleural effusion. She is net negative 2.8 L and weight is 199 lb this am on the standing scale.a Allergies Allergy/AdvReac Type Severity Reaction Status Date / Time adhesive Allergy Intermediate REDNESS Verified 06/10/22 17:47 AND IRRITATION FROM PAIN PATCH, TAPE latex Allergy Intermediate ALLERGIC Verified 06/10/22 17:47 TO LATEX TAPE/RASH/ITCHING morphine Allergy Intermediate swelling Verified 06/10/22 17:47 nausea vomiting olmesartan Allergy Unknown UNKNOWN Verified 06/10/22 17:47 benzonatate AdvReac Intermediate confusion Verified 06/10/22 17:47 [From Tessalon Perles] dulaglutide [From Trulicity] AdvReac Intermediate AFFECTS Verified 06/10/22 17:47 MUSCLES exenatide [From Byetta] AdvReac Intermediate Diarrhea Verified 06/10/22 17:47 ezetimibe AdvReac Intermediate MUSCLE Verified 06/10/22 17:47 ACHES glipizide AdvReac Intermediate Diarrhea Verified 06/10/22 17:47 glyburide AdvReac Intermediate Diarrhea Verified 06/10/22 17:47 lisinopril AdvReac Intermediate LIGHTHEADED Verified 06/10/22 17:47 AND DIZZY losartan AdvReac Intermediate dizziness Verified 06/10/22 17:47 metformin AdvReac Intermediate Diarrhea Verified 06/10/22 17:47 pioglitazone AdvReac Intermediate DIARRHEA Verified 06/10/22 17:47 NAUSEA sitagliptin [From Januvia] AdvReac Intermediate Diarrhea Verified 06/10/22 17:47 Nevmkuq-SJS-RuG Reductase AdvReac Intermediate myalgias Verified 06/10/22 17:47 Inhibitor and [Disfcfm-Uae-Rad Reductase weakness Inhibitor] aspirin AdvReac Mild GI SYMPTOMS Verified 06/10/22 17:47 Home Medications Medication Instructions Recorded Confirmed Type magnesium oxide 400 mg PO QPM #90 caps 04/01/19 06/10/22 Rx multivitamin (Multiple Vitamins 1 tab PO QAM 05/19/19 06/10/22 History tablet) polyethylene glycol 3350 17 17 g PO HS 03/29/20 06/10/22 History gram/dose oral powder (Miralax) vitamin E 268 mg (400 unit) capsule 400 unit PO QAM 03/29/20 06/10/22 History cholecalciferol (vitamin D3) 25 1,000 unit PO QAM 05/17/21 06/10/22 History mcg (1,000 unit) capsule trazodone 50 mg tablet 50 mg PO HS PRN insomnia #90 tabs 09/03/21 06/10/22 Rx garlic 1,000 mg capsule 1,000 mg PO QPM 09/07/21 06/10/22 History omega-3 fatty acids 1,000 mg 1,000 mg PO QPM 10/15/21 06/10/22 History capsule anastrozole 1 mg tablet (Arimidex) 1 mg PO QAM 11/11/21 06/10/22 History amiodarone 200 mg tablet (Pacerone) 200 mg PO QPM #90 tabs 12/27/21 06/10/22 Rx carvedilol 6.25 mg tablet (Coreg) 6.25 mg PO HS 12/29/21 06/10/22 History carvedilol 3.125 mg tablet 3.125 mg PO QAM #90 tabs 01/03/22 06/10/22 Rx ticagrelor 90 mg tablet (Brilinta) 90 mg PO BID #180 tabs 01/24/22 06/10/22 Rx insulin syringe-needle U-100 0.3 #100 ea 01/25/22 06/10/22 Rx mL 31 gauge x 5/16" (BD SafetyGlide Insulin Syringe) triamcinolone acetonide 0.5 % 1 applic topical BID PRN skin 02/24/22 06/10/22 Rx topical cream irritation #60 grams ranolazine 500 mg tablet,extended 500 mg PO BID #180 tabs 03/21/22 06/10/22 Rx release,12 hr (Ranexa) levothyroxine 75 mcg tablet 75 mcg PO QAM #90 tabs 03/24/22 06/10/22 Rx Xeroform #30 ea 03/29/22 06/10/22 Rx bumetanide 1 mg tablet 1 mg PO BID #180 tabs 03/29/22 06/10/22 Rx hydrofera blue Ready Foam Dressing #30 ea 03/29/22 06/10/22 Rx apixaban 2.5 mg tablet (Eliquis) 2.5 mg PO BID #60 tabs 04/06/22 06/10/22 Rx digoxin 125 mcg (0.125 mg) tablet 125 mcg PO 3XWK #36 tabs 04/13/22 06/10/22 Rx insulin aspar prt-insulin aspart 15 - 30 unit (0.15 - 0.3 mL) 04/29/22 06/10/22 Rx 100 unit/mL (70-30) subcutaneous subcut AMPM #30 mL soln (Novolog Mix 70-30 U-100 Insuln) calcitriol 0.25 mcg capsule 0.25 mcg PO 3XWK #12 caps 05/09/22 06/10/22 Rx (Rocaltrol) ondansetron HCl 4 mg tablet 4 mg PO Q8H PRN nausea and 05/17/22 06/10/22 Rx vomiting #30 tabs hydrocodone 5 mg-acetaminophen 325 1 tab PO Q8H 05/30/22 06/10/22 History mg tablet miconazole nitrate 2 % topical 1 applic topical DAILY #42.5 grams 05/30/22 06/10/22 Rx cream sertraline 25 mg tablet 25 mg PO DAILY #30 tabs 05/30/22 06/10/22 Rx pantoprazole 40 mg tablet,delayed 40 mg PO BID Stomach Upset #180 06/07/22 06/10/22 Rx release (Protonix) tabs ferrous sulfate 325 mg (65 mg 325 mg PO DAILY 06/10/22 06/10/22 History iron) tablet (iron) fluticasone propionate 50 2 spray intranasal DAILY PRN Nasal 06/10/22 06/10/22 History mcg/actuation nasal Congestion spray,suspension (Flonase Allergy Relief) potassium chloride 10 mEq 0 meq PO DAILY 06/10/22 06/10/22 History capsule,extended release Patient History Medical History Anemia due to chronic kidney disease Antiplatelet or antithrombotic long-term use Aortic stenosis, severe S/p TAVR 10/2019 Bilateral carotid artery stenosis H/o bilateral CEAs in 2015 Per 07/2021 vascular note- carotid ultrasound from office visit showed patent right CEA with velocities suggesting 50-59% stenosis restenosis Patent left CEA with velocities suggesting 99% restenosis - had re-do of left CEA 09/27/21 Biventricular ICD (implantable cardioverter-defibrillator) in place (04/30/20) [employer] implanted 04/30/2020. Capped right ventricular pacing lead Last check 09/2021 Breast cancer, right Right breast mastectomy 09/17/21 at [facility] CAD (coronary artery disease) F/U DR IRIZARRY S/p NATY x 1 to Cx in 2019; NATY to ostial LM 01/10/20 Chronic combined systolic and diastolic CHF (congestive heart failure) EF 40% per 10/16/21 ECHO Chronic kidney disease STAGE IV-F/U DR SALINAS Chronic obstructive pulmonary disease, unspecified Breathing stable Depression Depression Diabetes mellitus, type 2 Glucose fluctuates DVT (deep venous thrombosis) LOWER LEG 2019 GERD (gastroesophageal reflux disease) History of CVA (cerebrovascular accident) Had RUE weakness and numbness after 09/17/21 breast surgery- CT scan of head negative; unable to do MRI due to ICD Per PCP records 10/22/21= "[place] her post op RUE sx related to possible small stroke/TIA" Hypothyroidism Insomnia Ischemic cardiomyopathy Left bundle branch block Nausea and vomiting after administration of anesthetic agent severe PONV s/p Left carotid surgery 09/27/21 at [facility] NSTEMI (non-ST elevated myocardial infarction) Most recent 12/2019 (mild per patient) PAD (peripheral artery disease) S/p ROAD CUTTER and stenting of right SFA, and ROAD CUTTER of left SFA and common femoral artery PAF (paroxysmal atrial fibrillation) Pulmonary hypertension RVSP 40-45mmHg on 10/2020 ECHO Rheumatoid arthritis No medications Followed with rheum in the past- no recent issues Secondary hyperparathyroidism of renal origin SOB (shortness of breath) on exertion Spondylosis Subclavian artery stenosis Surgical History H/O colonoscopy H/O heart artery stent H/O: section History of appendectomy History of cardiac cath TOTAL 6? STENTS- 2018 and 2019 History of cataract surgery right and left History of cholecystectomy History of hysterectomy History of left-sided carotid endarterectomy (09/27/21) redo L CEA, Dr Bateman History of oophorectomy S/P angioplasty (02/03/21) ROAD CUTTER L SFA S/P carotid endarterectomy B/l 2016 S/P coronary artery stent placement (10/2017) NATY to mid LAD S/P coronary artery stent placement (10/2018) NATY prox mid LAD 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) S/P thoracentesis (03/2020) b/l d/t CHF Status post partial mastectomy of right breast (09/17/21) 09/17/21 - Done under [facility] with LMA #4. Atraumatic LMA insertion. Magnet placed secondary to pacemaker. Right Breast Partial Mastectomy with [place] Staff Reporter Localization, Right Axillary Mcdaniel Lymph Node Biopsy(Right) - Hua Acosta, Family History Daughter Coronary heart disease Cardiac stent Diabetes Mother , 83yo Diabetes Family history of hypercholesterolemia Myocardial infarction Hypertension Stroke Brother Colorectal cancer 1/2 brother Father , Accident in war Brother Diabetes 1/2 brother;Complications of DM Family/Other Myocardial infarction 1/2 sister Son Coronary heart disease Cardiac stent Hypertension Other Pacemaker Denies family history of Ovarian cancer Prostate cancer Breast cancer Social History Smoking Status: Never smoker Second Hand Exposure: Yes (spouse smoked); Hx Alcohol Use: No Hx Substance Use: No Preferred Language: Trinidadian Communication Ability: Effective Visual Impairment: No Limitations Hearing Ability: Hard of Hearing Plant Protection Guard Required: No Beliefs That Will Affect Care: None marital status: / marital status details: passed 2000 Current Living Situation: Alone current occupational status: retired 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 EOMs intact. Sclera anicteric. Face is symmetric. No perioral cyanosis. Mucous membranes moist. Neck: Supple, No JVD. - HJR Pulmonary: Normal respiratory effort. Decreased breath sounds at the bases. Faint crackles. Cardiac: Regular rate and rhythm. S1-S2 normal. Grade 1/6 systolic murmur Extremities: Trace pretibial edema bilaterally. L>R. No clubbing or cyanosis. Pulses 2+ and symmetric Abdomen: Normal bowel sounds, soft, non-tender, no abdominal mass palpated Skin: Normal skin color, turgor, and pigmentation, no rash, no skin lesions Neurological: Oriented to person, place, and time Results & Data ([facility]) Vital Signs (Past 12 Hours) Vital Signs Temp Pulse Pulse Resp BP Pulse Ox O2 Del Method 06/14/22 10:26 97.5 F L 67 18 135/66 90 Room Air 06/14/22 07:00 61 06/14/22 08:15 Room Air 06/14/22 08:07 97.7 F 69 16 175/69 H 95 Room Air 06/14/22 04:34 97.9 F 61 16 155/75 H 98 Room Air 06/13/22 23:14 97.7 F 74 18 168/66 H 92 Room Air Coding Level of Care Code 59018 Initial Inpt Care Lvl 3 Diagnoses HFrEF (heart failure with reduced ejection fraction) I50.20 Mitral regurgitation I34.0 Pulmonary hypertension I27.20 S/P coronary artery stent placement Z95.5 Ischemic cardiomyopathy I25.5 Biventricular ICD (implantable cardioverter-defibrillator) in place Z95.810 S/P TAVR (transcatheter aortic valve replacement) Z95.2 CAD (coronary artery disease) I25.10 PAD (peripheral artery disease) I73.9 Bilateral carotid artery stenosis I65.23
--- NOTE | 2022-06-14 18:14 | Hospitalist Progress Note ---
Date of Service June 14, 2022 Assessment & Plan (1) Congestive heart failure: Plan: Patient reports home dry weight as 199 lbs and now up to 206 lbs on home scale. Reports some LE edema, though very mild to me. JVD present. - Bumex 2 mg IV BID (doubling of what she was taking at home) - I&Os, daily weights - Will get 2vCXR to better look at right pleural effusion. Patient reports prior thoracentesis improved her breathing more than Bumex. Could consider padilla montano for this. On 06/11, she is tolerating the diuretic. Feeling better. On 06/12 Patient now complaining of abdominal pain. Ordered some pepcid, switched her pain medicine to PRN. May be side effect of her pain meds. will recheck her BMP. may hold diuretic in AM. 06/13 continue diuretic after holding am dose. repeat blood work consult chf clinic check labs and xray 06/14 Diuretic was not given yesterday. Patient appears wet. will resume diuretic. Chest x ray shows moderate pleural effussion. (2) PAF (paroxysmal atrial fibrillation): Plan: In paced rhythm on telemetry. - Continue amiodarone, apixaban, beta-estephania, & digoxin (3) Chronic combined systolic and diastolic CHF (congestive heart failure): Plan: As above (4) S/P coronary artery stent placement: Plan: No chest pain. Troponin not concerning. EKG hard to interpret given largely paced rhythm, but looks similar to EKG from 11/2021 and was reviewed as similar by the hospice care sales consultant. - Contine home ASA, beta-estephania (5) Hypothyroidism: Plan: - Continue home levothyroxine - TSH in the AM (6) DM II (diabetes mellitus, type II), controlled: Plan: Last A1c was 6.4%. Generally uses 70/30 with last dose this morning. Usually 15 units - 30 units depending on her blood sugar. - Sliding scale insulin - Repeat A1c Plan Conditional code - Patient does not want intubation/ventilation. Ok with 1 round of CPR. BiPap ok. No hemodialysis in the event of kidney failure. Admission and Anticipated Discharge Date Admission Date: June 10, 2022 Subjective 81 yo female reports no significant changes. Review of Systems Review of Systems: All systems reviewed & are unremarkable except as noted in HPI & below Physical Exam Constitutional: WD/WN, vitals as above Eyes: EOM intact bilaterally; no conjunctival abnormality ENMT: external ear and nose normal, oropharynx normal Neck: trachea midline, no thyromegaly normal visual inspection Respiratory: normal respiratory effort, lungs clear to auscultation no respiratory distress Cardiovascular: Rate/Rhythm: regular rate and + irregularly irregular Vessels: + JVD Extremities: + edema (Very trace) Gastrointestinal (Abdomen): Inspection/Auscultation: abdomen normal to inspection; abdomen not distended Musculoskeletal: no cyanosis or clubbing, extremities motor strength 5/5 Skin: no rashes, warm and dry Neurologic: moves all extremities and awake Psychiatric: Orientation: alert, oriented to person and cooperative Results & Data Results & Data ([facility]) Vital Signs (Past 12 Hours) Vital Signs Temp Pulse Pulse Resp BP Pulse Ox O2 Del Method 06/14/22 15:21 64 06/14/22 14:49 36.7 C 64 18 125/69 96 Room Air 06/14/22 10:26 36.4 C L 67 18 135/66 90 Room Air 06/14/22 07:00 61 06/14/22 08:15 Room Air 06/14/22 08:07 36.5 C 69 16 175/69 H 95 Room Air PG Care Time/CCT Total # of Minutes Spent Total Time Spent with Patient: Total time spent is greater than 50% in coordination of care (as documented) at patient's floor/unit and/or counseling patient: Coding Level of Care Code 42086 Subseq Hosp Care Lvl 2 Diagnoses Congestive heart failure I50.9 Heart failure chronicity: acute on chronic Heart failure type: unspecified PAF (paroxysmal atrial fibrillation) I48.0 Chronic combined systolic and diastolic CHF (congestive heart failure) I50.42 S/P coronary artery stent placement Z95.5 Hypothyroidism E03.9 Hypothyroidism type: acquired DM II (diabetes mellitus, type II), controlled E11.21; Z79.4 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: with fdc use Diabetes mellitus complication status: with kidney complications Diabetes mellitus complication detail: with nephropathy (1) Congestive heart failure Heart failure chronicity: acute on chronic Heart failure type: unspecified Qualified Code(s): I50.9 - Heart failure, unspecified (2) Hypothyroidism Hypothyroidism type: acquired Qualified Code(s): E03.9 - Hypothyroidism, unspecified (3) DM II (diabetes mellitus, type II), controlled Diabetes mellitus fdc insulin use: with local intermodal truck driver use Diabetes mellitus complication status: with kidney complications Diabetes mellitus complication detail: with nephropathy Qualified Code(s): E11.21 - Type 2 diabetes mellitus with diabetic nephropathy; Z79.4 - detention (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
[2022-06-14] MEDS: POLYETHYLENE (MIRALAX) 17 GM PACK PO SCH (20:48)
[2022-06-14] MEDS: AMIODARONE 200 MG TAB PO SCH (20:48)
[2022-06-14] MEDS: carvediloL 6.25 MG TAB PO SCH (20:52)
[2022-06-15] MEDS: LEVOTHYROXINE SODIUM 75 MCG TABLET PO SCH (05:39)
[2022-06-15 07:04] LABS: Hematocrit (blood only) 37.8 % (34.1-44.9); Hemoglobin 12.2 g/dl (12.0-16.0); Mean Corpuscular Hemoglobin 33.3 pg (25.0-34.0); Mean Corpuscular Hgb Conc 32.3 g/dL (32.0-36.0); Mean Corpuscular Volume 103.3 fL (80.0-100.0); Mean Platelet Volume 10.9 fL (9.4-12.3); Platelet Count 201 K/uL (130-400); RDW Coefficient of Variation 13.2 % (11.5-14.5); RDW Standard Deviation 49.8 fL (36.4-46.3); Red Blood Count 3.66 M/uL (3.93-5.22); White Blood Count 7.97 K/ul (4.8-10.8)
[2022-06-15 07:27] LABS: BUN Creatinine Ratio 18.1 (10-20); Creatinine Clr Calc Pharmacy 23.2 ml/min; Est GFR (African American) 25.7 ml/min; Est GFR (Non-African American) 22.1 ml/min; Potassium 4.3 mmol/L (3.5-5.1)
[2022-06-15] MEDS: ANASTROZOLE 1 MG TAB PO SCH (08:02)
[2022-06-15] MEDS: RANOLAZINE 500 MG ER TAB PO SCH ×2 (08:02→21:24)
[2022-06-15] MEDS: SERTRALINE HCL 50 MG TABLET PO SCH (08:02)
[2022-06-15] MEDS: TICAGRELOR 90 MG TAB PO SCH ×2 (08:02→21:25)
[2022-06-15] MEDS: APIXABAN 2.5 MG TAB PO SCH (08:02)
[2022-06-15] MEDS: PANTOprazole 40 MG TAB PO SCH ×2 (08:02→21:24)
[2022-06-15] MEDS: BUMETANIDE 2 MG in SYRINGE 0 ML IV SCH ×2 (08:02→17:21)
[2022-06-15] MEDS: LANTUS PER UNIT CHARGE SQ SCH (08:02)
[2022-06-15] MEDS: INSULIN ASPART PER UNIT SC SCH ×4 (08:02→21:25)
[2022-06-15] MEDS: carvediloL 3.125 MG TAB PO SCH (10:00)
[2022-06-15] MEDS: DIGOXIN 0.125 MG TAB PO SCH (17:21)
[2022-06-15] MEDS: carvediloL 6.25 MG TAB PO SCH (21:22)
[2022-06-15] MEDS: AMIODARONE 200 MG TAB PO SCH (21:24)
[2022-06-15] MEDS: POLYETHYLENE (MIRALAX) 17 GM PACK PO SCH (21:32)
--- NOTE | 2022-06-15 23:22 | Hospitalist Progress Note ---
Date of Service June 15, 2022 Assessment & Plan (1) Congestive heart failure: Plan: Patient reports home dry weight as 199 lbs and now up to 206 lbs on home scale. Reports some LE edema, though very mild to me. JVD present. - Bumex 2 mg IV BID (doubling of what she was taking at home) - I&Os, daily weights - Will get 2vCXR to better look at right pleural effusion. Patient reports prior thoracentesis improved her breathing more than Bumex. Could consider padilla montano for this. On 06/11, she is tolerating the diuretic. Feeling better. On 06/12 Patient now complaining of abdominal pain. Ordered some pepcid, switched her pain medicine to PRN. May be side effect of her pain meds. will recheck her BMP. may hold diuretic in AM. 06/13 continue diuretic after holding am dose. repeat blood work consult chf clinic check labs and xray 06/14 Diuretic was not given yesterday. Patient appears wet. will resume diuretic. Chest x ray shows moderate pleural effussion. 06/15 negative 4 liters continue diuretic creatinine is stable possible discharge vs thoracocenthesis will obtain labs and x-ray eliquis held for possible thoracocenthesis tomorrow (2) PAF (paroxysmal atrial fibrillation): Plan: In paced rhythm on telemetry. - Continue amiodarone, apixaban, beta-estephania, & digoxin (3) Chronic combined systolic and diastolic CHF (congestive heart failure): Plan: As above (4) S/P coronary artery stent placement: Plan: No chest pain. Troponin not concerning. EKG hard to interpret given largely paced rhythm, but looks similar to EKG from 11/2021 and was reviewed as similar by the soil chemist. - Contine home ASA, beta-estephania (5) Hypothyroidism: Plan: - Continue home levothyroxine - TSH in the AM (6) DM II (diabetes mellitus, type II), controlled: Plan: Last A1c was 6.4%. Generally uses 70/30 with last dose this morning. Usually 15 units - 30 units depending on her blood sugar. - Sliding scale insulin - Repeat A1c Plan Conditional code - Patient does not want intubation/ventilation. Ok with 1 round of CPR. BiPap ok. No hemodialysis in the event of kidney failure. Admission and Anticipated Discharge Date Admission Date: June 10, 2022 Subjective 81 yo female reports that she is feeling better. She is considering possible discharge, if she improves further. Review of Systems Review of Systems: All systems reviewed & are unremarkable except as noted in HPI & below Physical Exam Constitutional: WD/WN, vitals as above Eyes: EOM intact bilaterally; no conjunctival abnormality ENMT: external ear and nose normal, oropharynx normal Neck: trachea midline, no thyromegaly normal visual inspection Respiratory: normal respiratory effort, lungs clear to auscultation no respiratory distress Cardiovascular: Rate/Rhythm: regular rate and + irregularly irregular Vessels: + JVD Extremities: + edema (Very trace) Gastrointestinal (Abdomen): Inspection/Auscultation: abdomen normal to inspection; abdomen not distended Musculoskeletal: no cyanosis or clubbing, extremities motor strength 5/5 Skin: no rashes, warm and dry Neurologic: moves all extremities and awake Psychiatric: Orientation: alert, oriented to person and cooperative Results & Data Results & Data ([facility]) Vital Signs (Past 12 Hours) Vital Signs Temp Pulse Pulse Resp BP Pulse Ox O2 Del Method 06/15/22 21:36 Room Air 06/15/22 21:17 36.7 C 74 18 155/81 H 94 Room Air 06/15/22 19:20 36.7 C 69 16 137/79 90 Room Air 06/15/22 17:21 74 06/15/22 15:14 75 06/15/22 15:07 36.5 C 62 20 146/77 H 91 Room Air PG Care Time/CCT Total # of Minutes Spent Total Time Spent with Patient: Total time spent is greater than 50% in coordination of care (as documented) at patient's floor/unit and/or counseling patient: Coding Level of Care Code 50463 Subseq Hosp Care Lvl 2 Diagnoses Congestive heart failure I50.9 Heart failure chronicity: acute on chronic Heart failure type: unspecified PAF (paroxysmal atrial fibrillation) I48.0 Chronic combined systolic and diastolic CHF (congestive heart failure) I50.42 S/P coronary artery stent placement Z95.5 Hypothyroidism E03.9 Hypothyroidism type: acquired DM II (diabetes mellitus, type II), controlled E11.21; Z79.4 Diabetes mellitus fdc insulin use: with tub chucker use Diabetes mellitus complication status: with kidney complications Diabetes mellitus complication detail: with nephropathy Time Spent (min) 25 (1) Congestive heart failure Heart failure chronicity: acute on chronic Heart failure type: unspecified Qualified Code(s): I50.9 - Heart failure, unspecified (2) Hypothyroidism Hypothyroidism type: acquired Qualified Code(s): E03.9 - Hypothyroidism, unspecified (3) DM II (diabetes mellitus, type II), controlled 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
[2022-06-15] MEDS: ACETAMINOPHEN 325 MG TAB PO PRN (23:29)
[2022-06-16] MEDS: LEVOTHYROXINE SODIUM 75 MCG TABLET PO SCH (05:47)
[2022-06-16 07:19] LABS: Hematocrit (blood only) 38.2 % (34.1-44.9); Hemoglobin 12.3 g/dl (12.0-16.0); Mean Corpuscular Hemoglobin 33.1 pg (25.0-34.0); Mean Corpuscular Hgb Conc 32.2 g/dL (32.0-36.0); Mean Corpuscular Volume 102.7 fL (80.0-100.0); Mean Platelet Volume 10.9 fL (9.4-12.3); Platelet Count 203 K/uL (130-400); RDW Coefficient of Variation 13.2 % (11.5-14.5); RDW Standard Deviation 49.8 fL (36.4-46.3); Red Blood Count 3.72 M/uL (3.93-5.22); White Blood Count 7.94 K/ul (4.8-10.8)
[2022-06-16 07:41] LABS: BUN Creatinine Ratio 20.1 (10-20); Calcium 8.7 mg/dl (8.5-10.1); Est GFR (African American) 29.1 ml/min; Est GFR (Non-African American) 25.1 ml/min; Potassium 3.9 mmol/L (3.5-5.1)
[2022-06-16] MEDS: INSULIN ASPART PER UNIT SC SCH ×3 (08:48→16:58)
[2022-06-16] MEDS: LANTUS PER UNIT CHARGE SQ SCH (08:48)
[2022-06-16] MEDS: PANTOprazole 40 MG TAB PO SCH (08:49)
[2022-06-16] MEDS: carvediloL 3.125 MG TAB PO SCH (08:49)
[2022-06-16] MEDS: CALCITRIOL 0.25 MCG CAPSULE PO SCH (08:49)
[2022-06-16] MEDS: TICAGRELOR 90 MG TAB PO SCH (08:49)
[2022-06-16] MEDS: SERTRALINE HCL 50 MG TABLET PO SCH (08:49)
[2022-06-16] MEDS: ANASTROZOLE 1 MG TAB PO SCH (08:49)
[2022-06-16] MEDS: RANOLAZINE 500 MG ER TAB PO SCH (08:49)
[2022-06-16] MEDS: BUMETANIDE 2 MG in SYRINGE 0 ML IV SCH ×2 (08:50→16:59)
--- NOTE | 2022-06-16 12:14 | XRay Report ---
TWO VIEW CHEST CLINICAL HISTORY: Pleural effusions. Congestive heart failure. FINDINGS: PA and lateral chest radiographs are compared to study dated 06/13/2022. Correlation is made with chest CT dated 10/17/2018. A cardiac ICD is unchanged in position and partially obscures left upp er chest. There is evidence of previous cardiac valve surgery. The heart is enlarged noting atheroscl erotic calcification of the thoracic aorta. Mild pulmonary vascular congestion persists. There are sm all pleural effusions, right larger left with dependent consolidation. There is no pneumothorax. The skeletal structures are osteopenic. The bony thorax appears intact. IMPRESSION: 1. Cardiomegaly and AICD with mild persistent pulmonary vascular congestion. 2. Right larger than left pleural effusions with dependent consolidation. ACT 112: Negative or not required by law. Electronically signed by: Marcus East M.D. 06/16/2022 12:12 PM
--- NOTE | 2022-06-16 12:36 | Discharge Summary ---
Date of Service June 16, 2022 Admission HPI Per Admitting Provider 81yo F w/ hx of systolic & diastolic heart failure who presents with CHF exacerbation. For last several days has been having more LE swelling and predominantly orthopnea, similar to prior episodes. Has tried to double her home Bumex, without improvement. Last night, was unable to sleep as every time she lay down, she became short of breath. Ended up sleeping in the recliner. Decided to come to the ER. Principal Diagnosis 1. Acute on chronic HFrEF 2. Discharge Exam GENERAL: 81 yo Well-developed, well-nourished elderly WF. NAD. LUNGS: No conversational dyspnea. Diminished in bases b/l. No w/r/r. CARDIOVASCULAR: Regular rate and rhythm. ABDOMEN: Soft, non-tender and non-distended. BS normoactive x 4 quad. EXTREMITIES: No edema. Non-tender. Peripheral pulses +2/4. NEUROLOGIC: A&O x3. Nonfocal PSYCHIATRIC: Cooperative. Appropriate mood and affect. SKIN: Warm, dry, intact. No rashes or lesions. Discharge Data Allergies Allergy/AdvReac Type Severity Reaction Status Date / Time adhesive Allergy Intermediate REDNESS Verified 06/10/22 17:47 AND IRRITATION FROM PAIN PATCH, TAPE latex Allergy Intermediate ALLERGIC Verified 06/10/22 17:47 TO LATEX TAPE/RASH/ITCHING morphine Allergy Intermediate swelling Verified 06/10/22 17:47 nausea vomiting olmesartan Allergy Unknown UNKNOWN Verified 06/10/22 17:47 benzonatate AdvReac Intermediate confusion Verified 06/10/22 17:47 [From Tesmin Brennan] dulaglutide [From Trulicity] AdvReac Intermediate AFFECTS Verified 06/10/22 17:47 MUSCLES exenatide [From Byetta] AdvReac Intermediate Diarrhea Verified 06/10/22 17:47 ezetimibe AdvReac Intermediate MUSCLE Verified 06/10/22 17:47 ACHES glipizide AdvReac Intermediate Diarrhea Verified 06/10/22 17:47 glyburide AdvReac Intermediate Diarrhea Verified 06/10/22 17:47 lisinopril AdvReac Intermediate LIGHTHEADED Verified 06/10/22 17:47 AND DIZZY losartan AdvReac Intermediate dizziness Verified 06/10/22 17:47 metformin AdvReac Intermediate Diarrhea Verified 06/10/22 17:47 pioglitazone AdvReac Intermediate DIARRHEA Verified 06/10/22 17:47 NAUSEA sitagliptin [From Januvia] AdvReac Intermediate Diarrhea Verified 06/10/22 17:47 Kvckjnz-PWF-YyX Reductase AdvReac Intermediate myalgias Verified 06/10/22 17:47 Inhibitor and [Sfezvrt-Pll-Ryh Reductase weakness Inhibitor] aspirin AdvReac Mild GI SYMPTOMS Verified 06/10/22 17:47 Consultations 06/10/22 14:59 ED Decision to Admit Stat 06/13/22 17:25 [facility] [place] Ref[place] Routine Ordered Studies Chest X-Ray 06/10/22 13:13 SINGLE VIEW CHEST CLINICAL HISTORY: Dyspnea. Weakness. FINDINGS: An AP, portable, upright chest radiograph is compared to study dated 11/24/2021. Correlation is made with chest CT dated 10/17/2018. A 3-lead cardiac AICD is unchanged in position and partially obscures the left mid chest. There is evidence of previous cardiac valve surgery. The heart is enlarged noting atherosclerotic calcification of the thoracic aorta. There is mild pulmonary vascular congestion. There are right larger than left pleural effusions with dependent consolidation. No pneumothorax is seen. The skeletal structures are osteopenic. The bony thorax is grossly intact. IMPRESSION: 1. Cardiomegaly and AICD with evidence of mild congestive failure. 2. Right larger than left pleural effusions with dependent consolidation. ACT 112: Negative or not required by law. Electronically signed by: Marcus East M.D. 06/10/2022 2:23 PM Chest X-Ray 06/10/22 16:10 XR chest 2V PA/lateral CLINICAL HISTORY: Better review pleural effusion COMPARISON STUDY: Chest radiograph June 10, 2022 at 2:11 PM. FINDINGS: Left subclavian biventricular pacer/AICD is in place. There is a prosthetic aortic valve. Cardiomegaly is noted. No pneumothorax. Moderate right and trace left pleural effusions are present. Mild interstitial pulmonary edema is noted. Cardiomediastinal silhouette is stable. IMPRESSION: 1. Moderate right and trace left pleural effusions. 2. Mild interstitial pulmonary edema. ACT 112: Negative or not required by law. Electronically signed by: Cali Jacobo M.D. 06/10/2022 5:31 PM Chest X-Ray 06/13/22 17:26 XR chest 2V PA/lateral CLINICAL HISTORY: Congestive heart failure. COMPARISON STUDY: Chest radiograph June 10, 2022. FINDINGS: Left subclavian biventricular pacer/AICD and prosthetic aortic valve are noted. Cardiomegaly is unchanged. There is no pneumothorax. Moderate right and trace left pleural effusions are similar to prior exam. Mild interstitial pulmonary edema persists. No consolidation is identified to suggest pneumonia. Appearance of the chest is unchanged. There are cholecystectomy clips. IMPRESSION: No change in appearance of the chest. Mild interstitial pulmonary edema with moderate right and trace left pleural effusions. ACT 112: Negative or not required by law. Electronically signed by: Cali Jacobo M.D. 06/13/2022 5:51 PM Chest X-Ray 06/16/22 07:00 TWO VIEW CHEST CLINICAL HISTORY: Pleural effusions. Congestive heart failure. FINDINGS: PA and lateral chest radiographs are compared to study dated 06/13/2022. Correlation is made with chest CT dated 10/17/2018. A cardiac ICD is unchanged in position and partially obscures left upper chest. There is evidence of previous cardiac valve surgery. The heart is enlarged noting atherosclerotic calcification of the thoracic aorta. Mild pulmonary vascular congestion persists. There are small pleural effusions, right larger left with dependent consolidation. There is no pneumothorax. The skeletal structures are osteopenic. The bony thorax appears intact. IMPRESSION: 1. Cardiomegaly and AICD with mild persistent pulmonary vascular congestion. 2. Right larger than left pleural effusions with dependent consolidation. ACT 112: Negative or not required by law. Electronically signed by: Marcus East M.D. 06/16/2022 12:12 PM Hospital Course (1) Congestive heart failure: Patient reports home dry weight as 199 lbs and now up to 206 lbs on home scale. Reports some LE edema, though very mild to me. JVD present. - Bumex 2 mg IV BID (routinely takes 1mg BID at home) - I&Os, daily weights On 06/11, she is tolerating the diuretic. Feeling better. On 06/12 Patient now complaining of abdominal pain. Ordered some pepcid, switched her pain medicine to PRN. May be side effect of her pain meds. will recheck her BMP. may hold diuretic in AM. 06/13 continue diuretic after holding am dose. repeat blood work consult chf clinic check labs and xray 06/14 Diuretic was not given yesterday. Patient appears wet. will resume diuretic. Chest x ray shows moderate pleural effussion. 06/15 negative 4 liters continue diuretic creatinine stable/at baseline - pt doing well today, no GOMEZ, on room air, xray is read as stable but does appear improved to me- less PVC and I do believe that the RLL effusion is slightly smaller. - plan will be to d/c home on regular dose of Bumex which was 1mg BID. Keep salt intake to a minimum and overall fluid intake <2L per day. - Will follow up with Latrice Mcmanus PA-C in HF clinic next week (2) PAF (paroxysmal atrial fibrillation): In paced rhythm on telemetry. - Continue amiodarone, apixaban, beta-estephania, & digoxin (3) Chronic combined systolic and diastolic CHF (congestive heart failure): As above (4) S/P coronary artery stent placement: No chest pain. Troponin not concerning. EKG hard to interpret given largely paced rhythm, but looks similar to EKG from 11/2021 and was reviewed as similar by the family preservation caseworker. - Contine home ASA, beta-estephania (5) Hypothyroidism: - Continue home levothyroxine - TSH in the AM (6) DM II (diabetes mellitus, type II), controlled: Last A1c was 6.4%. Generally uses 70/30 with last dose this morning. Usually 15 units - 30 units depending on her blood sugar. - Sliding scale insulin - Repeat A1c Plan patient is medically and hemodynamically stable for discharge home. she declines having home health. she will plan to f/u in HF clinic next week as well as with her pcp. Plan has been d/w Dr. Brown who has also seen and evaluated this patient and agrees with aforementioned. Total Time Total Time Spent Total Time Spent (In Minutes): >30 minutes Discharge Plan Discharge Items Patient Disposition: Home - Self-Care Reason For Visit: CHF EXACERBATION Discharge Diagnosis: fluid in lungs Activity: Resume your previous activity Non-emergency contact: Primary Care Provider and Specialist Call non-emergency contact if: you have any medication questions and your symptoms worsen Follow-up/Referrals: Ebony Alvarenga DO [Primary Care Provider] - 06/27/22 11:00 am Latrice Mcmanus PA-C [Physician Rubber Goods Cutter Finisher] - 06/23/22 10:30 am Diet: Carb Consistent or DM2 Addtl Attending Provider Instructions: You were hospitalized due to fluid accumulation in your lungs. You were given medication through your IV called diuretics (which help you pee off excess fluid). Instead of receiving your Bumex in pill for, you were given it in IV form. You responded well to treatment and are now able to resume your home dose of Bumex 1mg, one tablet twice a day. Remember to double up your dose if you have a weight gain over 3lbs. Remember to only drink when you are thirsty and keep total fluid intake to less than 2 liters per day. Also, remember to keep your salt intake to a minimum. All of your medications can be resumed as outlined below. No changes have been made to your medications during your hospital stay. You will be arranged a follow up appointment with Latrice Mcmanus PA-C in the heart failure clinic for next week. It is also recommended that you follow up with your family doctor within 1 week of discharge. If you have any questions following your discharge, call the nonemergency number listed on your paperwork. In the event of a medical emergency, call 911. Pending Studies at Discharge: No Stand-Alone Forms: My [facility] [employer], Work/School Release, Smoking Cessation Medications and DC Order Prescriptions: Continued cholecalciferol (vitamin D3) 25 mcg (1,000 unit) capsule 1,000 unit PO QAM trazodone 50 mg tablet 50 mg PO HS PRN (Reason: insomnia) Qty: 90 1RF amiodarone [Pacerone] 200 mg tablet 200 mg PO QPM Qty: 90 3RF carvedilol 3.125 mg tablet 3.125 mg PO QAM Qty: 90 3RF Rx Instructions: must administer with a meal/food Brilinta 90 mg tablet 90 mg PO BID Qty: 180 3RF (DME) insulin syringe-needle U-100 [BD SafetyGlide Insulin Syringe] 0.3 mL 31 gauge x 5/16" syringe See Rx Instructions .Route Qty: 100 3RF Rx Instructions: test three times daily ranolazine [Ranexa] 500 mg tablet extended release 12 hr 500 mg PO BID Qty: 180 3RF levothyroxine 75 mcg tablet 75 mcg PO QAM Qty: 90 1RF bumetanide 1 mg tablet 1 mg PO BID Qty: 180 3RF Rx Instructions: May increase to 2 mg BID for edema, swelling, weight gain. Eliquis 2.5 mg tablet 2.5 mg PO BID Qty: 60 11RF digoxin 125 mcg (0.125 mg) tablet 125 mcg PO 3XWK Qty: 36 1RF Rx Instructions: Monday, Monday, Monday insulin asp prt-insulin aspart [Novolog Mix 70-30 U-100 Insuln] 100 unit/mL (70-30) solution 15 - 30 unit SUBCUT AMPM Qty: 30 1RF Rx Instructions: Per home sliding scale calcitriol [Rocaltrol] 0.25 mcg capsule 0.25 mcg PO 3XWK Qty: 12 1RF Rx Instructions: mono mccoy thur ondansetron HCl 4 mg tablet 4 mg PO Q8H PRN (Reason: nausea and vomiting) Qty: 30 0RF pantoprazole [Protonix] 40 mg tablet,delayed release (DR/EC) 40 mg PO BID Qty: 180 1RF magnesium oxide 400 mg magnesium capsule 400 mg PO QPM Qty: 90 0RF anastrozole [Arimidex] 1 mg tablet 1 mg PO QAM (DME) Xeroform See Rx Instructions .Route .MEDSUPPLY Qty: 30 5RF Rx Instructions: Apply to open area daily; (DME) hydrofera blue Ready Foam Dressing See Rx Instructions .Route .MEDSUPPLY Qty: 30 0RF Rx Instructions: As directed triamcinolone acetonide 0.5 % cream 1 applic topical BID PRN (Reason: skin irritation) Qty: 60 1RF Rx Instructions: apply to LLE hydrocodone-acetaminophen 5-325 mg tablet 1 tab PO Q8H sertraline 25 mg tablet 25 mg PO DAILY Qty: 30 2RF miconazole nitrate 2 % cream 1 applic topical DAILY Qty: 42.5 5RF carvedilol [Coreg] 6.25 mg tablet 6.25 mg PO HS multivitamin [Multiple Vitamins] tablet 1 tab PO QAM vitamin E 400 unit capsule 400 unit PO QAM polyethylene glycol 3350 [Miralax] 17 gram/dose Powder 17 g PO HS garlic 1,000 mg capsule 1,000 mg PO QPM omega-3 fatty acids 1,000 mg Capsule 1,000 mg PO QPM potassium chloride 10 mEq Capsule, Extended Release 0 meq PO DAILY ferrous sulfate [iron] 325 mg (65 mg iron) Tablet 325 mg PO DAILY fluticasone propionate [Flonase Allergy Relief] 50 mcg/actuation spray,suspension 2 spray intranasal DAILY PRN (Reason: Nasal Congestion) Rx Instructions: administer into each nostril Discharge Orders: Discharge Order (Routine); Ordered 06/16/22 Ordered By: Krysta Garnett Admission Data Admit Date/Time: 06/10/22 15:59 Attending Provider: Yvan Brown Admit Provider: Gabe Guzman Primary Care Provider: Ebony Alvarenga Other Providers: Gabe Guzman ; Latrice Mcmanus Other Interventions: Discharge Summary Assessment (RN) Last Done: 06/16/22 16:18 Supervising Physician Co-Signing Physician Notes I personally examined the patient and verified all [place] points of history and exam, discussed case, and agree with decision making with Lianet Garnett PAC Feeling better feeling up to going home. Notes that she was much more lax with sodium last few months, and realizes that is probably what led to her CHF exacerbation. Vitals noted, breathing unlabored, no conversational dyspnea, on room air. CHF exacerbationlikely due to sodium ingestionnow improved. Stable for home. Otherwise as above Coding Level of Care Code D/C DAY MANAGEMENT >30 MINS Diagnoses Congestive heart failure I50.9 Heart failure chronicity: acute on chronic Heart failure type: unspecified PAF (paroxysmal atrial fibrillation) I48.0 Chronic combined systolic and diastolic CHF (congestive heart failure) I50.42 S/P coronary artery stent placement Z95.5 Hypothyroidism E03.9 Hypothyroidism type: acquired DM II (diabetes mellitus, type II), controlled E11.21; Z79.4 Diabetes mellitus complication detail: with nephropathy Diabetes mellitus complication status: with kidney complications Diabetes mellitus penitentiary insulin use: with meterman use
--- NOTE | 2022-06-16 14:52 | Heart Failure Progress Note ---
Date of Service June 16, 2022 Assessment & Plan (1) HFrEF (heart failure with reduced ejection fraction): (2) Mitral regurgitation: (3) Pulmonary hypertension: (4) S/P coronary artery stent placement: (5) Ischemic cardiomyopathy: (6) Biventricular ICD (implantable cardioverter-defibrillator) in place: (7) S/P TAVR (transcatheter aortic valve replacement): (8) CAD (coronary artery disease): (9) PAD (peripheral artery disease): (10) Bilateral carotid artery stenosis: Plan 1. Acute on chronic HFrEF: She is near euvolemic on exam. Symptoms improving. Her weight is at baseline. Kidney function is stable. Would discharge home on her home regimen of Bumex 1 mg BID. She does have PRN parameters that she is familiar with. Low threshold to increase to 2 mg BID as needed. Suspect her current dry weight is lower than her previous goal. Will base that off her home weights tomorrow on her scale. Continue to monitor kidney function and electrolytes. She should continue daily standing weights. Dry weight 195- 199 lb.? Low-sodium diet was recommended, less than 2000 mg. 2. Ischemic Cardiomyopathy: LV ejection fraction 30-35%. She has documented intolerance to HERMELINDO/ARBs due to chronic kidney disease. Continue Carvedilol. She had symptomatic hypotension with higher doses in the past. Losartan has been discontinued due to orthostatic symptoms. She still continues to have intermittent lightheadedness but improved from previous.GFR < 30 so would advise against SGLT2i at this time. Could consider Spironolactone as outpatient, especially if requiring more PRN diuretics. Continue medical therapy. She was upgraded to a biventricular device. 3. Hypokalemia: Continue monitoring and current medical therapy. 4. Paroxysmal Atrial fibrillation/flutter: Continue rate control with Amiodarone, Digoxin, and Carvedilol. Continue Eliquis for stroke risk reduction. She was cardioverted during her hospitalization. Patient is asymptomatic. 5. Hypertension: Well controlled. Continue current regimen. 7. Aortic stenosis- s/p TAVR 8. CAD: No current anginal symptoms. Continue Brillinta, beta estephania, and Eliquis per Dr. Bateman. Patient self decreased her Ranexa 9. Pleural effusion: Chronic. Not requiring O2 at this time. Had thoracentesis in March 2020 with clinical improvement. Pulm recommended 1 year follow up with PFTs at that time. Would continue to optimize her diuretics as above and re- assess her clinical response. Would recommend outpatient pulm follow up as previously recommended. 10. Mitral regurgitation: Moderate to severe. May be contributing factor. Also in the setting of volume overload. Would consider repeat echo once optimized to reassess. 11. Goals of care: She does have a living will and the details have been communicated this with her family. Her children are her POAs. She wants to be able to complete her ADLs and run errands. Disposition: Follow-up with the heart failure program within 7 days of discharge. Admission and Anticipated Discharge Date Admission Date: June 10, 2022 Subjective Patient resting comfortably in bed this am. She reports feeling significantly better today. She is having less dyspnea when ambulating the room. CXR today with mild persistent pulmonary congestion and right > left pleural effusions. She denies orthopnea or PND. No lower extremity edema. She is responding well to diuretics. She's net negative 5 L. Weight was previously at baseline at 199 but is up to 204 today despite documented diuresis and clinical improvement? Physical Exam Physical Exam: Constitutional: Alert, oriented, in no acute distress HEENT: Head is atraumatic and normocephalic. EOMs intact. Sclera anicteric. Face is symmetric. No perioral cyanosis. Mucous membranes moist. Neck: Supple, No JVD. - HJR Pulmonary: Normal respiratory effort. Decreased breath sounds at the right base. Cardiac: Regular rate and rhythm. S1-S2 normal. Grade 1/6 systolic murmur Extremities: Trace pretibial edema bilaterally. L>R. No clubbing or cyanosis. Pulses 2+ and symmetric Abdomen: Normal bowel sounds, soft, non-tender, no abdominal mass palpated Skin: Normal skin color, turgor, and pigmentation, no rash, no skin lesions Neurological: Oriented to person, place, and time Results & Data ([facility]) Vital Signs (Past 12 Hours) Vital Signs Temp Pulse Pulse Resp BP Pulse Ox O2 Del Method 06/16/22 11:21 97.5 F L 63 18 148/76 H 93 Room Air 06/16/22 08:50 Room Air 06/16/22 08:21 97.7 F 62 18 148/72 H 91 Room Air 06/16/22 07:04 60 06/16/22 03:02 97.9 F 65 16 124/55 L 93 Room Air PG Care Time/CCT Total # of Minutes Spent Total Time Spent with Patient: Total time spent is greater than 50% in coordination of care (as documented) at patient's floor/unit and/or counseling patient: Coding Level of Care Code 21515 Subseq Hosp Care Lvl 3 Diagnoses HFrEF (heart failure with reduced ejection fraction) I50.20 Mitral regurgitation I34.0 Pulmonary hypertension I27.20 S/P coronary artery stent placement Z95.5 Ischemic cardiomyopathy I25.5 Biventricular ICD (implantable cardioverter-defibrillator) in place Z95.810 S/P TAVR (transcatheter aortic valve replacement) Z95.2 CAD (coronary artery disease) I25.10 PAD (peripheral artery disease) I73.9 Bilateral carotid artery stenosis I65.23
== END 2022-06-16 18:05 | disposition home or self-care (01) | DRG 291 ==
LOC: ED 12:51 → EDINP 15:59 → SUATTDRO 15:59 → 2W 18:37

== ENCOUNTER 2022-07-04 10:52 | Inpatient (IN) ==
--- NOTE | 2022-07-04 11:36 | Emergency Department Note ---
Impression & Plan Acute congestive heart failure, Pleural effusion, Elevated troponin, Left-sided chest pain ED Provider Note BeganName: ERIC ROLDAN Age: 81 Sex: F Arrives Via: Ambulance Informant: Patient, Daughter ED Provider: Darek Canales MD Chief Complaint: Shortness of breath Impression: As per impressions above Medical Decision Makin-year-old female with complex past medical history including paroxysmal A. fib, CHF and recurrent pleural effusions amongst other medical issues. She had a cardiac ablation on , followed by right pleural drainage on Monday and notes rapidly worsening shortness of breath chest pains the following day. Last 48 hours she has been having left-sided chest pain rating down her elbow along with severe shortness of breath with any exertion. Even at rest she feels quite short of breath. Feels much better on nasal cannula oxygen here. Declining any pain medications. Allergic to aspirin and nitro thus these were not given. Chest x-ray with some layering pleural effusions and developing pulmonary edema. EKG is unremarkable compared to previous and is paced. Labs with moderately elevated troponin now given her recent ablation this is not too surprising. No clear evidence of infectious etiology. I think it is unlikely this is dissection I want a give her dye for IV contrast. Discussed with hospitalist and they will manage [facility], imaging and further monitoring. They agree with hospitalization at this time. Given history and possible need for further drainage of pleural effusions I do not think that there is clear evidence to start anticoagulant at this time until further troponins and work-up. Prior Medical Record and Triage/Nursing Notes reviewed by Me Additional history obtained from chart Differentials:Cardiac ischemia, aortic dissection, pulmonary embolism, pneumothorax, pneumonia, pericarditis, myocarditis, esophageal rupture, GERD, cholecystitis, pancreatitis, musculoskeletal, as well as other pathologies. Vital Signs: reviewed and remarkable for no significant abnormalities Interventions: Patient declines any pain medications and states allergic to aspirin/nitro Labs:Reviewed and remarkable for elevated troponin baseline elevated creatinine Imagin view chest x-ray bilateral pulmonary edema with developing bilateral pleural effusions increased from previous EKG: Ventricular paced at 86 bpm with a QTC of 531. Compared to EKG from June 30, 2022 no significant change. No evidence of ectopy nor ischemia at this time. Consults:Dr John ERICKSON Hospitalist Plan: Disposition:Hospitalization. Condition: Good History of Present Illness: 81-year-old female arrives for evaluation of chest pain. Patient notes she had an ablation done on followed by pleural effusion drain of the right lung on Monday. Having worsening chest pains and shortness of breath. Initially chest pain was left-sided radiated down her left shoulder. It was then associated with increasing shortness of breath. She states she just cannot catch her breath. She was placed on 4 L nasal cannula by EMS and feels much better. She does note some mild chest pain currently to her left elbow. Denies any headache, neck pain, neurologic deficits. She has had no recent falls, palpitations, nausea, vomiting, bleeding, leg swelling, calf pain or other concerning signs or symptoms. No medications prior to arrival. No ASA nor Nitro as allergic. ROS: See above HPI for pertinent positives & negatives. A total of 10 systems reviewed and were otherwise negative. Past Medical History:See Below Past Surgical History:See Below Family History:See Below Social History:See Below Home Medications:See Below Allergies:See Below Vitals:Blood Pressure: 166/109, Pulse 80, RR 24, T 36.5C, O2 100% on NC O2 Physical Exam: GENERAL: Patient is tired appearing and in minimal distress. EYES: No scleral icterus, unremarkable pupils. ENT: Mucous membranes moist, no nasal congestion. NECK: No masses appreciated, nomeningismus, trachea is midline. RESPIRATORY: No dyspnea. Clear to auscultation and equal bilaterally. No wheeze, no rhonchi. CARDIOVASCULAR: Regular rate and rhythm.No murmurs, rubs, gallops appreciated. GASTROINTESTINAL: Abdomen soft, non-tender, no peritonitis.Bowel sounds positive.No masses appreciated. BACK: No midline tenderness, no CVA tenderness EXTREMITIES: Normal motion all extremities, no cyanosis, no edema. NEUROLOGIC: Alert and oriented, no acute motor or sensory deficits, no focal weakness, cranial nerves grossly intact. SKIN: No rash, no jaundice, no diaphoresis. PSYCH: Appropriate GCS: 15 ED Course: Times/Reassessments: Stable states that symptoms have resolved after being on oxygen she is in no distress and she is requesting no pain medications at this time. She is agreeable to hospitalization for further management. Darek Canales MD Past Med/Surg History Medical History (Updated 07/04/22 @ 14:06 by Darek Canales MD) Anemia due to chronic kidney disease Antiplatelet or antithrombotic long-term use Aortic stenosis, severe S/p TAVR 10/2019 Bilateral carotid artery stenosis H/o bilateral CEAs in 2016 Per 07/2021 vascular note- carotid ultrasound from office visit showed patent right CEA with velocities suggesting 50-59% stenosis restenosis Patent left CEA with velocities suggesting 99% restenosis - had re-do of left CEA 09/27/21 Biventricular ICD (implantable cardioverter-defibrillator) in place (04/30/20) [employer] implanted 04/30/2020. Capped right ventricular pacing lead Last check 09/2021 Breast cancer, right Right breast mastectomy 09/17/[address] [facility] CAD (coronary artery disease) F/U DR CUEVA S/p NATY x 1 to Cx in 2018; NATY to ostial LM 01/10/20 Chronic combined systolic and diastolic CHF (congestive heart failure) EF 40% per 10/16/21 ECHO Chronic kidney disease STAGE IV-F/U DR SALINAS Chronic obstructive pulmonary disease, unspecified Breathing stable Depression Diabetes mellitus, type 2 Glucose fluctuates DVT (deep venous thrombosis) LOWER LEG 2019 GERD (gastroesophageal reflux disease) History of CVA (cerebrovascular accident) Had RUE weakness and numbness after 09/17/21 breast surgery- CT scan of head negative; unable to do MRI due to ICD Per PCP records 10/22/21= "[place] her post op RUE sx related to possible small stroke/TIA" Hypothyroidism Insomnia Ischemic cardiomyopathy Left bundle branch block Nausea and vomiting after administration of anesthetic agent severe PONV s/p Left carotid surgery 09/27/[address] [facility] NSTEMI (non-ST elevated myocardial infarction) Most recent 12/2019 (mild per patient) PAD (peripheral artery disease) S/p CLASSIFIED AD CLERK and stenting of right SFA, and CLASSIFIED AD CLERK of left SFA and common femoral artery PAF (paroxysmal atrial fibrillation) Pulmonary hypertension RVSP 40-45mmHg on 10/2020 ECHO Rheumatoid arthritis No medications Followed with rheum in the past- no recent issues Secondary hyperparathyroidism of renal origin SOB (shortness of breath) on exertion Spondylosis Subclavian artery stenosis Surgical History (Updated 07/04/22 @ 10:21 by Ebony Alvarenga DO) H/O colonoscopy H/O heart artery stent H/O: section History of appendectomy History of cardiac cath TOTAL 6? STENTS- 2018 and 2019 History of cataract surgery right and left History of cholecystectomy History of hysterectomy History of left-sided carotid endarterectomy (09/27/21) redo L CEA, Dr Bateman History of oophorectomy S/P angioplasty (02/03/21) CLASSIFIED AD CLERK L SFA S/P AV hiren ablation (06/30/22) S/P carotid endarterectomy B/l 2015 S/P coronary artery stent placement (10/2017) NATY to mid LAD S/P coronary artery stent placement (10/2018) NATY prox mid LAD 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) S/P thoracentesis (03/2020) b/l d/t CHF Status post partial mastectomy of right breast (09/17/21) 09/17/21 - Done under [facility] with LMA #4. Atraumatic LMA insertion. Magnet placed secondary to pacemaker. Right Breast Partial Mastectomy with [employer] Supervisor Localization, Right Axillary [place] Lymph Node Biopsy(Right) - Hua Acosta DO Family History Daughter Coronary heart disease Cardiac stent Diabetes Mother , 83yo Diabetes Family history of hypercholesterolemia Myocardial infarction Hypertension Stroke Brother Colorectal cancer 1/2 brother Father , Accident in war Brother Diabetes 1/2 brother;Complications of DM Family/Other Myocardial infarction 1/2 sister Son Coronary heart disease Cardiac stent Hypertension Other Pacemaker Denies family history of Ovarian cancer Prostate cancer Breast cancer Social History Smoking Status: Never smoker Second Hand Exposure: Yes; Hx Alcohol Use: No Hx Substance Use: No Preferred Language: Citizen Of [place] Communication Ability: Effective Visual Impairment: No Limitations Hearing Ability: Hard of Hearing Hand Bobbin Cleaner Required: No Beliefs That Will Affect Care: None marital status: / marital status details: passed 2000 Current Living Situation: Alone current occupational status: retired 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 How many Children do You have: 2 Feels Safe at Home: Yes caffeine: Yes (1 cup/day) during the past year weight has: remained stable Seatbelt Use: always Assistive Devices: Cane, Glasses and Hearing Aid - Bilateral Allergies Allergies Allergy/AdvReac Type Severity Reaction Status Date / Time adhesive Allergy Intermediate REDNESS Verified 07/04/22 09:16 AND IRRITATION FROM PAIN PATCH, TAPE latex Allergy Intermediate ALLERGIC Verified 07/04/22 09:16 TO LATEX TAPE/RASH/ITCHING morphine Allergy Intermediate swelling Verified 07/04/22 09:16 nausea vomiting olmesartan Allergy Unknown UNKNOWN Verified 07/04/22 09:16 benzonatate AdvReac Intermediate confusion Verified 07/04/22 09:16 [From Giovanni Brennan] dulaglutide [From Trulicity] AdvReac Intermediate AFFECTS Verified 07/04/22 09:16 MUSCLES exenatide [From Byetta] AdvReac Intermediate Diarrhea Verified 07/04/22 09:16 ezetimibe AdvReac Intermediate MUSCLE Verified 07/04/22 09:16 ACHES glipizide AdvReac Intermediate Diarrhea Verified 07/04/22 09:16 glyburide AdvReac Intermediate Diarrhea Verified 07/04/22 09:16 lisinopril AdvReac Intermediate LIGHTHEADED Verified 07/04/22 09:16 AND DIZZY losartan AdvReac Intermediate dizziness Verified 07/04/22 09:16 metformin AdvReac Intermediate Diarrhea Verified 07/04/22 09:16 pioglitazone AdvReac Intermediate DIARRHEA Verified 07/04/22 09:16 NAUSEA sitagliptin [From Januvia] AdvReac Intermediate Diarrhea Verified 07/04/22 09:16 [id number]-[id number] Reductase AdvReac Intermediate myalgias Verified 07/04/22 09:16 Inhibitor and [[id number]-Sfd-Usy Reductase weakness Inhibitor] aspirin AdvReac Mild GI SYMPTOMS Verified 07/04/22 09:16 Home Meds Home Medications Medication Instructions Recorded Confirmed multivitamin (Multiple Vitamins 1 tab PO QAM 05/19/19 07/04/22 tablet) polyethylene glycol 3350 17 17 g PO HS 03/29/20 07/04/22 gram/dose oral powder (Miralax) vitamin E 268 mg (400 unit) capsule 400 unit PO QAM 03/29/20 07/04/22 cholecalciferol (vitamin D3) 25 1,000 unit PO QAM 05/17/21 07/04/22 mcg (1,000 unit) capsule garlic 1,000 mg capsule 1,000 mg PO QPM 09/07/21 07/04/22 omega-3 fatty acids 1,000 mg 1,000 mg PO QPM 10/15/21 07/04/22 capsule anastrozole 1 mg tablet (Arimidex) 1 mg PO QAM 11/11/21 07/04/22 carvedilol 6.25 mg tablet (Coreg) 6.25 mg PO HS 12/29/21 07/04/22 ascorbate calcium (vitamin C) 500 500 mg PO DAILY 06/27/22 07/04/22 mg tablet potassium gluconate 595 mg (99 mg) 595 mg PO DAILY 06/27/22 07/04/22 tablet Previous Rx's Medication Instructions Recorded magnesium oxide 400 mg PO QPM #90 caps 04/01/19 carvedilol 3.125 mg tablet 3.125 mg PO QAM #90 tabs 01/03/22 ticagrelor 90 mg tablet (Brilinta) 90 mg PO BID #180 tabs 01/24/22 insulin syringe-needle U-100 0.3 #100 ea 01/25/22 mL 31 gauge x 5/16" (BD SafetyGlide Insulin Syringe) ranolazine 500 mg tablet,extended 500 mg PO BID #180 tabs 03/21/22 release,12 hr (Ranexa) levothyroxine 75 mcg tablet 75 mcg PO QAM #90 tabs 03/24/22 Xeroform #30 ea 03/29/22 hydrofera blue Ready Foam Dressing #30 ea 03/29/22 apixaban 2.5 mg tablet (Eliquis) 2.5 mg PO BID #60 tabs 04/06/22 digoxin 125 mcg (0.125 mg) tablet 125 mcg PO 3XWK #36 tabs 04/13/22 insulin aspar prt-insulin aspart 15 - 30 unit (0.15 - 0.3 mL) 04/29/22 100 unit/mL (70-30) subcutaneous subcut AMPM #30 mL soln (Novolog Mix 70-30 U-100 Insuln) calcitriol 0.25 mcg capsule 0.25 mcg PO 3XWK #12 caps 05/09/22 (Rocaltrol) sertraline 25 mg tablet 25 mg PO DAILY #30 tabs 05/30/22 pantoprazole 40 mg tablet,delayed 40 mg PO BID Stomach Upset #180 06/07/22 release (Protonix) tabs ondansetron HCl 4 mg tablet 4 mg PO Q8H PRN nausea and 06/23/22 vomiting #30 tabs trazodone 50 mg tablet 50 mg PO HS PRN insomnia #90 tabs 06/23/22 bumetanide 1 mg tablet 2 mg PO BID #120 tabs 06/27/22 Results & Data (ED) Vital Signs Vital Signs - 24 hr 07/04/22 11:11 07/04/22 11:11 07/04/22 11:11 Temperature 36.5 C Temperature Source Oral Pulse Rate 80 Pulse Rate [Apical] 80 Pulse Rhythm [Apical] Regular Respiratory Rate 23 24 Respiratory Effort / Characteristics Short of Breath Short of Breath Blood Pressure 166/109 H Blood Pressure Mean 128 Pulse Oximetry 100 100 100 Oxygen Delivery Method Nasal Cannula Nasal Cannula Nasal Cannula Oxygen Flow Rate 3 3 3 Sepsis Recent Fever Within 48 Hours No Sepsis New/Unexplained Change in Mental Status No Sepsis Action Taken by Nursing No Action Required 07/04/22 13:27 Temperature Temperature Source Pulse Rate Pulse Rate [Apical] 80 Pulse Rhythm [Apical] Respiratory Rate 19 Respiratory Effort / Characteristics Blood Pressure Blood Pressure Mean Pulse Oximetry 96 Oxygen Delivery Method Oxygen Flow Rate Sepsis Recent Fever Within 48 Hours Sepsis New/Unexplained Change in Mental Status Sepsis Action Taken by Nursing Laboratory Data Result diagrams: 07/04/22 11:14 07/04/22 11:14 Lab Results 07/04/22 07/04/22 07/04/22 Range/Units 11:14 11:14 11:37 WBC 9.26 (4.8-10.8) K/ul RBC 4.08 (3.93-5.22) M/uL Hgb 13.4 (12.0-16.0) g/dl Hct 41.8 (34.1-44.9) % MCV 102.5 H (80.0-100.0) fL MCH 32.8 (25.0-34.0) pg MCHC 32.1 (32.0-36.0) g/dL RDW Std Deviation 50.4 H (36.4-46.3) fL RDW Coeff of Manuela 13.2 (11.5-14.5) % Plt Count 240 (130-400) K/uL MPV 11.0 (9.4-12.3) fL Immature Gran % (Auto) 0.3 % Neut % (Auto) 67.5 % Lymph % (Auto) 18.5 % Will % (Auto) 9.7 % Eos % (Auto) 3.5 % Baso % (Auto) 0.5 % Neut # (Auto) 6.25 (1.4-6.5) K/uL Lymph # (Auto) 1.71 (1.2-3.4) K/uL Will # (Auto) 0.90 H (0.24-0.82) K/uL Eos # (Auto) 0.32 (0-0.50) K/uL Baso # (Auto) 0.05 (0-0.2) K/uL Immature Gran # (Auto) 0.03 H (0.00-0.02) K/uL Sodium 135 L (136-145) mmol/L Potassium 4.2 (3.5-5.1) mmol/L Chloride 96 L (98-107) mmol/L Carbon Dioxide 31 (21-32) mmol/L Anion Gap 8 (3-11) BUN 30 H (6-23) mg/dl Creatinine 1.92 H (0.6-1.2) mg/dl Est Cr Clr Drug Dosing 24.5 ml/min Est GFR ( Amer) 27.6 ml/min Est GFR (Non-Af Amer) 23.8 ml/min BUN/Creatinine Ratio 15.6 (10-20) Glucose 124 H (70-99(Fasting)) mg/dl Calcium 9.5 (8.5-10.1) mg/dl Magnesium 2.4 (1.7-2.4) mg/dl Total Bilirubin 0.5 (0.2-1.0) mg/dl Direct Bilirubin 0.0 (0-0.2) mg/dl AST 21 (13-39) U/L ALT 19 (7-52) U/L Alkaline Phosphatase 132 H (34-104) U/L Troponin I High Sens 60.1 H* D (0-14) pg/ml Total Protein 7.5 (6.0-8.3) gm/dl Albumin 3.7 (3.4-5.0) gm/dl Lipase 13 (11-82) U/L SARS-CoV-2, RNA, NAAT NEGATIVE (NEGATIVE) Imaging Data Radiologist's Impression: Chest X-Ray 07/04/22 11:20 XR chest 1V portable HISTORY: 81 years-old Female chest pain, sob acute atypical chest pain with shortness of breath COMPARISON: Chest radiograph 07/01/2022 TECHNIQUE: Portable AP view of the chest FINDINGS: Cardiac silhouette is enlarged. Left subclavian pacer/AICD. Aortic valvular endograft. Coronary arterial stents. Atherosclerosis of the aorta. No pneumothorax. Layering pleural effusions, right greater than left with bibasilar consolidation. Pulmonary vascular congestion with interstitial coarsening. Degenerative changes of the shoulders and spine. IMPRESSION: 1. Cardiomegaly with worsening pulmonary edema. 2. Right greater than left layering pleural effusions with mild bibasilar consolidation, progressed from prior. ACT 112: Negative or not required by law. The above report was generated using voice recognition software. It may contain grammatical, syntax or spelling errors. Electronically signed by: Irving Lerner M.D. 07/04/2022 11:36 AM Discharge Plan Visit Data Chief Complaint: Shortness of Breath/Dyspnea ED Provider: Darek Canales Discharge Problem: Acute congestive heart failure, Pleural effusion, Elevated troponin, Left-sided chest pain Forms Stand Alone Forms: [facility] [place] [employer] Prescriptions Prescriptions: No Action cholecalciferol (vitamin D3) 25 mcg (1,000 unit) capsule 1,000 unit PO QAM carvedilol 3.125 mg tablet 3.125 mg PO QAM Qty: 90 3RF Rx Instructions: must administer with a meal/food Brilinta 90 mg tablet 90 mg PO BID Qty: 180 3RF (DME) insulin syringe-needle U-100 [BD SafetyGlide Insulin Syringe] 0.3 mL 31 gauge x 5/16" syringe See Rx Instructions .Route Qty: 100 3RF Rx Instructions: test three times daily ranolazine [Ranexa] 500 mg tablet extended release 12 hr 500 mg PO BID Qty: 180 3RF levothyroxine 75 mcg tablet 75 mcg PO QAM Qty: 90 1RF Eliquis 2.5 mg tablet 2.5 mg PO BID Qty: 60 11RF digoxin 125 mcg (0.125 mg) tablet 125 mcg PO 3XWK Qty: 36 1RF Rx Instructions: Monday, Monday, Monday insulin asp prt-insulin aspart [Novolog Mix 70-30 U-100 Insuln] 100 unit/mL (70-30) solution 15 - 30 unit SUBCUT AMPM Qty: 30 1RF Rx Instructions: Per home sliding scale calcitriol [Rocaltrol] 0.25 mcg capsule 0.25 mcg PO 3XWK Qty: 12 1RF Rx Instructions: mono mccoy thur pantoprazole [Protonix] 40 mg tablet,delayed release (DR/EC) 40 mg PO BID Qty: 180 1RF trazodone 50 mg tablet 50 mg PO HS PRN (Reason: insomnia) Qty: 90 1RF ondansetron HCl 4 mg tablet 4 mg PO Q8H PRN (Reason: nausea and vomiting) Qty: 30 0RF magnesium oxide 400 mg magnesium capsule 400 mg PO QPM Qty: 90 0RF anastrozole [Arimidex] 1 mg tablet 1 mg PO QAM (DME) Xeroform See Rx Instructions .Route .MEDSUPPLY Qty: 30 5RF Rx Instructions: Apply to open area daily; (DME) hydrofera blue Ready Foam Dressing See Rx Instructions .Route .MEDSUPPLY Qty: 30 0RF Rx Instructions: As directed ascorbate calcium (vitamin C) 500 mg tablet 500 mg PO DAILY potassium gluconate 595 mg (99 mg) tablet 595 mg PO DAILY bumetanide 1 mg tablet 2 mg PO BID Qty: 120 3RF Rx Instructions: May increase to 3 mg BID for edema, swelling, weight gain. sertraline 25 mg tablet 25 mg PO DAILY Qty: 30 2RF carvedilol [Coreg] 6.25 mg tablet 6.25 mg PO HS multivitamin [Multiple Vitamins] tablet 1 tab PO QAM vitamin E 400 unit capsule 400 unit PO QAM polyethylene glycol 3350 [Miralax] 17 gram/dose Powder 17 g PO HS garlic 1,000 mg capsule 1,000 mg PO QPM omega-3 fatty acids 1,000 mg Capsule 1,000 mg PO QPM Referrals Referrals: Ebony Alvarenga DO [Primary Care Provider] -
--- NOTE | 2022-07-04 11:37 | XRay Report ---
XR chest 1V portable HISTORY: 81 years-old Female chest pain, sob acute atypical chest pain with shortness of breath COMPARISON: Chest radiograph 07/01/2022 TECHNIQUE: Portable AP view of the chest FINDINGS: Cardiac silhouette is enlarged. Left subclavian pacer/AICD. Aortic valvular endograft. Coronary arter ial stents. Atherosclerosis of the aorta. No pneumothorax. Layering pleural effusions, right greater than left with bibasilar consolidation. Pulmonary vascular congestion with interstitial coarsening. D egenerative changes of the shoulders and spine. IMPRESSION: 1. Cardiomegaly with worsening pulmonary edema. 2. Right greater than left layering pleural effusions with mild bibasilar consolidation, progressed f rom prior. ACT 112: Negative or not required by law. The above report was generated using voice recognition software. It may contain grammatical, syntax o r spelling errors. Electronically signed by: Irving Lenrer M.D. 07/04/2022 11:36 AM
[2022-07-04 12:00] LABS: Basophils # (auto) 0.05 K/uL (0-0.2); Basophils % (auto) 0.5 %; Eosinophils # (auto) 0.32 K/uL (0-0.50); Eosinophils % (auto) 3.5 %; Hematocrit (blood only) 41.8 % (34.1-44.9); Hemoglobin 13.4 g/dl (12.0-16.0); Immature Granulocytes # (auto) 0.03 K/uL (0.00-0.02); Immature Granulocytes % (auto) 0.3 %; Lymphocytes # (auto) 1.71 K/uL (1.2-3.4); Lymphocytes % (auto) 18.5 %; Mean Corpuscular Hemoglobin 32.8 pg (25.0-34.0); Mean Corpuscular Hgb Conc 32.1 g/dL (32.0-36.0); Mean Corpuscular Volume 102.5 fL (80.0-100.0); Monocytes % (auto) 9.7 %; Neutrophils # (auto) 6.25 K/uL (1.4-6.5); Neutrophils % (auto) 67.5 %; Platelet Count 240 K/uL (130-400); RDW Coefficient of Variation 13.2 % (11.5-14.5); RDW Standard Deviation 50.4 fL (36.4-46.3); Red Blood Count 4.08 M/uL (3.93-5.22); White Blood Count 9.26 K/ul (4.8-10.8)
[2022-07-04 12:04] LABS: Troponin I High Sensitivity 60.1 pg/ml (0-14)
[2022-07-04 12:05] LABS: Albumin Level 3.7 gm/dl (3.4-5.0); BUN Creatinine Ratio 15.6 (10-20); Bilirubin,Total 0.5 mg/dl (0.2-1.0); Calcium 9.5 mg/dl (8.5-10.1); Creatinine Clr Calc Pharmacy 24.5 ml/min; Est GFR (African American) 27.6 ml/min; Est GFR (Non-African American) 23.8 ml/min; Magnesium 2.4 mg/dl (1.7-2.4); Potassium 4.2 mmol/L (3.5-5.1); Total Protein 7.5 gm/dl (6.0-8.3)
--- NOTE | 2022-07-04 12:30 | History & Physical Report ---
Date of Service July 04, 2022 Assessment & Plan (1) HFrEF (heart failure with reduced ejection fraction): Plan: Ban is a 81-year-old female who presents with worsening chest pain and shortness of breath. S/p ablation 4 days ago. Acute on chronic congestive heart failure with reduced ejection fraction, history of CAD TTE 06/11/2022: EF 30-35%, mild concentric LVH, moderately dilated LA CXR:1. Cardiomegaly with worsening pulmonary edema. 2. Right greater than left layering pleural effusions with mild bibasilar consolidation, progressed from prior. History of NATY to mid LAD 10/2017, NATY to proximalmid LAD 10/2018, circumflex PCI 09/2019, mid circumflex 05/2019, ostial circumflex 12/2019 Allergic to aspirin, he is maintained on Plavix with Eliquis Intolerance to HERMELINDO/ARB due to CKD Continue carvedilol Continue Ranexa, Brilinta twice daily, Eliquis dose reduced. Patient allergic to aspirin Strict ins and outs Standing weight only, daily weight Bumex 1 mg IV twice daily, 1 dose given. Follow BMP daily Patient did have a transient episode of left-sided chest pain & into her arm while en route via EMS which which resolved without nitro/diuretic/morphine. High-sensitivity troponin 50, this may be elevated due to her recent ablation versus current presentation. Trend 2-hour and every 6hx3. Patient with high risk multivessel disease Depression Continue sertraline Continue trazodone nightly Paroxysmal atrial fibrillation/flutter With recent hospitalization requiring cardioversion S/p AV node ablation 06/30/2022 Continue digoxin 125 mcg p.o. 3 times weekly Continue carvedilol 6.25 mg p.o. nightly, 3.125 mg p.o. every morning Continue dose reduced Eliquis 2.5 mg p.o. twice daily Amiodarone has been discontinued following her ablation. Adequate rate at time of bedside assessment Right-sided pleural effusion S/p ultrasound-guided thoracentesis 07/01/2022, 1350 cc serous material removed Defer recurrent thoracentesis at this time, suspect acute on chronic CHF with high risk of reaccumulation. Will treat with diuretic Type II DM On 70/30 scaled 15-30 units AM/PM at home Convert to basal bolus, basal 8 units twice daily, CF 15, carb ratio 15 Goal BSG 609352 Glucose checks AC/at bedtime GERD Continue PPI Aortic stenosis s/p TAVR No acute change in management History of breast cancer Continue anastrozole 1 mg p.o. every morning DVT prophylaxis: On Eliquis Diet: DM, low-salt, heart healthy Disposition: Med telemetry for acute on chronic CHF CODE STATUS: DNR/DNI, discussed with patient at bedside (2) Pleural effusion: (3) DM II (diabetes mellitus, type II), controlled: (4) Valvular heart disease: (5) CKD (chronic kidney disease) stage 4, GFR 15-29 ml/min: (6) S/P carotid endarterectomy: (7) PAF (paroxysmal atrial fibrillation): (8) Breast cancer, right: (9) Chronic combined systolic and diastolic CHF (congestive heart failure): (10) Pulmonary hypertension: (11) S/P coronary artery stent placement: (12) Biventricular ICD (implantable cardioverter-defibrillator) in place: (13) CAD (coronary artery disease): (14) GERD (gastroesophageal reflux disease): History of Present Illness Primary Care Provider: DO Ban Solares is a 81-year-old female who presents with worsening chest pain and shortness of breath. S/p ablation 4 days ago. ER Review: No leukocytosis Hemoglobin normal, 13.4. MCV is increased to 102 Sodium normal, potassium 4.2 Baseline creatinine 1.72.1, admitting creatinine 1.92 No transaminitis Magnesium normal High-sensitivity troponin 60.1 Lipase 13 COVID-negative CXR: Cardiomegaly with worsening pulmonary edema, right greater than left layering pleural effusions with mild bibasilar consolidation worsened from prior EKG: Ventricular paced rhythm per Pt Short of breath since monday afternoon Had an appt with Dr Alvarenga this morning and was recommended for ER evaluation Had an ablation for afib last , and on Monday had a RIGHT pleural effusion drained Inititally felt OK monday after the thoracentesis, but Monday after lunch shortness of breath started to worsen Had soup Sat/Sun, but made it herself and no salt. Has been avoiding salt No chest pain at tiem of assessment. She reprots prior to arrival was having some chest pain just on the way over while in the ambulance. Was in her L chest and went across her arm into the elbow. Started usp on the way over in the ambulance and went away on its own in the ER. No fevers, chills, or sweats +fatigue No chest pain prior to this morning Has been sleeping elevated due to orthopnea for several years. Hasnt sleeping much in the bed, has been sleeping in the recliner due to increased orthopnea. +S<. NO leg edema. L leg ulcer Medical History: Reviewed Medications: Reviewed Surgical History: Reviewed Allergies: Reviewed Social History: Reviewed Code Status:DNR/DNI Allergies Allergy/AdvReac Type Severity Reaction Status Date / Time adhesive Allergy Intermediate REDNESS Verified 07/04/22 09:16 AND IRRITATION FROM PAIN PATCH, TAPE latex Allergy Intermediate ALLERGIC Verified 07/04/22 09:16 TO LATEX TAPE/RASH/ITCHING morphine Allergy Intermediate swelling Verified 07/04/22 09:16 nausea vomiting olmesartan Allergy Unknown UNKNOWN Verified 07/04/22 09:16 benzonatate AdvReac Intermediate confusion Verified 07/04/22 09:16 [From Giovanni Brennan] dulaglutide [From Trulicity] AdvReac Intermediate AFFECTS Verified 07/04/22 09:16 MUSCLES exenatide [From Byetta] AdvReac Intermediate Diarrhea Verified 07/04/22 09:16 ezetimibe AdvReac Intermediate MUSCLE Verified 07/04/22 09:16 ACHES glipizide AdvReac Intermediate Diarrhea Verified 07/04/22 09:16 glyburide AdvReac Intermediate Diarrhea Verified 07/04/22 09:16 lisinopril AdvReac Intermediate LIGHTHEADED Verified 07/04/22 09:16 AND DIZZY losartan AdvReac Intermediate dizziness Verified 07/04/22 09:16 metformin AdvReac Intermediate Diarrhea Verified 07/04/22 09:16 pioglitazone AdvReac Intermediate DIARRHEA Verified 07/04/22 09:16 NAUSEA sitagliptin [From Januvia] AdvReac Intermediate Diarrhea Verified 07/04/22 09:16 Duvtnfo-GSH-DaO Reductase AdvReac Intermediate myalgias Verified 07/04/22 09:16 Inhibitor and [Reajqey-Khu-Nbt Reductase weakness Inhibitor] aspirin AdvReac Mild GI SYMPTOMS Verified 07/04/22 09:16 Home Medications Medication Instructions Recorded Confirmed Type magnesium oxide 400 mg PO QPM #90 caps 04/01/19 07/04/22 Rx multivitamin (Multiple Vitamins 1 tab PO QAM 05/19/19 07/04/22 History tablet) polyethylene glycol 3350 17 17 g PO HS 03/29/20 07/04/22 History gram/dose oral powder (Miralax) vitamin E 268 mg (400 unit) capsule 400 unit PO QAM 03/29/20 07/04/22 History cholecalciferol (vitamin D3) 25 1,000 unit PO QAM 05/17/21 07/04/22 History mcg (1,000 unit) capsule garlic 1,000 mg capsule 1,000 mg PO QPM 09/07/21 07/04/22 History omega-3 fatty acids 1,000 mg 1,000 mg PO QPM 10/15/21 07/04/22 History capsule anastrozole 1 mg tablet (Arimidex) 1 mg PO QAM 11/11/21 07/04/22 History carvedilol 6.25 mg tablet (Coreg) 6.25 mg PO HS 12/29/21 07/04/22 History carvedilol 3.125 mg tablet 3.125 mg PO QAM #90 tabs 01/03/22 07/04/22 Rx ticagrelor 90 mg tablet (Brilinta) 90 mg PO BID #180 tabs 01/24/22 07/04/22 Rx insulin syringe-needle U-100 0.3 #100 ea 01/25/22 07/04/22 Rx mL 31 gauge x 5/16" (BD SafetyGlide Insulin Syringe) ranolazine 500 mg tablet,extended 500 mg PO BID #180 tabs 03/21/22 07/04/22 Rx release,12 hr (Ranexa) levothyroxine 75 mcg tablet 75 mcg PO QAM #90 tabs 03/24/22 07/04/22 Rx Xeroform #30 ea 03/29/22 07/04/22 Rx hydrofera blue Ready Foam Dressing #30 ea 03/29/22 07/04/22 Rx apixaban 2.5 mg tablet (Eliquis) 2.5 mg PO BID #60 tabs 04/06/22 07/04/22 Rx digoxin 125 mcg (0.125 mg) tablet 125 mcg PO 3XWK #36 tabs 04/13/22 07/04/22 Rx insulin aspar prt-insulin aspart 15 - 30 unit (0.15 - 0.3 mL) 04/29/22 07/04/22 Rx 100 unit/mL (70-30) subcutaneous subcut AMPM #30 mL soln (Novolog Mix 70-30 U-100 Insuln) calcitriol 0.25 mcg capsule 0.25 mcg PO 3XWK #12 caps 05/09/22 07/04/22 Rx (Rocaltrol) sertraline 25 mg tablet 25 mg PO DAILY #30 tabs 05/30/22 07/04/22 Rx pantoprazole 40 mg tablet,delayed 40 mg PO BID Stomach Upset #180 06/07/22 07/04/22 Rx release (Protonix) tabs ondansetron HCl 4 mg tablet 4 mg PO Q8H PRN nausea and 06/23/22 07/04/22 Rx vomiting #30 tabs trazodone 50 mg tablet 50 mg PO HS PRN insomnia #90 tabs 06/23/22 07/04/22 Rx ascorbate calcium (vitamin C) 500 500 mg PO DAILY 06/27/22 07/04/22 History mg tablet bumetanide 1 mg tablet 2 mg PO BID #120 tabs 06/27/22 07/04/22 Rx potassium gluconate 595 mg (99 mg) 595 mg PO DAILY 06/27/22 07/04/22 History tablet Past Med/Surg History Medical History (Updated 07/04/22 @ 10:21 by Ebony Alvarenga, ) Anemia due to chronic kidney disease Antiplatelet or antithrombotic long-term use Aortic stenosis, severe S/p TAVR 10/2019 Bilateral carotid artery stenosis H/o bilateral CEAs in 2016 Per 07/2021 vascular note- carotid ultrasound from office visit showed patent right CEA with velocities suggesting 50-59% stenosis restenosis Patent left CEA with velocities suggesting 99% restenosis - had re-do of left CEA 09/27/21 Biventricular ICD (implantable cardioverter-defibrillator) in place (04/30/20) Med[employer] implanted 04/30/2020. Capped right ventricular pacing lead Last check 09/2021 Breast cancer, right Right breast mastectomy 09/17/21 at [facility] CAD (coronary artery disease) F/U DR CUEVA S/p NATY x 1 to Cx in 2019; NATY to ostial LM 01/10/20 Chronic combined systolic and diastolic CHF (congestive heart failure) EF 40% per 10/16/21 ECHO Chronic kidney disease STAGE IV-F/U DR SALINAS Chronic obstructive pulmonary disease, unspecified Breathing stable Depression Diabetes mellitus, type 2 Glucose fluctuates DVT (deep venous thrombosis) LOWER LEG 2019 GERD (gastroesophageal reflux disease) History of CVA (cerebrovascular accident) Had RUE weakness and numbness after 09/17/21 breast surgery- CT scan of head negative; unable to do MRI due to ICD Per PCP records 10/22/21= "[place] her post op RUE sx related to possible small stroke/TIA" Hypothyroidism Insomnia Ischemic cardiomyopathy Left bundle branch block Nausea and vomiting after administration of anesthetic agent severe PONV s/p Left carotid surgery 09/27/21 at [facility] NSTEMI (non-ST elevated myocardial infarction) Most recent 12/2019 (mild per patient) PAD (peripheral artery disease) S/p PROCUREMENT DIRECTOR and stenting of right SFA, and PROCUREMENT DIRECTOR of left SFA and common femoral artery PAF (paroxysmal atrial fibrillation) Pulmonary hypertension RVSP 40-45mmHg on 10/2020 ECHO Rheumatoid arthritis No medications Followed with rheum in the past- no recent issues Secondary hyperparathyroidism of renal origin SOB (shortness of breath) on exertion Spondylosis Subclavian artery stenosis Surgical History (Updated 07/04/22 @ 10:21 by Ebony Alvarenga DO) H/O colonoscopy H/O heart artery stent H/O: section History of appendectomy History of cardiac cath TOTAL 6? STENTS- 2018 and 2019 History of cataract surgery right and left History of cholecystectomy History of hysterectomy History of left-sided carotid endarterectomy (09/27/21) redo L CEA, Dr Bateman History of oophorectomy S/P angioplasty (02/03/21) PROCUREMENT DIRECTOR L SFA S/P AV hiren ablation (06/30/22) S/P carotid endarterectomy B/l 2015 S/P coronary artery stent placement (10/2017) NATY to mid LAD S/P coronary artery stent placement (10/2018) NATY prox mid LAD 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) S/P thoracentesis (03/2020) b/l d/t CHF Status post partial mastectomy of right breast (09/17/21) 09/17/21 - Done under [facility] with LMA #4. Atraumatic LMA insertion. Magnet placed secondary to pacemaker. Right Breast Partial Mastectomy with [place] Infant Caregiver Localization, Right Axillary [place] Lymph Node Biopsy(Right) - Hua Acosta DO Family History Daughter Coronary heart disease Cardiac stent Diabetes Mother , 83yo Diabetes Family history of hypercholesterolemia Myocardial infarction Hypertension Stroke Brother Colorectal cancer 1/2 brother Father , Accident in war Brother Diabetes 1/2 brother;Complications of DM Family/Other Myocardial infarction 1/2 sister Son Coronary heart disease Cardiac stent Hypertension Other Pacemaker Denies family history of Ovarian cancer Prostate cancer Breast cancer Social History Smoking Status: Never smoker Second Hand Exposure: Yes; Hx Alcohol Use: No Hx Substance Use: No Preferred Language: Kinyarwanda Communication Ability: Effective Visual Impairment: No Limitations Hearing Ability: Hard of Hearing Clipper And Turner Required: No Beliefs That Will Affect Care: None marital status: / marital status details: passed 2000 Current Living Situation: Alone current occupational status: retired 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 NAD. Cooperative. HEENT: Atraumatic, normocephalic. Vision/hearing intact. PERLAA. Pulm: Diminished R>L without obvious rales. -wheezes, -rhonchi. Symmetrical chest rise. No increased work of breathing. No respiratory distress. Cardiac: RRR, +sm. Radial pulses intact and symmetrical. Abdominal: Nontender, nondistended, soft. BS present. Ext: No LE edema. Sensation intact to soft touch in hands and feet bilat without asymmetry. Group Controller strength, elbow flexion, ankle dorsi/plantarflexion 5/5 bilat. Results & Data Results & Data ([facility]) Vital Signs (Past 12 Hours) Vital Signs Temp Pulse Pulse Resp BP Pulse Ox O2 Del Method 07/04/22 11:11 80 24 100 Nasal Cannula 07/04/22 11:11 100 Nasal Cannula 07/04/22 11:11 36.5 C 80 23 166/109 H 100 Nasal Cannula O2 Flow Rate 07/04/22 11:11 3 07/04/22 11:11 3 07/04/22 11:11 3 PG Care Time/CCT Total # of Minutes Spent Total Time Spent with Patient: Total time spent is greater than 50% in coordination of care (as documented) at patient's floor/unit and/or counseling patient: Coding Level of Care Code INT OBSERVATION CARE 70M LVL 3 Diagnoses HFrEF (heart failure with reduced ejection fraction) I50.20 Pleural effusion J90 DM II (diabetes mellitus, type II), controlled E11.21; Z79.4 Diabetes mellitus longterm insulin use: with terminal block assembler use Diabetes mellitus complication status: with kidney complications Diabetes mellitus complication detail: with nephropathy Valvular heart disease I38 CKD (chronic kidney disease) stage 4, GFR 15-29 ml/min N18.4 S/P carotid endarterectomy Z98.890 PAF (paroxysmal atrial fibrillation) I48.0 Breast cancer, right C50.911 Chronic combined systolic and diastolic CHF (congestive heart failure) I50.42 Pulmonary hypertension I27.20 S/P coronary artery stent placement Z95.5 Biventricular ICD (implantable cardioverter-defibrillator) in place Z95.810 CAD (coronary artery disease) I25.10 GERD (gastroesophageal reflux disease) K21.9 (1) DM II (diabetes mellitus, type II), controlled Diabetes mellitus longterm insulin use: with longterm use Diabetes mellitus complication status: with kidney complications Diabetes mellitus complication detail: with nephropathy Qualified Code(s): E11.21 - Type 2 diabetes mellitus with diabetic nephropathy; Z79.4 - exterminator termite (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
[2022-07-04] MEDS ORDERED: BUMETANIDE 2 MG in SYRINGE 0 ML IV ONE (13:30)
--- NOTE | 2022-07-04 13:39 | Electrocardiogram Report ---
Test Reason : Blood Pressure : / mmHG Vent. Rate : 086 BPM Atrial Rate : 080 BPM P-R Int : 000 ms QRS Dur : 170 ms QT Int : 444 ms P-R-T Axes : 000 -83 088 degrees QTc Int : 531 ms Poor data quality, interpretation may be adversely affected Ventricular-paced rhythm Biventricular pacemaker detected Abnormal ECG When compared with ECG of 30-JUN-2022 15:10, Vent. rate has increased BY 6 BPM Confirmed by Davion Alvarez ([id number]) on 07/04/2022 1:39:52 PM Referred By: Confirmed By:Davion Alvarez
[2022-07-04 15:06] LABS: iSTAT Creatinine 1.8 mg/dl (0.6-1.3); iSTAT Hemoglobin 14.6 g/dl (12.0-16.0); iSTAT Ionized Calcium 1.14 mmol/l (1.12-1.32); iSTAT Potassium 4.1 mmol/L (3.3-5.0)
[2022-07-04] MEDS ORDERED: GLUCOSE 10 TAB/TUBE PO PRN (15:41)
[2022-07-04] MEDS ORDERED: ACETAMINOPHEN 325 MG TAB PO PRN (15:41)
[2022-07-04] MEDS ORDERED: GLUCAGON FOR INJ 1 MG VIAL SQ PRN (15:41)
[2022-07-04] MEDS ORDERED: GLUCOSE 40% GEL 15 GM TUBE PO PRN (15:41)
[2022-07-04] MEDS ORDERED: traZODone HCL 50 MG TAB PO PRN (15:41)
[2022-07-04] MEDS ORDERED: DEXTROSE 50% 50 ML SYRINGE IV PRN (15:41)
[2022-07-04] MEDS ORDERED: CARBOHYDRATES FOR HYPOGLYCEMIA PO PRN (15:41)
[2022-07-04] MEDS: BUMETANIDE 1 MG in SYRINGE 0 ML IV SCH (16:49)
[2022-07-04] MEDS: DIGOXIN 0.125 MG TAB PO SCH (16:54)
[2022-07-04] MEDS: INSULIN ASPART PER UNIT SC SCH ×2 (17:46→20:38)
[2022-07-04] MEDS: TICAGRELOR 90 MG TAB PO SCH (20:40)
[2022-07-04] MEDS: PANTOprazole 40 MG TAB PO SCH (20:41)
[2022-07-04] MEDS: carvediloL 6.25 MG TAB PO SCH (20:41)
[2022-07-04] MEDS: RANOLAZINE 500 MG ER TAB PO SCH (20:41)
[2022-07-04] MEDS: APIXABAN 2.5 MG TAB PO SCH (20:41)
[2022-07-04] MEDS: LANTUS PER UNIT CHARGE SQ SCH (21:06)
[2022-07-04] MEDS ORDERED: NITROGLYCERIN SL 0.4 MG/TAB TAB SL PRN (23:48)
[2022-07-05] MEDS ORDERED: HYDROmorphone INJ 0.5 MG/0.5 ML SYR IV STA
[2022-07-05] MEDS ORDERED: ACETAMINOPHEN 325 MG TAB PO PRN
[2022-07-05] MEDS: LIDOCAINE 5% 1 PATCH TD SCH ×2 (00:33→20:40)
[2022-07-05 03:18] LABS: Basophils # (auto) 0.04 K/uL (0-0.2); Basophils % (auto) 0.5 %; Eosinophils # (auto) 0.39 K/uL (0-0.50); Eosinophils % (auto) 4.9 %; Hematocrit (blood only) 39.6 % (34.1-44.9); Hemoglobin 12.9 g/dl (12.0-16.0); Immature Granulocytes # (auto) 0.02 K/uL (0.00-0.02); Immature Granulocytes % (auto) 0.3 %; Lymphocytes # (auto) 1.65 K/uL (1.2-3.4); Lymphocytes % (auto) 20.7 %; Mean Corpuscular Hemoglobin 33.3 pg (25.0-34.0); Mean Corpuscular Hgb Conc 32.6 g/dL (32.0-36.0); Mean Corpuscular Volume 102.3 fL (80.0-100.0); Mean Platelet Volume 10.8 fL (9.4-12.3); Monocytes # (auto) 0.88 K/uL (0.24-0.82); Neutrophils # (auto) 4.99 K/uL (1.4-6.5); Neutrophils % (auto) 62.6 %; Platelet Count 246 K/uL (130-400); RDW Coefficient of Variation 13.2 % (11.5-14.5); RDW Standard Deviation 50.4 fL (36.4-46.3); Red Blood Count 3.87 M/uL (3.93-5.22); White Blood Count 7.97 K/ul (4.8-10.8)
[2022-07-05 03:36] LABS: BUN Creatinine Ratio 15.1 (10-20); Calcium 9.1 mg/dl (8.5-10.1); Creatinine Clr Calc Pharmacy 25.5 ml/min; Est GFR (African American) 28.9 ml/min; Est GFR (Non-African American) 24.9 ml/min; Potassium 4.3 mmol/L (3.5-5.1)
--- NOTE | 2022-07-05 07:47 | Hospitalist Progress Note ---
Date of Service July 05, 2022 Assessment & Plan (1) HFrEF (heart failure with reduced ejection fraction): Plan: Ban is a 81-year-old female who presents with combined systoic and diastolic heart failure S/p AV node ablation 4 days ago. and thoracentesis on 07/01 Acute on chronic congestive heart failure with reduced ejection fraction, history of CAD TTE 06/11/2022: EF 30-35%, mild concentric LVH, moderately dilated LA CXR:with worsening pulmonary edema. Recurrence of pleural effusion with recent thoracenteisis will discuss pleurex with pulmonary team Elevated troponin likely demand ischemia with NATY to mid LAD 10/2017, NATY to proximalmid LAD 10/2018, circumflex PCI 09/2019, mid circumflex 05/2019, ostial circumflex 12/2019 Allergic to aspirin, she is maintained on Plavix with Eliquis Intolerance to HERMELINDO/ARB due to CKD Continue carvedilol Continue Ranexa, Brilinta twice daily, Eliquis dose reduced. Patient allergic to aspirin Bumex 1 mg IV twice daily, may discuss entresto or sglt2 and may need to make some med changes to tolerate (2) Pleural effusion: Plan: S/p ultrasound-guided thoracentesis 07/01/2022, 1350 cc serous material removed Defer recurrent thoracentesis at this time, suspect acute on chronic CHF with high risk of reaccumulation. Will treat with diuretic (3) PAF (paroxysmal atrial fibrillation): Plan: With recent hospitalization requiring cardioversion S/p AV node ablation 06/30/2022 Continue digoxin 125 mcg p.o. 3 times weekly Continue carvedilol 6.25 mg p.o. nightly, 3.125 mg p.o. every morning Continue dose reduced Eliquis 2.5 mg p.o. twice daily Amiodarone has been discontinued following her ablation. Adequate rate at time of bedside assessment (4) DM II (diabetes mellitus, type II), controlled: Plan: Type II DM On 70/30 scaled 15-30 units AM/PM at home Convert to basal bolus, basal 8 units twice daily, CF 15, carb ratio 15 Goal BSG [id number] Glucose checks AC/at bedtime (5) Valvular heart disease: Plan: S/p Tavr for Severe (6) Depression: Plan: Depression Continue sertraline Continue trazodone nightly (7) CKD (chronic kidney disease) stage 4, GFR 15-29 ml/min: (8) S/P carotid endarterectomy: (9) Breast cancer, right: Plan: History of breast cancer Continue anastrozole 1 mg p.o. every morning (10) Pulmonary hypertension: (11) Biventricular ICD (implantable cardioverter-defibrillator) in place: Plan DVT prophylaxis: On Eliquis Diet: DM, low-salt, heart healthy Disposition: Med telemetry for acute on chronic CHF CODE STATUS: DNR/DNI, discussed with patient at bedside Admission and Anticipated Discharge Date Admission Date: July 04, 2022 Subjective pt is doing better is tearful and is tired of continuing to be admitted, she is not ready for hospice yet Review of Systems Review of Systems: Mild distress and fatigue no headache, no visual changes no speech or swallowing issues no chest pain, pressure or palpitations mild shortness of breath, cough or wheezes no abdominal pain, nausea or vomiting, diarrhea or constipation no dysuria, hematuria or frequency no focal joint pain does have le swelling no back pain, CVA tenderness or radicular pain no bruising, bleeding or rashes no focal signs of weakness or numbness or altered sensation no complaints of anxiety or depression.. Physical Exam Physical Exam: The patient appeared well nourished and normally developed. Vital signs as documented. Head exam is normocephalic atraumatic Neck is with 2 cm JVD, thyromegaly, or carotid bruits. Lungs are diminshed bilaterally, Cardiac exam, irregular, systollic murmur is heard Abdominal exam reveals normal bowel sounds, soft non tender, no masses Extremities are 2+ edematous and both pedal pulses are present Neurologic exam is alert and oriented, no focal loss of strength or sensation Skin is without bruises or rashes Psychologically is without concerns for anxiety or depression.. Results & Data Results & Data ([facility]) Vital Signs (Past 12 Hours) Vital Signs Temp Pulse Resp BP Pulse Ox O2 Del Method O2 Flow Rate 07/05/22 07:31 97.9 F 80 18 136/80 93 Nasal Cannula 2 07/05/22 04:00 97.9 F 80 18 126/72 92 Nasal Cannula 2 07/04/22 23:00 98.2 F 80 18 161/78 H 94 Nasal Cannula 2 PG Care Time/CCT Total # of Minutes Spent Total Time Spent with Patient: Total time spent is greater than 50% in coordination of care (as documented) at patient's floor/unit and/or counseling patient: Coding Level of Care Code 43814 Subseq Hosp Care Lvl 3 Diagnoses HFrEF (heart failure with reduced ejection fraction) I50.20 Pleural effusion J90 PAF (paroxysmal atrial fibrillation) I48.0 DM II (diabetes mellitus, type II), controlled E11.21; Z79.4 Diabetes mellitus complication detail: with nephropathy Diabetes mellitus complication status: with kidney complications Diabetes mellitus long term care pharmacist insulin use: with mcc use Valvular heart disease I38 Depression F32.A CKD (chronic kidney disease) stage 4, GFR 15-29 ml/min N18.4 S/P carotid endarterectomy Z98.890 Breast cancer, right C50.911 Pulmonary hypertension I27.20 Biventricular ICD (implantable cardioverter-defibrillator) in place Z95.810 (1) DM II (diabetes mellitus, type II), controlled Diabetes mellitus complication detail: with nephropathy Diabetes mellitus complication status: with kidney complications Diabetes mellitus mcc insulin use: with mcc use Qualified Code(s): E11.21 - Type 2 diabetes mellitus with diabetic nephropathy; Z79.4 - roasterman (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
[2022-07-05] MEDS: APIXABAN 2.5 MG TAB PO SCH ×2 (08:12→20:42)
[2022-07-05] MEDS: RANOLAZINE 500 MG ER TAB PO SCH ×2 (08:12→20:47)
[2022-07-05] MEDS: TICAGRELOR 90 MG TAB PO SCH ×2 (08:12→20:47)
[2022-07-05] MEDS: PANTOprazole 40 MG TAB PO SCH ×2 (08:12→20:47)
[2022-07-05] MEDS: ANASTROZOLE 1 MG TAB PO SCH (08:13)
[2022-07-05] MEDS: carvediloL 3.125 MG TAB PO SCH (08:13)
[2022-07-05] MEDS: TOCOPHERYL, DL-ALPHA 400 UNITS 180 MG CAP PO SCH (08:13)
[2022-07-05] MEDS: SERTRALINE HCL 50 MG TABLET PO SCH (08:13)
[2022-07-05] MEDS: LEVOTHYROXINE SODIUM 75 MCG TABLET PO SCH (08:13)
[2022-07-05] MEDS: LANTUS PER UNIT CHARGE SQ SCH ×2 (08:14→20:58)
[2022-07-05] MEDS: BUMETANIDE 1 MG in SYRINGE 0 ML IV SCH ×2 (08:14→17:17)
[2022-07-05] MEDS: INSULIN ASPART PER UNIT SC SCH ×4 (08:15→20:57)
--- NOTE | 2022-07-05 16:14 | Electrocardiogram Report ---
Test Reason : Blood Pressure : / mmHG Vent. Rate : 080 BPM Atrial Rate : 088 BPM P-R Int : 000 ms QRS Dur : 170 ms QT Int : 462 ms P-R-T Axes : 000 -85 089 degrees QTc Int : 532 ms Ventricular-paced rhythm Biventricular pacemaker detected Abnormal ECG When compared with ECG of 04-JUL-2022 11:00, Vent. rate has decreased BY 6 BPM Confirmed by Davion Alvarez ([id number]) on 07/05/2022 4:13:43 PM Referred By: REFERRED SELF Confirmed By:Davion Alvarez
[2022-07-05] MEDS: carvediloL 6.25 MG TAB PO SCH (20:46)
[2022-07-05] MEDS ORDERED: POLYETHYLENE (MIRALAX) 17 GM PACK PO PRN (21:46)
[2022-07-06] MEDS: TOCOPHERYL, DL-ALPHA 400 UNITS 180 MG CAP PO SCH (08:18)
[2022-07-06] MEDS: SERTRALINE HCL 50 MG TABLET PO SCH (08:18)
[2022-07-06] MEDS: LEVOTHYROXINE SODIUM 75 MCG TABLET PO SCH (08:18)
[2022-07-06] MEDS: ANASTROZOLE 1 MG TAB PO SCH (08:19)
[2022-07-06] MEDS: carvediloL 3.125 MG TAB PO SCH (08:19)
[2022-07-06] MEDS: APIXABAN 2.5 MG TAB PO SCH ×2 (08:19→19:47)
[2022-07-06] MEDS: PANTOprazole 40 MG TAB PO SCH ×2 (08:19→19:47)
[2022-07-06] MEDS: TICAGRELOR 90 MG TAB PO SCH ×2 (08:19→19:47)
[2022-07-06] MEDS: RANOLAZINE 500 MG ER TAB PO SCH ×2 (08:19→19:47)
[2022-07-06] MEDS: INSULIN ASPART PER UNIT SC SCH ×4 (08:20→20:51)
[2022-07-06] MEDS: BUMETANIDE 1 MG in SYRINGE 0 ML IV SCH ×2 (08:20→16:34)
[2022-07-06] MEDS: LANTUS PER UNIT CHARGE SQ SCH ×2 (08:20→20:52)
[2022-07-06 08:28] LABS: BUN Creatinine Ratio 17.6 (10-20); Calcium 9.1 mg/dl (8.5-10.1); Creatinine Clr Calc Pharmacy 25.3 ml/min; Est GFR (African American) 29.5 ml/min; Est GFR (Non-African American) 25.4 ml/min; Magnesium 2.2 mg/dl (1.7-2.4); Potassium 4.3 mmol/L (3.5-5.1)
[2022-07-06] MEDS: DIGOXIN 0.125 MG TAB PO SCH (16:36)
[2022-07-06] MEDS: LIDOCAINE 5% 1 PATCH TD SCH (19:39)
[2022-07-06] MEDS: carvediloL 6.25 MG TAB PO SCH (19:47)
--- NOTE | 2022-07-06 20:41 | Hospitalist Progress Note ---
Date of Service July 06, 2022 Assessment & Plan (1) HFrEF (heart failure with reduced ejection fraction): Plan: Ban is a 81-year-old female who presents with combined systoic and diastolic heart failure S/p AV node ablation 4 days ago. and thoracentesis on 07/01 Acute on chronic congestive heart failure with reduced ejection fraction, history of CAD TTE 06/11/2022: EF 30-35%, mild concentric LVH, moderately dilated LA CXR:with worsening pulmonary edema. Recurrence of pleural effusion with recent thoracentesis will discuss pleurex with pulmonary team patient decompensated regard to respiratory status Elevated troponin likely demand ischemia with NATY to mid LAD 10/2017, NATY to proximalmid LAD 10/2018, circumflex PCI 09/2019, mid circumflex 05/2019, ostial circumflex 12/2019 Allergic to aspirin, she is maintained on Plavix with Eliquis Intolerance to HERMELINDO/ARB due to CKD Continue carvedilol Continue Ranexa, Brilinta twice daily, Eliquis dose reduced. Patient allergic to aspirin Bumex 1 mg IV twice daily, patient is on a candidate for SGLT2 due to her GFR. However within the Entresto description you can use Entresto cautiously with low GFR's we will start a low dose this evening. Another decision would be to consider spironolactone however the patient feels she has not been improving lately just on plain diuretics alone (2) Pleural effusion: Plan: S/p ultrasound-guided thoracentesis 07/01/2022, 1350 cc serous material removed Defer recurrent thoracentesis at this time, suspect acute on chronic CHF with high risk of reaccumulation. Will treat with diuretic (3) PAF (paroxysmal atrial fibrillation): Plan: With recent hospitalization requiring cardioversion S/p AV node ablation 06/30/2022 Continue digoxin 125 mcg p.o. 3 times weekly Continue carvedilol 6.25 mg p.o. nightly, 3.125 mg p.o. every morning Continue dose reduced Eliquis 2.5 mg p.o. twice daily Amiodarone has been discontinued following her ablation. Adequate rate at time of bedside assessment (4) DM II (diabetes mellitus, type II), controlled: Plan: Type II DM On 70/30 scaled 15-30 units AM/PM at home Convert to basal bolus, basal 8 units twice daily, CF 15, carb ratio 15 Goal BSG [id number] Glucose checks AC/at bedtime (5) Valvular heart disease: Plan: S/p Tavr for Severe (6) Depression: Plan: Depression Continue sertraline Continue trazodone nightly (7) CKD (chronic kidney disease) stage 4, GFR 15-29 ml/min: (8) S/P carotid endarterectomy: (9) Breast cancer, right: Plan: History of breast cancer Continue anastrozole 1 mg p.o. every morning (10) Pulmonary hypertension: (11) Biventricular ICD (implantable cardioverter-defibrillator) in place: Plan DVT prophylaxis: On Eliquis Diet: DM, low-salt, heart healthy Disposition: Med telemetry for acute on chronic CHF CODE STATUS: DNR/DNI, discussed with patient at bedside Admission and Anticipated Discharge Date Admission Date: July 04, 2022 Subjective Patient is less tearful but is definitely frustrated by the recurrent admissions to the hospital with a recent thoracentesis and recurrence or reaccumulation she does not seem short of breath at rest more than just mild Review of Systems Review of Systems: Mild distress and fatigue no headache, no visual changes no speech or swallowing issues no chest pain, pressure or palpitations mild shortness of breath, cough or wheezes no abdominal pain, nausea or vomiting, diarrhea or constipation no dysuria, hematuria or frequency no focal joint pain does have le swelling no back pain, CVA tenderness or radicular pain no bruising, bleeding or rashes no focal signs of weakness or numbness or altered sensation no complaints of anxiety or depression.. Physical Exam Physical Exam: The patient appeared well nourished and normally developed. Vital signs as documented. Head exam is normocephalic atraumatic Neck is with 2 cm JVD, thyromegaly, or carotid bruits. Lungs are diminished bilaterally, left greater than right Cardiac exam, irregular, systolic murmur is heard Abdominal exam reveals normal bowel sounds, soft non tender, no masses Extremities are 2+ edematous and both pedal pulses are present Neurologic exam is alert and oriented, no focal loss of strength or sensation Skin is without bruises or rashes Psychologically is without concerns for anxiety or depression.. Results & Data Results & Data ([facility]) Vital Signs (Past 12 Hours) Vital Signs Temp Pulse Pulse Resp BP Pulse Ox O2 Del Method 07/06/22 19:23 98.2 F 80 18 145/74 H 93 Nasal Cannula 07/06/22 16:36 80 07/06/22 16:11 98.6 F 80 20 137/69 96 Nasal Cannula 07/06/22 14:22 82 07/06/22 11:35 98.2 F 80 18 133/78 92 Room Air 07/06/22 10:27 Room Air O2 Flow Rate 07/06/22 19:23 1.5 07/06/22 16:36 07/06/22 16:11 1.5 07/06/22 14:22 07/06/22 11:35 07/06/22 10:27 PG Care Time/CCT Total # of Minutes Spent Total Time Spent with Patient: Total time spent is greater than 50% in coordination of care (as documented) at patient's floor/unit and/or counseling patient: Coding Level of Care Code 35911 Subseq Hosp Care Lvl 3 Diagnoses HFrEF (heart failure with reduced ejection fraction) I50.20 Pleural effusion J90 PAF (paroxysmal atrial fibrillation) I48.0 DM II (diabetes mellitus, type II), controlled E11.21; Z79.4 Diabetes mellitus senior care insulin use: with adjunct faculty for medical terminology use Diabetes mellitus complication status: with kidney complications Diabetes mellitus complication detail: with nephropathy Valvular heart disease I38 Depression F32.A CKD (chronic kidney disease) stage 4, GFR 15-29 ml/min N18.4 S/P carotid endarterectomy Z98.890 Breast cancer, right C50.911 Pulmonary hypertension I27.20 Biventricular ICD (implantable cardioverter-defibrillator) in place Z95.810 (1) DM II (diabetes mellitus, type II), controlled Diabetes mellitus senior care insulin use: with senior care use Diabetes mellitus complication status: with kidney complications Diabetes mellitus complication detail: with nephropathy Qualified Code(s): E11.21 - Type 2 diabetes mellitus with diabetic nephropathy; Z79.4 - adjunct faculty for medical terminology (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
[2022-07-06] MEDS ORDERED: SPIRONOLACTONE 25 MG TAB PO SCH (21:00)
[2022-07-06] MEDS: VALSARTAN/SACUBITRIL 26/24MG TAB PO SCH (23:12)
[2022-07-07] MEDS: VALSARTAN/SACUBITRIL 26/24MG TAB PO SCH ×2 (08:30→20:18)
[2022-07-07] MEDS: SERTRALINE HCL 50 MG TABLET PO SCH (08:31)
[2022-07-07] MEDS: ANASTROZOLE 1 MG TAB PO SCH (08:31)
[2022-07-07] MEDS: TOCOPHERYL, DL-ALPHA 400 UNITS 180 MG CAP PO SCH (08:31)
[2022-07-07] MEDS: carvediloL 3.125 MG TAB PO SCH ×2 (08:31→20:18)
[2022-07-07] MEDS: BUMETANIDE 1 MG in SYRINGE 0 ML IV SCH ×2 (08:31→18:18)
[2022-07-07] MEDS: LEVOTHYROXINE SODIUM 75 MCG TABLET PO SCH (08:32)
[2022-07-07] MEDS: APIXABAN 2.5 MG TAB PO SCH ×2 (08:32→20:17)
[2022-07-07] MEDS: TICAGRELOR 90 MG TAB PO SCH ×2 (08:32→20:18)
[2022-07-07] MEDS: RANOLAZINE 500 MG ER TAB PO SCH ×2 (08:32→20:51)
[2022-07-07] MEDS: PANTOprazole 40 MG TAB PO SCH ×2 (08:32→20:17)
[2022-07-07] MEDS: LANTUS PER UNIT CHARGE SQ SCH ×2 (08:39→20:19)
[2022-07-07] MEDS: INSULIN ASPART PER UNIT SC SCH ×4 (08:39→20:15)
[2022-07-07 09:43] LABS: BUN Creatinine Ratio 17.2 (10-20); Creatinine Clr Calc Pharmacy 24.1 ml/min; Est GFR (African American) 27.6 ml/min; Est GFR (Non-African American) 23.8 ml/min; Potassium 4.4 mmol/L (3.5-5.1)
--- NOTE | 2022-07-07 10:43 | Heart Failure Consultation ---
Date of Consultation July 07, 2022 Assessment & Plan (1) HFrEF (heart failure with reduced ejection fraction): (2) Mitral regurgitation: (3) Pulmonary hypertension: (4) S/P coronary artery stent placement: (5) Ischemic cardiomyopathy: (6) Biventricular ICD (implantable cardioverter-defibrillator) in place: (7) S/P TAVR (transcatheter aortic valve replacement): (8) CAD (coronary artery disease): (9) PAD (peripheral artery disease): (10) Bilateral carotid artery stenosis: Plan 1. Acute on chronic HFrEF: She does not appear overly hypervolemic on exam. She does have reaccumulation of her pleural effusion with intermittent hypoxia. O2 sats initially 88% this but have improved to 95% throughout the morning hours. Her weight is below baseline, however she reports poor appetite over several weeks and dry weight may be lower than previously thought. Kidney function is stable. Would continue to optimize her volume status. Consider increasing Bumex 2 mg IV BID to further optimize. Patient taking 2 mg PO as outpatient prior to admission. Also anticipate some mild diuretic effect from Entresto. Could also consider adding Spironolactone for additional diuresis and also HF benefits. Would recommend slow, cautious med changes/titration due to her previous issues with orthostasis. Encourage strict documentation of I&Os with a goal of at least 1-2 L negative per day. Discussed with nursing this am. Continue to monitor kidney function and electrolytes. She should continue daily standing weights. Home dry weight 195 lb.- suspectthis is actually lower due to her poor appetite in recent weeks. Low-sodium diet was recommended, less than 2000 mg. 2. Ischemic Cardiomyopathy: LV ejection fraction 30-35%.This is a slight decline from previous studies but she does wax/wane between 25-45% over the years. She has documented intolerance to HERMELINDO/ARBs in the past due to chronic kidney disease. She had symptomatic hypotension in the past as well. Losartan had been discontinued due to orthostatic symptoms. Entresto initiated yesterday and seems to be well tolerated so far. Continue careful monitoring of kidney function and BP. Continue Carvedilol.Unable to tolerate higher doses due to lightheadedness. Continue medical therapy. She is not a candidate for SGLT2 with GFR < 30. She was upgraded to a biventricular device. 3. Hypokalemia: Continue monitoring and current medical therapy. 4. Paroxysmal Atrial fibrillation/flutter: s/p AV node ablation. Continue rate control with Digoxin and Carvedilol. Amiodarone recently discontinued after ablation. Continue Eliquis for stroke risk reduction. 5. Hypertension: Well controlled. Continue current regimen. 7. Aortic stenosis- s/p TAVR 8. CAD: No current anginal symptoms. Continue Brillinta, beta venice, and Eliquis per Dr. Bateman. Patient self decreased her Ranexa 9. Pleural effusion: Chronic. Not requiring O2 at this time. Had thoracentesis in March 2020 with clinical improvement. Pulm recommended 1 year follow up with PFTs at that time. Repeat thoracentesis 07/01/22 with almost immediate reac cumulation. Would continue to optimize her diuretics as above and re-assess her clinical response. Could consider pulm consult/Pleur-x if not improving. Patient also with moderate restrictive physiology on PFTs in 2019 which is likely contributing to her dyspnea. Consider 2 step vs 6MWT to see if she would benefit from O2 with ambulation? 10. Mitral regurgitation: Moderate to severe. May be contributing factor. Also in the setting of volume overload. Would consider repeat echo once optimized to reassess. 11. Goals of care: Discussed in detail today. Patient's main goals are to remain independent in her home, complete ADLs, go to dinner with friends, and be able to maintain her flower garden. She has not been able to do this for several months due to worsening exertional dyspnea. Discussed the fact that this may be her new baseline but will have a better idea in weeks to come if she does not show any clinical improvement despite several hospitalizations. She states she would not be satisfied with her quality of life if this is her new baseline. She does have a living will and the details have been communicated this with her family. Her children are her POAs. We discussed palliative care and that she may benefit from ongoing outpatient discussions regarding goals of care and quality of life/symptom management. She is not interested in pursuing this at this time but is aware of the service. Disposition: Will continue to follow during hospitalization. Recommend close outpatient follow up with the heart failure program. History of Present Illness Attending Physician: John Downing MD History of Present Illness Details: Ms. Barry is a 81-year-old female with a past medical history significant for coronary artery disease (s/p NATY to mid LAD 10/2017 and NATY prox to mid LAD 10/17/2018 circumflex PCI 09/2019, mid circumflex 05/2019, ostial circumflex 12/2019), ischemic cardiomyopathy (EF 25-30%), chronic HFrEF, paroxysmal atrial flutter, aortic stenosis now sp TAVR 10/2019, mild to moderate mitral regurgitation, diabetes mellitus, CKD, hypothyroidism, carotid artery stenosis s/p bilateral carotid endarterectomies, peripheral arterial disease (mild-moderate disease in right SFA and 100% right anterior tibial stenosis in 05/2017), and symptomatic sinus bradycardia s/p dual-chamber pacemaker implantation 05/14/2018. Dr. Cueva is her primary field installer. She had the following studies: 1. 11/14/18 Echo- Left atrium is mildly dilated. Mild . Severe MR. RVSP is >60mmHg. Mild concentric LVH. LV systolic function is moderately to severely reduced, EF 25-30%. 2. 11/20/18 Echo- Limited views. LV systolic function midly reduced. EF 40-45%. 3. 03/19/19 Echo- borderline LV dilation. Moderate LV systolic dysfunction with EF 40-45%. Type 1 left ventricular diastolic dysfunction. Mild left atrial dilation. Moderate calcific aortic stenosis. Mild mitral regurgitation. Mild tricuspid regurgitation. Mildly elevated RVSP. Compared to 2017, aortic stenosis has worsened. 4. 09/04/19 Echo- Moderate to severe left ventricular systolic dysfunction, EF 30-35%. Moderate-severe aortic stenosis. Trace AR, Moderate MR, Moderate TR, Moderately elevated RVSP. . 05/2019 Cath- New severe mid circumflex 80% stenosis. Moderate multivessel non-obstructive CAD-30% ostial LM- 50% ostial circumflex- 50% ostial RCA- Widely patent LAD stents. Elevated LVEDP - 29. Successful PCI of mid circumflex with single NATY (2.75 x 18 Shahid). 6. 12/11/19 Echo: Mildly dilated LV with normal thickness. LVEF 25-30% with wall motion abnormalities. s/p TAVR with expected gradients. Moderate MR. Grade II diastolic dysfunction. Moderate pulm HTN, PASP 55-60 mmHg. Trace pericardial effusion. 6. 01/10/20 Cath- Severe left ostial main stenosis, moderate ostial circumflex, OM1 disease. Widely patent ostial RCA, LAD, and mid circumflex stents. 7. 03/30/20 Echo: LV normal size. EF 20-25%. Mild concentric LVH. Grade III diastolic dysfunction. Moderate MR. Large left pleural effusion. Well seated aortic valve. . 10/24/20 Echo: Mild dilation of LV and systolic dysfunction. EF 40-45%. TAVR. Moderate TR/MR. Mildly elevated RVSP. 10/16/21 Echo: LV systolic function mildly reduced. Global hypokinesis of the LV. EF 40%. Prosthetic aortic valve is well-seated with normal gradient. Moderate MR/TR. . 11/26/21 Cardioversion . 06/11/22 Echo: LV function moderately reduced. EF 30-35%. Left atrium moderately dilated. Bioprosthetic aortic valve. Mildly elevated transaortic gradient. Moderate to severe MR. RVSP elevated 40-50 mmHg. . 06/30/22: AV node ablation . 07/01/22: Thoracentesis, right side, 1350 cc. Non-malignant. She was recently admitted from 06/10/22 through 06/16/22 for acute on chronic HFrEF. She presented with increasing lower extremity edema and orthopnea despite escalation of her outpatient diuretic regimen. CXR consistent with mild congestive failure and R>L pleural effusions. She was initiated on Bumex 2 mg IV BID with good clinical response. Patient was discharged on her home dose of Bumex 1 mg BID. She was advised to increase to 2 mg BID PRN. Patient was evaluted in the office for hospital follow up on 06/27/22. She was euvolemic with weight at baseline. She continue to have dyspnea on exertion. Ongoing pleural effusion on CXR. Bumex increased to 2 mg BID. Dry weight was 195 lb. Patient underwent AV node ablation with Dr. Sanchez. She also had outpatient thoracentesis with Dr. Baxter on 07/01/22. Patient had short term improvement. She was re-admitted on 07/04/22. She presented with worsening shortness of breath, chest pain. She was initiated on supplemental O2 with clinical improvement. CXR with recurrent pleural effusion and developing pulmonary edema. Troponin mildly elevated. She was initiated on Bumex 1 mg IV BID. Patient feels somewhat better but continues to have significant dyspnea with any exertion. She is resting comfortably at rest and is able to carry on conversation without shortness of breath. She is currently not requiring supplemental O2 but O2 sats documented at 88% this am. She denies any significant lower extremity edema or abdominal distention. She is sleeping well with head slightly elevated. She denies PND. She reports good urine output initially. This was unmeasured due to having a crack in the hat which was unknown at the time. According to the patient her urine has not been measured at all since that time therefore I&Os likely inaccurate. Her weight was 191 lb on the standing scale this am. She was initiated on Entresto yesterday. No adverse effects noted at this time and BP remains adequate. She denies cough, chest pain, palpitations. Allergies Allergy/AdvReac Type Severity Reaction Status Date / Time adhesive Allergy Intermediate REDNESS Verified 07/04/22 09:16 AND IRRITATION FROM PAIN PATCH, TAPE latex Allergy Intermediate ALLERGIC Verified 07/04/22 09:16 TO LATEX TAPE/RASH/ITCHING morphine Allergy Intermediate swelling Verified 07/04/22 09:16 nausea vomiting olmesartan Allergy Unknown UNKNOWN Verified 07/04/22 09:16 benzonatate AdvReac Intermediate confusion Verified 07/04/22 09:16 [From Tessalon Perles] dulaglutide [From Trulicity] AdvReac Intermediate AFFECTS Verified 07/04/22 09:16 MUSCLES exenatide [From Byetta] AdvReac Intermediate Diarrhea Verified 07/04/22 09:16 ezetimibe AdvReac Intermediate MUSCLE Verified 07/04/22 09:16 ACHES glipizide AdvReac Intermediate Diarrhea Verified 07/04/22 09:16 glyburide AdvReac Intermediate Diarrhea Verified 07/04/22 09:16 lisinopril AdvReac Intermediate LIGHTHEADED Verified 07/04/22 09:16 AND DIZZY losartan AdvReac Intermediate dizziness Verified 07/04/22 09:16 metformin AdvReac Intermediate Diarrhea Verified 07/04/22 09:16 pioglitazone AdvReac Intermediate DIARRHEA Verified 07/04/22 09:16 NAUSEA sitagliptin [From Januvia] AdvReac Intermediate Diarrhea Verified 07/04/22 09:16 [id number] Reductase AdvReac Intermediate myalgias Verified 07/04/22 09:16 Inhibitor and [Xepxouv-Htr-Apo Reductase weakness Inhibitor] aspirin AdvReac Mild GI SYMPTOMS Verified 07/04/22 09:16 Home Medications Medication Instructions Recorded Confirmed Type magnesium oxide 400 mg PO QPM #90 caps 04/01/19 07/04/22 Rx polyethylene glycol 3350 17 17 g PO HS 03/29/20 07/04/22 History gram/dose oral powder (Miralax) vitamin E 268 mg (400 unit) capsule 400 unit PO QAM 03/29/20 07/04/22 History cholecalciferol (vitamin D3) 25 1,000 unit PO QAM 05/17/21 07/04/22 History mcg (1,000 unit) capsule garlic 1,000 mg capsule 1,000 mg PO QPM 09/07/21 07/04/22 History anastrozole 1 mg tablet (Arimidex) 1 mg PO QAM 11/11/21 07/04/22 History carvedilol 6.25 mg tablet (Coreg) 6.25 mg PO HS 12/29/21 07/04/22 History carvedilol 3.125 mg tablet 3.125 mg PO QAM #90 tabs 01/03/22 07/04/22 Rx ticagrelor 90 mg tablet (Brilinta) 90 mg PO BID #180 tabs 01/24/22 07/04/22 Rx insulin syringe-needle U-100 0.3 #100 ea 01/25/22 07/04/22 Rx mL 31 gauge x 5/16" (BD SafetyGlide Insulin Syringe) ranolazine 500 mg tablet,extended 500 mg PO BID #180 tabs 03/21/22 07/04/22 Rx release,12 hr (Ranexa) levothyroxine 75 mcg tablet 75 mcg PO QAM #90 tabs 03/24/22 07/04/22 Rx Xeroform #30 ea 03/29/22 07/04/22 Rx hydrofera blue Ready Foam Dressing #30 ea 03/29/22 07/04/22 Rx apixaban 2.5 mg tablet (Eliquis) 2.5 mg PO BID #60 tabs 04/06/22 07/04/22 Rx digoxin 125 mcg (0.125 mg) tablet 125 mcg PO 3XWK #36 tabs 04/13/22 07/04/22 Rx insulin aspar prt-insulin aspart 15 - 30 unit (0.15 - 0.3 mL) 07/15/22 09/19/22 Rx 100 unit/mL (70-30) subcutaneous subcut AMPM #30 mL soln (Novolog Mix 70-30 U-100 Insuln) calcitriol 0.25 mcg capsule 0.25 mcg PO 3XWK #12 caps 05/09/22 07/04/22 Rx (Rocaltrol) sertraline 25 mg tablet 25 mg PO DAILY #30 tabs 05/30/22 07/04/22 Rx pantoprazole 40 mg tablet,delayed 40 mg PO BID Stomach Upset #180 06/07/22 07/04/22 Rx release (Protonix) tabs ondansetron HCl 4 mg tablet 4 mg PO Q8H PRN nausea and 06/23/22 07/04/22 Rx vomiting #30 tabs trazodone 50 mg tablet 50 mg PO HS PRN insomnia #90 tabs 06/23/22 07/04/22 Rx ascorbate calcium (vitamin C) 500 500 mg PO DAILY 06/27/22 07/04/22 History mg tablet bumetanide 1 mg tablet 2 mg PO BID #120 tabs 06/27/22 07/04/22 Rx potassium gluconate 595 mg (99 mg) 595 mg PO DAILY 06/27/22 07/04/22 History tablet amiodarone 200 mg tablet 200 mg PO QPM 07/04/22 07/04/22 History Patient History Medical History (Updated 07/04/22 @ 14:06 by Darek Canales MD) Anemia due to chronic kidney disease Antiplatelet or antithrombotic long-term use Aortic stenosis, severe S/p TAVR 10/2019 Bilateral carotid artery stenosis H/o bilateral CEAs in 2016 Per 07/2021 vascular note- carotid ultrasound from office visit showed patent right CEA with velocities suggesting 50-59% stenosis restenosis Patent left CEA with velocities suggesting 99% restenosis - had re-do of left CEA 09/27/21 Biventricular ICD (implantable cardioverter-defibrillator) in place (04/30/20) [employer] implanted 04/30/2020. Capped right ventricular pacing lead Last check 09/2021 Breast cancer, right Right breast mastectomy 09/17/21 at [facility] CAD (coronary artery disease) F/U DR CUEVA S/p NATY x 1 to Cx in 2019; NATY to ostial LM 01/10/20 Chronic combined systolic and diastolic CHF (congestive heart failure) EF 40% per 10/16/21 ECHO Chronic kidney disease STAGE IV-F/U DR SALINAS Chronic obstructive pulmonary disease, unspecified Breathing stable Depression Diabetes mellitus, type 2 Glucose fluctuates DVT (deep venous thrombosis) LOWER LEG 2019 GERD (gastroesophageal reflux disease) History of CVA (cerebrovascular accident) Had RUE weakness and numbness after 09/17/21 breast surgery- CT scan of head negative; unable to do MRI due to ICD Per PCP records 10/22/21= "[place] her post op RUE sx related to possible small stroke/TIA" Hypothyroidism Insomnia Ischemic cardiomyopathy Left bundle branch block Nausea and vomiting after administration of anesthetic agent severe PONV s/p Left carotid surgery 09/27/21 at [facility] NSTEMI (non-ST elevated myocardial infarction) Most recent 12/2019 (mild per patient) PAD (peripheral artery disease) S/p NON CATEGORICAL PRESCHOOL TEACHER and stenting of right SFA, and NON 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 STENTS- 2018 and 2019 History of cataract surgery right and left History of cholecystectomy History of hysterectomy History of left-sided carotid endarterectomy (09/27/21) redo L CEA, Dr Bateman History of oophorectomy S/P angioplasty (02/03/21) NON CATEGORICAL PRESCHOOL TEACHER L SFA S/P AV hiren ablation (06/30/22) S/P carotid endarterectomy B/l 2015 S/P coronary artery stent placement (10/2017) NATY to mid LAD S/P coronary artery stent placement (10/2018) NATY prox mid LAD 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) S/P thoracentesis (03/2020) b/l d/t CHF Status post partial mastectomy of right breast (09/17/21) 09/17/21 - Done under [facility] with LMA #4. Atraumatic LMA insertion. Magnet placed secondary to pacemaker. Right Breast Partial Mastectomy with [employer] Localization, Right Axillary [place] Lymph Node Biopsy(Right) - Hua Acosta DO Family History Daughter Coronary heart disease Cardiac stent Diabetes Mother , 83yo Diabetes Family history of hypercholesterolemia Myocardial infarction Hypertension Stroke Brother Colorectal cancer 1/2 brother Father , Accident in war Brother Diabetes 1/2 brother;Complications of DM Family/Other Myocardial infarction 1/2 sister Son Coronary heart disease Cardiac stent Hypertension Other Pacemaker Denies family history of Ovarian cancer Prostate cancer Breast cancer Social History Smoking Status: Never smoker Second Hand Exposure: Yes; Hx Alcohol Use: No Hx Substance Use: No Preferred Language: Cape Verdean Communication Ability: Effective Visual Impairment: No Limitations Hearing Ability: Hard of Hearing Control Valve Mechanic Required: No Beliefs That Will Affect Care: None marital status: / marital status details: passed 2000 Current Living Situation: Alone current occupational status: retired 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 EOMs intact. Sclera anicteric. Face is symmetric. No perioral cyanosis. Mucous membranes moist. Neck: Supple, No JVD. - HJR Pulmonary: Normal respiratory effort. Decreased breath sounds at both bases, R>L. Cardiac: Regular rate and rhythm. S1-S2 normal. Grade 1/6 systolic murmur Extremities: Trace pretibial edema bilaterally. No clubbing or cyanosis. Pulses 2+ and symmetric Abdomen: Normal bowel sounds, soft, non-tender, no abdominal mass palpated Skin: Normal skin color, turgor, and pigmentation, no rash, no skin lesions Neurological: Oriented to person, place, and time Results & Data ([facility]) Vital Signs (Past 12 Hours) Vital Signs Temp Pulse Resp BP Pulse Ox O2 Del Method O2 Flow Rate 07/07/22 08:30 Room Air 07/07/22 08:00 98.1 F 80 18 110/70 88 L Room Air 07/07/22 04:14 97.5 F L 82 18 107/61 94 Nasal Cannula 1.5 07/06/22 23:01 98.1 F 82 18 143/80 H 94 Nasal Cannula 1.5 Heart Failure Data/Metrics Heart Failure Type: HFrEf (EF < 40%) Ejection Fraction: 30-35% NYHA classification: III: Sx w/ ltd. activity Risk Stratification: B Bi-V Defibrillator: Yes Diabetes Mellitus: Yes Evidenced Based Beta Venice Therapy Beta Venice Therapy: Yes Beta Venice Name: Carvedilol Beta [place] Target Therapy: Maximum Tolerated Therapy HERMELINDO/ARB/ARNI Therapy HERMELINDO/ARB/ARNI Therapy: Yes HERMELINDO/ARB/ARNI Name: Entrestrajani HERMELINDO/ARB/ARNI Target Therapy: Not at Target Therapy Coding Level of Care Code 22385 Initial Inpt Care Lvl 3 Diagnoses HFrEF (heart failure with reduced ejection fraction) I50.20 Mitral regurgitation I34.0 Pulmonary hypertension I27.20 S/P coronary artery stent placement Z95.5 Ischemic cardiomyopathy I25.5 Biventricular ICD (implantable cardioverter-defibrillator) in place Z95.810 S/P TAVR (transcatheter aortic valve replacement) Z95.2 CAD (coronary artery disease) I25.10 PAD (peripheral artery disease) I73.9 Bilateral carotid artery stenosis I65.23
[2022-07-07 15:41] LABS: BUN Creatinine Ratio 16.3 (10-20); Calcium 9.1 mg/dl (8.5-10.1); Creatinine Clr Calc Pharmacy 22.2 ml/min; Est GFR (African American) 24.9 ml/min; Est GFR (Non-African American) 21.5 ml/min; Potassium 4.2 mmol/L (3.5-5.1)
--- NOTE | 2022-07-07 19:29 | Hospitalist Progress Note ---
Date of Service July 07, 2022 Assessment & Plan (1) HFrEF (heart failure with reduced ejection fraction): Plan: Ban is a 81-year-old female who presents with combined systoic and diastolic heart failure S/p AV node ablation 4 days ago. and thoracentesis on 07/01 Acute on chronic congestive heart failure with reduced ejection fraction, history of CAD TTE 06/11/2022: EF 30-35%, mild concentric LVH, moderately dilated LA CXR:with worsening pulmonary edema. Recurrence of pleural effusion with recent thoracentesis will discuss pleurex with pulmonary team patient decompensated regard to respiratory status Elevated troponin likely demand ischemia with NATY to mid LAD 10/2017, NATY to proximalmid LAD 10/2018, circumflex PCI 09/2019, mid circumflex 05/2019, ostial circumflex 12/2019 Allergic to aspirin, she is maintained on Plavix with Eliquis Intolerance to HERMELINDO/ARB due to CKD Continue carvedilol Continue Ranexa, Brilinta twice daily, Eliquis dose reduced. Patient allergic to aspirin Bumex 1 mg IV daily, patient is on a candidate for SGLT2 due to her GFR. However within the Entresto description you can use Entresto cautiously with low GFR's tried to reduce bumex to daily but she recieved pm dose at 1700 on 07/07/22, will follow in am (2) Pleural effusion: Plan: S/p ultrasound-guided thoracentesis 07/01/2022, 1350 cc serous material removed Defer recurrent thoracentesis at this time, suspect acute on chronic CHF with high risk of reaccumulation. Will treat with diuretic (3) PAF (paroxysmal atrial fibrillation): Plan: With recent hospitalization requiring cardioversion S/p AV node ablation 06/30/2022 Continue digoxin 125 mcg p.o. 3 times weekly Continue carvedilol 6.25 mg p.o. nightly, 3.125 mg p.o. every morning Continue dose reduced Eliquis 2.5 mg p.o. twice daily Amiodarone has been discontinued following her ablation. Adequate rate at time of bedside assessment (4) DM II (diabetes mellitus, type II), controlled: Plan: Type II DM On 70/30 scaled 15-30 units AM/PM at home Convert to basal bolus, basal 8 units twice daily, CF 15, carb ratio 15 Goal BSG [id number] Glucose checks AC/at bedtime (5) Valvular heart disease: Plan: S/p Tavr for Severe (6) Depression: Plan: Depression Continue sertraline Continue trazodone nightly (7) CKD (chronic kidney disease) stage 4, GFR 15-29 ml/min: Plan: now some dixon on ckd4 will reduce diuresis (8) S/P carotid endarterectomy: (9) Breast cancer, right: Plan: History of breast cancer Continue anastrozole 1 mg p.o. every morning (10) Pulmonary hypertension: (11) Biventricular ICD (implantable cardioverter-defibrillator) in place: Plan DVT prophylaxis: On Eliquis CODE STATUS: DNR/DNI, discussed with patient at bedside Admission and Anticipated Discharge Date Admission Date: July 04, 2022 Subjective Patient is frustrated by the recurrent admissions to the hospital with a recent thoracentesis and recurrence or reaccumulation she does not seem short of breath at rest started entresto cautiously some mild jump in CR and reduced GFR, will follow if goes down more will stop Review of Systems Review of Systems: Mild distress and fatigue no headache, no visual changes no speech or swallowing issues no chest pain, pressure or palpitations mild shortness of breath, cough or wheezes no abdominal pain, nausea or vomiting, diarrhea or constipation no dysuria, hematuria or frequency no focal joint pain does have le swelling no back pain, CVA tenderness or radicular pain no bruising, bleeding or rashes no focal signs of weakness or numbness or altered sensation no complaints of anxiety or depression.. Physical Exam Physical Exam: The patient appeared well nourished and normally developed. Vital signs as documented. Head exam is normocephalic atraumatic Neck is with persistent 2 cm JVD, thyromegaly, or carotid bruits. Lungs are diminished bilaterally, left greater than right Cardiac exam, irregular, systolic murmur is heard Abdominal exam reveals normal bowel sounds, soft non tender, no masses Extremities are 2+ edematous and both pedal pulses are present Neurologic exam is alert and oriented, no focal loss of strength or sensation Skin is without bruises or rashes Psychologically is without concerns for anxiety or depression.. Results & Data Results & Data ([facility]) Vital Signs (Past 12 Hours) Vital Signs Temp Pulse Pulse Resp BP Pulse Ox O2 Del Method 07/07/22 14:56 98.1 F 80 18 139/77 92 Room Air 07/07/22 11:44 98.6 F 79 18 121/61 90 Nasal Cannula 07/07/22 07:30 80 07/07/22 08:30 Room Air 07/07/22 08:00 98.1 F 80 18 110/70 88 L Room Air O2 Flow Rate 07/07/22 14:56 07/07/22 11:44 2 07/07/22 07:30 07/07/22 08:30 07/07/22 08:00 PG Care Time/CCT Total # of Minutes Spent Total Time Spent with Patient: Total time spent is greater than 50% in coordination of care (as documented) at patient's floor/unit and/or counseling patient: Coding Level of Care Code 44799 Subseq Hosp Care Lvl 3 Diagnoses HFrEF (heart failure with reduced ejection fraction) I50.20 Pleural effusion J90 PAF (paroxysmal atrial fibrillation) I48.0 DM II (diabetes mellitus, type II), controlled E11.21; Z79.4 Diabetes mellitus remote computer terminal operator insulin use: with [facility] use Diabetes mellitus complication status: with kidney complications Diabetes mellitus complication detail: with nephropathy Valvular heart disease I38 Depression F32.A CKD (chronic kidney disease) stage 4, GFR 15-29 ml/min N18.4 S/P carotid endarterectomy Z98.890 Breast cancer, right C50.911 Pulmonary hypertension I27.20 Biventricular ICD (implantable cardioverter-defibrillator) in place Z95.810 (1) DM II (diabetes mellitus, type II), controlled Diabetes mellitus [facility] insulin use: with [facility] use Diabetes mellitus complication status: with kidney complications Diabetes mellitus complication detail: with nephropathy Qualified Code(s): E11.21 - Type 2 diabetes mellitus with diabetic nephropathy; Z79.4 - lobsterman (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
[2022-07-07] MEDS: LIDOCAINE 5% 1 PATCH TD SCH (20:19)
[2022-07-08 06:48] LABS: Calcium 8.9 mg/dl (8.5-10.1); Est GFR (African American) 26.3 ml/min; Est GFR (Non-African American) 22.7 ml/min
[2022-07-08] MEDS: VALSARTAN/SACUBITRIL 26/24MG TAB PO SCH ×2 (08:36→20:15)
[2022-07-08] MEDS: BUMETANIDE 1 MG in SYRINGE 0 ML IV SCH (08:36)
[2022-07-08] MEDS: TICAGRELOR 90 MG TAB PO SCH ×2 (08:36→20:14)
[2022-07-08] MEDS: carvediloL 3.125 MG TAB PO SCH ×2 (08:36→20:16)
[2022-07-08] MEDS: APIXABAN 2.5 MG TAB PO SCH ×2 (08:37→20:16)
[2022-07-08] MEDS: ANASTROZOLE 1 MG TAB PO SCH (08:37)
[2022-07-08] MEDS: SERTRALINE HCL 50 MG TABLET PO SCH (08:37)
[2022-07-08] MEDS: PANTOprazole 40 MG TAB PO SCH ×2 (08:37→20:16)
[2022-07-08] MEDS: LEVOTHYROXINE SODIUM 75 MCG TABLET PO SCH (08:37)
[2022-07-08] MEDS: TOCOPHERYL, DL-ALPHA 400 UNITS 180 MG CAP PO SCH (08:40)
[2022-07-08] MEDS: LANTUS PER UNIT CHARGE SQ SCH ×2 (08:55→20:23)
[2022-07-08] MEDS: INSULIN ASPART PER UNIT SC SCH ×4 (08:56→20:24)
[2022-07-08] MEDS ORDERED: ONDANSETRON INJ 2 MG/ML 2 ML VIAL IV PRN (09:52)
[2022-07-08] MEDS: RANOLAZINE 500 MG ER TAB PO SCH ×2 (11:32→20:14)
--- NOTE | 2022-07-08 16:13 | Heart Failure Progress Note ---
Date of Service July 08, 2022 Assessment & Plan (1) HFrEF (heart failure with reduced ejection fraction): (2) Mitral regurgitation: (3) Pulmonary hypertension: (4) S/P coronary artery stent placement: (5) Ischemic cardiomyopathy: (6) Biventricular ICD (implantable cardioverter-defibrillator) in place: (7) S/P TAVR (transcatheter aortic valve replacement): (8) CAD (coronary artery disease): (9) PAD (peripheral artery disease): (10) Bilateral carotid artery stenosis: Plan 1. Acute on chronic HFrEF: She does not appear overly hypervolemic on exam. Clinically she seems improved today and was able to walk the halls. She did have reaccumulation of her pleural effusion with intermittent hypoxia. O2 sats stable on room air. Consider repeat CXR to re-evaluate effusion? Primary service planning to discuss with Dr. Baxter. Her weight is below baseline, however she reports poor appetite over several weeks and dry weight may be lower than previously thought. Kidney function is stable. Would continue to optimize her volume status. Bumex decreased to 1 mg daily. She reports minimal output today. Her home dose is Bumex 2 mg BID. Also anticipate some mild diuretic effect from Entresto. Could also consider adding Spironolactone for additional diuresis and also HF benefits. Would recommend slow, cautious med changes/titration due to her previous issues with orthostasis. Encourage strict documentation of I&Os with a goal of at least 1-2 L negative per day. Discussed with nursing this am. Continue to monitor kidney function and electrolytes. She should continue daily standing weights. Home dry weight 195 lb.- suspectthis is actually lower due to her poor appetite in recent weeks. Low-sodium diet was recommended, less than 2000 mg. 2. Ischemic Cardiomyopathy: LV ejection fraction 30-35%.This is a slight decline from previous studies but she does wax/wane between 25-45% over the years. She has documented intolerance to HERMELINDO/ARBs in the past due to chronic kidney disease. She had symptomatic hypotension in the past as well. Losartan had been discontinued due to orthostatic symptoms. Entresto initiated and seems to be well tolerated so far. Continue careful monitoring of kidney function and BP. Continue Carvedilol.Unable to tolerate higher doses due to lightheadedness. Continue medical therapy. She is not a candidate for SGLT2 with GFR < 30. She was upgraded to a biventricular device. 3. Hypokalemia: Continue monitoring and current medical therapy. 4. Paroxysmal Atrial fibrillation/flutter: s/p AV node ablation. Continue rate control with Digoxin and Carvedilol. Amiodarone recently discontinued after ablation. Continue Eliquis for stroke risk reduction. 5. Hypertension: Well controlled. Continue current regimen. 7. Aortic stenosis- s/p TAVR 8. CAD: No current anginal symptoms. Continue Brillinta, beta estephania, and Eliquis per Dr. Bateman. Patient self decreased her Ranexa 9. Pleural effusion: Chronic. Not requiring O2 at this time. Had thoracentesis in March 2020 with clinical improvement. Pulm recommended 1 year follow up with PFTs at that time. Repeat thoracentesis 07/01/22 with almost immediate reaccumulation. Would continue to optimize her diuretics as above and re-assess her clinical response. Could consider pulm consult/Pleur-x if not improving. Patient also with moderate restrictive physiology on PFTs in 2020 which is likely contributing to her dyspnea. Consider 2 step vs 6MWT to see if she would benefit from O2 with ambulation? 10. Mitral regurgitation: Moderate to severe. May be contributing factor. Also in the setting of volume overload. Would consider repeat echo once optimized to reassess. 11. Goals of care: Discussed in detail today. Patient's main goals are to remain independent in her home, complete ADLs, go to dinner with friends, and be able to maintain her flower garden. She has not been able to do this for several months due to worsening exertional dyspnea. Discussed the fact that this may be her new baseline but will have a better idea in weeks to come if she does not show any clinical improvement despite several hospitalizations. She states she would not be satisfied with her quality of life if this is her new baseline. She does have a living will and the details have been communicated this with her family. Her children are her POAs. We discussed palliative care and that she may benefit from ongoing outpatient discussions regarding goals of care and quality of life/symptom management. She is not interested in pursuing this at this time but is aware of the service. Disposition: Will continue to follow during hospitalization. Recommend close outpatient follow up with the heart failure program. 07/14/22 at 930am. Admission and Anticipated Discharge Date Admission Date: July 08, 2022 Subjective Patient sitting comfortably at the edge of her bed today. She reports she had some GI upset after lunch but otherwise is feeling better. She was able to participate in PT today and ambulate the hallway. She reports she did well but did require O2 once she returned to her room. She denies lower extremity edema. She slept well with her head mildly elevated. She denies cough, palpitations, PND. Weight is 190 lb on standing scale. Bumex 1 mg IV this am. Kidney function and electrolytes are stable. Physical Exam Physical Exam: Constitutional: Alert, oriented, in no acute distress HEENT: Head is atraumatic and normocephalic. EOMs intact. Sclera anicteric. Face is symmetric. No perioral cyanosis. Mucous membranes moist. Neck: Supple, No JVD. - HJR Pulmonary: Normal respiratory effort. Decreased breath sounds at both bases, R>L. Cardiac: Regular rate and rhythm. S1-S2 normal. Grade 1/6 systolic murmur Extremities: Trace pretibial edema bilaterally. No clubbing or cyanosis. Pulses 2+ and symmetric Abdomen: Normal bowel sounds, soft, non-tender, no abdominal mass palpated Skin: Normal skin color, turgor, and pigmentation, no rash, no skin lesions Neurological: Oriented to person, place, and time Results & Data ([facility]) Vital Signs (Past 12 Hours) Vital Signs Temp Pulse Pulse Resp BP Pulse Ox O2 Del Method 07/08/22 08:00 80 07/08/22 08:00 Room Air, Nasal Cannula 07/08/22 11:22 97.9 F 80 20 136/79 96 Nasal Cannula 07/08/22 07:30 97.3 F L 79 18 126/82 93 Nasal Cannula 07/08/22 04:12 98.2 F 80 18 116/61 93 Room Air O2 Flow Rate 07/08/22 08:00 07/08/22 08:00 2 07/08/22 11:22 2 07/08/22 07:30 2 07/08/22 04:12 PG Care Time/CCT Total # of Minutes Spent Total Time Spent with Patient: Total time spent is greater than 50% in coordination of care (as documented) at patient's floor/unit and/or counseling patient: Coding Level of Care Code 18740 Subseq Hosp Care Lvl 3 Diagnoses HFrEF (heart failure with reduced ejection fraction) I50.20 Mitral regurgitation I34.0 Pulmonary hypertension I27.20 S/P coronary artery stent placement Z95.5 Ischemic cardiomyopathy I25.5 Biventricular ICD (implantable cardioverter-defibrillator) in place Z95.810 S/P TAVR (transcatheter aortic valve replacement) Z95.2 CAD (coronary artery disease) I25.10 PAD (peripheral artery disease) I73.9 Bilateral carotid artery stenosis I65.23
[2022-07-08] MEDS: DIGOXIN 0.125 MG TAB PO SCH (16:51)
--- NOTE | 2022-07-08 19:25 | Hospitalist Progress Note ---
Date of Service July 08, 2022 Assessment & Plan (1) HFrEF (heart failure with reduced ejection fraction): Plan: Ban is a 81-year-old female who presents with combined systoic and diastolic heart failure S/p AV node ablation 4 days ago. and thoracentesis on 07/01 Acute on chronic congestive heart failure with reduced ejection fraction, history of CAD TTE 06/11/2022: EF 30-35%, mild concentric LVH, moderately dilated LA CXR:with worsening pulmonary edema. Recurrence of pleural effusion with recent thoracentesis will discuss pleurex with pulmonary team patient decompensated regard to respiratory status Elevated troponin likely demand ischemia with NATY to mid LAD 10/2017, NATY to proximalmid LAD 10/2018, circumflex PCI 09/2019, mid circumflex 05/2019, ostial circumflex 12/2019 Allergic to aspirin, she is maintained on Plavix with Eliquis Intolerance to HERMELINDO/ARB due to CKD Continue carvedilol Continue Ranexa, Brilinta twice daily, Eliquis dose reduced. Patient allergic to aspirin Bumex 1 mg IV daily, patient is on a candidate for SGLT2 due to her GFR. However within the Entresto description you can use Entresto cautiously with low GFR's tried to reduce bumex to daily but she received pm dose at 1700 on 07/07/22, cr is stable, will need to decide on 07/09 if we keep entresto with its arb component based on CR and if needs the bid bumex and or just increased morning dose (2) Pleural effusion: Plan: S/p ultrasound-guided thoracentesis 07/01/2022, 1350 cc serous material removed Defer recurrent thoracentesis at this time, suspect acute on chronic CHF with high risk of reaccumulation. Will treat with diuretic (3) PAF (paroxysmal atrial fibrillation): Plan: With recent hospitalization requiring cardioversion S/p AV node ablation 06/30/2022 Continue digoxin 125 mcg p.o. 3 times weekly Continue carvedilol 6.25 mg p.o. nightly, 3.125 mg p.o. every morning Continue dose reduced Eliquis 2.5 mg p.o. twice daily Amiodarone has been discontinued following her ablation. Adequate rate at time of bedside assessment (4) DM II (diabetes mellitus, type II), controlled: Plan: Type II DM On 70/30 scaled 15-30 units AM/PM at home Convert to basal bolus, basal 8 units twice daily, CF 15, carb ratio 15 Goal BSG [id number] Glucose checks AC/at bedtime (5) Valvular heart disease: Plan: S/p Tavr for Severe (6) Depression: Plan: Depression Continue sertraline Continue trazodone nightly (7) CKD (chronic kidney disease) stage 4, GFR 15-29 ml/min: Plan: now some dixon on ckd4 will reduce diuresis (8) S/P carotid endarterectomy: (9) Breast cancer, right: Plan: History of breast cancer Continue anastrozole 1 mg p.o. every morning (10) Pulmonary hypertension: (11) Biventricular ICD (implantable cardioverter-defibrillator) in place: Plan DVT prophylaxis: On Eliquis CODE STATUS: DNR/DNI, discussed with patient at bedside Admission and Anticipated Discharge Date Admission Date: July 08, 2022 Subjective Patient sitting comfortably at the edge of her bed today. She reports she had some GI upset after lunch but otherwise is feeling better. She was able to participate in PT today and ambulate the hallway. She reports she did well but did require O2 once she returned to her room. She denies lower extremity edema. She slept well with her head mildly elevated. Review of Systems Review of Systems: Mild distress and fatigue no headache, no visual changes no speech or swallowing issues no chest pain, pressure or palpitations mild shortness of breath, cough or wheezes no abdominal pain, nausea or vomiting, diarrhea or constipation no dysuria, hematuria or frequency no focal joint pain does have le swelling no back pain, CVA tenderness or radicular pain no bruising, bleeding or rashes no focal signs of weakness or numbness or altered sensation no complaints of anxiety or depression.. Physical Exam Physical Exam: The patient appeared well nourished and normally developed. Vital signs as documented. Head exam is normocephalic atraumatic Neck is with persistent 2 cm JVD, thyromegaly, or carotid bruits. Lungs are diminished bilaterally, left greater than right Cardiac exam, irregular, systolic murmur is heard Abdominal exam reveals normal bowel sounds, soft non tender, no masses Extremities are 2+ edematous and both pedal pulses are present Neurologic exam is alert and oriented, no focal loss of strength or sensation Skin is without bruises or rashes Psychologically is without concerns for anxiety or depression.. Results & Data Results & Data ([facility]) Vital Signs (Past 12 Hours) Vital Signs Temp Pulse Pulse Resp BP Pulse Ox O2 Del Method 07/08/22 16:51 80 07/08/22 16:10 97.9 F 80 80 H 117/77 96 Room Air 07/08/22 16:00 80 07/08/22 08:00 80 07/08/22 08:00 Room Air, Nasal Cannula 07/08/22 11:22 97.9 F 80 20 136/79 96 Nasal Cannula 07/08/22 07:30 97.3 F L 79 18 126/82 93 Nasal Cannula O2 Flow Rate 07/08/22 16:51 07/08/22 16:10 07/08/22 16:00 07/08/22 08:00 07/08/22 08:00 2 07/08/22 11:22 2 07/08/22 07:30 2 PG Care Time/CCT Total # of Minutes Spent Total Time Spent with Patient: Total time spent is greater than 50% in coordination of care (as documented) at patient's floor/unit and/or counseling patient: Coding Level of Care Code 99103 Subseq Hosp Care Lvl 3 Diagnoses HFrEF (heart failure with reduced ejection fraction) I50.20 Pleural effusion J90 PAF (paroxysmal atrial fibrillation) I48.0 DM II (diabetes mellitus, type II), controlled E11.21; Z79.4 Diabetes mellitus rn long term care insulin use: with rn long term care use Diabetes mellitus complication status: with kidney complications Diabetes mellitus complication detail: with nephropathy Valvular heart disease I38 Depression F32.A CKD (chronic kidney disease) stage 4, GFR 15-29 ml/min N18.4 S/P carotid endarterectomy Z98.890 Breast cancer, right C50.911 Pulmonary hypertension I27.20 Biventricular ICD (implantable cardioverter-defibrillator) in place Z95.810 (1) DM II (diabetes mellitus, type II), controlled Diabetes mellitus longterm insulin use: with longterm use Diabetes mellitus complication status: with kidney complications Diabetes mellitus complication detail: with nephropathy Qualified Code(s): E11.21 - Type 2 diabetes mellitus with diabetic nephropathy; Z79.4 - terminal operations supervisor (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
[2022-07-08] MEDS: LIDOCAINE 5% 1 PATCH TD SCH (20:15)
[2022-07-09 06:23] LABS: Hematocrit (blood only) 44.4 % (34.1-44.9); Hemoglobin 14.8 g/dl (12.0-16.0); Mean Corpuscular Hemoglobin 33.6 pg (25.0-34.0); Mean Corpuscular Hgb Conc 33.3 g/dL (32.0-36.0); Mean Corpuscular Volume 100.9 fL (80.0-100.0); Mean Platelet Volume 10.6 fL (9.4-12.3); Platelet Count 274 K/uL (130-400); RDW Coefficient of Variation 12.8 % (11.5-14.5); RDW Standard Deviation 48.4 fL (36.4-46.3); White Blood Count 8.46 K/ul (4.8-10.8)
[2022-07-09 07:24] LABS: BUN Creatinine Ratio 18.1 (10-20); Calcium 9.2 mg/dl (8.5-10.1); Creatinine Clr Calc Pharmacy 23.8 ml/min; Est GFR (African American) 27.4 ml/min; Est GFR (Non-African American) 23.7 ml/min; Magnesium 2.1 mg/dl (1.7-2.4); Potassium 4.4 mmol/L (3.5-5.1)
[2022-07-09] MEDS: RANOLAZINE 500 MG ER TAB PO SCH ×2 (09:02→20:19)
[2022-07-09] MEDS: LEVOTHYROXINE SODIUM 75 MCG TABLET PO SCH (09:02)
[2022-07-09] MEDS: ANASTROZOLE 1 MG TAB PO SCH (09:02)
[2022-07-09] MEDS: PANTOprazole 40 MG TAB PO SCH ×2 (09:02→20:18)
[2022-07-09] MEDS: BUMETANIDE 1 MG in SYRINGE 0 ML IV SCH (09:02)
[2022-07-09] MEDS: TICAGRELOR 90 MG TAB PO SCH ×2 (09:02→20:19)
[2022-07-09] MEDS: VALSARTAN/SACUBITRIL 26/24MG TAB PO SCH ×2 (09:02→20:19)
[2022-07-09] MEDS: TOCOPHERYL, DL-ALPHA 400 UNITS 180 MG CAP PO SCH (09:03)
[2022-07-09] MEDS: carvediloL 3.125 MG TAB PO SCH ×2 (09:03→20:17)
[2022-07-09] MEDS: APIXABAN 2.5 MG TAB PO SCH ×2 (09:03→20:17)
[2022-07-09] MEDS: SERTRALINE HCL 50 MG TABLET PO SCH (09:03)
[2022-07-09] MEDS: INSULIN ASPART PER UNIT SC SCH ×4 (09:09→20:16)
[2022-07-09] MEDS: LANTUS PER UNIT CHARGE SQ SCH ×2 (09:09→20:16)
--- NOTE | 2022-07-09 13:58 | Hospitalist Progress Note ---
Date of Service July 09, 2022 Assessment & Plan (1) HFrEF (heart failure with reduced ejection fraction): Plan: S/p AV node ablation 4 days ago. Thoracentesis on 07/01 . Known ejection fraction of 30 to 35%. Currently on intravenous Bumex. We will repeat chest x- ray today to reassess pulmonary status. Hopefully she can go home tomorrow. No evidence of acute MT. Allergic to aspirin, she is maintained on Plavix with Eliquis. Intolerance to HERMELINDO/ARB due to CKD. Continue Entresto ,carvedilol, Ranexa, Brilinta , Eliquis dose has been reduced. Patient allergic to aspirin (2) Pleural effusion: Plan: S/p ultrasound-guided thoracentesis 07/01/2022, 1350 cc serous material removed. Suspect due to CHF. (3) PAF (paroxysmal atrial fibrillation): Plan: recent hospitalization requiring cardioversion. S/p AV node ablation 06/30/2022. Treated with digoxin, carvedilol, Eliquis . Amiodarone has been d iscontinued following her ablation. Telemetry (4) DM II (diabetes mellitus, type II), controlled: Plan: ADA diet. Basal insulin therapy. Sliding scale coverage as needed (5) Valvular heart disease: Plan: S/p Tavr for Severe (6) Depression: Plan: Continue sertraline and trazodone (7) CKD (chronic kidney disease) stage 4, GFR 15-29 ml/min: Plan: Monitor intake and output. Serial lab studies (8) S/P carotid endarterectomy: Plan: Continue current medical management (9) Breast cancer, right: Plan: History of breast cancer. Continue anastrozole 1 mg p.o. every morning (10) Pulmonary hypertension: Plan: By history. (11) Biventricular ICD (implantable cardioverter-defibrillator) in place: Plan: By history Plan DVT prophylaxis: Eliquis CODE STATUS: DNR/DNI Disposition: Eventual discharge to home. Hopefully tomorrow, July 10 Admission and Anticipated Discharge Date Admission Date: July 08, 2022 Subjective Alert and oriented. No complaints. She is on room air. Creatinine stable at 1.9. Will obtain repeat chest x-ray today to evaluate CHF. Continue intravenous Bumex. Hopefully she can go home tomorrow, July 10 if cleared by cardiology Review of Systems Review of Systems: Constitutional-no fever or chills ENT-no blurred vision, no double vision, no epistaxis, no sore throat Respiratory-no cough, no wheezing, no shortness of breath at rest Cardiac-no palpitations, no chest pain, no syncope GI-no nausea, vomiting, diarrhea, melena, hematochezia -no urinary retention, no urinary incontinence, no dysuria, no hematuria Musculoskeletal-no joint pain, no muscle tenderness Skin-no bruising, no rashes, no pruritus Neuro-no isolated weakness, no paresthesia, no weakness Psych-no depression, no anxiety Physical Exam Physical Exam: General-alert and oriented x3, no fevers, no chills HEENT-head atraumatic and normocephalic, pupils equal and reactive to light, extraocular muscles intact Neck-no lymphadenopathy or thyromegaly, trachea midline Chest-faint bibasilar inspiratory rales. No dullness. No rhonchi Cardiac-regular rate and rhythm, normal S1 and S2 Abdomen-normal bowel sounds, nontender, no hepatosplenomegaly Extremities-no cyanosis, clubbing, or edema Neuro-cranial nerves II through XII intact, motor and sensory function within normal limits, strength symmetrical , no focal deficits Psych-normal affect, normal mood Results & Data Results & Data ([facility]) Vital Signs (Past 12 Hours) Vital Signs Temp Pulse Resp BP Pulse Ox O2 Del Method 07/09/22 12:09 36 C L 82 18 129/75 93 Room Air 07/09/22 08:00 Room Air 07/09/22 07:30 36.7 C 86 18 131/74 90 Room Air 07/09/22 03:22 36.5 C 81 18 103/62 94 Room Air Laboratory Results 07/09/22 06:05 07/09/22 06:05 PG Care Time/CCT Total # of Minutes Spent Total Time Spent with Patient: Total time spent is greater than 50% in coordination of care (as documented) at patient's floor/unit and/or counseling patient: Coding Level of Care Code 95528 Subseq Hosp Care Lvl 3 Diagnoses HFrEF (heart failure with reduced ejection fraction) I50.20 Pleural effusion J90 PAF (paroxysmal atrial fibrillation) I48.0 DM II (diabetes mellitus, type II), controlled E11.21; Z79.4 Diabetes mellitus intermediate frame tender insulin use: with intermediate frame tender use Diabetes mellitus complication status: with kidney complications Diabetes mellitus complication detail: with nephropathy Valvular heart disease I38 Depression F32.A CKD (chronic kidney disease) stage 4, GFR 15-29 ml/min N18.4 S/P carotid endarterectomy Z98.890 Breast cancer, right C50.911 Pulmonary hypertension I27.20 Biventricular ICD (implantable cardioverter-defibrillator) in place Z95.810 (1) DM II (diabetes mellitus, type II), controlled Diabetes mellitus intermediate frame tender insulin use: with intermediate frame tender use Diabetes mellitus complication status: with kidney complications Diabetes mellitus complication detail: with nephropathy Qualified Code(s): E11.21 - Type 2 diabetes mellitus with diabetic nephropathy; Z79.4 - adjunct faculty for medical terminology (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
--- NOTE | 2022-07-09 15:18 | XRay Report ---
XR chest 2V PA/lateral HISTORY: 81 years-old Female CHF acute shortness of breath COMPARISON: 07/04/2022 TECHNIQUE: PA and lateral views of the chest FINDINGS: Cardiac silhouette is enlarged. Left subclavian pacer/AICD with aortic valvular endograft. Atheroscle rosis of aorta. No pneumothorax. Right greater than left pleural effusions have decreased in size fro m the prior study. Mild improvement of the bibasilar airspace opacities with decreased pulmonary rama a. Coronary arterial stenting. Degenerative changes of the shoulders and spine. IMPRESSION: 1. Cardiomegaly with moderately improved pulmonary edema. 2. Decreased size of the right greater than left pleural effusions with decreased bibasilar consolida tion. ACT 112: Negative or not required by law. The above report was generated using voice recognition software. It may contain grammatical, syntax o r spelling errors. Electronically signed by: Irving Lerner M.D. 07/09/2022 3:17 PM
[2022-07-09] MEDS: LIDOCAINE 5% 1 PATCH TD SCH (20:18)
[2022-07-10 07:05] LABS: Hematocrit (blood only) 40.5 % (34.1-44.9); Hemoglobin 13.3 g/dl (12.0-16.0); Mean Corpuscular Hemoglobin 33.3 pg (25.0-34.0); Mean Corpuscular Hgb Conc 32.8 g/dL (32.0-36.0); Mean Corpuscular Volume 101.5 fL (80.0-100.0); Mean Platelet Volume 10.2 fL (9.4-12.3); Platelet Count 254 K/uL (130-400); RDW Coefficient of Variation 12.9 % (11.5-14.5); RDW Standard Deviation 48.5 fL (36.4-46.3); Red Blood Count 3.99 M/uL (3.93-5.22); White Blood Count 6.95 K/ul (4.8-10.8)
[2022-07-10 07:30] LABS: Calcium 8.7 mg/dl (8.5-10.1); Magnesium 2.1 mg/dl (1.7-2.4); Potassium 4.2 mmol/L (3.5-5.1)
[2022-07-10 07:36] LABS: BUN Creatinine Ratio 18.2 (10-20); Creatinine Clr Calc Pharmacy 23.2 ml/min; Est GFR (African American) 26.6 ml/min
[2022-07-10] MEDS: RANOLAZINE 500 MG ER TAB PO SCH ×2 (08:50→20:55)
[2022-07-10] MEDS: TICAGRELOR 90 MG TAB PO SCH ×2 (08:50→21:00)
[2022-07-10] MEDS: VALSARTAN/SACUBITRIL 26/24MG TAB PO SCH ×2 (08:50→20:55)
[2022-07-10] MEDS: PANTOprazole 40 MG TAB PO SCH ×2 (08:50→20:53)
[2022-07-10] MEDS: SERTRALINE HCL 50 MG TABLET PO SCH (08:51)
[2022-07-10] MEDS: APIXABAN 2.5 MG TAB PO SCH ×2 (08:51→20:54)
[2022-07-10] MEDS: carvediloL 3.125 MG TAB PO SCH ×2 (08:51→20:54)
[2022-07-10] MEDS: TOCOPHERYL, DL-ALPHA 400 UNITS 180 MG CAP PO SCH (08:52)
[2022-07-10] MEDS: ANASTROZOLE 1 MG TAB PO SCH (08:52)
[2022-07-10] MEDS: LANTUS PER UNIT CHARGE SQ SCH ×2 (08:53→20:54)
[2022-07-10] MEDS: BUMETANIDE 1 MG in SYRINGE 0 ML IV SCH (08:53)
[2022-07-10] MEDS: INSULIN ASPART PER UNIT SC SCH ×4 (09:01→20:54)
[2022-07-10] MEDS: LEVOTHYROXINE SODIUM 75 MCG TABLET PO SCH (11:44)
--- NOTE | 2022-07-10 14:34 | Hospitalist Progress Note ---
Date of Service July 10, 2022 Assessment & Plan (1) HFrEF (heart failure with reduced ejection fraction): Plan: S/p AV node ablation recently. Thoracentesis on 07/01 . Known ejection fraction of 30 to 35%. Currently on intravenous Bumex. Repeat chest x-ray c ompleted on July 09 looks better. No evidence of acute CT. Allergic to aspirin, she is maintained on Plavix with Eliquis. Intolerance to HERMELINDO/ARB due to CKD. Continue Entresto ,carvedilol, Ranexa, Brilinta , Eliquis dose has been reduced. Patient allergic to aspirin (2) Pleural effusion: Plan: S/p ultrasound-guided thoracentesis 07/01/2022, 1350 cc serous material removed. Suspect due to CHF. (3) PAF (paroxysmal atrial fibrillation): Plan: recent hospitalization requiring cardioversion. S/p AV node ablation 06/30/2022. Treated with digoxin, carvedilol, Eliquis . Amiodarone has been discontinued following her ablation. Telemetry (4) DM II (diabetes mellitus, type II), controlled: Plan: ADA diet. Basal insulin therapy. Sliding scale coverage as needed (5) Valvular heart disease: Plan: S/p Tavr for Severe (6) Depression: Plan: Continue sertraline and trazodone (7) CKD (chronic kidney disease) stage 4, GFR 15-29 ml/min: Plan: Monitor intake and output. Serial lab studies (8) S/P carotid endarterectomy: Plan: Continue current medical management (9) Breast cancer, right: Plan: History of breast cancer. Continue anastrozole 1 mg p.o. every morning (10) Pulmonary hypertension: Plan: By history. (11) Biventricular ICD (implantable cardioverter-defibrillator) in place: Plan: By history Plan DVT prophylaxis: Eliquis CODE STATUS: DNR/DNI Disposition: Eventual discharge to home. Hopefully tomorrow, July 11 Admission and Anticipated Discharge Date Admission Date: July 08, 2022 Subjective Alert and oriented. Chest x-ray done July 09 looks better. Creatinine stable at 1.9. Bumex dosage uptitrated today, July 10. Hopefully she can go home tomorrow. Review of Systems Review of Systems: Constitutional-no fever or chills ENT-no blurred vision, no double vision, no epistaxis, no sore throat Respiratory-no cough, no wheezing, no shortness of breath at rest Cardiac-no palpitations, no chest pain, no syncope GI-no nausea, vomiting, diarrhea, melena, hematochezia -no urinary retention, no urinary incontinence, no dysuria, no hematuria Musculoskeletal-no joint pain, no muscle tenderness Skin-no bruising, no rashes, no pruritus Neuro-no isolated weakness, no paresthesia, no weakness Psych-no depression, no anxiety Physical Exam Physical Exam: General-alert and oriented x3, no fevers, no chills HEENT-head atraumatic and normocephalic, pupils equal and reactive to light, extraocular muscles intact Neck-no lymphadenopathy or thyromegaly, trachea midline Chest-faint bibasilar inspiratory rales. No dullness. No rhonchi Cardiac-regular rate and rhythm, normal S1 and S2 Abdomen-normal bowel sounds, nontender, no hepatosplenomegaly Extremities-no cyanosis, clubbing, or edema Neuro-cranial nerves II through XII intact, motor and sensory function within normal limits, strength symmetrical , no focal deficits Psych-normal affect, normal mood Results & Data Results & Data ([facility]) Vital Signs (Past 12 Hours) Vital Signs Temp Pulse Resp BP Pulse Ox O2 Del Method 07/10/22 08:00 Room Air 07/10/22 11:21 36.3 C L 83 20 141/83 H 92 Room Air 07/10/22 07:17 36.3 C L 81 18 127/72 92 Room Air 07/10/22 03:00 36.5 C 84 16 114/69 92 Room Air Laboratory Results 07/10/22 06:43 07/10/22 06:43 PG Care Time/CCT Total # of Minutes Spent Total Time Spent with Patient: Total time spent is greater than 50% in coordination of care (as documented) at patient's floor/unit and/or counseling patient: Coding Level of Care Code 64392 Subseq Hosp Care Lvl 3 Diagnoses HFrEF (heart failure with reduced ejection fraction) I50.20 Pleural effusion J90 PAF (paroxysmal atrial fibrillation) I48.0 DM II (diabetes mellitus, type II), controlled E11.21; Z79.4 Diabetes mellitus roasterman insulin use: with custodial use Diabetes mellitus complication status: with kidney complications Diabetes mellitus complication detail: with nephropathy Valvular heart disease I38 Depression F32.A CKD (chronic kidney disease) stage 4, GFR 15-29 ml/min N18.4 S/P carotid endarterectomy Z98.890 Breast cancer, right C50.911 Pulmonary hypertension I27.20 Biventricular ICD (implantable cardioverter-defibrillator) in place Z95.810 (1) DM II (diabetes mellitus, type II), controlled Diabetes mellitus custodial insulin use: with roasterman use Diabetes mellitus complication status: with kidney complications Diabetes mellitus complication detail: with nephropathy Qualified Code(s): E11.21 - Type 2 diabetes mellitus with diabetic nephropathy; Z79.4 - medical terminologist (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
[2022-07-10] MEDS: BUMETANIDE 2 MG in SYRINGE 0 ML IV SCH (20:20)
[2022-07-10] MEDS: LIDOCAINE 5% 1 PATCH TD SCH (20:55)
[2022-07-11 06:12] LABS: Hematocrit (blood only) 40.3 % (34.1-44.9); Hemoglobin 13.4 g/dl (12.0-16.0); Mean Corpuscular Hemoglobin 33.3 pg (25.0-34.0); Mean Corpuscular Hgb Conc 33.3 g/dL (32.0-36.0); Mean Platelet Volume 10.7 fL (9.4-12.3); Platelet Count 273 K/uL (130-400); RDW Coefficient of Variation 12.7 % (11.5-14.5); RDW Standard Deviation 47.2 fL (36.4-46.3); Red Blood Count 4.03 M/uL (3.93-5.22); White Blood Count 7.71 K/ul (4.8-10.8)
[2022-07-11 06:42] LABS: BUN Creatinine Ratio 17.2 (10-20); Calcium 8.7 mg/dl (8.5-10.1); Creatinine Clr Calc Pharmacy 22.5 ml/min; Est GFR (African American) 25.7 ml/min; Est GFR (Non-African American) 22.1 ml/min
[2022-07-11] MEDS: INSULIN ASPART PER UNIT SC SCH ×2 (08:51→12:25)
[2022-07-11] MEDS: ANASTROZOLE 1 MG TAB PO SCH (08:56)
[2022-07-11] MEDS: VALSARTAN/SACUBITRIL 26/24MG TAB PO SCH (08:58)
[2022-07-11] MEDS: APIXABAN 2.5 MG TAB PO SCH (09:00)
[2022-07-11] MEDS: LEVOTHYROXINE SODIUM 75 MCG TABLET PO SCH (09:01)
[2022-07-11] MEDS: TOCOPHERYL, DL-ALPHA 400 UNITS 180 MG CAP PO SCH (09:01)
[2022-07-11] MEDS: carvediloL 3.125 MG TAB PO SCH (09:01)
[2022-07-11] MEDS: SERTRALINE HCL 50 MG TABLET PO SCH (09:01)
[2022-07-11] MEDS: PANTOprazole 40 MG TAB PO SCH (09:01)
[2022-07-11] MEDS: TICAGRELOR 90 MG TAB PO SCH (09:02)
[2022-07-11] MEDS: RANOLAZINE 500 MG ER TAB PO SCH (09:02)
[2022-07-11] MEDS: BUMETANIDE 2 MG in SYRINGE 0 ML IV SCH (09:04)
[2022-07-11] MEDS: LANTUS PER UNIT CHARGE SQ SCH (09:06)
--- NOTE | 2022-07-11 10:43 | Discharge Summary ---
Date of Service July 11, 2022 Admission HPI Per Admitting Provider Ban is a 81-year-old female who presents with worsening chest pain and shortness of breath. S/p ablation 4 days ago. ER Review: No leukocytosis Hemoglobin normal, 13.4. MCV is increased to 102 Sodium normal, potassium 4.2 Baseline creatinine 1.72.1, admitting creatinine 1.92 No transaminitis Magnesium normal High-sensitivity troponin 60.1 Lipase 13 COVID-negative CXR: Cardiomegaly with worsening pulmonary edema, right greater than left layering pleural effusions with mild bibasilar consolidation worsened from prior EKG: Ventricular paced rhythm per Pt Short of breath since monday afternoon Had an appt with Dr Alvarenga this morning and was recommended for ER evaluation Had an ablation for afib last , and on Monday had a RIGHT pleural effusion drained Inititally felt OK monday after the thoracentesis, but Monday after lunch shortness of breath started to worsen Had soup Sat/Sun, but made it herself and no salt. Has been avoiding salt No chest pain at tiem of assessment. She reprots prior to arrival was having some chest pain just on the way over while in the ambulance. Was in her L chest and went across her arm into the elbow. Started senior care on the way over in the ambulance and went away on its own in the ER. No fevers, chills, or sweats +fatigue No chest pain prior to this morning Has been sleeping elevated due to orthopnea for several years. Hasnt sleeping much in the bed, has been sleeping in the recliner due to increased orthopnea. +S<. NO leg edema. L leg ulcer Medical History: Reviewed Medications: Reviewed Surgical History: Reviewed Allergies: Reviewed Social History: Reviewed Code Status:DNR/DNI Principal Diagnosis Acute on chronic systolic heart failure Chronic kidney disease stage IV Discharge Exam The patient appeared stable Vital signs as documented. Lungs are with rales at the bases that clear with deep inspiration, appear unlabored Cardiac exam, Rhythm is regular. Rate controlled. Abdominal exam reveals normal bowel sounds, soft non tender, no masses Extremities are with trace edema and both pedal pulses are normal. Neurologic exam is alert and oriented, no focal loss of strength or sensation Skin is without bruises or rashes Psychologically is without concerns for anxiety or depression. Discharge Data Allergies Allergy/AdvReac Type Severity Reaction Status Date / Time adhesive Allergy Intermediate REDNESS Verified 07/04/22 09:16 AND IRRITATION FROM PAIN PATCH, TAPE latex Allergy Intermediate ALLERGIC Verified 07/04/22 09:16 TO LATEX TAPE/RASH/ITCHING morphine Allergy Intermediate swelling Verified 07/04/22 09:16 nausea vomiting olmesartan Allergy Unknown UNKNOWN Verified 07/04/22 09:16 benzonatate AdvReac Intermediate confusion Verified 07/04/22 09:16 [From Tessalon Perlluis fernando] dulaglutide [From Trulicity] AdvReac Intermediate AFFECTS Verified 07/04/22 09:16 MUSCLES exenatide [From Byetta] AdvReac Intermediate Diarrhea Verified 07/04/22 09:16 ezetimibe AdvReac Intermediate MUSCLE Verified 07/04/22 09:16 ACHES glipizide AdvReac Intermediate Diarrhea Verified 07/04/22 09:16 glyburide AdvReac Intermediate Diarrhea Verified 07/04/22 09:16 lisinopril AdvReac Intermediate LIGHTHEADED Verified 07/04/22 09:16 AND DIZZY losartan AdvReac Intermediate dizziness Verified 07/04/22 09:16 metformin AdvReac Intermediate Diarrhea Verified 07/04/22 09:16 pioglitazone AdvReac Intermediate DIARRHEA Verified 07/04/22 09:16 NAUSEA sitagliptin [From Januvia] AdvReac Intermediate Diarrhea Verified 07/04/22 09:16 Qtbbwjr-ZPC-HgY Reductase AdvReac Intermediate myalgias Verified 07/04/22 09:16 Inhibitor and [[place]-Tmo-Tzu Reductase weakness Inhibitor] aspirin AdvReac Mild GI SYMPTOMS Verified 07/04/22 09:16 Consultations 07/04/22 12:37 ED Decision to Admit Stat 07/05/22 07:38 [facility] [place] Ordered Studies Chest X-Ray 07/04/22 11:20 XR chest 1V portable HISTORY: 81 years-old Female chest pain, sob acute atypical chest pain with shortness of breath COMPARISON: Chest radiograph 07/01/2022 TECHNIQUE: Portable AP view of the chest FINDINGS: Cardiac silhouette is enlarged. Left subclavian pacer/AICD. Aortic valvular endograft. Coronary arterial stents. Atherosclerosis of the aorta. No pneumothorax. Layering pleural effusions, right greater than left with bibasilar consolidation. Pulmonary vascular congestion with interstitial coarsening. Degenerative changes of the shoulders and spine. IMPRESSION: 1. Cardiomegaly with worsening pulmonary edema. 2. Right greater than left layering pleural effusions with mild bibasilar consolidation, progressed from prior. ACT 112: Negative or not required by law. The above report was generated using voice recognition software. It may contain grammatical, syntax or spelling errors. Electronically signed by: Irving Lerner M.D. 07/04/2022 11:36 AM Chest X-Ray 07/09/22 13:55 XR chest 2V PA/lateral HISTORY: 81 years-old Female CHF acute shortness of breath COMPARISON: 07/04/2022 TECHNIQUE: PA and lateral views of the chest FINDINGS: Cardiac silhouette is enlarged. Left subclavian pacer/AICD with aortic valvular endograft. Atherosclerosis of aorta. No pneumothorax. Right greater than left pleural effusions have decreased in size from the prior study. Mild improvement of the bibasilar airspace opacities with decreased pulmonary edema. Coronary arterial stenting. Degenerative changes of the shoulders and spine. IMPRESSION: 1. Cardiomegaly with moderately improved pulmonary edema. 2. Decreased size of the right greater than left pleural effusions with decreased bibasilar consolidation. Electronically signed by: Irving Lerner M.D. 07/09/2022 3:17 PM Hospital Course (1) HFrEF (heart failure with reduced ejection fraction): S/p AV node ablation recently. Thoracentesis on 07/01 . Known ejection fraction of 30 to 35%. Currently on intravenous Bumex. Repeat chest x-ray completed on July 09 looks better. No evidence of acute IA. Allergic to aspirin, she is maintained on Plavix with Eliquis. Intolerance to HERMELINDO/ARB due t o CKD. Patient's creatinine did tolerate Entresto so we will continue Entresto ,carvedilol, Ranexa, Brilinta , Eliquis dose has been reduced. Carvedilol dose has been reduced patient allergic to aspirin (2) Pleural effusion: S/p ultrasound-guided thoracentesis 07/01/2022, 1350 cc serous material removed. Suspect due to CHF. (3) PAF (paroxysmal atrial fibrillation): recent hospitalization requiring cardioversion. S/p AV node ablation 06/30/2022. Treated with digoxin, carvedilol, Eliquis . Amiodarone has been discontinued following her ablation. Telemetry (4) DM II (diabetes mellitus, type II), controlled: ADA diet. resume home diabetic management (5) Valvular heart disease: S/p Tavr for Severe (6) Depression: Continue sertraline and trazodone (7) CKD (chronic kidney disease) stage 4, GFR 15-29 ml/min: Stable after starting Entresto (8) S/P carotid endarterectomy: Continue current medical management (9) Breast cancer, right: History of breast cancer. Continue anastrozole 1 mg p.o. every morning (10) Pulmonary hypertension: By history. (11) Biventricular ICD (implantable cardioverter-defibrillator) in place: By history Plan CODE STATUS: DNR/DNI Total Time Total Time Spent Total Time Spent (In Minutes): It required greater than 30 minutes to prepare this patient for discharge Discharge Plan Discharge Items Patient Disposition: Home - Self-Care Reason For Visit: SOB Discharge Diagnosis: acute systoic heart failure Activity: Resume your previous activity Non-emergency contact: Primary Care Provider and Hydrogeology Professor Follow-up/Referrals: Ebony Alvarenga DO [Primary Care Provider] - Latrice Mcmanus PA-C [Physician Chemical Preparer] - 07/14/22 9:30 am Diet: Low Sodium (2gm) Addtl Attending Provider Instructions: 2 changes in your medicines, Carvedilol (Coreg) will be the same dose in the morning and night, 3.25. The new medicine is Entresto (sacubitril-valsartan) this is twice a day. your "water pill" Bumex will be 2mg twice a day Call 911 and go to the Emergency Room if: * You have tightness or pain in your chest that does not go away with rest or Nitroglycerin * You are very short of breath even with rest Call your doctor if any of the following symptoms or problems start or get worse: * Shortness of breath or difficulty breathing * Wake up at night short of breath * Chest pain * Cough * Swelling of your hands, fee, or legs * More fatigued or tired with your normal activity * Palpitations - sudden fast heart beats WEIGHT * Weigh yourself every morning after using the bathroom. * Use the same scale. * Wear the same amount of clothing. * Write your weight down on your chart. * Call your doctor if you gain more than 2-3 pounds in 1-2 days. MEDICATIONS * Use this discharge instruction sheet for instructions. * Take your medications at the time your doctor ordered. * Do not skip a dose of your medicines. * If you miss a dose of medicine, take as soon as possible, but DO NOT DOUBLE A DOSE. * Read your medicine information when you get home. * Know all of the side effects of your medicine. * Call your doctor's office if you have any side effects. * Be sure all of your doctors know what medicine and herbs you take (including cold, flu, and herbal medicine). * Pain Medicine: If you do not get relief from your pain, please call your doctor for help. Take the following with you to your follow-up doctor appointments: * Weight Chart * Medication List * List of questions Do not drink excessive alcohol, beer or wine. Pending Studies at Discharge: No Stand-Alone Forms: [facility], Smoking Cessation Medications and DC Order Prescriptions: New Entresto 24-26 mg Tablet 1 tab PO BID Qty: 60 4RF Continued cholecalciferol (vitamin D3) 25 mcg (1,000 unit) capsule 1,000 unit PO QAM carvedilol 3.125 mg tablet 3.125 mg PO QAM Qty: 90 3RF Rx Instructions: must administer with a meal/food Brilinta 90 mg tablet 90 mg PO BID Qty: 180 3RF (DME) insulin syringe-needle U-100 [BD SafetyGlide Insulin Syringe] 0.3 mL 31 gauge x 5/16" syringe See Rx Instructions .Route Qty: 100 3RF Rx Instructions: test three times daily ranolazine [Ranexa] 500 mg tablet extended release 12 hr 500 mg PO BID Qty: 180 3RF levothyroxine 75 mcg tablet 75 mcg PO QAM Qty: 90 1RF Eliquis 2.5 mg tablet 2.5 mg PO BID Qty: 60 11RF digoxin 125 mcg (0.125 mg) tablet 125 mcg PO 3XWK Qty: 36 1RF Rx Instructions: MONDAY/MONDAY/MONDAY IN THE AM insulin asp prt-insulin aspart [Novolog Mix 70-30 U-100 Insuln] 100 unit/mL (70-30) solution 15 - 30 unit SUBCUT AMPM Qty: 30 1RF Rx Instructions: Per home sliding scale calcitriol [Rocaltrol] 0.25 mcg capsule 0.25 mcg PO 3XWK Qty: 12 1RF Rx Instructions: MONDAY/MONDAY/MONDAY/ IN THE AM pantoprazole [Protonix] 40 mg tablet,delayed release (DR/EC) 40 mg PO BID Qty: 180 1RF trazodone 50 mg tablet 50 mg PO HS PRN (Reason: insomnia) Qty: 90 1RF ondansetron HCl 4 mg tablet 4 mg PO Q8H PRN (Reason: nausea and vomiting) Qty: 30 0RF magnesium oxide 400 mg magnesium capsule 400 mg PO QPM Qty: 90 0RF anastrozole [Arimidex] 1 mg tablet 1 mg PO QAM (DME) Xeroform See Rx Instructions .Route .MEDSUPPLY Qty: 30 5RF Rx Instructions: Apply to open area daily; (DME) hydrofera blue Ready Foam Dressing See Rx Instructions .Route .MEDSUPPLY Qty: 30 0RF Rx Instructions: As directed ascorbate calcium (vitamin C) 500 mg tablet 500 mg PO DAILY potassium gluconate 595 mg (99 mg) tablet 595 mg PO DAILY sertraline 25 mg tablet 25 mg PO DAILY Qty: 30 2RF vitamin E 400 unit capsule 400 unit PO QAM polyethylene glycol 3350 [Miralax] 17 gram/dose Powder 17 g PO HS garlic 1,000 mg capsule 1,000 mg PO QPM amiodarone 200 mg tablet 200 mg PO QPM bumetanide 1 mg tablet 2 mg PO BID Qty: 120 3RF Rx Instructions: May increase to 3 mg BID for edema, swelling, weight gain. Changed carvedilol [Coreg] 6.25 mg tablet 3.125 mg PO HS Qty: 30 0RF Discharge Orders: Discharge Order (Routine); Ordered 07/11/22 Ordered By: John Downing Admission Data Admit Date/Time: 07/08/22 09:52 Attending Provider: Bhanu Rueda Admit Provider: Kin Lopez Primary Care Provider: Ebony Alvarenga Other Providers: Kin Lopez ; Latrice Mcmanus Coding Level of Care Code D/C DAY MANAGEMENT >30 MINS Diagnoses HFrEF (heart failure with reduced ejection fraction) I50.20 Pleural effusion J90 PAF (paroxysmal atrial fibrillation) I48.0 DM II (diabetes mellitus, type II), controlled E11.21; Z79.4 Diabetes mellitus complication detail: with nephropathy Diabetes mellitus complication status: with kidney complications Diabetes mellitus usp insulin use: with extermination inspector use Valvular heart disease I38 Depression F32.A CKD (chronic kidney disease) stage 4, GFR 15-29 ml/min N18.4 S/P carotid endarterectomy Z98.890 Breast cancer, right C50.911 Pulmonary hypertension I27.20 Biventricular ICD (implantable cardioverter-defibrillator) in place Z95.810
--- NOTE | 2022-07-11 14:33 | Heart Failure Progress Note ---
Date of Service July 11, 2022 Assessment & Plan (1) HFrEF (heart failure with reduced ejection fraction): (2) Mitral regurgitation: (3) Pulmonary hypertension: (4) S/P coronary artery stent placement: (5) Ischemic cardiomyopathy: (6) Biventricular ICD (implantable cardioverter-defibrillator) in place: (7) S/P TAVR (transcatheter aortic valve replacement): (8) CAD (coronary artery disease): (9) PAD (peripheral artery disease): (10) Bilateral carotid artery stenosis: Plan 1. Acute on chronic HFrEF: She appears near euvolemic today. Clinically she seems improved today and is closer to baseline. She did have reaccumulation of her pleural effusion with intermittent hypoxia. O2 sats stable on room air. Repeat CXR with resolving pulmonary edema and decreased effusion. Her weight is below baseline, however she reports poor appetite over several weeks and dry weight may be lower than previously thought. Kidney function is stable. Would continue to optimize her volume status. Recommend Bumex 2 mg PO on discharge. Also anticipate some mild diuretic effect from Entresto. Could also consider adding Spironolactone for additional diuresis and also HF benefits. Would recommend slow, cautious med changes/titration due to her previous issues with orthostasis. Encourage strict documentation of I&Os with a goal of at least 1-2 L negative per day. Discussed with nursing this am. Continue to monitor kidney function and electrolytes. She should continue daily standing weights. Dry weight 188 lb. Low-sodium diet was recommended, less than 2000 mg. 2. Ischemic Cardiomyopathy: LV ejection fraction 30-35%.This is a slight decline from previous studies but she does wax/wane between 25-45% over the years. She has documented intolerance to HERMELINDO/ARBs in the past due to chronic kidney disease. She had symptomatic hypotension in the past as well. Losartan had been discontinued due to orthostatic symptoms. Entresto initiated and seems to be well tolerated so far. Continue careful monitoring of kidney function and BP. Continue Carvedilol.Unable to tolerate higher doses due to lightheadedness. Continue medical therapy. She is not a candidate for SGLT2 with GFR < 30. She has a biventricular device. 3. Hypokalemia: Continue monitoring and current medical therapy. 4. Paroxysmal Atrial fibrillation/flutter: s/p AV node ablation. Continue rate control with Digoxin and Carvedilol. Amiodarone recently discontinued after ablation. Continue Eliquis for stroke risk reduction. 5. Hypertension: Well controlled. Continue current regimen. 7. Aortic stenosis- s/p TAVR 8. CAD: No current anginal symptoms. Continue Brillinta, beta venice, and Eliquis per Dr. Bateman. Patient self decreased her Ranexa 9. Pleural effusion: Chronic. Not requiring O2 at this time. Had thoracentesis in March 2020 with clinical improvement. Pulm recommended 1 year follow up with PFTs at that time. Repeat thoracentesis 07/01/22 with almost immediate reaccumulation. Would continue to optimize her diuretics as above and re-assess her clinical response. Could consider pulm consult/Pleur-x if not improving. Patient also with moderate restrictive physiology on PFTs in 2019 which is likely contributing to her dyspnea. Consider 2 step vs 6MWT to see if she would benefit from O2 with ambulation? 10. Mitral regurgitation: Moderate to severe. May be contributing factor. Also in the setting of volume overload. Would consider repeat echo once optimized to reassess. 11. Goals of care:. Patient's main goals are to remain independent in her home, complete ADLs, go to dinner with friends, and be able to maintain her flower garden. She has not been able to do this for several months due to worsening exertional dyspnea. Discussed the fact that this may be her new baseline but will have a better idea in weeks to come if she does not show any clinical improvement despite several hospitalizations. She states she would not be satisfied with her quality of life if this is her new baseline. She does have a living will and the details have been communicated this with her family. Her children are her POAs. We discussed palliative care and that she may benefit from ongoing outpatient discussions regarding goals of care and quality of life/symptom management. She is not interested in pursuing this at this time but is aware of the service. Disposition: Patient for discharge today. Recommend close outpatient follow up with the heart failure program. 07/14/22 at 930am. Admission and Anticipated Discharge Date Admission Date: July 08, 2022 Subjective Patient sitting comfortably at the edge of her bed today. She is feeling improved. She has been ambulating to the bathroom without dyspnea. She denies lower extremity edema. She slept well with her head mildly elevated. She denies cough, palpitations, PND. Weight is 188 lb on standing scale. Bumex 2 mg IV this am. Kidney function and electrolytes are stable. Physical Exam Physical Exam: Constitutional: Alert, oriented, in no acute distress HEENT: Head is atraumatic and normocephalic. EOMs intact. Sclera anicteric. Face is symmetric. No perioral cyanosis. Mucous membranes moist. Neck: Supple, No JVD. - HJR Pulmonary: Normal respiratory effort. Decreased breath sounds at both bases, R >L. Cardiac: Regular rate and rhythm. S1-S2 normal. Grade 1/6 systolic murmur Extremities: Trace pretibial edema bilaterally. No clubbing or cyanosis. Pulses 2+ and symmetric Abdomen: Normal bowel sounds, soft, non-tender, no abdominal mass palpated Skin: Normal skin color, turgor, and pigmentation, no rash, no skin lesions Neurological: Oriented to person, place, and time Results & Data ([facility]) Vital Signs (Past 12 Hours) Vital Signs Temp Pulse Pulse Resp BP Pulse Ox O2 Del Method 07/11/22 11:36 98.1 F 80 16 127/79 92 07/11/22 11:16 98.1 F 80 16 127/79 92 Room Air 07/11/22 05:55 80 07/11/22 08:05 97.5 F L 60 16 150/81 H 94 Room Air 07/11/22 07:50 Room Air 07/11/22 03:21 97.5 F L 78 18 103/65 97 Room Air PG Care Time/CCT Total # of Minutes Spent Total Time Spent with Patient: Total time spent is greater than 50% in coordination of care (as documented) at patient's floor/unit and/or counseling patient: Heart Failure Data/Metrics Heart Failure Type: HFrEf (EF < 40%) Ejection Fraction: 30-35% NYHA classification: III: Sx w/ ltd. activity Risk Stratification: B Bi-V Defibrillator: Yes Diabetes Mellitus: Yes Evidenced Based Beta [place] Therapy Beta [place] Therapy: Yes Beta [place] Name: Carvedilol Beta [place] Target Therapy: Maximum Tolerated Therapy HERMELINDO/ARB/ARNI Therapy HERMELINDO/ARB/ARNI Therapy: Yes HERMELINDO/ARB/ARNI Name: Entresto HERMELINDO/ARB/ARNI Target Therapy: Not at Target Therapy Coding Level of Care Code 25316 Subseq Hosp Care Lvl 3 Diagnoses HFrEF (heart failure with reduced ejection fraction) I50.20 Mitral regurgitation I34.0 Pulmonary hypertension I27.20 S/P coronary artery stent placement Z95.5 Ischemic cardiomyopathy I25.5 Biventricular ICD (implantable cardioverter-defibrillator) in place Z95.810 S/P TAVR (transcatheter aortic valve replacement) Z95.2 CAD (coronary artery disease) I25.10 PAD (peripheral artery disease) I73.9 Bilateral carotid artery stenosis I65.23
== END 2022-07-11 14:30 | disposition home or self-care (01) | DRG 291 ==
LOC: 2N 10:52 → ED 10:52 → SUATTDRO 12:41 → 2N 14:55 → SUATTDRO 07-08 09:52

== ENCOUNTER 2022-12-18 17:01 | Inpatient (IN) ==
[2022-12-18] MEDS ORDERED: SODIUM CHLORIDE 0.9% 1000ML 1,000 ML IV STA (17:28)
[2022-12-18] MEDS ORDERED: ONDANSETRON INJ 2 MG/ML 2 ML VIAL IV STA (17:28)
--- NOTE | 2022-12-18 17:33 | Emergency Department Note ---
Impression & Plan Nausea, vomiting, and diarrhea, Non-ST elevation VA (NSTEMI), Elevated lactic acid level, Acute dehydration ED Provider Note HISTORY OF PRESENT ILLNESS: Patient is an 82-year-old female presenting with generalized abdominal pain, vomiting and diarrhea. Symptoms have been ongoing for the last 4 days. She reports has been unable to tolerate oral intake secondary to persistent vomiting and diarrhea for the 4-day timeframe. She has been unable to tolerate any of her home medications. Denies any fevers. Denies any recent travel. Denies any recent sick contact exposures. Denies any significant chest pain or shortness of breath. She does complain of epigastric burning sensation. Denies any dysuria or hematuria. ROS: as above PHYSICAL EXAM: Constitutional: Patient appears in no acute distress. HENT: Head: Normocephalic and atraumatic. Eyes: EOMI, PERRL Mouth/Throat: Mucous membranes dry. Neck: Trachea midline. Neck supple. Cardiovascular: RRR, No murmurs, rubs or gallops. Intact distal pulses. Pulmonary/Chest: No respiratory distress. Breath sounds clear and equal bilaterally. No wheezes or rales. Abdominal: BS +. Abdomen soft, no tenderness, rebound or guarding. Back: No midline spinal tenderness, no paraspinal tenderness, no CVA tenderness. Musculoskeletal: No edema, tenderness or deformity noted. Skin: Warm and dry. No rash, erythema, pallor or cyanosis Psychiatric: Appropriate mood and affect for situation. Neurological: Alert and keenly responsive. CN II-XII grossly intact, moving all extremities equally and fully. MDM: - Vitals signs showed hypertension. - History obtained via patient. Patient presents with vomiting, diarrhea and abdominal pain. Symptoms ongoing for 4 days. Has been unable to tolerate oral intake for 4 days. Has had generalized abdominal pain. No dysuria or fevers. - Chronic conditions affecting care: hypothyroidism; GERD; DM-2; CKD; COPD; CHF (EF 40%); CAD - Differential diagnoses include, but are not limited to: appendicitis; bowel obstruction; gastroparesis; gastroenteritis; metabolic disorder; pancreatitis; volvulus; viral syndrome - Order placed for continuous cardiac monitoring. At this time, monitor showed rate of 85 bpm with paced rhythm, per my interpretation. - External medical records reviewed. EMS run sheet reviewed. Patient given 4 mg of Zofran and 250 cc normal saline in route to the hospital. - EKG reviewed by myself showed ventricular paced rhythm. - Laboratory workup interpreted by myself showed leukocytosis (WBC 16.57 - likely reactive from vomiting and diarrhea); TRACY on CKD; elevated lactate (2.9); elevated BUN (60); elevated anion gap (13);elevated troponin (74.1); normal lipase - Patient given 1L NS and 4 mg IV zofran in ER. - CT abdomen/pelvis wo contrast obtained and negative for bowel obstruction. Noted to have partially distended large bowel, consistent with nonspecific colitis. Also noted to have trace right pleural effusion. - Discussed results with patient. She is still feeling generally unwell and lives alone and does not feel safe going home. Her NSTEMI is likely secondary to demand ischemia given her GI complaints. She will likely need further rehydration and oral challenge inpatient. - Patient's GI symptoms are likely secondary to a viral etiology. However, given her laboratory work-up suggestive of dehydration, I believe she benefit from inpatient rehydration and reassessment - Discussion was had with social media project manager about patient's case and need for admission. - Hospitalist, Dr. Wilkes, consulted for admission. - Patient admitted to [facility] for further evaluation and management. ASSESSMENT AND PLAN: Diagnosis: vomiting and diarrhea; dehydration; NSTEMI; elevated lactate; TRACY on CKID Plan: admit Past Med/Surg History Medical History (Updated 12/18/22 @ 19:32 by Lucie Kruse MD) Anemia due to chronic kidney disease Antiplatelet or antithrombotic long-term use Aortic stenosis, severe S/p TAVR 10/2019 Bilateral carotid artery stenosis H/o bilateral CEAs in 2016 Per 07/2021 vascular note- carotid ultrasound from office visit showed patent right CEA with velocities suggesting 50-59% stenosis restenosis Patent left CEA with velocities suggesting 99% restenosis - had re-do of left CEA 09/27/21 Biventricular ICD (implantable cardioverter-defibrillator) in place (04/30/20) Med[employer] implanted 04/30/2020. Capped right ventricular pacing lead Last check 09/2021 Breast cancer, right Right breast mastectomy 09/17/21 at [facility] CAD (coronary artery disease) F/U DR CUEVA S/p NATY x 1 to Cx in 2019; NATY to ostial LM 3/27/20 Chronic combined systolic and diastolic CHF (congestive heart failure) EF 40% per 10/16/21 ECHO Chronic kidney disease STAGE IV-F/U DR SALINAS Chronic obstructive pulmonary disease, unspecified Breathing stable Depression Diabetes mellitus, type 2 Glucose fluctuates DVT (deep venous thrombosis) LOWER LEG 2019 GERD (gastroesophageal reflux disease) History of CVA (cerebrovascular accident) Had RUE weakness and numbness after 09/17/21 breast surgery- CT scan of head negative; unable to do MRI due to ICD Per PCP records 10/22/21= "[place] her post op RUE sx related to possible small stroke/TIA" Hypothyroidism Insomnia Ischemic cardiomyopathy Left bundle branch block Nausea and vomiting after administration of anesthetic agent severe PONV s/p Left carotid surgery 09/27/21 at [facility] NSTEMI (non-ST elevated myocardial infarction) Most recent 12/2019 (mild per patient) PAD (peripheral artery disease) S/p TELEVISION DIRECTOR and stenting of right SFA, and TELEVISION DIRECTOR of left SFA and common femoral artery PAF (paroxysmal atrial fibrillation) Pulmonary hypertension RVSP 40-45mmHg on 10/2020 ECHO Rheumatoid arthritis No medications Followed with rheum in the past- no recent issues Secondary hyperparathyroidism of renal origin SOB (shortness of breath) on exertion Spondylosis Subclavian artery stenosis Surgical History H/O colonoscopy H/O heart artery stent H/O: section History of appendectomy History of cardiac cath History of cataract surgery History of cholecystectomy History of hysterectomy History of left-sided carotid endarterectomy (09/27/21) History of oophorectomy S/P angioplasty (02/03/21) S/P AV hiren ablation (06/30/22) S/P carotid endarterectomy S/P coronary artery stent placement (10/2017) S/P coronary artery stent placement (10/2018) 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) S/P thoracentesis (03/2020) Status post partial mastectomy of right breast (09/17/21) Family History Daughter Coronary heart disease Diabetes Mother Diabetes Family history of hypercholesterolemia Myocardial infarction Hypertension Stroke Brother Colorectal cancer Father Accident Brother Diabetes Family/Other Myocardial infarction Son Coronary heart disease Hypertension Other Pacemaker Denies family history of Ovarian cancer Prostate cancer Breast cancer Social History Smoking Status: Never smoker Second Hand Exposure: Yes; Hx Alcohol Use: No Hx Substance Use: No Preferred Language: Senegalese Communication Ability: Effective Visual Impairment: No Limitations Hearing Ability: Hard of Hearing Atmospheric Physics Professor Required: No Beliefs That Will Affect Care: None marital status: / marital status details: passed 2000 Current Living Situation: Alone current occupational status: retired 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 How many Children do You have: 2 Feels Safe at Home: Yes caffeine: Yes (1 cup/day) during the past year weight has: remained stable Seatbelt Use: always Assistive Devices: Cane and Walker Allergies Allergies Allergy/AdvReac Type Severity Reaction Status Date / Time adhesive Allergy Intermediate REDNESS Verified 12/18/22 18:01 AND IRRITATION FROM PAIN PATCH, TAPE latex Allergy Intermediate ALLERGIC Verified 12/18/22 18:01 TO LATEX TAPE/RASH/ITCHING morphine Allergy Intermediate swelling Verified 12/18/22 18:01 nausea vomiting olmesartan Allergy Unknown UNKNOWN Verified 12/18/22 18:01 benzonatate AdvReac Intermediate confusion Verified 12/18/22 18:01 [From Tessalon Perles] dulaglutide [From Trulicity] AdvReac Intermediate AFFECTS Verified 12/18/22 18:01 MUSCLES exenatide [From Byetta] AdvReac Intermediate Diarrhea Verified 12/18/22 18:01 ezetimibe AdvReac Intermediate MUSCLE Verified 12/18/22 18:01 ACHES glipizide AdvReac Intermediate Diarrhea Verified 12/18/22 18:01 glyburide AdvReac Intermediate Diarrhea Verified 12/18/22 18:01 lisinopril AdvReac Intermediate LIGHTHEADED Verified 12/18/22 18:01 AND DIZZY losartan AdvReac Intermediate dizziness Verified 12/18/22 18:01 metformin AdvReac Intermediate Diarrhea Verified 12/18/22 18:01 pioglitazone AdvReac Intermediate DIARRHEA Verified 12/18/22 18:01 NAUSEA sitagliptin [From Januvia] AdvReac Intermediate Diarrhea Verified 12/18/22 18:01 [id number] Reductase AdvReac Intermediate myalgias Verified 12/18/22 18:01 Inhibitor and [Edsipyq-Ygi-Sso Reductase weakness Inhibitor] aspirin AdvReac Mild GI SYMPTOMS Verified 12/18/22 18:01 Home Meds Home Medications Medication Instructions Recorded Confirmed polyethylene glycol 3350 17 17 g PO HS 03/29/20 12/18/22 gram/dose oral powder (Miralax) vitamin E 268 mg (400 unit) capsule 400 unit PO QAM 03/29/20 12/18/22 cholecalciferol (vitamin D3) 25 1,000 unit PO QAM 05/17/21 12/18/22 mcg (1,000 unit) capsule garlic 1,000 mg capsule 1,000 mg PO QPM 09/07/21 12/18/22 anastrozole 1 mg tablet (Arimidex) 1 mg PO QAM 11/11/21 12/18/22 ascorbate calcium (vitamin C) 500 500 mg PO DAILY 06/27/22 12/18/22 mg tablet potassium gluconate 595 mg (99 mg) 595 mg PO DAILY 06/27/22 12/18/22 tablet carvedilol 3.125 mg tablet 3.125 mg PO BID 07/26/22 12/18/22 ranolazine 500 mg tablet,extended 500 mg PO BID 12/18/22 12/18/22 release,12 hr Previous Rx's Medication Instructions Recorded magnesium oxide 400 mg PO QPM #90 caps 04/01/19 sertraline 25 mg tablet 25 mg PO DAILY #30 tabs 05/30/22 pantoprazole 40 mg tablet,delayed 40 mg PO BID Stomach Upset #180 06/07/22 release (Protonix) tabs trazodone 50 mg tablet 50 mg PO HS PRN insomnia #90 tabs 06/23/22 bumetanide 1 mg tablet 1 mg PO BID #120 tabs 07/14/22 insulin syringe-needle U-100 0.3 #100 ea 08/15/22 mL 31 gauge x 5/16" (BD SafetyGlide Insulin Syringe) ticagrelor 90 mg tablet (Brilinta) 90 mg PO BID #180 tabs 08/15/22 sacubitril 24 mg-valsartan 26 mg 1 tab PO BID #180 tabs 08/30/22 tablet (Entresto) ondansetron HCl 4 mg tablet 4 mg PO Q8H PRN nausea and 09/27/22 vomiting #30 tabs levothyroxine 75 mcg tablet 75 mcg PO QAM #90 tabs 10/05/22 apixaban 2.5 mg tablet (Eliquis) 2.5 mg PO BID #180 tabs 10/18/22 digoxin 125 mcg (0.125 mg) tablet 125 mcg PO 3XWK #36 tabs 10/31/22 calcitriol 0.25 mcg capsule 0.25 mcg PO 3XWK #12 caps 11/14/22 (Rocaltrol) gabapentin 100 mg capsule 100 mg PO HS #30 caps 11/28/22 insulin aspar prt-insulin aspart 15 - 30 unit (0.15 - 0.3 mL) 11/28/22 100 unit/mL (70-30) subcutaneous subcut AMPM #30 mL soln (Novolog Mix 70-30 U-100 Insuln) mupirocin 2 % topical ointment 1 applic topical BID #15 grams 11/28/22 Results & Data (ED) Vital Signs Vital Signs - 24 hr 12/18/22 17:22 12/18/22 17:37 12/18/22 18:20 Temperature 36.5 C Temperature Source Oral Pulse Rate 89 80 Pulse Rate [Apical] 80 Pulse Rate from SpO2 Sensor Pulse Rhythm Regular Pulse Strength Normal Respiratory Rate 12 16 Respiratory Effort / Characteristics Non-Labored Spontaneous Non-Labored Respiratory Depth Normal Normal Respiratory Pattern Regular Blood Pressure 160/111 H Blood Pressure [Right Arm] 169/89 H Blood Pressure Mean 127 Blood Pressure Mean [Right Arm] 115 Blood Pressure Position Lying Pulse Oximetry 98 100 Oxygen Delivery Method Room Air Room Air Sepsis New/Unexplained Change in Mental Status No Sepsis Action Taken by Nursing No Action Required 12/18/22 17:10 12/18/22 17:11 12/18/22 17:20 Temperature Temperature Source Pulse Rate 88 80 Pulse Rate [Apical] Pulse Rate from SpO2 Sensor Pulse Rhythm Pulse Strength Respiratory Rate 18 23 Respiratory Effort / Characteristics Respiratory Depth Respiratory Pattern Blood Pressure 150/85 H Blood Pressure [Right Arm] Blood Pressure Mean 106 Blood Pressure Mean [Right Arm] Blood Pressure Position Pulse Oximetry Oxygen Delivery Method Sepsis New/Unexplained Change in Mental Status Sepsis Action Taken by Nursing 12/18/22 17:30 12/18/22 17:32 12/18/22 17:32 Temperature Temperature Source Pulse Rate 80 81 Pulse Rate [Apical] Pulse Rate from SpO2 Sensor 79 80 Pulse Rhythm Pulse Strength Respiratory Rate 19 15 Respiratory Effort / Characteristics Respiratory Depth Respiratory Pattern Blood Pressure 117/63 Blood Pressure [Right Arm] Blood Pressure Mean 81 Blood Pressure Mean [Right Arm] Blood Pressure Position Pulse Oximetry 100 100 Oxygen Delivery Method Sepsis New/Unexplained Change in Mental Status Sepsis Action Taken by Nursing 12/18/22 17:40 12/18/22 17:57 12/18/22 18:00 Temperature Temperature Source Pulse Rate 80 81 84 Pulse Rate [Apical] Pulse Rate from SpO2 Sensor 80 84 Pulse Rhythm Pulse Strength Respiratory Rate 16 16 13 Respiratory Effort / Characteristics Respiratory Depth Respiratory Pattern Blood Pressure Blood Pressure [Right Arm] Blood Pressure Mean Blood Pressure Mean [Right Arm] Blood Pressure Position Pulse Oximetry 100 100 Oxygen Delivery Method Sepsis New/Unexplained Change in Mental Status Sepsis Action Taken by Nursing 12/18/22 18:10 12/18/22 18:20 12/18/22 18:30 Temperature Temperature Source Pulse Rate 82 80 Pulse Rate [Apical] Pulse Rate from SpO2 Sensor 80 79 80 Pulse Rhythm Pulse Strength Respiratory Rate 15 7 L 15 Respiratory Effort / Characteristics Respiratory Depth Respiratory Pattern Blood Pressure Blood Pressure [Right Arm] Blood Pressure Mean Blood Pressure Mean [Right Arm] Blood Pressure Position Pulse Oximetry 100 99 100 Oxygen Delivery Method Sepsis New/Unexplained Change in Mental Status Sepsis Action Taken by Nursing 12/18/22 18:34 12/18/22 18:34 12/18/22 18:40 Temperature Temperature Source Pulse Rate 79 80 Pulse Rate [Apical] Pulse Rate from SpO2 Sensor 80 80 Pulse Rhythm Pulse Strength Respiratory Rate 19 15 Respiratory Effort / Characteristics Respiratory Depth Respiratory Pattern Blood Pressure 169/89 H Blood Pressure [Right Arm] Blood Pressure Mean 115 Blood Pressure Mean [Right Arm] Blood Pressure Position Pulse Oximetry 100 100 Oxygen Delivery Method Sepsis New/Unexplained Change in Mental Status Sepsis Action Taken by Nursing 12/18/22 18:50 12/18/22 19:00 12/18/22 19:00 Temperature Temperature Source Pulse Rate 80 81 Pulse Rate [Apical] Pulse Rate from SpO2 Sensor 80 80 Pulse Rhythm Pulse Strength Respiratory Rate 12 16 Respiratory Effort / Characteristics Respiratory Depth Respiratory Pattern Blood Pressure 178/88 H Blood Pressure [Right Arm] Blood Pressure Mean 118 Blood Pressure Mean [Right Arm] Blood Pressure Position Pulse Oximetry 100 100 Oxygen Delivery Method Sepsis New/Unexplained Change in Mental Status Sepsis Action Taken by Nursing 12/18/22 19:10 Temperature Temperature Source Pulse Rate 80 Pulse Rate [Apical] Pulse Rate from SpO2 Sensor 81 Pulse Rhythm Pulse Strength Respiratory Rate 17 Respiratory Effort / Characteristics Respiratory Depth Respiratory Pattern Blood Pressure Blood Pressure [Right Arm] Blood Pressure Mean Blood Pressure Mean [Right Arm] Blood Pressure Position Pulse Oximetry 100 Oxygen Delivery Method Sepsis New/Unexplained Change in Mental Status Sepsis Action Taken by Nursing Laboratory Data 12/18/22 17:41 12/18/22 17:41 Lab Results 12/18/22 12/18/22 12/18/22 Range/Units 17:40 17:41 17:41 WBC 16.57 H (4.8-10.8) K/ul RBC 4.48 (4.20-5.40) M/uL Hgb 15.4 (12.0-16.0) g/dl Hct 45.6 (37.0-47.0) % MCV 101.8 H (80.0-100.0) fL MCH 34.4 H (25.0-34.0) pg MCHC 33.8 (32.0-36.0) g/dL RDW Std Deviation 45.3 (36.4-46.3) fL RDW Coeff of Manuela 12.0 (11.5-14.5) % Plt Count 216 (130-400) K/uL MPV 10.8 (9.4-12.4) fL Immature Gran % (Auto) 0.4 % Neut % (Auto) 87.2 % Lymph % (Auto) 6.6 % Rankin % (Auto) 5.3 % Eos % (Auto) 0.3 % Baso % (Auto) 0.2 % Neut # (Auto) 14.47 H (1.40-6.50) K/uL Lymph # (Auto) 1.09 L (1.2-3.4) K/uL Rankin # (Auto) 0.87 H (0.11-0.59) K/uL Eos # (Auto) 0.05 (0-0.50) K/uL Baso # (Auto) 0.03 (0-0.2) K/uL Immature Gran # (Auto) 0.06 (0.01-0.20) K/uL Sodium 134 L (136-145) mmol/L Potassium 4.1 (3.5-5.1) mmol/L Chloride 96 L (98-107) mmol/L Carbon Dioxide 25 (21-32) mmol/L Anion Gap 13 H (3-11) BUN 60 H (6-23) mg/dl Creatinine 2.33 H (0.6-1.2) mg/dl Est Cr Clr Drug Dosing 19.5 ml/min Est GFR ( Amer) 21.7 ml/min Est GFR (Non-Af Amer) 18.7 ml/min BUN/Creatinine Ratio 25.8 H (10-20) Glucose 195 H (70-99(Fasting)) mg/dl Lactate (0.4-2.0) mmol/L Calcium 9.2 (8.5-10.1) mg/dl Total Bilirubin 0.8 (0.2-1.0) mg/dl AST 22 (13-39) U/L ALT 17 (7-52) U/L Alkaline Phosphatase 118 H (34-104) U/L Troponin I High Sens 74.1 H* (0-14) pg/ml Total Protein 7.8 (6.0-8.3) gm/dl Albumin 4.3 (3.4-5.0) gm/dl Globulin 3.5 (2.5-4.0) gm/dl Albumin/Globulin Ratio 1.2 (0.9-2) Lipase 13 (11-82) U/L Adenovirus (PCR) Not Detected (NotDetected) B. pertussis DNA (PCR) Not Detected (NotDetected) B.parapertussis DNA PCR Not Detected (NotDetected) C. pneumoniae DNA (PCR) Not Detected (NotDetected) Coronavirus OC43 (PCR) Not Detected (NotDetected) Coronavirus HKU1 (PCR) Not Detected (NotDetected) Coronavirus 229E (PCR) Not Detected (NotDetected) SARS-CoV-2 (PCR) Not Detected (NotDetected) Coronavirus NL63 (PCR) Not Detected (NotDetected) Human Metapneumovir PCR Not Detected (NotDetected) Influenza Type A (PCR) Not Detected (NotDetected) Influenza Type B (PCR) Not Detected (NotDetected) M. pneumoniae (PCR) Not Detected (NotDetected) Parainfluenza 1 (PCR) Not Detected (NotDetected) Parainfluenza 2 (PCR) Not Detected (NotDetected) Parainfluenza 3 (PCR) Not Detected (NotDetected) Parainfluenza 4 (PCR) Not Detected (NotDetected) RSV (PCR) Not Detected (NotDetected) Entero/Rhino (PCR) Not Detected (NotDetected) 12/18/22 Range/Units 17:41 WBC (4.8-10.8) K/ul RBC (4.20-5.40) M/uL Hgb (12.0-16.0) g/dl Hct (37.0-47.0) % MCV (80.0-100.0) fL MCH (25.0-34.0) pg MCHC (32.0-36.0) g/dL RDW Std Deviation (36.4-46.3) fL RDW Coeff of Manuela (11.5-14.5) % Plt Count (130-400) K/uL MPV (9.4-12.4) fL Immature Gran % (Auto) % Neut % (Auto) % Lymph % (Auto) % Rankin % (Auto) % Eos % (Auto) % Baso % (Auto) % Neut # (Auto) (1.40-6.50) K/uL Lymph # (Auto) (1.2-3.4) K/uL Rankin # (Auto) (0.11-0.59) K/uL Eos # (Auto) (0-0.50) K/uL Baso # (Auto) (0-0.2) K/uL Immature Gran # (Auto) (0.01-0.20) K/uL Sodium (136-145) mmol/L Potassium (3.5-5.1) mmol/L Chloride (98-107) mmol/L Carbon Dioxide (21-32) mmol/L Anion Gap (3-11) BUN (6-23) mg/dl Creatinine (0.6-1.2) mg/dl Est Cr Clr Drug Dosing ml/min Est GFR ( Amer) ml/min Est GFR (Non-Af Amer) ml/min BUN/Creatinine Ratio (10-20) Glucose (70-99(Fasting)) mg/dl Lactate 2.9 H* (0.4-2.0) mmol/L Calcium (8.5-10.1) mg/dl Total Bilirubin (0.2-1.0) mg/dl AST (13-39) U/L ALT (7-52) U/L Alkaline Phosphatase (34-104) U/L Troponin I High Sens (0-14) pg/ml Total Protein (6.0-8.3) gm/dl Albumin (3.4-5.0) gm/dl Globulin (2.5-4.0) gm/dl Albumin/Globulin Ratio (0.9-2) Lipase (11-82) U/L Adenovirus (PCR) (NotDetected) B. pertussis DNA (PCR) (NotDetected) B.parapertussis DNA PCR (NotDetected) C. pneumoniae DNA (PCR) (NotDetected) Coronavirus OC43 (PCR) (NotDetected) Coronavirus HKU1 (PCR) (NotDetected) Coronavirus 229E (PCR) (NotDetected) SARS-CoV-2 (PCR) (NotDetected) Coronavirus NL63 (PCR) (NotDetected) Human Metapneumovir PCR (NotDetected) Influenza Type A (PCR) (NotDetected) Influenza Type B (PCR) (NotDetected) M. pneumoniae (PCR) (NotDetected) Parainfluenza 1 (PCR) (NotDetected) Parainfluenza 2 (PCR) (NotDetected) Parainfluenza 3 (PCR) (NotDetected) Parainfluenza 4 (PCR) (NotDetected) RSV (PCR) (NotDetected) Entero/Rhino (PCR) (NotDetected) Administered Medications Discontinued Medications Sodium Chloride (Nss 1000ml) 1,000 mls @ 999 mls/hr IV .Q1H1M STA Stop: 12/18/22 18:28 Last Infusion: 12/18/22 18:55 Dose: 0 mls/hr Documented By: Admin: 12/18/22 17:38 Dose: 999 mls/hr Documented By: TAISHA Ondansetron HCl (Ondansetron Inj 2 Mg/Ml 2 Ml Vial) 4 mg IV NOW STA Stop: 12/18/22 17:29 Last Admin: 12/18/22 17:38 Dose: 4 mg Documented By: TAISHA Imaging Data Radiologist's Impression: Abdomen/Pelvis CT 12/18/22 17:[address] WITHOUT CONTRAST CT DOSE: 793.17 mGy.cm HISTORY: Acute mid abdominal pain with nausea and vomiting N/V/D; generalized abdominal pain TECHNIQUE: Multiaxial CT images of the abdomen and pelvis were performed without contrast. A dose lowering technique was utilized adhering to the principles of ALARA. COMPARISON STUDY: CT 02/16/2022 FINDINGS: Cardiomegaly with partially imaged pacer leads, extensive coronary arterial calcifications and aortic valvular endograft. Trace right pleural effusion. Mild subsegmental bibasilar atelectasis versus scarring. No pneumatosis or pneumoperitoneum. Unremarkable spleen, dystrophic pancreas and adrenal glands. Cholecystectomy. Mild atrophy of the kidneys, left greater than right. No urolith or hydrone phrosis. There is partial distention of the urinary bladder. Hysterectomy. Atherosclerosis of the aorta without aneurysm. No lymphadenopathy identified. There is no bowel obstruction, ascites or mesenteric inflammation. Portions of the large bowel are decompressed. The appendix is not visualized. Fat necrosis of the subcutaneous tissues of the lateral left hip. No acute fracture. Moderate L1 compression deformity is unchanged without retropulsion. #1 IMPRESSION: 1. No bowel obstruction or pneumoperitoneum. 2. Areas of wall thickening within the large bowel are likely secondary to partial distention. A mild nonspecific colitis considered less likely. 3. Trace right pleural effusion. 4. Additional findings as above. ACT 112: Negative or not required by law. The above report was generated using voice recognition software. It may contain grammatical, syntax or spelling errors. Electronically signed by: Irving Lerner M.D. 12/18/2022 6:23 PM Discharge Plan Visit Data Chief Complaint: Abdominal Pain Stated Complaint: AB PAIN, NAUSEA, VOMITING, DIARRHEA ED Provider: Lucie Kruse Discharge Problem: Nausea, vomiting, and diarrhea, Non-ST elevation VA (NSTEMI), Elevated lactic acid level, Acute dehydration Patient Disposition: Admitted As Inpatient Forms Stand Alone Forms: [employer] Prescriptions Prescriptions: No Action cholecalciferol (vitamin D3) 25 mcg (1,000 unit) capsule 1,000 unit PO QAM pantoprazole [Protonix] 40 mg tablet,delayed release (DR/EC) 40 mg PO BID Qty: 180 1RF trazodone 50 mg tablet 50 mg PO HS PRN (Reason: insomnia) Qty: 90 1RF Brilinta 90 mg tablet 90 mg PO BID Qty: 180 3RF (DME) insulin syringe-needle U-100 [BD SafetyGlide Insulin Syringe] 0.3 mL 31 gauge x 5/16" syringe See Rx Instructions .Route Qty: 100 3RF Rx Instructions: test three times daily ondansetron HCl 4 mg tablet 4 mg PO Q8H PRN (Reason: nausea and vomiting) Qty: 30 0RF levothyroxine 75 mcg tablet 75 mcg PO QAM Qty: 90 1RF Eliquis 2.5 mg tablet 2.5 mg PO BID Qty: 180 3RF digoxin 125 mcg (0.125 mg) tablet 125 mcg PO 3XWK Qty: 36 1RF Rx Instructions: MONDAY/MONDAY/MONDAY IN THE AM calcitriol [Rocaltrol] 0.25 mcg capsule 0.25 mcg PO 3XWK Qty: 12 1RF Rx Instructions: MONDAY/MONDAY/MONDAY/ IN THE AM magnesium oxide 400 mg magnesium capsule 400 mg PO QPM Qty: 90 0RF Hold Instructions: hypermagnesemia anastrozole [Arimidex] 1 mg tablet 1 mg PO QAM ascorbate calcium (vitamin C) 500 mg tablet 500 mg PO DAILY potassium gluconate 595 mg (99 mg) tablet 595 mg PO DAILY Hold Instructions: hyperkalemia bumetanide 1 mg tablet 1 mg PO BID Qty: 120 3RF Rx Instructions: May increase to 3 mg BID for edema, swelling, weight gain. Entresto 24-26 mg tablet 1 tab PO BID Qty: 180 3RF sertraline 25 mg tablet 25 mg PO DAILY Qty: 30 2RF carvedilol 3.125 mg tablet 3.125 mg PO BID insulin asp prt-insulin aspart [Novolog Mix 70-30 U-100 Insuln] 100 unit/mL (70-30) solution 15 - 30 unit SUBCUT AMPM Qty: 30 5RF Rx Instructions: Per home sliding scale gabapentin 100 mg capsule 100 mg PO HS Qty: 30 2RF mupirocin 2 % ointment 1 applic topical BID Qty: 15 0RF vitamin E 400 unit capsule 400 unit PO QAM polyethylene glycol 3350 [Miralax] 17 gram/dose Powder 17 g PO HS garlic 1,000 mg capsule 1,000 mg PO QPM ranolazine 500 mg Tablet Extended Release 12 Hr 500 mg PO BID Referrals Referrals: Ebony Alvarenga DO [Primary Care Provider] -
[2022-12-18 18:04] LABS: Basophils # (auto) 0.03 K/uL (0-0.2); Basophils % (auto) 0.2 %; Eosinophils # (auto) 0.05 K/uL (0-0.50); Eosinophils % (auto) 0.3 %; Hematocrit (blood only) 45.6 % (37.0-47.0); Hemoglobin 15.4 g/dl (12.0-16.0); Immature Granulocytes # (auto) 0.06 K/uL (0.01-0.20); Immature Granulocytes % (auto) 0.4 %; Lymphocytes # (auto) 1.09 K/uL (1.2-3.4); Lymphocytes % (auto) 6.6 %; Mean Corpuscular Hemoglobin 34.4 pg (25.0-34.0); Mean Corpuscular Hgb Conc 33.8 g/dL (32.0-36.0); Mean Corpuscular Volume 101.8 fL (80.0-100.0); Mean Platelet Volume 10.8 fL (9.4-12.4); Monocytes # (auto) 0.87 K/uL (0.11-0.59); Monocytes % (auto) 5.3 %; Neutrophils # (auto) 14.47 K/uL (1.40-6.50); Neutrophils % (auto) 87.2 %; Platelet Count 216 K/uL (130-400); RDW Standard Deviation 45.3 fL (36.4-46.3); Red Blood Count 4.48 M/uL (4.20-5.40); White Blood Count 16.57 K/ul (4.8-10.8)
--- NOTE | 2022-12-18 18:26 | CT Scan Report ---
ABDOMEN AND PELVIS CT WITHOUT CONTRAST CT DOSE: 793.17 mGy.cm HISTORY: Acute mid abdominal pain with nausea and vomiting N/V/D; generalized abdominal pain TECHNIQUE: Multiaxial CT images of the abdomen and pelvis were performed without contrast. A dose lo wering technique was utilized adhering to the principles of ALARA. COMPARISON STUDY: CT 02/16/2022 FINDINGS: Cardiomegaly with partially imaged pacer leads, extensive coronary arterial calcifications and aortic valvular endograft. Trace right pleural effusion. Mild subsegmental bibasilar atelectasis versus scarring. No pneumatosis or pneumoperitoneum. Unremarkable spleen, dystrophic pancreas and adrenal glands. Cholecystectomy. Mild atrophy of the kid neys, left greater than right. No urolith or hydronephrosis. There is partial distention of the urina ry bladder. Hysterectomy. Atherosclerosis of the aorta without aneurysm. No lymphadenopathy identifie d. There is no bowel obstruction, ascites or mesenteric inflammation. Portions of the large bowel are de compressed. The appendix is not visualized. Fat necrosis of the subcutaneous tissues of the lateral l eft hip. No acute fracture. Moderate L1 compression deformity is unchanged without retropulsion. #1 IMPRESSION: 1. No bowel obstruction or pneumoperitoneum. 2. Areas of wall thickening within the large bowel are likely secondary to partial distention. A mild nonspecific colitis considered less likely. 3. Trace right pleural effusion. 4. Additional findings as above. ACT 112: Negative or not required by law. The above report was generated using voice recognition software. It may contain grammatical, syntax o r spelling errors. Electronically signed by: Irving Lerner M.D. 12/18/2022 6:23 PM
[2022-12-18 18:32] LABS: Troponin I High Sensitivity 74.1 pg/ml (0-14)
[2022-12-18 18:40] LABS: Albumin Globulin Ratio 1.2 (0.9-2); Albumin Level 4.3 gm/dl (3.4-5.0); BUN Creatinine Ratio 25.8 (10-20); Bilirubin,Total 0.8 mg/dl (0.2-1.0); Calcium 9.2 mg/dl (8.5-10.1); Creatinine Clr Calc Pharmacy 19.5 ml/min; Est GFR (African American) 21.7 ml/min; Est GFR (Non-African American) 18.7 ml/min; Globulin 3.5 gm/dl (2.5-4.0); Potassium 4.1 mmol/L (3.5-5.1); Total Protein 7.8 gm/dl (6.0-8.3)
[2022-12-18 18:46] LABS: Adenovirus PCR Not Detected (NotDetected); Bordetella parapertussis PCR Not Detected (NotDetected); Bordetella pertussis PCR Not Detected (NotDetected); Chlamydia pneumoniae PCR Not Detected (NotDetected); Coronavirus 229E PCR Not Detected (NotDetected); Coronavirus CoV-2 (COVID19)PCR Not Detected (NotDetected); Coronavirus HKU1 PCR Not Detected (NotDetected); Coronavirus NL63 PCR Not Detected (NotDetected); Coronavirus OC43PCR Not Detected (NotDetected); Human Metapneumovirus PCR Not Detected (NotDetected); Influenza A PCR Not Detected (NotDetected); Influenza B PCR Not Detected (NotDetected); Mycoplasma pneumoniae PCR Not Detected (NotDetected); Parainfluenza Virus 1 PCR Not Detected (NotDetected); Parainfluenza Virus 2 PCR Not Detected (NotDetected); Parainfluenza Virus 3 PCR Not Detected (NotDetected); Parainfluenza Virus 4 PCR Not Detected (NotDetected); Respiratory Syncytial VirusPCR Not Detected (NotDetected); Rhinovirus/Enterovirus PCR Not Detected (NotDetected)
--- NOTE | 2022-12-18 19:18 | History & Physical Report ---
Date of Service December 18, 2022 Assessment & Plan (1) Nausea, vomiting, and diarrhea: Plan: -Pt with clinically apparent dehydration on admission with leukocytosis, elevated lactate, CTAP findings of nonspecific colitis -Suspect symptoms likely due to viral GI illness -Stool GI PCR, C. Difficile testing pending -Continue supportive care- Zofran PRN nausea, LR IVF at 60 cc/hr- cautious fluid repletion given her CHF history -Deferring antibiotics at present until repeat labwork results -Of note, pt has been unable to take her medications at home for past few days- we will carefully hold/administer her home medications pending hemodynamic parameters (2) Elevated lactic acid level: Plan: -Lactate 2.9 on admission, associated leukocytosis with neutrophilic predominance, however afebrile and VSS -Repeat labs ordered, deferring antibiotics at present (3) Acute kidney injury superimposed on chronic kidney disease: Plan: -TRACY likely from GI losses with history of CKD4- baseline Cr appears ~2 -Cr 2.33 on admission -Holding Entresto, Bumex in setting of renal hypoperfusion -Cautious fluid repletion -Trend BMP (4) Elevated troponin: Plan: -Troponin 74 on admission, EKG without overt ST change and pt without chest pain -Likely demand ischemia from GI illness -Trend to peak (5) HFrEF (heart failure with reduced ejection fraction): Plan: -Chronic, stable -Currently without evidence of hypervolemia or suspected CHF exacerbation -Holding home Bumex while ongoing fluid repletion -Monitor volume status (6) Depression: Plan: -Continue home sertraline (7) DM II (diabetes mellitus, type II), controlled: Plan: -A1c 7.0% in 06/06 -BSG elevated 190s on admission -Lantus 10u BID, SSI- adjust per glucose trend (8) Pleural effusion: Plan: -Trace R pleural effusion noted on CTAP -No clinical hypervolemia, unlikely to represent CHF exacerbation -Saturating well on RA at present (9) PAF (paroxysmal atrial fibrillation): Plan: -Currently in ventricular paced rhythm, rate-controlled -Continue Eliquis for anticoagulation -Continue carvedilol, digoxin, (10) CAD (coronary artery disease): Plan: -Troponin elevation unlikely to represent acute ACS -Continue ticagrelor, ranolazine, carvedilol -Holding Entresto as above for TRACY (11) Chronic obstructive pulmonary disease, unspecified: Plan: -Stable respiratory status on RA at present -Continue to monitor (12) GERD (gastroesophageal reflux disease): Plan: -Continue pantoprazole (13) Hypothyroidism: Plan: -Continue levothyroxine Plan FENGI: Clear liquids, heart-healthy, low sodium Code status: DNR/DNI DVT ppx: Eliquis Isolation: None Dispo: Medical/surgical History of Present Illness Chief Complaint: Diarrhea Primary Care Provider: Ebony Alvarenga, DO 82 yo F with complex PMH including anemia, CKD4, pAF on Eliquis, CAD, COPD, HFrEF with biventricular ICD, DM2, hypothyroidism, aortic stenosis s/p TAVR 2019, carotid artery stenoses s/p CEA b/l 2015, depression, history of CVA presenting with diarrhea. She reports onset of generalized abdominal pain, nausea, NBNB emesis and watery diarrhea starting on 12/15. Has not been able to eat or drink much at all and unfortunately she has not been able to take her medications because of this. Denies any chest pain, dyspnea, melena, hematochezia. No recent travel or sick contacts, no fevers. She endorses continual fatigue and notes unintentional 8 lb weight loss since symptoms began. Pt arrived to ER hemodynamically stable. ED labs significant for WBC 16.6, Na 134, BUN 60, Cr 2.3, glucose 195, lactate 2.9, troponin 74. RVP negative, lipase normal. CTAP with findings of nonspecific colitis and partial large bowel distension, trace R pleural effusion. ER interventions include 1L NSS bolus and Zofran. On my evaluation, she reports fatigue but improvement in nausea and no further diarrhea since being in ER. Allergies Allergy/AdvReac Type Severity Reaction Status Date / Time adhesive Allergy Intermediate REDNESS Verified 12/18/22 18:01 AND IRRITATION FROM PAIN PATCH, TAPE latex Allergy Intermediate ALLERGIC Verified 12/18/22 18:01 TO LATEX TAPE/RASH/ITCHING morphine Allergy Intermediate swelling Verified 12/18/22 18:01 nausea vomiting olmesartan Allergy Unknown UNKNOWN Verified 12/18/22 18:01 benzonatate AdvReac Intermediate confusion Verified 12/18/22 18:01 [From Tessalon Perles] dulaglutide [From Trulicity] AdvReac Intermediate AFFECTS Verified 12/18/22 18:01 MUSCLES exenatide [From ] AdvReac Intermediate Diarrhea Verified 12/18/22 18:01 ezetimibe AdvReac Intermediate MUSCLE Verified 12/18/22 18:01 ACHES glipizide AdvReac Intermediate Diarrhea Verified 12/18/22 18:01 glyburide AdvReac Intermediate Diarrhea Verified 12/18/22 18:01 lisinopril AdvReac Intermediate LIGHTHEADED Verified 12/18/22 18:01 AND DIZZY losartan AdvReac Intermediate dizziness Verified 12/18/22 18:01 metformin AdvReac Intermediate Diarrhea Verified 12/18/22 18:01 pioglitazone AdvReac Intermediate DIARRHEA Verified 12/18/22 18:01 NAUSEA sitagliptin [From ] AdvReac Intermediate Diarrhea Verified 12/18/22 18:01 Auqvjhe-VES-IiS Reductase AdvReac Intermediate myalgias Verified 12/18/22 18:01 Inhibitor and [Yyjqljz-Teh-Zff Reductase weakness Inhibitor] aspirin AdvReac Mild GI SYMPTOMS Verified 12/18/22 18:01 Home Medications Medication Instructions Recorded Confirmed Type magnesium oxide 400 mg PO QPM #90 caps 04/01/19 12/18/22 Rx polyethylene glycol 3350 17 17 g PO HS 03/29/20 12/18/22 History gram/dose oral powder (Miralax) vitamin E 268 mg (400 unit) capsule 400 unit PO QAM 03/29/20 12/18/22 History cholecalciferol (vitamin D3) 25 1,000 unit PO QAM 05/17/21 12/18/22 History mcg (1,000 unit) capsule garlic 1,000 mg capsule 1,000 mg PO QPM 09/07/21 12/18/22 History anastrozole 1 mg tablet (Arimidex) 1 mg PO QAM 11/11/21 12/18/22 History sertraline 25 mg tablet 25 mg PO DAILY #30 tabs 05/30/22 12/18/22 Rx pantoprazole 40 mg tablet,delayed 40 mg PO BID Stomach Upset #180 06/07/22 12/18/22 Rx release (Protonix) tabs trazodone 50 mg tablet 50 mg PO HS PRN insomnia #90 tabs 06/23/22 12/18/22 Rx ascorbate calcium (vitamin C) 500 500 mg PO DAILY 06/27/22 12/18/22 History mg tablet potassium gluconate 595 mg (99 mg) 595 mg PO DAILY 06/27/22 12/18/22 History tablet bumetanide 1 mg tablet 1 mg PO BID #120 tabs 07/14/22 12/18/22 Rx carvedilol 3.125 mg tablet 3.125 mg PO BID 07/26/22 12/18/22 History insulin syringe-needle U-100 0.3 #100 ea 08/15/22 12/01/22 Rx mL 31 gauge x /16" (BD SafetyGlide Insulin Syringe) ticagrelor 90 mg tablet (Brilinta) 90 mg PO BID #180 tabs 08/15/22 12/18/22 Rx sacubitril 24 mg-valsartan 26 mg 1 tab PO BID #180 tabs 08/30/22 12/18/22 Rx tablet (Entresto) ondansetron HCl 4 mg tablet 4 mg PO Q8H PRN nausea and 09/27/22 12/18/22 Rx vomiting #30 tabs levothyroxine 75 mcg tablet 75 mcg PO QAM #90 tabs 10/05/22 12/18/22 Rx apixaban 2.5 mg tablet (Eliquis) 2.5 mg PO BID #180 tabs 10/18/22 12/18/22 Rx digoxin 125 mcg (0.125 mg) tablet 125 mcg PO 3XWK #36 tabs 10/31/22 12/18/22 Rx calcitriol 0.25 mcg capsule 0.25 mcg PO 3XWK #12 caps 11/14/22 12/18/22 Rx (Rocaltrol) gabapentin 100 mg capsule 100 mg PO HS #30 caps 11/28/22 12/18/22 Rx insulin aspar prt-insulin aspart 15 - 30 unit (0.15 - 0.3 mL) 11/28/22 12/18/22 Rx 100 unit/mL (70-30) subcutaneous subcut AMPM #30 mL soln (Novolog Mix 70-30 U-100 Insuln) mupirocin 2 % topical ointment 1 applic topical BID #15 grams 11/28/22 12/18/22 Rx ranolazine 500 mg tablet,extended 500 mg PO BID 12/18/22 12/18/22 History release,12 hr Past Med/Surg History Medical History (Updated 12/18/22 @ 20:21 by Ivette Garcia MD) Anemia due to chronic kidney disease Antiplatelet or antithrombotic long-term use Aortic stenosis, severe S/p TAVR 10/2019 Bilateral carotid artery stenosis H/o bilateral CEAs in 2016 Per 07/2021 vascular note- carotid ultrasound from office visit showed patent right CEA with velocities suggesting 50-59% stenosis restenosis Patent left CEA with velocities suggesting 99% restenosis - had re-do of left CEA 09/27/21 Biventricular ICD (implantable cardioverter-defibrillator) in place (04/30/20) [employer] implanted 04/30/2020. Capped right ventricular pacing lead Last check 09/2021 Breast cancer, right Right breast mastectomy 09/17/21 at [facility] CAD (coronary artery disease) F/U DR CUEVA S/p NATY x 1 to Cx in 2019; NATY to ostial LM 01/10/20 Chronic combined systolic and diastolic CHF (congestive heart failure) EF 40% per 10/16/21 ECHO Chronic kidney disease STAGE IV-F/U DR SALINAS Chronic obstructive pulmonary disease, unspecified Breathing stable Depression Diabetes mellitus, type 2 Glucose fluctuates DVT (deep venous thrombosis) LOWER LEG 2019 GERD (gastroesophageal reflux disease) History of CVA (cerebrovascular accident) Had RUE weakness and numbness after 09/17/21 breast surgery- CT scan of head negative; unable to do MRI due to ICD Per PCP records 10/22/21= "[place] her post op RUE sx related to possible small stroke/TIA" Hypothyroidism Insomnia Ischemic cardiomyopathy Left bundle branch block Nausea and vomiting after administration of anesthetic agent severe PONV s/p Left carotid surgery 09/27/21 at [facility] NSTEMI (non-ST elevated myocardial infarction) Most recent 12/2019 (mild per patient) PAD (peripheral artery disease) S/p LEAD PORTFOLIO MANAGER and stenting of right SFA, and LEAD PORTFOLIO MANAGER of left SFA and common femoral artery PAF (paroxysmal atrial fibrillation) Pulmonary hypertension RVSP 40-45mmHg on 10/2020 ECHO Rheumatoid arthritis No medications Followed with rheum in the past- no recent issues Secondary hyperparathyroidism of renal origin SOB (shortness of breath) on exertion Spondylosis Subclavian artery stenosis Surgical History H/O colonoscopy H/O heart artery stent H/O: section History of appendectomy History of cardiac cath History of cataract surgery History of cholecystectomy History of hysterectomy History of left-sided carotid endarterectomy (09/27/21) History of oophorectomy S/P angioplasty (02/03/21) S/P AV hiren ablation (06/30/22) S/P carotid endarterectomy S/P coronary artery stent placement (10/2017) S/P coronary artery stent placement (10/2018) 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) S/P thoracentesis (03/2020) Status post partial mastectomy of right breast (09/17/21) Family History Daughter Coronary heart disease Diabetes Mother Diabetes Family history of hypercholesterolemia Myocardial infarction Hypertension Stroke Brother Colorectal cancer Father Accident Brother Diabetes Family/Other Myocardial infarction Son Coronary heart disease Hypertension Other Pacemaker Denies family history of Ovarian cancer Prostate cancer Breast cancer Social History Smoking Status: Never smoker Second Hand Exposure: Yes; Hx Alcohol Use: No Hx Substance Use: No Preferred Language: Turkish Communication Ability: Effective Visual Impairment: No Limitations Hearing Ability: Hard of Hearing Labeling Associate Required: No Beliefs That Will Affect Care: None marital status: / marital status details: passed 2000 Current Living Situation: Alone current occupational status: retired 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 PERRLA, EOM intact. Sclera anicteric. Face is symmetric. No perioral cyanosis. Mucous membranes dry. Neck: Supple, no JVD, no lymphadenopathy Pulmonary: Normal respiratory effort. No wheezes, rales, crackles. Cardiac: Regular rate and rhythm. S1-S2 normal. Grade 2/6 systolic murmur Extremities: Trace pretibial edema bilaterally L>R. No clubbing or cyanosis. Pulses 1+ and symmetric Abdomen: Normal bowel sounds, soft, nondistended, mildly tender along lower abdomen from RLQ to LLQ, no abdominal mass palpated Skin: Normal skin color, turgor, and pigmentation, no rash, no skin lesions Neurological: Oriented to person, place, and time Results & Data Results & Data ([facility]) Vital Signs (Past 12 Hours) Vital Signs Temp Pulse Pulse Resp BP BP Pulse Ox 12/18/22 18:20 80 16 169/89 H 100 12/18/22 17:37 80 12/18/22 17:22 36.5 C 89 12 160/111 H 98 O2 Del Method 12/18/22 18:20 Room Air 12/18/22 17:37 12/18/22 17:22 Room Air Resident Activity Tracking Resident Involvement: Resident Care Provided Care Provided: Adult Hospital Medicine (7) DM II (diabetes mellitus, type II), controlled Diabetes mellitus fci insulin use: with fci use Diabetes mellitus complication status: with kidney complications Diabetes mellitus complication detail: with nephropathy Qualified Code(s): E11.21 - Type 2 diabetes mellitus with diabetic nephropathy; Z79.4 - assisted (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 (13) Hypothyroidism Hypothyroidism type: acquired Qualified Code(s): E03.9 - Hypothyroidism, unspecified
[2022-12-18] MEDS ORDERED: LACTATED RINGER'S 1,000 ML IV SCH (23:04)
[2022-12-18] MEDS ORDERED: VALSARTAN/SACUBITRIL 26/24MG TAB PO SCH (23:04)
[2022-12-18] MEDS ORDERED: GABAPENTIN 100 MG CAP PO SCH (23:04)
[2022-12-18] MEDS ORDERED: traZODone HCL 50 MG TAB PO PRN (23:04)
[2022-12-18] MEDS ORDERED: GLUCOSE 10 TAB/TUBE PO PRN (23:23)
[2022-12-18] MEDS ORDERED: GLUCOSE 40% GEL 15 GM TUBE PO PRN (23:23)
[2022-12-18] MEDS ORDERED: CARBOHYDRATES FOR HYPOGLYCEMIA PO PRN (23:23)
[2022-12-18] MEDS ORDERED: DEXTROSE 50% 50 ML SYRINGE IV PRN (23:23)
[2022-12-18] MEDS ORDERED: GLUCAGON FOR INJ 1 MG VIAL SQ PRN (23:23)
[2022-12-19] MEDS: carvediloL 3.125 MG TAB PO SCH ×3 (00:01→20:29)
[2022-12-19] MEDS: RANOLAZINE 500 MG ER TAB PO SCH ×3 (00:01→20:29)
[2022-12-19] MEDS: PANTOprazole 40 MG TAB PO SCH ×3 (00:01→20:29)
[2022-12-19] MEDS: TICAGRELOR 90 MG TAB PO SCH ×3 (00:01→20:29)
[2022-12-19 00:23] LABS: Hematocrit (blood only) 45.2 % (37.0-47.0); Mean Corpuscular Hemoglobin 34.1 pg (25.0-34.0); Mean Corpuscular Hgb Conc 33.2 g/dL (32.0-36.0); Mean Corpuscular Volume 102.7 fL (80.0-100.0); Mean Platelet Volume 10.8 fL (9.4-12.4); Platelet Count 206 K/uL (130-400); RDW Coefficient of Variation 12.1 % (11.5-14.5); White Blood Count 12.32 K/ul (4.8-10.8)
[2022-12-19] MEDS: INSULIN ASPART PER UNIT SC SCH ×5 (01:32→20:30)
[2022-12-19 04:16] LABS: Basophils # (auto) 0.04 K/uL (0-0.2); Basophils % (auto) 0.4 %; Eosinophils # (auto) 0.07 K/uL (0-0.50); Eosinophils % (auto) 0.7 %; Hematocrit (blood only) 40.9 % (37.0-47.0); Hemoglobin 14.2 g/dl (12.0-16.0); Immature Granulocytes # (auto) 0.04 K/uL (0.01-0.20); Immature Granulocytes % (auto) 0.4 %; Lymphocytes # (auto) 1.84 K/uL (1.2-3.4); Lymphocytes % (auto) 17.2 %; Mean Corpuscular Hemoglobin 34.8 pg (25.0-34.0); Mean Corpuscular Hgb Conc 34.7 g/dL (32.0-36.0); Mean Corpuscular Volume 100.2 fL (80.0-100.0); Monocytes # (auto) 0.86 K/uL (0.11-0.59); Neutrophils # (auto) 7.84 K/uL (1.40-6.50); Neutrophils % (auto) 73.3 %; Platelet Count 195 K/uL (130-400); RDW Coefficient of Variation 12.1 % (11.5-14.5); RDW Standard Deviation 44.8 fL (36.4-46.3); Red Blood Count 4.08 M/uL (4.20-5.40); White Blood Count 10.69 K/ul (4.8-10.8)
[2022-12-19 04:22] LABS: Creatinine Clr Calc Pharmacy 20.8 ml/min; Est GFR (Non-African American) 20.8 ml/min; Potassium 4.4 mmol/L (3.5-5.1)
[2022-12-19] MEDS: LEVOTHYROXINE SODIUM 75 MCG TABLET PO SCH (05:49)
[2022-12-19] MEDS: APIXABAN 2.5 MG TAB PO SCH ×3 (07:30→20:29)
[2022-12-19] MEDS: SERTRALINE HCL 50 MG TABLET PO SCH (07:31)
--- NOTE | 2022-12-19 08:54 | Hospitalist Progress Note ---
Date of Service December 19, 2022 Assessment & Plan (1) Nausea, vomiting, and diarrhea: Plan: -Pt with clinically apparent dehydration on admission with leukocytosis, elevated lactate, CTAP findings of nonspecific colitis. -Suspect symptoms likely due to viral GI illness, stool PCR and C. diff negative. -Continue supportive care, with Zofran PRN nausea, Imodium for diarrhea. -Received LR at 60 cc/hr x1 bag overnight, defer further IV fluids in favor of PO fluids given CHF history. -Deferring antibiotics at present, given WBC count elevation resolved without Abx and with supportive care. (2) Elevated lactic acid level: Plan: -Lactate 2.9 -> 1.7 with IV fluids and without Abx use. -Liekly due to viral gastroenteritis and fluid losses. (3) Acute kidney injury superimposed on chronic kidney disease: Plan: -Mild TRACY likely from GI losses with history of CKD4- baseline Cr appears ~2. -Cr 2.33 on admission -> 2.14 with gentle IVF. -Holding Entresto, Bumex in setting of renal hypoperfusion. -Trend BMP. (4) Elevated troponin: Plan: -Troponin 74 on admission to 80s without chest pain or anginal equivalents, EKG without overt ST changes. -Likely demand ischemia from GI illness, with history of mildly elevated troponins in the past. (5) HFrEF (heart failure with reduced ejection fraction): Plan: -Chronic, stable. -Currently without evidence of hypervolemia or suspected CHF exacerbation. -Holding home Bumex for now given volume depleted on admission, monitor weights and I/Os. (6) Depression: Plan: -Continue home sertraline. (7) DM II (diabetes mellitus, type II), controlled: Plan: -A1c 7.0% in 06/06 -BSG elevated 190s on admission -Lantus 10u BID, SSI- adjust per glucose trend (8) Pleural effusion: Plan: -Trace R pleural effusion noted on CTAP. -No clinical hypervolemia, unlikely to represent CHF exacerbation. -Saturating well on RA since admission (9) PAF (paroxysmal atrial fibrillation): Plan: -Currently in ventricular paced rhythm, rate-controlled. -Continue Eliquis for anticoagulation. -Continue carvedilol, digoxin. (10) CAD (coronary artery disease): Plan: -Troponin elevation unlikely to represent acute ACS, see above. -Continue ticagrelor, ranolazine, carvedilol. -Holding Entresto as above for TRAYC. (11) Chronic obstructive pulmonary disease, unspecified: Plan: -Stable respiratory status on RA at present. -Continue to monitor. (12) GERD (gastroesophageal reflux disease): Plan: -Continue pantoprazole BID. (13) Hypothyroidism: Plan: -Continue levothyroxine. Plan Supportive care with monitoring of electrolytes and hgb in setting of diarrhea. Admission and Anticipated Discharge Date Admission Date: December 18, 2022 Subjective No acute events overnight. Some intermittent diarrhea, no nausea anymore. Otherwise feels well. No quite feeling hungry yet but tolerated clear liquid diet this AM well. Review of Systems Review of Systems: All systems reviewed & are unremarkable except as noted in Subjective Physical Exam Constitutional: WD/WN, vitals as above Respiratory: normal respiratory effort, lungs clear to auscultation Cardiovascular: RRR, no murmur, no edema Gastrointestinal (Abdomen): normal bowel sounds, soft, nontender, no hepatosplenomegaly Skin: no rashes, warm and dry Psychiatric: A+Ox3, euthymic affect Results & Data Results & Data ([facility]) Vital Signs (Past 12 Hours) Vital Signs Temp Pulse Pulse Resp BP BP Pulse Ox 12/19/22 07:54 36.8 C 80 18 149/70 H 94 12/18/22 22:59 80 12/18/22 22:45 36.3 C L 82 20 169/89 H 99 12/18/22 21:33 82 12/18/22 21:20 82 11 L 100 12/18/22 21:19 178/86 H 12/18/22 21:19 80 23 100 12/18/22 21:10 80 16 100 O2 Del Method 12/19/22 07:54 Room Air 12/18/22 22:59 12/18/22 22:45 Room Air 12/18/22 21:33 12/18/22 21:20 12/18/22 21:19 12/18/22 21:19 12/18/22 21:10 PG Care Time/CCT Total # of Minutes Spent Total Time Spent with Patient: Total time spent is greater than 50% in coordination of care (as documented) at patient's floor/unit and/or counseling patient: Coding Level of Care Code 40412 SUB INP/OBS CARE 50MIN Diagnoses Nausea, vomiting, and diarrhea R11.2; R19.7 Elevated lactic acid level R79.89 Acute kidney injury superimposed on chronic kidney disease N17.9; N18.9 Elevated troponin R77.8 HFrEF (heart failure with reduced ejection fraction) I50.20 Depression F32.A DM II (diabetes mellitus, type II), controlled E11.21; Z79.4 Diabetes mellitus complication detail: with nephropathy Diabetes mellitus complication status: with kidney complications Diabetes mellitus manager terminal insulin use: with half-way use Pleural effusion J90 PAF (paroxysmal atrial fibrillation) I48.0 CAD (coronary artery disease) I25.10 Chronic obstructive pulmonary disease, unspecified J44.9 GERD (gastroesophageal reflux disease) K21.9 Hypothyroidism E03.9 Hypothyroidism type: acquired (7) DM II (diabetes mellitus, type II), controlled Diabetes mellitus complication detail: with nephropathy Diabetes mellitus complication status: with kidney complications Diabetes mellitus manager terminal insulin use: with half-way use Qualified Code(s): E11.21 - Type 2 diabetes mellitus with diabetic nephropathy; Z79.4 - [facility] (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 (13) Hypothyroidism Hypothyroidism type: acquired Qualified Code(s): E03.9 - Hypothyroidism, unspecified
[2022-12-19] MEDS: LANTUS PER UNIT CHARGE SQ SCH ×2 (09:04→20:28)
[2022-12-19] MEDS ORDERED: ACETAMINOPHEN 500 MG TAB PO PRN (10:35)
[2022-12-19 11:17] LABS: Adenovirus F 40/41 PCR Not Detected (NotDetected); Astrovirus PCR Not Detected (NotDetected); Campylobacter PCR Not Detected (NotDetected); Cryptosporidium PCR Not Detected (NotDetected); Cyclospora cayetanensis PCR Not Detected (NotDetected); Entamoeba histolytica PCR Not Detected (NotDetected); Enteroaggregative E.coli(EAEC) Not Detected (NotDetected); Enteropathogenic E.coli (EPEC) Not Detected (NotDetected); Enterotoxigenic E.coli (ETEC) Not Detected (NotDetected); Giardia lamblia PCR Not Detected (NotDetected); Norovirus GI/GII PCR Not Detected (NotDetected); Plesiomonas shigelloides PCR Not Detected (NotDetected); Rotavirus A PCR Not Detected (NotDetected); Salmonella PCR Not Detected (NotDetected); Sapovirus PCR Not Detected (NotDetected); Shiga-like Toxin E.coli (STEC) Not Detected (NotDetected); Shigella/Enteroinvasive E.coli Not Detected (NotDetected); Vibrio cholerae PCR Not Detected (NotDetected); Vibrio species PCR Not Detected (NotDetected); Yersinia enterocolitica PCR Not Detected (NotDetected)
[2022-12-19] MEDS: DIGOXIN 0.125 MG TAB PO SCH (16:29)
[2022-12-19] MEDS ORDERED: LOPERAMIDE HCL 2 MG CAP PO STA (17:17)
--- NOTE | 2022-12-20 05:13 | Electrocardiogram Report ---
Test Reason : Blood Pressure : / mmHG Vent. Rate : 082 BPM Atrial Rate : 086 BPM P-R Int : 000 ms QRS Dur : 176 ms QT Int : 452 ms P-R-T Axes : 000 -85 089 degrees QTc Int : 528 ms Poor data quality, interpretation may be adversely affected Ventricular-paced rhythm Biventricular pacemaker detected Abnormal ECG When compared with ECG of 04-JUL-2022 23:40, Vent. rate has increased BY 2 BPM Confirmed by Davion Alvarez ([id number]) on 12/20/2022 5:13:24 AM Referred By: REFERRED SELF Confirmed By:Davion Alvarez
[2022-12-20] MEDS: LEVOTHYROXINE SODIUM 75 MCG TABLET PO SCH (05:32)
[2022-12-20 07:37] LABS: Basophils # (auto) 0.04 K/uL (0-0.2); Basophils % (auto) 0.5 %; Eosinophils # (auto) 0.12 K/uL (0-0.50); Eosinophils % (auto) 1.4 %; Hematocrit (blood only) 40.3 % (37.0-47.0); Hemoglobin 13.5 g/dl (12.0-16.0); Immature Granulocytes # (auto) 0.02 K/uL (0.01-0.20); Immature Granulocytes % (auto) 0.2 %; Lymphocytes # (auto) 2.02 K/uL (1.2-3.4); Lymphocytes % (auto) 23.6 %; Mean Corpuscular Hgb Conc 33.5 g/dL (32.0-36.0); Mean Corpuscular Volume 101.5 fL (80.0-100.0); Mean Platelet Volume 10.8 fL (9.4-12.4); Monocytes # (auto) 0.68 K/uL (0.11-0.59); Monocytes % (auto) 7.9 %; Neutrophils # (auto) 5.69 K/uL (1.40-6.50); Neutrophils % (auto) 66.4 %; Platelet Count 162 K/uL (130-400); RDW Standard Deviation 45.1 fL (36.4-46.3); Red Blood Count 3.97 M/uL (4.20-5.40); White Blood Count 8.57 K/ul (4.8-10.8)
[2022-12-20 07:48] LABS: BUN Creatinine Ratio 26.2 (10-20); Calcium 9.3 mg/dl (8.5-10.1); Creatinine Clr Calc Pharmacy 23.3 ml/min; Est GFR (African American) 27.6 ml/min; Est GFR (Non-African American) 23.8 ml/min; Potassium 4.4 mmol/L (3.5-5.1)
[2022-12-20] MEDS: INSULIN ASPART PER UNIT SC SCH ×4 (08:27→20:29)
[2022-12-20] MEDS: carvediloL 3.125 MG TAB PO SCH ×2 (08:46→20:28)
[2022-12-20] MEDS: TICAGRELOR 90 MG TAB PO SCH ×2 (08:46→20:27)
[2022-12-20] MEDS: PANTOprazole 40 MG TAB PO SCH ×2 (08:46→20:28)
[2022-12-20] MEDS: APIXABAN 2.5 MG TAB PO SCH ×2 (08:46→20:28)
[2022-12-20] MEDS: RANOLAZINE 500 MG ER TAB PO SCH ×2 (08:46→20:28)
[2022-12-20] MEDS: SERTRALINE HCL 50 MG TABLET PO SCH (08:46)
[2022-12-20] MEDS: LANTUS PER UNIT CHARGE SQ SCH ×2 (08:51→20:29)
--- NOTE | 2022-12-20 10:33 | Hospitalist Progress Note ---
Date of Service December 20, 2022 Assessment & Plan (1) Nausea, vomiting, and diarrhea: Plan: -Pt with clinically apparent dehydration on admission with leukocytosis, elevated lactate, CTAP findings of nonspecific colitis. -Suspect symptoms likely due to viral GI illness, stool PCR and C. diff negative. -Continue supportive care, with Zofran PRN nausea, Imodium prn for diarrhea. -Received LR at 60 cc/hr x1 bag on admit, defer further IV fluids in favor of PO fluids given CHF history. -Deferring antibiotics at present, given WBC count elevation resolved without Abx and with supportive care. (2) Elevated lactic acid level: Plan: -Lactate 2.9 -> 1.7 with IV fluids and without Abx use. -Liekly due to viral gastroenteritis and fluid losses. (3) Acute kidney injury superimposed on chronic kidney disease: Plan: -Mild TRACY likely from GI losses with history of CKD4- baseline Cr appears ~2. -Cr 2.33 on admission -> 1.91 with gentle IVF. -Holding Entresto, Bumex in setting of renal hypoperfusion. -Trend BMP. (4) Elevated troponin: Plan: -Troponin 74 on admission to 80s , rechecked today due to epigastric/substernal pain (69.9), elevated but decreased from previous. EKG without ST or T wave changes, paced rhythm. -Likely demand ischemia from GI illness, with history of mildly elevated troponins in the past and poor clearance due to CKD IV. -Echo pending given robust cardiac history and vague upper abdomen/lower chest complaints. (5) HFrEF (heart failure with reduced ejection fraction): Plan: -Chronic, stable. -Currently without evidence of hypervolemia or suspected CHF exacerbation. -Holding home Bumex for now given volume depleted on admission, monitor weights and I/Os. (6) Depression: Plan: -Continue home sertraline. (7) DM II (diabetes mellitus, type II), controlled: Plan: -A1c 7.0% in 06/06. -BSG elevated 190s on admission. -Lantus 10u BID, SSI- adjust per glucose trend. (8) Pleural effusion: Plan: -Trace R pleural effusion noted on CTAP. -No clinical hypervolemia, unlikely to represent CHF exacerbation. -Saturating well on RA since admission. (9) PAF (paroxysmal atrial fibrillation): Plan: -Currently in ventricular paced rhythm, rate-controlled. -Continue Eliquis for anticoagulation. -Continue carvedilol, digoxin. (10) CAD (coronary artery disease): Plan: -Troponin elevation unlikely to represent acute ACS, see above. -Continue ticagrelor, ranolazine, carvedilol. -Holding Entresto as above for TRACY. (11) Chronic obstructive pulmonary disease, unspecified: Plan: -Stable respiratory status on RA at present. -Continue to monitor. (12) GERD (gastroesophageal reflux disease): Plan: -Continue pantoprazole BID, and have added Carafate to see if epigastric symptoms improve. (13) Hypothyroidism: Plan: -Continue levothyroxine. Plan Supportive care with monitoring of electrolytes and hgb in setting of diarrhea. Admission and Anticipated Discharge Date Admission Date: December 18, 2022 Subjective Feeling somewhat better today, but still with epigastric discomfort and some nausea with foods. No fevers, dizziness. Today at 2:45 called by nursing for patient pain becoming more constant ache, migrating to midsternum, left shoulder blade, down left arm. No associated SOB, nausea at this time. Troponins and EKG ordered, troponin 60 actually decreased from previous. CMP and lipase pending. Review of Systems Review of Systems: All systems reviewed & are unremarkable except as noted in Subjective Physical Exam Constitutional: WD/WN, vitals as above Respiratory: normal respiratory effort, lungs clear to auscultation Cardiovascular: RRR, no murmur, no edema Gastrointestinal (Abdomen): epigastric tenderness to palpation, otherwise normal abdomen exam Skin: no rashes, warm and dry Psychiatric: A+Ox3, euthymic affect Results & Data Results & Data ([facility]) Vital Signs (Past 12 Hours) Vital Signs Temp Pulse Pulse Resp BP Pulse Ox O2 Del Method 12/20/22 07:30 36.6 C 80 16 110/62 94 Room Air 12/20/22 07:31 80 12/20/22 04:00 36.8 C 80 18 106/65 95 Room Air 12/20/22 00:02 80 12/19/22 23:00 36.8 C 79 19 135/61 95 Room Air PG Care Time/CCT Total # of Minutes Spent Total Time Spent with Patient: Total time spent is greater than 50% in coordination of care (as documented) at patient's floor/unit and/or counseling patient: Coding Level of Care Code 61085 SUB INP/OBS CARE 50MIN Diagnoses Nausea, vomiting, and diarrhea R11.2; R19.7 Elevated lactic acid level R79.89 Acute kidney injury superimposed on chronic kidney disease N17.9; N18.9 Elevated troponin R77.8 HFrEF (heart failure with reduced ejection fraction) I50.20 Depression F32.A DM II (diabetes mellitus, type II), controlled E11.21; Z79.4 Diabetes mellitus complication detail: with nephropathy Diabetes mellitus complication status: with kidney complications Diabetes mellitus rn long term care insulin use: with rn long term care use Pleural effusion J90 PAF (paroxysmal atrial fibrillation) I48.0 CAD (coronary artery disease) I25.10 Chronic obstructive pulmonary disease, unspecified J44.9 GERD (gastroesophageal reflux disease) K21.9 Hypothyroidism E03.9 Hypothyroidism type: acquired (7) DM II (diabetes mellitus, type II), controlled Diabetes mellitus complication detail: with nephropathy Diabetes mellitus complication status: with kidney complications Diabetes mellitus half-way insulin use: with half-way use Qualified Code(s): E11.21 - Type 2 diabetes mellitus with diabetic nephropathy; Z79.4 - adjunct faculty for medical terminology (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 (13) Hypothyroidism Hypothyroidism type: acquired Qualified Code(s): E03.9 - Hypothyroidism, unspecified
[2022-12-20 11:29] LABS: Appearance Urine Clear (Clear); Bacteria Urine Automated Negative (Negative); Bilirubin Urine Negative (Negative); Blood Urine Negative (Negative); Cast Urine Automated 0 /lpf (0-5); Color Urine Yellow; Epithelial Cell Urine Auto 20-30 /lpf (0-5); Glucose Urine UA Negative (Negative); Ketones Urine Negative (Negative); Leukocyte Esterase Urine Trace (Negative); Nitrite Urine Negative (Negative); Protein Urine Negative (Negative); RBC Urine Automated 0-4 /hpf (0-4); Specific Gravity Urine 1.012 (1.000-1.030); Urobilinogen Urine Negative (Negative)
[2022-12-20] MEDS: ONDANSETRON INJ 2 MG/ML 2 ML VIAL IV PRN (11:58)
[2022-12-20] MEDS: SUCRALFATE 1 GM/10 ML UDC PO SCH ×3 (12:55→20:27)
[2022-12-20 15:52] LABS: Troponin I High Sensitivity 69.9 pg/ml (0-14)
[2022-12-20] MEDS ORDERED: ACETAMINOPHEN 1,000 MG/100 ML VIAL IV STA (16:41)
--- NOTE | 2022-12-20 18:07 | XRay Report ---
KUB CLINICAL HISTORY: Fecal retention. FINDINGS: 2 AP, portable, supine abdominal radiographs are correlated with abdominal CT dated 3. There is a nonobstructed abdominal bowel gas pattern. There is only mild colonic fecal retention. No evidence of intraperitoneal free air is seen on these supine images. There are no abnormal abdomin al calcifications. Cholecystectomy clips are noted in the right upper quadrant. The skeletal structur es are osteopenic and appear intact. There is lumbosacral spondylosis. Cardiac pacemaker leads are pa rtially imaged. IMPRESSION: No acute abnormality is identified. Electronically signed by: Marcus East M.D. 12/20/2022 6:06 PM
[2022-12-20 18:47] LABS: Albumin Globulin Ratio 1.3 (0.9-2); Albumin Level 3.5 gm/dl (3.4-5.0); BUN Creatinine Ratio 24.6 (10-20); Bilirubin,Total 0.5 mg/dl (0.2-1.0); Calcium 8.7 mg/dl (8.5-10.1); Creatinine Clr Calc Pharmacy 23.3 ml/min; Est GFR (African American) 27.6 ml/min; Est GFR (Non-African American) 23.8 ml/min; Globulin 2.8 gm/dl (2.5-4.0); Total Protein 6.3 gm/dl (6.0-8.3)
[2022-12-20] MEDS ORDERED: HYDROmorphone INJ 0.5 MG/0.5 ML SYR IV PRN (21:02)
[2022-12-21] MEDS: LEVOTHYROXINE SODIUM 75 MCG TABLET PO SCH (05:34)
[2022-12-21] MEDS: INSULIN ASPART PER UNIT SC SCH ×4 (08:13→20:38)
[2022-12-21 08:33] LABS: Basophils # (auto) 0.04 K/uL (0-0.2); Basophils % (auto) 0.5 %; Eosinophils # (auto) 0.13 K/uL (0-0.50); Eosinophils % (auto) 1.6 %; Hemoglobin 13.8 g/dl (12.0-16.0); Immature Granulocytes # (auto) 0.03 K/uL (0.01-0.20); Immature Granulocytes % (auto) 0.4 %; Lymphocytes # (auto) 1.56 K/uL (1.2-3.4); Lymphocytes % (auto) 19.6 %; Mean Corpuscular Hemoglobin 33.8 pg (25.0-34.0); Mean Corpuscular Hgb Conc 33.7 g/dL (32.0-36.0); Mean Corpuscular Volume 100.5 fL (80.0-100.0); Mean Platelet Volume 10.7 fL (9.4-12.4); Monocytes % (auto) 7.5 %; Neutrophils # (auto) 5.59 K/uL (1.40-6.50); Neutrophils % (auto) 70.4 %; Platelet Count 181 K/uL (130-400); RDW Coefficient of Variation 12.1 % (11.5-14.5); RDW Standard Deviation 44.7 fL (36.4-46.3); Red Blood Count 4.08 M/uL (4.20-5.40); White Blood Count 7.95 K/ul (4.8-10.8)
[2022-12-21] MEDS: SERTRALINE HCL 50 MG TABLET PO SCH (08:46)
[2022-12-21] MEDS: SUCRALFATE 1 GM/10 ML UDC PO SCH ×4 (08:46→20:36)
[2022-12-21] MEDS: RANOLAZINE 500 MG ER TAB PO SCH ×2 (08:46→20:37)
[2022-12-21] MEDS: carvediloL 3.125 MG TAB PO SCH ×2 (08:46→20:37)
[2022-12-21] MEDS: APIXABAN 2.5 MG TAB PO SCH ×2 (08:46→20:37)
[2022-12-21] MEDS: PANTOprazole 40 MG TAB PO SCH ×2 (08:47→20:36)
[2022-12-21] MEDS: TICAGRELOR 90 MG TAB PO SCH ×2 (08:47→20:54)
[2022-12-21] MEDS: LANTUS PER UNIT CHARGE SQ SCH ×2 (08:50→20:38)
[2022-12-21 09:02] LABS: Albumin Globulin Ratio 1.2 (0.9-2); Albumin Level 3.7 gm/dl (3.4-5.0); BUN Creatinine Ratio 23.2 (10-20); Bilirubin,Total 0.5 mg/dl (0.2-1.0); Calcium 9.4 mg/dl (8.5-10.1); Creatinine Clr Calc Pharmacy 23.3 ml/min; Est GFR (African American) 27.8 ml/min; Potassium 4.4 mmol/L (3.5-5.1); Total Protein 6.7 gm/dl (6.0-8.3)
[2022-12-21] MEDS: POLYETHYLENE (MIRALAX) 17 GM PACK PO SCH (11:15)
--- NOTE | 2022-12-21 12:34 | Hospitalist Progress Note ---
Date of Service December 21, 2022 Assessment & Plan (1) Nausea, vomiting, and diarrhea: Plan: -Pt with clinically apparent dehydration on admission with leukocytosis, elevated lactate, CTAP findings of nonspecific colitis. -Suspect symptoms likely due to viral GI illness vs. gastritis, stool PCR and C. diff negative. -KUB without evidence of significant fecal retention, but noted mild retention, have added Miralax. -Continue supportive care, with Zofran PRN nausea, Imodium prn for diarrhea, Carafate, PPI. -Received LR at 60 cc/hr x1 bag on admit, defer further IV fluids in favor of PO fluids given CHF history. -Deferring antibiotics at present, given WBC count elevation resolved without Abx and with supportive care. -Nutrition consulted to discuss increasing protein strategies with patient. (2) Elevated lactic acid level: Plan: -Lactate 2.9 -> 1.7 with IV fluids and without Abx use. -Likely due to viral gastroenteritis and fluid losses. (3) Acute kidney injury superimposed on chronic kidney disease: Plan: -Mild TRACY likely from GI losses with history of CKD4- baseline Cr appears ~2, has since resolved. -Cr 2.33 on admission -> 1.91 with gentle IVF. -Holding Entresto, Bumex in setting of renal hypoperfusion on admit and not back to baseline intake at this point. -Trend BMP. (4) Elevated troponin: Plan: -Troponin 74 on admission to 80s , rechecked 12/20 due to epigastric/substernal pain (69.9), elevated but decreased from previous. EKG without ST or T wave changes, paced rhythm. -Likely demand ischemia from GI illness, with history of mildly elevated troponins in the past and poor clearance due to CKD IV. -Echo pending given robust cardiac history and vague upper abdomen/lower chest complaints. (5) HFrEF (heart failure with reduced ejection fraction): Plan: -Chronic, stable. -Currently without evidence of hypervolemia or suspected CHF exacerbation. -Holding home Bumex for now given volume depleted on admission and not with normal intake as of yet, monitor weights and I/Os. (6) Depression: Plan: -Continue home sertraline. (7) DM II (diabetes mellitus, type II), controlled: Plan: -A1c 7.0% in 06/06. -BSG elevated 190s on admission. -Lantus 8u BID, SSI- adjust per glucose trend. (8) Pleural effusion: Plan: -Trace R pleural effusion noted on CTAP on admission. -No clinical hypervolemia, unlikely to represent CHF exacerbation. -Saturating well on RA since admission. (9) PAF (paroxysmal atrial fibrillation): Plan: -Currently in ventricular paced rhythm, rate-controlled. -Continue Eliquis for anticoagulation. -Continue carvedilol, digoxin. (10) CAD (coronary artery disease): Plan: -Troponin elevation unlikely to represent acute ACS, see above. -Continue ticagrelor, ranolazine, carvedilol. -Resume Entresto at daily dosing (as opposed to BID for now given recent TRACY). (11) Chronic obstructive pulmonary disease, unspecified: Plan: -Stable respiratory status on RA at present. -Continue to monitor. (12) GERD (gastroesophageal reflux disease): Plan: -Continue pantoprazole BID, Carafate to see if epigastric symptoms improve. (13) Hypothyroidism: Plan: -Continue levothyroxine. Plan -Supportive care with monitoring of electrolytes and hgb in setting of diarrhea. Anticipate discharge tomorrow or Monday if continuing to improve. Admission and Anticipated Discharge Date Admission Date: December 18, 2022 Subjective Some improvement today and lower abdominal cramping and nausea as compared to yesterday. Still with some epigastric discomfort. Got a bit nauseous when called about food options today by kitchen, she admits that she has a low appetite for meat in general at home her whole life. She denies SOB, dizziness. Review of Systems Review of Systems: All systems reviewed & are unremarkable except as noted in Subjective Physical Exam Constitutional: WD/WN, vitals as above Respiratory: normal respiratory effort, lungs clear to auscultation Cardiovascular: RRR, no murmur, no edema Gastrointestinal (Abdomen): mild epigastric/lower quadrants tenderness to palpation, otherwise normal abdomen exam Skin: no rashes, warm and dry Psychiatric: A+Ox3, euthymic affect Results & Data Results & Data ([facility]) Vital Signs (Past 12 Hours) Vital Signs Temp Pulse Pulse Resp BP Pulse Ox O2 Del Method 12/21/22 10:50 36.4 C L 80 18 128/81 98 Room Air 12/21/22 07:30 80 12/21/22 07:26 36.4 C L 79 18 150/73 H 95 Room Air 12/21/22 03:09 36.3 C L 81 18 138/73 98 Room Air PG Care Time/CCT Total # of Minutes Spent Total Time Spent with Patient: Total time spent is greater than 50% in coordination of care (as documented) at patient's floor/unit and/or counseling patient: Coding Level of Care Code 46306 SUB INP/OBS CARE 2/35MIN Diagnoses Nausea, vomiting, and diarrhea R11.2; R19.7 Elevated lactic acid level R79.89 Acute kidney injury superimposed on chronic kidney disease N17.9; N18.9 Elevated troponin R77.8 HFrEF (heart failure with reduced ejection fraction) I50.20 Depression F32.A DM II (diabetes mellitus, type II), controlled E11.21; Z79.4 Diabetes mellitus complication detail: with nephropathy Diabetes mellitus complication status: with kidney complications Diabetes mellitus mcfp insulin use: with rat exterminator use Pleural effusion J90 PAF (paroxysmal atrial fibrillation) I48.0 CAD (coronary artery disease) I25.10 Chronic obstructive pulmonary disease, unspecified J44.9 GERD (gastroesophageal reflux disease) K21.9 Hypothyroidism E03.9 Hypothyroidism type: acquired (7) DM II (diabetes mellitus, type II), controlled Diabetes mellitus complication detail: with nephropathy Diabetes mellitus complication status: with kidney complications Diabetes mellitus rat exterminator insulin use: with mcfp use Qualified Code(s): E11.21 - Type 2 diabetes mellitus with diabetic nephropathy; Z79.4 - lobsterman (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 (13) Hypothyroidism Hypothyroidism type: acquired Qualified Code(s): E03.9 - Hypothyroidism, unspecified
[2022-12-21] MEDS: DIGOXIN 0.125 MG TAB PO SCH (16:32)
[2022-12-21] MEDS: ONDANSETRON INJ 2 MG/ML 2 ML VIAL IV PRN (20:36)
[2022-12-21] MEDS: VALSARTAN/SACUBITRIL 26/24MG TAB PO SCH (20:37)
--- NOTE | 2022-12-22 05:42 | Electrocardiogram Report ---
Test Reason : Blood Pressure : / mmHG Vent. Rate : 080 BPM Atrial Rate : 081 BPM P-R Int : 000 ms QRS Dur : 162 ms QT Int : 416 ms P-R-T Axes : 000 -83 092 degrees QTc Int : 479 ms Ventricular-paced rhythm Biventricular pacemaker detected Abnormal ECG When compared with ECG of 18-DEC-2022 17:14, Vent. rate has decreased BY 2 BPM Confirmed by Davion Alvarez ([id number]) on 12/22/2022 5:42:25 AM Referred By: REFERRED SELF Confirmed By:Davion Alvarez
[2022-12-22] MEDS: LEVOTHYROXINE SODIUM 75 MCG TABLET PO SCH (05:46)
[2022-12-22] MEDS: INSULIN ASPART PER UNIT SC SCH ×4 (08:37→20:23)
[2022-12-22] MEDS: LANTUS PER UNIT CHARGE SQ SCH ×2 (08:38→20:24)
[2022-12-22] MEDS: APIXABAN 2.5 MG TAB PO SCH ×2 (08:42→20:14)
[2022-12-22] MEDS: SERTRALINE HCL 50 MG TABLET PO SCH (08:42)
[2022-12-22] MEDS: SUCRALFATE 1 GM/10 ML UDC PO SCH ×4 (08:42→20:13)
[2022-12-22] MEDS: RANOLAZINE 500 MG ER TAB PO SCH ×2 (08:42→20:13)
[2022-12-22] MEDS: PANTOprazole 40 MG TAB PO SCH ×2 (08:42→20:13)
[2022-12-22] MEDS: carvediloL 3.125 MG TAB PO SCH ×2 (08:42→20:14)
[2022-12-22] MEDS: POLYETHYLENE (MIRALAX) 17 GM PACK PO SCH ×2 (08:42→20:15)
[2022-12-22] MEDS: TICAGRELOR 90 MG TAB PO SCH ×2 (09:05→20:15)
--- NOTE | 2022-12-22 09:29 | XCELERA ---
[id number]
[2022-12-22] MEDS ORDERED: SENNA 8.6 MG TAB PO ONE (11:22)
[2022-12-22] MEDS ORDERED: SOD PHOSPHATE/SOD BIPHOSPHATE ENEMA 132 ML BTL PR PRN (11:22)
--- NOTE | 2022-12-22 15:34 | Hospitalist Progress Note ---
Date of Service December 22, 2022 Assessment & Plan (1) Nausea, vomiting, and diarrhea: Plan: -Pt with clinically apparent dehydration on admission with leukocytosis, elevated lactate, CTAP findings of nonspecific colitis. -Suspect symptoms likely due to viral GI illness vs. gastritis, stool PCR and C. diff negative. -KUB without evidence of significant fecal retention, but noted mild retention, still with no BM today so increase MiraLAX and given senna. Can even give enema if needed if no BM through this evening. -Continue supportive care, with Zofran PRN nausea, Carafate, PPI. -Received LR at 60 cc/hr x1 bag on admit, defer further IV fluids in favor of PO fluids given CHF history, will liberalize fluid restriction. -No evidence of infectious source requiring antibiotics, defer at this time. -Nutrition consulted to discuss increasing protein strategies with patient, have also added boost. (2) Acute kidney injury superimposed on chronic kidney disease: Plan: -Mild TRACY likely from GI losses with history of CKD4- baseline Cr appears ~2, has since resolved. -Cr 2.33 on admission -> 1.91 with gentle IVF. -Holding Entresto, Bumex in setting of renal hypoperfusion on admit and not back to baseline intake at this point. -Trend BMP. (3) Elevated lactic acid level: Plan: -Resolved. -Lactate 2.9 -> 1.7 with IV fluids and without Abx use. -Likely due to viral gastroenteritis and fluid losses. (4) Elevated troponin: Plan: -Troponin 74 on admission to 80s , rechecked 3/ due to epigastric/substernal pain (69.9), elevated but decreased from previous. EKG without ST or T wave changes, paced rhythm. -Echo with EF 40-45, mild global hypokinesis of the left ventricle, unchanged from previous echocardiograms. -Likely demand ischemia from GI illness, with history of mildly elevated troponins in the past and poor clearance due to CKD IV. (5) HFrEF (heart failure with reduced ejection fraction): Plan: -Chronic, stable. Dry weight is 85 kg. -Currently without evidence of hypervolemia or suspected CHF exacerbation. -Holding home Bumex for now given volume depleted on admission and given that weight is lower than her dry weight at this time. -Monitor weights and I/Os. (6) Depression: Plan: -Continue home sertraline. (7) DM II (diabetes mellitus, type II), controlled: Plan: -A1c 7.0% in 06/06. -BSG elevated 190s on admission. -Lantus 8u BID, SSI-continue at current dosing as patient's BSG ranges 28759. (8) Pleural effusion: Plan: -Trace R pleural effusion noted on CTAP on admission. -No clinical hypervolemia, unlikely to represent CHF exacerbation. -Saturating well on RA since admission. (9) PAF (paroxysmal atrial fibrillation): Plan: -Currently in ventricular paced rhythm, rate-controlled. -Continue Eliquis for anticoagulation. -Continue carvedilol, digoxin. (10) CAD (coronary artery disease): Plan: -Troponin elevation unlikely to represent acute ACS, see above. -Continue ticagrelor, ranolazine, carvedilol. -Continue Entresto at daily dosing (as opposed to BID for now given recent TRACY). (11) Chronic obstructive pulmonary disease, unspecified: Plan: -Stable respiratory status on RA at present. -Continue to monitor. (12) GERD (gastroesophageal reflux disease): Plan: -Continue pantoprazole BID, Carafate at this time as it seems that her epigastric pain is improving with these interventions, and continue PPI on discharge. (13) Hypothyroidism: Plan: -Continue levothyroxine. Plan -Supportive care with monitoring of electrolytes and hgb in setting of diarrhea. Anticipate discharge tomorrow if continuing to improve and has had a bowel movement. Admission and Anticipated Discharge Date Admission Date: December 18, 2022 Subjective Patient without any acute overnight events, she reports that her epigastric pain is improved today, still with lower abdominal cramping. Still with no BM since 12/19 (she was given Imodium that day for diarrhea). She denies any chest pain or shoulder pain at this time. No complaints of shortness of breath. Review of Systems Review of Systems: All systems reviewed & are unremarkable except as noted in Subjective Physical Exam Constitutional: WD/WN, vitals as above Respiratory: normal respiratory effort, lungs clear to auscultation Cardiovascular: RRR, no murmur, no edema Gastrointestinal (Abdomen): mild lower quadrants tenderness to palpation, otherwise normal abdomen exam Skin: no rashes, warm and dry Psychiatric: A+Ox3, euthymic affect Results & Data Results & Data ([facility]) Vital Signs (Past 12 Hours) Vital Signs Temp Pulse Pulse Resp BP Pulse Ox O2 Del Method 12/22/22 12:03 36.8 C 77 18 107/67 96 Room Air 12/22/22 07:25 37.0 C 79 18 112/64 95 Room Air 12/22/22 07:16 80 PG Care Time/CCT Total # of Minutes Spent Total Time Spent with Patient: Total time spent is greater than 50% in coordination of care (as documented) at patient's floor/unit and/or counseling patient: Coding Level of Care Code 25711 SUB INP/OBS CARE 2/35MIN Diagnoses Nausea, vomiting, and diarrhea R11.2; R19.7 Acute kidney injury superimposed on chronic kidney disease N17.9; N18.9 Elevated lactic acid level R79.89 Elevated troponin R77.8 HFrEF (heart failure with reduced ejection fraction) I50.20 Depression F32.A DM II (diabetes mellitus, type II), controlled E11.21; Z79.4 Diabetes mellitus mcfp insulin use: with watermelon inspector use Diabetes mellitus complication status: with kidney complications Diabetes mellitus complication detail: with nephropathy Pleural effusion J90 PAF (paroxysmal atrial fibrillation) I48.0 CAD (coronary artery disease) I25.10 Chronic obstructive pulmonary disease, unspecified J44.9 GERD (gastroesophageal reflux disease) K21.9 Hypothyroidism E03.9 Hypothyroidism type: acquired (7) DM II (diabetes mellitus, type II), controlled Diabetes mellitus watermelon inspector insulin use: with mcfp use Diabetes mellitus complication status: with kidney complications Diabetes mellitus complication detail: with nephropathy Qualified Code(s): E11.21 - Type 2 diabetes mellitus with diabetic nephropathy; Z79.4 - terminal worker (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 (13) Hypothyroidism Hypothyroidism type: acquired Qualified Code(s): E03.9 - Hypothyroidism, unspecified
[2022-12-22] MEDS: VALSARTAN/SACUBITRIL 26/24MG TAB PO SCH (20:13)
[2022-12-23] MEDS: LEVOTHYROXINE SODIUM 75 MCG TABLET PO SCH (05:24)
[2022-12-23] MEDS ORDERED: DOCUSATE SODIUM/SENNA 50/8.6MG TAB PO ONE (08:07)
--- NOTE | 2022-12-23 08:08 | Discharge Summary ---
Discharge Summary Date of Service December 23, 2022 Admission HPI Per Admitting Provider 82 yo F with complex PMH including anemia, CKD4, pAF on Eliquis, CAD, COPD, HFrEF with biventricular ICD, DM2, hypothyroidism, aortic stenosis s/p TAVR 2019, carotid artery stenoses s/p CEA b/l 2015, depression, history of CVA presenting with diarrhea. She reports onset of generalized abdominal pain, nausea, NBNB emesis and watery diarrhea starting on 12/15. Has not been able to eat or drink much at all and unfortunately she has not been able to take her medications because of this. Denies any chest pain, dyspnea, melena, hematochezia. No recent travel or sick contacts, no fevers. She endorses continual fatigue and notes unintentional 8 lb weight loss since symptoms began. Pt arrived to ER hemodynamically stable. ED labs significant for WBC 16.6, Na 134, BUN 60, Cr 2.3, glucose 195, lactate 2.9, troponin 74. RVP negative, lipase normal. CTAP with findings of nonspecific colitis and partial large bowel distension, trace R pleural effusion. ER interventions include 1L NSS bolus and Zofran. On my evaluation, she reports fatigue but improvement in nausea and no further diarrhea since being in ER. Admission Exam Per Admitting Provider Constitutional: Alert, oriented, in no acute distress, tired-appearing, laying in bed HEENT: Head is atraumatic and normocephalic. PERRLA, EOM intact. Sclera anicteric. Face is symmetric. No perioral cyanosis. Mucous membranes dry. Neck: Supple, no JVD, no lymphadenopathy Pulmonary: Normal respiratory effort. No wheezes, rales, crackles. Cardiac: Regular rate and rhythm. S1-S2 normal. Grade 2/6 systolic murmur Extremities: Trace pretibial edema bilaterally L>R. No clubbing or cyanosis. Pulses 1+ and symmetric Abdomen: Normal bowel sounds, soft, nondistended, mildly tender along lower abdomen from RLQ to LLQ, no abdominal mass palpated Skin: Normal skin color, turgor, and pigmentation, no rash, no skin lesions Neurological: Oriented to person, place, and time Principal Dx & Hospital Course #1 = Principal Diagnosis (1) Nausea, vomiting, and diarrhea: -Pt with clinically apparent dehydration on admission with leukocytosis, elevated lactate, CTAP findings of nonspecific colitis. -Suspect symptoms likely due to viral GI illness vs. gastritis, stool PCR and C. diff negative. -KUB without evidence of significant fecal retention, but noted mild retention, did have small BM overnight. Discharged with recommendations for Senna and Miralax for goal of one soft formed BM daily -No evidence of infectious source requiring antibiotics, deferred at this time. -Nutrition consulted to discuss increasing protein strategies with patient, have also added boost. (2) Acute kidney injury superimposed on chronic kidney disease: -Mild TRACY likely from GI losses with history of CKD4- baseline Cr appears ~2, has since resolved. -Cr 2.33 on admission -> 1.91 with gentle IVF. -Entresto, Bumex resumed. (3) Elevated lactic acid level: -Resolved. -Lactate 2.9 -> 1.7 with IV fluids and without Abx use. -Likely due to viral gastroenteritis and fluid losses. (4) Elevated troponin: -Troponin 74 on admission to 80s , rechecked 12/20 due to epigastric/substernal pain (69.9), elevated but decreased from previous. EKG without ST or T wave changes, paced rhythm. -Echo with EF 40-45, mild global hypokinesis of the left ventricle, unchanged from previous echocardiograms. -Likely demand ischemia from GI illness, with history of mildly elevated troponins in the past and poor clearance due to CKD IV. (5) HFrEF (heart failure with reduced ejection fraction): -Chronic, stable. Dry weight is 85 kg. -Without evidence of hypervolemia or suspected CHF exacerbation this admission. -Follow up with Latrice Mcmanus with CHF clinic. (6) Depression: -Continue home sertraline. (7) DM II (diabetes mellitus, type II), controlled: -A1c 7.0% in 06/06. -Continue home DM2 regimen. (8) Pleural effusion: -Trace R pleural effusion noted on CTAP on admission. -No clinical hypervolemia, unlikely to represent CHF exacerbation. -Saturating well on RA since admission. (9) PAF (paroxysmal atrial fibrillation): -Remained in ventricular paced rhythm, rate-controlled. -Continue Eliquis for anticoagulation. -Continue carvedilol, digoxin. (10) CAD (coronary artery disease): -Troponin elevation unlikely to represent acute ACS, see above. -Continue ticagrelor, ranolazine, carvedilol. -Continue Entresto home dosing. (11) Chronic obstructive pulmonary disease, unspecified: -Stable respiratory status on RA this admission. (12) GERD (gastroesophageal reflux disease): -Continue pantoprazole BID on discharge; received Carafate for a few days while admitted, will not continue on discharge. (13) Hypothyroidism: -Continue levothyroxine. Discharge Exam Constitutional WD/WN, vitals as above Respiratory normal respiratory effort, lungs clear to auscultation Cardiovascular RRR, no murmur, no edema Gastrointestinal (Abdomen) normal bowel sounds, soft, nontender, no hepatosplenomegaly Skin no rashes, warm and dry Psychiatric A+Ox3, euthymic affect Updated Medication List Medication Instructions Recorded Confirmed Type magnesium oxide 400 mg PO QPM #90 caps 04/01/19 12/18/22 Rx vitamin E 268 mg (400 unit) capsule 400 unit PO QAM 03/29/20 12/18/22 History cholecalciferol (vitamin D3) 25 1,000 unit PO QAM 05/17/21 12/18/22 History mcg (1,000 unit) capsule garlic 1,000 mg capsule 1,000 mg PO QPM 09/07/21 12/18/22 History anastrozole 1 mg tablet (Arimidex) 1 mg PO QAM 11/11/21 12/18/22 History sertraline 25 mg tablet 25 mg PO DAILY #30 tabs 05/30/22 12/18/22 Rx trazodone 50 mg tablet 50 mg PO HS PRN insomnia #90 tabs 06/23/22 12/18/22 Rx ascorbate calcium (vitamin C) 500 500 mg PO DAILY 06/27/22 12/18/22 History mg tablet potassium gluconate 595 mg (99 mg) 595 mg PO DAILY 06/27/22 12/18/22 History tablet bumetanide 1 mg tablet 1 mg PO BID #120 tabs 07/14/22 12/18/22 Rx carvedilol 3.125 mg tablet 3.125 mg PO BID 07/26/22 12/18/22 History insulin syringe-needle U-100 0.3 #100 ea 08/15/22 12/01/22 Rx mL 31 gauge x 5/16" (BD SafetyGlide Insulin Syringe) ticagrelor 90 mg tablet (Brilinta) 90 mg PO BID #180 tabs 08/15/22 12/18/22 Rx ondansetron HCl 4 mg tablet 4 mg PO Q8H PRN nausea and 09/27/22 12/18/22 Rx vomiting #30 tabs levothyroxine 75 mcg tablet 75 mcg PO QAM #90 tabs 10/05/22 12/18/22 Rx apixaban 2.5 mg tablet (Eliquis) 2.5 mg PO BID #180 tabs 10/18/22 12/18/22 Rx digoxin 125 mcg (0.125 mg) tablet 125 mcg PO 3XWK #36 tabs 10/31/22 12/18/22 Rx calcitriol 0.25 mcg capsule 0.25 mcg PO 3XWK #12 caps 11/14/22 12/18/22 Rx (Rocaltrol) gabapentin 100 mg capsule 100 mg PO HS #30 caps 11/28/22 12/18/22 Rx insulin aspar prt-insulin aspart 15 - 30 unit (0.15 - 0.3 mL) 11/28/22 12/18/22 Rx 100 unit/mL (70-30) subcutaneous subcut AMPM #30 mL soln (Novolog Mix 70-30 U-100 Insuln) mupirocin 2 % topical ointment 1 applic topical BID #15 grams 11/28/22 12/18/22 Rx ranolazine 500 mg tablet,extended 500 mg PO BID 12/18/22 12/18/22 History release,12 hr pantoprazole 40 mg tablet,delayed 40 mg PO BID #180 tabs 12/20/22 12/18/22 Rx release (Protonix) polyethylene glycol 3350 17 17 g PO TID #119 grams 12/23/22 12/18/22 Rx gram/dose oral powder (Miralax) sennosides 8.6 mg capsule (senna) 8.6 mg PO DAILY PRN constipation 12/23/22 Rx #10 caps Hospital Stay Data Consultations 12/18/22 19:06 ED Decision to Admit Stat Diagnostic Imagining Performed 12/18/22 17:28 CT abd pelvis wo con Stat Pending Results Patient Have Any Pending Studies at Discharge: No Discharge Instructions Given to Patient (Per Discharging Provider) You are admitted to the hospital for evaluation of diarrhea and nausea. Your bacterial stool studies did not show any infection. Your imaging of your belly also did not show any specific bacterial infection. It did show enteritis, or inflammation of the colon, then this is commonly due to a viral infection. With IV fluids, bowel rest, and time, your symptoms began to improve and you are felt to be safe for discharge home with the following recommendations: 1. You can resume your home medications as prescribed by your primary care doctor. 2. Over the next couple of days you should adjust your diet slowly to a diet that is more normal for you, keeping to things that are more low fiber and are more belly friendly. It is also important to maintain an appropriate fluid balance, so be sure to supplement any diarrhea that you may have with oral water intake, being mindful of not having too much water due to your heart history. 3. I recommend taking Senna daily, which is a tablet available over the counter. I also recommend taking Miralax 1 capful with every meal until your bowel movements are regular and soft. Once they become soft, you can scale back on the constipation medications. 3. Please call your primary care doctor's office to schedule an appointment for a week or 2 from now, so that they can evaluate and make sure that you are continuing to get better. Around this time you should also have repeat lab work to evaluate your electrolytes and kidneys given your recent illness. 4. Follow up with Latrice Mcmanus with the Heart Failure clinic for guidance on any bumex changes. If your symptoms worsen or you are having new symptoms that are concerning to you, please call your primary care doctor, or if urgently concerned, seek urgent medical attention Total Time Total Time Spent Total Time Spent (In Minutes): 45 min Coding Level of Care Code 99052 INP/OBS DISCH >30 MIN Diagnoses Nausea, vomiting, and diarrhea R11.2; R19.7 Acute kidney injury superimposed on chronic kidney disease N17.9; N18.9 Elevated lactic acid level R79.89 Elevated troponin R77.8 HFrEF (heart failure with reduced ejection fraction) I50.20 Depression F32.A DM II (diabetes mellitus, type II), controlled E11.21; Z79.4 Diabetes mellitus complication detail: with nephropathy Diabetes mellitus complication status: with kidney complications Diabetes mellitus [facility] insulin use: with intermediate designer use Pleural effusion J90 PAF (paroxysmal atrial fibrillation) I48.0 CAD (coronary artery disease) I25.10 Chronic obstructive pulmonary disease, unspecified J44.9 GERD (gastroesophageal reflux disease) K21.9 Hypothyroidism E03.9 Hypothyroidism type: acquired
[2022-12-23] MEDS: INSULIN ASPART PER UNIT SC SCH ×2 (08:35→12:20)
[2022-12-23] MEDS: LANTUS PER UNIT CHARGE SQ SCH (08:36)
[2022-12-23] MEDS: SERTRALINE HCL 50 MG TABLET PO SCH (08:39)
[2022-12-23] MEDS: SUCRALFATE 1 GM/10 ML UDC PO SCH ×2 (08:40→12:20)
[2022-12-23] MEDS: PANTOprazole 40 MG TAB PO SCH (08:40)
[2022-12-23] MEDS: carvediloL 3.125 MG TAB PO SCH (08:40)
[2022-12-23] MEDS: TICAGRELOR 90 MG TAB PO SCH (08:40)
[2022-12-23] MEDS: POLYETHYLENE (MIRALAX) 17 GM PACK PO SCH (08:40)
[2022-12-23] MEDS: RANOLAZINE 500 MG ER TAB PO SCH (08:40)
[2022-12-23] MEDS: APIXABAN 2.5 MG TAB PO SCH (08:40)
== END 2022-12-23 16:40 | disposition home or self-care (01) | DRG 392 ==
LOC: ED 17:01 → 2N 20:03 → SUATTDRO 20:03 → 2N 22:30

== ENCOUNTER 2023-01-14 11:24 | Observation (INO) ==
--- NOTE | 2023-01-14 11:55 | Emergency Department Note ---
Impression & Plan Acute dyspnea, Exertional dyspnea ED Provider Note INFORMANT: Patient ED PROVIDER(S): Yao Fields DO CHIEF COMPLAINT: Shortness of breath PLAN: Disposition: Admission Outpatient prescription management: none Discussion with: I spoke with the hospitalist, who will see the patient for admission/observation and further evaluation and consultation. MEDICAL DECISION MAKING: This is a 82-year-old female who presents to the ED with a chief complaint of shortness of breath. She is chronically on Eliquis for A-fib and has a ventricular pacemaker. The patient states that she has been feeling short of breath for the past 6 days. Seems a little worse with exertion. The patient has no other specific complaints at this time. Her vital signs are stable. Oxygen saturations here is 96% to 98% on room air. A twelve-lead EKG shows a ventricular paced rhythm at a rate of 87. Exam reveals clear lung sounds. No pedal edema or tenderness in the calves. Heart is regular rate and rhythm. CBC did not show any concerning anemia or leukocytosis. Chronic kidney dysfunction is noted. No significant change from baseline. Troponin is mildly elevated at 38. Again near baseline for the patient and likely related to her chronic kidney dysfunction. Chest x-ray did not show any pneumonia or pneumothorax. Chemistry panel was otherwise unremarkable. The patient was told the results of the test. The patient states that she does not want to go home until her sym ptoms are figured out. She was here last week for the same symptoms and she has been the same since that time. She reports dyspnea on short distance walks. The patient will be seen by the hospitalist for further evaluation and care. Triage Nursing notes reviewed. Vital Signs: reviewed Prior /Outside records reviewed: Heart failure visit from 01/05/2023, valvular heart disease, acute on chronic CHF, cardiomyopathy, TAVR Differential diagnosis: The differential that was considered includes acute myocardial infarction, acute coronary syndrome, myocarditis, pericarditis, pericardial effusions /tamponade, esophageal perforation, thoracic aortic dissection, pulmonary embolism, pneumonia, pneumothorax, pancreatitis, shingles, acute cholecystitis, perforated abdominal viscus. Diagnostics, as interpreted by me: 12 lead ECG: Ventricular paced rhythm at a rate of 87. Cardiac Monitoring ordered: Sinus rhythm in the 80s Medical decision rules: [none] Imaging studies: Chest x-ray: No acute disease. No pneumonia or pneumothorax Procedures: none. Critical care: none. HPI: See MDM above. PAST MEDICAL HISTORY: See Below PAST SURGICAL HISTORY: See Below SOCIAL HISTORY: See Below HOME MEDICATIONS: See Below ALLERGIES: See Below VITALS: [See Below] PHYSICAL EXAMINATION: See MDM for positive findings otherwise unremarkable. CONSTITUTIONAL/VITAL SIGNS: Reviewed GENERAL:done as appropriate INTEGUMENTARY: done as appropriate HEAD: done as appropriate EYES: done as appropriate RESPIRATORY: done as appropriate CARDIOVASCULAR:done as appropriate GI/ABDOMEN:done as appropriate EXTREMITIES: done as appropriate NEUROLOGICAL: done as appropriate PSYCHIATRIC:done as appropriate MUSCULOSKELETAL:done as appropriate TRIAGE NURSING DOCUMENTATION REVIEWED. Past Med/Surg History Medical History (Updated 01/14/23 @ 12:42 by Yao Fields DO) Acute kidney injury superimposed on chronic kidney disease Anemia due to chronic kidney disease Antiplatelet or antithrombotic long-term use Aortic stenosis, severe S/p TAVR 10/2019 Bilateral carotid artery stenosis H/o bilateral CEAs in 2016 Per 07/2021 vascular note- carotid ultrasound from office visit showed patent right CEA with velocities suggesting 50-59% stenosis restenosis Patent left CEA with velocities suggesting 99% restenosis - had re-do of left CEA 09/27/21 Biventricular ICD (implantable cardioverter-defibrillator) in place (04/30/20) [employer] implanted 04/30/2020. Capped right ventricular pacing lead Last check 09/2021 Breast cancer, right Right breast mastectomy 09/17/21 at [facility] CAD (coronary artery disease) F/U DR CUEVA S/p NATY x 1 to Cx in 2019; NATY to ostial LM 01/10/20 Chronic combined systolic and diastolic CHF (congestive heart failure) EF 40% per 10/16/21 ECHO Chronic kidney disease STAGE IV-F/U DR SALINAS Chronic obstructive pulmonary disease, unspecified Breathing stable Depression Diabetes mellitus, type 2 Glucose fluctuates DVT (deep venous thrombosis) LOWER LEG 2019 GERD (gastroesophageal reflux disease) History of CVA (cerebrovascular accident) Had RUE weakness and numbness after 09/17/21 breast surgery- CT scan of head negative; unable to do MRI due to ICD Per PCP records 10/22/21= "Cary her post op RUE sx related to possible small stroke/TIA" Hyperlipidemia Hypothyroidism Insomnia Ischemic cardiomyopathy Left bundle branch block Nausea and vomiting after administration of anesthetic agent severe PONV s/p Left carotid surgery 09/27/21 at [facility] Non-ST elevation [place] (NSTEMI) NSTEMI (non-ST elevated myocardial infarction) Most recent 12/2019 (mild per patient) PAD (peripheral artery disease) S/p [employer]BLE CUT[employer] OPERATOR and stenting of right SFA, and MARBLE CUTTER OPERATOR of left SFA and common femoral artery PAF (paroxysmal atrial fibrillation) Pulmonary hypertension RVSP 40-45mmHg on 10/2020 ECHO Rheumatoid arthritis No medications Followed with rheum in the past- no recent issues Secondary hyperparathyroidism of renal origin SOB (shortness of breath) on exertion Spondylosis Subclavian artery stenosis Surgical History H/O colonoscopy H/O heart artery stent H/O: section History of appendectomy History of cardiac cath TOTAL 6? STENTS- 2018 and 2019 History of cataract surgery right and left History of cholecystectomy History of hysterectomy History of left-sided carotid endarterectomy (09/27/21) redo L CEA, Dr Bateman History of oophorectomy S/P angioplasty (02/03/21) MARBLE CUTTER OPERATOR L SFA S/P AV hiren ablation (06/30/22) S/P carotid endarterectomy B/l 2015 S/P coronary artery stent placement (10/2017) NATY to mid LAD S/P coronary artery stent placement (10/2018) NATY prox mid LAD 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) S/P thoracentesis (03/2020) b/l d/t CHF Status post partial mastectomy of right breast (09/17/21) 09/17/21 - Done under [facility] with LMA #4. Atraumatic LMA insertion. Magnet placed secondary to pacemaker. Right Breast Partial Mastectomy with [place] [employer] Localization, Right Axillary [place] Lymph Node Biopsy(Right) - Hua Acosta DO Family History Daughter Coronary heart disease Diabetes Mother Diabetes Family history of hypercholesterolemia Myocardial infarction Hypertension Stroke Brother Colorectal cancer Father Accident Brother Diabetes Family/Other Myocardial infarction Son Coronary heart disease Hypertension Other Pacemaker Denies family history of Ovarian cancer Prostate cancer Breast cancer Social History Smoking Status: Never smoker Second Hand Exposure: No; Hx Alcohol Use: No Hx Substance Use: No Preferred Language: [place] Citizen Communication Ability: Effective Visual Impairment: No Limitations Hearing Ability: Hard of Hearing Airplane Dispatcher Required: No Beliefs That Will Affect Care: None marital status: / marital status details: passed 2000 Current Living Situation: Alone current occupational status: retired 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 How many Children do You have: 2 Feels Safe at Home: Yes caffeine: Yes (1 cup/day) during the past year weight has: remained stable Seatbelt Use: always Assistive Devices: Cane and Walker Allergies Allergies Allergy/AdvReac Type Severity Reaction Status Date / Time adhesive Allergy Intermediate REDNESS Verified 01/05/23 15:25 AND IRRITATION FROM PAIN PATCH, TAPE latex Allergy Intermediate ALLERGIC Verified 01/05/23 15:25 TO LATEX TAPE/RASH/ITCHING morphine Allergy Intermediate swelling Verified 01/05/23 15:25 nausea vomiting olmesartan Allergy Unknown UNKNOWN Verified 01/05/23 15:25 benzonatate AdvReac Intermediate confusion Verified 01/05/23 15:25 [From Tessalon Perlluis fernando] dulaglutide [From Trulicity] AdvReac Intermediate AFFECTS Verified 01/05/23 15:2 5 MUSCLES exenatide [From Byetta] AdvReac Intermediate Diarrhea Verified 01/05/23 15:25 ezetimibe AdvReac Intermediate MUSCLE Verified 01/05/23 15:25 ACHES glipizide AdvReac Intermediate Diarrhea Verified 01/05/23 15:25 glyburide AdvReac Intermediate Diarrhea Verified 01/05/23 15:25 lisinopril AdvReac Intermediate LIGHTHEADED Verified 01/05/23 15:25 AND DIZZY losartan AdvReac Intermediate dizziness Verified 01/05/23 15:25 metformin AdvReac Intermediate Diarrhea Verified 01/05/23 15:25 pioglitazone AdvReac Intermediate DIARRHEA Verified 01/05/23 15:25 NAUSEA sitagliptin [From Januvia] AdvReac Intermediate Diarrhea Verified 01/05/23 15:25 Rjlucob-QER-IvQ Reductase AdvReac Intermediate myalgias Verified 01/05/23 15:25 Inhibitor and [Uunjmgq-Lqa-Ibi Reductase weakness Inhibitor] aspirin AdvReac Mild GI SYMPTOMS Verified 01/05/23 15:25 Home Meds Home Medications Medication Instructions Recorded Confirmed vitamin E 268 mg (400 unit) capsule 400 unit PO QAM 03/29/20 01/03/23 cholecalciferol (vitamin D3) 25 1,000 unit PO QAM 05/17/21 01/03/23 mcg (1,000 unit) capsule garlic 1,000 mg capsule 1,000 mg PO QPM 09/07/21 01/03/23 anastrozole 1 mg tablet (Arimidex) 1 mg PO QAM 11/11/21 01/03/23 ascorbate calcium (vitamin C) 500 500 mg PO DAILY 06/27/22 01/03/23 mg tablet potassium gluconate 595 mg (99 mg) 595 mg PO DAILY 06/27/22 01/03/23 tablet carvedilol 3.125 mg tablet 3.125 mg PO BID 07/26/22 01/03/23 ranolazine 500 mg tablet,extended 500 mg PO BID 12/18/22 01/03/23 release,12 hr Previous Rx's Medication Instructions Recorded magnesium oxide 400 mg PO QPM #90 caps 04/01/19 sertraline 25 mg tablet 25 mg PO DAILY #30 tabs 05/30/22 trazodone 50 mg tablet 50 mg PO HS PRN insomnia #90 tabs 06/23/22 bumetanide 1 mg tablet 1 mg PO BID #120 tabs 07/14/22 insulin syringe-needle U-100 0.3 #100 ea 08/15/22 mL 31 gauge x 5/16" (BD SafetyGlide Insulin Syringe) ticagrelor 90 mg tablet (Brilinta) 90 mg PO BID #180 tabs 08/15/22 ondansetron HCl 4 mg tablet 4 mg PO Q8H PRN nausea and 09/27/22 vomiting #30 tabs levothyroxine 75 mcg tablet 75 mcg PO QAM #90 tabs 10/05/22 apixaban 2.5 mg tablet (Eliquis) 2.5 mg PO BID #180 tabs 10/18/22 digoxin 125 mcg (0.125 mg) tablet 125 mcg PO 3XWK #36 tabs 10/31/22 gabapentin 100 mg capsule 100 mg PO HS #30 caps 11/28/22 insulin aspar prt-insulin aspart 15 - 30 unit (0.15 - 0.3 mL) 11/28/22 100 unit/mL (70-30) subcutaneous subcut AMPM #30 mL soln (Novolog Mix 70-30 U-100 Insuln) mupirocin 2 % topical ointment 1 applic topical BID #15 grams 11/28/22 polyethylene glycol 3350 17 17 g PO TID #119 grams 12/23/22 gram/dose oral powder (Miralax) sennosides 8.6 mg capsule (senna) 8.6 mg PO DAILY PRN constipation 12/23/22 #10 caps calcitriol 0.25 mcg capsule 0.25 mcg PO 3XWK #12 caps 01/03/23 (Rocaltrol) pantoprazole 40 mg tablet,delayed 40 mg PO BID #180 tabs 01/03/23 release (Protonix) sacubitril 24 mg-valsartan 26 mg 1 tab PO BID #180 tabs 01/03/23 tablet (Entresto) Results & Data (ED) Vital Signs Vital Signs - 24 hr 01/14/23 11:43 01/14/23 11:43 01/14/23 11:54 Temperature 36.6 C 36.6 C Temperature Source Oral Oral Pulse Rate 83 Pulse Rate [Apical] 83 Respiratory Rate 28 H 28 H Respiratory Effort / Characteristics Spontaneous Short of Breath SOB on Exertion Spontaneous Short of Breath SOB on Exertion Short of Breath SOB on Exertion Respiratory Depth Deep Respiratory Pattern Tachypnea Tachypnea Tachypnea Blood Pressure 141/75 H Blood Pressure [Right Arm] 141/75 H Blood Pressure Mean 97 Blood Pressure Mean [Right Arm] 97 Blood Pressure Position [Right Arm] Lying Pulse Oximetry 98 98 Oxygen Delivery Method Room Air Room Air Room Air Oxygen Flow Rate 98 Sepsis Recent Fever Within 48 Hours No Sepsis New/Unexplained Change in Mental Status No Sepsis Action Taken by Nursing No Action Required 01/14/23 11:54 01/14/23 12:24 Temperature Temperature Source Pulse Rate 82 Pulse Rate [Apical] Respiratory Rate Respiratory Effort / Characteristics Respiratory Depth Respiratory Pattern Blood Pressure Blood Pressure [Right Arm] Blood Pressure Mean Blood Pressure Mean [Right Arm] Blood Pressure Position [Right Arm] Pulse Oximetry 98 Oxygen Delivery Method Room Air Oxygen Flow Rate Sepsis Recent Fever Within 48 Hours Sepsis New/Unexplained Change in Mental Status Sepsis Action Taken by Nursing Laboratory Data 01/14/23 11:35 01/14/23 11:35 Lab Results 01/14/23 01/14/23 Range/Units 11:35 11:35 WBC 7.72 (4.8-10.8) K/ul RBC 4.04 L (4.20-5.40) M/uL Hgb 13.7 (12.0-16.0) g/dl Hct 40.8 (37.0-47.0) % MCV 101.0 H (80.0-100.0) fL MCH 33.9 (25.0-34.0) pg MCHC 33.6 (32.0-36.0) g/dL RDW Std Deviation 45.9 (36.4-46.3) fL RDW Coeff of Manuela 12.3 (11.5-14.5) % Plt Count 227 (130-400) K/uL MPV 10.5 (9.4-12.4) fL Immature Gran % (Auto) 0.4 % Neut % (Auto) 65.8 % Lymph % (Auto) 24.5 % [place] % (Auto) 7.3 % Eos % (Auto) 1.6 % Baso % (Auto) 0.4 % Neut # (Auto) 5.09 (1.40-6.50) K/uL Lymph # (Auto) 1.89 (1.2-3.4) K/uL [place] # (Auto) 0.56 (0.11-0.59) K/uL Eos # (Auto) 0.12 (0-0.50) K/uL Baso # (Auto) 0.03 (0-0.2) K/uL Immature Gran # (Auto) 0.03 (0.01-0.20) K/uL Sodium 139 (136-145) mmol/L Potassium 4.1 (3.5-5.1) mmol/L Chloride 100 (98-107) mmol/L Carbon Dioxide 28 (21-32) mmol/L Anion Gap 11 (3-11) BUN 57 H (6-23) mg/dl Creatinine 2.42 H (0.6-1.2) mg/dl Est Cr Clr Drug Dosing 19.0 ml/min Est GFR ( Amer) 20.7 ml/min Est GFR (Non-Af Amer) 17.9 ml/min BUN/Creatinine Ratio 23.6 H (10-20) Glucose 130 H (70-99(Fasting)) mg/dl Calcium 9.2 (8.6-10.3) mg/dl Total Bilirubin 0.6 (0.2-1.0) mg/dl AST 18 (13-39) U/L ALT 20 (7-52) U/L Alkaline Phosphatase 92 (34-104) U/L Troponin I High Sens 38.6 H (0-14) pg/ml Total Protein 7.1 (6.0-8.3) gm/dl Albumin 3.8 (3.4-5.0) gm/dl Globulin 3.3 (2.5-4.0) gm/dl Albumin/Globulin Ratio 1.2 (0.9-2) Imaging Data Radiologist's Impression: Chest X-Ray 01/14/23 11:46 XR chest 1V portable CLINICAL HISTORY: Dyspnea TECHNIQUE: Single frontal radiograph of the chest was obtained. Comparison: Comparison is made to chest radiograph 01/09/2023 FINDINGS: Pacemaker defibrillator is seen. Cardiomegaly is noted. The aortic arch is calcified. The lungs are clear. Redemonstration of blunting of the right costophrenic angle which is likely due to extrapleural fat as before. IMPRESSION: No acute chest disease. ACT 112: Negative or not required by law. Electronically signed by: Gato Nagel M.D. 01/14/2023 12:14 PM Discharge Plan Visit Data Chief Complaint: Shortness of Breath/Dyspnea Stated Complaint: SOB, CHEST PAIN ED Provider: Yao Fields Discharge Problem: Acute dyspnea, Exertional dyspnea Patient Disposition: Being Evaluated by Hospitalist Forms Stand Alone Forms: [facility] Prescriptions Prescriptions: No Action cholecalciferol (vitamin D3) 25 mcg (1,000 unit) capsule 1,000 unit PO QAM trazodone 50 mg tablet 50 mg PO HS PRN (Reason: insomnia) Qty: 90 1RF Brilinta 90 mg tablet 90 mg PO BID Qty: 180 3RF (DME) insulin syringe-needle U-100 [BD SafetyGlide Insulin Syringe] 0.3 mL 31 gauge x 5/16" syringe See Rx Instructions .Route Qty: 100 3RF Rx Instructions: test three times daily ondansetron HCl 4 mg tablet 4 mg PO Q8H PRN (Reason: nausea and vomiting) Qty: 30 0RF levothyroxine 75 mcg tablet 75 mcg PO QAM Qty: 90 1RF Eliquis 2.5 mg tablet 2.5 mg PO BID Qty: 180 3RF digoxin 125 mcg (0.125 mg) tablet 125 mcg PO 3XWK Qty: 36 1RF Rx Instructions: MONDAY/MONDAY/MONDAY IN THE AM magnesium oxide 400 mg magnesium capsule 400 mg PO QPM Qty: 90 0RF Hold Instructions: hypermagnesemia anastrozole [Arimidex] 1 mg tablet 1 mg PO QAM ascorbate calcium (vitamin C) 500 mg tablet 500 mg PO DAILY potassium gluconate 595 mg (99 mg) tablet 595 mg PO DAILY Hold Instructions: hyperkalemia bumetanide 1 mg tablet 1 mg PO BID Qty: 120 3RF Rx Instructions: May increase to 3 mg BID for edema, swelling, weight gain. sertraline 25 mg tablet 25 mg PO DAILY Qty: 30 2RF carvedilol 3.125 mg tablet 3.125 mg PO BID insulin asp prt-insulin aspart [Novolog Mix 70-30 U-100 Insuln] 100 unit/mL (70-30) solution 15 - 30 unit SUBCUT AMPM Qty: 30 5RF Rx Instructions: Per home sliding scale gabapentin 100 mg capsule 100 mg PO HS Qty: 30 2RF mupirocin 2 % ointment 1 applic topical BID Qty: 15 0RF Entresto 24-26 mg tablet 1 tab PO BID Qty: 180 3RF pantoprazole [Protonix] 40 mg tablet,delayed release (DR/EC) 40 mg PO BID Qty: 180 1RF calcitriol [Rocaltrol] 0.25 mcg capsule 0.25 mcg PO 3XWK Qty: 12 1RF Rx Instructions: MONDAY/MONDAY/MONDAY/ IN THE AM vitamin E 400 unit capsule 400 unit PO QAM garlic 1,000 mg capsule 1,000 mg PO QPM ranolazine 500 mg Tablet Extended Release 12 Hr 500 mg PO BID senna 8.6 mg capsule 8.6 mg PO DAILY PRN (Reason: constipation) Qty: 10 0RF polyethylene glycol 3350 [Miralax] 17 gram/dose Powder 17 g PO TID Qty: 119 0RF Referrals Referrals: Ebony Alvarenga DO [Primary Care Provider] -
[2023-01-14 12:02] LABS: Basophils # (auto) 0.03 K/uL (0-0.2); Basophils % (auto) 0.4 %; Eosinophils # (auto) 0.12 K/uL (0-0.50); Eosinophils % (auto) 1.6 %; Hematocrit (blood only) 40.8 % (37.0-47.0); Hemoglobin 13.7 g/dl (12.0-16.0); Immature Granulocytes # (auto) 0.03 K/uL (0.01-0.20); Immature Granulocytes % (auto) 0.4 %; Lymphocytes # (auto) 1.89 K/uL (1.2-3.4); Lymphocytes % (auto) 24.5 %; Mean Corpuscular Hemoglobin 33.9 pg (25.0-34.0); Mean Corpuscular Hgb Conc 33.6 g/dL (32.0-36.0); Mean Platelet Volume 10.5 fL (9.4-12.4); Monocytes # (auto) 0.56 K/uL (0.11-0.59); Monocytes % (auto) 7.3 %; Neutrophils # (auto) 5.09 K/uL (1.40-6.50); Neutrophils % (auto) 65.8 %; Platelet Count 227 K/uL (130-400); RDW Coefficient of Variation 12.3 % (11.5-14.5); RDW Standard Deviation 45.9 fL (36.4-46.3); Red Blood Count 4.04 M/uL (4.20-5.40); White Blood Count 7.72 K/ul (4.8-10.8)
[2023-01-14 12:16] LABS: Albumin Globulin Ratio 1.2 (0.9-2); Albumin Level 3.8 gm/dl (3.4-5.0); BUN Creatinine Ratio 23.6 (10-20); Bilirubin,Total 0.6 mg/dl (0.2-1.0); Calcium 9.2 mg/dl (8.6-10.3); Est GFR (African American) 20.7 ml/min; Est GFR (Non-African American) 17.9 ml/min; Globulin 3.3 gm/dl (2.5-4.0); Potassium 4.1 mmol/L (3.5-5.1); Total Protein 7.1 gm/dl (6.0-8.3)
--- NOTE | 2023-01-14 12:16 | XRay Report ---
XR chest 1V portable CLINICAL HISTORY: Dyspnea TECHNIQUE: Single frontal radiograph of the chest was obtained. Comparison: Comparison is made to chest radiograph 01/09/2023 FINDINGS: Pacemaker defibrillator is seen. Cardiomegaly is noted. The aortic arch is calcified. The lungs are c lear. Redemonstration of blunting of the right costophrenic angle which is likely due to extrapleural fat as before. IMPRESSION: No acute chest disease. ACT 112: Negative or not required by law. Electronically signed by: Gato Nagel M.D. 01/14/2023 12:14 PM
[2023-01-14 12:23] LABS: Troponin I High Sensitivity 38.6 pg/ml (0-14)
--- NOTE | 2023-01-14 14:58 | History & Physical Report ---
Date of Service January 14, 2023 Assessment & Plan (1) Dyspnea: Plan: - Observation to med surg - Will obtain Orthostatic BPs - Will consult CM to evaluate - PT/OT - 500ml IVF replacement - DM/Renal diet (possibly may need to increase sodium content slightly in diet) - Monitor labs - AM cortisol - Discussed with patient that the likelihood of a PE while on Eliquis and normal Oxygen saturation on RA is very unlikely and the benefit of a CTA do not out weight the risk of contrast with her renal functions. - Long discussion with patient and her daughter at bedside regarding possible placement or H/H or rehab at discharge may be needed. (2) HFrEF (heart failure with reduced ejection fraction): Plan: chronic and stable (3) DM II (diabetes mellitus, type II), controlled: Plan: Last HgbA1C was 7.3 12/27/22 will need to closely monitor BS and adjust ISS to avoid hypoglycemia. (4) Depression: Plan: chronic continue Sertraline 25mg Trazodone qhs to sleep (5) CKD (chronic kidney disease) stage 4, GFR 15-29 ml/min: Plan: continue to monitor renal functions 500ml fluids given in ER (6) Chronic anticoagulation: Plan: For hx of AFib Continue Eliquis 2.5mg BID History of Present Illness Chief Complaint: Dyspnea, dizziness Primary Care Provider: Ebony Alvarenga DO This is an 82 year old female with a past medical history of atrial fibrillation on Eliquis 2.5mg BID, history of ischemic cardiomyopathy with reduced ejection fraction 40-45%, CKD stage 4, DM and depression who presented the emergency department with a chief complaint of dyspnea that has been worsening for the past week. Patient was recently in the ED earlier this week with the same complaint. She initially went to an urgent care center with the same complaints on 01/09/23 and had a CXR and was told to go to the ER to r/o a PE. She was evaluated in the ED and sent home. She states she continued to have the dyspnea and dizziness and decided to come back to the ED. She has CKD and her renal functions are slightly elevated from previous visit. She denies any orthopnea, diaphoresis. She states her dizziness is worse with fat movements or standing from a seated position. She states occasionally her dizziness is associated with vertigo (room spinning) symptoms but mostly just feels her head is empty and dizzy. She also complains of left upper arm heaviness and associated should blade discomfort. She states she lives alone and had previously been very independent and these symptoms are interfering with her life. She admits to trying to change positions more slowly and has been us ing her walker instead of just her cane. Patient states she had an elevated BS this AM and took 24 units of her insulin this AM and then had a hypoglycemic event while I was examining her in the ED. Her BS was 60 and she was given OJ and peanut butter crackers and BS improved to 89. Troponin slightly elevated but improved from earlier this month. She had a recent echo at her last admission. She was admitted 12/18 to 12/23 for viral gastroenteritis. She was evaluated in the CHF clinic on 01/05/23. Last echo was 12/22/22 Allergies Allergy/AdvReac Type Severity Reaction Status Date / Time adhesive Allergy Intermediate REDNESS Verified 01/14/23 15:05 AND IRRITATION FROM PAIN PATCH, TAPE latex Allergy Intermediate ALLERGIC Verified 01/14/23 15:05 TO LATEX TAPE/RASH/ITCHING morphine Allergy Intermediate swelling Verified 01/14/23 15:05 nausea vomiting olmesartan Allergy Unknown UNKNOWN Verified 01/14/23 15:05 benzonatate AdvReac Intermediate confusion Verified 01/14/23 15:05 [From Giovanni Brennan] dulaglutide [From Trulicity] AdvReac Intermediate AFFECTS Verified 01/14/23 15:05 MUSCLES exenatide [From Byetta] AdvReac Intermediate Diarrhea Verified 01/14/23 15:05 ezetimibe AdvReac Intermediate MUSCLE Verified 01/14/23 15:05 ACHES glipizide AdvReac Intermediate Diarrhea Verified 01/14/23 15:05 glyburide AdvReac Intermediate Diarrhea Verified 01/14/23 15:05 lisinopril AdvReac Intermediate LIGHTHEADED Verified 01/14/23 15:05 AND DIZZY losartan AdvReac Intermediate dizziness Verified 01/14/23 15:05 metformin AdvReac Intermediate Diarrhea Verified 01/14/23 15:05 pioglitazone AdvReac Intermediate DIARRHEA Verified 01/14/23 15:05 NAUSEA sitagliptin [From Januvia] AdvReac Intermediate Diarrhea Verified 01/14/23 15:05 Jidqwnn-RGO-HhT Reductase AdvReac Intermediate myalgias Verified 01/14/23 15:05 Inhibitor and [Hpvdalq-Bni-Gmx Reductase weakness Inhibitor] aspirin AdvReac Mild GI SYMPTOMS Verified 01/14/23 15:05 Home Medications Medication Instructions Recorded Confirmed Type magnesium oxide 400 mg PO QPM #90 caps 04/01/19 01/14/23 Rx vitamin E 268 mg (400 unit) capsule 400 unit PO QAM 03/29/20 01/14/23 History cholecalciferol (vitamin D3) 25 1,000 unit PO QAM 05/17/21 01/14/23 History mcg (1,000 unit) capsule garlic 1,000 mg capsule 1,000 mg PO QPM 09/07/21 01/14/23 History anastrozole 1 mg tablet (Arimidex) 1 mg PO QAM 11/11/21 01/14/23 History sertraline 25 mg tablet 25 mg PO DAILY #30 tabs 05/30/22 01/14/23 Rx trazodone 50 mg tablet 50 mg PO HS PRN insomnia #90 tabs 06/23/22 01/14/23 Rx ascorbate calcium (vitamin C) 500 500 mg PO DAILY 06/27/22 01/14/23 History mg tablet potassium gluconate 595 mg (99 mg) 595 mg PO DAILY 06/27/22 01/14/23 History tablet bumetanide 1 mg tablet 1 mg PO BID #120 tabs 07/14/22 01/14/23 Rx carvedilol 3.125 mg tablet 3.125 mg PO BID 07/26/22 01/14/23 History insulin syringe-needle U-100 0.3 #100 ea 08/15/22 01/14/23 Rx mL 31 gauge x 5/16" (BD SafetyGlide Insulin Syringe) ticagrelor 90 mg tablet (Brilinta) 90 mg PO BID #180 tabs 08/15/22 01/14/23 Rx ondansetron HCl 4 mg tablet 4 mg PO Q8H PRN nausea and 09/27/22 01/14/23 Rx vomiting #30 tabs levothyroxine 75 mcg tablet 75 mcg PO QAM #90 tabs 10/05/22 01/14/23 Rx apixaban 2.5 mg tablet (Eliquis) 2.5 mg PO BID #180 tabs 10/18/22 01/14/23 Rx digoxin 125 mcg (0.125 mg) tablet 125 mcg PO 3XWK #36 tabs 10/31/22 01/14/23 Rx gabapentin 100 mg capsule 100 mg PO HS #30 caps 11/28/22 01/14/23 Rx insulin aspar prt-insulin aspart 15 - 30 unit (0.15 - 0.3 mL) 11/28/22 01/14/23 Rx 100 unit/mL (70-30) subcutaneous subcut AMPM #30 mL soln (Novolog Mix 70-30 U-100 Insuln) mupirocin 2 % topical ointment 1 applic topical BID #15 grams 11/28/22 01/14/23 Rx ranolazine 500 mg tablet,extended 500 mg PO BID 12/18/22 01/14/23 History release,12 hr polyethylene glycol 3350 17 17 g PO TID #119 grams 12/23/22 01/14/23 Rx gram/dose oral powder (Miralax) sennosides 8.6 mg capsule (senna) 8.6 mg PO DAILY PRN constipation 12/23/22 01/14/23 Rx #10 caps calcitriol 0.25 mcg capsule 0.25 mcg PO 3XWK #12 caps 01/03/23 01/14/23 Rx (Rocaltrol) pantoprazole 40 mg tablet,delayed 40 mg PO BID #180 tabs 01/03/23 01/14/23 Rx release (Protonix) sacubitril 24 mg-valsartan 26 mg 1 tab PO BID #180 tabs 01/03/23 01/14/23 Rx tablet (Entresto) Past Med/Surg History Medical History Acute kidney injury superimposed on chronic kidney disease Anemia due to chronic kidney disease Antiplatelet or antithrombotic long-term use Aortic stenosis, severe S/p TAVR 10/2019 Bilateral carotid artery stenosis H/o bilateral CEAs in 2015 Per 07/2021 vascular note- carotid ultrasound from office visit showed patent right CEA with velocities suggesting 50-59% stenosis restenosis Patent left CEA with velocities suggesting 99% restenosis - had re-do of left CEA 09/27/21 Biventricular ICD (implantable cardioverter-defibrillator) in place (04/30/20) Medtronic implanted 04/30/2020. Capped right ventricular pacing lead Last check 09/2021 Breast cancer, right Right breast mastectomy 09/17/21 at [facility] CAD (coronary artery disease) F/U DR CUEVA S/p NATY x 1 to Cx in 2019; NATY to ostial LM 01/10/20 Chronic combined systolic and diastolic CHF (congestive heart failure) EF 40% per 10/16/21 ECHO Chronic kidney disease STAGE IV-F/U DR SALINAS Chronic obstructive pulmonary disease, unspecified Breathing stable Depression Diabetes mellitus, type 2 Glucose fluctuates DVT (deep venous thrombosis) LOWER LEG 2019 GERD (gastroesophageal reflux disease) History of CVA (cerebrovascular accident) Had RUE weakness and numbness after 09/17/21 breast surgery- CT scan of head negative; unable to do MRI due to ICD Per PCP records 10/22/21= "Orestes her post op RUE sx related to possible small stroke/TIA" Hyperlipidemia Hypothyroidism Insomnia Ischemic cardiomyopathy Left bundle branch block Nausea and vomiting after administration of anesthetic agent severe PONV s/p Left carotid surgery 09/27/21 at [facility] Non-ST elevation TX (NSTEMI) NSTEMI (non-ST elevated myocardial infarction) Most recent 12/2019 (mild per patient) PAD (peripheral artery disease) S/p DIESEL ENGINE II PIPE FITTER and stenting of right SFA, and DIESEL ENGINE II PIPE FITTER of left SFA and common femoral artery PAF (paroxysmal atrial fibrillation) Pulmonary hypertension RVSP 40-45mmHg on 10/2020 ECHO Rheumatoid arthritis No medications Followed with rheum in the past- no recent issues Secondary hyperparathyroidism of renal origin SOB (shortness of breath) on exertion Spondylosis Subclavian artery stenosis Surgical History H/O colonoscopy H/O heart artery stent H/O: section History of appendectomy History of cardiac cath TOTAL 6? STENTS- 2018 and 2019 History of cataract surgery right and left History of cholecystectomy History of hysterectomy History of left-sided carotid endarterectomy (09/27/21) redo L CEA, Dr Bateman History of oophorectomy S/P angioplasty (02/03/21) DIESEL ENGINE II PIPE FITTER L SFA S/P AV hiren ablation (06/30/22) S/P carotid endarterectomy B/l 2016 S/P coronary artery stent placement (10/2017) NATY to mid LAD S/P coronary artery stent placement (10/2018) NATY prox mid LAD 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) S/P thoracentesis (03/2020) b/l d/t CHF Status post partial mastectomy of right breast (09/17/21) 09/17/21 - Done under [facility] with LMA #4. Atraumatic LMA insertion. Magnet placed secondary to pacemaker. Right Breast Partial Mastectomy with [place] Chief I Dispatcher Localization, Right Axillary [place] Lymph Node Biopsy(Right) - Hua Acosta, DO Family History Daughter Coronary heart disease Cardiac stent Diabetes Mother , 83yo Diabetes Family history of hypercholesterolemia Myocardial infarction Hypertension Stroke Brother Colorectal cancer 1/2 brother Father , Accident in war Brother Diabetes 1/2 brother;Complications of DM Family/Other Myocardial infarction 1/2 sister Son Coronary heart disease Cardiac stent Hypertension Other Pacemaker Denies family history of Ovarian cancer Prostate cancer Breast cancer Social History Smoking Status: Never smoker Second Hand Exposure: No; Hx Alcohol Use: No Hx Substance Use: No Preferred Language: [place]ese Communication Ability: Effective Visual Impairment: No Limitations Hearing Ability: Hard of Hearing Paper Cone Machine Tender Required: No Beliefs That Will Affect Care: None marital status: / marital status details: passed 2000 Current Living Situation: Alone current occupational status: retired 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 All other ROS negative unless stated + above. Physical Exam Constitutional: WD/WN, vitals as above Respiratory: normal respiratory effort, lungs clear to auscultation Cardiovascular: RRR, no murmur, no edema Extremities: normal capillary refill; no calf tenderness and no edema Gastrointestinal (Abdomen): normal bowel sounds, soft, nontender, no hepatosplenomegaly Skin: no rashes, warm and dry Psychiatric: A+Ox3, euthymic affect Results & Data Results & Data Vital Signs (Past 12 Hours) Vital Signs Temp Pulse Pulse Resp BP BP Pulse Ox 01/14/23 14:04 80 26 H 104/66 95 01/14/23 12:24 82 01/14/23 11:54 98 01/14/23 11:54 36.6 C 83 28 H 141/75 H 98 01/14/23 11:43 36.6 C 83 28 H 141/75 H 98 01/14/23 11:43 O2 Del Method O2 Flow Rate 01/14/23 14:04 Room Air 01/14/23 12:24 01/14/23 11:54 Room Air 01/14/23 11:54 Room Air 01/14/23 11:43 Room Air 01/14/23 11:43 Room Air 98 Laboratory Results Abnormal lab results 01/14/23 01/14/23 01/14/23 Range/Units 11:35 11:35 13:55 RBC 4.04 L (4.20-5.40) M/uL MCV 101.0 H (80.0-100.0) fL BUN 57 H (6-23) mg/dl Creatinine 2.42 H (0.6-1.2) mg/dl BUN/Creatinine Ratio 23.6 H (10-20) Glucose 130 H (70-99(Fasting)) mg/dl POC Glucose 60 L* (70-99) mg/dl Troponin I High Sens 38.6 H (0-14) pg/ml 01/14/23 Range/Units 14:12 RBC (4.20-5.40) M/uL MCV (80.0-100.0) fL BUN (6-23) mg/dl Creatinine (0.6-1.2) mg/dl BUN/Creatinine Ratio (10-20) Glucose (70-99(Fasting)) mg/dl POC Glucose 69 L* (70-99) mg/dl Troponin I High Sens (0-14) pg/ml Diagnostic Findings Chest X-Ray 01/14/23 11:46 XR chest 1V portable CLINICAL HISTORY: Dyspnea TECHNIQUE: Single frontal radiograph of the chest was obtained. Comparison: Comparison is made to chest radiograph 01/09/2023 FINDINGS: Pacemaker defibrillator is seen. Cardiomegaly is noted. The aortic arch is calcified. The lungs are clear. Redemonstration of blunting of the right costophrenic angle which is likely due to extrapleural fat as before. IMPRESSION: No acute chest disease. ACT 112: Negative or not required by law. Electronically signed by: Gato Nagel M.D. 01/14/2023 12:14 PM Code Status & VTE Plan Code Status DNR/DNI Supervising Physician Co-Signing Physician Notes Patient seen and examined, chart reviewed, case discussed with Leatha Proctor PA-C and I agree with the assessment and plan as above except as otherwise noted Labs and images reviewed Ban is a 82-year-old female with past medical history of A-fib, type II DM, heart failure with reduced ejection fraction, dyspnea, orthostasis, chronic fatigue, COPD, and weakness who presents with recurrent difficulty ambulating, shortness of breath, and periods of lightheadedness while standing. She was recently in the ER and urgent care with similar symptoms, due to her shortness of breath she was recommended for evaluation in the ER for PE by urgent care. She has not had any orthopnea or sweating, no chest pain. Her dizziness is not associated with room spinning, she feels more lightheaded "like my head is full of cotton". At bedside she is not having symptoms at rest and is not short of breath, but notes she fatigues easily. She is very concerned that she cannot function at home due to her lightheadedness, and notes significant anxiety that she might not be able to be independent and is not ready for assisted or nursing care. At bedside lungs are clear, and she is without wheezing. On review of labs and physical exam she does not appear volume overloaded, and is not wheezing or appear to be in a COPD exacerbation. Chest x-ray is clear, and she does not show any signs of infection. Patient has had hypoglycemia, but notes she did take extra insulin this morning for slightly high blood sugar but then came to the ER and did not eat. Has improved with OJ/peanut butter. Overall symptoms are suggestive of orthostasis, this must be balanced against her combined systolic/diastolic heart failure and ischemic cardiomyopathy with an LVEF 40%. She is not having chest pain and of low suspicion for ACS on admission. 1 week ago due to severe orthostasis. ?Trial of midodrine risk/benefits in the setting of CHF but very symptomatic orthostasis and functional limitation. Will obtain formal orthostatics, give small amount of fluid repletion, obtain PT OT. CM consulted. Agree with management above. 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: with solid waste truck driver use Depression F32.A CKD (chronic kidney disease) stage 4, GFR 15-29 ml/min N18.4 Chronic anticoagulation Z79.01 (1) Dyspnea Dyspnea type: unspecified Qualified Code(s): R06.00 - Dyspnea, unspecified (3) DM II (diabetes mellitus, type II), controlled Diabetes mellitus complication detail: with nephropathy Diabetes mellitus complication status: with kidney complications Diabetes mellitus retirement insulin use: with solid waste truck driver use Qualified Code(s): E11.21 - Type 2 diabetes mellitus with diabetic nephropathy; Z79.4 - detention (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
[2023-01-14 17:18] LABS: Adenovirus PCR Not Detected (NotDetected); Bordetella parapertussis PCR Not Detected (NotDetected); Bordetella pertussis PCR Not Detected (NotDetected); Chlamydia pneumoniae PCR Not Detected (NotDetected); Coronavirus 229E PCR Not Detected (NotDetected); Coronavirus CoV-2 (COVID19)PCR Not Detected (NotDetected); Coronavirus HKU1 PCR Not Detected (NotDetected); Coronavirus NL63 PCR Not Detected (NotDetected); Coronavirus OC43PCR Not Detected (NotDetected); Human Metapneumovirus PCR Not Detected (NotDetected); Influenza A PCR Not Detected (NotDetected); Influenza B PCR Not Detected (NotDetected); Mycoplasma pneumoniae PCR Not Detected (NotDetected); Parainfluenza Virus 1 PCR Not Detected (NotDetected); Parainfluenza Virus 2 PCR Not Detected (NotDetected); Parainfluenza Virus 3 PCR Not Detected (NotDetected); Parainfluenza Virus 4 PCR Not Detected (NotDetected); Respiratory Syncytial VirusPCR Not Detected (NotDetected); Rhinovirus/Enterovirus PCR Not Detected (NotDetected)
[2023-01-14] MEDS ORDERED: SODIUM CHLORIDE 0.9% 500 ML IV SCH (18:30)
[2023-01-14] MEDS ORDERED: GLUCAGON FOR INJ 1 MG VIAL SQ PRN (20:40)
[2023-01-14] MEDS ORDERED: POLYETHYLENE (MIRALAX) 17 GM PACK PO PRN (20:40)
[2023-01-14] MEDS ORDERED: CARBOHYDRATES FOR HYPOGLYCEMIA PO PRN (20:40)
[2023-01-14] MEDS ORDERED: DEXTROSE 50% 50 ML SYRINGE IV PRN (20:40)
[2023-01-14] MEDS ORDERED: traZODone HCL 50 MG TAB PO PRN (20:40)
[2023-01-14] MEDS ORDERED: INSULIN ASPART PER UNIT CHARGE SC SCH (20:40)
[2023-01-14] MEDS ORDERED: GLUCOSE 10 TAB/TUBE PO PRN (20:40)
[2023-01-14] MEDS ORDERED: GLUCOSE 40% GEL 15 GM TUBE PO PRN (20:40)
[2023-01-14] MEDS ORDERED: ONDANSETRON 4 MG OD TAB PO PRN (20:58)
[2023-01-14] MEDS ORDERED: SENNA 8.6 MG TAB PO PRN (21:00)
[2023-01-14] MEDS: MAGNESIUM OXIDE 400 MG TAB PO SCH (21:42)
[2023-01-14] MEDS: VALSARTAN/SACUBITRIL 26/24MG TAB PO SCH (21:42)
[2023-01-14] MEDS: TICAGRELOR 90 MG TAB PO SCH (21:43)
[2023-01-14] MEDS: APIXABAN 2.5 MG TAB PO SCH (21:43)
[2023-01-14] MEDS: BUMETANIDE 1 MG TAB PO SCH (21:44)
[2023-01-14] MEDS: GABAPENTIN 100 MG CAP PO SCH (21:45)
[2023-01-14] MEDS: RANOLAZINE 500 MG ER TAB PO SCH (21:45)
[2023-01-14] MEDS: carvediloL 3.125 MG TAB PO SCH (21:46)
[2023-01-14] MEDS: PANTOprazole 40 MG TAB PO SCH (21:51)
[2023-01-15 07:34] LABS: Calcium 8.6 mg/dl (8.6-10.3); Creatinine Clr Calc Pharmacy 21.9 ml/min; Est GFR (African American) 25.5 ml/min; Potassium 4.3 mmol/L (3.5-5.1)
[2023-01-15 07:40] LABS: Hematocrit (blood only) 39.7 % (37.0-47.0); Hemoglobin 13.2 g/dl (12.0-16.0); Mean Corpuscular Hemoglobin 33.9 pg (25.0-34.0); Mean Corpuscular Hgb Conc 33.2 g/dL (32.0-36.0); Mean Corpuscular Volume 102.1 fL (80.0-100.0); Mean Platelet Volume 10.7 fL (9.4-12.4); Platelet Count 201 K/uL (130-400); RDW Coefficient of Variation 12.5 % (11.5-14.5); RDW Standard Deviation 46.9 fL (36.4-46.3); Red Blood Count 3.89 M/uL (4.20-5.40); White Blood Count 6.85 K/ul (4.8-10.8)
[2023-01-15] MEDS: LEVOTHYROXINE SODIUM 75 MCG TABLET PO SCH ×2 (07:42→09:39)
--- NOTE | 2023-01-15 08:32 | Electrocardiogram Report ---
Test Reason : Blood Pressure : / mmHG Vent. Rate : 087 BPM Atrial Rate : 100 BPM P-R Int : 000 ms QRS Dur : 154 ms QT Int : 430 ms P-R-T Axes : 000 -65 091 degrees QTc Int : 517 ms Poor data quality, interpretation may be adversely affected Ventricular-paced rhythm Abnormal ECG When compared with ECG of 09-JAN-2023 15:54, Vent. rate has increased BY 5 BPM Confirmed by Miller Rice ([id number]) on 01/15/2023 8:32:00 AM Referred By: REFERRED SELF Confirmed By:Miller Rice
[2023-01-15] MEDS ORDERED: NON-FORMULARY MEDICATION (Potassium Gluconate 595 mg (99 mg) tablet) PO SCH (09:00)
--- NOTE | 2023-01-15 09:20 | Hospitalist Progress Note ---
Date of Service January 15, 2023 Assessment & Plan (1) Orthostasis: Plan: - With symptoms of dyspnea and lightheadedness especially when going from lying to sitting and sitting to standing in the recent past, seen a few times in the ER for similar symptoms. - Orthostatic blood pressures this morning showed decreased from 100s systolic to 60s systolic with lying>sitting->standing, some symptoms with standing that resolved quickly with lying in bed; given history of CHF and asymptomatic when lying in bed will defer fluids in favor of holding blood pressure reducing/diuretic medications. - Patient does have CHF which complicates management of this, despite CHF bene fit I will for now hold patient's Entresto as this can cause lightheadedness/orthostasis, and given low blood pressures we will also hold bumetanide for now in favor of low-salt diet and close monitoring of fluid status. We will have cardiology evaluate patient in the morning to assist with management, patient requested Dr. Benitez. Another option that could be considered is midodrine however this would affect her afterload, we discussed with cardiology. (2) Dyspnea: Plan: - Dyspnea suspected to be secondary to orthostasis and poor perfusion when standing, does not experience symptoms with lying down. - Chest x-ray without evidence of acute chest disease, including no evidence of fluid overload or pneumonia - Patient is on chronic anticoagulation and is not hypoxic or tachycardic, so unlikely to be pulmonary embolism - Random cortisol level normal. - Patient has had several admissions for various pathologies in the last several months, will have physical and Occupational Therapy evaluate patient to aid in dispo planning, patient is relatively adamant about not wanting to go to skilled facility. (3) HFrEF (heart failure with reduced ejection fraction): Plan: - Chronic and stable, no evidence of fluid overload - Holding diuresis and Entresto as above - Question if may need to discontinue Entresto altogether moving forward especially in the setting of orthostatic hypotension, as patient's GFR is 22, safety and efficacy data limited in populations with GFR less than 20 (4) DM II (diabetes mellitus, type II), controlled: Plan: Last HgbA1C was 7.3 on 12/27/22 Currently on SSI, adjust as necessary based on blood sugars. Patient is on 70/30 insulin twice daily at home with a sliding scale and had low BSG 2 PM yesterday, no issues since admission however (5) Depression: Plan: chronic continue Sertraline 25mg Trazodone qhs to sleep (6) CKD (chronic kidney disease) stage 4, GFR 15-29 ml/min: Plan: continue to monitor renal functions 500ml fluids given in ER, defer further fluids in favor of holding Bumex for now until evaluated by cardiology (7) Chronic anticoagulation: Plan: For hx of AFib Continue Eliquis 2.5mg BID Admission and Anticipated Discharge Date Admission Date: January 14, 2023 Subjective Patient without any symptoms overnight while lying down or while sleeping. She notes that her symptoms are with sitting up fast and with standing, associated with sensation of breathlessness. Noted to have significant hypotension with standing on orthostatics this morning. Review of Systems Review of Systems: All systems reviewed & are unremarkable except as noted in Subjective Physical Exam Constitutional: WD/WN, vitals as above Respiratory: normal respiratory effort, lungs clear to auscultation Cardiovascular: Heart rate irregularly irregular, no murmurs, nontachycardic Gastrointestinal (Abdomen): normal bowel sounds, soft, nontender, no hepatosplenomegaly Skin: no rashes, warm and dry Psychiatric: A+Ox3, euthymic affect Results & Data Results & Data Vital Signs (Past 12 Hours) Vital Signs Temp Pulse Resp BP Pulse Ox O2 Del Method 01/15/23 07:56 36.5 C 60 17 121/83 96 Room Air PG Care Time/CCT Total # of Minutes Spent Total Time Spent with Patient: Total time spent is greater than 50% in coordination of care (as documented) at patient's floor/unit and/or counseling patient: Coding Level of Care Code 97355 SUB INP/OBS CARE 3/50MIN Diagnoses Orthostasis I95.1 Dyspnea R06.00 Dyspnea type: unspecified HFrEF (heart failure with reduced ejection fraction) I50.20 DM II (diabetes mellitus, type II), controlled E11.21; Z79.4 Diabetes mellitus complication detail: with nephropathy Diabetes mellitus complication status: with kidney complications 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: with computer terminal operator use Depression F32.A CKD (chronic kidney disease) stage 4, GFR 15-29 ml/min N18.4 Chronic anticoagulation Z79.01 (2) Dyspnea Dyspnea type: unspecified Qualified Code(s): R06.00 - Dyspnea, unspecified (4) DM II (diabetes mellitus, type II), controlled Diabetes mellitus complication detail: with nephropathy Diabetes mellitus complication status: with kidney complications 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: with computer terminal operator use Qualified Code(s): E11.21 - Type 2 diabetes mellitus with diabetic nephropathy; Z79.4 - tank terminal gauger (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
[2023-01-15] MEDS: INSULIN ASPART PER UNIT CHARGE SC SCH ×4 (09:35→21:07)
[2023-01-15] MEDS: SERTRALINE HCL 50 MG TABLET PO SCH (09:36)
[2023-01-15] MEDS: carvediloL 3.125 MG TAB PO SCH ×2 (09:36→21:08)
[2023-01-15] MEDS: VALSARTAN/SACUBITRIL 26/24MG TAB PO SCH (09:37)
[2023-01-15] MEDS: RANOLAZINE 500 MG ER TAB PO SCH ×2 (09:37→21:07)
[2023-01-15] MEDS: CHOLECALCIFEROL 1,000 UNITS 25 MCG TAB PO SCH (09:37)
[2023-01-15] MEDS: CALCITRIOL 0.25 MCG CAPSULE PO SCH (09:38)
[2023-01-15] MEDS: ANASTROZOLE 1 MG TAB PO SCH (09:38)
[2023-01-15] MEDS: APIXABAN 2.5 MG TAB PO SCH ×2 (09:38→21:06)
[2023-01-15] MEDS: TICAGRELOR 90 MG TAB PO SCH ×2 (09:38→21:06)
[2023-01-15] MEDS: BUMETANIDE 1 MG TAB PO SCH (09:39)
[2023-01-15] MEDS: PANTOprazole 40 MG TAB PO SCH ×2 (11:12→21:07)
[2023-01-15] MEDS: MAGNESIUM OXIDE 400 MG TAB PO SCH (21:06)
[2023-01-15] MEDS: GABAPENTIN 100 MG CAP PO SCH (21:06)
[2023-01-16] MEDS ORDERED: ACETAMINOPHEN 325 MG TAB PO PRN (07:02)
--- NOTE | 2023-01-16 07:54 | Hospitalist Progress Note ---
Date of Service January 16, 2023 Assessment & Plan (1) Orthostasis: Plan: - With symptoms of dyspnea and lightheadedness especially when going from lying to sitting and sitting to standing in the recent past, seen a few times in the ER for similar symptoms - Orthostatic blood pressures positive 4/2; continue to hold diuretics, and to discontinue Entresto entirely moving forward despite CHF benefit given her ongoing symptoms - Cardiology Dr. Rice consulted and appreciate recommendations, to resume weight-based dosing of diuretics, perhaps tomorrow if patient is ready, Latrice Mcmanus with heart failure clinic also aware of changes in management (2) Dyspnea: Plan: - Dyspnea suspected to be secondary to orthostasis and poor perfusion when standing, does not experience symptoms with lying down - Chest x-ray without evidence of acute chest disease, including no evidence of fluid overload or pneumonia - Patient is on chronic anticoagulation and is not hypoxic or tachycardic, so unlikely to be pulmonary embolism - Random cortisol level normal - PT and OT consulted and appreciate recommendations, recommend home with home health support for therapy needs (3) HFrEF (heart failure with reduced ejection fraction): Plan: - Chronic and stable, no evidence of fluid overload - Holding diuresis and Entresto as above (4) DM II (diabetes mellitus, type II), controlled: Plan: Last HgbA1C was 7.3 on 12/27/22 Currently on SSI, adjust as necessary based on blood sugars. Patient is on 70/30 insulin twice daily at home with a sliding scale and had low BSG 2 PM on day of admission, no issues since with hypoglycemia (5) Depression: Plan: chronic continue Sertraline 25mg Trazodone qhs to sleep (6) CKD (chronic kidney disease) stage 4, GFR 15-29 ml/min: Plan: Baseline creatinine ~2.0 continue to monitor renal functions, creatinine 2.15 today 4/3 500ml fluids given in ER, defer further fluids in favor of holding Bumex for now (7) Chronic anticoagulation: Plan: For hx of AFib Continue Eliquis 2.5mg BID Admission and Anticipated Discharge Date Admission Date: January 15, 2023 Subjective No acute events overnight, and patient's vitals have been normal. Reports that her symptoms of lightheadedness and breathlessness are improved today, though not back to baseline. No complaints of shortness of breath with lying in bed, no chest pain. Review of Systems Review of Systems: All systems reviewed & are unremarkable except as noted in Subjective Physical Exam Constitutional: WD/WN, vitals as above Respiratory: normal respiratory effort, lungs clear to auscultation Cardiovascular: Heart rate irregularly irregular, systolic murmur, nontachycardic Gastrointestinal (Abdomen): normal bowel sounds, soft, nontender, no hepatosplenomegaly Skin: no rashes, warm and dry Psychiatric: A+Ox3, euthymic affect Results & Data Results & Data Vital Signs (Past 12 Hours) Vital Signs Temp Pulse Pulse Resp BP Pulse Ox O2 Del Method 01/15/23 21:04 36.7 C 82 16 132/74 97 Room Air 01/15/23 20:27 36.9 C 80 16 135/74 95 Room Air PG Care Time/CCT Total # of Minutes Spent Total Time Spent with Patient: Total time spent is greater than 50% in coordination of care (as documented) at patient's floor/unit and/or counseling patient: Coding Level of Care Code 16940 SUB INP/OBS CARE 3/50MIN Diagnoses Orthostasis I95.1 Dyspnea R06.00 Dyspnea type: unspecified HFrEF (heart failure with reduced ejection fraction) I50.20 DM II (diabetes mellitus, type II), controlled E11.21; Z79.4 Diabetes mellitus complication detail: with nephropathy Diabetes mellitus complication status: with kidney complications Diabetes mellitus intermediate insulin use: with intermediate use Depression F32.A CKD (chronic kidney disease) stage 4, GFR 15-29 ml/min N18.4 Chronic anticoagulation Z79.01 (2) Dyspnea Dyspnea type: unspecified Qualified Code(s): R06.00 - Dyspnea, unspecified (4) DM II (diabetes mellitus, type II), controlled Diabetes mellitus complication detail: with nephropathy Diabetes mellitus complication status: with kidney complications 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 insulin use: with ad terminal makeup operator use Qualified Code(s): E11.21 - Type 2 diabetes mellitus with diabetic nephropathy; Z79.4 - terminal press operator (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
[2023-01-16] MEDS: LEVOTHYROXINE SODIUM 75 MCG TABLET PO SCH (08:01)
[2023-01-16] MEDS ORDERED: DIGOXIN 0.125 MG TAB PO SCH (09:00)
[2023-01-16] MEDS: INSULIN ASPART PER UNIT CHARGE SC SCH ×4 (09:08→20:37)
[2023-01-16] MEDS: TICAGRELOR 90 MG TAB PO SCH ×2 (09:10→20:35)
[2023-01-16] MEDS: APIXABAN 2.5 MG TAB PO SCH ×2 (09:11→20:37)
[2023-01-16] MEDS: PANTOprazole 40 MG TAB PO SCH ×2 (09:11→20:35)
[2023-01-16] MEDS: carvediloL 3.125 MG TAB PO SCH ×2 (09:11→20:36)
[2023-01-16] MEDS: RANOLAZINE 500 MG ER TAB PO SCH ×2 (09:11→20:36)
[2023-01-16] MEDS: CHOLECALCIFEROL 1,000 UNITS 25 MCG TAB PO SCH (09:11)
[2023-01-16] MEDS: ANASTROZOLE 1 MG TAB PO SCH (09:12)
[2023-01-16] MEDS: SERTRALINE HCL 50 MG TABLET PO SCH (09:12)
[2023-01-16 09:59] LABS: Calcium 9.4 mg/dl (8.6-10.3); Potassium 4.7 mmol/L (3.5-5.1)
[2023-01-16 10:05] LABS: BUN Creatinine Ratio 23.3 (10-20); Creatinine Clr Calc Pharmacy 20.8 ml/min; Est GFR (African American) 23.9 ml/min; Est GFR (Non-African American) 20.6 ml/min
--- NOTE | 2023-01-16 11:10 | Cardiology Consultation ---
Date of Consultation January 16, 2023 Assessment & Plan (1) Orthostasis: (2) Ischemic cardiomyopathy: (3) Exertional dyspnea: (4) Mitral regurgitation: (5) CAD (coronary artery disease): (6) S/P TAVR (transcatheter aortic valve replacement): (7) Biventricular ICD (implantable cardioverter-defibrillator) in place: (8) CKD (chronic kidney disease) stage 4, GFR 15-29 ml/min: Plan 82-year-old woman with complex cardiac history and borderline renal function who was admitted with dyspnea on exertion but no evidence of volume overload, found to have marked orthostatic hypotension. Agree with at least temporarily holding her diuretic and adjusting her vasoactive regimen. She should remain off Entresto for now, she seems to be tolerating low-dose carvedilol so this could be continued, hold bumetanide again today and likely restart on a sliding scale weight-based regimen (perhaps tomorrow). If she does well overnight, could potentially be discharged home tomorrow with close follow-up by Urmila Mcmanus PA-C in heart failure clinic later this week. History of Present Illness Reason for Consultation: CHF and orthostatic hypoTN, symptomatic Requesting Physician: Diana Lopez DO Attending Physician: Diana Lopez DO History of Present Illness 82-year-old woman with history of CAD (remote stenting, see Dr. Cueva's outpatient cardiology notes for details), ischemic cardiomyopathy (most recent EF 40-45%), moderate to severe mitral regurgitation, chronic HFrEF (home diuretic regimen bumetanide 1 mg twice daily), status post TAVR 2019, paroxysmal atrial flutter (apixaban/carvedilol/digoxin), biventricular pacemaker/ICD 2019, stage IV chronic kidney disease, and PAD, who was admitted 01/14/2023 with progressive dyspnea but no evidence of volume overload, exam most remarkable for significant orthostatic hypotension. She weighs herself daily and has not noted any recent weight variation at all (remains within 1 pound of baseline). However, she was becoming increasingly dyspneic and presented to the emergency department where ECG showed ventricular paced rhythm and chest x-ray showed no evidence of heart failure or other infiltrates. BNP of 207 is below her decompensated range (107311). Creatinine of 2.15 within her usual range (1.92.4). Examination did not suggest volume overload but did demonstrate significant orthostasis (SBP dropped from 100 mmHg to 60 mmHg upon standing). She denied chest pain at any time, orthopnea, PND, or ankle edema. She did note recent orthostatic lightheadedness upon standing, she is usually okay when she stands up slowly. At the time of my evaluation this morning she was comfortable at rest and had just completed walking the hallways with a walker without difficulty. Allergies Allergy/AdvReac Type Severity Reaction Status Date / Time adhesive Allergy Intermediate REDNESS Verified 01/14/23 15:05 AND IRRITATION FROM PAIN PATCH, TAPE latex Allergy Intermediate ALLERGIC Verified 01/14/23 15:05 TO LATEX TAPE/RASH/ITCHING morphine Allergy Intermediate swelling Verified 01/14/23 15:05 nausea vomiting olmesartan Allergy Unknown UNKNOWN Verified 01/14/23 15:05 benzonatate AdvReac Intermediate confusion Verified 01/14/23 15:05 [From Tessalchemo Brennan] dulaglutide [From Trulicity] AdvReac Intermediate AFFECTS Verified 01/14/23 15:05 MUSCLES exenatide [From Byetta] AdvReac Intermediate Diarrhea Verified 01/14/23 15:05 ezetimibe AdvReac Intermediate MUSCLE Verified 01/14/23 15:05 ACHES glipizide AdvReac Intermediate Diarrhea Verified 01/14/23 15:05 glyburide AdvReac Intermediate Diarrhea Verified 01/14/23 15:05 lisinopril AdvReac Intermediate LIGHTHEADED Verified 01/14/23 15:05 AND DIZZY losartan AdvReac Intermediate dizziness Verified 01/14/23 15:05 metformin AdvReac Intermediate Diarrhea Verified 01/14/23 15:05 pioglitazone AdvReac Intermediate DIARRHEA Verified 01/14/23 15:05 NAUSEA sitagliptin [From Januvia] AdvReac Intermediate Diarrhea Verified 01/14/23 15:05 Vwrrdmm-FOR-NhM Reductase AdvReac Intermediate myalgias Verified 01/14/23 15:05 Inhibitor and [Vwriyos-Awv-Ugg Reductase weakness Inhibitor] aspirin AdvReac Mild GI SYMPTOMS Verified 01/14/23 15:05 Home Medications Medication Instructions Recorded Confirmed Type magnesium oxide 400 mg PO QPM #90 caps 04/01/19 01/14/23 Rx vitamin E 268 mg (400 unit) capsule 400 unit PO QAM 03/29/20 01/14/23 History cholecalciferol (vitamin D3) 25 1,000 unit PO QAM 05/17/21 01/14/23 History mcg (1,000 unit) capsule garlic 1,000 mg capsule 1,000 mg PO QPM 09/07/21 01/14/23 History anastrozole 1 mg tablet (Arimidex) 1 mg PO QAM 11/11/21 01/14/23 History sertraline 25 mg tablet 25 mg PO DAILY #30 tabs 05/30/22 01/14/23 Rx trazodone 50 mg tablet 50 mg PO HS PRN insomnia #90 tabs 06/23/22 01/14/23 Rx ascorbate calcium (vitamin C) 500 500 mg PO DAILY 06/27/22 01/14/23 History mg tablet potassium gluconate 595 mg (99 mg) 595 mg PO DAILY 06/27/22 01/14/23 History tablet bumetanide 1 mg tablet 1 mg PO BID #120 tabs 07/14/22 01/14/23 Rx carvedilol 3.125 mg tablet 3.125 mg PO BID 07/26/22 01/14/23 History insulin syringe-needle U-100 0.3 #100 ea 08/15/22 01/14/23 Rx mL 31 gauge x 5/16" (BD SafetyGlide Insulin Syringe) ticagrelor 90 mg tablet (Brilinta) 90 mg PO BID #180 tabs 08/15/22 01/14/23 Rx ondansetron HCl 4 mg tablet 4 mg PO Q8H PRN nausea and 09/27/22 01/14/23 Rx vomiting #30 tabs levothyroxine 75 mcg tablet 75 mcg PO QAM #90 tabs 10/05/22 01/14/23 Rx apixaban 2.5 mg tablet (Eliquis) 2.5 mg PO BID #180 tabs 10/18/22 01/14/23 Rx digoxin 125 mcg (0.125 mg) tablet 125 mcg PO 3XWK #36 tabs 10/31/22 01/14/23 Rx gabapentin 100 mg capsule 100 mg PO HS #30 caps 11/28/22 01/14/23 Rx insulin aspar prt-insulin aspart 15 - 30 unit (0.15 - 0.3 mL) 11/28/22 01/14/23 Rx 100 unit/mL (70-30) subcutaneous subcut AMPM #30 mL soln (Novolog Mix 70-30 U-100 Insuln) mupirocin 2 % topical ointment 1 applic topical BID #15 grams 11/28/22 01/14/23 Rx ranolazine 500 mg tablet,extended 500 mg PO BID 12/18/22 01/14/23 History release,12 hr polyethylene glycol 3350 17 17 g PO TID #119 grams 12/23/22 01/14/23 Rx gram/dose oral powder (Miralax) sennosides 8.6 mg capsule (senna) 8.6 mg PO DAILY PRN constipation 12/23/22 01/14/23 Rx #10 caps calcitriol 0.25 mcg capsule 0.25 mcg PO 3XWK #12 caps 01/03/23 01/14/23 Rx (Rocaltrol) pantoprazole 40 mg tablet,delayed 40 mg PO BID #180 tabs 01/03/23 01/14/23 Rx release (Protonix) sacubitril 24 mg-valsartan 26 mg 1 tab PO BID #180 tabs 01/03/23 01/14/23 Rx tablet (Entresto) Patient History Medical History Acute kidney injury superimposed on chronic kidney disease Anemia due to chronic kidney disease Antiplatelet or antithrombotic long-term use Aortic stenosis, severe S/p TAVR 10/2019 Bilateral carotid artery stenosis H/o bilateral CEAs in 2016 Per 07/2021 vascular note- carotid ultrasound from office visit showed patent right CEA with velocities suggesting 50-59% stenosis restenosis Patent left CEA with velocities suggesting 99% restenosis - had re-do of left CEA 09/27/21 Biventricular ICD (implantable cardioverter-defibrillator) in place (04/30/20) Med[employer] implanted 04/30/2020. Capped right ventricular pacing lead Last check 09/2021 Breast cancer, right Right breast mastectomy 09/17/[address] [facility] CAD (coronary artery disease) F/U DR CUEVA S/p NATY x 1 to Cx in 2019; NATY to ostial LM 01/10/20 Chronic combined systolic and diastolic CHF (congestive heart failure) EF 40% per 10/16/21 ECHO Chronic kidney disease STAGE IV-F/U DR SALINAS Chronic obstructive pulmonary disease, unspecified Breathing stable Depression Diabetes mellitus, type 2 Glucose fluctuates DVT (deep venous thrombosis) LOWER LEG 2019 GERD (gastroesophageal reflux disease) History of CVA (cerebrovascular accident) Had RUE weakness and numbness after 09/17/21 breast surgery- CT scan of head negative; unable to do MRI due to ICD Per PCP records 10/22/21= "[place] her post op RUE sx related to possible small stroke/TIA" Hyperlipidemia Hypothyroidism Insomnia Ischemic cardiomyopathy Left bundle branch block Nausea and vomiting after administration of anesthetic agent severe PONV s/p Left carotid surgery 09/27/[address] [facility] Non-ST elevation NE (NSTEMI) NSTEMI (non-ST elevated myocardial infarction) Most recent 12/2019 (mild per patient) PAD (peripheral artery disease) S/p TITLE DEPARTMENT MANAGER and stenting of right SFA, and TITLE DEPARTMENT MANAGER of left SFA and common femoral artery PAF (paroxysmal atrial fibrillation) Pulmonary hypertension RVSP 40-45mmHg on 10/2020 ECHO Rheumatoid arthritis No medications Followed with rheum in the past- no recent issues Secondary hyperparathyroidism of renal origin SOB (shortness of breath) on exertion Spondylosis Subclavian artery stenosis Surgical History H/O colonoscopy H/O heart artery stent H/O: section History of appendectomy History of cardiac cath TOTAL 6? STENTS- 2018 and 2019 History of cataract surgery right and left History of cholecystectomy History of hysterectomy History of left-sided carotid endarterectomy (09/27/21) redo L CEA, Dr Bateman History of oophorectomy S/P angioplasty (02/03/21) TITLE DEPARTMENT MANAGER L SFA S/P AV hiren ablation (06/30/22) S/P carotid endarterectomy B/l 2016 S/P coronary artery stent placement (10/2017) NATY to mid LAD S/P coronary artery stent placement (10/2018) NATY prox mid LAD 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) S/P thoracentesis (03/2020) b/l d/t CHF Status post partial mastectomy of right breast (09/17/21) 09/17/21 - Done under [facility] with LMA #4. Atraumatic LMA insertion. Magnet placed secondary to pacemaker. Right Breast Partial Mastectomy with [place] Office Mover Localization, Right Axillary [place] Lymph Node Biopsy(Right) - Hua Acosta DO Family History Daughter Coronary heart disease Cardiac stent Diabetes Mother , 83yo Diabetes Family history of hypercholesterolemia Myocardial infarction Hypertension Stroke Brother Colorectal cancer 1/2 brother Father , Accident in war Brother Diabetes 1/2 brother;Complications of DM Family/Other Myocardial infarction 1/2 sister Son Coronary heart disease Cardiac stent Hypertension Other Pacemaker Denies family history of Ovarian cancer Prostate cancer Breast cancer Social History Smoking Status: Never smoker Second Hand Exposure: No; Hx Alcohol Use: No Hx Substance Use: No Preferred Language: Gambian Communication Ability: Effective Visual Impairment: No Limitations Hearing Ability: Hard of Hearing Ship Purser Required: No Beliefs That Will Affect Care: None marital status: / marital status details: passed 2000 Current Living Situation: Alone current occupational status: retired 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 BP normotensive. Pulse 75 bpm and regular. Skin: Old ecchymoses right leg, stasis changes left leg, no generalized lesions. HEENT: unremarkable. Neck: Jugular venous pulse at or below the clavicle at 90 degrees, bilateral transmitted carotid murmur. Lungs: Mildly decreased breath sounds but clear bilaterally. No accessory muscle use. Cardiac: regular rhythm, intact aortic closure sound, 3/6 crescendo decrescendo systolic ejection murmur right upper sternal border rating to the carotids, 3/6 apical holosystolic murmur rating to the axilla, no diastolic murmur. Abdomen: benign. Extremities: no edema, radial pulses intact, lower extremity pulses not readily palpable but her feet are warm Neurologic: normal affect and conversation, nonfocal. Results & Data Vital Signs (Past 12 Hours) Vital Signs Temp Pulse Pulse Resp BP Pulse Ox O2 Del Method 01/16/23 09:11 75 01/16/23 08:06 97.7 F 79 17 138/74 93 Room Air Laboratory Results High-sensitivity troponin 38.6 (her usual range appears to be 6080). Normal electrolytes, BUN 50, creatinine 2.15. Diagnostic Findings Echocardiogram from 12/20/2022 shows EF 40 to 45% with mild global hypokinesis, bioprosthetic aortic valve with mild stenosis, moderate mitral regurgitation, mild pulmonary hypertension. Compared with 2021 study, mild improvement in LV systolic function, mitral regurgitation slightly less severe, and RVSP less elevated. PG Care Time/CCT Total # of Minutes Spent Total Time Spent with Patient: Total time spent is greater than 50% in coordination of care (as documented) at patient's floor/unit and/or counseling patient: Coding Level of Care Code 62310 INT INP/OBS CARE 75MIN Diagnoses Orthostasis I95.1 Ischemic cardiomyopathy I25.5 Exertional dyspnea R06.09 Mitral regurgitation I34.0 CAD (coronary artery disease) I25.10 S/P TAVR (transcatheter aortic valve replacement) Z95.2 Biventricular ICD (implantable cardioverter-defibrillator) in place Z95.810 CKD (chronic kidney disease) stage 4, GFR 15-29 ml/min N18.4
[2023-01-16] MEDS: GABAPENTIN 100 MG CAP PO SCH (20:37)
[2023-01-16] MEDS: MAGNESIUM OXIDE 400 MG TAB PO SCH (20:37)
[2023-01-17] MEDS: LEVOTHYROXINE SODIUM 75 MCG TABLET PO SCH (08:01)
[2023-01-17] MEDS ORDERED: LIDOCAINE 5% 1 PATCH TD SCH (09:00)
[2023-01-17] MEDS: INSULIN ASPART PER UNIT CHARGE SC SCH ×2 (09:08→13:17)
[2023-01-17] MEDS: PANTOprazole 40 MG TAB PO SCH (09:09)
[2023-01-17] MEDS: CHOLECALCIFEROL 1,000 UNITS 25 MCG TAB PO SCH (09:09)
[2023-01-17] MEDS: RANOLAZINE 500 MG ER TAB PO SCH (09:09)
[2023-01-17] MEDS: ANASTROZOLE 1 MG TAB PO SCH (09:09)
[2023-01-17] MEDS: SERTRALINE HCL 50 MG TABLET PO SCH (09:09)
[2023-01-17] MEDS: APIXABAN 2.5 MG TAB PO SCH (09:09)
[2023-01-17] MEDS: TICAGRELOR 90 MG TAB PO SCH (09:09)
[2023-01-17] MEDS: carvediloL 3.125 MG TAB PO SCH (09:09)
[2023-01-17] MEDS: CALCITRIOL 0.25 MCG CAPSULE PO SCH (09:10)
--- NOTE | 2023-01-17 10:09 | Discharge Summary ---
Discharge Summary Date of Service January 17, 2023 Admission HPI Per Admitting Provider This is an 82 year old female with a past medical history of atrial fibrillation on Eliquis 2.5mg BID, history of ischemic cardiomyopathy with reduced ejection fraction 40-45%, CKD stage 4, DM and depression who presented the emergency department with a chief complaint of dyspnea that has been worsening for the past week. Patient was recently in the ED earlier this week with the same complaint. She initially went to an urgent care center with the same complaints on 01/09/23 and had a CXR and was told to go to the ER to r/o a PE. She was evaluated in the ED and sent home. She states she continued to have the dyspnea and dizziness and decided to come back to the ED. She has CKD and her renal functions are slightly elevated from previous visit. She denies any orthopnea, diaphoresis. She states her dizziness is worse with fat movements or standing from a seated position. She states occasionally her dizziness is associated with vertigo (room spinning) symptoms but mostly just feels her head is empty and dizzy. She also complains of left upper arm heaviness and associated should blade discomfort. She states she lives alone and had previously been very independent and these symptoms are interfering with her life. She admits to trying to change positions more slowly and has been using her walker instead of just her cane. Patient states she had an elevated BS this AM and took 24 units of her insulin this AM and then had a hypoglycemic event while I was examining her in the ED. Her BS was 60 and she was given OJ and peanut butter crackers and BS improved to 89. Troponin slightly elevated but improved from earlier this month. She had a recent echo at her last admission. She was admitted 12/18 to 12/23 for viral gastroenteritis. She was evaluated in the CHF clinic on 01/05/23. Last echo was 12/22/22 Admission Exam Per Admitting Provider Constitutional: WD/WN, vitals as above Respiratory: normal respiratory effort, lungs clear to auscultation Cardiovascular: RRR, no murmur, no edema Extremities: normal capillary refill; no calf tenderness and no edema Gastrointestinal (Abdomen): normal bowel sounds, soft, nontender, no hepato splenomegaly Skin: no rashes, warm and dry Psychiatric: A+Ox3, euthymic affect Principal Dx & Hospital Course #1 = Principal Diagnosis (1) Orthostasis: - With symptoms of dyspnea and lightheadedness especially when going from lying to sitting and sitting to standing in the recent past, seen a few times in the ER for similar symptoms - Orthostatic blood pressures positive 01/15; Entresto discontinued moving forward despite CHF benefit given her orthostatic symptoms - Cardiology Dr. Rice consulted and appreciate recommendations, to resume weight-based dosing of diuretics on discharge with follow-up with Latrice Mcmanus with heart failure clinic on Saturday 01/20 (2) Dyspnea: - Dyspnea suspected to be secondary to orthostasis and poor perfusion when standing, symptoms have resolved on day of discharge - Chest x-ray without evidence of acute chest disease, including no evidence of fluid overload or pneumonia - Patient is on chronic anticoagulation and is not hypoxic or tachycardic, so unlikely to be pulmonary embolism - Random cortisol level normal - PT and OT consulted and appreciate recommendations, recommend home with home health support for therapy needs (3) HFrEF (heart failure with reduced ejection fraction): - Chronic and stable, no evidence of fluid overload - Discontinued Entresto as above, weight-based Bumex dosing with follow-up with CHF clinic (4) DM II (diabetes mellitus, type II), controlled: Last HgbA1C was 7.3 on 12/27/22 Resume home 70/30 insulin on discharge (5) Depression: Continue Sertraline and trazodone (6) CKD (chronic kidney disease) stage 4, GFR 15-29 ml/min: Baseline creatinine ~2.0 Creatinine 2.15 on 01/16, no intervention made while hospitalized (7) Chronic anticoagulation: For hx of AFib Continue Eliquis 2.5mg BID Plan Disposition: Home with self-care, follow-up with CHF clinic Discharge Exam Constitutional WD/WN, vitals as above Respiratory normal respiratory effort, lungs clear to auscultation Cardiovascular RRR, no murmur, no edema Psychiatric A+Ox3, euthymic affect Updated Medication List Medication Instructions Recorded Confirmed Type magnesium oxide 400 mg PO QPM #90 caps 04/01/19 01/14/23 Rx vitamin E 268 mg (400 unit) capsule 400 unit PO QAM 03/29/20 01/14/23 History cholecalciferol (vitamin D3) 25 1,000 unit PO QAM 05/17/21 01/14/23 History mcg (1,000 unit) capsule garlic 1,000 mg capsule 1,000 mg PO QPM 09/07/21 01/14/23 History anastrozole 1 mg tablet (Arimidex) 1 mg PO QAM 11/11/21 01/14/23 History sertraline 25 mg tablet 25 mg PO DAILY #30 tabs 05/30/22 01/14/23 Rx trazodone 50 mg tablet 50 mg PO HS PRN insomnia #90 tabs 06/23/22 01/14/23 Rx ascorbate calcium (vitamin C) 500 500 mg PO DAILY 06/27/22 01/14/23 History mg tablet carvedilol 3.125 mg tablet 3.125 mg PO BID 07/26/22 01/14/23 History insulin syringe-needle U-100 0.3 #100 ea 08/15/22 01/14/23 Rx mL 31 gauge x 5/16" (BD SafetyGlide Insulin Syringe) ticagrelor 90 mg tablet (Brilinta) 90 mg PO BID #180 tabs 08/15/22 01/14/23 Rx ondansetron HCl 4 mg tablet 4 mg PO Q8H PRN nausea and 09/27/22 01/14/23 Rx vomiting #30 tabs levothyroxine 75 mcg tablet 75 mcg PO QAM #90 tabs 10/05/22 01/14/23 Rx apixaban 2.5 mg tablet (Eliquis) 2.5 mg PO BID #180 tabs 10/18/22 01/14/23 Rx digoxin 125 mcg (0.125 mg) tablet 125 mcg PO 3XWK #36 tabs 10/31/22 01/14/23 Rx gabapentin 100 mg capsule 100 mg PO HS #30 caps 11/28/22 01/14/23 Rx insulin aspar prt-insulin aspart 15 - 30 unit (0.15 - 0.3 mL) 11/28/22 01/14/23 Rx 100 unit/mL (70-30) subcutaneous subcut AMPM #30 mL soln (Novolog Mix 70-30 U-100 Insuln) mupirocin 2 % topical ointment 1 applic topical BID #15 grams 11/28/22 01/14/23 Rx ranolazine 500 mg tablet,extended 500 mg PO BID 12/18/22 01/14/23 History release,12 hr polyethylene glycol 3350 17 17 g PO TID #119 grams 12/23/22 01/14/23 Rx gram/dose oral powder (Miralax) sennosides 8.6 mg capsule (senna) 8.6 mg PO DAILY PRN constipation 12/23/22 01/14/23 Rx #10 caps calcitriol 0.25 mcg capsule 0.25 mcg PO 3XWK #12 caps 01/03/23 01/14/23 Rx (Rocaltrol) pantoprazole 40 mg tablet,delayed 40 mg PO BID #180 tabs 01/03/23 01/14/23 Rx release (Protonix) bumetanide 1 mg tablet 1 mg PO DAILY PRN Shortness of 01/16/23 01/14/23 Rx breath/weight gain #120 tabs potassium gluconate 595 mg (99 mg) 595 mg PO DAILY PRN With Lasix #30 01/16/23 01/14/23 Rx tablet tabs Hospital Stay Data Consultations 01/14/23 12:39 ED Decision to Admit Stat 01/16/23 07:00 Consult Cardiology Routine Pending Results Patient Have Any Pending Studies at Discharge: No Discharge Instructions Given to Patient (Per Discharging Provider) You were admitted to the hospital for evaluation of lightheadedness and dizziness, as well as trouble breathing over the last several days to weeks. You were found to have very low blood pressures with standing and walking on arrival to the hospital, and some of your chronic medications were held. Your blood pressures improved, and with this your symptoms improved. You were not found to be in a heart failure exacerbation where you were "filling up with fluid". Your Entresto medication was stopped, you will not continue this on discharge. Rather than take your Bumex twice a day every day, you will be transitioned to a weight-based dosing plan with the heart failure clinic. If you have a gain of 2-3 pounds from 1 day to the next, take a dose of your Bumex. If you gain further weight or you are having concurrent shortness of breath, call the heart failure clinic for neck steps. You were felt safe to be discharge home, if you have further concerns call your doctors outside of the hospital. If you are urgently concerned for your health or safety, please come to the hospital for evaluation. Total Time Total Time Spent Total Time Spent (In Minutes): 20 minutes Coding Level of Care Code 57640 IN/OBS DISCH 30 MIN/LESS Diagnoses Orthostasis I95.1 Dyspnea R06.00 Dyspnea type: unspecified HFrEF (heart failure with reduced ejection fraction) I50.20 DM II (diabetes mellitus, type II), controlled E11.21; Z79.4 Diabetes mellitus complication detail: with nephropathy Diabetes mellitus complication status: with kidney complications Diabetes mellitus assisted insulin use: with assisted use Depression F32.A CKD (chronic kidney disease) stage 4, GFR 15-29 ml/min N18.4 Chronic anticoagulation Z79.01
--- NOTE | 2023-01-17 14:18 | Cardiology Progress Note ---
Date of Service January 17, 2023 Assessment & Plan (1) Orthostasis: (2) Ischemic cardiomyopathy: (3) Exertional dyspnea: (4) Mitral regurgitation: (5) CAD (coronary artery disease): (6) S/P TAVR (transcatheter aortic valve replacement): (7) Biventricular ICD (implantable cardioverter-defibrillator) in place: (8) CKD (chronic kidney disease) stage 4, GFR 15-29 ml/min: Plan She is doing well, okay for discharge on reduced vasoactive regimen. Remain off Entresto. Would use sliding scale diuretic, bumetanide 1 mg daily only if she gains 2 pounds or more in a day or 5 pounds in a week. Discussed this with the patient in detail. Close follow-up with Urmila Mcmanus PA-C in heart failure clinic on Monday. Admission and Anticipated Discharge Date Admission Date: January 15, 2023 Subjective Uneventful night. She was able to ambulate the hallways and noted only mild dyspnea on exertion, no orthostatic symptoms or chest discomfort. No lightheadedness, presyncope, or syncope. Physical Exam Physical Exam: No distress. BP normotensive. Pulse 79 bpm and regular. Skin: Old ecchymoses right leg, stasis changes left leg, no generalized lesions. HEENT: unremarkable. Neck: Jugular venous pulse at or below the clavicle at 90 degrees, bilateral transmitted carotid murmur. Lungs: Mildly decreased breath sounds but clear bilaterally. No accessory muscle use. Cardiac: regular rhythm, intact aortic closure sound, 3/6 crescendo decrescendo systolic ejection murmur right upper sternal border rating to the carotids, 3/6 apical holosystolic murmur rating to the axilla, no diastolic murmur. Abdomen: benign. Extremities: no edema, radial pulses intact, lower extremity pulses not readily palpable but her feet are warm Neurologic: normal affect and conversation, nonfocal. Results & Data Vital Signs (Past 12 Hours) Vital Signs Temp Pulse Resp BP Pulse Ox O2 Del Method 01/17/23 08:07 97.7 F 79 18 116/72 94 Room Air Laboratory Results Normal electrolytes, BUN 50, creatinine 2.15 (2.04 yesterday, 2.42 the day before). PG Care Time/CCT Total # of Minutes Spent Total Time Spent with Patient: Total time spent is greater than 50% in coordination of care (as documented) at patient's floor/unit and/or counseling patient: Coding Level of Care Code 03903 SUB INP/OBS CARE 2/35MIN Diagnoses Orthostasis I95.1 Ischemic cardiomyopathy I25.5 Exertional dyspnea R06.09 Mitral regurgitation I34.0 CAD (coronary artery disease) I25.10 S/P TAVR (transcatheter aortic valve replacement) Z95.2 Biventricular ICD (implantable cardioverter-defibrillator) in place Z95.810 CKD (chronic kidney disease) stage 4, GFR 15-29 ml/min N18.4
== END 2023-01-17 14:46 | disposition home health service (06) ==
LOC: ED 11:24 → 3N 11:24 → SUATTDRO 15:39 → 3N 20:10 → SUATTDRO 01-15 17:13

== ENCOUNTER 2023-08-25 13:27 | Observation (INO) ==
[2023-08-25 14:23] LABS: Basophils # (auto) 0.04 K/uL (0.00-0.20); Basophils % (auto) 0.4 %; Eosinophils # (auto) 0.32 K/uL (0.00-0.50); Eosinophils % (auto) 3.1 %; Hematocrit (blood only) 39.1 % (37.0-47.0); Hemoglobin 12.6 g/dl (12.0-16.0); Immature Granulocytes # (auto) 0.02 K/uL (0.01-0.20); Immature Granulocytes % (auto) 0.2 %; Lymphocytes # (auto) 1.42 K/uL (1.20-3.40); Mean Corpuscular Hemoglobin 31.6 pg (25.0-34.0); Mean Corpuscular Hgb Conc 32.2 g/dL (32.0-36.0); Mean Platelet Volume 10.4 fL (9.4-12.4); Monocytes # (auto) 0.81 K/uL (0.11-0.59); Neutrophils # (auto) 7.56 K/uL (1.40-6.50); Neutrophils % (auto) 74.3 %; Platelet Count 266 K/uL (130-400); RDW Coefficient of Variation 13.5 % (11.5-14.5); Red Blood Count 3.99 M/uL (4.20-5.40); White Blood Count 10.17 K/ul (4.8-10.8)
[2023-08-25 14:33] LABS: Albumin Globulin Ratio 1.1 (0.9-2); Albumin Level 3.9 gm/dl (3.4-5.0); Bilirubin,Total 0.5 mg/dl (0.2-1.0); Calcium 9.7 mg/dl (8.6-10.3); Creatinine Clr Calc Pharmacy 23.3 ml/min; Est GFR (African American) 24.7 ml/min; Est GFR (Non-African American) 21.4 ml/min; Globulin 3.7 gm/dl (2.5-4.0); Potassium 4.1 mmol/L (3.5-5.1); Total Protein 7.6 gm/dl (6.0-8.3)
[2023-08-25 16:55] LABS: Appearance Urine Turbid (Clear); Bacteria Urine Automated Negative (Negative); Bilirubin Urine Negative (Negative); Blood Urine 3+ (Negative); Color Urine Orange; Glucose Urine UA Negative (Negative); Ketones Urine Negative (Negative); Leukocyte Esterase Urine 2+ (Negative); Nitrite Urine Negative (Negative); Protein Urine 2+ (Negative); Specific Gravity Urine 1.013 (1.000-1.030); Urobilinogen Urine Negative (Negative); WBC Urine Automated >30 /hpf (0-5); pH Urine 6.5 (4.5-7.5)
--- NOTE | 2023-08-25 17:10 | Emergency Department Note ---
Impression & Plan UTI (urinary tract infection), Hematuria ED Provider Note HISTORY OF PRESENT ILLNESS: Patient is an 82-year-old female presenting with hematuria and urinary frequency. Patient reports that yesterday she felt like she had to pee frequently throughout the day but every time that she went she only had a few drops produced. States that she often felt like she had to go immediately, but was unable to fully empty her bladder. She had some lower abdominal pain since yesterday. Denies any diarrhea. Reports that she had this urinary urgency and frequency yesterday, but today when she went to the bathroom midday she noticed significant amounts of blood in the urine with clots. She initially presented to urgent care and was referred to the ER for further evaluation. Patient denies any nausea or vomiting. Denies any lightheadedness or dizziness. ROS: as above PHYSICAL EXAM: Constitutional: Patient appears in no acute distress. HENT: Head: Normocephalic and atraumatic. Eyes: EOMI, PERRL Mouth/Throat: Mucous membranes moist. Neck: Trachea midline. Neck supple. Cardiovascular: RRR, No murmurs, rubs or gallops. Intact distal pulses. Pulmonary/Chest: No respiratory distress. Breath sounds clear and equal bilaterally. No wheezes or rales. Abdominal: Abdomen soft, no rebound or guarding. Lower abdominal tenderness to palpation. Musculoskeletal: No edema, tenderness or deformity noted. Skin: Warm and dry. No rash, erythema, pallor or cyanosis Psychiatric: Appropriate mood and affect for situation. Neurological: Alert and keenly responsive. CN II-XII grossly intact, moving all extremities equally and fully. MDM: - Vitals signs showed hypertension - History obtained via patient. Patient presents with hematuria and urinary frequency. Patient reports that she had urinary frequency and urgency all day yesterday. She states that today she went to use the bathroom midday and the toilet bowl was full of bright red bloody urine with blood clots. She was seen at urgent care and referred to the emergency department. Denies any chest pain or shortness of breath. Reports generalized lower abdominal pain. - Chronic conditions affecting care: HLD; DM-2; DVT; ischemic cardiomyopathy; CKD; aortic stenosis; CAD - Differential diagnoses include, but are not limited to: bladder mass; UTI; ureteral calculus - Order placed for continuous cardiac monitoring. At this time, monitor showed rate of 75 bpm with normal sinus rhythm, per my interpretation. - External medical records reviewed. - Laboratory workup interpreted by myself showed normal WBC; stable electrolytes; CKD; normal lipase - UA showed no bacteria, but significant WBC and RBCs and leukocyte esterase - CT abdomen/pelvis wo contrast negative for pathology - Given 2g IV rocephin for presumed UTI. Given 1L NS - Discussion was had with social work about patient's case and need for admission for observation - Hospitalist consulted for admission - [facility] ASSESSMENT AND PLAN: Diagnosis: UTI; hematuria Plan: admit Past Med/Surg History Medical History (Updated 07/26/23 @ 12:03 by Ebony Alvarenga DO) Osteoarthritis Orthostasis Hyperlipidemia Acute kidney injury superimposed on chronic kidney disease Non-ST elevation NE (NSTEMI) Depression Nausea and vomiting after administration of anesthetic agent severe PONV s/p Left carotid surgery 09/27/21 at [facility] PAF (paroxysmal atrial fibrillation) History of CVA (cerebrovascular accident) Had RUE weakness and numbness after 09/17/21 breast surgery- CT scan of head negative; unable to do MRI due to ICD Per PCP records 10/22/21= "[place] her post op RUE sx related to possible small stroke/TIA" Breast cancer, right Right breast mastectomy 09/17/21 at [facility] Subclavian artery stenosis Rheumatoid arthritis No medications Followed with rheum in the past- no recent issues Chronic kidney disease STAGE IV-F/U DR SALINAS Diabetes mellitus, type 2 Glucose fluctuates SOB (shortness of breath) on exertion DVT (deep venous thrombosis) LOWER LEG 2019 Ischemic cardiomyopathy Insomnia Biventricular ICD (implantable cardioverter-defibrillator) in place (04/30/20) [employer] implanted 04/30/2020. Capped right ventricular pacing lead Last check 09/2021 Antiplatelet or antithrombotic long-term use Secondary hyperparathyroidism of renal origin Anemia due to chronic kidney disease Chronic obstructive pulmonary disease, unspecified Breathing stable CAD (coronary artery disease) F/U DR CUEVA S/p NATY x 1 to Cx in 2019; NATY to ostial LM 01/10/20 Aortic stenosis, severe S/p TAVR 10/2019 PAD (peripheral artery disease) S/p OUTCOMES ANALYST and stenting of right SFA, and OUTCOMES ANALYST of left SFA and common femoral artery Spondylosis Pulmonary hypertension RVSP 40-45mmHg on 10/2020 ECHO NSTEMI (non-ST elevated myocardial infarction) Most recent 12/2019 (mild per patient) Chronic combined systolic and diastolic CHF (congestive heart failure) EF 40% per 10/16/21 ECHO GERD (gastroesophageal reflux disease) Hypothyroidism Left bundle branch block Bilateral carotid artery stenosis H/o bilateral CEAs in 2016 Per 07/2021 vascular note- carotid ultrasound from office visit showed patent right CEA with velocities suggesting 50-59% stenosis restenosis Patent left CEA with velocities suggesting 99% restenosis - had re-do of left CEA 09/27/21 Surgical History S/P AV hiren ablation (06/30/22) H/O heart artery stent H/O colonoscopy History of left-sided carotid endarterectomy (09/27/21) redo L CEA, Dr Bateman Status post partial mastectomy of right breast (09/17/21) 09/17/21 - Done under [place] with LMA #4. Atraumatic LMA insertion. Magnet placed secondary to pacemaker. Right Breast Partial Mastectomy with [place] Coding Clerk Localization, Right Axillary [place] Lymph Node Biopsy(Right) - Hua Acosta DO History of cardiac cath TOTAL 6? STENTS- 2018 and 2019 S/P coronary artery stent placement (10/2018) NATY prox mid LAD S/P coronary artery stent placement (10/2017) NATY to mid LAD S/P carotid endarterectomy B/l 2016 S/P thoracentesis (03/2020) b/l d/t CHF S/P angioplasty (02/03/21) OUTCOMES ANALYST L SFA 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) History of oophorectomy History of hysterectomy History of cholecystectomy H/O: section History of cataract surgery right and left History of appendectomy Family History Daughter Coronary heart disease Diabetes Mother Diabetes Family history of hypercholesterolemia Myocardial infarction Hypertension Stroke Brother Colorectal cancer Father Accident Brother Diabetes Family/Other Myocardial infarction Son Coronary heart disease Hypertension Other Pacemaker Denies family history of Ovarian cancer Prostate cancer Breast cancer Social History Smoking Status: Never smoker Second Hand Exposure: No; Do You Dip or Chew Tobacco: No; Hx Alcohol Use: No Hx Substance Use: No Preferred Language: Estonian Communication Ability: Effective Visual Impairment: No Limitations Hearing Ability: Hard of Hearing Electrician Rectifier Maintenance Required: No Beliefs That Will Affect Care: None marital status: / marital status details: passed 2000 Current Living Situation: Alone current occupational status: retired 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 How many Children do You have: 2 Feels Safe at Home: Yes Diet: regular caffeine: Yes (1 cup/day) during the past year weight has: remained stable Dental Care, Regularly: No Physical Activity Frequency: Daily Seatbelt Use: always Assistive Devices: Cane and Walker Allergies Allergies Allergy/AdvReac Type Severity Reaction Status Date / Time adhesive Allergy Intermediate REDNESS Verified 08/21/23 09:57 AND IRRITATION FROM PAIN PATCH, TAPE latex Allergy Intermediate ALLERGIC Verified 08/21/23 09:57 TO LATEX TAPE/RASH/ITCHING morphine Allergy Intermediate swelling Verified 08/21/23 09:57 nausea vomiting olmesartan Allergy Unknown UNKNOWN Verified 08/21/23 09:57 benzonatate AdvReac Intermediate confusion Verified 08/21/23 09:57 [From Tessalon Perles] dulaglutide [From Trulicity] AdvReac Intermediate AFFECTS Verified 08/21/23 09:57 MUSCLES exenatide [From Byetta] AdvReac Intermediate Diarrhea Verified 08/21/23 09:57 ezetimibe AdvReac Intermediate MUSCLE Verified 08/21/23 09:57 ACHES glipizide AdvReac Intermediate Diarrhea Verified 08/21/23 09:57 glyburide AdvReac Intermediate Diarrhea Verified 08/21/23 09:57 lisinopril AdvReac Intermediate LIGHTHEADED Verified 08/21/23 09:57 AND DIZZY losartan AdvReac Intermediate dizziness Verified 08/21/23 09:57 metformin AdvReac Intermediate Diarrhea Verified 08/21/23 09:57 pioglitazone AdvReac Intermediate DIARRHEA Verified 08/21/23 09:57 NAUSEA sitagliptin [From Januvia] AdvReac Intermediate Diarrhea Verified 08/21/23 09:57 [id number]-[id number] Reductase AdvReac Intermediate myalgias Verified 08/21/23 09:57 Inhibitor and [Ncslpoq-Ahr-Neu Reductase weakness Inhibitor] aspirin AdvReac Mild GI SYMPTOMS Verified 08/21/23 09:57 Home Meds Home Medications Medication Instructions Recorded Confirmed vitamin E 268 mg (400 unit) capsule 400 unit PO QAM 03/29/20 08/25/23 cholecalciferol (vitamin D3) 25 1,000 unit PO QAM 05/17/21 08/25/23 mcg (1,000 unit) capsule ranolazine 500 mg tablet,extended 500 mg PO BID 12/18/22 08/25/23 release,12 hr garlic 1,000 mg capsule 1,000 mg PO DAILY 05/29/23 08/25/23 potassium gluconate 595 mg (99 mg) 595 mg PO DAILY PRN With Bumex 08/25/23 08/25/23 tablet Previous Rx's Medication Instructions Recorded magnesium oxide 400 mg PO QPM #90 caps 04/01/19 trazodone 50 mg tablet 50 mg PO HS PRN insomnia #90 tabs 06/23/22 insulin syringe-needle U-100 0.3 #100 ea 08/15/22 mL 31 gauge x 5/16" (BD SafetyGlide Insulin Syringe) apixaban 2.5 mg tablet (Eliquis) 2.5 mg PO BID #180 tabs 10/18/22 insulin aspar prt-insulin aspart 15 - 30 unit (0.15 - 0.3 mL) 11/28/22 100 unit/mL (70-30) subcutaneous subcut AMPM #30 mL soln (Novolog Mix 70-30 U-100 Insuln) mupirocin 2 % topical ointment 1 applic topical BID #15 grams 11/28/22 polyethylene glycol 3350 17 17 g PO TID #119 grams 12/23/22 gram/dose oral powder (Miralax) sennosides 8.6 mg capsule (senna) 8.6 mg PO DAILY PRN constipation 12/23/22 #10 caps levothyroxine 75 mcg tablet 75 mcg PO QAM #90 tabs 04/20/23 carvedilol 3.125 mg tablet 3.125 mg PO BID #180 tabs 04/27/23 calcitriol 0.25 mcg capsule 0.25 mcg PO 3XWK #12 caps 06/26/23 (Rocaltrol) pantoprazole 40 mg tablet,delayed 40 mg PO BID #180 tabs 06/26/23 release (Protonix) bumetanide 1 mg tablet 1 mg PO BID Shortness of 07/04/23 breath/weight gain #180 tabs digoxin 125 mcg (0.125 mg) tablet 125 mcg PO 3XWK #36 tabs 07/24/23 flash glucose scanning reader #6 ea 07/24/23 (FreeStyle Rossy 14 Day Dunn) flash glucose sensor (FreeStyle #1 ea 07/24/23 Rossy 14 Day Sensor kit) gabapentin 100 mg capsule 100 mg PO HS #90 caps 07/24/23 ondansetron HCl 4 mg tablet 4 mg PO Q8H PRN nausea and 07/24/23 vomiting #30 tabs sertraline 50 mg tablet 50 mg PO DAILY #90 tabs 07/24/23 ticagrelor 90 mg tablet (Brilinta) 90 mg PO BID #180 tabs 07/24/23 Results & Data (ED) Vital Signs Vital Signs - 24 hr 08/25/23 13:37 08/25/23 16:36 Temperature 36.5 C Temperature Source Temporal Artery Scan Pulse Rate 80 Pulse Rate [Right Radial] 76 Respiratory Rate 16 18 Respiratory Effort / Characteristics Non-Labored Spontaneous Respiratory Depth Normal Blood Pressure 173/87 H Blood Pressure [Right Arm] 197/107 H Blood Pressure Mean 115 Blood Pressure Mean [Right Arm] 137 Pulse Oximetry 97 94 Oxygen Delivery Method Room Air Room Air Sepsis Recent Fever Within 48 Hours No Sepsis New/Unexplained Change in Mental Status No Sepsis Action Taken by Nursing No Action Required Laboratory Data 08/25/23 13:57 08/25/23 13:57 Lab Results 08/25/23 08/25/23 Range/Units 13:57 16:38 WBC 10.17 (4.8-10.8) K/ul RBC 3.99 L (4.20-5.40) M/uL Hgb 12.6 (12.0-16.0) g/dl Hct 39.1 (37.0-47.0) % MCV 98.0 (80.0-100.0) fL MCH 31.6 (25.0-34.0) pg MCHC 32.2 (32.0-36.0) g/dL RDW Std Deviation 48.0 H (36.4-46.3) fL RDW Coeff of Manuela 13.5 (11.5-14.5) % Plt Count 266 (130-400) K/uL MPV 10.4 (9.4-12.4) fL Immature Gran % (Auto) 0.2 % Neut % (Auto) 74.3 % Lymph % (Auto) 14.0 % [place] % (Auto) 8.0 % Eos % (Auto) 3.1 % Baso % (Auto) 0.4 % Neut # (Auto) 7.56 H (1.40-6.50) K/uL Lymph # (Auto) 1.42 (1.20-3.40) K/uL [place] # (Auto) 0.81 H (0.11-0.59) K/uL Eos # (Auto) 0.32 (0.00-0.50) K/uL Baso # (Auto) 0.04 (0.00-0.20) K/uL Immature Gran # (Auto) 0.02 (0.01-0.20) K/uL Sodium 137 (136-145) mmol/L Potassium 4.1 (3.5-5.1) mmol/L Chloride 98 (98-107) mmol/L Carbon Dioxide 31 (21-32) mmol/L Anion Gap 8 (3-11) BUN 48 H (6-23) mg/dl Creatinine 2.09 H (0.6-1.2) mg/dl Est Cr Clr Drug Dosing 23.3 ml/min Est GFR ( Amer) 24.7 ml/min Est GFR (Non-Af Amer) 21.4 ml/min BUN/Creatinine Ratio 23.0 H (10-20) Glucose 124 H (70-99(Fasting)) mg/dl Calcium 9.7 (8.6-10.3) mg/dl Total Bilirubin 0.5 (0.2-1.0) mg/dl AST 22 (13-39) U/L ALT 20 (7-52) U/L Alkaline Phosphatase 106 H (34-104) U/L Total Protein 7.6 (6.0-8.3) gm/dl Albumin 3.9 (3.4-5.0) gm/dl Globulin 3.7 (2.5-4.0) gm/dl Albumin/Globulin Ratio 1.1 (0.9-2) Lipase 13 (11-82) U/L Urine Color [place] Urine Appearance Turbid A (Clear) Urine pH 6.5 (4.5-7.5) Ur Specific [place] 1.013 (1.000-1.030) Urine Protein 2+ H (Negative) Urine Glucose (UA) Negative (Negative) Urine Ketones Negative (Negative) Urine Blood 3+ H (Negative) Urine Nitrite Negative (Negative) Urine Bilirubin Negative (Negative) Urine Urobilinogen Negative (Negative) Ur Leukocyte Esterase 2+ H (Negative) Urine WBC (Auto) >30 H (0-5) /hpf Urine RBC (Auto) >30 H (0-4) /hpf U Hyaline Cast (Auto) 1-5 (0-5) /lpf U Epithel Cells (Auto) 10-20 H (0-5) /lpf Urine Bacteria (Auto) Negative (Negative) Urine Yeast Not Reportable Administered Medications Discontinued Medications Ceftriaxone Sodium (Rocephin) 2,000 mg in 50 mls @ 100 mls/hr IV NOW STA Stop: 08/25/23 19:13 Last Admin: 08/25/23 19:31 Dose: 100 mls/hr Documented By: KAYLA Sodium Chloride (Nss) 1,000 mls @ 999 mls/hr IV .Q1H1M ONE Stop: 08/25/23 19:59 Last Admin: 08/25/23 19:30 Dose: 999 mls/hr Documented By: KAYLA Imaging Data Radiologist's Impression: Abdomen/Pelvis CT 08/25/23 16:38 CT SCAN OF THE ABDOMEN AND PELVIS WITHOUT IV CONTRAST CLINICAL HISTORY: Gross hematuria COMPARISON STUDY: Abdominal CT dated 12/18/2022. TECHNIQUE: CT scan of the abdomen and pelvis is performed from the lung bases to the proximal femora. Images are reviewed in the axial, sagittal, and coronal planes. IV contrast was not administered for this examination. A dose lowering technique was utilized adhering to the principles of ALARA. CT DOSE: 1286.17 mGy.cm FINDINGS: Lung bases: There is evidence of previous aortic valve surgery. The heart is enlarged and without pericardial effusion. Pacemaker leads are in place. Diffuse interstitial thickening is seen at the lung bases with bibasilar scarring. There is a small right pleural effusion with dependent atelectasis. A small hiatal hernia is noted. Liver: The unenhanced liver is normal in size, contour, and attenuation. There is no intrahepatic biliary ductal dilatation. Gallbladder: Surgically absent noting clips in the gallbladder fossa. Spleen: Normal in size and attenuation. Pancreas: The unenhanced pancreas is atrophic and grossly unremarkable. Adrenal glands: Unremarkable. Kidneys: The unenhanced kidneys are atrophic and without hydronephrosis. No renal calculi are identified and there is no ureteral stone. There is no evidence of contour deforming renal mass lesion. Abdominal vasculature: The abdominal aorta is normal in course and caliber noting advanced atherosclerotic calcification. Bowel: There is mild to moderate colonic fecal retention. No bowel obstruction is seen. The appendix is not identified and reported surgically absent. Peritoneum: There is no intraperitoneal free air or abdominal ascites. Lymphadenopathy: None. Pelvic viscera: The bladder is normal as visualized. The uterus is surgically absent. No adnexal lesion is seen Skeletal structures: The skeletal structures are osteopenic. There is moderate lumbosacral spondylosis. There is a chronic compression deformity of L1. No lytic or blastic lesions are seen. IMPRESSION: 1. No acute infectious or inflammatory findings are identified in the abdomen or pelvis. 2. Cardiomegaly and cardiac pacemaker. 3. Small right pleural effusion. 4. Additional findings as above. ACT 112: Negative or not required by law. Electronically signed by: Marcus East M.D. 08/25/2023 6:41 PM Discharge Plan Visit Data Chief Complaint: Urinary Symptoms Stated Complaint: DOC REF,BLATTER INFECTION,BLOOD CLOT? ED Provider: Lucie Kruse Discharge Problem: UTI (urinary tract infection), Hematuria Forms Stand Alone Forms: My [facility] apprupt Prescriptions Prescriptions: No Action cholecalciferol (vitamin D3) 25 mcg (1,000 unit) capsule 1,000 unit PO QAM trazodone 50 mg tablet 50 mg PO HS PRN (Reason: insomnia) Qty: 90 1RF (DME) insulin syringe-needle U-100 [BD SafetyGlide Insulin Syringe] 0.3 mL 31 gauge x 5/16" syringe See Rx Instructions .Route Qty: 100 3RF Rx Instructions: test three times daily Eliquis 2.5 mg tablet 2.5 mg PO BID Qty: 180 3RF levothyroxine 75 mcg tablet 75 mcg PO QAM Qty: 90 1RF pantoprazole [Protonix] 40 mg tablet,delayed release (DR/EC) 40 mg PO BID Qty: 180 1RF calcitriol [Rocaltrol] 0.25 mcg capsule 0.25 mcg PO 3XWK Qty: 12 1RF Rx Instructions: MONDAY/MONDAY/MONDAY/ IN THE AM magnesium oxide 400 mg magnesium capsule 400 mg PO QPM Qty: 90 0RF Hold Instructions: hypermagnesemia carvedilol 3.125 mg tablet 3.125 mg PO BID Qty: 180 3RF bumetanide 1 mg tablet 1 mg PO BID Qty: 180 3RF insulin asp prt-insulin aspart [Novolog Mix 70-30 U-100 Insuln] 100 unit/mL (70-30) solution 15 - 30 unit SUBCUT AMPM Qty: 30 5RF Rx Instructions: Per home sliding scale mupirocin 2 % ointment 1 applic topical BID Qty: 15 0RF digoxin 125 mcg (0.125 mg) tablet 125 mcg PO 3XWK Qty: 36 1RF Rx Instructions: MONDAY/MONDAY/MONDAY IN THE AM gabapentin 100 mg capsule 100 mg PO HS Qty: 90 1RF ondansetron HCl 4 mg tablet 4 mg PO Q8H PRN (Reason: nausea and vomiting) Qty: 30 0RF Brilinta 90 mg tablet 90 mg PO BID Qty: 180 3RF (DME) FreeStyle Rossy 14 Day Sensor Kit See Rx Instructions .Route Qty: 1 5RF Rx Instructions: Testing BS 4-5 times per day sertraline 50 mg tablet 50 mg PO DAILY Qty: 90 1RF (DME) FreeStyle Rossy 14 Day Dunn Misc See Rx Instructions .Route Qty: 6 1RF Rx Instructions: Testing BS 4-5 times per day vitamin E 400 unit capsule 400 unit PO QAM garlic 1,000 mg capsule 1,000 mg PO DAILY ranolazine 500 mg Tablet Extended Release 12 Hr 500 mg PO BID senna 8.6 mg capsule 8.6 mg PO DAILY PRN (Reason: constipation) Qty: 10 0RF polyethylene glycol 3350 [Miralax] 17 gram/dose Powder 17 g PO TID Qty: 119 0RF potassium gluconate 595 mg (99 mg) tablet 595 mg PO DAILY PRN (Reason: With Bumex) Rx Instructions: Take 1 tablet if you take a Bumex dose Referrals Referrals: Ebony Alvarenga, [Primary Care Provider] -
[2023-08-25 17:14] LABS: RBC Urine Automated >30 /hpf (0-4)
--- NOTE | 2023-08-25 18:43 | CT Scan Report ---
CT SCAN OF THE ABDOMEN AND PELVIS WITHOUT IV CONTRAST CLINICAL HISTORY: Gross hematuria COMPARISON STUDY: Abdominal CT dated 12/18/2022. TECHNIQUE: CT scan of the abdomen and pelvis is performed from the lung bases to the proximal femora. Images are reviewed in the axial, sagittal, and coronal planes. IV contrast was not administered for this examination. A dose lowering technique was utilized adhering to the principles of ALARA. CT DOSE: 1286.17 mGy.cm FINDINGS: Lung bases: There is evidence of previous aortic valve surgery. The heart is enlarged and without per icardial effusion. Pacemaker leads are in place. Diffuse interstitial thickening is seen at the lung bases with bibasilar scarring. There is a small right pleural effusion with dependent atelectasis. A small hiatal hernia is noted. Liver: The unenhanced liver is normal in size, contour, and attenuation. There is no intrahepatic tamie iary ductal dilatation. Gallbladder: Surgically absent noting clips in the gallbladder fossa. Spleen: Normal in size and attenuation. Pancreas: The unenhanced pancreas is atrophic and grossly unremarkable. Adrenal glands: Unremarkable. Kidneys: The unenhanced kidneys are atrophic and without hydronephrosis. No renal calculi are identif ied and there is no ureteral stone. There is no evidence of contour deforming renal mass lesion. Abdominal vasculature: The abdominal aorta is normal in course and caliber noting advanced atheroscle rotic calcification. Bowel: There is mild to moderate colonic fecal retention. No bowel obstruction is seen. The appendix is not identified and reported surgically absent. Peritoneum: There is no intraperitoneal free air or abdominal ascites. Lymphadenopathy: None. Pelvic viscera: The bladder is normal as visualized. The uterus is surgically absent. No adnexal lesi on is seen Skeletal structures: The skeletal structures are osteopenic. There is moderate lumbosacral spondylosi s. There is a chronic compression deformity of L1. No lytic or blastic lesions are seen. IMPRESSION: 1. No acute infectious or inflammatory findings are identified in the abdomen or pelvis. 2. Cardiomegaly and cardiac pacemaker. 3. Small right pleural effusion. 4. Additional findings as above. ACT 112: Negative or not required by law. Electronically signed by: Marcus East M.D. 08/25/2023 6:41 PM
[2023-08-25] MEDS ORDERED: cefTRIAXone SODIUM 2,000 MG/50 ML BAG IV STA (18:44)
[2023-08-25] MEDS ORDERED: SODIUM CHLORIDE 0.9% 1,000 ML IV ONE (18:59)
--- NOTE | 2023-08-25 20:46 | History & Physical Report ---
Date of Service August 25, 2023 Assessment & Plan (1) Hematuria: (2) Hyperlipidemia: (3) Depression: (4) HFrEF (heart failure with reduced ejection fraction): (5) DM II (diabetes mellitus, type II), controlled: (6) CKD (chronic kidney disease) stage 4, GFR 15-29 ml/min: (7) PAF (paroxysmal atrial fibrillation): (8) Pulmonary hypertension: (9) Biventricular ICD (implantable cardioverter-defibrillator) in place: (10) CAD (coronary artery disease): (11) Chronic obstructive pulmonary disease, unspecified: (12) PAD (peripheral artery disease): (13) GERD (gastroesophageal reflux disease): (14) Hypothyroidism: Plan 82 yo female PMHx CAD s/p stenting on Eliquis and Brilinta, s/p TAVR, s/p ICD, HFrEF, PAF, HTN, HLD, T2DM, CKD 4, GERD, Hypothyroidism, Interstitial Lung Dx, Pulmonary HTN, COPD, Depression admitted after multiple episodes of hematuria on day of admission 08/25/23. #Hematuria UTI vs Interstitial bladder dx vs Malignancy Hold Eliquis and Brilinta Urology consult Continue Rocephin #CAD/HFrEF Carvedilol Digoxin Hold Ranolazine Bumex PRN Replete lytes as needed #Paroxysmal A Fib Sinus paced rhythm #HTN Carvedilol #HLD Not on statin therapy #T2DM Lantus ISS #CKD 4 Cr 2.09 on admission, near baseline #Depression Sertraline Trazodone #GERD Protonix Zofran PRN #Hypothyroidism Levothyroxine #ILD #Pulmonary HTN #COPD FENGI: NPO after midnight, sips with meds Code status: Conditional: compressions, defibrillation, medication, no invasive ventilation DVT prophylaxis: SCDs Isolation: None Disposition: Med/Surg w/ Tele History of Present Illness Chief Complaint: Hematuria Primary Care Provider: Ebony Alvarenga, 82 yo female PMHx CAD s/p stenting on Eliquis and Brillinta, s/p TAVR, s/p ICD, HFrEF, PAF, HTN, HLD, T2DM, CKD 4, GERD, Hypothyroidism, Interstitial Lung Dx, Pulmonary HTN, COPD admitted after multiple episodes of hematuria on day of admission 08/25/23. On 08/24/23, pt developed urinary urgency without dysuria. Today, continued to have urgency and developed bright red blood in the urine. Kera whiting was seen at urgent care where numerous clots were seen in her urine sample. She was then directed to go to the emergency room. When seen and examined she complains only of supra-pubic pain/tenderness described as 610. She reports that her urine color has improved since the episode of clots earlier in the day. She denies flank pain or dysuria. Denies IRVIN, CP, SOB, N/V/D, LE swelling. In ED: received 1L NSS, 1 dose rocephin Allergies Allergy/AdvReac Type Severity Reaction Status Date / Time adhesive Allergy Intermediate REDNESS Verified 08/21/23 09:57 AND IRRITATION FROM PAIN PATCH, TAPE latex Allergy Intermediate ALLERGIC Verified 08/21/23 09:57 TO LATEX TAPE/RASH/ITCHING morphine Allergy Intermediate swelling Verified 08/21/23 09:57 nausea vomiting olmesartan Allergy Unknown UNKNOWN Verified 08/21/23 09:57 benzonatate AdvReac Intermediate confusion Verified 08/21/23 09:57 [From Giovanni Brennan] dulaglutide [From Trulicity] AdvReac Intermediate AFFECTS Verified 08/21/23 09:57 MUSCLES exenatide [From Byetta] AdvReac Intermediate Diarrhea Verified 08/21/23 09:57 ezetimibe AdvReac Intermediate MUSCLE Verified 08/21/23 09:57 ACHES glipizide AdvReac Intermediate Diarrhea Verified 08/21/23 09:57 glyburide AdvReac Intermediate Diarrhea Verified 08/21/23 09:57 lisinopril AdvReac Intermediate LIGHTHEADED Verified 08/21/23 09:57 AND DIZZY losartan AdvReac Intermediate dizziness Verified 08/21/23 09:57 metformin AdvReac Intermediate Diarrhea Verified 08/21/23 09:57 pioglitazone AdvReac Intermediate DIARRHEA Verified 08/21/23 09:57 NAUSEA sitagliptin [From Januvia] AdvReac Intermediate Diarrhea Verified 08/21/23 09:57 Xlcpwws-[id number]-OdQ Reductase AdvReac Intermediate myalgias Verified 08/21/23 09:57 Inhibitor and [Hcmmxsy-Ngl-Uxr Reductase weakness Inhibitor] aspirin AdvReac Mild GI SYMPTOMS Verified 08/21/23 09:57 Home Medications Medication Instructions Recorded Confirmed Type magnesium oxide 400 mg PO QPM #90 caps 04/01/19 08/25/23 Rx vitamin E 268 mg (400 unit) capsule 400 unit PO QAM 03/29/20 08/25/23 History cholecalciferol (vitamin D3) 25 1,000 unit PO QAM 05/17/21 08/25/23 History mcg (1,000 unit) capsule trazodone 50 mg tablet 50 mg PO HS PRN insomnia #90 tabs 06/23/22 08/25/23 Rx insulin syringe-needle U-100 0.3 #100 ea 08/15/22 08/25/23 Rx mL 31 gauge x 5/16" (BD SafetyGlide Insulin Syringe) apixaban 2.5 mg tablet (Eliquis) 2.5 mg PO BID #180 tabs 10/18/22 08/25/23 Rx insulin aspar prt-insulin aspart 15 - 30 unit (0.15 - 0.3 mL) 11/28/22 08/25/23 Rx 100 unit/mL (70-30) subcutaneous subcut AMPM #30 mL soln (Novolog Mix 70-30 U-100 Insuln) mupirocin 2 % topical ointment 1 applic topical BID #15 grams 11/28/22 08/25/23 Rx ranolazine 500 mg tablet,extended 500 mg PO BID 12/18/22 08/25/23 History release,12 hr polyethylene glycol 3350 17 17 g PO TID #119 grams 12/23/22 08/25/23 Rx gram/dose oral powder (Miralax) sennosides 8.6 mg capsule (senna) 8.6 mg PO DAILY PRN constipation 12/23/22 08/25/23 Rx #10 caps levothyroxine 75 mcg tablet 75 mcg PO QAM #90 tabs 04/20/23 08/25/23 Rx carvedilol 3.125 mg tablet 3.125 mg PO BID #180 tabs 04/27/23 08/25/23 Rx garlic 1,000 mg capsule 1,000 mg PO DAILY 05/29/23 08/25/23 History calcitriol 0.25 mcg capsule 0.25 mcg PO 3XWK #12 caps 06/26/23 08/25/23 Rx (Rocaltrol) pantoprazole 40 mg tablet,delayed 40 mg PO BID #180 tabs 06/26/23 08/25/23 Rx release (Protonix) bumetanide 1 mg tablet 1 mg PO BID Shortness of 07/04/23 08/25/23 Rx breath/weight gain #180 tabs digoxin 125 mcg (0.125 mg) tablet 125 mcg PO 3XWK #36 tabs 07/24/23 08/25/23 Rx flash glucose scanning reader #6 ea 07/24/23 08/25/23 Rx (FreeStyle [place]y 14 Day [place]) flash glucose sensor (FreeStyle #1 ea 07/24/23 08/25/23 Rx Rossy 14 Day Sensor kit) gabapentin 100 mg capsule 100 mg PO HS #90 caps 07/24/23 08/25/23 Rx ondansetron HCl 4 mg tablet 4 mg PO Q8H PRN nausea and 07/24/23 08/25/23 Rx vomiting #30 tabs sertraline 50 mg tablet 50 mg PO DAILY #90 tabs 07/24/23 08/25/23 Rx ticagrelor 90 mg tablet (Brilinta) 90 mg PO BID #180 tabs 07/24/23 08/25/23 Rx potassium gluconate 595 mg (99 mg) 595 mg PO DAILY PRN With Bumex 08/25/23 08/25/23 History tablet Past Med/Surg History Medical History (Updated 08/25/23 @ 20:57 by Eric Arana DO) Osteoarthritis Orthostasis Hyperlipidemia Acute kidney injury superimposed on chronic kidney disease Non-ST elevation WI (NSTEMI) Depression Nausea and vomiting after administration of anesthetic agent severe PONV s/p Left carotid surgery 09/27/21 at [facility] PAF (paroxysmal atrial fibrillation) History of CVA (cerebrovascular accident) Had RUE weakness and numbness after 09/17/21 breast surgery- CT scan of head negative; unable to do MRI due to ICD Per PCP records 10/22/21= "[place] her post op RUE sx related to possible small stroke/TIA" Breast cancer, right Right breast mastectomy 09/17/21 at [facility] Subclavian artery stenosis Rheumatoid arthritis No medications Followed with rheum in the past- no recent issues Chronic kidney disease STAGE IV-F/U DR SALINAS Diabetes mellitus, type 2 Glucose fluctuates SOB (shortness of breath) on exertion DVT (deep venous thrombosis) LOWER LEG 2020 Ischemic cardiomyopathy Insomnia Biventricular ICD (implantable cardioverter-defibrillator) in place (04/30/20) [employer] implanted 04/30/2020. Capped right ventricular pacing lead Last check 09/2021 Antiplatelet or antithrombotic long-term use Secondary hyperparathyroidism of renal origin Anemia due to chronic kidney disease Chronic obstructive pulmonary disease, unspecified Breathing stable CAD (coronary artery disease) F/U DR CUEVA S/p NATY x 1 to Cx in 2019; NATY to ostial LM 01/10/20 Aortic stenosis, severe S/p TAVR 10/2019 PAD (peripheral artery disease) S/p MAINTENANCE MECHANIC ENGINE and stenting of right SFA, and MAINTENANCE MECHANIC ENGINE of left SFA and common femoral artery Spondylosis Pulmonary hypertension RVSP 40-45mmHg on 10/2020 ECHO NSTEMI (non-ST elevated myocardial infarction) Most recent 12/2019 (mild per patient) Chronic combined systolic and diastolic CHF (congestive heart failure) EF 40% per 10/16/21 ECHO GERD (gastroesophageal reflux disease) Hypothyroidism Left bundle branch block Bilateral carotid artery stenosis H/o bilateral CEAs in 2016 Per 07/2021 vascular note- carotid ultrasound from office visit showed patent right CEA with velocities suggesting 50-59% stenosis restenosis Patent left CEA with velocities suggesting 99% restenosis - had re-do of left CEA 09/27/21 Surgical History S/P AV hiren ablation (06/30/22) H/O heart artery stent H/O colonoscopy History of left-sided carotid endarterectomy (09/27/21) redo L CEA, Dr Bateman Status post partial mastectomy of right breast (09/17/21) 09/17/21 - Done under [place] with LMA #4. Atraumatic LMA insertion. Magnet placed secondary to pacemaker. Right Breast Partial Mastectomy with [place] Lead Pastor Localization, Right Axillary [place] Lymph Node Biopsy(Right) - Hua Acosta DO History of cardiac cath TOTAL 6? STENTS- 2018 and 2019 S/P coronary artery stent placement (10/2018) NATY prox mid LAD S/P coronary artery stent placement (10/2017) NATY to mid LAD S/P carotid endarterectomy B/l 2016 S/P thoracentesis (03/2020) b/l d/t CHF S/P angioplasty (02/03/21) MAINTENANCE MECHANIC ENGINE L SFA 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) History of oophorectomy History of hysterectomy History of cholecystectomy H/O: section History of cataract surgery right and left History of appendectomy Family History Daughter Coronary heart disease Diabetes Mother Diabetes Family history of hypercholesterolemia Myocardial infarction Hypertension Stroke Brother Colorectal cancer Father Accident Brother Diabetes Family/Other Myocardial infarction Son Coronary heart disease Hypertension Other Pacemaker Denies family history of Ovarian cancer Prostate cancer Breast cancer Social History Smoking Status: Never smoker Second Hand Exposure: No; Do You Dip or Chew Tobacco: No; Hx Alcohol Use: No Hx Substance Use: No Preferred Language: Georgian Communication Ability: Effective Visual Impairment: No Limitations Hearing Ability: Hard of Hearing Cutter Inspector Required: No Beliefs That Will Affect Care: None marital status: / marital status details: passed 2000 Current Living Situation: Alone current occupational status: retired 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 How many Children do You have: 2 Other Information That Helps Us Care for You: No Feels Safe at Home: Yes Safety Concerns: Feels Safe At This Time Diet: regular caffeine: Yes (1 cup/day) during the past year weight has: remained stable Dental Care, Regularly: No Physical Activity Frequency: Daily Seatbelt Use: always Assistive Devices: Cane, Denture - Upper, Denture - Lower, Glasses and Walker Review of Systems Review of Systems: reviewed, per HPI Physical Exam Physical Exam: Vital signs as above General: patient resting comfortably, NAD, non-toxic in appearance, AA&O x 4, answers questions appropriately and follows commands. Skin: warm, dry, intact HEENT: NC/AT, anicteric sclera, conjunctiva without injection, moist mucus membranes, trachea midline, no thyromegaly, no JVD Heart: +S1/S2, regular, no m/r/g Lungs: equal air entry bilaterally, no rales/rhonchi/wheezes Abd: +BS, soft, NT/ND, no masses/organomegaly/ascites Ext: warm, no clubbing/cyanosis or edema Neuro: nonfocal, patient AA&O x 4, speech intact, no facial droop, moving all extremities on command. Results & Data Results & Data Vital Signs (Past 12 Hours) Vital Signs Temp Pulse Pulse Resp BP BP Pulse Ox 08/25/23 16:36 76 18 197/107 H 94 08/25/23 13:37 36.5 C 80 16 173/87 H 97 O2 Del Method 08/25/23 16:36 Room Air 08/25/23 13:37 Room Air Supervising Physician Co-Signing Physician Notes Attending addendum: I have physically seen this patient, have supervised the medical residents activities, and agree with the H&P unless as otherwise noted. Assessment and Plan: Gross hematuria with clots- Follow urine culture sensitivity Holding Eliquis, Brilinta, and ranolazine Ceftriaxone 2 g IV daily N.p.o. except essential medications Consult urology CAD/HFrEF/paroxysmal atrial fibrillation/hypertension- Continue carvedilol, digoxin Diabetes mellitus- Hold insulin 70/30 Placed on glargine 8 units subcu twice daily Sliding scale NovoLog insulin with meals and at bedtime Resident Activity Tracking Resident Involvement: Resident Care Provided Care Provided: Adult Hospital Medicine (5) DM II (diabetes mellitus, type II), controlled Diabetes mellitus complication detail: with nephropathy Diabetes mellitus complication status: with kidney complications Diabetes mellitus tank terminal gauger insulin use: with tank terminal gauger use Qualified Code(s): E11.21 - Type 2 diabetes mellitus with diabetic nephropathy; Z79.4 - MCC (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 (14) Hypothyroidism Hypothyroidism type: acquired Qualified Code(s): E03.9 - Hypothyroidism, unspecified
[2023-08-25] MEDS ORDERED: NITROGLYCERIN SL 0.4 MG/TAB TAB SL PRN (22:42)
[2023-08-25] MEDS ORDERED: GLUCAGON FOR INJ 1 MG VIAL SQ PRN (22:42)
[2023-08-25] MEDS ORDERED: NON-FORMULARY MEDICATION (Potassium Gluconate 595 mg (99 mg) tablet) PO PRN (22:42)
[2023-08-25] MEDS ORDERED: POLYETHYLENE (MIRALAX) 17 GM PACK PO PRN (22:42)
[2023-08-25] MEDS ORDERED: GLUCOSE 40% GEL 15 GM TUBE PO PRN (22:42)
[2023-08-25] MEDS ORDERED: ONDANSETRON INJ 2 MG/ML 2 ML VIAL IV PRN (22:42)
[2023-08-25] MEDS ORDERED: ALUMINUM/MAGNESIUM SUSP 30 ML UDC PO PRN (22:42)
[2023-08-25] MEDS ORDERED: GLUCOSE 10 TAB/TUBE PO PRN (22:42)
[2023-08-25] MEDS ORDERED: CARBOHYDRATES FOR HYPOGLYCEMIA PO PRN (22:42)
[2023-08-25] MEDS ORDERED: traZODone HCL 50 MG TAB PO PRN (22:42)
[2023-08-25] MEDS ORDERED: DEXTROSE 50% 50 ML SYRINGE IV PRN (22:42)
[2023-08-25] MEDS ORDERED: ONDANSETRON 4 MG OD TAB PO PRN (22:53)
[2023-08-25] MEDS: LACTATED RINGER'S 1,000 ML IV SCH (23:26)
[2023-08-26] MEDS: ACETAMINOPHEN 325 MG TAB PO PRN ×2 (02:18→21:27)
--- NOTE | 2023-08-26 05:18 | Billing Data ---
Date of Service August 26, 2023 Coding Level of Care Code 76428 INT INP/OBS CARE
[2023-08-26] MEDS: LEVOTHYROXINE SODIUM 75 MCG TABLET PO SCH (06:19)
[2023-08-26 06:57] LABS: Basophils # (auto) 0.04 K/uL (0.00-0.20); Basophils % (auto) 0.5 %; Eosinophils # (auto) 0.31 K/uL (0.00-0.50); Eosinophils % (auto) 3.7 %; Hematocrit (blood only) 35.8 % (37.0-47.0); Hemoglobin 11.3 g/dl (12.0-16.0); Immature Granulocytes # (auto) 0.03 K/uL (0.01-0.20); Immature Granulocytes % (auto) 0.4 %; Lymphocytes # (auto) 1.84 K/uL (1.20-3.40); Lymphocytes % (auto) 21.9 %; Mean Corpuscular Hemoglobin 30.9 pg (25.0-34.0); Mean Corpuscular Hgb Conc 31.6 g/dL (32.0-36.0); Mean Corpuscular Volume 97.8 fL (80.0-100.0); Mean Platelet Volume 10.5 fL (9.4-12.4); Monocytes # (auto) 0.81 K/uL (0.11-0.59); Monocytes % (auto) 9.7 %; Neutrophils # (auto) 5.36 K/uL (1.40-6.50); Neutrophils % (auto) 63.8 %; Platelet Count 226 K/uL (130-400); RDW Coefficient of Variation 13.4 % (11.5-14.5); RDW Standard Deviation 48.9 fL (36.4-46.3); Red Blood Count 3.66 M/uL (4.20-5.40); White Blood Count 8.39 K/ul (4.8-10.8)
[2023-08-26 07:34] LABS: Albumin Globulin Ratio 1.1 (0.9-2); Albumin Level 3.3 gm/dl (3.4-5.0); BUN Creatinine Ratio 23.6 (10-20); Bilirubin,Total 0.3 mg/dl (0.2-1.0); Calcium 8.8 mg/dl (8.6-10.3); Creatinine Clr Calc Pharmacy 26.7 ml/min; Est GFR (African American) 30.9 ml/min; Est GFR (Non-African American) 26.6 ml/min; Globulin 3.1 gm/dl (2.5-4.0); Potassium 4.1 mmol/L (3.5-5.1); Total Protein 6.4 gm/dl (6.0-8.3)
[2023-08-26] MEDS: LACTATED RINGER'S 1,000 ML IV SCH (07:36)
[2023-08-26] MEDS: carvediloL 3.125 MG TAB PO SCH ×2 (08:28→20:46)
[2023-08-26] MEDS: TOCOPHERYL, DL-ALPHA 400 UNITS 180 MG CAP PO SCH (08:28)
[2023-08-26] MEDS: SERTRALINE HCL 50 MG TABLET PO SCH (08:28)
[2023-08-26] MEDS: CHOLECALCIFEROL 1,000 UNITS 25 MCG TAB PO SCH (08:28)
[2023-08-26] MEDS: PANTOprazole 40 MG TAB PO SCH ×2 (08:28→20:46)
--- NOTE | 2023-08-26 08:38 | Urology Consultation ---
Date of Consultation August 26, 2023 Assessment & Plan (1) Hematuria: 82-year-old female with recent episodes of gross hematuria. She appears to be draining well and hematuria is clearing while she is holding her anticoagulation. We discussed that there are several possible underlying causes of hematuria, but the main concerns would be bladder cancer or kidney cancer. She will require full hematuria work-up but this will be done as an outpatient with cystoscopy and imaging of the upper tracts. For now, as long as she continues to empty her bladder well, we can treat for suspected infection, hold anticoagulation per primary team, keep her well- hydrated. If she develops urinary retention, Carlton catheter can be placed with hand irrigation for clots. Since urine has largely cleared at this point, I suspect this will not be needed. Urology will coordinate outpatient follow-up. We will sign off for now. Please call with any questions or concerns History of Present Illness Attending Physician: Abbey Hernandez MD History of Present Illness This is an 82-year-old female with history of CAD, COPD, recently admitted to the hospital for hematuria. She describes the hematuria starting over the past couple days, and being associated with burning and pressure over her bladder and bilateral sides. She has a history of hematuria couple months ago which resolved with antibiotics and hydration. She has never seen a urologist before, and has never undergone work-up for hematuria. Today she reports that the hematuria has gradually turned to a darker red and now seems to be clearing. She denies any significant clots or retention. Labs reviewed: 08/26/2023: WBC 8.39, hemoglobin 11.3 08/26/2023: Creatinine 1.74 08/25/2023: Urinalysis negative for bacteria, 2+ leukocyte esterase, negative nitrites She had a CT scan performed on 08/25/2023. I independently reviewed these images. Both kidneys are in normal position. I do not appreciate any hydro nephrosis or stones on either side. Her bladder appears grossly normal with no obvious intraluminal defects. Exam is limited by lack of contrast. Allergies Allergy/AdvReac Type Severity Reaction Status Date / Time adhesive Allergy Intermediate REDNESS Verified 08/21/23 09:57 AND IRRITATION FROM PAIN PATCH, TAPE latex Allergy Intermediate ALLERGIC Verified 08/21/23 09:57 TO LATEX TAPE/RASH/ITCHING morphine Allergy Intermediate swelling Verified 08/21/23 09:57 nausea vomiting olmesartan Allergy Unknown UNKNOWN Verified 08/21/23 09:57 benzonatate AdvReac Intermediate confusion Verified 08/21/23 09:57 [From Giovanni Brennan] dulaglutide [From Trulicity] AdvReac Intermediate AFFECTS Verified 08/21/23 09:57 MUSCLES exenatide [From Byetta] AdvReac Intermediate Diarrhea Verified 08/21/23 09:57 ezetimibe AdvReac Intermediate MUSCLE Verified 08/21/23 09:57 ACHES glipizide AdvReac Intermediate Diarrhea Verified 08/21/23 09:57 glyburide AdvReac Intermediate Diarrhea Verified 08/21/23 09:57 lisinopril AdvReac Intermediate LIGHTHEADED Verified 08/21/23 09:57 AND DIZZY losartan AdvReac Intermediate dizziness Verified 08/21/23 09:57 metformin AdvReac Intermediate Diarrhea Verified 08/21/23 09:57 pioglitazone AdvReac Intermediate DIARRHEA Verified 08/21/23 09:57 NAUSEA sitagliptin [From Januvia] AdvReac Intermediate Diarrhea Verified 08/21/23 09:57 Ozevnog-OAR-UyO Reductase AdvReac Intermediate myalgias Verified 08/21/23 09:57 Inhibitor and [Rajowrj-Iga-Txj Reductase weakness Inhibitor] aspirin AdvReac Mild GI SYMPTOMS Verified 08/21/23 09:57 Home Medications Medication Instructions Recorded Confirmed Type magnesium oxide 400 mg PO QPM #90 caps 04/01/19 08/25/23 Rx vitamin E 268 mg (400 unit) capsule 400 unit PO QAM 03/29/20 08/25/23 History cholecalciferol (vitamin D3) 25 1,000 unit PO QAM 05/17/21 08/25/23 History mcg (1,000 unit) capsule trazodone 50 mg tablet 50 mg PO HS PRN insomnia #90 tabs 06/23/22 08/25/23 Rx insulin syringe-needle U-100 0.3 #100 ea 08/15/22 08/25/23 Rx mL 31 gauge x 5/16" (BD SafetyGlide Insulin Syringe) apixaban 2.5 mg tablet (Eliquis) 2.5 mg PO BID #180 tabs 10/18/22 08/25/23 Rx insulin aspar prt-insulin aspart 15 - 30 unit (0.15 - 0.3 mL) 11/28/22 08/25/23 Rx 100 unit/mL (70-30) subcutaneous subcut AMPM #30 mL soln (Novolog Mix 70-30 U-100 Insuln) mupirocin 2 % topical ointment 1 applic topical BID #15 grams 11/28/22 08/25/23 Rx ranolazine 500 mg tablet,extended 500 mg PO BID 12/18/22 08/25/23 History release,12 hr polyethylene glycol 3350 17 17 g PO TID #119 grams 12/23/22 08/25/23 Rx gram/dose oral powder (Miralax) sennosides 8.6 mg capsule (senna) 8.6 mg PO DAILY PRN constipation 12/23/22 08/25/23 Rx #10 caps levothyroxine 75 mcg tablet 75 mcg PO QAM #90 tabs 04/20/23 08/25/23 Rx carvedilol 3.125 mg tablet 3.125 mg PO BID #180 tabs 04/27/23 08/25/23 Rx garlic 1,000 mg capsule 1,000 mg PO DAILY 05/29/23 08/25/23 History calcitriol 0.25 mcg capsule 0.25 mcg PO 3XWK #12 caps 06/26/23 08/25/23 Rx (Rocaltrol) pantoprazole 40 mg tablet,delayed 40 mg PO BID #180 tabs 06/26/23 08/25/23 Rx release (Protonix) bumetanide 1 mg tablet 1 mg PO BID Shortness of 07/04/23 08/25/23 Rx breath/weight gain #180 tabs digoxin 125 mcg (0.125 mg) tablet 125 mcg PO 3XWK #36 tabs 07/24/23 08/25/23 Rx flash glucose scanning reader #6 ea 07/24/23 08/25/23 Rx (FreeStyle Rossy 14 Day [place]) flash glucose sensor (FreeStyle #1 ea 07/24/23 08/25/23 Rx Rossy 14 Day Sensor kit) gabapentin 100 mg capsule 100 mg PO HS #90 caps 07/24/23 08/25/23 Rx ondansetron HCl 4 mg tablet 4 mg PO Q8H PRN nausea and 07/24/23 08/25/23 Rx vomiting #30 tabs sertraline 50 mg tablet 50 mg PO DAILY #90 tabs 07/24/23 08/25/23 Rx ticagrelor 90 mg tablet (Brilinta) 90 mg PO BID #180 tabs 07/24/23 08/25/23 Rx potassium gluconate 595 mg (99 mg) 595 mg PO DAILY PRN With Bumex 08/25/23 08/25/23 History tablet Patient History Medical History (Updated 08/25/23 @ 20:57 by Eric Arana DO) Osteoarthritis Orthostasis Hyperlipidemia Acute kidney injury superimposed on chronic kidney disease Non-ST elevation FL (NSTEMI) Depression Nausea and vomiting after administration of anesthetic agent severe PONV s/p Left carotid surgery 09/27/21 at [facility] PAF (paroxysmal atrial fibrillation) History of CVA (cerebrovascular accident) Had RUE weakness and numbness after 09/17/21 breast surgery- CT scan of head negative; unable to do MRI due to ICD Per PCP records 10/22/21= "[place] her post op RUE sx related to possible small stroke/TIA" Breast cancer, right Right breast mastectomy 09/17/21 at [facility] Subclavian artery stenosis Rheumatoid arthritis No medications Followed with rheum in the past- no recent issues Chronic kidney disease STAGE IV-F/U DR SALINAS Diabetes mellitus, type 2 Glucose fluctuates SOB (shortness of breath) on exertion DVT (deep venous thrombosis) LOWER LEG 2019 Ischemic cardiomyopathy Insomnia Biventricular ICD (implantable cardioverter-defibrillator) in place (04/30/20) Medtr[employer] implanted 04/30/2020. Capped right ventricular pacing lead Last check 09/2021 Antiplatelet or antithrombotic long-term use Secondary hyperparathyroidism of renal origin Anemia due to chronic kidney disease Chronic obstructive pulmonary disease, unspecified Breathing stable CAD (coronary artery disease) F/U DR CUEVA S/p NATY x 1 to Cx in 2019; NATY to ostial LM 01/10/20 Aortic stenosis, severe S/p TAVR 10/2019 PAD (peripheral artery disease) S/p CAST SHELL GRINDER and stenting of right SFA, and CAST SHELL GRINDER of left SFA and common femoral artery Spondylosis Pulmonary hypertension RVSP 40-45mmHg on 10/2020 ECHO NSTEMI (non-ST elevated myocardial infarction) Most recent 12/2019 (mild per patient) Chronic combined systolic and diastolic CHF (congestive heart failure) EF 40% per 10/16/21 ECHO GERD (gastroesophageal reflux disease) Hypothyroidism Left bundle branch block Bilateral carotid artery stenosis H/o bilateral CEAs in 2016 Per 07/2021 vascular note- carotid ultrasound from office visit showed patent right CEA with velocities suggesting 50-59% stenosis restenosis Patent left CEA with velocities suggesting 99% restenosis - had re-do of left CEA 09/27/21 Surgical History S/P AV hiren ablation (06/30/22) H/O heart artery stent H/O colonoscopy History of left-sided carotid endarterectomy (09/27/21) redo L CEA, Dr Bateman Status post partial mastectomy of right breast (09/17/21) 09/17/21 - Done under [place] with LMA #4. Atraumatic LMA insertion. Magnet placed secondary to pacemaker. Right Breast Partial Mastectomy with [place] Stone Grader Localization, Right Axillary [place] Lymph Node Biopsy(Right) - Hua Acosta DO History of cardiac cath TOTAL 6? STENTS- 2018 and 2019 S/P coronary artery stent placement (10/2018) NATY prox mid LAD S/P coronary artery stent placement (10/2017) NATY to mid LAD S/P carotid endarterectomy B/l 2016 S/P thoracentesis (03/2020) b/l d/t CHF S/P angioplasty (02/03/21) CAST SHELL GRINDER L SFA 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) History of oophorectomy History of hysterectomy History of cholecystectomy H/O: section History of cataract surgery right and left History of appendectomy Family History Daughter Coronary heart disease Diabetes Mother Diabetes Family history of hypercholesterolemia Myocardial infarction Hypertension Stroke Brother Colorectal cancer Father Accident Brother Diabetes Family/Other Myocardial infarction Son Coronary heart disease Hypertension Other Pacemaker Denies family history of Ovarian cancer Prostate cancer Breast cancer Social History Smoking Status: Never smoker Second Hand Exposure: No; Do You Dip or Chew Tobacco: No; Hx Alcohol Use: No Hx Substance Use: No Preferred Language: Faroese Communication Ability: Effective Visual Impairment: No Limitations Hearing Ability: Hard of Hearing Engineering Vice President Required: No Beliefs That Will Affect Care: None marital status: / marital status details: passed 2000 Current Living Situation: Alone current occupational status: retired 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 Physical Exam Constitutional: well developed and well nourished; no acute distress Eyes: + anicteric sclerae; pupils not irregula r Respiratory: normal respiratory effort; no respiratory distress, does not use accessory muscles and no cough Cardiovascular: well perfused Gastrointestinal (Abdomen): Inspection/Auscultation: abdomen normal to inspection; abdomen not distended Musculoskeletal: Extremities: extremities normal to inspection Skin: normal turgor; no rashes and no lesions Neurologic: moves all extremities and awake Psychiatric: Orientation: alert and oriented x 3 Results & Data Vital Signs (Past 12 Hours) Vital Signs Temp Pulse Pulse Pulse Resp BP Pulse Ox 08/26/23 07:50 36.6 C 70 16 155/77 H 95 08/26/23 07:00 71 08/26/23 03:39 36.8 C 70 18 128/74 91 08/25/23 23:00 76 08/25/23 23:00 36.6 C 85 12 198/97 H 94 08/25/23 22:00 72 16 169/77 H 97 O2 Del Method 08/26/23 07:50 Room Air 08/26/23 07:00 08/26/23 03:39 Room Air 08/25/23 23:00 08/25/23 23:00 Room Air 08/25/23 22:00 Room Air PG Care Time/CCT Total # of Minutes Spent Total Time Spent with Patient: Total time spent is greater than 50% in coordination of care (as documented) at patient's floor/unit and/or counseling patient: Coding Level of Care Code 08902 INT INP/OBS CARE 2/55MIN Diagnoses Hematuria R31.9
[2023-08-26] MEDS ORDERED: LANTUS PER UNIT CHARGE SQ SCH (09:00)
[2023-08-26] MEDS: INSULIN ASPART PER UNIT CHARGE SC SCH ×4 (09:09→20:25)
[2023-08-26] MEDS: LANTUS PER UNIT CHARGE SQ SCH ×2 (09:09→21:16)
--- NOTE | 2023-08-26 16:21 | Hospitalist Progress Note ---
Date of Service August 26, 2023 Assessment & Plan (1) Hematuria: (2) Hyperlipidemia: (3) Depression: (4) HFrEF (heart failure with reduced ejection fraction): (5) DM II (diabetes mellitus, type II), controlled: (6) CKD (chronic kidney disease) stage 4, GFR 15-29 ml/min: (7) PAF (paroxysmal atrial fibrillation): (8) Pulmonary hypertension: (9) Biventricular ICD (implantable cardioverter-defibrillator) in place: (10) CAD (coronary artery disease): (11) Chronic obstructive pulmonary disease, unspecified: (12) PAD (peripheral artery disease): (13) GERD (gastroesophageal reflux disease): (14) Hypothyroidism: Plan 82 yo female PMHx CAD s/p stenting on Eliquis and Brilinta, s/p TAVR, s/p ICD, HFrEF, PAF, HTN, HLD, T2DM, CKD 4, GERD, Hypothyroidism, Interstitial Lung Dx, Pulmonary HTN, COPD, Depression admitted after multiple episodes of hematuria on day of admission 08/25/23 that has been improving since admission. #Hematuria UTI vs Interstitial bladder dx vs Malignancy Hold Eliquis and Brilinta --> will start SQH for DVT ppx Urology consult -plan on outpatient work-up with cystoscopy and imaging, to be arranged by urology Urine culture 08/25: 3 types of organisms present, all moderate counts, repeat collection recommended, no further identifications or sensitivities to follow Will repeat culture but may be falsely negative given patient already on abx Continue Rocephin for now given ongoing abdominal discomfort and urinary sym ptoms #CAD/HFrEF Carvedilol Digoxin Home Ranolazine resumed 08/26 Home Bumex resumed 08/26 Replete lytes as needed #Paroxysmal A Fib Sinus paced rhythm #HTN Carvedilol #HLD Not on statin therapy #T2DM Lantus ISS #CKD 4 Cr 2.09 on admission, near baseline and improving #Depression Sertraline Trazodone #GERD Protonix Zofran PRN #Hypothyroidism Levothyroxine #ILD #Pulmonary HTN #COPD FENGI: DM diet Code status: Conditional: compressions, defibrillation, medication, no invasive ventilation DVT prophylaxis: SQH Isolation: None Disposition: Med/Surg w/ Tele. PT eval - can return home Admission and Anticipated Discharge Date Admission Date: August 25, 2023 Subjective Patient endorses ongoing lower abdominal pain with some nausea. She continues to endorse some dysuria but states her urine is clearing up in color. Denies any ongoing red or brown color to her urine and now is more yellow in nature. She expresses some concern over her medications today she denies any lightheadedness/dizziness, chest pain, shortness of breath Review of Systems Review of Systems: Per subjective Physical Exam Physical Exam: General: Well-appearing, NAD Cardiovascular: RRR, + systolic murmur Pulmonary: CTAB, no W/R/R Abdomen: Soft, ND, mild TTP lower abdomen, no guarding. No CVA TTP Extremities: Moving all extremities, no pedal edema Integumentary: No suspicious rash or lesion on exposed skin Neurologic: AAOx3, no focal deficits Psychiatric: Appropriate mood/affect Results & Data Results & Data Vital Signs (Past 12 Hours) Vital Signs Temp Pulse Pulse Resp BP Pulse Ox O2 Del Method 08/26/23 16:11 36.7 C 73 18 132/60 91 Room Air 08/26/23 15:00 62 08/26/23 11:53 36.6 C 77 20 165/74 H 95 Room Air 08/26/23 08:00 Room Air 08/26/23 07:50 36.6 C 70 16 155/77 H 95 Room Air 08/26/23 07:00 71 Laboratory Results Reviewed CBCnotable for decreasing hemoglobin to 11.3. Reviewed CMP with improved creatinine down to 1.74. Hyperglycemia noted. Diagnostic Findings Urine culture 08/25: 3 types of organisms present, all moderate counts, repeat collection recommended, no further identifications or sensitivities to follow PG Care Time/CCT Total # of Minutes Spent Total Time Spent with Patient: Total time spent is greater than 50% in coordination of care (as documented) at patient's floor/unit and/or counseling patient: Coding Level of Care Code 45675 SUB INP/OBS CARE 3/50MIN Diagnoses Hematuria R31.9 Hyperlipidemia E78.5 Depression F32.A HFrEF (heart failure with reduced ejection fraction) I50.20 Controlled type 2 diabetes mellitus with diabetic nephropathy, with long-term current use of insulin E11.21; Z79.4 Diabetes mellitus rat exterminator insulin use: with rat exterminator use Diabetes mellitus complication status: with kidney complications Diabetes mellitus complication detail: with nephropathy CKD (chronic kidney disease) stage 4, GFR 15-29 ml/min N18.4 PAF (paroxysmal atrial fibrillation) I48.0 Pulmonary hypertension I27.20 Biventricular ICD (implantable cardioverter-defibrillator) in place Z95.810 CAD (coronary artery disease) I25.10 Chronic obstructive pulmonary disease, unspecified J44.9 PAD (peripheral artery disease) I73.9 GERD (gastroesophageal reflux disease) K21.9 Acquired hypothyroidism E03.9 Hypothyroidism type: acquired (5) DM II (diabetes mellitus, type II), controlled Diabetes mellitus nursing home insulin use: with nursing home use Diabetes mellitus complication status: with kidney complications Diabetes mellitus complication detail: with nephropathy Qualified Code(s): E11.21 - Type 2 diabetes mellitus with diabetic nephropathy; Z79.4 - nursing home (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 (14) Hypothyroidism Hypothyroidism type: acquired Qualified Code(s): E03.9 - Hypothyroidism, unspecified
[2023-08-26] MEDS: BUMETANIDE 1 MG TAB PO SCH (16:39)
[2023-08-26] MEDS ORDERED: cefTRIAXone SODIUM 2,000 MG in DEXTROSE 5 % MINI-B 50 ML IV SCH (20:00)
[2023-08-26] MEDS: RANOLAZINE 500 MG ER TAB PO SCH (20:46)
[2023-08-26] MEDS: HEPARIN SOD 5,000 UNIT/0.5 ML VIAL SQ SCH (20:48)
[2023-08-26] MEDS ORDERED: GABAPENTIN 100 MG CAP PO SCH (21:00)
[2023-08-26] MEDS ORDERED: MAGNESIUM OXIDE 400 MG TAB PO SCH (21:00)
[2023-08-27] MEDS: LEVOTHYROXINE SODIUM 75 MCG TABLET PO SCH (06:52)
[2023-08-27] MEDS: TOCOPHERYL, DL-ALPHA 400 UNITS 180 MG CAP PO SCH (08:29)
[2023-08-27] MEDS: HEPARIN SOD 5,000 UNIT/0.5 ML VIAL SQ SCH (08:29)
[2023-08-27] MEDS: CHOLECALCIFEROL 1,000 UNITS 25 MCG TAB PO SCH (08:29)
[2023-08-27] MEDS: PANTOprazole 40 MG TAB PO SCH (08:29)
[2023-08-27] MEDS: carvediloL 3.125 MG TAB PO SCH (08:29)
[2023-08-27] MEDS: BUMETANIDE 1 MG TAB PO SCH (08:29)
[2023-08-27] MEDS: RANOLAZINE 500 MG ER TAB PO SCH (08:29)
[2023-08-27] MEDS: SERTRALINE HCL 50 MG TABLET PO SCH (08:29)
[2023-08-27] MEDS: LANTUS PER UNIT CHARGE SQ SCH (08:40)
[2023-08-27] MEDS: INSULIN ASPART PER UNIT CHARGE SC SCH ×2 (08:40→12:47)
--- NOTE | 2023-08-27 13:08 | Discharge Summary ---
Date of Service August 27, 2023 Admission HPI Per Admitting Provider 82 yo female PMHx CAD s/p stenting on Eliquis and Brillinta, s/p TAVR, s/p ICD, HFrEF, PAF, HTN, HLD, T2DM, CKD 4, GERD, Hypothyroidism, Interstitial Lung Dx, Pulmonary HTN, COPD admitted after multiple episodes of hematuria on day of admission 08/25/23. On 08/24/23, pt developed urinary urgency without dysuria. Today, continued to have urgency and developed bright red blood in the urine. She was seen at urgent care where numerous clots were seen in her urine sample. She was then directed to go to the emergency room. When seen and examined she complains only of supra-pubic pain/tenderness described as 6/10. She reports that her urine color has improved since the episode of clots earlier in the day. She denies flank pain or dysuria. Denies IRVIN, CP, SOB, N/V/D, LE swelling. In ED: received 1L NSS, 1 dose rocephin Admission Exam Per Admitting Provider General: patient resting comfortably, NAD, non-toxic in appearance, AA&O x 4, an swers questions appropriately and follows commands. Skin: warm, dry, intact HEENT: NC/AT, anicteric sclera, conjunctiva without injection, moist mucus membranes, trachea midline, no thyromegaly, no JVD Heart: +S1/S2, regular, no m/r/g Lungs: equal air entry bilaterally, no rales/rhonchi/wheezes Abd: +BS, soft, NT/ND, no masses/organomegaly/ascites Ext: warm, no clubbing/cyanosis or edema Neuro: nonfocal, patient AA&O x 4, speech intact, no facial droop, moving all extremities on command. Principal Diagnosis Gross hematuria Discharge Exam General: Well-appearing, NAD Cardiovascular: RRR, + systolic murmur Pulmonary: CTAB, no W/R/R Abdomen: Soft, ND, mild TTP lower abdomen, no guarding. No CVA TTP Extremities: Moving all extremities, no pedal edema Integumentary: No suspicious rash or lesion on exposed skin Neurologic: AAOx3, no focal deficits Psychiatric: Appropriate mood/affect Discharge Data Allergies Allergy/AdvReac Type Severity Reaction Status Date / Time adhesive Allergy Intermediate REDNESS Verified 08/21/23 09:57 AND IRRITATION FROM PAIN PATCH, TAPE latex Allergy Intermediate ALLERGIC Verified 08/21/23 09:57 TO LATEX TAPE/RASH/ITCHING morphine Allergy Intermediate swelling Verified 08/21/23 09:57 nausea vomiting olmesartan Allergy Unknown UNKNOWN Verified 08/21/23 09:57 benzonatate AdvReac Intermediate confusion Verified 08/21/23 09:57 [From Giovanni Brennan] dulaglutide [From Trulicity] AdvReac Intermediate AFFECTS Verified 08/21/23 09:57 MUSCLES exenatide [From Byetta] AdvReac Intermediate Diarrhea Verified 08/21/23 09:57 ezetimibe AdvReac Intermediate MUSCLE Verified 08/21/23 09:57 ACHES glipizide AdvReac Intermediate Diarrhea Verified 08/21/23 09:57 glyburide AdvReac Intermediate Diarrhea Verified 08/21/23 09:57 lisinopril AdvReac Intermediate LIGHTHEADED Verified 08/21/23 09:57 AND DIZZY losartan AdvReac Intermediate dizziness Verified 08/21/23 09:57 metformin AdvReac Intermediate Diarrhea Verified 08/21/23 09:57 pioglitazone AdvReac Intermediate DIARRHEA Verified 08/21/23 09:57 NAUSEA sitagliptin [From Januvia] AdvReac Intermediate Diarrhea Verified 08/21/23 09:57 [id number]-[id number] Reductase AdvReac Intermediate myalgias Verified 08/21/23 09:57 Inhibitor and [Mamqmmq-Nlr-Dwe Reductase weakness Inhibitor] aspirin AdvReac Mild GI SYMPTOMS Verified 08/21/23 09:57 Consultations 08/25/23 20:16 ED Decision to Admit Stat 08/25/23 22:42 Consult Urology Routine Ordered Studies 08/25/23 16:38 CT Abd and Pelvis [CT abd pelvis wo con] Stat Hospital Course (1) Hematuria: (2) Hyperlipidemia: (3) Depression: (4) HFrEF (heart failure with reduced ejection fraction): (5) DM II (diabetes mellitus, type II), controlled: (6) CKD (chronic kidney disease) stage 4, GFR 15-29 ml/min: (7) PAF (paroxysmal atrial fibrillation): (8) Pulmonary hypertension: (9) Biventricular ICD (implantable cardioverter-defibrillator) in place: (10) CAD (coronary artery disease): (11) Chronic obstructive pulmonary disease, unspecified: (12) PAD (peripheral artery disease): (13) GERD (gastroesophageal reflux disease): (14) Hypothyroidism: Plan Plan 82 yo female PMHx CAD s/p stenting on Eliquis and Brilinta, s/p TAVR, s/p ICD, HFrEF, PAF, HTN, HLD, T2DM, CKD 4, GERD, Hypothyroidism, Interstitial Lung Dx, Pulmonary HTN, COPD, Depression admitted after multiple episodes of hematuria on day of admission 08/25/23 that has been improving since admission. #Hematuria UTI vs Interstitial bladder dx vs Malignancy Eliquis and Brilinta held inpatient and urine cleared --> resumed on discharged and cleared by urology Urology consult -plan on outpatient work-up with cystoscopy and imaging, to be arranged by urology Urine culture 08/25: 3 types of organisms present, all moderate counts, repeat collection recommended, no further identifications or sensitivities to follow Repeat culture obtained and pending but may be falsely negative given patient already on abx Does endorse UTI type symptoms. Treated with ceftriaxone and discharged on ciprofloxacin course (renally dosed) #CAD/HFrEF Carvedilol Digoxin Home Ranolazine resumed 08/26 Home Bumex resumed 08/26 #Paroxysmal A Fib Sinus paced rhythm #HTN Carvedilol #HLD Not on statin therapy #T2DM Lantus ISS #CKD 4 Cr 2.09 on admission, near baseline and improved #Depression Sertraline Trazodone #GERD Protonix Zofran PRN #Hypothyroidism Levothyroxine #ILD #Pulmonary HTN #COPD Total Time Total Time Spent Total Time Spent (In Minutes): 35 Discharge Plan Discharge Items Patient Disposition: Home - Self-Care Reason For Visit: GROSS HEMATURIA Discharge Diagnosis: Hematuria Activity: Resume your previous activity Non-emergency contact: Primary Care Provider Call non-emergency contact if: your symptoms worsen Follow-up/Referrals: Ebony Alvarenga DO [Primary Care Provider] - 09/06/23 9:30 am (Hospital Follow up appt., with Dr. Alvarenga scheduled for 09/06/23 @09:30am in [place] location. Please call your primary care doctor if you need to reschedule your appt. ) Diet: Carb Consistent or DM2 Addtl Attending Provider Instructions: You were admitted with blood in your urine. While you are in the hospital, your blood thinning medications were on hold, and your blood in your urine improved. You were seen by the urologist who recommends continuing the investigation of the blood in your urine on an outpatient basis. You can restart your blood thinning medications and continue will all your typical medications you do at home. In addition, it is possible a urinary tract infection contributed to some of your symptoms, but the urine culture was unclear. You were treated with an antibiotic in the hospital called ceftriaxone. You are recommended to take 1 week of an antibiotic called ciprofloxacin after you leave the hospitalthis was sent to your pharmacy. If you have not heard by Monday this week on scheduling a follow-up appointment with the urologist and with your primary care provider, contact your primary care provider office. Pending Studies at Discharge: Yes Studies:: Final urine culture 08/26/23 Stand-Alone Forms: My [facility] Medications and DC Order Prescriptions: New ciprofloxacin HCl 500 mg tablet 500 mg PO Q24H Qty: 7 0RF Continued cholecalciferol (vitamin D3) 25 mcg (1,000 unit) capsule 1,000 unit PO QAM trazodone 50 mg tablet 50 mg PO HS PRN (Reason: insomnia) Qty: 90 1RF (DME) insulin syringe-needle U-100 [BD SafetyGlide Insulin Syringe] 0.3 mL 31 gauge x 5/16" syringe See Rx Instructions .Route Qty: 100 3RF Rx Instructions: test three times daily Eliquis 2.5 mg tablet 2.5 mg PO BID Qty: 180 3RF levothyroxine 75 mcg tablet 75 mcg PO QAM Qty: 90 1RF pantoprazole [Protonix] 40 mg tablet,delayed release (DR/EC) 40 mg PO BID Qty: 180 1RF calcitriol [Rocaltrol] 0.25 mcg capsule 0.25 mcg PO 3XWK Qty: 12 1RF Rx Instructions: MONDAY/MONDAY/MONDAY/ IN THE AM magnesium oxide 400 mg magnesium capsule 400 mg PO QPM Qty: 90 0RF Hold Instructions: hypermagnesemia carvedilol 3.125 mg tablet 3.125 mg PO BID Qty: 180 3RF bumetanide 1 mg tablet 1 mg PO BID Qty: 180 3RF insulin asp prt-insulin aspart [Novolog Mix 70-30 U-100 Insuln] 100 unit/mL (70-30) solution 15 - 30 unit SUBCUT AMPM Qty: 30 5RF Rx Instructions: Per home sliding scale mupirocin 2 % ointment 1 applic topical BID Qty: 15 0RF digoxin 125 mcg (0.125 mg) tablet 125 mcg PO 3XWK Qty: 36 1RF Rx Instructions: MONDAY/MONDAY/MONDAY IN THE AM gabapentin 100 mg capsule 100 mg PO HS Qty: 90 1RF ondansetron HCl 4 mg tablet 4 mg PO Q8H PRN (Reason: nausea and vomiting) Qty: 30 0RF Brilinta 90 mg tablet 90 mg PO BID Qty: 180 3RF (DME) FreeStyle Rossy 14 Day Sensor Kit See Rx Instructions .Route Qty: 1 5RF Rx Instructions: Testing BS 4-5 times per day sertraline 50 mg tablet 50 mg PO DAILY Qty: 90 1RF (DME) FreeStyle Rossy 14 Day [place]oni Misc See Rx Instructions .Route Qty: 6 1RF Rx Instructions: Testing BS 4-5 times per day vitamin E 400 unit capsule 400 unit PO QAM garlic 1,000 mg capsule 1,000 mg PO DAILY ranolazine 500 mg Tablet Extended Release 12 Hr 500 mg PO BID senna 8.6 mg capsule 8.6 mg PO DAILY PRN (Reason: constipation) Qty: 10 0RF polyethylene glycol 3350 [Miralax] 17 gram/dose Powder 17 g PO TID Qty: 119 0RF potassium gluconate 595 mg (99 mg) tablet 595 mg PO DAILY PRN (Reason: With Bumex) Rx Instructions: Take 1 tablet if you take a Bumex dose Discharge Orders: Discharge Order (Routine); Ordered 08/27/23 Ordered By: Abbey Varghese/Other Patient Handouts: Managing Type 2 Diabetes, What is Hematuria?, Urinary Tract Infections in Women Admission Data Admit Date/Time: 08/25/23 21:32 Attending Provider: Abbey Hernandez Admit Provider: Eric Arana Primary Care Provider: Ebony Alvarenga Other Providers: Fracisco Dan; Darek Welsh Other Interventions: Discharge Summary Assessment (RN) Last Done: 08/27/23 12:53 Coding Level of Care Code 56469 INP/OBS DISCH >30 MIN Diagnoses Hematuria R31.9 Hyperlipidemia E78.5 Depression F32.A HFrEF (heart failure with reduced ejection fraction) I50.20 Controlled type 2 diabetes mellitus with diabetic nephropathy, with long-term cu rrent use of insulin E11.21; Z79.4 Diabetes mellitus outside cutter insulin use: with prison use Diabetes mellitus complication status: with kidney complications Diabetes mellitus complication detail: with nephropathy CKD (chronic kidney disease) stage 4, GFR 15-29 ml/min N18.4 PAF (paroxysmal atrial fibrillation) I48.0 Pulmonary hypertension I27.20 Biventricular ICD (implantable cardioverter-defibrillator) in place Z95.810 CAD (coronary artery disease) I25.10 Chronic obstructive pulmonary disease, unspecified J44.9 PAD (peripheral artery disease) I73.9 GERD (gastroesophageal reflux disease) K21.9 Acquired hypothyroidism E03.9 Hypothyroidism type: acquired
[2023-08-28] MEDS ORDERED: DIGOXIN 0.125 MG TAB PO SCH (16:00)
== END 2023-08-27 13:30 | disposition home or self-care (01) ==
LOC: ED 13:27 → 2N 13:27 → SUATTDRO 21:32 → 2N 22:29

== ENCOUNTER 2023-10-31 21:44 | Inpatient (IN) ==
[2023-10-31] MEDS ORDERED: HYDROCODONE/ACETAMOPHEN 5/325MG TAB PO ONE (22:04)
--- NOTE | 2023-10-31 22:47 | Emergency Department Note ---
Impression & Plan Acute pain of right knee, Chronic anticoagulation, Ambulatory dysfunction ED Provider Note Provider: Horacio Ramos MD DATE OF SERVICE: 10/31/2023 CHIEF COMPLAINT: Right knee pain HISTORY OF PRESENT ILLNESS: Patient is a 83-year-old female past medical history of heart failure, type 2 diabetes, CKD, restrictive lung disease, paroxysmal atrial fibrillation on Eliquis, breast cancer, TAVR, AICD, CAD, COPD, PAD among others presenting here via ambulance from her home. Lives by herself. States single level. Reports over the past 4 days since Monday has had increasing pain in the right knee. Worse with walking or putting weight on it. States that sharp pain around the right knee in the front of the right knee. Denies any falls or trauma here. States has had issues with the knees in the past and follows with [facility] orthopedics. Has had injections in these previously. Denies significant new hip pain or leg pain. States did call as symptoms started over the last several days and has follow-up with [facility] orthopedics tomorrow. This evening was taking her disc from dinner to into the kitchen with her walker that she normally uses and pain became quite bad in the right leg and she had to sit down. Was unable to get up. Again denies falling. States it feels somewhat swollen. Has been using Tylenol. Has issues with dizziness and some pain medicines in the past and has had her gabapentin that had been helping reduce somewhat recently. PAST MEDICAL HISTORY: As noted above MEDICATIONS: Reviewed extensive home medication list SOCIAL HISTORY: Lives by herself PHYSICAL EXAM: GENERAL: alert and oriented in no acute distress on stretcher Head: normocephalic and atraumatic EYES: No injection, discharge or icterus. NECK: Trachea midline. ENT: Mucous membranes pink and moist. Pharynx without erythema or exudate. LUNGS: Airway patent. No retractions. Breath sounds clear with good air entry bilaterally. HEART: Regular rate and rhythm. No chest wall tenderness ABDOMEN: Soft and non-tender, without guarding or rebound. SKIN: Acyanotic, warm, dry, without rashes EXTREMITIES: 2+ edema of the right lower leg with 1+ edema of the left leg. No erythema with some slight swelling of the right knee and some diffuse tenderness. Slight 2cm x 3cm contusion of the proximal medial left leg just below the knee. No obvious deformity on exam. Chronic brown discoloration of the right lower leg. NEUROLOGICAL: No focal deficits. No aphasia. No facial droop or slurred speech. Normal strength and tone in the extremities. Sensation to gross touch normal. Patient's laboratory studies and imaging reviewed. 2 view right tib-fib x-ray: No evidence of fracture 3 view right knee x-ray: No evidence of dislocation or fracture. Some arthritic joint findings. Differential includes Fracture, subluxation, dislocation, contusion, ligamentous injury, neurovascular, compartment syndrome, rhabdomyolysis, as well as other pathologies. IMPRESSION/MEDICAL DECISION MAKING: Patient without significant trauma but now increased pain and maybe a little bit swelling of the right knee. She is anticoagulated. This lowers my suspicion for VTE/DVT. Cannot exclude however there may be some hemarthrosis. Does have history of arthritis here. Denies any recent injections in the right knee in the last month or so. No fevers reported. No wounds reported. Did obtain x- ray to look for any significant new bony abnormality but does have a history of osteoarthritis here. Doubt this represents gout and she does not have a history of such. Hurts with movement as well as putting weight on it. Given 1/2 tablet of hydrocodone as she has tolerated this in the past although is sensitive to medications. While she does have follow-up closely with orthopedics tomorrow, obviously if she can ambulate and lives at home this is a problem. Normally uses a walker but even with this it was too much for this evening. Reassessment after an hour after receiving half tablet of Halma, patient states she feels like her vision may be a little weird and little bit foggy from the medication but it has not significantly helped her right knee pain. Will give her evening dose of gabapentin which she has not taken yet. Patient states feels very self and is unsure how she be able to function at home or even ambulate to the bathroom. States she has been weighing her self due to issues getting around with her leg/right knee. Given her ambulatory dysfunction and discussion with her she wishes to stay for observation. Hospitalist team contacted. Basic labs were ordered as she will be staying. Chronic CKD. Some anemia but not far off baseline. No significant leukocytosis at this time. Normal digoxin therapeutic. Negative COVID. DIAGNOSIS: Right knee pain, osteo arthritis, CKD, ambulatory dysfunction, long-term anticoagulation DISPOSITION: Hospitalist will evaluate Patient was agreeable with this plan. Past Med/Surg History Medical History Osteoarthritis Orthostasis Hyperlipidemia Acute kidney injury superimposed on chronic kidney disease Non-ST elevation VT (NSTEMI) Depression Nausea and vomiting after administration of anesthetic agent PAF (paroxysmal atrial fibrillation) History of CVA (cerebrovascular accident) Breast cancer, right Subclavian artery stenosis Rheumatoid arthritis Chronic kidney disease Diabetes mellitus, type 2 SOB (shortness of breath) on exertion DVT (deep venous thrombosis) Ischemic cardiomyopathy Insomnia Biventricular ICD (implantable cardioverter-defibrillator) in place (04/30/20) Antiplatelet or antithrombotic long-term use Secondary hyperparathyroidism of renal origin Anemia due to chronic kidney disease Chronic obstructive pulmonary disease, unspecified CAD (coronary artery disease) Aortic stenosis, severe PAD (peripheral artery disease) Spondylosis Pulmonary hypertension NSTEMI (non-ST elevated myocardial infarction) Chronic combined systolic and diastolic CHF (congestive heart failure) GERD (gastroesophageal reflux disease) Hypothyroidism Left bundle branch block Bilateral carotid artery stenosis Surgical History S/P AV hiren ablation (06/30/22) H/O heart artery stent H/O colonoscopy History of left-sided carotid endarterectomy (09/27/21) Status post partial mastectomy of right breast (09/17/21) History of cardiac cath S/P coronary artery stent placement (10/2018) S/P coronary artery stent placement (10/2017) S/P carotid endarterectomy S/P thoracentesis (03/2020) S/P angioplasty (02/03/21) 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) History of oophorectomy History of hysterectomy History of cholecystectomy H/O: section History of cataract surgery History of appendectomy Family History Daughter Coronary heart disease Diabetes Mother Diabetes Family history of hypercholesterolemia Myocardial infarction Hypertension Stroke Brother Colorectal cancer Father Accident Brother Diabetes Family/Other Myocardial infarction Son Coronary heart disease Hypertension Other Pacemaker Denies family history of Ovarian cancer Prostate cancer Breast cancer Social History Smoking Status: Never smoker Second Hand Exposure: No; Do You Dip or Chew Tobacco: No; Hx Alcohol Use: No Hx Substance Use: No Preferred Language: Chinese Communication Ability: Effective Visual Impairment: No Limitations Hearing Ability: Hard of Hearing Spooling Supervisor Required: No Beliefs That Will Affect Care: None marital status: / marital status details: passed 2000 Current Living Situation: Alone current occupational status: retired 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 [employer] How many Children do You have: 2 Other Information That Helps Us Care for You: No Feels Safe at Home: Yes Safety Concerns: Feels Safe At This Time Diet: regular caffeine: Yes (1 cup/day) during the past year weight has: remained stable Dental Care, Regularly: No Physical Activity Frequency: Daily Seatbelt Use: always Assistive Devices: Walker Allergies Allergies Allergy/AdvReac Type Severity Reaction Status Date / Time adhesive Allergy Intermediate REDNESS Verified 10/23/23 11:28 AND IRRITATION FROM PAIN PATCH, TAPE latex Allergy Intermediate ALLERGIC Verified 10/23/23 11:28 TO LATEX TAPE/RASH/ITCHING morphine Allergy Intermediate swelling Verified 10/23/23 11:28 nausea vomiting olmesartan Allergy Unknown UNKNOWN Verified 10/23/23 11:28 benzonatate AdvReac Intermediate confusion Verified 10/23/23 11:28 [From Giovanni Brennan] dulaglutide [From Trulicity] AdvReac Intermediate AFFECTS Verified 10/23/23 11:28 MUSCLES exenatide [From Byetta] AdvReac Intermediate Diarrhea Verified 10/23/23 11:28 ezetimibe AdvReac Intermediate MUSCLE Verified 10/23/23 11:28 ACHES glipizide AdvReac Intermediate Diarrhea Verified 10/23/23 11:28 glyburide AdvReac Intermediate Diarrhea Verified 10/23/23 11:28 lisinopril AdvReac Intermediate LIGHTHEADED Verified 10/23/23 11:28 AND DIZZY losartan AdvReac Intermediate dizziness Verified 10/23/23 11:28 metformin AdvReac Intermediate Diarrhea Verified 10/23/23 11:28 pioglitazone AdvReac Intermediate DIARRHEA Verified 10/23/23 11:28 NAUSEA sitagliptin [From Januvia] AdvReac Intermediate Diarrhea Verified 10/23/23 11:28 Rpcoerh-VIC-HdP Reductase AdvReac Intermediate myalgias Verified 10/23/23 11:28 Inhibitor and [Fxsoeje-Kgw-Qrq Reductase weakness Inhibitor] aspirin AdvReac Mild GI SYMPTOMS Verified 10/23/23 11:28 Home Meds Home Medications Medication Instructions Recorded Confirmed vitamin E 268 mg (400 unit) capsule 400 unit PO QAM 03/29/20 10/31/23 cholecalciferol (vitamin D3) 25 1,000 unit PO QAM 05/17/21 10/31/23 mcg (1,000 unit) capsule ranolazine 500 mg tablet,extended 500 mg PO BID 12/18/22 10/31/23 release,12 hr garlic 1,000 mg capsule 1,000 mg PO DAILY 05/29/23 10/31/23 potassium gluconate 595 mg (99 mg) 595 mg PO DAILY PRN With Bumex 08/25/23 10/31/23 tablet Previous Rx's Medication Instructions Recorded magnesium oxide 400 mg PO QPM #90 caps 04/01/19 trazodone 50 mg tablet 50 mg PO HS PRN insomnia #90 tabs 06/23/22 insulin aspar prt-insulin aspart 15 - 30 unit (0.15 - 0.3 mL) 11/28/22 100 unit/mL (70-30) subcutaneous subcut AMPM #30 mL soln (Novolog Mix 70-30 U-100 Insuln) polyethylene glycol 3350 17 17 g PO TID #119 grams 12/23/22 gram/dose oral powder (Miralax) sennosides 8.6 mg capsule (senna) 8.6 mg PO DAILY PRN constipation 12/23/22 #10 caps carvedilol 3.125 mg tablet 3.125 mg PO BID #180 tabs 04/27/23 pantoprazole 40 mg tablet,delayed 40 mg PO BID #180 tabs 06/26/23 release (Protonix) digoxin 125 mcg (0.125 mg) tablet 125 mcg PO 3XWK #36 tabs 07/24/23 flash glucose scanning reader #6 ea 07/24/23 (FreeStyle Rossy 14 Day Farber) sertraline 50 mg tablet 50 mg PO DAILY #90 tabs 07/24/23 ticagrelor 90 mg tablet (Brilinta) 90 mg PO BID #180 tabs 07/24/23 flash glucose sensor (FreeStyle #1 ea 08/30/23 Rossy 14 Day Sensor kit) fluticasone propionate 50 2 spray intranasal DAILY #16 grams 09/06/23 mcg/actuation nasal spray,suspension (Flonase Allergy Relief) bumetanide 1 mg tablet 1 mg PO BID Shortness of 09/11/23 breath/weight gain #180 tabs mirabegron 25 mg tablet,extended 25 mg PO DAILY #30 tabs 09/18/23 release 24 hr gabapentin 100 mg capsule 300 mg (3 x 100 mg) PO HS #90 caps 10/23/23 levothyroxine 75 mcg tablet 75 mcg PO QAM #90 tabs 10/27/23 ondansetron HCl 4 mg tablet 4 mg PO Q8H PRN nausea and 10/27/23 vomiting #30 tabs apixaban 2.5 mg tablet (Eliquis) 2.5 mg PO BID #180 tabs 10/30/23 calcitriol 0.25 mcg capsule 0.25 mcg PO 3XWK #12 caps 10/30/23 (Rocaltrol) insulin syringe-needle U-100 0.3 #100 ea 10/30/23 mL 31 gauge x 5/16" Results & Data (ED) Vital Signs Vital Signs - 24 hr 10/31/23 21:48 10/31/23 23:25 11/01/23 00:46 Temperature 36.9 C Temperature Source Oral Pulse Rate 76 Pulse Rate [Finger] 70 72 Respiratory Rate 22 18 20 Respiratory Effort / Characteristics Non-Labored Spontaneous Respiratory Depth Normal Respiratory Pattern Regular Blood Pressure 144/77 H Blood Pressure [Right Arm] 131/77 Blood Pressure Mean 99 Blood Pressure Mean [Right Arm] 95 Pulse Oximetry 96 93 95 Oxygen Delivery Method Room Air Room Air Room Air Sepsis Recent Fever Within 48 Hours No Sepsis New/Unexplained Change in Mental Status No Sepsis Action Taken by Nursing No Action Required Laboratory Data 11/01/23 00:15 11/01/23 00:15 Lab Results 10/31/23 11/01/23 11/01/23 Range/Units 21:52 00:15 00:18 WBC 10.68 (4.8-10.8) K/ul RBC 3.54 L (4.20-5.40) M/uL Hgb 10.7 L (12.0-16.0) g/dl Hct 34.0 L (37.0-47.0) % MCV 96.0 (80.0-100.0) fL MCH 30.2 (25.0-34.0) pg MCHC 31.5 L (32.0-36.0) g/dL RDW Std Deviation 50.6 H (36.4-46.3) fL RDW Coeff of Manuela 14.3 (11.5-14.5) % Plt Count 237 (130-400) K/uL MPV 10.7 (9.4-12.4) fL Immature Gran % (Auto) 0.4 % Neut % (Auto) 73.0 % Lymph % (Auto) 15.4 % Coffee % (Auto) 8.2 % Eos % (Auto) 2.5 % Baso % (Auto) 0.5 % Neut # (Auto) 7.80 H (1.40-6.50) K/uL Lymph # (Auto) 1.64 (1.20-3.40) K/uL Coffee # (Auto) 0.88 H (0.11-0.59) K/uL Eos # (Auto) 0.27 (0.00-0.50) K/uL Baso # (Auto) 0.05 (0.00-0.20) K/uL Immature Gran # (Auto) 0.04 (0.01-0.20) K/uL PT 10.9 (9.0-12.0) Seconds INR 1.0 (0.9-1.1) Sodium 136 (136-145) mmol/L Potassium 4.8 (3.5-5.1) mmol/L Chloride 99 (98-107) mmol/L Carbon Dioxide 29 (21-32) mmol/L Anion Gap 8 (3-11) BUN 41 H (6-23) mg/dl Creatinine 2.10 H (0.6-1.2) mg/dl Est Cr Clr Drug Dosing 22.2 ml/min Est GFR ( Amer) 24.4 ml/min Est GFR (Non-Af Amer) 21.1 ml/min BUN/Creatinine Ratio 19.5 (10-20) Glucose 136 H (70-99(Fasting)) mg/dl POC Glucose 140 H (70-99) mg/dl Calcium 9.0 (8.6-10.3) mg/dl Total Bilirubin 0.3 (0.2-1.0) mg/dl AST 18 (13-39) U/L ALT 16 (7-52) U/L Alkaline Phosphatase 107 H (34-104) U/L Total Protein 7.0 (6.0-8.3) gm/dl Albumin 3.5 (3.4-5.0) gm/dl Globulin 3.5 (2.5-4.0) gm/dl Albumin/Globulin Ratio 1.0 (0.9-2) Digoxin 1.0 (0.8-2.0) ng/ml SARS-CoV-2, RNA, NAAT NEGATIVE (NEGATIVE) Administered Medications Acetaminophen (Acetaminophen 500 Mg Tab) 1,000 mg PO Q8H ANDREW Stop: 12/01/23 00:59 Last Admin: 11/01/23 01:21 Dose: 1,000 mg Documented By: ALN Discontinued Medications Acetaminophen (Acetaminophen 325 Mg Tab) 650 mg PO Q6H ANDREW Stop: 12/01/23 00:44 Last Admin: 11/01/23 01:21 Dose: Not Given Documented By: LAN Hydrocodone Bitart/Acetaminophen (Hydrocodone/Acetamophen 5/325mg Tab) 0.5 tab PO ONCE ONE Stop: 10/31/23 22:05 Last Admin: 10/31/23 22:14 Dose: 0.5 tab Documented By: ALEC Gabapentin (Gabapentin 300 Mg Cap) 300 mg PO NOW STA Stop: 10/31/23 23:35 Last Admin: 11/01/23 00:43 Dose: 300 mg Documented By: LAN Discharge Plan Visit Data Chief Complaint: Knee Injury/Pain Stated Complaint: R Knee Pain ED Provider: Horacio Ramos Discharge Problem: Acute pain of right knee, Chronic anticoagulation, Ambulatory dysfunction Patient Disposition: Being Evaluated by Hospitalist Forms Stand Alone Forms: My [facility] Prescriptions Prescriptions: No Action cholecalciferol (vitamin D3) 25 mcg (1,000 unit) capsule 1,000 unit PO QAM trazodone 50 mg tablet 50 mg PO HS PRN (Reason: insomnia) Qty: 90 1RF pantoprazole [Protonix] 40 mg tablet,delayed release (DR/EC) 40 mg PO BID Qty: 180 1RF (DME) FreeStyle Rossy 14 Day Sensor Kit See Rx Instructions .Route Qty: 1 5RF Rx Instructions: Testing BS 4-5 times per day bumetanide 1 mg tablet 1 mg PO BID Qty: 180 3RF (DME) insulin syringe-needle U-100 0.3 mL 31 gauge x 5/16" syringe See Rx Instructions .Route Qty: 100 3RF Rx Instructions: test three times daily calcitriol [Rocaltrol] 0.25 mcg capsule 0.25 mcg PO 3XWK Qty: 12 1RF Rx Instructions: MONDAY/MONDAY/MONDAY/ IN THE AM Eliquis 2.5 mg tablet 2.5 mg PO BID Qty: 180 3RF magnesium oxide 400 mg magnesium capsule 400 mg PO QPM Qty: 90 0RF Hold Instructions: hypermagnesemia carvedilol 3.125 mg tablet 3.125 mg PO BID Qty: 180 3RF fluticasone propionate [Flonase Allergy Relief] 50 mcg/actuation spray,suspension 2 spray intranasal DAILY Qty: 16 3RF mirabegron 25 mg tablet extended release 24 hr 25 mg PO DAILY Qty: 30 2RF gabapentin 100 mg capsule 300 mg PO HS Qty: 90 1RF levothyroxine 75 mcg tablet 75 mcg PO QAM Qty: 90 1RF ondansetron HCl 4 mg tablet 4 mg PO Q8H PRN (Reason: nausea and vomiting) Qty: 30 0RF insulin asp prt-insulin aspart [Novolog Mix 70-30 U-100 Insuln] 100 unit/mL (70-30) solution 15 - 30 unit SUBCUT AMPM Qty: 30 5RF Rx Instructions: Per home sliding scale digoxin 125 mcg (0.125 mg) tablet 125 mcg PO 3XWK Qty: 36 1RF Rx Instructions: MONDAY/MONDAY/MONDAY IN THE AM Brilinta 90 mg tablet 90 mg PO BID Qty: 180 3RF sertraline 50 mg tablet 50 mg PO DAILY Qty: 90 1RF (DME) FreeStyle Rossy 14 Day Farber Misc See Rx Instructions .Route Qty: 6 1RF Rx Instructions: Testing BS 4-5 times per day vitamin E 400 unit capsule 400 unit PO QAM garlic 1,000 mg capsule 1,000 mg PO DAILY ranolazine 500 mg Tablet Extended Release 12 Hr 500 mg PO BID senna 8.6 mg capsule 8.6 mg PO DAILY PRN (Reason: constipation) Qty: 10 0RF polyethylene glycol 3350 [Miralax] 17 gram/dose Powder 17 g PO TID Qty: 119 0RF potassium gluconate 595 mg (99 mg) tablet 595 mg PO DAILY PRN (Reason: With Bumex) Rx Instructions: Take 1 tablet if you take a Bumex dose Referrals Referrals: Ebony Alvarenga DO [Primary Care Provider] -
[2023-10-31] MEDS ORDERED: GABAPENTIN 300 MG CAP PO STA (23:34)
--- NOTE | 2023-11-01 00:02 | History & Physical Report ---
Date of Service November 01, 2023 Assessment & Plan (1) Ambulatory dysfunction: Plan: Pt is a 83 yo female with PMH of osteoarthritis, HLD, NSTEMI, CVA, paroxysmal afib, CKD, RA, DVT (2019), biventricular ICD in place, aortic stenosis s/p TAVR, PAD s/p stenting, HFpEF/HPrEF, and bilateral carotid artery stenosis presenting due to right knee pain and inability to ambulate at home. Acute on chronic right knee pain - pt follows outpatient with [facility]; she had an appt scheduled for tomorrow - knee and tib/fib xrays WNL - suspect worsening of osteoarthritis mostly contributing to pain; ?ligamentous injury as pt feels her knee is unsteady- will defer further imaging until evaluation by ortho - s/p half tab of low dose norco in ER (which caused her to become "foggy") - pain control: tylenol 1000mg q8hr scheduled, avoid NSAIDs d/t CKD - consider low dose opioid for breakthrough pain if necessary; however, pt extremely sensitive to meds (including opioids) - ortho consulted for possibility of injection - PT/OT consulted HFpEF - last echo 07/2023 showed EF 40-45% - no acute exacerbation - continue home bumetanide 1 mg BID CKD - Cr 2.10 upon admission; baseline appears ~1.8-2.1 - avoid NSAIDs - trend BMP Paroxysmal afib - continue home digoxin, carvedilol, and eliquis Hx of DVT - continue eliquis CAD, PAD - continue home medications Aortic stenosis - s/p TAVR - continue medications as above DM - last A1c 06/2023 7.1% - will cover with SSI as pt only on short acting regimen at home - consider long acting coverage if necessary Hypothyroidism - continue home levothyroxine 75 mcg daily Diet: heart healthy VTE ppx: eliquis 2.5 mg BID Code: full; pt would like CPR/intubation in the acute setting, but makes note that she would not like to be on a machine for a "prolonged period of time"- pt states she has a living will Dispo: med/surg (2) Acute pain of right knee: (3) Osteoarthritis: (4) Hyperlipidemia: (5) HFrEF (heart failure with reduced ejection fraction): (6) DM II (diabetes mellitus, type II), controlled: (7) CKD (chronic kidney disease) stage 4, GFR 15-29 ml/min: (8) S/P carotid endarterectomy: (9) PAF (paroxysmal atrial fibrillation): (10) Biventricular ICD (implantable cardioverter-defibrillator) in place: (11) S/P TAVR (transcatheter aortic valve replacement): (12) CAD (coronary artery disease): (13) Hypothyroidism: History of Present Illness Chief Complaint: right knee pain Primary Care Provider: Ebony Alvarenga DO Pt is a 83 yo female with PMH of osteoarthritis, HLD, NSTEMI, CVA, paroxysmal afib, CKD, RA, DVT (2019), biventricular ICD in place, aortic stenosis s/p TAVR, PAD s/p stenting, HFpEF/HPrEF, and bilateral carotid artery stenosis presenting due to right knee pain and inability to ambulate at home. Pt states that she has had a long hx of right knee pain. She follows with [facility] for her radicular back pain and right knee pain. She has gotten injections in both her back and bilateral knees in the past. She states her pain started on Monday while at the grocery store. She denies any injury or inciting event. Since then, it has continued to worsen to the point that she cannot bear weight w/o causing extreme pain and having her knee buckle from underneath her. She lives alone and is afraid of falling due to her knee pain. She was due to see orthopedics tomorrow but came to the ER as she could not tolerate the pain. In the ER, she was hemodynamically stable. Her lab work was significant for no leukocytosis, Hgb 10.7, and platelets 237, and Cr 2.10. PT/INR and digoxin level were pending. Her right knee and tibia/fibula xrays (read by myself) were w/o acute fracture. She was given half a tab of 5/325 Ray which made her a little foggy. Her nighttime gabapentin dose was also given. Allergies Allergy/AdvReac Type Severity Reaction Status Date / Time adhesive Allergy Intermediate REDNESS Verified 10/23/23 11:28 AND IRRITATION FROM PAIN PATCH, TAPE latex Allergy Intermediate ALLERGIC Verified 10/23/23 11:28 TO LATEX TAPE/RASH/ITCHING morphine Allergy Intermediate swelling Verified 10/23/23 11:28 nausea vomiting olmesartan Allergy Unknown UNKNOWN Verified 10/23/23 11:28 benzonatate AdvReac Intermediate confusion Verified 10/23/23 11:28 [From Giovanni Brennan] dulaglutide [From Trulicity] AdvReac Intermediate AFFECTS Verified 10/23/23 11:28 MUSCLES exenatide [From Byetta] AdvReac Intermediate Diarrhea Verified 10/23/23 11:28 ezetimibe AdvReac Intermediate MUSCLE Verified 10/23/23 11:28 ACHES glipizide AdvReac Intermediate Diarrhea Verified 10/23/23 11:28 glyburide AdvReac Intermediate Diarrhea Verified 10/23/23 11:28 lisinopril AdvReac Intermediate LIGHTHEADED Verified 10/23/23 11:28 AND DIZZY losartan AdvReac Intermediate dizziness Verified 10/23/23 11:28 metformin AdvReac Intermediate Diarrhea Verified 10/23/23 11:28 pioglitazone AdvReac Intermediate DIARRHEA Verified 10/23/23 11:28 NAUSEA sitagliptin [From Januvia] AdvReac Intermediate Diarrhea Verified 10/23/23 11:28 Brbnlwo-PGU-KxI Reductase AdvReac Intermediate myalgias Verified 10/23/23 11:28 Inhibitor and [Vkykyot-Jey-Uqu Reductase weakness Inhibitor] aspirin AdvReac Mild GI SYMPTOMS Verified 10/23/23 11:28 Home Medications Medication Instructions Recorded Confirmed Type magnesium oxide 400 mg PO QPM #90 caps 04/01/19 10/31/23 Rx vitamin E 268 mg (400 unit) capsule 400 unit PO QAM 03/29/20 10/31/23 History cholecalciferol (vitamin D3) 25 1,000 unit PO QAM 05/17/21 10/31/23 History mcg (1,000 unit) capsule trazodone 50 mg tablet 50 mg PO HS PRN insomnia #90 tabs 06/23/22 10/31/23 Rx insulin aspar prt-insulin aspart 15 - 30 unit (0.15 - 0.3 mL) 11/28/22 10/31/23 Rx 100 unit/mL (70-30) subcutaneous subcut AMPM #30 mL soln (Novolog Mix 70-30 U-100 Insuln) ranolazine 500 mg tablet,extended 500 mg PO BID 12/18/22 10/31/23 History release,12 hr polyethylene glycol 3350 17 17 g PO TID #119 grams 12/23/22 10/31/23 Rx gram/dose oral powder (Miralax) sennosides 8.6 mg capsule (senna) 8.6 mg PO DAILY PRN constipation 12/23/22 10/31/23 Rx #10 caps carvedilol 3.125 mg tablet 3.125 mg PO BID #180 tabs 04/27/23 10/31/23 Rx garlic 1,000 mg capsule 1,000 mg PO DAILY 05/29/23 10/31/23 History pantoprazole 40 mg tablet,delayed 40 mg PO BID #180 tabs 06/26/23 10/31/23 Rx release (Protonix) digoxin 125 mcg (0.125 mg) tablet 125 mcg PO 3XWK #36 tabs 07/24/23 10/31/23 Rx flash glucose scanning reader #6 ea 07/24/23 10/31/23 Rx (FreeStyle Rossy 14 Day [place]) sertraline 50 mg tablet 50 mg PO DAILY #90 tabs 07/24/23 10/31/23 Rx ticagrelor 90 mg tablet (Brilinta) 90 mg PO BID #180 tabs 07/24/23 10/31/23 Rx potassium gluconate 595 mg (99 mg) 595 mg PO DAILY PRN With Bumex 08/25/23 10/31/23 History tablet flash glucose sensor (Snackryle #1 ea 08/30/23 10/31/23 Rx Rossy 14 Day Sensor kit) fluticasone propionate 50 2 spray intranasal DAILY #16 grams 09/06/23 10/31/23 Rx mcg/actuation nasal spray,suspension (Flonase Allergy Relief) bumetanide 1 mg tablet 1 mg PO BID Shortness of 09/11/23 10/31/23 Rx breath/weight gain #180 tabs mirabegron 25 mg tablet,extended 25 mg PO DAILY #30 tabs 09/18/23 10/31/23 Rx release 24 hr gabapentin 100 mg capsule 300 mg (3 x 100 mg) PO HS #90 caps 10/23/23 10/31/23 Rx levothyroxine 75 mcg tablet 75 mcg PO QAM #90 tabs 10/27/23 10/31/23 Rx ondansetron HCl 4 mg tablet 4 mg PO Q8H PRN nausea and 10/27/23 10/31/23 Rx vomiting #30 tabs apixaban 2.5 mg tablet (Eliquis) 2.5 mg PO BID #180 tabs 10/30/23 10/31/23 Rx calcitriol 0.25 mcg capsule 0.25 mcg PO 3XWK #12 caps 10/30/23 10/31/23 Rx (Rocaltrol) insulin syringe-needle U-100 0.3 #100 ea 10/30/23 10/31/23 Rx mL 31 gauge x 02/28" Past Med/Surg History Medical History Osteoarthritis Orthostasis Hyperlipidemia Acute kidney injury superimposed on chronic kidney disease Non-ST elevation [place] (NSTEMI) Depression Nausea and vomiting after administration of anesthetic agent PAF (paroxysmal atrial fibrillation) History of CVA (cerebrovascular accident) Breast cancer, right Subclavian artery stenosis Rheumatoid arthritis Chronic kidney disease Diabetes mellitus, type 2 SOB (shortness of breath) on exertion DVT (deep venous thrombosis) Ischemic cardiomyopathy Insomnia Biventricular ICD (implantable cardioverter-defibrillator) in place (04/30/20) Antiplatelet or antithrombotic long-term use Secondary hyperparathyroidism of renal origin Anemia due to chronic kidney disease Chronic obstructive pulmonary disease, unspecified CAD (coronary artery disease) Aortic stenosis, severe PAD (peripheral artery disease) Spondylosis Pulmonary hypertension NSTEMI (non-ST elevated myocardial infarction) Chronic combined systolic and diastolic CHF (congestive heart failure) GERD (gastroesophageal reflux disease) Hypothyroidism Left bundle branch block Bilateral carotid artery stenosis Surgical History S/P AV hiren ablation (06/30/22) H/O heart artery stent H/O colonoscopy History of left-sided carotid endarterectomy (09/27/21) Status post partial mastectomy of right breast (09/17/21) History of cardiac cath S/P coronary artery stent placement (10/2018) S/P coronary artery stent placement (10/2017) S/P carotid endarterectomy S/P thoracentesis (03/2020) S/P angioplasty (02/03/21) 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) History of oophorectomy History of hysterectomy History of cholecystectomy H/O: section History of cataract surgery History of appendectomy Family History Daughter Coronary heart disease Diabetes Mother Diabetes Family history of hypercholesterolemia Myocardial infarction Hypertension Stroke Brother Colorectal cancer Father Accident Brother Diabetes Family/Other Myocardial infarction Son Coronary heart disease Hypertension Other Pacemaker Denies family history of Ovarian cancer Prostate cancer Breast cancer Social History Smoking Status: Never smoker Second Hand Exposure: No; Do You Dip or Chew Tobacco: No; Hx Alcohol Use: No Hx Substance Use: No Preferred Language: Bahraini Communication Ability: Effective Visual Impairment: No Limitations Hearing Ability: Hard of Hearing Production Machine Shop Supervisor Required: No Beliefs That Will Affect Care: None marital status: / marital status details: passed 2000 Current Living Situation: Alone current occupational status: retired 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 How many Children do You have: 2 Other Information That Helps Us Care for You: No Feels Safe at Home: Yes Safety Concerns: Feels Safe At This Time Diet: regular caffeine: Yes (1 cup/day) during the past year weight has: remained stable Dental Care, Regularly: No Physical Activity Frequency: Daily Seatbelt Use: always Assistive Devices: Cane and Walker Review of Systems Review of Systems: As per HPI Physical Exam Physical Exam: Constitutional: well appearing, no acute distress HEENT: normocephalic, no conjunctival injection CV: RRR, 3/6 systolic murmur, trace LE edema Respiratory: CTA bilaterally. No rhonchi, wheezes, or crackles. No increased work of breathing GI: soft, nondistended, nontender, + bowel sounds MSK: no gross deformities noted; pain upon palpation of anterior and posterior right knee. Minimal swelling noted. Increased pain with knee flexion. Skin: warm, dry, multiple bruises noted on bilateral LE. Chronic stasis dermatitis noted. Neuro: alert, oriented, no FND noted Psych: mood and affect congruent Results & Data Results & Data Vital Signs (Past 12 Hours) Vital Signs Temp Pulse Pulse Resp BP Pulse Ox O2 Del Method 10/31/23 23:25 70 18 93 Room Air 10/31/23 21:48 36.9 C 76 22 144/77 H 96 Room Air Supervising Physician Co-Signing Physician Notes Patient seen and examined, chart reviewed, case discussed with Dr. Schwarz and I agree with the assessment and plan as above. In brief, patient is an 83yo female presenting with severe right knee pain and difficulty with ambulation. No fall or trauma. Patient does feel that her knee is unstable and she is unable to ambulate. On exam she is afebrile, HD stable NAD Skin - warm, dry, intact. small bruise on right knee, no rash HEENT - NC/AT, PERRL, MMM, neck supple Heart - +S1/S2, regular Lungs- CTA, no rales/rhonchi/wheezes Abd - +BS, soft, NT/ND Right knee appears somewhat swollen. No deformity. Tenderness to palpation over anterior knee and velez as well as medial and lateral portion of knee. No effusion appreciated. Mobility exam limited secondary to pain but does not appear to have anterior or posterior laxity. Labs and images reviewed Assessment/Plan 83yo female wit knee OA s/p multiple injections in the past (cortisone and Euflexxa in the past) presenting with severe right knee pain. She reports some joint instability. No falls, trauma, pops or cracks in the knee. X-ray right knee and tib/fib per my read appear normal with no fractures or dislocations, normal appearing joint space -Pain control -Ortho consultation - patient would likely benefit from an intra-articular injection -No further imaging at this time -PT/OT evaluation appreciated -Remainder as above Resident Activity Tracking Resident Involvement: Resident Care Provided Care Provided: Adult Hospital Medicine (6) DM II (diabetes mellitus, type II), controlled Diabetes mellitus complication detail: with nephropathy Diabetes mellitus complication status: with kidney complications Diabetes mellitus half-way insulin use: with terminal block assembler use Qualified Code(s): E11.21 - Type 2 diabetes mellitus with diabetic nephropathy; Z79.4 - prison (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 (13) Hypothyroidism Hypothyroidism type: acquired Qualified Code(s): E03.9 - Hypothyroidism, unspecified
[2023-11-01] MEDS ORDERED: MELATONIN 3 MG TAB PO PRN (00:37)
[2023-11-01] MEDS ORDERED: POLYETHYLENE (MIRALAX) 17 GM PACK PO PRN (00:37)
[2023-11-01] MEDS ORDERED: ONDANSETRON INJ 2 MG/ML 2 ML VIAL IV PRN (00:37)
[2023-11-01 00:42] LABS: Basophils # (auto) 0.05 K/uL (0.00-0.20); Basophils % (auto) 0.5 %; Eosinophils # (auto) 0.27 K/uL (0.00-0.50); Eosinophils % (auto) 2.5 %; Hemoglobin 10.7 g/dl (12.0-16.0); Immature Granulocytes # (auto) 0.04 K/uL (0.01-0.20); Immature Granulocytes % (auto) 0.4 %; Lymphocytes # (auto) 1.64 K/uL (1.20-3.40); Lymphocytes % (auto) 15.4 %; Mean Corpuscular Hemoglobin 30.2 pg (25.0-34.0); Mean Corpuscular Hgb Conc 31.5 g/dL (32.0-36.0); Mean Platelet Volume 10.7 fL (9.4-12.4); Monocytes # (auto) 0.88 K/uL (0.11-0.59); Monocytes % (auto) 8.2 %; Platelet Count 237 K/uL (130-400); RDW Coefficient of Variation 14.3 % (11.5-14.5); RDW Standard Deviation 50.6 fL (36.4-46.3); Red Blood Count 3.54 M/uL (4.20-5.40); White Blood Count 10.68 K/ul (4.8-10.8)
[2023-11-01] MEDS ORDERED: ACETAMINOPHEN 325 MG TAB PO SCH (00:45)
[2023-11-01 00:52] LABS: Albumin Level 3.5 gm/dl (3.4-5.0); BUN Creatinine Ratio 19.5 (10-20); Bilirubin,Total 0.3 mg/dl (0.2-1.0); Creatinine Clr Calc Pharmacy 22.2 ml/min; Est GFR (African American) 24.4 ml/min; Est GFR (Non-African American) 21.1 ml/min; Globulin 3.5 gm/dl (2.5-4.0); Potassium 4.8 mmol/L (3.5-5.1)
[2023-11-01 01:05] LABS: Prothrombin Time 10.9 Seconds (9.0-12.0)
[2023-11-01] MEDS: ACETAMINOPHEN 500 MG TAB PO SCH ×3 (01:21→16:00)
[2023-11-01] MEDS ORDERED: GLUCOSE 10 TAB/TUBE PO PRN (01:57)
[2023-11-01] MEDS ORDERED: GLUCAGON FOR INJ 1 MG VIAL SQ PRN (01:57)
[2023-11-01] MEDS ORDERED: traZODone HCL 50 MG TAB PO PRN (01:57)
[2023-11-01] MEDS ORDERED: SENNA 8.6 MG TAB PO PRN (01:57)
[2023-11-01] MEDS ORDERED: CARBOHYDRATES FOR HYPOGLYCEMIA PO PRN (01:57)
[2023-11-01] MEDS ORDERED: GLUCOSE 40% GEL 15 GM TUBE PO PRN (01:57)
[2023-11-01] MEDS ORDERED: NON-FORMULARY MEDICATION (Potassium Gluconate 595 mg (99 mg) tablet) PO PRN (01:57)
[2023-11-01] MEDS ORDERED: DEXTROSE 50% 50 ML SYRINGE IV PRN (01:57)
[2023-11-01] MEDS: LEVOTHYROXINE SODIUM 75 MCG TABLET PO SCH (05:40)
--- NOTE | 2023-11-01 07:20 | XRay Report ---
XR knee RT 3V, XR tibia fibula RT 2V HISTORY: 83 years-old Female pain acute pain of the right lower leg without reported trauma COMPARISON: 04/17/2023 TECHNIQUE: 3 views of the right knee with 2 views of the right tibia and fibula FINDINGS: KNEE: Partially imaged superficial femoral arterial graft. Small to moderate joint effusion of the knee. Mi ld tricompartmental osteoarthritis with chondrocalcinosis. No acute fracture, dislocation or osseous erosion. TIBIA/FIBULA: Mild osteoarthritis of the foot and ankle. No acute fracture, dislocation or opaque foreign body. Art erial calcifications are noted. IMPRESSION: No acute fracture or dislocation. ACT 112: Negative or not required by law. The above report was generated using voice recognition software. It may contain grammatical, syntax o r spelling errors. Electronically signed by: Irving Lerner M.D. 11/01/2023 7:19 AM
[2023-11-01] MEDS: carvediloL 3.125 MG TAB PO SCH ×2 (08:16→19:50)
[2023-11-01] MEDS: SERTRALINE HCL 50 MG TABLET PO SCH (08:16)
[2023-11-01] MEDS: VIBEGRON 75 MG TAB PO SCH (08:17)
[2023-11-01] MEDS: TICAGRELOR 90 MG TAB PO SCH ×2 (08:17→19:49)
[2023-11-01] MEDS: RANOLAZINE 500 MG ER TAB PO SCH ×2 (08:17→19:49)
[2023-11-01] MEDS: BUMETANIDE 1 MG TAB PO SCH ×2 (08:17→16:00)
[2023-11-01] MEDS: PANTOprazole 40 MG TAB PO SCH ×2 (08:18→19:49)
[2023-11-01] MEDS: APIXABAN 2.5 MG TAB PO SCH ×2 (08:18→19:50)
[2023-11-01] MEDS: CHOLECALCIFEROL 1,000 UNITS 25 MCG TAB PO SCH (08:18)
[2023-11-01] MEDS: TOCOPHERYL, DL-ALPHA 400 UNITS 180 MG CAP PO SCH (08:18)
[2023-11-01] MEDS: FLUTICASONE PROPIONATE NA SPR 16 GM BTL NAE SCH (08:19)
[2023-11-01] MEDS: POLYETHYLENE (MIRALAX) 17 GM PACK PO SCH ×3 (08:20→19:50)
[2023-11-01] MEDS: INSULIN ASPART PER UNIT CHARGE SC SCH ×4 (08:43→20:50)
[2023-11-01] MEDS ORDERED: LIDOCAINE 1% LOCAL 20 ML VIAL INJ ONE (10:09)
[2023-11-01] MEDS ORDERED: methylPREDNISolone acetate 40 MG/ML VIAL INJ ONE (10:09)
[2023-11-01] MEDS ORDERED: BUPIVACAINE 0.5 % 5 MG/1 ML MPF 30ML VIAL INJ ONE (10:12)
--- NOTE | 2023-11-01 12:30 | Orthopedic Consultation ---
Date of Consultation November 01, 2023 Assessment & Plan (1) Osteoarthritis: 83-year-old right knee pain secondary to acute on chronic osteoarthritis versus pes anserine bursitis versus lumbar etiology Patient seen with Dr. Nascimento, who developed the plan. Proceeded with cortisone injection today into her right knee by Belkis Reyes PA-C under direct supervision of Dr. Nascimento. She noted some pain relief after her procedure. Would recommend icing and physical therapy to assist her in ambulation. Use a walker for ambulating. Fall preventions. She has a follow-up with us in the office in 4 weeks with Nickie Rivers PA-C to discuss how the Gabapentin is working ass well as the potential for Iovera treatment. If she still having issues she can call to schedule something sooner. Pain control per primary. PROCEDURE:After explaining the risks and benefits of the procedure, verbal consent was obtained andthe patient was placed in the seated position. The injection site was confirmed by floor nurse. After performing a time-out, identifying the right knee as the correct knee for intra-articular cortisone injection, the anterolateral portal area was palpated and marked. This area was prepped with Betadine, followed by ethyl chloride spray and alcohol wipe. Then, a combination of 1 mL of 1% lidocaine plain plus 2 mL of 0.5% Marcaine plain plus 1 mL of 40 mg of Depo-Medrol were easily injected. The patient noted immediate relief. The area was cleaned and dried and a Band-Aid was placed on the top. The patient will follow all my above-noted instructions. Present on Admission?: Yes Supervising Physician Co-Signing Physician Notes I, Dr. Nascimento, saw and examined the patient with my PA acting as my scribe. I discussed the management with my PA. I reviewed my PAs note and agree with the documented findings and attest to completing the substantive portion (medical decision making)/ plan of care I developed. I directly supervised the intr- articular injection into the right knee performed by my PA. History of Present Illness Reason for Consultation: Right knee pain Requesting Physician: Ulysses Nascimento MD Attending Physician: Deanna Ren MD History of Present Illness Ban is an 83-year-old female who presented to the ED with right knee pain and ambulatory dysfunction. She is a known patient to us. She has been receiving cortisone injections (last in right knee 05/2023) and Euflexxa injections (08/15/23). She also sees Dr. Zazueta for some back issues. She says that it did help for about a month but did not take away all of her pain but then recently her pain came back. She was worried that she would be able to get into her car and make her appointment with us today. Most of her pain is medial and lateral. She says she has tried ice but it does not help. Allergies Allergy/AdvReac Type Severity Reaction Status Date / Time adhesive Allergy Intermediate REDNESS Verified 10/23/23 11:28 AND IRRITATION FROM PAIN PATCH, TAPE latex Allergy Intermediate ALLERGIC Verified 10/23/23 11:28 TO LATEX TAPE/RASH/ITCHING morphine Allergy Intermediate swelling Verified 10/23/23 11:28 nausea vomiting olmesartan Allergy Unknown UNKNOWN Verified 10/23/23 11:28 benzonatate AdvReac Intermediate confusion Verified 10/23/23 11:28 [From Giovanni Brennan] dulaglutide [From Trulicity] AdvReac Intermediate AFFECTS Verified 10/23/23 11:28 MUSCLES exenatide [From Byetta] AdvReac Intermediate Diarrhea Verified 10/23/23 11:28 ezetimibe AdvReac Intermediate MUSCLE Verified 10/23/23 11:28 ACHES glipizide AdvReac Intermediate Diarrhea Verified 10/23/23 11:28 glyburide AdvReac Intermediate Diarrhea Verified 10/23/23 11:28 lisinopril AdvReac Intermediate LIGHTHEADED Verified 10/23/23 11:28 AND DIZZY losartan AdvReac Intermediate dizziness Verified 10/23/23 11:28 metformin AdvReac Intermediate Diarrhea Verified 10/23/23 11:28 pioglitazone AdvReac Intermediate DIARRHEA Verified 10/23/23 11:28 NAUSEA sitagliptin [From Januvia] AdvReac Intermediate Diarrhea Verified 10/23/23 11:28 Oalcktc-SCS-KiH Reductase AdvReac Intermediate myalgias Verified 10/23/23 11:28 Inhibitor and [Qgxpyik-Wsj-Atb Reductase weakness Inhibitor] aspirin AdvReac Mild GI SYMPTOMS Verified 10/23/23 11:28 Home Medications Medication Instructions Recorded Confirmed Type magnesium oxide 400 mg PO QPM #90 caps 04/01/19 10/31/23 Rx vitamin E 268 mg (400 unit) capsule 400 unit PO QAM 03/29/20 10/31/23 History cholecalciferol (vitamin D3) 25 1,000 unit PO QAM 05/17/21 10/31/23 History mcg (1,000 unit) capsule trazodone 50 mg tablet 50 mg PO HS PRN insomnia #90 tabs 06/23/22 10/31/23 Rx insulin aspar prt-insulin aspart 15 - 30 unit (0.15 - 0.3 mL) 11/28/22 10/31/23 Rx 100 unit/mL (70-30) subcutaneous subcut AMPM #30 mL soln (Novolog Mix 70-30 U-100 Insuln) ranolazine 500 mg tablet,extended 500 mg PO BID 12/18/22 10/31/23 History release,12 hr polyethylene glycol 3350 17 17 g PO TID #119 grams 12/23/22 10/31/23 Rx gram/dose oral powder (Miralax) sennosides 8.6 mg capsule (senna) 8.6 mg PO DAILY PRN constipation 12/23/22 10/31/23 Rx #10 caps carvedilol 3.125 mg tablet 3.125 mg PO BID #180 tabs 04/27/23 10/31/23 Rx garlic 1,000 mg capsule 1,000 mg PO DAILY 05/29/23 10/31/23 History pantoprazole 40 mg tablet,delayed 40 mg PO BID #180 tabs 06/26/23 10/31/23 Rx release (Protonix) digoxin 125 mcg (0.125 mg) tablet 125 mcg PO 3XWK #36 tabs 07/24/23 10/31/23 Rx flash glucose scanning reader #6 ea 07/24/23 10/31/23 Rx (FreeStyle Rossy 14 Day [employer]) sertraline 50 mg tablet 50 mg PO DAILY #90 tabs 07/24/23 10/31/23 Rx ticagrelor 90 mg tablet (Brilinta) 90 mg PO BID #180 tabs 07/24/23 10/31/23 Rx potassium gluconate 595 mg (99 mg) 595 mg PO DAILY PRN With Bumex 08/25/23 10/31/23 History tablet flash glucose sensor (FreeStyle #1 ea 08/30/23 10/31/23 Rx Rossy 14 Day Sensor kit) fluticasone propionate 50 2 spray intranasal DAILY #16 grams 09/06/23 10/31/23 Rx mcg/actuation nasal spray,suspension (Flonase Allergy Relief) bumetanide 1 mg tablet 1 mg PO BID Shortness of 09/11/23 10/31/23 Rx breath/weight gain #180 tabs mirabegron 25 mg tablet,extended 25 mg PO DAILY #30 tabs 09/18/23 10/31/23 Rx release 24 hr gabapentin 100 mg capsule 300 mg (3 x 100 mg) PO HS #90 caps 10/23/23 10/31/23 Rx levothyroxine 75 mcg tablet 75 mcg PO QAM #90 tabs 10/27/23 10/31/23 Rx ondansetron HCl 4 mg tablet 4 mg PO Q8H PRN nausea and 10/27/23 10/31/23 Rx vomiting #30 tabs apixaban 2.5 mg tablet (Eliquis) 2.5 mg PO BID #180 tabs 10/30/23 10/31/23 Rx calcitriol 0.25 mcg capsule 0.25 mcg PO 3XWK #12 caps 10/30/23 10/31/23 Rx (Rocaltrol) insulin syringe-needle U-100 0.3 #100 ea 10/30/23 10/31/23 Rx mL 31 gauge x 5/16" Patient History Medical History Osteoarthritis Orthostasis Hyperlipidemia Acute kidney injury superimposed on chronic kidney disease Non-ST elevation [place] (NSTEMI) Depression Nausea and vomiting after administration of anesthetic agent PAF (paroxysmal atrial fibrillation) History of CVA (cerebrovascular accident) Breast cancer, right Subclavian artery stenosis Rheumatoid arthritis Chronic kidney disease Diabetes mellitus, type 2 SOB (shortness of breath) on exertion DVT (deep venous thrombosis) Ischemic cardiomyopathy Insomnia Biventricular ICD (implantable cardioverter-defibrillator) in place (04/30/20) Antiplatelet or antithrombotic long-term use Secondary hyperparathyroidism of renal origin Anemia due to chronic kidney disease Chronic obstructive pulmonary disease, unspecified CAD (coronary artery disease) Aortic stenosis, severe PAD (peripheral artery disease) Spondylosis Pulmonary hypertension NSTEMI (non-ST elevated myocardial infarction) Chronic combined systolic and diastolic CHF (congestive heart failure) GERD (gastroesophageal reflux disease) Hypothyroidism Left bundle branch block Bilateral carotid artery stenosis Surgical History S/P AV hiren ablation (06/30/22) H/O heart artery stent H/O colonoscopy History of left-sided carotid endarterectomy (09/27/21) Status post partial mastectomy of right breast (09/17/21) History of cardiac cath S/P coronary artery stent placement (10/2018) S/P coronary artery stent placement (10/2017) S/P carotid endarterectomy S/P thoracentesis (03/2020) S/P angioplasty (02/03/21) 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) History of oophorectomy History of hysterectomy History of cholecystectomy H/O: section History of cataract surgery History of appendectomy Family History Daughter Coronary heart disease Diabetes Mother Diabetes Family history of hypercholesterolemia Myocardial infarction Hypertension Stroke Brother Colorectal cancer Father Accident Brother Diabetes Family/Other Myocardial infarction Son Coronary heart disease Hypertension Other Pacemaker Denies family history of Ovarian cancer Prostate cancer Breast cancer Social History Smoking Status: Never smoker Second Hand Exposure: No; Do You Dip or Chew Tobacco: No; Hx Alcohol Use: No Hx Substance Use: No Preferred Language: Kosovan Communication Ability: Effective Visual Impairment: No Limitations Hearing Ability: Hard of Hearing Machine Tank Operator Required: No Beliefs That Will Affect Care: None marital status: / marital status details: passed 2000 Current Living Situation: Alone current occupational status: retired 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 She is tender over the medial lateral joint line and also the pes anserine bursa. She has limited range of motion. No major effusion. Sensation to light touch in unchanged. Able to wiggle her toes and ankle. Calf is soft, mild tenderness. Perivascular changes lower leg. Results & Data Vital Signs (Past 12 Hours) Vital Signs Temp Pulse Resp BP Pulse Ox O2 Del Method 11/01/23 07:38 36.7 C 72 18 123/68 95 Room Air 11/01/23 01:45 36.7 C 79 16 160/74 H 95 Room Air 11/01/23 00:46 72 20 131/77 95 Room Air Laboratory Results 11/01/23 11/01/23 11/01/23 Range/Units 16:29 11:51 07:37 WBC (4.8-10.8) K/ul RBC (4.20-5.40) M/uL Hgb (12.0-16.0) g/dl Hct (37.0-47.0) % MCV (80.0-100.0) fL MCH (25.0-34.0) pg MCHC (32.0-36.0) g/dL RDW Std Deviation (36.4-46.3) fL RDW Coeff of Manuela (11.5-14.5) % Plt Count (130-400) K/uL MPV (9.4-12.4) fL Immature Gran % (Auto) % Neut % (Auto) % Lymph % (Auto) % Barry % (Auto) % Eos % (Auto) % Baso % (Auto) % Neut # (Auto) (1.40-6.50) K/uL Lymph # (Auto) (1.20-3.40) K/uL Barry # (Auto) (0.11-0.59) K/uL Eos # (Auto) (0.00-0.50) K/uL Baso # (Auto) (0.00-0.20) K/uL Immature Gran # (Auto) (0.01-0.20) K/uL PT (9.0-12.0) Seconds INR (0.9-1.1) Sodium (136-145) mmol/L Potassium (3.5-5.1) mmol/L Chloride (98-107) mmol/L Carbon Dioxide (21-32) mmol/L Anion Gap (3-11) BUN (6-23) mg/dl Creatinine (0.6-1.2) mg/dl Est Cr Clr Drug Dosing ml/min Est GFR ( Amer) ml/min Est GFR (Non-Af Amer) ml/min BUN/Creatinine Ratio (10-20) Glucose (70-99(Fasting)) mg/dl POC Glucose 193 H 179 H 133 H (70-99) mg/dl Calcium (8.6-10.3) mg/dl Total Bilirubin (0.2-1.0) mg/dl AST (13-39) U/L ALT (7-52) U/L Alkaline Phosphatase (34-104) U/L Total Protein (6.0-8.3) gm/dl Albumin (3.4-5.0) gm/dl Globulin (2.5-4.0) gm/dl Albumin/Globulin Ratio (0.9-2) Digoxin (0.8-2.0) ng/ml SARS-CoV-2, RNA, NAAT (NEGATIVE) 11/01/23 11/01/23 10/31/23 Range/Units 00:18 00:15 21:52 WBC 10.68 (4.8-10.8) K/ul RBC 3.54 L (4.20-5.40) M/uL Hgb 10.7 L (12.0-16.0) g/dl Hct 34.0 L (37.0-47.0) % MCV 96.0 (80.0-100.0) fL MCH 30.2 (25.0-34.0) pg MCHC 31.5 L (32.0-36.0) g/dL RDW Std Deviation 50.6 H (36.4-46.3) fL RDW Coeff of Manuela 14.3 (11.5-14.5) % Plt Count 237 (130-400) K/uL MPV 10.7 (9.4-12.4) fL Immature Gran % (Auto) 0.4 % Neut % (Auto) 73.0 % Lymph % (Auto) 15.4 % Barry % (Auto) 8.2 % Eos % (Auto) 2.5 % Baso % (Auto) 0.5 % Neut # (Auto) 7.80 H (1.40-6.50) K/uL Lymph # (Auto) 1.64 (1.20-3.40) K/uL Barry # (Auto) 0.88 H (0.11-0.59) K/uL Eos # (Auto) 0.27 (0.00-0.50) K/uL Baso # (Auto) 0.05 (0.00-0.20) K/uL Immature Gran # (Auto) 0.04 (0.01-0.20) K/uL PT 10.9 (9.0-12.0) Seconds INR 1.0 (0.9-1.1) Sodium 136 (136-145) mmol/L Potassium 4.8 (3.5-5.1) mmol/L Chloride 99 (98-107) mmol/L Carbon Dioxide 29 (21-32) mmol/L Anion Gap 8 (3-11) BUN 41 H (6-23) mg/dl Creatinine 2.10 H (0.6-1.2) mg/dl Est Cr Clr Drug Dosing 22.2 ml/min Est GFR ( Amer) 24.4 ml/min Est GFR (Non-Af Amer) 21.1 ml/min BUN/Creatinine Ratio 19.5 (10-20) Glucose 136 H (70-99(Fasting)) mg/dl POC Glucose 140 H (70-99) mg/dl Calcium 9.0 (8.6-10.3) mg/dl Total Bilirubin 0.3 (0.2-1.0) mg/dl AST 18 (13-39) U/L ALT 16 (7-52) U/L Alkaline Phosphatase 107 H (34-104) U/L Total Protein 7.0 (6.0-8.3) gm/dl Albumin 3.5 (3.4-5.0) gm/dl Globulin 3.5 (2.5-4.0) gm/dl Albumin/Globulin Ratio 1.0 (0.9-2) Digoxin 1.0 (0.8-2.0) ng/ml SARS-CoV-2, RNA, NAAT NEGATIVE (NEGATIVE) Diagnostic Findings Knee X-Ray 10/31/23 22:04 XR knee RT 3V, XR tibia fibula RT 2V HISTORY: 83 years-old Female pain acute pain of the right lower leg without reported trauma COMPARISON: 04/17/2023 TECHNIQUE: 3 views of the right knee with 2 views of the right tibia and fibula FINDINGS: KNEE: Partially imaged superficial femoral arterial graft. Small to moderate joint effusion of the knee. Mild tricompartmental osteoarthritis with cho ndrocalcinosis. No acute fracture, dislocation or osseous erosion. TIBIA/FIBULA: Mild osteoarthritis of the foot and ankle. No acute fracture, dislocation or opaque foreign body. Arterial calcifications are noted. IMPRESSION: No acute fracture or dislocation. ACT 112: Negative or not required by law. The above report was generated using voice recognition software. It may contain grammatical, syntax or spelling errors. Electronically signed by: Irving Lerner M.D. 11/01/2023 7:19 AM Tibia/Fibula X-Ray 10/31/23 22:04 XR knee RT 3V, XR tibia fibula RT 2V HISTORY: 83 years-old Female pain acute pain of the right lower leg without reported trauma COMPARISON: 04/17/2023 TECHNIQUE: 3 views of the right knee with 2 views of the right tibia and fibula FINDINGS: KNEE: Partially imaged superficial femoral arterial graft. Small to moderate joint effusion of the knee. Mild tricompartmental osteoarthritis with chondrocalcinosis. No acute fracture, dislocation or osseous erosion. TIBIA/FIBULA: Mild osteoarthritis of the foot and ankle. No acute fracture, dislocation or opaque foreign body. Arterial calcifications are noted.
[2023-11-01] MEDS ORDERED: DIGOXIN 0.125 MG TAB PO SCH (16:00)
--- NOTE | 2023-11-01 17:20 | History & Physical Bridge Note ---
Date of Service November 01, 2023 History & Physical Bridge Note I have examined the patient, reviewed the History & Physical and in the interval since the performance of the History & Physical I have noted the following changes of clinical significance: Ms. Barry reports not much improvement in right knee pain since injection with Ortho today but was able to ambulate 12 feet with PT. She reprts she prefers to go home with home health rather than rehab. Pain in knee more in medial/pes anserine location and some shooting sharp pains up through patella with walking. Denies SOB, CP. Vitals reviewed NAD, AAOx3 RRR 26 BARRY at [facility] CT[facility] no wcr Ext Right knee no effusion, +varicose veins in legs bilat, no erythema of right knee Continue pain control, add ice to right knee add on Lyme titer to AM labs likely dc tomorrow
[2023-11-01] MEDS ORDERED: GABAPENTIN 300 MG CAP PO SCH (21:00)
[2023-11-01] MEDS ORDERED: MAGNESIUM OXIDE 400 MG TAB PO SCH (21:00)
[2023-11-02] MEDS: ACETAMINOPHEN 500 MG TAB PO SCH ×3 (00:48→17:01)
[2023-11-02] MEDS: LEVOTHYROXINE SODIUM 75 MCG TABLET PO SCH (05:41)
[2023-11-02 08:14] LABS: Hematocrit (blood only) 38.6 % (37.0-47.0); Hemoglobin 12.5 g/dl (12.0-16.0); Mean Corpuscular Hemoglobin 30.5 pg (25.0-34.0); Mean Corpuscular Hgb Conc 32.4 g/dL (32.0-36.0); Mean Corpuscular Volume 94.1 fL (80.0-100.0); Mean Platelet Volume 10.9 fL (9.4-12.4); Platelet Count 323 K/uL (130-400); RDW Coefficient of Variation 14.2 % (11.5-14.5); RDW Standard Deviation 48.5 fL (36.4-46.3); White Blood Count 14.17 K/ul (4.8-10.8)
[2023-11-02 08:41] LABS: BUN Creatinine Ratio 21.1 (10-20); Calcium 9.6 mg/dl (8.6-10.3); Creatinine Clr Calc Pharmacy 21.9 ml/min; Est GFR (Non-African American) 20.7 ml/min; Potassium 4.9 mmol/L (3.5-5.1)
[2023-11-02] MEDS: TOCOPHERYL, DL-ALPHA 400 UNITS 180 MG CAP PO SCH (08:47)
[2023-11-02] MEDS: BUMETANIDE 1 MG TAB PO SCH ×2 (08:47→17:00)
[2023-11-02] MEDS: FLUTICASONE PROPIONATE NA SPR 16 GM BTL NAE SCH (08:47)
[2023-11-02] MEDS: APIXABAN 2.5 MG TAB PO SCH (08:47)
[2023-11-02] MEDS: CHOLECALCIFEROL 1,000 UNITS 25 MCG TAB PO SCH (08:47)
[2023-11-02] MEDS: carvediloL 3.125 MG TAB PO SCH (08:47)
[2023-11-02] MEDS: PANTOprazole 40 MG TAB PO SCH (08:48)
[2023-11-02] MEDS: SERTRALINE HCL 50 MG TABLET PO SCH (08:48)
[2023-11-02] MEDS: VIBEGRON 75 MG TAB PO SCH (08:48)
[2023-11-02] MEDS: RANOLAZINE 500 MG ER TAB PO SCH (08:48)
[2023-11-02] MEDS: TICAGRELOR 90 MG TAB PO SCH (08:48)
[2023-11-02] MEDS: POLYETHYLENE (MIRALAX) 17 GM PACK PO SCH ×2 (08:49→13:12)
[2023-11-02] MEDS: INSULIN ASPART PER UNIT CHARGE SC SCH ×3 (08:54→16:56)
[2023-11-02 08:57] LABS: Lyme Ab IgG w/WB Rflx Negative (Negative); Lyme Ab IgM w/WB Rflx Negative (Negative)
[2023-11-02] MEDS ORDERED: CALCITRIOL 0.25 MCG CAPSULE PO SCH (09:00)
[2023-11-02] MEDS ORDERED: LANTUS PER UNIT CHARGE SQ ONE ×2 (11:00→12:00)
--- NOTE | 2023-11-02 11:17 | Discharge Summary ---
Discharge Summary Date of Service November 02, 2023 Notes For Next Care Provider Medication Changes From Visit Added Tylenol 1000mg po q8h prn pain Admission HPI Per Admitting Provider Pt is a 83 yo female with PMH of osteoarthritis, HLD, NSTEMI, CVA, paroxysmal afib, CKD, RA, DVT (2019), biventricular ICD in place, aortic stenosis s/p TAVR, PAD s/p stenting, HFpEF/HPrEF, and bilateral carotid artery stenosis presenting due to right knee pain and inability to ambulate at home. Pt states that she has had a long hx of right knee pain. She follows with [facility] for her radicular back pain and right knee pain. She has gotten injections in both her back and bilateral knees in the past. She states her pain started on Monday while at the grocery store. She denies any injury or inciting event. Since then, it has continued to worsen to the point that she cannot bear weight w/o causing extreme pain and having her knee buckle from underneath her. She lives alone and is afraid of falling due to her knee pain. She was due to see orthopedics tomorrow but came to the ER as she could not tolerate the pain. In the ER, she was hemodynamically stable. Her lab work was significant for no leukocytosis, Hgb 10.7, and platelets 237, and Cr 2.10. PT/INR and digoxin level were pending. Her right knee and tibia/fibula xrays (read by myself) were w/o acute fracture. She was given half a tab of 5/325 [place] which made her a little foggy. Her nighttime gabapentin dose was also given. Principal Dx & Hospital Course #1 = Principal Diagnosis (1) Ambulatory dysfunction: Pt is a 83 yo female with PMH of osteoarthritis, HLD, NSTEMI, CVA, paroxysmal afib, CKD, RA, DVT (2019), biventricular ICD in place, aortic stenosis s/p TAVR, PAD s/p stenting, HFpEF/HPrEF, and bilateral carotid artery stenosis presenting due to right knee pain and inability to ambulate at home. Acute on chronic right knee pain - pt follows outpatient with [facility] ortho;has a h/o OA and has had hyaluronic acid and steroid injections in the past - knee and tib/fib xrays WNL -improved after steroid injection and icing, scheduled tylenol -worked with PT on day of discharge and ws much improved, stable for discharge to home-she prefers outpt PT rather than home PT - continue pain control: tylenol 1000mg q8hr scheduled, avoid NSAIDs d/t CKD -f/u with Ortho in 4 weeks for possible [place] tx HFpEF-chronic - last echo 07/2023 showed EF 40-45% - no acute exacerbation - continue home bumetanide 1 mg BID, KCl CKD stage 4 - Cr 2.10 upon admission and remained stable; baseline appears ~1.8-2.1 - avoid NSAIDs Paroxysmal afib-rate controlled - continue home digoxin, carvedilol, and eliquis Hx of DVT - continue eliquis CAD, PAD - continue home Brilinta, Eliquis, Coreg,Ranexa -statin intolerant Aortic stenosis - s/p TAVR - continue medications as above DMII, with hyperglycemia here from steroids - last A1c 06/2023 7.1% - is on NPH 70/30 at home and not getting any long acting insulin here, glucose in 300s -added one dose of Lantus 5 units, gave Novolog SSI -resume home sliding scale 70/30 after discharge Hypothyroidism - continue home levothyroxine 75 mcg daily VTE ppx: eliquis 2.5 mg BID Code: full; pt would like CPR/intubation in the acute setting, but makes note that she would not like to be on a machine for a "prolonged period of time"- pt states she has a living will Dispo: dc to home today (2) Acute pain of right knee: (3) Osteoarthritis: (4) Hyperlipidemia: (5) HFrEF (heart failure with reduced ejection fraction): (6) DM II (diabetes mellitus, type II), controlled: (7) CKD (chronic kidney disease) stage 4, GFR 15-29 ml/min: (8) S/P carotid endarterectomy: (9) PAF (paroxysmal atrial fibrillation): (10) Biventricular ICD (implantable cardioverter-defibrillator) in place: (11) S/P TAVR (transcatheter aortic valve replacement): (12) CAD (coronary artery disease): (13) Hypothyroidism: Discharge Exam Constitutional WD/WN, vitals as above Respiratory normal respiratory effort, lungs clear to auscultation Cardiovascular Rate/Rhythm: regular rate and + irregularly irregular Heart Sounds: + murmur (2/6 BARRY at RUSB) Gastrointestinal (Abdomen) normal bowel sounds, soft, nontender, no hepatosplenomegaly Musculoskeletal Right knee with mild effusion, no erythema mild ttp over pes anserine bursa Psychiatric A+Ox3, euthymic affect Updated Medication List Medication Instructions Recorded Confirmed Type magnesium oxide 400 mg PO QPM #90 caps 04/01/19 10/31/23 Rx vitamin E 268 mg (400 unit) capsule 400 unit PO QAM 03/29/20 10/31/23 History cholecalciferol (vitamin D3) 25 1,000 unit PO QAM 05/17/21 10/31/23 History mcg (1,000 unit) capsule trazodone 50 mg tablet 50 mg PO HS PRN insomnia #90 tabs 06/23/22 10/31/23 Rx insulin aspar prt-insulin aspart 15 - 30 unit (0.15 - 0.3 mL) 11/28/22 10/31/23 Rx 100 unit/mL (70-30) subcutaneous subcut AMPM #30 mL soln (Novolog Mix 70-30 U-100 Insuln) ranolazine 500 mg tablet,extended 500 mg PO BID 12/18/22 10/31/23 History release,12 hr polyethylene glycol 3350 17 17 g PO TID #119 grams 12/23/22 10/31/23 Rx gram/dose oral powder (Miralax) sennosides 8.6 mg capsule (senna) 8.6 mg PO DAILY PRN constipation 12/23/22 10/31/23 Rx #10 caps carvedilol 3.125 mg tablet 3.125 mg PO BID #180 tabs 04/27/23 10/31/23 Rx garlic 1,000 mg capsule 1,000 mg PO DAILY 05/29/23 10/31/23 History pantoprazole 40 mg tablet,delayed 40 mg PO BID #180 tabs 06/26/23 10/31/23 Rx release (Protonix) digoxin 125 mcg (0.125 mg) tablet 125 mcg PO 3XWK #36 tabs 07/24/23 10/31/23 Rx flash glucose scanning reader #6 ea 07/24/23 10/31/23 Rx (FreeStyle Rossy 14 Day [place]) sertraline 50 mg tablet 50 mg PO DAILY #90 tabs 10/09/23 01/16/24 Rx ticagrelor 90 mg tablet (Brilinta) 90 mg PO BID #180 tabs 07/24/23 10/31/23 Rx potassium gluconate 595 mg (99 mg) 595 mg PO DAILY PRN With Bumex 08/25/23 10/31/23 History tablet flash glucose sensor (FreeStyle #1 ea 08/30/23 10/31/23 Rx Rossy 14 Day Sensor kit) fluticasone propionate 50 2 spray intranasal DAILY #16 grams 09/06/23 10/31/23 Rx mcg/actuation nasal spray,suspension (Flonase Allergy Relief) bumetanide 1 mg tablet 1 mg PO BID Shortness of 09/11/23 10/31/23 Rx breath/weight gain #180 tabs mirabegron 25 mg tablet,extended 25 mg PO DAILY #30 tabs 09/18/23 10/31/23 Rx release 24 hr gabapentin 100 mg capsule 300 mg (3 x 100 mg) PO HS #90 caps 10/23/23 10/31/23 Rx levothyroxine 75 mcg tablet 75 mcg PO QAM #90 tabs 10/27/23 10/31/23 Rx ondansetron HCl 4 mg tablet 4 mg PO Q8H PRN nausea and 10/27/23 10/31/23 Rx vomiting #30 tabs apixaban 2.5 mg tablet (Eliquis) 2.5 mg PO BID #180 tabs 10/30/23 10/31/23 Rx calcitriol 0.25 mcg capsule 0.25 mcg PO 3XWK #12 caps 10/30/23 10/31/23 Rx (Rocaltrol) insulin syringe-needle U-100 0.3 #100 ea 10/30/23 10/31/23 Rx mL 31 gauge x 5/16" Hospital Stay Data Consultations 10/31/23 23:44 ED Decision to Admit Stat 11/01/23 07:00 Consult Orthopedic Surgery Routine Pending Results Patient Have Any Pending Studies at Discharge: No Discharge Instructions Given to Patient (Per Discharging Provider) Continue ice to the right knee and outpatient physical therapy. Follow up with the Orthopedic Surgery office within 4 weeks as recommended. Your blood sugars were high here from the steroid injection you received in your knee. This should improve over the next few days. Please continue taking your insulin as per the scale you have at home. Total Time Total Time Spent Total Time Spent (In Minutes): 35 min Coding Level of Care Code 50082 INP/OBS DISCH >30 MIN Diagnoses Ambulatory dysfunction R26.2 Acute pain of right knee M25.561 Osteoarthritis M19.90 Hyperlipidemia E78.5 HFrEF (heart failure with reduced ejection fraction) I50.20 Controlled type 2 diabetes mellitus with diabetic nephropathy, with long-term current use of insulin E11.21; Z79.4 Diabetes mellitus terminal computer operator insulin use: with terminal computer operator use Diabetes mellitus complication status: with kidney complications Diabetes mellitus complication detail: with nephropathy CKD (chronic kidney disease) stage 4, GFR 15-29 ml/min N18.4 S/P carotid endarterectomy Z98.890 PAF (paroxysmal atrial fibrillation) I48.0 Biventricular ICD (implantable cardioverter-defibrillator) in place Z95.810 S/P TAVR (transcatheter aortic valve replacement) Z95.2 CAD (coronary artery disease) I25.10 Acquired hypothyroidism E03.9 Hypothyroidism type: acquired
== END 2023-11-02 17:25 | disposition home or self-care (01) | DRG 554 ==
LOC: ED 21:44 → 3N 11-01 00:38 → SUATTDRO 11-01 00:38 → 3N 11-01 01:30

== ENCOUNTER 2023-12-18 11:53 | Inpatient (IN) ==
--- NOTE | 2023-12-18 12:25 | Emergency Department Note ---
Impression & Plan Chest pain DC ED Provider Note HPI: History obtained from patient. The patient is a 83-year-old female with history of coronary artery disease, type 2 diabetes, systolic heart failure, on chronic anticoagulation for history of paroxysmal atrial fibrillation, presents the emergency department with a chief complaint of chest "pressure". Patient states she was actually on her way to her cardiology appointment today when she developed a sensation of bandlike pressure across the top portion of her chest. Patient states this lasted about 30 minutes. Patient states she did mention this in the cardiology office and was referred to the ED for further assessment. On arrival here to the ED the patient is hypertensive at 170/95 but otherwise hemodynamically stable. She is saturating well on room air on arrival. Patient states that she no longer has the sensation of chest discomfort. ROS: - Per HPI Differential Diagnosis: Acute coronary syndrome, pulmonary embolism, pneumothorax, esophagitis, aortic dissection, CHF exacerbation, amongst other potential pathologies. *Outpatient medications and allergy history reviewed. PE: General: Alert HEENT: Normocephalic, trachea midline Eyes: Extraocular eye movement is intact, no scleral erythema Pulmonary: Clear to auscultation bilaterally, no wheezing Cardio: Regular rate and rhythm GI: Abdomen is soft to palpation : No suprapubic tenderness MSK: No evidence of trauma or malformation of the extremities, 2+ edema of the bilateral lower extremities Skin: No evidence of rash Neuro: Alert, no focal deficits Psychiatric: Cooperative INDEPENDENT INTERPRETATIONS: monitor tech: (As interpreted by myself): - An order was placed for continuous cardiac monitoring - Patient was noted to be in paced rhythm with a rate of 75 EKG: (As interpreted by myself): Rate: 78 Rhythm: Paced rhythm Intervals: QRS 158 ms, QTc [address] changes: No ST elevation Time: 1159 Chest x-ray: (As interpreted by myself): Pulmonary edema Interventions provided in ED: -IV Lasix Medical Decision Making: Patient appears well on arrival, denies any active chest pain. IV was established and lab work obtained, patient was placed on property assessment monitor. Lab work shows a mild leukocytosis at 11.57, hemoglobin is stable at 10.8, platelet count is normal, CMP does not show any evidence of critical findings, creatinine appears to be at baseline at 1.95, troponin is elevated at 40.7 which appears to be baseline. Urinalysis shows possible infection with leukocyte esterase at 3+ and pyuria. Patient will be treated with IV ceftriaxone following discussion with the hospitalist service. On my reassessment the patient was ambulated to the restroom by the bedside RN, she had extreme difficulty with dyspnea despite only exerting herself for a minimal distance to go to the restroom. She was given IV Lasix over concern for CHF exacerbation/fluid overload. I feel the patient is appropriate for admission. Case was discussed with the on-call midlevel provider for the hospitalist, Yao Johnson PA-C, the patient was placed for admission in stable condition. Consultants/Discussions held with other healthcare providers: -Yao Johnson PA-C, Hospitalist service /Dr. Lopez Disposition discussion held by myself with: -Patient Diagnosis: 1. Chest pain, acute 2. History of coronary artery disease 3. Dyspnea on exertion, acute 4. Pulmonary edema, acute 5. Urinary tract infection, acute Disposition: Admission Kyle Yousif DO Emergency Medicine Past Med/Surg History Medical History Osteoarthritis Orthostasis Hyperlipidemia Acute kidney injury superimposed on chronic kidney disease Non-ST elevation IN (NSTEMI) Depression Nausea and vomiting after administration of anesthetic agent PAF (paroxysmal atrial fibrillation) History of CVA (cerebrovascular accident) Breast cancer, right Subclavian artery stenosis Rheumatoid arthritis Chronic kidney disease Diabetes mellitus, type 2 SOB (shortness of breath) on exertion DVT (deep venous thrombosis) Ischemic cardiomyopathy Insomnia Biventricular ICD (implantable cardioverter-defibrillator) in place (04/30/20) Antiplatelet or antithrombotic long-term use Secondary hyperparathyroidism of renal origin Anemia due to chronic kidney disease Chronic obstructive pulmonary disease, unspecified CAD (coronary artery disease) Aortic stenosis, severe PAD (peripheral artery disease) Spondylosis Pulmonary hypertension NSTEMI (non-ST elevated myocardial infarction) Chronic combined systolic and diastolic CHF (congestive heart failure) GERD (gastroesophageal reflux disease) Hypothyroidism Left bundle branch block Bilateral carotid artery stenosis Surgical History S/P AV hiren ablation (06/30/22) H/O heart artery stent H/O colonoscopy History of left-sided carotid endarterectomy (09/27/21) Status post partial mastectomy of right breast (09/17/21) History of cardiac cath S/P coronary artery stent placement (10/2018) S/P coronary artery stent placement (10/2017) S/P carotid endarterectomy S/P thoracentesis (03/2020) S/P angioplasty (02/03/21) 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) History of oophorectomy History of hysterectomy History of cholecystectomy H/O: section History of cataract surgery History of appendectomy Family History Daughter Coronary heart disease Diabetes Mother Diabetes Family history of hypercholesterolemia Myocardial infarction Hypertension Stroke Brother Colorectal cancer Father Accident Brother Diabetes Family/Other Myocardial infarction Son Coronary heart disease Hypertension Other Pacemaker Denies family history of Ovarian cancer Prostate cancer Breast cancer Social History Smoking Status: Never smoker Second Hand Exposure: No; Do You Dip or Chew Tobacco: No; Hx Alcohol Use: No Hx Substance Use: No Preferred Language: Malian Communication Ability: Effective Visual Impairment: No Limitations Hearing Ability: Hard of Hearing Stitch 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 Helper Required: No Beliefs That Will Affect Care: None marital status: / marital status details: passed 2000 Current Living Situation: Alone current occupational status: retired 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 How many Children do You have: 2 Feels Safe at Home: Yes Diet: regular caffeine: Yes (1 cup/day) during the past year weight has: remained stable Dental Care, Regularly: No Physical Activity Frequency: Daily Seatbelt Use: always Assistive Devices: Cane and Walker Allergies Allergies Allergy/AdvReac Type Severity Reaction Status Date / Time adhesive Allergy Intermediate REDNESS Verified 12/18/23 11:03 AND IRRITATION FROM PAIN PATCH, TAPE latex Allergy Intermediate ALLERGIC Verified 12/18/23 11:03 TO LATEX TAPE/RASH/ITCHING morphine Allergy Intermediate swelling Verified 12/18/23 11:03 nausea vomiting olmesartan Allergy Unknown UNKNOWN Verified 12/18/23 11:03 benzonatate AdvReac Intermediate confusion Verified 12/18/23 11:03 [From Tessalon Perles] dulaglutide [From Trulicity] AdvReac Intermediate AFFECTS Verified 12/18/23 11:03 MUSCLES exenatide [From Byetta] AdvReac Intermediate Diarrhea Verified 12/18/23 11:03 ezetimibe AdvReac Intermediate MUSCLE Verified 12/18/23 11:03 ACHES glipizide AdvReac Intermediate Diarrhea Verified 12/18/23 11:03 glyburide AdvReac Intermediate Diarrhea Verified 12/18/23 11:03 lisinopril AdvReac Intermediate LIGHTHEADED Verified 12/18/23 11:03 AND DIZZY losartan AdvReac Intermediate dizziness Verified 12/18/23 11:03 metformin AdvReac Intermediate Diarrhea Verified 12/18/23 11:03 pioglitazone AdvReac Intermediate DIARRHEA Verified 12/18/23 11:03 NAUSEA sitagliptin [From ] AdvReac Intermediate Diarrhea Verified 12/18/23 11:03 [id number] Reductase AdvReac Intermediate myalgias Verified 12/18/23 11:03 Inhibitor and [Hfuqzvp-Wsq-Gyc Reductase weakness Inhibitor] aspirin AdvReac Mild GI SYMPTOMS Verified 12/18/23 11:03 Home Meds Home Medications Medication Instructions Recorded Confirmed vitamin E 268 mg (400 unit) capsule 400 unit PO QAM 03/29/20 12/18/23 cholecalciferol (vitamin D3) 25 1,000 unit PO QAM 05/17/21 12/18/23 mcg (1,000 unit) capsule garlic 1,000 mg capsule 1,000 mg PO DAILY 05/29/23 12/18/23 potassium gluconate 595 mg (99 mg) 595 mg PO DAILY PRN With Bumex 08/25/23 12/18/23 tablet Previous Rx's Medication Instructions Recorded magnesium oxide 400 mg PO QPM #90 caps 04/01/19 trazodone 50 mg tablet 50 mg PO HS PRN insomnia #90 tabs 06/23/22 insulin aspar prt-insulin aspart 15 - 30 unit (0.15 - 0.3 mL) 11/28/22 100 unit/mL (70-30) subcutaneous subcut AMPM #30 mL soln (Novolog Mix 70-30 U-100 Insuln) polyethylene glycol 3350 17 17 g PO TID #119 grams 12/23/22 gram/dose oral powder (Miralax) sennosides 8.6 mg capsule (senna) 8.6 mg PO DAILY PRN constipation 12/23/22 #10 caps carvedilol 3.125 mg tablet 3.125 mg PO BID #180 tabs 04/27/23 pantoprazole 40 mg tablet,delayed 40 mg PO BID #180 tabs 06/26/23 release (Protonix) digoxin 125 mcg (0.125 mg) tablet 125 mcg PO 3XWK #36 tabs 07/24/23 flash glucose scanning reader #6 ea 07/24/23 (FreeStyle Rossy 14 Day [place]) sertraline 50 mg tablet 50 mg PO DAILY #90 tabs 07/24/23 ticagrelor 90 mg tablet (Brilinta) 90 mg PO BID #180 tabs 07/24/23 fluticasone propionate 50 2 spray intranasal DAILY #16 grams 09/06/23 mcg/actuation nasal spray,suspension (Flonase Allergy Relief) bumetanide 1 mg tablet 1 mg PO BID Shortness of 09/11/23 breath/weight gain #180 tabs mirabegron 25 mg tablet,extended 25 mg PO DAILY #30 tabs 09/18/23 release 24 hr gabapentin 100 mg capsule 300 mg (3 x 100 mg) PO HS #90 caps 10/23/23 levothyroxine 75 mcg tablet 75 mcg PO QAM #90 tabs 10/27/23 ondansetron HCl 4 mg tablet 4 mg PO Q8H PRN nausea and 10/27/23 vomiting #30 tabs apixaban 2.5 mg tablet (Eliquis) 2.5 mg PO BID #180 tabs 10/30/23 calcitriol 0.25 mcg capsule 0.25 mcg PO 3XWK #12 caps 10/30/23 (Rocaltrol) insulin syringe-needle U-100 0.3 #100 ea 10/30/23 mL 31 gauge x 5/16" acetaminophen 500 mg tablet 1,000 mg (2 x 500 mg) PO Q8H PRN 11/02/23 (Tylenol Extra Strength) pain #30 tabs ranolazine 500 mg tablet,extended 500 mg PO BID #180 tabs 11/14/23 release,12 hr flash glucose sensor (FreeStyle #1 ea 11/24/23 Rossy 14 Day Sensor kit) Results & Data (ED) Vital Signs Vital Signs - 24 hr 12/18/23 12:06 12/18/23 12:09 12/18/23 12:16 Temperature 36.6 C Temperature Source Oral Pulse Rate 90 88 Pulse Rate [Apical] Respiratory Rate 12 Blood Pressure 170/95 H Blood Pressure [Right Arm] Blood Pressure Mean 120 Blood Pressure Mean [Right Arm] Pulse Oximetry 97 Oxygen Delivery Method Room Air Sepsis Recent Fever Within 48 Hours No Sepsis New/Unexplained Change in Mental Status No Sepsis Action Taken by Nursing No Action Required 12/18/23 12:54 12/18/23 13:36 Temperature Temperature Source Pulse Rate 70 Pulse Rate [Apical] 70 Respiratory Rate 18 17 Blood Pressure Blood Pressure [Right Arm] 178/83 H Blood Pressure Mean Blood Pressure Mean [Right Arm] 114 Pulse Oximetry 94 93 Oxygen Delivery Method Room Air Room Air Sepsis Recent Fever Within 48 Hours Sepsis New/Unexplained Change in Mental Status Sepsis Action Taken by Nursing Laboratory Data 12/18/23 12:11 12/18/23 12:11 Lab Results 12/18/23 Range/Units 12:11 WBC 11.57 H (4.8-10.8) K/ul RBC 3.58 L (4.20-5.40) M/uL Hgb 10.8 L (12.0-16.0) g/dl Hct 33.9 L (37.0-47.0) % MCV 94.7 (80.0-100.0) fL MCH 30.2 (25.0-34.0) pg MCHC 31.9 L (32.0-36.0) g/dL RDW Std Deviation 49.6 H (36.4-46.3) fL RDW Coeff of Manuela 14.2 (11.5-14.5) % Plt Count 290 (130-400) K/uL MPV 10.8 (9.4-12.4) fL Immature Gran % (Auto) 0.5 % Neut % (Auto) 69.1 % Lymph % (Auto) 18.6 % Lawrence % (Auto) 8.6 % Eos % (Auto) 2.7 % Baso % (Auto) 0.5 % Neut # (Auto) 8.00 H (1.40-6.50) K/uL Lymph # (Auto) 2.15 (1.20-3.40) K/uL Lawrence # (Auto) 0.99 H (0.11-0.59) K/uL Eos # (Auto) 0.31 (0.00-0.50) K/uL Baso # (Auto) 0.06 (0.00-0.20) K/uL Immature Gran # (Auto) 0.06 (0.01-0.20) K/uL PT 11.1 (9.0-12.0) Seconds INR 1.0 (0.9-1.1) Sodium 137 (136-145) mmol/L Potassium 4.2 (3.5-5.1) mmol/L Chloride 99 (98-107) mmol/L Carbon Dioxide 27 (21-32) mmol/L Anion Gap 11 (3-11) BUN 41 H (6-23) mg/dl Creatinine 1.95 H (0.6-1.2) mg/dl Est Cr Clr Drug Dosing 24.1 ml/min Est GFR ( Amer) 26.7 ml/min Est GFR (Non-Af Amer) 23.1 ml/min BUN/Creatinine Ratio 21.0 H (10-20) Glucose 133 H (70-99(Fasting)) mg/dl Calcium 9.2 (8.6-10.3) mg/dl Total Bilirubin 0.4 (0.2-1.0) mg/dl AST 19 (13-39) U/L ALT 16 (7-52) U/L Alkaline Phosphatase 123 H (34-104) U/L Troponin I High Sens 40.7 H (0-14) pg/ml Total Protein 7.3 (6.0-8.3) gm/dl Albumin 3.9 (3.4-5.0) gm/dl Globulin 3.4 (2.5-4.0) gm/dl Albumin/Globulin Ratio 1.1 (0.9-2) Lipase 16 (11-82) U/L Urine Color Yellow Urine Appearance Cloudy A (Clear) Urine pH 7.5 (4.5-7.5) Ur Specific [place] 1.009 (1.000-1.030) Urine Protein Trace H (Negative) Urine Glucose (UA) Negative (Negative) Urine Ketones Negative (Negative) Urine Blood 3+ H (Negative) Urine Nitrite Negative (Negative) Urine Bilirubin Negative (Negative) Urine Urobilinogen Negative (Negative) Ur Leukocyte Esterase 3+ H (Negative) Urine WBC (Auto) >30 H (0-5) /hpf Urine RBC (Auto) 10-30 H (0-4) /hpf U Hyaline Cast (Auto) 0 (0-5) /lpf U Epithel Cells (Auto) 0-5 (0-5) /lpf Urine Bacteria (Auto) Negative (Negative) Urine Yeast Present A (None Prsent) Administered Medications Discontinued Medications Furosemide (Furosemide 40 Mg/4 Ml Vial) 40 mg IV ONE ONE Stop: 12/18/23 13:25 Last Admin: 12/18/23 13:38 Dose: 40 mg Documented By: [facility] Imaging Data Radiologist's Impression: Chest X-Ray 12/18/23 12:15 SINGLE VIEW CHEST CLINICAL HISTORY: Atypical chest pain FINDINGS: An AP, portable, upright chest radiograph is compared to study dated 01/14/2023. A multilead cardiac AICD is unchanged in position and partially obscures the left mid chest. There is evidence of previous cardiac valve surgery. The heart is enlarged noting atherosclerotic calcification of the thoracic into. There is pulmonary vascular congestion with mild interstitial edema. There are small pleural effusions with dependent consolidation. No pneumothorax is seen. The skeletal structures are osteopenic. The bony thorax is grossly intact. Arthritic change is noted in the shoulders and spine. IMPRESSION: 1. Cardiomegaly with evidence of congestive failure and pulmonary edema. 2. Small pleural effusions with dependent consolidation. ACT 112: Negative or not required by law. Electronically signed by: Marcus East M.D. 12/18/2023 1:14 PM Discharge Plan Visit Data Chief Complaint: Chest Pain ED Provider: Kyle Yousif Discharge Problem: Chest pain Forms Stand Alone Forms: My [facility] Prescriptions Prescriptions: No Action cholecalciferol (vitamin D3) 25 mcg (1,000 unit) capsule 1,000 unit PO QAM trazodone 50 mg tablet 50 mg PO HS PRN (Reason: insomnia) Qty: 90 1RF pantoprazole [Protonix] 40 mg tablet,delayed release (DR/EC) 40 mg PO BID Qty: 180 1RF bumetanide 1 mg tablet 1 mg PO BID Qty: 180 3RF (DME) insulin syringe-needle U-100 0.3 mL 31 gauge x 5/16" syringe See Rx Instructions .Route Qty: 100 3RF Rx Instructions: test three times daily calcitriol [Rocaltrol] 0.25 mcg capsule 0.25 mcg PO 3XWK Qty: 12 1RF Rx Instructions: MONDAY/MONDAY/MONDAY/ IN THE AM Eliquis 2.5 mg tablet 2.5 mg PO BID Qty: 180 3RF (DME) FreeStyle Rossy 14 Day Sensor Kit See Rx Instructions .Route Qty: 1 5RF Rx Instructions: Testing BS 4-5 times per day magnesium oxide 400 mg magnesium capsule 400 mg PO QPM Qty: 90 0RF Hold Instructions: hypermagnesemia carvedilol 3.125 mg tablet 3.125 mg PO BID Qty: 180 3RF ranolazine 500 mg tablet extended release 12 hr 500 mg PO BID Qty: 180 3RF fluticasone propionate [Flonase Allergy Relief] 50 mcg/actuation spray,suspension 2 spray intranasal DAILY Qty: 16 3RF mirabegron 25 mg tablet extended release 24 hr 25 mg PO DAILY Qty: 30 2RF gabapentin 100 mg capsule 300 mg PO HS Qty: 90 1RF levothyroxine 75 mcg tablet 75 mcg PO QAM Qty: 90 1RF ondansetron HCl 4 mg tablet 4 mg PO Q8H PRN (Reason: nausea and vomiting) Qty: 30 0RF insulin asp prt-insulin aspart [Novolog Mix 70-30 U-100 Insuln] 100 unit/mL (70-30) solution 15 - 30 unit SUBCUT AMPM Qty: 30 5RF Rx Instructions: Per home sliding scale digoxin 125 mcg (0.125 mg) tablet 125 mcg PO 3XWK Qty: 36 1RF Rx Instructions: MONDAY/MONDAY/MONDAY IN THE AM Brilinta 90 mg tablet 90 mg PO BID Qty: 180 3RF sertraline 50 mg tablet 50 mg PO DAILY Qty: 90 1RF (DME) FreeStyle Rossy 14 Day [place] Misc See Rx Instructions .Route Qty: 6 1RF Rx Instructions: Testing BS 4-5 times per day vitamin E 400 unit capsule 400 unit PO QAM garlic 1,000 mg capsule 1,000 mg PO DAILY senna 8.6 mg capsule 8.6 mg PO DAILY PRN (Reason: constipation) Qty: 10 0RF polyethylene glycol 3350 [Miralax] 17 gram/dose Powder 17 g PO TID Qty: 119 0RF potassium gluconate 595 mg (99 mg) tablet 595 mg PO DAILY PRN (Reason: With Bumex) Rx Instructions: Take 1 tablet if you take a Bumex dose acetaminophen [Tylenol Extra Strength] 500 mg Tablet 1,000 mg PO Q8H PRN (Reason: pain) Qty: 30 0RF Rx Instructions: OTC Referrals Referrals: Ebony Alvarenga DO [Primary Care Provider] - Discharge Problem: Chest pain Qualifiers: Chest pain type: unspecified Qualified Code(s): R07.9 - Chest pain, unspecified
[2023-12-18 12:44] LABS: Basophils # (auto) 0.06 K/uL (0.00-0.20); Basophils % (auto) 0.5 %; Eosinophils # (auto) 0.31 K/uL (0.00-0.50); Eosinophils % (auto) 2.7 %; Hematocrit (blood only) 33.9 % (37.0-47.0); Hemoglobin 10.8 g/dl (12.0-16.0); Immature Granulocytes # (auto) 0.06 K/uL (0.01-0.20); Immature Granulocytes % (auto) 0.5 %; Lymphocytes # (auto) 2.15 K/uL (1.20-3.40); Lymphocytes % (auto) 18.6 %; Mean Corpuscular Hemoglobin 30.2 pg (25.0-34.0); Mean Corpuscular Hgb Conc 31.9 g/dL (32.0-36.0); Mean Corpuscular Volume 94.7 fL (80.0-100.0); Mean Platelet Volume 10.8 fL (9.4-12.4); Monocytes # (auto) 0.99 K/uL (0.11-0.59); Monocytes % (auto) 8.6 %; Neutrophils % (auto) 69.1 %; Platelet Count 290 K/uL (130-400); RDW Coefficient of Variation 14.2 % (11.5-14.5); RDW Standard Deviation 49.6 fL (36.4-46.3); Red Blood Count 3.58 M/uL (4.20-5.40); White Blood Count 11.57 K/ul (4.8-10.8)
[2023-12-18 12:58] LABS: Appearance Urine Cloudy (Clear); Bacteria Urine Automated Negative (Negative); Bilirubin Urine Negative (Negative); Blood Urine 3+ (Negative); Cast Urine Automated 0 /lpf (0-5); Color Urine Yellow; Epithelial Cell Urine Auto 0-5 /lpf (0-5); Glucose Urine UA Negative (Negative); Ketones Urine Negative (Negative); Leukocyte Esterase Urine 3+ (Negative); Nitrite Urine Negative (Negative); Specific Gravity Urine 1.009 (1.000-1.030); Urobilinogen Urine Negative (Negative); WBC Urine Automated >30 /hpf (0-5); pH Urine 7.5 (4.5-7.5)
[2023-12-18 13:04] LABS: Albumin Globulin Ratio 1.1 (0.9-2); Albumin Level 3.9 gm/dl (3.4-5.0); Bilirubin,Total 0.4 mg/dl (0.2-1.0); Calcium 9.2 mg/dl (8.6-10.3); Creatinine Clr Calc Pharmacy 24.1 ml/min; Est GFR (African American) 26.7 ml/min; Est GFR (Non-African American) 23.1 ml/min; Globulin 3.4 gm/dl (2.5-4.0); Potassium 4.2 mmol/L (3.5-5.1); Total Protein 7.3 gm/dl (6.0-8.3)
[2023-12-18 13:10] LABS: Protein Urine Trace (Negative); Troponin I High Sensitivity 40.7 pg/ml (0-14)
[2023-12-18 13:14] LABS: Prothrombin Time 11.1 Seconds (9.0-12.0)
--- NOTE | 2023-12-18 13:16 | XRay Report ---
SINGLE VIEW CHEST CLINICAL HISTORY: Atypical chest pain FINDINGS: An AP, portable, upright chest radiograph is compared to study dated 01/14/2023. A multilead cardiac AICD is unchanged in position and partially obscures the left mid chest. There is evidence of previous cardiac valve surgery. The heart is enlarged noting atherosclerotic calcification of the th oracic into. There is pulmonary vascular congestion with mild interstitial edema. There are small ple ural effusions with dependent consolidation. No pneumothorax is seen. The skeletal structures are ost eopenic. The bony thorax is grossly intact. Arthritic change is noted in the shoulders and spine. IMPRESSION: 1. Cardiomegaly with evidence of congestive failure and pulmonary edema. 2. Small pleural effusions with dependent consolidation. ACT 112: Negative or not required by law. Electronically signed by: Marcus East M.D. 12/18/2023 1:14 PM
[2023-12-18] MEDS: FUROSEMIDE 40 MG/4 ML VIAL IV ONE (13:38)
--- NOTE | 2023-12-18 14:11 | History & Physical Report ---
Date of Service December 18, 2023 Assessment & Plan (1) Chest pain: Plan: -Admit to med/surge on tele and pulse oximetry -Currently hemodynamically stable and stable on RA -Presented to the ED from the Cardiology clinic for ongoing GOMEZ/orthopnea, and an episode of BL chest tightness with left arm pain which lasted for approximately 20-30 min this am -At this time the patient's history, exam, imaging, and labs are most consistent with CHF exacerbation >Patient is volume overloaded on exam >Noted to have small BL pleural effusions and signs of pulmonary edema on CXR >Noted to have JVD and increased BL LE swelling right > left >Weight is up approximately 6 Kg since 11/14/23 -Patient is currently without symptoms at rest -Has been taking home medications as prescribed, including increased doses of PO Bumex (2mg BID) since 12/15/23 -Initial high sen trop was elevated at 40, has been in the 40-80's on previous admissions -2 hour high sen trop and BNP are in process -No acute ST segment or T-wave changes on ECG -Will start 0.5 inch Nitro paste to assist with pulmonary edema and any recurrent anginal symptoms -Continue BID Carvedilol -Obtaining urgent TTE and will consult Cardiology to follow -Will continue to trend high sne trop q6h overnight -S/P 40 mg IV lasix in the ED, will start 1mg IV bumex BID17 moving forward -Monitor intake/output and daily weights -Continue home Eliquis for DVT PPX -HH/DMII diet with 2gm sodium and 1800 mL fluid restriction -AM CBC, BMP, Mag, PT/INR (2) CHF exacerbation: Plan: -See Chest pain -Home Bumex dose is normally 1mg PO BID -Follows with Latrice Mcmanus in the CHF Clinic -Wean to PO diuretics when able (3) Elevated troponin: Plan: -Initial high sen trop of 40 -Likely due to demand from CHF but will continue to monitor for signs/symptoms of ACS -Will continue to treat CHF -Trend troponin and will monitor TTE -Cardiology consult placed (4) UTI (urinary tract infection): Plan: -Has been noting dysuria over the past 3 days -Urine today without significant signs of contamination, will treat for UTI starting today -Will start Ceftriaxone on admission -Follow urine clotures (5) Dyspnea on exertion: Plan: -Likely due to progressive CHF exacerbation but cannot rule out ACS at this time -Rest of plan per chest pain plan (6) DM II (diabetes mellitus, type II), controlled: Plan: -Monitor BSG ACHS, goal is 110-160 -Start 5 units lantus BID and CF of 50 ACHS -Will hold home 70/30 for now -HH/DMII diet -Adjust regimen as needed (7) Hypothyroidism: Plan: -Continue levothyroxine (8) Chronic obstructive pulmonary disease, unspecified: Plan: -Stable on RA -Lungs without wheezing -Incentive spirometry (9) CAD (coronary artery disease): Plan: -Continue Brilinta -Continue Carvedilol (10) PAF (paroxysmal atrial fibrillation): Plan: -Currently in ventricular paced rhythm -Continue Eliquis and Carvedilol Plan The patient was discussed with Dr. Lopez at the time of the admission History of Present Illness Chief Complaint: GOMEZ, chest pain, volume overload, urinary symptoms Primary Care Provider: Ebony Alvarenga DO Ban is an 83 yo female with PMH of HLD, NSTEMI, CVA, paroxysmal afib (on Eliquis), CKD, HFrEF (LVEF of 40-45%), biventricular ICD in place, aortic stenosis s/p TAVR, PAD s/p stenting, Hypothyroidism, Interstitial Lung Dx, Pulmonary HTN, COPD, insulin dependent DMII, and bilateral carotid artery stenosis who presented to the [facility] ED via EMS on 12/18/23 with complaints of ongoing SOB/GOMEZ, substernal chest pressure, and signs of CHF exacerbation on exam. She was noted to be hypertensive at 178/83 on arrival but otherwise stable. Labs were significant for a leukocytosis of 11 with neutrophil predominance of 8, stable renal function, initial high sen trop of 40, and UA with cloudy appearance,. 3+ blood, nitrite negative, 3+ leukocyte esterase, >30 WBC, 10-30 RBC, and bacteria negative. Chest xray was read as "1.Cardiomegaly with evidence of congestive failure and pulmonary edema. 2. Small pleural effusions with dependent consolidation.". ECG shows a ventricular paced rhythm without acute ST segment or T-wave changes. Prior to admission the patient was given 40 mg IV Lasix. At the time of the exam the patient was sitting in bed in no acute distress. she states that over the past 2-3 weeks she has been experiencing progressive GOMEZ, orthopnea, weight gain, and swelling. She normally takes 1mg PO Bumex BID but had been taking 2mg PO BID since 12/15/23 as instructed by the CHF clinic for increased swelling/weight gain without improvement. She watches her sodium and fluid intake closely as well. This am while driving to the Cardiology clinic she developed acute onset of chest pressure across the BL upper chest, increased SOB, and left arm pain from the left elbow down to the left wrist. These symptoms lasted for approximately 20-30 min prior to the Cardiology Clinic arrival. She denies any pain/discomfort in the neck, jaw, or back. When asked, she states that she is still having intermittent episodes of mild chest tightness since arrival, these were exacerbated when she walked to the bathroom earlier. She has noted dysuria over the past 2-3 days but denies fever, chills, cough, nausea, vomiting, abd pain, hematuria, melena, and recent trauma. We discussed code status, she wishes to be a full code and for her children to make medical decisions for her if she cannot make them herself. When asked, she states that her RLE has always been more swollen than the left since her right knee replacement. Please refer to Dr. Lopez's attestation for any changes to the treatment plan Allergies Allergy/AdvReac Type Severity Reaction Status Date / Time adhesive Allergy Intermediate REDNESS Verified 12/18/23 11:03 AND IRRITATION FROM PAIN PATCH, TAPE latex Allergy Intermediate ALLERGIC Verified 12/18/23 11:03 TO LATEX TAPE/RASH/ITCHING morphine Allergy Intermediate swelling Verified 12/18/23 11:03 nausea vomiting olmesartan Allergy Unknown UNKNOWN Verified 12/18/23 11:03 benzonatate AdvReac Intermediate confusion Verified 12/18/23 11:03 [From Tessalon Perles] dulaglutide [From Trulicity] AdvReac Intermediate AFFECTS Verified 12/18/23 11:03 MUSCLES exenatide [From Byetta] AdvReac Intermediate Diarrhea Verified 12/18/23 11:03 ezetimibe AdvReac Intermediate MUSCLE Verified 12/18/23 11:03 ACHES glipizide AdvReac Intermediate Diarrhea Verified 12/18/23 11:03 glyburide AdvReac Intermediate Diarrhea Verified 12/18/23 11:03 lisinopril AdvReac Intermediate LIGHTHEADED Verified 12/18/23 11:03 AND DIZZY losartan AdvReac Intermediate dizziness Verified 12/18/23 11:03 metformin AdvReac Intermediate Diarrhea Verified 12/18/23 11:03 pioglitazone AdvReac Intermediate DIARRHEA Verified 12/18/23 11:03 NAUSEA sitagliptin [From ] AdvReac Intermediate Diarrhea Verified 12/18/23 11:03 Glcmtbu-VNE-UwZ Reductase AdvReac Intermediate myalgias Verified 12/18/23 11:03 Inhibitor and [Nfgulhu-Kcu-Wob Reductase weakness Inhibitor] aspirin AdvReac Mild GI SYMPTOMS Verified 12/18/23 11:03 Home Medications Medication Instructions Recorded Confirmed Type magnesium oxide 400 mg PO QPM #90 caps 04/01/19 12/18/23 Rx vitamin E 268 mg (400 unit) capsule 400 unit PO QAM 03/29/20 12/18/23 History cholecalciferol (vitamin D3) 25 1,000 unit PO QAM 05/17/21 12/18/23 History mcg (1,000 unit) capsule trazodone 50 mg tablet 50 mg PO HS PRN insomnia #90 tabs 06/23/22 12/18/23 Rx insulin aspar prt-insulin aspart 15 - 30 unit (0.15 - 0.3 mL) 11/28/22 12/18/23 Rx 100 unit/mL (70-30) subcutaneous subcut AMPM #30 mL soln (Novolog Mix 70-30 U-100 Insuln) polyethylene glycol 3350 17 17 g PO TID #119 grams 12/23/22 12/18/23 Rx gram/dose oral powder (Miralax) sennosides 8.6 mg capsule (senna) 8.6 mg PO DAILY PRN constipation 12/23/22 12/18/23 Rx #10 caps carvedilol 3.125 mg tablet 3.125 mg PO BID #180 tabs 04/27/23 12/18/23 Rx garlic 1,000 mg capsule 1,000 mg PO DAILY 05/29/23 12/18/23 History pantoprazole 40 mg tablet,delayed 40 mg PO BID #180 tabs 06/26/23 12/18/23 Rx release (Protonix) digoxin 125 mcg (0.125 mg) tablet 125 mcg PO 3XWK #36 tabs 07/24/23 12/18/23 Rx flash glucose scanning reader #6 ea 07/24/23 12/18/23 Rx (FreeStyle Rossy 14 Day [place]) sertraline 50 mg tablet 50 mg PO DAILY #90 tabs 07/24/23 12/18/23 Rx ticagrelor 90 mg tablet (Brilinta) 90 mg PO BID #180 tabs 07/24/23 12/18/23 Rx potassium gluconate 595 mg (99 mg) 595 mg PO DAILY PRN With Bumex 08/25/23 12/18/23 History tablet fluticasone propionate 50 2 spray intranasal DAILY #16 grams 09/06/23 12/18/23 Rx mcg/actuation nasal spray,suspension (Flonase Allergy Relief) bumetanide 1 mg tablet 1 mg PO BID Shortness of 09/11/23 12/18/23 Rx breath/weight gain #180 tabs mirabegron 25 mg tablet,extended 25 mg PO DAILY #30 tabs 09/18/23 12/18/23 Rx release 24 hr gabapentin 100 mg capsule 300 mg (3 x 100 mg) PO HS #90 caps 10/23/23 12/18/23 Rx levothyroxine 75 mcg tablet 75 mcg PO QAM #90 tabs 10/27/23 12/18/23 Rx ondansetron HCl 4 mg tablet 4 mg PO Q8H PRN nausea and 10/27/23 12/18/23 Rx vomiting #30 tabs apixaban 2.5 mg tablet (Eliquis) 2.5 mg PO BID #180 tabs 10/30/23 12/18/23 Rx calcitriol 0.25 mcg capsule 0.25 mcg PO 3XWK #12 caps 10/30/23 12/18/23 Rx (Rocaltrol) insulin syringe-needle U-100 0.3 #100 ea 10/30/23 12/18/23 Rx mL 31 gauge x 5/16" acetaminophen 500 mg tablet 1,000 mg (2 x 500 mg) PO Q8H PRN 11/02/23 12/18/23 Rx (Tylenol Extra Strength) pain #30 tabs ranolazine 500 mg tablet,extended 500 mg PO BID #180 tabs 11/14/23 12/18/23 Rx release,12 hr flash glucose sensor (FreeStyle #1 ea 11/24/23 12/18/23 Rx Rossy 14 Day Sensor kit) Past Med/Surg History Medical History Osteoarthritis Orthostasis Hyperlipidemia Acute kidney injury superimposed on chronic kidney disease Non-ST elevation OR (NSTEMI) Depression Nausea and vomiting after administration of anesthetic agent PAF (paroxysmal atrial fibrillation) History of CVA (cerebrovascular accident) Breast cancer, right Subclavian artery stenosis Rheumatoid arthritis Chronic kidney disease Diabetes mellitus, type 2 SOB (shortness of breath) on exertion DVT (deep venous thrombosis) Ischemic cardiomyopathy Insomnia Biventricular ICD (implantable cardioverter-defibrillator) in place (04/30/20) Antiplatelet or antithrombotic long-term use Secondary hyperparathyroidism of renal origin Anemia due to chronic kidney disease Chronic obstructive pulmonary disease, unspecified CAD (coronary artery disease) Aortic stenosis, severe PAD (peripheral artery disease) Spondylosis Pulmonary hypertension NSTEMI (non-ST elevated myocardial infarction) Chronic combined systolic and diastolic CHF (congestive heart failure) GERD (gastroesophageal reflux disease) Hypothyroidism Left bundle branch block Bilateral carotid artery stenosis Surgical History S/P AV hiren ablation (06/30/22) H/O heart artery stent H/O colonoscopy History of left-sided carotid endarterectomy (09/27/21) Status post partial mastectomy of right breast (09/17/21) History of cardiac cath S/P coronary artery stent placement (10/2018) S/P coronary artery stent placement (10/2017) S/P carotid endarterectomy S/P thoracentesis (03/2020) S/P angioplasty (02/03/21) 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) History of oophorectomy History of hysterectomy History of cholecystectomy H/O: section History of cataract surgery History of appendectomy Family History Daughter Coronary heart disease Diabetes Mother Diabetes Family history of hypercholesterolemia Myocardial infarction Hypertension Stroke Brother Colorectal cancer Father Accident Brother Diabetes Family/Other Myocardial infarction Son Coronary heart disease Hypertension Other Pacemaker Denies family history of Ovarian cancer Prostate cancer Breast cancer Social History Smoking Status: Never smoker Second Hand Exposure: No; Do You Dip or Chew Tobacco: No; Hx Alcohol Use: No Hx Substance Use: No Preferred Language: Sinhala Communication Ability: Effective Visual Impairment: No Limitations Hearing Ability: Hard of Hearing Warehouse Guard Required: No Beliefs That Will Affect Care: None marital status: / marital status details: passed 2000 Current Living Situation: Alone current occupational status: retired 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 How many Children do You have: 2 Feels Safe at Home: Yes Diet: regular caffeine: Yes (1 cup/day) during the past year weight has: remained stable Dental Care, Regularly: No Physical Activity Frequency: Daily Seatbelt Use: always Assistive Devices: Cane and Walker Physical Exam Physical Exam: Physical Exam: General: In no acute distress, stated age, well-nourished, non-toxic appearing HEENT: Normocephalic, atraumatic, no scleral icterus, pupils around round, symmetrical, and reactive to light, moist mucus membranes, + JVD, trachea midline, no thyromegaly Chest/Pulm: No respiratory distress, symmetrical chest expansion, decreased breath sounds in the BL lower lung humphries with crackles noted in the BL lower and mid lung humphries Cardiac: RRR, 3/6 systolic murmur noted Abdomen: Negative for ascites and bruising, normoactive bowel sounds, soft, mildly tender to palpation in the suprapubic region but otherwise non-tender Musculoskeletal: Symmetrical and without signs of acute trauma, upper and lower extremities with full ROM, no atrophy, spasticity, or flaccidity Extremities: Radial, dorsalis pedis, and posterior tibial pulses are intact and symmetrical, RLE with increased swelling compared to left is at baseline per patient Skin: Warm, dry, no rashes , lesions, or scars noted Neuro: Alert and oriented to person, place, month, year, and president, no focal defects, no tremors noted Psych: No acute distress, calm and cooperative during the exam Results & Data Results & Data Vital Signs (Past 12 Hours) Vital Signs Temp Pulse Pulse Resp BP BP Pulse Ox 12/18/23 13:36 70 17 178/83 H 93 12/18/23 12:54 70 18 94 12/18/23 12:16 12/18/23 12:09 88 12/18/23 12:06 36.6 C 90 12 170/95 H 97 O2 Del Method 12/18/23 13:36 Room Air 12/18/23 12:54 Room Air 12/18/23 12:16 Room Air 12/18/23 12:09 12/18/23 12:06 Laboratory Results Abnormal lab results 12/18/23 Range/Units 12:11 WBC 11.57 H (4.8-10.8) K/ul RBC 3.58 L (4.20-5.40) M/uL Hgb 10.8 L (12.0-16.0) g/dl Hct 33.9 L (37.0-47.0) % MCHC 31.9 L (32.0-36.0) g/dL RDW Std Deviation 49.6 H (36.4-46.3) fL Neut # (Auto) 8.00 H (1.40-6.50) K/uL [place] # (Auto) 0.99 H (0.11-0.59) K/uL BUN 41 H (6-23) mg/dl Creatinine 1.95 H (0.6-1.2) mg/dl BUN/Creatinine Ratio 21.0 H (10-20) Glucose 133 H (70-99(Fasting)) mg/dl Alkaline Phosphatase 123 H (34-104) U/L Troponin I High Sens 40.7 H (0-14) pg/ml Urine Appearance Cloudy A (Clear) Urine Protein Trace H (Negative) Urine Blood 3+ H (Negative) Ur Leukocyte Esterase 3+ H (Negative) Urine WBC (Auto) >30 H (0-5) /hpf Urine RBC (Auto) 10-30 H (0-4) /hpf Urine Yeast Present A (None Prsent) Diagnostic Findings Chest X-Ray 12/18/23 12:15 SINGLE VIEW CHEST CLINICAL HISTORY: Atypical chest pain FINDINGS: An AP, portable, upright chest radiograph is compared to study dated 01/14/2023. A multilead cardiac AICD is unchanged in position and partially obscures the left mid chest. There is evidence of previous cardiac valve surgery. The heart is enlarged noting atherosclerotic calcification of the thoracic into. There is pulmonary vascular congestion with mild interstitial edema. There are small pleural effusions with dependent consolidation. No pneumothorax is seen. The skeletal structures are osteopenic. The bony thorax is grossly intact. Arthritic change is noted in the shoulders and spine. IMPRESSION: 1. Cardiomegaly with evidence of congestive failure and pulmonary edema. 2. Small pleural effusions with dependent consolidation. ACT 112: Negative or not required by law. Electronically signed by: Marcus East M.D. 12/18/2023 1:14 PM ECG Additional Comments: Ventricular-paced rhythm Biventricular pacemaker detected Abnormal ECG When compared with ECG of 14-JAN-2023 11:34, Vent. rate has decreased BY 16 BPM Code Status & VTE Plan Code Status Full code VTE Prophylaxis Plan VTE Prophylaxis will be ordered: Yes Supervising Physician Co-Signing Physician Notes Patient seen and examined, chart reviewed, case discussed with Yao Johnson PA-C and I agree with the assessment and plan as above except as otherwise noted Labs and images reviewed 83yo F with a PMHx of HFpEF, CKD, pAfib, post TAVR, and DM who presents with 30 seconds of a squeezing pressure across the top of her chest when she was going to her cardiology visit, was referred to the ER for further assessment. Episode occured at rest, and was very short of breath on attempted ambulation outpatient and pt was referred for ?unstable angina. EKG in office paced with no obvious ischemic/morphology change. Patient has 10+ pounds of weight loss differential included acute on chronic CHF. She is anticoagulated and compliant with Eliquis. While in the ER she had a mildly increased troponin of 40.7 which was trended, chest x-ray showed cardiomegaly with evidence of acute pulmonary edema and congestive failure with small pleural effusions, BNP pending, Patient weight 95.5, last dry weight approximately 89-90 kg. On admit pt reports 2 weeks of progressive leg swelling, orthopnea, fatigue, and 1-2lb/day weight gain despite taking 1mg BID bumex in addition to +1mg extra BID since monday. While walking to cards office today had chest pain into L arm. This occured on exertion, but notes she did have some discomfort while she was at rest in the car as well. CP nearly completely resolved at time of ER assessment, but still with 'nearly gone but very slight' pain in her L breast. +nitro paste added. Pt reports she cannot take nitro SL due to headache. Took tigarelor and eliquis this AM. Agree with admission, troponin trend, and diuresis for suspected acute CHF. Infected appearing UA, has had UTI sx. Agree with treatment for UTI as above PG Care Time/CCT Total # of Minutes Spent Total Time Spent with Patient: Total time spent is greater than 50% in coordination of care (as documented) at patient's floor/unit and/or counseling patient: Coding [place] [address] INT INP/OBS CARE 3/75MIN Patient Type Established History Comprehensive Exam Comprehensive Medical Decision Making High Complexity Diagnoses Chest pain R07.9 Chest pain type: unspecified CHF exacerbation I50.9 Elevated troponin R77.8 UTI (urinary tract infection) N39.0 Dyspnea on exertion R06.09 Controlled type 2 diabetes mellitus with diabetic nephropathy, with long-term current use of insulin E11.21; Z79.4 Diabetes mellitus correction insulin use: with bend sorter use Diabetes mellitus complication status: with kidney complications Diabetes mellitus complication detail: with nephropathy Acquired hypothyroidism E03.9 Hypothyroidism type: acquired Chronic obstructive pulmonary disease, unspecified J44.9 CAD (coronary artery disease) I25.10 PAF (paroxysmal atrial fibrillation) I48.0 (1) Chest pain Chest pain type: unspecified Qualified Code(s): R07.9 - Chest pain, unspecified (6) DM II (diabetes mellitus, type II), controlled Diabetes mellitus correction insulin use: with correction use Diabetes mellitus complication status: with kidney complications Diabetes mellitus complication detail: with nephropathy Qualified Code(s): E11.21 - Type 2 diabetes mellitus with diabetic nephropathy; Z79.4 - snf (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 (7) Hypothyroidism Hypothyroidism type: acquired Qualified Code(s): E03.9 - Hypothyroidism, unspecified
[2023-12-18] MEDS ORDERED: CARBOHYDRATES FOR HYPOGLYCEMIA PO PRN (14:50)
[2023-12-18] MEDS ORDERED: DEXTROSE 50% 50 ML SYRINGE IV PRN (14:50)
[2023-12-18] MEDS ORDERED: GLUCAGON FOR INJ 1 MG VIAL SQ PRN (14:50)
[2023-12-18] MEDS ORDERED: GLUCOSE 10 TAB/TUBE PO PRN (14:50)
[2023-12-18] MEDS ORDERED: GLUCOSE 40% GEL 15 GM TUBE PO PRN (14:50)
[2023-12-18] MEDS: cefTRIAXone SODIUM 2,000 MG in DEXTROSE 5 % MINI-B 50 ML IV STA (15:14)
[2023-12-18] MEDS: NITROGLYCERIN 2% OINTMENT 30GM TUBE EXT ONE (15:18)
--- NOTE | 2023-12-18 16:11 | Cardiology Consultation ---
Date of Consultation December 18, 2023 Assessment & Plan (1) Heart failure with mildly reduced ejection fraction (HFmrEF): (2) Chest pain: (3) CAD (coronary artery disease): (4) Mitral regurgitation: (5) CKD (chronic kidney disease) stage 4, GFR 15-29 ml/min: (6) S/P TAVR (transcatheter aortic valve replacement): (7) Biventricular ICD (implantable cardioverter-defibrillator) in place: (8) Hx of atrioventricular node ablation: Plan 83-year-old woman with complex cardiac history and borderline renal function admitted with evidence of progressive volume overload culminating in an episode of chest discomfort. Despite multiple prior coronary stents, she does have significant small vessel/borderline remaining occlusive coronary artery disease which would predispose her to anginal symptoms in the context of hypertension/volume overload. Given troponin values at the low end of her historical range and alternative explanation for her anginal type symptoms, doubt acute thrombotic event, particularly since she is chronically anticoagulated with apixaban (reduced dose due to renal insufficiency and age). As noted by Dr. Cueva, would attempt to manage her anginal symptoms medically rather than through early intervention given her renal insufficiency, known small/branch vessel disease, and unfavorable but correctable hemodynamics/volume load. Immediate focus is to volume unload through diuretics and to manage hypertension. Surprisingly, she seems to be responding to the furosemide 40 mg IV, however would not rely on this given her outpatient diuretic resistance (2 mg bumetanide twice daily was ineffective). Would temporarily increase diuretics to bumetanide 3 mg IV twice daily initially to aggressively diurese while inpatient. She does have a history of orthostasis/hypotension requiring discontinuation of multiple vasoactive medications (Entresto, ARB, etc.), tolerating only low-dose of carvedilol (3.125 mg twice daily). Would continue carvedilol, could temporarily increase carvedilol dose to 6.25 mg twice daily. In addition, agree with Nitropaste (could increase to 1 inch every 6), would also use oral or IV hydralazine to further reduce blood pressure/manage hypertension (goal SBP<130 mmHg). She is status post AV hiren ablation and has a pacemaker, so rate control for atrial fibrillation should not be an issue. Digoxin should be held until a level is checked (although has not been supratherapeutic at similar creatinine levels). Continue ticagrelor and ranolazine for CAD, if renal function deteriorates would need to hold ranolazine. She has not been on a statin for many years due to intolerance. Will continue to follow her as inpatient, along with Urmila Mcmanus PA-C from a heart failure standpoint. History of Present Illness Reason for Consultation: chest pain, GOMEZ, CHF Requesting Physician: Kin Lopez MD Attending Physician: Kin Lopez MD History of Present Illness 83-year-old woman with history of CAD (multiple remote stents/last 2019, see Dr. Cueva's outpatient cardiology notes for details), ischemic cardiomyopathy (most recent EF 40-45% 2022), moderate to severe mitral regurgitation, chronic HFrEF (home diuretic regimen bumetanide 1-2 mg twice daily), status post TAVR 2019, permanent atrial fibrillation/status post AV hiren ablation (apixaban/carvedilol/digoxin), biventricular pacemaker/ICD 2019, stage IV chronic kidney disease, and PAD, who was admitted today (12/18/2023) with progressive dyspnea/weight gain (up 13 pounds over the past month)/evidence of volume overload, chest pain with minimal troponin elevation (40.7 and 43.1), and dysuria/apparent UTI. And most recent healthy baseline she notes that she can do gardening, housework, and other activities of daily living without dyspnea or chest discomfort. However, for the past several weeks she has noted increasing weight, orthopnea with occasional PND, worsening dyspnea on exertion, and today experienced about 1/2-hour of significant chest discomfort. She still notes very mild residual "tightness", but her chest symptoms are much improved since ER presentation, application of Nitropaste, and receiving IV diuretic. Aside from minimal chest tightness, she has no current somatic complaints at rest. She notes that she does become dyspneic walking to the bathroom and back. Oxygenation is adequate (93%) without supplemental oxygen. Rhythm is ventricular paced at 70 bpm, BP remains moderately hypertensive. Allergies Allergy/AdvReac Type Severity Reaction Status Date / Time adhesive Allergy Intermediate REDNESS Verified 12/18/23 11:03 AND IRRITATION FROM PAIN PATCH, TAPE latex Allergy Intermediate ALLERGIC Verified 12/18/23 11:03 TO LATEX TAPE/RASH/ITCHING morphine Allergy Intermediate swelling Verified 12/18/23 11:03 nausea vomiting olmesartan Allergy Unknown UNKNOWN Verified 12/18/23 11:03 benzonatate AdvReac Intermediate confusion Verified 12/18/23 11:03 [From Giovanni Brennan] dulaglutide [From Trulicity] AdvReac Intermediate AFFECTS Verified 12/18/23 11 :03 MUSCLES exenatide [From Byetta] AdvReac Intermediate Diarrhea Verified 12/18/23 11:03 ezetimibe AdvReac Intermediate MUSCLE Verified 12/18/23 11:03 ACHES glipizide AdvReac Intermediate Diarrhea Verified 12/18/23 11:03 glyburide AdvReac Intermediate Diarrhea Verified 12/18/23 11:03 lisinopril AdvReac Intermediate LIGHTHEADED Verified 12/18/23 11:03 AND DIZZY losartan AdvReac Intermediate dizziness Verified 12/18/23 11:03 metformin AdvReac Intermediate Diarrhea Verified 12/18/23 11:03 pioglitazone AdvReac Intermediate DIARRHEA Verified 12/18/23 11:03 NAUSEA sitagliptin [From Januvia] AdvReac Intermediate Diarrhea Verified 12/18/23 11:03 Poiwsbe-MAD-JnO Reductase AdvReac Intermediate myalgias Verified 12/18/23 11:03 Inhibitor and [Ubxfclu-Njt-Csb Reductase weakness Inhibitor] aspirin AdvReac Mild GI SYMPTOMS Verified 12/18/23 11:03 Home Medications Medication Instructions Recorded Confirmed Type magnesium oxide 400 mg PO QPM #90 caps 04/01/19 12/18/23 Rx vitamin E 268 mg (400 unit) capsule 400 unit PO QAM 03/29/20 12/18/23 History cholecalciferol (vitamin D3) 25 1,000 unit PO QAM 05/17/21 12/18/23 History mcg (1,000 unit) capsule trazodone 50 mg tablet 50 mg PO HS PRN insomnia #90 tabs 06/23/22 12/18/23 Rx insulin aspar prt-insulin aspart 15 - 30 unit (0.15 - 0.3 mL) 11/28/22 12/18/23 Rx 100 unit/mL (70-30) subcutaneous subcut AMPM #30 mL soln (Novolog Mix 70-30 U-100 Insuln) polyethylene glycol 3350 17 17 g PO TID #119 grams 12/23/22 12/18/23 Rx gram/dose oral powder (Miralax) sennosides 8.6 mg capsule (senna) 8.6 mg PO DAILY PRN constipation 12/23/22 12/18/23 Rx #10 caps carvedilol 3.125 mg tablet 3.125 mg PO BID #180 tabs 04/27/23 12/18/23 Rx garlic 1,000 mg capsule 1,000 mg PO DAILY 05/29/23 12/18/23 History pantoprazole 40 mg tablet,delayed 40 mg PO BID #180 tabs 06/26/23 12/18/23 Rx release (Protonix) digoxin 125 mcg (0.125 mg) tablet 125 mcg PO 3XWK #36 tabs 07/24/23 12/18/23 Rx flash glucose scanning reader #6 ea 07/24/23 12/18/23 Rx (FreeStyle Rossy 14 Day [place]) sertraline 50 mg tablet 50 mg PO DAILY #90 tabs 07/24/23 12/18/23 Rx ticagrelor 90 mg tablet (Brilinta) 90 mg PO BID #180 tabs 07/24/23 12/18/23 Rx potassium gluconate 595 mg (99 mg) 595 mg PO DAILY PRN With Bumex 08/25/23 12/18/23 History tablet fluticasone propionate 50 2 spray intranasal DAILY #16 grams 09/06/23 12/18/23 Rx mcg/actuation nasal spray,suspension (Flonase Allergy Relief) bumetanide 1 mg tablet 1 mg PO BID Shortness of 09/11/23 12/18/23 Rx breath/weight gain #180 tabs mirabegron 25 mg tablet,extended 25 mg PO DAILY #30 tabs 09/18/23 12/18/23 Rx release 24 hr gabapentin 100 mg capsule 300 mg (3 x 100 mg) PO HS #90 caps 10/23/23 12/18/23 Rx levothyroxine 75 mcg tablet 75 mcg PO QAM #90 tabs 10/27/23 12/18/23 Rx ondansetron HCl 4 mg tablet 4 mg PO Q8H PRN nausea and 10/27/23 12/18/23 Rx vomiting #30 tabs apixaban 2.5 mg tablet (Eliquis) 2.5 mg PO BID #180 tabs 10/30/23 12/18/23 Rx calcitriol 0.25 mcg capsule 0.25 mcg PO 3XWK #12 caps 10/30/23 12/18/23 Rx (Rocaltrol) insulin syringe-needle U-100 0.3 #100 ea 10/30/23 12/18/23 Rx mL 31 gauge x 02/28" acetaminophen 500 mg tablet 1,000 mg (2 x 500 mg) PO Q8H PRN 11/02/23 12/18/23 Rx (Tylenol Extra Strength) pain #30 tabs ranolazine 500 mg tablet,extended 500 mg PO BID #180 tabs 11/14/23 12/18/23 Rx release,12 hr flash glucose sensor (FreeStyle #1 ea 11/24/23 12/18/23 Rx Rossy 14 Day Sensor kit) Patient History Medical History Osteoarthritis Orthostasis Hyperlipidemia Acute kidney injury superimposed on chronic kidney disease Non-ST elevation PR (NSTEMI) Depression Nausea and vomiting after administration of anesthetic agent severe PONV s/p Left carotid surgery 09/27/21 at [facility] PAF (paroxysmal atrial fibrillation) History of CVA (cerebrovascular accident) Had RUE weakness and numbness after 09/17/21 breast surgery- CT scan of head negative; unable to do MRI due to ICD Per PCP records 10/22/21= "Huggins her post op RUE sx related to possible small stroke/TIA" Breast cancer, right Right breast mastectomy 09/17/21 at [facility] Subclavian artery stenosis Rheumatoid arthritis No medications Followed with rheum in the past- no recent issues Chronic kidney disease STAGE IV-F/U DR SALINAS Diabetes mellitus, type 2 Glucose fluctuates SOB (shortness of breath) on exertion DVT (deep venous thrombosis) LOWER LEG 2019 Ischemic cardiomyopathy Insomnia Biventricular ICD (implantable cardioverter-defibrillator) in place (04/30/20) [employer] implanted 04/30/2020. Capped right ventricular pacing lead Last check 09/2021 Antiplatelet or antithrombotic long-term use Secondary hyperparathyroidism of renal origin Anemia due to chronic kidney disease Chronic obstructive pulmonary disease, unspecified Breathing stable CAD (coronary artery disease) F/U DR CUEVA S/p NATY x 1 to Cx in 2019; NATY to ostial LM 01/10/20 Aortic stenosis, severe S/p TAVR 10/2019 PAD (peripheral artery disease) S/p [employer] SALESPERSON and stenting of right SFA, and [employer] SAL[employer] of left SFA and common femoral artery Spondylosis Pulmonary hypertension RVSP 40-45mmHg on 10/2020 ECHO NSTEMI (non-ST elevated myocardial infarction) Most recent 12/2019 (mild per patient) Chronic combined systolic and diastolic CHF (congestive heart failure) EF 40% per 10/16/21 ECHO GERD (gastroesophageal reflux disease) Hypothyroidism Left bundle branch block Bilateral carotid artery stenosis H/o bilateral CEAs in 2016 Per 07/2021 vascular note- carotid ultrasound from office visit showed patent right CEA with velocities suggesting 50-59% stenosis restenosis Patent left CEA with velocities suggesting 99% restenosis - had re-do of left CEA 09/27/21 Surgical History S/P AV hiren ablation (06/30/22) H/O heart artery stent H/O colonoscopy History of left-sided carotid endarterectomy (09/27/21) redo L CEA, Dr Bateman Status post partial mastectomy of right breast (09/17/21) 09/17/21 - Done under GA with LMA #4. Atraumatic LMA insertion. Magnet placed secondary to pacemaker. Right Breast Partial Mastectomy with [employer] [employer] Data Coordinator Localization, Right Axillary [place] Lymph Node Biopsy(Right) - Hua Acosta DO History of cardiac cath TOTAL 6? STENTS- 2018 and 2019 S/P coronary artery stent placement (10/2018) NATY prox mid LAD S/P coronary artery stent placement (10/2017) NATY to mid LAD S/P carotid endarterectomy B/l 2016 S/P thoracentesis (03/2020) b/l d/t CHF S/P angioplasty (02/03/21) [employer] SAL[employer] L SFA 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) History of oophorectomy History of hysterectomy History of cholecystectomy H/O: section History of cataract surgery right and left History of appendectomy Family History Daughter Coronary heart disease Cardiac stent Diabetes Mother , 83yo Diabetes Family history of hypercholesterolemia Myocardial infarction Hypertension Stroke Brother Colorectal cancer 1/2 brother Father , Accident in war Brother Diabetes 1/2 brother;Complications of DM Family/Other Myocardial infarction 1/2 sister Son Coronary heart disease Cardiac stent Hypertension Other Pacemaker Denies family history of Ovarian cancer Prostate cancer Breast cancer Social History Smoking Status: Never smoker Second Hand Exposure: No; Do You Dip or Chew Tobacco: No; Hx Alcohol Use: No Hx Substance Use: No Preferred Language: Georgian Communication Ability: Effective Visual Impairment: No Limitations Hearing Ability: Hard of Hearing Lead Web Application Developer Required: No Beliefs That Will Affect Care: None marital status: / marital status details: passed 2000 Current Living Situation: Alone current occupational status: retired 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 Afebrile. BP 178/83 mmHg. Pulse 70 bpm and regular. Respirations 17 and unlabored. Skin: Chronic pretibial stasis changes, no generalized lesions. HEENT: unremarkable. Neck: Jugular venous pulse three quarters of the way to the angle of the jaw at 90 degrees, bilateral transmitted carotid murmur. Lungs: Mildly decreased breath sounds with bibasilar crackles, no wheezing or accessory muscle use. Cardiac: regular rhythm, intact aortic closure sound, 3/6 crescendo decrescendo systolic ejection murmur right upper sternal border rating to the carotids, 3/6 apical holosystolic murmur rating to the axilla, no diastolic murmur. Abdomen: benign. Extremities: 1+ right pretibial edema, trace left pretibial edema, radial pulses intact, lower extremity pulses not readily palpable but her feet are warm Neurologic: normal affect and conversation, nonfocal. Results & Data Laboratory Results Troponins as noted. WBC 11.57, hemoglobin 10.8, normal platelet count. Normal electrolytes, BUN 41, creatinine 1.95 (recent baseline 2.07). BNP 553 (range over the past 2 years [id number]). Diagnostic Findings Chest x-ray shows cardiomegaly with moderate pulmonary vascular congestion and small bilateral pleural effusions. Telemetry shows ventricular paced rhythm at 70 bpm. Office ECG is described as ventricular pacing with no changes and secondary ST abnormalities compared with prior tracings. Remote telemetry monitoring notes 100% atrial fibrillation with elevated OptiVol. PG Care Time/CCT Total # of Minutes Spent Total Time Spent with Patient: Total time spent is greater than 50% in coordination of care (as documented) at patient's floor/unit and/or counseling patient: Coding Level of Care Code 92503 INT INP/OBS CARE 3/75MIN Diagnoses Heart failure with mildly reduced ejection fraction (HFmrEF) I50.22 Chest pain R07.9 Chest pain type: unspecified CAD (coronary artery disease) I25.10 Mitral regurgitation I34.0 CKD (chronic kidney disease) stage 4, GFR 15-29 ml/min N18.4 S/P TAVR (transcatheter aortic valve replacement) Z95.2 Biventricular ICD (implantable cardioverter-defibrillator) in place Z95.810 Hx of atrioventricular node ablation Z98.890 (2) Chest pain Chest pain type: unspecified Qualified Code(s): R07.9 - Chest pain, uns pecified
[2023-12-18] MEDS: INSULIN ASPART PER UNIT CHARGE SC SCH (18:09)
[2023-12-18] MEDS: DIGOXIN 0.125 MG TAB PO SCH (18:12)
[2023-12-18] MEDS: BUMETANIDE 3 MG in SYRINGE 0 ML IV SCH (18:13)
[2023-12-18] MEDS: BUMETANIDE 1 MG in SYRINGE 0 ML IV SCH (18:28)
--- NOTE | 2023-12-18 19:06 | XCELERA ---
[id number]
[2023-12-18] MEDS: carvediloL 3.125 MG TAB PO SCH (20:48)
[2023-12-18] MEDS: PANTOprazole 40 MG TAB PO SCH (20:48)
[2023-12-18] MEDS: RANOLAZINE 500 MG ER TAB PO SCH (20:48)
[2023-12-18] MEDS: TICAGRELOR 90 MG TAB PO SCH (20:48)
[2023-12-18] MEDS: LANTUS PER UNIT CHARGE SQ SCH (20:48)
[2023-12-18] MEDS: GABAPENTIN 300 MG CAP PO SCH (20:48)
[2023-12-18] MEDS: APIXABAN 2.5 MG TAB PO SCH (20:48)
[2023-12-18] MEDS ORDERED: NITROGLYCERIN 2% OINTMENT 30GM TUBE EXT SCH (21:00)
[2023-12-18] MEDS: NITROGLYCERIN 2% OINTMENT 30GM TUBE EXT SCH (21:17)
[2023-12-19] MEDS: ACETAMINOPHEN 325 MG TAB PO PRN (03:00)
[2023-12-19] MEDS: ONDANSETRON INJ 2 MG/ML 2 ML VIAL IV STA (03:01)
[2023-12-19 06:33] LABS: Basophils # (auto) 0.07 K/uL (0.00-0.20); Basophils % (auto) 0.7 %; Eosinophils # (auto) 0.33 K/uL (0.00-0.50); Eosinophils % (auto) 3.4 %; Hematocrit (blood only) 31.6 % (37.0-47.0); Hemoglobin 9.9 g/dl (12.0-16.0); Immature Granulocytes # (auto) 0.05 K/uL (0.01-0.20); Immature Granulocytes % (auto) 0.5 %; Lymphocytes # (auto) 2.08 K/uL (1.20-3.40); Lymphocytes % (auto) 21.6 %; Mean Corpuscular Hemoglobin 30.1 pg (25.0-34.0); Mean Corpuscular Hgb Conc 31.3 g/dL (32.0-36.0); Mean Platelet Volume 10.6 fL (9.4-12.4); Monocytes # (auto) 1.11 K/uL (0.11-0.59); Monocytes % (auto) 11.5 %; Neutrophils # (auto) 5.99 K/uL (1.40-6.50); Neutrophils % (auto) 62.3 %; Platelet Count 265 K/uL (130-400); RDW Coefficient of Variation 14.3 % (11.5-14.5); RDW Standard Deviation 50.4 fL (36.4-46.3); Red Blood Count 3.29 M/uL (4.20-5.40); White Blood Count 9.63 K/ul (4.8-10.8)
[2023-12-19] MEDS: LEVOTHYROXINE SODIUM 75 MCG TABLET PO SCH (06:36)
[2023-12-19 06:44] LABS: BUN Creatinine Ratio 19.5 (10-20); Calcium 8.5 mg/dl (8.6-10.3); Creatinine Clr Calc Pharmacy 23.4 ml/min; Est GFR (African American) 26.7 ml/min; Est GFR (Non-African American) 23.1 ml/min; Potassium 4.2 mmol/L (3.5-5.1)
[2023-12-19 06:49] LABS: INR 1.1 (0.9-1.1); Prothrombin Time 11.7 Seconds (9.0-12.0)
--- NOTE | 2023-12-19 08:34 | Electrocardiogram Report ---
Test Reason : Blood Pressure : / mmHG Vent. Rate : 078 BPM Atrial Rate : 056 BPM P-R Int : 000 ms QRS Dur : 158 ms QT Int : 434 ms P-R-T Axes : 000 -86 093 degrees QTc Int : 494 ms Ventricular-paced rhythm Biventricular pacemaker detected Abnormal ECG When compared with ECG of 18-DEC-2023 10:55, Vent. rate has increased BY 7 BPM Confirmed by Miller Rice ([id number]) on 12/19/2023 8:33:45 AM Referred By: REFERRED SELF Confirmed By:Miller Rice
[2023-12-19] MEDS: carvediloL 6.25 MG TAB PO SCH (09:18)
[2023-12-19] MEDS: SERTRALINE HCL 50 MG TABLET PO SCH (09:19)
[2023-12-19] MEDS: VIBEGRON 75 MG TAB PO SCH (09:19)
--- NOTE | 2023-12-19 10:07 | Hospitalist Progress Note ---
Date of Service December 19, 2023 Assessment & Plan (1) Heart failure with mildly reduced ejection fraction (HFmrEF): Plan: 83 yo female with PMH of HLD, NSTEMI, CVA, paroxysmal afib (on Eliquis), CKD, HFrEF (LVEF of 40-45%), biventricular ICD in place, aortic stenosis s/p TAVR, PAD s/p stenting, Hypothyroidism, Interstitial Lung Dx, Pulmonary HTN, COPD, insulin dependent DMII, and bilateral carotid artery stenosis who presented to the [facility] ED via EMS on 12/18/23 with complaints of ongoing SOB/GOMEZ, substernal chest pressure, and signs of CHF exacerbation on exam. #Acute on chronic CHF in exacerbation -Presented from the Cardiology clinic for ongoing GOMEZ/orthopnea, and an episode of BL chest tightness with left arm pain. ACS less likely as below. -clinically appears fluid overloaded -BNP on admission in 500s -CXR: small BL pleural effusions and signs of pulmonary edema -Weight is up approximately 6 Kg since 11/14/23 -daily weights, strict I/Os, monitor Cr -Cardiology following -s/p IV lasix 40mg in ED. Continue with bumex 3mg IV bid. -increase home carvedilol dose acutely to 6.25mg bid. -nitropaste q6h scheduled -may order hydralazine prn - Goal SBP <130 -hold digoxin - digoxin level pending #Chest pain -in setting of CHF as above. No concern for ACS at this time. Cardiology following. #Elevated troponin -Peaked at 46. No acute ST segment or T-wave changes on ECG. Likely due to demand ischemia 2/2 CHF. -Cardiology following #UTI (urinary tract infection) -Has been noting dysuria over the past 3 days. UA appears infectious. Urine cx pending. Continue rocephin. #Dyspnea on exertion -Likely due to progressive CHF exacerbation but cannot rule out ACS at this time -Rest of plan per chest pain plan #DM II (diabetes mellitus, type II), controlled -hold home meds -cont. lantus + SSI #Hypothyroidism -Continue levothyroxine #CAD (coronary artery disease) -Continue Brilinta -Continue Carvedilol #PAF (paroxysmal atrial fibrillation) -Currently in ventricular paced rhythm -Continue Eliquis and Carvedilol DVT ppx: Eliquis FEN/GI: HH, DM2, low Na Code Status: Full Dispo: med tele (2) Chest pain: (3) CAD (coronary artery disease): (4) Mitral regurgitation: (5) CKD (chronic kidney disease) stage 4, GFR 15-29 ml/min: (6) S/P TAVR (transcatheter aortic valve replacement): (7) Biventricular ICD (implantable cardioverter-defibrillator) in place: (8) Hx of atrioventricular node ablation: (9) UTI (urinary tract infection): (10) CHF exacerbation: (11) DM II (diabetes mellitus, type II), controlled: (12) Hypothyroidism: Admission and Anticipated Discharge Date Admission Date: December 18, 2023 Supervising Physician Co-Signing Physician Notes Attending Physician Supervision Note: I independently interviewed and examined the patient and verified the [place] history and physical, reviewed labs and image studies and agree with findings and care plan noted above. Breathing some better since admission. Chest pain better as well. Headache with nitro. comfortable in bed. JVD +, RRR, CTA Acute on chronic HFrEF - evaluated by Cardio in ED. -continue diuresis with bumex. May have to add metolazone. Monitor I and Os and renal function. -continue coreg, Angina with h/o severe CAD h/o multiple stents - likely small vessel ds -continue Ranexa, coreg, ticagrelor, h/o statin intolerance. nitro removed d/t headache. HTN - aggressive BP in setting of anginal pain. coreg dose increased to 6.25mgs - avoiding further uptitration to avoid bradycardia. -hydralazine added. PAF - in sinus. s/p ablation. continue eliquis -dig on hold CKD IV - follow labs while diuresing. UTI - continue ceftiaxone. Subjective She reports that for the past 3 weeks she had been experiencing chest discomfort described as "chest tightness" with exertion that would last approximately 15-20 minutes with resolution upon rest/discontinuation of the activity. She has also been experiencing worsening dyspnea particularly with exertion and reports weight gain of around 13 lbs over the past month. She has chronic orthopnea but notes that symptoms had been particularly worse over the past month. She was advised to increase her Bumetanide dose to 2 mg PO BID by the heart failure clinic on 12/15/23, but she noted no improvement with her weight despite the higher dose. She states that she did not seek any additional medical advice for her symptoms because she had an appointment scheduled with her property maintenance technician on 12/18/23 and was waiting the day of her appointment to discuss these concerns. However, yesterday while driving to her Cardiology appointment she experienced an episode of acute onset chest pain accompanied with L arm, elbow, and wrist pain which she notes were new symptoms to her. Symptoms lasted for approximately 20-30 minutes prior to arrival to the Cardiologic clinic. Today she reports that her chest discomfort has completely resolved. She notes still endorsing mild shortness of breath present at rest and worsened with activity. She was siting in bed eating breakfast and in no acute distress. She does state having a headache which she associates with application of Nitropaste. She feels a bit nauseous described as an "upset stomach" but her appetite has been good. She reports her dysuria is now resolved s/p IV Ceftriaxone. When asked, she stated that her RLE has always been more swollen than her left since her right knee replacement. Currently she does not have any other somatic complaints at rest. She denies any pain or discomfort in the neck, jaw, or back. She denies any fever, chills, cough, vomiting, abdominal pain, hematuria, or melena. Review of Systems Review of Systems: All systems reviewed & are unremarkable except as noted in HPI & below Physical Exam Constitutional: Well-appearing and not in acutes distress. Eyes: Pupils are equal and reactive to light and accommodation. Extraocular movements are intact. Respiratory: Lungs are clear to auscultation bilaterally. Normal breathing effort with no signs of respiratory distress. Cardiovascular: Regular rate and rhythm. 3/6 crescendo decrescendo systolic ejection murmur right upper sternal border. No JVD appreciated. Gastrointestinal (Abdomen): No abdominal distention noted. Normoactive bowel sounds in all 4 quadrants. No tenderness to palpationl. No masses appreciated. Musculoskeletal: Trace pitting bilateral lower extremity edema R > L. Results & Data Results & Data Vital Signs (Past 12 Hours) Vital Signs Temp Pulse Pulse Pulse Resp BP Pulse Ox 12/19/23 07:23 36.6 C 70 16 169/76 H 95 12/19/23 05:51 12/19/23 02:47 74 12/19/23 02:43 36.7 C 73 18 183/72 H 96 12/19/23 02:30 12/19/23 02:00 70 16 169/86 H 98 12/18/23 23:21 69 12/18/23 22:52 89 L O2 Del Method O2 Flow Rate 12/19/23 07:23 Nasal Cannula 2 12/19/23 05:51 Nasal Cannula 2 12/19/23 02:47 12/19/23 02:43 Nasal Cannula 2 12/19/23 02:30 Nasal Cannula 12/19/23 02:00 Nasal Cannula 2 12/18/23 23:21 12/18/23 22:52 Room Air, Nasal Cannula 0 Laboratory Results 12/19/23 12/19/23 12/19/23 Range/Units 11:49 08:42 07:42 WBC (4.8-10.8) K/ul RBC (4.20-5.40) M/uL Hgb (12.0-16.0) g/dl Hct (37.0-47.0) % MCV (80.0-100.0) fL MCH (25.0-34.0) pg MCHC (32.0-36.0) g/dL RDW Std Deviation (36.4-46.3) fL RDW Coeff of Manuela (11.5-14.5) % Plt Count (130-400) K/uL MPV (9.4-12.4) fL Immature Gran % (Auto) % Neut % (Auto) % Lymph % (Auto) % [place] % (Auto) % Eos % (Auto) % Baso % (Auto) % Neut # (Auto) (1.40-6.50) K/uL Lymph # (Auto) (1.20-3.40) K/uL [place] # (Auto) (0.11-0.59) K/uL Eos # (Auto) (0.00-0.50) K/uL Baso # (Auto) (0.00-0.20) K/uL Immature Gran # (Auto) (0.01-0.20) K/uL PT (9.0-12.0) Seconds INR (0.9-1.1) Sodium (136-145) mmol/L Potassium (3.5-5.1) mmol/L Chloride (98-107) mmol/L Carbon Dioxide (21-32) mmol/L Anion Gap (3-11) BUN (6-23) mg/dl Creatinine (0.6-1.2) mg/dl Est Cr Clr Drug Dosing ml/min Est GFR ( Amer) ml/min Est GFR (Non-Af Amer) ml/min BUN/Creatinine Ratio (10-20) Glucose (70-99(Fasting)) mg/dl POC Glucose 238 H 146 H (70-99) mg/dl Calcium (8.6-10.3) mg/dl Magnesium (1.7-2.4) mg/dl Troponin I High Sens (0-14) pg/ml B-Natriuretic Peptide (0-100) pg/ml Urine WBC (Auto) (0-5) /hpf Urine RBC (Auto) (0-4) /hpf U Hyaline Cast (Auto) (0-5) /lpf U Epithel Cells (Auto) (0-5) /lpf Urine Bacteria (Auto) (Negative) Urine Yeast (None Prsent) Digoxin 1.4 (0.8-2.0) ng/ml SARS-CoV-2, RNA, NAAT (NEGATIVE) 12/19/23 12/19/23 12/18/23 Range/Units 06:02 00:18 20:11 WBC 9.63 (4.8-10.8) K/ul RBC 3.29 L (4.20-5.40) M/uL Hgb 9.9 L (12.0-16.0) g/dl Hct 31.6 L (37.0-47.0) % MCV 96.0 (80.0-100.0) fL MCH 30.1 (25.0-34.0) pg MCHC 31.3 L (32.0-36.0) g/dL RDW Std Deviation 50.4 H (36.4-46.3) fL RDW Coeff of Manuela 14.3 (11.5-14.5) % Plt Count 265 (130-400) K/uL MPV 10.6 (9.4-12.4) fL Immature Gran % (Auto) 0.5 % Neut % (Auto) 62.3 % Lymph % (Auto) 21.6 % [place] % (Auto) 11.5 % Eos % (Auto) 3.4 % Baso % (Auto) 0.7 % Neut # (Auto) 5.99 (1.40-6.50) K/uL Lymph # (Auto) 2.08 (1.20-3.40) K/uL [place] # (Auto) 1.11 H (0.11-0.59) K/uL Eos # (Auto) 0.33 (0.00-0.50) K/uL Baso # (Auto) 0.07 (0.00-0.20) K/uL Immature Gran # (Auto) 0.05 (0.01-0.20) K/uL PT 11.7 (9.0-12.0) Seconds INR 1.1 (0.9-1.1) Sodium 139 (136-145) mmol/L Potassium 4.2 (3.5-5.1) mmol/L Chloride 100 (98-107) mmol/L Carbon Dioxide 31 (21-32) mmol/L Anion Gap 8 (3-11) BUN 38 H (6-23) mg/dl Creatinine 1.95 H (0.6-1.2) mg/dl Est Cr Clr Drug Dosing 23.4 ml/min Est GFR ( Amer) 26.7 ml/min Est GFR (Non-Af Amer) 23.1 ml/min BUN/Creatinine Ratio 19.5 (10-20) Glucose 135 H (70-99(Fasting)) mg/dl POC Glucose 161 H (70-99) mg/dl Calcium 8.5 L (8.6-10.3) mg/dl Magnesium 2.0 (1.7-2.4) mg/dl Troponin I High Sens 46.7 H 44.3 H (0-14) pg/ml B-Natriuretic Peptide (0-100) pg/ml Urine WBC (Auto) (0-5) /hpf Urine RBC (Auto) (0-4) /hpf U Hyaline Cast (Auto) (0-5) /lpf U Epithel Cells (Auto) (0-5) /lpf Urine Bacteria (Auto) (Negative) Urine Yeast (None Prsent) Digoxin (0.8-2.0) ng/ml SARS-CoV-2, RNA, NAAT (NEGATIVE) 12/18/23 12/18/23 12/18/23 Range/Units 18:16 17:31 15:30 WBC (4.8-10.8) K/ul RBC (4.20-5.40) M/uL Hgb (12.0-16.0) g/dl Hct (37.0-47.0) % MCV (80.0-100.0) fL MCH (25.0-34.0) pg MCHC (32.0-36.0) g/dL RDW Std Deviation (36.4-46.3) fL RDW Coeff of Manuela (11.5-14.5) % Plt Count (130-400) K/uL MPV (9.4-12.4) fL Immature Gran % (Auto) % Neut % (Auto) % Lymph % (Auto) % [place] % (Auto) % Eos % (Auto) % Baso % (Auto) % Neut # (Auto) (1.40-6.50) K/uL Lymph # (Auto) (1.20-3.40) K/uL [place] # (Auto) (0.11-0.59) K/uL Eos # (Auto) (0.00-0.50) K/uL Baso # (Auto) (0.00-0.20) K/uL Immature Gran # (Auto) (0.01-0.20) K/uL PT (9.0-12.0) Seconds INR (0.9-1.1) Sodium (136-145) mmol/L Potassium (3.5-5.1) mmol/L Chloride (98-107) mmol/L Carbon Dioxide (21-32) mmol/L Anion Gap (3-11) BUN (6-23) mg/dl Creatinine (0.6-1.2) mg/dl Est Cr Clr Drug Dosing ml/min Est GFR ( Amer) ml/min Est GFR (Non-Af Amer) ml/min BUN/Creatinine Ratio (10-20) Glucose (70-99(Fasting)) mg/dl POC Glucose 156 H (70-99) mg/dl Calcium (8.6-10.3) mg/dl Magnesium (1.7-2.4) mg/dl Troponin I High Sens 43.4 H (0-14) pg/ml B-Natriuretic Peptide (0-100) pg/ml Urine WBC (Auto) (0-5) /hpf Urine RBC (Auto) (0-4) /hpf U Hyaline Cast (Auto) (0-5) /lpf U Epithel Cells (Auto) (0-5) /lpf Urine Bacteria (Auto) (Negative) Urine Yeast (None Prsent) Digoxin 0.8 (0.8-2.0) ng/ml SARS-CoV-2, RNA, NAAT NEGATIVE (NEGATIVE) 12/18/23 12/18/23 12/18/23 Range/Units 15:07 14:41 12:11 WBC (4.8-10.8) K/ul RBC (4.20-5.40) M/uL Hgb (12.0-16.0) g/dl Hct (37.0-47.0) % MCV (80.0-100.0) fL MCH (25.0-34.0) pg MCHC (32.0-36.0) g/dL RDW Std Deviation (36.4-46.3) fL RDW Coeff of Manuela (11.5-14.5) % Plt Count (130-400) K/uL MPV (9.4-12.4) fL Immature Gran % (Auto) % Neut % (Auto) % Lymph % (Auto) % [place] % (Auto) % Eos % (Auto) % Baso % (Auto) % Neut # (Auto) (1.40-6.50) K/uL Lymph # (Auto) (1.20-3.40) K/uL [place] # (Auto) (0.11-0.59) K/uL Eos # (Auto) (0.00-0.50) K/uL Baso # (Auto) (0.00-0.20) K/uL Immature Gran # (Auto) (0.01-0.20) K/uL PT (9.0-12.0) Seconds INR (0.9-1.1) Sodium (136-145) mmol/L Potassium (3.5-5.1) mmol/L Chloride (98-107) mmol/L Carbon Dioxide (21-32) mmol/L Anion Gap (3-11) BUN (6-23) mg/dl Creatinine (0.6-1.2) mg/dl Est Cr Clr Drug Dosing ml/min Est GFR ( Amer) ml/min Est GFR (Non-Af Amer) ml/min BUN/Creatinine Ratio (10-20) Glucose (70-99(Fasting)) mg/dl POC Glucose 95 (70-99) mg/dl Calcium (8.6-10.3) mg/dl Magnesium (1.7-2.4) mg/dl Troponin I High Sens 43.1 H (0-14) pg/ml B-Natriuretic Peptide 553 H (0-100) pg/ml Urine WBC (Auto) >30 H (0-5) /hpf Urine RBC (Auto) 10-30 H (0-4) /hpf U Hyaline Cast (Auto) 0 (0-5) /lpf U Epithel Cells (Auto) 0-5 (0-5) /lpf Urine Bacteria (Auto) Negative (Negative) Urine Yeast Present A (None Prsent) Digoxin (0.8-2.0) ng/ml SARS-CoV-2, RNA, NAAT (NEGATIVE) (2) Chest pain Chest pain type: unspecified Qualified Code(s): R07.9 - Chest pain, unspecified (11) DM II (diabetes mellitus, type II), controlled Diabetes mellitus complication detail: with nephropathy Diabetes mellitus complication status: with kidney complications Diabetes mellitus halfway insulin use: with halfway use Qualified Code(s): E11.21 - Type 2 diabetes mellitus with diabetic nephropathy; Z79.4 - intermission coordinator (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 (12) Hypothyroidism Hypothyroidism type: acquired Qualified Code(s): E03.9 - Hypothyroidism, u nspecified
[2023-12-19] MEDS: cefTRIAXone SODIUM 2,000 MG in DEXTROSE 5 % MINI-B 50 ML IV SCH (14:06)
--- NOTE | 2023-12-19 14:46 | Cardiology Progress Note ---
Date of Service December 19, 2023 Assessment & Plan (1) Heart failure with mildly reduced ejection fraction (HFmrEF): (2) Chest pain: (3) CAD (coronary artery disease): (4) Mitral regurgitation: (5) CKD (chronic kidney disease) stage 4, GFR 15-29 ml/min: (6) S/P TAVR (transcatheter aortic valve replacement): (7) Biventricular ICD (implantable cardioverter-defibrillator) in place: (8) Hx of atrioventricular node ablation: Plan 83-year-old woman with complex cardiac history and borderline renal function admitted with evidence of progressive volume overload culminating in an episode of chest discomfort. No evidence of acute coronary event or ongoing myocardial ischemia, troponin curve flat and no further chest pain. Clinically improving but degree of diuresis uncertain. Continue bumetanide 3 mg IV twice daily, may need to add metolazone if she does not have clear-cut/well- documented diuresis overnight. BP control improved, however would remove Nitropaste given her headache. For additional blood pressure control could further increase carvedilol, but this might result in relative bradycardia. Would favor initiating hydralazine 25 mg p.o. every 12 hours initially, with upward titration to achieve systolic blood pressure less than 130 mmHg. She has a history of orthostasis/hypotension in the past, so would favor shorter acting agents at this point (hydralazine). However, if her BP remains elevated could consider amlodipine 2.5 mg daily as an alternative to hydralazine. Will continue to follow. Admission and Anticipated Discharge Date Admission Date: December 18, 2023 Subjective She notes that her breathing is better overnight. No further chest pain since yesterday. Had some diuresis last evening but none further at the time of my visit this morning. Creatinine stable. She did note a mild headache, felt secondary to the Nitropatch. Weight unreliable (? ?12 pound weight loss). Input/output virtually even. Physical Exam Physical Exam: Appears comfortable, able to lie nearly flat. BP high normal. Pulse 72 bpm and regular. Respirations 20 but unlabored. Skin: Chronic pretibial stasis changes, no generalized lesions. HEENT: unremarkable. Neck: Jugular venous pulse one quarter of the way to the angle of the jaw at 90 degrees, bilateral transmitted carotid murmur. Lungs: Mildly decreased breath sounds with bibasilar crackles, no wheezing or accessory muscle use. Cardiac: regular rhythm, intact aortic closure sound, 3/6 crescendo decrescendo systolic ejection murmur right upper sternal border rating to the carotids, 3/6 apical holosystolic murmur rating to the axilla, no diastolic murmur. Abdomen: benign. Extremities: 1+ right pretibial edema, trace left pretibial edema, radial pulses intact, lower extremity pulses not readily palpable but her feet are warm Neurologic: normal affect and conversation, nonfocal. Results & Data Laboratory Results Troponin values 40, 43, 43, 44, 46. Normal electrolytes, BUN 38, creatinine 1.95. Hemoglobin 9.9. Diagnostic Findings Echocardiogram yesterday showed EF 40 to 45% with moderate to severe mitral tricuspid regurgitation and moderate pulmonary hypertension, moderately dilated IVC. Compared with 08/04/2023 study, mitral regurgitation severity increased, moderate pulmonary hypertension now seen, and inferior vena cava now moderately dilated. PG Care Time/CCT Total # of Minutes Spent Total Time Spent with Patient: Total time spent is greater than 50% in coordination of care (as documented) at patient's floor/unit and/or counseling patient: Coding Level of Care Code 64732 SUB INP/OBS CARE 235MIN Diagnoses Heart failure with mildly reduced ejection fraction (HFmrEF) I50.22 Chest pain R07.9 Chest pain type: unspecified CAD (coronary artery disease) I25.10 Mitral regurgitation I34.0 CKD (chronic kidney disease) stage 4, GFR 15-29 ml/min N18.4 S/P TAVR (transcatheter aortic valve replacement) Z95.2 Biventricular ICD (implantable cardioverter-defibrillator) in place Z95.810 Hx of atrioventricular node ablation Z98.890 (2) Chest pain Chest pain type: unspecified Qualified Code(s): R07.9 - Chest pain, unspecified
[2023-12-19] MEDS ORDERED: hydrALAZINE 10 MG TAB PO PRN (14:58)
[2023-12-19] MEDS: POLYETHYLENE (MIRALAX) 17 GM PACK PO PRN (21:08)
[2023-12-20 07:49] LABS: Albumin Globulin Ratio 1.2 (0.9-2); Albumin Level 3.4 gm/dl (3.4-5.0); BUN Creatinine Ratio 19.5 (10-20); Bilirubin,Total 0.4 mg/dl (0.2-1.0); Calcium 8.6 mg/dl (8.6-10.3); Creatinine Clr Calc Pharmacy 22.8 ml/min; Est GFR (African American) 25.9 ml/min; Est GFR (Non-African American) 22.4 ml/min; Globulin 2.9 gm/dl (2.5-4.0); Potassium 3.9 mmol/L (3.5-5.1); Total Protein 6.3 gm/dl (6.0-8.3)
[2023-12-20] MEDS: MECLIZINE 12.5 MG TAB PO ONE (10:07)
--- NOTE | 2023-12-20 10:38 | Hospitalist Progress Note ---
Date of Service December 20, 2023 Assessment & Plan (1) Heart failure with mildly reduced ejection fraction (HFmrEF): Plan: 83 yo female with PMH of HLD, NSTEMI, CVA, paroxysmal afib (on Eliquis), CKD, HFrEF (LVEF of 40-45%), biventricular ICD in place, aortic stenosis s/p TAVR, PAD s/p stenting, Hypothyroidism, Interstitial Lung Dx, COPD, insulin dependent DMII, and bilateral carotid artery stenosis who presented with complaints of ongoing SOB/GOMEZ, substernal chest pressure, and signs of CHF exacerbation on exam. #Acute on chronic CHF in exacerbation -Presented from the Cardiology clinic 12/18/23 for ongoing GOMEZ/orthopnea, and an episode of BL chest tightness with left arm pain. ACS less likely as below. Clinically appeared fluid overloaded. BNP on admission in 500s -CXR: small BL pleural effusions and signs of pulmonary edema -Weight is up approximately 6 Kg since 11/14/23 -Daily weights, strict I/Os, monitor Cr -Cardiology following -s/p IV lasix 40mg in ED. Continue with Bumex 3mg IV bid. Will return to home dose Bumex PO 2mg daily starting 12/21/23. -Cont. increased carvedilol dose of 6.25mg bid. -Nitropaste discontinued (12/19/23) due to headache -Hydralazine PRN - Goal SBP <130 -Discontinued digoxin permanently. Not much benefit for her since she has h/o AV node ablation and is electronically paced. #Dizziness -New onset occurring after standing up this morning, feels like room is spinning. Unclear etiology. Most likely vertigo although no h/o this. Does have h/o orthostasis. -Meclizine 12.5mg given this AM - symptoms did improve -orthostatic vitals ordered -Consider head imaging if symptoms persist #Chest pain -In setting of CHF as above. No concern for ACS at this time. Cardiology following. #Elevated troponin -Peaked at 46. No acute ST segment or T-wave changes on ECG. Likely due to demand ischemia 2/2 CHF. -Cardiology following #UTI (urinary tract infection) -Has been noting dysuria over the past few days. UA appears infectious. Urine cx pinpoint, reincubating. D/c rocephin. #Dyspnea on exertion -Likely due to progressive CHF exacerbation. Cannot r/o pulmonary HTN as this was seen on recent echo however in the setting of acute CHF exacerbation. #DM II (diabetes mellitus, type II), controlled -Hold home meds -Cont. lantus + SSI #Hypothyroidism -Continue levothyroxine #CAD (coronary artery disease) -Continue Brilinta -Continue Carvedilol #PAF (paroxysmal atrial fibrillation) -Currently in ventricular paced rhythm -Continue Eliquis and Carvedilol DVT ppx: Eliquis FEN/GI: HH, DM2, low Na Code Status: Full Dispo: med tele (2) Chest pain: (3) CAD (coronary artery disease): (4) Mitral regurgitation: (5) CKD (chronic kidney disease) stage 4, GFR 15-29 ml/min: (6) S/P TAVR (transcatheter aortic valve replacement): (7) Biventricular ICD (implantable cardioverter-defibrillator) in place: (8) Hx of atrioventricular node ablation: (9) UTI (urinary tract infection): (10) CHF exacerbation: (11) DM II (diabetes mellitus, type II), controlled: (12) Hypothyroidism: Admission and Anticipated Discharge Date Admission Date: December 18, 2023 Supervising Physician Co-Signing Physician Notes Attending Physician Supervision Note: I independently interviewed and examined the patient and verified the [place] history and physical, reviewed labs and image studies and agree with findings and care plan noted above. Breathing better. dizziness better. PT reported her SaO2 dropped to 82% with ambulation. came up quickly to 94% with sitting down. comfortable. JVD not appreciated, RRR, CTA Dizziness - resolved. likely from volume loss from diuresis with underlying orthostasis. Acute on chronic HFrEF with mildly reduced EF - Moderate to severe MR - -on home dose daily bumex once a day. -continue coreg, Pulmonary HTN - Echo 2022 and now PAP 50-60. -sec to left heart ds. -likely contributing to exertional dyspnea. Exertional hypoxia - sec to left heart ds, pul HTN -will get 2 step in am and arrange oxygen. -she is reluctant to having to use oxygen at home - discussed the risk related to hypoxia with her cardiac status. Angina with h/o severe CAD h/o multiple stents - likely small vessel ds -continue Ranexa, coreg, ticagrelor, h/o statin intolerance. nitro removed d/t headache. -aggressive BP control systolic <130. HTN - coreg dose increased to 6.25mgs - avoiding further uptitration to avoid bradycardia. -continue prn hydralazine. BP fluctuating 108-142 systolic. PAF - in sinus. s/p ablation. continue eliquis -dig d/vicki. shouldn't need since now s/p ablation. CKD IV - creatinine stable. anticipate d/c home in am Subjective Patient was sitting in her chair having breakfast. She notes that after getting up from bed this morning she experienced a bout of dizziness described as "room spinning" that has been ongoing for a few hours now. While sitting in the chair, she still feels dizzy and describes feeling a bit "out of it." Overall, she feels like she is doing better and feels better compared to yesterday. She also notes that she has been urinating more as of yesterday. Shortness of breath has improved, but she still endorses some dyspnea on exertion. Headache from yesterday has improved since discontinuing Nitropaste but she notes still a slight lingering headache. She denies any pain or discomfort in the neck, jaw, or back. She denies any fever, chills, cough, vomiting, abdominal pain, hematuria, or melena. Review of Systems Review of Systems: All systems reviewed & are unremarkable except as noted in HPI & below Physical Exam Constitutional: Sitting in chair. Appears well and not in acute distress. Eyes: Impaired right lateral gaze. Extraocular movements otherwise intact. Pupils equal and reactive to light. Neck: Bilateral carotid bruit Respiratory: Lungs are clear to auscultation bilaterally. No rails, rhonchi, or wheezes. Cardiovascular: Regular rate and rhythm. 3/6 crescendo decrescendo systolic ejection murmur right upper sternal border. Results & Data Results & Data Vital Signs (Past 12 Hours) Vital Signs Temp Pulse Pulse Pulse Resp BP Pulse Ox 12/20/23 08:10 37 C 70 16 146/76 H 96 12/20/23 07:00 70 12/20/23 03:22 36.7 C 69 18 129/58 L 95 12/19/23 23:28 71 12/19/23 22:52 36.7 C 78 18 130/75 95 O2 Del Method O2 Flow Rate 12/20/23 08:10 Room Air 12/20/23 07:00 12/20/23 03:22 Nasal Cannula 2 12/19/23 23:28 12/19/23 22:52 Nasal Cannula 2 Laboratory Results 12/20/23 12/20/23 12/20/23 Range/Units 11:47 08:06 06:44 Sodium 138 (136-145) mmol/L Potassium 3.9 (3.5-5.1) mmol/L Chloride 100 (98-107) mmol/L Carbon Dioxide 31 (21-32) mmol/L Anion Gap 7 (3-11) BUN 39 H (6-23) mg/dl Creatinine 2.00 H (0.6-1.2) mg/dl Est Cr Clr Drug Dosing 22.8 ml/min Est GFR ( Amer) 25.9 ml/min Est GFR (Non-Af Amer) 22.4 ml/min BUN/Creatinine Ratio 19.5 (10-20) Glucose 157 H (70-99(Fasting)) mg/dl POC Glucose 220 H 156 H (70-99) mg/dl Calcium 8.6 (8.6-10.3) mg/dl Magnesium 2.0 (1.7-2.4) mg/dl Total Bilirubin 0.4 (0.2-1.0) mg/dl AST 13 (13-39) U/L ALT 10 (7-52) U/L Alkaline Phosphatase 98 (34-104) U/L Total Protein 6.3 (6.0-8.3) gm/dl Albumin 3.4 (3.4-5.0) gm/dl Globulin 2.9 (2.5-4.0) gm/dl Albumin/Globulin Ratio 1.2 (0.9-2) 12/19/23 12/19/23 Range/Units 20:45 17:38 Sodium (136-145) mmol/L Potassium (3.5-5.1) mmol/L Chloride (98-107) mmol/L Carbon Dioxide (21-32) mmol/L Anion Gap (3-11) BUN (6-23) mg/dl Creatinine (0.6-1.2) mg/dl Est Cr Clr Drug Dosing ml/min Est GFR ( Amer) ml/min Est GFR (Non-Af Amer) ml/min BUN/Creatinine Ratio (10-20) Glucose (70-99(Fasting)) mg/dl POC Glucose 236 H 144 H (70-99) mg/dl Calcium (8.6-10.3) mg/dl Magnesium (1.7-2.4) mg/dl Total Bilirubin (0.2-1.0) mg/dl AST (13-39) U/L ALT (7-52) U/L Alkaline Phosphatase (34-104) U/L Total Protein (6.0-8.3) gm/dl Albumin (3.4-5.0) gm/dl Globulin (2.5-4.0) gm/dl Albumin/Globulin Ratio (0.9-2) Resident Activity Tracking Resident Involvement: Resident Care Provided Care Provided: Adult Hospital Medicine (2) Chest pain Chest pain type: unspecified Qualified Code(s): R07.9 - Chest pain, unspecified (11) DM II (diabetes mellitus, type II), controlled Diabetes mellitus complication detail: with nephropathy Diabetes mellitus complication status: with kidney complications Diabetes mellitus half-way insulin use: with keno terminal operator use Qualified Code(s): E11.21 - Type 2 diabetes mellitus with diabetic nephropathy; Z79.4 - terminal clerk (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 (12) Hypothyroidism Hypothyroidism type: acquired Qualified Code(s): E03.9 - Hypothyroidism, unspecified
--- NOTE | 2023-12-20 12:34 | Cardiology Progress Note ---
Date of Service December 20, 2023 Assessment & Plan (1) Heart failure with mildly reduced ejection fraction (HFmrEF): (2) CAD (coronary artery disease): (3) Mitral regurgitation: (4) CKD (chronic kidney disease) stage 4, GFR 15-29 ml/min: (5) S/P TAVR (transcatheter aortic valve replacement): (6) Biventricular ICD (implantable cardioverter-defibrillator) in place: (7) Hx of atrioventricular node ablation: Plan Clinically improving with diuresis, could change her back to oral bumetanide at 2 mg daily. BP seems improved on increased dose of carvedilol, has not required hydralazine and does have a history of orthostasis/hypotension (one low BP noted yesterday), so more aggressive BP control may not be warranted today. Continue carvedilol 6.25 mg twice daily. Continue as needed hydralazine to be administered if BP spikes. Hold off on starting amlodipine given variable BP, would consider this only if her BP remains consistently elevated. Could discontinue digoxin permanently. In general, it has a low therapeutic margin and since she had the AV hiren ablation she has not shown any tachycardia but is electronically paced. Since her EF is only mildly reduced, she would be unlikely to benefit from the inotropic effects of digoxin. Will continue to follow as inpatient, she should also have follow-up with Urmila cMmanus PA-C in heart failure clinic shortly after discharge. Admission and Anticipated Discharge Date Admission Date: December 18, 2023 Subjective Breathing significantly better. Has had some vertigo issues this morning which seem positional. Weights and input/output seem unreliable. She notes a good diuresis, particularly after her dose of IV Bumex. Physical Exam Physical Exam: Appears comfortable. BP mildly hypertensive. Pulse 80 bpm and regular. Respirations 16 and unlabored. Skin: Chronic pretibial stasis changes, no generalized lesions. HEENT: unremarkable. Neck: Jugular venous pulse at the clavicle at 90 degrees, bilateral transmitted carotid murmur. Lungs: Mildly decreased breath sounds but clear, no wheezing or accessory muscle use. Cardiac: regular rhythm, intact aortic closure sound, 3/6 crescendo decrescendo systolic ejection murmur right upper sternal border rating to the carotids, 3/6 apical holosystolic murmur rating to the axilla, no diastolic murmur. Abdomen: benign. Extremities: Trace pretibial edema (right greater than left). Neurologic: normal affect and conversation, nonfocal. Results & Data Vital Signs (Past 12 Hours) Vital Signs Temp Pulse Pulse Pulse Resp BP Pulse Ox 12/20/23 11:37 98.8 F 80 16 152/84 H 95 12/20/23 08:10 98.6 F 70 16 146/76 H 96 12/20/23 07:00 70 12/20/23 03:22 98.1 F 69 18 129/58 L 95 O2 Del Method O2 Flow Rate 12/20/23 11:37 Nasal Cannula 2 12/20/23 08:10 Room Air 12/20/23 07:00 12/20/23 03:22 Nasal Cannula 2 Laboratory Results Normal electrolytes, BUN 39, creatinine 2.00 (1.95 yesterday). PG Care Time/CCT Total # of Minutes Spent Total Time Spent with Patient: Total time spent is greater than 50% in coordination of care (as documented) at patient's floor/unit and/or counseling patient: Coding Level of Care Code 57952 SUB INP/OBS CARE 3/50MIN Diagnoses Heart failure with mildly reduced ejection fraction (HFmrEF) I50.22 CAD (coronary artery disease) I25.10 Mitral regurgitation I34.0 CKD (chronic kidney disease) stage 4, GFR 15-29 ml/min N18.4 S/P TAVR (transcatheter aortic valve replacement) Z95.2 Biventricular ICD (implantable cardioverter-defibrillator) in place Z95.810 Hx of atrioventricular node ablation Z98.890
[2023-12-20] MEDS ORDERED: MECLIZINE 12.5 MG TAB PO PRN (15:16)
[2023-12-21] MEDS: BUMETANIDE 1 MG TAB PO SCH (08:02)
--- NOTE | 2023-12-21 09:59 | Cardiology Progress Note ---
Date of Service December 21, 2023 Assessment & Plan (1) Heart failure with mildly reduced ejection fraction (HFmrEF): (2) CAD (coronary artery disease): (3) Mitral regurgitation: (4) CKD (chronic kidney disease) stage 4, GFR 15-29 ml/min: (5) S/P TAVR (transcatheter aortic valve replacement): (6) Biventricular ICD (implantable cardioverter-defibrillator) in place: (7) Hx of atrioventricular node ablation: Plan Clinically improving with diuresis. She is having some intermittent dyspnea on exertion ambulating around the room. She is now resumed her home dose of oral bumetanide at 2 mg daily. If symptoms worsen through the day would have a low to lerance to give another dose of IV. Continue strict I&Os while inpatient. Daily STANDING weights. Low sodium diet. Renal function remains stable. BP seems acceptable on current dose of carvedilol, has not required hydralazine and does have a history of orthostasis/hypotension, so more aggressive BP control may not be warranted today. Continue carvedilol 6.25 mg twice daily. Continue as needed hydralazine to be administered if BP spikes. Hold off on starting amlodipine given variable BP, would consider this only if her BP remains consistently elevated. This may also cause more fluid retention/edema. LV ejection fraction is mid range- 40-45%. She has documented intolerance to HERMELINDO/ARBs due to chronic kidney disease. Entresto discontinued in the past due to orthostatic hypotension. Continue Carvedilol. She had symptomatic hypotension with higher doses in the past. Losartan has been discontinued due to orthostatic symptoms. GFR consistently around 20 so historically not on SGLT2i. Likely at max tolerated GDMT. Monitor labs. Continue medical therapy. She was upgraded to a biventricular device. Digoxin has been discontinued. In general, it has a low therapeutic margin and since she had the AV hiren ablation she has not shown any tachycardia but is electronically paced. Since her EF is only mildly reduced, she would be unlikely to benefit from the inotropic effects of digoxin. Will continue to follow as inpatient, she should also have follow-up in heart failure clinic shortly after discharge. Admission and Anticipated Discharge Date Admission Date: December 18, 2023 Supervising Physician Co-Signing Physician Notes Patient seen and examined. Agree with evaluation and plan as outlined above by Urmila Mcmanus PA-C. Patient appears euvolemic and is back on her maintenance diuretic dose. Hemodynamics have improved. No new recommendations. Subjective Patient sleeping but awakens easily. Laying flat without any difficulty breathing. She is feeling improved today. She was having some GOMEZ with ambulating to the bathroom. Required some O2 over night. Edema resolved. Denies orthopnea, chest pain, cough, palpitations. She had an episode of lightheadedness yesterday but so far today is feeling well. She's net negative 1.3L. No labs drawn today. Physical Exam Physical Exam: Appears comfortable. Room air. Skin: Chronic pretibial stasis changes, no generalized lesions. HEENT: unremarkable. Neck: Jugular venous pulse at the clavicle at 90 degrees, bilateral transmitted carotid murmur. Lungs: Normal respiratory effort. Mildly decreased breath sounds but clear, no wheezing or accessory muscle use. No crackles. Cardiac: regular rhythm, intact aortic closure sound, 3/6 crescendo decrescendo systolic ejection murmur right upper sternal border rating to the carotids, 3/6 apical holosystolic murmur rating to the axilla, no diastolic murmur. Abdomen: benign. Extremities: Trace pretibial edema. Neurologic: normal affect and conversation, nonfocal. Results & Data Vital Signs (Past 12 Hours) Vital Signs Temp Pulse Pulse Resp BP Pulse Ox O2 Del Method 12/21/23 08:11 97.7 F 73 16 147/64 H 97 Nasal Cannula 12/21/23 07:00 70 12/21/23 04:00 97.9 F 70 18 108/63 97 Nasal Cannula 12/21/23 00:00 97.9 F 73 18 135/68 97 Nasal Cannula 12/20/23 23:56 71 O2 Flow Rate 12/21/23 08:11 2 12/21/23 07:00 12/21/23 04:00 2 12/21/23 00:00 2 12/20/23 23:56 PG Care Time/CCT Total # of Minutes Spent Total Time Spent with Patient: Total time spent is greater than 50% in coordination of care (as documented) at patient's floor/unit and/or counseling patient: Coding Level of Care Code 81750 SUB INP/OBS CARE 3/50MIN Diagnoses Heart failure with mildly reduced ejection fraction (HFmrEF) I50.22 CAD (coronary artery disease) I25.10 Mitral regurgitation I34.0 CKD (chronic kidney disease) stage 4, GFR 15-29 ml/min N18.4 S/P TAVR (transcatheter aortic valve replacement) Z95.2 Biventricular ICD (implantable cardioverter-defibrillator) in place Z95.810 Hx of atrioventricular node ablation Z98.890
--- NOTE | 2023-12-21 10:11 | Hospitalist Progress Note ---
Date of Service December 21, 2023 Assessment & Plan (1) Heart failure with mildly reduced ejection fraction (HFmrEF): Plan: 83 yo female with PMH of HLD, NSTEMI, CVA, paroxysmal afib (on Eliquis), CKD, HFrEF (LVEF of 40-45%), biventricular ICD in place, aortic stenosis s/p TAVR, PAD s/p stenting, Hypothyroidism, Interstitial Lung Dx, insulin dependent DMII, and bilateral carotid artery stenosis who presented with complaints of ongoing SOB/GOMEZ, substernal chest pressure, and signs of CHF exacerbation on exam. #Acute on chronic HFrEF in exacerbation -Presented from the Cardiology clinic 12/18/23 for ongoing GOMEZ/orthopnea, and an episode of BL chest tightness with left arm pain. ACS less likely as below. Clinically appeared fluid overloaded. BNP on admission in 500s -Moderate to severe MR -CXR: small BL pleural effusions and signs of pulmonary edema -Weight is up approximately 6 Kg since 11/14/23 -Daily weights, strict I/Os, monitor Cr -Cardiology following -s/p IV lasix 40mg in ED. Continue with Bumex PO 2mg daily (home dose) -Continue increased Carvedilol dose of 6.25 mg BID. Avoid further uptitration to avoid bradycardia or hypotension. -Nitropaste discontinued (12/19/23) due to headache. Headache now resolved. -Hydralazine PRN - Goal SBP <130 -Discontinued digoxin permanently. Not much benefit for her since she has h/o AV node ablation and is electronically paced. -Breathing has improved but still SOB with ambulation -I/Os not being documented well but diuresing well -Comfortable. JVD not appreciated. RRR. Lungs CTA. #Pulmonary HTN - Echo 2022 and now PAP 50-60. -sec to left heart ds. -possibly contributing to exertional dyspnea. -PFTs 2019: moderate restrictive physiology with significant bronchodilator response. DLCO was unable to be assessed. Previous pulmonology noted these were taken in the setting of pleural effusion. Advised repeat PFTs but these were never done. Consider outpatient repeat. #Dizziness -New episode onset (12/20/23) AM lasting several hours after standing up from bed. [place] like room was spinning. -Unclear etiology. Most likely vertigo or hypotension although no h/o of it. Does endorse h/o orthostasis. -Symptoms resolved later the same day as per patient s/p trial Meclizine -Orthostatics pending -Can consider head imaging if symptoms return #Chest pain -In setting of CHF as above. No concern for ACS at this time. Cardiology following. -Continue Ranexa, coreg, Ticaegrelor. H/o statin intolerance. Nitro removed d/t headache. -Aggressive BP control with goal of SBP < 130 #Elevated troponin -Peaked at 46. No acute ST segment or T-wave changes on ECG. Likely due to demand ischemia 2/2 CHF. -Cardiology following #UTI (urinary tract infection) -Has been noting dysuria over the past few days. UA appears infectious. Urine cx pinpoint, reincubating. D/c rocephin. #Dyspnea on exertion -Likely due to progressive CHF exacerbation. Cannot r/o pulmonary HTN as this was seen on recent echo however in the setting of acute CHF exacerbation. #DM II (diabetes mellitus, type II), controlled -Hold home meds -Cont. lantus + SSI #Hypothyroidism -Continue levothyroxine #CAD (coronary artery disease) -Continue Brilinta -Continue Carvedilol #PAF (paroxysmal atrial fibrillation) -Currently in ventricular paced rhythm. S/p ablation. -Continue Eliquis and Carvedilol. Digoxin on hold. #CKD IV -Creatinine stable DVT ppx: Eliquis FEN/GI: HH, DM2, low Na Code Status: Full Dispo: med tele (2) Chest pain: (3) CAD (coronary artery disease): (4) Mitral regurgitation: (5) CKD (chronic kidney disease) stage 4, GFR 15-29 ml/min: (6) S/P TAVR (transcatheter aortic valve replacement): (7) Biventricular ICD (implantable cardioverter-defibrillator) in place: (8) Hx of atrioventricular node ablation: (9) UTI (urinary tract infection): (10) CHF exacerbation: (11) DM II (diabetes mellitus, type II), controlled: (12) Hypothyroidism: Admission and Anticipated Discharge Date Admission Date: December 18, 2023 Supervising Physician Co-Signing Physician Notes Attending Physician Supervision Note: I independently interviewed and examined the patient and verified the [place] history and physical, reviewed labs and image studies and agree with findings and care plan noted above. Breathing better. dizziness better. PT reported her SaO2 dropped to 82% with ambulation. came up quickly to 94% with sitting down. comfortable. JVD not appreciated, RRR, CTA Dizziness - resolved. likely from volume loss from diuresis with underlying orthostasis. Acute on chronic HFrEF with mildly reduced EF - Moderate to severe MR - -on home dose daily bumex once a day. -continue coreg, Pulmonary HTN - Echo 2022 and now PAP 50-60. -sec to left heart ds. -likely contributing to exertional dyspnea. Exertional hypoxia - sec to left heart ds, pul HTN -will get 2 step in am and arrange oxygen. -she is reluctant to having to use oxygen at home - discussed the risk related to hypoxia with her cardiac status. Angina with h/o severe CAD h/o multiple stents - likely small vessel ds -continue Ranexa, coreg, ticagrelor, h/o statin intolerance. nitro removed d/t headache. -aggressive BP control systolic <130. HTN - coreg dose increased to 6.25mgs - avoiding further uptitration to avoid bradycardia. -continue prn hydralazine. BP fluctuating 108-142 systolic. PAF - in sinus. s/p ablation. continue eliquis -dig d/vicki. shouldn't need since now s/p ablation. CKD IV - creatinine stable. anticipate d/c home in am Subjective Patient sitting on the edge of the bed this morning. She describes doing better and feeling better compared to yesterday. The "room-spinning" dizziness that she had experienced for hours yesterday is now resolved. She does still feel slightly lightheaded but is without any headache. Feeling slightly fatigued this morning because she notes did not sleep well last night as roommate was coughing throughout the night. She has been urinating regularly but is having some constipation. She is still having some dyspnea on exertion particularly with getting up to walk around or walk to the restroom. She reports appetite has been good, had monegasque toast this morning and ate all of her breakfast. She denies any pain or discomfort in the neck, jaw, or back. She denies any fever, chills, cough, vomiting, abdominal pain, hematuria, or melena. Review of Systems Review of Systems: All systems reviewed & are unremarkable except as noted in HPI & below Physical Exam Constitutional: Awake, siting on the edge of bed, and well-appearing. Not in acute distress. Neck: Bilateral transmitted carotid murmur. Respiratory: Lungs are cleared to auscultation bilaterally. Normal breathing effort on room air. Cardiovascular: Regular rate and rhythm. 3/6 crescendo decrescendo systolic ejection murmur right upper sternal border. Results & Data Results & Data Vital Signs (Past 12 Hours) Vital Signs Temp Pulse Pulse Resp BP Pulse Ox O2 Del Method 12/21/23 08:11 36.5 C 73 16 147/64 H 97 Nasal Cannula 12/21/23 07:00 70 12/21/23 04:00 36.6 C 70 18 108/63 97 Nasal Cannula 12/21/23 00:00 36.6 C 73 18 135/68 97 Nasal Cannula 12/20/23 23:56 71 O2 Flow Rate 12/21/23 08:11 2 12/21/23 07:00 12/21/23 04:00 2 12/21/23 00:00 2 12/20/23 23:56 Laboratory Results 12/21/23 12/21/23 12/20/23 Range/Units 08:22 06:06 20:34 POC Glucose 163 H 254 H (70-99) mg/dl Magnesium 2.1 (1.7-2.4) mg/dl 12/20/23 12/20/23 Range/Units 17:13 11:47 POC Glucose 135 H 220 H (70-99) mg/dl Magnesium (1.7-2.4) mg/dl (2) Chest pain Chest pain type: unspecified Qualified Code(s): R07.9 - Chest pain, unspecified (11) DM II (diabetes mellitus, type II), controlled Diabetes mellitus complication detail: with nephropathy Diabetes mellitus complication status: with kidney complications Diabetes mellitus retirement insulin use: with retirement use Qualified Code(s): 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
--- NOTE | 2023-12-22 10:05 | Discharge Summary ---
Date of Service December 22, 2023 Admission HPI Per Admitting Provider Ban is an 83 yo female with PMH of HLD, NSTEMI, CVA, paroxysmal afib (on Eliquis), CKD, HFrEF (LVEF of 40-45%), biventricular ICD in place, aortic stenosis s/p TAVR, PAD s/p stenting, Hypothyroidism, Interstitial Lung Dx, Pulmonary HTN, COPD, insulin dependent DMII, and bilateral carotid artery stenosis who presented to the [facility] ED via EMS on 12/18/23 with complaints of ongoing SOB/GOMEZ, substernal chest pressure, and signs of CHF exacerbation on exam. She was noted to be hypertensive at 178/83 on arrival but otherwise stable. Labs were significant for a leukocytosis of 11 with neutrophil predominance of 8, stable renal function, initial high sen trop of 40, and UA with cloudy appearance,. 3+ blood, nitrite negative, 3+ leukocyte esterase, >30 WBC, 10-30 RBC, and bacteria negative. Chest xray was read as "1.Cardiomegaly with evidence of congestive failure and pulmonary edema. 2. Small pleural effusions with dependent consolidation.". ECG shows a ventricular paced rhythm without acute ST segment or T-wave changes. Prior to admission the patient was given 40 mg IV Lasix. At the time of the exam the patient was sitting in bed in no acute distress. she states that over the past 2-3 weeks she has been experiencing progressive GOMEZ, orthopnea, weight gain, and swelling. She normally takes 1mg PO Bumex BID but had been taking 2mg PO BID since 12/15/23 as instructed by the CHF clinic for increased swelling/weight gain without improvement. She watches her sodium and fluid intake closely as well. This am while driving to the Cardiology clinic she developed acute onset of chest pressure across the BL upper chest, increased SOB, and left arm pain from the left elbow down to the left wrist. These symptoms lasted for approximately 20-30 min prior to the Cardiology Clinic arrival. She denies any pain/discomfort in the neck, jaw, or back. When asked, she states that she is still having intermittent episodes of mild chest tightness since arrival, these were exacerbated when she walked to the bathroom earlier. She has noted dysuria over the past 2-3 days but denies fever, chills, cough, nausea, vomiting, abd pain, hematuria, melena, and recent trauma. We discussed code status, she wishes to be a full code and for her children to make medical decisions for her if she cannot make them herself. When asked, she states that her RLE has always been more swollen than the left since her right knee replacement. Please refer to Dr. Lopez's attestation for any changes to the treatment plan Admission Exam Per Admitting Provider Physical Exam: General: In no acute distress, stated age, well-nourished, non-toxic appearing HEENT: Normocephalic, atraumatic, no scleral icterus, pupils around round, symmetrical, and reactive to light, moist mucus membranes, + JVD, trachea midline, no thyromegaly Chest/Pulm: No respiratory distress, symmetrical chest expansion, decreased breath sounds in the BL lower lung humphries with crackles noted in the BL lower and mid lung humphries Cardiac: RRR, 3/6 systolic murmur noted Abdomen: Negative for ascites and bruising, normoactive bowel sounds, soft, mildly tender to palpation in the suprapubic region but otherwise non-tender Musculoskeletal: Symmetrical and without signs of acute trauma, upper and lower extremities with full ROM, no atrophy, spasticity, or flaccidity Extremities: Radial, dorsalis pedis, and posterior tibial pulses are intact and symmetrical, RLE with increased swelling compared to left is at baseline per patient Skin: Warm, dry, no rashes , lesions, or scars noted Neuro: Alert and oriented to person, place, month, year, and president, no focal defects, no tremors noted Psych: No acute distress, calm and cooperative during the exam Principal Diagnosis CHF exacerbation Discharge Exam Constitutional WD/WN, vitals as above Respiratory normal respiratory effort, lungs clear to auscultation Cardiovascular regular rate and rhythm, +systolic ejection murmur radiating to carotids bilaterally, LE with trace pitting edema, no JVD appreciated. Skin no rashes, warm and dry Psychiatric A+Ox3, euthymic affect Discharge Data Allergies Allergy/AdvReac Type Severity Reaction Status Date / Time adhesive Allergy Intermediate REDNESS Verified 12/18/23 11:03 AND IRRITATION FROM PAIN PATCH, TAPE latex Allergy Intermediate ALLERGIC Verified 12/18/23 11:03 TO LATEX TAPE/RASH/ITCHING morphine Allergy Intermediate swelling Verified 12/18/23 11:03 nausea vomiting olmesartan Allergy Unknown UNKNOWN Verified 12/18/23 11:03 benzonatate AdvReac Intermediate confusion Verified 12/18/23 11:03 [From Tesmin Anu] dulaglutide [From Trulicity] AdvReac Intermediate AFFECTS Verified 12/18/23 11:03 MUSCLES exenatide [From Byetta] AdvReac Intermediate Diarrhea Verified 12/18/23 11:03 ezetimibe AdvReac Intermediate MUSCLE Verified 12/18/23 11:03 ACHES glipizide AdvReac Intermediate Diarrhea Verified 12/18/23 11:03 glyburide AdvReac Intermediate Diarrhea Verified 12/18/23 11:03 lisinopril AdvReac Intermediate LIGHTHEADED Verified 12/18/23 11:03 AND DIZZY losartan AdvReac Intermediate dizziness Verified 12/18/23 11:03 metformin AdvReac Intermediate Diarrhea Verified 12/18/23 11:03 pioglitazone AdvReac Intermediate DIARRHEA Verified 12/18/23 11:03 NAUSEA sitagliptin [From Januvia] AdvReac Intermediate Diarrhea Verified 12/18/23 11:03 Iierdvv-PTO-KcP Reductase AdvReac Intermediate myalgias Verified 12/18/23 11:03 Inhibitor and [Fpfqtpe-Bfj-Txg Reductase weakness Inhibitor] aspirin AdvReac Mild GI SYMPTOMS Verified 12/18/23 11:03 Consultations 12/18/23 13:50 ED Decision to Admit Stat 12/18/23 14:29 Consult Cardiology Routine Hospital Course (1) Heart failure with mildly reduced ejection fraction (HFmrEF): (2) Chest pain: (3) CAD (coronary artery disease): (4) Mitral regurgitation: (5) CKD (chronic kidney disease) stage 4, GFR 15-29 ml/min: (6) S/P TAVR (transcatheter aortic valve replacement): (7) Biventricular ICD (implantable cardioverter-defibrillator) in place: (8) Hx of atrioventricular node ablation: (9) UTI (urinary tract infection): (10) CHF exacerbation: (11) DM II (diabetes mellitus, type II), controlled: (12) Hypothyroidism: Plan 83 yo female with PMH of HLD, NSTEMI, CVA, paroxysmal afib (on Eliquis), CKD, HFrEF (LVEF of 40-45%), biventricular ICD in place, aortic stenosis s/p TAVR, PAD s/p stenting, Hypothyroidism, Interstitial Lung Dx, insulin dependent DMII, and bilateral carotid artery stenosis who presented with complaints of ongoing SOB/GOMEZ, substernal chest pressure, and signs of CHF exacerbation on exam. #Chest pain, Acute on chronic HFrEF in exacerbation -Presented from the Cardiology clinic 12/18/23 for ongoing GOMEZ/orthopnea, and an episode of BL chest tightness with left arm pain. Clinically appeared fluid overloaded with 6kg weight gain. BNP on admission in 500s -Troponin peaked at 46. No acute ST segment or T-wave changes on ECG. Likely due to demand ischemia 2/2 CHF -Cardiology consulted, pt diuresed with elevated dose of Bumex, Carvedilol dose also increased. -Returned to home dose of Bumex after diuresis, discharged with new Carvedilol dose of 6.25mg BID -Digoxin discontinued since now s/p ablation. -continue ranexa, ticagrelor. has h/o statin intolerance. #Pulmonary HTN - Echo with PAP 50-60. -PFTs 2020: moderate restrictive physiology with significant bronchodilator response. DLCO was unable to be assessed. Previous pulmonology noted these were taken in the setting of pleural effusion. Advised repeat PFTs but these were never done. Consider outpatient repeat. #HTN - coreg dose increased to 6.25mgs - avoided further uptitration with coreg to avoid bradycardia. #h/o PAF - now s/p ablation. continue eliquis - dig d/vicki. shouldn't need since now s/p ablation. #Dizziness/Vertigo - Resolved: - Acute onset (12/20/23) AM lasting several hours after standing up from bed. [place] like room was spinning with transient visual changes. - Spontaneous resolution without recurrence, head imaging deferred. #DM II (diabetes mellitus, type II), controlled -Held home meds, managed with basal/bolus insulin. resumed home meds on discharge. #Hypothyroidism, CAD, PAF -Continue home meds #CKD IV -Creatinine stable Total Time Total Time Spent Total Time Spent (In Minutes): see attending attestation Discharge Plan Discharge Items Patient Disposition: Home - Self-Care Reason For Visit: CHF EXACERBATION, CHEST PAIN, UTI, ELEVATED TROP Discharge Diagnosis: CHF exacerbation Activity: Resume your previous activity Non-emergency contact: Primary Care Provider and Building Maintenance Worker Call non-emergency contact if: you have any medication questions and your symptoms worsen Follow-up/Referrals: Ebony Alvarenga DO [Primary Care Provider] - 01/01/24 9:20 am (01/01/24 0920) Latrice Mcmanus PA-C [Physician Vice Admiral] - 12/28/23 10:30 am Diet: Heart Healthy Addtl Attending Provider Instructions: You were admitted to the hospital due to chest pain and were treated for a CHF exacerbation. You were also seen by cardiology during your hospital stay and some changes were made to your home medications. Please review the changes, documented below. Please continue to weigh yourself daily and adhere to a low sodium diet. A discharge summary will be sent to your primary care physician to ensure continuity of care. Please bring this discharge summary with you to your next office appointment so that your provider can review it at that time. Medications: Your medication list has been reviewed and reconciled upon discharge to ensure accuracy and continuity of care. An updated list of all your medications is included with your hospital discharge paperwork. Please review this list closely and make note of any changes to your medications. Discontinued Medications: - Digoxin - Please STOP taking this medication New Medications: - Your Carvedilol dose was increased during this hospitalization, the new dose is 6.25mg twice daily Apart from these changes, please continue to take all home medications as previously directed. Follow up appointments: - Make a follow up appointment with your PCP within the next week. It is very important that you follow up with them shortly after discharge from the hospital. - Keep all of your follow up appointments as already scheduled. If you cannot make an appointment, notify your provider. CONTACT YOUR PRIMARY CARE PROVIDER if you experience any of the following: - Difficulty following your treatment plan - Difficulty taking any of your medications CALL 911 OR GO TO THE EMERGENCY DEPARTMENT if you experience any of the following: - Sudden, severe abdominal pain or nausea/vomiting - Severe chest pain or chest pain that radiates to your jaw or arm - Sudden, severe shortness of breath or difficulty breathing Pending Studies at Discharge: No Stand-Alone Forms: [employer], Smoking Cessation Medications and DC Order Prescriptions: New carvedilol 6.25 mg Tablet 6.25 mg PO BID 30 Days Qty: 60 1RF Continued cholecalciferol (vitamin D3) 25 mcg (1,000 unit) capsule 1,000 unit PO QAM trazodone 50 mg tablet 50 mg PO HS PRN (Reason: insomnia) Qty: 90 1RF pantoprazole [Protonix] 40 mg tablet,delayed release (DR/EC) 40 mg PO BID Qty: 180 1RF bumetanide 1 mg tablet 1 mg PO BID Qty: 180 3RF (DME) insulin syringe-needle U-100 0.3 mL 31 gauge x 5/16" syringe See Rx Instructions .Route Qty: 100 3RF Rx Instructions: test three times daily calcitriol [Rocaltrol] 0.25 mcg capsule 0.25 mcg PO 3XWK Qty: 12 1RF Rx Instructions: MONDAY/MONDAY/MONDAY/ IN THE AM Eliquis 2.5 mg tablet 2.5 mg PO BID Qty: 180 3RF (DME) FreeStyle [place] 14 Day Sensor Kit See Rx Instructions .Route Qty: 1 5RF Rx Instructions: Testing BS 4-5 times per day magnesium oxide 400 mg magnesium capsule 400 mg PO QPM Qty: 90 0RF Hold Instructions: hypermagnesemia ranolazine 500 mg tablet extended release 12 hr 500 mg PO BID Qty: 180 3RF fluticasone propionate [Flonase Allergy Relief] 50 mcg/actuation spray,suspension 2 spray intranasal DAILY Qty: 16 3RF mirabegron 25 mg tablet extended release 24 hr 25 mg PO DAILY Qty: 30 2RF gabapentin 100 mg capsule 300 mg PO HS Qty: 90 1RF levothyroxine 75 mcg tablet 75 mcg PO QAM Qty: 90 1RF ondansetron HCl 4 mg tablet 4 mg PO Q8H PRN (Reason: nausea and vomiting) Qty: 30 0RF insulin asp prt-insulin aspart [Novolog Mix 70-30 U-100 Insuln] 100 unit/mL (70-30) solution 15 - 30 unit SUBCUT AMPM Qty: 30 5RF Rx Instructions: Per home sliding scale Brilinta 90 mg tablet 90 mg PO BID Qty: 180 3RF sertraline 50 mg tablet 50 mg PO DAILY Qty: 90 1RF (DME) FreeStyle Rossy 14 Day [place] Misc See Rx Instructions .Route Qty: 6 1RF Rx Instructions: Testing BS 4-5 times per day vitamin E 400 unit capsule 400 unit PO QAM garlic 1,000 mg capsule 1,000 mg PO DAILY senna 8.6 mg capsule 8.6 mg PO DAILY PRN (Reason: constipation) Qty: 10 0RF polyethylene glycol 3350 [Miralax] 17 gram/dose Powder 17 g PO TID Qty: 119 0RF potassium gluconate 595 mg (99 mg) tablet 595 mg PO DAILY PRN (Reason: With Bumex) Rx Instructions: Take 1 tablet if you take a Bumex dose acetaminophen [Tylenol Extra Strength] 500 mg Tablet 1,000 mg PO Q8H PRN (Reason: pain) Qty: 30 0RF Rx Instructions: OTC Discontinued carvedilol 3.125 mg tablet 3.125 mg PO BID Qty: 180 3RF digoxin 125 mcg (0.125 mg) tablet 125 mcg PO 3XWK Qty: 36 1RF Rx Instructions: MONDAY/MONDAY/MONDAY IN THE AM Discharge Orders: Discharge Order (Routine); Ordered 12/22/23 Ordered By: Get Geiger Admission Data Admit Date/Time: 12/18/23 14:08 Attending Provider: Corinne Kumari Admit Provider: Kin Lopez Primary Care Provider: Ebony Alvarenga Other Providers: Kin Lopez; Miller Rice Other Interventions: Discharge Summary Assessment (RN) Last Done: 12/22/23 11:48 Supervising Physician Co-Signing Physician Notes Attending Physician Supervision Note: I independently interviewed and examined the patient and verified the [place] history and physical, reviewed labs and image studies and agree with findings and care plan noted above. Resident Activity Tracking Resident Involvement: Resident Care Provided Care Provided: Adult Hospital Medicine
== END 2023-12-22 14:28 | disposition home or self-care (01) | DRG 292 ==
LOC: ED 11:53 → EDINP 14:08 → SUATTDRO 14:08 → 2N 12-19 02:30

== ENCOUNTER 2024-01-16 13:31 | Inpatient (IN) ==
--- NOTE | 2024-01-16 14:59 | XRay Report ---
XR chest 1V not portable CLINICAL HISTORY: Chest pain, nonspecific COMPARISON STUDY: Chest radiograph December 18, 2023. FINDINGS: Left subclavian pacer/AICD remains in place. There is a prosthetic aortic valve. Cardiomega ly is unchanged. Widening the right paratracheal stripe is unchanged. There is no pneumothorax. Small to moderate right and small left pleural effusions are similar to prior exam. There are associated b ibasilar opacities, greater on the right. Pulmonary edema has slightly improved. IMPRESSION: 1. Persistent pulmonary edema, slightly improved since prior exam. 2. Small to moderate right and small left pleural effusions. Right basilar opacity could reflect pneu monia or atelectasis. Radiographic follow-up to ensure resolution is recommended. ACT 112: Negative or not required by law. Electronically signed by: Cali Jacobo M.D. 01/16/2024 2:58 PM
[2024-01-16 15:00] LABS: Basophils # (auto) 0.05 K/uL (0.00-0.20); Basophils % (auto) 0.5 %; Eosinophils # (auto) 0.21 K/uL (0.00-0.50); Hemoglobin 10.2 g/dl (12.0-16.0); Immature Granulocytes # (auto) 0.04 K/uL (0.01-0.20); Immature Granulocytes % (auto) 0.4 %; Lymphocytes # (auto) 1.76 K/uL (1.20-3.40); Lymphocytes % (auto) 16.9 %; Mean Corpuscular Hemoglobin 28.5 pg (25.0-34.0); Mean Corpuscular Hgb Conc 30.9 g/dL (32.0-36.0); Mean Corpuscular Volume 92.2 fL (80.0-100.0); Mean Platelet Volume 10.8 fL (9.4-12.4); Monocytes # (auto) 1.08 K/uL (0.11-0.59); Monocytes % (auto) 10.4 %; Neutrophils # (auto) 7.25 K/uL (1.40-6.50); Neutrophils % (auto) 69.8 %; Platelet Count 276 K/uL (130-400); RDW Coefficient of Variation 14.6 % (11.5-14.5); RDW Standard Deviation 50.1 fL (36.4-46.3); Red Blood Count 3.58 M/uL (4.20-5.40); White Blood Count 10.39 K/ul (4.8-10.8)
[2024-01-16 15:06] LABS: INR 1.1 (0.9-1.1); Partial Thromboplastin Ratio 1.1; Partial Thromboplastin Time 31 Seconds (21-31); Prothrombin Time 12.2 Seconds (9.0-12.0)
[2024-01-16 15:29] LABS: Alanine Aminotransferase 23 U/L (7-52); Albumin Globulin Ratio 1.2 (0.9-2); Albumin Level 3.9 gm/dl (3.4-5.0); Alkaline Phosphatase 169 U/L (34-104); Anion Gap 9 (3-11); Aspartate Aminotransferase 24 U/L (13-39); BUN Creatinine Ratio 21.7 (10-20); Bilirubin,Total 0.5 mg/dl (0.2-1.0); Blood Urea Nitrogen 49 mg/dl (6-23); Calcium 9.2 mg/dl (8.6-10.3); Carbon Dioxide 29 mmol/L (21-32); Chloride 97 mmol/L (98-107); Est GFR (African American) 22.4 ml/min; Est GFR (Non-African American) 19.3 ml/min; Globulin 3.3 gm/dl (2.5-4.0); Glucose 201 mg/dl (70-99(Fasting)); Magnesium 2.2 mg/dl (1.7-2.4); Potassium 4.2 mmol/L (3.5-5.1); Sodium 135 mmol/L (136-145); Total Protein 7.2 gm/dl (6.0-8.3)
[2024-01-16 15:33] LABS: Troponin I High Sensitivity 33.4 pg/ml (0-14)
[2024-01-16] MEDS: FUROSEMIDE 40 MG/4 ML VIAL IV ONE (17:14)
--- NOTE | 2024-01-16 17:16 | Emergency Department Note ---
Impression & Plan Acute exacerbation of CHF (congestive heart failure), Pleural effusion, Elevated troponin ED Provider Note NAME: ERIC ROLDAN AGE: 83 SEX: F : 1940 ARRIVES VIA: Walk-In INFORMANT: Patient, ED PROVIDER(S): Abhi Rey MD CHIEF COMPLAINT: Shortness of breath, referred by cardiology HPI: This is a an 83-year-old female with history of CHF, anemia, angina, diabetes presenting for shortness of breath. Patient states that she has had acute worsening of her shortness of breath. She is having exertional symptoms with a bandlike pressure when she does walk around. She notes slight leg swelling. She seen by her brake operator today and sent to the ER for suspected fluid overload. Patient notes that she cannot lay flat currently due to shortness of breath. No fevers, chills, nausea or vomiting. ROS: See above HPI for pertinent positives & negatives. A total of 10 systems reviewed and were otherwise negative. PAST MEDICAL HISTORY: See Below PAST SURGICAL HISTORY: See Below FAMILY HISTORY: See Below SOCIAL HISTORY: See Below HOME MEDICATIONS: See Below ALLERGIES: See Below VITALS: See Below PHYSICAL EXAMINATION: General: resting comfortably in no acute distress Head: Normocephalic and atraumatic Eyes: Normal inspection, extraocular muscles intact Ear, nose, throat: Normal external exam Neck: Normal range of motion Respiratory: Crackles at the bases Cardiovascular: Regular rate/rhythm, no murmur GI: soft, nontender, no guarding or rebound Extremities: nontender, moves all extremities Neuro: The patient awake and alert, appropriately conversive, no focal deficits, symmetric faces Skin: Warm, dry, and intact MEDICAL DECISION MAKING: This is an [id number]year[age]old female with history of CHF, anemia, angina, diabetes senting for shortness of breath. Patient is appear clinically fluid overloaded and her lung exam. -ECG independently interpreted by me with ventricularly paced rhythm, rate of 84 left bundle branch block, normal QTc, no ST segment elevations consistent with STEMI criteria -Chest x-ray as independent read by me does reveal a right pleural effusion, with pulmonary vascular congestion -Patient blood work reveals slight anemia, creatinine 2.26 around her previous baseline. Troponin initially 30 with repeat in the 50s. BNP is elevated at 580 as well. She reports no current chest pain. EKG as above. -Patient required admission for CHF exacerbation at this time. - Differential diagnosis: CHF, ACS, PE ER treatment provided: See below Diagnostics interpreted by me: ECG: As above Cardiac Monitoring: An order was placed for continuous cardiac monitoring. The monitor shows a rate of 72 with sinus rhythm. Laboratory studies: As stated above and show below. Imaging studies: See below. Past Med/Surg History Medical History (Updated 01/16/24 @ 22:00 by Abhi Rey MD) Osteoarthritis Orthostasis Hyperlipidemia Acute kidney injury superimposed on chronic kidney disease Non-ST elevation GA (NSTEMI) Depression Nausea and vomiting after administration of anesthetic agent severe PONV s/p Left carotid surgery 09/27/21 at [facility] PAF (paroxysmal atrial fibrillation) History of CVA (cerebrovascular accident) Had RUE weakness and numbness after 09/17/21 breast surgery- CT scan of head negative; unable to do MRI due to ICD Per PCP records 10/22/21= "[place] her post op RUE sx related to possible small stroke/TIA" Breast cancer, right Right breast mastectomy 09/17/21 at [facility] Subclavian artery stenosis Rheumatoid arthritis No medications Followed with rheum in the past- no recent issues Chronic kidney disease STAGE IV-F/U DR SALINAS Diabetes mellitus, type 2 Glucose fluctuates SOB (shortness of breath) on exertion DVT (deep venous thrombosis) LOWER LEG 2019 Ischemic cardiomyopathy Insomnia Biventricular ICD (implantable cardioverter-defibrillator) in place (04/30/20) [employer] implanted 04/30/2020. Capped right ventricular pacing lead Last check 09/2021 Antiplatelet or antithrombotic long-term use Secondary hyperparathyroidism of renal origin Anemia due to chronic kidney disease Chronic obstructive pulmonary disease, unspecified Breathing stable CAD (coronary artery disease) F/U DR CUEVA S/p NATY x 1 to Cx in 2019; NATY to ostial LM 01/10/20 Aortic stenosis, severe S/p TAVR 10/2019 PAD (peripheral artery disease) S/p TEST ENGINE MECHANIC and stenting of right SFA, and TEST ENGINE MECHANIC of left SFA and common femoral artery Spondylosis Pulmonary hypertension RVSP 50-60mmHg on 12/2023 ECHO NSTEMI (non-ST elevated myocardial infarction) Most recent 12/2019 (mild per patient) Chronic combined systolic and diastolic CHF (congestive heart failure) EF 40% per 1/1/22 ECHO GERD (gastroesophageal reflux disease) Hypothyroidism Left bundle branch block Bilateral carotid artery stenosis H/o bilateral CEAs in 2016 Per 07/2021 vascular note- carotid ultrasound from office visit showed patent right CEA with velocities suggesting 50-59% stenosis restenosis Patent left CEA with velocities suggesting 99% restenosis - had re-do of left CEA 09/27/21 Surgical History S/P AV hiren ablation (06/30/22) H/O heart artery stent H/O colonoscopy History of left-sided carotid endarterectomy (09/27/21) redo L CEA, Dr Bateman Status post partial mastectomy of right breast (09/17/21) 09/17/21 - Done under GA with LMA #4. Atraumatic LMA insertion. Magnet placed secondary to pacemaker. Right Breast Partial Mastectomy with [facility] Localization, Right Axillary [place] Lymph Node Biopsy(Right) - Hua Acosta DO History of cardiac cath TOTAL 6? STENTS- 2018 and 2019 S/P coronary artery stent placement (10/2018) NATY prox mid LAD S/P coronary artery stent placement (10/2017) NATY to mid LAD S/P carotid endarterectomy B/l 2016 S/P thoracentesis (03/2020) b/l d/t CHF S/P angioplasty (02/03/21) TEST ENGINE MECHANIC L SFA 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) History of oophorectomy History of hysterectomy History of cholecystectomy H/O: section History of cataract surgery right and left History of appendectomy Family History Daughter Coronary heart disease Diabetes Mother Diabetes Family history of hypercholesterolemia Myocardial infarction Hypertension Stroke Brother Colorectal cancer Father Accident Brother Diabetes Family/Other Myocardial infarction Son Coronary heart disease Hypertension Other Pacemaker Denies family history of Ovarian cancer Prostate cancer Breast cancer Social History Smoking Status: Never smoker Second Hand Exposure: No; Do You Dip or Chew Tobacco: No; Hx Alcohol Use: No Hx Substance Use: No Preferred Language: Qatari Communication Ability: Effective Visual Impairment: No Limitations Hearing Ability: Hard of Hearing Esthetic Dermatologist Required: No Beliefs That Will Affect Care: None marital status: / marital status details: passed 2000 Current Living Situation: Alone current occupational status: retired 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 How many Children do You have: 2 Other Information That Helps Us Care for You: No Feels Safe at Home: Yes Diet: regular caffeine: Yes (1 cup/day) during the past year weight has: remained stable Dental Care, Regularly: No Physical Activity Frequency: Daily Seatbelt Use: always Assistive Devices: Cane, Denture - Upper, Denture - Lower, Glasses, Hearing Aid - Bilateral and Walker Allergies Allergies Allergy/AdvReac Type Severity Reaction Status Date / Time adhesive Allergy Intermediate REDNESS Verified 01/16/24 16:48 AND IRRITATION FROM PAIN PATCH, TAPE latex Allergy Intermediate ALLERGIC Verified 01/16/24 16:48 TO LATEX TAPE/RASH/ITCHING morphine Allergy Intermediate swelling Verified 01/16/24 16:48 nausea vomiting olmesartan Allergy Unknown UNKNOWN Verified 01/16/24 16:48 benzonatate AdvReac Intermediate confusion Verified 01/16/24 16:48 [From Tesmin Brennan] dulaglutide [From Trulicity] AdvReac Intermediate AFFECTS Verified 01/16/24 16:48 MUSCLES exenatide [From Byetta] AdvReac Intermediate Diarrhea Verified 01/16/24 16:48 ezetimibe AdvReac Intermediate MUSCLE Verified 01/16/24 16:48 ACHES glipizide AdvReac Intermediate Diarrhea Verified 01/16/24 16:48 glyburide AdvReac Intermediate Diarrhea Verified 01/16/24 16:48 lisinopril AdvReac Intermediate LIGHTHEADED Verified 01/16/24 16:48 AND DIZZY losartan AdvReac Intermediate dizziness Verified 01/16/24 16:48 metformin AdvReac Intermediate Diarrhea Verified 01/16/24 16:48 pioglitazone AdvReac Intermediate DIARRHEA Verified 01/16/24 16:48 NAUSEA sitagliptin [From Januvia] AdvReac Intermediate Diarrhea Verified 01/16/24 16:48 Cusnasg-DOM-[id number] Reductase AdvReac Intermediate myalgias Verified 01/16/24 16:48 Inhibitor and [Tjhwrjo-Lqu-Opq Reductase weakness Inhibitor] aspirin AdvReac Mild GI SYMPTOMS Verified 01/16/24 16:48 Home Meds Home Medications Medication Instructions Recorded Confirmed vitamin E 268 mg (400 unit) capsule 400 unit PO QAM 03/29/20 01/16/24 cholecalciferol (vitamin D3) 25 1,000 unit PO QAM 05/17/21 01/16/24 mcg (1,000 unit) capsule garlic 1,000 mg capsule 1,000 mg PO DAILY 05/29/23 01/16/24 potassium gluconate 595 mg (99 mg) 595 mg PO DAILY PRN With Bumex 08/25/23 01/16/24 tablet Previous Rx's Medication Instructions Recorded magnesium oxide 400 mg PO QPM #90 caps 04/01/19 trazodone 50 mg tablet 50 mg PO HS PRN insomnia #90 tabs 06/23/22 insulin aspar prt-insulin aspart 15 - 30 unit (0.15 - 0.3 mL) 11/28/22 100 unit/mL (70-30) subcutaneous subcut AMPM #30 mL soln (Novolog Mix 70-30 U-100 Insuln) polyethylene glycol 3350 17 17 g PO TID #119 grams 12/23/22 gram/dose oral powder (Miralax) sennosides 8.6 mg capsule (senna) 8.6 mg PO DAILY PRN constipation 12/23/22 #10 caps flash glucose scanning reader #6 ea 07/24/23 (FreeStyle [place] 14 Day [place]) ticagrelor 90 mg tablet (Brilinta) 90 mg PO BID #180 tabs 07/24/23 fluticasone propionate 50 2 spray intranasal DAILY #16 grams 09/06/23 mcg/actuation nasal spray,suspension (Flonase Allergy Relief) mirabegron 25 mg tablet,extended 25 mg PO DAILY #30 tabs 09/18/23 release 24 hr gabapentin 100 mg capsule 300 mg (3 x 100 mg) PO HS #90 caps 10/23/23 levothyroxine 75 mcg tablet 75 mcg PO QAM #90 tabs 10/27/23 apixaban 2.5 mg tablet (Eliquis) 2.5 mg PO BID #180 tabs 10/30/23 calcitriol 0.25 mcg capsule 0.25 mcg PO 3XWK #12 caps 10/30/23 (Rocaltrol) insulin syringe-needle U-100 0.3 #100 ea 10/30/23 mL 31 gauge x 5/16" acetaminophen 500 mg tablet 1,000 mg (2 x 500 mg) PO Q8H PRN 11/02/23 (Tylenol Extra Strength) pain #30 tabs ranolazine 500 mg tablet,extended 500 mg PO BID #180 tabs 11/14/23 release,12 hr flash glucose sensor (FreeStyle #1 ea 11/24/23 Rossy 14 Day Sensor kit) bumetanide 1 mg tablet 1 mg PO BID Shortness of 12/28/23 breath/weight gain #180 tabs carvedilol 3.125 mg tablet 3.125 mg PO BID #180 tabs 12/28/23 esomeprazole magnesium 40 mg 40 mg PO BID #60 caps 01/01/24 capsule,delayed release (Nexium) ondansetron HCl 8 mg tablet 8 mg PO Q8H PRN nausea and 01/01/24 vomiting #30 tabs sertraline 50 mg tablet 75 mg (1.5 x 50 mg) PO DAILY #135 01/01/24 tabs Results & Data (ED) Vital Signs Vital Signs - 24 hr 01/16/24 13:58 01/16/24 16:12 01/16/24 16:13 Temperature 36.4 C L Temperature Source Temporal Artery Scan Pulse Rate 80 73 Pulse Rate [Apical] 70 Respiratory Rate 16 20 Respiratory Effort / Characteristics Non-Labored Spontaneous Non-Labored Spontaneous Respiratory Depth Normal Normal Blood Pressure 149/84 H Blood Pressure [Right Arm] 178/104 H Blood Pressure Mean 105 Blood Pressure Mean [Right Arm] 128 Blood Pressure Position [Right Arm] Lying Pulse Oximetry 93 96 Oxygen Delivery Method Room Air Room Air Sepsis New/Unexplained Change in Mental Status No Sepsis Action Taken by Nursing No Action Required 01/16/24 16:13 01/16/24 16:13 01/16/24 16:33 Temperature Temperature Source Pulse Rate 70 Pulse Rate [Apical] Respiratory Rate 18 Respiratory Effort / Characteristics Respiratory Depth Blood Pressure Blood Pressure [Right Arm] 176/86 H Blood Pressure Mean Blood Pressure Mean [Right Arm] 116 Blood Pressure Position [Right Arm] Lying Pulse Oximetry 96 96 Oxygen Delivery Method Room Air Room Air Sepsis New/Unexplained Change in Mental Status Sepsis Action Taken by Nursing 01/16/24 17:52 Temperature Temperature Source Pulse Rate Pulse Rate [Apical] 71 Respiratory Rate 20 Respiratory Effort / Characteristics Non-Labored Spontaneous Respiratory Depth Normal Blood Pressure Blood Pressure [Right Arm] 186/101 H Blood Pressure Mean Blood Pressure Mean [Right Arm] 129 Blood Pressure Position [Right Arm] Sitting Pulse Oximetry 96 Oxygen Delivery Method Room Air Sepsis New/Unexplained Change in Mental Status Sepsis Action Taken by Nursing Laboratory Data 01/16/24 14:19 01/16/24 14:19 Lab Results 01/16/24 01/16/24 01/16/24 Range/Units 14:19 16:09 17:27 WBC 10.39 (4.8-10.8) K/ul RBC 3.58 L (4.20-5.40) M/uL Hgb 10.2 L (12.0-16.0) g/dl Hct 33.0 L (37.0-47.0) % MCV 92.2 (80.0-100.0) fL MCH 28.5 (25.0-34.0) pg MCHC 30.9 L (32.0-36.0) g/dL RDW Std Deviation 50.1 H (36.4-46.3) fL RDW Coeff of Manuela 14.6 H (11.5-14.5) % Plt Count 276 (130-400) K/uL MPV 10.8 (9.4-12.4) fL Immature Gran % (Auto) 0.4 % Neut % (Auto) 69.8 % Lymph % (Auto) 16.9 % [place] % (Auto) 10.4 % Eos % (Auto) 2.0 % Baso % (Auto) 0.5 % Neut # (Auto) 7.25 H (1.40-6.50) K/uL Lymph # (Auto) 1.76 (1.20-3.40) K/uL [place] # (Auto) 1.08 H (0.11-0.59) K/uL Eos # (Auto) 0.21 (0.00-0.50) K/uL Baso # (Auto) 0.05 (0.00-0.20) K/uL Immature Gran # (Auto) 0.04 (0.01-0.20) K/uL PT 12.2 H (9.0-12.0) Seconds INR 1.1 (0.9-1.1) APTT 31 (21-31) Seconds PTT Ratio 1.1 Sodium 135 L (136-145) mmol/L Potassium 4.2 (3.5-5.1) mmol/L Chloride 97 L (98-107) mmol/L Carbon Dioxide 29 (21-32) mmol/L Anion Gap 9 (3-11) BUN 49 H (6-23) mg/dl Creatinine 2.26 H (0.6-1.2) mg/dl Est Cr Clr Drug Dosing Not Reportable Est GFR ( Amer) 22.4 ml/min Est GFR (Non-Af Amer) 19.3 ml/min BUN/Creatinine Ratio 21.7 H (10-20) Glucose 201 H (70-99(Fasting)) mg/dl POC Glucose 143 H (70-99) mg/dl Calcium 9.2 (8.6-10.3) mg/dl Magnesium 2.2 (1.7-2.4) mg/dl Total Bilirubin 0.5 (0.2-1.0) mg/dl AST 24 (13-39) U/L ALT 23 (7-52) U/L Alkaline Phosphatase 169 H (34-104) U/L Troponin I High Sens 33.4 H 50.2 H* D (0-14) pg/ml B-Natriuretic Peptide 580 H (0-100) pg/ml Total Protein 7.2 (6.0-8.3) gm/dl Albumin 3.9 (3.4-5.0) gm/dl Globulin 3.3 (2.5-4.0) gm/dl Albumin/Globulin Ratio 1.2 (0.9-2) Procalcitonin 0.03 (0-0.5) ng/ml TSH 1.330 (0.300-4.500) uIu/ml Administered Medications Apixaban (Apixaban 2.5 Mg Tab) 2.5 mg PO BID ANDREW Stop: 02/15/24 20:59 Last Admin: 01/16/24 21:29 Dose: 2.5 mg Documented By: ACC Carvedilol (Carvedilol 3.125 Mg Tab) 3.125 mg PO BIDM ANDREW Stop: 02/15/24 20:59 Last Admin: 01/16/24 21:28 Dose: 3.125 mg Documented By: ACC Gabapentin (Gabapentin 300 Mg Cap) 300 mg PO HS ANDREW Stop: 02/15/24 20:59 Last Admin: 01/16/24 21:28 Dose: 300 mg Documented By: ACC Insulin Aspart (Insulin Aspart Per Unit Charge) 0 units SC ACHS ANDREW Stop: 02/15/24 20:59 Last Admin: 01/16/24 21:34 Dose: Not Given Documented By: ACC Co-signed By: MIGUELINA Insulin Glargine (Lantus Per Unit Charge) 5 units SQ BID ANDREW Stop: 02/15/24 20:59 Last Admin: 01/16/24 21:33 Dose: 5 units Documented By: ACC Co-signed By: MIGUELINA Magnesium Oxide (Magnesium Oxide 400 Mg Tab) 400 mg PO QPM ANDREW Stop: 02/15/24 20:59 Last Admin: 01/16/24 21:28 Dose: 400 mg Documented By: ACC Ticagrelor (Ticagrelor 90 Mg Tab) 90 mg PO BID ANDREW Stop: 02/15/24 20:59 Last Admin: 01/16/24 21:29 Dose: 90 mg Documented By: ACC Discontinued Medications Famotidine (Famotidine 20 Mg Tab) 20 mg PO NOW ONE Stop: 01/16/24 18:28 Last Admin: 01/16/24 18:39 Dose: 20 mg Documented By: CC Furosemide (Furosemide 40 Mg/4 Ml Vial) 40 mg IV ONE ONE Stop: 01/16/24 17:06 Last Admin: 01/16/24 17:14 Dose: 40 mg Documented By: CC Imaging Data Radiologist's Impression: Chest X-Ray 01/16/24 14:01 XR chest 1V not portable CLINICAL HISTORY: Chest pain, nonspecific COMPARISON STUDY: Chest radiograph December 18, 2023. FINDINGS: Left subclavian pacer/AICD remains in place. There is a prosthetic aortic valve. Cardiomegaly is unchanged. Widening the right paratracheal stripe is unchanged. There is no pneumothorax. Small to moderate right and small left pleural effusions are similar to prior exam. There are associated bibasilar opacities, greater on the right. Pulmonary edema has slightly improved. IMPRESSION: 1. Persistent pulmonary edema, slightly improved since prior exam. 2. Small to moderate right and small left pleural effusions. Right basilar opacity could reflect pneumonia or atelectasis. Radiographic follow-up to ensure resolution is recommended. ACT 112: Negative or not required by law. Electronically signed by: aCli Jacobo M.D. 01/16/2024 2:58 PM Discharge Plan Visit Data Chief Complaint: Referred by Doctor Stated Complaint: POSSIBLE FEEELING UP W/FLUID REFERRED BY ED Provider: Abhi Rey Discharge Problem: Acute exacerbation of CHF (congestive heart failure), Pleural effusion, Elevated troponin Patient Disposition: Admitted As Inpatient Discharge Instructions Interventions: ED Discharge Assessment Last Done: 01/16/24 18:43
--- NOTE | 2024-01-16 17:56 | History & Physical Report ---
Date of Service January 16, 2024 Assessment & Plan (1) CHF exacerbation: Plan: -Admit to med/tele with pulse oximetry -Currently hemodynamically stable and stable on RA -Presented to the ED for ongoing weight gain and SOB with poor response to PO bumex outpatient -Noted to be up approximately 9 lbs from her last admission at the beginning of December -Has known HFrEF with new severe mitral regurgitation as of echo from 12/18/23 -Noted to have ongoing pulmonary edema and BL pleural effusions -S/P 40 mg IV lasix in the ED -Will hold further IV diuresis tonight but plan to start her on 2mg IV bumex BID17 tomorrow -Will consult cardiology to follow as they assisted during last admission and follow her outpatient -Monitor intake/output q-shift and daily weights -Home Eliquis for DVT PPX -HH/DMII diet with 2gm sodium and 1800 mL fluid restrictions -AM CBC, BMP, mag, PT/INR (2) Elevated troponin: Plan: -Initial high sen trop elevated at 33 -->50 on 2 hour repeat -No acute ST segment or T-wave changes on ECG today -Patient denies chest pain -Likely due to demand as this is how she typically presents on previous admissions for CHF exacerbations -Continue to monitor on tele -Will trend high sen trop overnight to ensure it remains stable -Cardiology consult placed (3) SOB (shortness of breath): Plan: -Most likely due to her CHF exacerbation -Has also noted increased orthopnea -CXR today mentioned Right basilar opacity which represent a PNA vs atelectasis -Will add on procal now -Incentive spirometry, flutter therapy -PRN O2 to keep SpO2 at or above 94% (4) GERD (gastroesophageal reflux disease): Plan: -Reflux symptoms have been uncontrolled on Esomeprazole -Will try pantoprazole and famotidine while admitted -Monitor for improvement (5) DM II (diabetes mellitus, type II), controlled: Plan: -Monitor BSG ACHS, goal is 110-160 -Start 5 units lantus BID as she has been eating less recently with her reflux symptoms -Start CF of 50 and CR of 15 for now -Adjust regimen as needed (6) PAF (paroxysmal atrial fibrillation): Plan: -Currently in a paced rhythm -Continue eliquis and carvedilol (7) S/P coronary artery stent placement: Plan: -Continue Brilinta (8) Bilateral carotid artery stenosis: Plan: -Continue Brilinta (9) Hypothyroidism: Plan: -Continue levothyroxine Plan The patient was discussed with Dr. Lopez at the time of admission History of Present Illness Chief Complaint: SOB, volume overload Primary Care Provider: Ebony Alvarenga DO Ban is an 83 yo female with PMH of HLD, NSTEMI, CVA, paroxysmal afib (on Eliquis), CKD, HFrEF (LVEF of 40-45%), biventricular ICD in place, aortic stenosis s/p TAVR, PAD s/p stenting, Hypothyroidism, Interstitial Lung Dx, Pulmonary HTN, COPD, insulin dependent DMII, and bilateral carotid artery stenosis who presented to the [facility] ED on 01/16/24 from the [facility] due to concerns for progressive SOB, GOMEZ, and volume overload. Patient's weight is up approximately 9 lbs today compared to 12/22/23 and up 20 lbs compared to previous baseline. On arrival to the ED she was noted to be hypertensive at 178/104 but was otherwise stable. Labs were significant for an initial high sen trop of 33 -->50 on 2 hour repeat, BNP of 580 (up from 553 on last admission for CHF). Chest xray was read as "1. Persistent pulmonary edema, slightly improved since prior exam. 2. Small to moderate right and small left pleural effusions. Right basilar opacity could reflect pneumonia or atelectasis. Radiographic follow-up to ensure resolution is recommended.". Prior to admission the patient was given 40 mg IV lasix. At the time of the exam the patient was sitting in bed in no acute distress with her daughter sitting bedside. The patient states that since her discharge home on 12/22/23 she has had progressive weight gain/swelling. She initially went back to her normal 1 mg PO Bumex BID for weight gain. However, she states that she was not urinating well on this dose. She was told to increase her dose of bumex to 2mg PO BID and even increased her dose to 2mg in the am and 4 mg in the afternoon but her urine output did not increase and her weight continued to increase. She denies recent chest pain, pleuritic chest pain, hemoptysis, dysuria, hematuria, melena, diarrhea, and recent trauma. She also also been experiencing increased nausea and reflux symptoms over the past month. She has been taking her Esomeprazole as prescribed without improvement. She is a full code and would want her daughter to make medical decisions for her if she cannot make them herself. Please refer to Dr. Lopez's attestation for any changes to the treatment plan Allergies Allergy/AdvReac Type Severity Reaction Status Date / Time adhesive Allergy Intermediate REDNESS Verified 01/16/24 16:48 AND IRRITATION FROM PAIN PATCH, TAPE latex Allergy Intermediate ALLERGIC Verified 01/16/24 16:48 TO LATEX TAPE/RASH/ITCHING morphine Allergy Intermediate swelling Verified 01/16/24 16:48 nausea vomiting olmesartan Allergy Unknown UNKNOWN Verified 01/16/24 16:48 benzonatate AdvReac Intermediate confusion Verified 01/16/24 16:48 [From Tessalon Perlluis fernando] dulaglutide [From Trulicity] AdvReac Intermediate AFFECTS Verified 01/16/24 16:48 MUSCLES exenatide [From Byetta] AdvReac Intermediate Diarrhea Verified 01/16/24 16:48 ezetimibe AdvReac Intermediate MUSCLE Verified 01/16/24 16:48 ACHES glipizide AdvReac Intermediate Diarrhea Verified 01/16/24 16:48 glyburide AdvReac Intermediate Diarrhea Verified 01/16/24 16:48 lisinopril AdvReac Intermediate LIGHTHEADED Verified 01/16/24 16:48 AND DIZZY losartan AdvReac Intermediate dizziness Verified 01/16/24 16:48 metformin AdvReac Intermediate Diarrhea Verified 01/16/24 16:48 pioglitazone AdvReac Intermediate DIARRHEA Verified 01/16/24 16:48 NAUSEA sitagliptin [From Januvia] AdvReac Intermediate Diarrhea Verified 01/16/24 16:48 Twekmke-EEQ-MvF Reductase AdvReac Intermediate myalgias Verified 01/16/24 16:48 Inhibitor and [Sjhzcvx-Exc-Bmi Reductase weakness Inhibitor] aspirin AdvReac Mild GI SYMPTOMS Verified 01/16/24 16:48 Home Medications Medication Instructions Recorded Confirmed Type magnesium oxide 400 mg PO QPM #90 caps 04/01/19 01/16/24 Rx vitamin E 268 mg (400 unit) capsule 400 unit PO QAM 03/29/20 01/16/24 History cholecalciferol (vitamin D3) 25 1,000 unit PO QAM 05/17/21 01/16/24 History mcg (1,000 unit) capsule trazodone 50 mg tablet 50 mg PO HS PRN insomnia #90 tabs 06/23/22 01/16/24 Rx insulin aspar prt-insulin aspart 15 - 30 unit (0.15 - 0.3 mL) 11/28/22 01/16/24 Rx 100 unit/mL (70-30) subcutaneous subcut AMPM #30 mL soln (Novolog Mix 70-30 U-100 Insuln) polyethylene glycol 3350 17 17 g PO TID #119 grams 12/23/22 01/16/24 Rx gram/dose oral powder (Miralax) sennosides 8.6 mg capsule (senna) 8.6 mg PO DAILY PRN constipation 12/23/22 01/16/24 Rx #10 caps garlic 1,000 mg capsule 1,000 mg PO DAILY 05/29/23 01/16/24 History flash glucose scanning reader #6 ea 07/24/23 01/01/24 Rx (FreeStyle Rossy 14 Day [place]) ticagrelor 90 mg tablet (Brilinta) 90 mg PO BID #180 tabs 07/24/23 01/16/24 Rx potassium gluconate 595 mg (99 mg) 595 mg PO DAILY PRN With Bumex 08/25/23 01/16/24 History tablet fluticasone propionate 50 2 spray intranasal DAILY #16 grams 09/06/23 01/16/24 Rx mcg/actuation nasal spray,suspension (Flonase Allergy Relief) mirabegron 25 mg tablet,extended 25 mg PO DAILY #30 tabs 09/18/23 01/16/24 Rx release 24 hr gabapentin 100 mg capsule 300 mg (3 x 100 mg) PO HS #90 caps 10/23/23 01/16/24 Rx levothyroxine 75 mcg tablet 75 mcg PO QAM #90 tabs 10/27/23 01/16/24 Rx apixaban 2.5 mg tablet (Eliquis) 2.5 mg PO BID #180 tabs 10/30/23 01/16/24 Rx calcitriol 0.25 mcg capsule 0.25 mcg PO 3XWK #12 caps 10/30/23 01/16/24 Rx (Rocaltrol) insulin syringe-needle U-100 0.3 #100 ea 10/30/23 01/01/24 Rx mL 31 gauge x 5/16" acetaminophen 500 mg tablet 1,000 mg (2 x 500 mg) PO Q8H PRN 11/02/23 01/16/24 Rx (Tylenol Extra Strength) pain #30 tabs ranolazine 500 mg tablet,extended 500 mg PO BID #180 tabs 11/14/23 01/16/24 Rx release,12 hr flash glucose sensor (FreeStyle #1 ea 11/24/23 01/01/24 Rx Rossy 14 Day Sensor kit) bumetanide 1 mg tablet 1 mg PO BID Shortness of 12/28/23 01/16/24 Rx breath/weight gain #180 tabs carvedilol 3.125 mg tablet 3.125 mg PO BID #180 tabs 12/28/23 01/16/24 Rx esomeprazole magnesium 40 mg 40 mg PO BID #60 caps 01/01/24 01/16/24 Rx capsule,delayed release (Nexium) ondansetron HCl 8 mg tablet 8 mg PO Q8H PRN nausea and 01/01/24 01/16/24 Rx vomiting #30 tabs sertraline 50 mg tablet 75 mg (1.5 x 50 mg) PO DAILY #135 01/01/24 01/16/24 Rx tabs Past Med/Surg History Medical History (Updated 01/16/24 @ 13:32 by Latrice Mcmanus PA-C) Osteoarthritis Orthostasis Hyperlipidemia Acute kidney injury superimposed on chronic kidney disease Non-ST elevation MD (NSTEMI) Depression Nausea and vomiting after administration of anesthetic agent severe PONV s/p Left carotid surgery 09/27/21 at [facility] PAF (paroxysmal atrial fibrillation) History of CVA (cerebrovascular accident) Had RUE weakness and numbness after 09/17/21 breast surgery- CT scan of head negative; unable to do MRI due to ICD Per PCP records 10/22/21= "[place] her post op RUE sx related to possible small stroke/TIA" Breast cancer, right Right breast mastectomy 09/17/21 at [facility] Subclavian artery stenosis Rheumatoid arthritis No medications Followed with rheum in the past- no recent issues Chronic kidney disease STAGE IV-F/U DR SALINAS Diabetes mellitus, type 2 Glucose fluctuates SOB (shortness of breath) on exertion DVT (deep venous thrombosis) LOWER LEG 2020 Ischemic cardiomyopathy Insomnia Biventricular ICD (implantable cardioverter-defibrillator) in place (04/30/20) [employer] implanted 04/30/2020. Capped right ventricular pacing lead Last check 09/2021 Antiplatelet or antithrombotic long-term use Secondary hyperparathyroidism of renal origin Anemia due to chronic kidney disease Chronic obstructive pulmonary disease, unspecified Breathing stable CAD (coronary artery disease) F/U DR CUEVA S/p NATY x 1 to Cx in 2018; NATY to ostial LM 01/10/20 Aortic stenosis, severe S/p TAVR 10/2019 PAD (peripheral artery disease) S/p HEARING DOG TRAINER and stenting of right SFA, and HEARING DOG TRAINER of left SFA and common femoral artery Spondylosis Pulmonary hypertension RVSP 50-60mmHg on 12/2023 ECHO NSTEMI (non-ST elevated myocardial infarction) Most recent 12/2019 (mild per patient) Chronic combined systolic and diastolic CHF (congestive heart failure) EF 40% per 10/16/21 ECHO GERD (gastroesophageal reflux disease) Hypothyroidism Left bundle branch block Bilateral carotid artery stenosis H/o bilateral CEAs in 2016 Per 07/2021 vascular note- carotid ultrasound from office visit showed patent right CEA with velocities suggesting 50-59% stenosis restenosis Patent left CEA with velocities suggesting 99% restenosis - had re-do of left CEA 09/27/21 Surgical History S/P AV hiren ablation (06/30/22) H/O heart artery stent H/O colonoscopy History of left-sided carotid endarterectomy (09/27/21) redo L CEA, Dr Bateman Status post partial mastectomy of right breast (09/17/21) 09/17/21 - Done under [place] with LMA #4. Atraumatic LMA insertion. Magnet placed secondary to pacemaker. Right Breast Partial Mastectomy with [employer] Analyst Localization, Right Axillary [place] Lymph Node Biopsy(Right) - Hua Acosta DO History of cardiac cath TOTAL 6? STENTS- 2018 and 2019 S/P coronary artery stent placement (10/2018) NATY prox mid LAD S/P coronary artery stent placement (10/2017) NATY to mid LAD S/P carotid endarterectomy B/l 2016 S/P thoracentesis (03/2020) b/l d/t CHF S/P angioplasty (02/03/21) HEARING DOG TRAINER L SFA 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) History of oophorectomy History of hysterectomy History of cholecystectomy H/O: section History of cataract surgery right and left History of appendectomy Family History Daughter Coronary heart disease Diabetes Mother Diabetes Family history of hypercholesterolemia Myocardial infarction Hypertension Stroke Brother Colorectal cancer Father Accident Brother Diabetes Family/Other Myocardial infarction Son Coronary heart disease Hypertension Other Pacemaker Denies family history of Ovarian cancer Prostate cancer Breast cancer Social History Smoking Status: Never smoker Second Hand Exposure: No; Do You Dip or Chew Tobacco: No; Hx Alcohol Use: No Hx Substance Use: No Preferred Language: Amharic Communication Ability: Effective Visual Impairment: No Limitations Hearing Ability: Hard of Hearing Manager Stylist Required: No Beliefs That Will Affect Care: None marital status: / marital status details: passed 2000 Current Living Situation: Alone current occupational status: retired 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 How many Children do You have: 2 Feels Safe at Home: Yes Diet: regular caffeine: Yes (1 cup/day) during the past year weight has: remained stable Dental Care, Regularly: No Physical Activity Frequency: Daily Seatbelt Use: always Assistive Devices: Cane and Walker Physical Exam Physical Exam: Physical Exam: General: In no acute distress, stated age, well-nourished, good hygiene HEENT: Normocephalic, atraumatic, no scleral icterus, pupils around round, symmetrical, and reactive to light, +JVD, moist mucus membranes, trachea midline, no thyromegaly Chest/Pulm: No respiratory distress, symmetrical chest expansion, decreased breath sounds in the BL lower and mid lung humphries with clear BL upper lung humphries Cardiac: RRR, click from prosthetic aortic valve noted Abdomen: Negative for ascites and bruising, normoactive bowel sounds, soft, mild discomfort noted in the epigastric region Musculoskeletal: Symmetrical and without signs of acute trauma, upper and lower extremities with full ROM, no atrophy, spasticity, or flaccidity Extremities: Radial, dorsalis pedis, and posterior tibial pulses are intact and symmetrical, 2+ edema noted in the BL LE's Skin: Warm, dry, no rashes , lesions, or scars noted Neuro: Alert and oriented to person, place, month, year, and president, no focal defects, no tremors noted Psych: No acute distress, calm and cooperative during the exam Results & Data Results & Data Vital Signs (Past 12 Hours) Vital Signs Temp Pulse Pulse Resp BP BP Pulse Ox 01/16/24 16:33 176/86 H 01/16/24 16:13 70 18 96 01/16/24 16:13 96 01/16/24 16:13 70 20 178/104 H 96 01/16/24 16:12 73 01/16/24 13:58 36.4 C L 80 16 149/84 H 93 O2 Del Method 01/16/24 16:33 01/16/24 16:13 Room Air 01/16/24 16:13 Room Air 01/16/24 16:13 Room Air 01/16/24 16:12 01/16/24 13:58 Room Air Laboratory Results Abnormal lab results 01/16/24 01/16/24 01/16/24 Range/Units 14:19 16:09 17:27 RBC 3.58 L (4.20-5.40) M/uL Hgb 10.2 L (12.0-16.0) g/dl Hct 33.0 L (37.0-47.0) % MCHC 30.9 L (32.0-36.0) g/dL RDW Std Deviation 50.1 H (36.4-46.3) fL RDW Coeff of Manuela 14.6 H (11.5-14.5) % Neut # (Auto) 7.25 H (1.40-6.50) K/uL Mcleod # (Auto) 1.08 H (0.11-0.59) K/uL PT 12.2 H (9.0-12.0) Seconds Sodium 135 L (136-145) mmol/L Chloride 97 L (98-107) mmol/L BUN 49 H (6-23) mg/dl Creatinine 2.26 H (0.6-1.2) mg/dl BUN/Creatinine Ratio 21.7 H (10-20) Glucose 201 H (70-99(Fasting)) mg/dl POC Glucose 143 H (70-99) mg/dl Alkaline Phosphatase 169 H (34-104) U/L Troponin I High Sens 33.4 H 50.2 H* D (0-14) pg/ml B-Natriuretic Peptide 580 H (0-100) pg/ml Diagnostic Findings Chest X-Ray 01/16/24 14:01 XR chest 1V not portable CLINICAL HISTORY: Chest pain, nonspecific COMPARISON STUDY: Chest radiograph December 18, 2023. FINDINGS: Left subclavian pacer/AICD remains in place. There is a prosthetic aortic valve. Cardiomegaly is unchanged. Widening the right paratracheal stripe is unchanged. There is no pneumothorax. Small to moderate right and small left pleural effusions are similar to prior exam. There are associated bibasilar opacities, greater on the right. Pulmonary edema has slightly improved. IMPRESSION: 1. Persistent pulmonary edema, slightly improved since prior exam. 2. Small to moderate right and small left pleural effusions. Right basilar opacity could reflect pneumonia or atelectasis. Radiographic follow-up to ensure resolution is recommended. ACT 112: Negative or not required by law. Electronically signed by: Cali Jacobo M.D. 01/16/2024 2:58 PM ECG Additional Comments: Ventricular-paced rhythm Biventricular pacemaker detected Abnormal ECG When compared with ECG of 18-DEC-2023 11:59, Vent. rate has decreased BY 6 BPM Code Status & VTE Plan Code Status Full code VTE Prophylaxis Plan VTE Prophylaxis will be ordered: Yes Supervising Physician Co-Signing Physician Notes Patient seen and examined, chart reviewed, case discussed with Yao Johnson and I agree with the assessment and plan as above except as otherwise noted Labs and images reviewed 83yo F iwth a PMHx of NSTEMI, HFrEF, bivent-ICD, s/p TAVR, PAD s/p stenting, ILD, and history of mildly elevated troponins who presents with volume overload and 9lb weight gain. Has been taking home bumex and even increased this to 2mg BID, then 2mg AM/4mg PM but was not diuresing with this. No TRACY.On exam lungs diminisehd with crackles in the bases, +JVD to the angle of the mandible, and 2+ CHRISSIE bilaterally. She presents with volume overload and suspected associated demand ischemia, chest x-ray and clinical exam is consistent with CHF. No signs of ACS/chest pain. Agree with IV diuresis at this time. If IV diuresis without brisk response can add adjunct metolazone. Cardiology consulted. Agree with assessment and management as above. PG Care Time/CCT Total # of Minutes Spent Total Time Spent with Patient: Total time spent is greater than 50% in coordination of care (as documented) at patient's floor/unit and/or counseling patient: Coding [place] [address] INT INP/OBS CARE 3/75MIN Patient Type Established Medical Decision Making High Complexity Diagnoses CHF exacerbation I50.9 Elevated troponin R77.8 SOB (shortness of breath) R06.02 GERD (gastroesophageal reflux disease) K21.9 Controlled type 2 diabetes mellitus with diabetic nephropathy, with long-term current use of insulin E11.21; Z79.4 Diabetes mellitus complication detail: with nephropathy Diabetes mellitus complication status: with kidney complications Diabetes mellitus bed bug exterminator insulin use: with bed bug exterminator use PAF (paroxysmal atrial fibrillation) I48.0 S/P coronary artery stent placement Z95.5 Bilateral carotid artery stenosis I65.23 Acquired hypothyroidism E03.9 Hypothyroidism type: acquired (5) DM II (diabetes mellitus, type II), controlled Diabetes mellitus complication detail: with nephropathy Diabetes mellitus complication status: with kidney complications Diabetes mellitus group home insulin use: with group home use Qualified Code(s): E11.21 - Type 2 diabetes mellitus with diabetic nephropathy; Z79.4 - adjunct faculty for medical terminology (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 (9) Hypothyroidism Hypothyroidism type: acquired Qualified Code(s): E03.9 - Hypothyroidism, unspecified
[2024-01-16] MEDS ORDERED: GLUCOSE 10 TAB/TUBE PO PRN (18:21)
[2024-01-16] MEDS ORDERED: GLUCAGON FOR INJ 1 MG VIAL SQ PRN (18:21)
[2024-01-16] MEDS ORDERED: GLUCOSE 40% GEL 15 GM TUBE PO PRN (18:21)
[2024-01-16] MEDS ORDERED: CARBOHYDRATES FOR HYPOGLYCEMIA PO PRN (18:21)
[2024-01-16] MEDS ORDERED: DEXTROSE 50% 50 ML SYRINGE IV PRN (18:21)
[2024-01-16] MEDS: FAMOTIDINE 20 MG TAB PO ONE (18:39)
[2024-01-16] MEDS ORDERED: BUMETANIDE 2 MG in SYRINGE 0 ML IV ONE (21:00)
[2024-01-16] MEDS: GABAPENTIN 300 MG CAP PO SCH (21:28)
[2024-01-16] MEDS: carvediloL 3.125 MG TAB PO SCH (21:28)
[2024-01-16] MEDS: MAGNESIUM OXIDE 400 MG TAB PO SCH (21:28)
[2024-01-16] MEDS: APIXABAN 2.5 MG TAB PO SCH (21:29)
[2024-01-16] MEDS: TICAGRELOR 90 MG TAB PO SCH (21:29)
[2024-01-16] MEDS: LANTUS PER UNIT CHARGE SQ SCH (21:33)
[2024-01-16] MEDS: INSULIN ASPART PER UNIT CHARGE SC SCH (21:34)
[2024-01-17] MEDS: ONDANSETRON INJ 2 MG/ML 2 ML VIAL IV PRN (03:21)
[2024-01-17] MEDS: CALCIUM CARBONATE 500 MG CHEWABLE TAB ONE (03:22)
[2024-01-17] MEDS: LEVOTHYROXINE SODIUM 75 MCG TABLET PO SCH (05:49)
[2024-01-17 06:16] LABS: Basophils # (auto) 0.05 K/uL (0.00-0.20); Basophils % (auto) 0.5 %; Eosinophils # (auto) 0.24 K/uL (0.00-0.50); Eosinophils % (auto) 2.3 %; Hematocrit (blood only) 33.5 % (37.0-47.0); Hemoglobin 10.3 g/dl (12.0-16.0); Immature Granulocytes # (auto) 0.03 K/uL (0.01-0.20); Immature Granulocytes % (auto) 0.3 %; Lymphocytes # (auto) 1.67 K/uL (1.20-3.40); Mean Corpuscular Hemoglobin 28.4 pg (25.0-34.0); Mean Corpuscular Hgb Conc 30.7 g/dL (32.0-36.0); Mean Corpuscular Volume 92.3 fL (80.0-100.0); Mean Platelet Volume 10.5 fL (9.4-12.4); Monocytes % (auto) 10.5 %; Neutrophils # (auto) 7.37 K/uL (1.40-6.50); Neutrophils % (auto) 70.4 %; Platelet Count 277 K/uL (130-400); RDW Coefficient of Variation 14.6 % (11.5-14.5); RDW Standard Deviation 49.2 fL (36.4-46.3); Red Blood Count 3.63 M/uL (4.20-5.40); White Blood Count 10.46 K/ul (4.8-10.8)
[2024-01-17 06:22] LABS: INR 1.2 (0.9-1.1); Prothrombin Time 12.6 Seconds (9.0-12.0)
[2024-01-17 06:58] LABS: BUN Creatinine Ratio 22.2 (10-20); Calcium 8.9 mg/dl (8.6-10.3); Creatinine Clr Calc Pharmacy 22.7 ml/min; Est GFR (African American) 25.5 ml/min; Magnesium 2.1 mg/dl (1.7-2.4); Potassium 4.1 mmol/L (3.5-5.1)
[2024-01-17 07:20] LABS: Troponin I High Sensitivity 67.1 pg/ml (0-14)
[2024-01-17] MEDS: VIBEGRON 75 MG TAB PO SCH (08:26)
[2024-01-17] MEDS: BUMETANIDE 2 MG in SYRINGE 0 ML IV SCH (08:26)
[2024-01-17] MEDS: traZODone HCL 50 MG TAB PO PRN (08:26)
[2024-01-17] MEDS: FAMOTIDINE 20 MG TAB PO SCH (08:26)
[2024-01-17] MEDS: SERTRALINE HCL 50 MG TABLET PO SCH (08:26)
[2024-01-17] MEDS: PANTOprazole 40 MG TAB PO SCH (08:27)
--- NOTE | 2024-01-17 14:45 | Hospitalist Progress Note ---
Date of Service January 17, 2024 Assessment & Plan (1) CHF exacerbation: Plan: -Admit to med/tele with pulse oximetry -Currently hemodynamically stable and stable on RA -Presented to the ED for ongoing weight gain and SOB with poor response to PO bumex outpatient -Noted to be up approximately 9 lbs from her last admission at the beginning of December -Has known HFrEF with new severe mitral regurgitation as of echo from 12/18/23 -Noted to have ongoing pulmonary edema and BL pleural effusions -S/P 40 mg IV lasix in the ED -Currently on 2 mg IV twice daily Renal function stable -Cardiology consulted -Monitor intake/output q-shift and daily weights -Home Eliquis for DVT PPX (2) Elevated troponin: Plan: -Initial high sen trop elevated -No acute ST segment or T-wave changes on ECG today -Patient denies chest pain -Likely due to demand as this is how she typically presents on previous admissions for CHF exacerbations -Continue to monitor on tele -Cardiology consult placed (3) SOB (shortness of breath): Plan: -Most likely due to her CHF exacerbation -Has also noted increased orthopnea -CXR today mentioned Right basilar opacity which represent atelectasis Pro-Jose level negative -Incentive spirometry, flutter therapy -PRN O2 to keep SpO2 at or above 94% (4) GERD (gastroesophageal reflux disease): Plan: -Reflux symptoms have been uncontrolled on Esomeprazole -Will try pantoprazole and famotidine while admitted -Monitor for improvement (5) DM II (diabetes mellitus, type II), controlled: Plan: -Monitor BSG ACHS, goal is 110-160 -Start 5 units lantus BID as she has been eating less recently with her reflux symptoms -Start CF of 50 and CR of 15 for now -Adjust regimen as needed (6) PAF (paroxysmal atrial fibrillation): Plan: -Currently in a paced rhythm -Continue eliquis and carvedilol (7) S/P coronary artery stent placement: Plan: -Continue Brilinta (8) Bilateral carotid artery stenosis: Plan: -Continue Brilinta (9) Hypothyroidism: Plan: -Continue levothyroxine Admission and Anticipated Discharge Date Admission Date: January 16, 2024 Subjective Patient says she feels better overall. Her belly feels softer. She is breathing better Review of Systems Review of Systems: All systems reviewed & are unremarkable except as noted in Subjective Physical Exam Physical Exam: General: Awake, conversant Heart: S1, S2/regular rate and rhythm, no murmur rubs or gallops Lungs: Diminished breath sounds at the bases bilaterally. Normal effort Abdomen: Soft/nontender/nondistended. No hepatosplenomegaly Extremities: No clubbing/cyanosis. No edema Behavior: Appropriate, cooperative Results & Data Results & Data Vital Signs (Past 12 Hours) Vital Signs Temp Pulse Pulse Resp BP Pulse Ox O2 Del Method 01/17/24 12:00 36.7 C 71 16 154/80 H 90 Room Air 01/17/24 08:00 Room Air 01/17/24 07:56 36.7 C 73 16 165/79 H 91 Room Air 01/17/24 07:50 72 01/17/24 03:05 36.5 C 73 18 167/87 H 95 Room Air Laboratory Results Abnormal lab results 01/16/24 01/16/24 01/16/24 Range/Units 14:19 16:09 17:27 RBC 3.58 L (4.20-5.40) M/uL Hgb 10.2 L (12.0-16.0) g/dl Hct 33.0 L (37.0-47.0) % MCHC 30.9 L (32.0-36.0) g/dL RDW Std Deviation 50.1 H (36.4-46.3) fL RDW Coeff of Manuela 14.6 H (11.5-14.5) % Neut # (Auto) 7.25 H (1.40-6.50) K/uL [place] # (Auto) 1.08 H (0.11-0.59) K/uL PT 12.2 H (9.0-12.0) Seconds INR (0.9-1.1) Sodium 135 L (136-145) mmol/L Chloride 97 L (98-107) mmol/L BUN 49 H (6-23) mg/dl Creatinine 2.26 H (0.6-1.2) mg/dl BUN/Creatinine Ratio 21.7 H (10-20) Glucose 201 H (70-99(Fasting)) mg/dl POC Glucose 143 H (70-99) mg/dl Alkaline Phosphatase 169 H (34-104) U/L Troponin I High Sens 33.4 H 50.2 H* D (0-14) pg/ml B-Natriuretic Peptide 580 H (0-100) pg/ml 01/16/24 01/16/24 01/17/24 Range/Units 21:24 22:35 05:41 RBC 3.63 L (4.20-5.40) M/uL Hgb 10.3 L (12.0-16.0) g/dl Hct 33.5 L (37.0-47.0) % MCHC 30.7 L (32.0-36.0) g/dL RDW Std Deviation 49.2 H (36.4-46.3) fL RDW Coeff of Manuela 14.6 H (11.5-14.5) % Neut # (Auto) 7.37 H (1.40-6.50) K/uL [place] # (Auto) 1.10 H (0.11-0.59) K/uL PT 12.6 H (9.0-12.0) Seconds INR 1.2 H (0.9-1.1) Sodium (136-145) mmol/L Chloride (98-107) mmol/L BUN 45 H (6-23) mg/dl Creatinine 2.03 H (0.6-1.2) mg/dl BUN/Creatinine Ratio 22.2 H (10-20) Glucose 123 H (70-99(Fasting)) mg/dl POC Glucose 149 H (70-99) mg/dl Alkaline Phosphatase (34-104) U/L Troponin I High Sens 83.9 H* D 67.1 H* D (0-14) pg/ml B-Natriuretic Peptide (0-100) pg/ml 01/17/24 01/17/24 01/17/24 Range/Units 08:19 09:57 12:19 RBC (4.20-5.40) M/uL Hgb (12.0-16.0) g/dl Hct (37.0-47.0) % MCHC (32.0-36.0) g/dL RDW Std Deviation (36.4-46.3) fL RDW Coeff of Manuela (11.5-14.5) % Neut # (Auto) (1.40-6.50) K/uL [place] # (Auto) (0.11-0.59) K/uL PT (9.0-12.0) Seconds INR (0.9-1.1) Sodium (136-145) mmol/L Chloride (98-107) mmol/L BUN (6-23) mg/dl Creatinine (0.6-1.2) mg/dl BUN/Creatinine Ratio (10-20) Glucose (70-99(Fasting)) mg/dl POC Glucose 136 H 148 H (70-99) mg/dl Alkaline Phosphatase (34-104) U/L Troponin I High Sens 56.5 H* D (0-14) pg/ml B-Natriuretic Peptide (0-100) pg/ml Diagnostic Findings Chest X-Ray 01/16/24 14:01 XR chest 1V not portable CLINICAL HISTORY: Chest pain, nonspecific COMPARISON STUDY: Chest radiograph December 18, 2023. FINDINGS: Left subclavian pacer/AICD remains in place. There is a prosthetic aortic valve. Cardiomegaly is unchanged. Widening the right paratracheal stripe is unchanged. There is no pneumothorax. Small to moderate right and small left pleural effusions are similar to prior exam. There are associated bibasilar opacities, greater on the right. Pulmonary edema has slightly improved. IMPRESSION: 1. Persistent pulmonary edema, slightly improved since prior exam. 2. Small to moderate right and small left pleural effusions. Right basilar opacity could reflect pneumonia or atelectasis. Radiographic follow-up to ensure resolution is recommended. ACT 112: Negative or not required by law. Electronically signed by: Cali Jacobo M.D. 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 Diabetes mellitus complication status: with kidney complications Diabetes mellitus complication detail: with nephropathy PAF (paroxysmal atrial fibrillation) I48.0 S/P coronary artery stent placement Z95.5 Bilateral carotid artery stenosis I65.23 Acquired hypothyroidism E03.9 Hypothyroidism type: acquired (5) DM II (diabetes mellitus, type II), controlled Diabetes mellitus longterm insulin use: with longterm use Diabetes mellitus complication status: with kidney complications Diabetes mellitus complication detail: with nephropathy Qualified Code(s): E11.21 - Type 2 diabetes mellitus with diabetic nephropathy; 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
[2024-01-18] MEDS: POLYETHYLENE (MIRALAX) 17 GM PACK PO PRN (05:40)
[2024-01-18 06:49] LABS: Basophils # (auto) 0.06 K/uL (0.00-0.20); Basophils % (auto) 0.7 %; Eosinophils # (auto) 0.24 K/uL (0.00-0.50); Eosinophils % (auto) 2.7 %; Hematocrit (blood only) 33.8 % (37.0-47.0); Hemoglobin 10.2 g/dl (12.0-16.0); Immature Granulocytes # (auto) 0.03 K/uL (0.01-0.20); Immature Granulocytes % (auto) 0.3 %; Lymphocytes % (auto) 23.4 %; Mean Corpuscular Hgb Conc 30.2 g/dL (32.0-36.0); Mean Corpuscular Volume 92.9 fL (80.0-100.0); Mean Platelet Volume 10.9 fL (9.4-12.4); Monocytes # (auto) 1.18 K/uL (0.11-0.59); Monocytes % (auto) 13.1 %; Neutrophils # (auto) 5.38 K/uL (1.40-6.50); Neutrophils % (auto) 59.8 %; Platelet Count 269 K/uL (130-400); RDW Coefficient of Variation 14.6 % (11.5-14.5); RDW Standard Deviation 49.7 fL (36.4-46.3); Red Blood Count 3.64 M/uL (4.20-5.40); White Blood Count 8.99 K/ul (4.8-10.8)
[2024-01-18 07:07] LABS: BUN Creatinine Ratio 21.6 (10-20); Creatinine Clr Calc Pharmacy 21.9 ml/min; Est GFR (African American) 24.7 ml/min; Est GFR (Non-African American) 21.3 ml/min; Magnesium 2.2 mg/dl (1.7-2.4); Potassium 3.8 mmol/L (3.5-5.1)
[2024-01-18 07:17] LABS: INR 1.1 (0.9-1.1); Prothrombin Time 12.2 Seconds (9.0-12.0)
--- NOTE | 2024-01-18 12:28 | Cardiology Consultation ---
Date of Consultation January 18, 2024 Assessment & Plan (1) Heart failure with mildly reduced ejection fraction (HFmrEF): (2) Mitral regurgitation: (3) Pulmonary hypertension: (4) Ischemic cardiomyopathy: (5) Biventricular ICD (implantable cardioverter-defibrillator) in place: (6) S/P TAVR (transcatheter aortic valve replacement): (7) CAD (coronary artery disease): Plan 1. Acute on chronic HFmrEF: She appears mildly hypervolemic on exam today but significantly improved from admission. Clinically have intermittent dyspnea on exertion. Her shortness of breath at rest has improved. Her baseline weight has been fluctuating a few pounds but in small increments. She is up 20 lb from her previous baseline today (9lb from 2 weeks ago). Standing weight 198 lb today. Previous dry weight was 184 lb. Renal function remains stable. Would continue Bumex 2 mg IV BID until she is fully optimized. She can likely go home on her previous home dose of 1 mg BID, increase to 2 mg BID PRN. Strict I&Os. Daily STANDING weights. Low sodium diet. 2. Ischemic Cardiomyopathy: LV ejection fraction 40-45%. She has documented intolerance to HERMELINDO/ARBs due to chronic kidney disease. Entresto discontinued due to orthostatic hypotension. Continue Carvedilol. This was increased during her last hospital stay but she has continued her previous dose of 3.125 mg BID upon return home. She had symptomatic hypotension with higher doses in the past and she had some vertigo during her last admission therefore she was hesitant. Discussed her hypertension and how it may benefit her at this time. Would continue discussions with her to further titrate. Losartan has been discontinued due to orthostatic symptoms. GFR borderline so will avoid SGLT2i. Monitor labs. Continue medical therapy. She has a biventricular device. 3. Mitral regurgitation: Severe on recent echocardiogram. Unlikely surgical candidate per Dr. Cueva. Could be contributing to her worsening symptoms. 4. Paroxysmal Atrial fibrillation/flutter: s/p AV ablation. Continue rate control with Carvedilol. Continue Eliquis for stroke risk reduction. May help with her symptoms. Digoxin discontinued during last hospital stay. 5. Hypertension: Slightly elevated. Continue current regimen. Recommend continued monitoring given her previous issues with orthostatic hypotension. Consider increasing beta venice to also further optimize her HF regimen. 7. Aortic stenosis- s/p TAVR 8. CAD: No current anginal symptoms. Continue Brilinta, beta venice, and Eliquis per Dr. Bateman. Continue Ranexa. 9. Goals of care: She does have a living will and the details have been communicated this with her family. Her children are her POAs. She wants to be able to complete her ADLs and run errands. Does not want dialysis. With frequent hospitalizations, diuretic resistance, and de-escalation of therapies- may need to consider palliative eval for goals of care discussion in the near future. Disposition: Continue to follow during hospitalization. Will require close outpatient follow up with the heart failure program. History of Present Illness Attending Physician: Elizabeth Sy MD History of Present Illness Ms. Barry is a 83-year-old female with a past medical history significant for coronary artery disease (s/p NATY to mid LAD 10/2017 and NATY prox to mid LAD 10/17/2018 circumflex PCI 09/2019, mid circumflex 05/2019, ostial circumflex 12/2019), ischemic cardiomyopathy (EF 25-30%), chronic combined CHF, paroxysmal atrial flutter, aortic stenosis now sp TAVR 10/2019, mild to moderate mitral regurgitation, diabetes mellitus, CKD, hypothyroidism, carotid artery stenosis s/p bilateral carotid endarterectomies, peripheral arterial disease (mild- moderate disease in right SFA and 100% right anterior tibial stenosis in 05/2017), and symptomatic sinus bradycardia s/p dual-chamber pacemaker implantation 05/14/2018. Dr. Cueva is her primary oracle database analyst. She had the following studies: 1. 11/14/18 Echo- Left atrium is mildly dilated. Mild . Severe MR. RVSP is >60mmHg. Mild concentric LVH. LV systolic function is moderately to severely reduced, EF 25-30%. 2. 11/20/18 Echo- Limited views. LV systolic function midly reduced. EF 40-45%. 3. 03/19/19 Echo- borderline LV dilation. Moderate LV systolic dysfunction with EF 40-45%. Type 1 left ventricular diastolic dysfunction. Mild left atrial dilation. Moderate calcific aortic stenosis. Mild mitral regurgitation. Mild tricuspid regurgitation. Mildly elevated RVSP. Compared to 2017, aortic stenosis has worsened. 4. 09/04/19 Echo- Moderate to severe left ventricular systolic dysfunction, EF 30-35%. Moderate-severe aortic stenosis. Trace AR, Moderate MR, Moderate TR, Moderately elevated RVSP. 05/2019 Cath- New severe mid circumflex 80% stenosis. Moderate multivessel non-obstructive CAD-30% ostial LM- 50% ostial circumflex- 50% ostial RCA- Widely patent LAD stents. Elevated LVEDP - 29. Successful PCI of mid circumflex with single NATY (2.75 x 18 [place]). . 12/11/19 Echo: Mildly dilated LV with normal thickness. LVEF 25-30% with wall motion abnormalities. s/p TAVR with expected gradients. Moderate MR. Grade II d iastolic dysfunction. Moderate pulm HTN, PASP 55-60 mmHg. Trace pericardial effusion. 6. 01/10/20 Cath- Severe left ostial main stenosis, moderate ostial circumflex, OM1 disease. Widely patent ostial RCA, LAD, and mid circumflex stents. 7. 03/30/20 Echo: LV normal size. EF 20-25%. Mild concentric LVH. Grade III diastolic dysfunction. Moderate MR. Large left pleural effusion. Well seated aortic valve. 8. 10/24/20 Echo: Mild dilation of LV and systolic dysfunction. EF 40-45%. TAVR. Moderate TR/MR. Mildly elevated RVSP. . 10/16/21 Echo: LV systolic function mildly reduced. Global hypokinesis of the LV. EF 40%. Prosthetic aortic valve is well-seated with normal gradient. Moderate MR/TR. . 11/26/21 Cardioversion 11. 12/22/22 Echo: Lv systolic function is mildly reduced. EF 40-45%. Mild global hypokinesis. Bioprosthetic aortic valve with mild stenosis. Moderate MR. Left atrium moderately dilated. RVSP elevated 30-40 mmHg. Ivc mildly dilated. 12. 12/18/23 Echo: LV borderline dilated. LV function mild to moderately reduced. EF 40-45%. RV normal size/function. Moderate to severe MR. RVSP elevated 50-60 mmHg. IVC moderately dilated. Patient presented to the cardiology office on 01/16/24 with worsening dyspnea. She was symptomatic at rest and with conversation. Her weight has been going up despite escalation of her outpatient diuretic regimen. She was referred to the ED for further evaluation and more aggressive diuresis. On arrival to the ED she was noted to be hypertensive at 178/104 but was otherwise stable. Labs were significant for an initial high sen trop of 33 -->50 on 2 hour repeat, BNP of 580 (up from 553). CXR with persistent pulmonary edema, slightly improved since prior exam, small to moderate right and small left pleural effusions. right basilar opacity could reflect pneumonia or atelectasis. Prior to admission the patient was given 40 mg IV lasix. Patient has had a good response to Lasix. She reports feeling improved this morning. She is on room air and is much more comfortable at rest. She still notes significant GOMEZ with any ambulation. She has no lower extremity edema. She notes a productive cough in the am which is consistent with her baseline. Her appetite has improved and she enjoyed her breakfast this morning. She denies orthopnea or PND. She denies chest pain or palpitations. Allergies Allergy/AdvReac Type Severity Reaction Status Date / Time adhesive Allergy Intermediate REDNESS Verified 01/16/24 16:48 AND IRRITATION FROM PAIN PATCH, TAPE latex Allergy Intermediate ALLERGIC Verified 01/16/24 16:48 TO LATEX TAPE/RASH/ITCHING morphine Allergy Intermediate swelling Verified 01/16/24 16:48 nausea vomiting olmesartan Allergy Unknown UNKNOWN Verified 01/16/24 16:48 benzonatate AdvReac Intermediate confusion Verified 01/16/24 16:48 [From Tesmin Brennan] dulaglutide [From Trulicity] AdvReac Intermediate AFFECTS Verified 01/16/24 16:48 MUSCLES exenatide [From Byetta] AdvReac Intermediate Diarrhea Verified 01/16/24 16:48 ezetimibe AdvReac Intermediate MUSCLE Verified 01/16/24 16:48 ACHES glipizide AdvReac Intermediate Diarrhea Verified 01/16/24 16:48 glyburide AdvReac Intermediate Diarrhea Verified 01/16/24 16:48 lisinopril AdvReac Intermediate LIGHTHEADED Verified 01/16/24 16:48 AND DIZZY losartan AdvReac Intermediate dizziness Verified 01/16/24 16:48 metformin AdvReac Intermediate Diarrhea Verified 01/16/24 16:48 pioglitazone AdvReac Intermediate DIARRHEA Verified 01/16/24 16:48 NAUSEA sitagliptin [From Januvia] AdvReac Intermediate Diarrhea Verified 01/16/24 16:48 Qhtingl-ZNQ-OmU Reductase AdvReac Intermediate myalgias Verified 01/16/24 16:48 Inhibitor and [Bctwsua-Pxv-Ubd Reductase weakness Inhibitor] aspirin AdvReac Mild GI SYMPTOMS Verified 01/16/24 16:48 Home Medications Medication Instructions Recorded Confirmed Type magnesium oxide 400 mg PO QPM #90 caps 04/01/19 01/16/24 Rx vitamin E 268 mg (400 unit) capsule 400 unit PO QAM 03/29/20 01/16/24 History cholecalciferol (vitamin D3) 25 1,000 unit PO QAM 05/17/21 01/16/24 History mcg (1,000 unit) capsule trazodone 50 mg tablet 50 mg PO HS PRN insomnia #90 tabs 06/23/22 01/16/24 Rx insulin aspar prt-insulin aspart 15 - 30 unit (0.15 - 0.3 mL) 11/28/22 01/16/24 Rx 100 unit/mL (70-30) subcutaneous subcut AMPM #30 mL soln (Novolog Mix 70-30 U-100 Insuln) polyethylene glycol 3350 17 17 g PO TID #119 grams 12/23/22 01/16/24 Rx gram/dose oral powder (Miralax) sennosides 8.6 mg capsule (senna) 8.6 mg PO DAILY PRN constipation 12/23/22 01/16/24 Rx #10 caps garlic 1,000 mg capsule 1,000 mg PO DAILY 05/29/23 01/16/24 History flash glucose scanning reader #6 ea 07/24/23 01/01/24 Rx (FreeStyle [place] 14 Day Ririe) ticagrelor 90 mg tablet (Brilinta) 90 mg PO BID #180 tabs 07/24/23 01/16/24 Rx potassium gluconate 595 mg (99 mg) 595 mg PO DAILY PRN With Bumex 08/25/23 01/16/24 History tablet fluticasone propionate 50 2 spray intranasal DAILY #16 grams 09/06/23 01/16/24 Rx mcg/actuation nasal spray,suspension (Flonase Allergy Relief) mirabegron 25 mg tablet,extended 25 mg PO DAILY #30 tabs 09/18/23 01/16/24 Rx release 24 hr gabapentin 100 mg capsule 300 mg (3 x 100 mg) PO HS #90 caps 10/23/23 01/16/24 Rx levothyroxine 75 mcg tablet 75 mcg PO QAM #90 tabs 10/27/23 01/16/24 Rx apixaban 2.5 mg tablet (Eliquis) 2.5 mg PO BID #180 tabs 10/30/23 01/16/24 Rx calcitriol 0.25 mcg capsule 0.25 mcg PO 3XWK #12 caps 10/30/23 01/16/24 Rx (Rocaltrol) insulin syringe-needle U-100 0.3 #100 ea 10/30/23 01/01/24 Rx mL 31 gauge x 5/16" acetaminophen 500 mg tablet 1,000 mg (2 x 500 mg) PO Q8H PRN 11/02/23 01/16/24 Rx (Tylenol Extra Strength) pain #30 tabs ranolazine 500 mg tablet,extended 500 mg PO BID #180 tabs 11/14/23 01/16/24 Rx release,12 hr flash glucose sensor (FreeStyle #1 ea 11/24/23 01/01/24 Rx Rossy 14 Day Sensor kit) bumetanide 1 mg tablet 1 mg PO BID Shortness of 12/28/23 01/16/24 Rx breath/weight gain #180 tabs carvedilol 3.125 mg tablet 3.125 mg PO BID #180 tabs 12/28/23 01/16/24 Rx esomeprazole magnesium 40 mg 40 mg PO BID #60 caps 01/01/24 01/16/24 Rx capsule,delayed release (Nexium) ondansetron HCl 8 mg tablet 8 mg PO Q8H PRN nausea and 01/01/24 01/16/24 Rx vomiting #30 tabs sertraline 50 mg tablet 75 mg (1.5 x 50 mg) PO DAILY #135 01/01/24 01/16/24 Rx tabs Patient History Medical History (Updated 01/18/24 @ 00:09 by Background Leonie) Osteoarthritis Orthostasis Hyperlipidemia Acute kidney injury superimposed on chronic kidney disease Non-ST elevation ME (NSTEMI) Depression Nausea and vomiting after administration of anesthetic agent severe PONV s/p Left carotid surgery 09/27/21 at [facility] PAF (paroxysmal atrial fibrillation) History of CVA (cerebrovascular accident) Had RUE weakness and numbness after 09/17/21 breast surgery- CT scan of head negative; unable to do MRI due to ICD Per PCP records 10/22/21= "[place] her post op RUE sx related to possible small stroke/TIA" Breast cancer, right Right breast mastectomy 09/17/21 at [facility] Subclavian artery stenosis Rheumatoid arthritis No medications Followed with rheum in the past- no recent issues Chronic kidney disease STAGE IV-F/U DR SALINAS Diabetes mellitus, type 2 Glucose fluctuates SOB (shortness of breath) on exertion DVT (deep venous thrombosis) LOWER LEG 2019 Ischemic cardiomyopathy Insomnia Biventricular ICD (implantable cardioverter-defibrillator) in place (04/30/20) Medtronic implanted 04/30/2020. Capped right ventricular pacing lead Last check 09/2021 Antiplatelet or antithrombotic long-term use Secondary hyperparathyroidism of renal origin Anemia due to chronic kidney disease Chronic obstructive pulmonary disease, unspecified Breathing stable CAD (coronary artery disease) F/U DR CUEVA S/p NATY x 1 to Cx in 2018; NATY to ostial LM 01/10/20 Aortic stenosis, severe S/p TAVR 10/2019 PAD (peripheral artery disease) S/p [employer] and stenting of right SFA, and [employer] of left SFA and common femoral artery Spondylosis Pulmonary hypertension RVSP 50-60mmHg on 12/2023 ECHO NSTEMI (non-ST elevated myocardial infarction) Most recent 12/2019 (mild per patient) Chronic combined systolic and diastolic CHF (congestive heart failure) EF 40% per 10/16/21 ECHO GERD (gastroesophageal reflux disease) Hypothyroidism Left bundle branch block Bilateral carotid artery stenosis H/o bilateral CEAs in 2016 Per 07/2021 vascular note- carotid ultrasound from office visit showed patent right CEA with velocities suggesting 50-59% stenosis restenosis Patent left CEA with velocities suggesting 99% restenosis - had re-do of left CEA 09/27/21 Surgical History (Updated 01/18/24 @ 00:09 by Background Leonie) S/P AV hiren ablation (06/30/22) H/O heart artery stent H/O colonoscopy History of left-sided carotid endarterectomy (09/27/21) redo L CEA, Dr Bateman Status post partial mastectomy of right breast (09/17/21) 09/17/21 - Done under [place] with LMA #4. Atraumatic LMA insertion. Magnet placed secondary to pacemaker. Right Breast Partial Mastectomy with [place] [employer] Localization, Right Axillary [place] Lymph Node Biopsy(Right) - Hua A. Dave, DO History of cardiac cath TOTAL 6? STENTS- 2018 and 2019 S/P coronary artery stent placement (10/2018) NATY prox mid LAD S/P coronary artery stent placement (10/2017) NATY to mid LAD S/P carotid endarterectomy B/l 2016 S/P thoracentesis (03/2020) b/l d/t CHF S/P angioplasty (02/03/21) [employer] L SFA 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) History of oophorectomy History of hysterectomy History of cholecystectomy H/O: section History of cataract surgery right and left History of appendectomy Family History Daughter Coronary heart disease Diabetes Mother Diabetes Family history of hypercholesterolemia Myocardial infarction Hypertension Stroke Brother Colorectal cancer Father Accident Brother Diabetes Family/Other Myocardial infarction Son Coronary heart disease Hypertension Other Pacemaker Denies family history of Ovarian cancer Prostate cancer Breast cancer Social History Smoking Status: Never smoker Second Hand Exposure: No; Do You Dip or Chew Tobacco: No; Hx Alcohol Use: No Hx Substance Use: No Preferred Language: Persian Communication Ability: Effective Visual Impairment: No Limitations Hearing Ability: Hard of Hearing Puller Machine Required: No Beliefs That Will Affect Care: None marital status: / marital status details: passed 2000 Current Living Situation: Alone current occupational status: retired 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 EOMs intact. Sclera anicteric. Face is symmetric. No perioral cyanosis. Mucous membranes moist. Neck: Supple, + JVD. + HJR Pulmonary: Normal respiratory effort. No wheezes, rales, crackles. Decreased breath sounds at the bases. Cardiac: Regular rate and rhythm. S1-S2 normal. Grade 3/6 systolic murmur Extremities: Trace pretibial edema bilaterally L>R. No clubbing or cyanosis. Pulses 1+ and symmetric. Abdomen: Normal bowel sounds, soft, RUQ tender, no abdominal mass palpated Skin: Normal skin color, turgor, and pigmentation, no rash, no skin lesions Neurological: Oriented to person, place, and time Results & Data Vital Signs (Past 12 Hours) Vital Signs Temp Pulse Pulse Resp BP BP Pulse Ox 01/18/24 11:32 97.7 F 74 14 149/88 H 95 01/18/24 08:43 97.9 F 71 16 162/79 H 93 01/18/24 08:00 72 01/18/24 03:32 98.1 F 71 18 142/83 H 91 O2 Del Method 01/18/24 11:32 Room Air 01/18/24 08:43 Room Air 01/18/24 08:00 01/18/24 03:32 Room Air PG Care Time/CCT Total # of Minutes Spent Total Time Spent with Patient: Total time spent is greater than 50% in coordination of care (as documented) at patient's floor/unit and/or counseling patient: Coding Level of Care Code 34989 INT INP/OBS CARE 3/75MIN Diagnoses Heart failure with mildly reduced ejection fraction (HFmrEF) I50.22 Mitral regurgitation I34.0 Pulmonary hypertension I27.20 Ischemic cardiomyopathy I25.5 Biventricular ICD (implantable cardioverter-defibrillator) in place Z95.810 S/P TAVR (transcatheter aortic valve replacement) Z95.2 CAD (coronary artery disease) I25.10 Heart Failure Data/Metrics Heart Failure Type: HFmrEF (Midly Reduced/Mid-Range, EF 41-49%) Ejection Fraction: 40-45% Bi-V Defibrillator: Yes Evidenced Based Beta [place] Therapy Beta Venice Therapy: Yes Beta [place] Name: Carvedilol HERMELINDO/ARB/ARNI Therapy HERMELINDO/ARB/ARNI Therapy: Contraindicated HERMELINDO/ARB/ANI Contraindications: TRACY/AKD and Hypotension Aldosterone Antagonist Therapy Aldosterone Antagonist Therapy: Contraindicated Aldosterone Antagonist Contraindications: TRACY/AKD SGLT-2 Inhibitor Therapy SGLT-2 Inhibitor Therapy: Contraindicated (GFR 21)
--- NOTE | 2024-01-18 15:47 | Hospitalist Progress Note ---
Date of Service January 18, 2024 Assessment & Plan (1) CHF exacerbation: Plan: -Admit to med/tele with pulse oximetry -Currently hemodynamically stable and stable on RA -Presented to the ED for ongoing weight gain and SOB with poor response to PO bumex outpatient -Noted to be up approximately 9 lbs from her last admission at the beginning of December -Has known HFrEF with new severe mitral regurgitation as of echo from 12/18/23 -Noted to have ongoing pulmonary edema and BL pleural effusions -S/P 40 mg IV lasix in the ED -Currently on 2 mg IV twice daily Bumex Renal function stable -Cardiology on board Continue current dose of Bumex to diurese further -Monitor intake/output q-shift and daily weights -Home Eliquis for DVT PPX Patient has ischemic cardiomyopathy EF 40 to 45% Continue carvedilol Status post biventricular defibrillator Has not tolerated losartan in the past (2) Elevated troponin: Plan: -Initial high sen trop elevated -No acute ST segment or T-wave changes on ECG today -Patient denies chest pain -Likely due to demand as this is how she typically presents on previous admissions for CHF exacerbations -Continue to monitor on tele -Cardiology on board (3) SOB (shortness of breath): Plan: -Most likely due to her CHF exacerbation -Has also noted increased orthopnea -CXR mentioned Right basilar opacity which represent atelectasis Pro-Jose level negative -Incentive spirometry, flutter therapy -PRN O2 to keep SpO2 at or above 94% (4) GERD (gastroesophageal reflux disease): Plan: -Reflux symptoms have been uncontrolled on Esomeprazole -Will try pantoprazole and famotidine while admitted -Monitor for improvement (5) DM II (diabetes mellitus, type II), controlled: Plan: -Monitor BSG ACHS, goal is 110-160 -Start 5 units lantus BID as she has been eating less recently with her reflux symptoms -Start CF of 50 and CR of 15 for now -Adjust regimen as needed (6) PAF (paroxysmal atrial fibrillation): Plan: -Currently in a paced rhythm -Continue eliquis and carvedilol (7) S/P coronary artery stent placement: Plan: -Continue Brilinta (8) Bilateral carotid artery stenosis: Plan: -Continue Brilinta (9) Hypothyroidism: Plan: -Continue levothyroxine Admission and Anticipated Discharge Date Admission Date: January 16, 2024 Subjective Patient is feeling better and better every day. 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 She continues to diurese. Breathing better but still gets winded on minimal exertion. Review of Systems Review of Systems: All systems reviewed & are unremarkable except as noted in Subjective Physical Exam Physical Exam: General: Awake, conversant Heart: S1, S2/regular rate and rhythm, no murmur rubs or gallops Lungs: Diminished breath sounds at the bases bilaterally. Normal effort Abdomen: Soft/nontender/nondistended. No hepatosplenomegaly Extremities: No clubbing/cyanosis. No edema Behavior: Appropriate, cooperative Results & Data Results & Data Vital Signs (Past 12 Hours) Vital Signs Temp Pulse Pulse Resp BP BP Pulse Ox 01/18/24 15:18 73 01/18/24 11:32 36.5 C 74 14 149/88 H 95 01/18/24 08:43 36.6 C 71 16 162/79 H 93 01/18/24 08:00 72 O2 Del Method 01/18/24 15:18 01/18/24 11:32 Room Air 01/18/24 08:43 Room Air 01/18/24 08:00 Laboratory Results Abnormal lab results 01/17/24 01/17/24 01/18/24 Range/Units 17:09 20:30 05:53 RBC 3.64 L (4.20-5.40) M/uL Hgb 10.2 L (12.0-16.0) g/dl Hct 33.8 L (37.0-47.0) % MCHC 30.2 L (32.0-36.0) g/dL RDW Std Deviation 49.7 H (36.4-46.3) fL RDW Coeff of Manuela 14.6 H (11.5-14.5) % [place] # (Auto) 1.18 H (0.11-0.59) K/uL PT 12.2 H (9.0-12.0) Seconds BUN 45 H (6-23) mg/dl Creatinine 2.08 H (0.6-1.2) mg/dl BUN/Creatinine Ratio 21.6 H (10-20) Glucose 122 H (70-99(Fasting)) mg/dl POC Glucose 120 H 186 H (70-99) mg/dl 01/18/24 01/18/24 Range/Units 08:33 11:58 RBC (4.20-5.40) M/uL Hgb (12.0-16.0) g/dl Hct (37.0-47.0) % MCHC (32.0-36.0) g/dL RDW Std Deviation (36.4-46.3) fL RDW Coeff of Manuela (11.5-14.5) % [place] # (Auto) (0.11-0.59) K/uL PT (9.0-12.0) Seconds BUN (6-23) mg/dl Creatinine (0.6-1.2) mg/dl BUN/Creatinine Ratio (10-20) Glucose (70-99(Fasting)) mg/dl POC Glucose 129 H 166 H (70-99) mg/dl PG Care Time/CCT Total # of Minutes Spent Total Time Spent with Patient: Total time spent is greater than 50% in coordination of care (as documented) at patient's floor/unit and/or counseling patient: Coding Level of Care Code 14963 SUB INP/OBS CARE 2/35MIN Diagnoses CHF exacerbation I50.9 Elevated troponin R77.8 SOB (shortness of breath) R06.02 GERD (gastroesophageal reflux disease) K21.9 Controlled type 2 diabetes mellitus with diabetic nephropathy, with long-term current use of insulin E11.21; Z79.4 Diabetes mellitus tank terminal gauger insulin use: with long-term use Diabetes mellitus complication status: with kidney complications Diabetes mellitus complication detail: with nephropathy PAF (paroxysmal atrial fibrillation) I48.0 S/P coronary artery stent placement Z95.5 Bilateral carotid artery stenosis I65.23 Acquired hypothyroidism E03.9 Hypothyroidism type: acquired (5) DM II (diabetes mellitus, type II), controlled Diabetes mellitus long-term insulin use: with long-term use Diabetes mellitus complication status: with kidney complications Diabetes mellitus complication detail: with nephropathy Qualified Code(s): E11.21 - Type 2 diabetes mellitus with diabetic nephropathy; Z79.4 - group home (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 (9) Hypothyroidism Hypothyroidism type: acquired Qualified Code(s): E03.9 - Hypothyroidism, unspecified
[2024-01-18] MEDS: POLYETHYLENE (MIRALAX) 17 GM PACK PO SCH (20:57)
[2024-01-19 06:38] LABS: Basophils # (auto) 0.06 K/uL (0.00-0.20); Basophils % (auto) 0.6 %; Eosinophils # (auto) 0.24 K/uL (0.00-0.50); Eosinophils % (auto) 2.4 %; Hematocrit (blood only) 34.8 % (37.0-47.0); Hemoglobin 10.3 g/dl (12.0-16.0); Immature Granulocytes # (auto) 0.04 K/uL (0.01-0.20); Immature Granulocytes % (auto) 0.4 %; Lymphocytes # (auto) 2.53 K/uL (1.20-3.40); Mean Corpuscular Hemoglobin 27.8 pg (25.0-34.0); Mean Corpuscular Hgb Conc 29.6 g/dL (32.0-36.0); Mean Corpuscular Volume 94.1 fL (80.0-100.0); Mean Platelet Volume 10.9 fL (9.4-12.4); Monocytes # (auto) 1.48 K/uL (0.11-0.59); Monocytes % (auto) 14.6 %; Neutrophils # (auto) 5.77 K/uL (1.40-6.50); Platelet Count 261 K/uL (130-400); RDW Coefficient of Variation 14.6 % (11.5-14.5); White Blood Count 10.12 K/ul (4.8-10.8)
[2024-01-19 06:41] LABS: INR 1.1 (0.9-1.1)
[2024-01-19 07:00] LABS: BUN Creatinine Ratio 19.8 (10-20); Calcium 9.1 mg/dl (8.6-10.3); Creatinine Clr Calc Pharmacy 20.1 ml/min; Est GFR (African American) 22.2 ml/min; Est GFR (Non-African American) 19.2 ml/min; Magnesium 2.3 mg/dl (1.7-2.4); Potassium 4.7 mmol/L (3.5-5.1)
--- NOTE | 2024-01-19 12:32 | Cardiology Progress Note ---
Date of Service January 19, 2024 Assessment & Plan (1) Heart failure with mildly reduced ejection fraction (HFmrEF): (2) Mitral regurgitation: (3) Pulmonary hypertension: (4) Ischemic cardiomyopathy: (5) Biventricular ICD (implantable cardioverter-defibrillator) in place: (6) S/P TAVR (transcatheter aortic valve replacement): (7) CAD (coronary artery disease): Plan 1. Acute on chronic HFmrEF: She appears near euvolemic on exam today. Continues to have dyspnea on exertion with any activity. She is having more GI complaints today. CT abdomen is pending. Her shortness of breath at rest has improved. Standing weight 198 lb today. Previous dry weight was 184 lb. Renal function remains consistent with her baseline. Bumex held this morning. Would continue to maintain negative fluid balance. Recommend Bumex 2 mg IV today. Continue to closely monitor renal function with poor PO intake. If renal function continues to decline would consider alternate etiologies for her GOMEZ. She can likely go home on her previous home dose of 1 mg BID, increase to 2 mg BID PRN. Strict I&Os. Daily STANDING weights. Low sodium diet. 2. Ischemic Cardiomyopathy: LV ejection fraction 40-45%. She has documented intolerance to HERMELINDO/ARBs due to chronic kidney disease. Entresto discontinued due to orthostatic hypotension. Continue Carvedilol. This was increased during her last hospital stay but she has continued her previous dose of 3.125 mg BID upon return home. She had symptomatic hypotension with higher doses in the past and she had some vertigo during her last admission therefore she was hesitant. Discussed her hypertension and how it may benefit her at this time. Would co ntinue discussions with her to further titrate. Losartan has been discontinued due to orthostatic symptoms. GFR borderline so will avoid SGLT2i. Monitor labs. Continue medical therapy. She has a biventricular device. 3. Mitral regurgitation: Severe on recent echocardiogram. Unlikely surgical candidate per Dr. Irizarry. Could be contributing to her worsening symptoms. 4. Paroxysmal Atrial fibrillation/flutter: s/p AV ablation. Continue rate control with Carvedilol. Continue Eliquis for stroke risk reduction. May help with her symptoms. Digoxin discontinued during last hospital stay. 5. Hypertension: Slightly elevated. Continue current regimen. Recommend continued monitoring given her previous issues with orthostatic hypotension. Consider increasing beta estephania to also further optimize her HF regimen. 7. Aortic stenosis- s/p TAVR 8. CAD: No current anginal symptoms. Continue Brilinta, beta estephania, and Eliquis per Dr. Bateman. Continue Ranexa. 9. Goals of care: She does have a living will and the details have been communicated this with her family. Her children are her POAs. She wants to be able to complete her ADLs and run errands. Does not want dialysis. With frequent hospitalizations, diuretic resistance, and de-escalation of therapies- may need to consider palliative eval for goals of care discussion in the near future. Disposition: Continue to follow during hospitalization. Dr. Deleon will be covering this weekend. Will require close outpatient follow up with the heart failure program. Admission and Anticipated Discharge Date Admission Date: January 16, 2024 Subjective Patient reports feeling slightly worse today. Her complaints seem to be more GI related. She is having abdominal discomfort and poor appetite. She had an episode of vomiting last night. Did not eat her breakfast this am. She continues to note dyspnea on exertion with any activity. She is able to recover much quicker than earlier in the week. She denies chest pain, palpitations, orthopnea, or PND. She's net negative 1.7 L and her weight is 198 lb today per standing scale. Physical Exam Physical Exam: Constitutional: Alert, oriented, in no acute distress. Room air. HEENT: Head is atraumatic and normocephalic. EOMs intact. Sclera anicteric. Face is symmetric. No perioral cyanosis. Mucous membranes moist. Neck: Supple, - JVD. - HJR Pulmonary: Normal respiratory effort. No wheezes, rales, crackles. Decreased breath sounds at the bases. Cardiac: Regular rate and rhythm. S1-S2 normal. Grade 3/6 systolic murmur Extremities: Trace pretibial edema bilaterally L>R. No clubbing or cyanosis. Pulses 1+ and symmetric. Abdomen: Normal bowel sounds, soft, RUQ tender, no abdominal mass palpated Skin: Normal skin color, turgor, and pigmentation, no rash, no skin lesions Neurological: Oriented to person, place, and time Results & Data Vital Signs (Past 12 Hours) Vital Signs Temp Pulse Pulse Resp BP Pulse Ox O2 Del Method 01/19/24 08:27 97.7 F 74 16 146/83 H 92 Room Air 01/19/24 08:00 76 01/19/24 03:08 98.1 F 59 L 18 141/79 H 93 Room Air PG Care Time/CCT Total # of Minutes Spent Total Time Spent with Patient: Total time spent is greater than 50% in coordination of care (as documented) at patient's floor/unit and/or counseling patient: Coding Level of Care Code 38106 SUB INP/OBS CARE 2/35MIN Diagnoses Heart failure with mildly reduced ejection fraction (HFmrEF) I50.22 Mitral regurgitation I34.0 Pulmonary hypertension I27.20 Ischemic cardiomyopathy I25.5 Biventricular ICD (implantable cardioverter-defibrillator) in place Z95.810 S/P TAVR (transcatheter aortic valve replacement) Z95.2 CAD (coronary artery disease) I25.10
--- NOTE | 2024-01-19 13:13 | CT Scan Report ---
CT SCAN OF THE ABDOMEN AND PELVIS WITHOUT IV CONTRAST CLINICAL HISTORY: Generalized abdominal pain. Nausea and vomiting. COMPARISON STUDY: Abdominal CT dated 08/25/2023. TECHNIQUE: CT scan of the abdomen and pelvis is performed from the lung bases to the proximal femora. Images are reviewed in the axial, sagittal, and coronal planes. IV contrast was not administered for this examination as per the referring clinician. Note that the examination is significant with subop timal lateral and IV contrast. A dose lowering technique was utilized adhering to the principles of A LUMA. CT DOSE: 1249.35 mGy.cm FINDINGS: Lung bases: The heart is mildly enlarged and without pericardial effusion. There is evidence of previ ous aortic valve surgery. Pacemaker leads are in place. The coronary arteries are densely calcified. There is diminished attenuation of the cardiac blood pool as compared to myocardium suggesting anemia . There are small to moderate left and moderate right pleural effusions with dependent atelectasis. Liver: The unenhanced liver is normal in size, contour, and attenuation. There is no intrahepatic tamie iary ductal dilatation. Gallbladder: Surgically absent noting clips in the gallbladder fossa. Spleen: Normal in size and attenuation. Pancreas: The unenhanced pancreas is atrophic and grossly unremarkable. Adrenal glands: There is nonspecific thickening of the adrenal glands. This is similar to previous. Kidneys: The unenhanced kidneys are atrophic and without hydronephrosis. There are no renal calculi i dentified. There is no evidence of contour deforming renal mass lesion. Abdominal vasculature: There is advanced atherosclerotic calcification and mild ectasia of the abdomi nal aorta. Bowel: There is mild to moderate colonic fecal retention. No bowel obstruction is seen. The appendix is not visualized and reportedly surgically absent. Peritoneum: No intraperitoneal free air is identified. There is trace free fluid in the pelvis. Lymphadenopathy: None. Pelvic viscera: The bladder is largely decompressed and grossly unremarkable. The uterus is surgicall y absent. No adnexal lesion is seen. Skeletal structures: The skeletal structures are osteopenic. A chronic compression deformity of L1 is unchanged. There is mild to moderate lumbosacral spondylosis. No lytic or blastic lesions are seen. IMPRESSION: 1. No acute infectious or inflammatory findings are identified in the abdomen or pelvis. 2. Right larger than left pleural effusions. 3. Cardiomegaly and cardiac pacemaker. 4. There is trace nonspecific free fluid in the pelvis. 5. Additional findings as above. ACT 112: Negative or not required by law. Electronically signed by: Marcus East M.D. 01/19/2024 1:11 PM
--- NOTE | 2024-01-19 15:27 | Hospitalist Progress Note ---
Date of Service January 19, 2024 Assessment & Plan (1) CHF exacerbation: Plan: -Currently hemodynamically stable and stable on RA -Presented to the ED for ongoing weight gain and SOB with poor response to PO bumex outpatient -Noted to be up approximately 9 lbs from her last admission at the beginning of December -Has known HFrEF with new severe mitral regurgitation as of echo from 12/18/23 -Noted to have ongoing pulmonary edema and BL pleural effusions Has been getting 2 mg IV twice daily of Bumex Creatinine is slightly bumped today It could be related to her GI issues, poor p.o. intake, vomiting overnight along with getting aggressive diuretics Held this morning's Bumex dose Will give her 2 mg IV Bumex once today. I think she is still fluid overloaded with bilateral pleural effusions and still in need of Bumex but will give her lower dose today -Cardiology on board -Monitor intake/output q-shift and daily weights -Home Eliquis for DVT PPX Patient has ischemic cardiomyopathy EF 40 to 45% Continue carvedilol Status post biventricular defibrillator Has not tolerated losartan in the past (2) Elevated troponin: Plan: -Initial high sen trop elevated -No acute ST segment or T-wave changes on ECG today -Patient denies chest pain -Likely due to demand as this is how she typically presents on previous admissions for CHF exacerbations -Continue to monitor on tele -Cardiology on board (3) SOB (shortness of breath): Plan: -Most likely due to her CHF exacerbation -Has also noted increased orthopnea -CXR mentioned Right basilar opacity which represent atelectasis Pro-Jose level negative -Incentive spirometry, flutter therapy -PRN O2 to keep SpO2 at or above 94% (4) GERD (gastroesophageal reflux disease): Plan: -Reflux symptoms have been uncontrolled on Esomeprazole -Will try pantoprazole and famotidine while admitted Patient has had issues with vomiting, nausea, no appetite overnight With her diabetes, she may have diabetic gastroparesis Will encourage her to have small frequent meals (5) DM II (diabetes mellitus, type II), controlled: Plan: -Monitor BSG ACHS, goal is 110-160 -Start 5 units lantus BID as she has been eating less recently with her reflux symptoms -Start CF of 50 and CR of 15 for now -Adjust regimen as needed (6) PAF (paroxysmal atrial fibrillation): Plan: -Currently in a paced rhythm -Continue eliquis and carvedilol (7) S/P coronary artery stent placement: Plan: -Continue Brilinta (8) Bilateral carotid artery stenosis: Plan: -Continue Brilinta (9) Hypothyroidism: Plan: -Continue levothyroxine Admission and Anticipated Discharge Date Admission Date: January 16, 2024 Subjective Patient says that she vomited last night. This morning she has no appetite. She says that she feels like she is still getting winded with minimal exertion. Review of Systems Review of Systems: All systems reviewed & are unremarkable except as noted in Subjective Physical Exam Physical Exam: General: Awake, conversant Heart: S1, S2/regular rate and rhythm, no murmur rubs or gallops Lungs: Diminished breath sounds at the bases bilaterally. Normal effort Abdomen: Soft/nontender/nondistended. No hepatosplenomegaly Extremities: No clubbing/cyanosis. No edema Behavior: Appropriate, cooperative Results & Data Results & Data Vital Signs (Past 12 Hours) Vital Signs Temp Pulse Pulse Resp BP Pulse Ox O2 Del Method 01/19/24 08:27 36.5 C 74 16 146/83 H 92 Room Air 01/19/24 08:00 76 Laboratory Results Abnormal lab results 01/18/24 01/19/24 01/19/24 Range/Units 20:10 05:47 08:10 RBC 3.70 L (4.20-5.40) M/uL Hgb 10.3 L (12.0-16.0) g/dl Hct 34.8 L (37.0-47.0) % MCHC 29.6 L (32.0-36.0) g/dL RDW Std Deviation 51.0 H (36.4-46.3) fL RDW Coeff of Manuela 14.6 H (11.5-14.5) % Tift # (Auto) 1.48 H (0.11-0.59) K/uL Carbon Dioxide 33 H (21-32) mmol/L BUN 45 H (6-23) mg/dl Creatinine 2.27 H (0.6-1.2) mg/dl Glucose 147 H (70-99(Fasting)) mg/dl POC Glucose 144 H 135 H (70-99) mg/dl 01/19/24 Range/Units 11:59 RBC (4.20-5.40) M/uL Hgb (12.0-16.0) g/dl Hct (37.0-47.0) % MCHC (32.0-36.0) g/dL RDW Std Deviation (36.4-46.3) fL RDW Coeff of Manuela (11.5-14.5) % Tift # (Auto) (0.11-0.59) K/uL Carbon Dioxide (21-32) mmol/L BUN (6-23) mg/dl Creatinine (0.6-1.2) mg/dl Glucose (70-99(Fasting)) mg/dl POC Glucose 210 H (70-99) mg/dl PG Care Time/CCT Total # of Minutes Spent Total Time Spent with Patient: Total time spent is greater than 50% in coordination of care (as documented) at patient's floor/unit and/or counseling patient: Coding Level of Care Code 08901 SUB INP/OBS CARE 2/35MIN Diagnoses CHF exacerbation I50.9 Elevated troponin R77.8 SOB (shortness of breath) R06.02 GERD (gastroesophageal reflux disease) K21.9 Controlled type 2 diabetes mellitus with diabetic nephropathy, with long-term current use of insulin E11.21; Z79.4 Diabetes mellitus residential insulin use: with salvage determiner use Diabetes mellitus complication status: with kidney complications Diabetes mellitus complication detail: with nephropathy PAF (paroxysmal atrial fibrillation) I48.0 S/P coronary artery stent placement Z95.5 Bilateral carotid artery stenosis I65.23 Acquired hypothyroidism E03.9 Hypothyroidism type: acquired (5) DM II (diabetes mellitus, type II), controlled Diabetes mellitus residential insulin use: with residential use Diabetes mellitus complication status: with kidney complications Diabetes mellitus complication detail: with nephropathy Qualified Code(s): E11.21 - Type 2 diabetes mellitus with diabetic nephropathy; Z79.4 - salvage determiner (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 (9) Hypothyroidism Hypothyroidism type: acquired Qualified Code(s): E03.9 - Hypothyroidism, unspecified
[2024-01-19] MEDS: BUMETANIDE 2 MG in SYRINGE 0 ML IV ONE (16:40)
--- NOTE | 2024-01-19 19:03 | Electrocardiogram Report ---
Test Reason : Blood Pressure : / mmHG Vent. Rate : 072 BPM Atrial Rate : 073 BPM P-R Int : 000 ms QRS Dur : 162 ms QT Int : 462 ms P-R-T Axes : 000 -78 103 degrees QTc Int : 505 ms Ventricular-paced rhythm Biventricular pacemaker detected Abnormal ECG When compared with ECG of 18-DEC-2023 11:59, Vent. rate has decreased BY 6 BPM Confirmed by Davion Alvarez ([id number]) on 01/19/2024 7:03:09 PM Referred By: Confirmed By:Davion Alvarez
[2024-01-20 08:55] LABS: Hemoglobin 10.5 g/dl (12.0-16.0); Mean Corpuscular Hemoglobin 27.5 pg (25.0-34.0); Mean Corpuscular Hgb Conc 29.2 g/dL (32.0-36.0); Mean Corpuscular Volume 94.2 fL (80.0-100.0); Mean Platelet Volume 10.5 fL (9.4-12.4); Platelet Count 282 K/uL (130-400); RDW Coefficient of Variation 14.6 % (11.5-14.5); RDW Standard Deviation 50.3 fL (36.4-46.3); Red Blood Count 3.82 M/uL (4.20-5.40); White Blood Count 9.71 K/ul (4.8-10.8)
[2024-01-20 09:12] LABS: BUN Creatinine Ratio 19.2 (10-20); Calcium 8.9 mg/dl (8.6-10.3); Creatinine Clr Calc Pharmacy 22.4 ml/min; Est GFR (African American) 25.5 ml/min
--- NOTE | 2024-01-20 14:38 | Hospitalist Progress Note ---
Date of Service January 20, 2024 Assessment & Plan (1) CHF exacerbation: Plan: -Currently hemodynamically stable and stable on RA -Presented to the ED for ongoing weight gain and SOB with poor response to PO bumex outpatient -Noted to be up approximately 9 lbs from her last admission at the beginning of December -Has known HFrEF with new severe mitral regurgitation as of echo from 12/18/23 -Noted to have ongoing pulmonary edema and BL pleural effusions Has been getting 2 mg IV twice daily of Bumex Creatinine stable Resume Bumex 2 mg IV twice daily as she is still fluid overloaded -Cardiology on board -Monitor intake/output q-shift and daily weights -Home Eliquis for DVT PPX Patient has ischemic cardiomyopathy EF 40 to 45% Continue carvedilol Status post biventricular defibrillator Has not tolerated losartan in the past (2) Elevated troponin: Plan: -Initial high sen trop elevated -No acute ST segment or T-wave changes on ECG today -Patient denies chest pain -Likely due to demand as this is how she typically presents on previous admissions for CHF exacerbations -Continue to monitor on tele -Cardiology on board (3) SOB (shortness of breath): Plan: -Most likely due to her CHF exacerbation -Has also noted increased orthopnea -CXR mentioned Right basilar opacity which represent atelectasis Pro-Jose level negative -Incentive spirometry, flutter therapy -PRN O2 to keep SpO2 at or above 94% (4) GERD (gastroesophageal reflux disease): Plan: -Reflux symptoms have been uncontrolled on Esomeprazole -Will try pantoprazole and famotidine while admitted Patient has had issues with vomiting, nausea, no appetite overnight. CT abdomen was unremarkable With her diabetes, she may have diabetic gastroparesis Will encourage her to have small frequent meals (5) DM II (diabetes mellitus, type II), controlled: Plan: -Monitor BSG ACHS, goal is 110-160 -Start 5 units lantus BID as she has been eating less recently with her reflux symptoms -Start CF of 50 and CR of 15 for now -Adjust regimen as needed (6) PAF (paroxysmal atrial fibrillation): Plan: -Currently in a paced rhythm -Continue eliquis and carvedilol (7) S/P coronary artery stent placement: Plan: -Continue Brilinta (8) Bilateral carotid artery stenosis: Plan: -Continue Brilinta (9) Hypothyroidism: Plan: -Continue levothyroxine Admission and Anticipated Discharge Date Admission Date: January 16, 2024 Subjective Patient has not had much nausea or vomiting overnight. She is tolerating her diet today. She says that she diuresed quite a bit after she got her Bumex dose yesterday. Review of Systems Review of Systems: All systems reviewed & are unremarkable except as noted in Subjective Physical Exam Physical Exam: General: Awake, conversant Heart: S1, S2/regular rate and rhythm, no murmur rubs or gallops Lungs: Diminished breath sounds at the bases bilaterally. Normal effort Abdomen: Soft/nontender/nondistended. No hepatosplenomegaly Extremities: No clubbing/cyanosis. No edema Behavior: Appropriate, cooperative Results & Data Results & Data Vital Signs (Past 12 Hours) Vital Signs Temp Pulse Pulse Resp BP BP Pulse Ox 01/20/24 11:02 36.7 C 66 16 138/81 93 01/20/24 08:25 36.7 C 76 16 144/77 H 90 01/20/24 07:28 01/20/24 07:07 70 01/20/24 02:59 36.8 C 72 16 103/63 91 O2 Del Method 01/20/24 11:02 Room Air 01/20/24 08:25 Room Air 01/20/24 07:28 Room Air 01/20/24 07:07 01/20/24 02:59 Room Air Laboratory Results Abnormal lab results 01/19/24 01/19/24 01/20/24 Range/Units 16:50 20:15 08:06 RBC (4.20-5.40) M/uL Hgb (12.0-16.0) g/dl Hct (37.0-47.0) % MCHC (32.0-36.0) g/dL RDW Std Deviation (36.4-46.3) fL RDW Coeff of Manuela (11.5-14.5) % Carbon Dioxide (21-32) mmol/L BUN (6-23) mg/dl Creatinine (0.6-1.2) mg/dl Glucose (70-99(Fasting)) mg/dl POC Glucose 102 H 256 H 129 H (70-99) mg/dl 01/20/24 01/20/24 Range/Units 08:41 11:45 RBC 3.82 L (4.20-5.40) M/uL Hgb 10.5 L (12.0-16.0) g/dl Hct 36.0 L (37.0-47.0) % MCHC 29.2 L (32.0-36.0) g/dL RDW Std Deviation 50.3 H (36.4-46.3) fL RDW Coeff of Manuela 14.6 H (11.5-14.5) % Carbon Dioxide 33 H (21-32) mmol/L BUN 39 H (6-23) mg/dl Creatinine 2.03 H (0.6-1.2) mg/dl Glucose 141 H (70-99(Fasting)) mg/dl POC Glucose 120 H (70-99) mg/dl PG Care Time/CCT Total # of Minutes Spent Total Time Spent with Patient: Total time spent is greater than 50% in coordination of care (as documented) at patient's floor/unit and/or counseling patient: Coding Level of Care Code 12426 SUB INP/OBS CARE 2/35MIN Diagnoses CHF exacerbation I50.9 Elevated troponin R77.8 SOB (shortness of breath) R06.02 GERD (gastroesophageal reflux disease) K21.9 Controlled type 2 diabetes mellitus with diabetic nephropathy, with long-term current use of insulin E11.21; Z79.4 Diabetes mellitus assisted insulin use: with assisted use Diabetes mellitus complication status: with kidney complications Diabetes mellitus complication detail: with nephropathy PAF (paroxysmal atrial fibrillation) I48.0 S/P coronary artery stent placement Z95.5 Bilateral carotid artery stenosis I65.23 Acquired hypothyroidism E03.9 Hypothyroidism type: acquired (5) DM II (diabetes mellitus, type II), controlled Diabetes mellitus watermaster insulin use: with watermaster use Diabetes mellitus complication status: with kidney complications Diabetes mellitus complication detail: with nephropathy Qualified Code(s): E11.21 - Type 2 diabetes mellitus with diabetic nephropathy; Z79.4 - detention (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 (9) Hypothyroidism Hypothyroidism type: acquired Qualified Code(s): E03.9 - Hypothyroidism, unspecified
--- NOTE | 2024-01-20 16:18 | Cardiology Progress Note ---
Date of Service January 20, 2024 Assessment & Plan (1) Heart failure with mildly reduced ejection fraction (HFmrEF): (2) Mitral regurgitation: (3) CAD (coronary artery disease): (4) S/P coronary artery stent placement: (5) Ischemic cardiomyopathy: (6) Atrial fibrillation, permanent: (7) Hyperlipidemia: (8) S/P TAVR (transcatheter aortic valve replacement): Plan ASSESSMENT/PLAN: 1. Acute on chronic heart failure with improved/mid range EF: She appears hypervolemic. Bumex was held/reduced yesterday according to records. Agree with twice daily Bumex 2 mg IV for now and may need to further increase. Strict I's and O's. Daily weights. Low-sodium diet. Continue low-dose carvedilol. Has not tolerated ARNI/ACEI/ARB according to records due to symptomatic hypotension. She has not tolerated higher doses of carvedilol. ARNI, spironolactone, SGLT2 inhibitor not initiated due to hypotension with more aggressive regimen in the past. 2. Ischemic cardiomyopathy: LV systolic function has been more significantly reduced in the past. Continue current dose of carvedilol but has not tolerated more aggressive medical therapy in the past according to records due to hypotension. Biventricular ICD in place. 3. Mitral regurgitation: More significant based on more recent imaging. Optimize volume status today. Can repeat imaging in the future and if while euvolemic, has severe mitral regurgitation, could consider corrective measures if felt to be a candidate. 4. Paroxysmal A-fib/flutter: Status post AV ablation. Permanent A-fib based on device interrogation on record. On beta-estephania. On anticoagulation for stroke risk reduction. 5. Aortic stenosis s/p TAVR: Annual surveillance. SBE prophylaxis for dental cleaning. 6. CAD s/p LM, LAD, Cx, RCA PCI: No angina. Brilinta has been recommended indefinitely by interventional cardiology. Would consider reducing dose to 60 mg twice daily as she is also on anticoagulation therapy as she is 4 years out from most recent PCI. Unclear if she was recommended to be on 90 mg twice daily indefinitely. 60 mg is not available on formulary and thus we will continue 90 mg twice daily here. Statin intolerant per records. 7. Biventricular ICD: Follows with EP. 8. Dyslipidemia: Most recent LDL in 2022 was severely elevated. Statin intolerant. Intolerant to Zetia. Suggest PCSK9 inhibitor as an outpatient if agreeable. 9. Disposition: Cardiology will continue to follow. Patient care communicated with primary hospitalist, Dr. Sy. On discharge, follow with primary regional marketing director, Dr. Irizarry, and heart failure clinic. Admission and Anticipated Discharge Date Admission Date: January 16, 2024 Subjective Patient seen earlier today. She still has dyspnea on exertion but improved during this hospital stay. She has occasional orthopnea and occasional back pain. She denies chest pain. She has not noted any edema. She has chronic palpitations which seems stable. She was alone in her hospital room. Physical Exam Physical Exam: Gen.: No acute distress. Alert. HEENT: Anicteric sclera. Neck: Mild JVD. Cardiac: No ventricular heave. Regular. Normal S1-S2. 2/6 systolic murmur. Pulmonary: Clear to auscultation bilaterally without wheezes, rales, or rhonchi. Abdomen: Soft, nontender, nondistended, with normoactive bowel sounds. No bruits noted. Extremities: 2+ radial pulses bilaterally. 2+ posterior tibialis pulses bilaterally. No edema or cyanosis. Bilateral lower extremity varicose veins. Psychiatric: Affect appears appropriate. Results & Data Vital Signs (Past 12 Hours) Vital Signs Temp Pulse Pulse Resp BP Pulse Ox O2 Del Method 01/20/24 15:38 36.5 C 72 16 126/71 90 Room Air 01/20/24 15:18 71 01/20/24 11:02 36.7 C 66 16 138/81 93 Room Air 01/20/24 08:25 36.7 C 76 16 144/77 H 90 Room Air 01/20/24 07:28 Room Air 01/20/24 07:07 70 Intake & Output 01/18/24 01/19/24 01/20/24 01/21/24 06:59 06:59 06:59 06:59 Intake Total 900 / 900 490 / 490 700 / 700 Output Total 1950 / 1950 300 / 300 Balance 900 / 900 -1460 / -1460 400 / 400 Weight 198 lb 3.129 oz 198 lb 10.184 oz 198 lb 13.711 oz Laboratory Results Laboratory Results - last 24 hr 01/19/24 01/19/24 01/20/24 16:50 20:15 08:06 WBC RBC Hgb Hct MCV MCH MCHC RDW Std Deviation RDW Coeff of Manuela Plt Count MPV Sodium Potassium Chloride Carbon Dioxide Anion Gap BUN Creatinine Est Cr Clr Drug Dosing Est GFR ( Amer) Est GFR (Non-Af Amer) BUN/Creatinine Ratio Glucose POC Glucose 102 H 256 H 129 H Calcium 01/20/24 01/20/24 08:41 11:45 WBC 9.71 RBC 3.82 L Hgb 10.5 L Hct 36.0 L MCV 94.2 MCH 27.5 MCHC 29.2 L RDW Std Deviation 50.3 H RDW Coeff of Manuela 14.6 H Plt Count 282 MPV 10.5 Sodium 137 Potassium 4.0 Chloride 99 Carbon Dioxide 33 H Anion Gap 5 BUN 39 H Creatinine 2.03 H Est Cr Clr Drug Dosing 22.4 Est GFR ( Amer) 25.5 Est GFR (Non-Af Amer) 22.0 BUN/Creatinine Ratio 19.2 Glucose 141 H POC Glucose 120 H Calcium 8.9 Diagnostic Findings Telemetry personally reviewed: Ventricular paced. Chart reviewed. Echo 12/18/2023: LVEF 40 to 45%. Global hypokinesis. Severe left and mild right atrial dilation. Bioprosthetic aortic valve. Moderate to severe MR. Moderate pulmonary hypertension reported. Moderate TR. Labs reviewed from this hospital stay and on 01/20/2024 notable for mild anemia, abnormal but stable renal function, normal potassium. BNP elevated on presentation. Medications Administered Current Inpatient Medications Apixaban (Apixaban 2.5 Mg Tab) 2.5 mg PO BID [facility] Stop: 02/15/24 20:59 Last Admin: 01/20/24 07:56 Dose: 2.5 mg Calcium Carbonate (Calcium Carbonate 500 Mg Chewable Tab) 500 mg PO Q4H PRN PRN Reason: Indigestion Stop: 02/16/24 03:10 Carvedilol (Carvedilol 3.125 Mg Tab) 3.125 mg PO BIDM [facility] Stop: 02/15/24 20:59 Last Admin: 01/20/24 07:56 Dose: 3.125 mg Dextrose (Dextrose 50% 50 Ml Syringe) 25 - 50 ml IV UD PRN; Protocol PRN Reason: Hypoglycemia Protocol Stop: 02/15/24 18:20 Famotidine (Famotidine 20 Mg Tab) 20 mg PO Q2D [facility] Stop: 02/16/24 08:59 Last Admin: 01/19/24 08:55 Dose: 20 mg Gabapentin (Gabapentin 300 Mg Cap) 300 mg PO HS [facility] Stop: 02/15/24 20:59 Last Admin: 01/19/24 21:09 Dose: 300 mg Glucagon (Glucagon For Inj 1 Mg Vial) 1 mg SQ UD PRN; Protocol PRN Reason: Hypoglycemia Protocol Stop: 02/15/24 18:20 Glucose (Glucose 10 Tab/Tube) 4 - 8 tab PO UD PRN; Protocol PRN Reason: Hypoglycemia Treatment Stop: 02/15/24 18:20 Glucose (Glucose 40% Gel 15 Gm Tube) 15 - 30 gm PO UD PRN; Protocol PRN Reason: Hypoglycemia Protocol Stop: 02/15/24 18:20 Bumetanide 2 mg/ Syringe 8 mls @ 4 mls/min IV BID@0900,1700 [facility] Stop: 02/19/24 16:59 Insulin Aspart (Insulin Aspart Per Unit Charge) 0 units SC ACHS [facility] Stop: 02/15/24 20:59 Last Admin: 01/20/24 12:48 Dose: 4 units Insulin Glargine (Lantus Per Unit Charge) 5 units SQ BID [facility] Stop: 02/15/24 20:59 Last Admin: 01/20/24 09:03 Dose: 5 units Levothyroxine Sodium (Levothyroxine Sodium 75 Mcg Tablet) 75 mcg PO DAILYBB [facility] Stop: 02/16/24 06:29 Last Admin: 01/20/24 06:24 Dose: 75 mcg Magnesium Oxide (Magnesium Oxide 400 Mg Tab) 400 mg PO QPM [facility] Stop: 02/15/24 20:59 Last Admin: 01/19/24 21:09 Dose: 400 mg Miscellaneous (Carbohydrates For Hypoglycemia ) 15 - 30 gm PO UD PRN PRN Reason: Hypoglycemia Protocol Stop: 02/15/24 18:20 Ondansetron HCl (Ondansetron Inj 2 Mg/Ml 2 Ml Vial) 4 mg IV Q6H PRN PRN Reason: Nausea And Vomiting Stop: 02/16/24 03:10 Last Admin: 01/18/24 22:50 Dose: 4 mg Pantoprazole Sodium (Pantoprazole 40 Mg Tab) 40 mg PO DAILY [facility] Stop: 02/16/24 08:59 Last Admin: 01/20/24 07:57 Dose: 40 mg Polyethylene Glycol (Polyethylene (Miralax) 17 Gm Pack) 17 gm PO HS [facility] Stop: 02/17/24 20:59 Last Admin: 01/19/24 21:09 Dose: 17 gm Sertraline HCl (Sertraline Hcl 50 Mg Tablet) 75 mg PO DAILY [facility] Stop: 02/16/24 08:59 Last Admin: 01/20/24 07:57 Dose: 75 mg Ticagrelor (Ticagrelor 90 Mg Tab) 90 mg PO BID [facility] Stop: 02/15/24 20:59 Last Admin: 01/20/24 07:57 Dose: 90 mg Trazodone HCl (Trazodone Hcl 50 Mg Tab) 50 mg PO HS PRN PRN Reason: insomnia Stop: 02/15/24 18:43 Last Admin: 01/17/24 08:26 Dose: 50 mg Vibegron (Vibegron 75 Mg Tab) 75 mg PO DAILY [facility]; Protocol Stop: 02/16/24 08:59 Last Admin: 01/20/24 07:57 Dose: 75 mg PG Care Time/CCT Total # of Minutes Spent Total Time Spent with Patient: Total time spent is greater than 50% in coordination of care (as documented) at patient's floor/unit and/or counseling patient: Coding Level of Care Code 23686 SUB INP/OBS CARE 3/50MIN Diagnoses Heart failure with mildly reduced ejection fraction (HFmrEF) I50.22 Mitral regurgitation I34.0 CAD (coronary artery disease) I25.10 S/P coronary artery stent placement Z95.5 Ischemic cardiomyopathy I25.5 Atrial fibrillation, permanent I48.21 Hyperlipidemia E78.5 S/P TAVR (transcatheter aortic valve replacement) Z95.2
[2024-01-20] MEDS: BUMETANIDE 2 MG in SYRINGE 0 ML IV SCH (17:30)
[2024-01-20] MEDS ORDERED: TICAGRELOR 90 MG TAB PO SCH (21:00)
[2024-01-21] MEDS: CALCIUM CARBONATE 500 MG CHEWABLE TAB PO PRN (04:11)
[2024-01-21 07:31] LABS: BUN Creatinine Ratio 21.9 (10-20); Calcium 8.9 mg/dl (8.6-10.3); Creatinine Clr Calc Pharmacy 24.9 ml/min; Est GFR (African American) 28.9 ml/min; Est GFR (Non-African American) 24.9 ml/min
--- NOTE | 2024-01-21 11:16 | Cardiology Progress Note ---
Date of Service January 21, 2024 Assessment & Plan (1) Heart failure with mildly reduced ejection fraction (HFmrEF): (2) Mitral regurgitation: (3) Pulmonary hypertension: (4) Ischemic cardiomyopathy: (5) Biventricular ICD (implantable cardioverter-defibrillator) in place: (6) S/P TAVR (transcatheter aortic valve replacement): (7) CAD (coronary artery disease): (8) S/P coronary artery stent placement: (9) Atrial fibrillation, permanent: (10) Hyperlipidemia: Plan ASSESSMENT/PLAN: 1. Acute on chronic heart failure with improved/mid range EF: Still mildly hypervolemic. IV Bumex has been replaced with p.o. Bumex by hospital service due to dizziness. Recommend 2 mg twice daily p.o. Bumex for now. Her home dose is 1 mg twice daily. Try to maintain 500 to 1000 mL net negative fluid balance daily. Strict I's and O's. Daily weights. Low-sodium diet. Continue low-dose carvedilol. Has not tolerated ARNI/ACEI/ARB according to records due to symptomatic hypotension. She has not tolerated higher doses of carvedilol. ARNI, spironolactone, SGLT2 inhibitor not initiated due to hypotension with more aggressive regimen in the past. 2. Ischemic cardiomyopathy: LV systolic function has been more significantly reduced in the past. Continue current dose of carvedilol but has not tolerated more aggressive medical therapy in the past according to records due to hypotension. Biventricular ICD in place. 3. Mitral regurgitation: More significant based on more recent imaging. Optimize volume status. Can repeat imaging in the future as an outpatient and if while euvolemic, has severe mitral regurgitation, could consider corrective measures if felt to be a candidate. 4. Paroxysmal A-fib/flutter: Status post AV ablation. Permanent A-fib based on device interrogation on record. On beta-estephania. On anticoagulation for stroke risk reduction. 5. Aortic stenosis s/p TAVR: Annual surveillance. SBE prophylaxis for dental cleaning. 6. CAD s/p LM, LAD, Cx, RCA PCI: No obvious angina. Brilinta has been recommended indefinitely by interventional cardiology. Would consider reducing dose to 60 mg twice daily as she is also on anticoagulation therapy as she is 4 years out from most recent PCI. Unclear if she was recommended to be on 90 mg twice daily indefinitely. 60 mg is not available on formulary and thus we will continue 90 mg twice daily here. Statin intolerant per records. 7. Biventricular ICD: Follows with EP. 8. Dyslipidemia: Most recent LDL in 2022 was severely elevated. Statin intolerant. Intolerant to Zetia. Suggest PCSK9 inhibitor as an outpatient if agreeable. 9. Disposition: Cardiology will continue to follow. Patient care communicated with primary hospitalist, Dr. Sy. On discharge, follow with primary gis geographer, Dr. Irizarry, and heart failure clinic. Admission and Anticipated Discharge Date Admission Date: January 16, 2024 Subjective Patient seen earlier today. Still has some orthopnea and dyspnea on exertion. She noted some lightheadedness today even while sitting or laying in bed. She has occasional tightness across her chest at rest which is not new. She denies syncope, edema, or bleeding. Her friend was sitting at the bedside. Physical Exam Physical Exam: Gen.: No acute distress. Alert. HEENT: Anicteric sclera. Neck: JVD custodial to the mandible with that elevated approximately 60 degrees. Cardiac: No ventricular heave. Regular. Normal S1-S2. 2/6 systolic murmur. Pulmonary: Clear to auscultation bilaterally without wheezes, rales, or rhonchi. Abdomen: Soft, nontender, nondistended, with normoactive bowel sounds. No bruits noted. Extremities: 2+ radial pulses bilaterally. 2+ posterior tibialis pulses bilaterally. No edema or cyanosis. Bilateral lower extremity varicose veins. Psychiatric: Affect appears appropriate. Results & Data Vital Signs (Past 12 Hours) Vital Signs Temp Pulse Pulse Resp BP BP Pulse Ox 01/21/24 11:02 36.7 C 77 16 153/81 H 90 01/21/24 08:32 36.7 C 70 16 165/86 H 90 01/21/24 07:18 01/21/24 07:02 74 01/21/24 03:59 36.8 C 74 18 143/79 H 91 01/21/24 00:07 70 01/20/24 23:26 36.6 C 75 18 134/61 93 O2 Del Method 01/21/24 11:02 Room Air 01/21/24 08:32 Room Air 01/21/24 07:18 Room Air 01/21/24 07:02 01/21/24 03:59 Room Air 01/21/24 00:07 01/20/24 23:26 Room Air Intake & Output 01/19/24 01/20/24 01/21/24 01/22/24 06:59 06:59 06:59 06:59 Intake Total 490 / 490 700 / 700 840 / 840 Output Total 1950 / 1950 300 / 300 900 / 900 Balance -1460 / -1460 400 / 400 -60 / -60 Weight 198 lb 10.184 oz 198 lb 13.711 oz 198 lb 6.656 oz 196 lb 10.437 oz Laboratory Results Laboratory Results - last 24 hr 01/20/24 01/20/24 01/20/24 11:45 16:59 20:35 Sodium Potassium Chloride Carbon Dioxide Anion Gap BUN Creatinine Est Cr Clr Drug Dosing Est GFR ( Amer) Est GFR (Non-Af Amer) BUN/Creatinine Ratio Glucose POC Glucose 120 H 100 H 156 H Calcium 01/21/24 01/21/24 05:42 08:27 Sodium 137 Potassium 4.0 Chloride 98 Carbon Dioxide 32 Anion Gap 7 BUN 40 H Creatinine 1.83 H Est Cr Clr Drug Dosing 24.9 Est GFR ( Amer) 28.9 Est GFR (Non-Af Amer) 24.9 BUN/Creatinine Ratio 21.9 H Glucose 126 H POC Glucose 141 H Calcium 8.9 Diagnostic Findings Telemetry personally reviewed: Ventricular paced. No arrhythmia. Hospitalist note reviewed from today. Labs reviewed from today and notable for chronically abnormal renal function with improved creatinine from yesterday, within her baseline. Normal potassium. Medications Administered Current Inpatient Medications Apixaban (Apixaban 2.5 Mg Tab) 2.5 mg PO BID [facility] Stop: 02/15/24 20:59 Last Admin: 01/21/24 08:25 Dose: 2.5 mg Calcium Carbonate (Calcium Carbonate 500 Mg Chewable Tab) 500 mg PO Q4H PRN PRN Reason: Indigestion Stop: 02/16/24 03:10 Last Admin: 01/21/24 04:11 Dose: 500 mg Carvedilol (Carvedilol 3.125 Mg Tab) 3.125 mg PO BIDM [facility] Stop: 02/15/24 20:59 Last Admin: 01/21/24 08:26 Dose: 3.125 mg Dextrose (Dextrose 50% 50 Ml Syringe) 25 - 50 ml IV UD PRN; Protocol PRN Reason: Hypoglycemia Protocol Stop: 02/15/24 18:20 Famotidine (Famotidine 20 Mg Tab) 20 mg PO Q2D ANDREW Stop: 02/16/24 08:59 Last Admin: 01/21/24 08:25 Dose: 20 mg Gabapentin (Gabapentin 300 Mg Cap) 300 mg PO HS ANDREW Stop: 02/15/24 20:59 Last Admin: 01/20/24 20:08 Dose: 300 mg Glucagon (Glucagon For Inj 1 Mg Vial) 1 mg SQ UD PRN; Protocol PRN Reason: Hypoglycemia Protocol Stop: 02/15/24 18:20 Glucose (Glucose 10 Tab/Tube) 4 - 8 tab PO UD PRN; Protocol PRN Reason: Hypoglycemia Treatment Stop: 02/15/24 18:20 Glucose (Glucose 40% Gel 15 Gm Tube) 15 - 30 gm PO UD PRN; Protocol PRN Reason: Hypoglycemia Protocol Stop: 02/15/24 18:20 Bumetanide 2 mg/ Syringe 8 mls @ 4 mls/min IV BID@0900,1700 [facility] Stop: 02/19/24 16:59 Last Admin: 01/21/24 08:27 Dose: 4 mls/min Insulin Aspart (Insulin Aspart Per Unit Charge) 0 units SC ACHS [facility] Stop: 02/15/24 20:59 Last Admin: 01/21/24 09:09 Dose: 1 units Insulin Glargine (Lantus Per Unit Charge) 5 units SQ BID [facility] Stop: 02/15/24 20:59 Last Admin: 01/21/24 09:09 Dose: 5 units Levothyroxine Sodium (Levothyroxine Sodium 75 Mcg Tablet) 75 mcg PO DAILYBB [facility] Stop: 02/16/24 06:29 Last Admin: 01/21/24 06:07 Dose: 75 mcg Magnesium Oxide (Magnesium Oxide 400 Mg Tab) 400 mg PO QPM [facility] Stop: 02/15/24 20:59 Last Admin: 01/20/24 20:08 Dose: 400 mg Miscellaneous (Carbohydrates For Hypoglycemia ) 15 - 30 gm PO UD PRN PRN Reason: Hypoglycemia Protocol Stop: 02/15/24 18:20 Ondansetron HCl (Ondansetron Inj 2 Mg/Ml 2 Ml Vial) 4 mg IV Q6H PRN PRN Reason: Nausea And Vomiting Stop: 02/16/24 03:10 Last Admin: 01/18/24 22:50 Dose: 4 mg Pantoprazole Sodium (Pantoprazole 40 Mg Tab) 40 mg PO DAILY [facility] Stop: 02/16/24 08:59 Last Admin: 01/21/24 08:26 Dose: 40 mg Polyethylene Glycol (Polyethylene (Miralax) 17 Gm Pack) 17 gm PO HS [facility] Stop: 02/17/24 20:59 Last Admin: 01/20/24 20:08 Dose: 17 gm Sertraline HCl (Sertraline Hcl 50 Mg Tablet) 75 mg PO DAILY [facility] Stop: 02/16/24 08:59 Last Admin: 01/21/24 08:26 Dose: 75 mg Ticagrelor (Ticagrelor 90 Mg Tab) 90 mg PO BID [facility]REW Stop: 02/15/24 20:59 Last Admin: 01/21/24 08:25 Dose: 90 mg Trazodone HCl (Trazodone Hcl 50 Mg Tab) 50 mg PO HS PRN PRN Reason: insomnia Stop: 02/15/24 18:43 Last Admin: 01/17/24 08:26 Dose: 50 mg Vibegron (Vibegron 75 Mg Tab) 75 mg PO DAILY [facility]; Protocol Stop: 02/16/24 08:59 Last Admin: 01/21/24 08:26 Dose: 75 mg PG Care Time/CCT Total # of Minutes Spent Total Time Spent with Patient: Total time spent is greater than 50% in coordination of care (as documented) at patient's floor/unit and/or counseling patient: Coding Level of Care Code 36834 SUB INP/OBS CARE 3/50MIN Diagnoses Heart failure with mildly reduced ejection fraction (HFmrEF) I50.22 Mitral regurgitation I34.0 Pulmonary hypertension I27.20 Ischemic cardiomyopathy I25.5 Biventricular ICD (implantable cardioverter-defibrillator) in place Z95.810 S/P TAVR (transcatheter aortic valve replacement) Z95.2 CAD (coronary artery disease) I25.10 S/P coronary artery stent placement Z95.5 Atrial fibrillation, permanent I48.21 Hyperlipidemia E78.5
--- NOTE | 2024-01-21 13:15 | Hospitalist Progress Note ---
Date of Service January 21, 2024 Assessment & Plan (1) CHF exacerbation: Plan: -Currently hemodynamically stable and stable on RA -Presented to the ED for ongoing weight gain and SOB with poor response to PO bumex outpatient -Noted to be up approximately 9 lbs from her last admission at the beginning of December -Has known HFrEF with new severe mitral regurgitation as of echo from 12/18/23 -Noted to have ongoing pulmonary edema and BL pleural effusions Has been getting 2 mg IV twice daily of Bumex Creatinine stable -Cardiology on board Patient complained of feeling dizzy when she stood up this morning Will switch to p.o. Bumex 2 mg twice daily Renal function tolerating diuretics -Monitor intake/output q-shift and daily weights -Home Eliquis for DVT PPX Patient has ischemic cardiomyopathy EF 40 to 45% Continue carvedilol Status post biventricular defibrillator Has not tolerated losartan in the past (2) Elevated troponin: Plan: -Initial high sen trop elevated -No acute ST segment or T-wave changes on ECG today -Patient denies chest pain -Likely due to demand as this is how she typically presents on previous admissions for CHF exacerbations -Continue to monitor on tele -Cardiology on board (3) SOB (shortness of breath): Plan: -Most likely due to her CHF exacerbation -Has also noted increased orthopnea -CXR mentioned Right basilar opacity which represent atelectasis Pro-Jose level negative -Incentive spirometry, flutter therapy -PRN O2 to keep SpO2 at or above 94% (4) GERD (gastroesophageal reflux disease): Plan: -Reflux symptoms have been uncontrolled on Esomeprazole -Will try pantoprazole and famotidine while admitted Patient has had issues with vomiting, nausea, no appetite overnight. CT abdomen was unremarkable With her diabetes, she may have diabetic gastroparesis Encouraged her to have small frequent meals (5) DM II (diabetes mellitus, type II), controlled: Plan: -Monitor BSG ACHS, goal is 110-160 -Start 5 units lantus BID as she has been eating less recently with her reflux symptoms -Start CF of 50 and CR of 15 for now -Adjust regimen as needed (6) PAF (paroxysmal atrial fibrillation): Plan: -Currently in a paced rhythm -Continue eliquis and carvedilol (7) S/P coronary artery stent placement: Plan: -Continue Brilinta (8) Bilateral carotid artery stenosis: Plan: -Continue Brilinta (9) Hypothyroidism: Plan: -Continue levothyroxine Admission and Anticipated Discharge Date Admission Date: January 16, 2024 Subjective No issues with nausea or vomiting overnight. This morning she felt dizzy when she got up to go to the bathroom. Less winded on exertion. Review of Systems Review of Systems: All systems reviewed & are unremarkable except as noted in Subjective Physical Exam Physical Exam: General: Awake, conversant Heart: S1, S2/regular rate and rhythm, no murmur rubs or gallops Lungs: Diminished breath sounds at the bases bilaterally. Normal effort Abdomen: Soft/nontender/nondistended. No hepatosplenomegaly Extremities: No clubbing/cyanosis. No edema Behavior: Appropriate, cooperative Results & Data Results & Data Vital Signs (Past 12 Hours) Vital Signs Temp Pulse Pulse Resp BP BP Pulse Ox 01/21/24 11:02 36.7 C 77 16 153/81 H 90 01/21/24 08:32 36.7 C 70 16 165/86 H 90 01/21/24 07:18 01/21/24 07:02 74 01/21/24 03:59 36.8 C 74 18 143/79 H 91 O2 Del Method 01/21/24 11:02 Room Air 01/21/24 08:32 Room Air 01/21/24 07:18 Room Air 01/21/24 07:02 01/21/24 03:59 Room Air Laboratory Results Abnormal lab results 01/20/24 01/20/24 01/21/24 Range/Units 16:59 20:35 05:42 BUN 40 H (6-23) mg/dl Creatinine 1.83 H (0.6-1.2) mg/dl BUN/Creatinine Ratio 21.9 H (10-20) Glucose 126 H (70-99(Fasting)) mg/dl POC Glucose 100 H 156 H (70-99) mg/dl 01/21/24 01/21/24 Range/Units 08:27 12:26 BUN (6-23) mg/dl Creatinine (0.6-1.2) mg/dl BUN/Creatinine Ratio (10-20) Glucose (70-99(Fasting)) mg/dl POC Glucose 141 H 154 H (70-99) mg/dl PG Care Time/CCT Total # of Minutes Spent Total Time Spent with Patient: Total time spent is greater than 50% in coordination of care (as documented) at patient's floor/unit and/or counseling patient: Coding Level of Care Code 97107 SUB INP/OBS CARE 235MIN Diagnoses CHF exacerbation I50.9 Elevated troponin R77.8 SOB (shortness of breath) R06.02 GERD (gastroesophageal reflux disease) K21.9 Controlled type 2 diabetes mellitus with diabetic nephropathy, with long-term current use of insulin E11.21; Z79.4 Diabetes mellitus terminal system operator insulin use: with terminal system operator use Diabetes mellitus complication status: with kidney complications Diabetes mellitus complication detail: with nephropathy PAF (paroxysmal atrial fibrillation) I48.0 S/P coronary artery stent placement Z95.5 Bilateral carotid artery stenosis I65.23 Acquired hypothyroidism E03.9 Hypothyroidism type: acquired (5) DM II (diabetes mellitus, type II), controlled Diabetes mellitus terminal system operator insulin use: with long-term use Diabetes mellitus complication status: with kidney complications Diabetes mellitus complication detail: with nephropathy Qualified Code(s): E11.21 - Type 2 diabetes mellitus with diabetic nephropathy; Z79.4 - MCFP (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 (9) Hypothyroidism Hypothyroidism type: acquired Qualified Code(s): E03.9 - Hypothyroidism, unspecified
[2024-01-21] MEDS: BUMETANIDE 1 MG TAB PO SCH (16:24)
[2024-01-22 06:48] LABS: BUN Creatinine Ratio 19.6 (10-20); Calcium 8.9 mg/dl (8.6-10.3); Creatinine Clr Calc Pharmacy 21.6 ml/min; Est GFR (African American) 24.6 ml/min; Est GFR (Non-African American) 21.2 ml/min; Potassium 4.1 mmol/L (3.5-5.1)
--- NOTE | 2024-01-22 13:22 | Cardiology Progress Note ---
Date of Service January 22, 2024 Assessment & Plan (1) Heart failure with mildly reduced ejection fraction (HFmrEF): (2) Mitral regurgitation: (3) Pulmonary hypertension: (4) Ischemic cardiomyopathy: (5) Biventricular ICD (implantable cardioverter-defibrillator) in place: (6) S/P TAVR (transcatheter aortic valve replacement): (7) CAD (coronary artery disease): (8) S/P coronary artery stent placement: (9) Atrial fibrillation, permanent: (10) Hyperlipidemia: Plan ASSESSMENT/PLAN: 1. Acute on chronic heart failure with improved/mid range EF: Breathing back to baseline and seems near euvolemic. Discussed with Latrice Mcmanus who manages her heart failure in the outpatient setting and she had been prescribed 2 mg of Bumex p.o. twice daily. Recommend discharging on Bumex 2 mg p.o. twice daily and has close follow-up later this week with Latrice Mcmanus of the heart failure program. Strict I's and O's. Daily weights. Low-sodium diet. Continue low- dose carvedilol. Has not tolerated ARNI/ACEI/ARB according to records due to symptomatic hypotension. She has not tolerated higher doses of carvedilol. ARNI, spironolactone, SGLT2 inhibitor not initiated due to hypotension with more aggressive regimen in the past. 2. Ischemic cardiomyopathy: LV systolic function has been more significantly reduced in the past. Continue current dose of carvedilol but has not tolerated more aggressive medical therapy in the past according to records due to hypotension. Biventricular ICD in place. 3. Mitral regurgitation: More significant based on more recent imaging. Optimize volume status. Can repeat imaging in the future as an outpatient and if while euvolemic, has severe mitral regurgitation, could consider corrective measures if felt to be a candidate. 4. Paroxysmal A-fib/flutter: Status post AV ablation. Permanent A-fib based on device interrogation on record. On beta-estephania. On anticoagulation for stroke risk reduction. 5. Aortic stenosis s/p TAVR: Annual surveillance. SBE prophylaxis for dental cleaning. 6. CAD s/p LM, LAD, Cx, RCA PCI: No angina. Brilinta has been recommended indefinitely by interventional cardiology. Would consider reducing dose to 60 mg twice daily as she is also on anticoagulation therapy as she is 4 years out from most recent PCI. Unclear if she was recommended to be on 90 mg twice daily indefinitely. 60 mg is not available on formulary and thus we will continue 90 mg twice daily here. Statin intolerant per records. 7. Biventricular ICD: Follows with EP. 8. Dyslipidemia: Most recent LDL in 2022 was severely elevated. Statin intolerant. Intolerant to Zetia. Suggest PCSK9 inhibitor as an outpatient if agreeable. 9. Disposition: Okay to discharge from a cardiac perspective. Patient care communicated with primary hospitalist, Dr. oJel. Discussed patient care with Latrice Mcmanus PA-C who will be seeing her later this week. On discharge, follow with primary tomb maker helper, Dr. Irizarry, and heart failure clinic. Admission and Anticipated Discharge Date Admission Date: January 16, 2024 Subjective Patient seen earlier today. Her breathing is back to baseline. She feels much better in that regard. She denies any significant dyspnea on exertion. She still has some dizziness/lightheadedness but less so. She denies chest pain, syncope, edema, or bleeding. Physical Exam Physical Exam: Gen.: No acute distress. Alert. HEENT: Anicteric sclera. Neck: No appreciable JVD today. Cardiac: No ventricular heave. Regular. Normal S1-S2. 2/6 systolic murmur. Pulmonary: Clear to auscultation bilaterally without wheezes, rales, or rhonchi. Abdomen: Soft, nontender, nondistended, with normoactive bowel sounds. No bruits noted. Extremities: 2+ radial pulses bilaterally. 2+ posterior tibialis pulses bilaterally. No edema or cyanosis. Bilateral lower extremity varicose veins. Psychiatric: Affect appears appropriate. Results & Data Vital Signs (Past 12 Hours) Vital Signs Temp Pulse Pulse Resp BP BP Pulse Ox 01/22/24 11:31 36.4 C L 71 18 171/84 H 93 01/22/24 08:29 01/22/24 07:29 36.7 C 60 18 135/75 95 01/22/24 06:16 75 01/22/24 03:18 36.7 C 70 18 151/70 H 92 O2 Del Method 01/22/24 11:31 Room Air 01/22/24 08:29 Room Air 01/22/24 07:29 Room Air 01/22/24 06:16 04/08/24 03:18 Room Air Intake & Output 01/20/24 01/21/24 01/22/24 01/23/24 06:59 06:59 06:59 06:59 Intake Total 700 / 700 840 / 840 590 / 590 580 / 580 Output Total 300 / 300 900 / 900 800 / 800 500 / 500 Balance 400 / 400 -60 / -60 -210 / -210 80 / 80 Weight 198 lb 13.711 oz 198 lb 6.656 oz 196 lb 3.382 oz Laboratory Results Laboratory Results - last 24 hr 01/21/24 01/21/24 01/22/24 16:52 20:11 06:01 Sodium 138 Potassium 4.1 Chloride 98 Carbon Dioxide 33 H Anion Gap 7 BUN 41 H Creatinine 2.09 H Est Cr Clr Drug Dosing 21.6 Est GFR ( Amer) 24.6 Est GFR (Non-Af Amer) 21.2 BUN/Creatinine Ratio 19.6 Glucose 133 H POC Glucose 133 H 139 H Calcium 8.9 01/22/24 01/22/24 08:16 12:05 Sodium Potassium Chloride Carbon Dioxide Anion Gap BUN Creatinine Est Cr Clr Drug Dosing Est GFR ( Amer) Est GFR (Non-Af Amer) BUN/Creatinine Ratio Glucose POC Glucose 143 H 152 H Calcium Diagnostic Findings Telemetry personally reviewed: Ventricular paced. Labs reviewed from 01/22/2024 and demonstrated abnormal but stable renal function, normal potassium. Medications Administered Current Inpatient Medications Apixaban (Apixaban 2.5 Mg Tab) 2.5 mg PO BID [facility] Stop: 02/15/24 20:59 Last Admin: 01/22/24 07:55 Dose: 2.5 mg Bumetanide (Bumetanide 1 Mg Tab) 2 mg PO BID17 [facility] Stop: 02/20/24 16:59 Last Admin: 01/22/24 07:56 Dose: 2 mg Calcium Carbonate (Calcium Carbonate 500 Mg Chewable Tab) 500 mg PO Q4H PRN PRN Reason: Indigestion Stop: 02/16/24 03:10 Last Admin: 01/21/24 04:11 Dose: 500 mg Carvedilol (Carvedilol 3.125 Mg Tab) 3.125 mg PO BIDM [facility] Stop: 02/15/24 20:59 Last Admin: 01/22/24 07:55 Dose: 3.125 mg Dextrose (Dextrose 50% 50 Ml Syringe) 25 - 50 ml IV UD PRN; Protocol PRN Reason: Hypoglycemia Protocol Stop: 02/15/24 18:20 Famotidine (Famotidine 20 Mg Tab) 20 mg PO Q2D [facility] Stop: 02/16/24 08:59 Last Admin: 01/21/24 08:25 Dose: 20 mg Gabapentin (Gabapentin 300 Mg Cap) 300 mg PO HS [facility] Stop: 02/15/24 20:59 Last Admin: 01/21/24 20:47 Dose: 300 mg Glucagon (Glucagon For Inj 1 Mg Vial) 1 mg SQ UD PRN; Protocol PRN Reason: Hypoglycemia Protocol Stop: 02/15/24 18:20 Glucose (Glucose 10 Tab/Tube) 4 - 8 tab PO UD PRN; Protocol PRN Reason: Hypoglycemia Treatment Stop: 02/15/24 18:20 Glucose (Glucose 40% Gel 15 Gm Tube) 15 - 30 gm PO UD PRN; Protocol PRN Reason: Hypoglycemia Protocol Stop: 02/15/24 18:20 Insulin Aspart (Insulin Aspart Per Unit Charge) 0 units SC ACHS [facility] Stop: 02/15/24 20:59 Last Admin: 01/22/24 12:35 Dose: 3 units Insulin Glargine (Lantus Per Unit Charge) 5 units SQ BID [facility] Stop: 02/15/24 20:59 Last Admin: 01/22/24 08:48 Dose: 5 units Levothyroxine Sodium (Levothyroxine Sodium 75 Mcg Tablet) 75 mcg PO DAILYBB [facility] Stop: 02/16/24 06:29 Last Admin: 01/22/24 05:58 Dose: 75 mcg Magnesium Oxide (Magnesium Oxide 400 Mg Tab) 400 mg PO QPM [facility] Stop: 02/15/24 20:59 Last Admin: 01/21/24 20:47 Dose: 400 mg Miscellaneous (Carbohydrates For Hypoglycemia ) 15 - 30 gm PO UD PRN PRN Reason: Hypoglycemia Protocol Stop: 02/15/24 18:20 Ondansetron HCl (Ondansetron Inj 2 Mg/Ml 2 Ml Vial) 4 mg IV Q6H PRN PRN Reason: Nausea And Vomiting Stop: 02/16/24 03:10 Last Admin: 01/18/24 22:50 Dose: 4 mg Pantoprazole Sodium (Pantoprazole 40 Mg Tab) 40 mg PO DAILY [facility] Stop: 02/16/24 08:59 Last Admin: 01/22/24 07:55 Dose: 40 mg Polyethylene Glycol (Polyethylene (Miralax) 17 Gm Pack) 17 gm PO HS [facility] Stop: 02/17/24 20:59 Last Admin: 01/21/24 20:43 Dose: Not Given Sertraline HCl (Sertraline Hcl 50 Mg Tablet) 75 mg PO DAILY [facility] Stop: 02/16/24 08:59 Last Admin: 01/22/24 07:54 Dose: 75 mg Ticagrelor (Ticagrelor 90 Mg Tab) 90 mg PO BID [facility] Stop: 02/15/24 20:59 Last Admin: 01/22/24 07:54 Dose: 90 mg Trazodone HCl (Trazodone Hcl 50 Mg Tab) 50 mg PO HS PRN PRN Reason: insomnia Stop: 02/15/24 18:43 Last Admin: 01/17/24 08:26 Dose: 50 mg Vibegron (Vibegron 75 Mg Tab) 75 mg PO DAILY [facility]; Protocol Stop: 02/16/24 08:59 Last Admin: 01/22/24 07:55 Dose: 75 mg PG Care Time/CCT Total # of Minutes Spent Total Time Spent with Patient: Total time spent is greater than 50% in coordination of care (as documented) at patient's floor/unit and/or counseling patient: Coding Level of Care Code 27889 SUB INP/OBS CARE 3/50MIN Diagnoses Heart failure with mildly reduced ejection fraction (HFmrEF) I50.22 Mitral regurgitation I34.0 Pulmonary hypertension I27.20 Ischemic cardiomyopathy I25.5 Biventricular ICD (implantable cardioverter-defibrillator) in place Z95.810 S/P TAVR (transcatheter aortic valve replacement) Z95.2 CAD (coronary artery disease) I25.10 S/P coronary artery stent placement Z95.5 Atrial fibrillation, permanent I48.21 Hyperlipidemia E78.5
--- NOTE | 2024-01-22 15:14 | Discharge Summary ---
Date of Service January 22, 2024 Admission HPI Per Admitting Provider Ban is an 83 yo female with PMH of HLD, NSTEMI, CVA, paroxysmal afib (on Eliquis), CKD, HFrEF (LVEF of 40-45%), biventricular ICD in place, aortic stenosis s/p TAVR, PAD s/p stenting, Hypothyroidism, Interstitial Lung Dx, Pulmonary HTN, COPD, insulin dependent DMII, and bilateral carotid artery stenosis who presented to the [facility] ED on 01/16/24 from the Heart Failure Clinic due to concerns for progressive SOB, GOMEZ, and volume overload. Patient's weight is up approximately 9 lbs today compared to 12/22/23 and up 20 lbs compared to previous baseline. On arrival to the ED she was noted to be hypertensive at 178/104 but was otherwise stable. Labs were significant for an initial high sen trop of 33 -->50 on 2 hour repeat, BNP of 580 (up from 553 on last admission for CHF). Chest xray was read as "1. Persistent pulmonary edema, slightly improved since prior exam. 2. Small to moderate right and small left pleural effusions. Right basilar opacity could reflect pneumonia or atelectasis. Radiographic follow-up to ensure resolution is recommended.". Prior to admission the patient was given 40 mg IV lasix. At the time of the exam the patient was sitting in bed in no acute distress with her daughter sitting bedside. The patient states that since her discharge home on 12/22/23 she has had progressive weight gain/swelling. She initially went back to her normal 1 mg PO Bumex BID for weight gain. However, she states that she was not urinating well on this dose. She was told to increase her dose of bumex to 2mg PO BID and even increased her dose to 2mg in the am and 4 mg in the afternoon but her urine output did not increase and her weight continued to increase. She denies recent chest pain, pleuritic chest pain, hemoptysis, dysuria, hematuria, melena, diarrhea, and recent trauma. She also also been experiencing increased nausea and reflux symptoms over the past month. She has been taking her Esomeprazole as prescribed without improvement. She is a full code and would want her daughter to make medical decisions for her if she cannot make them herself. Please refer to Dr. Baresel's attestation for any changes to the treatment plan Principal Diagnosis CHF exacerbation Discharge Exam head atraumatic neck supple chest decreased breath sounds heart S1S2 regular abdomen soft, nt, nd, BS present extremities minimal edema Discharge Data Allergies Allergy/AdvReac Type Severity Reaction Status Date / Time adhesive Allergy Intermediate REDNESS Verified 01/16/24 16:48 AND IRRITATION FROM PAIN PATCH, TAPE latex Allergy Intermediate ALLERGIC Verified 01/16/24 16:48 TO LATEX TAPE/RASH/ITCHING morphine Allergy Intermediate swelling Verified 01/16/24 16:48 nausea vomiting olmesartan Allergy Unknown UNKNOWN Verified 01/16/24 16:48 benzonatate AdvReac Intermediate confusion Verified 01/16/24 16:48 [From Tessalon Perles] dulaglutide [From Trulicity] AdvReac Intermediate AFFECTS Verified 01/16/24 16:48 MUSCLES exenatide [From Byetta] AdvReac Intermediate Diarrhea Verified 01/16/24 16:48 ezetimibe AdvReac Intermediate MUSCLE Verified 01/16/24 16:48 ACHES glipizide AdvReac Intermediate Diarrhea Verified 01/16/24 16:48 glyburide AdvReac Intermediate Diarrhea Verified 01/16/24 16:48 lisinopril AdvReac Intermediate LIGHTHEADED Verified 01/16/24 16:48 AND DIZZY losartan AdvReac Intermediate dizziness Verified 01/16/24 16:48 metformin AdvReac Intermediate Diarrhea Verified 01/16/24 16:48 pioglitazone AdvReac Intermediate DIARRHEA Verified 01/16/24 16:48 NAUSEA sitagliptin [From Januvia] AdvReac Intermediate Diarrhea Verified 01/16/24 16:48 [id number]-VtH Reductase AdvReac Intermediate myalgias Verified 01/16/24 16:48 Inhibitor and [Wjwnjto-Aya-Kmc Reductase weakness Inhibitor] aspirin AdvReac Mild GI SYMPTOMS Verified 01/16/24 16:48 Consultations 01/16/24 17:16 ED Decision to Admit Stat 01/16/24 18:28 Consult Cardiology Routine Ordered Studies 01/19/24 11:12 CT Abd and Pelvis [CT abd pelvis wo con] Stat Hospital Course (1) CHF exacerbation: -Currently hemodynamically stable and stable on RA -Presented to the ED for ongoing weight gain and SOB with poor response to PO bumex outpatient -Noted to be up approximately 9 lbs from her last admission at the beginning of December -Has known HFrEF with new severe mitral regurgitation as of echo from 12/18/23 -Noted to have ongoing pulmonary edema and BL pleural effusions Has been getting 2 mg IV twice daily of Bumex Creatinine stable -Cardiology on board Patient complained of feeling dizzy when she stood up this morning Will switch to p.o. Bumex 2 mg twice daily Renal function tolerating diuretics -Monitor intake/output q-shift and daily weights -Home Eliquis for DVT PPX Patient has ischemic cardiomyopathy EF 40 to 45% Continue carvedilol Status post biventricular defibrillator Has not tolerated losartan in the past as per conversation with grease maker she can be discharged (2) Elevated troponin: -Initial high sen trop elevated -No acute ST segment or T-wave changes on ECG today -Patient denies chest pain -Likely due to demand as this is how she typically presents on previous admissions for CHF exacerbations -Continue to monitor on tele -Cardiology on board (3) SOB (shortness of breath): -Most likely due to her CHF exacerbation -Has also noted increased orthopnea -CXR mentioned Right basilar opacity which represent atelectasis Pro-Jose level negative -Incentive spirometry, flutter therapy -PRN O2 to keep SpO2 at or above 94% (4) GERD (gastroesophageal reflux disease): -Reflux symptoms have been uncontrolled on Esomeprazole -Will try pantoprazole and famotidine while admitted Patient has had issues with vomiting, nausea, no appetite overnight. CT abdomen was unremarkable With her diabetes, she may have diabetic gastroparesis Encouraged her to have small frequent meals (5) DM II (diabetes mellitus, type II), controlled: -Monitor BSG ACHS, goal is 110-160 -Start 5 units lantus BID as she has been eating less recently with her reflux symptoms -Start CF of 50 and CR of 15 for now -Adjust regimen as needed (6) PAF (paroxysmal atrial fibrillation): -Currently in a paced rhythm -Continue eliquis and carvedilol (7) S/P coronary artery stent placement: -Continue Brilinta, reduced dose to 60 mg bid (8) Bilateral carotid artery stenosis: -Continue Brilinta (9) Hypothyroidism: -Continue levothyroxine Total Time Total Time Spent Total Time Spent (In Minutes): 35 min Discharge Plan Discharge Items Patient Disposition: Home - Self-Care Reason For Visit: SOB, CHF EXACERBATION Discharge Diagnosis: chf exacerbation Activity: Resume your previous activity Non-emergency contact: Urgent Care Nurse Practitioner Call non-emergency contact if: you have any medication questions and your symptoms worsen Follow-up/Referrals: Ebony Alvarenga DO [Primary Care Provider] - Latrice Mcmanus PA-C [Physician Site Acquisition Manager] - 01/26/24 11:30 am Diet: Heart Healthy Addtl Attending Provider Instructions: follow up with grease maker, PCP Pending Studies at Discharge: No Stand-Alone Forms: [facility], Smoking Cessation Medications and DC Order Prescriptions: New magnesium oxide 400 mg (241.3 mg magnesium) Tablet 400 mg PO QPM Qty: 30 0RF bumetanide 2 mg tablet 2 mg PO BID Qty: 60 0RF Brilinta 60 mg tablet 60 mg PO BID Qty: 60 0RF Continued cholecalciferol (vitamin D3) 25 mcg (1,000 unit) capsule 1,000 unit PO QAM trazodone 50 mg tablet 50 mg PO HS PRN (Reason: insomnia) Qty: 90 1RF calcitriol [Rocaltrol] 0.25 mcg capsule 0.25 mcg PO 3XWK Qty: 12 1RF Rx Instructions: MONDAY/MONDAY/MONDAY/ IN THE AM Eliquis 2.5 mg tablet 2.5 mg PO BID Qty: 180 3RF magnesium oxide 400 mg magnesium capsule 400 mg PO QPM Qty: 90 0RF Hold Instructions: hypermagnesemia ranolazine 500 mg tablet extended release 12 hr 500 mg PO BID Qty: 180 3RF fluticasone propionate [Flonase Allergy Relief] 50 mcg/actuation spray,suspension 2 spray intranasal DAILY Qty: 16 3RF mirabegron 25 mg tablet extended release 24 hr 25 mg PO DAILY Qty: 30 2RF gabapentin 100 mg capsule 300 mg PO HS Qty: 90 1RF levothyroxine 75 mcg tablet 75 mcg PO QAM Qty: 90 1RF insulin asp prt-insulin aspart [Novolog Mix 70-30 U-100 Insuln] 100 unit/mL (70-30) solution 15 - 30 unit SUBCUT AMPM Qty: 30 5RF Rx Instructions: Per home sliding scale ondansetron HCl 8 mg tablet 8 mg PO Q8H PRN (Reason: nausea and vomiting) Qty: 30 0RF esomeprazole magnesium [Nexium] 40 mg capsule,delayed release(DR/EC) 40 mg PO BID Qty: 60 5RF sertraline 50 mg tablet 75 mg PO DAILY Qty: 135 1RF carvedilol 3.125 mg tablet 3.125 mg PO BID Qty: 180 3RF vitamin E 400 unit capsule 400 unit PO QAM senna 8.6 mg capsule 8.6 mg PO DAILY PRN (Reason: constipation) Qty: 10 0RF polyethylene glycol 3350 [Miralax] 17 gram/dose Powder 17 g PO TID Qty: 119 0RF potassium gluconate 595 mg (99 mg) tablet 595 mg PO DAILY PRN (Reason: With Bumex) Rx Instructions: Take 1 tablet if you take a Bumex dose acetaminophen [Tylenol Extra Strength] 500 mg Tablet 1,000 mg PO Q8H PRN (Reason: pain) Qty: 30 0RF Rx Instructions: OTC Discontinued bumetanide 1 mg tablet 1 mg PO BID Qty: 180 3RF Rx Instructions: Increase to 2 mg twice daily PRN. garlic 1,000 mg capsule 1,000 mg PO DAILY No Action (DME) insulin syringe-needle U-100 0.3 mL 31 gauge x 5/16" syringe See Rx Instructions .Route Qty: 100 3RF Rx Instructions: test three times daily (DME) FreeStyle [place] 14 Day Sensor Kit See Rx Instructions .Route Qty: 1 5RF Rx Instructions: Testing BS 4-5 times per day Brilinta 90 mg tablet 90 mg PO BID Qty: 180 3RF (DME) FreeStyle Rossy 14 Day [place] Misc See Rx Instructions .Route Qty: 6 1RF Rx Instructions: Testing BS 4-5 times per day Discharge Orders: Discharge Order (Routine); Ordered 01/22/24 Ordered By: Aurelia Joel Admission Data Admit Date/Time: 01/16/24 18:04 Attending Provider: Aurelia Joel Admit Provider: Kin Lopez Primary Care Provider: Ebony Alvarenga Other Providers: Kin Lopez; Davion Alvarez Coding Level of Care Code 27112 INP/OBS DISCH >30 MIN Diagnoses CHF exacerbation I50.9 Elevated troponin R77.8 SOB (shortness of breath) R06.02 GERD (gastroesophageal reflux disease) K21.9 Controlled type 2 diabetes mellitus with diabetic nephropathy, with long-term current use of insulin E11.21; Z79.4 Diabetes mellitus nursing home insulin use: with vermin exterminator use Diabetes mellitus complication status: with kidney complications Diabetes mellitus complication detail: with nephropathy PAF (paroxysmal atrial fibrillation) I48.0 S/P coronary artery stent placement Z95.5 Bilateral carotid artery stenosis I65.23 Acquired hypothyroidism E03.9 Hypothyroidism type: acquired
== END 2024-01-22 16:23 | disposition home or self-care (01) | DRG 291 ==
LOC: ED 13:31 → SUATTDRO 18:04 → EDINP 18:04 → 2N 18:43

== ENCOUNTER 2024-01-31 13:16 | Inpatient (IN) ==
--- NOTE | 2024-01-31 14:12 | Emergency Department Note ---
Impression & Plan Acute exacerbation of CHF (congestive heart failure), CKD (chronic kidney disease) stage 4, GFR 15-29 ml/min, Pleural effusion ED Provider Note NAME: ERIC ROLDAN AGE: 83 SEX: F : 1940 ARRIVES VIA: Ambulance INFORMANT: Patient, ED PROVIDER(S): Mack Jhaveri MD CHIEF COMPLAINT: Shortness of breath MEDICAL DECISION MAKING: Patient presents due to concern for worsening shortness of breath dyspnea on exertion. Patient did have an IV established blood work was obtained along with a chest x-ray troponin and BNP. Patient has a normal white count hemoglobin 10.5 chronic and stable. Kidney function with creatinine 2.81 which is slightly worse from before. Glucose of 225. Nonfasting not DKA with normal bicarb and anion gap. Patient does have an elevated troponin of 37 but has had chronic elevations in the past. BNP is 774. Patient's chest x-ray does show concern for right-sided worsening pleural effusion. Patient was ordered 3 of IV Bumex. Upon assessment the patient was complaining of left-sided abdominal pain which was present the patient had complained of nausea and vomiting. CT abdomen pelvis was ordered. This was negative for acute process in the abdomen but does show pleural effusions with ascites. I did speak with the on-call hospitalist service Yao Gudino PA-C and the patient was admitted by Dr. Husain. Discussion w/ other healthcare providers: Yao Johnson PA-C and Dr. Husain inpatient medicine service Prior /Outside records reviewed: I reviewed a heart failure visit from January 26, 2024. Patient was seen by Latrice Mcmanus. Patient with known history of cardiomyopathy aortic stenosis MR biventricular ICD TAVR CAD pulmonary hypertension heart failure with mildly reduced ejection fraction on Bumex but may increase to 3 mg twice daily as needed. Patient reportedly was up 3 pounds since the time that she was seen in clinic. Differential diagnosis: Reactive airway disease, pneumonia, pneumothorax, COPD, CHF, ACS, pulmonary embolism, musculoskeletal, GERD as well as other pathologies were considered. Diagnostics, as interpreted by me: ECG: V paced rhythm, rate of 77, wide QRS, left axis deviation no ST elevations, left lateral branch block pattern. No obvious sgarbossa criteria. Cardiac monitoring: An order was placed for continuous cardiac monitoring. The monitor shows a rate of 75 with paced rhythm. Patient was placed on pulse oximetry Medical decision rules: None Imaging studies: I informally interpreted the patient's chest x-ray with right-sided pleural effusion and pulmonary edema with formal report to follow. HPI: Patient presents due to concern for worsening shortness of breath. The patient states that this has been going on the last several days. The patient was seen by her heart failure specialist Latrice Mcmanus on Monday and was advised to take up to 3 mg Bumex twice daily. The patient is taking 2 and half milligrams twice daily. The patient had noticed some weight gain but was down about 2 pounds morning. Patient was to see her primary care physician yesterday Dr. Alvarenga was advised to present here yesterday but did not do so patient was started on Aldactone and consultation with the heart failure service. The patient does complain of worsening orthopnea and dyspnea on exertion occasional cough with associated phlegm. Non-smoker. The patient does have chronic right greater than left lower extremity swelling. Patient denies any chest pains. Patient is accompanied by family at bedside who also agreed the patient's symptoms have worsened. The patient has complained of some dry heaves and vomiting most recently in the ambulance did receive some Zofran in route but without significant improvement in symptoms. Patient denies any abdominal pain. PAST MEDICAL HISTORY: See Below PAST SURGICAL HISTORY: See Below SOCIAL HISTORY: See Below HOME MEDICATIONS: See Below ALLERGIES: See Below VITALS: See Below PHYSICAL EXAMINATION: GENERAL: NAD, non-toxic. Wearing glasses. EYE EXAM: Normal conjunctiva. PERRL, no anisocoria and EOM's grossly intact w/o pain. OROPHARYNX: Moist mucus membranes, grossly normal dentition. NECK: Trachea midline, no stridor. Supple, no nuchal rigidity, no adenopathy, non-tender. No signs of meningismus. FROM of the neck with good chin to chest and neck extension. JVD noted. LUNGS: Decreased breath sounds bilateral bases. Normal chest wall mechanics. HEART: NSR, no MRG. ABDOMEN: Abdomen soft, non-tender, left-sided abdominal pain, no rebound or guarding. BACK: No CVA TTP. SKIN: No rashes and no bruising. UPPER EXTREMITIES: Upper extremities are grossly normal. LOWER EXTREMITIES: Grossly normal, right greater than left lower extremity swelling with only pretibial edema. No calf pain or erythema. NEURO EXAM: A&O x3, cranial nerves II-XII grossly intact, normal speech, moves all 4 extremities. Past Med/Surg History Medical History Osteoarthritis Orthostasis Hyperlipidemia Acute kidney injury superimposed on chronic kidney disease Non-ST elevation WI (NSTEMI) Depression Nausea and vomiting after administration of anesthetic agent severe PONV s/p Left carotid surgery 09/27/21 at [facility] PAF (paroxysmal atrial fibrillation) History of CVA (cerebrovascular accident) Had RUE weakness and numbness after 09/17/21 breast surgery- CT scan of head negative; unable to do MRI due to ICD Per PCP records 10/22/21= "Newcomb her post op RUE sx related to possible small stroke/TIA" Breast cancer, right Right breast mastectomy 09/17/21 at [facility] Subclavian artery stenosis Rheumatoid arthritis No medications Followed with rheum in the past- no recent issues Chronic kidney disease STAGE IV-F/U DR SALINAS Diabetes mellitus, type 2 Glucose fluctuates SOB (shortness of breath) on exertion DVT (deep venous thrombosis) LOWER LEG 2019 Ischemic cardiomyopathy Insomnia Biventricular ICD (implantable cardioverter-defibrillator) in place (04/30/20) Med[employer] implanted 04/30/2020. Capped right ventricular pacing lead Last check 09/2021 Antiplatelet or antithrombotic long-term use Secondary hyperparathyroidism of renal origin Anemia due to chronic kidney disease Chronic obstructive pulmonary disease, unspecified Breathing stable CAD (coronary artery disease) F/U DR CUEVA S/p NATY x 1 to Cx in 2019; NATY to ostial LM 01/10/20 Aortic stenosis, severe S/p TAVR 10/2019 PAD (peripheral artery disease) S/p [employer] and stenting of right SFA, and [employer] of left SFA and common femoral artery Spondylosis Pulmonary hypertension RVSP 50-60mmHg on 12/2023 ECHO NSTEMI (non-ST elevated myocardial infarction) Most recent 12/2019 (mild per patient) Chronic combined systolic and diastolic CHF (congestive heart failure) EF 40% per 10/16/21 ECHO GERD (gastroesophageal reflux disease) Hypothyroidism Left bundle branch block Bilateral carotid artery stenosis H/o bilateral CEAs in 2016 Per 07/2021 vascular note- carotid ultrasound from office visit showed patent right CEA with velocities suggesting 50-59% stenosis restenosis Patent left CEA with velocities suggesting 99% restenosis - had re-do of left CEA 09/27/21 Surgical History S/P AV hiren ablation (06/30/22) H/O heart artery stent H/O colonoscopy History of left-sided carotid endarterectomy (09/27/21) redo L CEA, Dr Bateman Status post partial mastectomy of right breast (09/17/21) 09/17/21 - Done under [facility] with LMA #4. Atraumatic LMA insertion. Magnet placed secondary to pacemaker. Right Breast Partial Mastectomy with [place] [employer] Localization, Right Axillary [place] Lymph Node Biopsy(Right) - Hua Acosta, History of cardiac cath TOTAL 6? STENTS- 2018 and 2019 S/P coronary artery stent placement (10/2018) NATY prox mid LAD S/P coronary artery stent placement (10/2017) NATY to mid LAD S/P carotid endarterectomy B/l 2016 S/P thoracentesis (03/2020) b/l d/t CHF S/P angioplasty (02/03/21) [employer] L SFA 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) History of oophorectomy History of hysterectomy History of cholecystectomy H/O: section History of cataract surgery right and left History of appendectomy Family History Daughter Coronary heart disease Cardiac stent Diabetes Mother , 83yo Diabetes Family history of hypercholesterolemia Myocardial infarction Hypertension Stroke Brother Colorectal cancer 1/2 brother Father , Accident in war Brother Diabetes 1/2 brother;Complications of DM Family/Other Myocardial infarction 1/2 sister Son Coronary heart disease Cardiac stent Hypertension Other Pacemaker Denies family history of Ovarian cancer Prostate cancer Breast cancer Social History Smoking Status: Never smoker Second Hand Exposure: No; Do You Dip or Chew Tobacco: No; Hx Alcohol Use: No Hx Substance Use: No Preferred Language: Nauruan Communication Ability: Effective Visual Impairment: No Limitations Hearing Ability: Hard of Hearing Flap Maker Required: No Beliefs That Will Affect Care: None marital status: / marital status details: passed 2000 Current Living Situation: Alone current occupational status: retired 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 How many Children do You have: 2 Other Information That Helps Us Care for You: No Feels Safe at Home: Yes Safety Concerns: Feels Safe At This Time Diet: regular caffeine: Yes (1 cup/day) during the past year weight has: remained stable Dental Care, Regularly: No Physical Activity Frequency: Daily Seatbelt Use: always Assistive Devices: Cane and Walker Allergies Allergies Allergy/AdvReac Type Severity Reaction Status Date / Time adhesive Allergy Intermediate REDNESS Verified 01/30/24 09:26 AND IRRITATION FROM PAIN PATCH, TAPE latex Allergy Intermediate ALLERGIC Verified 01/30/24 09:26 TO LATEX TAPE/RASH/ITCHING morphine Allergy Intermediate swelling Verified 01/30/24 09:26 nausea vomiting olmesartan Allergy Unknown UNKNOWN Verified 01/30/24 09:26 benzonatate AdvReac Intermediate confusion Verified 01/30/24 09:26 [From Tessalon Perles] dulaglutide [From Trulicity] AdvReac Intermediate AFFECTS Verified 01/30/24 09:26 MUSCLES exenatide [From Byetta] AdvReac Intermediate Diarrhea Verified 01/30/24 09:26 ezetimibe AdvReac Intermediate MUSCLE Verified 01/30/24 09:26 ACHES glipizide AdvReac Intermediate Diarrhea Verified 01/30/24 09:26 glyburide AdvReac Intermediate Diarrhea Verified 01/30/24 09:26 lisinopril AdvReac Intermediate LIGHTHEADED Verified 01/30/24 09:26 AND DIZZY losartan AdvReac Intermediate dizziness Verified 01/30/24 09:26 metformin AdvReac Intermediate Diarrhea Verified 01/30/24 09:26 pioglitazone AdvReac Intermediate DIARRHEA Verified 01/30/24 09:26 NAUSEA sitagliptin [From Januvia] AdvReac Intermediate Diarrhea Verified 01/30/24 09:26 Ftaxyji-DUI-IlO Reductase AdvReac Intermediate myalgias Verified 01/30/24 09:26 Inhibitor and [Ymavvbv-Uuh-Orm Reductase weakness Inhibitor] aspirin AdvReac Mild GI SYMPTOMS Verified 01/30/24 09:26 Home Meds Home Medications Medication Instructions Recorded Confirmed vitamin E 268 mg (400 unit) capsule 400 unit PO QAM 03/29/20 01/31/24 cholecalciferol (vitamin D3) 25 1,000 unit PO QAM 05/17/21 01/31/24 mcg (1,000 unit) capsule potassium gluconate 595 mg (99 mg) 595 mg PO DAILY PRN With Bumex 08/25/23 01/31/24 tablet gabapentin 300 mg capsule 300 mg PO TID 01/31/24 01/31/24 Previous Rx's Medication Instructions Recorded trazodone 50 mg tablet 50 mg PO HS PRN insomnia #90 tabs 06/23/22 insulin aspar prt-insulin aspart 15 - 30 unit (0.15 - 0.3 mL) 11/28/22 100 unit/mL (70-30) subcutaneous subcut AMPM #30 mL soln (Novolog Mix 70-30 U-100 Insuln) polyethylene glycol 3350 17 17 g PO TID #119 grams 12/23/22 gram/dose oral powder (Miralax) sennosides 8.6 mg capsule (senna) 8.6 mg PO DAILY PRN constipation 12/23/22 #10 caps flash glucose scanning reader #6 ea 07/24/23 (FreeStyle Rossy 14 Day [place]) levothyroxine 75 mcg tablet 75 mcg PO QAM #90 tabs 10/27/23 apixaban 2.5 mg tablet (Eliquis) 2.5 mg PO BID #180 tabs 10/30/23 calcitriol 0.25 mcg capsule 0.25 mcg PO 3XWK #12 caps 10/30/23 (Rocaltrol) ranolazine 500 mg tablet,extended 500 mg PO BID #180 tabs 11/14/23 release,12 hr flash glucose sensor (MedversantStyle #1 ea 11/24/23 Rossy 14 Day Sensor kit) carvedilol 3.125 mg tablet 3.125 mg PO BID #180 tabs 12/28/23 ondansetron HCl 8 mg tablet 8 mg PO Q8H PRN nausea and 01/01/24 vomiting #30 tabs sertraline 50 mg tablet 75 mg (1.5 x 50 mg) PO DAILY #135 01/01/24 tabs magnesium oxide 400 mg (241.3 mg 400 mg PO QPM #30 tabs 01/22/24 magnesium) tablet insulin syringe-needle U-100 0.3 #100 ea 01/23/24 mL 31 gauge x 5/16" ticagrelor 60 mg tablet (Brilinta) 60 mg PO BID #90 tabs 01/26/24 bumetanide 2 mg tablet 4 mg (2 x 2 mg) PO BID #200 tabs 01/30/24 pantoprazole 40 mg tablet,delayed 40 mg PO BID #180 tabs 01/30/24 release (Protonix) spironolactone 50 mg tablet 50 mg PO DAILY #30 tabs 01/30/24 Results & Data (ED) Vital Signs Vital Signs - 24 hr 01/31/24 13:59 01/31/24 13:59 01/31/24 13:59 Temperature 36.5 C Temperature Source Oral Pulse Rate 70 74 Pulse Rate from SpO2 Sensor Respiratory Rate 22 Respiratory Effort / Characteristics Non-Labored Spontaneous Respiratory Depth Normal Respiratory Pattern Regular Blood Pressure 169/72 H Blood Pressure Mean 104 Pulse Oximetry 95 Oxygen Delivery Method Room Air Room Air Sepsis Recent Fever Within 48 Hours No Sepsis New/Unexplained Change in Mental Status No Sepsis Action Taken by Nursing No Action Required 01/31/24 13:59 01/31/24 14:00 01/31/24 14:05 Temperature Temperature Source Pulse Rate 73 72 Pulse Rate from SpO2 Sensor 73 72 Respiratory Rate 18 18 Respiratory Effort / Characteristics Respiratory Depth Respiratory Pattern Blood Pressure 169/72 H Blood Pressure Mean 114 Pulse Oximetry 96 94 Oxygen Delivery Method Sepsis Recent Fever Within 48 Hours Sepsis New/Unexplained Change in Mental Status Sepsis Action Taken by Nursing 01/31/24 14:05 01/31/24 14:30 01/31/24 14:30 Temperature Temperature Source Pulse Rate 70 74 Pulse Rate from SpO2 Sensor 70 74 Respiratory Rate 20 21 Respiratory Effort / Characteristics Respiratory Depth Respiratory Pattern Blood Pressure 162/87 H Blood Pressure Mean 108 Pulse Oximetry 93 93 Oxygen Delivery Method Room Air Sepsis Recent Fever Within 48 Hours Sepsis New/Unexplained Change in Mental Status Sepsis Action Taken by Nursing 01/31/24 14:31 01/31/24 15:00 01/31/24 15:00 Temperature Temperature Source Pulse Rate 74 Pulse Rate from SpO2 Sensor 73 Respiratory Rate 21 Respiratory Effort / Characteristics Respiratory Depth Respiratory Pattern Blood Pressure 164/87 H Blood Pressure Mean 130 Pulse Oximetry 93 94 Oxygen Delivery Method Room Air Room Air Sepsis Recent Fever Within 48 Hours Sepsis New/Unexplained Change in Mental Status Sepsis Action Taken by Nursing 01/31/24 15:30 01/31/24 15:30 01/31/24 16:00 Temperature Temperature Source Pulse Rate 71 70 Pulse Rate from SpO2 Sensor 70 70 Respiratory Rate 16 16 Respiratory Effort / Characteristics Respiratory Depth Respiratory Pattern Blood Pressure 143/108 H Blood Pressure Mean 116 Pulse Oximetry 95 95 Oxygen Delivery Method Room Air Room Air Sepsis Recent Fever Within 48 Hours Sepsis New/Unexplained Change in Mental Status Sepsis Action Taken by Nursing 01/31/24 16:00 Temperature Temperature Source Pulse Rate Pulse Rate from SpO2 Sensor Respiratory Rate Respiratory Effort / Characteristics Respiratory Depth Respiratory Pattern Blood Pressure 164/87 H Blood Pressure Mean 121 Pulse Oximetry Oxygen Delivery Method Sepsis Recent Fever Within 48 Hours Sepsis New/Unexplained Change in Mental Status Sepsis Action Taken by Prison Medications Current Medication List: was personally reviewed by me Laboratory Data Attestation: I reviewed the patient's lab results. 01/31/24 13:44 01/31/24 13:44 Lab Results 01/31/24 Range/Units 13:44 WBC 9.18 (4.8-10.8) K/ul RBC 3.88 L (4.20-5.40) M/uL Hgb 10.5 L (12.0-16.0) g/dl Hct 34.3 L (37.0-47.0) % MCV 88.4 (80.0-100.0) fL MCH 27.1 (25.0-34.0) pg MCHC 30.6 L (32.0-36.0) g/dL RDW Std Deviation 51.5 H (36.4-46.3) fL RDW Coeff of Manuela 15.7 H (11.5-14.5) % Plt Count 351 (130-400) K/uL MPV 11.1 (9.4-12.4) fL Immature Gran % (Auto) 0.3 % Neut % (Auto) 59.8 % Lymph % (Auto) 25.7 % Carson % (Auto) 11.4 % Eos % (Auto) 2.3 % Baso % (Auto) 0.5 % Neut # (Auto) 5.48 (1.40-6.50) K/uL Lymph # (Auto) 2.36 (1.20-3.40) K/uL Carson # (Auto) 1.05 H (0.11-0.59) K/uL Eos # (Auto) 0.21 (0.00-0.50) K/uL Baso # (Auto) 0.05 (0.00-0.20) K/uL Immature Gran # (Auto) 0.03 (0.01-0.20) K/uL PT 12.4 H (9.0-12.0) Seconds INR 1.1 (0.9-1.1) APTT 30 (21-31) Seconds PTT Ratio 1.1 Sodium 133 L (136-145) mmol/L Potassium 5.0 (3.5-5.1) mmol/L Chloride 93 L (98-107) mmol/L Carbon Dioxide 29 (21-32) mmol/L Anion Gap 11 (3-11) BUN 55 H (6-23) mg/dl Creatinine 2.81 H (0.6-1.2) mg/dl Est Cr Clr Drug Dosing 16.2 ml/min Est GFR ( Amer) 17.2 ml/min Est GFR (Non-Af Amer) 14.8 ml/min BUN/Creatinine Ratio 19.6 (10-20) Glucose 225 H (70-99(Fasting)) mg/dl Calcium 9.6 (8.6-10.3) mg/dl Magnesium 2.4 (1.7-2.4) mg/dl Total Bilirubin 0.6 (0.2-1.0) mg/dl AST 43 H (13-39) U/L ALT 25 (7-52) U/L Alkaline Phosphatase 187 H (34-104) U/L Troponin I High Sens 37.0 H (0-14) pg/ml B-Natriuretic Peptide 774 H (0-100) pg/ml Total Protein 7.3 (6.0-8.3) gm/dl Albumin 3.9 (3.4-5.0) gm/dl Globulin 3.4 (2.5-4.0) gm/dl Albumin/Globulin Ratio 1.1 (0.9-2) Administered Medications Insulin Aspart (Insulin Aspart Per Unit Charge) 0 units SC Q6 ANDREW Stop: 03/01/24 17:59 Last Admin: 01/31/24 17:57 Dose: 1 units Documented By: ANALI Co-signed By: ES Discontinued Medications Bumetanide 3 mg/ Syringe 12 mls @ 4 mls/min IV ONE ONE Stop: 01/31/24 15:20 Last Admin: 01/31/24 16:08 Dose: 4 mls/min Documented By: LISBETH Pantoprazole Sodium 40 mg/ (Syringe) 10 mls @ 5 mls/min IV NOW ONE Stop: 01/31/24 15:44 Last Admin: 01/31/24 17:59 Dose: 5 mls/min Documented By: ANALI Sucralfate (Sucralfate 1 Gm/10 Ml Udc) 1 gm PO ONE ONE Stop: 01/31/24 16:46 Last Admin: 01/31/24 17:57 Dose: 1 gm Documented By: ANALI Imaging Data Radiologist's Impression: Chest X-Ray 01/31/24 14:30 SINGLE VIEW CHEST CLINICAL HISTORY: Dyspnea FINDINGS: An AP, portable, upright chest radiograph is compared to study dated 01/16/2024. A multilead cardiac AICD is unchanged in position and partially obscures the left lower chest. There is evidence of previous cardiac valve surgery. The heart is enlarged noting atherosclerotic calcification of the thoracic aorta. There is pulmonary vascular congestion with mild interstitial edema. There are layering pleural effusions with dependent consolidation. No pneumothorax is seen. The skeletal structures are osteopenic. The bony thorax is grossly intact. IMPRESSION: 1. Cardiomegaly and AICD with evidence of congestive failure. 2. Layering pleural effusions with dependent consolidation. ACT 112: Negative or not required by law. Electronically signed by: Marcus East M.D. 01/31/2024 3:45 PM Chest X-Ray 01/31/24 14:30 SINGLE VIEW CHEST CLINICAL HISTORY: Dyspnea FINDINGS: An AP, portable, upright chest radiograph is compared to study dated 01/16/2024. A multilead cardiac AICD is unchanged in position and partially obscures the left lower chest. There is evidence of previous cardiac valve surgery. The heart is enlarged noting atherosclerotic calcification of the thoracic aorta. There is pulmonary vascular congestion with mild interstitial edema. There are layering pleural effusions with dependent consolidation. No pneumothorax is seen. The skeletal structures are osteopenic. The bony thorax is grossly intact. IMPRESSION: 1. Cardiomegaly and AICD with evidence of congestive failure. 2. Layering pleural effusions with dependent consolidation. ACT 112: Negative or not required by law. Electronically signed by: Marcus East M.D. 01/31/2024 3:45 PM Discharge Plan Visit Data Chief Complaint: Shortness of Breath/Dyspnea Stated Complaint: SOB, FLUID RETENTION ED Provider: Mack Jhaveri Discharge Problem: Acute exacerbation of CHF (congestive heart failure), CKD (chronic kidney disease) stage 4, GFR 15-29 ml/min, Pleural effusion Patient Disposition: Admitted As Inpatient Discharge Instructions Interventions: ED Discharge Assessment Last Done: 01/31/24 18:41 Discharge Problem: Acute exacerbation of CHF (congestive heart failure) Qualifiers: Heart failure type: unspecified Qualified Code(s): I50.9 - Heart failure, unspecified
[2024-01-31 14:57] LABS: Basophils # (auto) 0.05 K/uL (0.00-0.20); Basophils % (auto) 0.5 %; Eosinophils # (auto) 0.21 K/uL (0.00-0.50); Eosinophils % (auto) 2.3 %; Hematocrit (blood only) 34.3 % (37.0-47.0); Hemoglobin 10.5 g/dl (12.0-16.0); Immature Granulocytes # (auto) 0.03 K/uL (0.01-0.20); Immature Granulocytes % (auto) 0.3 %; Lymphocytes # (auto) 2.36 K/uL (1.20-3.40); Lymphocytes % (auto) 25.7 %; Mean Corpuscular Hemoglobin 27.1 pg (25.0-34.0); Mean Corpuscular Hgb Conc 30.6 g/dL (32.0-36.0); Mean Corpuscular Volume 88.4 fL (80.0-100.0); Mean Platelet Volume 11.1 fL (9.4-12.4); Monocytes # (auto) 1.05 K/uL (0.11-0.59); Monocytes % (auto) 11.4 %; Neutrophils # (auto) 5.48 K/uL (1.40-6.50); Neutrophils % (auto) 59.8 %; Platelet Count 351 K/uL (130-400); RDW Coefficient of Variation 15.7 % (11.5-14.5); RDW Standard Deviation 51.5 fL (36.4-46.3); Red Blood Count 3.88 M/uL (4.20-5.40); White Blood Count 9.18 K/ul (4.8-10.8)
[2024-01-31 15:10] LABS: Albumin Globulin Ratio 1.1 (0.9-2); Albumin Level 3.9 gm/dl (3.4-5.0); BUN Creatinine Ratio 19.6 (10-20); Bilirubin,Total 0.6 mg/dl (0.2-1.0); Calcium 9.6 mg/dl (8.6-10.3); Creatinine Clr Calc Pharmacy 16.2 ml/min; Est GFR (African American) 17.2 ml/min; Est GFR (Non-African American) 14.8 ml/min; Globulin 3.4 gm/dl (2.5-4.0); Magnesium 2.4 mg/dl (1.7-2.4); Total Protein 7.3 gm/dl (6.0-8.3)
[2024-01-31 15:29] LABS: INR 1.1 (0.9-1.1); Partial Thromboplastin Ratio 1.1; Partial Thromboplastin Time 30 Seconds (21-31); Prothrombin Time 12.4 Seconds (9.0-12.0)
--- NOTE | 2024-01-31 15:46 | XRay Report ---
SINGLE VIEW CHEST CLINICAL HISTORY: Dyspnea FINDINGS: An AP, portable, upright chest radiograph is compared to study dated 01/16/2024. A multilead cardiac AICD is unchanged in position and partially obscures the left lower chest. There is evidence of previous cardiac valve surgery. The heart is enlarged noting atherosclerotic calcification of the thoracic aorta. There is pulmonary vascular congestion with mild interstitial edema. There are layeri ng pleural effusions with dependent consolidation. No pneumothorax is seen. The skeletal structures a re osteopenic. The bony thorax is grossly intact. IMPRESSION: 1. Cardiomegaly and AICD with evidence of congestive failure. 2. Layering pleural effusions with dependent consolidation. ACT 112: Negative or not required by law. Electronically signed by: Marcus East M.D. 01/31/2024 3:45 PM
--- NOTE | 2024-01-31 16:05 | History & Physical Report ---
Date of Service January 31, 2024 Assessment & Plan (1) Acute exacerbation of CHF (congestive heart failure): Plan: -Admit to med/tele on pulse oximetry -Currently hemodynamically stable and stable on RA -Patient is well-known to our service as she has required multiple admissions recently for recurrent CHF exacerbations -She has been compliant with medications and her low-sodium diet -CXR today shows progression of her pulmonary edema and BL pleural effusions, BNP today is 774, which is higher than previous admissions -Patient has had little urinary output over the past 24 hours, despite increased doses of PO Bumex and start Spironolactone yesterday -Review of her last admission shows good response to initial IV diuresis, however, due to an episode of lightheadedness with standing she was switched back to PO diuretics prior to discharge -She likely needed additional IV diuresis with close monitoring last admission -S/P 3 mg IV bumex in the ED -Will continue with 2mg IV Bumex BID starting tomorrow and will continue her Spironolactone -Monitor daily weight, I's & O's closely -Monitor renal function and electrolytes daily -Home Eliquis for DVT PPX -HH/DMII diet with 2 gm sodium restriction and 1800 mL fluid restriction -AM CBC, BMP, mag, PT/INR (2) Abdominal pain: Plan: -Patient has multiple areas of abdominal discomfort -She has been having epigastric discomfort consistent with her known reflux and previous stomach ulcer for the past 1-2 months -Has also been experiencing mild-moderate LLQ pain with palpation -Has been having normal bowel movements -CT of the abd/pelvis wo IV con was negative for acute findings -Will continue patient's BID pantoprazole and start QID carafate -Monitor for improvement (3) Nausea: Plan: -Likely related to her reflux/possible ulcer -Could have a component of Gastroparesis as well -Continue pantoprazole and monitor for improvement with starting Carafate -PRN Zofran (4) Elevated troponin: Plan: -Initial high sen trop elevated at 37 --> 39 on 2 hour repeat -This is consistent with her previous admissions -Patient denies chest pain, no acute ECG changes -Likely related to demand -Continue to monitor on tele (5) DM II (diabetes mellitus, type II), controlled: Plan: -Monitor BSG ACHS, goal is 110-160 -Start 5 units lantus BID and CF 50 ACHS -Continue HH/DMII diet -Adjust regimen as needed (6) Hypothyroidism: Plan: -Continue levothyroxine (7) Chronic obstructive pulmonary disease, unspecified: Plan: -Stable on RA -Continue home breathing treatments -Incentive spirometry (8) Ischemic cardiomyopathy: Plan: -See CHF exacerbation (9) PAF (paroxysmal atrial fibrillation): Plan: -Currently in paced rhythm -Continue Carvedilol and Eliquis Plan The patient was discussed with Dr. Husain at the time of the admission History of Present Illness Chief Complaint: CHLOE/GOMEZ, epigastric pain, nausea/vomiting Primary Care Provider: Ebony Alvarenga DO Ban is an 83 yo female with PMH of NSTEMI, CVA, paroxysmal afib (on Eliquis), CKD, HFrEF (LVEF of 40-45%), biventricular ICD in place, aortic stenosis s/p TAVR, PAD s/p stenting, Hypothyroidism, Interstitial Lung Dx, Pulmonary HTN, COPD, insulin dependent DMII, and bilateral carotid artery stenosis who presented to the [facility] ED on 01/31/24 with progressive SOB/GOMEZ, epigastric pain. Patient has had multiple recent admissions for CHF exacerbations. Was seen at her PCP's office yesterday and recommended to be seen in the ED but wanted to initially wait. Symptoms have progressed which is why she presented today. She remained stable in the ED. Labs were significant for a cr of 2.81 (baseline is near 2.0), corrected sodium of 135, initial high sen trop of 37. Chest xray was read as "1. Cardiomegaly and AICD with evidence of congestive failure. 2. Layering pleural effusions with dependent consolidation.". ECG showed a ventricular paced rhythm without acute changes. Prior to admission the patient was given 3 mg IV bumex and 40 mg IV pantoprazole. At the time of the exam the patient was sitting in bed in no acute distress with her Daughter and Grandson bedside, history was obtained from all. Since discharge she has had ongoing issues with progressive SOB/GOMEZ, abdominal distention, and ongoing epigastric discomfort with nausea and non-bloody emesis. She confirms that the abdominal pain was the same as the last time we admitted her at the beginning of this month. She followed up with both the [facility] and her PCP yesterday. Her PCP increased her PO bumex to 4 mg BID and started her on 50 mg Spironolactone daily. She started these changes yesterday and states she has urinated very little over the past 24 hours. She is having significant orthopnea and GOMEZ which is limiting her quality of life. Her daughter states that the patient's abdomen has been more distended over the past week then ever before. When asked about other abdominal pain the patient states that she has been experiencing mild-moderate LLQ abdominal pain with palpation of the area. The area does not bother her at rest, it has not been associated with bowel movements. She has had 2 normal bowel movements today. She is a DNR/DNI and her daughter is her POA. Please refer to Dr. Husain's attestation for any changes to the treatment plan Allergies Allergy/AdvReac Type Severity Reaction Status Date / Time adhesive Allergy Intermediate REDNESS Verified 01/30/24 09:26 AND IRRITATION FROM PAIN PATCH, TAPE latex Allergy Intermediate ALLERGIC Verified 01/30/24 09:26 TO LATEX TAPE/RASH/ITCHING morphine Allergy Intermediate swelling Verified 01/30/24 09:26 nausea vomiting olmesartan Allergy Unknown UNKNOWN Verified 01/30/24 09:26 benzonatate AdvReac Intermediate confusion Verified 01/30/24 09:26 [From Tessalon Perles] dulaglutide [From Trulicity] AdvReac Intermediate AFFECTS Verified 01/30/24 09:26 MUSCLES exenatide [From Byetta] AdvReac Intermediate Diarrhea Verified 01/30/24 09:26 ezetimibe AdvReac Intermediate MUSCLE Verified 01/30/24 09:26 ACHES glipizide AdvReac Intermediate Diarrhea Verified 01/30/24 09:26 glyburide AdvReac Intermediate Diarrhea Verified 01/30/24 09:26 lisinopril AdvReac Intermediate LIGHTHEADED Verified 01/30/24 09:26 AND DIZZY losartan AdvReac Intermediate dizziness Verified 01/30/24 09:26 metformin AdvReac Intermediate Diarrhea Verified 01/30/24 09:26 pioglitazone AdvReac Intermediate DIARRHEA Verified 01/30/24 09:26 NAUSEA sitagliptin [From Januvia] AdvReac Intermediate Diarrhea Verified 01/30/24 09:26 [id number] Reductase AdvReac Intermediate myalgias Verified 01/30/24 09:26 Inhibitor and [Gderoor-Ncp-Ene Reductase weakness Inhibitor] aspirin AdvReac Mild GI SYMPTOMS Verified 01/30/24 09:26 Home Medications Medication Instructions Recorded Confirmed Type vitamin E 268 mg (400 unit) capsule 400 unit PO QAM 03/29/20 01/31/24 History cholecalciferol (vitamin D3) 25 1,000 unit PO QAM 05/17/21 01/31/24 History mcg (1,000 unit) capsule trazodone 50 mg tablet 50 mg PO HS PRN insomnia #90 tabs 06/23/22 01/31/24 Rx insulin aspar prt-insulin aspart 15 - 30 unit (0.15 - 0.3 mL) 11/28/22 01/31/24 Rx 100 unit/mL (70-30) subcutaneous subcut AMPM #30 mL soln (Novolog Mix 70-30 U-100 Insuln) polyethylene glycol 3350 17 17 g PO TID #119 grams 12/23/22 01/31/24 Rx gram/dose oral powder (Miralax) sennosides 8.6 mg capsule (senna) 8.6 mg PO DAILY PRN constipation 12/23/22 01/31/24 Rx #10 caps flash glucose scanning reader #6 ea 07/24/23 01/31/24 Rx (FreeStyle Rossy 14 Day Dorsey) potassium gluconate 595 mg (99 mg) 595 mg PO DAILY PRN With Bumex 08/25/23 01/31/24 History tablet levothyroxine 75 mcg tablet 75 mcg PO QAM #90 tabs 10/27/23 01/31/24 Rx apixaban 2.5 mg tablet (Eliquis) 2.5 mg PO BID #180 tabs 10/30/23 01/31/24 Rx calcitriol 0.25 mcg capsule 0.25 mcg PO 3XWK #12 caps 10/30/23 01/31/24 Rx (Rocaltrol) ranolazine 500 mg tablet,extended 500 mg PO BID #180 tabs 11/14/23 01/31/24 Rx release,12 hr flash glucose sensor (FreeStyle #1 ea 11/24/23 01/31/24 Rx Rossy 14 Day Sensor kit) carvedilol 3.125 mg tablet 3.125 mg PO BID #180 tabs 12/28/23 01/31/24 Rx ondansetron HCl 8 mg tablet 8 mg PO Q8H PRN nausea and 01/01/24 01/31/24 Rx vomiting #30 tabs sertraline 50 mg tablet 75 mg (1.5 x 50 mg) PO DAILY #135 01/01/24 01/31/24 Rx tabs magnesium oxide 400 mg (241.3 mg 400 mg PO QPM #30 tabs 01/22/24 01/31/24 Rx magnesium) tablet insulin syringe-needle U-100 0.3 #100 ea 01/23/24 01/31/24 Rx mL 31 gauge x 02/28" ticagrelor 60 mg tablet (Brilinta) 60 mg PO BID #90 tabs 01/26/24 01/31/24 Rx bumetanide 2 mg tablet 4 mg (2 x 2 mg) PO BID #200 tabs 01/30/24 01/31/24 Rx pantoprazole 40 mg tablet,delayed 40 mg PO BID #180 tabs 01/30/24 01/31/24 Rx release (Protonix) spironolactone 50 mg tablet 50 mg PO DAILY #30 tabs 01/30/24 01/31/24 Rx gabapentin 300 mg capsule 300 mg PO TID 01/31/24 01/31/24 History Past Med/Surg History Medical History Osteoarthritis Orthostasis Hyperlipidemia Acute kidney injury superimposed on chronic kidney disease Non-ST elevation NC (NSTEMI) Depression Nausea and vomiting after administration of anesthetic agent severe PONV s/p Left carotid surgery 09/27/21 at [facility] PAF (paroxysmal atrial fibrillation) History of CVA (cerebrovascular accident) Had RUE weakness and numbness after 09/17/21 breast surgery- CT scan of head negative; unable to do MRI due to ICD Per PCP records 10/22/21= "[place] her post op RUE sx related to possible small stroke/TIA" Breast cancer, right Right breast mastectomy 09/17/21 at [facility] Subclavian artery stenosis Rheumatoid arthritis No medications Followed with rheum in the past- no recent issues Chronic kidney disease STAGE IV-F/U DR SALINAS Diabetes mellitus, type 2 Glucose fluctuates SOB (shortness of breath) on exertion DVT (deep venous thrombosis) LOWER LEG 2020 Ischemic cardiomyopathy Insomnia Biventricular ICD (implantable cardioverter-defibrillator) in place (04/30/20) Medtronic implanted 04/30/2020. Capped right ventricular pacing lead Last check 09/2021 Antiplatelet or antithrombotic long-term use Secondary hyperparathyroidism of renal origin Anemia due to chronic kidney disease Chronic obstructive pulmonary disease, unspecified Breathing stable CAD (coronary artery disease) F/U DR CUEVA S/p NATY x 1 to Cx in 2018; NATY to ostial LM 01/10/20 Aortic stenosis, severe S/p TAVR 10/2019 PAD (peripheral artery disease) S/p [employer] GENER[employer]SEMBLER and stenting of right SFA, and [employer] GENERATOR ASSEMBLER of left SFA and common femoral artery Spondylosis Pulmonary hypertension RVSP 50-60mmHg on 12/2023 ECHO NSTEMI (non-ST elevated myocardial infarction) Most recent 12/2019 (mild per patient) Chronic combined systolic and diastolic CHF (congestive heart failure) EF 40% per 10/16/21 ECHO GERD (gastroesophageal reflux disease) Hypothyroidism Left bundle branch block Bilateral carotid artery stenosis H/o bilateral CEAs in 2016 Per 07/2021 vascular note- carotid ultrasound from office visit showed patent right CEA with velocities suggesting 50-59% stenosis restenosis Patent left CEA with velocities suggesting 99% restenosis - had re-do of left CEA 09/27/21 Surgical History S/P AV hiren ablation (06/30/22) H/O heart artery stent H/O colonoscopy History of left-sided carotid endarterectomy (09/27/21) redo L CEA, Dr Bateman Status post partial mastectomy of right breast (09/17/21) 09/17/21 - Done under [place] with LMA #4. Atraumatic LMA insertion. Magnet placed secondary to pacemaker. Right Breast Partial Mastectomy with [place] Design Engineer [employer] Localization, Right Axillary [place] Lymph Node Biopsy(Right) - Hua Acosta, DO History of cardiac cath TOTAL 6? STENTS- 2018 and 2019 S/P coronary artery stent placement (10/2018) NATY prox mid LAD S/P coronary artery stent placement (10/2017) NATY to mid LAD S/P carotid endarterectomy B/l 2016 S/P thoracentesis (03/2020) b/l d/t CHF S/P angioplasty (02/03/21) [employer] GENERATOR ASSEMBLER L SFA 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) History of oophorectomy History of hysterectomy History of cholecystectomy H/O: section History of cataract surgery right and left History of appendectomy Family History Daughter Coronary heart disease Cardiac stent Diabetes Mother , 83yo Diabetes Family history of hypercholesterolemia Myocardial infarction Hypertension Stroke Brother Colorectal cancer 1/2 brother Father , Accident in war Brother Diabetes 1/2 brother;Complications of DM Family/Other Myocardial infarction 1/2 sister Son Coronary heart disease Cardiac stent Hypertension Other Pacemaker Denies family history of Ovarian cancer Prostate cancer Breast cancer Social History Smoking Status: Never smoker Second Hand Exposure: No; Do You Dip or Chew Tobacco: No; Hx Alcohol Use: No Hx Substance Use: No Preferred Language: Latvian Communication Ability: Effective Visual Impairment: No Limitations Hearing Ability: Hard of Hearing Vacuum Cleaner Mechanic Required: No Beliefs That Will Affect Care: None marital status: / marital status details: passed 2000 Current Living Situation: Alone current occupational status: retired 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 How many Children do You have: 2 Other Information That Helps Us Care for You: No Feels Safe at Home: Yes Safety Concerns: Feels Safe At This Time Diet: regular caffeine: Yes (1 cup/day) during the past year weight has: remained stable Dental Care, Regularly: No Physical Activity Frequency: Daily Seatbelt Use: always Assistive Devices: Cane and Walker Physical Exam Physical Exam: Physical Exam: General: In no acute distress, stated age, chronically ill appearing but non- toxic HEENT: Normocephalic, atraumatic, no scleral icterus, pupils around round, symmetrical, and reactive to light, moist mucus membranes, +JVD, trachea midline, no thyromegaly Chest/Pulm: No respiratory distress, symmetrical chest expansion, decreased breath sounds in the BL lower lung humphries with crackles in the BL mid lung humphries, upper lung humphries are CTA Cardiac: RRR, 3/6 systolic murmur noted Abdomen: Moderate abdominal distention, 3 small, circular bruises in various stages of healing are noted in the LLQ (patient confirms this was the site of her previous chemical DVT PPX injections last admission), normoactive bowel sounds, soft, tender to palpation in the epigastric region and the LLQ with, no rebound tenderness noted Musculoskeletal: Symmetrical and without signs of acute trauma, upper and lower extremities with full ROM, no atrophy, spasticity, or flaccidity Extremities: Radial, dorsalis pedis, and posterior tibial pulses are intact and symmetrical, 1-2+ pitting edema in the BL LE's with right > left (is patient's baseline) Skin: Warm, dry, no rashes , lesions, or scars noted Neuro: Alert and oriented to person, place, month, year, and president, no focal defects, no tremors noted Psych: No acute distress, calm and cooperative during the exam Results & Data Results & Data Vital Signs (Past 12 Hours) Vital Signs Temp Pulse Resp BP Pulse Ox O2 Del Method 01/31/24 14:31 93 Room Air 01/31/24 13:59 74 01/31/24 13:59 Room Air 01/31/24 13:59 36.5 C 70 22 169/72 H 95 Room Air Laboratory Results Abnormal lab results 01/31/24 Range/Units 13:44 RBC 3.88 L (4.20-5.40) M/uL Hgb 10.5 L (12.0-16.0) g/dl Hct 34.3 L (37.0-47.0) % MCHC 30.6 L (32.0-36.0) g/dL RDW Std Deviation 51.5 H (36.4-46.3) fL RDW Coeff of Manuela 15.7 H (11.5-14.5) % [place] # (Auto) 1.05 H (0.11-0.59) K/uL PT 12.4 H (9.0-12.0) Seconds Sodium 133 L (136-145) mmol/L Chloride 93 L (98-107) mmol/L BUN 55 H (6-23) mg/dl Creatinine 2.81 H (0.6-1.2) mg/dl Glucose 225 H (70-99(Fasting)) mg/dl AST 43 H (13-39) U/L Alkaline Phosphatase 187 H (34-104) U/L Troponin I High Sens 37.0 H (0-14) pg/ml B-Natriuretic Peptide 774 H (0-100) pg/ml Diagnostic Findings Chest X-Ray 01/31/24 14:30 SINGLE VIEW CHEST CLINICAL HISTORY: Dyspnea FINDINGS: An AP, portable, upright chest radiograph is compared to study dated 01/16/2024. A multilead cardiac AICD is unchanged in position and partially obscures the left lower chest. There is evidence of previous cardiac valve surgery. The heart is enlarged noting atherosclerotic calcification of the thoracic aorta. There is pulmonary vascular congestion with mild interstitial edema. There are layering pleural effusions with dependent consolidation. No pneumothorax is seen. The skeletal structures are osteopenic. The bony thorax is grossly intact. IMPRESSION: 1. Cardiomegaly and AICD with evidence of congestive failure. 2. Layering pleural effusions with dependent consolidation. ACT 112: Negative or not required by law. Electronically signed by: Marcus East M.D. 01/31/2024 3:45 PM ECG Additional Comments: Ventricular-paced rhythm Biventricular pacemaker detected Abnormal ECG When compared with ECG of 16-JAN-2024 14:17, Vent. rate has increased BY 5 BPM Code Status & VTE Plan Code Status DNR/DNI VTE Prophylaxis Plan VTE Prophylaxis will be ordered: Yes Supervising Physician Co-Signing Physician Notes I personally saw and examined the patient. I verified all [place] points and agree with Yao Johnson PA-C with the following exceptions and/or additions: 83 year old female with recent hospitalizations for congestive heart failure. No change in diet. Slow progressive worsening shortness of breath since last admission. No chest pain. Significant net negative output for the first few days of last admission however after this appeared to be relatively stable. O/E A&Ox3, HS RRR, 2/6 systolic murmur, no respiratory distress, bibasal crackles, Abdo SNT, 1+ pitting edema b/l equal A/P Acute on chronic heart failure with reduced ejection fraction - Bumex 2mg IV BID, continue spironolactone, strict I&Os, daily weights PG Care Time/CCT Total # of Minutes Spent Total Time Spent with Patient: Total time spent is greater than 50% in coordination of care (as documented) at patient's floor/unit and/or counseling patient: Coding [place] [address] INT INP/OBS CARE 3/75MIN Patient Type Established Medical Decision Making High Complexity Diagnoses Acute exacerbation of CHF (congestive heart failure) I50.9 Abdominal pain R10.9 Nausea R11.0 Elevated troponin R77.8 Controlled type 2 diabetes mellitus with diabetic nephropathy, with long-term current use of insulin E11.21; Z79.4 Diabetes mellitus complication detail: with nephropathy Diabetes mellitus complication status: with kidney complications Diabetes mellitus custodial insulin use: with custodial use Acquired hypothyroidism E03.9 Hypothyroidism type: acquired Chronic obstructive pulmonary disease, unspecified J44.9 Ischemic cardiomyopathy I25.5 PAF (paroxysmal atrial fibrillation) I48.0 (5) DM II (diabetes mellitus, type II), controlled Diabetes mellitus complication detail: with nephropathy Diabetes mellitus complication status: with kidney complications Diabetes mellitus custodial insulin use: with custodial use Qualified Code(s): E11.21 - Type 2 diabetes mellitus with diabetic nephropathy; Z79.4 - halfway (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 (6) Hypothyroidism Hypothyroidism type: acquired Qualified Code(s): E03.9 - Hypothyroidism, unspecified
[2024-01-31] MEDS: BUMETANIDE 3 MG in SYRINGE 0 ML IV ONE (16:08)
[2024-01-31] MEDS ORDERED: DEXTROSE 50% 50 ML SYRINGE IV PRN (17:04)
[2024-01-31] MEDS ORDERED: GLUCAGON FOR INJ 1 MG VIAL SQ PRN (17:04)
[2024-01-31] MEDS ORDERED: GLUCOSE 10 TAB/TUBE PO PRN (17:04)
[2024-01-31] MEDS ORDERED: GLUCOSE 40% GEL 15 GM TUBE PO PRN (17:04)
[2024-01-31] MEDS ORDERED: CARBOHYDRATES FOR HYPOGLYCEMIA PO PRN (17:04)
--- NOTE | 2024-01-31 17:11 | CT Scan Report ---
CT OF THE ABDOMEN AND PELVIS WITHOUT CONTRAST CLINICAL HISTORY: Left-sided abdominal pain, nausea and vomiting. COMPARISON STUDY: CT of the abdomen and pelvis January 19, 2024. TECHNIQUE: Axial images of the abdomen and pelvis were obtained without IV contrast. Images were revi ewed in the axial, sagittal, and coronal planes. Automated exposure control was utilized for the adrein dy. A dose lowering technique was utilized adhering to the principles of ALARA. FINDINGS: Pacer leads are partially imaged. There is moderate cardiomegaly. Moderate to large right a nd small left pleural effusions are partially imaged on this exam. These appear similar to CT of Apri 2023. No renal, ureteral or bladder calculi are present. Bladder is mildly distended. Evaluation of the remainder of the abdomen and pelvis is suboptimal on this unenhanced exam. Liver, spleen, adr enal glands and pancreas are unremarkable. There is no biliary ductal dilatation status post cholecys tectomy. Mild body wall edema is present. There is trace ascites within the pelvis. No fluid collecti ons are present. There is no evidence for a bowel obstruction. No bowel wall thickening is identified on unenhanced exam. There is a moderate amount of stool within the colon. No lymphadenopathy is pres ent. Old L1 compression fracture is unchanged in appearance. There are no acute fractures within the lumbar spine, pelvis or hips. IMPRESSION: 1. No acute process within the abdomen or pelvis on unenhanced exam. No bowel obstruction. 2. Moderate to large right and small left pleural effusions, partially imaged on this exam. These are similar to CT of January 19, 2024. 3. Trace ascites within the pelvis, similar to prior exam. Mild body wall edema. ACT 112: Negative or not required by law. Electronically signed by: Cali Jacobo M.D. 01/31/2024 5:09 PM
[2024-01-31] MEDS: INSULIN ASPART PER UNIT CHARGE SC SCH (17:57)
[2024-01-31] MEDS: SUCRALFATE 1 GM/10 ML UDC PO ONE (17:57)
[2024-01-31] MEDS: PANTOprazole 40 MG in SYRINGE 0 ML IV ONE (17:59)
[2024-01-31] MEDS ORDERED: NON-FORMULARY MEDICATION (Potassium Gluconate 595 mg (99 mg) tablet) PO PRN (19:15)
[2024-01-31] MEDS ORDERED: traZODone HCL 50 MG TAB PO PRN (19:15)
--- NOTE | 2024-01-31 19:38 | Electrocardiogram Report ---
Test Reason : Blood Pressure : / mmHG Vent. Rate : 077 BPM Atrial Rate : 066 BPM P-R Int : 000 ms QRS Dur : 164 ms QT Int : 462 ms P-R-T Axes : 000 -85 095 degrees QTc Int : 522 ms Ventricular-paced rhythm Biventricular pacemaker detected Abnormal ECG When compared with ECG of 16-JAN-2024 14:17, Vent. rate has increased BY 5 BPM Confirmed by Petey Sanchez ([id number]) on 01/31/2024 7:37:47 PM Referred By: REFERRED SELF Confirmed By:Jr Sanchez
[2024-01-31] MEDS ORDERED: Nursing to Pharmacy Communication SCH (22:00)
[2024-01-31] MEDS: SUCRALFATE 1 GM/10 ML UDC PO SCH (22:05)
[2024-01-31] MEDS: GABAPENTIN 300 MG CAP PO SCH (22:06)
[2024-01-31] MEDS: APIXABAN 2.5 MG TAB PO SCH (22:06)
[2024-01-31] MEDS: carvediloL 3.125 MG TAB PO SCH (22:07)
[2024-01-31] MEDS: RANOLAZINE 500 MG ER TAB PO SCH (22:07)
[2024-01-31] MEDS: LANTUS PER UNIT CHARGE SQ SCH (22:07)
[2024-01-31] MEDS: MAGNESIUM OXIDE 400 MG TAB PO SCH (22:07)
[2024-01-31 22:50] LABS: Appearance Urine Clear (Clear); Bilirubin Urine Negative (Negative); Blood Urine Negative (Negative); Color Urine Yellow; Glucose Urine UA Negative (Negative); Ketones Urine Negative (Negative); Leukocyte Esterase Urine Negative (Negative); Nitrite Urine Negative (Negative); Protein Urine Negative (Negative); Specific Gravity Urine 1.009 (1.000-1.030); Urobilinogen Urine Negative (Negative)
[2024-02-01] MEDS: SIMETHICONE 80 MG CHEW PO PRN (00:51)
[2024-02-01] MEDS: ONDANSETRON INJ 2 MG/ML 2 ML VIAL IV PRN (02:12)
[2024-02-01] MEDS: LEVOTHYROXINE SODIUM 75 MCG TABLET PO SCH (06:21)
[2024-02-01 06:35] LABS: BUN Creatinine Ratio 20.4 (10-20); Calcium 9.2 mg/dl (8.6-10.3); Creatinine Clr Calc Pharmacy 17.3 ml/min; Est GFR (African American) 17.7 ml/min; Est GFR (Non-African American) 15.3 ml/min; Magnesium 2.3 mg/dl (1.7-2.4); Potassium 4.7 mmol/L (3.5-5.1)
[2024-02-01 06:39] LABS: Basophils # (auto) 0.03 K/uL (0.00-0.20); Basophils % (auto) 0.5 %; Eosinophils # (auto) 0.09 K/uL (0.00-0.50); Eosinophils % (auto) 1.4 %; Hematocrit (blood only) 30.9 % (37.0-47.0); Hemoglobin 9.4 g/dl (12.0-16.0); Immature Granulocytes # (auto) 0.02 K/uL (0.01-0.20); Immature Granulocytes % (auto) 0.3 %; Lymphocytes # (auto) 1.52 K/uL (1.20-3.40); Lymphocytes % (auto) 24.4 %; Mean Corpuscular Hgb Conc 30.4 g/dL (32.0-36.0); Mean Corpuscular Volume 88.8 fL (80.0-100.0); Monocytes # (auto) 0.84 K/uL (0.11-0.59); Monocytes % (auto) 13.5 %; Neutrophils # (auto) 3.74 K/uL (1.40-6.50); Neutrophils % (auto) 59.9 %; Platelet Count 271 K/uL (130-400); RDW Coefficient of Variation 15.7 % (11.5-14.5); RDW Standard Deviation 50.9 fL (36.4-46.3); Red Blood Count 3.48 M/uL (4.20-5.40); White Blood Count 6.24 K/ul (4.8-10.8)
[2024-02-01] MEDS: SERTRALINE HCL 50 MG TABLET PO SCH (08:51)
[2024-02-01] MEDS: CALCITRIOL 0.25 MCG CAPSULE PO SCH (08:51)
[2024-02-01] MEDS: SPIRONOLACTONE 25 MG TAB PO SCH (08:51)
[2024-02-01] MEDS: BUMETANIDE 2 MG in SYRINGE 0 ML IV SCH (08:52)
[2024-02-01] MEDS ORDERED: CALCIUM CARBONATE 500 MG CHEWABLE TAB PO PRN (09:34)
[2024-02-01] MEDS: INSULIN ASPART PER UNIT CHARGE SC SCH (09:40)
--- NOTE | 2024-02-01 12:29 | Hospitalist Progress Note ---
Date of Service February 01, 2024 Assessment & Plan (1) Acute exacerbation of CHF (congestive heart failure): Plan: Acute on chronic combined systolic and diastolic CHF -Patient has had recent multiple admissions for CHF exacerbations -Follows up with heart failure clinic -She has been compliant with medications and her low-sodium diet -CXR shows progression of her pulmonary edema and BL pleural effusions, BNP today is 774, which is higher than previous admissions -Patient has had little urinary output over the past 24 hours, despite increased doses of PO Bumex and start Spironolactone -S/P 3 mg IV bumex in the ED -Will continue with 2mg IV Bumex BID and will continue her Spironolactone -Monitor daily weight, I's & O's closely -Monitor renal function and electrolytes daily -Home Eliquis for DVT PPX -HH/DMII diet with 2 gm sodium restriction and 1800 mL fluid restriction -AM CBC, BMP, mag, PT/INR (2) Pleural effusion: Plan: Moderate to large right pleural effusion Most likely secondary to congestive heart failure Patient agrees for thoracentesis (3) Abdominal pain: Plan: Now resolved (4) Nausea: Plan: Now resolved, as needed Zofran (5) Elevated troponin: Plan: Likely due to demand ischemia, no evidence of chest pain this is close to her baseline. (6) DM II (diabetes mellitus, type II), controlled: Plan: -Monitor BSG ACHS, goal is 110-160 -Start 5 units lantus BID and CF 50 ACHS -Continue HH/DMII diet -Adjust regimen as needed (7) Hypothyroidism: Plan: -Continue levothyroxine (8) Chronic obstructive pulmonary disease, unspecified: Plan: -Stable on RA -Continue home breathing treatments -Incentive spirometry (9) Ischemic cardiomyopathy: Plan: -See CHF exacerbation (10) PAF (paroxysmal atrial fibrillation): Plan: -Currently in paced rhythm -Continue Carvedilol and Eliquis (11) Mitral regurgitation: Plan: Surgery has been mooted in the past Outpatient follow-up with cardiothoracic surgery Plan Continue to monitor in the hospital pending clinical improvement DNR/DNI DVT prophylaxis apixaban Admission and Anticipated Discharge Date Admission Date: January 31, 2024 Subjective Patient seen and examined today, states shortness of breath is much improved however still complains of indigestion Review of Systems Review of Systems: All systems reviewed are negative, apart from the ones contained in the history. Physical Exam Physical Exam: The patient is awake, alert and oriented 3, well developed and well nourished, normocephalic and atraumatic, lying in bed and in no acute distress. HEENT--PERRL, EOMI, mucous membranes and oropharynx mildly dry Neck--supple. No JVD. No bruits. Thyroid normal, trachea midline, no adenopathy. Heart--normal S1 and S2. No murmurs, rubs or gallops. Lungs--reduced air entry on auscultation Abdomen--normal bowel sounds and soft. Extremities--no cyanosis or clubbing. No edema. Dermatologic--normal skin turgor, normal color, no abnormal lymph nodes, no rash. Neurologic--cranial nerves II through XII grossly intact. Rheumatologic--normal range of motion. Psychiatric--normal affect. Results & Data Results & Data Vital Signs (Past 12 Hours) Vital Signs Temp Pulse Pulse Pulse Resp BP Pulse Ox 02/01/24 11:47 97.9 F 71 20 143/84 H 93 02/01/24 07:40 98.1 F 70 20 128/71 91 02/01/24 06:02 73 02/01/24 04:03 97.7 F 73 16 102/53 L 91 O2 Del Method 02/01/24 11:47 Room Air 02/01/24 07:40 Room Air 02/01/24 06:02 02/01/24 04:03 Room Air PG Care Time/CCT Total # of Minutes Spent Total Time Spent with Patient: Total time spent is greater than 50% in coordination of care (as documented) at patient's floor/unit and/or counseling patient: Coding Level of Care Code 06218 SUB INP/OBS CARE 2/35MIN Diagnoses Acute exacerbation of CHF (congestive heart failure) I50.9 Heart failure type: unspecified Pleural effusion J90 Abdominal pain R10.9 Nausea R11.0 Elevated troponin R77.8 Controlled type 2 diabetes mellitus with diabetic nephropathy, with long-term current use of insulin E11.21; Z79.4 Diabetes mellitus [facility] insulin use: with [facility] use Diabetes mellitus complication status: with kidney complications Diabetes mellitus complication detail: with nephropathy Acquired hypothyroidism E03.9 Hypothyroidism type: acquired Chronic obstructive pulmonary disease, unspecified J44.9 Ischemic cardiomyopathy I25.5 PAF (paroxysmal atrial fibrillation) I48.0 Mitral regurgitation I34.0 Time Spent (min) 35 (1) Acute exacerbation of CHF (congestive heart failure) Heart failure type: unspecified Qualified Code(s): I50.9 - Heart failure, unspecified (6) DM II (diabetes mellitus, type II), controlled 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
[2024-02-02] MEDS: ACETAMINOPHEN 325 MG TAB PO PRN (01:08)
[2024-02-02 04:41] LABS: BUN Creatinine Ratio 20.7 (10-20); Calcium 8.9 mg/dl (8.6-10.3); Creatinine Clr Calc Pharmacy 15.8 ml/min; Est GFR (African American) 15.9 ml/min; Est GFR (Non-African American) 13.7 ml/min; Magnesium 2.3 mg/dl (1.7-2.4); Potassium 4.7 mmol/L (3.5-5.1)
[2024-02-02 05:09] LABS: Basophils # (auto) 0.04 K/uL (0.00-0.20); Basophils % (auto) 0.5 %; Eosinophils # (auto) 0.16 K/uL (0.00-0.50); Eosinophils % (auto) 2.1 %; Hematocrit (blood only) 29.5 % (37.0-47.0); Hemoglobin 9.1 g/dl (12.0-16.0); Immature Granulocytes # (auto) 0.02 K/uL (0.01-0.20); Immature Granulocytes % (auto) 0.3 %; Lymphocytes % (auto) 26.1 %; Mean Corpuscular Hgb Conc 30.8 g/dL (32.0-36.0); Mean Corpuscular Volume 87.5 fL (80.0-100.0); Mean Platelet Volume 11.1 fL (9.4-12.4); Monocytes % (auto) 13.1 %; Neutrophils # (auto) 4.44 K/uL (1.40-6.50); Neutrophils % (auto) 57.9 %; Platelet Count 293 K/uL (130-400); RDW Coefficient of Variation 15.9 % (11.5-14.5); RDW Standard Deviation 50.5 fL (36.4-46.3); Red Blood Count 3.37 M/uL (4.20-5.40); White Blood Count 7.66 K/ul (4.8-10.8)
--- NOTE | 2024-02-02 12:54 | Hospitalist Progress Note ---
Date of Service February 02, 2024 Assessment & Plan (1) Acute exacerbation of CHF (congestive heart failure): Plan: Acute on chronic combined systolic and diastolic CHF -Patient has had recent multiple admissions for CHF exacerbations -Follows up with heart failure clinic -She has been compliant with medications and her low-sodium diet -CXR shows progression of her pulmonary edema and BL pleural effusions, BNP today is 774, which is higher than previous admissions -Patient has had little urinary output over the past 24 hours, despite increased doses of PO Bumex and start Spironolactone -S/P 3 mg IV bumex in the ED -Will continue with 2mg IV Bumex BID and will continue her Spironolactone -Monitor daily weight, I's & O's closely -Monitor renal function and electrolytes daily -Home Eliquis for DVT PPX -HH/DMII diet with 2 gm sodium restriction and 1800 mL fluid restriction -AM CBC, BMP, mag, PT/INR (2) Abdominal pain: Plan: -Now resolved -CT of the abd/pelvis wo IV con was negative for acute findings -Will continue patient's BID pantoprazole and start QID carafate -Monitor for improvement (3) Pleural effusion: Plan: Moderate to large right pleural effusion Most likely secondary to congestive heart failure Patient agrees for thoracentesis Thoracentesis planned for Monday, currently holding Eliquis (4) Nausea: Plan: -Likely related to her reflux/possible ulcer -Could have a component of Gastroparesis as well -Continue pantoprazole and monitor for improvement with starting Carafate -PRN Zofran (5) Elevated troponin: Plan: -Initial high sen trop elevated at 37 --> 39 on 2 hour repeat -This is consistent with her previous admissions -Patient denies chest pain, no acute ECG changes -Likely related to demand -Continue to monitor on tele (6) DM II (diabetes mellitus, type II), controlled: Plan: -Monitor BSG ACHS, goal is 110-160 -Start 5 units lantus BID and CF 50 ACHS -Continue HH/DMII diet -Adjust regimen as needed (7) Hypothyroidism: Plan: -Continue levothyroxine (8) Chronic obstructive pulmonary disease, unspecified: Plan: -Stable on RA -Continue home breathing treatments -Incentive spirometry (9) Ischemic cardiomyopathy: Plan: -See CHF exacerbation (10) PAF (paroxysmal atrial fibrillation): Plan: -Currently in paced rhythm -Continue Carvedilol and Eliquis (11) Mitral regurgitation: Plan: Surgery has been mooted in the past Outpatient follow-up with cardiothoracic surgery Admission and Anticipated Discharge Date Admission Date: January 31, 2024 Subjective Patient seen and examined today, states shortness of breath is somewhat improved, but still gets short of breath whenever she moves around. Review of Systems Review of Systems: All systems reviewed are negative, apart from the ones contained in the history. Physical Exam Physical Exam: The patient is awake, alert and oriented 3, well developed and well nourished, normocephalic and atraumatic, lying in bed and in no acute distress. HEENT--PERRL, EOMI, mucous membranes and oropharynx mildly dry Neck--supple. No JVD. No bruits. Thyroid normal, trachea midline, no adenopathy. Heart--normal S1 and S2. Regurgitant murmur Lungs--reduced air entry on auscultation Abdomen--normal bowel sounds and soft. Extremities--no cyanosis or clubbing. No edema. Dermatologic--normal skin turgor, normal color, no abnormal lymph nodes, no rash. Neurologic--cranial nerves II through XII grossly intact. Rheumatologic--normal range of motion. Psychiatric--normal affect. Results & Data Results & Data Vital Signs (Past 12 Hours) Vital Signs Temp Pulse Pulse Resp BP Pulse Ox O2 Del Method 02/02/24 08:47 98.1 F 69 17 146/84 H 90 Room Air 02/02/24 06:00 70 02/02/24 04:14 98.4 F 71 14 133/79 91 Room Air PG Care Time/CCT Total # of Minutes Spent Total Time Spent with Patient: Total time spent is greater than 50% in coordination of care (as documented) at patient's floor/unit and/or counseling patient: Coding Level of Care Code 07330 SUB INP/OBS CARE 2/35MIN Diagnoses Acute exacerbation of CHF (congestive heart failure) I50.9 Heart failure type: unspecified Abdominal pain R10.9 Pleural effusion J90 Nausea R11.0 Elevated troponin R77.8 Controlled type 2 diabetes mellitus with diabetic nephropathy, with long-term current use of insulin E11.21; Z79.4 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 insulin 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: with ad terminal makeup operator use Diabetes mellitus complication status: with kidney complications Diabetes mellitus complication detail: with nephropathy Acquired hypothyroidism E03.9 Hypothyroidism type: acquired Chronic obstructive pulmonary disease, unspecified J44.9 Ischemic cardiomyopathy I25.5 PAF (paroxysmal atrial fibrillation) I48.0 Mitral regurgitation I34.0 Time Spent (min) 35 (1) Acute exacerbation of CHF (congestive heart failure) Heart failure type: unspecified Qualified Code(s): I50.9 - Heart failure, unspecified (6) DM II (diabetes mellitus, type II), controlled Diabetes 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
[2024-02-02] MEDS: TICAGRELOR 60 MG TAB PO SCH (20:26)
[2024-02-03 06:53] LABS: Basophils # (auto) 0.04 K/uL (0.00-0.20); Basophils % (auto) 0.5 %; Eosinophils # (auto) 0.18 K/uL (0.00-0.50); Eosinophils % (auto) 2.4 %; Hematocrit (blood only) 31.7 % (37.0-47.0); Hemoglobin 9.8 g/dl (12.0-16.0); Immature Granulocytes # (auto) 0.03 K/uL (0.01-0.20); Immature Granulocytes % (auto) 0.4 %; Lymphocytes # (auto) 2.36 K/uL (1.20-3.40); Lymphocytes % (auto) 31.5 %; Mean Corpuscular Hemoglobin 26.8 pg (25.0-34.0); Mean Corpuscular Hgb Conc 30.9 g/dL (32.0-36.0); Mean Corpuscular Volume 86.6 fL (80.0-100.0); Mean Platelet Volume 10.7 fL (9.4-12.4); Monocytes # (auto) 1.02 K/uL (0.11-0.59); Monocytes % (auto) 13.6 %; Neutrophils # (auto) 3.86 K/uL (1.40-6.50); Neutrophils % (auto) 51.6 %; Platelet Count 294 K/uL (130-400); RDW Coefficient of Variation 15.9 % (11.5-14.5); RDW Standard Deviation 50.4 fL (36.4-46.3); Red Blood Count 3.66 M/uL (4.20-5.40); White Blood Count 7.49 K/ul (4.8-10.8)
[2024-02-03 07:08] LABS: BUN Creatinine Ratio 19.9 (10-20); Calcium 9.2 mg/dl (8.6-10.3); Creatinine Clr Calc Pharmacy 14.7 ml/min; Est GFR (African American) 15.2 ml/min; Est GFR (Non-African American) 13.1 ml/min; Magnesium 2.3 mg/dl (1.7-2.4); Potassium 4.5 mmol/L (3.5-5.1)
--- NOTE | 2024-02-03 11:39 | Hospitalist Progress Note ---
Date of Service February 03, 2024 Assessment & Plan (1) Acute exacerbation of CHF (congestive heart failure): Plan: Acute on chronic combined systolic and diastolic CHF -Patient has had recent multiple admissions for CHF exacerbations -Follows up with heart failure clinic -She has been compliant with medications and her low-sodium diet -On admission, CXR shows progression of her pulmonary edema and BL pleural effusions, BNP was 774, which is higher than previous admissions -Patient has had little urinary output over the past 24 hours, despite increased doses of PO Bumex and start Spironolactone -S/P 3 mg IV bumex in the ED -Will continue with 2mg IV Bumex BID and will continue her Spironolactone (will hold Bumex for 1 day to give the kidneys a break) -Monitor daily weight, I's & O's closely (2) Pleural effusion: Plan: Moderate to large right pleural effusion Most likely secondary to congestive heart failure Patient agrees for thoracentesis Thoracentesis planned for Monday, currently holding Eliquis (3) Abdominal pain: Plan: -Now resolved -CT of the abd/pelvis wo IV con was negative for acute findings -Will continue patient's BID pantoprazole and start QID carafate -Monitor for improvement (4) CKD (chronic kidney disease) stage 4, GFR 15-29 ml/min: Plan: Worsening kidney function following diuresis Will hold Bumex for 1 day to give the kidneys a break Avoid nephrotoxic's. (5) Nausea: Plan: -Likely related to her reflux/possible ulcer -Could have a component of Gastroparesis as well -Continue pantoprazole and monitor for improvement with starting Carafate -PRN Zofran (6) Elevated troponin: Plan: -Likely related to demand -Continue to monitor on tele (7) DM II (diabetes mellitus, type II), controlled: Plan: -Monitor BSG ACHS, goal is 110-160 -Start 5 units lantus BID and CF 50 ACHS -Continue HH/DMII diet -Adjust regimen as needed (8) Hypothyroidism: Plan: -Continue levothyroxine (9) Chronic obstructive pulmonary disease, unspecified: Plan: -Stable on RA -Continue home breathing treatments -Incentive spirometry (10) Ischemic cardiomyopathy: Plan: -See CHF exacerbation (11) PAF (paroxysmal atrial fibrillation): Plan: -Currently in paced rhythm -Continue Carvedilol and Eliquis (12) Mitral regurgitation: Plan: Surgery has been mooted in the past Outpatient follow-up with cardiothoracic surgery Plan Continue hospitalization, for thoracentesis on Monday Admission and Anticipated Discharge Date Admission Date: January 31, 2024 Subjective Patient seen and examined today, states shortness of breath is somewhat improved, but still gets short of breath whenever she moves around. Review of Systems Review of Systems: All systems reviewed are negative, apart from the ones contained in the history. Physical Exam Physical Exam: The patient is awake, alert and oriented 3, well developed and well nourished, normocephalic and atraumatic, lying in bed and in no acute distress. HEENT--PERRL, EOMI, mucous membranes and oropharynx mildly dry Neck--supple. No JVD. No bruits. Thyroid normal, trachea midline, no adenopathy. Heart--normal S1 and S2. Regurgitant murmur Lungs--reduced air entry on auscultation Abdomen--normal bowel sounds and soft. Extremities--no cyanosis or clubbing. No edema. Dermatologic--normal skin turgor, normal color, no abnormal lymph nodes, no rash. Neurologic--cranial nerves II through XII grossly intact. Rheumatologic--normal range of motion. Psychiatric--normal affect. Results & Data Results & Data Vital Signs (Past 12 Hours) Vital Signs Temp Pulse Pulse Resp BP Pulse Ox O2 Del Method 02/03/24 07:45 Room Air 02/03/24 07:45 98.1 F 78 18 150/82 H 91 Room Air 02/03/24 07:00 71 02/03/24 03:07 97.7 F 70 18 122/80 92 Room Air PG Care Time/CCT Total # of Minutes Spent Total Time Spent with Patient: Total time spent is greater than 50% in coordination of care (as documented) at patient's floor/unit and/or counseling patient: Coding Level of Care Code 49313 SUB INP/OBS CARE 2/35MIN Diagnoses Acute exacerbation of CHF (congestive heart failure) I50.9 Heart failure type: unspecified Pleural effusion J90 Abdominal pain R10.9 CKD (chronic kidney disease) stage 4, GFR 15-29 ml/min N18.4 Nausea R11.0 Elevated troponin R77.8 Controlled type 2 diabetes mellitus with diabetic nephropathy, with long-term current use of insulin E11.21; Z79.4 Diabetes mellitus halfway insulin use: with multiplex operator use Diabetes mellitus complication status: with kidney complications Diabetes mellitus complication detail: with nephropathy Acquired hypothyroidism E03.9 Hypothyroidism type: acquired Chronic obstructive pulmonary disease, unspecified J44.9 Ischemic cardiomyopathy I25.5 PAF (paroxysmal atrial fibrillation) I48.0 Mitral regurgitation I34.0 Time Spent (min) 35 (1) Acute exacerbation of CHF (congestive heart failure) Heart failure type: unspecified Qualified Code(s): I50.9 - Heart failure, unspecified (7) DM II (diabetes mellitus, type II), controlled 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
[2024-02-03] MEDS: POLYETHYLENE (MIRALAX) 17 GM PACK PO PRN (21:05)
[2024-02-04 05:07] LABS: BUN Creatinine Ratio 22.8 (10-20); Calcium 9.1 mg/dl (8.6-10.3); Creatinine Clr Calc Pharmacy 15.8 ml/min; Est GFR (African American) 16.5 ml/min; Est GFR (Non-African American) 14.3 ml/min; Potassium 4.7 mmol/L (3.5-5.1)
--- NOTE | 2024-02-04 11:06 | Hospitalist Progress Note ---
Date of Service February 04, 2024 Assessment & Plan (1) Acute exacerbation of CHF (congestive heart failure): Plan: Acute on chronic combined systolic and diastolic CHF -Patient has had recent multiple admissions for CHF exacerbations -Follows up with heart failure clinic -She has been compliant with medications and her low-sodium diet -On admission, CXR shows progression of her pulmonary edema and BL pleural effusions, BNP was 774, which is higher than previous admissions -Patient has had little urinary output over the past 24 hours, despite increased doses of PO Bumex and start Spironolactone -S/P 3 mg IV bumex in the ED -Will continue with 2mg IV Bumex BID and will continue her Spironolactone (Bumex was held for 1 day to give the kidneys a break, will resume today) -Monitor daily weight, I's & O's closely (2) Pleural effusion: Plan: Moderate to large right pleural effusion Most likely secondary to congestive heart failure Patient agrees for thoracentesis Thoracentesis planned for Monday, currently holding Eliquis (3) Abdominal pain: Plan: -Now resolved -CT of the abd/pelvis wo IV con was negative for acute findings -Will continue patient's BID pantoprazole and start QID carafate -Monitor for improvement (4) CKD (chronic kidney disease) stage 4, GFR 15-29 ml/min: Plan: Worsening kidney function following diuresis Slight improvement following holding of Bumex Avoid nephrotoxic's. (5) Nausea: Plan: -Likely related to her reflux/possible ulcer -Could have a component of Gastroparesis as well -Continue pantoprazole and monitor for improvement with starting Carafate -PRN Zofran (6) Elevated troponin: Plan: -Likely related to demand -Continue to monitor on tele (7) DM II (diabetes mellitus, type II), controlled: Plan: -Monitor BSG ACHS, goal is 110-160 -Start 5 units lantus BID and CF 50 ACHS -Continue HH/DMII diet -Adjust regimen as needed (8) Hypothyroidism: Plan: -Continue levothyroxine (9) Chronic obstructive pulmonary disease, unspecified: Plan: -Stable on RA -Continue home breathing treatments -Incentive spirometry (10) Ischemic cardiomyopathy: Plan: -See CHF exacerbation (11) PAF (paroxysmal atrial fibrillation): Plan: -Currently in paced rhythm -Continue Carvedilol and Eliquis (12) Mitral regurgitation: Plan: Surgery has been mooted in the past Outpatient follow-up with cardiothoracic surgery Plan Continue hospitalization, for thoracentesis on Monday Admission and Anticipated Discharge Date Admission Date: January 31, 2024 Subjective Patient seen and examined today, states shortness of breath is somewhat improved, but still gets short of breath whenever she moves around. Review of Systems Review of Systems: All systems reviewed are negative, apart from the ones contained in the history. Physical Exam Physical Exam: The patient is awake, alert and oriented 3, well developed and well nourished, normocephalic and atraumatic, lying in bed and in no acute distress. HEENT--PERRL, EOMI, mucous membranes and oropharynx mildly dry Neck--supple. No JVD. No bruits. Thyroid normal, trachea midline, no adenopathy. Heart--normal S1 and S2. Regurgitant murmur Lungs--reduced air entry on auscultation Abdomen--normal bowel sounds and soft. Extremities--no cyanosis or clubbing. No edema. Dermatologic--normal skin turgor, normal color, no abnormal lymph nodes, no rash. Neurologic--cranial nerves II through XII grossly intact. Rheumatologic--normal range of motion. Psychiatric--normal affect. Results & Data Results & Data Vital Signs (Past 12 Hours) Vital Signs Temp Pulse Resp BP Pulse Ox O2 Del Method 02/04/24 07:35 98.1 F 73 16 131/77 90 Room Air 02/04/24 03:18 97.3 F L 70 18 124/78 94 Room Air 02/03/24 23:07 98.6 F 73 16 137/76 92 Room Air PG Care Time/CCT Total # of Minutes Spent Total Time Spent with Patient: Total time spent is greater than 50% in coordination of care (as documented) at patient's floor/unit and/or counseling patient: Coding Level of Care Code 82370 SUB INP/OBS CARE 2/35MIN Diagnoses Acute exacerbation of CHF (congestive heart failure) I50.9 Heart failure type: unspecified Pleural effusion J90 Abdominal pain R10.9 CKD (chronic kidney disease) stage 4, GFR 15-29 ml/min N18.4 Nausea R11.0 Elevated troponin R77.8 Controlled type 2 diabetes mellitus with diabetic nephropathy, with long-term current use of insulin E11.21; Z79.4 Diabetes mellitus alf insulin use: with alf use Diabetes mellitus complication status: with kidney complications Diabetes mellitus complication detail: with nephropathy Acquired hypothyroidism E03.9 Hypothyroidism type: acquired Chronic obstructive pulmonary disease, unspecified J44.9 Ischemic cardiomyopathy I25.5 PAF (paroxysmal atrial fibrillation) I48.0 Mitral regurgitation I34.0 Time Spent (min) 35 (1) Acute exacerbation of CHF (congestive heart failure) Heart failure type: unspecified Qualified Code(s): I50.9 - Heart failure, unspecified (7) DM II (diabetes mellitus, type II), controlled Diabetes mellitus alf insulin use: with alf use Diabetes mellitus complication status: with kidney complications Diabetes mellitus complication detail: with nephropathy Qualified Code(s): E11.21 - Type 2 diabetes mellitus with diabetic nephropathy; Z79.4 - USP (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 (8) Hypothyroidism Hypothyroidism type: acquired Qualified Code(s): E03.9 - Hypothyroidism, unspecified
[2024-02-05 06:39] LABS: Calcium 9.1 mg/dl (8.6-10.3); Est GFR (African American) 19.4 ml/min; Est GFR (Non-African American) 16.7 ml/min; Potassium 4.4 mmol/L (3.5-5.1)
--- NOTE | 2024-02-05 11:45 | Hospitalist Progress Note ---
Date of Service February 05, 2024 Assessment & Plan (1) Acute exacerbation of CHF (congestive heart failure): Plan: Acute on chronic combined systolic and diastolic CHF -Patient has had recent multiple admissions for CHF exacerbations -Follows up with heart failure clinic -She has been compliant with medications and her low-sodium diet -On admission, CXR shows progression of her pulmonary edema and BL pleural effusions, BNP was 774, which is higher than previous admissions -Patient has had little urinary output over the past 24 hours, despite increased doses of PO Bumex and start Spironolactone -S/P 3 mg IV bumex in the ED -Will continue with 2mg IV Bumex BID and will continue her Spironolactone -Monitor daily weight, I's & O's closely (2) Pleural effusion: Plan: Moderate to large right pleural effusion Most likely secondary to congestive heart failure Patient agrees for thoracentesis, scheduled for therapeutic thoracentesis today (3) Abdominal pain: Plan: -Now resolved -CT of the abd/pelvis wo IV con was negative for acute findings -Will continue patient's BID pantoprazole and start QID carafate -Monitor for improvement (4) CKD (chronic kidney disease) stage 4, GFR 15-29 ml/min: Plan: Worsening kidney function following diuresis Slight improvement following holding of Bumex Avoid nephrotoxic's. (5) Nausea: Plan: -Likely related to her reflux/possible ulcer -Could have a component of Gastroparesis as well -Continue pantoprazole and monitor for improvement with starting Carafate -PRN Zofran (6) Elevated troponin: Plan: -Likely related to demand -Continue to monitor on tele (7) DM II (diabetes mellitus, type II), controlled: Plan: -Monitor BSG ACHS, goal is 110-160 -Start 5 units lantus BID and CF 50 ACHS -Continue HH/DMII diet -Adjust regimen as needed (8) Hypothyroidism: Plan: -Continue levothyroxine (9) Chronic obstructive pulmonary disease, unspecified: Plan: -Stable on RA -Continue home breathing treatments -Incentive spirometry (10) Ischemic cardiomyopathy: Plan: -See CHF exacerbation (11) PAF (paroxysmal atrial fibrillation): Plan: -Currently in paced rhythm -Continue Carvedilol and Eliquis (currently on hold for thoracentesis) (12) Mitral regurgitation: Plan: Surgery has been mooted in the past Outpatient follow-up with cardiothoracic surgery Plan Continue hospitalization, for thoracentesis today Admission and Anticipated Discharge Date Admission Date: January 31, 2024 Subjective Patient seen and examined today, states shortness of breath is somewhat improved, but still gets short of breath whenever she moves around. Scheduled for therapeutic thoracentesis today Review of Systems Review of Systems: All systems reviewed are negative, apart from the ones contained in the history. Physical Exam Physical Exam: The patient is awake, alert and oriented 3, well developed and well nourished, normocephalic and atraumatic, lying in bed and in no acute distress. HEENT--PERRL, EOMI, mucous membranes and oropharynx mildly dry Neck--supple. No JVD. No bruits. Thyroid normal, trachea midline, no adenopathy. Heart--normal S1 and S2. Regurgitant murmur Lungs--reduced air entry on auscultation Abdomen--normal bowel sounds and soft. Extremities--no cyanosis or clubbing. No edema. Dermatologic--normal skin turgor, normal color, no abnormal lymph nodes, no rash. Neurologic--cranial nerves II through XII grossly intact. Rheumatologic--normal range of motion. Psychiatric--normal affect. Results & Data Results & Data Vital Signs (Past 12 Hours) Vital Signs Temp Pulse Resp BP Pulse Ox O2 Del Method 02/05/24 07:28 98.1 F 79 18 164/94 H 93 Room Air 02/05/24 03:03 97.7 F 79 18 136/72 91 Room Air 02/05/24 00:00 97.9 F 70 18 138/75 92 Room Air PG Care Time/CCT Total # of Minutes Spent Total Time Spent with Patient: Total time spent is greater than 50% in coordination of care (as documented) at patient's floor/unit and/or counseling patient: Coding Level of Care Code 19781 SUB INP/OBS CARE 2/35MIN Diagnoses Acute exacerbation of CHF (congestive heart failure) I50.9 Heart failure type: unspecified Pleural effusion J90 Abdominal pain R10.9 CKD (chronic kidney disease) stage 4, GFR 15-29 ml/min N18.4 Nausea R11.0 Elevated troponin R77.8 Controlled type 2 diabetes mellitus with diabetic nephropathy, with long-term current use of insulin E11.21; Z79.4 Diabetes mellitus terminal system operator insulin use: with senior living use Diabetes mellitus complication status: with kidney complications Diabetes mellitus complication detail: with nephropathy Acquired hypothyroidism E03.9 Hypothyroidism type: acquired Chronic obstructive pulmonary disease, unspecified J44.9 Ischemic cardiomyopathy I25.5 PAF (paroxysmal atrial fibrillation) I48.0 Mitral regurgitation I34.0 Time Spent (min) 35 (1) Acute exacerbation of CHF (congestive heart failure) Heart failure type: unspecified Qualified Code(s): I50.9 - Heart failure, unspecified (7) DM II (diabetes mellitus, type II), controlled Diabetes mellitus terminal system operator insulin use: with terminal system operator use Diabetes mellitus complication status: with kidney complications Diabetes mellitus complication detail: with nephropathy Qualified Code(s): E11.21 - Type 2 diabetes mellitus with diabetic nephropathy; Z79.4 - longterm (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 (8) Hypothyroidism Hypothyroidism type: acquired Qualified Code(s): E03.9 - Hypothyroidism, unspecified
--- NOTE | 2024-02-05 12:04 | XRay Report ---
XR chest 1V not portable HISTORY: 83 years-old Female s/p rt thoracentesis acute shortness of breath COMPARISON: 01/31/2044 TECHNIQUE: AP view of the chest FINDINGS: Cardiac silhouette is enlarged. Left subclavian pacer/AICD. Aortic valvular endograft. Pulmonary vasc ular congestion with interstitial coarsening. Layering pleural effusions with persistent bibasilar op acities. The right pleural effusion is mildly decreased in size. No postprocedural pneumothorax. Bone s appear grossly intact. IMPRESSION: 1. No postprocedural pneumothorax. 2. Cardiomegaly with persistent pulmonary edema. 3. Layering pleural effusions with bibasilar opacities redemonstrated. ACT 112: Negative or not required by law. The above report was generated using voice recognition software. It may contain grammatical, syntax o r spelling errors. Electronically signed by: Irving Lerner M.D. 02/05/2024 12:02 PM
--- NOTE | 2024-02-05 14:26 | Ultrasound Report ---
Ultrasound guided thoracentesis. Clinical indication: Right-sided pleural effusion. Procedure: Procedure and risks were explained. Informed consent was obtained. A final timeout was com pleted. The right posterior chest was prepped and draped in the sterile fashion. 1% buffered lidocain e was utilized for skin anesthesia. Utilizing ultrasound guidance, a 5 Georgian catheter was introduced into the pleural space and 1200 ml of pleural fluid was drained. Ultrasound images were obtained. T he catheter was removed. Post procedure scanning revealed significant decrease in the size of the ple ural effusion. Postprocedural chest x-ray showed no pneumothorax. Child Support Agent: Zane Sosa PA-C. IMPRESSION: Ultrasound guided thoracentesis as described above. Performed, dictated, and signed by Zane Sosa PA-C; to be co-signed by Dr. Sid Rodriguez. Electronically signed by: Sid Rodriguez M.D. 02/05/2024 2:31 PM
--- NOTE | 2024-02-05 21:34 | Palliative Care Consultation ---
Date of Consultation February 05, 2024 Assessment & Plan (1) Dyspnea and respiratory abnormalities: (2) Weakness generalized: (3) Muscular deconditioning: (4) Advanced care planning/counseling discussion: I had a 45-minute [id number] advance care planning discussion with Ban and her daughter at the bedside today. is very practical and aware of her overall heart issues. She states that she is awaiting the scheduling of an appointment at [facility] to determine if she can have surgery on her mitral valve. She does not want to go to rehab at a penitentiary. She is willing to go home and try rehab with PT at home but she is not willing to be placed anywhere. She tells me that she is elected a DNR/DNI. She understands that she has an advanced heart failure that is reaching its end stages. We discussed what her goals would be at this junction and she is scared that overall she wants to remain at home until "the very last minute or until I ." Her daughter is supportive of this but worries that patient will not have enough caregiver support at home. Currently she lives alone and patient and her brother help patient with her household needs, meal prep, groceries and house cleaning/laundry. But they are not there with her tlesgm-itr-cuiar. Daughter indicates that if patient were to be on hospice for an end-of-life situation, she would take a leave of absence from work but patient expresses worry about this happening to her daughter because of the financial implications. We di scussed the option of discharging home with home hospice should the focus and desire wish to be on comfort and quality of life. Patient is willing to pursue mitral valve surgery if it is felt that she is a candidate because in her conversations during heart failure clinic, she perceives being told that the surgery for her heart valve would significantly improve her symptoms and she would "feel like a new woman." She is willing to try this in the hopes that it may allow her to remain more independent and stay in her home. To her this is a goal worth taking a chance on. We discussed the options of home hospice.We discussed the goals of hospice as a patient service and the goals of care; we discussed EOL trajectories and transitions genet the emotional impact of realizing mortality as a concrete reality from prior abstract considerations. Pt was reassured that no matter where they are along this trajectory, they are not alone - their medical team will remain by their side through their journey. Discussed the pros/cons of accepting help when especially weakened and distressed by pain-which would also help provide relief/decrease caregiver burden/strain. I provided education about the hospice benefit: an interdisciplinary program offered by nurses, nurses aides, social workers, chaplains and a director global medical affairs for patients with a terminal condition and a life expectancy of less than 6 months. This is covered by Medicare at 100%/no out of pocket expense to patient and all meds/supplies needed by patient for the reason they are on hospice are paid for/covered by hospice. The goal is assure quality of life of the patient in their home setting (home, penitentiary, inpatient hospice setting) by providing symptoms management, psychosocial and spiritual support. However, they cannot offer 24 hours care and if the family is unable to provide that care, they will have to consider personal care with out of pocket cost vs. penitentiary placement. We discussed the goals of hospice as a patient service and the goals of care; we discussed EOL trajectories and transitions genet the emotional impact of realizing mortality as a concrete reality from prior abstract considerations. Pt was reassured that no matter where they are along this trajectory, they are not alone - their medical team will remain by their side through their journey. Discussed the pros/cons of accepting help when especially weakened and distressed by pain-which would also help provide relief/decrease caregiver burden/strain. We discussed some potential what if scenarios including that if she went to her she and it was felt that she is not a candidate for surgery, then it would be reasonable for her to return home with the addition of home hospice. She is very agreeable to this as she recognizes that it is a way to help assure she has some extra caregiving and support to be able to remain in her home for as long as possible. Her daughter is in agreement with this as well. (5) Palliative care by specialist: Met with pt/family. Provided overview of Palliative Medicine, a subspecialty that provides specialized medical care for people living with a serious illness by offering a focus on quality of life. Palliative Medicine is often conflated with hospice: I advised patient/family that Palliative and hospice can be partners but we are not the same. It is important to understand the difference so that we may be informed, and not afraid. Palliative Medicine works to improve QOL through reduction of symptom burden/more control over their illness, for both the patient and family. Palliative medicine clinicians are board certified, specially-trained and another member of the patient's medical care team. We often provide an extra layer of support because our care is based on the needs of the patient, not the prognosis; as such, it's appropriate at any age/advancing stage of a serious illness and can be provided along with curative treatment. Palliative Medicine clinicians are also trained in advanced communication methodologies, to facilitate complex discussions about advanced illness planning, which are needed to help assure that the treatment choices match the patient's goals, aka delivering Goal Concordant care. Finally, we discussed that hospice is a visiting nurse service that focuses on care delivered at the very end of life for patients with terminal illness, with life expectancy less than 6 month. Plan * Goals of care discussion as requested is held above and documented under #4. * Patient was offered follow-up in outpatient palliative medicine clinic on an as-needed basis. My business card and contact information has been provided to her daughter. They will call to schedule an appointment if desired after her evaluation at [facility] for mitral valve repair. Thank you for allowing us to participate in the ongoing care of this patient. Please don't hesitate to call or page with any additional concerns. Dr. Casandra Smart DNP Director, Palliative Care History of Present Illness Reason for Consultation: Advanced valvular heart failure, goals of care, possible hospice. Attending Physician: Beth Mendoza MD History of Present Illness Ban is an 83-year-old female admitted 01/31/2024 with exacerbation of her chronic combined systolic and diastolic heart failure. Chest x-ray revealed a large right pleural effusion. She was profoundly dyspneic. At the time of my visit, she had recently returned from a thoracentesis and she reports a dramatic improvement in her symptoms. She is able to speak in complete sentences. She is able to take a deep breath. She does not have any more tightness across her chest. She has CKD stage IV as a sequela of her longtime heart failure and diuretic therapy. She is seen today with her daughter at the bedside. Ban has longstanding valvular heart failure. She has ischemic cardiomyopathy, paroxysmal A-fib, status post AV ablation, hypertension, severe aortic stenosis, mitral regurgitation, and also has a biventricular ICD. She is status post transcatheter aortic valve replacement (TAVR), has CAD, pulmonary hypertension, and her heart failure is with a reduced ejection fraction. Her last ejection fraction was 40%. Ban confirms that she has a completed living will and her daughter at bedside reaffirms that the family is aware of her wishes. Ban reaffirms her no code selection of DNR/DNI. Her children are her surrogate decision makers. Her overall goals are to be able to remain in her home and tolerate some activities of daily living. She is willing to accept help from her children as well as some potential outside help by way of visiting nurse services. She is firm that she does not wish to have any dialysis, artificial nutrition or hydration, or aggressive interventions. She has been having more frequent hospitalizations, with a growing diuretic resistance and the overall picture emerging is that of a progressive heart failure that is reaching its terminal stages and therapy de- escalation conversations have been initiated in heart failure clinic. Ban tells me today that she has been referred to [facility] for another intervention, possibly this time for her mitral valve. There is an excellent heart failure clinic note from 01/26/2024 by Latrice Mcmanus PA-C which reads as follows: Details: Ms. Barry is a 83-year-old female with a past medical history significant for coronary artery disease (s/p NATY to mid LAD 10/2017 and NATY prox to mid LAD 10/17/2018 circumflex PCI 09/2019, mid circumflex 05/2019, ostial circumflex 12/2019), ischemic cardiomyopathy (EF 25-30%), chronic combined CHF, paroxysmal atrial flutter, aortic stenosis now sp TAVR 10/2019, mild to moderate mitral regurgitation, diabetes mellitus, CKD, hypothyroidism, carotid artery stenosis s/p bilateral carotid endarterectomies, peripheral arterial disease (mild-moderate disease in right SFA and 100% right anterior tibial stenosis in 05/2017), and symptomatic sinus bradycardia s/p dual-chamber pacemaker implantation 05/14/2018. Dr. Cueva is her primary airport tower controller. In 2018, she underwent successful PCI of proximal to mid LAD with single drug- eluting stent which overlapped the proximal aspect of prior mid LAD stent (3.0 x 22 mm resolute). She was placed on Plavix in addition to Eliquis (she has ASA allergy). Eliquis dose was reduced during admission given CKD. She developed atrial flutter with 2-1 AV conduction during admission requiring infusion of IV diltiazem and digoxin. The medications were converted to PO upon discharge and amlodipine as well as labetalol were stopped. Patient was also found to have acute pulmonary edema with significant pleural effusion and underwent bilateral thoracentesis during admission. She was deemed stable for discharge 10/23/2018. She had the following studies: 1. 11/14/18 Echo- Left atrium is mildly dilated. Mild . Severe MR. RVSP is >60mmHg. Mild concentric LVH. LV systolic function is moderately to severely reduced, EF 25-30%. 2. 11/20/18 Echo- Limited views. LV systolic function midly reduced. EF 40-45%. 3. 03/19/19 Echo- borderline LV dilation. Moderate LV systolic dysfunction with EF 40-45%. Type 1 left ventricular diastolic dysfunction. Mild left atrial dilation. Moderate calcific aortic stenosis. Mild mitral regurgitation. Mild tricuspid regurgitation. Mildly elevated RVSP. Compared to 2017, aortic stenosis has worsened. 4. 09/04/19 Echo- Moderate to severe left ventricular systolic dysfunction, EF 30-35%. Moderate-severe aortic stenosis. Trace AR, Moderate MR, Moderate TR, Moderately elevated RVSP. 5. 05/2019 Cath- New severe mid circumflex 80% stenosis. Moderate multivessel non-obstructive CAD-30% ostial LM- 50% ostial circumflex- 50% ostial RCA- Widely patent LAD stents. Elevated LVEDP - 29. Successful PCI of mid circumflex with single NATY (2.75 x 18 Shahid). 6. 12/11/19 Echo: Mildly dilated LV with normal thickness. LVEF 25-30% with wall motion abnormalities. s/p TAVR with expected gradients. Moderate MR. Grade II diastolic dysfunction. Moderate pulm HTN, PASP 55-60 mmHg. Trace pericardial ef fusion. 6. 01/10/20 Cath- Severe left ostial main stenosis, moderate ostial circumflex, OM1 disease. Widely patent ostial RCA, LAD, and mid circumflex stents. 7. 03/30/20 Echo: LV normal size. EF 20-25%. Mild concentric LVH. Grade III diastolic dysfunction. Moderate MR. Large left pleural effusion. Well seated aortic valve. 8. 10/24/20 Echo: Mild dilation of LV and systolic dysfunction. EF 40-45%. TAVR. Moderate TR/MR. Mildly elevated RVSP. 9. 10/16/21 Echo: LV systolic function mildly reduced. Global hypokinesis of the LV. EF 40%. Prosthetic aortic valve is well-seated with normal gradient. Mod erate MR/TR. 10. 11/26/21 Cardioversion 11. 12/22/22 Echo: Lv systolic function is mildly reduced. EF 40-45%. Mild global hypokinesis. Bioprosthetic aortic valve with mild stenosis. Moderate MR. Left at rium moderately dilated. RVSP elevated 30-40 mmHg. Ivc mildly dilated. 12. 12/18/23 Echo: LV borderline dilated. LV function mild to moderately reduced. EF 40-45%. RV normal size/function. Moderate to severe MR. RVSP elevated 50-60 mmHg. IVC moderately dilated. Admitted 03/29/20 through 04/05/20 for acute exacerbation of CHF with pleural effusion. She presented with progressive dyspnea and hypoxia. Large left pleural effusion noted on CXR. She was initiated on IV diuretics. She was negative more than 3 L during admission. She underwent right thoracentesis on 04/02/20 for 1700 ml. She also underwent left thoracentesis with Dr. Baxter for 850 ml. Left side appeared transudative. She was discharged on Bumex 1 mg BID. Admitted for upgrade to biventricular ICD on 04/30/20. Procedure was tolerated w ell and she was discharged to home. She has since followed up with pulmonology as well as primary care. Admitted 10/15/21 through 10/20/21 for CHF exacerbation. She presented with worsening shortness of breath. She admitted to some dietary indiscretion. She tried increasing her home regimen without much relief. BNP 5971. EF 40-45%. h Admitted 11/27/21 through 12/02/21 for bilateral knee pain sp fall. She was cardioverted during this admission on 11/26/[address] Sanchez. Volume status was stable. She was discharged on her home medications with home nursing. Admitted 06/10/22 through 06/16/22 for acute on chronic HFrEF. She presented with increasing lower extremity edema and orthopnea despite escalation of her outpatient diuretic regimen. CXR consistent with mild congestive failure and R>L pleural effusions. She was initiated on Bumex 2 mg IV BID with good clinical response. Patient was discharged on her home dose of Bumex 1 mg BID. She was advised to increase to 2 mg BID PRN. She was re-admitted 07/08/22 through 07/11/22 for CHF exacerbation, pleural effusion, and TRACY. Patient presented to the ED with progressive dyspnea, despite thoracentesis 48 hours prior. CXR confirmed worsening pulmonary edema. She was treated with aggressive IV antibiotics. She was also initiated on Entresto. She was discharged home on Bumex 2 mg BID. Carvedilol was reduced to 3.125 mg daily. She was admitted from 12/18/22 through 12/23/22 for nausea/vomiting. She was hypovolemic. Entresto and Bumex held initially. Bumex resumed but Entresto remains on hold. She was recently evaluated on 10/20/[address] Cueva. She was near euvolemic. She continued Bumex 1 mg BID. Resume 2mg for weight > 190 lb. Dry weight adjusted to 187 lb. Admitted from 01/15/23 through 01/17/23 for orthostasis. She presented with dyspnea and urgent care recommended she go to the ED. Orthostatic BPs were positive on admission. Entresto discontinued. Diuretcs held. Dyspnea felt to be orthotatic and poor perfusion. CXR without evidence of volume overload. Bumex PRN on discharge. Shew as most recently evaluated on 07/17/23. She was well compensated. Continue Bumex 1 mg BID. No changes. She saw nephrology in the interim. Bumex increased to 2 mg am/1 mg pm on 07/27/23. She was hospitalized from 11/01/23 through 11/02/23 for ambulatory dysfunction/ right knee pain. No CHF exacerbation. She saw Dr. Cueva on 12/18/23 and there was concern for unstable angina. She had been having weight gain, GOMEZ for several weeks but developed chest pain on the way to her appointment. She was sent to the ED via EMS for further workup. Troponin was at the low end of her normal. EKG without changes. She was hypervolemic and initiated on IV Bumex 3 mg BID. Digoxin discontinued. Carvedilol increased to 6.25 mg BID. She was discharged on her home dose of Bumex 1 mg BID. She was most recently evaluated on 01/16/24. She was hypervolemic with significant dyspnea, even at rest. She was referred to the ED and admitted for treatment. She responded well to IV diuretics. She developed some lightheadedness and was transitioned back to oral. She was discharged on Bumex 2 mg BID. Allergies Allergy/AdvReac Type Severity Reaction Status Date / Time adhesive Allergy Intermediate REDNESS Verified 01/30/24 09:26 AND IRRITATION FROM PAIN PATCH, TAPE latex Allergy Intermediate ALLERGIC Verified 01/30/24 09:26 TO LATEX TAPE/RASH/ITCHING morphine Allergy Intermediate swelling Verified 01/30/24 09:26 nausea vomiting olmesartan Allergy Unknown UNKNOWN Verified 01/30/24 09:26 benzonatate AdvReac Intermediate confusion Verified 01/30/24 09:26 [From Giovanni Brennan] dulaglutide [From Trulicity] AdvReac Intermediate AFFECTS Verified 01/30/24 09:26 MUSCLES exenatide [From Byetta] AdvReac Intermediate Diarrhea Verified 01/30/24 09:26 ezetimibe AdvReac Intermediate MUSCLE Verified 01/30/24 09:26 ACHES glipizide AdvReac Intermediate Diarrhea Verified 01/30/24 09:26 glyburide AdvReac Intermediate Diarrhea Verified 01/30/24 09:26 lisinopril AdvReac Intermediate LIGHTHEADED Verified 01/30/24 09:26 AND DIZZY losartan AdvReac Intermediate dizziness Verified 01/30/24 09:26 metformin AdvReac Intermediate Diarrhea Verified 01/30/24 09:26 pioglitazone AdvReac Intermediate DIARRHEA Verified 01/30/24 09:26 NAUSEA sitagliptin [From Januvia] AdvReac Intermediate Diarrhea Verified 01/30/24 09:26 Qsmqgsr-NJR-RaH Reductase AdvReac Intermediate myalgias Verified 01/30/24 09:26 Inhibitor and [Sannkkx-Ncw-Fyb Reductase weakness Inhibitor] aspirin AdvReac Mild GI SYMPTOMS Verified 01/30/24 09:26 Home Medications Medication Instructions Recorded Confirmed Type vitamin E 268 mg (400 unit) capsule 400 unit PO QAM 03/29/20 01/31/24 History cholecalciferol (vitamin D3) 25 1,000 unit PO QAM 05/17/21 01/31/24 History mcg (1,000 unit) capsule trazodone 50 mg tablet 50 mg PO HS PRN insomnia #90 tabs 06/23/22 01/31/24 Rx insulin aspar prt-insulin aspart 15 - 30 unit (0.15 - 0.3 mL) 11/28/22 01/31/24 Rx 100 unit/mL (70-30) subcutaneous subcut AMPM #30 mL soln (Novolog Mix 70-30 U-100 Insuln) polyethylene glycol 3350 17 17 g PO TID #119 grams 12/23/22 01/31/24 Rx gram/dose oral powder (Miralax) sennosides 8.6 mg capsule (senna) 8.6 mg PO DAILY PRN constipation 12/23/22 01/31/24 Rx #10 caps flash glucose scanning reader #6 ea 07/24/23 01/31/24 Rx (FreeStyle Rossy 14 Day Tyler) potassium gluconate 595 mg (99 mg) 595 mg PO DAILY PRN With Bumex 08/25/23 01/31/24 History tablet levothyroxine 75 mcg tablet 75 mcg PO QAM #90 tabs 10/27/23 01/31/24 Rx apixaban 2.5 mg tablet (Eliquis) 2.5 mg PO BID #180 tabs 10/30/23 01/31/24 Rx calcitriol 0.25 mcg capsule 0.25 mcg PO 3XWK #12 caps 10/30/23 01/31/24 Rx (Rocaltrol) ranolazine 500 mg tablet,extended 500 mg PO BID #180 tabs 11/14/23 01/31/24 Rx release,12 hr flash glucose sensor (FreeStyle #1 ea 11/24/23 01/31/24 Rx Rossy 14 Day Sensor kit) carvedilol 3.125 mg tablet 3.125 mg PO BID #180 tabs 12/28/23 01/31/24 Rx ondansetron HCl 8 mg tablet 8 mg PO Q8H PRN nausea and 01/01/24 01/31/24 Rx vomiting #30 tabs sertraline 50 mg tablet 75 mg (1.5 x 50 mg) PO DAILY #135 01/01/24 01/31/24 Rx tabs magnesium oxide 400 mg (241.3 mg 400 mg PO QPM #30 tabs 01/22/24 01/31/24 Rx magnesium) tablet insulin syringe-needle U-100 0.3 #100 ea 01/23/24 01/31/24 Rx mL 31 gauge x 02/28" ticagrelor 60 mg tablet (Brilinta) 60 mg PO BID #90 tabs 01/26/24 01/31/24 Rx bumetanide 2 mg tablet 4 mg (2 x 2 mg) PO BID #200 tabs 01/30/24 01/31/24 Rx pantoprazole 40 mg tablet,delayed 40 mg PO BID #180 tabs 01/30/24 01/31/24 Rx release (Protonix) spironolactone 50 mg tablet 50 mg PO DAILY #30 tabs 01/30/24 01/31/24 Rx gabapentin 300 mg capsule 300 mg PO TID 01/31/24 01/31/24 History Patient History Medical History (Updated 02/05/24 @ 21:27 by Casandra Smart DNP) Palliative care by specialist Advanced care planning/counseling discussion Muscular deconditioning Weakness generalized Dyspnea and respiratory abnormalities Osteoarthritis Orthostasis Hyperlipidemia Acute kidney injury superimposed on chronic kidney disease Non-ST elevation UT (NSTEMI) Depression Nausea and vomiting after administration of anesthetic agent severe PONV s/p Left carotid surgery 09/27/21 at [facility] PAF (paroxysmal atrial fibrillation) History of CVA (cerebrovascular accident) Had RUE weakness and numbness after 09/17/21 breast surgery- CT scan of head negative; unable to do MRI due to ICD Per PCP records 10/22/21= "[place] her post op RUE sx related to possible small stroke/TIA" Breast cancer, right Right breast mastectomy 09/17/21 at [facility] Subclavian artery stenosis Rheumatoid arthritis No medications Followed with rheum in the past- no recent issues Chronic kidney disease STAGE IV-F/U DR SALINAS Diabetes mellitus, type 2 Glucose fluctuates SOB (shortness of breath) on exertion DVT (deep venous thrombosis) LOWER LEG 2019 Ischemic cardiomyopathy Insomnia Biventricular ICD (implantable cardioverter-defibrillator) in place (04/30/20) [employer] implanted 04/30/2020. Capped right ventricular pacing lead Last check 09/2021 Antiplatelet or antithrombotic long-term use Secondary hyperparathyroidism of renal origin Anemia due to chronic kidney disease Chronic obstructive pulmonary disease, unspecified Breathing stable CAD (coronary artery disease) F/U DR CUEVA S/p NATY x 1 to Cx in 2019; NATY to ostial LM 01/10/20 Aortic stenosis, severe S/p TAVR 10/2019 PAD (peripheral artery disease) S/p NETWORK CABLE INSTALLER and stenting of right SFA, and NETWORK CABLE INSTALLER of left SFA and common femoral artery Spondylosis Pulmonary hypertension RVSP 50-60mmHg on 12/2023 ECHO NSTEMI (non-ST elevated myocardial infarction) Most recent 12/2019 (mild per patient) Chronic combined systolic and diastolic CHF (congestive heart failure) EF 40% per 10/16/21 ECHO GERD (gastroesophageal reflux disease) Hypothyroidism Left bundle branch block Bilateral carotid artery stenosis H/o bilateral CEAs in 2016 Per 07/2021 vascular note- carotid ultrasound from office visit showed patent right CEA with velocities suggesting 50-59% stenosis restenosis Patent left CEA with velocities suggesting 99% restenosis - had re-do of left CEA 09/27/21 Surgical History S/P AV hiren ablation (06/30/22) H/O heart artery stent H/O colonoscopy History of left-sided carotid endarterectomy (09/27/21) redo L CEA, Dr Bateman Status post partial mastectomy of right breast (09/17/21) 09/17/21 - Done under [place] with LMA #4. Atraumatic LMA insertion. Magnet placed secondary to pacemaker. Right Breast Partial Mastectomy with [place] Pipelaying Fitter Localization, Right Axillary Smilax Lymph Node Biopsy(Right) - Hua Acosta DO History of cardiac cath TOTAL 6? STENTS- 2018 and 2019 S/P coronary artery stent placement (10/2018) NATY prox mid LAD S/P coronary artery stent placement (10/2017) NATY to mid LAD S/P carotid endarterectomy B/l 2016 S/P thoracentesis (03/2020) b/l d/t CHF S/P angioplasty (02/03/21) NETWORK CABLE INSTALLER L SFA 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) History of oophorectomy History of hysterectomy History of cholecystectomy H/O: section History of cataract surgery right and left History of appendectomy Family History Daughter Coronary heart disease Diabetes Mother Diabetes Family history of hypercholesterolemia Myocardial infarction Hypertension Stroke Brother Colorectal cancer Father Accident Brother Diabetes Family/Other Myocardial infarction Son Coronary heart disease Hypertension Other Pacemaker Denies family history of Ovarian cancer Prostate cancer Breast cancer Social History Smoking Status: Never smoker Second Hand Exposure: No; Do You Dip or Chew Tobacco: No; Hx Alcohol Use: No Hx Substance Use: No Preferred Language: French Communication Ability: Effective Visual Impairment: No Limitations Hearing Ability: Hard of Hearing After School Driver Required: No Beliefs That Will Affect Care: None marital status: / marital status details: passed 2000 Current Living Situation: Alone current occupational status: retired 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 No acute respiratory distress is noted. There is mild bitemporal wasting. She is awake alert and oriented x 3. Neck is supple without any overt stridor. Her pupils are equal round and reactive to light. Extraocular movements are intact. Respiratory effort is comfortable at rest but there is some mild conversational dyspnea noted. Heart tones are S1-S2, there is a grade 3 out of 6 to 4 out of 6 systolic murmur noted. Abdomen is soft, bowel sounds present throughout, nontender to palpation. There is +1 edema to the lower extremities. Her skin is pale and warm to touch. Nailbeds are slightly dusky. Strength is equal bilaterally. 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 Results & Data Vital Signs (Past 12 Hours) Vital Signs Temp Pulse Pulse Resp BP Pulse Ox O2 Del Method 02/05/24 19:15 36.4 C L 76 18 116/67 94 Room Air 02/05/24 15:04 36.7 C 74 18 107/50 L 91 Room Air 02/05/24 14:00 71 02/05/24 12:00 36.6 C 75 18 107/60 91 Room Air Laboratory Results 02/05/24 02/05/24 02/05/24 Range/Units 21:08 17:08 12:00 WBC (4.8-10.8) K/ul RBC (4.20-5.40) M/uL Hgb (12.0-16.0) g/dl Hct (37.0-47.0) % MCV (80.0-100.0) fL MCH (25.0-34.0) pg MCHC (32.0-36.0) g/dL RDW Std Deviation (36.4-46.3) fL RDW Coeff of Manuela (11.5-14.5) % Plt Count (130-400) K/uL MPV (9.4-12.4) fL Immature Gran % (Auto) % Neut % (Auto) % Lymph % (Auto) % Kerr % (Auto) % Eos % (Auto) % Baso % (Auto) % Neut # (Auto) (1.40-6.50) K/uL Lymph # (Auto) (1.20-3.40) K/uL Kerr # (Auto) (0.11-0.59) K/uL Eos # (Auto) (0.00-0.50) K/uL Baso # (Auto) (0.00-0.20) K/uL Immature Gran # (Auto) (0.01-0.20) K/uL PT (9.0-12.0) Seconds INR (0.9-1.1) APTT (21-31) Seconds PTT Ratio Sodium (136-145) mmol/L Potassium (3.5-5.1) mmol/L Chloride (98-107) mmol/L Carbon Dioxide (21-32) mmol/L Anion Gap (3-11) BUN (6-23) mg/dl Creatinine (0.6-1.2) mg/dl Est Cr Clr Drug Dosing ml/min Est GFR ( Amer) ml/min Est GFR (Non-Af Amer) ml/min BUN/Creatinine Ratio (10-20) Glucose (70-99(Fasting)) mg/dl POC Glucose 269 H 147 H 210 H (70-99) mg/dl Calcium (8.6-10.3) mg/dl Magnesium (1.7-2.4) mg/dl Total Bilirubin (0.2-1.0) mg/dl AST (13-39) U/L ALT (7-52) U/L Alkaline Phosphatase (34-104) U/L Troponin I High Sens (0-14) pg/ml B-Natriuretic Peptide (0-100) pg/ml Total Protein (6.0-8.3) gm/dl Albumin (3.4-5.0) gm/dl Globulin (2.5-4.0) gm/dl Albumin/Globulin Ratio (0.9-2) Urine Color Urine Appearance (Clear) Urine pH (4.5-7.5) Ur Specific [place] (1.000-1.030) Urine Protein (Negative) Urine Glucose (UA) (Negative) Urine Ketones (Negative) Urine Blood (Negative) Urine Nitrite (Negative) Urine Bilirubin (Negative) Urine Urobilinogen (Negative) Ur Leukocyte Esterase (Negative) 02/05/24 02/05/24 02/04/24 Range/Units 07:36 05:55 20:30 WBC (4.8-10.8) K/ul RBC (4.20-5.40) M/uL Hgb (12.0-16.0) g/dl Hct (37.0-47.0) % MCV (80.0-100.0) fL MCH (25.0-34.0) pg MCHC (32.0-36.0) g/dL RDW Std Deviation (36.4-46.3) fL RDW Coeff of Manuela (11.5-14.5) % Plt Count (130-400) K/uL MPV (9.4-12.4) fL Immature Gran % (Auto) % Neut % (Auto) % Lymph % (Auto) % Kerr % (Auto) % Eos % (Auto) % Baso % (Auto) % Neut # (Auto) (1.40-6.50) K/uL Lymph # (Auto) (1.20-3.40) K/uL Kerr # (Auto) (0.11-0.59) K/uL Eos # (Auto) (0.00-0.50) K/uL Baso # (Auto) (0.00-0.20) K/uL Immature Gran # (Auto) (0.01-0.20) K/uL PT (9.0-12.0) Seconds INR (0.9-1.1) APTT (21-31) Seconds PTT Ratio Sodium 133 L (136-145) mmol/L Potassium 4.4 (3.5-5.1) mmol/L Chloride 97 L (98-107) mmol/L Carbon Dioxide 29 (21-32) mmol/L Anion Gap 7 (3-11) BUN 61 H (6-23) mg/dl Creatinine 2.54 H D (0.6-1.2) mg/dl Est Cr Clr Drug Dosing 18.0 ml/min Est GFR ( Amer) 19.4 ml/min Est GFR (Non-Af Amer) 16.7 ml/min BUN/Creatinine Ratio 24.0 H (10-20) Glucose 174 H (70-99(Fasting)) mg/dl POC Glucose 174 H 170 H (70-99) mg/dl Calcium 9.1 (8.6-10.3) mg/dl Magnesium (1.7-2.4) mg/dl Total Bilirubin (0.2-1.0) mg/dl AST (13-39) U/L ALT (7-52) U/L Alkaline Phosphatase (34-104) U/L Troponin I High Sens (0-14) pg/ml B-Natriuretic Peptide (0-100) pg/ml Total Protein (6.0-8.3) gm/dl Albumin (3.4-5.0) gm/dl Globulin (2.5-4.0) gm/dl Albumin/Globulin Ratio (0.9-2) Urine Color Urine Appearance (Clear) Urine pH (4.5-7.5) Ur Specific [place] (1.000-1.030) Urine Protein (Negative) Urine Glucose (UA) (Negative) Urine Ketones (Negative) Urine Blood (Negative) Urine Nitrite (Negative) Urine Bilirubin (Negative) Urine Urobilinogen (Negative) Ur Leukocyte Esterase (Negative) 02/04/24 02/04/24 02/04/24 Range/Units 16:57 11:51 07:58 WBC (4.8-10.8) K/ul RBC (4.20-5.40) M/uL Hgb (12.0-16.0) g/dl Hct (37.0-47.0) % MCV (80.0-100.0) fL MCH (25.0-34.0) pg MCHC (32.0-36.0) g/dL RDW Std Deviation (36.4-46.3) fL RDW Coeff of Manuela (11.5-14.5) % Plt Count (130-400) K/uL MPV (9.4-12.4) fL Immature Gran % (Auto) % Neut % (Auto) % Lymph % (Auto) % Kerr % (Auto) % Eos % (Auto) % Baso % (Auto) % Neut # (Auto) (1.40-6.50) K/uL Lymph # (Auto) (1.20-3.40) K/uL Kerr # (Auto) (0.11-0.59) K/uL Eos # (Auto) (0.00-0.50) K/uL Baso # (Auto) (0.00-0.20) K/uL Immature Gran # (Auto) (0.01-0.20) K/uL PT (9.0-12.0) Seconds INR (0.9-1.1) APTT (21-31) Seconds PTT Ratio Sodium (136-145) mmol/L Potassium (3.5-5.1) mmol/L Chloride (98-107) mmol/L Carbon Dioxide (21-32) mmol/L Anion Gap (3-11) BUN (6-23) mg/dl Creatinine (0.6-1.2) mg/dl Est Cr Clr Drug Dosing ml/min Est GFR ( Amer) ml/min Est GFR (Non-Af Amer) ml/min BUN/Creatinine Ratio (10-20) Glucose (70-99(Fasting)) mg/dl POC Glucose 230 H 208 H 159 H (70-99) mg/dl Calcium (8.6-10.3) mg/dl Magnesium (1.7-2.4) mg/dl Total Bilirubin (0.2-1.0) mg/dl AST (13-39) U/L ALT (7-52) U/L Alkaline Phosphatase (34-104) U/L Troponin I High Sens (0-14) pg/ml B-Natriuretic Peptide (0-100) pg/ml Total Protein (6.0-8.3) gm/dl Albumin (3.4-5.0) gm/dl Globulin (2.5-4.0) gm/dl Albumin/Globulin Ratio (0.9-2) Urine Color Urine Appearance (Clear) Urine pH (4.5-7.5) Ur Specific [place] (1.000-1.030) Urine Protein (Negative) Urine Glucose (UA) (Negative) Urine Ketones (Negative) Urine Blood (Negative) Urine Nitrite (Negative) Urine Bilirubin (Negative) Urine Urobilinogen (Negative) Ur Leukocyte Esterase (Negative) 02/04/24 02/03/24 02/03/24 Range/Units 04:12 20:09 17:03 WBC (4.8-10.8) K/ul RBC (4.20-5.40) M/uL Hgb (12.0-16.0) g/dl Hct (37.0-47.0) % MCV (80.0-100.0) fL MCH (25.0-34.0) pg MCHC (32.0-36.0) g/dL RDW Std Deviation (36.4-46.3) fL RDW Coeff of Manuela (11.5-14.5) % Plt Count (130-400) K/uL MPV (9.4-12.4) fL Immature Gran % (Auto) % Neut % (Auto) % Lymph % (Auto) % Kerr % (Auto) % Eos % (Auto) % Baso % (Auto) % Neut # (Auto) (1.40-6.50) K/uL Lymph # (Auto) (1.20-3.40) K/uL Kerr # (Auto) (0.11-0.59) K/uL Eos # (Auto) (0.00-0.50) K/uL Baso # (Auto) (0.00-0.20) K/uL Immature Gran # (Auto) (0.01-0.20) K/uL PT (9.0-12.0) Seconds INR (0.9-1.1) APTT (21-31) Seconds PTT Ratio Sodium 133 L (136-145) mmol/L Potassium 4.7 (3.5-5.1) mmol/L Chloride 95 L (98-107) mmol/L Carbon Dioxide 31 (21-32) mmol/L Anion Gap 7 (3-11) BUN 66 H (6-23) mg/dl Creatinine 2.90 H (0.6-1.2) mg/dl Est Cr Clr Drug Dosing 15.8 ml/min Est GFR ( Amer) 16.5 ml/min Est GFR (Non-Af Amer) 14.3 ml/min BUN/Creatinine Ratio 22.8 H (10-20) Glucose 176 H (70-99(Fasting)) mg/dl POC Glucose 157 H 167 H (70-99) mg/dl Calcium 9.1 (8.6-10.3) mg/dl Magnesium (1.7-2.4) mg/dl Total Bilirubin (0.2-1.0) mg/dl AST (13-39) U/L ALT (7-52) U/L Alkaline Phosphatase (34-104) U/L Troponin I High Sens (0-14) pg/ml B-Natriuretic Peptide (0-100) pg/ml Total Protein (6.0-8.3) gm/dl Albumin (3.4-5.0) gm/dl Globulin (2.5-4.0) gm/dl Albumin/Globulin Ratio (0.9-2) Urine Color Urine Appearance (Clear) Urine pH (4.5-7.5) Ur Specific [place] (1.000-1.030) Urine Protein (Negative) Urine Glucose (UA) (Negative) Urine Ketones (Negative) Urine Blood (Negative) Urine Nitrite (Negative) Urine Bilirubin (Negative) Urine Urobilinogen (Negative) Ur Leukocyte Esterase (Negative) 02/03/24 02/03/24 02/03/24 Range/Units 12:17 08:10 06:14 WBC 7.49 (4.8-10.8) K/ul RBC 3.66 L (4.20-5.40) M/uL Hgb 9.8 L (12.0-16.0) g/dl Hct 31.7 L (37.0-47.0) % MCV 86.6 (80.0-100.0) fL MCH 26.8 (25.0-34.0) pg MCHC 30.9 L (32.0-36.0) g/dL RDW Std Deviation 50.4 H (36.4-46.3) fL RDW Coeff of Manuela 15.9 H (11.5-14.5) % Plt Count 294 (130-400) K/uL MPV 10.7 (9.4-12.4) fL Immature Gran % (Auto) 0.4 % Neut % (Auto) 51.6 % Lymph % (Auto) 31.5 % Kerr % (Auto) 13.6 % Eos % (Auto) 2.4 % Baso % (Auto) 0.5 % Neut # (Auto) 3.86 (1.40-6.50) K/uL Lymph # (Auto) 2.36 (1.20-3.40) K/uL Kerr # (Auto) 1.02 H (0.11-0.59) K/uL Eos # (Auto) 0.18 (0.00-0.50) K/uL Baso # (Auto) 0.04 (0.00-0.20) K/uL Immature Gran # (Auto) 0.03 (0.01-0.20) K/uL PT (9.0-12.0) Seconds INR (0.9-1.1) APTT (21-31) Seconds PTT Ratio Sodium 134 L (136-145) mmol/L Potassium 4.5 (3.5-5.1) mmol/L Chloride 96 L (98-107) mmol/L Carbon Dioxide 28 (21-32) mmol/L Anion Gap 10 (3-11) BUN 62 H (6-23) mg/dl Creatinine 3.11 H (0.6-1.2) mg/dl Est Cr Clr Drug Dosing 14.7 ml/min Est GFR ( Amer) 15.2 ml/min Est GFR (Non-Af Amer) 13.1 ml/min BUN/Creatinine Ratio 19.9 (10-20) Glucose 155 H (70-99(Fasting)) mg/dl POC Glucose 243 H 141 H (70-99) mg/dl Calcium 9.2 (8.6-10.3) mg/dl Magnesium 2.3 (1.7-2.4) mg/dl Total Bilirubin (0.2-1.0) mg/dl AST (13-39) U/L ALT (7-52) U/L Alkaline Phosphatase (34-104) U/L Troponin I High Sens (0-14) pg/ml B-Natriuretic Peptide (0-100) pg/ml Total Protein (6.0-8.3) gm/dl Albumin (3.4-5.0) gm/dl Globulin (2.5-4.0) gm/dl Albumin/Globulin Ratio (0.9-2) Urine Color Urine Appearance (Clear) Urine pH (4.5-7.5) Ur Specific [place] (1.000-1.030) Urine Protein (Negative) Urine Glucose (UA) (Negative) Urine Ketones (Negative) Urine Blood (Negative) Urine Nitrite (Negative) Urine Bilirubin (Negative) Urine Urobilinogen (Negative) Ur Leukocyte Esterase (Negative) 02/02/24 02/02/24 02/02/24 Range/Units 20:09 16:48 12:10 WBC (4.8-10.8) K/ul RBC (4.20-5.40) M/uL Hgb (12.0-16.0) g/dl Hct (37.0-47.0) % MCV (80.0-100.0) fL MCH (25.0-34.0) pg MCHC (32.0-36.0) g/dL RDW Std Deviation (36.4-46.3) fL RDW Coeff of Manuela (11.5-14.5) % Plt Count (130-400) K/uL MPV (9.4-12.4) fL Immature Gran % (Auto) % Neut % (Auto) % Lymph % (Auto) % Kerr % (Auto) % Eos % (Auto) % Baso % (Auto) % Neut # (Auto) (1.40-6.50) K/uL Lymph # (Auto) (1.20-3.40) K/uL Kerr # (Auto) (0.11-0.59) K/uL Eos # (Auto) (0.00-0.50) K/uL Baso # (Auto) (0.00-0.20) K/uL Immature Gran # (Auto) (0.01-0.20) K/uL PT (9.0-12.0) Seconds INR (0.9-1.1) APTT (21-31) Seconds PTT Ratio Sodium (136-145) mmol/L Potassium (3.5-5.1) mmol/L Chloride (98-107) mmol/L Carbon Dioxide (21-32) mmol/L Anion Gap (3-11) BUN (6-23) mg/dl Creatinine (0.6-1.2) mg/dl Est Cr Clr Drug Dosing ml/min Est GFR ( Amer) ml/min Est GFR (Non-Af Amer) ml/min BUN/Creatinine Ratio (10-20) Glucose (70-99(Fasting)) mg/dl POC Glucose 202 H 167 H 180 H (70-99) mg/dl Calcium (8.6-10.3) mg/dl Magnesium (1.7-2.4) mg/dl Total Bilirubin (0.2-1.0) mg/dl AST (13-39) U/L ALT (7-52) U/L Alkaline Phosphatase (34-104) U/L Troponin I High Sens (0-14) pg/ml B-Natriuretic Peptide (0-100) pg/ml Total Protein (6.0-8.3) gm/dl Albumin (3.4-5.0) gm/dl Globulin (2.5-4.0) gm/dl Albumin/Globulin Ratio (0.9-2) Urine Color Urine Appearance (Clear) Urine pH (4.5-7.5) Ur Specific [place] (1.000-1.030) Urine Protein (Negative) Urine Glucose (UA) (Negative) Urine Ketones (Negative) Urine Blood (Negative) Urine Nitrite (Negative) Urine Bilirubin (Negative) Urine Urobilinogen (Negative) Ur Leukocyte Esterase (Negative) 02/02/24 02/02/24 02/02/24 Range/Units 08:26 03:48 00:53 WBC 7.66 (4.8-10.8) K/ul RBC 3.37 L (4.20-5.40) M/uL Hgb 9.1 L (12.0-16.0) g/dl Hct 29.5 L (37.0-47.0) % MCV 87.5 (80.0-100.0) fL MCH 27.0 (25.0-34.0) pg MCHC 30.8 L (32.0-36.0) g/dL RDW Std Deviation 50.5 H (36.4-46.3) fL RDW Coeff of Manuela 15.9 H (11.5-14.5) % Plt Count 293 (130-400) K/uL MPV 11.1 (9.4-12.4) fL Immature Gran % (Auto) 0.3 % Neut % (Auto) 57.9 % Lymph % (Auto) 26.1 % Kerr % (Auto) 13.1 % Eos % (Auto) 2.1 % Baso % (Auto) 0.5 % Neut # (Auto) 4.44 (1.40-6.50) K/uL Lymph # (Auto) 2.00 (1.20-3.40) K/uL Kerr # (Auto) 1.00 H (0.11-0.59) K/uL Eos # (Auto) 0.16 (0.00-0.50) K/uL Baso # (Auto) 0.04 (0.00-0.20) K/uL Immature Gran # (Auto) 0.02 (0.01-0.20) K/uL PT (9.0-12.0) Seconds INR (0.9-1.1) APTT (21-31) Seconds PTT Ratio Sodium 132 L (136-145) mmol/L Potassium 4.7 (3.5-5.1) mmol/L Chloride 94 L (98-107) mmol/L Carbon Dioxide 29 (21-32) mmol/L Anion Gap 9 (3-11) BUN 62 H (6-23) mg/dl Creatinine 3.00 H (0.6-1.2) mg/dl Est Cr Clr Drug Dosing 15.8 ml/min Est GFR ( Amer) 15.9 ml/min Est GFR (Non-Af Amer) 13.7 ml/min BUN/Creatinine Ratio 20.7 H (10-20) Glucose 203 H (70-99(Fasting)) mg/dl POC Glucose 182 H 144 H (70-99) mg/dl Calcium 8.9 (8.6-10.3) mg/dl Magnesium 2.3 (1.7-2.4) mg/dl Total Bilirubin (0.2-1.0) mg/dl AST (13-39) U/L ALT (7-52) U/L Alkaline Phosphatase (34-104) U/L Troponin I High Sens (0-14) pg/ml B-Natriuretic Peptide (0-100) pg/ml Total Protein (6.0-8.3) gm/dl Albumin (3.4-5.0) gm/dl Globulin (2.5-4.0) gm/dl Albumin/Globulin Ratio (0.9-2) Urine Color Urine Appearance (Clear) Urine pH (4.5-7.5) Ur Specific [place] (1.000-1.030) Urine Protein (Negative) Urine Glucose (UA) (Negative) Urine Ketones (Negative) Urine Blood (Negative) Urine Nitrite (Negative) Urine Bilirubin (Negative) Urine Urobilinogen (Negative) Ur Leukocyte Esterase (Negative) 02/01/24 02/01/24 02/01/24 Range/Units 20:24 16:58 11:53 WBC (4.8-10.8) K/ul RBC (4.20-5.40) M/uL Hgb (12.0-16.0) g/dl Hct (37.0-47.0) % MCV (80.0-100.0) fL MCH (25.0-34.0) pg MCHC (32.0-36.0) g/dL RDW Std Deviation (36.4-46.3) fL RDW Coeff of Manuela (11.5-14.5) % Plt Count (130-400) K/uL MPV (9.4-12.4) fL Immature Gran % (Auto) % Neut % (Auto) % Lymph % (Auto) % Kerr % (Auto) % Eos % (Auto) % Baso % (Auto) % Neut # (Auto) (1.40-6.50) K/uL Lymph # (Auto) (1.20-3.40) K/uL Kerr # (Auto) (0.11-0.59) K/uL Eos # (Auto) (0.00-0.50) K/uL Baso # (Auto) (0.00-0.20) K/uL Immature Gran # (Auto) (0.01-0.20) K/uL PT (9.0-12.0) Seconds INR (0.9-1.1) APTT (21-31) Seconds PTT Ratio Sodium (136-145) mmol/L Potassium (3.5-5.1) mmol/L Chloride (98-107) mmol/L Carbon Dioxide (21-32) mmol/L Anion Gap (3-11) BUN (6-23) mg/dl Creatinine (0.6-1.2) mg/dl Est Cr Clr Drug Dosing ml/min Est GFR ( Amer) ml/min Est GFR (Non-Af Amer) ml/min BUN/Creatinine Ratio (10-20) Glucose (70-99(Fasting)) mg/dl POC Glucose 225 H 215 H 206 H (70-99) mg/dl Calcium (8.6-10.3) mg/dl Magnesium (1.7-2.4) mg/dl Total Bilirubin (0.2-1.0) mg/dl AST (13-39) U/L ALT (7-52) U/L Alkaline Phosphatase (34-104) U/L Troponin I High Sens (0-14) pg/ml B-Natriuretic Peptide (0-100) pg/ml Total Protein (6.0-8.3) gm/dl Albumin (3.4-5.0) gm/dl Globulin (2.5-4.0) gm/dl Albumin/Globulin Ratio (0.9-2) Urine Color Urine Appearance (Clear) Urine pH (4.5-7.5) Ur Specific [place] (1.000-1.030) Urine Protein (Negative) Urine Glucose (UA) (Negative) Urine Ketones (Negative) Urine Blood (Negative) Urine Nitrite (Negative) Urine Bilirubin (Negative) Urine Urobilinogen (Negative) Ur Leukocyte Esterase (Negative) 02/01/24 01/31/24 01/31/24 Range/Units 05:31 22:05 20:34 WBC 6.24 (4.8-10.8) K/ul RBC 3.48 L (4.20-5.40) M/uL Hgb 9.4 L (12.0-16.0) g/dl Hct 30.9 L (37.0-47.0) % MCV 88.8 (80.0-100.0) fL MCH 27.0 (25.0-34.0) pg MCHC 30.4 L (32.0-36.0) g/dL RDW Std Deviation 50.9 H (36.4-46.3) fL RDW Coeff of Manuela 15.7 H (11.5-14.5) % Plt Count 271 (130-400) K/uL MPV 11.0 (9.4-12.4) fL Immature Gran % (Auto) 0.3 % Neut % (Auto) 59.9 % Lymph % (Auto) 24.4 % Kerr % (Auto) 13.5 % Eos % (Auto) 1.4 % Baso % (Auto) 0.5 % Neut # (Auto) 3.74 (1.40-6.50) K/uL Lymph # (Auto) 1.52 (1.20-3.40) K/uL Kerr # (Auto) 0.84 H (0.11-0.59) K/uL Eos # (Auto) 0.09 (0.00-0.50) K/uL Baso # (Auto) 0.03 (0.00-0.20) K/uL Immature Gran # (Auto) 0.02 (0.01-0.20) K/uL PT (9.0-12.0) Seconds INR (0.9-1.1) APTT (21-31) Seconds PTT Ratio Sodium 135 L (136-145) mmol/L Potassium 4.7 (3.5-5.1) mmol/L Chloride 96 L (98-107) mmol/L Carbon Dioxide 29 (21-32) mmol/L Anion Gap 10 (3-11) BUN 56 H (6-23) mg/dl Creatinine 2.74 H (0.6-1.2) mg/dl Est Cr Clr Drug Dosing 17.3 ml/min Est GFR ( Amer) 17.7 ml/min Est GFR (Non-Af Amer) 15.3 ml/min BUN/Creatinine Ratio 20.4 H (10-20) Glucose 174 H (70-99(Fasting)) mg/dl POC Glucose 249 H (70-99) mg/dl Calcium 9.2 (8.6-10.3) mg/dl Magnesium 2.3 (1.7-2.4) mg/dl Total Bilirubin (0.2-1.0) mg/dl AST (13-39) U/L ALT (7-52) U/L Alkaline Phosphatase (34-104) U/L Troponin I High Sens (0-14) pg/ml B-Natriuretic Peptide (0-100) pg/ml Total Protein (6.0-8.3) gm/dl Albumin (3.4-5.0) gm/dl Globulin (2.5-4.0) gm/dl Albumin/Globulin Ratio (0.9-2) Urine Color Yellow Urine Appearance Clear (Clear) Urine pH 7.0 (4.5-7.5) Ur Specific [place] 1.009 (1.000-1.030) Urine Protein Negative (Negative) Urine Glucose (UA) Negative (Negative) Urine Ketones Negative (Negative) Urine Blood Negative (Negative) Urine Nitrite Negative (Negative) Urine Bilirubin Negative (Negative) Urine Urobilinogen Negative (Negative) Ur Leukocyte Esterase Negative (Negative) 01/31/24 01/31/24 01/31/24 Range/Units 17:15 16:39 13:44 WBC 9.18 (4.8-10.8) K/ul RBC 3.88 L (4.20-5.40) M/uL Hgb 10.5 L (12.0-16.0) g/dl Hct 34.3 L (37.0-47.0) % MCV 88.4 (80.0-100.0) fL MCH 27.1 (25.0-34.0) pg MCHC 30.6 L (32.0-36.0) g/dL RDW Std Deviation 51.5 H (36.4-46.3) fL RDW Coeff of Manuela 15.7 H (11.5-14.5) % Plt Count 351 (130-400) K/uL MPV 11.1 (9.4-12.4) fL Immature Gran % (Auto) 0.3 % Neut % (Auto) 59.8 % Lymph % (Auto) 25.7 % Kerr % (Auto) 11.4 % Eos % (Auto) 2.3 % Baso % (Auto) 0.5 % Neut # (Auto) 5.48 (1.40-6.50) K/uL Lymph # (Auto) 2.36 (1.20-3.40) K/uL Kerr # (Auto) 1.05 H (0.11-0.59) K/uL Eos # (Auto) 0.21 (0.00-0.50) K/uL Baso # (Auto) 0.05 (0.00-0.20) K/uL Immature Gran # (Auto) 0.03 (0.01-0.20) K/uL PT 12.4 H (9.0-12.0) Seconds INR 1.1 (0.9-1.1) APTT 30 (21-31) Seconds PTT Ratio 1.1 Sodium 133 L (136-145) mmol/L Potassium 5.0 (3.5-5.1) mmol/L Chloride 93 L (98-107) mmol/L Carbon Dioxide 29 (21-32) mmol/L Anion Gap 11 (3-11) BUN 55 H (6-23) mg/dl Creatinine 2.81 H (0.6-1.2) mg/dl Est Cr Clr Drug Dosing 16.2 ml/min Est GFR ( Amer) 17.2 ml/min Est GFR (Non-Af Amer) 14.8 ml/min BUN/Creatinine Ratio 19.6 (10-20) Glucose 225 H (70-99(Fasting)) mg/dl POC Glucose 186 H (70-99) mg/dl Calcium 9.6 (8.6-10.3) mg/dl Magnesium 2.4 (1.7-2.4) mg/dl Total Bilirubin 0.6 (0.2-1.0) mg/dl AST 43 H (13-39) U/L ALT 25 (7-52) U/L Alkaline Phosphatase 187 H (34-104) U/L Troponin I High Sens 39.3 H 37.0 H (0-14) pg/ml B-Natriuretic Peptide 774 H (0-100) pg/ml Total Protein 7.3 (6.0-8.3) gm/dl Albumin 3.9 (3.4-5.0) gm/dl Globulin 3.4 (2.5-4.0) gm/dl Albumin/Globulin Ratio 1.1 (0.9-2) Urine Color Urine Appearance (Clear) Urine pH (4.5-7.5) Ur Specific [place] (1.000-1.030) Urine Protein (Negative) Urine Glucose (UA) (Negative) Urine Ketones (Negative) Urine Blood (Negative) Urine Nitrite (Negative) Urine Bilirubin (Negative) Urine Urobilinogen (Negative) Ur Leukocyte Esterase (Negative) Diagnostic Findings Abdomen/Pelvis CT 01/31/24 16:21 CT OF THE ABDOMEN AND PELVIS WITHOUT CONTRAST CLINICAL HISTORY: Left-sided abdominal pain, nausea and vomiting. COMPARISON STUDY: CT of the abdomen and pelvis January 19, 2024. TECHNIQUE: Axial images of the abdomen and pelvis were obtained without IV contrast. Images were reviewed in the axial, sagittal, and coronal planes. Automated exposure control was utilized for the study. A dose lowering technique was utilized adhering to the principles of ALARA. FINDINGS: Pacer leads are partially imaged. There is moderate cardiomegaly. Moderate to large right and small left pleural effusions are partially imaged on this exam. These appear similar to CT of January 19, 2024. No renal, ureteral or bladder calculi are present. Bladder is mildly distended. Evaluation of the remainder of the abdomen and pelvis is suboptimal on this unenhanced exam. Liver, spleen, adrenal glands and pancreas are unremarkable. There is no biliary ductal dilatation status post cholecystectomy. Mild body wall edema is present. There is trace ascites within the pelvis. No fluid collections are present. There is no evidence for a bowel obstruction. No bowel wall thickening is identified on unenhanced exam. There is a moderate amount of stool within the colon. No lymphadenopathy is present. Old L1 compression fracture is unchanged in appearance. There are no acute fractures within the lumbar spine, pelvis or hips. IMPRESSION: 1. No acute process within the abdomen or pelvis on unenhanced exam. No bowel obstruction. 2. Moderate to large right and small left pleural effusions, partially imaged on this exam. These are similar to CT of January 19, 2024. 3. Trace ascites within the pelvis, similar to prior exam. Mild body wall edema. ACT 112: Negative or not required by law. Electronically signed by: Cali Jacobo M.D. 01/31/2024 5:09 PM Thoracentesis/Paracentesis 02/05/24 10:30 Ultrasound guided thoracentesis. Clinical indication: Right-sided pleural effusion. Procedure: Procedure and risks were explained. Informed consent was obtained. A final timeout was completed. The right posterior chest was prepped and draped in the sterile fashion. 1% buffered lidocaine was utilized for skin anesthesia. Utilizing ultrasound guidance, a 5 Thai catheter was introduced into the pleural space and 1200 ml of pleural fluid was drained. Ultrasound images were obtained. The catheter was removed. Post procedure scanning revealed significant decrease in the size of the pleural effusion. Postprocedural chest x-ray showed no pneumothorax. Patient Relations Director: Zane Sosa PA-C. IMPRESSION: Ultrasound guided thoracentesis as described above. Performed, dictated, and signed by Zane Sosa PA-C; to be co-signed by Dr. Sid Rodriguez. Electronically signed by: Sid Rodriguez M.D. 02/05/2024 2:31 PM Chest X-Ray 02/05/24 11:15 XR chest 1V not portable HISTORY: 83 years-old Female s/p rt thoracentesis acute shortness of breath COMPARISON: 01/31/2044 TECHNIQUE: AP view of the chest FINDINGS: Cardiac silhouette is enlarged. Left subclavian pacer/AICD. Aortic valvular endograft. Pulmonary vascular congestion with interstitial coarsening. Layering pleural effusions with persistent bibasilar opacities. The right pleural effusion is mildly decreased in size. No postprocedural pneumothorax. Bones appear grossly intact. IMPRESSION: 1. No postprocedural pneumothorax. 2. Cardiomegaly with persistent pulmonary edema. 3. Layering pleural effusions with bibasilar opacities redemonstrated. ACT 112: Negative or not required by law. The above report was generated using voice recognition software. It may contain grammatical, syntax or spelling errors. Electronically signed by: Irving Lerner M.D. 02/05/2024 12:02 PM PG Care Time/CCT Total # of Minutes Spent Total Time Spent with Patient: Total time spent is greater than 50% in coordination of care (as documented) at patient's floor/unit and/or counseling patient: I spent 110 minutes overall addressing this case: 15 min in medical data review/discussion with referring provider(s) and/or preparation for the visit 20 min in direct interaction with the patient/exam 45 min in Advance Care Planning/Goals of Care discussions as detailed above in note (must be >16min) 15 min in subsequent review and synthesis of assessment and plan 15 min communicating with other providers regarding the patient's case: Primary team, cardiology/Latrice Mcmanus PA-C Prolonged Care Time Prolonged Care Time: Yes Advanced Care Planning [id number] Advanced Care Planning 30 Min [id number] Advanced Care Planning Additional 30 [place] [address] IN/OBS CONSULT LVL 4,60M Patient Type New History Comprehensive Exam Comprehensive Medical Decision Making High Complexity Diagnoses Dyspnea and respiratory abnormalities R06.00; R06.89 Weakness generalized R53.1 Muscular deconditioning R29.898 Advanced care planning/counseling discussion Z71.89 Palliative care by specialist Z51.5 Additional Codes Advanced Care Planning - 05698 Advanced Care Planning 30 Min: 97611 Advanced Care Planning 30 Min ([id number]) Advanced Care Planning - 09221 Advanced Care Planning Additional 30 Min: 91056 Advanced Care Planning Additional 30 Min ([id number]) Prolonged Care Time - Prolonged Care Time: Yes ([id number])
[2024-02-06 04:15] LABS: BUN Creatinine Ratio 22.6 (10-20); Calcium 8.7 mg/dl (8.6-10.3); Creatinine Clr Calc Pharmacy 16.9 ml/min; Est GFR (Non-African American) 15.6 ml/min; Potassium 4.5 mmol/L (3.5-5.1)
--- NOTE | 2024-02-06 12:27 | Hospitalist Progress Note ---
Date of Service February 06, 2024 Assessment & Plan (1) Acute exacerbation of CHF (congestive heart failure): Plan: Acute on chronic combined systolic and diastolic CHF -Patient has had recent multiple admissions for CHF exacerbations -Follows up with heart failure clinic -She has been compliant with medications and her low-sodium diet -On admission, CXR shows progression of her pulmonary edema and BL pleural effusions, BNP was 774, which is higher than previous admissions -Will continue with 2mg IV Bumex BID and will continue her Spironolactone -Monitor daily weight, I's & O's closely -Despite diuresis, patient still gets short of breath easily on mild exertion -According to the patient and her daughter they are open to going to [place] to explore options of heart valve surgery -However the challenge remains getting her in the position to be discharged from this hospital. (2) Pleural effusion: Plan: Status post paracentesis with removal of about 1.2 L of fluid Shortness of breath is much improved the patient however her exercise tolerance is still about the same. (3) Abdominal pain: Plan: -Now resolved -CT of the abd/pelvis wo IV con was negative for acute findings -Will continue patient's BID pantoprazole and start QID carafate -Monitor for improvement (4) CKD (chronic kidney disease) stage 4, GFR 15-29 ml/min: Plan: Worsening kidney function following diuresis Slight improvement following holding of Bumex Avoid nephrotoxic's. (5) Nausea: Plan: -Likely related to her reflux/possible ulcer -Could have a component of Gastroparesis as well -Continue pantoprazole and monitor for improvement with starting Carafate -PRN Zofran (6) Elevated troponin: Plan: -Likely related to demand -Continue to monitor on tele (7) DM II (diabetes mellitus, type II), controlled: Plan: -Monitor BSG ACHS, goal is 110-160 -Start 5 units lantus BID and CF 50 ACHS -Continue HH/DMII diet -Adjust regimen as needed (8) Hypothyroidism: Plan: -Continue levothyroxine (9) Chronic obstructive pulmonary disease, unspecified: Plan: -Stable on RA -Continue home breathing treatments -Incentive spirometry (10) Ischemic cardiomyopathy: Plan: -See CHF exacerbation (11) PAF (paroxysmal atrial fibrillation): Plan: -Currently in paced rhythm -Continue Carvedilol and Eliquis (currently on hold for thoracentesis) (12) Mitral regurgitation: Plan: Surgery has been mooted in the past, they are now willing to explore that option at [place] Outpatient follow-up with cardiothoracic surgery Plan Awaiting evaluation by physical therapy, patient may need to go to skilled for therapy. Admission and Anticipated Discharge Date Admission Date: January 31, 2024 Subjective Patient seen and examined today, states shortness of breath is somewhat improved, but still gets short of breath whenever she moves around. It was reported that she fell in the bathroom last night Review of Systems Review of Systems: All systems reviewed are negative, apart from the ones contained in the history. Physical Exam Physical Exam: The patient is awake, alert and oriented 3, well developed and well nourished, normocephalic and atraumatic, lying in bed and in no acute distress. HEENT--PERRL, EOMI, mucous membranes and oropharynx mildly dry Neck--supple. No JVD. No bruits. Thyroid normal, trachea midline, no adenopathy. Heart--normal S1 and S2. Regurgitant murmur Lungs--reduced air entry on auscultation Abdomen--normal bowel sounds and soft. Extremities--no cyanosis or clubbing. No edema. Dermatologic--normal skin turgor, normal color, no abnormal lymph nodes, no rash. Neurologic--cranial nerves II through XII grossly intact. Rheumatologic--normal range of motion. Psychiatric--normal affect. Results & Data Results & Data Vital Signs (Past 12 Hours) Vital Signs Temp Pulse Pulse Resp BP Pulse Ox O2 Del Method 02/06/24 11:44 97.0 F L 71 14 121/76 88 L Room Air 02/06/24 09:00 70 02/06/24 07:35 97.9 F 71 16 131/77 92 Room Air 02/06/24 02:56 98.4 F 72 18 126/77 91 Room Air PG Care Time/CCT Total # of Minutes Spent Total Time Spent with Patient: Total time spent is greater than 50% in coordination of care (as documented) at patient's floor/unit and/or counseling patient: Coding Level of Care Code 42530 SUB INP/OBS CARE 2/35MIN Diagnoses Acute exacerbation of CHF (congestive heart failure) I50.9 Heart failure type: unspecified Pleural effusion J90 Abdominal pain R10.9 CKD (chronic kidney disease) stage 4, GFR 15-29 ml/min N18.4 Nausea R11.0 Elevated troponin R77.8 Controlled type 2 diabetes mellitus with diabetic nephropathy, with long-term current use of insulin E11.21; Z79.4 Diabetes mellitus assisted insulin use: with assisted use Diabetes mellitus complication status: with kidney complications Diabetes mellitus complication detail: with nephropathy Acquired hypothyroidism E03.9 Hypothyroidism type: acquired Chronic obstructive pulmonary disease, unspecified J44.9 Ischemic cardiomyopathy I25.5 PAF (paroxysmal atrial fibrillation) I48.0 Mitral regurgitation I34.0 Time Spent (min) 35 (1) Acute exacerbation of CHF (congestive heart failure) Heart failure type: unspecified Qualified Code(s): I50.9 - Heart failure, u nspecified (7) DM II (diabetes mellitus, type II), controlled Diabetes mellitus assisted insulin use: with moth exterminator use Diabetes mellitus complication status: with kidney complications Diabetes mellitus complication detail: with nephropathy Qualified Code(s): E11.21 - Type 2 diabetes mellitus with diabetic nephropathy; Z79.4 - intermediate accountant (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 (8) Hypothyroidism Hypothyroidism type: acquired Qualified Code(s): E03.9 - Hypothyroidism, unspecified
--- NOTE | 2024-02-07 12:49 | Hospitalist Progress Note ---
Date of Service February 07, 2024 Assessment & Plan (1) Acute exacerbation of CHF (congestive heart failure): Plan: Acute on chronic combined systolic and diastolic CHF -Patient has had recent multiple admissions for CHF exacerbations -Follows up with heart failure clinic -She has been compliant with medications and her low-sodium diet -On admission, CXR shows progression of her pulmonary edema and BL pleural effusions, BNP was 774, which is higher than previous admissions -Will continue with 2mg IV Bumex BID and will continue her Spironolactone -Monitor daily weight, I's & O's closely -Despite diuresis, patient still gets short of breath easily on mild exertion -According to the patient and her daughter they are open to going to [place] to explore options of heart valve surgery -However the challenge remains getting her in the position to be discharged from this hospital. -Will continue IV diuresis for now -Continue to work with physical therapy (2) Mitral regurgitation: Plan: Surgery has been mooted in the past, they are now willing to explore that option at [place] Outpatient follow-up with cardiothoracic surgery Palliative discussed with the patient and the daughter and patient says she is waiting for an appointment at [place]'s determine if she can have surgery on her mitral valve. (3) Pleural effusion: Plan: Status post paracentesis with removal of about 1.2 L of fluid Shortness of breath is much improved the patient however her exercise tolerance is still about the same. (4) Abdominal pain: Plan: -Now resolved -CT of the abd/pelvis wo IV con was negative for acute findings -Will continue patient's BID pantoprazole and start QID carafate -Monitor for improvement (5) CKD (chronic kidney disease) stage 4, GFR 15-29 ml/min: Plan: Worsening kidney function following diuresis Slight improvement following holding of Bumex Avoid nephrotoxic's. (6) Nausea: Plan: -Likely related to her reflux/possible ulcer -Could have a component of Gastroparesis as well -Continue pantoprazole and monitor for improvement with starting Carafate -PRN Zofran (7) Elevated troponin: Plan: -Likely related to demand -Continue to monitor on tele (8) DM II (diabetes mellitus, type II), controlled: Plan: -Monitor BSG ACHS, goal is 110-160 -Start 5 units lantus BID and CF 50 ACHS -Continue HH/DMII diet -Adjust regimen as needed (9) Hypothyroidism: Plan: -Continue levothyroxine (10) Chronic obstructive pulmonary disease, unspecified: Plan: -Stable on RA -Continue home breathing treatments -Incentive spirometry (11) Ischemic cardiomyopathy: Plan: -See CHF exacerbation (12) PAF (paroxysmal atrial fibrillation): Plan: -Currently in paced rhythm -Continue Carvedilol and Eliquis (currently on hold for thoracentesis) Plan Evaluated by physical therapy, they recommend home with home PT Admission and Anticipated Discharge Date Admission Date: January 31, 2024 Subjective Patient seen and examined today, states shortness of breath is somewhat improved, but still gets short of breath whenever she moves around. It was reported that she fell in the bathroom last night Review of Systems Review of Systems: All systems reviewed are negative, apart from the ones contained in the history. Physical Exam Physical Exam: The patient is awake, alert and oriented 3, well developed and well nourished, normocephalic and atraumatic, lying in bed and in no acute distress. HEENT--PERRL, EOMI, mucous membranes and oropharynx mildly dry Neck--supple. No JVD. No bruits. Thyroid normal, trachea midline, no adenopathy . Heart--normal S1 and S2. Regurgitant murmur Lungs--reduced air entry on auscultation Abdomen--normal bowel sounds and soft. Extremities--no cyanosis or clubbing. No edema. Dermatologic--normal skin turgor, normal color, no abnormal lymph nodes, no rash. Neurologic--cranial nerves II through XII grossly intact. Rheumatologic--normal range of motion. Psychiatric--normal affect. Results & Data Results & Data Vital Signs (Past 12 Hours) Vital Signs Temp Pulse Pulse Resp BP Pulse Ox O2 Del Method 02/07/24 11:57 97.7 F 62 18 128/84 97 Room Air 02/07/24 07:28 98.1 F 75 18 142/74 H 90 Room Air 02/07/24 07:00 70 02/07/24 03:35 98.2 F 73 18 143/82 H 92 Room Air PG Care Time/CCT Total # of Minutes Spent Total Time Spent with Patient: Total time spent is greater than 50% in coordination of care (as documented) at patient's floor/unit and/or counseling patient: Coding Level of Care Code 74026 SUB INP/OBS CARE 235MIN Diagnoses Acute exacerbation of CHF (congestive heart failure) I50.9 Heart failure type: unspecified Mitral regurgitation I34.0 Pleural effusion J90 Abdominal pain R10.9 CKD (chronic kidney disease) stage 4, GFR 15-29 ml/min N18.4 Nausea R11.0 Elevated troponin R77.8 Controlled type 2 diabetes mellitus with diabetic nephropathy, with long-term current use of insulin E11.21; Z79.4 Diabetes mellitus intermediate accountant insulin use: with fpc use Diabetes mellitus complication status: with kidney complications Diabetes mellitus complication detail: with nephropathy Acquired hypothyroidism E03.9 Hypothyroidism type: acquired Chronic obstructive pulmonary disease, unspecified J44.9 Ischemic cardiomyopathy I25.5 PAF (paroxysmal atrial fibrillation) I48.0 Time Spent (min) 35 (1) Acute exacerbation of CHF (congestive heart failure) Heart failure type: unspecified Qualified Code(s): I50.9 - Heart failure, unspecified (8) DM II (diabetes mellitus, type II), controlled Diabetes mellitus intermediate accountant insulin use: with intermediate accountant use Diabetes mellitus complication status: with kidney complications Diabetes mellitus complication detail: with nephropathy Qualified Code(s): E11.21 - Type 2 diabetes mellitus with diabetic nephropathy; Z79.4 - [facility] (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 (9) Hypothyroidism Hypothyroidism type: acquired Qualified Code(s): E03.9 - Hypothyroidism, unspecified
[2024-02-08 05:25] LABS: BUN Creatinine Ratio 23.8 (10-20); Calcium 8.6 mg/dl (8.6-10.3); Creatinine Clr Calc Pharmacy 19.1 ml/min; Est GFR (African American) 20.8 ml/min; Est GFR (Non-African American) 17.9 ml/min; Potassium 4.4 mmol/L (3.5-5.1)
--- NOTE | 2024-02-08 12:14 | Hospitalist Progress Note ---
Date of Service February 08, 2024 Assessment & Plan (1) Acute exacerbation of CHF (congestive heart failure): Plan: Acute on chronic combined systolic and diastolic CHF -Patient has had recent multiple admissions for CHF exacerbations -Follows up with heart failure clinic -She has been compliant with medications and her low-sodium diet -On admission, CXR shows progression of her pulmonary edema and BL pleural effusions, BNP was 774, which is higher than previous admissions -Will continue with 2mg IV Bumex BID and will continue her Spironolactone -She is in negative fluid balance of 1.1 L overnight -Monitor daily weight, I's & O's closely -Despite diuresis, patient still gets short of breath easily on mild exertion -According to the patient and her daughter they are open to going to [place] to explore options of heart valve surgery -However the challenge remains getting her in the position to be discharged from this hospital. -Will continue IV diuresis for now -Continue to work with physical therapy (2) Mitral regurgitation: Plan: Surgery has been mooted in the past, they are now willing to explore that option at [place] Outpatient follow-up with cardiothoracic surgery Palliative discussed with the patient and the daughter and patient says she is waiting for an appointment at [place]'s determine if she can have surgery on her mitral valve. (3) Pleural effusion: Plan: Status post paracentesis with removal of about 1.2 L of fluid Shortness of breath is much improved the patient however her exercise tolerance is still about the same. (4) Abdominal pain: Plan: -Now resolved -CT of the abd/pelvis wo IV con was negative for acute findings -Will continue patient's BID pantoprazole and start QID carafate -Monitor for improvement (5) CKD (chronic kidney disease) stage 4, GFR 15-29 ml/min: Plan: Worsening kidney function following diuresis Slight improvement following holding of Bumex Avoid nephrotoxic's. (6) Nausea: Plan: -Likely related to her reflux/possible ulcer -Could have a component of Gastroparesis as well -Continue pantoprazole and monitor for improvement with starting Carafate -PRN Zofran (7) Elevated troponin: Plan: -Likely related to demand -Continue to monitor on tele (8) DM II (diabetes mellitus, type II), controlled: Plan: -Monitor BSG ACHS, goal is 110-160 -Start 5 units lantus BID and CF 50 ACHS -Continue HH/DMII diet -Adjust regimen as needed (9) Hypothyroidism: Plan: -Continue levothyroxine (10) Chronic obstructive pulmonary disease, unspecified: Plan: -Stable on RA -Continue home breathing treatments -Incentive spirometry (11) Ischemic cardiomyopathy: Plan: -See CHF exacerbation (12) PAF (paroxysmal atrial fibrillation): Plan: -Currently in paced rhythm -Continue Carvedilol and Eliquis (currently on hold for thoracentesis) Plan Evaluated by physical therapy, they recommend home with home PT Admission and Anticipated Discharge Date Admission Date: January 31, 2024 Subjective Patient seen and examined today, still gets short of breath on minimal exertion although improved overall Review of Systems 2 Review of Systems: All systems reviewed are negative, apart from the ones contained in the history. Physical Exam Physical Exam: The patient is awake, alert and oriented 3, well developed and well nourished, normocephalic and atraumatic, lying in bed and in no acute distress. HEENT--PERRL, EOMI, mucous membranes and oropharynx mildly dry Neck--supple. No JVD. No bruits. Thyroid normal, trachea midline, no adenopathy. Heart--normal S1 and S2. Regurgitant murmur Lungs--reduced air entry on auscultation Abdomen--normal bowel sounds and soft. Extremities--no cyanosis or clubbing. No edema. Dermatologic--normal skin turgor, normal color, no abnormal lymph nodes, no rash. Neurologic--cranial nerves II through XII grossly intact. Rheumatologic--normal range of motion. Psychiatric--normal affect. Results & Data Results & Data Vital Signs (Past 12 Hours) Vital Signs Temp Pulse Pulse Resp BP Pulse Ox O2 Del Method 02/08/24 11:48 97.7 F 70 18 140/80 91 Room Air 02/08/24 10:34 Room Air 02/08/24 07:52 97.9 F 73 20 126/68 91 Room Air 02/08/24 07:25 70 02/08/24 03:29 98.1 F 66 18 120/65 92 Room Air PG Care Time/CCT Total # of Minutes Spent Total Time Spent with Patient: Total time spent is greater than 50% in coordination of care (as documented) at patient's floor/unit and/or counseling patient: Coding Level of Care Code 42420 SUB INP/OBS CARE 235MIN Diagnoses Acute exacerbation of CHF (congestive heart failure) I50.9 Heart failure type: unspecified Mitral regurgitation I34.0 Pleural effusion J90 Abdominal pain R10.9 CKD (chronic kidney disease) stage 4, GFR 15-29 ml/min N18.4 Nausea R11.0 Elevated troponin R77.8 Controlled type 2 diabetes mellitus with diabetic nephropathy, with long-term current use of insulin E11.21; Z79.4 Diabetes mellitus long term acute care registered nurse insulin use: with detention use Diabetes mellitus complication status: with kidney complications Diabetes mellitus complication detail: with nephropathy Acquired hypothyroidism E03.9 Hypothyroidism type: acquired Chronic obstructive pulmonary disease, unspecified J44.9 Ischemic cardiomyopathy I25.5 PAF (paroxysmal atrial fibrillation) I48.0 Time Spent (min) 35 (1) Acute exacerbation of CHF (congestive heart failure) Heart failure type: unspecified Qualified Code(s): I50.9 - Heart failure, unspecified (8) DM II (diabetes mellitus, type II), controlled Diabetes mellitus long term acute care registered nurse insulin use: with long term acute care registered nurse use Diabetes mellitus complication status: with kidney complications Diabetes mellitus complication detail: with nephropathy Qualified Code(s): E11.21 - Type 2 diabetes mellitus with diabetic nephropathy; Z79.4 - retirement (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 (9) Hypothyroidism Hypothyroidism type: acquired Qualified Code(s): E03.9 - Hypothyroidism, unspecified
[2024-02-09 08:43] LABS: Calcium 8.5 mg/dl (8.6-10.3); Potassium 4.7 mmol/L (3.5-5.1)
[2024-02-09 08:49] LABS: BUN Creatinine Ratio 25.3 (10-20); Creatinine Clr Calc Pharmacy 19.5 ml/min; Est GFR (African American) 21.5 ml/min; Est GFR (Non-African American) 18.6 ml/min
--- NOTE | 2024-02-09 11:45 | Hospitalist Progress Note ---
Date of Service February 09, 2024 Assessment & Plan (1) Acute exacerbation of CHF (congestive heart failure): Plan: Acute on chronic combined systolic and diastolic CHF -Patient has had recent multiple admissions for CHF exacerbations -Follows up with heart failure clinic -She has been compliant with medications and her low-sodium diet -On admission, CXR shows progression of her pulmonary edema and BL pleural effusions, BNP was 774, which is higher than previous admissions -Will continue with 2mg IV Bumex BID and will continue her Spironolactone -She is in negative fluid balance of 1.5 L overnight -Monitor daily weight, I's & O's closely -Despite diuresis, patient still gets short of breath easily on mild exertion -According to the patient and her daughter they are open to going to [place] to explore options of heart valve surgery -However the challenge remains getting her in the position to be discharged from this hospital. -Will continue IV diuresis for now -Continue to work with physical therapy -Hopefully discharge home tomorrow (2) Mitral regurgitation: Plan: Surgery has been mooted in the past, they are now willing to explore that option at [place] Outpatient follow-up with cardiothoracic surgery Palliative discussed with the patient and the daughter and patient says she is waiting for an appointment at [facility]'s determine if she can have surgery on her mitral valve. (3) Pleural effusion: Plan: Status post paracentesis with removal of about 1.2 L of fluid Shortness of breath is much improved the patient however her exercise tolerance is still about the same. (4) Abdominal pain: Plan: -Now resolved -CT of the abd/pelvis wo IV con was negative for acute findings -Will continue patient's BID pantoprazole and start QID carafate -Monitor for improvement (5) CKD (chronic kidney disease) stage 4, GFR 15-29 ml/min: Plan: Worsening kidney function following diuresis Slight improvement following holding of Bumex Avoid nephrotoxic's. (6) Nausea: Plan: -Likely related to her reflux/possible ulcer -Could have a component of Gastroparesis as well -Continue pantoprazole and monitor for improvement with starting Carafate -PRN Zofran (7) Elevated troponin: Plan: -Likely related to demand -Continue to monitor on tele (8) DM II (diabetes mellitus, type II), controlled: Plan: -Monitor BSG ACHS, goal is 110-160 -Start 5 units lantus BID and CF 50 ACHS -Continue HH/DMII diet -Adjust regimen as needed (9) Hypothyroidism: Plan: -Continue levothyroxine (10) Chronic obstructive pulmonary disease, unspecified: Plan: -Stable on RA -Continue home breathing treatments -Incentive spirometry (11) Ischemic cardiomyopathy: Plan: -See CHF exacerbation (12) PAF (paroxysmal atrial fibrillation): Plan: -Currently in paced rhythm -Continue Carvedilol and Eliquis (currently on hold for thoracentesis) Plan Evaluated by physical therapy, they recommend home with home PT, hopefully discharge home tomorrow Admission and Anticipated Discharge Date Admission Date: January 31, 2024 Subjective Patient seen and examined today, still gets short of breath on minimal exertion although improved overall Review of Systems Review of Systems: All systems reviewed are negative, apart from the ones contained in the history. Physical Exam Physical Exam: The patient is awake, alert and oriented 3, well developed and well nourished, normocephalic and atraumatic, lying in bed and in no acute distress. HEENT--PERRL, EOMI, mucous membranes and oropharynx mildly dry Neck--supple. No JVD. No bruits. Thyroid normal, trachea midline, no adenopathy. Heart--normal S1 and S2. Regurgitant murmur Lungs--reduced air entry on auscultation Abdomen--normal bowel sounds and soft. Extremities--no cyanosis or clubbing. No edema. Dermatologic--normal skin turgor, normal color, no abnormal lymph nodes, no rash. Neurologic--cranial nerves II through XII grossly intact. Rheumatologic--normal range of motion. Psychiatric--normal affect. Results & Data Results & Data Vital Signs (Past 12 Hours) Vital Signs Temp Pulse Pulse Resp BP Pulse Ox O2 Del Method 02/09/24 08:01 98.2 F 71 16 130/71 91 Room Air 02/09/24 07:35 Room Air 02/09/24 07:15 81 02/09/24 03:08 98.6 F 70 18 123/75 92 Room Air PG Care Time/CCT Total # of Minutes Spent Total Time Spent with Patient: Total time spent is greater than 50% in coordination of care (as documented) at patient's floor/unit and/or counseling patient: Coding Level of Care Code 22633 SUB INP/OBS CARE 235MIN Diagnoses Acute exacerbation of CHF (congestive heart failure) I50.9 Heart failure type: unspecified Mitral regurgitation I34.0 Pleural effusion J90 Abdominal pain R10.9 CKD (chronic kidney disease) stage 4, GFR 15-29 ml/min N18.4 Nausea R11.0 Elevated troponin R77.8 Controlled type 2 diabetes mellitus with diabetic nephropathy, with long-term current use of insulin E11.21; Z79.4 Diabetes mellitus long goods drier insulin use: with mcc use Diabetes mellitus complication status: with kidney complications Diabetes mellitus complication detail: with nephropathy Acquired hypothyroidism E03.9 Hypothyroidism type: acquired Chronic obstructive pulmonary disease, unspecified J44.9 Ischemic cardiomyopathy I25.5 PAF (paroxysmal atrial fibrillation) I48.0 Time Spent (min) 35 (1) Acute exacerbation of CHF (congestive heart failure) Heart failure type: unspecified Qualified Code(s): I50.9 - Heart failure, unspecified (8) DM II (diabetes mellitus, type II), controlled Diabetes mellitus long goods drier insulin use: with mcc use Diabetes mellitus complication status: with kidney complications Diabetes mellitus complication detail: with nephropathy Qualified Code(s): E11.21 - Type 2 diabetes mellitus with diabetic nephropathy; Z79.4 - director long term care (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 (9) Hypothyroidism Hypothyroidism type: acquired Qualified Code(s): E03.9 - Hypothyroidism, unspecified
[2024-02-10 04:49] LABS: BUN Creatinine Ratio 23.1 (10-20); Creatinine Clr Calc Pharmacy 18.4 ml/min; Est GFR (African American) 20.1 ml/min; Est GFR (Non-African American) 17.3 ml/min; Potassium 4.5 mmol/L (3.5-5.1)
--- NOTE | 2024-02-10 10:14 | Discharge Summary ---
Date of Service February 10, 2024 Admission HPI Per Admitting Provider Ban is an 83 yo female with PMH of NSTEMI, CVA, paroxysmal afib (on Eliquis), CKD, HFrEF (LVEF of 40-45%), biventricular ICD in place, aortic stenosis s/p TAVR, PAD s/p stenting, Hypothyroidism, Interstitial Lung Dx, Pulmonary HTN, COPD, insulin dependent DMII, and bilateral carotid artery stenosis who presented to the [facility] ED on 01/31/24 with progressive SOB/GOMEZ, epigastric pain. Patient has had multiple recent admissions for CHF exacerbations. Was seen at her PCP's office yesterday and recommended to be seen in the ED but wanted to initially wait. Symptoms have progressed which is why she presented today. She remained stable in the ED. Labs were significant for a cr of 2.81 (baseline is near 2.0), corrected sodium of 135, initial high sen trop of 37. Chest xray was read as "1. Cardiomegaly and AICD with evidence of congestive failure. 2. Layering pleural effusions with dependent consolidation.". ECG showed a ventricular paced rhythm without acute changes. Prior to admission the patient was given 3 mg IV bumex and 40 mg IV pantoprazole. At the time of the exam the patient was sitting in bed in no acute distress with her Daughter and Grandson bedside, history was obtained from all. Since discharge she has had ongoing issues with progressive SOB/GOMEZ, abdominal distention, and ongoing epigastric discomfort with nausea and non-bloody emesis. She confirms that the abdominal pain was the same as the last time we admitted her at the beginning of this month. She followed up with both the Heart Failure Clinic and her PCP yesterday. Her PCP increased her PO bumex to 4 mg BID and started her on 50 mg Spironolactone daily. She started these changes yesterday and states she has urinated very little over the past 24 hours. She is having significant orthopnea and GOMEZ which is limiting her quality of life. Her daughter states that the patient's abdomen has been more distended over the past week then ever before. When asked about other abdominal pain the patient states that she has been experiencing mild-moderate LLQ abdominal pain with palpation of the area. The area does not bother her at rest, it has not been associated with bowel movements. She has had 2 normal bowel movements today. She is a DNR/DNI and her daughter is her POA. Principal Diagnosis Acute on chronic congestive heart failure Discharge Exam The patient is awake, alert and oriented 3, well developed and well nourished, normocephalic and atraumatic, lying in bed and in no acute distress. HEENT--PERRL, EOMI, mucous membranes and oropharynx mildly dry Neck--supple. No JVD. No bruits. Thyroid normal, trachea midline, no adenopathy. Heart--normal S1 and S2. Regurgitant murmur Lungs--reduced air entry on auscultation Abdomen--normal bowel sounds and soft. Extremities--no cyanosis or clubbing. No edema. Dermatologic--normal skin turgor, normal color, no abnormal lymph nodes, no rash. Neurologic--cranial nerves II through XII grossly intact. Rheumatologic--normal range of motion. Psychiatric--normal affect. Discharge Data Allergies Allergy/AdvReac Type Severity Reaction Status Date / Time adhesive Allergy Intermediate REDNESS Verified 01/30/24 09:26 AND IRRITATION FROM PAIN PATCH, TAPE latex Allergy Intermediate ALLERGIC Verified 01/30/24 09:26 TO LATEX TAPE/RASH/ITCHING morphine Allergy Intermediate swelling Verified 01/30/24 09:26 nausea vomiting olmesartan Allergy Unknown UNKNOWN Verified 01/30/24 09:26 benzonatate AdvReac Intermediate confusion Verified 01/30/24 09:26 [From Tessalchemo Brennan] dulaglutide [From Trulicity] AdvReac Intermediate AFFECTS Verified 01/30/24 09:26 MUSCLES exenatide [From Byetta] AdvReac Intermediate Diarrhea Verified 01/30/24 09:26 ezetimibe AdvReac Intermediate MUSCLE Verified 01/30/24 09:26 ACHES glipizide AdvReac Intermediate Diarrhea Verified 01/30/24 09:26 glyburide AdvReac Intermediate Diarrhea Verified 01/30/24 09:26 lisinopril AdvReac Intermediate LIGHTHEADED Verified 01/30/24 09:26 AND DIZZY losartan AdvReac Intermediate dizziness Verified 01/30/24 09:26 metformin AdvReac Intermediate Diarrhea Verified 01/30/24 09:26 pioglitazone AdvReac Intermediate DIARRHEA Verified 01/30/24 09:26 NAUSEA sitagliptin [From Januvia] AdvReac Intermediate Diarrhea Verified 01/30/24 09:26 Iencwzj-EIC-CyF Reductase AdvReac Intermediate myalgias Verified 01/30/24 09:26 Inhibitor and [Ezeduya-Usd-Yst Reductase weakness Inhibitor] aspirin AdvReac Mild GI SYMPTOMS Verified 01/30/24 09:26 Consultations 01/31/24 15:43 ED Decision to Admit Stat 02/02/24 16:14 Consult Palliative Care Routine Ordered Studies 01/31/24 16:21 CT abd pelvis wo con Stat 02/05/24 10:30 IR thoracentesis wo tube US Routine Hospital Course (1) Acute exacerbation of CHF (congestive heart failure): Acute on chronic combined systolic and diastolic CHF -Patient has had recent multiple admissions for CHF exacerbations -Follows up with heart failure clinic -She has been compliant with medications and her low-sodium diet -On admission, CXR shows progression of her pulmonary edema and BL pleural effusions, BNP was 774, which is higher than previous admissions -Will continue with 2mg IV Bumex BID and will continue her Spironolactone -She is in negative fluid balance of 1.5 L overnight -Monitor daily weight, I's & O's closely -Despite diuresis, patient still gets short of breath easily on mild exertion -According to the patient and her daughter they are open to going to [place] to explore options of heart valve surgery -However the challenge remains getting her in the position to be discharged from this hospital. -Will continue IV diuresis for now -Continue to work with physical therapy -Discharge home and continue p.o. Bumex 2 mg twice daily (2) Mitral regurgitation: Surgery has been mooted in the past, they are now willing to explore that option at [place] Outpatient follow-up with cardiothoracic surgery Palliative discussed with the patient and the daughter and patient says she is waiting for an appointment at [place]'s determine if she can have surgery on her mitral valve. (3) Pleural effusion: Status post paracentesis with removal of about 1.2 L of fluid Shortness of breath is much improved the patient however her exercise tolerance is still about the same. (4) Abdominal pain: -Now resolved -CT of the abd/pelvis wo IV con was negative for acute findings -Will continue patient's BID pantoprazole and start QID carafate -Monitor for improvement (5) CKD (chronic kidney disease) stage 4, GFR 15-29 ml/min: Worsening kidney function following diuresis Slight improvement following holding of Bumex Avoid nephrotoxic's. (6) Nausea: -Likely related to her reflux/possible ulcer -Could have a component of Gastroparesis as well -Continue pantoprazole and monitor for improvement with starting Carafate -PRN Zofran (7) Elevated troponin: -Likely related to demand -Continue to monitor on tele (8) DM II (diabetes mellitus, type II), controlled: -Monitor BSG ACHS, goal is 110-160 -Start 5 units lantus BID and CF 50 ACHS -Continue HH/DMII diet -Adjust regimen as needed (9) Hypothyroidism: -Continue levothyroxine (10) Chronic obstructive pulmonary disease, unspecified: -Stable on RA -Continue home breathing treatments -Incentive spirometry (11) Ischemic cardiomyopathy: -See CHF exacerbation (12) PAF (paroxysmal atrial fibrillation): -Currently in paced rhythm -Continue Carvedilol and Eliquis (currently on hold for thoracentesis) Plan Evaluated by physical therapy, they recommend home with home PT, hopefully discharge home tomorrow Total Time Total Time Spent Total Time Spent (In Minutes): 35 Discharge Plan Discharge Items Patient Disposition: Home - Home Health Services Reason For Visit: CHF EXACERBATION, NAUSEA AND VOMITING Discharge Diagnosis: acute on chronic chf Activity: Resume your previous activity Non-emergency contact: Primary Care Provider and Office Automation Technician Call non-emergency contact if: you have any medication questions Follow-up/Referrals: Ebony Alvarenga DO [Primary Care Provider] - Latrice Mcmanus P[facility]rice[facility] [Physician Campus Receptionist] - 02/15/24 11:30 am Diet: Heart Healthy and Low Sodium (2gm) Addtl Attending Provider Instructions: please make arrangements to follow up with your collar stitcher Pending Studies at Discharge: No Stand-Alone Forms: My [employer], Smoking Cessation Medications and DC Order Prescriptions: Continued cholecalciferol (vitamin D3) 25 mcg (1,000 unit) capsule 1,000 unit PO QAM trazodone 50 mg tablet 50 mg PO HS PRN (Reason: insomnia) Qty: 90 1RF calcitriol [Rocaltrol] 0.25 mcg capsule 0.25 mcg PO 3XWK Qty: 12 1RF Rx Instructions: MONDAY/MONDAY/MONDAY/ IN THE AM Eliquis 2.5 mg tablet 2.5 mg PO BID Qty: 180 3RF (DME) insulin syringe-needle U-100 0.3 mL 31 gauge x 5/16" syringe See Rx Instructions .Route Qty: 100 3RF Rx Instructions: test three times daily (DME) FreeStyle Rossy 14 Day Sensor Kit See Rx Instructions .Route Qty: 1 5RF Rx Instructions: Testing BS 4-5 times per day ranolazine 500 mg tablet extended release 12 hr 500 mg PO BID Qty: 180 3RF levothyroxine 75 mcg tablet 75 mcg PO QAM Qty: 90 1RF insulin asp prt-insulin aspart [Novolog Mix 70-30 U-100 Insuln] 100 unit/mL (70-30) solution 15 - 30 unit SUBCUT AMPM Qty: 30 5RF Rx Instructions: Per home sliding scale (DME) FreeStyle Rossy 14 Day Daisy Misc See Rx Instructions .Route Qty: 6 1RF Rx Instructions: Testing BS 4-5 times per day ondansetron HCl 8 mg tablet 8 mg PO Q8H PRN (Reason: nausea and vomiting) Qty: 30 0RF sertraline 50 mg tablet 75 mg PO DAILY Qty: 135 1RF pantoprazole [Protonix] 40 mg tablet,delayed release (DR/EC) 40 mg PO BID Qty: 180 1RF bumetanide 2 mg tablet 4 mg PO BID Qty: 200 3RF spironolactone 50 mg tablet 50 mg PO DAILY Qty: 30 2RF carvedilol 3.125 mg tablet 3.125 mg PO BID Qty: 180 3RF Brilinta 60 mg tablet 60 mg PO BID Qty: 90 3RF vitamin E 400 unit capsule 400 unit PO QAM senna 8.6 mg capsule 8.6 mg PO DAILY PRN (Reason: constipation) Qty: 10 0RF polyethylene glycol 3350 [Miralax] 17 gram/dose Powder 17 g PO TID Qty: 119 0RF potassium gluconate 595 mg (99 mg) tablet 595 mg PO DAILY PRN (Reason: With Bumex) Rx Instructions: Take 1 tablet if you take a Bumex dose gabapentin 300 mg capsule 300 mg PO TID magnesium oxide 400 mg (241.3 mg magnesium) Tablet 400 mg PO QPM Qty: 30 0RF Discharge Orders: Discharge Order (Routine); Ordered 02/10/24 Ordered By: Beth Mendoza Admission Data Admit Date/Time: 01/31/24 16:05 Attending Provider: Beth Mendoza Admit Provider: Tesfaye Husain Primary Care Provider: Ebony Alvarenga Other Providers: Tesfaye Husain; Casandra Smart; Charles Singh [facility] Coding Level of Care Code 72994 INP/OBS DISCH >30 MIN Diagnoses Acute exacerbation of CHF (congestive heart failure) I50.9 Heart failure type: unspecified Mitral regurgitation I34.0 Pleural effusion J90 Abdominal pain R10.9 CKD (chronic kidney disease) stage 4, GFR 15-29 ml/min N18.4 Nausea R11.0 Elevated troponin R77.8 Controlled type 2 diabetes mellitus with diabetic nephropathy, with long-term current use of insulin E11.21; Z79.4 Diabetes mellitus terminal computer operator insulin use: with terminal computer operator use Diabetes mellitus complication status: with kidney complications Diabetes mellitus complication detail: with nephropathy Acquired hypothyroidism E03.9 Hypothyroidism type: acquired Chronic obstructive pulmonary disease, unspecified J44.9 Ischemic cardiomyopathy I25.5 PAF (paroxysmal atrial fibrillation) I48.0 Time Spent (min) 35
== END 2024-02-10 13:37 | disposition home health service (06) | DRG 291 ==
LOC: ED 13:16 → SUATTDRO 16:05 → 2W 16:05
DX: Z66 Do not resuscitate; E78.5 Hyperlipidemia, unspecified; Z79.899 Other long term (current) drug therapy; Z79.890 Hormone replacement therapy; I24.89 Other forms of acute ischemic heart disease; J44.9 Chronic obstructive pulmonary disease, unspecified; N18.4 Chronic kidney disease, stage 4 (severe); I13.0 Hypertensive heart and chronic kidney disease with heart failure and stage 1 through stage 4 chronic kidney disease, or unspecified chronic kidney disease; D63.1 Anemia in chronic kidney disease; J91.8 Pleural effusion in other conditions classified elsewhere; Z95.2 Presence of prosthetic heart valve; F32.A Depression, unspecified; I25.2 Old myocardial infarction; I25.5 Ischemic cardiomyopathy; Z79.4 Long term (current) use of insulin; K21.9 Gastro-esophageal reflux disease without esophagitis; Z86.73 Personal history of transient ischemic attack (TIA), and cerebral infarction without residual deficits; I48.0 Paroxysmal atrial fibrillation; I50.43 Acute on chronic combined systolic (congestive) and diastolic (congestive) heart failure; Z95.810 Presence of automatic (implantable) cardiac defibrillator; Z91.040 Latex allergy status; Z79.01 Long term (current) use of anticoagulants; Z88.5 Allergy status to narcotic agent; I08.0 Rheumatic disorders of both mitral and aortic valves; E03.9 Hypothyroidism, unspecified

== ENCOUNTER 2024-02-13 05:03 | Inpatient (IN) ==
--- NOTE | 2024-02-13 05:19 | Emergency Department Note ---
History of Present Illness General Chief complaint: Fall Stated complaint: MULTIPLE FALLS Time Seen by Provider: 02/13/24 05:14 History of Present Illness This 79-year-old female who was recently discharged from the hospital for heart failure presents to the ER complaining of increasing weakness with frequent falls. Patient states she is too weak to walk. She lives alone by herself. Patient is fallen multiple times over the past 3 days and has hit her head and her upper back. Patient denies chest pain, dyspnea, abdominal pain, fever, chills, localized weakness. Home Medications Medication Instructions Recorded Confirmed Type vitamin E 268 mg (400 unit) capsule 400 unit PO QAM 03/29/20 02/13/24 History cholecalciferol (vitamin D3) 25 1,000 unit PO QAM 05/17/21 02/13/24 History mcg (1,000 unit) capsule trazodone 50 mg tablet 50 mg PO HS PRN insomnia #90 tabs 06/23/22 02/13/24 Rx insulin aspar prt-insulin aspart 15 - 30 unit (0.15 - 0.3 mL) 11/28/22 02/13/24 Rx 100 unit/mL (70-30) subcutaneous subcut AMPM #30 mL soln (Novolog Mix 70-30 U-100 Insuln) polyethylene glycol 3350 17 17 g PO TID #119 grams 12/23/22 02/13/24 Rx gram/dose oral powder (Miralax) sennosides 8.6 mg capsule (senna) 8.6 mg PO DAILY PRN constipation 12/23/22 02/13/24 Rx #10 caps flash glucose scanning reader #6 ea 07/24/23 01/31/24 Rx (FreeStyle Rossy 14 Day [place]) potassium gluconate 595 mg (99 mg) 595 mg PO DAILY PRN With Bumex 08/25/23 02/13/24 History tablet levothyroxine 75 mcg tablet 75 mcg PO QAM #90 tabs 10/27/23 02/13/24 Rx apixaban 2.5 mg tablet (Eliquis) 2.5 mg PO BID #180 tabs 10/30/23 02/13/24 Rx calcitriol 0.25 mcg capsule 0.25 mcg PO 3XWK #12 caps 10/30/23 02/13/24 Rx (Rocaltrol) ranolazine 500 mg tablet,extended 500 mg PO BID #180 tabs 11/14/23 02/13/24 Rx release,12 hr carvedilol 3.125 mg tablet 3.125 mg PO BID #180 tabs 12/28/23 02/13/24 Rx ondansetron HCl 8 mg tablet 8 mg PO Q8H PRN nausea and 01/01/24 02/13/24 Rx vomiting #30 tabs sertraline 50 mg tablet 75 mg (1.5 x 50 mg) PO DAILY #135 01/01/24 02/13/24 Rx tabs magnesium oxide 400 mg (241.3 mg 400 mg PO QPM #30 tabs 01/22/24 02/13/24 Rx magnesium) tablet insulin syringe-needle U-100 0.3 #100 ea 01/23/24 01/31/24 Rx mL 31 gauge x 02/28" ticagrelor 60 mg tablet (Brilinta) 60 mg PO BID #90 tabs 01/26/24 02/13/24 Rx bumetanide 2 mg tablet 4 mg (2 x 2 mg) PO BID #200 tabs 01/30/24 02/13/24 Rx pantoprazole 40 mg tablet,delayed 40 mg PO BID #180 tabs 01/30/24 02/13/24 Rx release (Protonix) spironolactone 50 mg tablet 50 mg PO DAILY #30 tabs 01/30/24 02/13/24 Rx gabapentin 300 mg capsule 300 mg PO TID 01/31/24 02/13/24 History flash glucose sensor (FreeStyle #1 ea 02/06/24 Rx Rossy 14 Day Sensor kit) Allergies Allergy/AdvReac Type Severity Reaction Status Date / Time adhesive Allergy Intermediate REDNESS Verified 01/30/24 09:26 AND IRRITATION FROM PAIN PATCH, TAPE latex Allergy Intermediate ALLERGIC Verified 01/30/24 09:26 TO LATEX TAPE/RASH/ITCHING morphine Allergy Intermediate swelling Verified 01/30/24 09:26 nausea vomiting olmesartan Allergy Unknown UNKNOWN Verified 01/30/24 09:26 benzonatate AdvReac Intermediate confusion Verified 01/30/24 09:26 [From Tessalon Perles] dulaglutide [From Trulicity] AdvReac Intermediate AFFECTS Verified 01/30/24 09:26 MUSCLES exenatide [From Byetta] AdvReac Intermediate Diarrhea Verified 01/30/24 09:26 ezetimibe AdvReac Intermediate MUSCLE Verified 01/30/24 09:26 ACHES glipizide AdvReac Intermediate Diarrhea Verified 01/30/24 09:26 glyburide AdvReac Intermediate Diarrhea Verified 01/30/24 09:26 lisinopril AdvReac Intermediate LIGHTHEADED Verified 01/30/24 09:26 AND DIZZY losartan AdvReac Intermediate dizziness Verified 01/30/24 09:26 metformin AdvReac Intermediate Diarrhea Verified 01/30/24 09:26 pioglitazone AdvReac Intermediate DIARRHEA Verified 01/30/24 09:26 NAUSEA sitagliptin [From Octuvia] AdvReac Intermediate Diarrhea Verified 01/30/24 09:26 Zroqdpo-CLD-FaH Reductase AdvReac Intermediate myalgias Verified 01/30/24 09:26 Inhibitor and [Epalstv-Vtn-Esn Reductase weakness Inhibitor] aspirin AdvReac Mild GI SYMPTOMS Verified 01/30/24 09:26 Past Med/Surg History Medical History Palliative care by specialist Advanced care planning/counseling discussion Muscular deconditioning Weakness generalized Dyspnea and respiratory abnormalities Osteoarthritis Orthostasis Hyperlipidemia Acute kidney injury superimposed on chronic kidney disease Non-ST elevation NE (NSTEMI) Depression Nausea and vomiting after administration of anesthetic agent severe PONV s/p Left carotid surgery 09/27/21 at [facility] PAF (paroxysmal atrial fibrillation) History of CVA (cerebrovascular accident) Had RUE weakness and numbness after 09/17/21 breast surgery- CT scan of head negative; unable to do MRI due to ICD Per PCP records 10/22/21= "[place] her post op RUE sx related to possible small stroke/TIA" Breast cancer, right Right breast mastectomy 09/17/21 at [facility] Subclavian artery stenosis Rheumatoid arthritis No medications Followed with rheum in the past- no recent issues Chronic kidney disease STAGE IV-F/U DR SALINAS Diabetes mellitus, type 2 Glucose fluctuates SOB (shortness of breath) on exertion DVT (deep venous thrombosis) LOWER LEG 2019 Ischemic cardiomyopathy Insomnia Biventricular ICD (implantable cardioverter-defibrillator) in place (04/30/20) [employer] implanted 04/30/2020. Capped right ventricular pacing lead Last check 09/2021 Antiplatelet or antithrombotic long-term use Secondary hyperparathyroidism of renal origin Anemia due to chronic kidney disease Chronic obstructive pulmonary disease, unspecified Breathing stable CAD (coronary artery disease) F/U DR CUEVA S/p NATY x 1 to Cx in 2018; NATY to ostial LM 01/10/20 Aortic stenosis, severe S/p TAVR 10/2019 PAD (peripheral artery disease) S/p CAPTAIN AIRLINE PILOT and stenting of right SFA, and CAPTAIN AIRLINE PILOT of left SFA and common femoral artery Spondylosis Pulmonary hypertension RVSP 50-60mmHg on 12/2023 ECHO NSTEMI (non-ST elevated myocardial infarction) Most recent 12/2019 (mild per patient) Chronic combined systolic and diastolic CHF (congestive heart failure) EF 40% per 10/16/21 ECHO GERD (gastroesophageal reflux disease) Hypothyroidism Left bundle branch block Bilateral carotid artery stenosis H/o bilateral CEAs in 2016 Per 07/2021 vascular note- carotid ultrasound from office visit showed patent right CEA with velocities suggesting 50-59% stenosis restenosis Patent left CEA with velocities suggesting 99% restenosis - had re-do of left CEA 09/27/21 Surgical History S/P AV hiren ablation (06/30/22) H/O heart artery stent H/O colonoscopy History of left-sided carotid endarterectomy (09/27/21) redo L ALEXA, Dr Bateman Status post partial mastectomy of right breast (09/17/21) 09/17/21 - Done under [facility] with LMA #4. Atraumatic LMA insertion. Magnet placed secondary to pacemaker. Right Breast Partial Mastectomy with [place] [employer] Assistant Localization, Right Axillary [place] Lymph Node Biopsy(Right) - Hua Acosta DO History of cardiac cath TOTAL 6? STENTS- 2018 and 2019 S/P coronary artery stent placement (10/2018) NATY prox mid LAD S/P coronary artery stent placement (10/2017) NATY to mid LAD S/P carotid endarterectomy B/l 2016 S/P thoracentesis (03/2020) b/l d/t CHF S/P angioplasty (02/03/21) CAPTAIN AIRLINE PILOT L SFA 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) History of oophorectomy History of hysterectomy History of cholecystectomy H/O: section History of cataract surgery right and left History of appendectomy Family History Daughter Coronary heart disease Cardiac stent Diabetes Mother , 83yo Diabetes Family history of hypercholesterolemia Myocardial infarction Hypertension Stroke Brother Colorectal cancer 1/2 brother Father , Accident in war Brother Diabetes 1/2 brother;Complications of DM Family/Other Myocardial infarction 1/2 sister Son Coronary heart disease Cardiac stent Hypertension Other Pacemaker Denies family history of Ovarian cancer Prostate cancer Breast cancer Social History Smoking Status: Former smoker Second Hand Exposure: No; Do You Dip or Chew Tobacco: No; Hx Alcohol Use: Yes Hx Substance Use: No Preferred Language: Mozambican Communication Ability: Effective Visual Impairment: No Limitations Hearing Ability: Hard of Hearing Paperhanger Assistant Required: No Beliefs That Will Affect Care: None marital status: / marital status details: passed 2000 Current Living Situation: Alone current occupational status: retired 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 How many Children do You have: 2 Feels Safe at Home: Yes Diet: regular caffeine: Yes (1 cup/day) during the past year weight has: remained stable Dental Care, Regularly: No Physical Activity Frequency: Daily Seatbelt Use: always Assistive Devices: Cane and Walker Review of Systems A total of 10 systems reviewed and were otherwise negative Physical Exam Vital Signs Vital Signs - 24 hr 02/13/24 05:10 02/13/24 05:13 02/13/24 05:13 Temperature 36.5 C Temperature Source Oral Pulse Rate 79 80 Pulse Rate [Apical] 80 Pulse Rhythm [Apical] Pulse Strength [Apical] Respiratory Rate 20 20 Respiratory Effort / Characteristics Non-Labored Spontaneous Non-Labored Respiratory Depth Normal Normal Blood Pressure 115/84 Blood Pressure [Right Arm] 115/84 Blood Pressure Mean 94 Blood Pressure Mean [Right Arm] 94 Blood Pressure Position [Right Arm] Pulse Oximetry 95 95 Oxygen Delivery Method Room Air Room Air Sepsis Recent Fever Within 48 Hours No Sepsis New/Unexplained Change in Mental Status No Sepsis Action Taken by Nursing No Action Required 02/13/24 05:13 02/13/24 07:00 Temperature 36.5 C Temperature Source Oral Pulse Rate Pulse Rate [Apical] 75 Pulse Rhythm [Apical] Regular Pulse Strength [Apical] Normal Respiratory Rate 20 Respiratory Effort / Characteristics Non-Labored Respiratory Depth Normal Blood Pressure Blood Pressure [Right Arm] 117/85 Blood Pressure Mean Blood Pressure Mean [Right Arm] 95 Blood Pressure Position [Right Arm] Sitting Pulse Oximetry 95 95 Oxygen Delivery Method Room Air Room Air Sepsis Recent Fever Within 48 Hours Sepsis New/Unexplained Change in Mental Status Sepsis Action Taken by Nursing VITALS: Vitals are noted on the nurse's note and reviewed by myself. Vital signs stable. GENERAL: Pleasant female answering questions appropriately, in no acute distress, nondiaphoretic, well-developed well-nourished. SKIN: Contusion to upper back, scalp contusion, the rest of the skin was without rashes, erythema, edema, or bruising. There is no tenting of the skin. Capillary reflex less than 2 seconds. HEAD: Normocephalic EARS: External auditory canals clear EYES: Pupils equal round and reactive to light and accommodation. Conjunctivae without injection, sclerae without icterus. Extraocular movements intact. NOSE: Patent, no discharge. MOUTH: Mucous membranes moist. Pharynx without erythema or exudate. Uvula midline. Airway patent. Tongue does not deviate. NECK: Supple without nuchal rigidity. No lymphadenopathy. No thyromegaly. Cervical spine is nontender. No JVD. HEART: Regular rate and rhythm LUNGS: Clear to auscultation bilaterally without wheezes, rales or rhonchi. No retractions or accessory muscle use. ABDOMEN: Positive bowel sounds x 4. Normal tympanic percussion. Soft, nontender, without masses or organomegaly. Cerda sign negative. No guarding or rebound tenderness. No CVA tenderness MUSCULOSKELETAL: No muscle atrophy, erythema, noted. Upper thoracic tenderness. No lumbar tenderness. Upper lower extremities nontender to palpation NEURO: Patient was alert and oriented to person place and time. Normal sensation to light and sharp touch. No focal neurological deficits. Course Administered Medications Discontinued Medications Sodium Chloride (Nss) 250 mls @ 999 mls/hr IV .Q16M ONE Stop: 02/13/24 07:01 Last Infusion: 02/13/24 15:23 Dose: Infused Documented By: Admin: 02/13/24 06:52 Dose: 999 mls/hr Documented By: FELA Ondansetron HCl (Ondansetron Inj 2 Mg/Ml 2 Ml Vial) 4 mg IV NOW STA Stop: 02/13/24 05:20 Last Admin: 02/13/24 05:29 Dose: 4 mg Documented By: DEANN Ondansetron HCl (Ondansetron Inj 2 Mg/Ml 2 Ml Vial) 4 mg IV Q6H ONE Stop: 02/13/24 12:49 Last Admin: 02/13/24 13:12 Dose: 4 mg Documented By: KEYANNA Medical Decision Making Medical Records Attestation: I reviewed the patient's medical records. Home Medications Current Medication List: was personally reviewed by me Laboratory Data Attestation: I reviewed the patient's lab results. 02/13/24 05:31 02/13/24 05:31 Lab Results 02/13/24 02/13/24 Range/Units 05:31 07:36 WBC 11.24 H (4.8-10.8) K/ul RBC 3.66 L (4.20-5.40) M/uL Hgb 9.7 L (12.0-16.0) g/dl Hct 31.1 L (37.0-47.0) % MCV 85.0 (80.0-100.0) fL MCH 26.5 (25.0-34.0) pg MCHC 31.2 L (32.0-36.0) g/dL RDW Std Deviation 51.9 H (36.4-46.3) fL RDW Coeff of Manuela 16.8 H (11.5-14.5) % Plt Count 294 (130-400) K/uL MPV 10.8 (9.4-12.4) fL Immature Gran % (Auto) 0.4 % Neut % (Auto) 74.8 % Lymph % (Auto) 13.3 % [place] % (Auto) 11.0 % Eos % (Auto) 0.3 % Baso % (Auto) 0.2 % Neut # (Auto) 8.40 H (1.40-6.50) K/uL Lymph # (Auto) 1.50 (1.20-3.40) K/uL [place] # (Auto) 1.24 H (0.11-0.59) K/uL Eos # (Auto) 0.03 (0.00-0.50) K/uL Baso # (Auto) 0.02 (0.00-0.20) K/uL Immature Gran # (Auto) 0.05 (0.01-0.20) K/uL Sodium 130 L (136-145) mmol/L Potassium 5.1 (3.5-5.1) mmol/L Chloride 92 L (98-107) mmol/L Carbon Dioxide 25 (21-32) mmol/L Anion Gap 13 H (3-11) BUN 66 H (6-23) mg/dl Creatinine 3.34 H (0.6-1.2) mg/dl Est Cr Clr Drug Dosing 13.6 ml/min Est GFR ( Amer) 13.9 ml/min Est GFR (Non-Af Amer) 12.0 ml/min BUN/Creatinine Ratio 19.8 (10-20) Glucose 103 H (70-99(Fasting)) mg/dl Calcium 8.7 (8.6-10.3) mg/dl Magnesium 2.5 H (1.7-2.4) mg/dl Total Bilirubin 0.9 (0.2-1.0) mg/dl AST 94 H (13-39) U/L ALT 47 (7-52) U/L Alkaline Phosphatase 193 H (34-104) U/L Total Creatine Kinase 102 (26-192) U/L Troponin I High Sens 270.9 H* 251.4 H* (0-14) pg/ml Total Protein 6.8 (6.0-8.3) gm/dl Albumin 3.7 (3.4-5.0) gm/dl Globulin 3.1 (2.5-4.0) gm/dl Albumin/Globulin Ratio 1.2 (0.9-2) TSH 0.824 (0.300-4.500) uIu/ml Adenovirus (PCR) Not Detected (NotDetected) B. pertussis DNA (PCR) Not Detected (NotDetected) B.parapertussis DNA PCR Not Detected (NotDetected) C. pneumoniae DNA (PCR) Not Detected (NotDetected) Coronavirus OC43 (PCR) Not Detected (NotDetected) Coronavirus HKU1 (PCR) Not Detected (NotDetected) Coronavirus 229E (PCR) Not Detected (NotDetected) SARS-CoV-2 (PCR) Not Detected (NotDetected) Coronavirus NL63 (PCR) Not Detected (NotDetected) Human Metapneumovir PCR Not Detected (NotDetected) Influenza Type A (PCR) Not Detected (NotDetected) Influenza Type B (PCR) Not Detected (NotDetected) M. pneumoniae (PCR) Not Detected (NotDetected) Parainfluenza 1 (PCR) Not Detected (NotDetected) Parainfluenza 2 (PCR) Not Detected (NotDetected) Parainfluenza 3 (PCR) Not Detected (NotDetected) Parainfluenza 4 (PCR) Not Detected (NotDetected) RSV (PCR) Not Detected (NotDetected) Entero/Rhino (PCR) Not Detected (NotDetected) Imaging Data Attestation: I personally reviewed and interpreted this imaging study as follows: Radiologist's Impression: Cervical Spine CT 02/13/24 05:08 Exam(s): CT C SPINE EXAM: CT Cervical Spine Without Intravenous Contrast CLINICAL HISTORY: Reason for exam: fall, [place]. TECHNIQUE: Axial computed tomography images of the cervical spine without intravenous contrast. CTDI is 21.31 mGy and DLP is 375.84 mGy-cm. Automated exposure control was utilized for the study. A dose lowering technique was utilized adhering to the principles of ALARA. COMPARISON: No relevant prior studies available. FINDINGS: Vertebrae: There is spondylotic spurring at multiple levels of a moderate degree particularly mid to lower cervical spine. No acute fracture. Discs/spinal canal/neural foramina: No acute findings. No spinal canal stenosis. Soft tissues: Unremarkable. Vasculature: There is some vascular calcifications present. Lung apices: There is density demonstrated throughout the visualized right lung incompletely assessed on this exam. IMPRESSION: Degenerative and chronic change, no acute fracture. Lung abnormalities which could be further assessed with CT. Electronically signed by: Mayo Kaur MD 02/13/24 06:[address] 02/13/24 05:08 Exam(s): CT HEAD Without Contrast EXAM: CT Head Without Intravenous Contrast CLINICAL HISTORY: Reason for exam: fall, [place]. TECHNIQUE: Axial computed tomography images of the head/brain without intravenous contrast. CTDI is 37.51 mGy and DLP is 624.41 mGy-cm. Automated exposure control was utilized for the study. A dose lowering technique was utilized adhering to the principles of ALARA. COMPARISON: No relevant prior studies available. FINDINGS: Brain: there is some hypodensities demonstrated within the periventricular and subcortical white matter of a mild degree. No hemorrhage. Ventricles: Unremarkable. No ventriculomegaly. Bones/joints: Unremarkable. No acute fracture. Soft tissues: Unremarkable. Vasculature: Some calcifications to the cavernous carotid and vertebrobasilar arterial system. Sinuses: Unremarkable as visualized. No acute sinusitis. Mastoid air cells: Unremarkable as visualized. No mastoid effusion. IMPRESSION: Chronic ischemic microvascular change no acute bleed mass or infarction. Electronically signed by: Mayo Kaur MD 02/13/24 06:15 AM Chest X-Ray 02/13/24 05:13 XR chest 1V portable HISTORY: 83 years-old Female weakness acute weakness COMPARISON: 02/05/2024 TECHNIQUE: AP view of the chest FINDINGS: Cardiac silhouette is enlarged. Left subclavian pacer/AICD. Aortic valvular endograft with coronary arterial stenting. Pulmonary vascular congestion with interstitial coarsening. Layering pleural effusions with persistent bibasilar opacities. The right pleural effusion is mildly decreased in size. No postprocedural pneumothorax. Bones appear grossly intact. IMPRESSION: 1. Cardiomegaly with persistent pulmonary edema. 2. Layering pleural effusions with bibasilar opacities redemonstrated. ACT 112: Negative or not required by law. The above report was generated using voice recognition software. It may contain grammatical, syntax or spelling errors. Electronically signed by: Irving Lerner M.D. 02/13/2024 6:[address] 02/13/24 05:13 Exam(s): CT L SPINE EXAM: CT Lumbar Spine Without Intravenous Contrast CLINICAL HISTORY: Reason for exam: fall, pain. TECHNIQUE: Axial computed tomography images of the lumbar spine without intravenous contrast. CTDI is 21.31 mGy and DLP is 375.84 mGy-cm. Automated exposure control was utilized for the study. A dose lowering technique was utilized adhering to the principles of ALARA. COMPARISON: No relevant prior studies available. FINDINGS: Vertebrae: There is compression fracture demonstrated L1 as delineated and thoracic spine portion of the report. There is some intravertebral osteochondrosis is demonstrated at the L5-S1 level. There is degenerative spondylotic spurring demonstrated at multiple levels. Discs/spinal canal/neural foramina: See above. Soft tissues: Unremarkable. Vasculature: There are vascular calcifications present. IMPRESSION: Degenerative, chronic, posttraumatic change as described. Electronically signed by: Mayo Kaur MD 02/13/24 06:[address] 02/13/24 05:13 Exam(s): CT T SPINE EXAM: CT Thoracic Spine Without Intravenous Contrast CLINICAL HISTORY: Reason for exam: fall, pain. TECHNIQUE: Axial computed tomography images of the thoracic spine without intravenous contrast. CTDI is 21.31 mGy and DLP is 375.84 mGy-cm. Automated exposure control was utilized for the study. A dose lowering technique was utilized adhering to the principles of ALARA. COMPARISON: No relevant prior studies available. FINDINGS: Vertebrae: There is compression deformity demonstrated to the superior and to a lesser extent inferior endplate of L1 compressed in aggregate approximately 50-75%. No indication at this is acute. There is mild spondylotic spurring demonstrated at multiple levels. Discs/spinal canal/neural foramina: No acute findings. No spinal canal stenosis. Soft tissues: Unremarkable. Vasculature: There are vascular calcifications. Lungs: There is evidence of prior granulomatous disease within the lungs. Pleural space: There are moderate bilateral pleural effusions. Heart: There are postsurgical changes present within the heart. IMPRESSION: Moderate bilateral pleural effusions, degenerative and posttraumatic change as delineated above. Electronically signed by: Mayo Kaur MD 02/13/24 06:21 AM MDM Narrative Prior records/ancillary studies reviewed and summarized above. Nursing notes reviewed. Additional history obtained from EMS. The patient's history was concerning for frequent falls. Differential diagnosis: Etiologies such as trauma, neurologic, metabolic, infection, hypo/hyperglycemia, electrolyte abnormalities, cardiac sources, intracerebral event, toxicologic, neurologic, as well as others were entertained. Physical examination: As above. ER treatment provided: IV Lock An order was placed for continuous cardiac monitoring. The monitor shows a rate of 60-100 with a sinus rhythm per my interpretation. Patient was observed and given Zofran when she got nauseous On reassessment the patient felt better. Diagnostics interpretation by me: ECG: Ordered for weakness EKG: Paced rhythm with no Sgarbossa. Ventricular rate of 71. Impression paced rhythm independently interpreted by myself The labs Independently Interpreted by myself revealed mild leukocytosis, stable anemia per chart review Elevated troponin. Creatinine 3.3 which is slightly higher than baseline. Imaging studies: Imaging as above Chest x-ray with pleural effusions stable per chart review. Per my independent interpretation. Consultation: A consultation was placed with the hospitalist. The case was discussed and diagnostics were reviewed. The patient was evaluated in the ER for further treatment. Exam and history seem consistent with increasing weakness with frequent falls with an elevated troponin most likely type II NE. Patient lives alone. She has had multiple falls. She states she is too weak to walk. Medicine was consulted and the case was discussed. She will be admitted to the medical service. By the evaluation outlined above emergent etiologies such as electrolyte abnormalities, intracerebral event, toxologic, neurologic, abnormalities blood glucose, metabolic, as well as others were deemed relatively unlikely. The pt informed about the findings as listed above. All questions were answered and pleased with the treatment. The chart was completed utilizing [employer] Speech voice recognition software. Grammatical errors, random word insertions, pronoun errors, and incomplete sentences are an occassional consequence of this system due to software limitations, ambient noise, and hardware issues. Any formal questions or concerns about the content, text, or information contained within the body of this dictation should be directly addressed to the physician assistant softball coach for clarification. Impression & Plan Weakness, Multiple falls, Head injury, Elevated troponin Discharge Plan Visit Data Chief Complaint: Fall Stated Complaint: MULTIPLE FALLS ED Provider: Dorina Lacey ED Midlevel Provider: Zahira Morris Discharge Problem: Weakness, Multiple falls, Head injury, Elevated troponin Patient Disposition: Admitted As Inpatient Condition: Fair Discharge Instructions Interventions: ED Discharge Assessment Last Done: 02/13/24 14:46
[2024-02-13] MEDS: ONDANSETRON INJ 2 MG/ML 2 ML VIAL IV STA (05:29)
[2024-02-13 06:00] LABS: Basophils # (auto) 0.02 K/uL (0.00-0.20); Basophils % (auto) 0.2 %; Eosinophils # (auto) 0.03 K/uL (0.00-0.50); Eosinophils % (auto) 0.3 %; Hematocrit (blood only) 31.1 % (37.0-47.0); Hemoglobin 9.7 g/dl (12.0-16.0); Immature Granulocytes # (auto) 0.05 K/uL (0.01-0.20); Immature Granulocytes % (auto) 0.4 %; Lymphocytes % (auto) 13.3 %; Mean Corpuscular Hemoglobin 26.5 pg (25.0-34.0); Mean Corpuscular Hgb Conc 31.2 g/dL (32.0-36.0); Mean Platelet Volume 10.8 fL (9.4-12.4); Monocytes # (auto) 1.24 K/uL (0.11-0.59); Neutrophils % (auto) 74.8 %; Platelet Count 294 K/uL (130-400); RDW Coefficient of Variation 16.8 % (11.5-14.5); RDW Standard Deviation 51.9 fL (36.4-46.3); Red Blood Count 3.66 M/uL (4.20-5.40); White Blood Count 11.24 K/ul (4.8-10.8)
[2024-02-13 06:15] LABS: Albumin Globulin Ratio 1.2 (0.9-2); Albumin Level 3.7 gm/dl (3.4-5.0); BUN Creatinine Ratio 19.8 (10-20); Bilirubin,Total 0.9 mg/dl (0.2-1.0); Calcium 8.7 mg/dl (8.6-10.3); Creatinine Clr Calc Pharmacy 13.6 ml/min; Est GFR (African American) 13.9 ml/min; Globulin 3.1 gm/dl (2.5-4.0); Magnesium 2.5 mg/dl (1.7-2.4); Potassium 5.1 mmol/L (3.5-5.1); Total Protein 6.8 gm/dl (6.0-8.3)
--- NOTE | 2024-02-13 06:15 | CT Scan Report ---
Exam(s): CT HEAD Without Contrast EXAM: CT Head Without Intravenous Contrast CLINICAL HISTORY: Reason for exam: fall, [place]. TECHNIQUE: Axial computed tomography images of the head/brain without intravenous contrast. CTDI is 37.51 mGy and DLP is 624.41 mGy-cm. Automated exposure control was utilized for the study. A dose lowering technique was utilized adhering to the principles of ALARA. COMPARISON: No relevant prior studies available. FINDINGS: Brain: there is some hypodensities demonstrated within the periventricular and subcortical white matter of a mild degree. No hemorrhage. Ventricles: Unremarkable. No ventriculomegaly. Bones/joints: Unremarkable. No acute fracture. Soft tissues: Unremarkable. Vasculature: Some calcifications to the cavernous carotid and vertebrobasilar arterial system. Sinuses: Unremarkable as visualized. No acute sinusitis. Mastoid air cells: Unremarkable as visualized. No mastoid effusion. IMPRESSION: Chronic ischemic microvascular change no acute bleed mass or infarction. Electronically signed by: Mayo Kaur MD 02/13/24 06:15 AM
--- NOTE | 2024-02-13 06:18 | CT Scan Report ---
Exam(s): CT C SPINE EXAM: CT Cervical Spine Without Intravenous Contrast CLINICAL HISTORY: Reason for exam: fall, [place]. TECHNIQUE: Axial computed tomography images of the cervical spine without intravenous contrast. CTDI is 21.31 mGy and DLP is 375.84 mGy-cm. Automated exposure control was utilized for the study. A dose lowering technique was utilized adhering to the principles of ALARA. COMPARISON: No relevant prior studies available. FINDINGS: Vertebrae: There is spondylotic spurring at multiple levels of a moderate degree particularly mid to lower cervical spine. No acute fracture. Discs/spinal canal/neural foramina: No acute findings. No spinal canal stenosis. Soft tissues: Unremarkable. Vasculature: There is some vascular calcifications present. Lung apices: There is density demonstrated throughout the visualized right lung incompletely assessed on this exam. IMPRESSION: Degenerative and chronic change, no acute fracture. Lung abnormalities which could be further assessed with CT. Electronically signed by: Mayo Kaur MD 02/13/24 06:17 AM
--- NOTE | 2024-02-13 06:22 | CT Scan Report ---
Exam(s): CT T SPINE EXAM: CT Thoracic Spine Without Intravenous Contrast CLINICAL HISTORY: Reason for exam: fall, pain. TECHNIQUE: Axial computed tomography images of the thoracic spine without intravenous contrast. CTDI is 21.31 mGy and DLP is 375.84 mGy-cm. Automated exposure control was utilized for the study. A dose lowering technique was utilized adhering to the principles of ALARA. COMPARISON: No relevant prior studies available. FINDINGS: Vertebrae: There is compression deformity demonstrated to the superior and to a lesser extent inferior endplate of L1 compressed in aggregate approximately 50-75%. No indication at this is acute. There is mild spondylotic spurring demonstrated at multiple levels. Discs/spinal canal/neural foramina: No acute findings. No spinal canal stenosis. Soft tissues: Unremarkable. Vasculature: There are vascular calcifications. Lungs: There is evidence of prior granulomatous disease within the lungs. Pleural space: There are moderate bilateral pleural effusions. Heart: There are postsurgical changes present within the heart. IMPRESSION: Moderate bilateral pleural effusions, degenerative and posttraumatic change as delineated above. Electronically signed by: Mayo Kaur MD 02/13/24 06:21 AM
--- NOTE | 2024-02-13 06:25 | CT Scan Report ---
Exam(s): CT L SPINE EXAM: CT Lumbar Spine Without Intravenous Contrast CLINICAL HISTORY: Reason for exam: fall, pain. TECHNIQUE: Axial computed tomography images of the lumbar spine without intravenous contrast. CTDI is 21.31 mGy and DLP is 375.84 mGy-cm. Automated exposure control was utilized for the study. A dose lowering technique was utilized adhering to the principles of ALARA. COMPARISON: No relevant prior studies available. FINDINGS: Vertebrae: There is compression fracture demonstrated L1 as delineated and thoracic spine portion of the report. There is some intravertebral osteochondrosis is demonstrated at the L5-S1 level. There is degenerative spondylotic spurring demonstrated at multiple levels. Discs/spinal canal/neural foramina: See above. Soft tissues: Unremarkable. Vasculature: There are vascular calcifications present. IMPRESSION: Degenerative, chronic, posttraumatic change as described. Electronically signed by: Mayo Kaur MD 02/13/24 06:24 AM
[2024-02-13 06:29] LABS: Troponin I High Sensitivity 270.9 pg/ml (0-14)
[2024-02-13 06:31] LABS: Thyroid Stimulating Hormone 0.824 uIu/ml (0.300-4.500)
--- NOTE | 2024-02-13 06:48 | XRay Report ---
XR chest 1V portable HISTORY: 83 years-old Female weakness acute weakness COMPARISON: 02/05/2024 TECHNIQUE: AP view of the chest FINDINGS: Cardiac silhouette is enlarged. Left subclavian pacer/AICD. Aortic valvular endograft with coronary arterial stenting. Pulmonary vascular congestion with interstitial coarsening. Layering pleu ral effusions with persistent bibasilar opacities. The right pleural effusion is mildly decreased in size. No postprocedural pneumothorax. Bones appear grossly intact. IMPRESSION: 1. Cardiomegaly with persistent pulmonary edema. 2. Layering pleural effusions with bibasilar opacities redemonstrated. ACT 112: Negative or not required by law. The above report was generated using voice recognition software. It may contain grammatical, syntax o r spelling errors. Electronically signed by: Irving Lerner M.D. 02/13/2024 6:46 AM
[2024-02-13] MEDS: SODIUM CHLORIDE 0.9% 250 ML IV ONE (06:52)
[2024-02-13 06:57] LABS: Adenovirus PCR Not Detected (NotDetected); Bordetella parapertussis PCR Not Detected (NotDetected); Bordetella pertussis PCR Not Detected (NotDetected); Chlamydia pneumoniae PCR Not Detected (NotDetected); Coronavirus 229E PCR Not Detected (NotDetected); Coronavirus CoV-2 (COVID19)PCR Not Detected (NotDetected); Coronavirus HKU1 PCR Not Detected (NotDetected); Coronavirus NL63 PCR Not Detected (NotDetected); Coronavirus OC43PCR Not Detected (NotDetected); Human Metapneumovirus PCR Not Detected (NotDetected); Influenza A PCR Not Detected (NotDetected); Influenza B PCR Not Detected (NotDetected); Mycoplasma pneumoniae PCR Not Detected (NotDetected); Parainfluenza Virus 1 PCR Not Detected (NotDetected); Parainfluenza Virus 2 PCR Not Detected (NotDetected); Parainfluenza Virus 3 PCR Not Detected (NotDetected); Parainfluenza Virus 4 PCR Not Detected (NotDetected); Respiratory Syncytial VirusPCR Not Detected (NotDetected); Rhinovirus/Enterovirus PCR Not Detected (NotDetected)
--- NOTE | 2024-02-13 07:04 | Emergency Department Note ---
ED Visit Note I was consulted by the Advanced Practice Provider. I personally made/approved the management plan and take responsibility for the patient management. I performed a substantive portion of the visit. This includes the aspects of: Personally seeing the patient MDM I independently interpreted the following studies: Portable chest x-ray
[2024-02-13 10:34] LABS: Appearance Urine Clear (Clear); Bacteria Urine Automated None Seen (None Seen); Bilirubin Urine Negative (Negative); Blood Urine Negative (Negative); Color Urine Dark Yellow; Epithelial Cell Urine Auto 0-2 /hpf (0-2); Glucose Urine UA Negative (Negative); Ketones Urine Trace (Negative); Leukocyte Esterase Urine Trace (Negative); Nitrite Urine Negative (Negative); Protein Urine 1+ (Negative); RBC Urine Automated 0-2 /hpf (0-2); Specific Gravity Urine 1.014 (1.000-1.030); Urobilinogen Urine Negative (Negative); WBC Urine Automated 0-5 /hpf (0-5); pH Urine 5.5 (4.5-7.5)
[2024-02-13] MEDS: ONDANSETRON INJ 2 MG/ML 2 ML VIAL IV ONE (13:12)
[2024-02-13] MEDS ORDERED: ACETAMINOPHEN 325 MG TAB PO PRN (15:25)
[2024-02-13] MEDS ORDERED: GLUCOSE 40% GEL 15 GM TUBE PO PRN (15:25)
[2024-02-13] MEDS ORDERED: traZODone HCL 50 MG TAB PO PRN (15:25)
[2024-02-13] MEDS ORDERED: ONDANSETRON 8MG OD TAB PO PRN (15:25)
[2024-02-13] MEDS ORDERED: DEXTROSE 50% 50 ML SYRINGE IV PRN (15:25)
[2024-02-13] MEDS ORDERED: SENNA 8.6 MG TAB PO PRN (15:25)
[2024-02-13] MEDS ORDERED: GLUCAGON FOR INJ 1 MG VIAL SQ PRN (15:25)
[2024-02-13] MEDS ORDERED: NON-FORMULARY MEDICATION (Potassium Gluconate 595 mg (99 mg) tablet) PO PRN (15:25)
[2024-02-13] MEDS ORDERED: GLUCOSE 10 TAB/TUBE PO PRN (15:25)
[2024-02-13] MEDS ORDERED: ALUMINUM/MAGNESIUM SUSP 30 ML UDC PO PRN (15:25)
[2024-02-13] MEDS ORDERED: CARBOHYDRATES FOR HYPOGLYCEMIA PO PRN (15:25)
--- NOTE | 2024-02-13 15:32 | History & Physical Report ---
Date of Service February 13, 2024 Assessment & Plan (1) Multiple falls: Plan: - Presents after multiple falls at home following recent hospital discharge on 02/10/2024. - CT of thoracic spine, lumbar spine, head, cervical spine as well as CXR revealed moderate bilateral pleural effusions and cardiomegaly with persistent pulmonary edema otherwise negative for acute processes. - Respiratory bio fire negative on admission. - UA negative on admission. - TSH WNL. - PT OT consults. - I suspect the patient will require rehab placement upon discharge given failure to thrive at home after recent hospitalization. (2) Heart failure with mildly reduced ejection fraction (HFmrEF): Plan: - Most recent echo 12/18/2023 revealed EF= 40-45%. - Follows with heart failure clinic. Multiple recent admissions due to heart failure exacerbations. - Troponin elevated on admission at 270. Repeat 251. Patient denies chest pain. No acute ECG changes. Most likely due to demand ischemia. - Moderate bilateral pleural effusions and persistent pulmonary edema. - Continue spironolactone, Eliquis, Ranexa, carvedilol - 1800 ml fluid restriction - Monitor daily weights - Monitor renal function and electrolytes daily (3) CKD (chronic kidney disease) stage 4, GFR 15-29 ml/min: Plan: - Suspect cardiorenal syndrome in setting of hyponatremia and acute on chronic kidney injury - Nephrology consulted - Avoid nephrotoxic agents when possible (4) DM II (diabetes mellitus, type II), controlled: Plan: - Monitor BSG ACHS, goal is 90-140 - CF 20, CR 12 - Heart healthy/DM 2 diet - Adjust regimen as needed (5) PAF (paroxysmal atrial fibrillation): Plan: - Currently in paced rhythm - Continue Carvedilol and Eliquis Plan CODE STATUS: DNR/DNI History of Present Illness Chief Complaint: Multiple falls Primary Care Provider: Ebony Alvarenga DO Mrs. 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 She was recently hospitalized at [facility] for a CHF exacerbation and discharged back home on 02/10/2024. Since being home, patient has experienced multiple falls due to weakness. She reports hitting her head and her upper back. She denies any loss of consciousness. She had CT of her thoracic spine, lumbar spine, head, and cervical spine, as well as a chest x- ray. Imaging was significant for moderate bilateral pleural effusions, and cardiomegaly with persistent pulmonary edema, but otherwise no acute processes noted. She does have extensive bruising around T1, her left upper arm, left lower abdominal quadrant, as well as diffuse bruising on bilateral arms and legs. It appears that there is some cardiorenal syndrome occurring with hyponatremia as well as acute on chronic kidney injury. The patient appears to be intravascu larly depleted, while still having 1+ bilateral lower extremity edema and moderate bilateral pleural effusions. Nephrology has been consulted. Currently, the patient endorses nausea relieved by Zofran and minor headache. She reports generalized weakness. Patient denies chest pain, dyspnea, abdominal pain, fever, chills, or localized weakness. PT and OT consults have been placed. Allergies Allergy/AdvReac Type Severity Reaction Status Date / Time adhesive Allergy Intermediate REDNESS Verified 01/30/24 09:26 AND IRRITATION FROM PAIN PATCH, TAPE latex Allergy Intermediate ALLERGIC Verified 01/30/24 09:26 TO LATEX TAPE/RASH/ITCHING morphine Allergy Intermediate swelling Verified 01/30/24 09:26 nausea vomiting olmesartan Allergy Unknown UNKNOWN Verified 01/30/24 09:26 benzonatate AdvReac Intermediate confusion Verified 01/30/24 09:26 [From Tessalon Perlluis fernando] dulaglutide [From Trulicity] AdvReac Intermediate AFFECTS Verified 01/30/24 09:26 MUSCLES exenatide [From Byetta] AdvReac Intermediate Diarrhea Verified 01/30/24 09:26 ezetimibe AdvReac Intermediate MUSCLE Verified 01/30/24 09:26 ACHES glipizide AdvReac Intermediate Diarrhea Verified 01/30/24 09:26 glyburide AdvReac Intermediate Diarrhea Verified 01/30/24 09:26 lisinopril AdvReac Intermediate LIGHTHEADED Verified 01/30/24 09:26 AND DIZZY losartan AdvReac Intermediate dizziness Verified 01/30/24 09:26 metformin AdvReac Intermediate Diarrhea Verified 01/30/24 09:26 pioglitazone AdvReac Intermediate DIARRHEA Verified 01/30/24 09:26 NAUSEA sitagliptin [From ] AdvReac Intermediate Diarrhea Verified 01/30/24 09:26 Oxgjgrp-QXM-PiI Reductase AdvReac Intermediate myalgias Verified 01/30/24 09:26 Inhibitor and [Xofvbpd-Qvg-Ckj Reductase weakness Inhibitor] aspirin AdvReac Mild GI SYMPTOMS Verified 01/30/24 09:26 Home Medications Medication Instructions Recorded Confirmed Type vitamin E 268 mg (400 unit) capsule 400 unit PO QAM 03/29/20 02/13/24 History cholecalciferol (vitamin D3) 25 1,000 unit PO QAM 05/17/21 02/13/24 History mcg (1,000 unit) capsule trazodone 50 mg tablet 50 mg PO HS PRN insomnia #90 tabs 06/23/22 02/13/24 Rx insulin aspar prt-insulin aspart 15 - 30 unit (0.15 - 0.3 mL) 11/28/22 02/13/24 Rx 100 unit/mL (70-30) subcutaneous subcut AMPM #30 mL soln (Novolog Mix 70-30 U-100 Insuln) polyethylene glycol 3350 17 17 g PO TID #119 grams 12/23/22 02/13/24 Rx gram/dose oral powder (Miralax) sennosides 8.6 mg capsule (senna) 8.6 mg PO DAILY PRN constipation 12/23/22 02/13/24 Rx #10 caps flash glucose scanning reader #6 ea 07/24/23 01/31/24 Rx (FreeStyle Rossy 14 Day Marana) potassium gluconate 595 mg (99 mg) 595 mg PO DAILY PRN With Bumex 08/25/23 02/13/24 History tablet levothyroxine 75 mcg tablet 75 mcg PO QAM #90 tabs 10/27/23 02/13/24 Rx apixaban 2.5 mg tablet (Eliquis) 2.5 mg PO BID #180 tabs 10/30/23 02/13/24 Rx calcitriol 0.25 mcg capsule 0.25 mcg PO 3XWK #12 caps 10/30/23 02/13/24 Rx (Rocaltrol) ranolazine 500 mg tablet,extended 500 mg PO BID #180 tabs 11/14/23 02/13/24 Rx release,12 hr carvedilol 3.125 mg tablet 3.125 mg PO BID #180 tabs 12/28/23 02/13/24 Rx ondansetron HCl 8 mg tablet 8 mg PO Q8H PRN nausea and 01/01/24 02/13/24 Rx vomiting #30 tabs sertraline 50 mg tablet 75 mg (1.5 x 50 mg) PO DAILY #135 01/01/24 02/13/24 Rx tabs magnesium oxide 400 mg (241.3 mg 400 mg PO QPM #30 tabs 01/22/24 02/13/24 Rx magnesium) tablet insulin syringe-needle U-100 0.3 #100 ea 01/23/24 01/31/24 Rx mL 31 gauge x 02/28" ticagrelor 60 mg tablet (Brilinta) 60 mg PO BID #90 tabs 01/26/24 02/13/24 Rx bumetanide 2 mg tablet 4 mg (2 x 2 mg) PO BID #200 tabs 01/30/24 02/13/24 Rx pantoprazole 40 mg tablet,delayed 40 mg PO BID #180 tabs 01/30/24 02/13/24 Rx release (Protonix) spironolactone 50 mg tablet 50 mg PO DAILY #30 tabs 01/30/24 02/13/24 Rx gabapentin 300 mg capsule 300 mg PO TID 01/31/24 02/13/24 History flash glucose sensor (FreeStyle #1 ea 02/06/24 Rx Rossy 14 Day Sensor kit) Past Med/Surg History Medical History Palliative care by specialist Advanced care planning/counseling discussion Muscular deconditioning Weakness generalized Dyspnea and respiratory abnormalities Osteoarthritis Orthostasis Hyperlipidemia Acute kidney injury superimposed on chronic kidney disease Non-ST elevation MD (NSTEMI) Depression Nausea and vomiting after administration of anesthetic agent severe PONV s/p Left carotid surgery 09/27/21 at [facility] PAF (paroxysmal atrial fibrillation) History of CVA (cerebrovascular accident) Had RUE weakness and numbness after 09/17/21 breast surgery- CT scan of head negative; unable to do MRI due to ICD Per PCP records 10/22/21= "[place] her post op RUE sx related to possible small stroke/TIA" Breast cancer, right Right breast mastectomy 09/17/21 at [facility] Subclavian artery stenosis Rheumatoid arthritis No medications Followed with rheum in the past- no recent issues Chronic kidney disease STAGE IV-F/U DR SALINAS Diabetes mellitus, type 2 Glucose fluctuates SOB (shortness of breath) on exertion DVT (deep venous thrombosis) LOWER LEG 2019 Ischemic cardiomyopathy Insomnia Biventricular ICD (implantable cardioverter-defibrillator) in place (04/30/20) [employer] implanted 04/30/2020. Capped right ventricular pacing lead Last check 09/2021 Antiplatelet or antithrombotic long-term use Secondary hyperparathyroidism of renal origin Anemia due to chronic kidney disease Chronic obstructive pulmonary disease, unspecified Breathing stable CAD (coronary artery disease) F/U DR CUEVA S/p NATY x 1 to Cx in 2018; NATY to ostial LM 01/10/20 Aortic stenosis, severe S/p TAVR 10/2019 PAD (peripheral artery disease) S/p EXECUTIVE TEAM LEADER and stenting of right SFA, and EXECUTIVE TEAM LEADER of left SFA and common femoral artery Spondylosis Pulmonary hypertension RVSP 50-60mmHg on 12/2023 ECHO NSTEMI (non-ST elevated myocardial infarction) Most recent 12/2019 (mild per patient) Chronic combined systolic and diastolic CHF (congestive heart failure) EF 40% per 10/16/21 ECHO GERD (gastroesophageal reflux disease) Hypothyroidism Left bundle branch block Bilateral carotid artery stenosis H/o bilateral CEAs in 2016 Per 07/2021 vascular note- carotid ultrasound from office visit showed patent right CEA with velocities suggesting 50-59% stenosis restenosis Patent left CEA with velocities suggesting 99% restenosis - had re-do of left CEA 09/27/21 Surgical History S/P AV hiren ablation (06/30/22) H/O heart artery stent H/O colonoscopy History of left-sided carotid endarterectomy (09/27/21) redo L CEA, Dr Bateman Status post partial mastectomy of right breast (09/17/21) 09/17/21 - Done under [place] with LMA #4. Atraumatic LMA insertion. Magnet placed secondary to pacemaker. Right Breast Partial Mastectomy with [place] Feed Mixer Helper Localization, Right Axillary Placedo Lymph Node Biopsy(Right) - Hua Acosta, DO History of cardiac cath TOTAL 6? STENTS- 2018 and 2019 S/P coronary artery stent placement (10/2018) NATY prox mid LAD S/P coronary artery stent placement (10/2017) NATY to mid LAD S/P carotid endarterectomy B/l 2016 S/P thoracentesis (03/2020) b/l d/t CHF S/P angioplasty (02/03/21) EXECUTIVE TEAM LEADER L SFA 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) History of oophorectomy History of hysterectomy History of cholecystectomy H/O: section History of cataract surgery right and left History of appendectomy Family History Daughter Coronary heart disease Cardiac stent Diabetes Mother , 83yo Diabetes Family history of hypercholesterolemia Myocardial infarction Hypertension Stroke Brother Colorectal cancer 1/2 brother Father , Accident in war Brother Diabetes 1/2 brother;Complications of DM Family/Other Myocardial infarction 1/2 sister Son Coronary heart disease Cardiac stent Hypertension Other Pacemaker Denies family history of Ovarian cancer Prostate cancer Breast cancer Social History Smoking Status: Former smoker Second Hand Exposure: No; Do You Dip or Chew Tobacco: No; Hx Alcohol Use: Yes Hx Substance Use: No Preferred Language: Guinean Communication Ability: Effective Visual Impairment: No Limitations Hearing Ability: Hard of Hearing Deputy County Clerk Required: No Beliefs That Will Affect Care: None marital status: / marital status details: passed 2000 Current Living Situation: Alone current occupational status: retired 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 Skin: Contusions noted on midline upper back, left upper arm, scalp, left lower abdominal quadrant. Scattered bruising noted on bilateral arms and lower extremities. 1+ edema bilateral lower extremities. Cardiac: Regular rate and rhythm without murmurs gallops or rubs. Pulm: No respiratory distress. Diminished breath sounds at bases bilaterally. Breath sounds otherwise clear to auscultation. No wheezing, rales, rhonchi. Abdominal: Positive bowel sounds x 4. Soft, nontender, without masses or organomegaly. No guarding or rebound tenderness. Neuro: A&O x3. No focal neurological deficits. Results & Data Results & Data Vital Signs (Past 12 Hours) Vital Signs Temp Pulse Pulse Resp BP BP Pulse Ox 02/13/24 14:46 36.5 C 71 20 118/75 98 02/13/24 12:56 71 02/13/24 12:00 36.6 C 71 20 144/78 H 98 02/13/24 10:38 02/13/24 10:38 36.6 C 71 20 150/85 H 98 02/13/24 10:19 36.8 C 75 20 150/85 H 95 02/13/24 07:00 36.5 C 75 20 117/85 95 02/13/24 05:13 95 02/13/24 05:13 80 20 115/84 95 02/13/24 05:13 36.5 C 80 20 115/84 95 02/13/24 05:10 79 O2 Del Method 02/13/24 14:46 Room Air 02/13/24 12:56 02/13/24 12:00 Room Air 02/13/24 10:38 Room Air 02/13/24 10:38 Room Air 02/13/24 10:19 Room Air 02/13/24 07:00 Room Air 02/13/24 05:13 Room Air 02/13/24 05:13 Room Air 02/13/24 05:13 Room Air 02/13/24 05:10 Laboratory Results Reviewed CBC Reviewed chemistries Reviewed UA Reviewed respiratory bio fire Diagnostic Findings Thoracic spine CT FINDINGS: Vertebrae: There is compression deformity demonstrated to the superior and to a lesser extent inferior endplate of L1 compressed in aggregate approximately 50-75%. No indication at this is acute. There is mild spondylotic spurring demonstrated at multiple levels. Discs/spinal canal/neural foramina: No acute findings. No spinal canal stenosis. Soft tissues: Unremarkable. Vasculature: There are vascular calcifications. Lungs: There is evidence of prior granulomatous disease within the lungs. Pleural space: There are moderate bilateral pleural effusions. Heart: There are postsurgical changes present within the heart. IMPRESSION: Moderate bilateral pleural effusions, degenerative and posttraumatic change as delineated above. Lumbar spine CT FINDINGS: Vertebrae: There is compression fracture demonstrated L1 as delineated and thoracic spine portion of the report. There is some intravertebral osteochondrosis is demonstrated at the L5-S1 level. There is degenerative spondylotic spurring demonstrated at multiple levels. Discs/spinal canal/neural foramina: See above. Soft tissues: Unremarkable. Vasculature: There are vascular calcifications present. IMPRESSION: Degenerative, chronic, posttraumatic change as described. Chest x-ray FINDINGS: Cardiac silhouette is enlarged. Left subclavian pacer/AICD. Aortic valvular endograft with coronary arterial stenting. Pulmonary vascular congestion with interstitial coarsening. Layering pleural effusions with persistent bibasilar opacities. The right pleural effusion is mildly decreased in size. No postprocedural pneumothorax. Bones appear grossly intact. IMPRESSION: 1. Cardiomegaly with persistent pulmonary edema. 2. Layering pleural effusions with bibasilar opacities redemonstrated. Head CT FINDINGS: Brain: there is some hypodensities demonstrated within the periventricular and subcortical white matter of a mild degree. No hemorrhage. Ventricles: Unremarkable. No ventriculomegaly. Bones/joints: Unremarkable. No acute fracture. Soft tissues: Unremarkable. Vasculature: Some calcifications to the cavernous carotid and vertebrobasilar arterial system. Sinuses: Unremarkable as visualized. No acute sinusitis. Mastoid air cells: Unremarkable as visualized. No mastoid effusion. IMPRESSION: Chronic ischemic microvascular change no acute bleed mass or infarction. Cervical spine CT FINDINGS: Vertebrae: There is spondylotic spurring at multiple levels of a moderate degree particularly mid to lower cervical spine. No acute fracture. Discs/spinal canal/neural foramina: No acute findings. No spinal canal stenosis. Soft tissues: Unremarkable. Vasculature: There is some vascular calcifications present. Lung apices: There is density demonstrated throughout the visualized right lung incompletely assessed on this exam. IMPRESSION: Degenerative and chronic change, no acute fracture. Lung abnormalities which could be further assessed with CT. Code Status & VTE Plan VTE Prophylaxis Plan VTE Prophylaxis will be ordered: Yes Supervising Physician Co-Signing Physician Notes Patient was seen and examined independently I discussed the case with Shira WHEATLEY I reviewed pertinent past medical social family history and also the plan of care and agree with the plan of care. Patient admitted with frequent falls. Recently discharged after heart failure exacerbation. Patient's symptoms are not completely starting to be orthostatic or related to arrhythmia. She denies loss of consciousness. She is covered with bruises and typically on apixaban. Card exam is regular with a systolic ejection murmur at the left sternal border lungs are clear without wheeze or crackles abdomen is NABS soft nontender extremities without edema. She is no palmar drift but she was not able to stand due to weakness to do Romberg or good finger-nose testing. Continue to monitor patient for arrhythmia associated syncope. She appears to be volume neutral are slightly under with regard to her volume status we will check orthostatic blood pressures in the morning. Patient will likely need PT OT evaluations and rehab referral Any exceptions will be noted below PG Care Time/CCT Total # of Minutes Spent Total Time Spent with Patient: Total time spent is greater than 50% in coordination of care (as documented) at patient's floor/unit and/or counseling patient: Coding Level of Care Code 30394 INT INP/OBS CARE 3/75MIN Diagnoses Multiple falls R29.6 Heart failure with mildly reduced ejection fraction (HFmrEF) I50.22 CKD (chronic kidney disease) stage 4, GFR 15-29 ml/min N18.4 Controlled type 2 diabetes mellitus with diabetic nephropathy, with long-term current use of insulin E11.21; Z79.4 Diabetes mellitus complication detail: with nephropathy Diabetes mellitus complication status: with kidney complications Diabetes mellitus termite treater helper insulin use: with fpc use PAF (paroxysmal atrial fibrillation) I48.0 (4) DM II (diabetes mellitus, type II), controlled Diabetes mellitus complication detail: with nephropathy Diabetes mellitus complication status: with kidney complications Diabetes mellitus fpc insulin use: with fpc use Qualified Code(s): E11.21 - Type 2 diabetes mellitus with diabetic nephropathy; Z79.4 - meterman (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
--- NOTE | 2024-02-13 15:51 | Electrocardiogram Report ---
Test Reason : Blood Pressure : / mmHG Vent. Rate : 070 BPM Atrial Rate : 065 BPM P-R Int : 000 ms QRS Dur : 178 ms QT Int : 502 ms P-R-T Axes : 000 -80 105 degrees QTc Int : 542 ms Ventricular-paced rhythm Biventricular pacemaker detected Underlying atrial fibrillation Abnormal ECG When compared with ECG of 31-JAN-2024 13:26, Vent. rate has decreased BY 7 BPM Confirmed by Davion Alvarez ([id number]) on 02/13/2024 3:51:16 PM Referred By: Confirmed By:Davion Alvarez
[2024-02-13] MEDS: INSULIN ASPART PER UNIT CHARGE SC SCH (16:51)
[2024-02-13] MEDS: POLYETHYLENE (MIRALAX) 17 GM PACK PO SCH (16:51)
[2024-02-13] MEDS: carvediloL 3.125 MG TAB PO SCH (16:52)
[2024-02-13] MEDS: SPIRONOLACTONE 25 MG TAB PO SCH (16:53)
[2024-02-13] MEDS: GABAPENTIN 300 MG CAP PO SCH (16:53)
[2024-02-13] MEDS: TICAGRELOR 60 MG TAB PO SCH (20:18)
[2024-02-13] MEDS: CARBAMIDE PEROXIDE 6.5% 15 ML BTL OT SCH (20:18)
[2024-02-13] MEDS: APIXABAN 2.5 MG TAB PO SCH (20:19)
[2024-02-13] MEDS: PANTOprazole 40 MG TAB PO SCH (20:19)
[2024-02-13] MEDS: RANOLAZINE 500 MG ER TAB PO SCH (20:19)
[2024-02-13] MEDS: MAGNESIUM OXIDE 400 MG TAB PO SCH (20:20)
[2024-02-14] MEDS: LEVOTHYROXINE SODIUM 75 MCG TABLET PO SCH (05:39)
[2024-02-14] MEDS: CHOLECALCIFEROL 25 MCG (1000 UNITS) TAB PO SCH (08:10)
[2024-02-14] MEDS: TOCOPHERYL, DL-ALPHA 400 UNITS 180 MG CAP PO SCH (08:10)
[2024-02-14] MEDS: SERTRALINE HCL 50 MG TABLET PO SCH (08:12)
[2024-02-14 08:55] LABS: Hematocrit (blood only) 31.5 % (37.0-47.0); Hemoglobin 9.7 g/dl (12.0-16.0); Mean Corpuscular Hemoglobin 25.7 pg (25.0-34.0); Mean Corpuscular Hgb Conc 30.8 g/dL (32.0-36.0); Mean Corpuscular Volume 83.6 fL (80.0-100.0); Mean Platelet Volume 10.8 fL (9.4-12.4); Platelet Count 280 K/uL (130-400); RDW Standard Deviation 51.6 fL (36.4-46.3); Red Blood Count 3.77 M/uL (4.20-5.40); White Blood Count 8.31 K/ul (4.8-10.8)
[2024-02-14 09:12] LABS: Albumin Globulin Ratio 1.2 (0.9-2); Albumin Level 3.5 gm/dl (3.4-5.0); BUN Creatinine Ratio 21.2 (10-20); Bilirubin,Total 0.8 mg/dl (0.2-1.0); Calcium 8.4 mg/dl (8.6-10.3); Creatinine Clr Calc Pharmacy 13.5 ml/min; Est GFR (African American) 13.9 ml/min; Potassium 4.9 mmol/L (3.5-5.1); Total Protein 6.5 gm/dl (6.0-8.3)
[2024-02-14 11:01] LABS: Estimated Average Glucose 174 mg/dl; Hemoglobin A1C 7.7 % (4.5-5.6)
--- NOTE | 2024-02-14 12:28 | Nephrology Consultation ---
Date of Consultation February 14, 2024 Assessment & Plan (1) Acute kidney injury: (2) CKD (chronic kidney disease) stage 4, GFR 15-29 ml/min: (3) Multiple falls: (4) Weakness generalized: (5) Hyponatremia: Plan 83-year-old female with stage IV CKD, baseline creatinine around 2-2.5 mg/dl secondary to cardiorenal syndrome, chronic hyponatremia, CHF with combined systolic and diastolic dysfunction, repeated hospitalization with CHF exacerbation and pleural effusion admitted with generalized weakness, repeated falls and noted to have TRACY and hyponatremia. Creatinine was 3.3, serum sodium was 132 dropped slightly to 128 this morning. Volume status seems acceptable, off of Bumex since admission. Creatinine staying stable over the last 2 days although sodium dropped slightly. -- Agree with holding Bumex for now and assess daily as eventually most likely she will have to be back on Bumex with h/o repeated hospitalization with CHF exacerbation -- Clinically she seems euvolemic, respiratory distress could be mainly because of large right pleural effusion. If pleural effusion remains significant, may need to consider thoracentesis. -- Monitor intake and output, aim to keep even. -- Renal function and electrolyte check in the morning. -- Will check iron study, may need IV iron or Epogen Thank you for allowing me to participate in your patient's care. It was a pleasure to see Ban. History of Present Illness Reason for Consultation: TRACY, Hyponatremia Attending Physician: John Downing MD History of Present Illness Ms Ban Barry is an 83-year-old female with a PMH of stage 4 CKD, CHF, paroxysmal afib aortic stenosis s/p TAVR, admitted with generalized weakness and recurrent falls at home. Nephrology consult requested for management of TRACY, hyponatremia. EMR records were reviewed in detail during visit. Ban presented to the hospital with generalized weakness and recurrent fall at home after getting discharged just 3 days ago on 02/10/2024 after admitted for CHF exacerbation. She was discharged on Bumex 2 mg twice a day. Since going home she has been overall feeling generally weak, has been having repeated falls at home. She has been having recurrent hospitalization over last 6 months most of the time her hospitalization was for similar reason including CHF e xacerbation, generalized weakness. On admission her sodium was 132 which has been dropping to 128 this morning. Lab was notable for TRACY, creatinine was 3.3. Chest x-ray showed pulmonary vascular congestion and large right pleural effusion and small left pleural effusion. Blood pressure has been fair. Urinalysis was negative for significant proteinuria, hematuria or UTI. Prior renal imaging was otherwise unremarkable. Received 1 L of IV normal saline on admission. Bumex has been on hold since admission. Has extensive cardiovascular history and multiple chronic comorbidities. Hypertension for many years on Carvedilol 6.25 mg p.o. daily, blood pressure generally well-controlled at home SBP 130s to 140s at home, reports feeling poorly when SBP < 120. Has diabetes without retinopathy or proteinuria, well controlled. Has CHF with systolic and diastolic dysfunction, s/p AICD requiring frequent hospital admission. Last echo showed EF 20-25%, grade 2 diastolic dysfunction and elevated pulmonary artery pressure, on Entresto. She had multiple coronary stent over last 1 year. H/o s/p TVAR. She has significant atherosclerotic disease including lower extremity vascular insufficiency previously had angioplasty. Had bilateral carotid endarterectomy done. History of paroxysmal atrial fibrillation s/p to sinus rhythm in November 2021, currently sinus rhythm on low-dose BB. Permanent pacemaker placed. Never smoker. No family history of chronic kidney disease or end-stage renal disease. h/o right breast cancer s/p partial mastectomy in August 2021, on Arimidex. Overall feels generally weak, reports SOB with exertion but not at rest. Renal function relatively stable over last 2 days, off of Bumex. No LE edema. Allergies Allergy/AdvReac Type Severity Reaction Status Date / Time adhesive Allergy Intermediate REDNESS Verified 01/30/24 09:26 AND IRRITATION FROM PAIN PATCH, TAPE latex Allergy Intermediate ALLERGIC Verified 01/30/24 09:26 TO LATEX TAPE/RASH/ITCHING morphine Allergy Intermediate swelling Verified 01/30/24 09:26 nausea vomiting olmesartan Allergy Unknown UNKNOWN Verified 01/30/24 09:26 benzonatate AdvReac Intermediate confusion Verified 01/30/24 09:26 [From Tesmin Brennan] dulaglutide [From Trulicity] AdvReac Intermediate AFFECTS Verified 01/30/24 09:26 MUSCLES exenatide [From Byetta] AdvReac Intermediate Diarrhea Verified 01/30/24 09:26 ezetimibe AdvReac Intermediate MUSCLE Verified 01/30/24 09:26 ACHES glipizide AdvReac Intermediate Diarrhea Verified 01/30/24 09:26 glyburide AdvReac Intermediate Diarrhea Verified 01/30/24 09:26 lisinopril AdvReac Intermediate LIGHTHEADED Verified 01/30/24 09:26 AND DIZZY losartan AdvReac Intermediate dizziness Verified 01/30/24 09:26 metformin AdvReac Intermediate Diarrhea Verified 01/30/24 09:26 pioglitazone AdvReac Intermediate DIARRHEA Verified 01/30/24 09:26 NAUSEA sitagliptin [From ] AdvReac Intermediate Diarrhea Verified 01/30/24 09:26 Xzevkcu-[id number]-[id number] Reductase AdvReac Intermediate myalgias Verified 01/30/24 09:26 Inhibitor and [Ovcnqph-Plm-Ulu Reductase weakness Inhibitor] aspirin AdvReac Mild GI SYMPTOMS Verified 01/30/24 09:26 Home Medications Medication Instructions Recorded Confirmed Type vitamin E 268 mg (400 unit) capsule 400 unit PO QAM 03/29/20 02/13/24 History cholecalciferol (vitamin D3) 25 1,000 unit PO QAM 05/17/21 02/13/24 History mcg (1,000 unit) capsule trazodone 50 mg tablet 50 mg PO HS PRN insomnia #90 tabs 06/23/22 02/13/24 Rx insulin aspar prt-insulin aspart 15 - 30 unit (0.15 - 0.3 mL) 11/28/22 02/13/24 Rx 100 unit/mL (70-30) subcutaneous subcut AMPM #30 mL soln (Novolog Mix 70-30 U-100 Insuln) polyethylene glycol 3350 17 17 g PO TID #119 grams 12/23/22 02/13/24 Rx gram/dose oral powder (Miralax) sennosides 8.6 mg capsule (senna) 8.6 mg PO DAILY PRN constipation 12/23/22 02/13/24 Rx #10 caps flash glucose scanning reader #6 ea 07/24/23 01/31/24 Rx (FreeStyle Rossy 14 Day [place]) potassium gluconate 595 mg (99 mg) 595 mg PO DAILY PRN With Bumex 08/25/23 02/13/24 History tablet levothyroxine 75 mcg tablet 75 mcg PO QAM #90 tabs 10/27/23 02/13/24 Rx apixaban 2.5 mg tablet (Eliquis) 2.5 mg PO BID #180 tabs 10/30/23 02/13/24 Rx calcitriol 0.25 mcg capsule 0.25 mcg PO 3XWK #12 caps 10/30/23 02/13/24 Rx (Rocaltrol) ranolazine 500 mg tablet,extended 500 mg PO BID #180 tabs 11/14/23 02/13/24 Rx release,12 hr carvedilol 3.125 mg tablet 3.125 mg PO BID #180 tabs 12/28/23 02/13/24 Rx ondansetron HCl 8 mg tablet 8 mg PO Q8H PRN nausea and 01/01/24 02/13/24 Rx vomiting #30 tabs sertraline 50 mg tablet 75 mg (1.5 x 50 mg) PO DAILY #135 01/01/24 02/13/24 Rx tabs magnesium oxide 400 mg (241.3 mg 400 mg PO QPM #30 tabs 01/22/24 02/13/24 Rx magnesium) tablet insulin syringe-needle U-100 0.3 #100 ea 01/23/24 01/31/24 Rx mL 31 gauge x 5/16" ticagrelor 60 mg tablet (Brilinta) 60 mg PO BID #90 tabs 01/26/24 02/13/24 Rx bumetanide 2 mg tablet 4 mg (2 x 2 mg) PO BID #200 tabs 01/30/24 02/13/24 Rx pantoprazole 40 mg tablet,delayed 40 mg PO BID #180 tabs 01/30/24 02/13/24 Rx release (Protonix) spironolactone 50 mg tablet 50 mg PO DAILY #30 tabs 01/30/24 02/13/24 Rx gabapentin 300 mg capsule 300 mg PO TID 01/31/24 02/13/24 History flash glucose sensor (FreeStyle #1 ea 02/06/24 Rx Rossy 14 Day Sensor kit) Patient History Medical History (Updated 02/14/24 @ 13:46 by Janie Thompson MD) Hyponatremia Acute kidney injury Palliative care by specialist Advanced care planning/counseling discussion Muscular deconditioning Weakness generalized Dyspnea and respiratory abnormalities Osteoarthritis Orthostasis Hyperlipidemia Acute kidney injury superimposed on chronic kidney disease Non-ST elevation ID (NSTEMI) Depression Nausea and vomiting after administration of anesthetic agent severe PONV s/p Left carotid surgery 09/27/21 at [facility] PAF (paroxysmal atrial fibrillation) History of CVA (cerebrovascular accident) Had RUE weakness and numbness after 09/17/21 breast surgery- CT scan of head negative; unable to do MRI due to ICD Per PCP records 10/22/21= "[place] her post op RUE sx related to possible small stroke/TIA" Breast cancer, right Right breast mastectomy 09/17/21 at [facility] Subclavian artery stenosis Rheumatoid arthritis No medications Followed with rheum in the past- no recent issues Chronic kidney disease STAGE IV-F/U DR SALINAS Diabetes mellitus, type 2 Glucose fluctuates SOB (shortness of breath) on exertion DVT (deep venous thrombosis) LOWER LEG 2019 Ischemic cardiomyopathy Insomnia Biventricular ICD (implantable cardioverter-defibrillator) in place (04/30/20) Medtr[employer] implanted 04/30/2020. Capped right ventricular pacing lead Last check 09/2021 Antiplatelet or antithrombotic long-term use Secondary hyperparathyroidism of renal origin Anemia due to chronic kidney disease Chronic obstructive pulmonary disease, unspecified Breathing stable CAD (coronary artery disease) F/U DR CUEVA S/p NAYT x 1 to Cx in 2019; NATY to ostial LM 01/10/20 Aortic stenosis, severe S/p TAVR 10/2019 PAD (peripheral artery disease) S/p [employer] and stenting of right SFA, and ASSEMBL[employer] MOV[employer] of left SFA and common femoral artery Spondylosis Pulmonary hypertension RVSP 50-60mmHg on 12/2023 ECHO NSTEMI (non-ST elevated myocardial infarction) Most recent 12/2019 (mild per patient) Chronic combined systolic and diastolic CHF (congestive heart failure) EF 40% per 10/16/21 ECHO GERD (gastroesophageal reflux disease) Hypothyroidism Left bundle branch block Bilateral carotid artery stenosis H/o bilateral CEAs in 2016 Per 07/2021 vascular note- carotid ultrasound from office visit showed patent right CEA with velocities suggesting 50-59% stenosis restenosis Patent left CEA with velocities suggesting 99% restenosis - had re-do of left CEA 09/27/21 Surgical History S/P AV hiren ablation (06/30/22) H/O heart artery stent H/O colonoscopy History of left-sided carotid endarterectomy (09/27/21) redo L CEA, Dr Bateman Status post partial mastectomy of right breast (09/17/21) 09/17/21 - Done under [place] with LMA #4. Atraumatic LMA insertion. Magnet placed secondary to pacemaker. Right Breast Partial Mastectomy with [place] [employer] Localization, Right Axillary [place] Lymph Node Biopsy(Right) - Hua Acosta, DO History of cardiac cath TOTAL 6? STENTS- 2018 and 2019 S/P coronary artery stent placement (10/2018) NATY prox mid LAD S/P coronary artery stent placement (10/2017) NATY to mid LAD S/P carotid endarterectomy B/l 2016 S/P thoracentesis (03/2020) b/l d/t CHF S/P angioplasty (02/03/21) ASSEM[employer] MOV[employer] L SFA 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) History of oophorectomy History of hysterectomy History of cholecystectomy H/O: section History of cataract surgery right and left History of appendectomy Family History Daughter Coronary heart disease Cardiac stent Diabetes Mother , 83yo Diabetes Family history of hypercholesterolemia Myocardial infarction Hypertension Stroke Brother Colorectal cancer 1/2 brother Father , Accident in war Brother Diabetes 1/2 brother;Complications of DM Family/Other Myocardial infarction 1/2 sister Son Coronary heart disease Cardiac stent Hypertension Other Pacemaker Denies family history of Ovarian cancer Prostate cancer Breast cancer Social History Smoking Status: Former smoker Second Hand Exposure: No; Do You Dip or Chew Tobacco: No; Hx Alcohol Use: Yes Hx Substance Use: No Preferred Language: Cypriot Communication Ability: Effective Visual Impairment: No Limitations Hearing Ability: Hard of Hearing Sports Photographer Required: No Beliefs That Will Affect Care: None marital status: / marital status details: passed 2000 Current Living Situation: Alone current occupational status: retired 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 Physical Exam Constitutional: WD/WN, vitals as above no acute distress Eyes: + anicteric sclerae Neck: normal visual inspection Respiratory: no respiratory distress and no cough Auscultation: + diminished lung sounds Cardiovascular: RRR, no murmur, no edema Gastrointestinal (Abdomen): Inspection/Auscultation: abdomen normal to inspection Musculoskeletal: Extremities: extremities normal to inspection Skin: no rashes, warm and dry Neurologic: no focal motor deficits Psychiatric: Orientation: alert and oriented x 3 Affect: euthymic affect Results & Data Vital Signs (Past 12 Hours) Vital Signs Temp Pulse Resp BP Pulse Ox O2 Del Method 02/14/24 10:59 36.5 C 76 18 151/113 H 94 Room Air 02/14/24 07:13 36.6 C 16 94 Room Air 02/14/24 02:05 36.6 C 76 18 119/68 91 Room Air PG Care Time/CCT Total # of Minutes Spent Total Time Spent with Patient: Total time spent is greater than 50% in coordination of care (as documented) at patient's floor/unit and/or counseling patient: Coding Level of Care Code 94272 INT INP/OBS CARE 3/75MIN Diagnoses Acute kidney injury N17.9 CKD (chronic kidney disease) stage 4, GFR 15-29 ml/min N18.4 Multiple falls R29.6 Weakness generalized R53.1 Hyponatremia E87.1
--- NOTE | 2024-02-14 19:05 | Hospitalist Progress Note ---
Date of Service February 14, 2024 Assessment & Plan (1) Multiple falls: Plan: - Presents after multiple falls at home following recent hospital discharge on 02/10/2024. - CT of thoracic spine, lumbar spine, head, cervical spine as well as CXR revealed moderate bilateral pleural effusions and cardiomegaly with persistent pulmonary edema otherwise negative for acute processes. - Respiratory bio fire negative on admission. - UA negative on admission. - TSH WNL. - PT OT consults. - I suspect the patient will require rehab placement upon discharge given failure to thrive at home after recent hospitalization. (2) Heart failure with mildly reduced ejection fraction (HFmrEF): Plan: - Most recent echo 12/18/2023 revealed EF= 40-45%. - Follows with heart failure clinic. Multiple recent admissions due to heart failure exacerbations. - Troponin elevated on admission at 270. Repeat 251. Patient denies chest pain. No acute ECG changes. Most likely due to demand ischemia. - Moderate bilateral pleural effusions and persistent pulmonary edema. - Continue spironolactone, Eliquis, Ranexa, carvedilol - 1800 ml fluid restriction - Monitor daily weights - Monitor renal function and electrolytes daily (3) CKD (chronic kidney disease) stage 4, GFR 15-29 ml/min: Plan: - Suspect cardiorenal syndrome in setting of hyponatremia and acute on chronic kidney injury - Hypertonic hyponatremia - continue to fluid restrict - Continue to hold Bumex - Nephrology consulted, continue to follow their recommendations - Avoid nephrotoxic agents when possible (4) DM II (diabetes mellitus, type II), controlled: Plan: - Monitor BSG ACHS, goal is 90-140 - CF 20, CR 12 - Heart healthy/DM 2 diet - Adjust regimen as needed (5) PAF (paroxysmal atrial fibrillation): Plan: - Currently in paced rhythm - Continue Carvedilol and Eliquis Plan CODE STATUS: DNR/DNI Admission and Anticipated Discharge Date Admission Date: February 13, 2024 Subjective Patient seen and evaluated at bedside. She reports dyspnea with activity, generalized weakness, and some decreased appetite. She denies shortness of breath at rest. No other complaints at this time. Physical Exam Physical Exam: General: No acute distress, nondiaphoretic, well-developed, well-nourished. Skin: Contusions noted on midline upper back, left upper arm, scalp, left lower abdominal quadrant. Scattered bruising noted on bilateral arms and lower extremities. 1+ edema bilateral lower extremities. Cardiac: Regular rate and rhythm without murmurs gallops or rubs. Pulm: No respiratory distress. Diminished breath sounds at bases bilaterally. Breath sounds otherwise clear to auscultation. No wheezing, rales, rhonchi. Abdominal: Positive bowel sounds x 4. Soft, nontender, without masses or organomegaly. No guarding or rebound tenderness. Neuro: A&O x3. No focal neurological deficits. Results & Data Results & Data Vital Signs (Past 12 Hours) Vital Signs Temp Pulse Pulse Resp BP Pulse Ox O2 Del Method 02/14/24 18:15 71 02/14/24 15:22 36.7 C 73 17 148/79 H 94 Room Air 02/14/24 10:59 36.5 C 76 18 151/113 H 94 Room Air 02/14/24 08:10 70 02/14/24 07:13 36.6 C 16 94 Room Air Laboratory Results Reviewed CBC Reviewed chemistries PG Care Time/CCT Total # of Minutes Spent Total Time Spent with Patient: Total time spent is greater than 50% in coordination of care (as documented) at patient's floor/unit and/or counseling patient: Coding Level of Care Code 00056 SUB INP/OBS CARE 2/35MIN Diagnoses Multiple falls R29.6 Heart failure with mildly reduced ejection fraction (HFmrEF) I50.22 CKD (chronic kidney disease) stage 4, GFR 15-29 ml/min N18.4 Controlled type 2 diabetes mellitus with diabetic nephropathy, with long-term current use of insulin E11.21; Z79.4 Diabetes mellitus prison insulin use: with prison use Diabetes mellitus complication status: with kidney complications Diabetes mellitus complication detail: with nephropathy PAF (paroxysmal atrial fibrillation) I48.0 (4) DM II (diabetes mellitus, type II), controlled Diabetes mellitus prison insulin use: with prison use Diabetes mellitus complication status: with kidney complications Diabetes mellitus complication detail: with nephropathy Qualified Code(s): E11.21 - Type 2 diabetes mellitus with diabetic nephropathy; Z79.4 - residential (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
[2024-02-15 06:51] LABS: Hematocrit (blood only) 32.2 % (37.0-47.0); Hemoglobin 9.7 g/dl (12.0-16.0); Mean Corpuscular Hemoglobin 25.3 pg (25.0-34.0); Mean Corpuscular Hgb Conc 30.1 g/dL (32.0-36.0); Mean Corpuscular Volume 83.9 fL (80.0-100.0); Mean Platelet Volume 10.8 fL (9.4-12.4); Platelet Count 289 K/uL (130-400); RDW Coefficient of Variation 16.8 % (11.5-14.5); RDW Standard Deviation 51.1 fL (36.4-46.3); Red Blood Count 3.84 M/uL (4.20-5.40); White Blood Count 8.76 K/ul (4.8-10.8)
[2024-02-15 07:09] LABS: Albumin Globulin Ratio 1.3 (0.9-2); Albumin Level 3.5 gm/dl (3.4-5.0); BUN Creatinine Ratio 23.8 (10-20); Bilirubin,Total 0.8 mg/dl (0.2-1.0); Calcium 8.6 mg/dl (8.6-10.3); Est GFR (African American) 15.7 ml/min; Est GFR (Non-African American) 13.6 ml/min; Globulin 2.8 gm/dl (2.5-4.0); Potassium 4.8 mmol/L (3.5-5.1); Total Protein 6.3 gm/dl (6.0-8.3)
[2024-02-15] MEDS: CALCITRIOL 0.25 MCG CAPSULE PO SCH (08:04)
--- NOTE | 2024-02-15 14:39 | Nephrology Progress Note ---
Date of Service February 15, 2024 Assessment & Plan (1) Acute kidney injury: (2) CKD (chronic kidney disease) stage 4, GFR 15-29 ml/min: (3) Multiple falls: (4) Weakness generalized: (5) Hyponatremia: Plan 83-year-old female with stage IV CKD, baseline creatinine around 2-2.5 mg/dl secondary to cardiorenal syndrome, chronic hyponatremia, CHF with combined systolic and diastolic dysfunction, repeated hospitalization with CHF exacerbation and pleural effusion admitted with generalized weakness, repeated falls and noted to have TRACY and hyponatremia. Creatinine was 3.3, serum sodium was 132 dropped slightly to 128 this morning. Volume status seems acceptable, off of Bumex since admission. Creatinine staying stable over the last 2 days, sodium improved.. -- Overall she has been feeling poorly with shortness of breath and frustrated with repeated hospitalization over last 1 year and leaning toward considering going home with hospice care. Palliative care will be consulted. Possible family meeting tomorrow morning with palliative care and her daughter to finalize the decision and make that arrangements. Considering her severe cardiomyopathy, other multiple comorbidities and repeated hospitalization, her decision seems to be quite reasonable. --With repeated pleural effusion, pleural tap or Pleurx catheter can be considered however she is leaning toward not considering that. -- Monitor intake and output, aim to keep even. -- Renal function and electrolyte check in the morning. -- start on Venofer. Admission and Anticipated Discharge Date Admission Date: February 13, 2024 Subjective Ban was seen and evaluated this morning. She reports having a rough night, mainly because of shortness of breath. She was feeling slightly better this morning while sitting up. Kidney function stays stable, in fact creatinine slightly improved, sodium better. Has been having decent urine output, no lower extremity edema. Review of Systems Review of Systems: Detailed review of system was done and pertinent positives and negatives are mentioned above. Physical Exam Constitutional: WD/WN, vitals as above no acute distress Eyes: + anicteric sclerae Respiratory: no respiratory distress and no cough Auscultation: + diminished lung sounds Cardiovascular: RRR, no murmur, no edema Musculoskeletal: Extremities: extremities normal to inspection Skin: no rashes, warm and dry Neurologic: no focal motor deficits Psychiatric: Orientation: alert and oriented x 3 Affect: euthymic affect Results & Data Vital Signs (Past 12 Hours) Vital Signs Temp Pulse Resp BP Pulse Ox O2 Del Method 02/15/24 10:47 36.6 C 65 18 133/81 93 Room Air 02/15/24 07:21 36.8 C 81 18 127/67 91 Room Air 02/15/24 02:40 36.5 C 76 16 114/71 93 Room Air PG Care Time/CCT Total # of Minutes Spent Total Time Spent with Patient: Total time spent is greater than 50% in coordination of care (as documented) at patient's floor/unit and/or counseling patient: Coding Level of Care Code 65774 SUB INP/OBS CARE 2/35MIN Diagnoses Acute kidney injury N17.9 CKD (chronic kidney disease) stage 4, GFR 15-29 ml/min N18.4 Multiple falls R29.6 Weakness generalized R53.1 Hyponatremia E87.1
[2024-02-15] MEDS: IRON SUCROSE 200 MG in 0.9 % SODIUM CHLORIDE 100 ML IV SCH (15:29)
--- NOTE | 2024-02-15 22:36 | Hospitalist Progress Note ---
Date of Service February 15, 2024 Assessment & Plan (1) Multiple falls: Plan: - Presents after multiple falls at home following recent hospital discharge on 02/10/2024. - CT of thoracic spine, lumbar spine, head, cervical spine as well as CXR revealed moderate bilateral pleural effusions and cardiomegaly with persistent pulmonary edema otherwise negative for acute processes. - Respiratory bio fire negative on admission. - UA negative on admission. - TSH WNL. - PT OT consults. - I suspect the patient will require rehab placement upon discharge given failure to thrive at home after recent hospitalization. Awaiting placement. (2) Heart failure with mildly reduced ejection fraction (HFmrEF): Plan: - Most recent echo 12/18/2023 revealed EF= 40-45%. - Follows with heart failure clinic. Multiple recent admissions due to heart failure exacerbations. - Troponin elevated on admission at 270. Repeat 251. Patient denies chest pain. No acute ECG changes. Most likely due to demand ischemia. - Moderate bilateral pleural effusions and persistent pulmonary edema. - Continue spironolactone, Eliquis, Ranexa, carvedilol - 1800 ml fluid restriction - Monitor daily weights - Monitor renal function and electrolytes daily (3) CKD (chronic kidney disease) stage 4, GFR 15-29 ml/min: Plan: - Suspect cardiorenal syndrome in setting of hyponatremia and acute on chronic kidney injury - Hypertonic hyponatremia - continue to fluid restrict - Continue to hold Bumex - Nephrology consulted, continue to follow their recommendations - Avoid nephrotoxic agents when possible (4) DM II (diabetes mellitus, type II), controlled: Plan: - Monitor BSG ACHS, goal is 90-140 - CF 20, CR 12 - Heart healthy/DM 2 diet - Adjust regimen as needed (5) PAF (paroxysmal atrial fibrillation): Plan: - Currently in paced rhythm - Continue Carvedilol and Eliquis Plan CODE STATUS: DNR/DNI Admission and Anticipated Discharge Date Admission Date: February 13, 2024 Subjective Patient reports no new symptoms. Review of Systems Review of Systems: All systems reviewed & are unremarkable except as noted in HPI & below Physical Exam Physical Exam: General: No acute distress, nondiaphoretic, well-developed, well-nourished. Skin: Contusions noted on midline upper back, left upper arm, scalp, left lower abdominal quadrant. Scattered bruising noted on bilateral arms and lower extremities. 1+ edema bilateral lower extremities. Cardiac: Regular rate and rhythm without murmurs gallops or rubs. Pulm: No respiratory distress. Diminished breath sounds at bases bilaterally. Breath sounds otherwise clear to auscultation. No wheezing, rales, rhonchi. Abdominal: Positive bowel sounds x 4. Soft, nontender, without masses or organomegaly. No guarding or rebound tenderness. Neuro: A&O x3. No focal neurological deficits. Results & Data Results & Data Vital Signs (Past 12 Hours) Vital Signs Temp Pulse Pulse Resp BP Pulse Ox O2 Del Method 02/15/24 19:00 36.6 C 74 18 136/82 94 Room Air 02/15/24 18:29 70 02/15/24 15:59 36.7 C 70 18 137/83 95 Room Air 02/15/24 10:47 36.6 C 65 18 133/81 93 Room Air PG Care Time/CCT Total # of Minutes Spent Total Time Spent with Patient: Total time spent is greater than 50% in coordination of care (as documented) at patient's floor/unit and/or counseling patient: Coding Level of Care Code 17161 SUB INP/OBS CARE 2/35MIN Diagnoses Multiple falls R29.6 Heart failure with mildly reduced ejection fraction (HFmrEF) I50.22 CKD (chronic kidney disease) stage 4, GFR 15-29 ml/min N18.4 Controlled type 2 diabetes mellitus with diabetic nephropathy, with long-term current use of insulin E11.21; Z79.4 Diabetes mellitus complication detail: with nephropathy Diabetes mellitus complication status: with kidney complications Diabetes mellitus [facility] insulin use: with [facility] use PAF (paroxysmal atrial fibrillation) I48.0 (4) DM II (diabetes mellitus, type II), controlled Diabetes mellitus complication detail: with nephropathy Diabetes mellitus complication status: with kidney complications Diabetes mellitus intermediate frame tender insulin use: with intermediate frame tender use Qualified Code(s): E11.21 - Type 2 diabetes mellitus with diabetic nephropathy; Z79.4 - assistant terminal manager (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
[2024-02-16 07:48] LABS: Hematocrit (blood only) 34.4 % (37.0-47.0); Hemoglobin 10.2 g/dl (12.0-16.0); Mean Corpuscular Hemoglobin 25.4 pg (25.0-34.0); Mean Corpuscular Hgb Conc 29.7 g/dL (32.0-36.0); Mean Corpuscular Volume 85.8 fL (80.0-100.0); Mean Platelet Volume 10.7 fL (9.4-12.4); Platelet Count 287 K/uL (130-400); RDW Standard Deviation 52.3 fL (36.4-46.3); Red Blood Count 4.01 M/uL (4.20-5.40); White Blood Count 9.84 K/ul (4.8-10.8)
[2024-02-16 08:07] LABS: Albumin Level 3.6 gm/dl (3.4-5.0); BUN Creatinine Ratio 24.3 (10-20); Calcium 8.8 mg/dl (8.6-10.3); Creatinine Clr Calc Pharmacy 17.4 ml/min; Est GFR (Non-African American) 16.4 ml/min; Phosphorus 3.7 mg/dl (2.5-4.9); Potassium 5.2 mmol/L (3.5-5.1)
--- NOTE | 2024-02-16 10:01 | Nephrology Progress Note ---
Date of Service February 16, 2024 Assessment & Plan (1) Acute kidney injury: (2) CKD (chronic kidney disease) stage 4, GFR 15-29 ml/min: (3) Multiple falls: (4) Weakness generalized: (5) Hyponatremia: Plan 83-year-old female with stage IV CKD, baseline creatinine around 2-2.5 mg/dl secondary to cardiorenal syndrome, chronic hyponatremia, CHF with combined systolic and diastolic dysfunction, repeated hospitalization with CHF exacerbation and pleural effusion admitted with generalized weakness, repeated falls and noted to have TRACY and hyponatremia. Creatinine was 3.3, serum sodium was 132 on admission. Volume status seems acceptable, off of Bumex since admission. Creatinine slightly improved, close to baseline. Decent urine output. -- Continue to keep off of Bumex, urine output and volume status seems reasonable. -- Overall she has been feeling poorly with shortness of breath and frustrated with repeated hospitalization over last 1 year and leaning toward considering going home with hospice care. Waiting for palliative care evaluation. Considering her severe cardiomyopathy, other multiple comorbidities and repeated hospitalization, her decision seems to be quite reasonable. -- Monitor intake and output, aim to keep even, Renal function and electrolyte check in the morning. -- started on Venofer on 02/15/24 --change to low potassium diet. Admission and Anticipated Discharge Date Admission Date: February 13, 2024 Subjective Ban was seen and evaluated this morning. Reports overall feeling poorly with some nausea and GI upset this morning. Denies significant shortness of breath. Kidney function slightly improved, creatinine down to 2.6, mild hyperkalemia noted. Decent urine output. Volume status acceptable. Blood pressure fair. Review of Systems Review of Systems: Detailed review of system was done and pertinent positives and negatives are mentioned above. Physical Exam Constitutional: WD/WN, vitals as above no acute distress Eyes: + anicteric sclerae Respiratory: no respiratory distress and no cough Auscultation: + diminished lung sounds Cardiovascular: RRR, no murmur, no edema Musculoskeletal: Extremities: extremities normal to inspection Skin: no rashes, warm and dry Neurologic: no focal motor deficits Psychiatric: Orientation: alert and oriented x 3 Affect: euthymic affect Results & Data Vital Signs (Past 12 Hours) Vital Signs Temp Pulse Pulse Resp BP Pulse Ox O2 Del Method 02/16/24 07:15 36.4 C L 82 19 135/74 93 Room Air 02/16/24 03:17 36.8 C 70 18 151/78 H 92 Room Air 02/15/24 23:10 36.5 C 71 16 123/69 94 Room Air 02/15/24 23:00 71 PG Care Time/CCT Total # of Minutes Spent Total Time Spent with Patient: Total time spent is greater than 50% in coordination of care (as documented) at patient's floor/unit and/or counseling patient: Coding Level of Care Code 78031 SUB INP/OBS CARE 2/35MIN Diagnoses Acute kidney injury N17.9 CKD (chronic kidney disease) stage 4, GFR 15-29 ml/min N18.4 Multiple falls R29.6 Weakness generalized R53.1 Hyponatremia E87.1
--- NOTE | 2024-02-16 14:10 | Palliative Care Consultation ---
Date of Consultation February 16, 2024 Assessment & Plan (1) Dyspnea and respiratory abnormalities: (2) Weakness generalized: (3) Muscular deconditioning: (4) Advanced care planning/counseling discussion: Face to face with Ban and dtr at bedside for focused ACP and hospice discussion x 45min They would like [facility] with hospice, or at least [facility] with comfort care. Dtr would like to discuss hospice agency options and one that is more permissive than restrictive, as Mrs. Barry for now wants to be able to stop in and see her heart team. questions about hospice answered re symptom mgt (5) Palliative care by specialist: Plan ACP discussion for hospice and Goals as noted above. Pt would like [facility] for hospice and EOL care but wants to still be able to check in with her cardiology team genet Urmila Mcmanus. I will sign off but will happily re engage if needed, please page me. Thank you for allowing us to participate in the ongoing care of this patient. Please don't hesitate to call or page with any additional concerns. Dr. Casandra Smart DNP Director, Palliative Care History of Present Illness Reason for Consultation: ACP family meeting and hospice Attending Physician: Bhanu Rueda History of Present Illness Ban is an 83-year-old female admitted 01/31/2024 with exacerbation of her chronic combined systolic and diastolic heart failure. Chest x-ray revealed a large right pleural effusion. She was profoundly dyspneic. At the time of my visit, she had recently returned from a thoracentesis and she reports a dramatic improvement in her symptoms. She is able to speak in complete sentences. She is able to take a deep breath. She does not have any more tightness across her chest. She has CKD stage IV as a sequela of her longtime heart failure and diuretic therapy. She is seen today with her daughter at the bedside. Ban has longstanding valvular heart failure. She has ischemic cardiomyopathy, paroxysmal A-fib, status post AV ablation, hypertension, severe aortic stenosis, mitral regurgitation, and also has a biventricular ICD. She is status post transcatheter aortic valve replacement (TAVR), has CAD, pulmonary hypertension, and her heart failure is with a reduced ejection fraction. Her last ejection fraction was 40%. Ban confirms that she has a completed living will and her daughter at bedside reaffirms that the family is aware of her wishes. Ban reaffirms her no code selection of DNR/DNI. Her children are her surrogate decision makers. Her overall goals are to be able to remain in her home and tolerate some activities of daily living. Allergies Allergy/AdvReac Type Severity Reaction Status Date / Time adhesive Allergy Intermediate REDNESS Verified 01/30/24 09:26 AND IRRITATION FROM PAIN PATCH, TAPE latex Allergy Intermediate ALLERGIC Verified 01/30/24 09:26 TO LATEX TAPE/RASH/ITCHING morphine Allergy Intermediate swelling Verified 01/30/24 09:26 nausea vomiting olmesartan Allergy Unknown UNKNOWN Verified 01/30/24 09:26 benzonatate AdvReac Intermediate confusion Verified 01/30/24 09:26 [From Tessalon Perles] dulaglutide [From Trulicity] AdvReac Intermediate AFFECTS Verified 01/30/24 09:26 MUSCLES exenatide [From Byetta] AdvReac Intermediate Diarrhea Verified 01/30/24 09:26 ezetimibe AdvReac Intermediate MUSCLE Verified 01/30/24 09:26 ACHES glipizide AdvReac Intermediate Diarrhea Verified 01/30/24 09:26 glyburide AdvReac Intermediate Diarrhea Verified 01/30/24 09:26 lisinopril AdvReac Intermediate LIGHTHEADED Verified 01/30/24 09:26 AND DIZZY losartan AdvReac Intermediate dizziness Verified 01/30/24 09:26 metformin AdvReac Intermediate Diarrhea Verified 01/30/24 09:26 pioglitazone AdvReac Intermediate DIARRHEA Verified 01/30/24 09:26 NAUSEA sitagliptin [From Januvia] AdvReac Intermediate Diarrhea Verified 01/30/24 09:26 Wwqxkua-UFM-FfC Reductase AdvReac Intermediate myalgias Verified 01/30/24 09:26 Inhibitor and [Ikdwqbe-Hyo-Bmj Reductase weakness Inhibitor] aspirin AdvReac Mild GI SYMPTOMS Verified 01/30/24 09:26 Home Medications Medication Instructions Recorded Confirmed Type vitamin E 268 mg (400 unit) capsule 400 unit PO QAM 03/29/20 02/13/24 History cholecalciferol (vitamin D3) 25 1,000 unit PO QAM 05/17/21 02/13/24 History mcg (1,000 unit) capsule trazodone 50 mg tablet 50 mg PO HS PRN insomnia #90 tabs 06/23/22 02/13/24 Rx insulin aspar prt-insulin aspart 15 - 30 unit (0.15 - 0.3 mL) 11/28/22 02/13/24 Rx 100 unit/mL (70-30) subcutaneous subcut AMPM #30 mL soln (Novolog Mix 70-30 U-100 Insuln) polyethylene glycol 3350 17 17 g PO TID #119 grams 12/23/22 02/13/24 Rx gram/dose oral powder (Miralax) sennosides 8.6 mg capsule (senna) 8.6 mg PO DAILY PRN constipation 12/23/22 02/13/24 Rx #10 caps flash glucose scanning reader #6 ea 07/24/23 01/31/24 Rx (FreeStyle Rossy 14 Day [place]) potassium gluconate 595 mg (99 mg) 595 mg PO DAILY PRN With Bumex 08/25/23 02/13/24 History tablet levothyroxine 75 mcg tablet 75 mcg PO QAM #90 tabs 10/27/23 02/13/24 Rx apixaban 2.5 mg tablet (Eliquis) 2.5 mg PO BID #180 tabs 10/30/23 02/13/24 Rx calcitriol 0.25 mcg capsule 0.25 mcg PO 3XWK #12 caps 10/30/23 02/13/24 Rx (Rocaltrol) ranolazine 500 mg tablet,extended 500 mg PO BID #180 tabs 11/14/23 02/13/24 Rx release,12 hr carvedilol 3.125 mg tablet 3.125 mg PO BID #180 tabs 12/28/23 02/13/24 Rx ondansetron HCl 8 mg tablet 8 mg PO Q8H PRN nausea and 01/01/24 02/13/24 Rx vomiting #30 tabs sertraline 50 mg tablet 75 mg (1.5 x 50 mg) PO DAILY #135 01/01/24 02/13/24 Rx tabs magnesium oxide 400 mg (241.3 mg 400 mg PO QPM #30 tabs 01/22/24 02/13/24 Rx magnesium) tablet insulin syringe-needle U-100 0.3 #100 ea 01/23/24 01/31/24 Rx mL 31 gauge x 5/16" ticagrelor 60 mg tablet (Brilinta) 60 mg PO BID #90 tabs 01/26/24 02/13/24 Rx bumetanide 2 mg tablet 4 mg (2 x 2 mg) PO BID #200 tabs 01/30/24 02/13/24 Rx pantoprazole 40 mg tablet,delayed 40 mg PO BID #180 tabs 01/30/24 02/13/24 Rx release (Protonix) spironolactone 50 mg tablet 50 mg PO DAILY #30 tabs 01/30/24 02/13/24 Rx gabapentin 300 mg capsule 300 mg PO TID 01/31/24 02/13/24 History flash glucose sensor (FreeStyle #1 ea 02/06/24 Rx Rossy 14 Day Sensor kit) Patient History Medical History (Updated 02/16/24 @ 00:09 by Omar Hadley) Hyponatremia Acute kidney injury Palliative care by specialist Advanced care planning/counseling discussion Muscular deconditioning Weakness generalized Dyspnea and respiratory abnormalities Osteoarthritis Orthostasis Hyperlipidemia Acute kidney injury superimposed on chronic kidney disease Non-ST elevation PR (NSTEMI) Depression Nausea and vomiting after administration of anesthetic agent severe PONV s/p Left carotid surgery 09/27/21 at [facility] PAF (paroxysmal atrial fibrillation) History of CVA (cerebrovascular accident) Had RUE weakness and numbness after 09/17/21 breast surgery- CT scan of head negative; unable to do MRI due to ICD Per PCP records 10/22/21= "[place] her post op RUE sx related to possible small stroke/TIA" Breast cancer, right Right breast mastectomy 09/17/21 at [facility] Subclavian artery stenosis Rheumatoid arthritis No medications Followed with rheum in the past- no recent issues Chronic kidney disease STAGE IV-F/U DR SALINAS Diabetes mellitus, type 2 Glucose fluctuates SOB (shortness of breath) on exertion DVT (deep venous thrombosis) LOWER LEG 2019 Ischemic cardiomyopathy Insomnia Biventricular ICD (implantable cardioverter-defibrillator) in place (04/30/20) Med[employer] implanted 04/30/2020. Capped right ventricular pacing lead Last check 09/2021 Antiplatelet or antithrombotic long-term use Secondary hyperparathyroidism of renal origin Anemia due to chronic kidney disease Chronic obstructive pulmonary disease, unspecified Breathing stable CAD (coronary artery disease) F/U DR CUEVA S/p NATY x 1 to Cx in 2019; NATY to ostial LM 01/10/20 Aortic stenosis, severe S/p TAVR 10/2019 PAD (peripheral artery disease) S/p SOFTWARE LEAD and stenting of right SFA, and SOFTWARE LEAD of left SFA and common femoral artery Spondylosis Pulmonary hypertension RVSP 50-60mmHg on 12/2023 ECHO NSTEMI (non-ST elevated myocardial infarction) Most recent 12/2019 (mild per patient) Chronic combined systolic and diastolic CHF (congestive heart failure) EF 40% per 10/16/21 ECHO GERD (gastroesophageal reflux disease) Hypothyroidism Left bundle branch block Bilateral carotid artery stenosis H/o bilateral CEAs in 2016 Per 07/2021 vascular note- carotid ultrasound from office visit showed patent right CEA with velocities suggesting 50-59% stenosis restenosis Patent left CEA with velocities suggesting 99% restenosis - had re-do of left CEA 09/27/21 Surgical History (Updated 02/16/24 @ 00:09 by Omar Hadley) S/P AV hiren ablation (06/30/22) H/O heart artery stent H/O colonoscopy History of left-sided carotid endarterectomy (09/27/21) redo L CEA, Dr Bateman Status post partial mastectomy of right breast (09/17/21) 09/17/21 - Done under [facility] with LMA #4. Atraumatic LMA insertion. Magnet placed secondary to pacemaker. Right Breast Partial Mastectomy with [place] [employer] Machine Operator Localization, Right Axillary [place] Lymph Node Biopsy(Right) - Hua Acosta, DO History of cardiac cath TOTAL 6? STENTS- 2018 and 2019 S/P coronary artery stent placement (10/2018) NATY prox mid LAD S/P coronary artery stent placement (10/2017) NATY to mid LAD S/P carotid endarterectomy B/l 2016 S/P thoracentesis (03/2020) b/l d/t CHF S/P angioplasty (02/03/21) SOFTWARE LEAD L SFA 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) History of oophorectomy History of hysterectomy History of cholecystectomy H/O: section History of cataract surgery right and left History of appendectomy Family History Daughter Coronary heart disease Cardiac stent Diabetes Mother , 83yo Diabetes Family history of hypercholesterolemia Myocardial infarction Hypertension Stroke Brother Colorectal cancer 1/2 brother Father , Accident in war Brother Diabetes 1/2 brother;Complications of DM Family/Other Myocardial infarction 1/2 sister Son Coronary heart disease Cardiac stent Hypertension Other Pacemaker Denies family history of Ovarian cancer Prostate cancer Breast cancer Social History Smoking Status: Former smoker Second Hand Exposure: No; Do You Dip or Chew Tobacco: No; Hx Alcohol Use: Yes Hx Substance Use: No Preferred Language: Yoruba Communication Ability: Effective Visual Impairment: No Limitations Hearing Ability: Hard of Hearing Board Certified Family Physician Required: No Beliefs That Will Affect Care: None marital status: / marital status details: passed 2000 Current Living Situation: Alone current occupational status: retired 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 No acute respiratory distress is noted. There is mild bitemporal wasting. She is awake alert and oriented x 3. Neck is supple without any overt stridor. Her pupils are equal round and reactive to light. Extraocular movements are intact. Respiratory effort is comfortable at rest but there is some mild conversational dyspnea noted. Heart tones are S1-S2, there is a grade 3 out of 6 to 4 out of 6 systolic murmur noted. Abdomen is soft, bowel sounds present throughout, nontender to palpation. There is +1 edema to the lower extremities. Her skin is pale and warm to touch. Nailbeds are slightly dusky. Strength is equal bilaterally. Her pressroom supervisor is intact. Results & Data Vital Signs (Past 12 Hours) Vital Signs Temp Pulse Resp BP Pulse Ox O2 Del Method 02/16/24 11:10 Room Air 02/16/24 11:03 36.6 C 70 19 131/68 94 Room Air 02/16/24 07:15 36.4 C L 82 19 135/74 93 Room Air 02/16/24 03:17 36.8 C 70 18 151/78 H 92 Room Air Laboratory Results data reviewed Diagnostic Findings data reviewed PG Care Time/CCT Total # of Minutes Spent Total Time Spent with Patient: Total time spent is greater than 50% in coordination of care (as documented) at patient's floor/unit and/or counseling patient: I spent 75 minutes overall addressing this case: 5 min in medical data review/discussion with referring provider(s) and/or preparation for the visit 15 min in direct interaction with the patient/exam 45 min in Advance Care Planning/Goals of Care discussions as detailed above in note (must be >16min) 5 min in subsequent review and synthesis of assessment and plan 5 min communicating with other providers regarding the patient's case: Advanced Care Planning 16343 Advanced Care Planning 30 [place] [address] IN/OBS CONSULT LVL 4,60M (25 - SIGNIFICANT, SEPARATELY IDENTIFIABLE ) Patient Type New Medical Decision Making High Complexity Diagnoses Dyspnea and respiratory abnormalities R06.00; R06.89 Weakness generalized R53.1 Muscular deconditioning R29.898 Advanced care planning/counseling discussion Z71.89 Palliative care by specialist Z51.5 Additional Codes Advanced Care Planning - 31261 Advanced Care Planning 30 Min: 37610 Advanced Care Planning 30 Min ([id number])
[2024-02-16] MEDS: Nursing to Pharmacy Communication SCH (19:57)
[2024-02-16] MEDS: GABAPENTIN 300 MG CAP PO SCH (20:38)
--- NOTE | 2024-02-16 22:02 | Hospitalist Progress Note ---
Date of Service February 16, 2024 Assessment & Plan (1) Multiple falls: Plan: - Presents after multiple falls at home following recent hospital discharge on 02/10/2024. - CT of thoracic spine, lumbar spine, head, cervical spine as well as CXR revealed moderate bilateral pleural effusions and cardiomegaly with persistent pulmonary edema otherwise negative for acute processes. - Respiratory bio fire negative on admission. - UA negative on admission. - TSH WNL. - PT OT consults. - I suspect the patient will require rehab placement upon discharge given failure to thrive at home after recent hospitalization. Awaiting placement. Plan for hospice at [facility] (2) Heart failure with mildly reduced ejection fraction (HFmrEF): Plan: - Most recent echo 12/18/2023 revealed EF= 40-45%. - Follows with heart failure clinic. Multiple recent admissions due to heart failure exacerbations. - Troponin elevated on admission at 270. Repeat 251. Patient denies chest pain. No acute ECG changes. Most likely due to demand ischemia. - Moderate bilateral pleural effusions and persistent pulmonary edema. - Continue spironolactone, Eliquis, Ranexa, carvedilol - 1800 ml fluid restriction - Monitor daily weights - Monitor renal function and electrolytes daily (3) CKD (chronic kidney disease) stage 4, GFR 15-29 ml/min: Plan: - Suspect cardiorenal syndrome in setting of hyponatremia and acute on chronic kidney injury - Hypertonic hyponatremia - continue to fluid restrict - Continue to hold Bumex - Nephrology consulted, continue to follow their recommendations - Avoid nephrotoxic agents when possible (4) DM II (diabetes mellitus, type II), controlled: Plan: - Monitor BSG ACHS, goal is 90-140 - CF 20, CR 12 - Heart healthy/DM 2 diet - Adjust regimen as needed (5) PAF (paroxysmal atrial fibrillation): Plan: - Currently in paced rhythm - Continue Carvedilol and Eliquis Plan CODE STATUS: DNR/DNI Admission and Anticipated Discharge Date Admission Date: February 13, 2024 Subjective Patient reports no new symptoms. Review of Systems Review of Systems: All systems reviewed & are unremarkable except as noted in HPI & below Physical Exam Physical Exam: General: No acute distress, nondiaphoretic, well-developed, well-nourished. Skin: Contusions noted on midline upper back, left upper arm, scalp, left lower abdominal quadrant. Scattered bruising noted on bilateral arms and lower extremities. 1+ edema bilateral lower extremities. Cardiac: Regular rate and rhythm without murmurs gallops or rubs. Pulm: No respiratory distress. Diminished breath sounds at bases bilaterally. Breath sounds otherwise clear to auscultation. No wheezing, rales, rhonchi. Abdominal: Positive bowel sounds x 4. Soft, nontender, without masses or organomegaly. No guarding or rebound tenderness. Neuro: A&O x3. No focal neurological deficits. Results & Data Results & Data Vital Signs (Past 12 Hours) Vital Signs Temp Pulse Pulse Resp BP Pulse Ox O2 Del Method 02/16/24 19:30 36.8 C 70 20 129/74 92 Room Air 02/16/24 15:48 73 02/16/24 15:21 36.5 C 71 19 133/82 95 Room Air 02/16/24 15:00 02/16/24 11:10 Room Air 02/16/24 11:03 36.6 C 70 19 131/68 94 Room Air O2 Del Method 02/16/24 19:30 02/16/24 15:48 02/16/24 15:21 02/16/24 15:00 Room Air 02/16/24 11:10 02/16/24 11:03 PG Care Time/CCT Total # of Minutes Spent Total Time Spent with Patient: Total time spent is greater than 50% in coordination of care (as documented) at patient's floor/unit and/or counseling patient: Coding Level of Care Code 70412 SUB INP/OBS CARE 2/35MIN Diagnoses Multiple falls R29.6 Heart failure with mildly reduced ejection fraction (HFmrEF) I50.22 CKD (chronic kidney disease) stage 4, GFR 15-29 ml/min N18.4 Controlled type 2 diabetes mellitus with diabetic nephropathy, with long-term current use of insulin E11.21; Z79.4 Diabetes mellitus complication detail: with nephropathy Diabetes mellitus complication status: with kidney complications Diabetes mellitus assisted insulin use: with assisted use PAF (paroxysmal atrial fibrillation) I48.0 (4) DM II (diabetes mellitus, type II), controlled Diabetes mellitus complication detail: with nephropathy Diabetes mellitus complication status: with kidney complications Diabetes mellitus milieu coordinator insulin use: with assisted use Qualified Code(s): E11.21 - Type 2 diabetes mellitus with diabetic nephropathy; 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
[2024-02-17] MEDS: ONDANSETRON INJ 2 MG/ML 2 ML VIAL IV PRN (05:49)
[2024-02-17 07:33] LABS: Albumin Level 3.4 gm/dl (3.4-5.0); Calcium 8.8 mg/dl (8.6-10.3); Creatinine Clr Calc Pharmacy 19.2 ml/min; Est GFR (African American) 21.2 ml/min; Est GFR (Non-African American) 18.3 ml/min; Phosphorus 3.5 mg/dl (2.5-4.9)
--- NOTE | 2024-02-17 11:26 | Nephrology Progress Note ---
Date of Service February 17, 2024 Assessment & Plan (1) Acute kidney injury: Plan: Non-oliguric. Attributed to decreased EAV associated with diuretics and CRS. Creatinine improving. Electrolytes acceptable. Medications are appropriate for kidney function. Remains on spironolactone. Low potassium diet encouraged. K 5.0 mmol/L. Consider holding MRA. Diuretics held but may be restarted as needed to maintain euvolemia. (2) CKD (chronic kidney disease) stage 4, GFR 15-29 ml/min: Plan: CKD IV. Baseline creatinine ~2-2.5 mg/dL. CKD attributed to CRS. Ban has established that dialysis will not be included part of the care plan. Thankfully, there is no emergent need for NURSE PRACTITIONER PER DIEM. I discussed the plan of care with dr. Rueda this morning. Possible discharge to [facility] with hospice/comfort measures. (3) Weakness generalized: Plan: Venofer 200 mg IV daily x 3rd dose today for iron deficiency anemia. Diuretics PRN to maintain appropriate volume status. Admission and Anticipated Discharge Date Admission Date: February 13, 2024 Subjective No acute events overnight. Ban was resting comfortably in bed this morning. She did not sleep well last night and is feeling very tired today. She denies significant fluid retention or edema. UOP not completely documented. Non- oliguric. Breathing comfortably. Plan for possible discharge to [facility] with hospice/comfort measures. Review of Systems Review of Systems: All systems reviewed & are unremarkable except as noted in HPI & below Physical Exam Constitutional: + thin and + frail appearing; no acute d istress Eyes: + anicteric sclerae; no corneal abnormal ity ENMT: Mouth: + dry oral mucous membranes Neck: normal visual inspection and trachea midline Respiratory: + tachypneic; no respiratory distress an d no labored breathing Auscultation: lungs clear to auscultation bilaterally and + diminished lung sounds Cardiovascular: Rate/Rhythm: regular rate Heart Sounds: normal S1, normal S2 and + murmur Extremities: no edema Musculoskeletal: Extremities: no cyanosis and no clubbing Skin: + turgor decreased; no jaundice Neurologic: Motor/Sensory: no tremor and no asterixis Psychiatric: Orientation: alert and oriented x 3 Results & Data Vital Signs (Past 12 Hours) Vital Signs Temp Pulse Resp BP Pulse Ox O2 Del Method 02/17/24 11:06 36.5 C 68 19 122/74 92 Room Air 02/17/24 07:14 36.6 C 70 18 134/71 91 Room Air 02/17/24 02:37 36.8 C 70 16 115/63 89 L Room Air Laboratory Results Laboratory Results - last 24 hr 02/16/24 02/16/24 02/17/24 16:02 20:18 06:04 Sodium 131 L Potassium 5.0 Chloride 95 L Carbon Dioxide 27 Anion Gap 9 BUN 59 H Creatinine 2.36 H Est Cr Clr Drug Dosing 19.2 Est GFR ( Amer) 21.2 Est GFR (Non-Af Amer) 18.3 BUN/Creatinine Ratio 25.0 H Glucose 246 H POC Glucose 193 H 113 H Calcium 8.8 Phosphorus 3.5 C-Reactive Protein 3.00 H Albumin 3.4 02/17/24 02/17/24 07:13 11:06 Sodium Potassium Chloride Carbon Dioxide Anion Gap BUN Creatinine Est Cr Clr Drug Dosing Est GFR ( Amer) Est GFR (Non-Af Amer) BUN/Creatinine Ratio Glucose POC Glucose 216 H 182 H Calcium Phosphorus C-Reactive Protein Albumin PG Care Time/CCT Total # of Minutes Spent Total Time Spent with Patient: Total time spent is greater than 50% in coordination of care (as documented) at patient's floor/unit and/or counseling patient: Coding Level of Care Code 55072 SUB INP/OBS CARE 3/50MIN Diagnoses Acute kidney injury N17.9 CKD (chronic kidney disease) stage 4, GFR 15-29 ml/min N18.4 Weakness generalized R53.1
--- NOTE | 2024-02-17 13:47 | Discharge Summary ---
Date of Service February 17, 2024 Admission HPI Per Admitting Provider Mrs. 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 She was recently hospitalized at [facility] for a CHF exacerbation and discharged back home on 02/10/2024. Since being home, patient has experienced multiple falls due to weakness. She reports hitting her head and her upper back. She denies any loss of consciousness. She had CT of her thorac ic spine, lumbar spine, head, and cervical spine, as well as a chest x-ray. Imaging was significant for moderate bilateral pleural effusions, and cardiomegaly with persistent pulmonary edema, but otherwise no acute processes noted. She does have extensive bruising around T1, her left upper arm, left lower abdominal quadrant, as well as diffuse bruising on bilateral arms and legs. It appears that there is some cardiorenal syndrome occurring with hyponatremia as well as acute on chronic kidney injury. The patient appears to be intravascularly depleted, while still having 1+ bilateral lower extremity edema and moderate bilateral pleural effusions. Nephrology has been consulted. Currently, the patient endorses nausea relieved by Zofran and minor headache. She reports generalized weakness. Patient denies chest pain, dyspnea, abdominal pain, fever, chills, or localized weakness. PT and OT consults have been placed. Principal Diagnosis multiple falls Discharge Exam General: No acute distress, nondiaphoretic, well-developed, well-nourished. Skin: Contusions noted on midline upper back, left upper arm, scalp, left lower abdominal quadrant. Scattered bruising noted on bilateral arms and lower extremities. 1+ edema bilateral lower extremities. Cardiac: Regular rate and rhythm without murmurs gallops or rubs. Pulm: No respiratory distress. Diminished breath sounds at bases bilaterally. Breath sounds otherwise clear to auscultation. No wheezing, rales, rhonchi. Abdominal: Positive bowel sounds x 4. Soft, nontender, without masses or organomegaly. No guarding or rebound tenderness. Neuro: A&O x3. No focal neurological deficits. Discharge Data Allergies Allergy/AdvReac Type Severity Reaction Status Date / Time adhesive Allergy Intermediate REDNESS Verified 01/30/24 09:26 AND IRRITATION FROM PAIN PATCH, TAPE latex Allergy Intermediate ALLERGIC Verified 01/30/24 09:26 TO LATEX TAPE/RASH/ITCHING morphine Allergy Intermediate swelling Verified 01/30/24 09:26 nausea vomiting olmesartan Allergy Unknown UNKNOWN Verified 01/30/24 09:26 benzonatate AdvReac Intermediate confusion Verified 01/30/24 09:26 [From Tessalchemo Perlluis fernando] dulaglutide [From Trulicity] AdvReac Intermediate AFFECTS Verified 01/30/24 09:26 MUSCLES exenatide [From Byetta] AdvReac Intermediate Diarrhea Verified 01/30/24 09:26 ezetimibe AdvReac Intermediate MUSCLE Verified 01/30/24 09:26 ACHES glipizide AdvReac Intermediate Diarrhea Verified 01/30/24 09:26 glyburide AdvReac Intermediate Diarrhea Verified 01/30/24 09:26 lisinopril AdvReac Intermediate LIGHTHEADED Verified 01/30/24 09:26 AND DIZZY losartan AdvReac Intermediate dizziness Verified 01/30/24 09:26 metformin AdvReac Intermediate Diarrhea Verified 01/30/24 09:26 pioglitazone AdvReac Intermediate DIARRHEA Verified 01/30/24 09:26 NAUSEA sitagliptin [From Januvia] AdvReac Intermediate Diarrhea Verified 01/30/24 09:26 Yfvanew-QYR-RgO Reductase AdvReac Intermediate myalgias Verified 01/30/24 09:26 Inhibitor and [Hxiuhkg-Yul-Uzp Reductase weakness Inhibitor] aspirin AdvReac Mild GI SYMPTOMS Verified 01/30/24 09:26 Consultations 02/13/24 06:33 ED Decision to Admit Stat 02/13/24 15:25 Consult Nephrology Routine 02/16/24 10:17 Consult Palliative Care Routine Ordered Studies 02/13/24 05:08 CT cervical spine wo con Stat CT head/brain wo con Stat 02/13/24 05:13 CT lumbar spine wo con Stat CT thoracic spine wo con Stat Hospital Course (1) Multiple falls: - Presents after multiple falls at home following recent hospital discharge on 02/10/2024. - CT of thoracic spine, lumbar spine, head, cervical spine as well as CXR revealed moderate bilateral pleural effusions and cardiomegaly with persistent pulmonary edema otherwise negative for acute processes. - Respiratory bio fire negative on admission. - UA negative on admission. - TSH WNL. - PT OT consults. Plan [facility] but still wants to check with heart failure team (Erinn Mcmanus) (2) Heart failure with mildly reduced ejection fraction (HFmrEF): - Most recent echo 12/18/2023 revealed EF= 40-45%. - Follows with heart failure clinic. Multiple recent admissions due to heart failure exacerbations. - Troponin elevated on admission at 270. Repeat 251. Patient denies chest pain. No acute ECG changes. Most likely due to demand ischemia. - Moderate bilateral pleural effusions and persistent pulmonary edema. - Continue spironolactone, Eliquis, Ranexa, carvedilol - 1800 ml fluid restriction while here (3) CKD (chronic kidney disease) stage 4, GFR 15-29 ml/min: - Suspect cardiorenal syndrome in setting of hyponatremia and acute on chronic kidney injury - Hypertonic hyponatremia - continue to fluid restrict - Continue to hold Bumex - Nephrology consulted, continue to follow their recommendations - Avoid nephrotoxic agents when possible (4) DM II (diabetes mellitus, type II), controlled: - Monitor BSG ACHS, goal is 90-140 - CF 20, CR 12 - Heart healthy/DM 2 diet - Adjust regimen as needed (5) PAF (paroxysmal atrial fibrillation): - Currently in paced rhythm - Continue Carvedilol and Eliquis Plan CODE STATUS: DNR/DNI Total Time Total Time Spent Total Time Spent (In Minutes): 32 Discharge Plan Discharge Items Patient Disposition: Transfer [facility] Reason For Visit: repeated falls, weakness Discharge Diagnosis: weakness Condition on Discharge: Fair Activity: Resume your previous activity Non-emergency contact: Primary Care Provider Call non-emergency contact if: you have any medication questions Follow-up/Referrals: Ebony Alvarenga, [Primary Care Provider] - Diet: Carb Consistent or DM2, Heart Healthy and Low Potassium (2gm) Addtl Attending Provider Instructions: Angy Foster with hospice (or comfort care) but wants to still be able to check in with her cardiology team genet Urmila Mcmanus. Pending Studies at Discharge: No Stand-Alone Forms: My [employer], Smoking Cessation Medications and DC Order Prescriptions: Continued cholecalciferol (vitamin D3) 25 mcg (1,000 unit) capsule 1,000 unit PO QAM trazodone 50 mg tablet 50 mg PO HS PRN (Reason: insomnia) Qty: 90 1RF calcitriol [Rocaltrol] 0.25 mcg capsule 0.25 mcg PO 3XWK Qty: 12 1RF Rx Instructions: MONDAY/MONDAY/MONDAY/ IN THE AM Eliquis 2.5 mg tablet 2.5 mg PO BID Qty: 180 3RF (DME) insulin syringe-needle U-100 0.3 mL 31 gauge x 5/16" syringe See Rx Instructions .Route Qty: 100 3RF Rx Instructions: test three times daily (DME) FreeStyle Rossy 14 Day Sensor Kit See Rx Instructions .Route Qty: 1 5RF Rx Instructions: Testing BS 4-5 times per day ranolazine 500 mg tablet extended release 12 hr 500 mg PO BID Qty: 180 3RF levothyroxine 75 mcg tablet 75 mcg PO QAM Qty: 90 1RF insulin asp prt-insulin aspart [Novolog Mix 70-30 U-100 Insuln] 100 unit/mL ( 70-30) solution 15 - 30 unit SUBCUT AMPM Qty: 30 5RF Rx Instructions: Per home sliding scale (DME) FreeStyle Rossy 14 Day Eddy Misc See Rx Instructions .Route Qty: 6 1RF Rx Instructions: Testing BS 4-5 times per day ondansetron HCl 8 mg tablet 8 mg PO Q8H PRN (Reason: nausea and vomiting) Qty: 30 0RF sertraline 50 mg tablet 75 mg PO DAILY Qty: 135 1RF pantoprazole [Protonix] 40 mg tablet,delayed release (DR/EC) 40 mg PO BID Qty: 180 1RF spironolactone 50 mg tablet 50 mg PO DAILY Qty: 30 2RF carvedilol 3.125 mg tablet 3.125 mg PO BID Qty: 180 3RF Brilinta 60 mg tablet 60 mg PO BID Qty: 90 3RF vitamin E 400 unit capsule 400 unit PO QAM senna 8.6 mg capsule 8.6 mg PO DAILY PRN (Reason: constipation) Qty: 10 0RF polyethylene glycol 3350 [Miralax] 17 gram/dose Powder 17 g PO TID Qty: 119 0RF gabapentin 300 mg capsule 300 mg PO TID magnesium oxide 400 mg (241.3 mg magnesium) Tablet 400 mg PO QPM Qty: 30 0RF Changed bumetanide 2 mg tablet 4 mg PO DAILY PRN (Reason: fluid overload) Qty: 200 3RF Discontinued potassium gluconate 595 mg (99 mg) tablet 595 mg PO DAILY PRN (Reason: With Bumex) Rx Instructions: Take 1 tablet if you take a Bumex dose Discharge Orders: Discharge Order (Routine); Ordered 02/17/24 Ordered By: Bhanu Varghese/Other Patient Handouts: Nutrition for Wound Healing, Managing Type 2 Diabetes, Special Foot Care for Diabetes Admission Data Admit Date/Time: 02/13/24 09:52 Attending Provider: Bhanu Rueda Admit Provider: John Downing Primary Care Provider: Ebony Alvarenga Other Providers: Fracisco Dan; Janie Thompson; [place],[facility], [place]; [facility]; Casandra Smart Other Interventions: Discharge Summary Assessment (RN) Last Done: 02/17/24 15:37 Coding Level of Care Code 67130 INP/OBS DISCH >30 MIN Diagnoses Multiple falls R29.6 Heart failure with mildly reduced ejection fraction (HFmrEF) I50.22 CKD (chronic kidney disease) stage 4, GFR 15-29 ml/min N18.4 Controlled type 2 diabetes mellitus with diabetic nephropathy, with long-term current use of insulin E11.21; Z79.4 Diabetes mellitus complication detail: with nephropathy Diabetes mellitus complication status: with kidney complications Diabetes mellitus termination clerk insulin use: with termination clerk use PAF (paroxysmal atrial fibrillation) I48.0
== END 2024-02-17 16:11 | DRG 292 ==
LOC: SUATTDRO → ED 05:03 → 2S 09:52 → SUATTDRO 09:52 → 2S 14:46
DX: I27.20 Pulmonary hypertension, unspecified; Z79.4 Long term (current) use of insulin; Z66 Do not resuscitate; I48.0 Paroxysmal atrial fibrillation; Z95.2 Presence of prosthetic heart valve; I13.0 Hypertensive heart and chronic kidney disease with heart failure and stage 1 through stage 4 chronic kidney disease, or unspecified chronic kidney disease; E87.1 Hypo-osmolality and hyponatremia; I25.2 Old myocardial infarction; E11.51 Type 2 diabetes mellitus with diabetic peripheral angiopathy without gangrene; Z79.890 Hormone replacement therapy; Z95.810 Presence of automatic (implantable) cardiac defibrillator; I24.89 Other forms of acute ischemic heart disease; N17.9 Acute kidney failure, unspecified; Z79.01 Long term (current) use of anticoagulants; E03.9 Hypothyroidism, unspecified; E11.22 Type 2 diabetes mellitus with diabetic chronic kidney disease; N18.4 Chronic kidney disease, stage 4 (severe); I50.22 Chronic systolic (congestive) heart failure; R29.5 Transient paralysis; Z91.040 Latex allergy status; Z86.73 Personal history of transient ischemic attack (TIA), and cerebral infarction without residual deficits; Z88.6 Allergy status to analgesic agent; Z95.5 Presence of coronary angioplasty implant and graft; R29.6 Repeated falls

== ENCOUNTER 2024-06-27 11:12 | Inpatient (IN) ==
[2024-06-27 11:56] LABS: Basophils # (auto) 0.01 K/uL (0.00-0.20); Basophils % (auto) 0.1 %; Eosinophils # (auto) 0.03 K/uL (0.00-0.50); Eosinophils % (auto) 0.4 %; Hematocrit (blood only) 38.3 % (37.0-47.0); Hemoglobin 11.9 g/dl (12.0-16.0); Immature Granulocytes # (auto) 0.02 K/uL (0.01-0.20); Immature Granulocytes % (auto) 0.3 %; Lymphocytes # (auto) 1.01 K/uL (1.20-3.40); Lymphocytes % (auto) 12.8 %; Mean Corpuscular Hemoglobin 30.2 pg (25.0-34.0); Mean Corpuscular Hgb Conc 31.1 g/dL (32.0-36.0); Mean Corpuscular Volume 97.2 fL (80.0-100.0); Mean Platelet Volume 11.1 fL (9.4-12.4); Monocytes # (auto) 0.79 K/uL (0.11-0.59); Monocytes % (auto) 10.1 %; Neutrophils % (auto) 76.3 %; Platelet Count 244 K/uL (130-400); RDW Coefficient of Variation 16.3 % (11.5-14.5); RDW Standard Deviation 58.1 fL (36.4-46.3); Red Blood Count 3.94 M/uL (4.20-5.40); White Blood Count 7.86 K/ul (4.8-10.8)
[2024-06-27 12:12] LABS: Alanine Aminotransferase 15 U/L (7-52); Albumin Globulin Ratio 1.1 (0.9-2); Albumin Level 3.9 gm/dl (3.4-5.0); Alkaline Phosphatase 144 U/L (34-104); Anion Gap 8 (3-11); Aspartate Aminotransferase 25 U/L (13-39); BUN Creatinine Ratio 26.8 (10-20); Bilirubin,Total 0.8 mg/dl (0.2-1.0); Blood Urea Nitrogen 53 mg/dl (6-23); Calcium 9.4 mg/dl (8.6-10.3); Carbon Dioxide 34 mmol/L (21-32); Chloride 92 mmol/L (98-107); Est GFR (African American) 26.2 ml/min; Est GFR (Non-African American) 22.6 ml/min; Globulin 3.5 gm/dl (2.5-4.0); Glucose 287 mg/dl (70-99(Fasting)); Potassium 4.1 mmol/L (3.5-5.1); Sodium 134 mmol/L (136-145); Total Protein 7.4 gm/dl (6.0-8.3)
--- NOTE | 2024-06-27 12:14 | Emergency Department Note ---
History of Present Illness General Chief Complaint: Shortness of Breath/Dyspnea Stated Complaint: SOB, REF BY DOC Time Seen by Provider: 06/27/24 11:47 History of Present Illness Provider Complaint: shortness of breath Onset (ago): day(s) (3) Consistency/Duration: + progressively worsening Relieved By: + rest and + upright position Exacerbated By: + exertion Known history of: congestive heart failure Associated symptoms: + chest congestion; no chest pain, no fever, no cough, no wheezing, no sputum production or no abdominal pain HPI Narrative: Patient did take home dose of Bumex and Eliquis tonight. Home Medications Medication Instructions Recorded Confirmed Type vitamin E 268 mg (400 unit) capsule 400 unit PO QAM 03/29/20 06/27/24 History cholecalciferol (vitamin D3) 25 1,000 unit PO QAM 05/17/21 06/27/24 History mcg (1,000 unit) capsule trazodone 50 mg tablet 50 mg PO HS PRN insomnia #90 tabs 06/23/22 06/27/24 Rx polyethylene glycol 3350 17 17 g PO TID #119 grams 12/23/22 06/27/24 Rx gram/dose oral powder (Miralax) sennosides 8.6 mg capsule (senna) 8.6 mg PO DAILY PRN constipation 12/23/22 06/27/24 Rx #10 caps flash glucose scanning reader #6 ea 07/24/23 06/27/24 Rx (FreeStyle Rossy 14 Day [place]) apixaban 2.5 mg tablet (Eliquis) 2.5 mg PO BID #180 tabs 10/30/23 06/27/24 Rx ranolazine 500 mg tablet,extended 500 mg PO BID #180 tabs 11/14/23 06/27/24 Rx release,12 hr carvedilol 3.125 mg tablet 3.125 mg PO BID #180 tabs 12/28/23 06/27/24 Rx magnesium oxide 400 mg (241.3 mg 400 mg PO QPM #30 tabs 01/22/24 06/27/24 Rx magnesium) tablet insulin syringe-needle U-100 0.3 #100 ea 01/23/24 06/27/24 Rx mL 31 gauge x 5/16" ticagrelor 60 mg tablet (Brilinta) 60 mg PO BID #90 tabs 01/26/24 06/27/24 Rx pantoprazole 40 mg tablet,delayed 40 mg PO BID #180 tabs 01/30/24 06/27/24 Rx release (Protonix) gabapentin 300 mg capsule 300 mg PO TID 01/31/24 06/27/24 History insulin aspar prt-insulin aspart 15 - 30 unit (0.15 - 0.3 mL) 02/29/24 06/27/24 Rx 100 unit/mL (70-30) subcutaneous subcut AMPM #30 mL soln (Novolog Mix 70-30 U-100 Insuln) bumetanide 2 mg tablet 2 mg PO DAILY PRN fluid overload 03/18/24 06/27/24 Rx #200 tabs spironolactone 50 mg tablet 50 mg PO DAILY #90 tabs 04/29/24 06/27/24 Rx flash glucose sensor (FreeStyle #1 ea 05/09/24 06/27/24 Rx Rossy 14 Day Sensor kit) calcitriol 0.25 mcg capsule 0.25 mcg PO 3XWK #12 caps 05/20/24 06/27/24 Rx (Rocaltrol) levothyroxine 75 mcg tablet 75 mcg PO QAM #90 tabs 05/31/24 06/27/24 Rx ondansetron HCl 8 mg tablet 8 mg PO Q8H PRN nausea and 05/31/24 06/27/24 Rx vomiting #30 tabs potassium chloride 20 mEq 40 meq (2 x 20 mEq) PO DAILY #2 06/11/24 06/27/24 Rx tablet,extended release(part/cryst) tabs sertraline 100 mg tablet 100 mg PO DAILY #90 tabs 06/12/24 06/27/24 Rx Allergies Allergy/AdvReac Type Severity Reaction Status Date / Time adhesive Allergy Intermediate REDNESS Verified 06/27/24 10:21 AND IRRITATION FROM PAIN PATCH, TAPE latex Allergy Intermediate ALLERGIC Verified 06/27/24 10:21 TO LATEX TAPE/RASH/ITCHING morphine Allergy Intermediate swelling Verified 06/27/24 10:21 nausea vomiting olmesartan Allergy Unknown UNKNOWN Verified 06/27/24 10:21 benzonatate AdvReac Intermediate confusion Verified 06/27/24 10:21 [From Tesmin Brennan] dulaglutide [From Trulicity] AdvReac Intermediate AFFECTS Verified 06/27/24 10:21 MUSCLES exenatide [From Byetta] AdvReac Intermediate Diarrhea Verified 06/27/24 10:21 ezetimibe AdvReac Intermediate MUSCLE Verified 06/27/24 10:21 ACHES glipizide AdvReac Intermediate Diarrhea Verified 06/27/24 10:21 glyburide AdvReac Intermediate Diarrhea Verified 06/27/24 10:21 lisinopril AdvReac Intermediate LIGHTHEADED Verified 06/27/24 10:21 AND DIZZY losartan AdvReac Intermediate dizziness Verified 06/27/24 10:21 metformin AdvReac Intermediate Diarrhea Verified 06/27/24 10:21 pioglitazone AdvReac Intermediate DIARRHEA Verified 06/27/24 10:21 NAUSEA sitagliptin [From ] AdvReac Intermediate Diarrhea Verified 06/27/24 10:21 [id number] Reductase AdvReac Intermediate myalgias Verified 06/27/24 10:21 Inhibitor and [[place]-Ion-Lch Reductase weakness Inhibitor] aspirin AdvReac Mild GI SYMPTOMS Verified 06/27/24 10:21 Past Med/Surg History Problem List (Updated 06/27/24 @ 13:38 by Get Cano MD) Atrial fibrillation, permanent Heart failure with mildly reduced ejection fraction (HFmrEF) Anemia Unstable angina Ambulatory dysfunction (Acute) Urinary incontinence Hematuria Osteoarthritis Hx of atrioventricular node ablation Tricuspid regurgitation Statin myopathy Antiplatelet or antithrombotic long-term use Hyperlipidemia Depression DM II (diabetes mellitus, type II), controlled Esophageal spasm Valvular heart disease Mitral regurgitation Occlusion and stenosis of unspecified carotid artery (Acute) Right rotator cuff tear CKD (chronic kidney disease) stage 4, GFR 15-29 ml/min (Acute) Pleural effusion (Acute) Restrictive lung disease Vitamin D deficiency Chronic anticoagulation (Acute) Myalgia due to statin Stenosis of left internal carotid artery S/P carotid endarterectomy Left side 09/27/21 Malignant neoplasm of central portion of right breast in female, estrogen receptor positive (Chronic 08/17/21) PAF (paroxysmal atrial fibrillation) Breast cancer, right Right breast mastectomy 09/17/21 at [facility] Chronic combined systolic and diastolic CHF (congestive heart failure) (Chronic) EF 40% per 10/16/21 ECHO Pulmonary hypertension RVSP 50-60mmHg on 12/2023 ECHO S/P coronary artery stent placement (10/2018) NATY prox mid LAD Ischemic cardiomyopathy Insomnia Biventricular ICD (implantable cardioverter-defibrillator) in place (04/30/20) Medtronic implanted 04/30/2020. Capped right ventricular pacing lead Last check 09/2021 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) Secondary hyperparathyroidism of renal origin Anemia due to chronic kidney disease CAD (coronary artery disease) F/U DR CUEVA S/p NATY x 1 to Cx in 2019; NATY to ostial LM 01/10/20 Chronic obstructive pulmonary disease, unspecified Breathing stable PAD (peripheral artery disease) S/p QUALITY CONTROL SYSTEMS MANAGER and stenting of right SFA, and QUALITY CONTROL SYSTEMS MANAGER of left SFA and common femoral artery Spondylosis (Acute) GERD (gastroesophageal reflux disease) Hypothyroidism Left bundle branch block Bilateral carotid artery stenosis H/o bilateral CEAs in 2016 Per 07/2021 vascular note- carotid ultrasound from office visit showed patent right CEA with velocities suggesting 50-59% stenosis restenosis Patent left CEA with velocities suggesting 99% restenosis - had re-do of left CEA 09/27/21 Medical History Acute exacerbation of CHF (congestive heart failure) Orthostasis Acute kidney injury superimposed on chronic kidney disease Non-ST elevation [place] (NSTEMI) Nausea and vomiting after administration of anesthetic agent severe PONV s/p Left carotid surgery 09/27/21 at [facility] History of CVA (cerebrovascular accident) Had RUE weakness and numbness after 09/17/21 breast surgery- CT scan of head negative; unable to do MRI due to ICD Per PCP records 10/22/21= "Savage her post op RUE sx related to possible small stroke/TIA" Subclavian artery stenosis Rheumatoid arthritis No medications Followed with rheum in the past- no recent issues Chronic kidney disease STAGE IV-F/U DR SALINAS Diabetes mellitus, type 2 Glucose fluctuates SOB (shortness of breath) on exertion DVT (deep venous thrombosis) LOWER LEG 2019 Aortic stenosis, severe S/p TAVR 10/2019 NSTEMI (non-ST elevated myocardial infarction) Most recent 12/2019 (mild per patient) Surgical History S/P right knee arthroscopy (04/2024) S/P AV hiren ablation (06/30/22) H/O heart artery stent H/O colonoscopy History of left-sided carotid endarterectomy (09/27/21) redo L CEA, Dr Bateman Status post partial mastectomy of right breast (09/17/21) 09/17/21 - Done under [place] with LMA #4. Atraumatic LMA insertion. Magnet placed secondary to pacemaker. Right Breast Partial Mastectomy with [place] Chain Machine Operator Localization, Right Axillary [place] Lymph Node Biopsy(Right) - Hua Acosta, DO History of cardiac cath TOTAL 6? STENTS- 2018 and 2019 S/P coronary artery stent placement (10/2017) NATY to mid LAD S/P carotid endarterectomy B/l 2015 S/P thoracentesis (03/2020) b/l d/t CHF S/P angioplasty (02/03/21) QUALITY CONTROL SYSTEMS MANAGER L SFA History of oophorectomy History of hysterectomy History of cholecystectomy H/O: section History of cataract surgery right and left History of appendectomy Family History Daughter Coronary heart disease Cardiac stent Diabetes Mother , 83yo Diabetes Family history of hypercholesterolemia Myocardial infarction Hypertension Stroke Brother Colorectal cancer 1/2 brother Father , Accident in war Brother Diabetes 1/2 brother;Complications of DM Family/Other Myocardial infarction 1/2 sister Son Coronary heart disease Cardiac stent Hypertension Other Pacemaker Denies family history of Ovarian cancer Prostate cancer Breast cancer Social History Smoking Status: Never smoker Second Hand Exposure: No; Do You Dip or Chew Tobacco: No; Hx Alcohol Use: No Hx Substance Use: No Preferred Language: Macedonian Communication Ability: Effective Visual Impairment: No Limitations Hearing Ability: Hard of Hearing Recoating Machine Operator Required: No Beliefs That Will Affect Care: None marital status: / marital status details: passed 2000 Current Living Situation: Alone current occupational status: retired 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 How many Children do You have: 2 Feels Safe at Home: Yes Diet: regular caffeine: Yes (1 cup/day) during the past year weight has: remained stable Dental Care, Regularly: No Physical Activity Frequency: Daily Seatbelt Use: always Assistive Devices: Walker Physical Exam 2 Vital Signs: Vital Signs - 24 hr 06/27/24 11:22 06/27/24 12:16 Temperature 36.8 C Temperature Source Temporal Artery Sc an Pulse Rate 77 70 Respiratory Rate 20 Respiratory Effort / Characteristics Short of Breath SO B on Exertion Blood Pressure 164/87 H Blood Pressure Annita n 112 Pulse Oximetry 93 Oxygen Delivery Me thod Room Air Sepsis Recent Feve r Within 48 Hours No Sepsis New/Unexpla ined Change in Men sukhdev Status No Sepsis Action Take n by Nursing No Action Required Physical Exam: Physical Exam GENERAL: oriented to person, place, and time. appears well-developed and well- nourished. HENT: Exam performed. - Head: Normocephalic and atraumatic. EYES: Conjunctivae and EOM are normal. Right eye exhibits no discharge. Left eye exhibits no discharge. No scleral icterus. NECK: Normal range of motion. Neck supple. No JVD present. CV: Normal rate, regular rhythm, normal heart sounds and intact distal pulses. There is 1+ pitting edema with bilateral lower extremity. Palpable radial pulses bue. PULM/CHEST: Diminished breath sounds bilaterally. Inspiratory rales at the bases bilaterally. ABD: The abdomen is soft. There is no tenderness. NEURO: Motor and sensation grossly intact. SKIN: Skin is warm and dry. He is not diaphoretic. PSYCH: normal mood and affect. Behavior is normal. Judgment and thought content normal. Course Course 1147: The patient was evaluated in room B12B. A complete history and physical exam was performed Cardiac monitoring: An order was placed for continuous cardiac monitoring. The monitor shows a rate of 70 with sinus rhythm interpreted by me 1218: Vital signs stable. Chest x-ray shows bilateral pleural effusions right greater than left. Pleural effusions are worse compared to the previous chest x-ray. Creatinine 1.98 improved from previous baseline creatinine is around 2.3. Discussed case with Urmila Santoyo, both she and I agree that the patient should not have an emergent thoracentesis done as she took Eliquis this morning and her oxygen saturation stable. She recommends admitting the patient this time with Bumex 2 mg IV for diuresis and then see if IR can perform thoracentesis if needed. Patient is in agreement with plan. [facility] hospitalist will be made aware of patient. Administered Medications Discontinued Medications Bumetanide 2 mg/ Syringe 8 mls @ 4 mls/min IV ONE ONE Stop: 06/27/24 12:20 Last Admin: 06/27/24 12:58 Dose: 4 mls/min Documented By: NEDRA Medical Decision Making Medical Records Attestation: I reviewed the patient's medical records. External medical records reviewed. Patient was seen in the heart failure clinic by Urmila Mcmanus today. According to her note, the patient was recently admitted to [facility] for recurrent falls and joint pain. During that stay she developed chest pain and was transferred to [facility] for cardiac catheterization where she was found to have 95% obstruction of the RCA and had a stent placed. She had evidence of pleural effusion and a thoracentesis considered however the patient was discharged. Patient has been having significant more dyspnea since being admitted and having the stent placed. Patient is on Bumex 2 mg daily. Patient usually sleeps with the head of her bed semireclined. According to Ms. Mcmanus's note her lower extremity edema is stable. According to Ms. Mao's note the patient does not appear excessively hypervolemic, her weight is below baseline, and she was borderline hypoxic so she was referred to the emergency department for IV diuresis. Is thought that if the patient had significant response to IV diuresis she may be discharged with close follow-up next week. If not responding to diuretics, patient would be need to be admitted and have thoracentesis performed according to her note. Laboratory Data Attestation: I reviewed the patient's lab results. 06/27/24 11:35 06/27/24 11:35 Lab Results 06/27/24 Range/Units 11:35 WBC 7.86 (4.8-10.8) K/ul RBC 3.94 L (4.20-5.40) M/uL Hgb 11.9 L (12.0-16.0) g/dl Hct 38.3 (37.0-47.0) % MCV 97.2 (80.0-100.0) fL MCH 30.2 (25.0-34.0) pg MCHC 31.1 L (32.0-36.0) g/dL RDW Std Deviation 58.1 H (36.4-46.3) fL RDW Coeff of Manuela 16.3 H (11.5-14.5) % Plt Count 244 (130-400) K/uL MPV 11.1 (9.4-12.4) fL Immature Gran % (Auto) 0.3 % Neut % (Auto) 76.3 % Lymph % (Auto) 12.8 % [place] % (Auto) 10.1 % Eos % (Auto) 0.4 % Baso % (Auto) 0.1 % Neut # (Auto) 6.00 (1.40-6.50) K/uL Lymph # (Auto) 1.01 L (1.20-3.40) K/uL [place] # (Auto) 0.79 H (0.11-0.59) K/uL Eos # (Auto) 0.03 (0.00-0.50) K/uL Baso # (Auto) 0.01 (0.00-0.20) K/uL Immature Gran # (Auto) 0.02 (0.01-0.20) K/uL PT 12.6 H (9.0-12.0) Seconds INR 1.2 H (0.9-1.1) APTT 31 (21-31) Seconds PTT Ratio 1.2 Sodium 134 L (136-145) mmol/L Potassium 4.1 (3.5-5.1) mmol/L Chloride 92 L (98-107) mmol/L Carbon Dioxide 34 H (21-32) mmol/L Anion Gap 8 (3-11) BUN 53 H (6-23) mg/dl Creatinine 1.98 H (0.6-1.2) mg/dl Est Cr Clr Drug Dosing Not Reportable Est GFR ( Amer) 26.2 ml/min Est GFR (Non-Af Amer) 22.6 ml/min BUN/Creatinine Ratio 26.8 H (10-20) Glucose 287 H (70-99(Fasting)) mg/dl Calcium 9.4 (8.6-10.3) mg/dl Total Bilirubin 0.8 (0.2-1.0) mg/dl AST 25 (13-39) U/L ALT 15 (7-52) U/L Alkaline Phosphatase 144 H (34-104) U/L Troponin I High Sens 5088.5 H* (0-14) pg/ml B-Natriuretic Peptide 1261 H (0-100) pg/ml Total Protein 7.4 (6.0-8.3) gm/dl Albumin 3.9 (3.4-5.0) gm/dl Globulin 3.5 (2.5-4.0) gm/dl Albumin/Globulin Ratio 1.1 (0.9-2) Imaging Data Attestation: I personally reviewed and interpreted this imaging study as follows: My Impression: Bilateral pleural effusions right greater than left right pleural effusion is larger compared to the chest x-ray done on February 13, 2024 Radiologist's Impression: Chest X-Ray 06/27/24 11:27 XR chest 1V portable HISTORY: 83 years-old Female Chest pain, nonspecific COMPARISON: 02/13/2024 TECHNIQUE: AP view of the chest FINDINGS: Cardiac silhouette is enlarged. Aortic valvular endograft and coronary arterial stent. Left subclavian pacer/AICD. No pneumothorax. Layering pleural effusions with bibasilar consolidation redemonstrated. Pulmonary vascular congestion with interstitial coarsening. Bones appear grossly intact. IMPRESSION: 1. Cardiomegaly with interstitial pulmonary edema. 2. Layering pleural effusions with bibasilar consolidation, likely atelectatic. ACT 112: Negative or not required by law. The above report was generated using voice recognition software. It may contain grammatical, syntax or spelling errors. Electronically signed by: Irving Lerner M.D. 06/27/2024 12:16 PM ECG Data Attestation: I personally reviewed and interpreted this ECG as follows: Interpretation: Paced rhythm with rate of 70. NM 162 QTc 518. No ectopy. [facility] Narrative 1147: The patient was evaluated in room B12B. A complete history and physical exam was performed Cardiac monitoring: An order was placed for continuous cardiac monitoring. The monitor shows a rate of 70 with sinus rhythm interpreted by me 1218: Vital signs stable. Chest x-ray shows bilateral pleural effusions right greater than left. Pleural effusions are worse compared to the previous chest x-ray. Creatinine 1.98 improved from previous baseline creatinine is around 2.3. Discussed case with Urmila Santoyo, both she and I agree that the patient should not have an emergent thoracentesis done as she took Eliquis this morning and her oxygen saturation stable. She recommends admitting the patient this time with Bumex 2 mg IV for diuresis and then see if IR can perform thoracentesis if needed. Patient is in agreement with plan. [facility] hospitalist will be made aware of patient. Impression & Plan Pleural effusion, CKD (chronic kidney disease) stage 4, GFR 15-29 ml/min, Chronic anticoagulation Discharge Plan Visit Data Chief Complaint: Shortness of Breath/Dyspnea Stated Complaint: SOB, REF BY DOC ED Provider: Get Cano Discharge Problem: Pleural effusion, CKD (chronic kidney disease) stage 4, GFR 15-29 ml/min, Chronic anticoagulation Patient Disposition: Admitted As Inpatient Forms Stand Alone Forms: [facility] Prescriptions Prescriptions: No Action cholecalciferol (vitamin D3) 25 mcg (1,000 unit) capsule 1,000 unit PO QAM trazodone 50 mg tablet 50 mg PO HS PRN (Reason: insomnia) Qty: 90 1RF Eliquis 2.5 mg tablet 2.5 mg PO BID Qty: 180 3RF (DME) insulin syringe-needle U-100 0.3 mL 31 gauge x 5/16" syringe See Rx Instructions .Route Qty: 100 3RF Rx Instructions: test three times daily insulin asp prt-insulin aspart [Novolog Mix 70-30 U-100 Insuln] 100 unit/mL (70-30) solution 15 - 30 unit SUBCUT AMPM Qty: 30 5RF Rx Instructions: Per home sliding scale (DME) FreeStyle Rossy 14 Day Sensor Kit See Rx Instructions .Route Qty: 1 5RF Rx Instructions: Testing BS 4-5 times per day calcitriol [Rocaltrol] 0.25 mcg capsule 0.25 mcg PO 3XWK Qty: 12 1RF Rx Instructions: MONDAY/MONDAY/MONDAY/ IN THE AM levothyroxine 75 mcg tablet 75 mcg PO QAM Qty: 90 1RF ondansetron HCl 8 mg tablet 8 mg PO Q8H PRN (Reason: nausea and vomiting) Qty: 30 0RF potassium chloride 20 mEq tablet,ER particles/crystals 40 meq PO DAILY Qty: 2 0RF sertraline 100 mg tablet 100 mg PO DAILY Qty: 90 1RF ranolazine 500 mg tablet extended release 12 hr 500 mg PO BID Qty: 180 3RF (DME) FreeStyle Rossy 14 Day [place] Misc See Rx Instructions .Route Qty: 6 1RF Rx Instructions: Testing BS 4-5 times per day pantoprazole [Protonix] 40 mg tablet,delayed release (DR/EC) 40 mg PO BID Qty: 180 1RF carvedilol 3.125 mg tablet 3.125 mg PO BID Qty: 180 3RF Brilinta 60 mg tablet 60 mg PO BID Qty: 90 3RF bumetanide 2 mg tablet 2 mg PO DAILY PRN (Reason: fluid overload) Qty: 200 3RF spironolactone 50 mg tablet 50 mg PO DAILY Qty: 90 1RF vitamin E 400 unit capsule 400 unit PO QAM senna 8.6 mg capsule 8.6 mg PO DAILY PRN (Reason: constipation) Qty: 10 0RF polyethylene glycol 3350 [Miralax] 17 gram/dose Powder 17 g PO TID Qty: 119 0RF gabapentin 300 mg capsule 300 mg PO TID magnesium oxide 400 mg (241.3 mg magnesium) Tablet 400 mg PO QPM Qty: 30 0RF Referrals Referrals: Ebony Alvarenga DO [Primary Care Provider] -
--- NOTE | 2024-06-27 12:18 | XRay Report ---
XR chest 1V portable HISTORY: 83 years-old Female Chest pain, nonspecific COMPARISON: 02/13/2024 TECHNIQUE: AP view of the chest FINDINGS: Cardiac silhouette is enlarged. Aortic valvular endograft and coronary arterial stent. Left subclavia n pacer/AICD. No pneumothorax. Layering pleural effusions with bibasilar consolidation redemonstrated . Pulmonary vascular congestion with interstitial coarsening. Bones appear grossly intact. IMPRESSION: 1. Cardiomegaly with interstitial pulmonary edema. 2. Layering pleural effusions with bibasilar consolidation, likely atelectatic. ACT 112: Negative or not required by law. The above report was generated using voice recognition software. It may contain grammatical, syntax o r spelling errors. Electronically signed by: Irving Lerner M.D. 06/27/2024 12:16 PM
[2024-06-27 12:22] LABS: INR 1.2 (0.9-1.1); Partial Thromboplastin Ratio 1.2; Partial Thromboplastin Time 31 Seconds (21-31); Prothrombin Time 12.6 Seconds (9.0-12.0)
[2024-06-27 12:23] LABS: Troponin I High Sensitivity 5088.5 pg/ml (0-14)
--- NOTE | 2024-06-27 12:47 | History & Physical Report ---
Date of Service June 27, 2024 Assessment & Plan (1) Acute exacerbation of CHF (congestive heart failure): Plan: Acute on chronic heart failure with reduced ejection fraction; history of AAS s/p TAVR, history of paroxysmal A-fib on Eliquis Chest x-ray: Cardiomegaly with interstitial pulmonary edema, layering pleural effusions with suspected atelectatic bibasilar consolidation Echo 12/18/2023: EF 40-45%. Moderate to severe MR. RVSP 5060. Reportedly with RCA stent placed at [facility] 06/25 Confirmed with [facility] lab that troponin on 06/25 was 37,112. Current troponin of 5088 likely downtrending from that time, patient reports she has not had chest pain since her stent was placed and is chest pain-free on admission EKG: Ventricular paced BNP 1261 Continue Bumex IV twice daily with potassium supplementation Continue Brilinta, Eliquis Continue carvedilol Continue spironolactone Continue Ranexa Could consider thoracentesis however given her anticoagulation and bilateral effusion/edema will attempt to maximize IV diuresis at this time (2) Heart failure with mildly reduced ejection fraction (HFmrEF): (3) DM II (diabetes mellitus, type II), controlled: Plan: Type II DM Insulin 70/30 15-30 units twice daily switch to basal bolus insulin Goal BSG [id number] Lantus 10 units twice daily, CF 30, carb ratio 15 (4) CKD (chronic kidney disease) stage 4, GFR 15-29 ml/min: Plan: CKD Baseline creatinine around 22.2, due to ischemic neuropathy/cardiorenal Continue Bumex Continue calcitriol Low-salt diet Plan DVT prophylaxis: Anticoagulated Diet: Heart healthy, DM 2 Dispo: PCU CODE STATUS: DNR/DNI History of Present Illness Primary Care Provider: DO Ban Solares is an 83-year-old female with past medical history of HFrEF EF 40%, HERMELINDO/ARB intolerance due to CKD, Entresto intolerance due to orthostasis, paroxysmal atrial fibrillation/flutter on Eliquis, biventricular ICD, aortic stenosis s/p TAVR, CAD on Brilinta/beta-estephania/Eliquis/Ranexa, frequent hospitalizations with diuretic resistance who had transiently agreed to hospice however deferred this after clinically improving at her last hospitalization who was referred for worsening dyspnea. Patient was recently admitted to [facility], developed chest pain and was transferred to [place] for cardiac catheterization was found to have 95% RCA occlusion treated with PCI. Since stent placement she has been taking Bumex 2 mg daily but has continued to have worsening shortness of breath and dyspnea. Was seen at CHF clinic and was referred to the emergency department for IV diuresis, if insignificant response to diuresis was recommended by clinic to be admitted and consideration of thoracentesis. EKG on admission is ventricular paced rhythm Creatinine 1.98, baseline appears to range from 1.62.6 recently Bumex 2 mg IV given in the ER BNP elevated at 1261, recent trough appears around [id number] Troponin markedly elevated at 5088. Patient reportedly with recent cardiac catheterization at [facility], records pending Ladkathrin is seen at the bedside with family present. She reports that she feels overall okay, but has been more short of breath in the last few days. She endorses orthopnea. Breathing improves when sitting up. She has not had much leg swelling, but notes she never gets much leg swelling with her CHF exacerbations. She reports that she was admitted to [facility] to address a knee issue as she has followed with Dr. Rader, but she developed chest pain during her admission and was transferred to [place] for cardiac cath for stent placement on 06/25 (2 days ago). Did contact [facility], confirmed with lab that her troponin on 06/25 was 37,112. Current troponin of 5088 is downtrending from that time She reports she has had no chest pain since her discharge from the hospital. No lightheadedness dizziness syncope or presyncope. No fever chills or sweats. No cold-like symptoms. No cough Medical History: Reviewed Medications: Reviewed Surgical History: Reviewed Family history: Reviewed Allergies: Reviewed Social History: Reviewed Code Status: DNR/DNI Allergies Allergy/AdvReac Type Severity Reaction Status Date / Time adhesive Allergy Intermediate REDNESS Verified 06/27/24 10:21 AND IRRITATION FROM PAIN PATCH, TAPE latex Allergy Intermediate ALLERGIC Verified 06/27/24 10:21 TO LATEX TAPE/RASH/ITCHING morphine Allergy Intermediate swelling Verified 06/27/24 10:21 nausea vomiting olmesartan Allergy Unknown UNKNOWN Verified 06/27/24 10:21 benzonatate AdvReac Intermediate confusion Verified 06/27/24 10:21 [From Giovanni Brennan] dulaglutide [From Trulicity] AdvReac Intermediate AFFECTS Verified 06/27/24 10:21 MUSCLES exenatide [From Byetta] AdvReac Intermediate Diarrhea Verified 06/27/24 10:21 ezetimibe AdvReac Intermediate MUSCLE Verified 06/27/24 10:21 ACHES glipizide AdvReac Intermediate Diarrhea Verified 06/27/24 10:21 glyburide AdvReac Intermediate Diarrhea Verified 06/27/24 10:21 lisinopril AdvReac Intermediate LIGHTHEADED Verified 06/27/24 10:21 AND DIZZY losartan AdvReac Intermediate dizziness Verified 06/27/24 10:21 metformin AdvReac Intermediate Diarrhea Verified 06/27/24 10:21 pioglitazone AdvReac Intermediate DIARRHEA Verified 06/27/24 10:21 NAUSEA sitagliptin [From Januvia] AdvReac Intermediate Diarrhea Verified 06/27/24 10:21 Jgillfs-EGE-RwX Reductase AdvReac Intermediate myalgias Verified 06/27/24 10:21 Inhibitor and [Vokovkq-Noe-Kny Reductase weakness Inhibitor] aspirin AdvReac Mild GI SYMPTOMS Verified 06/27/24 10:21 Home Medications Medication Instructions Recorded Confirmed Type vitamin E 268 mg (400 unit) capsule 400 unit PO QAM 03/29/20 06/27/24 History cholecalciferol (vitamin D3) 25 1,000 unit PO QAM 05/17/21 06/27/24 History mcg (1,000 unit) capsule trazodone 50 mg tablet 50 mg PO HS PRN insomnia #90 tabs 06/23/22 06/27/24 Rx polyethylene glycol 3350 17 17 g PO TID #119 grams 12/23/22 06/27/24 Rx gram/dose oral powder (Miralax) sennosides 8.6 mg capsule (senna) 8.6 mg PO DAILY PRN constipation 12/23/22 06/27/24 Rx #10 caps flash glucose scanning reader #6 ea 07/24/23 06/27/24 Rx (FreeStyle Rossy 14 Day Wheatley) apixaban 2.5 mg tablet (Eliquis) 2.5 mg PO BID #180 tabs 10/30/23 06/27/24 Rx ranolazine 500 mg tablet,extended 500 mg PO BID #180 tabs 11/14/23 06/27/24 Rx release,12 hr carvedilol 3.125 mg tablet 3.125 mg PO BID #180 tabs 12/28/23 06/27/24 Rx magnesium oxide 400 mg (241.3 mg 400 mg PO QPM #30 tabs 01/22/24 06/27/24 Rx magnesium) tablet insulin syringe-needle U-100 0.3 #100 ea 01/23/24 06/27/24 Rx mL 31 gauge x 5/16" ticagrelor 60 mg tablet (Brilinta) 60 mg PO BID #90 tabs 01/26/24 06/27/24 Rx pantoprazole 40 mg tablet,delayed 40 mg PO BID #180 tabs 01/30/24 06/27/24 Rx release (Protonix) gabapentin 300 mg capsule 300 mg PO TID 01/31/24 06/27/24 History insulin aspar prt-insulin aspart 15 - 30 unit (0.15 - 0.3 mL) 02/29/24 06/27/24 Rx 100 unit/mL (70-30) subcutaneous subcut AMPM #30 mL soln (Novolog Mix 70-30 U-100 Insuln) bumetanide 2 mg tablet 2 mg PO DAILY PRN fluid overload 03/18/24 06/27/24 Rx #200 tabs spironolactone 50 mg tablet 50 mg PO DAILY #90 tabs 04/29/24 06/27/24 Rx flash glucose sensor (FreeStyle #1 ea 05/09/24 06/27/24 Rx Rossy 14 Day Sensor kit) calcitriol 0.25 mcg capsule 0.25 mcg PO 3XWK #12 caps 05/20/24 06/27/24 Rx (Rocaltrol) levothyroxine 75 mcg tablet 75 mcg PO QAM #90 tabs 05/31/24 06/27/24 Rx ondansetron HCl 8 mg tablet 8 mg PO Q8H PRN nausea and 05/31/24 06/27/24 Rx vomiting #30 tabs potassium chloride 20 mEq 40 meq (2 x 20 mEq) PO DAILY #2 06/11/24 06/27/24 Rx tablet,extended release(part/cryst) tabs sertraline 100 mg tablet 100 mg PO DAILY #90 tabs 06/12/24 06/27/24 Rx Past Med/Surg History Problem List Atrial fibrillation, permanent Heart failure with mildly reduced ejection fraction (HFmrEF) Anemia Unstable angina Ambulatory dysfunction (Acute) Urinary incontinence Hematuria Osteoarthritis Hx of atrioventricular node ablation Tricuspid regurgitation Statin myopathy Antiplatelet or antithrombotic long-term use Hyperlipidemia Depression DM II (diabetes mellitus, type II), controlled Esophageal spasm Valvular heart disease Mitral regurgitation Occlusion and stenosis of unspecified carotid artery (Acute) Right rotator cuff tear CKD (chronic kidney disease) stage 4, GFR 15-29 ml/min (Acute) Pleural effusion (Acute) Restrictive lung disease Vitamin D deficiency Chronic anticoagulation (Acute) Myalgia due to statin Stenosis of left internal carotid artery S/P carotid endarterectomy Left side 09/27/21 Malignant neoplasm of central portion of right breast in female, estrogen receptor positive (Chronic 08/17/21) PAF (paroxysmal atrial fibrillation) Breast cancer, right Right breast mastectomy 09/17/21 at [facility] Chronic combined systolic and diastolic CHF (congestive heart failure) (Chronic) EF 40% per 10/16/21 ECHO Pulmonary hypertension RVSP 50-60mmHg on 12/2023 ECHO S/P coronary artery stent placement (10/2018) NATY prox mid LAD Ischemic cardiomyopathy Insomnia Biventricular ICD (implantable cardioverter-defibrillator) in place (04/30/20) [employer] implanted 04/30/2020. 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 right SFA, and SHEET IRONWORKER of left SFA and common femoral artery Spondylosis (Acute) GERD (gastroesophageal reflux disease) Hypothyroidism Left bundle branch block Bilateral carotid artery stenosis H/o bilateral CEAs in 2016 Per 07/2021 vascular note- carotid ultrasound from office visit showed patent right CEA with velocities suggesting 50-59% stenosis restenosis Patent left CEA with velocities suggesting 99% restenosis - had re-do of left CEA 09/27/21 Medical History Acute exacerbation of CHF (congestive heart failure) Orthostasis Acute kidney injury superimposed on chronic kidney disease Non-ST elevation [place] (NSTEMI) Nausea and vomiting after administration of anesthetic agent History of CVA (cerebrovascular accident) Subclavian artery stenosis Rheumatoid arthritis Chronic kidney disease Diabetes mellitus, type 2 SOB (shortness of breath) on exertion DVT (deep venous thrombosis) Aortic stenosis, severe NSTEMI (non-ST elevated myocardial infarction) Surgical History S/P right knee arthroscopy (04/2024) S/P AV hiren ablation (06/30/22) H/O heart artery stent H/O colonoscopy History of left-sided carotid endarterectomy (09/27/21) Status post partial mastectomy of right breast (09/17/21) History of cardiac cath S/P coronary artery stent placement (10/2017) S/P carotid endarterectomy S/P thoracentesis (03/2020) S/P angioplasty (02/03/21) History of oophorectomy History of hysterectomy History of cholecystectomy H/O: section History of cataract surgery History of appendectomy Family History Daughter Coronary heart disease Diabetes Mother Diabetes Family history of hypercholesterolemia Myocardial infarction Hypertension Stroke Brother Colorectal cancer Father Accident Brother Diabetes Family/Other Myocardial infarction Son Coronary heart disease Hypertension Other Pacemaker Denies family history of Ovarian cancer Prostate cancer Breast cancer Social History Smoking Status: Never smoker Second Hand Exposure: No; Do You Dip or Chew Tobacco: No; Hx Alcohol Use: No Hx Substance Use: No Preferred Language: Zimbabwean Communication Ability: Effective Visual Impairment: No Limitations Hearing Ability: Hard of Hearing Section Chief Required: No Beliefs That Will Affect Care: None marital status: / marital status details: passed 2000 Current Living Situation: Alone current occupational status: retired 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 NAD. Cooperative. HEENT: Atraumatic, normocephalic. Hearing grossly intact Pulm: diminished, with bibasilar rales symmetrical chest rise. No increased work of breathing. No respiratory distress. Cardiac: RRR, +sm. Radial pulses intact and symmetrical. Abdominal: Nontender, nondistended, soft. BS present. Extremities: Left lateral malleolus with grade 3 ulcer. No surrounding erythema/discharge suggestive of infection. Multiple bruises on the arms bilaterally, and on the medial left knee. Results & Data Results & Data Vital Signs (Past 12 Hours) Vital Signs Temp Pulse Resp BP Pulse Ox O2 Del Method 06/27/24 12:16 70 06/27/24 11:22 36.8 C 77 20 164/87 H 93 Room Air PG Care Time/CCT Total # of Minutes Spent Total Time Spent with Patient: Total time spent is greater than 50% in coordination of care (as documented) at patient's floor/unit and/or counseling patient: Coding Level of Care Code 87594 INT INP/OBS CARE 3/75MIN Diagnoses Acute exacerbation of CHF (congestive heart failure) I50.9 Heart failure type: unspecified Heart failure with mildly reduced ejection fraction (HFmrEF) I50.22 Controlled type 2 diabetes mellitus with diabetic nephropathy, with long-term current use of insulin E11.21; Z79.4 Diabetes mellitus mcfp insulin use: with nut former use Diabetes mellitus complication status: with kidney complications Diabetes mellitus complication detail: with nephropathy CKD (chronic kidney disease) stage 4, GFR 15-29 ml/min N18.4 (1) Acute exacerbation of CHF (congestive heart failure) Heart failure type: unspecified Qualified Code(s): I50.9 - Heart failure, unspecified (3) DM II (diabetes mellitus, type II), controlled Diabetes mellitus nut former insulin use: with nut former use Diabetes mellitus complication status: with kidney complications Diabetes mellitus complication detail: with nephropathy Qualified Code(s): E11.21 - Type 2 diabetes mellitus with diabetic nephropathy; Z79.4 - intermediate (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
[2024-06-27] MEDS: BUMETANIDE 2 MG in SYRINGE 0 ML IV ONE (12:58)
[2024-06-27] MEDS ORDERED: GLUCOSE 10 TAB/TUBE PO PRN (13:10)
[2024-06-27] MEDS ORDERED: GLUCAGON FOR INJ 1 MG VIAL SQ PRN (13:10)
[2024-06-27] MEDS ORDERED: GLUCOSE 40% GEL 15 GM TUBE PO PRN (13:10)
[2024-06-27] MEDS ORDERED: PHARMACY GLYCEMIC MGMT CONSULT PRN (13:10)
[2024-06-27] MEDS ORDERED: CARBOHYDRATES FOR HYPOGLYCEMIA PO PRN (13:10)
[2024-06-27] MEDS ORDERED: DEXTROSE 50% 50 ML SYRINGE IV PRN (13:10)
--- NOTE | 2024-06-27 14:46 | Electrocardiogram Report ---
Test Reason : Blood Pressure : */* mmHG Vent. Rate : 70 BPM Atrial Rate : 98 BPM P-R Int : * ms QRS Dur : 162 ms QT Int : 480 ms P-R-T Axes : * 6 159 degrees QTcB Int : 518 ms Ventricular-paced rhythm Biventricular pacemaker detected Abnormal ECG When compared with ECG of 02-Apr-2024 11:22, (unconfirmed) No significant change was found Confirmed by Boby Benitez ([id number]) on 06/27/2024 2:46:14 PM Referred By: Confirmed By: Boby Benitez
--- NOTE | 2024-06-27 14:48 | Pharmacy Report ---
Pharmacy Glycemic Short Note 2 - Date of Service June 27, 2024 - Glycemic Short BSG Results (Last 24 hours): 06/27/24 11:35 Glucose 287 H OUTPATIENT ANTIDIABETIC REGIMEN: * Novolog Mix 70/30 15-30 units SC BID * Lantus 10 units SC BID HbA1c = 7% on 04/26/24 ASSESSMENT: * 83 y/o F admitted for CHF exacerbation and SOB. Patient with history of diabetes well controlled on basal and bolus insulins at home. * On admission blood sugar was elevated at 287 mg/dl. * Patient has had multiple admissions this year. Insulin was dosed conservatively with total basal dose of 10 units per day. * Will continue with home basal dose on this admission and loose Novolog parameters based off of her total insulin dose at home that is between 50-80 units. * Overnight checks added. PLAN FOR INPATIENT GLYCEMIC CONTROL: * Basal insulin * Lantus 10 units SQ BID * Bolus insulin * NovoLog per scale ACHS or Q6hrs while NPO * Goal Range: Low 110 mg/dL - High 150 mg/dL * Correction Factor: 30 mg/dL/unit * Nutritional / Prandial insulin per carb ratio of 1 unit per 15 grams CHO consumed
--- NOTE | 2024-06-27 15:45 | XCELERA ---
[id number]
[2024-06-27] MEDS ORDERED: traZODone HCL 50 MG TAB PO PRN (16:12)
[2024-06-27] MEDS: INSULIN ASPART PER UNIT CHARGE SC SCH (17:00)
[2024-06-27] MEDS: BUMETANIDE 2 MG in SYRINGE 0 ML IV SCH (17:01)
[2024-06-27] MEDS: carvediloL 3.125 MG TAB PO SCH (18:07)
[2024-06-27] MEDS: GABAPENTIN 300 MG CAP PO SCH (18:07)
[2024-06-27] MEDS: APIXABAN 2.5 MG TAB PO SCH (20:19)
[2024-06-27] MEDS: RANOLAZINE 500 MG ER TAB PO SCH (20:20)
[2024-06-27] MEDS: PANTOprazole 40 MG TAB PO SCH (20:20)
[2024-06-27] MEDS: TICAGRELOR 90 MG TAB PO SCH (20:21)
[2024-06-27] MEDS: LANTUS PER UNIT CHARGE SQ SCH (20:22)
[2024-06-27] MEDS: POTASSIUM CHLORIDE CRTAB 20 MEQ TABCR PO SCH (20:24)
[2024-06-28] MEDS: INSULIN ASPART PER UNIT CHARGE SC SCH (00:12)
[2024-06-28 03:54] LABS: Basophils # (auto) 0.02 K/uL (0.00-0.20); Basophils % (auto) 0.2 %; Eosinophils % (auto) 2.5 %; Hematocrit (blood only) 34.5 % (37.0-47.0); Hemoglobin 10.9 g/dl (12.0-16.0); Immature Granulocytes # (auto) 0.03 K/uL (0.01-0.20); Immature Granulocytes % (auto) 0.4 %; Lymphocytes # (auto) 1.95 K/uL (1.20-3.40); Lymphocytes % (auto) 24.3 %; Mean Corpuscular Hemoglobin 30.3 pg (25.0-34.0); Mean Corpuscular Hgb Conc 31.6 g/dL (32.0-36.0); Mean Corpuscular Volume 95.8 fL (80.0-100.0); Mean Platelet Volume 11.1 fL (9.4-12.4); Monocytes # (auto) 1.06 K/uL (0.11-0.59); Monocytes % (auto) 13.2 %; Neutrophils # (auto) 4.78 K/uL (1.40-6.50); Neutrophils % (auto) 59.4 %; Platelet Count 232 K/uL (130-400); RDW Coefficient of Variation 16.1 % (11.5-14.5); RDW Standard Deviation 57.1 fL (36.4-46.3); White Blood Count 8.04 K/ul (4.8-10.8)
[2024-06-28 04:00] LABS: BUN Creatinine Ratio 26.5 (10-20); Calcium 8.9 mg/dl (8.6-10.3); Creatinine Clr Calc Pharmacy 24.2 ml/min; Est GFR (African American) 28.5 ml/min; Est GFR (Non-African American) 24.6 ml/min
[2024-06-28] MEDS: LEVOTHYROXINE SODIUM 75 MCG TABLET PO SCH (05:42)
[2024-06-28] MEDS: CHOLECALCIFEROL 25 MCG (1000 UNITS) TAB PO SCH (08:10)
[2024-06-28] MEDS: SPIRONOLACTONE 25 MG TAB PO SCH (08:10)
[2024-06-28] MEDS: TOCOPHERYL, DL-ALPHA 400 UNITS 180 MG CAP PO SCH (08:10)
[2024-06-28] MEDS: SERTRALINE HCL 100 MG TABLET PO SCH (08:11)
--- NOTE | 2024-06-28 12:28 | Cardiology Consultation ---
Date of Consultation June 28, 2024 Assessment & Plan (1) Heart failure with mildly reduced ejection fraction (HFmrEF): -Improving with intravenous Bumex. -Would continue intravenous diuretics until her BUN and creatinine increase. -Continue carvedilol and spironolactone. -She is intolerant to ACEIs, ARBs, and Entresto. -Consider thoracentesis. (2) Ischemic cardiomyopathy: -LVEF 40 to 45%. -Continue outpatient medical regimen. (3) CAD (coronary artery disease): -Extensive history as outlined above. (4) S/P TAVR (transcatheter aortic valve replacement): -Placed in October 2019. -Well-seated with normal gradients on current echocardiogram. (5) Biventricular ICD (implantable cardioverter-defibrillator) in place: -Normal function via [facility], May 23, 2024. History of Present Illness Attending Physician: Tesfaye Rodriguez MD History of Present Illness Mrs. Barry is an 83-year-old female admitted yesterday in decompensated CHF. This consultation was ordered to assist in her cardiac management. Of note, the patient typically follows with Latrice Mcmanus PA-C and Dr. Irizarry in the outpatient setting. The patient's recent history began on June 25 when she underwent an orthopedic procedure at [facility]. She apparently developed chest discomfort after the event and was transferred to [facility] for a cardiac catheterization. She apparently received a NATY to her RCA. High-sensitivity troponin was elevated at 37,112. The patient was seen yesterday in the CHF clinic by Latrice Mcmanus PA-C. She was transferred to our emergency room because of hypervolemia. The patient has a longstanding history of coronary artery disease having numerous stents placed over the years. She also carries a history of chronic, combined CHF. An echocardiogram performed yesterday noted mild left ventricular dysfunction with ejection fraction of 40 to 45%. There was mild global hypokinesis. Currently, patient is resting comfortably in bed without complaints. Past medical and surgical history 1. Coronary artery disease 2. Mid LAD DESJanuary 2017 3. Proximal LAD DESJanuary 2018 4. Mid LCx DESDecember 2018 5. Ostial LCx DESMarch 2019 6. RCA DESSeptember 2023 7. Ischemic [id number] to 45%, June 2024 8. TAVRJanuary 2019 9. Chronic combined CHF 10. LBBB 11. Biventricular ICDJuly 2019 12. Hypertension 13. Hypercholesterolemia 14. Paroxysmal atrial fibrillation 15. Pulmonary hypertension 16. Cerebrovascular disease 17. Peripheral vascular disease 18. Diabetes mellitus 19. Chronic renal failure 20. Rheumatoid arthritis 21. Right breast carcinomaDecember 2020 22. TIADecember 2020 23. DJD 24. Depression 25. COPD 26. Anemia of chronic disease 27. GERD 28. Hypothyroidism 29. Bilateral carotid [id number] 30. Left carotid endarterectomy, redoDecember 2020 31. Right SFA, left SFA/common femoral stents 32. LIGIA/BSO 33. Cholecystectomy 34. Appendectomy 35. Intraocular lens implants Social history , lives alone No tobacco or alcohol Family history Noncontributory Review of systems A 10 point review of system was undertaken and negative except that scribed above. Allergies Allergy/AdvReac Type Severity Reaction Status Date / Time adhesive Allergy Intermediate REDNESS Verified 06/27/24 10:21 AND IRRITATION FROM PAIN PATCH, TAPE latex Allergy Intermediate ALLERGIC Verified 06/27/24 10:21 TO LATEX TAPE/RASH/ITCHING morphine Allergy Intermediate swelling Verified 06/27/24 10:21 nausea vomiting olmesartan Allergy Unknown UNKNOWN Verified 06/27/24 10:21 benzonatate AdvReac Intermediate confusion Verified 06/27/24 10:21 [From Giovanni Brennan] dulaglutide [From Trulicity] AdvReac Intermediate AFFECTS Verified 06/27/24 10:21 MUSCLES exenatide [From Byetta] AdvReac Intermediate Diarrhea Verified 06/27/24 10:21 ezetimibe AdvReac Intermediate MUSCLE Verified 06/27/24 10:21 ACHES glipizide AdvReac Intermediate Diarrhea Verified 06/27/24 10:21 glyburide AdvReac Intermediate Diarrhea Verified 06/27/24 10:21 lisinopril AdvReac Intermediate LIGHTHEADED Verified 06/27/24 10:21 AND DIZZY losartan AdvReac Intermediate dizziness Verified 06/27/24 10:21 metformin AdvReac Intermediate Diarrhea Verified 06/27/24 10:21 pioglitazone AdvReac Intermediate DIARRHEA Verified 06/27/24 10:21 NAUSEA sitagliptin [From Januvia] AdvReac Intermediate Diarrhea Verified 06/27/24 10:21 Zseqemw-JEX-[id number] Reductase AdvReac Intermediate myalgias Verified 06/27/24 10:21 Inhibitor and [Pijsrlw-Xtg-Une Reductase weakness Inhibitor] aspirin AdvReac Mild GI SYMPTOMS Verified 06/27/24 10:21 Home Medications Medication Instructions Recorded Confirmed Type vitamin E 268 mg (400 unit) capsule 400 unit PO QAM 03/29/20 06/27/24 History cholecalciferol (vitamin D3) 25 1,000 unit PO QAM 05/17/21 06/27/24 History mcg (1,000 unit) capsule trazodone 50 mg tablet 50 mg PO HS PRN insomnia #90 tabs 06/23/22 06/27/24 Rx polyethylene glycol 3350 17 17 g PO TID #119 grams 12/23/22 06/27/24 Rx gram/dose oral powder (Miralax) sennosides 8.6 mg capsule (senna) 8.6 mg PO DAILY PRN constipation 12/23/22 06/27/24 Rx #10 caps flash glucose scanning reader #6 ea 07/24/23 06/27/24 Rx (FreeStyle Rossy 14 Day Lydia) apixaban 2.5 mg tablet (Eliquis) 2.5 mg PO BID #180 tabs 10/30/23 06/27/24 Rx ranolazine 500 mg tablet,extended 500 mg PO BID #180 tabs 11/14/23 06/27/24 Rx release,12 hr magnesium oxide 400 mg (241.3 mg 400 mg PO QPM #30 tabs 01/22/24 06/27/24 Rx magnesium) tablet insulin syringe-needle U-100 0.3 #100 ea 01/23/24 06/27/24 Rx mL 31 gauge x 5/16" ticagrelor 60 mg tablet (Brilinta) 60 mg PO BID #90 tabs 01/26/24 06/27/24 Rx pantoprazole 40 mg tablet,delayed 40 mg PO BID #180 tabs 01/30/24 06/27/24 Rx release (Protonix) gabapentin 300 mg capsule 300 mg PO TID 01/31/24 06/27/24 History insulin aspar prt-insulin aspart 15 - 30 unit (0.15 - 0.3 mL) 02/29/24 06/27/24 Rx 100 unit/mL (70-30) subcutaneous subcut AMPM #30 mL soln (Novolog Mix 70-30 U-100 Insuln) bumetanide 2 mg tablet 2 mg PO DAILY PRN fluid overload 03/18/24 06/27/24 Rx #200 tabs spironolactone 50 mg tablet 50 mg PO DAILY #90 tabs 04/29/24 06/27/24 Rx flash glucose sensor (FreeStyle #1 ea 05/09/24 06/27/24 Rx Rossy 14 Day Sensor kit) calcitriol 0.25 mcg capsule 0.25 mcg PO 3XWK #12 caps 05/20/24 06/27/24 Rx (Rocaltrol) levothyroxine 75 mcg tablet 75 mcg PO QAM #90 tabs 05/31/24 06/27/24 Rx ondansetron HCl 8 mg tablet 8 mg PO Q8H PRN nausea and 05/31/24 06/27/24 Rx vomiting #30 tabs potassium chloride 20 mEq 40 meq (2 x 20 mEq) PO DAILY #2 06/11/24 06/27/24 Rx tablet,extended release(part/cryst) tabs sertraline 100 mg tablet 100 mg PO DAILY #90 tabs 06/12/24 06/27/24 Rx carvedilol 12.5 mg tablet 12.5 mg PO BID 06/27/24 06/27/24 History Patient History Medical History Acute exacerbation of CHF (congestive heart failure) Orthostasis Acute kidney injury superimposed on chronic kidney disease Non-ST elevation ME (NSTEMI) Nausea and vomiting after administration of anesthetic agent severe PONV s/p Left carotid surgery 09/27/21 at [facility] History of CVA (cerebrovascular accident) Had RUE weakness and numbness after 09/17/21 breast surgery- CT scan of head negative; unable to do MRI due to ICD Per PCP records 10/22/21= "[place] her post op RUE sx related to possible small stroke/TIA" Subclavian artery stenosis Rheumatoid arthritis No medications Followed with rheum in the past- no recent issues Chronic kidney disease STAGE IV-F/U DR SALINAS Diabetes mellitus, type 2 Glucose fluctuates SOB (shortness of breath) on exertion DVT (deep venous thrombosis) LOWER LEG 2019 Aortic stenosis, severe S/p TAVR 10/2019 NSTEMI (non-ST elevated myocardial infarction) Most recent 12/2019 (mild per patient) Surgical History S/P right knee arthroscopy (04/2024) S/P AV hiren ablation (06/30/22) H/O heart artery stent H/O colonoscopy History of left-sided carotid endarterectomy (09/27/21) redo L CEA, Dr Bateman Status post partial mastectomy of right breast (09/17/21) 09/17/21 - Done under [facility] with LMA #4. Atraumatic LMA insertion. Magnet placed secondary to pacemaker. Right Breast Partial Mastectomy with [place] Ride Attendant Localization, Right Axillary [place] Lymph Node Biopsy(Right) - Hua Acosta, DO History of cardiac cath TOTAL 6? STENTS- 2018 and 2019 S/P coronary artery stent placement (10/2017) NATY to mid LAD S/P carotid endarterectomy B/l 2016 S/P thoracentesis (03/2020) b/l d/t CHF S/P angioplasty (02/03/21) SKIP LOCATOR L SFA History of oophorectomy History of hysterectomy History of cholecystectomy H/O: section History of cataract surgery right and left History of appendectomy Family History Daughter Coronary heart disease Cardiac stent Diabetes Mother , 83yo Diabetes Family history of hypercholesterolemia Myocardial infarction Hypertension Stroke Brother Colorectal cancer 1/2 brother Father , Accident in war Brother Diabetes 1/2 brother;Complications of DM Family/Other Myocardial infarction 1/2 sister Son Coronary heart disease Cardiac stent Hypertension Other Pacemaker Denies family history of Ovarian cancer Prostate cancer Breast cancer Social History Smoking Status: Never smoker Second Hand Exposure: No; Do You Dip or Chew Tobacco: No; Hx Alcohol Use: No Hx Substance Use: No Preferred Language: Irish Communication Ability: Effective Visual Impairment: No Limitations Hearing Ability: Hard of Hearing Currency Counter Required: No Beliefs That Will Affect Care: None marital status: / marital status details: passed 2000 Current Living Situation: Alone current occupational status: retired 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 HEENT exam is negative. Neck reveals normal carotid upstrokes without bruits. Jugular venous pressure is difficult to assess. There is no thyromegaly. Cardiovascular exam reveals a regular rhythm with distant heart sounds. No obvious murmurs. Lungs noted decreased breath sounds at the bases. Abdomen is soft without bruits. Extremities reveal intact radial artery pulses bilaterally. There is no peripheral edema. Results & Data Vital Signs (Past 12 Hours) Vital Signs Temp Pulse Pulse Resp BP Pulse Ox O2 Del Method 06/28/24 11:25 36.4 C L 70 16 130/81 92 Room Air 06/28/24 09:24 Room Air 06/28/24 07:31 36.5 C 70 16 140/82 91 Room Air 06/28/24 07:16 70 06/28/24 03:17 36.5 C 18 100/67 97 Room Air Laboratory Results CBC notes hemoglobin of 10.9, hematocrit 34.5, white count 8.0, and a platelet count of 232,000. Electrolytes noted sodium of 137, potassium 4.0, chloride 97, bicarb 34, BUN 49, creatinine 1.85, and a glucose of 96. High-sensitivity troponin currently 4830. BNP is elevated at 1261. Diagnostic Findings Echocardiogram notes mild left ventricular systolic function with an ejection fraction of 40 to 45%. There is mild global hypokinesis. The TAVR is functioning properly. There is mild LVH along with moderate mitral digitation. EKG notes ventricular pacing and evidence of a biventricular device. Chest x- ray notes interstitial edema along with bilateral pleural effusions. PG Care Time/CCT Total # of Minutes Spent Total Time Spent with Patient: Total time spent is greater than 50% in coordination of care (as documented) at patient's floor/unit and/or counseling patient: Coding Level of Care Code 51933 INT INP/OBS CARE 3/75MIN Diagnoses Heart failure with mildly reduced ejection fraction (HFmrEF) I50.22 Ischemic cardiomyopathy I25.5 CAD (coronary artery disease) I25.10 S/P TAVR (transcatheter aortic valve replacement) Z95.2 Biventricular ICD (implantable cardioverter-defibrillator) in place Z95.810
--- NOTE | 2024-06-28 12:55 | Pharmacy Report ---
Pharmacy Glycemic Short Note 2 - Date of Service June 28, 2024 - Glycemic Short BSG Results (Last 24 hours): 06/27/24 06/27/24 06/27/24 16:15 20:00 23:58 Glucose POC Glucose 232 H 202 H 156 H 06/28/24 06/28/24 06/28/24 03:25 07:30 11:26 Glucose 96 POC Glucose 131 H 158 H OUTPATIENT ANTIDIABETIC REGIMEN: * Novolog Mix 70/30 15-30 units SC BID HbA1c = 7% on 04/26/24 ASSESSMENT: 06/28/24: * Blood sugars trended down nicely overnight, fasting blood sugar of 131 mg/dL * Originally ordered Lantus BID, but given improvement will change this to just once daily for now * Carb ratio tightened last evening and will continue 06/27/24: * 83 y/o F admitted for CHF exacerbation and SOB. Patient with history of diabetes well controlled on basal and bolus insulins at home. * On admission blood sugar was elevated at 287 mg/dl. * Patient has had multiple admissions this year. Insulin was dosed conservatively with total basal dose of 10 units per day. * Will continue with home basal dose on this admission and loose Novolog parameters based off of her total insulin dose at home that is between 50-80 units. * Overnight checks added. PLAN FOR INPATIENT GLYCEMIC CONTROL: * Basal insulin * Lantus 10 units SQ HS * Bolus insulin * NovoLog per scale ACHS or Q6hrs while NPO * Goal Range: Low 110 mg/dL - High 150 mg/dL * Correction Factor: 30 mg/dL/unit * Nutritional / Prandial insulin per carb ratio of 1 unit per 12 grams CHO consumed
[2024-06-28] MEDS: SENNA 8.6 MG TAB PO SCH (17:48)
[2024-06-28] MEDS: POLYETHYLENE (MIRALAX) 17 GM PACK PO SCH (17:49)
--- NOTE | 2024-06-28 19:19 | Hospitalist Progress Note ---
Date of Service June 28, 2024 Assessment & Plan (1) Acute on chronic systolic CHF (congestive heart failure): Plan: EF 40-45% recent NSTEMI with RCA occlusion s/p 2 NATY to the RCA lesion prior Left main stent is patent other prior stents with moderate stenoses per the cath report from [facility] is on bumex 2mg IV BID - cont such has mod-large effusions - may need intervention if diuresis does not resolve them place Eliquis on hold starting tomorrow am could always bridge with heparin drip cont coreg BID cont aldactone cont Ranexa not HERMELINDO/ARB/Entresto candidate per records obtain labs in am (2) Heart failure with mildly reduced ejection fraction (HFmrEF): Plan: EF 40-45% (3) DM II (diabetes mellitus, type II), controlled: Plan: cont lantus cont novolog adjust as needed a1c 7% in April (4) CKD (chronic kidney disease) stage 4, GFR 15-29 ml/min: Plan: Baseline creatinine around 22.2 Baseline CrCl 20s BMP daily while here (5) Non-ST elevation ND (NSTEMI): Plan: hospitalized initially at [facility], then transferred to [facility] for cardiac cath by report her troponin on 06/25 was 37,112 troponins here continue to down-trend no new NSTEMI cont SATISH Clements she is statin intolerant (6) Elevated troponin: Plan: see #5 above (7) S/P TAVR (transcatheter aortic valve replacement): Plan: echo this admission with well-seated valve & normal gradients (8) Biventricular ICD (implantable cardioverter-defibrillator) in place: Plan: pacing on tele no recent discharges (9) Ischemic cardiomyopathy: Plan PT, OT evals while here right knee pain - add tramadol prn add tylenol 1000mg TID Admission and Anticipated Discharge Date Admission Date: June 27, 2024 Subjective patient sitting in bed eating her meal feels a little better with her breathing since admission denies any chest pain no ischemic symptoms since her cardiac cath that was done at [facility] earlier this week (2 RCA NATY placed) denies any abd pain her dyspnea is only after walking 10-20 feet no cough no other complaints Review of Systems Review of Systems: CV - edema improved GI - no abd pain or N/V pulm - no dyspnea at rest Physical Exam Physical Exam: gen - NAD, looks well neck - mild JVD present mouth - MMM heart - RRR, s1 s2 lungs - decreased BS bases, R>L; on right it is 1/2 way up back abd - soft NT ND BS+ ext - trace edema b/l, pulses 2+ b/l psych - a/o x 3 Results & Data Results & Data Vital Signs (Past 12 Hours) Vital Signs Temp Pulse Pulse Resp BP Pulse Ox O2 Del Method 06/28/24 15:43 36.4 C L 70 18 113/69 91 Room Air 06/28/24 14:49 70 06/28/24 11:25 36.4 C L 70 16 130/81 92 Room Air 06/28/24 09:24 Room Air 06/28/24 07:31 36.5 C 70 16 140/82 91 Room Air Laboratory Results Laboratory Results - last 24 hr 06/27/24 06/27/24 06/27/24 20:00 21:31 23:58 WBC RBC Hgb Hct MCV MCH MCHC RDW Std Deviation RDW Coeff of Manuela Plt Count MPV Immature Gran % (Auto) Neut % (Auto) Lymph % (Auto) [place] % (Auto) Eos % (Auto) Baso % (Auto) Neut # (Auto) Lymph # (Auto) [place] # (Auto) Eos # (Auto) Baso # (Auto) Immature Gran # (Auto) Sodium Potassium Chloride Carbon Dioxide Anion Gap BUN Creatinine Est Cr Clr Drug Dosing Est GFR ( Amer) Est GFR (Non-Af Amer) BUN/Creatinine Ratio Glucose POC Glucose 202 H 156 H Calcium Troponin I High Sens 4616.4 H* 06/28/24 06/28/24 06/28/24 03:25 07:30 09:31 WBC 8.04 RBC 3.60 L Hgb 10.9 L Hct 34.5 L MCV 95.8 MCH 30.3 MCHC 31.6 L RDW Std Deviation 57.1 H RDW Coeff of Manuela 16.1 H Plt Count 232 MPV 11.1 Immature Gran % (Auto) 0.4 Neut % (Auto) 59.4 Lymph % (Auto) 24.3 [place] % (Auto) 13.2 Eos % (Auto) 2.5 Baso % (Auto) 0.2 Neut # (Auto) 4.78 Lymph # (Auto) 1.95 [place] # (Auto) 1.06 H Eos # (Auto) 0.20 Baso # (Auto) 0.02 Immature Gran # (Auto) 0.03 Sodium 137 Potassium 4.0 Chloride 97 L Carbon Dioxide 34 H Anion Gap 6 BUN 49 H Creatinine 1.85 H Est Cr Clr Drug Dosing 24.2 Est GFR ( Amer) 28.5 Est GFR (Non-Af Amer) 24.6 BUN/Creatinine Ratio 26.5 H Glucose 96 POC Glucose 131 H Calcium 8.9 Troponin I High Sens 4830.4 H* 3894.4 H* 06/28/24 06/28/24 11:26 16:13 WBC RBC Hgb Hct MCV MCH MCHC RDW Std Deviation RDW Coeff of Manuela Plt Count MPV Immature Gran % (Auto) Neut % (Auto) Lymph % (Auto) [place] % (Auto) Eos % (Auto) Baso % (Auto) Neut # (Auto) Lymph # (Auto) [place] # (Auto) Eos # (Auto) Baso # (Auto) Immature Gran # (Auto) Sodium Potassium Chloride Carbon Dioxide Anion Gap BUN Creatinine Est Cr Clr Drug Dosing Est GFR ( Amer) Est GFR (Non-Af Amer) BUN/Creatinine Ratio Glucose POC Glucose 158 H 108 H Calcium Troponin I High Sens PG Care Time/CCT Total # of Minutes Spent Total Time Spent with Patient: Total time spent is greater than 50% in coordination of care (as documented) at patient's floor/unit and/or counseling patient: Coding Level of Care Code 31840 SUB INP/OBS CARE 2/35MIN Diagnoses Acute on chronic systolic CHF (congestive heart failure) I50.23 Heart failure with mildly reduced ejection fraction (HFmrEF) I50.22 Controlled type 2 diabetes mellitus with diabetic nephropathy, with long-term current use of insulin E11.21; Z79.4 Diabetes mellitus complication detail: with nephropathy Diabetes mellitus complication status: with kidney complications Diabetes mellitus terminal supervisor insulin use: with prison use CKD (chronic kidney disease) stage 4, GFR 15-29 ml/min N18.4 Non-ST elevation ND (NSTEMI) I21.4 Elevated troponin R77.8 S/P TAVR (transcatheter aortic valve replacement) Z95.2 Biventricular ICD (implantable cardioverter-defibrillator) in place Z95.810 Ischemic cardiomyopathy I25.5 (3) DM II (diabetes mellitus, type II), controlled Diabetes mellitus complication detail: with nephropathy Diabetes mellitus complication status: with kidney complications Diabetes mellitus terminal supervisor insulin use: with prison use Qualified Code(s): E11.21 - Type 2 diabetes mellitus with diabetic nephropathy; Z79.4 - residential (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
[2024-06-28] MEDS: LANTUS PER UNIT CHARGE SQ SCH (20:46)
[2024-06-28] MEDS: ACETAMINOPHEN 325 MG TAB PO PRN (22:49)
[2024-06-29] MEDS ORDERED: traMADol HCL 50 MG TABLET PO PRN (08:27)
[2024-06-29] MEDS: ACETAMINOPHEN 325 MG TAB PO SCH (08:39)
[2024-06-29 08:41] LABS: BUN Creatinine Ratio 23.6 (10-20); Calcium 9.2 mg/dl (8.6-10.3); Creatinine Clr Calc Pharmacy 22.5 ml/min; Est GFR (African American) 26.1 ml/min; Est GFR (Non-African American) 22.5 ml/min; Magnesium 2.1 mg/dl (1.7-2.4)
[2024-06-29] MEDS ORDERED: DICLOFENAC SOD 1% GEL 100 GM TUBE EXT SCH (09:00)
--- NOTE | 2024-06-29 19:28 | Hospitalist Progress Note ---
Date of Service June 29, 2024 Assessment & Plan (1) Acute on chronic systolic CHF (congestive heart failure): Plan: EF 40-45% recent NSTEMI with RCA occlusion s/p 2 NATY to the RCA lesion prior Left main stent is patent other prior stents with moderate stenoses per the cath report from [facility] is on bumex 2mg IV BID - despite such she doesn't feel any different from a pulmonary perspective cont coreg BID cont aldactone cont Ranexa not HERMELINDO/ARB/Entresto candidate per records suspect that the mod-large pleural effusion on the right is the largest culprit in her dyspnea I corresponded with Dr Baxter from pulmonary who can consult tomorrow for this I placed Eliquis on hold in the event she needed thoracentesis last dose of Eliquis - PM of 06/28 cannot stop Brilinta due to recent stent placement at [facility] will repeat a cxr in am place bumex on hold after this evening's dose - recheck BMP in am for stability before resuming bumex (2) Heart failure with mildly reduced ejection fraction (HFmrEF): Plan: EF 40-45% (3) DM II (diabetes mellitus, type II), controlled: Plan: cont lantus cont novolog adjust as needed a1c 7% in April (4) CKD (chronic kidney disease) stage 4, GFR 15-29 ml/min: Plan: Baseline creatinine around 22.2 Baseline CrCl 20s BMP daily while here Cr today 1.99 (5) Non-ST elevation [place] (NSTEMI): Plan: hospitalized initially at [facility], then transferred to [facility] for cardiac cath by report her troponin on 06/25 was 37,112 troponins here continue to down-trend no new NSTEMI cont Brilinta, BB she is statin intolerant (6) Elevated troponin: Plan: see #5 above (7) S/P TAVR (transcatheter aortic valve replacement): Plan: echo this admission with well-seated valve & normal gradients (8) Biventricular ICD (implantable cardioverter-defibrillator) in place: Plan: pacing on tele no recent discharges (9) Ischemic cardiomyopathy: Plan PT, OT evals right knee pain - tramadol prn + tylenol 1000mg TID Admission and Anticipated Discharge Date Admission Date: June 27, 2024 Subjective patient reports ongoing dyspnea especially with activity but she also notices the dyspnea if she is talking excessively no chest pain eating well her dyspnea is "about the same" as when she first got admitted to [facility] tele overnight - pacing Review of Systems Review of Systems: cv - no chest pain, mild orthopnea, no edema pulm - no cough, just dyspnea GI - no abd pain; +stools Physical Exam Physical Exam: gen - NAD, pleasant neck - mild JVD present mouth - MMM heart - RRR, s1 s2, 1/6 systolic murmur LSB lungs - decreased BS bases, R>L; on right it is 1/2 way up back - no change; dullness to percussion right base abd - soft NT ND BS+ ext - no edema b/l, pulses 2+ b/l psych - a/o x 3 Results & Data Results & Data Vital Signs (Past 12 Hours) Vital Signs Temp Pulse Pulse Resp BP Pulse Ox O2 Del Method 06/29/24 15:44 36.7 C 70 18 134/75 91 Room Air 06/29/24 14:34 70 06/29/24 11:33 36.4 C L 73 18 141/68 H 92 Room Air 06/29/24 11:02 Room Air 06/29/24 07:32 36.5 C 70 18 150/84 H 91 Room Air Laboratory Results Laboratory Results - last 24 hr 06/28/24 06/29/24 06/29/24 20:29 07:32 07:53 Sodium 136 Potassium 5.0 D Chloride 96 L Carbon Dioxide 34 H Anion Gap 6 BUN 47 H Creatinine 1.99 H Est Cr Clr Drug Dosing 22.5 Est GFR ( Amer) 26.1 Est GFR (Non-Af Amer) 22.5 BUN/Creatinine Ratio 23.6 H Glucose 138 H POC Glucose 164 H 137 H Calcium 9.2 Magnesium 2.1 06/29/24 06/29/24 11:31 16:24 Sodium Potassium Chloride Carbon Dioxide Anion Gap BUN Creatinine Est Cr Clr Drug Dosing Est GFR ( Amer) Est GFR (Non-Af Amer) BUN/Creatinine Ratio Glucose POC Glucose 129 H 151 H Calcium Magnesium PG Care Time/CCT Total # of Minutes Spent Total Time Spent with Patient: Total time spent is greater than 50% in coordination of care (as documented) at patient's floor/unit and/or counseling patient: Coding Level of Care Code 99556 SUB INP/OBS CARE MIN Diagnoses Acute on chronic systolic CHF (congestive heart failure) I50.23 Heart failure with mildly reduced ejection fraction (HFmrEF) I50.22 Controlled type 2 diabetes mellitus with diabetic nephropathy, with long-term current use of insulin E11.21; Z79.4 Diabetes mellitus complication detail: with nephropathy Diabetes mellitus complication status: with kidney complications 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 CKD (chronic kidney disease) stage 4, GFR 15-29 ml/min N18.4 Non-ST elevation [place] (NSTEMI) I21.4 Elevated troponin R77.8 S/P TAVR (transcatheter aortic valve replacement) Z95.2 Biventricular ICD (implantable cardioverter-defibrillator) in place Z95.810 Ischemic cardiomyopathy I25.5 (3) DM II (diabetes mellitus, type II), controlled Diabetes mellitus complication detail: with nephropathy Diabetes mellitus complication status: with kidney complications Diabetes mellitus longterm insulin use: with longterm use Qualified Code(s): E11.21 - Type 2 diabetes mellitus with diabetic nephropathy; Z79.4 - longterm (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
[2024-06-30 07:47] LABS: BUN Creatinine Ratio 24.2 (10-20); Creatinine Clr Calc Pharmacy 22.4 ml/min; Est GFR (African American) 26.9 ml/min; Est GFR (Non-African American) 23.2 ml/min; Potassium 4.6 mmol/L (3.5-5.1)
[2024-06-30] MEDS: CALCITRIOL 0.25 MCG CAPSULE PO SCH (08:02)
--- NOTE | 2024-06-30 08:46 | Pulmonary Consultation ---
Date of Consultation June 30, 2024 Assessment & Plan (1) Acute on chronic systolic CHF (congestive heart failure): (2) Pulmonary hypertension: (3) Ischemic cardiomyopathy: (4) Pleural effusion: Plan 2D echo 06/27/2024: EF 40-45%, mild global hypokinesis, RV normal in size and function --Bilateral pleural effusion Secondary to systolic plus diastolic CHF On top of CKD Patient had multiple thoracentesis in the past back in 2019, they were transudative etiology was mostly cardiac, Cytology was negative for both. Etiology is also most likely coming from cardiac with bilateral pleural effusion --Restrictive lung disease Moderate restriction appreciated on PFTs done 04/22/2020 Patient has no kyphosis or skeletal deformity which might be causing it Unfortunately patient was not able to do DLCO Patient did have moderate pleural effusion when she had the PFTs done. That could be one of the reason of restriction. --Pulmonary hypertension Type II --Systolic and diastolic CHF Recent AICD placement on 04/30/2020 Treatment as per cardiology --Coronary artery disease S/p cardiac stent in RCA 06/25/2024 --A-fib On Eliquis Plan: Patient does have large right and small left-sided pleural effusion and etiology is most likely CHF Last dose of Eliquis was evening of 06/28/2024. She will be off of Eliquis for 48 hours as of tomorrow. Recommend to continue with diuresis. We cannot stop the Brilinta given the stent placement. If there is no significant improvement in the pleural effusion then thoracentesis could be pursued. Patient is agreeable to it Plan was discussed with primary team Please note the above document was generated using voice recognition software. It may contain grammatical, syntax or spelling errors.Any formal questions or concerns about the content, text or information contained within the body of this dictation should be directly addressed to the provider for clarification. History of Present Illness Attending Physician: Tesfaye Rodriguez MD History of Present Illness 83-year-old female present to the hospital with complaints of shortness of breath Past medical history: Ischemic cardiomyopathy with EF 20-25% and grade 3 diastolic s/p AICD 04/2020, severe aortic stenosis status post TAVR, history of sick sinus syndrome status post biventricular pacemaker, A. fib on apixaban, GERD, recent RCA stent on 06/25/2024 The patient was last seen by me in the office 08/28/2020 At the time of examination patient was saturating 93% on room air with heart rate in the mid to high 60s. She was not in respiratory distress She stated that her breathing has been progressively getting worse. She has been compliant with her diuretics at home. Her breathing is worse when she is trying to do even minimal activities like going to the chair from the bed. When she does get short of breath it is huffing and puffing. Denies any chest pain, no chest tightness, no wheezing, no diaphoresis at that time. Patient has history of multiple thoracentesis in the past Patient denies any personal or family history of asthma. Social Hx: Non smoker, no etoh, no illicit drug use. 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 No exposure to any fumes or chemicals Pets: None. No poultry or birds nearby. Allergies Allergy/AdvReac Type Severity Reaction Status Date / Time adhesive Allergy Intermediate REDNESS Verified 06/27/24 10:21 AND IRRITATION FROM PAIN PATCH, TAPE latex Allergy Intermediate ALLERGIC Verified 06/27/24 10:21 TO LATEX TAPE/RASH/ITCHING morphine Allergy Intermediate swelling Verified 06/27/24 10:21 nausea vomiting olmesartan Allergy Unknown UNKNOWN Verified 06/27/24 10:21 benzonatate AdvReac Intermediate confusion Verified 06/27/24 10:21 [From Tessalon Perlluis fernando] dulaglutide [From Trulicity] AdvReac Intermediate AFFECTS Verified 06/27/24 10:21 MUSCLES exenatide [From Byetta] AdvReac Intermediate Diarrhea Verified 06/27/24 10:21 ezetimibe AdvReac Intermediate MUSCLE Verified 06/27/24 10:21 ACHES glipizide AdvReac Intermediate Diarrhea Verified 06/27/24 10:21 glyburide AdvReac Intermediate Diarrhea Verified 06/27/24 10:21 lisinopril AdvReac Intermediate LIGHTHEADED Verified 06/27/24 10:21 AND DIZZY losartan AdvReac Intermediate dizziness Verified 06/27/24 10:21 metformin AdvReac Intermediate Diarrhea Verified 06/27/24 10:21 pioglitazone AdvReac Intermediate DIARRHEA Verified 06/27/24 10:21 NAUSEA sitagliptin [From Januvia] AdvReac Intermediate Diarrhea Verified 06/27/24 10:21 Siadatj-HXE-EaA Reductase AdvReac Intermediate myalgias Verified 06/27/24 10:21 Inhibitor and [Cladufl-Cty-Avo Reductase weakness Inhibitor] aspirin AdvReac Mild GI SYMPTOMS Verified 06/27/24 10:21 Home Medications Medication Instructions Recorded Confirmed Type vitamin E 268 mg (400 unit) capsule 400 unit PO QAM 03/29/20 06/27/24 History cholecalciferol (vitamin D3) 25 1,000 unit PO QAM 05/17/21 06/27/24 History mcg (1,000 unit) capsule trazodone 50 mg tablet 50 mg PO HS PRN insomnia #90 tabs 06/23/22 06/27/24 Rx polyethylene glycol 3350 17 17 g PO TID #119 grams 12/23/22 06/27/24 Rx gram/dose oral powder (Miralax) sennosides 8.6 mg capsule (senna) 8.6 mg PO DAILY PRN constipation 12/23/22 06/27/24 Rx #10 caps flash glucose scanning reader #6 ea 07/24/23 06/27/24 Rx (FreeStyle Rossy 14 Day [place]) apixaban 2.5 mg tablet (Eliquis) 2.5 mg PO BID #180 tabs 10/30/23 06/27/24 Rx ranolazine 500 mg tablet,extended 500 mg PO BID #180 tabs 11/14/23 06/27/24 Rx release,12 hr magnesium oxide 400 mg (241.3 mg 400 mg PO QPM #30 tabs 01/22/24 06/27/24 Rx magnesium) tablet insulin syringe-needle U-100 0.3 #100 ea 01/23/24 06/27/24 Rx mL 31 gauge x 5/16" ticagrelor 60 mg tablet (Brilinta) 60 mg PO BID #90 tabs 01/26/24 06/27/24 Rx pantoprazole 40 mg tablet,delayed 40 mg PO BID #180 tabs 01/30/24 06/27/24 Rx release (Protonix) gabapentin 300 mg capsule 300 mg PO TID 01/31/24 06/27/24 History insulin aspar prt-insulin aspart 15 - 30 unit (0.15 - 0.3 mL) 02/29/24 06/27/24 Rx 100 unit/mL (70-30) subcutaneous subcut AMPM #30 mL soln (Novolog Mix 70-30 U-100 Insuln) bumetanide 2 mg tablet 2 mg PO DAILY PRN fluid overload 03/18/24 06/27/24 Rx #200 tabs spironolactone 50 mg tablet 50 mg PO DAILY #90 tabs 04/29/24 06/27/24 Rx flash glucose sensor (FreeStyle #1 ea 05/09/24 06/27/24 Rx Rossy 14 Day Sensor kit) calcitriol 0.25 mcg capsule 0.25 mcg PO 3XWK #12 caps 05/20/24 06/27/24 Rx (Rocaltrol) levothyroxine 75 mcg tablet 75 mcg PO QAM #90 tabs 05/31/24 06/27/24 Rx ondansetron HCl 8 mg tablet 8 mg PO Q8H PRN nausea and 05/31/24 06/27/24 Rx vomiting #30 tabs potassium chloride 20 mEq 40 meq (2 x 20 mEq) PO DAILY #2 06/11/24 06/27/24 Rx tablet,extended release(part/cryst) tabs sertraline 100 mg tablet 100 mg PO DAILY #90 tabs 06/12/24 06/27/24 Rx carvedilol 12.5 mg tablet 12.5 mg PO BID 06/27/24 06/27/24 History Patient History Medical History Acute exacerbation of CHF (congestive heart failure) Orthostasis Acute kidney injury superimposed on chronic kidney disease Non-ST elevation [place] (NSTEMI) Nausea and vomiting after administration of anesthetic agent severe PONV s/p Left carotid surgery 09/27/21 at [facility] History of CVA (cerebrovascular accident) Had RUE weakness and numbness after 09/17/21 breast surgery- CT scan of head negative; unable to do MRI due to ICD Per PCP records 10/22/21= "[place] her post op RUE sx related to possible small stroke/TIA" Subclavian artery stenosis Rheumatoid arthritis No medications Followed with rheum in the past- no recent issues Chronic kidney disease STAGE IV-F/U DR SALINAS Diabetes mellitus, type 2 Glucose fluctuates SOB (shortness of breath) on exertion DVT (deep venous thrombosis) LOWER LEG 2019 Aortic stenosis, severe S/p TAVR 10/2019 NSTEMI (non-ST elevated myocardial infarction) Most recent 12/2019 (mild per patient) Surgical History S/P right knee arthroscopy (04/2024) S/P AV hiren ablation (06/30/22) H/O heart artery stent H/O colonoscopy History of left-sided carotid endarterectomy (09/27/21) redo L CEA, Dr Bateman Status post partial mastectomy of right breast (09/17/21) 09/17/21 - Done under [place] with LMA #4. Atraumatic LMA insertion. Magnet placed secondary to pacemaker. Right Breast Partial Mastectomy with [place] Senior Loss Control Specialist Localization, Right Axillary [place] Lymph Node Biopsy(Right) - Hua Acosta, DO History of cardiac cath TOTAL 6? STENTS- 2018 and 2019 S/P coronary artery stent placement (10/2017) NATY to mid LAD S/P carotid endarterectomy B/l 2016 S/P thoracentesis (03/2020) b/l d/t CHF S/P angioplasty (02/03/21) RECOIL [place] L SFA History of oophorectomy History of hysterectomy History of cholecystectomy H/O: section History of cataract surgery right and left History of appendectomy Family History Daughter Coronary heart disease Cardiac stent Diabetes Mother , 83yo Diabetes Family history of hypercholesterolemia Myocardial infarction Hypertension Stroke Brother Colorectal cancer 1/2 brother Father , Accident in war Brother Diabetes 1/2 brother;Complications of DM Family/Other Myocardial infarction 1/2 sister Son Coronary heart disease Cardiac stent Hypertension Other Pacemaker Denies family history of Ovarian cancer Prostate cancer Breast cancer Social History Smoking Status: Never smoker Second Hand Exposure: No; Do You Dip or Chew Tobacco: No; Hx Alcohol Use: No Hx Substance Use: No Preferred Language: Vietnamese Communication Ability: Effective Visual Impairment: No Limitations Hearing Ability: Hard of Hearing Manager Security Required: No Beliefs That Will Affect Care: None marital status: / marital status details: passed 2000 Current Living Situation: Alone current occupational status: retired 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 How many Children do You have: 2 Feels Safe at Home: Yes Diet: regular caffeine: Yes (1 cup/day) during the past year weight has: remained stable Dental Care, Regularly: No Physical Activity Frequency: Daily Seatbelt Use: always Assistive Devices: Cane and Walker Review of Systems 2 Review of Systems: All systems reviewed & are unremarkable except as noted in HPI & below Physical Exam 2 Physical Exam: Constitutional: No acute distress HEENT: EOMI, PERRLA Respiratory system: Decreased air entry bilaterally, more decreased on the right, no wheeze, no rhonchi, positive mild crackles appreciated bilaterally CVS: S1-S2 positive, 2 out of 6 systolic murmur appreciated best at aorta, accentuated P2 Abdomen: Soft, nontender, nondistended, positive bowel sounds x4 Extremities: +2 pulses bilaterally radialis/ dorsalis pedis, no cyanosis, +1 pitting edema bilateral lower extremity Neuro: Awake alert oriented x3 Psych: Normal mood and affect G/U: No [place] Skin: no rashes, warm and dry Lymphatic: no cervical or axillary lymphadenopathy Results & Data Results & Data Vital Signs (Past 12 Hours) Vital Signs Temp Pulse Pulse Resp BP BP Pulse Ox 06/30/24 07:34 36.6 C 70 20 147/81 H 91 06/30/24 03:44 36.7 C 71 16 118/71 92 06/30/24 03:15 70 06/29/24 23:17 36.8 C 70 16 121/69 92 06/29/24 21:00 O2 Del Method 06/30/24 07:34 Room Air 06/30/24 03:44 Room Air 06/30/24 03:15 06/29/24 23:17 Room Air 06/29/24 21:00 Room Air Laboratory Results 06/28/24 03:25 06/30/24 06:37 PG Care Time/CCT Total # of Minutes Spent Total Time Spent with Patient: Total time spent is greater than 50% in coordination of care (as documented) at patient's floor/unit and/or counseling patient: Coding Level of Care Code 29226 INT INP/OBS CARE 3/75MIN Diagnoses Acute on chronic systolic CHF (congestive heart failure) I50.23 Pulmonary hypertension I27.20 Ischemic cardiomyopathy I25.5 Pleural effusion J90
[2024-06-30] MEDS: BUMETANIDE 3 MG in SYRINGE 0 ML IV SCH (09:11)
--- NOTE | 2024-06-30 10:37 | XRay Report ---
XR chest 2V PA/lateral CLINICAL HISTORY: b/l effusions, interval change TECHNIQUE: 2 views of the chest were obtained. Comparison: Comparison is made to chest radiograph 06/27/2024 FINDINGS: Lines and tubes are stable. Calcified aortic knob is seen. The lungs are clear. Small bilateral pleur al effusions are seen, right greater than left. IMPRESSION: Bilateral small pleural effusions are similar to prior exam. ACT 112: Negative or not required by law. Electronically signed by: Gato Nagel M.D. 06/30/2024 10:36 AM
--- NOTE | 2024-06-30 11:15 | Procedure Note ---
Procedure Note Date of Service June 30, 2024 Bedside Ultrasound: Lung: Right:-Moderate to large left-sided pleural effusion, no loculations, compressive atelectasis of the right lower lobe, B-lines anteriorly Left:-Small to moderate left-sided pleural effusion, no loculation, compressive atelectasis of the left lower lobe, a lines anteriorly Heart: No pericardial effusion Please note the above document was generated using voice recognition software. It may contain grammatical, syntax or spelling errors.Any formal questions or concerns about the content, text or information contained within the body of this dictation should be directly addressed to the provider for clarification. [facility] [place] Procedure Codes (Charges) Pulmonary/Thoracic Procedure 1: Pulmonary and Thoracic: 93574 US, Chest, real time with imaging documentation Coding CPT Codes Pulmonary/Thoracic - Pulmonary and Thoracic: 54995 US, Chest, real time with imaging documentation ([id number]) Additional Codes Date of Service (PG.SURGERY)
--- NOTE | 2024-06-30 20:02 | Hospitalist Progress Note ---
Date of Service June 30, 2024 Assessment & Plan (1) Acute on chronic systolic CHF (congestive heart failure): Plan: EF 40-45% recent NSTEMI with RCA occlusion s/p 2 NATY to the RCA lesion -- [facility], 06/25/24 prior Left main stent patent other prior stents with moderate stenoses is on bumex 2mg IV BID - since admission only a modest diuresis with such, and she continues to have dyspnea will increase bumex to 3mg BID cont coreg BID cont aldactone cont Ranexa not HERMELINDO/ARB/Entresto candidate per records suspect that the mod-large pleural effusion on the right is the largest culprit in her dyspnea appreciate Dr Baxter's consult from pulmonary He performed bedside u/s -- right sided effusion is mod-large, left sided effusion is small to moderate I placed Eliquis on hold in the event she needed thoracentesis this week --> last dose of Eliquis was PM of 06/28 cannot stop Brilinta due to recent stent placement at [facility] (2) Heart failure with mildly reduced ejection fraction (HFmrEF): Plan: EF 40-45% (3) DM II (diabetes mellitus, type II), controlled: Plan: cont lantus cont novolog a1c 7% in April pharmacy glycemic team is managing her DM (4) CKD (chronic kidney disease) stage 4, GFR 15-29 ml/min: Plan: Baseline creatinine around 22.2 Baseline CrCl 20s BMP daily while here Cr today stable (5) Non-ST elevation [place] (NSTEMI): Plan: hospitalized initially at [facility] after suffering falls, developed chest pain while there, then transferred to [facility] for cardiac cath when she was dx with NSTEMI by report her troponin on 06/25 was 37,112 troponins here continue to down-trend no new NSTEMI cont Brilinta, BB she is statin intolerant (6) Elevated troponin: Plan: see #5 above (7) S/P TAVR (transcatheter aortic valve replacement): Plan: echo this admission with well-seated valve & normal gradients (8) Biventricular ICD (implantable cardioverter-defibrillator) in place: Plan: pacing on tele no recent discharges (9) Ischemic cardiomyopathy: Plan: EF 40-45% (10) Atrial fibrillation, permanent: Plan: on Eliquis typically placed on hold in the event she needs thoracentesis early this week remains on coreg 3.125mg BID (11) Hypothyroidism: Plan: TSH 02/13/24 wnl cont synthroid as is Plan PT, OT right knee pain - tramadol prn + tylenol 1000mg TID updated pt's daughter on 06/29/24 by phone care d/w Dr Baxter today from pulmonary Admission and Anticipated Discharge Date Admission Date: June 27, 2024 Subjective breathing is similar to yesterday still dyspneic with activities in the room no dyspnea at rest no chest pain eating well still no stool Review of Systems Review of Systems: cv - minimal edema legs pulm - no cough GI - no N/V or pain Physical Exam Physical Exam: gen - NAD, pleasant; slight confusion today? neck - mild JVD present even sitting at 90 degrees mouth - MMM heart - RRR, s1 s2, 1/6 systolic murmur LSB lungs - decreased BS bases, R>L; dullness to percussion right base about 1/2 way up right back; no rales any location abd - soft NT ND BS+ ext - trace edema b/l, pulses 2+ b/l psych - a/o x 3 Results & Data Results & Data Vital Signs (Past 12 Hours) Vital Signs Temp Pulse Pulse Resp BP Pulse Ox O2 Del Method 06/30/24 17:28 71 06/30/24 16:31 36.7 C 70 16 131/72 91 Room Air 06/30/24 13:40 Room Air 06/30/24 11:39 36.6 C 69 18 140/79 92 Room Air 06/30/24 08:00 70 Laboratory Results Laboratory Results - last 24 hr 06/29/24 06/30/24 06/30/24 20:19 06:37 07:09 Sodium 136 Potassium 4.6 Chloride 96 L Carbon Dioxide 33 H Anion Gap 7 BUN 47 H Creatinine 1.94 H Est Cr Clr Drug Dosing 22.4 Est GFR ( Amer) 26.9 Est GFR (Non-Af Amer) 23.2 BUN/Creatinine Ratio 24.2 H Glucose 110 H POC Glucose 106 H 118 H Calcium 9.0 06/30/24 06/30/24 06/30/24 11:40 16:32 17:04 Sodium Potassium Chloride Carbon Dioxide Anion Gap BUN Creatinine Est Cr Clr Drug Dosing Est GFR ( Amer) Est GFR (Non-Af Amer) BUN/Creatinine Ratio Glucose POC Glucose 165 H 77 101 H Calcium Diagnostic Findings Chest X-Ray 06/30/24 07:00 XR chest 2V PA/lateral CLINICAL HISTORY: b/l effusions, interval change TECHNIQUE: 2 views of the chest were obtained. Comparison: Comparison is made to chest radiograph 06/27/2024 FINDINGS: Lines and tubes are stable. Calcified aortic knob is seen. The lungs are clear. Small bilateral pleural effusions are seen, right greater than left. IMPRESSION: Bilateral small pleural effusions are similar to prior exam. ACT 112: Negative or not required by law. Electronically signed by: Gato Nagel M.D. 06/30/2024 10:36 AM PG Care Time/CCT Total # of Minutes Spent Total Time Spent with Patient: Total time spent is greater than 50% in coordination of care (as documented) at patient's floor/unit and/or counseling patient: Coding Level of Care Code 43140 SUB INP/OBS CARE 2/35MIN Diagnoses Acute on chronic systolic CHF (congestive heart failure) I50.23 Heart failure with mildly reduced ejection fraction (HFmrEF) I50.22 Controlled type 2 diabetes mellitus with diabetic nephropathy, with long-term current use of insulin E11.21; Z79.4 Diabetes mellitus complication detail: with nephropathy Diabetes mellitus complication status: with kidney complications Diabetes mellitus exterminator helper insulin use: with group home use CKD (chronic kidney disease) stage 4, GFR 15-29 ml/min N18.4 Non-ST elevation [place] (NSTEMI) I21.4 Elevated troponin R77.8 S/P TAVR (transcatheter aortic valve replacement) Z95.2 Biventricular ICD (implantable cardioverter-defibrillator) in place Z95.810 Ischemic cardiomyopathy I25.5 Atrial fibrillation, permanent I48.21 Acquired hypothyroidism E03.9 Hypothyroidism type: acquired (3) DM II (diabetes mellitus, type II), controlled Diabetes mellitus complication detail: with nephropathy Diabetes mellitus complication status: with kidney complications Diabetes mellitus exterminator helper insulin use: with exterminator helper use Qualified Code(s): E11.21 - Type 2 diabetes mellitus with diabetic nephropathy; Z79.4 - intermediate (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 (11) Hypothyroidism Hypothyroidism type: acquired Qualified Code(s): E03.9 - Hypothyroidism, unspecified
[2024-07-01 08:04] LABS: BUN Creatinine Ratio 24.2 (10-20); Calcium 8.8 mg/dl (8.6-10.3); Creatinine Clr Calc Pharmacy 22.8 ml/min; Est GFR (African American) 27.6 ml/min; Est GFR (Non-African American) 23.8 ml/min; Potassium 4.3 mmol/L (3.5-5.1)
--- NOTE | 2024-07-01 12:16 | Pharmacy Report ---
Pharmacy Glycemic Short Note 2 - Date of Service July 01, 2024 - Glycemic Short BSG Results (Last 24 hours): 06/30/24 06/30/24 06/30/24 16:32 17:04 21:20 Glucose POC Glucose 77 101 H 211 H 07/01/24 07/01/24 07/01/24 07:03 07:07 11:08 Glucose 112 H POC Glucose 129 H 161 H OUTPATIENT ANTIDIABETIC REGIMEN: * Novolog Mix 70/30 15-30 units SC BID HbA1c = 7% on 04/26/24 ASSESSMENT: 07/01/24 * 27 units of insulin total given 06/30 (10 units basal) * Basal insulin to remain the same due to fasting blood sugar of 129mg/dl * Possible over correction seen on dinner time bg levels on 06/30, will trial extending goal range to 140-180 to prevent hypoglycemia * Correction factor and CHO ratio to remain the same 06/28/24: * Blood sugars trended down nicely overnight, fasting blood sugar of 131 mg/dL * Originally ordered Lantus BID, but given improvement will change this to just once daily for now * Carb ratio tightened last evening and will continue 06/27/24: * 83 y/o F admitted for CHF exacerbation and SOB. Patient with history of diabetes well controlled on basal and bolus insulins at home. * On admission blood sugar was elevated at 287 mg/dl. * Patient has had multiple admissions this year. Insulin was dosed conservatively with total basal dose of 10 units per day. * Will continue with home basal dose on this admission and loose Novolog parameters based off of her total insulin dose at home that is between 50-80 units. * Overnight checks added. PLAN FOR INPATIENT GLYCEMIC CONTROL: * Basal insulin * Lantus 10 units SQ HS * Bolus insulin * NovoLog per scale ACHS or Q6hrs while NPO * Goal Range: Low 140 mg/dL - High 180 mg/dL * Correction Factor: 30 mg/dL/unit * Nutritional / Prandial insulin per carb ratio of 1 unit per 12 grams CHO consumed
--- NOTE | 2024-07-01 13:22 | Pulmonology Progress Note ---
Date of Service July 01, 2024 Assessment & Plan (1) Acute on chronic systolic CHF (congestive heart failure): (2) Pulmonary hypertension: (3) Ischemic cardiomyopathy: (4) Pleural effusion: Plan Impression: 83-year-old female with history of transudative pleural effusions presenting with same. Likely secondary to cardiac etiology. She remains symptomatic. Recommendations: 1. Bilateral pleural effusions: Right greater than left. Patient is on room air. Discussed thoracentesis versus continued diuresis with her. She would like to pursue thoracentesis. She understands the bleeding risk which is slightly higher as the patient is currently on her antiplatelet agents which cannot be stopped due to recent cardiac procedures. Nevertheless she would like to proceed. Consent was verified. Will proceed with ultrasound-guided catheter thoracentesis on the right. Will recharacterize pleural fluid and do follow-up chest x-ray postthoracentesis. 2. Dyspnea: Likely secondary to #1. Recommend continued diuresis. 3. Pulmonary hypertension, coronary artery disease, systolic/diastolic heart failure: Management per primary service and outpatient cardiology. 4. Anticoagulation can be resumed in 24 to 48 hours depending on clinical response. Pulmonary will sign off at this point in time if the x-ray looks okay. If we can be of additional assistance, feel free to contact us. If the patient needs additional outpatient pulmonary follow-up, she can follow-up with Dr. Baxter in the outpatient setting. Admission and Anticipated Discharge Date Admission Date: June 27, 2024 Subjective Patient seen and examined. EMR reviewed. Discussed with off going director integrated. The patient reports that she is doing okay. She does report some occasional chest tightness which persists. She is very unstable and had a fall in the bathroom this morning. She is not coughing. She not expectorating phlegm. No fevers chills or night sweats. Her appetite is good. Review of Systems 2 Review of Systems: All systems reviewed & are unremarkable except as noted in Subjective Physical Exam 2 Constitutional: WD/WN, vitals as above Neck: trachea midline, no thyromegaly Respiratory: no respiratory distress, no labored breathing, no cough and not tachypneic Auscultation: + diminished lung sounds Decreased breath sounds with dullness to percussion at bilateral bases right greater than left Cardiovascular: RRR, no murmur, no edema Gastrointestinal (Abdomen): normal bowel sounds, soft, nontender, no hepatosplenomegaly Musculoskeletal: Extremities: extremities normal to inspection Skin: no rashes, warm and dry Neurologic: Nonfocal exam Lymphatic: no cervical lymphadenopathy Results & Data Results & Data Vital Signs (Past 12 Hours) Vital Signs Temp Pulse Resp BP BP Pulse Ox O2 Del Method 07/01/24 10:39 36.8 C 70 16 147/77 H 90 Room Air 07/01/24 07:16 36.6 C 70 20 141/80 H 90 Room Air 07/01/24 04:28 36.6 C 72 16 134/81 92 Room Air Laboratory Results 06/28/24 03:25 07/01/24 07:03 PG Care Time/CCT Total # of Minutes Spent Total Time Spent with Patient: Total time spent is greater than 50% in coordination of care (as documented) at patient's floor/unit and/or counseling patient: Coding Level of Care Code 62945 SUB INP/OBS CARE 2/35MIN Diagnoses Acute on chronic systolic CHF (congestive heart failure) I50.23 Pulmonary hypertension I27.20 Ischemic cardiomyopathy I25.5 Pleural effusion J90
--- NOTE | 2024-07-01 13:23 | Procedure Note ---
Procedure Note Date of Service July 01, 2024 Procedure: Diagnostic therapeutic ultrasound-guided catheter thoracentesis, right Hair Dresser: Dr. Gregory Bonilla Indication: Pleural effusion Consent: Signed by patient and verified with timeout prior to procedure Anesthesia: 8 mL's 1% lidocaine without epinephrine local. Procedure: Consent was verified and timeout performed. Appropriate imaging studies were reviewed prior to the procedure. Patient was placed in a seated position and limited thoracic ultrasound was performed of the bilateral chest. A moderate- sized right effusion was noted with a small left effusion. Site appropriate on the right was marked. The skin was prepped and draped in normal sterile fashion. Lidocaine was used for local analgesia. Fluid was aspirated via the finder needle. A small skin adelaida was made with the scalpel and the catheter over the needle apparatus was advanced over the rib into the pleural space. Using the syringe one-way valve system, a total of 1500 mL's of clear yellow fluid was removed. Procedure was terminated due to patient coughing and com plaining of some chest tightness. The catheter was removed and observed to be intact. A sterile dressing was applied. Post procedure chest x-ray was ordered. Postprocedure ultrasound demonstrated a small residual right-sided effusion with lung sliding noted in multiple quadrants Fluid was sent for cytology, cell count differential, Gram stain and culture, glucose, LDH, total protein, pH, and cytology. The patient tolerated the procedure well without obvious complication [facility] [place] Procedure Codes (Charges) Pulmonary/Thoracic Procedure 1: Pulmonary and Thoracic: 01679 Thoracentesis w imaging Coding CPT Codes Pulmonary/Thoracic - Pulmonary and Thoracic: 89334 Thoracentesis w imaging ([id number]) Additional Codes Date of Service (PG.SURGERY)
--- NOTE | 2024-07-01 14:16 | XRay Report ---
XR chest 1V portable HISTORY: 83 years-old Female S/P Thoracentesis follow-up study in a patient with pleural effusions COMPARISON: 06/30/2024 TECHNIQUE: AP view the chest FINDINGS: Cardiac silhouette is enlarged. Aortic valvular endograft. Left subclavian pacer/AICD. Pulmonary vasc ular congestion with interstitial coarsening. Layering pleural effusions with bibasilar opacities. Th e right pleural effusion has decreased in size. No postprocedural pneumothorax. Bones appear grossly intact. IMPRESSION: 1. Decreased size of the right pleural effusion status post thoracentesis. 2. No postprocedural pneumothorax identified. ACT 112: Negative or not required by law. The above report was generated using voice recognition software. It may contain grammatical, syntax o r spelling errors. Electronically signed by: Irving Lerner M.D. 07/01/2024 2:14 PM
[2024-07-01 14:41] LABS: Appearance Pleural Fluid Turbid; Color Pleural Fluid Yellow; RBC Pleural Fluid Auto < 2000 /uL; Source Pleural Fluid Right Lung; WBC Pleural Fluid Auto 163 /uL
[2024-07-01 14:49] LABS: Glucose Pleural Fluid 165 mg/dl; LDH Pleural Fluid 38 U/L; Total Protein Pleural Fluid < 3.0 gm/dl
[2024-07-01 14:50] LABS: Lymphocytes, Fluid 14 %; Mono,Macrophage,Mesothelial 80 %; Neutrophils, Fluid 6 %
--- NOTE | 2024-07-01 20:24 | Hospitalist Progress Note ---
Date of Service July 01, 2024 Assessment & Plan (1) Acute on chronic systolic CHF (congestive heart failure): Plan: volume status improving with increased bumex dosing of 3mg IV BID s/p right-sided thoracentesis today - 1.5 liters of fluid removed, transudative by Lite's criteria continue bumex BID serial exams serial labs continue coreg BID continue aldactone daily not HERMELINDO/ARB/Entresto candidate per records EF 40-45% recent NSTEMI with RCA occlusion s/p 2 NATY to the RCA lesion -- [facility], 06/25/24 prior Left main stent patent other prior stents with moderate stenoses (2) Pleural effusion, right: Plan: s/p thoracentesis today by Dr Bonilla 1500cc removed transudative by Litjohanne's criteria prior h/o recurrent effusions likely all due to decompensated CHF in the setting of advanced CKD does have prior h/o breast ca - cytologies have been sent - but fluid was clear and not bloody (and, again, fluid not c/w exudative effusion) appreciate Dr Bonilla's assistance (3) Right knee pain: Plan: acute on chronic ideally would use oral or topical NSAID but not a candidate for either due to CKD, recent NSTEMI, use of antiplatelet agents & Eliquis, etc. thus, tramadol prn; ice prn cont tylenol 1gm TID should f/u with Dr Rader post-d/c for this issue (4) Heart failure with mildly reduced ejection fraction (HFmrEF): Plan: EF 40-45% as above (5) DM II (diabetes mellitus, type II), controlled: Plan: cont lantus cont novolog a1c 7% in April pharmacy glycemic team is managing her DM control is excellent (6) CKD (chronic kidney disease) stage 4, GFR 15-29 ml/min: Plan: Baseline creatinine around 22.2 Baseline CrCl 20s BMP daily while here Cr today stable once again at 1.9 (7) Non-ST elevation [place] (NSTEMI): Plan: hospitalized initially at [facility] after suffering falls, developed chest pain while there, then transferred to [facility] for cardiac cath when she was dx with NSTEMI by report her troponin on 06/25/24 was 37,112 cath findings -- RCA occlusion s/p 2 NATY to the RCA lesion -- again intervention performed at [facility], 06/25/24 troponins here continue to down-trend ([id number] --> [id number]) no new NSTEMI cont Brilinta, BB she is statin intolerant cont Ranexa (8) Elevated troponin: Plan: see above (9) S/P TAVR (transcatheter aortic valve replacement): Plan: echo this admission with well-seated valve & normal gradients (10) Biventricular ICD (implantable cardioverter-defibrillator) in place: Plan: pacing on tele no recent discharges (11) Ischemic cardiomyopathy: Plan: EF 40-45% as above (12) Atrial fibrillation, permanent: Plan: on Eliquis typically placed on hold for thoracentesis resume when ok with pulmonary remains on coreg 3.125mg BID (13) Hypothyroidism: Plan: TSH 02/13/24 wnl cont synthroid as is Plan PT, OT updated pt's daughter on 06/29/24 and again today, 07/01/24 progressing dispo - home with HH? Admission and Anticipated Discharge Date Admission Date: June 27, 2024 Subjective patient underwent right-sided thoracentesis earlier today 1.5 liters of fluid removed by Dr Bonilla w/o complication; post-procedure CXR without pneumothorax she overall feels much better dyspnea significantly improved no orthopnea main complaint during the visit was right knee pain chronic sees Dr Rader from ortho for this has had steroid injections in the past w/o any relief of pain earlier today was in the bathroom was trying to get up and the right knee locked, causing her to have a controlled, slow fall to the ground she did not injure herself denies pain in any other location besides the knee Review of Systems Review of Systems: cv - no chest pains pulm - no cough; no wheeze; dyspnea is improved GI - no abd pain or N/V Physical Exam Physical Exam: gen - NAD, pleasant; looks better today neck - mild JVD but improved from prior exams mouth - MMM heart - RRR, s1 s2, 1/6 systolic murmur LSB lungs - improved airation R base; crackles R base; decreased BS left base; no wheezing; no increased work of breathing abd - soft NT ND BS+ vascular - right radial artery - no hematoma or aneurysm; ecchymoses present only ext - no edema b/l, pulses 2+ b/l psych - a/o x 3 musculo - right knee - vera-articular bruising noted; crepitus with passive ROM; she is tender over the lateral joint line and the inferior portion of the patella and proximal tibia; no effusion Results & Data Results & Data Vital Signs (Past 12 Hours) Vital Signs Temp Pulse Resp BP BP Pulse Ox O2 Del Method 07/01/24 19:19 36.5 C 70 18 106/78 94 Room Air 07/01/24 15:15 36.6 C 70 16 140/78 90 Room Air 07/01/24 10:39 36.8 C 70 16 147/77 H 90 Room Air Laboratory Results Laboratory Results - last 24 hr 06/30/24 07/01/24 07/01/24 21:20 07:03 07:07 Sodium 136 Potassium 4.3 Chloride 96 L Carbon Dioxide 34 H Anion Gap 6 BUN 46 H Creatinine 1.90 H Est Cr Clr Drug Dosing 22.8 Est GFR ( Amer) 27.6 Est GFR (Non-Af Amer) 23.8 BUN/Creatinine Ratio 24.2 H Glucose 112 H POC Glucose 211 H 129 H Calcium 8.8 Fluid Neutrophils % Fluid Lymphocytes % Fluid [place] % Fluid Comment Pleural Fluid Source Pleural Color Pleural Appearance Pleural pH Pleural WBC (Auto) Pleural RBC (Auto) Pleural Total Protein Pleural LDH Pleural Glucose 07/01/24 07/01/24 07/01/24 11:08 15:56 19:58 Sodium Potassium Chloride Carbon Dioxide Anion Gap BUN Creatinine Est Cr Clr Drug Dosing Est GFR ( Amer) Est GFR (Non-Af Amer) BUN/Creatinine Ratio Glucose POC Glucose 161 H 89 116 H Calcium Fluid Neutrophils % Fluid Lymphocytes % Fluid [place] % Fluid Comment Pleural Fluid Source Pleural Color Pleural Appearance Pleural pH Pleural WBC (Auto) Pleural RBC (Auto) Pleural Total Protein Pleural LDH Pleural Glucose 07/01/24 Unknown Fluid Neutrophils % 6 Fluid Lymphocytes % 14 Fluid [place] % 80 Fluid Comment Pleural Fluid Source Right Lung Pleural Color Yellow Pleural Appearance Turbid Pleural pH 7.58 H Pleural WBC (Auto) 163 Pleural RBC (Auto) < 2000 Pleural Total Protein < 3.0 Pleural LDH 38 Pleural Glucose 165 Diagnostic Findings Chest X-Ray 07/01/24 13:19 XR chest 1V portable HISTORY: 83 years-old Female S/P Thoracentesis follow-up study in a patient with pleural effusions COMPARISON: 06/30/2024 TECHNIQUE: AP view the chest FINDINGS: Cardiac silhouette is enlarged. Aortic valvular endograft. Left subclavian pacer/AICD. Pulmonary vascular congestion with interstitial coarsening. Layering pleural effusions with bibasilar opacities. The right pleural effusion has decreased in size. No postprocedural pneumothorax. Bones appear grossly intact. IMPRESSION: 1. Decreased size of the right pleural effusion status post thoracentesis. 2. No postprocedural pneumothorax identified. ACT 112: Negative or not required by law. The above report was generated using voice recognition software. It may contain grammatical, syntax or spelling errors. Electronically signed by: Irving Lerner M.D. 07/01/2024 2:14 PM PG Care Time/CCT Total # of Minutes Spent Total Time Spent with Patient: Total time spent is greater than 50% in coordination of care (as documented) at patient's floor/unit and/or counseling patient: Coding Level of Care Code 10201 SUB INP/OBS CARE 2/35MIN Diagnoses Acute on chronic systolic CHF (congestive heart failure) I50.23 Pleural effusion, right J90 Right knee pain M25.561 Heart failure with mildly reduced ejection fraction (HFmrEF) I50.22 Controlled type 2 diabetes mellitus with diabetic nephropathy, with long-term current use of insulin E11.21; Z79.4 Diabetes mellitus complication detail: with nephropathy Diabetes mellitus complication status: with kidney complications Diabetes mellitus extermination inspector insulin use: with extermination inspector use CKD (chronic kidney disease) stage 4, GFR 15-29 ml/min N18.4 Non-ST elevation [place] (NSTEMI) I21.4 Elevated troponin R77.8 S/P TAVR (transcatheter aortic valve replacement) Z95.2 Biventricular ICD (implantable cardioverter-defibrillator) in place Z95.810 Ischemic cardiomyopathy I25.5 Atrial fibrillation, permanent I48.21 Acquired hypothyroidism E03.9 Hypothyroidism type: acquired (5) DM II (diabetes mellitus, type II), controlled Diabetes mellitus complication detail: with nephropathy Diabetes mellitus complication status: with kidney complications Diabetes mellitus extermination inspector insulin use: with chcf use Qualified Code(s): E11.21 - Type 2 diabetes mellitus with diabetic nephropathy; Z79.4 - assisted (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 (13) Hypothyroidism Hypothyroidism type: acquired Qualified Code(s): E03.9 - Hypothyroidism, unspecified
[2024-07-02 10:55] LABS: BUN Creatinine Ratio 21.5 (10-20); Calcium 9.1 mg/dl (8.6-10.3); Creatinine Clr Calc Pharmacy 19.2 ml/min; Est GFR (African American) 22.7 ml/min; Est GFR (Non-African American) 19.6 ml/min; Potassium 4.6 mmol/L (3.5-5.1)
--- NOTE | 2024-07-02 17:10 | Hospitalist Progress Note ---
Date of Service July 02, 2024 Assessment & Plan (1) Acute on chronic systolic CHF (congestive heart failure): Plan: 83-year-old woman with chronic heart failure with midrange ejection fraction, history of TAVR, and coronary artery disease with recent RCA stent admitted with acute on chronic heart failure diuresed with IV Bumex, dyspnea and hypoxia resolved, weight improved from 87 down to 79.9 kg today appears euvolemic to dry perhaps she is a little lightheaded, BUN/creatinine has bumped significantly overnight though still within her baseline range with CKD 4 hold diuretics today, resume oral Bumex tomorrow but increase to 3 mg. had become volume overloaded on 2 mg p.o. twice daily outpatient dosing continue carvedilol and spironolactone. not HERMELINDO/ARB/Entresto candidate per records due to hypotension and renal impairment assess response to these oral diuretic regimen, follow-up with heart failure clinic pleural effusion related to heart failure right-sided thoracentesis 07/01 - 1.5 liters of fluid removed, transudative by L[facility]'s criteria. cytology reviewed and was negative for malignancy ordered daily a.m. BMP EF 40-45% recent NSTEMI with RCA occlusion s/p 2 NATY to the RCA lesion -- [facility], 06/25/24 prior Left main stent patent other prior stents with moderate stenoses (2) Pleural effusion, right: Plan: see above (3) Right knee pain: Plan: acute on chronic, likely related to osteoarthritis ideally would use oral or topical NSAID but not a candidate for either due to CKD, recent NSTEMI, use of antiplatelet agents & Eliquis, etc. thus, tramadol prn; ice prn cont tylenol 1gm TID should f/u with Dr Rader post-d/c for this issue (4) Heart failure with mildly reduced ejection fraction (HFmrEF): Plan: EF 40-45% as above (5) DM II (diabetes mellitus, type II), controlled: Plan: cont lantus cont novolog a1c 7% in April pharmacy glycemic team is managing her DM blood glucoses 9/17 at goal (6) CKD (chronic kidney disease) stage 4, GFR 15-29 ml/min: Plan: Baseline creatinine around 22.2 Baseline CrCl 20s BMP daily while here increased as expected with diuretics but still within baseline today (7) Non-ST elevation [place] (NSTEMI): Plan: hospitalized initially at [facility] after suffering falls, developed chest pain while there, then transferred to [facility] for cardiac cath when she was dx with NSTEMI by report her troponin on 06/25/24 was 37,112 cath findings -- RCA occlusion s/p 2 NATY to the RCA lesion -- again intervention performed at [facility], 06/25/24 troponins here continue to down-trend (5088 --> 3894) no new NSTEMI cont Brilinta, BB she is statin intolerant cont Ranexa (8) Elevated troponin: Plan: see above (9) S/P TAVR (transcatheter aortic valve replacement): Plan: echo this admission with well-seated valve & normal gradients (10) Biventricular ICD (implantable cardioverter-defibrillator) in place: Plan: pacing on tele no recent discharges (11) Ischemic cardiomyopathy: Plan: EF 40-45% as above (12) Atrial fibrillation, permanent: Plan: resume apixaban and continue carvedilol (13) Hypothyroidism: Plan: TSH 02/13/24 wnl cont synthroid as is Plan PT, OT referral to Angy Foster placed updated pt's daughter on 06/29, 07/01 Admission and Anticipated Discharge Date Admission Date: June 27, 2024 Subjective Ban feels "cotton headed" today I think this means lightheaded she denies any more runny nose than usual with her allergies, denies sore throat, no fevers or chills dyspnea has resolved, no chest pain, leg edema significantly improved Physical Exam 2 Physical Exam: PHYSICAL EXAMINATION Last 24h vital signs reviewed, see documentation in flowsheet General: comfortable appearing, no distress, sitting up in the chair HEENT: Normocephalic, atraumatic, pupils round and equal, sclerae anicteric, no conjunctival injection, moist mucus membranes Lungs: Normal respiratory effort. Clear to auscultation bilaterally. No RRW Heart: Regular rate and rhythm, no murmurs. No JVD Abdomen: Soft, nontender, nondistended. Bowel sounds present. Extremities: Warm, dry, well-perfused. 1+ lower extremity edema. Neuro: Alert and oriented x 4, face symmetric, moves 4 extremities well Psych: Normal affect and behavior Results & Data Results & Data Vital Signs (Past 12 Hours) Vital Signs Temp Pulse Resp BP BP Pulse Ox O2 Del Method 07/02/24 16:01 36.7 C 74 16 124/65 98 Room Air 07/02/24 12:19 36.5 C 70 16 114/69 98 Room Air 07/02/24 07:56 36.8 C 78 20 118/73 96 Room Air Laboratory Results 06/28/24 03:25 07/02/24 10:13 PG Care Time/CCT Total # of Minutes Spent Total Time Spent with Patient: Total time spent is greater than 50% in coordination of care (as documented) at patient's floor/unit and/or counseling patient: Coding Level of Care Code 38988 SUB INP/OBS CARE 2/35MIN Diagnoses Acute on chronic systolic CHF (congestive heart failure) I50.23 Pleural effusion, right J90 Right knee pain M25.561 Heart failure with mildly reduced ejection fraction (HFmrEF) I50.22 Controlled type 2 diabetes mellitus with diabetic nephropathy, with long-term current use of insulin E11.21; Z79.4 Diabetes mellitus usp insulin use: with rat exterminator use Diabetes mellitus complication status: with kidney complications Diabetes mellitus complication detail: with nephropathy CKD (chronic kidney disease) stage 4, GFR 15-29 ml/min N18.4 Non-ST elevation GA (NSTEMI) I21.4 Elevated troponin R77.8 S/P TAVR (transcatheter aortic valve replacement) Z95.2 Biventricular ICD (implantable cardioverter-defibrillator) in place Z95.810 Ischemic cardiomyopathy I25.5 Atrial fibrillation, permanent I48.21 Acquired hypothyroidism E03.9 Hypothyroidism type: acquired (5) DM II (diabetes mellitus, type II), controlled Diabetes mellitus rat exterminator insulin use: with usp use Diabetes mellitus complication status: with kidney complications Diabetes mellitus complication detail: with nephropathy Qualified Code(s): E11.21 - Type 2 diabetes mellitus with diabetic nephropathy; Z79.4 - half-way (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 (13) Hypothyroidism Hypothyroidism type: acquired Qualified Code(s): E03.9 - Hypothyroidism, unspecified
[2024-07-03 07:16] LABS: BUN Creatinine Ratio 21.5 (10-20); Creatinine Clr Calc Pharmacy 20.1 ml/min; Est GFR (African American) 23.9 ml/min; Est GFR (Non-African American) 20.6 ml/min; Potassium 4.4 mmol/L (3.5-5.1)
[2024-07-03] MEDS: POTASSIUM CHLORIDE CRTAB 20 MEQ TABCR PO SCH (08:15)
[2024-07-03] MEDS: BUMETANIDE 1 MG TAB PO SCH (08:17)
[2024-07-03] MEDS ORDERED: BUMETANIDE 1 MG TAB PO SCH (09:00)
--- NOTE | 2024-07-03 10:53 | Pharmacy Report ---
Pharmacy Glycemic Short Note 2 - Date of Service July 03, 2024 - Glycemic Short BSG Results (Last 24 hours): 07/02/24 07/02/24 07/02/24 10:13 11:21 16:25 Glucose 228 H POC Glucose 169 H 158 H 07/02/24 07/03/24 07/03/24 20:06 06:27 07:34 Glucose 129 H POC Glucose 182 H 129 H OUTPATIENT ANTIDIABETIC REGIMEN: * Novolog Mix 70/30 15-30 units SC BID * HbA1c = 7% on 04/26/24 ASSESSMENT: 07/03/24: * BSGs yesterday were: [id number] mg/dL. Patient received 10 units basal + 6 units bolus. * Fasting BSG this AM is controlled at 129 mg/dL. No change to basal regimen. * Goal range was adjusted to 140-180 mg/dL on Monday. Agree with this decision but ultimately would prefer that patient BSGs remain less than 180 mg/dL while inpatient. Therefore, will adjust goal range to 120-160 mg/dL today to provide slightly more correctional insulin. * No change in stressors. 07/01/24 * 27 units of insulin total given 06/30 (10 units basal) * Basal insulin to remain the same due to fasting blood sugar of 129mg/dl * Possible over correction seen on dinner time bg levels on 06/30, will trial extending goal range to 140-180 to prevent hypoglycemia * Correction factor and CHO ratio to remain the same 06/28/24: * Blood sugars trended down nicely overnight, fasting blood sugar of 131 mg/dL * Originally ordered Lantus BID, but given improvement will change this to just once daily for now * Carb ratio tightened last evening and will continue 06/27/24: * 83 y/o F admitted for CHF exacerbation and SOB. Patient with history of diabetes well controlled on basal and bolus insulins at home. * On admission blood sugar was elevated at 287 mg/dl. * Patient has had multiple admissions this year. Insulin was dosed conservatively with total basal dose of 10 units per day. * Will continue with home basal dose on this admission and loose Novolog parameters based off of her total insulin dose at home that is between 50-80 units. * Overnight checks added. PLAN FOR INPATIENT GLYCEMIC CONTROL: * Basal insulin * Lantus 10 units SC HS * Bolus insulin * NovoLog per scale ACHS or Q6hrs while NPO * Goal Range: Low 120 mg/dL - High 160 mg/dL * Correction Factor: 30 mg/dL/unit * Nutritional / Prandial insulin per carb ratio of 1 unit per 15 grams CHO consumed
--- NOTE | 2024-07-03 18:07 | Hospitalist Progress Note ---
Date of Service July 03, 2024 Assessment & Plan (1) Acute on chronic systolic CHF (congestive heart failure): Plan: 83-year-old woman with chronic heart failure with midrange ejection fraction, history of TAVR, and coronary artery disease with recent RCA stent admitted with acute on chronic heart failure diuresed with IV Bumex, dyspnea and hypoxia resolved, weight improved from 87 down to 79.9 kg feels better after diuretics held yesterday. CKD-4 and Cr at baseline 2.14 resume oral diuretics today assess response to 3 mg bumex po bid and spironolactone follow-up with heart failure clinic discussed with care coord - applying for insurance auth for [facility] pleural effusion related to heart failure right-sided thoracentesis 07/01 - 1.5 liters of fluid removed, transudative by [facility] criteria. cytology reviewed and was negative for malignancy. Culture NGTD AM BMP EF 40-45% recent NSTEMI with RCA occlusion s/p 2 NATY to the RCA lesion -- [facility], 06/25/24 prior Left main stent patent other prior stents with moderate stenoses (2) Pleural effusion, right: Plan: see above (3) Right knee pain: Plan: acute on chronic, likely related to osteoarthritis ideally would use oral or topical NSAID but not a candidate for either due to CKD, recent NSTEMI, use of antiplatelet agents & Eliquis, etc. thus, tramadol prn; ice prn cont tylenol 1gm TID should f/u with Dr Rader post-d/c for this issue (4) Heart failure with mildly reduced ejection fraction (HFmrEF): Plan: EF 40-45% as above (5) DM II (diabetes mellitus, type II), controlled: Plan: cont lantus cont novolog a1c 7% in April pharmacy glycemic team is managing her DM blood glucoses 07/03 at goal (6) CKD (chronic kidney disease) stage 4, GFR 15-29 ml/min: Plan: Baseline creatinine around 22.2 Baseline CrCl 20s BMP daily while here at baseline (7) Non-ST elevation [place] (NSTEMI): Plan: hospitalized initially at [facility] after suffering falls, developed chest pain while there, then transferred to [facility] for cardiac cath when she was dx with NSTEMI by report her troponin on 06/25/24 was 37,112 cath findings -- RCA occlusion s/p 2 NATY to the RCA lesion -- again intervention performed at [facility], 06/25/24 troponins here continue to down-trend (5088 --> 3894) no new NSTEMI cont Brilinta, BB she is statin intolerant cont Ranexa (8) Elevated troponin: Plan: see above (9) S/P TAVR (transcatheter aortic valve replacement): Plan: echo this admission with well-seated valve & normal gradients (10) Biventricular ICD (implantable cardioverter-defibrillator) in place: Plan: pacing on tele no recent discharges (11) Ischemic cardiomyopathy: Plan: EF 40-45% as above (12) Atrial fibrillation, permanent: Plan: apixaban and carvedilol (13) Hypothyroidism: Plan: TSH 02/13/24 wnl cont synthroid as is Plan PT, OT medically ready for discharge Angy Foster updated pt's daughter on 06/29, 07/01 Admission and Anticipated Discharge Date Admission Date: June 27, 2024 Subjective Doing well today no shortness of breath and no CP. No longer lightheaded/foggy Seen 10 am no urinated yet leg edema improved Physical Exam 2 Physical Exam: PHYSICAL EXAMINATION Last 24h vital signs reviewed, see documentation in flowsheet General: awake lying in bed HEENT: Normocephalic, atraumatic, pupils round and equal, sclerae anicteric, no conjunctival injection, moist mucus membranes Lungs: Normal respiratory effort. Clear to auscultation bilaterally. No RRW Heart: Regular rate and rhythm, no murmurs. No JVD Abdomen: Soft, nontender, nondistended. Bowel sounds present. Extremities: Warm, dry, well-perfused. 1+ lower extremity edema which is unchanged since yesterday. Neuro: Alert and oriented x 4, face symmetric, moves 4 extremities well Psych: Normal affect and behavior Results & Data Results & Data Vital Signs (Past 12 Hours) Vital Signs Temp Pulse Resp BP Pulse Ox O2 Del Method 07/03/24 16:30 36.7 C 74 18 126/78 93 Room Air 07/03/24 11:30 36.8 C 88 16 119/74 98 Room Air 07/03/24 07:57 36.7 C 74 16 125/68 96 Room Air Laboratory Results 06/28/24 03:25 07/03/24 06:27 PG Care Time/CCT Total # of Minutes Spent Total Time Spent with Patient: Total time spent is greater than 50% in coordination of care (as documented) at patient's floor/unit and/or counseling patient: Coding Level of Care Code 87822 SUB INP/OBS CARE 2/35MIN Diagnoses Acute on chronic systolic CHF (congestive heart failure) I50.23 Pleural effusion, right J90 Right knee pain M25.561 Heart failure with mildly reduced ejection fraction (HFmrEF) I50.22 Controlled type 2 diabetes mellitus with diabetic nephropathy, with long-term current use of insulin E11.21; Z79.4 Diabetes mellitus mcfp insulin use: with intermission coordinator use Diabetes mellitus complication status: with kidney complications Diabetes mellitus complication detail: with nephropathy CKD (chronic kidney disease) stage 4, GFR 15-29 ml/min N18.4 Non-ST elevation [place] (NSTEMI) I21.4 Elevated troponin R77.8 S/P TAVR (transcatheter aortic valve replacement) Z95.2 Biventricular ICD (implantable cardioverter-defibrillator) in place Z95.810 Ischemic cardiomyopathy I25.5 Atrial fibrillation, permanent I48.21 Acquired hypothyroidism E03.9 Hypothyroidism type: acquired (5) DM II (diabetes mellitus, type II), controlled Diabetes mellitus intermission coordinator insulin use: with intermission coordinator use Diabetes mellitus complication status: with kidney complications Diabetes mellitus complication detail: with nephropathy Qualified Code(s): E11.21 - Type 2 diabetes mellitus with diabetic nephropathy; Z79.4 - alf (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 (13) Hypothyroidism Hypothyroidism type: acquired Qualified Code(s): E03.9 - Hypothyroidism, unspecified
[2024-07-04 07:52] VITALS: TEMP 98.2
[2024-07-04] MEDS: GABAPENTIN 100 MG CAP PO SCH (08:57)
[2024-07-04 10:22] LABS: BUN Creatinine Ratio 21.4 (10-20); Calcium 9.1 mg/dl (8.6-10.3); Creatinine Clr Calc Pharmacy 21.8 ml/min; Est GFR (African American) 26.6 ml/min; Est GFR (Non-African American) 22.9 ml/min; Potassium 4.3 mmol/L (3.5-5.1)
[2024-07-04 11:28] VITALS: BP 148/78; RESP 18; O2SAT 92
--- NOTE | 2024-07-04 15:05 | Discharge Summary ---
Discharge Summary Date of Service July 04, 2024 Principal Dx & Hospital Course #1 = Principal Diagnosis (1) Acute on chronic systolic CHF (congestive heart failure): 83-year-old woman with chronic heart failure with midrange ejection fraction, history of TAVR, and coronary artery disease with recent NSTEMI and RCA stent (remote L main stent) admitted with acute on chronic heart failure diuresed with IV Bumex, dyspnea and hypoxia resolved, weight improved from 87 down to 79.9 kg CKD-4 and Cr at baseline today 1.96 Had been on bumex 2 mg po bid at home and developed volume overload so dose increased to 3 mg po bid which she tolerated well last 24h with normal potassium and slight decrease in creatinine. Continue spironolactone, carvedilol, potassium replacement Not on SGLT-2 or HERMELINDO/ARB/SNRI with poor baseline renal function. -monitor weight, edema, check BMP and mag in 1 week -has CHF clinic follow up scheduled next week For CAD recent stent continue brilinta, carvedilol, ranexa, she is statin intolerant recent NSTEMI with RCA occlusion s/p 2 NATY to the RCA lesion -- [facility], 06/25/24 prior Left main stent patent other prior stents with moderate stenoses For afib continue carvedilol and apixaban pleural effusion related to heart failure right-sided thoracentesis 07/01 - 1.5 liters of fluid removed, transudative by Lite's criteria. cytology reviewed and was negative for malignancy. Culture NGTD (2) Pleural effusion, right: see above (3) Right knee pain: osteoarthritis, APAP, topical Voltaren etc should f/u with Dr Rader post-d/c for this issue (4) Heart failure with mildly reduced ejection fraction (HFmrEF): EF 40-45% as above (5) DM II (diabetes mellitus, type II), controlled: cont lantus cont novolog a1c 7% in April (6) CKD (chronic kidney disease) stage 4, GFR 15-29 ml/min: Baseline creatinine around 22.2 Baseline CrCl 20s at baseline, improved with diuresis (7) Non-ST elevation MD (NSTEMI): hospitalized initially at [facility] after suffering falls, developed chest pain while there, then transferred to [facility] for cardiac cath when she was dx with NSTEMI by report her troponin on 06/25/24 was 37,112 cath findings -- RCA occlusion s/p 2 NATY to the RCA lesion -- again intervention performed at [facility], 06/25/24 troponins here continue to down-trend (5088 --> 3894) no new NSTEMI cont Brilinta, BB she is statin intolerant cont Ranexa (8) Elevated troponin: see above (9) S/P TAVR (transcatheter aortic valve replacement): echo this admission with well-seated valve & normal gradients (10) Biventricular ICD (implantable cardioverter-defibrillator) in place: pacing on tele no recent discharges (11) Ischemic cardiomyopathy: EF 40-45% as above (12) Atrial fibrillation, permanent: apixaban and carvedilol (13) Hypothyroidism: TSH 02/13/24 wnl cont synthroid as is Notes For Next Care Provider BMP and mag 1 week Medication Changes From Visit increased bumex Admission HPI Per Admitting Provider Ban is an 83-year-old female with past medical history of HFrEF EF 40%, HERMELINDO/ARB intolerance due to CKD, Entresto intolerance due to orthostasis, paroxysmal atrial fibrillation/flutter on Eliquis, biventricular ICD, aortic stenosis s/p TAVR, CAD on Brilinta/beta-estephania/Eliquis/Ranexa, frequent hospitalizations with diuretic resistance who had transiently agreed to hospice however deferred this after clinically improving at her last hospitalization who was referred for worsening dyspnea. Patient was recently admitted to [facility], developed chest pain and was transferred to [facility] for cardiac catheterization was found to have 95% RCA occlusion treated with PCI. Since stent placement she has been taking Bumex 2 mg daily but has continued to have worsening shortness of breath and dyspnea. Was seen at CHF clinic and was referred to the emergency department for IV diuresis, if insignificant response to diuresis was recommended by clinic to be admitted and consideration of thoracentesis. EKG on admission is ventricular paced rhythm Creatinine 1.98, baseline appears to range from 1.62.6 recently Bumex 2 mg IV given in the ER BNP elevated at 1261, recent trough appears around [id number] Troponin markedly elevated at 5088. Patient reportedly with recent cardiac catheterization at [facility], records pending is seen at the bedside with family present. She reports that she feels overall okay, but has been more short of breath in the last few days. She endor ses orthopnea. Breathing improves when sitting up. She has not had much leg swelling, but notes she never gets much leg swelling with her CHF exacerbations. She reports that she was admitted to [facility] to address a knee issue as she has followed with Dr. Rader, but she developed chest pain during her admission and was transferred to [facility] for cardiac cath for stent placement on 06/25 (2 days ago). Did contact [facility], confirmed with lab that her troponin on 06/25 was 37,112. Current troponin of 5088 is downtrending from that time She reports she has had no chest pain since her discharge from the hospital. No lightheadedness dizziness syncope or presyncope. No fever chills or sweats. No cold-like symptoms. No cough Medical History: Reviewed Medications: Reviewed Surgical History: Reviewed Family history: Reviewed Allergies: Reviewed Social History: Reviewed Code Status: DNR/DNI Discharge Exam PHYSICAL EXAMINATION Last 24h vital signs reviewed, see documentation in flowsheet General: sitting in chair alert HEENT: Normocephalic, atraumatic, pupils round and equal, sclerae anicteric, no conjunctival injection, moist mucus membranes Lungs: Normal respiratory effort. Clear to auscultation bilaterally. No RRW Heart: Regular rate and rhythm, systolic murmur, EJs visible Abdomen: Soft, nontender, nondistended. Bowel sounds present. Extremities: Warm, dry, well-perfused. 1+ lower extremity edema which slightly decreased since yesterday. R knee no warmth, bony deformity cw OA Neuro: Alert and oriented x 4, face symmetric, moves 4 extremities well Psych: Normal affect and behavior Discharge Plan Discharge Items Patient Disposition: [facility] Discharge Diagnosis: Acute on chronic systolic heart failure Activity: Resume your previous activity Weightbearing: Full weightbearing Non-emergency contact: Primary Care Provider and Procurement Assistant Call non-emergency contact if: you have any medication questions, your symptoms worsen and you have a fever Follow-up/Referrals: Ebony Alvarenga DO [Primary Care Provider] - Latrice Mcmanus PA-C [Physician Virologist] - 07/09/24 2:00 pm Diet: Carb Consistent or DM2 and Low Sodium (2gm) Fluids: 1800ml (7 cups) Addtl Attending Provider Instructions: Recent admission at [facility] for NSTEMI with RCA occlusion s/p 2 NATY to the RCA lesion -- [facility], 06/25/24 Shortly after admitted here and treated for heart failure exacerbation Became volume overloaded on bumetanide 2 mg po bid at home so dose was increased to 3 mg po bid Please check BMP in 1 week for renal function/electrolytes Follow weight 3xweek and edema, adjust diuretics as indicated PT and OT evaluate and treat Follow up with cardiology as scheduled Pending Studies at Discharge: No Stand-Alone Forms: My [facility] Skilled Items Patient informed of condition?: Yes DNR: Yes Discharge Level of Care: Skilled Communicable Disease: No Discharge Prognosis: Improving Lines: None Urinary Catheter: No Medications and DC Order Prescriptions: New insulin aspart U-100 [Novolog U-100 Insulin aspart] 100 unit/mL Solution See Rx Instructions .ROUTE .COMPLEX Qty: 0 0RF Rx Instructions: --Goal BSG Range: Low 120 mg/dL, High 160 mg/dL --Correction Factor: 40 mg/dL/unit --Carbohydrate ratio = 15 g/unit --BSGs ACHS if eating, q6h if npo insulin glargine [Lantus U-100 Insulin] 100 unit/mL Solution 10 unit subcut HS Qty: 0 0RF sennosides [Senokot] 8.6 mg Tablet 17.2 mg PO QAM Qty: 0 0RF potassium chloride 20 mEq Tablet,Er Particles/Crystals 20 meq PO BID17 Qty: 0 0RF gabapentin 100 mg Capsule 100 mg PO BID Qty: 0 0RF Brilinta 90 mg Tablet 90 mg PO BID Qty: 0 0RF polyethylene glycol 3350 [Miralax] 17 gram Powder In Packet 17 g PO DAILY Qty: 0 0RF bumetanide 1 mg Tablet 3 mg PO BID17 Qty: 0 0RF Continued cholecalciferol (vitamin D3) 25 mcg (1,000 unit) capsule 1,000 unit PO QAM trazodone 50 mg tablet 50 mg PO HS PRN (Reason: insomnia) Qty: 90 1RF Eliquis 2.5 mg tablet 2.5 mg PO BID Qty: 180 3RF (DME) insulin syringe-needle U-100 0.3 mL 31 gauge x 5/16" syringe See Rx Instructions .Route Qty: 100 3RF Rx Instructions: test three times daily (DME) FreeStyle Rossy 14 Day Sensor Kit See Rx Instructions .Route Qty: 1 5RF Rx Instructions: Testing BS 4-5 times per day calcitriol [Rocaltrol] 0.25 mcg capsule 0.25 mcg PO 3XWK Qty: 12 1RF Rx Instructions: MONDAY/MONDAY/MONDAY/ IN THE AM levothyroxine 75 mcg tablet 75 mcg PO QAM Qty: 90 1RF ondansetron HCl 8 mg tablet 8 mg PO Q8H PRN (Reason: nausea and vomiting) Qty: 30 0RF sertraline 100 mg tablet 100 mg PO DAILY Qty: 90 1RF ranolazine 500 mg tablet extended release 12 hr 500 mg PO BID Qty: 180 3RF (DME) FreeStyle Rossy 14 Day Rembert Misc See Rx Instructions .Route Qty: 6 1RF Rx Instructions: Testing BS 4-5 times per day pantoprazole [Protonix] 40 mg tablet,delayed release (DR/EC) 40 mg PO BID Qty: 180 1RF spironolactone 50 mg tablet 50 mg PO DAILY Qty: 90 1RF vitamin E 400 unit capsule 400 unit PO QAM magnesium oxide 400 mg (241.3 mg magnesium) Tablet 400 mg PO QPM Qty: 30 0RF carvedilol 12.5 mg tablet 12.5 mg PO BID Discontinued insulin asp prt-insulin aspart [Novolog Mix 70-30 U-100 Insuln] 100 unit/mL (70-30) solution 15 - 30 unit SUBCUT AMPM Qty: 30 5RF Rx Instructions: Per home sliding scale potassium chloride 20 mEq tablet,ER particles/crystals 40 meq PO DAILY Qty: 2 0RF Brilinta 60 mg tablet 60 mg PO BID Qty: 90 3RF bumetanide 2 mg tablet 2 mg PO DAILY PRN (Reason: fluid overload) Qty: 200 3RF senna 8.6 mg capsule 8.6 mg PO DAILY PRN (Reason: constipation) Qty: 10 0RF polyethylene glycol 3350 [Miralax] 17 gram/dose Powder 17 g PO TID Qty: 119 0RF gabapentin 300 mg capsule 300 mg PO TID Discharge Orders: Discharge Order- CHF (Routine); Ordered 07/04/24 Ordered By: Shira Ross Admission Data Admit Date/Time: 06/27/24 13:10 Attending Provider: Shira Ross Admit Provider: Kin Lopez Primary Care Provider: Ebony Alvarenga Other Providers: Kin Lopez; Boby Benitez; Kisha Baxter; [facility] Hospital Stay Data Consultations 06/27/24 12:25 ED Decision to Admit Stat 06/27/24 16:12 Consult Cardiology Routine 06/30/24 08:35 Consult Pulmonology Routine Diagnostic Imagining Performed 06/30/24 08:46 US point of care ultrasound Urgent Pending Results Patient Have Any Pending Studies at Discharge: No Discharge Instructions Given to Patient (Per Discharging Provider) Recent admission at [facility] for NSTEMI with RCA occlusion s/p 2 NATY to the RCA lesion -- [facility], 06/25/24 Shortly after admitted here and treated for heart failure exacerbation Became volume overloaded on bumetanide 2 mg po bid at home so dose was increased to 3 mg po bid Please check BMP in 1 week for renal function/electrolytes Follow weight 3xweek and edema, adjust diuretics as indicated PT and OT evaluate and treat Follow up with cardiology as scheduled Total Time Total Time Spent Total Time Spent (In Minutes): I personally spent: 40 minutes today on clinical care activities including: reviewing chart notes and vital signs reviewing labs discussion with manager critical care examining and counseling the patient writing orders, discharge orders and instructions documentation Coding Level of Care Code 79601 INP/OBS DISCH >30 MIN Diagnoses Acute on chronic systolic CHF (congestive heart failure) I50.23 Pleural effusion, right J90 Right knee pain M25.561 Heart failure with mildly reduced ejection fraction (HFmrEF) I50.22 Controlled type 2 diabetes mellitus with diabetic nephropathy, with long-term current use of insulin E11.21; Z79.4 Diabetes mellitus fdc insulin use: with fdc use Diabetes mellitus complication status: with kidney complications Diabetes mellitus complication detail: with nephropathy CKD (chronic kidney disease) stage 4, GFR 15-29 ml/min N18.4 Non-ST elevation MD (NSTEMI) I21.4 Elevated troponin R77.8 S/P TAVR (transcatheter aortic valve replacement) Z95.2 Biventricular ICD (implantable cardioverter-defibrillator) in place Z95.810 Ischemic cardiomyopathy I25.5 Atrial fibrillation, permanent I48.21 Acquired hypothyroidism E03.9 Hypothyroidism type: acquired
[2024-07-04 17:28] VITALS: PULSE 74
== END 2024-07-04 18:22 | DRG 280 ==
LOC: ED 11:12 → SUATTDRO 13:10 → 2S 13:10
DX: J91.8 Pleural effusion in other conditions classified elsewhere; Z66 Do not resuscitate; I25.5 Ischemic cardiomyopathy; Z95.2 Presence of prosthetic heart valve; Z79.890 Hormone replacement therapy; Z95.5 Presence of coronary angioplasty implant and graft; I13.0 Hypertensive heart and chronic kidney disease with heart failure and stage 1 through stage 4 chronic kidney disease, or unspecified chronic kidney disease; Z79.899 Other long term (current) drug therapy; Z91.048 Other nonmedicinal substance allergy status; Z82.49 Family history of ischemic heart disease and other diseases of the circulatory system; J98.4 Other disorders of lung; I27.22 Pulmonary hypertension due to left heart disease; Z79.01 Long term (current) use of anticoagulants; E03.9 Hypothyroidism, unspecified; Z79.4 Long term (current) use of insulin; N18.4 Chronic kidney disease, stage 4 (severe); M17.11 Unilateral primary osteoarthritis, right knee; I21.4 Non-ST elevation (NSTEMI) myocardial infarction; Z88.8 Allergy status to other drugs, medicaments and biological substances; Z88.5 Allergy status to narcotic agent; Z88.6 Allergy status to analgesic agent; Z79.02 Long term (current) use of antithrombotics/antiplatelets; I25.10 Atherosclerotic heart disease of native coronary artery without angina pectoris; Z86.79 Personal history of other diseases of the circulatory system; Z95.810 Presence of automatic (implantable) cardiac defibrillator; I48.21 Permanent atrial fibrillation; I50.23 Acute on chronic systolic (congestive) heart failure; Z91.040 Latex allergy status; T82.855A Stenosis of coronary artery stent, initial encounter; E11.9 Type 2 diabetes mellitus without complications; I08.1 Rheumatic disorders of both mitral and tricuspid valves

== ENCOUNTER 2024-07-29 11:36 | Inpatient (IN) ==
--- NOTE | 2024-07-29 12:20 | Electrocardiogram Report ---
Test Reason : Blood Pressure : */* mmHG Vent. Rate : 71 BPM Atrial Rate : 60 BPM P-R Int : * ms QRS Dur : 168 ms QT Int : 478 ms P-R-T Axes : * -81 96 degrees QTcB Int : 519 ms Ventricular-paced rhythm Biventricular pacemaker detected Abnormal ECG When compared with ECG of 27-Jun-2024 11:35, No significant change was found Confirmed by Miller Rice ([id number]) on 07/29/2024 12:20:24 PM Referred By: Confirmed By: Miller Rice
[2024-07-29 12:26] LABS: Basophils # (auto) 0.05 K/uL (0.00-0.20); Basophils % (auto) 0.6 %; Eosinophils # (auto) 0.13 K/uL (0.00-0.50); Eosinophils % (auto) 1.6 %; Hematocrit (blood only) 37.7 % (37.0-47.0); Immature Granulocytes % (auto) 1.2 %; Lymphocytes # (auto) 1.89 K/uL (1.20-3.40); Lymphocytes % (auto) 22.6 %; Mean Corpuscular Hemoglobin 29.6 pg (25.0-34.0); Mean Corpuscular Hgb Conc 31.8 g/dL (32.0-36.0); Mean Corpuscular Volume 93.1 fL (80.0-100.0); Mean Platelet Volume 10.7 fL (9.4-12.4); Monocytes % (auto) 10.8 %; Neutrophils # (auto) 5.29 K/uL (1.40-6.50); Neutrophils % (auto) 63.2 %; Platelet Count 268 K/uL (130-400); RDW Coefficient of Variation 15.8 % (11.5-14.5); Red Blood Count 4.05 M/uL (4.20-5.40); White Blood Count 8.36 K/ul (4.8-10.8)
[2024-07-29 12:46] LABS: Troponin I High Sensitivity 42.4 pg/ml (0-14)
[2024-07-29 12:50] LABS: Chloride 95 mmol/L (98-107); Potassium 4.1 mmol/L (3.5-5.1); Sodium 135 mmol/L (136-145)
[2024-07-29 13:13] LABS: INR 1.1 (0.9-1.1); Partial Thromboplastin Ratio 1.1; Partial Thromboplastin Time 29 Seconds (21-31); Prothrombin Time 11.8 Seconds (9.0-12.0)
[2024-07-29 13:26] LABS: Alanine Aminotransferase 9 U/L (7-52); Albumin Globulin Ratio 1.1 (0.9-2); Albumin Level 3.9 gm/dl (3.4-5.0); Alkaline Phosphatase 110 U/L (34-104); Anion Gap 13 (3-11); Aspartate Aminotransferase 16 U/L (13-39); BUN Creatinine Ratio 19.5 (10-20); Bilirubin,Total 0.8 mg/dl (0.2-1.0); Blood Urea Nitrogen 39 mg/dl (6-23); Calcium 9.2 mg/dl (8.6-10.3); Carbon Dioxide 27 mmol/L (21-32); Globulin 3.5 gm/dl (2.5-4.0); Glucose 199 mg/dl (70-99(Fasting)); Total Protein 7.4 gm/dl (6.0-8.3)
--- NOTE | 2024-07-29 13:32 | XRay Report ---
XR chest 1V not portable CLINICAL HISTORY: Chest pain, nonspecific TECHNIQUE: Single frontal radiograph of the chest was obtained. Comparison: Comparison is made to chest radiograph 07/01/2024 FINDINGS: Pacemaker defibrillator is seen. Cardiomegaly is noted. The aortic arch is calcified. Aortic valvular prosthesis is seen. Right lower lung airspace opacity is seen. Trace left and moderate right pleural effusion is seen. IMPRESSION: Moderate right and trace left pleural effusion. This represents increased from prior exam. ACT 112: Negative or not required by law. Electronically signed by: Gato Nagel M.D. 07/29/2024 1:30 PM
[2024-07-29 14:53] LABS: Troponin I High Sensitivity 42.4 pg/ml (0-14)
--- NOTE | 2024-07-29 15:11 | CT Scan Report ---
CT OF THE HEAD WITHOUT CONTRAST CLINICAL HISTORY: Headache. COMPARISON STUDY: Head CT February 13, 2024. TECHNIQUE: Helical axial images of the head were obtained without IV contrast. Automated exposure con trol was utilized for the study. A dose lowering technique was utilized adhering to the principles o f ALARA. FINDINGS: No acute intracranial hemorrhage, midline shift or mass effect is present. The ventricular system is unremarkable. The basal cisterns are patent. No extra-axial collections are present. There are no findings to suggest acute dural sinus thrombosis or acute territorial infarct. No significant calvarial abnormalities are present. Visualized portions of the sinuses and mastoid air cells are eneraj ar. IMPRESSION: No acute intracranial findings. ACT 112: Negative or not required by law. Electronically signed by: Cali Jacobo M.D. 07/29/2024 3:10 PM
--- NOTE | 2024-07-29 15:29 | CT Scan Report ---
CT abd pelvis wo con CLINICAL HISTORY: nv TECHNIQUE: Helical axial images of the abdomen and pelvis were obtained. Automated dose lowering tech niques and/or adjustment according to patient size were utilized for this exam. This exam was perfor med without intravenous contrast. CT DOSE: 2085.9 mGy.cm COMPARISON: Comparison is made to CT abdomen pelvis 01/31/2024 FINDINGS: Lower chest: Partial evaluation of moderate right and small left pleural effusion. Biatrial enlargem ent and aortic valvular prosthesis are seen. Liver: Unremarkable. No focal lesions are seen. Gallbladder and biliary tree: Patient is status post cholecystectomy. No intra- or extrahepatic bilia ry ductal dilation. Pancreas: Unremarkable, no focal lesions. Spleen: Unremarkable. Adrenals: Unremarkable. Kidneys and ureters: Unremarkable. Bladder: Limited evaluation due to underdistention. Reproductive organs: Unremarkable. Bowel: Unremarkable. Lymph nodes Retroperitoneal: Unremarkable. Pelvic: Unremarkable. Mesenteric: Unremarkable. Peritoneum: Trace free fluid in the pelvis is likely physiologic. Vessels: Atherosclerotic calcifications are seen. Abdominal wall: Unremarkable. Bones: Degenerative changes in the visualized spine. Compression deformity of L1 is unchanged. IMPRESSION: 1. No acute abnormalities to explain nausea and vomiting. In particular no evidence of bowel obstruc tion. 2. Moderate right and small left pleural effusion. Additional incidental findings as above. ACT 112: Negative or not required by law. Electronically signed by: Gato Nagel M.D. 07/29/2024 3:28 PM
--- NOTE | 2024-07-29 15:43 | Emergency Department Note ---
History of Present Illness General Chief complaint: Dehydration Stated complaint: FLUID IN LUNGS, DEHYDRATED, VOMITING, DIARRHEA Time Seen by Provider: 07/29/24 13:58 Source: patient and family (Daughter) History of Present Illness Provider complaint: Shortness of breath nausea vomiting 83-year-old female on Eliquis and Brilinta presents emergency department for shortness of breath nausea and vomiting. Patient and daughter report this has been going worse over the last 2 weeks. They report they were recently at [facility] and were told that she had a large right-sided pleural effusion which he wanted to transfer her to [place] for and have the effusion drained however the patient did not want to go to [place] and wanted to come here. She reports that she has been having excessive nausea and vomiting. No abdominal pain. No chest pain. She reports dyspnea on exertion. No hematemesis coffee-ground emesis bilious vomiting. No fever. No melena or hematochezia. Home Medications Medication Instructions Recorded Confirmed Type vitamin E 268 mg (400 unit) capsule 400 unit PO QAM 03/29/20 07/29/24 History cholecalciferol (vitamin D3) 25 1,000 unit PO QAM 05/17/21 07/29/24 History mcg (1,000 unit) capsule trazodone 50 mg tablet 50 mg PO HS PRN insomnia #90 tabs 06/23/22 07/29/24 Rx flash glucose scanning reader #6 ea 07/24/23 06/27/24 Rx (FreeStyle Rossy 14 Day [place]) apixaban 2.5 mg tablet (Eliquis) 2.5 mg PO BID #180 tabs 10/30/23 07/29/24 Rx ranolazine 500 mg tablet,extended 500 mg PO BID #180 tabs 11/14/23 07/29/24 Rx release,12 hr magnesium oxide 400 mg (241.3 mg 400 mg PO QPM #30 tabs 01/22/24 07/29/24 Rx magnesium) tablet insulin syringe-needle U-100 0.3 #100 ea 01/23/24 06/27/24 Rx mL 31 gauge x 5/16" pantoprazole 40 mg tablet,delayed 40 mg PO BID #180 tabs 01/30/24 07/29/24 Rx release (Protonix) spironolactone 50 mg tablet 50 mg PO DAILY #90 tabs 04/29/24 07/29/24 Rx flash glucose sensor (FreeStyle #1 ea 05/09/24 06/27/24 Rx Rossy 14 Day Sensor kit) calcitriol 0.25 mcg capsule 0.25 mcg PO 3XWK #12 caps 05/20/24 07/29/24 Rx (Rocaltrol) levothyroxine 75 mcg tablet 75 mcg PO QAM #90 tabs 05/31/24 07/29/24 Rx ondansetron HCl 8 mg tablet 8 mg PO Q8H PRN nausea and 05/31/24 07/29/24 Rx vomiting #30 tabs sertraline 100 mg tablet 100 mg PO DAILY #90 tabs 06/12/24 07/29/24 Rx insulin aspart U-100 100 unit/mL See Rx Instructions .Route 07/04/24 07/29/24 Rx subcutaneous solution (Novolog .COMPLEX #0 mL U-100 Insulin aspart) insulin glargine 100 unit/mL 10 unit (0.1 mL) subcut HS #0 mL 07/04/24 07/29/24 Rx subcutaneous solution (Lantus U-100 Insulin) potassium chloride 20 mEq 20 meq PO BID17 #0 tabs 07/04/24 07/29/24 Rx tablet,extended release(part/cryst) ticagrelor 90 mg tablet (Brilinta) 90 mg PO BID #0 tabs 07/04/24 07/29/24 Rx bumetanide 1 mg tablet 2 mg (2 x 1 mg) PO BID17 #120 tabs 07/25/24 07/29/24 Rx carvedilol 3.125 mg tablet 3.125 mg PO BID 07/29/24 07/29/24 History gabapentin 100 mg capsule 100 mg PO HS PRN Leg pain 07/29/24 07/29/24 History polyethylene glycol 3350 17 gram 17 g PO HS PRN Bowel movements 07/29/24 07/29/24 History oral powder packet (Miralax) sennosides 8.6 mg tablet (Senokot) 8.6 mg PO HS PRN Bowel movements 07/29/24 07/29/24 History Allergies Allergy/AdvReac Type Severity Reaction Status Date / Time adhesive Allergy Intermediate REDNESS Verified 07/29/24 17:05 AND IRRITATION FROM PAIN PATCH, TAPE latex Allergy Intermediate ALLERGIC Verified 07/29/24 17:05 TO LATEX TAPE/RASH/ITCHING morphine Allergy Intermediate swelling Verified 07/29/24 17:05 nausea vomiting olmesartan Allergy Unknown UNKNOWN Verified 07/25/24 13:55 benzonatate AdvReac Intermediate confusion Verified 07/25/24 13:55 [From Giovanni Brennan] dulaglutide [From Trulicity] AdvReac Intermediate AFFECTS Verified 07/29/24 17:05 MUSCLES exenatide [From Byetta] AdvReac Intermediate Diarrhea Verified 07/29/24 17:05 ezetimibe AdvReac Intermediate MUSCLE Verified 07/25/24 13:55 ACHES glipizide AdvReac Intermediate Diarrhea Verified 07/29/24 17:05 glyburide AdvReac Intermediate Diarrhea Verified 07/29/24 17:05 lisinopril AdvReac Intermediate LIGHTHEADED Verified 07/29/24 17:05 AND DIZZY losartan AdvReac Intermediate dizziness Verified 07/25/24 13:55 metformin AdvReac Intermediate Diarrhea Verified 07/29/24 17:05 pioglitazone AdvReac Intermediate DIARRHEA Verified 07/29/24 17:05 NAUSEA sitagliptin [From Januvia] AdvReac Intermediate Diarrhea Verified 07/29/24 17:05 Vobwlam-RQR-ZuE Reductase AdvReac Intermediate myalgias Verified 07/29/24 17:05 Inhibitor and [Iorpldm-Hqj-Yut Reductase weakness Inhibitor] aspirin AdvReac Mild GI SYMPTOMS Verified 07/25/24 13:55 Past Med/Surg History Problem List (Updated 07/29/24 @ 17:59 by Get Cano MD) Nausea, vomiting, and diarrhea Pleural effusion, right (Acute) Non-ST elevation [place] (NSTEMI) Atrial fibrillation, permanent Heart failure with mildly reduced ejection fraction (HFmrEF) (Acute) Anemia Unstable angina Ambulatory dysfunction (Acute) Urinary incontinence Hematuria Osteoarthritis Hx of atrioventricular node ablation Tricuspid regurgitation Statin myopathy Antiplatelet or antithrombotic long-term use Hyperlipidemia Depression DM II (diabetes mellitus, type II), controlled Esophageal spasm Valvular heart disease Mitral regurgitation Occlusion and stenosis of unspecified carotid artery (Acute) Right rotator cuff tear CKD (chronic kidney disease) stage 4, GFR 15-29 ml/min (Acute) Restrictive lung disease Vitamin D deficiency Chronic anticoagulation (Acute) Myalgia due to statin Stenosis of left internal carotid artery S/P carotid endarterectomy Left side 09/27/21 Malignant neoplasm of central portion of right breast in female, estrogen receptor positive (Chronic 08/17/21) PAF (paroxysmal atrial fibrillation) Breast cancer, right Right breast mastectomy 09/17/[address] [facility] Chronic combined systolic and diastolic CHF (congestive heart failure) (Chronic) EF 40% per 10/16/21 ECHO Pulmonary hypertension RVSP 50-60mmHg on 12/2023 ECHO S/P coronary artery stent placement (10/2018) NATY prox mid LAD Ischemic cardiomyopathy Insomnia Biventricular ICD (implantable cardioverter-defibrillator) in place (04/30/20) Medtronic implanted 04/30/2020. 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 COMMUNICATIONS EQUIPMENT OPERATOR and stenting of right SFA, and COMMUNICATIONS EQUIPMENT OPERATOR of left SFA and common femoral artery Spondylosis (Acute) GERD (gastroesophageal reflux disease) Hypothyroidism Left bundle branch block Bilateral carotid artery stenosis H/o bilateral CEAs in 2016 Per 07/2021 vascular note- carotid ultrasound from office visit showed patent right CEA with velocities suggesting 50-59% stenosis restenosis Patent left CEA with velocities suggesting 99% restenosis - had re-do of left CEA 09/27/21 Medical History Acute exacerbation of CHF (congestive heart failure) Orthostasis Acute kidney injury superimposed on chronic kidney disease Nausea and vomiting after administration of anesthetic agent severe PONV s/p Left carotid surgery 09/27/[address] [facility] History of CVA (cerebrovascular accident) Had RUE weakness and numbness after 09/17/21 breast surgery- CT scan of head negative; unable to do MRI due to ICD Per PCP records 10/22/21= "[place] her post op RUE sx related to possible small stroke/TIA" Subclavian artery stenosis Rheumatoid arthritis No medications Followed with rheum in the past- no recent issues Chronic kidney disease STAGE IV-F/U DR SALINAS Diabetes mellitus, type 2 Glucose fluctuates SOB (shortness of breath) on exertion DVT (deep venous thrombosis) LOWER LEG 2019 Aortic stenosis, severe S/p TAVR 10/2019 NSTEMI (non-ST elevated myocardial infarction) Most recent 12/2019 (mild per patient) Surgical History S/P right knee arthroscopy (04/2024) S/P AV hiren ablation (06/30/22) H/O heart artery stent H/O colonoscopy History of left-sided carotid endarterectomy (09/27/21) redo L CEA, Dr Bateman Status post partial mastectomy of right breast (09/17/21) 09/17/21 - Done under [place] with LMA #4. Atraumatic LMA insertion. Magnet placed secondary to pacemaker. Right Breast Partial Mastectomy with [place] Under Cutting Machine Operator Localization, Right Axillary [place] Lymph Node Biopsy(Right) - Hua Acosta, DO History of cardiac cath TOTAL 6? STENTS- 2018 and 2019 S/P coronary artery stent placement (10/2017) NATY to mid LAD S/P carotid endarterectomy B/l 2016 S/P thoracentesis (03/2020) b/l d/t CHF S/P angioplasty (02/03/21) COMMUNICATIONS EQUIPMENT OPERATOR L SFA History of oophorectomy History of hysterectomy History of cholecystectomy H/O: section History of cataract surgery right and left History of appendectomy Family History Daughter Coronary heart disease Cardiac stent Diabetes Mother , 83yo Diabetes Family history of hypercholesterolemia Myocardial infarction Hypertension Stroke Brother Colorectal cancer 1/2 brother Father , Accident in war Brother Diabetes 1/2 brother;Complications of DM Family/Other Myocardial infarction 1/2 sister Son Coronary heart disease Cardiac stent Hypertension Other Pacemaker Denies family history of Ovarian cancer Prostate cancer Breast cancer Social History Smoking Status: Never smoker Second Hand Exposure: No; Do You Dip or Chew Tobacco: No; Hx Alcohol Use: No Hx Substance Use: No Preferred Language: Nepali Communication Ability: Effective Visual Impairment: No Limitations Hearing Ability: Hard of Hearing Aluminum Hydroxide Process Operator Required: No Beliefs That Will Affect Care: None marital status: / marital status details: passed 2000 Current Living Situation: Alone current occupational status: retired 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 How many Children do You have: 2 Feels Safe at Home: Yes Diet: regular caffeine: Yes (1 cup/day) during the past year weight has: remained stable Dental Care, Regularly: No Physical Activity Frequency: Daily Seatbelt Use: always Assistive Devices: Cane and Walker Physical Exam Vital Signs Vital Signs - 24 hr 07/29/24 11:50 07/29/24 13:55 07/29/24 14:08 Temperature 36.8 C Temperature Source Temporal Artery Scan Pulse Rate 76 73 Pulse Rate [Right Finger] 76 Respiratory Rate 16 24 Respiratory Effort / Characteristics Non-Labored Spontaneous Non-Labored Spontaneous Respiratory Depth Normal Normal Respiratory Pattern Regular Regular Blood Pressure 167/94 H Blood Pressure [Right Arm] 170/85 H Blood Pressure Mean 118 Blood Pressure Mean [Right Arm] 113 Blood Pressure Position Sitting Pulse Oximetry 95 95 Oxygen Delivery Method Room Air Room Air Sepsis Recent Fever Within 48 Hours No Sepsis New/Unexplained Change in Mental Status N/A Sepsis Action Taken by Nursing No Action Required 07/29/24 16:31 Temperature Temperature Source Pulse Rate Pulse Rate [Right Finger] 73 Respiratory Rate 20 Respiratory Effort / Characteristics Non-Labored Spontaneous Respiratory Depth Normal Respiratory Pattern Blood Pressure Blood Pressure [Right Arm] 163/82 H Blood Pressure Mean Blood Pressure Mean [Right Arm] 109 Blood Pressure Position Pulse Oximetry 96 Oxygen Delivery Method Room Air Sepsis Recent Fever Within 48 Hours Sepsis New/Unexplained Change in Mental Status Sepsis Action Taken by Nursing Physical Exam GENERAL: oriented to person, place, and time. appears well-developed and well- nourished. HENT: Exam performed. - Head: Normocephalic and atraumatic. EYES: Conjunctivae and EOM are normal. Right eye exhibits no discharge. Left eye exhibits no discharge. No scleral icterus. NECK: Normal range of motion. Neck supple. No JVD present. CV: Normal rate, regular rhythm, normal heart sounds and intact distal pulses. There is no peripheral edema. Palpable radial pulses bue. PULM/CHEST: Diminished right-sided breath sounds. ABD: The abdomen is soft. There is no tenderness. NEURO: Motor and sensation grossly intact. SKIN: Skin is warm and dry. He is not diaphoretic. PSYCH: normal mood and affect. Behavior is normal. Judgment and thought content normal. Course Course 1358: The patient was evaluated in room A2. A complete history and physical exam was performed Cardiac monitoring: An order was placed for continuous cardiac monitoring. The monitor shows a rate of 70 with paced rhythm interpreted by me 1745: Vital signs stable. Labs are remarkable for creatinine of 2 which is at baseline. High-sensitivity troponin 42.4 x 2. Patient has chronically elevated high-sensitivity troponin. BNP 1158. Chest x-ray shows right-sided pleural effusion. CT head and CT abdomen unremarkable. [facility] Discussed case with Dr. Lopez who will evaluate the patient for admission as well as diuresis. Medical Decision Making Medical Records Attestation: I reviewed the patient's medical records. External medical records reviewed. Patient was admitted from June 27 to July 04, 2024 for a right-sided pleural effusion and CHF exacerbation. Patient had a thoracentesis performed by pulmonology and the pleural fluid appeared to be transudative. Laboratory Data Attestation: I reviewed the patient's lab results. 07/29/24 12:04 07/29/24 12:04 Lab Results 07/29/24 07/29/24 Range/Units 12:04 14:17 WBC 8.36 (4.8-10.8) K/ul RBC 4.05 L (4.20-5.40) M/uL Hgb 12.0 (12.0-16.0) g/dl Hct 37.7 (37.0-47.0) % MCV 93.1 (80.0-100.0) fL MCH 29.6 (25.0-34.0) pg MCHC 31.8 L (32.0-36.0) g/dL RDW Std Deviation 54.0 H (36.4-46.3) fL RDW Coeff of Manuela 15.8 H (11.5-14.5) % Plt Count 268 (130-400) K/uL MPV 10.7 (9.4-12.4) fL Immature Gran % (Auto) 1.2 % Neut % (Auto) 63.2 % Lymph % (Auto) 22.6 % [place] % (Auto) 10.8 % Eos % (Auto) 1.6 % Baso % (Auto) 0.6 % Neut # (Auto) 5.29 (1.40-6.50) K/uL Lymph # (Auto) 1.89 (1.20-3.40) K/uL [place] # (Auto) 0.90 H (0.11-0.59) K/uL Eos # (Auto) 0.13 (0.00-0.50) K/uL Baso # (Auto) 0.05 (0.00-0.20) K/uL Immature Gran # (Auto) 0.10 (0.01-0.20) K/uL PT 11.8 (9.0-12.0) Seconds INR 1.1 (0.9-1.1) APTT 29 (21-31) Seconds PTT Ratio 1.1 Sodium 135 L (136-145) mmol/L Potassium 4.1 (3.5-5.1) mmol/L Chloride 95 L (98-107) mmol/L Carbon Dioxide 27 (21-32) mmol/L Anion Gap 13 H (3-11) BUN 39 H (6-23) mg/dl Creatinine 2.00 H (0.6-1.2) mg/dl Est Cr Clr Drug Dosing Not Reportable eGFR 24.18 BUN/Creatinine Ratio 19.5 (10-20) Glucose 199 H (70-99(Fasting)) mg/dl Calcium 9.2 (8.6-10.3) mg/dl Magnesium 2.1 2.1 (1.7-2.4) mg/dl Total Bilirubin 0.8 (0.2-1.0) mg/dl AST 16 (13-39) U/L ALT 9 (7-52) U/L Alkaline Phosphatase 110 H (34-104) U/L Troponin I High Sens 42.4 H 42.4 H (0-14) pg/ml B-Natriuretic Peptide 1158 H (0-100) pg/ml Total Protein 7.4 (6.0-8.3) gm/dl Albumin 3.9 (3.4-5.0) gm/dl Globulin 3.5 (2.5-4.0) gm/dl Albumin/Globulin Ratio 1.1 (0.9-2) Imaging Data Attestation: I personally reviewed and interpreted this imaging study as follows: My Impression: Chest x-ray: Right-sided effusion worse when compared to the chest x-ray performed on June 2024. Radiologist's Impression: Chest X-Ray 07/29/24 11:59 XR chest 1V not portable CLINICAL HISTORY: Chest pain, nonspecific TECHNIQUE: Single frontal radiograph of the chest was obtained. Comparison: Comparison is made to chest radiograph 07/01/2024 FINDINGS: Pacemaker defibrillator is seen. Cardiomegaly is noted. The aortic arch is calcified. Aortic valvular prosthesis is seen. Right lower lung airspace opacity is seen. Trace left and moderate right pleural effusion is seen. IMPRESSION: Moderate right and trace left pleural effusion. This represents increased from prior exam. ACT 112: Negative or not required by law. Electronically signed by: Gato Nagel M.D. 07/29/2024 1:30 PM Abdomen/Pelvis CT 07/29/24 14:32 CT abd pelvis wo con CLINICAL HISTORY: nv TECHNIQUE: Helical axial images of the abdomen and pelvis were obtained. Automated dose lowering techniques and/or adjustment according to patient size were utilized for this exam. This exam was performed without intravenous contrast. CT DOSE: 2085.9 mGy.cm COMPARISON: Comparison is made to CT abdomen pelvis 01/31/2024 FINDINGS: Lower chest: Partial evaluation of moderate right and small left pleural effusion. Biatrial enlargement and aortic valvular prosthesis are seen. Liver: Unremarkable. No focal lesions are seen. Gallbladder and biliary tree: Patient is status post cholecystectomy. No intra- or extrahepatic biliary ductal dilation. Pancreas: Unremarkable, no focal lesions. Spleen: Unremarkable. Adrenals: Unremarkable. Kidneys and ureters: Unremarkable. Bladder: Limited evaluation due to underdistention. Reproductive organs: Unremarkable. Bowel: Unremarkable. Lymph nodes Retroperitoneal: Unremarkable. Pelvic: Unremarkable. Mesenteric: Unremarkable. Peritoneum: Trace free fluid in the pelvis is likely physiologic. Vessels: Atherosclerotic calcifications are seen. Abdominal wall: Unremarkable. Bones: Degenerative changes in the visualized spine. Compression deformity of L1 is unchanged. IMPRESSION: 1. No acute abnormalities to explain nausea and vomiting. In particular no evidence of bowel obstruction. 2. Moderate right and small left pleural effusion. Additional incidental findings as above. ACT 112: Negative or not required by law. Electronically signed by: Gato Nagel M.D. 07/29/2024 3:[address] 07/29/24 14:32 CT OF THE HEAD WITHOUT CONTRAST CLINICAL HISTORY: Headache. COMPARISON STUDY: Head CT February 13, 2024. TECHNIQUE: Helical axial images of the head were obtained without IV contrast. Automated exposure control was utilized for the study. A dose lowering technique was utilized adhering to the principles of ALARA. FINDINGS: No acute intracranial hemorrhage, midline shift or mass effect is present. The ventricular system is unremarkable. The basal cisterns are patent. No extra-axial collections are present. There are no findings to suggest acute dural sinus thrombosis or acute territorial infarct. No significant calvarial abnormalities are present. Visualized portions of the sinuses and mastoid air cells are clear. IMPRESSION: No acute intracranial findings. ACT 112: Negative or not required by law. Electronically signed by: Cali Jacobo M.D. 07/29/2024 3:10 PM ECG Data Attestation: I personally reviewed and interpreted this ECG as follows: Additional Comments: Ventricular paced rhythm with a rate of 72. QRS [address] [facility] Narrative 1358: The patient was evaluated in room A2. A complete history and physical exam was performed Cardiac monitoring: An order was placed for continuous cardiac monitoring. The monitor shows a rate of 70 with paced rhythm interpreted by me 1745: Vital signs stable. Labs are remarkable for creatinine of 2 which is at baseline. High-sensitivity troponin 42.4 x 2. Patient has chronically elevated high-sensitivity troponin. BNP 1158. Chest x-ray shows right-sided pleural effusion. CT head and CT abdomen unremarkable. Patient will be admitted to the [facility] hospitalist team. Discussed case with Dr. Lopez who will evaluate the patient for admission as well as diuresis. Impression & Plan Heart failure with mildly reduced ejection fraction (HFmrEF), Pleural effusion, right Discharge Plan Visit Data Chief Complaint: Dehydration Stated Complaint: FLUID IN LUNGS, DEHYDRATED, VOMITING, DIARRHEA ED Provider: Get Cano Discharge Problem: Heart failure with mildly reduced ejection fraction (HFmrEF), Pleural effusion, right Patient Disposition: Admitted As Inpatient Forms Stand Alone Forms: My [facility] Prescriptions Prescriptions: No Action cholecalciferol (vitamin D3) 25 mcg (1,000 unit) capsule 1,000 unit PO QAM trazodone 50 mg tablet 50 mg PO HS PRN (Reason: insomnia) Qty: 90 1RF Eliquis 2.5 mg tablet 2.5 mg PO BID Qty: 180 3RF (DME) insulin syringe-needle U-100 0.3 mL 31 gauge x 5/16" syringe See Rx Instructions .Route Qty: 100 3RF Rx Instructions: test three times daily (DME) FreeStyle Rossy 14 Day Sensor Kit See Rx Instructions .Route Qty: 1 5RF Rx Instructions: Testing BS 4-5 times per day calcitriol [Rocaltrol] 0.25 mcg capsule 0.25 mcg PO 3XWK Qty: 12 1RF Rx Instructions: MONDAY/MONDAY/MONDAY/ IN THE AM levothyroxine 75 mcg tablet 75 mcg PO QAM Qty: 90 1RF ondansetron HCl 8 mg tablet 8 mg PO Q8H PRN (Reason: nausea and vomiting) Qty: 30 0RF sertraline 100 mg tablet 100 mg PO DAILY Qty: 90 1RF ranolazine 500 mg tablet extended release 12 hr 500 mg PO BID Qty: 180 3RF (DME) FreeStyle Rossy 14 Day [place] Misc See Rx Instructions .Route Qty: 6 1RF Rx Instructions: Testing BS 4-5 times per day pantoprazole [Protonix] 40 mg tablet,delayed release (DR/EC) 40 mg PO BID Qty: 180 1RF spironolactone 50 mg tablet 50 mg PO DAILY Qty: 90 1RF bumetanide 1 mg tablet 2 mg PO BID17 Qty: 120 0RF vitamin E 400 unit capsule 400 unit PO QAM magnesium oxide 400 mg (241.3 mg magnesium) Tablet 400 mg PO QPM Qty: 30 0RF potassium chloride 20 mEq Tablet,Er Particles/Crystals 20 meq PO BID17 Qty: 0 0RF Brilinta 90 mg Tablet 90 mg PO BID Qty: 0 0RF insulin glargine [Lantus U-100 Insulin] 100 unit/mL Solution 10 unit subcut HS Qty: 0 0RF insulin aspart U-100 [Novolog U-100 Insulin aspart] 100 unit/mL Solution See Rx Instructions .ROUTE .COMPLEX Qty: 0 0RF Rx Instructions: --Goal BSG Range: Low 120 mg/dL, High 160 mg/dL --Correction Factor: 40 mg/dL/unit --Carbohydrate ratio = 15 g/unit --BSGs ACHS if eating, q6h if npo carvedilol 3.125 mg tablet 3.125 mg PO BID sennosides [Senokot] 8.6 mg tablet 8.6 mg PO HS PRN (Reason: Bowel movements) polyethylene glycol 3350 [Miralax] 17 gram powder in packet 17 g PO HS PRN (Reason: Bowel movements) gabapentin 100 mg capsule 100 mg PO HS PRN (Reason: Leg pain) Referrals Referrals: Ebony Alvarenga DO [Primary Care Provider] -
--- NOTE | 2024-07-29 16:12 | History & Physical Report ---
Date of Service July 29, 2024 Assessment & Plan (1) Pleural effusion, right: Plan: Patient reports she has been unable to take p.o. medications due to a GI illness that began on 07/25 Chest x-ray on arrival reveals moderate right and trace left pleural effusions; increased from prior Prior thoracentesis on 07/02; cytology negative for malignancy Likely transudative; ?secondary to CHF; will not opt for recurrent thoracentesis at this time Suspect fluid reaccumulation is at least partially due to patient's inability to take Bumex over the past few days Will restart on Bumex 2 mg IV BID17 Continue p.o. spironolactone as tolerated Daily K supplementation (can be given IV if not tolerating p.o. medications) However, patient does report that she tolerated p.o. meds without vomiting on the morning of 07/29 Daily weights Strict I&O monitoring 1500 mL fluid restriction A.m. CBC, BMP, mag (2) Nausea, vomiting, and diarrhea: Plan: No leukocytosis; afebrile; patient reports she is starting to feel better on 07/29 A/P CT revealed no acute abnormalities; no obstruction PCR stool/C. difficile ordered, pending Suspect viral GI illness IV antiemetics as needed Monitor electrolytes (3) DM II (diabetes mellitus, type II), controlled: Plan: Last A1c at 7.0% on 04/26/2024 Patient is normally on Lantus 10u HS Will dose reduce to Lantus 7 u HS given poor oral intake SSI with target BSG range 120-160mg/dL, CF 40, carb ratio 15 T2DM diet BSG ACHS Adjust regimen as needed AM A1c (4) CKD (chronic kidney disease) stage 4, GFR 15-29 ml/min: Plan: BUN 39, creatinine 2.00, EGFR 22.9 on arrival Avoid nephrotoxic agents for possible Patient reports decreased urinary frequency, which may be due to poor oral intake or ESRD Continue to monitor fluid intake, and adjust regimen with Bumex as needed (5) Heart failure with mildly reduced ejection fraction (HFmrEF): Plan: Last echocardiogram on 06/27/2024 revealed LVEF at 40-45% BNP 1158 on arrival (most recently 1445 on 07/25) (6) Atrial fibrillation, permanent: Plan: Continue Eliquis, carvedilol Plan Disposition: Admit to [facility] telemetry DNR/DNI Heart healthy, T2DM diet (1500 mL fluid restriction) VTE PPx: Eliquis History of Present Illness Chief Complaint: Dehydration Primary Care Provider: Ebony Alvarenga DO Ban is a pleasant 83-year-old female with PMH of NSTEMI, atrial fibrillation (on apixaban), HFrEF, urinary incontinence, osteoarthritis, T2DM, depression, HLD, CKD, restrictive lung disease, breast cancer, CAD, PAD, hypothyroidism, and GERD. She presented on 07/29 with her daughter after recent discharge from [facility]. Patient wanted to come to [facility]. Patient reports that she started to have N/V/D on 07/25. She has had difficulty taking her pills since this time. She also has GOMEZ. She went to [facility] on the morning of Saturday 07/28 and was told she had a right-sided pleural effusion; h/o thoracentesis on 07/02 (1.5L drained; cytology negative for malignancy at that time). When [facility] recommended transfer to [facility], she said she would prefer to come here. She did receive her p.o. Bumex this morning and was able to tolerate. She reports her diarrhea has been liquidy in consistency; no blood in her stool. She has not been eating since . Not tolerating solids, and barely tolerating fluids; she does report that she can take a few sips of water. Reports no recent weight gain, and even reports she might of lost several pounds over the past few days. She is having abdominal cramps due to her dry heaves. No SOB at rest, but ongoing GOMEZ. She is unable to lie flat on her back. She is following with wound care for a left lateral malleolus ulcer. She denies smoking, tobacco use, recent alcohol use. Patient is hypertensive 163/82 at time of admission; SpO2 96% on RA, vitals otherwise stable. ED course: ROS: Patient endorses hot/cold intolerance, lightheadedness when getting up, mild IRVIN, GOMEZ, N/V/D (not tolerating solids, only mild fluids / sips of water), abdominal soreness (which patient attributes to dry heaving), and decreased urinary frequency (which patient reports is unusual for her). Patient denies fever, chills, night-sweats, chest pain, pleuritic CP, SOB at rest, or blood in the urine/stool. Allergies Allergy/AdvReac Type Severity Reaction Status Date / Time adhesive Allergy Intermediate REDNESS Verified 07/29/24 17:05 AND IRRITATION FROM PAIN PATCH, TAPE latex Allergy Intermediate ALLERGIC Verified 07/29/24 17:05 TO LATEX TAPE/RASH/ITCHING morphine Allergy Intermediate swelling Verified 07/29/24 17:05 nausea vomiting olmesartan Allergy Unknown UNKNOWN Verified 07/25/24 13:55 benzonatate AdvReac Intermediate confusion Verified 07/25/24 13:55 [From Tessalon Perles] dulaglutide [From Trulicity] AdvReac Intermediate AFFECTS Verified 07/29/24 17:05 MUSCLES exenatide [From Byetta] AdvReac Intermediate Diarrhea Verified 07/29/24 17:05 ezetimibe AdvReac Intermediate MUSCLE Verified 07/25/24 13:55 ACHES glipizide AdvReac Intermediate Diarrhea Verified 07/29/24 17:05 glyburide AdvReac Intermediate Diarrhea Verified 07/29/24 17:05 lisinopril AdvReac Intermediate LIGHTHEADED Verified 07/29/24 17:05 AND DIZZY losartan AdvReac Intermediate dizziness Verified 07/25/24 13:55 metformin AdvReac Intermediate Diarrhea Verified 07/29/24 17:05 pioglitazone AdvReac Intermediate DIARRHEA Verified 07/29/24 17:05 NAUSEA sitagliptin [From Januvia] AdvReac Intermediate Diarrhea Verified 07/29/24 17:05 Sdvuxda-RIA-NjK Reductase AdvReac Intermediate myalgias Verified 07/29/24 17:05 Inhibitor and [Vtqxqzg-Nmh-Jgt Reductase weakness Inhibitor] aspirin AdvReac Mild GI SYMPTOMS Verified 07/25/24 13:55 Home Medications Medication Instructions Recorded Confirmed Type vitamin E 268 mg (400 unit) capsule 400 unit PO QAM 03/29/20 07/29/24 History cholecalciferol (vitamin D3) 25 1,000 unit PO QAM 05/17/21 07/29/24 History mcg (1,000 unit) capsule trazodone 50 mg tablet 50 mg PO HS PRN insomnia #90 tabs 06/23/22 07/29/24 Rx flash glucose scanning reader #6 ea 07/24/23 06/27/24 Rx (FreeStyle [place] 14 Day [place]) apixaban 2.5 mg tablet (Eliquis) 2.5 mg PO BID #180 tabs 10/30/23 07/29/24 Rx ranolazine 500 mg tablet,extended 500 mg PO BID #180 tabs 11/14/23 07/29/24 Rx release,12 hr magnesium oxide 400 mg (241.3 mg 400 mg PO QPM #30 tabs 01/22/24 07/29/24 Rx magnesium) tablet insulin syringe-needle U-100 0.3 #100 ea 01/23/24 06/27/24 Rx mL 31 gauge x 5/16" pantoprazole 40 mg tablet,delayed 40 mg PO BID #180 tabs 01/30/24 07/29/24 Rx release (Protonix) spironolactone 50 mg tablet 50 mg PO DAILY #90 tabs 04/29/24 07/29/24 Rx flash glucose sensor (FreeStyle #1 ea 05/09/24 06/27/24 Rx Rossy 14 Day Sensor kit) calcitriol 0.25 mcg capsule 0.25 mcg PO 3XWK #12 caps 05/20/24 07/29/24 Rx (Rocaltrol) levothyroxine 75 mcg tablet 75 mcg PO QAM #90 tabs 05/31/24 07/29/24 Rx ondansetron HCl 8 mg tablet 8 mg PO Q8H PRN nausea and 05/31/24 07/29/24 Rx vomiting #30 tabs sertraline 100 mg tablet 100 mg PO DAILY #90 tabs 06/12/24 07/29/24 Rx insulin aspart U-100 100 unit/mL See Rx Instructions .Route 07/04/24 07/29/24 Rx subcutaneous solution (Novolog .COMPLEX #0 mL U-100 Insulin aspart) insulin glargine 100 unit/mL 10 unit (0.1 mL) subcut HS #0 mL 07/04/24 07/29/24 Rx subcutaneous solution (Lantus U-100 Insulin) potassium chloride 20 mEq 20 meq PO BID17 #0 tabs 07/04/24 07/29/24 Rx tablet,extended release(part/cryst) ticagrelor 90 mg tablet (Brilinta) 90 mg PO BID #0 tabs 07/04/24 07/29/24 Rx bumetanide 1 mg tablet 2 mg (2 x 1 mg) PO BID17 #120 tabs 07/25/24 07/29/24 Rx carvedilol 3.125 mg tablet 3.125 mg PO BID 07/29/24 07/29/24 History gabapentin 100 mg capsule 100 mg PO HS PRN Leg pain 07/29/24 07/29/24 History polyethylene glycol 3350 17 gram 17 g PO HS PRN Bowel movements 07/29/24 07/29/24 History oral powder packet (Miralax) sennosides 8.6 mg tablet (Senokot) 8.6 mg PO HS PRN Bowel movements 07/29/24 07/29/24 History Past Med/Surg History Problem List (Updated 07/29/24 @ 17:59 by Get Cano MD) Nausea, vomiting, and diarrhea Pleural effusion, right (Acute) Non-ST elevation [place] (NSTEMI) Atrial fibrillation, permanent Heart failure with mildly reduced ejection fraction (HFmrEF) (Acute) Anemia Unstable angina Ambulatory dysfunction (Acute) Urinary incontinence Hematuria Osteoarthritis Hx of atrioventricular node ablation Tricuspid regurgitation Statin myopathy Antiplatelet or antithrombotic long-term use Hyperlipidemia Depression DM II (diabetes mellitus, type II), controlled Esophageal spasm Valvular heart disease Mitral regurgitation Occlusion and stenosis of unspecified carotid artery (Acute) Right rotator cuff tear CKD (chronic kidney disease) stage 4, GFR 15-29 ml/min (Acute) Restrictive lung disease Vitamin D deficiency Chronic anticoagulation (Acute) Myalgia due to statin Stenosis of left internal carotid artery S/P carotid endarterectomy Left side 09/27/21 Malignant neoplasm of central portion of right breast in female, estrogen receptor positive (Chronic 08/17/21) PAF (paroxysmal atrial fibrillation) Breast cancer, right Right breast mastectomy 09/17/21 at [facility] Chronic combined systolic and diastolic CHF (congestive heart failure) (Chronic) EF 40% per 10/16/21 ECHO Pulmonary hypertension RVSP 50-60mmHg on 12/2023 ECHO S/P coronary artery stent placement (10/2018) NATY prox mid LAD Ischemic cardiomyopathy Insomnia Biventricular ICD (implantable cardioverter-defibrillator) in place (04/30/20) Medtronic implanted 04/30/2020. Capped right ventricular pacing lead Last check 09/2021 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) Secondary hyperparathyroidism of renal origin Anemia due to chronic kidney disease CAD (coronary artery disease) F/U DR CUEVA S/p NATY x 1 to Cx in 2019; NATY to ostial LM 01/10/20 Chronic obstructive pulmonary disease, unspecified Breathing stable PAD (peripheral artery disease) S/p PC MAINTENANCE TECHNICIAN and stenting of right SFA, and PC MAINTENANCE TECHNICIAN of left SFA and common femoral artery Spondylosis (Acute) GERD (gastroesophageal reflux disease) Hypothyroidism Left bundle branch block Bilateral carotid artery stenosis H/o bilateral CEAs in 2016 Per 07/2021 vascular note- carotid ultrasound from office visit showed patent right CEA with velocities suggesting 50-59% stenosis restenosis Patent left CEA with velocities suggesting 99% restenosis - had re-do of left CEA 09/27/21 Medical History Acute exacerbation of CHF (congestive heart failure) Orthostasis Acute kidney injury superimposed on chronic kidney disease Nausea and vomiting after administration of anesthetic agent severe PONV s/p Left carotid surgery 09/27/21 at [facility] History of CVA (cerebrovascular accident) Had RUE weakness and numbness after 09/17/21 breast surgery- CT scan of head negative; unable to do MRI due to ICD Per PCP records 10/22/21= "[place] her post op RUE sx related to possible small stroke/TIA" Subclavian artery stenosis Rheumatoid arthritis No medications Followed with rheum in the past- no recent issues Chronic kidney disease STAGE IV-F/U DR SALINAS Diabetes mellitus, type 2 Glucose fluctuates SOB (shortness of breath) on exertion DVT (deep venous thrombosis) LOWER LEG 2019 Aortic stenosis, severe S/p TAVR 10/2019 NSTEMI (non-ST elevated myocardial infarction) Most recent 12/2019 (mild per patient) Surgical History S/P right knee arthroscopy (04/2024) S/P AV hiren ablation (06/30/22) H/O heart artery stent H/O colonoscopy History of left-sided carotid endarterectomy (09/27/21) redo L CEA, Dr Bateman Status post partial mastectomy of right breast (09/17/21) 09/17/21 - Done under [place] with LMA #4. Atraumatic LMA insertion. Magnet placed secondary to pacemaker. Right Breast Partial Mastectomy with [place] Rib[employer] Sweatband Operator Localization, Right Axillary [place] Lymph Node Biopsy(Right) - Hua Acosta, DO History of cardiac cath TOTAL 6? STENTS- 2018 and 2019 S/P coronary artery stent placement (10/2017) NATY to mid LAD S/P carotid endarterectomy B/l 2015 S/P thoracentesis (03/2020) b/l d/t CHF S/P angioplasty (02/03/21) PC MAINTENANCE TECHNICIAN L SFA History of oophorectomy History of hysterectomy History of cholecystectomy H/O: section History of cataract surgery right and left History of appendectomy Family History Daughter Coronary heart disease Cardiac stent Diabetes Mother , 83yo Diabetes Family history of hypercholesterolemia Myocardial infarction Hypertension Stroke Brother Colorectal cancer 1/2 brother Father , Accident in war Brother Diabetes 1/2 brother;Complications of DM Family/Other Myocardial infarction 1/2 sister Son Coronary heart disease Cardiac stent Hypertension Other Pacemaker Denies family history of Ovarian cancer Prostate cancer Breast cancer Social History Smoking Status: Never smoker Second Hand Exposure: No; Do You Dip or Chew Tobacco: No; Hx Alcohol Use: No Hx Substance Use: No Preferred Language: Faroese Communication Ability: Effective Visual Impairment: No Limitations Hearing Ability: Hard of Hearing Accountant Bookkeeper Required: No Beliefs That Will Affect Care: None marital status: / marital status details: passed 2000 Current Living Situation: Alone current occupational status: retired 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 How many Children do You have: 2 Feels Safe at Home: Yes Diet: regular caffeine: Yes (1 cup/day) during the past year weight has: remained stable Dental Care, Regularly: No Physical Activity Frequency: Daily Seatbelt Use: always Assistive Devices: Cane and Walker Review of Systems Review of Systems: See HPI above Physical Exam Physical Exam: General: no acute distress; pleasant affect; non-toxic appearing; well- nourished; cooperative HEENT: normocephalic, atraumatic; no scleral icterus; PERRLA; vision intact; hard of hearing Neck: supple; no lymphadenopathy; trachea midline Skin: warm, dry without signs of tenting; no cyanosis; no rashes, bruising, lesions, or erythema noted CV: chest wall NTP; RRR; S1/S2 normal; no murmurs/rubs/gallops; pulses intact and symmetric at radial, DP, and PT Lungs: no acute respiratory distress; symmetrical chest wall expansion; clear breath sounds across all lung humphries w/o adventitious sounds; no wheezing ABD: Soft, NTP; BS present; no rebound/guarding; no distention MSK: no tics or fasciculations; +1 pitting edema noted around the ankles bilaterally, nonerythematous; left lateral malleolus with dressed ulcer Neuro: A&Ox3; normal mood and affect; fluent speech; no focal deficits; sensation grossly intact in the LEs b/l Results & Data Results & Data Vital Signs (Past 12 Hours) Vital Signs Temp Pulse Pulse Resp BP BP Pulse Ox 07/29/24 14:08 76 24 170/85 H 95 07/29/24 13:55 73 07/29/24 11:50 36.8 C 76 16 167/94 H 95 O2 Del Method 07/29/24 14:08 Room Air 07/29/24 13:55 07/29/24 11:50 Room Air Laboratory Results Abnormal lab results 07/29/24 07/29/24 Range/Units 12:04 14:17 RBC 4.05 L (4.20-5.40) M/uL MCHC 31.8 L (32.0-36.0) g/dL RDW Std Deviation 54.0 H (36.4-46.3) fL RDW Coeff of Manuela 15.8 H (11.5-14.5) % [place] # (Auto) 0.90 H (0.11-0.59) K/uL Sodium 135 L (136-145) mmol/L Chloride 95 L (98-107) mmol/L Anion Gap 13 H (3-11) BUN 39 H (6-23) mg/dl Creatinine 2.00 H (0.6-1.2) mg/dl Glucose 199 H (70-99(Fasting)) mg/dl Alkaline Phosphatase 110 H (34-104) U/L Troponin I High Sens 42.4 H 42.4 H (0-14) pg/ml B-Natriuretic Peptide 1158 H (0-100) pg/ml Diagnostic Findings Chest X-Ray 07/29/24 11:59 XR chest 1V not portable CLINICAL HISTORY: Chest pain, nonspecific TECHNIQUE: Single frontal radiograph of the chest was obtained. Comparison: Comparison is made to chest radiograph 07/01/2024 FINDINGS: Pacemaker defibrillator is seen. Cardiomegaly is noted. The aortic arch is calcified. Aortic valvular prosthesis is seen. Right lower lung airspace opacity is seen. Trace left and moderate right pleural effusion is seen. IMPRESSION: Moderate right and trace left pleural effusion. This represents increased from prior exam. ACT 112: Negative or not required by law. Electronically signed by: Gato Nagel M.D. 07/29/2024 1:30 PM Abdomen/Pelvis CT 07/29/24 14:32 CT abd pelvis wo con CLINICAL HISTORY: nv TECHNIQUE: Helical axial images of the abdomen and pelvis were obtained. Automated dose lowering techniques and/or adjustment according to patient size were utilized for this exam. This exam was performed without intravenous contrast. CT DOSE: 2085.9 mGy.cm COMPARISON: Comparison is made to CT abdomen pelvis 01/31/2024 FINDINGS: Lower chest: Partial evaluation of moderate right and small left pleural effusion. Biatrial enlargement and aortic valvular prosthesis are seen. Liver: Unremarkable. No focal lesions are seen. Gallbladder and biliary tree: Patient is status post cholecystectomy. No intra- or extrahepatic biliary ductal dilation. Pancreas: Unremarkable, no focal lesions. Spleen: Unremarkable. Adrenals: Unremarkable. Kidneys and ureters: Unremarkable. Bladder: Limited evaluation due to underdistention. Reproductive organs: Unremarkable. Bowel: Unremarkable. Lymph nodes Retroperitoneal: Unremarkable. Pelvic: Unremarkable. Mesenteric: Unremarkable. Peritoneum: Trace free fluid in the pelvis is likely physiologic. Vessels: Atherosclerotic calcifications are seen. Abdominal wall: Unremarkable. Bones: Degenerative changes in the visualized spine. Compression deformity of L1 is unchanged. IMPRESSION: 1. No acute abnormalities to explain nausea and vomiting. In particular no evidence of bowel obstruction. 2. Moderate right and small left pleural effusion. Additional incidental findings as above. ACT 112: Negative or not required by law. Electronically signed by: Gato Nagel M.D. 07/29/2024 3:[address] 07/29/24 14:32 CT OF THE HEAD WITHOUT CONTRAST CLINICAL HISTORY: Headache. COMPARISON STUDY: Head CT February 13, 2024. TECHNIQUE: Helical axial images of the head were obtained without IV contrast. Automated exposure control was utilized for the study. A dose lowering technique was utilized adhering to the principles of ALARA. FINDINGS: No acute intracranial hemorrhage, midline shift or mass effect is present. The ventricular system is unremarkable. The basal cisterns are patent. No extra-axial collections are present. There are no findings to suggest acute dural sinus thrombosis or acute territorial infarct. No significant calvarial abnormalities are present. Visualized portions of the sinuses and mastoid air cells are clear. IMPRESSION: No acute intracranial findings. ACT 112: Negative or not required by law. Electronically signed by: Cali Jacobo M.D. 07/29/2024 3:10 PM ECG Additional Comments: ECG revealed ventricular paced rhythm at 71 bpm; QTc 519 (caution use of QT prolonging agents) Code Status & VTE Plan Code Status DNR/DNI VTE Prophylaxis Plan VTE Prophylaxis will be ordered: Yes Supervising Physician Co-Signing Physician Notes Patient seen and examined, chart reviewed, case discussed with Sid Munoz PA-C and I agree with the assessment and plan as above except as otherwise noted Labs and images reviewed 83-year-old female with a past medical history of CHF with midrange ejection fraction, CKD, diuretic resistance, recurrent pleural effusions previously transudative on thoracentesis who events with recurrent dyspnea on exertion, shortness of breath, moderate right and small left pleural effusion increased from prior. She is recommended for admission for nausea/vomiting, and acute on chronic CHF CThead: No acute finding CTA/P: Moderate right and small left pleural effusion. No intra-abdominal acute abnormalities. Chest x-ray: Increased pleural effusions compared to prior Seen at bedside. She reports her breathing has generally not been good in the last few weeks although has not significantly worsened in the last 48 hours either. She was seen at [facility] for sudden onset of nausea/vomiting and some loose bowels. Nausea is actually improved today after getting an IV nausea medicine at [facility] yesterday but continues to be intermittently nauseous and is generally not feeling well. No abdominal pain. No cough. No dysuria. Lungs are diminished in the bases bilaterally, clear in the superior humphries. Abdomen is soft and nontender. JVD is present. Nausea/vomiting No acute intra-abdominal abnormalities on CT No leukocytosis No indication for antibiotics on admission, will continue symptomatic control Suspect viral GI illness, nausea is actually slowly improving at time of bedside assessment. Patient has had completely liquid diarrhea and has multiple hospital exposures; will test for C. difficile Acute on chronic CHF with midrange ejection fraction EF 40-45% History of recurrent pleural effusions, presents with recurrent effusions BNP 1158 Additionally with a history of mitral regurgitation, per [facility] thoracic surgery she is not a valve replacement surgical candidate SGLT2/HERMELINDO/ARB/ARNI previously deferred due to renal dysfunction With bilateral pleural effusion suspect to be related to heart failure. Did have a history of right-sided thoracentesis 07/01 with 1.5 L of fluid removed, transudative and negative for malignancy at that time. Pulmonary consultation deferred as prior taps have been transudative, repeat thoracentesis likely to have reaccumulation of fluid as this is due to her underlying CHF and renal dysfunction. Will treat with diuresis on admission, agree with Bumex and potassium supplementation as noted. BMP daily ESRD Has deferred dialysis in the past. Currently potassium is normal, she is not an uric/oliguric. Goals of care are to complete ADLs and run errands but has been noted to have frequent hospitalizations diuretic resistance in the past nearing end-stage renal disease. Palliative was consulted last hospitalization and patient was transiently agreeable to hospice but changed her mind about this once arriving at [facility]. Was feeling well so wanted to continue routine treatment. Creatinine 2.0 on admission Baseline creatinine recent range 1.852.35 Bumex as noted Paroxysmal A-fib s/p ablation. - Continue Eliquis and carvedilol EKG on admission ventricular paced PG Care Time/CCT Total # of Minutes Spent Total Time Spent with Patient: Total time spent is greater than 50% in coordination of care (as documented) at patient's floor/unit and/or counseling patient: C[place] [address] INT INP/OBS CARE 3/75MIN Patient Type Established History Comprehensive Exam Comprehensive Medical Decision Making High Complexity Diagnoses Pleural effusion, right J90 Nausea, vomiting, and diarrhea R11.2; R19.7 Controlled type 2 diabetes mellitus with diabetic nephropathy, with long-term current use of insulin E11.21; Z79.4 Diabetes mellitus complication detail: with nephropathy Diabetes mellitus complication status: with kidney complications Diabetes mellitus retirement insulin use: with superintendent marine oil terminal use CKD (chronic kidney disease) stage 4, GFR 15-29 ml/min N18.4 Heart failure with mildly reduced ejection fraction (HFmrEF) I50.22 Atrial fibrillation, permanent I48.21 (3) DM II (diabetes mellitus, type II), controlled Diabetes mellitus complication detail: with nephropathy Diabetes mellitus complication status: with kidney complications Diabetes mellitus retirement insulin use: with superintendent marine oil terminal use Qualified Code(s): E11.21 - Type 2 diabetes mellitus with diabetic nephropathy; Z79.4 - shelter (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
[2024-07-29 17:35] LABS: Magnesium 2.1 mg/dl (1.7-2.4)
[2024-07-29 17:36] LABS: Magnesium 2.1 mg/dl (1.7-2.4)
[2024-07-29] MEDS: BUMETANIDE 2 MG in SYRINGE 0 ML IV ONE (18:16)
[2024-07-29] MEDS ORDERED: GLUCOSE 40% GEL 15 GM TUBE PO PRN (19:21)
[2024-07-29] MEDS ORDERED: DEXTROSE 50% 50 ML SYRINGE IV PRN (19:21)
[2024-07-29] MEDS ORDERED: GLUCOSE 10 TAB/TUBE PO PRN (19:21)
[2024-07-29] MEDS ORDERED: SENNA 8.6 MG TAB PO PRN (19:21)
[2024-07-29] MEDS ORDERED: GLUCAGON FOR INJ 1 MG VIAL SQ PRN (19:21)
[2024-07-29] MEDS ORDERED: GABAPENTIN 100 MG CAP PO PRN (19:21)
[2024-07-29] MEDS ORDERED: CARBOHYDRATES FOR HYPOGLYCEMIA PO PRN (19:21)
[2024-07-29] MEDS ORDERED: ONDANSETRON INJ 2 MG/ML 2 ML VIAL IV PRN (19:21)
[2024-07-29] MEDS: APIXABAN 2.5 MG TAB PO SCH (21:08)
[2024-07-29] MEDS: carvediloL 3.125 MG TAB PO SCH (21:09)
[2024-07-29] MEDS: INSULIN ASPART PER UNIT CHARGE SC SCH (21:10)
[2024-07-29] MEDS: LANTUS PER UNIT CHARGE SQ SCH (21:11)
[2024-07-29] MEDS: MAGNESIUM OXIDE 400 MG TAB PO SCH (21:11)
[2024-07-29] MEDS: PANTOprazole 40 MG TAB PO SCH (21:12)
[2024-07-29] MEDS: RANOLAZINE 500 MG ER TAB PO SCH (21:12)
[2024-07-29] MEDS: TICAGRELOR 90 MG TAB PO SCH (21:13)
[2024-07-30 00:04] LABS: Adenovirus F 40/41 PCR Not Detected (NotDetected); Astrovirus PCR Not Detected (NotDetected); Campylobacter PCR Not Detected (NotDetected); Cryptosporidium PCR Not Detected (NotDetected); Cyclospora cayetanensis PCR Not Detected (NotDetected); Entamoeba histolytica PCR Not Detected (NotDetected); Enteroaggregative E.coli(EAEC) Not Detected (NotDetected); Enteropathogenic E.coli (EPEC) Not Detected (NotDetected); Enterotoxigenic E.coli (ETEC) Not Detected (NotDetected); Giardia lamblia PCR Not Detected (NotDetected); Norovirus GI/GII PCR Not Detected (NotDetected); Plesiomonas shigelloides PCR Not Detected (NotDetected); Rotavirus A PCR Not Detected (NotDetected); Salmonella PCR Not Detected (NotDetected); Sapovirus PCR Not Detected (NotDetected); Shiga-like Toxin E.coli (STEC) Not Detected (NotDetected); Shigella/Enteroinvasive E.coli Not Detected (NotDetected); Vibrio cholerae PCR Not Detected (NotDetected); Vibrio species PCR Not Detected (NotDetected); Yersinia enterocolitica PCR Not Detected (NotDetected)
[2024-07-30] MEDS: LEVOTHYROXINE SODIUM 75 MCG TABLET PO SCH (05:19)
[2024-07-30 06:38] LABS: Basophils # (auto) 0.04 K/uL (0.00-0.20); Basophils % (auto) 0.6 %; Eosinophils # (auto) 0.22 K/uL (0.00-0.50); Eosinophils % (auto) 3.4 %; Hematocrit (blood only) 35.9 % (37.0-47.0); Hemoglobin 11.3 g/dl (12.0-16.0); Immature Granulocytes # (auto) 0.01 K/uL (0.01-0.20); Immature Granulocytes % (auto) 0.2 %; Lymphocytes # (auto) 1.54 K/uL (1.20-3.40); Lymphocytes % (auto) 23.5 %; Mean Corpuscular Hemoglobin 29.6 pg (25.0-34.0); Mean Corpuscular Hgb Conc 31.5 g/dL (32.0-36.0); Mean Platelet Volume 10.7 fL (9.4-12.4); Monocytes # (auto) 0.93 K/uL (0.11-0.59); Monocytes % (auto) 14.2 %; Neutrophils # (auto) 3.82 K/uL (1.40-6.50); Neutrophils % (auto) 58.1 %; Platelet Count 222 K/uL (130-400); RDW Coefficient of Variation 15.7 % (11.5-14.5); RDW Standard Deviation 53.7 fL (36.4-46.3); Red Blood Count 3.82 M/uL (4.20-5.40); White Blood Count 6.56 K/ul (4.8-10.8)
[2024-07-30 07:00] LABS: BUN Creatinine Ratio 21.3 (10-20); Calcium 8.6 mg/dl (8.6-10.3); Creatinine Clr Calc Pharmacy 23.6 ml/min; Potassium 3.3 mmol/L (3.5-5.1)
[2024-07-30] MEDS: BUMETANIDE 2 MG in SYRINGE 0 ML IV SCH (07:32)
[2024-07-30] MEDS: SERTRALINE HCL 100 MG TABLET PO SCH (07:32)
[2024-07-30] MEDS: POTASSIUM CHLORIDE CRTAB 20 MEQ TABCR PO SCH ×2 (08:18→20:45)
[2024-07-30] MEDS: POTASSIUM CHLORIDE CRTAB 20 MEQ TABCR PO STA (08:55)
[2024-07-30] MEDS: hydrALAZINE 10 MG TAB PO SCH (08:55)
[2024-07-30] MEDS ORDERED: SPIRONOLACTONE 25 MG TAB PO SCH (09:00)
--- NOTE | 2024-07-30 11:14 | Hospitalist Progress Note ---
Date of Service July 30, 2024 Assessment & Plan (1) Acute on chronic systolic (congestive) heart failure: Plan: Known ejection fraction of 40%. Bilateral pleural effusions present on admission, right greater than left. She recently had elective right thoracentesis done and does not want to have this repeated. Will treat with parenteral diuresis and she will need serial chest x-rays as an outpatient. Monitor intake and output. (2) Pleural effusion, right: Plan: Due to CHF. She will need serial outpatient chest x-rays until resolved. She recently had a right thoracentesis performed and does not wish to have this repeated. (3) Uncontrolled hypertension: Plan: Hydralazine added. Adjust dosage as needed (4) DM II (diabetes mellitus, type II), controlled: Plan: ADA diet. Basal insulin therapy. Sliding scale coverage. (5) CKD (chronic kidney disease) stage 4, GFR 15-29 ml/min: Plan: Monitor intake and output. Serial labs (6) Atrial fibrillation, permanent: Plan: Stable. Continue Eliquis, carvedilol. Telemetry (7) S/P TAVR (transcatheter aortic valve replacement): Plan: Normal function on most recent echo (8) CAD (coronary artery disease): Plan: History of multiple PCI procedures, most recently involving right coronary artery in June of this year. Currently stable. Continue current medical management. Plan Hopeful discharge to home in 48 to 72 hours Admission and Anticipated Discharge Date Admission Date: July 29, 2024 Subjective Alert and oriented. No distress. She states she has urinated multiple times with parenteral Bumex. She appears to have acute on chronic exacerbation of her systolic CHF. Also, she has uncontrolled hypertension. Hydralazine has been started. Potassium has dropped to 3.3 with diuresis. Oral potassium replacement has been increased. Creatinine 2.0 on admission and down to 1.7 today, July 30. Will follow. She is on room air. Recent cardiac echo reveals ejection fraction of 40%. Review of Systems 2 Review of Systems: Constitutionalno fever or chills ENTno blurred vision, no double vision, no epistaxis, no sore throat Respiratoryno cough, no wheezing. Dyspnea on exertion Cardiacno palpitations, no chest pain, no syncope Bebo nausea, vomiting, diarrhea, melena, hematochezia GUno urinary retention, no urinary incontinence, no dysuria, no hematuria Musculoskeletalno joint pain, no muscle tenderness Skinno bruising, no rashes, no pruritus Neurono isolated weakness, no paresthesia Psychno depression, no anxiety Physical Exam 2 Physical Exam: General-alert and oriented x3, no fever, no chills HEENT-head atraumatic and normocephalic, pupils equal and reactive to light, extraocular muscles intact Neck-no lymphadenopathy or thyromegaly, trachea midline Chest-diminished breath sounds and dullness at the right base. Bibasilar inspiratory rales. No wheezing Cardiac-regular rate and rhythm, normal S1 and S2 Abdomen-normal bowel sounds, no hepatosplenomegaly Extremities-no cyanosis, clubbing. Mild bilateral lower extremity edema below the knees Neuro-cranial nerves II through XII intact, motor and sensory function within normal limits, strength symmetrical, no focal deficits Psych-normal affect, normal mood Results & Data Results & Data Vital Signs (Past 12 Hours) Vital Signs Temp Pulse Pulse Resp BP Pulse Ox O2 Del Method 07/30/24 08:13 36.6 C 70 20 172/94 H 94 Room Air 07/30/24 07:31 36.4 C L 72 20 137/70 99 Room Air 07/30/24 07:29 Nasal Cannula 07/30/24 07:02 71 07/30/24 05:29 91 Nasal Cannula 07/30/24 02:52 36.4 C L 72 18 149/74 H 91 Room Air O2 Flow Rate 07/30/24 08:13 07/30/24 07:31 07/30/24 07:29 2 07/30/24 07:02 07/30/24 05:29 0 07/30/24 02:52 Laboratory Results 07/30/24 06:02 07/30/24 06:02 PG Care Time/CCT Total # of Minutes Spent Total Time Spent with Patient: Total time spent is greater than 50% in coordination of care (as documented) at patient's floor/unit and/or counseling patient: Coding Level of Care Code 61871 SUB INP/OBS CARE 3/50MIN Diagnoses Acute on chronic systolic (congestive) heart failure I50.23 Pleural effusion, right J90 Uncontrolled hypertension I10 Controlled type 2 diabetes mellitus with diabetic nephropathy, with long-term current use of insulin E11.21; Z79.4 Diabetes mellitus alf insulin use: with watermaster use Diabetes mellitus complication status: with kidney complications Diabetes mellitus complication detail: with nephropathy CKD (chronic kidney disease) stage 4, GFR 15-29 ml/min N18.4 Atrial fibrillation, permanent I48.21 S/P TAVR (transcatheter aortic valve replacement) Z95.2 CAD (coronary artery disease) I25.10 (4) DM II (diabetes mellitus, type II), controlled Diabetes mellitus watermaster insulin use: with watermaster use Diabetes mellitus complication status: with kidney complications Diabetes mellitus complication detail: with nephropathy Qualified Code(s): E11.21 - Type 2 diabetes mellitus with diabetic nephropathy; Z79.4 - terminal system operator (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
[2024-07-30] MEDS: traZODone HCL 50 MG TAB PO PRN (20:47)
[2024-07-31 06:46] LABS: BUN Creatinine Ratio 18.6 (10-20); Calcium 8.6 mg/dl (8.6-10.3); Creatinine Clr Calc Pharmacy 21.1 ml/min; Potassium 4.6 mmol/L (3.5-5.1)
--- NOTE | 2024-07-31 07:09 | XRay Report ---
XR chest 1V portable CLINICAL HISTORY: CHF TECHNIQUE: Single frontal radiograph of the chest was obtained. Comparison: Comparison is made to chest radiograph 07/29/2024 FINDINGS: Lines and tubes are stable. Calcified aortic knob is seen. Aortic valvular prosthesis is seen. Stable right airspace opacities. Stable moderate right pleural effusion. Likely trace left pleural effusion . IMPRESSION: Stable moderate right pleural effusion with underlying airspace opacities. These are unchanged from p rior exam. ACT 112: Negative or not required by law. Electronically signed by: Gato Nagel M.D. 07/31/2024 7:07 AM
[2024-07-31] MEDS: POTASSIUM CHLORIDE CRTAB 20 MEQ TABCR PO SCH (08:29)
[2024-07-31] MEDS: hydrALAZINE HCL 25 MG TAB PO SCH (08:48)
--- NOTE | 2024-07-31 11:41 | Hospitalist Progress Note ---
Date of Service July 31, 2024 Assessment & Plan (1) Acute on chronic systolic (congestive) heart failure: Plan: Known ejection fraction of 40%. Bilateral pleural effusions present on admission, right greater than left. She recently had elective right thoracentesis done and does not want to have this repeated. Will treat with parenteral diuresis and she will need serial chest x-rays as an outpatient. Monitor intake and output. (2) Pleural effusion, right: Plan: Due to CHF. She will need serial outpatient chest x-rays until resolved. She recently had a right thoracentesis performed and does not wish to have this repeated. Repeat chest x-ray again today, July 31, reveals persistence of right lower lobe pleural effusion. Chest CT scan ordered and pending (3) Uncontrolled hypertension: Plan: Hydralazine added. Dosage uptitrated today, July 31. Continue carvedilol (4) DM II (diabetes mellitus, type II), controlled: Plan: ADA diet. Basal insulin therapy. Sliding scale coverage. (5) CKD (chronic kidney disease) stage 4, GFR 15-29 ml/min: Plan: Monitor intake and output. Serial labs (6) Atrial fibrillation, permanent: Plan: Stable. Continue Eliquis, carvedilol. Telemetry (7) S/P TAVR (transcatheter aortic valve replacement): Plan: Normal function on most recent echo (8) CAD (coronary artery disease): Plan: History of multiple PCI procedures, most recently involving right coronary artery in June of this year. Currently stable. Continue current medical management. Plan Await OT and PT assessments. She might need short-term SNF placement or rehab placement. Admission and Anticipated Discharge Date Admission Date: July 29, 2024 Subjective Alert and oriented. Chest x-ray today continues to show right sided effusion. Chest CT scan without contrast has been ordered. No contrast given due to renal insufficiency. OT and PT assessments requested. She may need short-term SNF placement. Hydralazine uptitrated today, July 31, for better blood pressure control. Potassium corrected up to 4.6. Oral potassium replacement decreased again to previous dosage, 20 mg twice daily. Recent cardiac echo revealed ejection fraction of 40%. Glucose stable at 87 this morning. Review of Systems 2 Review of Systems: Constitutionalno fever or chills ENTno blurred vision, no double vision, no epistaxis, no sore throat Respiratoryno cough, no wheezing. Dyspnea on exertion Cardiacno palpitations, no chest pain, no syncope Bebo nausea, vomiting, diarrhea, melena, hematochezia GUno urinary retention, no urinary incontinence, no dysuria, no hematuria Musculoskeletalno joint pain, no muscle tenderness Skinno bruising, no rashes, no pruritus Neurono isolated weakness, no paresthesia Psychno depression, no anxiety Physical Exam 2 Physical Exam: General-alert and oriented x3, no fever, no chills HEENT-head atraumatic and normocephalic, pupils equal and reactive to light, extraocular muscles intact Neck-no lymphadenopathy or thyromegaly, trachea midline Chest-diminished breath sounds and dullness at the right base. Bibasilar inspiratory rales. No wheezing Cardiac-regular rate and rhythm, normal S1 and S2 Abdomen-normal bowel sounds, no hepatosplenomegaly Extremities-no cyanosis, clubbing. Mild bilateral lower extremity edema below the knees Neuro-cranial nerves II through XII intact, motor and sensory function within normal limits, strength symmetrical, no focal deficits Psych-normal affect, normal mood Results & Data Results & Data Vital Signs (Past 12 Hours) Vital Signs Temp Pulse Pulse Resp BP Pulse Ox O2 Del Method 07/31/24 11:22 36.4 C L 72 18 150/75 H 92 Room Air 07/31/24 07:40 Room Air 07/31/24 07:29 36.3 C L 79 18 154/83 H 94 Room Air 07/31/24 06:56 71 07/31/24 02:54 36.3 C L 70 18 154/83 H 97 Room Air Laboratory Results 07/30/24 06:02 07/31/24 05:55 PG Care Time/CCT Total # of Minutes Spent Total Time Spent with Patient: Total time spent is greater than 50% in coordination of care (as documented) at patient's floor/unit and/or counseling patient: Coding Level of Care Code 17882 SUB INP/OBS CARE 3/50MIN Diagnoses Acute on chronic systolic (congestive) heart failure I50.23 Pleural effusion, right J90 Uncontrolled hypertension I10 Controlled type 2 diabetes mellitus with diabetic nephropathy, with long-term current use of insulin E11.21; Z79.4 Diabetes mellitus long term care phlebotomist insulin use: with fpc use Diabetes mellitus complication status: with kidney complications Diabetes mellitus complication detail: with nephropathy CKD (chronic kidney disease) stage 4, GFR 15-29 ml/min N18.4 Atrial fibrillation, permanent I48.21 S/P TAVR (transcatheter aortic valve replacement) Z95.2 CAD (coronary artery disease) I25.10 (4) DM II (diabetes mellitus, type II), controlled Diabetes mellitus long term care phlebotomist insulin use: with fpc use Diabetes mellitus complication status: with kidney complications Diabetes mellitus complication detail: with nephropathy Qualified Code(s): E11.21 - Type 2 diabetes mellitus with diabetic nephropathy; Z79.4 - laborer marine terminal (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
--- NOTE | 2024-07-31 11:46 | CT Scan Report ---
CT chest diagnostic wo con CLINICAL HISTORY: persistent right pleural effusion TECHNIQUE: Multidetector row helical CT of the chest was performed. Coronal and sagittal reformations were obtained. Automated dose lowering techniques and/or adjustment according to patient size were u tilized for this exam. CT DOSE: 481.81 mGy.cm Comparison: Comparison is made to CT chest 10/17/2018 FINDINGS: Lungs and pleura: Moderate right and small left pleural effusions are seen. There is associated atele ctasis. Heart and pericardium: Cardiomegaly is seen with biatrial enlargement. Aortic valvular prosthesis is seen. Vessels: Severe atherosclerotic changes in the aorta and coronary arteries. Pulmonary trunk measures 33 mm. Mediastinum and dane: Subcentimeter lymph nodes are seen. Chest wall and lower neck: Unremarkable. Abdomen: Unremarkable. Bones: Degenerative changes in the thoracic spine. IMPRESSION: Moderate right and small left pleural effusions, increased from prior exam. ACT 112: Negative or not required by law. Electronically signed by: Gato Nagel M.D. 07/31/2024 11:45 AM
[2024-07-31] MEDS: INFLUENZA VACC TS2024-25(65y+)/PF (IIV3) 0.5mL Syr IM ONE (20:55)
[2024-07-31] MEDS: ACETAMINOPHEN 325 MG TAB PO PRN (22:02)
[2024-08-01 08:11] LABS: Anion Gap 7 (3-11); BUN Creatinine Ratio 18.3 (10-20); Blood Urea Nitrogen 41 mg/dl (6-23); Calcium 8.9 mg/dl (8.6-10.3); Carbon Dioxide 30 mmol/L (21-32); Chloride 98 mmol/L (98-107); Creatinine Clr Calc Pharmacy 18.6 ml/min; Glucose 146 mg/dl (70-99(Fasting)); Sodium 135 mmol/L (136-145)
--- NOTE | 2024-08-01 08:17 | XRay Report ---
XR chest 1V portable CLINICAL HISTORY: Congestive heart failure. COMPARISON STUDY: Chest radiograph and chest CT July 31, 2024. FINDINGS: Left subclavian biventricular pacer/AICD is in place. Cardiomegaly with pulmonary edema are again noted. Moderate to large right and small left pleural effusions are similar to prior exam. Ass ociated right basilar opacity is present. There is no pneumothorax. IMPRESSION: 1. Cardiomegaly with persistent pulmonary edema. 2. Moderate to large right and small left pleural effusions. Associated right basilar opacity. ACT 112: Negative or not required by law. Electronically signed by: Cali Jacobo M.D. 08/01/2024 8:15 AM
--- NOTE | 2024-08-01 10:01 | Discharge Summary ---
Discharge Summary Date of Service August 01, 2024 Principal Dx & Hospital Course #1 = Principal Diagnosis (1) Acute on chronic systolic (congestive) heart failure: Known ejection fraction of 40%. Bilateral pleural effusions present on admission, right greater than left. She recently had elective right thoracentesis done and does not want to have this repeated. Treated while hospitalized with parenteral diuresis. She will need serial chest x-rays as an outpatient to monitor right pleural effusion until resolved. Monitor intake and output. (2) Pleural effusion, right: Due to CHF. She will need serial outpatient chest x-rays until resolved. She recently had a right thoracentesis performed and does not wish to have this repeated. Chest CT scan reveals no right lower lobe underlying mass. (3) Uncontrolled hypertension: Hydralazine added. Blood pressure is now well-controlled. Continue carvedilol (4) DM II (diabetes mellitus, type II), controlled: ADA diet. Basal insulin therapy. Sliding scale coverage. (5) CKD (chronic kidney disease) stage 4, GFR 15-29 ml/min: Monitor intake and output. Serial labs. Creatinine has risen to 2.2 from 1.7 with parenteral Bumex diuresis. (6) Atrial fibrillation, permanent: Stable. Continue Eliquis, carvedilol. Telemetry (7) S/P TAVR (transcatheter aortic valve replacement): Normal function on most recent echo (8) CAD (coronary artery disease): History of multiple PCI procedures, most recently involving right coronary artery in June of this year. Currently stable. Continue current medical management. Plan She refuses to consider SNF or rehab placement. She will go home today, August 01, with home health services. Continue hydralazine in addition to her other usual medications Admission HPI Per Admitting Provider Ban is a pleasant 83-year-old female with PMH of NSTEMI, atrial fibrillation (on apixaban), HFrEF, urinary incontinence, osteoarthritis, T2DM, depression, HLD, CKD, restrictive lung disease, breast cancer, CAD, PAD, hypothyroidism, and GERD. She presented on 07/29 with her daughter after recent discharge from [facility]. Patient wanted to come to [facility]. Patient reports that she started to have N/V/D on 07/25. She has had difficulty taking her pills since this time. She also has GOMEZ. She went to [facility] on the morning of Saturday 07/28 and was told she had a right-sided pleural effusion; h/o thoracentesis on 07/02 (1.5L drained; cytology negative for malignancy at that time). When [place] recommended transfer to [facility], she said she would prefer to come here. She did receive her p.o. Bumex this morning and was able to tolerate. She reports her diarrhea has been liquidy in consistency; no blood in her stool. She has not been eating since . Not tolerating solids, and barely tolerating fluids; she does report that she can take a few sips of water. Reports no recent weight gain, and even reports she might of lost several pounds over the past few days. She is having abdominal cramps due to her dry heaves. No SOB at rest, but ongoing GOMEZ. She is unable to lie flat on her back. She is following with wound care for a left lateral malleolus ulcer. She denies smoking, tobacco use, recent alcohol use. Patient is hypertensive 163/82 at time of admission; SpO2 96% on RA, vitals otherwise stable. ED course: ROS: Patient endorses hot/cold intolerance, lightheadedness when getting up, mild IRVIN, GOMEZ, N/V/D (not tolerating solids, only mild fluids / sips of water), abdominal soreness (which patient attributes to dry heaving), and decreased urinary frequency (which patient reports is unusual for her). Patient denies fever, chills, night-sweats, chest pain, pleuritic CP, SOB at rest, or blood in the urine/stool. Discharge Exam General-alert and oriented x3, no fever, no chills HEENT-head atraumatic and normocephalic, pupils equal and reactive to light, extraocular muscles intact Neck-no lymphadenopathy or thyromegaly, trachea midline Chest-diminished breath sounds and dullness at the right base. Bibasilar inspiratory rales. No wheezing Cardiac-regular rate and rhythm, normal S1 and S2 Abdomen-normal bowel sounds, no hepatosplenomegaly Extremities-no cyanosis, clubbing. Mild bilateral lower extremity edema below the knees Neuro-cranial nerves II through XII intact, motor and sensory function within normal limits, strength symmetrical, no focal deficits Psych-normal affect, normal mood Discharge Plan Discharge Items Patient Disposition: Home - Home Health Services Reason For Visit: R PLEURAL EFFUSION,N/V/D Discharge Diagnosis: Acute on chronic systolic congestive heart failure, uncontrolled hypertension, hypokalemia, bilateral pleural effusions Activity: Resume your previous activity Non-emergency contact: Primary Care Provider Call non-emergency contact if: you have any medication questions and your symptoms worsen Follow-up/Referrals: Ebony Alvarenga DO [Primary Care Provider] - Diet: Carb Consistent or DM2 and Heart Healthy Addtl Attending Provider Instructions: Hydralazine is new for blood pressure control. All other medications remain the same. A prescription for hydralazine has been sent to [facility] in [place] Pending Studies at Discharge: No Stand-Alone Forms: My Wine in Black, Smoking Cessation Medications and DC Order Prescriptions: New hydralazine 25 mg Tablet 25 mg PO TID Qty: 100 0RF Continued cholecalciferol (vitamin D3) 25 mcg (1,000 unit) capsule 1,000 unit PO QAM trazodone 50 mg tablet 50 mg PO HS PRN (Reason: insomnia) Qty: 90 1RF Eliquis 2.5 mg tablet 2.5 mg PO BID Qty: 180 3RF (DME) insulin syringe-needle U-100 0.3 mL 31 gauge x 5/16" syringe See Rx Instructions .Route Qty: 100 3RF Rx Instructions: test three times daily (DME) FreeStyle [place] 14 Day Sensor Kit See Rx Instructions .Route Qty: 1 5RF Rx Instructions: Testing BS 4-5 times per day calcitriol [Rocaltrol] 0.25 mcg capsule 0.25 mcg PO 3XWK Qty: 12 1RF Rx Instructions: MONDAY/MONDAY/MONDAY/ IN THE AM levothyroxine 75 mcg tablet 75 mcg PO QAM Qty: 90 1RF ondansetron HCl 8 mg tablet 8 mg PO Q8H PRN (Reason: nausea and vomiting) Qty: 30 0RF sertraline 100 mg tablet 100 mg PO DAILY Qty: 90 1RF ranolazine 500 mg tablet extended release 12 hr 500 mg PO BID Qty: 180 3RF (DME) FreeStyle Rossy 14 Day [place] Misc See Rx Instructions .Route Qty: 6 1RF Rx Instructions: Testing BS 4-5 times per day pantoprazole [Protonix] 40 mg tablet,delayed release (DR/EC) 40 mg PO BID Qty: 180 1RF spironolactone 50 mg tablet 50 mg PO DAILY Qty: 90 1RF bumetanide 1 mg tablet 2 mg PO BID17 Qty: 120 0RF vitamin E 400 unit capsule 400 unit PO QAM magnesium oxide 400 mg (241.3 mg magnesium) Tablet 400 mg PO QPM Qty: 30 0RF potassium chloride 20 mEq Tablet,Er Particles/Crystals 20 meq PO BID17 Qty: 0 0RF Brilinta 90 mg Tablet 90 mg PO BID Qty: 0 0RF insulin glargine [Lantus U-100 Insulin] 100 unit/mL Solution 10 unit subcut HS Qty: 0 0RF insulin aspart U-100 [Novolog U-100 Insulin aspart] 100 unit/mL Solution See Rx Instructions .ROUTE .COMPLEX Qty: 0 0RF Rx Instructions: --Goal BSG Range: Low 120 mg/dL, High 160 mg/dL --Correction Factor: 40 mg/dL/unit --Carbohydrate ratio = 15 g/unit --BSGs ACHS if eating, q6h if npo carvedilol 3.125 mg tablet 3.125 mg PO BID sennosides [Senokot] 8.6 mg tablet 8.6 mg PO HS PRN (Reason: Bowel movements) polyethylene glycol 3350 [Miralax] 17 gram powder in packet 17 g PO HS PRN (Reason: Bowel movements) gabapentin 100 mg capsule 100 mg PO HS PRN (Reason: Leg pain) Discharge Orders: Discharge Order- CHF (Routine); Ordered 08/01/24 Ordered By: Jose Forde Admission Data Admit Date/Time: 07/29/24 16:52 Attending Provider: Jose Forde Admit Provider: Kin Lopez Primary Care Provider: Ebony Alvarenga Other Providers: Kin Lopez Hospital Stay Data Consultations 07/29/24 15:45 ED Decision to Admit Stat Diagnostic Imagining Performed 07/29/24 14:32 CT abd pelvis wo con Stat CT head/brain wo con Stat 07/31/24 09:48 CT chest without contrast [CT chest diagnostic wo con] Urgent Pending Results Patient Have Any Pending Studies at Discharge: No Discharge Instructions Given to Patient (Per Discharging Provider) Hydralazine is new for blood pressure control. All other medications remain the same. A prescription for hydralazine has been sent to [facility] in [place] Total Time Total Time Spent Total Time Spent (In Minutes): 45 minutes Coding Level of Care Code 41391 INP/OBS DISCH >30 MIN Diagnoses Acute on chronic systolic (congestive) heart failure I50.23 Pleural effusion, right J90 Uncontrolled hypertension I10 Controlled type 2 diabetes mellitus with diabetic nephropathy, with long-term current use of insulin E11.21; Z79.4 Diabetes mellitus snf insulin use: with termite treater helper use Diabetes mellitus complication status: with kidney complications Diabetes mellitus complication detail: with nephropathy CKD (chronic kidney disease) stage 4, GFR 15-29 ml/min N18.4 Atrial fibrillation, permanent I48.21 S/P TAVR (transcatheter aortic valve replacement) Z95.2 CAD (coronary artery disease) I25.10
[2024-08-01 11:46] VITALS: RESP 16
[2024-08-01 14:48] VITALS: BP 128/78; PULSE 74; TEMP 97.7; O2SAT 96
== END 2024-08-01 17:46 | disposition home health service (06) | DRG 291 ==
LOC: ED 11:36 → 2W 16:52 → SUATTDRO 16:52 → 2W 19:19